=== PATIENT | female | born 1965 | race Caucasian/White ===

== ENCOUNTER 2016-12-18 16:56 | Emergency (ER) | payer MEDICARE, MEDICAID ==
[~2016-12-18] VITALS: Ht 154.9 cm; Wt 77.1 kg
[~2016-12-18 16:56] MED LIST: AGM875T PO; ALBU17AE3 IH; ALPR1T GT; ALPR1TAB2 PO; AMOX500C2 PO; ASEN10TA9 SL; ASP81TEC PO; ASPI325T32 PO; AZIT-21 PO; AZIT1PAC8 PO; AZIT250T5; AZTH250C PO; CEFU250T11 PO; CEPH-38 PO; CLON0.5T3 PO; CLON1TAB3 PO; CLON2TAB16; CODE120S3 PO; CYCL10TA9 PO; HYDR1TAB PO; LORA1TAB PO; METO-333 PO; NITR-65 PO; OMEP20CA12 PO; OXYC-188 PO; OXYC-465 PO; PANT40TA3; PRED5TAB; QTP25T PO; RAME8T PO; ZPR80C PO; [UNRECOGNIZED DRUG - CODE] PO; sleeping pill
--- NOTE | 2016-12-18 18:14 | ED Dyspnea ---
General Chief Complaint: Cough/Cold/Flu Symptoms Stated Complaint: RATTLING IN CHEST WHEN BREATHING/SOB Nursing Triage Note: PT C/O COUGH, SOA STARTING LAST NIGHT. Source of Information: Patient, RN Notes Reviewed Exam Limitations: No Limitations History of Present Illness Time Seen by Provider: 18:14 Initial Comments As above. (+) smoker. Actually wanted to go outside and smoke while back in an exam room. No known fever. Cough non-productive. Timing/Duration: 24 Hours Severity: Moderate Activities at Onset: None Prior Episodes/Possible Cause: Other (smoker) Modifying Factors: Worse With Activity, Worse With Coughing Associated Symptoms: Cough, Fever, Wheezing ("rattle") Allergies and Home Medications Allergies Coded Allergies: Sulfa (Sulfonamide Antibiotics) (Verified Allergy, Unknown, 04/18/06) hydrocodone (Verified Adverse Reaction, Unknown, SICK TO STOMACH, 02/02/14) Home Medications Albuterol Sulfate 8.5 Gm Hfa.aer.ad #1 1-2 PUFF IH Q4H PRN PRN SOA/COUGH/ WHEEZING Prescribed by: GABRIELA PRYOR on 12/18/161951 Prednisone 20 Mg Tab 5Days 30 MG PO BID Prescribed by: GABRIELA PRYOR on 12/18/161951 Constitutional: see HPINo fever Respiratory: see HPI cough dyspnea on exertion short of breath wheezing : No All Other Systems Reviewed Negative Unless Noted: Yes (Negative excepted noted.) Past Wezyqcv-Upseiy-Gdcqnx Hx Patient Social History Alcohol Use: Denies Use Recreational Drug Use: No Smoking Status: Current Everyday Smoker Type Used: Cigarettes Recent Foreign Travel: No Contact w/Someone Who Travel: No Recent Infectious Disease Expo: No Recent Hopitalizations: No Seasonal Allergies Seasonal Allergies: No Surgeries HX Surgeries: Yes (R THR, x 4) Surgeries: Section, 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, Joint Replacement Respiratory Hx Respiratory Disorders: Yes Respiratory Disorders: COPD Cardiovascular Hx Cardiac Disorders: Yes Cardiac Disorders: High Cholesterol Neurological Hx Neurological Disorders: No 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 System Hx 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 Disorders: No Sexually Transmitted Disease: No 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 Hx 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 Disorders: No Gastrointestinal Hx Gastrointestinal Disorders: No Musculoskeletal Hx Musculoskeletal Disorders: No Musculoskeletal Disorders: Arthritis, Scoliosis, Chronic Back Pain, Fractures Endocrine Hx Endocrine Disorders: No (maybe borderline DM) HEENT HX ENT Disorders: No (DENTURES) Cancer Hx Cancer: No Psychosocial Hx Psychiatric Problems: Yes Behavioral Health Disorders: Anxiety Integumentary HX Skin/Integumentary Disorder: No Blood Transfusions Hx Blood Disorders: No Adverse Reaction to a Blood Tr: No Family Medical History Significant Family History: No Pertinent Family Hx, Psychiatric Problems Physical Exam Vital Signs Vital Sign - Last 12Hours 12/18/16 12/18/16 12/18/16 17:12 17:30 20:06 Temp 98.4 Pulse 88 Resp 16 B/P 134/83 Pulse Ox 98 O2 Delivery Room Air Capillary Refill : Less Than 3 Seconds General Appearance: No Apparent Distress WD/WN HEENT: Normal ENT Inspection Neck: Normal Inspection Respiratory: No Respiratory Distress Decreased Breath Sounds Cardiovascular: Regular Rate, Rhythm Rectal: Deferred Neurologic/Psychiatric: Alert Oriented x3 No Motor/Sensory Deficits Normal Mood/Affect Skin: Warm/Dry Progress/Results/Core Measures Results/Orders Lab Results Laboratory Tests Test 12/18/16 18:29 Range/Units Basophils # (Auto) 0.0 0.0-0.1 10^3/uL Basophils (%) (Auto) 0 0-10 % Eosinophils # (Auto) 0.4 H 0.0-0.3 10^3/uL Eosinophils (%) (Auto) 5 0-10 % Hematocrit 42 35-52 % Hemoglobin 14.7 11.5-16.0 G/DL Lymphocytes # (Auto) 1.1 1.0-4.0 X 10^3 Lymphocytes (%) (Auto) 15 12-44 % Mean Corpuscular Hemoglobin 32 25-34 PG Mean Corpuscular Hemoglobin Concent 35 32-36 G/DL Mean Corpuscular Volume 91 80-99 FL Mean Platelet Volume 9.3 7.4-10.4 FL Monocytes # (Auto) 0.8 0.0-1.0 X 10^3 Monocytes (%) (Auto) 11 0-12 % Neutrophils # (Auto) 4.9 1.8-7.8 X 10^3 Neutrophils (%) (Auto) 69 42-75 % Platelet Count 217 130-400 10^3/uL Red Blood Count 4.62 4.35-5.85 10^6/uL Red Cell Distribution Width 12.5 10.0-14.5 % White Blood Count 7.1 4.3-11.0 10^3/uL My Orders Orders-ROYA,GABRIELA D DO Chest Pa/Lat (2 View) (12/18/16 18:12) Cbc With Automated Diff (12/18/16 18:12) Albuterol/Ipra Inhalation Soln (Duoneb I (12/18/16 19:45) Svn Sm Volume Nebulizer Rt-Rfs (12/18/16 19:33) Dexamethasone Pf Injection (Decadron Pf (12/18/16 19:45) Vital Signs/I&O Vital Sign - Last 12Hours 12/18/16 12/18/16 12/18/16 12/18/16 17:12 17:30 20:06 20:16 Temp 98.4 98.4 Pulse 88 94 Resp 16 16 B/P 134/83 Pulse Ox 98 99 O2 Delivery Room Air Blood Pressure Mean: 100 Progress Note : Progress Note Better p/ neb treatment Diagnostic Imaging Diagonstic Imaging: Xray Plain Films/CT/US/NM/MRI: chest (nothing acute) Departure Impression Impression: Primary Impression: Acute asthmatic bronchitis Additional Impression: Tobacco abuse Disposition: 01 HOME, SELF-CARE Condition: Stable Departure-Patient Inst. Decision time for Depature: 19:50 Referrals: ROMY PULIDO MD (PCP/Family) Primary Care Physician Patient Instructions: Acute Bronchitis, Adult (DC) Add. Discharge Instructions: All discharge instructions reviewed with patient and/or family. Voiced understanding. NEED TO STOP SMOKING! Scripts Prednisone 20 Mg Tab30 Mg PO BID 5 Days Ref 0 Prov:GABRIELA PRYOR DO 12/18/16 Albuterol Sulfate (Ventolin Hfa Common Canister)8.5 Gm Hfa.aer.ad1-2 Puff IH Q4H PRN SOA/COUGH/WHEEZING #1 INH Ref 0 Prov:GABRIELA PRYOR DO 12/18/16 GABRIELA PRYOR DO Dec 18, 2016 18:14
[2016-12-18 18:36] LABS: BASOPHILS % (AUTO) 0 % (0-10); EOSINOPHILS # (AUTO) 0.4 10^3/uL (0.0-0.3); EOSINOPHILS % (AUTO) 5 % (0-10); LYMPHOCYTES # (AUTO) 1.1 X 10^3 (1.0-4.0); LYMPHOCYTES % (AUTO) 15 % (12-44); MEAN CORPUSCULAR HEMOGLOBIN 32 PG (25-34); MEAN CORPUSCULAR HGB CONC 35 G/DL (32-36); MEAN CORPUSCULAR VOLUME 91 FL (80-99); MEAN PLATELET VOLUME 9.3 FL (7.4-10.4); MONOCYTES # (AUTO) 0.8 X 10^3 (0.0-1.0); MONOCYTES % (AUTO) 11 % (0-12); NEUTROPHILS # (AUTO) 4.9 X 10^3 (1.8-7.8); NEUTROPHILS % (AUTO) 69 % (42-75); PLATELET COUNT 217 10^3/uL (130-400); RED BLOOD COUNT 4.62 10^6/uL (4.35-5.85); RED CELL DISTRIBUTION WIDTH 12.5 % (10.0-14.5); WHITE BLOOD COUNT 7.1 10^3/uL (4.3-11.0)
--- NOTE | 2016-12-18 19:34 | Diagnostic Imaging Report ---
INDICATION: Cough. COMPARISON: 10/29/16. FINDINGS: Frontal and lateral views of the chest demonstrate clear lungs bilaterally. The heart size is normal. There is no pneumothorax. Osseous structures are normal. IMPRESSION: Negative chest. Dictated by: Dictated on workstation # [id number]
[2016-12-18] MEDS ORDERED: DEXAMETHASONE PF 10 MG/ML (DECADRON) VIAL IM ONE (19:45)
[2016-12-18] MEDS ORDERED: RT-ALBUTEROL/IPRATROPIUM 3 ML (DUONEB) VIAL INH ONE (19:45)
[2016-12-18] MEDS ORDERED: PRD20T PO (19:52)
[2016-12-18] MEDS ORDERED: RT-ALBUINH IH (19:52)
[2016-12-18 20:16] VITALS: BP 128/75
== END 2016-12-18 20:15 | disposition home or self-care (01) ==
LOC: EDUNIT# 16:56 → ER 16:58
DX: J45.909 Unspecified asthma, uncomplicated (principal); F17.210 Nicotine dependence, cigarettes, uncomplicated; J44.9 Chronic obstructive pulmonary disease, unspecified
CPT/HCPCS: 36415; 71020; 85025; 94640; 99282

== ENCOUNTER 2016-12-22 03:25 | Emergency (ER) | payer MEDICARE, MEDICAID ==
[~2016-12-22] VITALS: Ht 157.5 cm; Wt 79.4 kg
[~2016-12-22 03:25] MED LIST changes: +PRD20T PO; +RT-ALBUINH IH
[2016-12-22 03:39] LABS: BASOPHILS % (AUTO) 1 % (0-10); EOSINOPHILS # (AUTO) 0.5 10^3/uL (0.0-0.3); EOSINOPHILS % (AUTO) 6 % (0-10); LYMPHOCYTES # (AUTO) 3.3 X 10^3 (1.0-4.0); LYMPHOCYTES % (AUTO) 42 % (12-44); MEAN CORPUSCULAR HEMOGLOBIN 32 PG (25-34); MEAN CORPUSCULAR HGB CONC 36 G/DL (32-36); MEAN CORPUSCULAR VOLUME 90 FL (80-99); MEAN PLATELET VOLUME 9.6 FL (7.4-10.4); MONOCYTES # (AUTO) 0.6 X 10^3 (0.0-1.0); MONOCYTES % (AUTO) 8 % (0-12); NEUTROPHILS # (AUTO) 3.3 X 10^3 (1.8-7.8); NEUTROPHILS % (AUTO) 43 % (42-75); PLATELET COUNT 236 10^3/uL (130-400); RED BLOOD COUNT 5.09 10^6/uL (4.35-5.85); RED CELL DISTRIBUTION WIDTH 12.6 % (10.0-14.5); WHITE BLOOD COUNT 7.7 10^3/uL (4.3-11.0)
[2016-12-22] MEDS ORDERED: RX-NITROGLYCERIN 0.4 MG TAB BTL 25'S SL PRN (03:45)
[2016-12-22] MEDS ORDERED: ASPIRIN 81 MG CHEW (CHILDREN'S ASA) PO ONE (03:45)
[2016-12-22 03:55] LABS: INR 0.9 (0.8-1.4); PROTHROMBIN TIME PATIENT 12.1 SEC (12.2-14.7)
[2016-12-22 04:12] LABS: ALANINE AMINOTRANSFERASE 79 U/L (0-55); ALBUMIN 4.5 G/DL (3.2-4.5); AMYLASE 43 U/L (25-125); ANION GAP 13 MMOL/L (5-14); ASPARTATE AMINO TRANSFERASE 31 U/L (5-34); BILIRUBIN,TOTAL 0.5 MG/DL (0.1-1.0); BLOOD UREA NITROGEN 12 MG/DL (7-18); BUN/CREATININE RATIO 14; CALCIUM 9.7 MG/DL (8.5-10.1); CARBON DIOXIDE 20 MMOL/L (21-32); CHLORIDE 104 MMOL/L (98-107); CREATINE KINASE 63 U/L (29-168); CREATININE SERUM 0.85 MG/DL (0.60-1.30); GFR ESTIMATED > 60; GLUCOSE 165 MG/DL (70-105); LIPASE 57 U/L (8-78); MAGNESIUM 2.4 MG/DL (1.8-2.4); POTASSIUM 3.6 MMOL/L (3.6-5.0); SODIUM 137 MMOL/L (135-145); TOTAL PROTEIN 7.7 G/DL (6.4-8.2)
[2016-12-22 04:16] LABS: ALCOHOL < 10 MG/DL (<10)
[2016-12-22 04:21] LABS: TROPONIN I < 0.30 NG/ML (<0.30)
[2016-12-22] MEDS ORDERED: NS 100 ML (IVPB) BAG IV ONE (05:15)
[2016-12-22] MEDS ORDERED: IOHEXOL 350 MG/ML 150 ML (OMNIPAQUE 350) VIAL IV ONE (05:15)
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
[2016-12-22 05:55] VITALS: BP 122/67
--- NOTE | 2016-12-22 06:27 | Diagnostic Imaging Report ---
PROCEDURE: CT angiography of the chest with contrast. TECHNIQUE: Multiple contiguous axial images were obtained through the chest after uneventful bolus administration of intravenous contrast. Reconstructed CTA MIP acquisitions were also performed. INDICATION: Chest pain The aorta appears normal. There are no pulmonary emboli. Lungs are clear. There are no effusions or pneumothoraces. There is no hilar or mediastinal lymphadenopathy. IMPRESSION: Negative CTA chest. I agree with preliminary interpretation. Dictated by: Dictated on workstation # [id number]
--- NOTE | 2016-12-22 06:33 | Diagnostic Imaging Report ---
INDICATION: Chest pain. Portable chest 3:45 AM FINDINGS: There is scoliosis of the thoracic spine convex to the right. Heart size and pulmonary vascularity are normal. Lungs are clear. There are no effusions or pneumothoraces. IMPRESSION: No acute abnormalities in the chest. Dictated by: Dictated on workstation # [id number]
== END 2016-12-22 05:55 | disposition home or self-care (01) ==
LOC: EDUNIT# 03:25 → ER 03:27
DX: R07.89 Other chest pain (principal); F41.9 Anxiety disorder, unspecified; I10 Essential (primary) hypertension; J44.9 Chronic obstructive pulmonary disease, unspecified; F17.210 Nicotine dependence, cigarettes, uncomplicated
CPT/HCPCS: 36415; 71010; 71275; 80053; 80306; 80320; 82150; 82550; 82553; 83690; 83735; 83880; 84484; 85025; 85610; 85730; 93005

== ENCOUNTER 2017-01-15 00:10 | Emergency (ER) | payer MEDICARE, MEDICAID ==
[~2017-01-15] VITALS: Ht 154.9 cm; Wt 72.6 kg
--- NOTE | 2017-01-15 00:39 | ED General ---
General Chief Complaint: General Problems/Pain Stated Complaint: DIZZY BS HEART RATE Nursing Triage Note: c/o dry mouth. stopped taking metformin 2 days ago Nursing Sepsis Screen: No Definite Risk Source of Information: Patient Exam Limitations: No Limitations History of Present Illness Time Seen by Provider: 00:37 Initial Comments Patient complains of dizziness lightheadedness for "a while". Her doctor recently started her on metformin for diabetes. She took it for 2 days and stopped it because she thought that may be adding to her dizziness. She also complains of a dry mouth. She has intermittent palpitations. Allergies and Home Medications Allergies Coded Allergies: Sulfa (Sulfonamide Antibiotics) (Verified Allergy, Unknown, 04/18/06) hydrocodone (Verified Adverse Reaction, Unknown, SICK TO STOMACH, 02/02/14) Home Medications No Active Prescriptions or Reported Meds Constitutional: dizzinessNo fever, malaise weakness EENTM: see HPI Respiratory: no symptoms reported Cardiovascular: palpitations Gastrointestinal: no symptoms reported 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: no symptoms reported Skin: no symptoms reported All Other Systems Reviewed Negative Unless Noted: Yes Past Hcejonj-Jcdpxc-Qhxjgi Hx Patient Social History Alcohol Use: Denies Use Recreational Drug Use: No Smoking Status: Current Everyday Smoker Type Used: Cigarettes 2nd Hand Smoke Exposure: Yes Recent Foreign Travel: No Contact w/Someone Who Travel: No Recent Infectious Disease Expo: No Recent Hopitalizations: No Seasonal Allergies Seasonal Allergies: No Surgeries HX Surgeries: Yes Surgeries: Section, 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, Joint Replacement, Orthopedic Respiratory Hx Respiratory Disorders: Yes Respiratory Disorders: COPD, Emphysema Cardiovascular Hx Cardiac Disorders: Yes Cardiac Disorders: Hypertension, Palpitations Neurological Hx Neurological Disorders: Yes (RESTLESS LEG SYNDROME) 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 System Hx 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 Disorders: No Sexually Transmitted Disease: 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 Hx 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 Disorders: No Gastrointestinal Hx Gastrointestinal Disorders: No Musculoskeletal Hx Musculoskeletal Disorders: Yes (RESTLESS LEG SYNDROME; RIGHT HIP FX/ REPLACEMENT) Musculoskeletal Disorders: Arthritis, Scoliosis, Chronic Back Pain, Fractures Endocrine Hx Endocrine Disorders: Yes Endocrine Disorders: Diabetes, Non-Insulin dep HEENT HX ENT Disorders: No (DENTURES) Cancer Hx Cancer: No Psychosocial Hx Psychiatric Problems: Yes Behavioral Health Disorders: Sleep Difficulties, Anxiety, Bipolar, Depression Integumentary HX Skin/Integumentary Disorder: No Blood Transfusions Hx Blood Disorders: No Adverse Reaction to a Blood Tr: No Reviewed Nursing Assessment Reviewed/Agree w Nursing PMH: Yes Family Medical History Significant Family History: No Pertinent Family Hx, Psychiatric Problems Physical Exam Vital Signs Vital Sign - Last 12Hours 01/15/17 00:22 Temp 98.1 Pulse 99 Resp 18 B/P 130/78 Pulse Ox 96 O2 Delivery Room Air Capillary Refill : Less Than 3 Seconds General Appearance: No Apparent Distress WD/WN Eyes: Bilateral Eye EOMI, Bilateral Eye PERRL HEENT: Pharynx Normal Neck: Supple Respiratory: Lungs Clear Normal Breath Sounds Cardiovascular: Regular Rate, Rhythm Gastrointestinal: Non Tender Soft Extremity: Normal Inspection Neurologic/Psychiatric: Alert No Motor/Sensory Deficits Skin: Normal Color Warm/Dry Progress/Results/Core Measures Results/Orders Lab Results Laboratory Tests Test 01/15/17 00:30 01/15/17 00:55 Range/Units Glucometer 196 H 70-110 MG/DL Anion Gap 12 5-14 MMOL/L BUN/Creatinine Ratio 21 Basophils # (Auto) 0.0 0.0-0.1 10^3/uL Basophils (%) (Auto) 0 0-10 % Blood Urea Nitrogen 15 7-18 MG/DL Calcium Level 9.4 8.5-10.1 MG/DL Carbon Dioxide Level 21 21-32 MMOL/L Chloride Level 105 98-107 MMOL/L Creatinine 0.70 0.60-1.30 MG/DL Eosinophils # (Auto) 0.3 0.0-0.3 10^3/uL Eosinophils (%) (Auto) 3 0-10 % Estimat Glomerular Filtration Rate > 60 Glucose Level 179 H 70-105 MG/DL Hematocrit 42 35-52 % Hemoglobin 14.9 11.5-16.0 G/DL Lymphocytes # (Auto) 1.6 1.0-4.0 X 10^3 Lymphocytes (%) (Auto) 16 12-44 % Mean Corpuscular Hemoglobin 32 25-34 PG Mean Corpuscular Hemoglobin Concent 35 32-36 G/DL Mean Corpuscular Volume 90 80-99 FL Mean Platelet Volume 9.3 7.4-10.4 FL Monocytes # (Auto) 0.7 0.0-1.0 X 10^3 Monocytes (%) (Auto) 8 0-12 % Neutrophils # (Auto) 7.0 1.8-7.8 X 10^3 Neutrophils (%) (Auto) 73 42-75 % Platelet Count 243 130-400 10^3/uL Potassium Level 4.0 3.6-5.0 MMOL/L Red Blood Count 4.72 4.35-5.85 10^6/uL Red Cell Distribution Width 12.6 10.0-14.5 % Sodium Level 138 135-145 MMOL/L White Blood Count 9.5 4.3-11.0 10^3/uL My Orders Orders-MERON WEATHERS MD Basic Metabolic Panel (01/15/17 00:37) Cbc With Automated Diff (01/15/17 00:37) Vital Signs/I&O Vital Sign - Last 12Hours 01/15/17 00:22 Temp 98.1 Pulse 99 Resp 18 B/P 130/78 Pulse Ox 96 O2 Delivery Room Air Blood Pressure Mean: 95 Progress Note : Time: 01:33 Progress Note Lab findings discussed with patient. I recommended that she restart her metformin. She she should follow-up with her primary care physician later this week. Departure Impression Impression: Primary Impression: Diabetes mellitus with hyperglycemia Additional Impression: Dizziness Disposition: 01 HOME, SELF-CARE Condition: Stable Departure-Patient Inst. Decision time for Depature: 01:33 Referrals: ROMY PULIDO MD (PCP/Family) Primary Care Physician Patient Instructions: Type 2 Diabetes Scripts No Active Prescriptions or Reported Meds MERON WEATHERS MD Jan 15, 2017 00:39
[2017-01-15 01:03] LABS: BASOPHILS % (AUTO) 0 % (0-10); EOSINOPHILS # (AUTO) 0.3 10^3/uL (0.0-0.3); EOSINOPHILS % (AUTO) 3 % (0-10); LYMPHOCYTES # (AUTO) 1.6 X 10^3 (1.0-4.0); LYMPHOCYTES % (AUTO) 16 % (12-44); MEAN CORPUSCULAR HEMOGLOBIN 32 PG (25-34); MEAN CORPUSCULAR HGB CONC 35 G/DL (32-36); MEAN CORPUSCULAR VOLUME 90 FL (80-99); MEAN PLATELET VOLUME 9.3 FL (7.4-10.4); MONOCYTES # (AUTO) 0.7 X 10^3 (0.0-1.0); MONOCYTES % (AUTO) 8 % (0-12); NEUTROPHILS % (AUTO) 73 % (42-75); PLATELET COUNT 243 10^3/uL (130-400); RED BLOOD COUNT 4.72 10^6/uL (4.35-5.85); RED CELL DISTRIBUTION WIDTH 12.6 % (10.0-14.5); WHITE BLOOD COUNT 9.5 10^3/uL (4.3-11.0)
[2017-01-15 01:24] LABS: ANION GAP 12 MMOL/L (5-14); BLOOD UREA NITROGEN 15 MG/DL (7-18); BUN/CREATININE RATIO 21; CALCIUM 9.4 MG/DL (8.5-10.1); CARBON DIOXIDE 21 MMOL/L (21-32); CHLORIDE 105 MMOL/L (98-107); GFR ESTIMATED > 60; GLUCOSE 179 MG/DL (70-105); SODIUM 138 MMOL/L (135-145)
[2017-01-15 01:37] VITALS: BP 130/78
== END 2017-01-15 01:37 | disposition home or self-care (01) ==
LOC: EDUNIT# 00:10 → ER 00:15
DX: R42 Dizziness and giddiness (principal); E11.65 Type 2 diabetes mellitus with hyperglycemia; I10 Essential (primary) hypertension; J44.9 Chronic obstructive pulmonary disease, unspecified; Z79.84 Long term (current) use of oral hypoglycemic drugs; Z79.899 Other long term (current) drug therapy
CPT/HCPCS: 36415; 80048; 82962; 85025; 99282

== ENCOUNTER 2017-01-25 02:02 | Emergency (ER) | payer MEDICARE, MEDICAID ==
[~2017-01-25] VITALS: Ht 154.9 cm; Wt 72.6 kg
[2017-01-25] MEDS ORDERED: HYDR-700 PO (02:18)
[2017-01-25] MEDS ORDERED: METF500T8 PO (02:18)
[2017-01-25 02:23] LABS: BASOPHILS % (AUTO) 0 % (0-10); EOSINOPHILS # (AUTO) 0.4 10^3/uL (0.0-0.3); EOSINOPHILS % (AUTO) 4 % (0-10); LYMPHOCYTES # (AUTO) 2.5 X 10^3 (1.0-4.0); LYMPHOCYTES % (AUTO) 23 % (12-44); MEAN CORPUSCULAR HEMOGLOBIN 32 PG (25-34); MEAN CORPUSCULAR HGB CONC 36 G/DL (32-36); MEAN CORPUSCULAR VOLUME 89 FL (80-99); MEAN PLATELET VOLUME 9.1 FL (7.4-10.4); MONOCYTES # (AUTO) 0.8 X 10^3 (0.0-1.0); MONOCYTES % (AUTO) 7 % (0-12); NEUTROPHILS % (AUTO) 65 % (42-75); PLATELET COUNT 255 10^3/uL (130-400); RED BLOOD COUNT 4.87 10^6/uL (4.35-5.85); RED CELL DISTRIBUTION WIDTH 12.5 % (10.0-14.5); WHITE BLOOD COUNT 10.8 10^3/uL (4.3-11.0)
[2017-01-25 02:40] LABS: ALANINE AMINOTRANSFERASE 49 U/L (0-55); ALBUMIN 4.1 G/DL (3.2-4.5); AMYLASE 35 U/L (25-125); ANION GAP 13 MMOL/L (5-14); ASPARTATE AMINO TRANSFERASE 27 U/L (5-34); BILIRUBIN,TOTAL 0.4 MG/DL (0.1-1.0); BLOOD UREA NITROGEN 10 MG/DL (7-18); BUN/CREATININE RATIO 13; CALCIUM 9.5 MG/DL (8.5-10.1); CARBON DIOXIDE 21 MMOL/L (21-32); CHLORIDE 105 MMOL/L (98-107); CREATINE KINASE 63 U/L (29-168); CREATININE SERUM 0.79 MG/DL (0.60-1.30); GFR ESTIMATED > 60; GLUCOSE 149 MG/DL (70-105); LIPASE 26 U/L (8-78); MAGNESIUM 2.1 MG/DL (1.8-2.4); POTASSIUM 3.8 MMOL/L (3.6-5.0); SODIUM 139 MMOL/L (135-145); TOTAL PROTEIN 6.9 G/DL (6.4-8.2)
[2017-01-25 02:45] LABS: ALCOHOL < 10 MG/DL (<10)
[2017-01-25 02:47] LABS: TROPONIN I < 0.30 NG/ML (<0.30)
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
[2017-01-25 03:27] VITALS: BP 100/67
--- NOTE | 2017-01-25 08:20 | Diagnostic Imaging Report ---
INDICATION: Chest pain, feels anxious. Comparison study: Chest 12/22/2016. FINDINGS: Frontal view of the chest demonstrates the lungs to be clear. The heart, mediastinum, pulmonary vascularity are normal. Scoliosis is stable. IMPRESSION: There are no acute findings. Dictated by: Dictated on workstation # [id number]
--- OUTSIDE RECORDS SUMMARY | 2017-01-28 06:09 | XMS REPORT ---
Author ROMY Montalvo [facility] e[employer] Address Unknown Phone Unavailable Care Team Providers Care Investigative Shopper Name Role Phone ROMY PULIDO CP Unavailable Allergies No Known Allergies Problems Problem Type Condition Code Onset Dates Condition Status Problem Insomnia G47.00 Active Problem Major depressive disorder, recurrent episode, moderate F33.1 Active Problem Prediabetes R73.09 Active Problem Generalized anxiety disorder F41.1 Active Problem Low back pain M54.5 Active Medications No Known Medications Results No Known Results Summary Purpose eClinicalWorks Submission
--- OUTSIDE RECORDS SUMMARY | 2017-01-28 06:09 | XMS REPORT ---
Author ROMY Montalvo [facility] e[employer] Address Unknown Phone Unavailable Care Team Providers Care Fraud Manager Name Role Phone ROMY PULIDO CP Unavailable Allergies No Known Allergies Problems Problem Type Condition Code Onset Dates Condition Status Problem Major depressive disorder, recurrent episode, moderate F33.1 Active Problem Generalized anxiety disorder F41.1 Active Problem Insomnia G47.00 Active Problem Low back pain M54.5 Active Medications No Known Medications Results No Known Results Summary Purpose eClinicalWorks Submission
--- OUTSIDE RECORDS SUMMARY | 2017-01-28 06:11 | XMS REPORT | Continuity of Care Document ---
Author Author [facility] Address Unknown Phone Unavailable Allergies Active Description Code Type Severity Reaction Onset Reported/Identified Relationship to Patient Clinical Status Yes Sulfa (Sulfonamide Antibiotics) [id number] Drug Allergy Unknown N/A 04/18/2006 Yes sulfa drug Drug Allergy 03/18/2009 Yes codeine Drug Allergy N/A N/A 06/21/2010 Yes codeine Drug Allergy 06/21/2010 Yes naproxen Drug Allergy N/A N/A 07/28/2010 Yes naproxen Drug Allergy 07/28/2010 Yes Darvocet-N 100 Drug Allergy N/A N/A 08/23/2010 Yes Darvocet-N 100 Drug Allergy 08/23/2010 Yes Percocet 5/325 Drug Allergy 08/23/2010 Yes tramadol Drug Allergy N/A N/A 12/20/2010 Yes tramadol Drug Allergy 12/20/2010 Yes hydrocodone [id number] Drug Allergy Unknown SICK TO STOMACH 02/02/2014 Medications Problems Date Dx Coded Attending Type Code Diagnosis Diagnosed By 10/04/1140 ROMY PULIDO MD, Ot M54.5 LOW BACK PAIN 01/07/2009 YOEL GREEN DO 296.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 EPISODIC MOOD DISORDER 01/07/2009 YOEL GREEN DO 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 01/07/2009 YOEL GREEN DO 296.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 EPISODIC MOOD DISORDER 01/07/2009 YOEL GREEN DO 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 01/07/2009 DENZEL CHILEL MD 296.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 EPISODIC MOOD DISORDER 01/07/2009 DENZEL CHILEL MD 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 01/07/2009 YOEL GREEN DO 296.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 EPISODIC MOOD DISORDER 01/07/2009 YOEL GREEN DO 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 01/07/2009 DENZEL CHILEL MD 296.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 EPISODIC MOOD DISORDER 01/07/2009 GETACHEW ADAMS, DENZEL 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 01/07/2009 YOEL GREEN DO F 296.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 EPISODIC MOOD DISORDER 01/07/2009 YOEL GREEN DO F 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 01/07/2009 296.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 EPISODIC MOOD DISORDER 01/07/2009 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 01/07/2009 296.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 EPISODIC MOOD DISORDER 01/07/2009 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 01/07/2009 296.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 EPISODIC MOOD DISORDER 01/07/2009 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 01/07/2009 296.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 EPISODIC MOOD DISORDER 01/07/2009 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 01/07/2009 YOEL GREEN DO F 296.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 EPISODIC MOOD DISORDER 01/07/2009 YOEL GREEN DO 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 01/07/2009 DENZEL CHILEL MD 296.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 EPISODIC MOOD DISORDER 01/07/2009 DENZEL CHILEL MD 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 01/07/2009 GETACHEW ADAMS, DENZEL 296.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 EPISODIC MOOD DISORDER 01/07/2009 GETACHEW ADAMS, DENZEL 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 01/07/2009 GETACHEW ADAMS, DENZEL 296.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 EPISODIC MOOD DISORDER 01/07/2009 DENZEL CHILEL MD 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 01/07/2009 DENZEL CHILEL MD 296.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 EPISODIC MOOD DISORDER 01/07/2009 DENZEL CHILEL MD 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 01/07/2009 DENZEL CHILEL MD 296.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 EPISODIC MOOD DISORDER 01/07/2009 DENZEL CHILEL MD 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 01/07/2009 GETACHEW ADAMS, DENZEL 296.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 EPISODIC MOOD DISORDER 01/07/2009 GETACHEW ADAMS, DENZEL 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 01/07/2009 DENZEL CHILEL MD 296.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 EPISODIC MOOD DISORDER 01/07/2009 DENZEL CHILEL MD 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 02/08/2009 WERDER DO, YOEL F 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 02/08/2009 WERDER DO, YOEL F 300.00 An Anxiety Unspec 02/08/2009 WERDER DO, YOEL F 301.83 Pd Borderline 02/08/2009 WERDER DO, YOEL F 304.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 02/08/2009 WERDER DO, YOEL F 311 Mo Depress Nos 02/08/2009 WERDER DO, YOEL F 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 02/08/2009 WERDER DO, YOEL F 300.00 An Anxiety Unspec 02/08/2009 WERDER DO, YOEL F 301.83 Pd Borderline 02/08/2009 WERDER DO, YOEL F 304.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 02/08/2009 WERDER DO, YOEL F 311 Mo Depress Nos 02/08/2009 DENZEL CHILEL MD 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 02/08/2009 DENZEL CHILEL MD 300.00 An Anxiety Unspec 02/08/2009 DENZEL CHILEL MD 301.83 Pd Borderline 02/08/2009 DENZEL CHILEL MD 304.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 02/08/2009 DENZEL CHILEL MD 311 Mo Depress Nos 02/08/2009 DANDYDER DO YOEL F 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 02/08/2009 DANDYDER DO, YOEL F 300.00 An Anxiety Unspec 02/08/2009 DANDYDER DO YOEL F 301.83 Pd Borderline 02/08/2009 DANDYDER DO, YOEL F 304.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 02/08/2009 YOEL GREEN DO F 311 Mo Depress Nos 02/08/2009 DENZEL CHILEL MD 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 02/08/2009 DENZEL CHILEL MD 300.00 An Anxiety Unspec 02/08/2009 DENZEL CHILEL MD 301.83 Pd Borderline 02/08/2009 DENZEL CHILEL MD 304.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 02/08/2009 DENZEL CHILEL MD 311 Mo Depress Nos 02/08/2009 WERDER DO YOEL F 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 02/08/2009 WERDER DO, YOEL F 300.00 An Anxiety Unspec 02/08/2009 WERDER DO, YOEL F 301.83 Pd Borderline 02/08/2009 WERDER DO, YOEL F 304.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 02/08/2009 WERDER DO, YOEL F 311 Mo Depress Nos 02/08/2009 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 02/08/2009 300.00 An Anxiety Unspec 02/08/2009 301.83 Pd Borderline 02/08/2009 304.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 02/08/2009 311 Mo Depress Nos 02/08/2009 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 02/08/2009 300.00 An Anxiety Unspec 02/08/2009 301.83 Pd Borderline 02/08/2009 304.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 02/08/2009 311 Mo Depress Nos 02/08/2009 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 02/08/2009 300.00 An Anxiety Unspec 02/08/2009 301.83 Pd Borderline 02/08/2009 304.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 02/08/2009 311 Mo Depress Nos 02/08/2009 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 02/08/2009 300.00 An Anxiety Unspec 02/08/2009 301.83 Pd Borderline 02/08/2009 304.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 02/08/2009 311 Mo Depress Nos 02/08/2009 YOEL GREEN DO 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 02/08/2009 NORMA YOEL F 300.00 An Anxiety Unspec 02/08/2009 YOEL GREEN DO F 301.83 Pd Borderline 02/08/2009 YOEL GREEN DO F 304.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 02/08/2009 YOEL GREEN DO F 311 Mo Depress Nos 02/08/2009 DENZEL CHILEL MD 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 02/08/2009 DENZEL CHILEL MD 300.00 An Anxiety Unspec 02/08/2009 DENZEL CHILEL MD 301.83 Pd Borderline 02/08/2009 DENZEL CHILEL MD 304.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 02/08/2009 DENZEL CHILEL MD 311 Mo Depress Nos 02/08/2009 DENZEL CHILEL MD 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 02/08/2009 DENZEL CHILEL MD 300.00 An Anxiety Unspec 02/08/2009 DENZEL CHILEL MD 301.83 Pd Borderline 02/08/2009 DENZEL CHILEL MD 304.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 02/08/2009 DENZEL CHILEL MD 311 Mo Depress Nos 02/08/2009 DENZEL CHILEL MD 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 02/08/2009 DENZEL CHILEL MD 300.00 An Anxiety Unspec 02/08/2009 GETACHEW ADAMS, DENZEL 301.83 Pd Borderline 02/08/2009 GETACHEW ADAMS, DENZEL 304.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 02/08/2009 GETACHEW ADAMS, DENZEL 311 Mo Depress Nos 02/08/2009 GETACHEW ADAMS, DENZEL 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 02/08/2009 GETACHEW ADAMS, DENZEL 300.00 An Anxiety Unspec 02/08/2009 GETACHEW ADAMS, DENZEL 301.83 Pd Borderline 02/08/2009 DENZEL CHILEL MD 304.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 02/08/2009 DENZEL CHILEL MD 311 Mo Depress Nos 02/08/2009 GETACHEW ADAMS, DENZEL 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 02/08/2009 GETACHEW ADAMS, DENZEL 300.00 An Anxiety Unspec 02/08/2009 GETACHEW ADAMS, DENZEL 301.83 Pd Borderline 02/08/2009 DENZEL CHILEL MD 304.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 02/08/2009 DENZEL CHILEL MD 311 Mo Depress Nos 02/08/2009 DENZEL CHILEL MD 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 02/08/2009 DENZEL CHILEL MD 300.00 An Anxiety Unspec 02/08/2009 GETACHEW ADAMS, DENZEL 301.83 Pd Borderline 02/08/2009 DENZEL CHILEL MD 304.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 02/08/2009 DENZEL CHILEL MD 311 Mo Depress Nos 02/08/2009 DENZEL CHILEL MD 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 02/08/2009 DENZEL CHILEL MD 300.00 An Anxiety Unspec 02/08/2009 DENZEL CHILEL MD 301.83 Pd Borderline 02/08/2009 DENZEL CHILEL MD 304.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 02/08/2009 DENZEL CHILEL MD 311 Mo Depress Nos 03/18/2009 YOEL GREEN DO F 466.0 ACUTE BRONCHITIS 03/18/2009 YOEL GREEN DO F 466.0 ACUTE BRONCHITIS 03/18/2009 DENZEL CHILEL MD 466.0 ACUTE BRONCHITIS 03/18/2009 YOEL GREEN DO F 466.0 ACUTE BRONCHITIS 03/18/2009 DENZEL CHILEL MD 466.0 ACUTE BRONCHITIS 03/18/2009 YOEL GREEN DO F 466.0 ACUTE BRONCHITIS 03/18/2009 466.0 ACUTE BRONCHITIS 03/18/2009 466.0 ACUTE BRONCHITIS 03/18/2009 466.0 ACUTE BRONCHITIS 03/18/2009 466.0 ACUTE BRONCHITIS 03/18/2009 YOEL GREEN DO 466.0 ACUTE BRONCHITIS 03/18/2009 GETACHEW ADAMS, DENZEL 466.0 ACUTE BRONCHITIS 03/18/2009 GETACHEW ADAMS, DENZEL 466.0 ACUTE BRONCHITIS 03/18/2009 GETACHEW ADAMS, DENZEL 466.0 ACUTE BRONCHITIS 03/18/2009 GETACHEW ADAMS, DENZEL 466.0 ACUTE BRONCHITIS 03/18/2009 GETACHEW ADAMS, DENZEL 466.0 ACUTE BRONCHITIS 03/18/2009 GETACHEW ADAMS, DENZEL 466.0 ACUTE BRONCHITIS 03/18/2009 GETACHEW ADAMS, DENZEL 466.0 ACUTE BRONCHITIS 04/22/2009 YOEL GREEN DO V15.82 Personal History Of Tobacco Use 04/22/2009 YOEL GREEN DO V17.3 Family History Of Ischemic Heart Disease 04/22/2009 YOEL GREEN DO V15.82 Personal History Of Tobacco Use 04/22/2009 YOEL GREEN DO V17.3 Family History Of Ischemic Heart Disease 04/22/2009 DENZEL CHILEL MD V15.82 Personal History Of Tobacco Use 04/22/2009 DENZEL CHILEL MD V17.3 Family History Of Ischemic Heart Disease 04/22/2009 YOEL GREEN DO V15.82 Personal History Of Tobacco Use 04/22/2009 YOEL GREEN DO V17.3 Family History Of Ischemic Heart Disease 04/22/2009 DENZEL CHILEL MD V15.82 Personal History Of Tobacco Use 04/22/2009 DENZEL CHILEL MD V17.3 Family History Of Ischemic Heart Disease 04/22/2009 YOEL GREEN DO V15.82 Personal History Of Tobacco Use 04/22/2009 YOEL GREEN DO V17.3 Family History Of Ischemic Heart Disease 04/22/2009 V15.82 Personal History Of Tobacco Use 04/22/2009 V17.3 Family History Of Ischemic Heart Disease 04/22/2009 V15.82 Personal History Of Tobacco Use 04/22/2009 V17.3 Family History Of Ischemic Heart Disease 04/22/2009 V15.82 Personal History Of Tobacco Use 04/22/2009 V17.3 Family History Of Ischemic Heart Disease 04/22/2009 V15.82 Personal History Of Tobacco Use 04/22/2009 V17.3 Family History Of Ischemic Heart Disease 04/22/2009 YOEL GREEN DO V15.82 Personal History Of Tobacco Use 04/22/2009 YOEL GREEN DO V17.3 Family History Of Ischemic Heart Disease 04/22/2009 GETACHEW ADAMS, DENZEL V15.82 Personal History Of Tobacco Use 04/22/2009 GETACHEW ADAMS, DENZEL V17.3 Family History Of Ischemic Heart Disease 04/22/2009 GETACHEW ADAMS, DENZEL V15.82 Personal History Of Tobacco Use 04/22/2009 GETACHEW ADAMS, DENZEL V17.3 Family History Of Ischemic Heart Disease 04/22/2009 GETACHEW ADAMS, DENZEL V15.82 Personal History Of Tobacco Use 04/22/2009 GETACHEW ADAMS, DENZEL V17.3 Family History Of Ischemic Heart Disease 04/22/2009 GETACHEW ADAMS, DENZEL V15.82 Personal History Of Tobacco Use 04/22/2009 GETACHEW ADAMS, DENZEL V17.3 Family History Of Ischemic Heart Disease 04/22/2009 GETACHEW ADAMS, DENZEL V15.82 Personal History Of Tobacco Use 04/22/2009 GETACHEW ADAMS, DEZNEL V17.3 Family History Of Ischemic Heart Disease 04/22/2009 GETACHEW ADAMS, DENZEL V15.82 Personal History Of Tobacco Use 04/22/2009 GETACHEW ADAMS, DENZEL V17.3 Family History Of Ischemic Heart Disease 04/22/2009 GETACHEW ADAMS, DENZEL V15.82 Personal History Of Tobacco Use 04/22/2009 GETACHEW ADAMS, DENZEL V17.3 Family History Of Ischemic Heart Disease 08/05/2009 YOEL GREEN DO V72.31 [employer] Exam, Routine 08/05/2009 YOEL GREEN DO V72.31 [employer] Exam, Routine 08/05/2009 DENZEL CHILEL MD V72.31 [employer] Exam, Routine 08/05/2009 YOEL GREEN DO V72.31 [employer] Exam, Routine 08/05/2009 DENZEL CHILEL MD V72.31 [employer] Exam, Routine 08/05/2009 YOEL GREEN DO V72.31 [employer] Exam, Routine 08/05/2009 V72.31 [employer] Exam, Routine 08/05/2009 V72.31 [employer] Exam, Routine 08/05/2009 V72.31 [employer] Exam, Routine 08/05/2009 V72.31 [employer] Exam, Routine 08/05/2009 YOEL GREEN DO V72.31 [employer] Exam, Routine 08/05/2009 GETACHEW ADAMS, DENZEL V72.31 [employer] Exam, Routine 08/05/2009 GETACHEW ADAMS, DENZEL V72.31 [employer] Exam, Routine 08/05/2009 GETACHEW ADAMS, DENZEL V72.31 [employer] Exam, Routine 08/05/2009 GETACHEW ADAMS, DENZEL V72.31 [employer] Exam, Routine 08/05/2009 GETACHEW ADAMS, DENZEL V72.31 [employer] Exam, Routine 08/05/2009 GETACHEW ADAMS, DENZEL V72.31 [employer] Exam, Routine 08/05/2009 GETACHEW ADAMS, DENZEL V72.31 [employer] Exam, Routine 12/02/2009 YOEL GREEN DO 305.1 Nicotine Dependence 12/02/2009 YOEL GREEN DO 780.4 Dizziness And Giddiness 12/02/2009 YOEL GREEN DO 305.1 Nicotine Dependence 12/02/2009 YOEL GREEN DO 780.4 Dizziness And Giddiness 12/02/2009 DENZEL CHILEL MD 305.1 Nicotine Dependence 12/02/2009 DENZEL CHILEL MD 780.4 Dizziness And Giddiness 12/02/2009 YOEL GREEN DO 305.1 Nicotine Dependence 12/02/2009 YOEL GREEN DO 780.4 Dizziness And Giddiness 12/02/2009 DENZEL CHILEL MD 305.1 Nicotine Dependence 12/02/2009 DENZEL CHILEL MD 780.4 Dizziness And Giddiness 12/02/2009 YOEL GREEN DO 305.1 Nicotine Dependence 12/02/2009 YOEL GREEN DO 780.4 Dizziness And Giddiness 12/02/2009 305.1 Nicotine Dependence 12/02/2009 780.4 Dizziness And Giddiness 12/02/2009 305.1 Nicotine Dependence 12/02/2009 780.4 Dizziness And Giddiness 12/02/2009 305.1 Nicotine Dependence 12/02/2009 780.4 Dizziness And Giddiness 12/02/2009 305.1 Nicotine Dependence 12/02/2009 780.4 Dizziness And Giddiness 12/02/2009 YOEL GEREN DO 305.1 Nicotine Dependence 12/02/2009 YOEL GREEN DO 780.4 Dizziness And Giddiness 12/02/2009 DENZEL CHILEL MD 305.1 Nicotine Dependence 12/02/2009 DENZEL CHILEL MD 780.4 Dizziness And Giddiness 12/02/2009 DENZEL CHILEL MD 305.1 Nicotine Dependence 12/02/2009 DENZEL CHILEL MD 780.4 Dizziness And Giddiness 12/02/2009 DENZEL CHILEL MD 305.1 Nicotine Dependence 12/02/2009 DENZEL CHILEL MD 780.4 Dizziness And Giddiness 12/02/2009 GETACHEW ADAMS, DENZEL 305.1 Nicotine Dependence 12/02/2009 DENZEL CHILEL MD 780.4 Dizziness And Giddiness 12/02/2009 DENZEL CHILEL MD 305.1 Nicotine Dependence 12/02/2009 DENZEL CHILEL MD 780.4 Dizziness And Giddiness 12/02/2009 DENZEL CHILEL MD 305.1 Nicotine Dependence 12/02/2009 DENZEL CHILEL MD 780.4 Dizziness And Giddiness 12/02/2009 DENZEL CHILEL MD 305.1 Nicotine Dependence 12/02/2009 DENZEL CHILEL MD 780.4 Dizziness And Giddiness 12/30/2009 YOEL GREEN DO 719.45 Pain In Joint, Pelvic Region And Thigh 12/30/2009 YOEL GREEN DO 719.45 Pain In Joint, Pelvic Region And Thigh 12/30/2009 DENZEL CHILEL MD 719.45 Pain In Joint, Pelvic Region And Thigh 12/30/2009 YOEL GREEN DO 719.45 Pain In Joint, Pelvic Region And Thigh 12/30/2009 DENZEL CHILEL MD 719.45 Pain In Joint, Pelvic Region And Thigh 12/30/2009 YOEL GREEN DO 719.45 Pain In Joint, Pelvic Region And Thigh 12/30/2009 719.45 Pain In Joint, Pelvic Region And Thigh 12/30/2009 719.45 Pain In Joint, Pelvic Region And Thigh 12/30/2009 719.45 Pain In Joint, Pelvic Region And Thigh 12/30/2009 719.45 Pain In Joint, Pelvic Region And Thigh 12/30/2009 YOEL GREEN DO 719.45 Pain In Joint, Pelvic Region And Thigh 12/30/2009 GETACHEW ADAMS, DENZEL 719.45 Pain In Joint, Pelvic Region And Thigh 12/30/2009 GETACHEW ADAMS, DENZEL 719.45 Pain In Joint, Pelvic Region And Thigh 12/30/2009 GETACHEW ADAMS, DENZEL 719.45 Pain In Joint, Pelvic Region And Thigh 12/30/2009 GETACHEW ADAMS, DENZEL 719.45 Pain In Joint, Pelvic Region And Thigh 12/30/2009 GETACHEW ADAMS, DENZEL 719.45 Pain In Joint, Pelvic Region And Thigh 12/30/2009 GETACHEW ADAMS, DENZEL Thomas9.45 Pain In Joint, Pelvic Region And Thigh 12/30/2009 GETACHEW ADAMS, DENZEL Thomas9.45 Pain In Joint, Pelvic Region And Thigh 02/15/2010 YOEL GREEN DO 724.5 Backache, Unspecified 02/15/2010 YOEL GREEN DO 724.5 Backache, Unspecified 02/15/2010 DENZEL CHILEL MD 724.5 Backache, Unspecified 02/15/2010 YOEL GREEN DO 724.5 Backache, Unspecified 02/15/2010 DENZEL CHILEL MD 724.5 Backache, Unspecified 02/15/2010 YOEL GREEN DO 724.5 Backache, Unspecified 02/15/2010 724.5 Backache, Unspecified 02/15/2010 724.5 Backache, Unspecified 02/15/2010 724.5 Backache, Unspecified 02/15/2010 724.5 Backache, Unspecified 02/15/2010 YOEL GREEN DO 724.5 Backache, Unspecified 02/15/2010 DENZEL CHILEL MD 724.5 Backache, Unspecified 02/15/2010 DENZEL CHILEL MD 724.5 Backache, Unspecified 02/15/2010 DENZEL CHILEL MD 724.5 Backache, Unspecified 02/15/2010 GETACHEW ADAMS, DENZEL 724.5 Backache, Unspecified 02/15/2010 DENZEL CHILEL MD 724.5 Backache, Unspecified 02/15/2010 DENZEL CHILEL MD 724.5 Backache, Unspecified 02/15/2010 DENZEL CHILEL MD 724.5 Backache, Unspecified 06/21/2010 YOEL GREEN DO F 724.2 Lumbago/ Low Back Pain 06/21/2010 YOEL GREEN DO F 724.2 Lumbago/ Low Back Pain 06/21/2010 GETACHEW ADAMS, DENZEL 724.2 Lumbago/ Low Back Pain 06/21/2010 YOEL GREEN DO F 724.2 Lumbago/ Low Back Pain 06/21/2010 GETACHEW ADAMS, DENZEL 724.2 Lumbago/ Low Back Pain 06/21/2010 YOEL GREEN DO F 724.2 Lumbago/ Low Back Pain 06/21/2010 724.2 Lumbago/ Low Back Pain 06/21/2010 724.2 Lumbago/ Low Back Pain 06/21/2010 724.2 Lumbago/ Low Back Pain 06/21/2010 724.2 Lumbago/ Low Back Pain 06/21/2010 YOEL GREEN DO 724.2 Lumbago/ Low Back Pain 06/21/2010 GETACHEW ADAMS, DENZEL 724.2 Lumbago/ Low Back Pain 06/21/2010 GETACHEW ADAMS, DENZEL 724.2 Lumbago/ Low Back Pain 06/21/2010 GETACHEW ADAMS, DENZEL 724.2 Lumbago/ Low Back Pain 06/21/2010 GETACHEW ADAMS, DENZEL 724.2 Lumbago/ Low Back Pain 06/21/2010 GETACHEW ADAMS, DENZEL 724.2 Lumbago/ Low Back Pain 06/21/2010 EGTACHEW ADAMS, DENZEL 724.2 Lumbago/ Low Back Pain 06/21/2010 GETACHEW ADAMS, DENZEL 724.2 Lumbago/ Low Back Pain 08/23/2010 YOEL GREEN DO F 737.30 SCOLIOSIS (AND KYPHOSCOLIOSIS) IDIOPATHIC 08/23/2010 YOEL GREEN DO F 737.30 SCOLIOSIS (AND KYPHOSCOLIOSIS) IDIOPATHIC 08/23/2010 DENZEL CHILEL MD 737.30 SCOLIOSIS (AND KYPHOSCOLIOSIS) IDIOPATHIC 08/23/2010 YOEL GREEN DO 737.30 SCOLIOSIS (AND KYPHOSCOLIOSIS) IDIOPATHIC 08/23/2010 DENZEL CHILEL MD 737.30 SCOLIOSIS (AND KYPHOSCOLIOSIS) IDIOPATHIC 08/23/2010 YOEL GREEN DO 737.30 SCOLIOSIS (AND KYPHOSCOLIOSIS) IDIOPATHIC 08/23/2010 737.30 SCOLIOSIS (AND KYPHOSCOLIOSIS) IDIOPATHIC 08/23/2010 737.30 SCOLIOSIS (AND KYPHOSCOLIOSIS) IDIOPATHIC 08/23/2010 737.30 SCOLIOSIS (AND KYPHOSCOLIOSIS) IDIOPATHIC 08/23/2010 737.30 SCOLIOSIS (AND KYPHOSCOLIOSIS) IDIOPATHIC 08/23/2010 YOEL GREEN DO 737.30 SCOLIOSIS (AND KYPHOSCOLIOSIS) IDIOPATHIC 08/23/2010 DENZEL CHILEL MD 737.30 SCOLIOSIS (AND KYPHOSCOLIOSIS) IDIOPATHIC 08/23/2010 GETACHEW ADAMS, DENZEL 737.30 SCOLIOSIS (AND KYPHOSCOLIOSIS) IDIOPATHIC 08/23/2010 GETACHEW ADAMS, DENZEL 737.30 SCOLIOSIS (AND KYPHOSCOLIOSIS) IDIOPATHIC 08/23/2010 GETACHEW ADAMS, DENZEL 737.30 SCOLIOSIS (AND KYPHOSCOLIOSIS) IDIOPATHIC 08/23/2010 DENZEL CHILEL MD 737.30 SCOLIOSIS (AND KYPHOSCOLIOSIS) IDIOPATHIC 08/23/2010 GETACHEW ADAMS, DENZEL 737.30 SCOLIOSIS (AND KYPHOSCOLIOSIS) IDIOPATHIC 08/23/2010 DENZEL CHILEL MD 737.30 SCOLIOSIS (AND KYPHOSCOLIOSIS) IDIOPATHIC 09/02/2010 YOEL GREEN DO 536.8 DYSPEPSIA AND OTHER SPECIFIED DISORDERS OF FUNCTION OF STOMACH 09/02/2010 YOEL GREEN DO 536.8 DYSPEPSIA AND OTHER SPECIFIED DISORDERS OF FUNCTION OF STOMACH 09/02/2010 DENZEL CHILEL MD 536.8 DYSPEPSIA AND OTHER SPECIFIED DISORDERS OF FUNCTION OF STOMACH 09/02/2010 YOEL GREEN DO 536.8 DYSPEPSIA AND OTHER SPECIFIED DISORDERS OF FUNCTION OF STOMACH 09/02/2010 DENZEL CHILEL MD 536.8 DYSPEPSIA AND OTHER SPECIFIED DISORDERS OF FUNCTION OF STOMACH 09/02/2010 YOEL GREEN DO 536.8 DYSPEPSIA AND OTHER SPECIFIED DISORDERS OF FUNCTION OF STOMACH 09/02/2010 536.8 DYSPEPSIA AND OTHER SPECIFIED DISORDERS OF FUNCTION OF STOMACH 09/02/2010 536.8 DYSPEPSIA AND OTHER SPECIFIED DISORDERS OF FUNCTION OF STOMACH 09/02/2010 536.8 DYSPEPSIA AND OTHER SPECIFIED DISORDERS OF FUNCTION OF STOMACH 09/02/2010 536.8 DYSPEPSIA AND OTHER SPECIFIED DISORDERS OF FUNCTION OF STOMACH 09/02/2010 YOEL GREEN DO 536.8 DYSPEPSIA AND OTHER SPECIFIED DISORDERS OF FUNCTION OF STOMACH 09/02/2010 DENZEL CHILEL MD 536.8 DYSPEPSIA AND OTHER SPECIFIED DISORDERS OF FUNCTION OF STOMACH 09/02/2010 DENZEL CHILEL MD6.8 DYSPEPSIA AND OTHER SPECIFIED DISORDERS OF FUNCTION OF STOMACH 09/02/2010 DENZEL CHILEL MD 536.8 DYSPEPSIA AND OTHER SPECIFIED DISORDERS OF FUNCTION OF STOMACH 09/02/2010 DENZEL CHILEL MD.8 DYSPEPSIA AND OTHER SPECIFIED DISORDERS OF FUNCTION OF STOMACH 09/02/2010 DENZEL CHILEL MD.8 DYSPEPSIA AND OTHER SPECIFIED DISORDERS OF FUNCTION OF STOMACH 09/02/2010 DENZEL CHILEL MD6.8 DYSPEPSIA AND OTHER SPECIFIED DISORDERS OF FUNCTION OF STOMACH 09/02/2010 DENZEL CHILEL MD 536.8 DYSPEPSIA AND OTHER SPECIFIED DISORDERS OF FUNCTION OF STOMACH 12/20/2010 YOEL GREEN DO 719.40 Arthraigia Unspec 12/20/2010 YOEL GREEN DO 719.40 Arthraigia Unspec 12/20/2010 DENZEL CHILEL MD 719.40 Arthraigia Unspec 12/20/2010 YOEL GREEN DO 719.40 Arthraigia Unspec 12/20/2010 DENZEL CHILEL MD 719.40 Arthraigia Unspec 12/20/2010 YOEL GREEN DO 719.40 Arthraigia Unspec 12/20/2010 719.40 Arthraigia Unspec 12/20/2010 719.40 Arthraigia Unspec 12/20/2010 719.40 Arthraigia Unspec 12/20/2010 719.40 Arthraigia Unspec 12/20/2010 YOEL GREEN DO 719.40 Arthraigia Unspec 12/20/2010 DENZEL CHILEL MD9.40 Arthraigia Unspec 12/20/2010 DENZEL CHILEL MD 719.40 Arthraigia Unspec 12/20/2010 DENZEL CHILEL MD 719.40 Arthraigia Unspec 12/20/2010 DENZEL CHILEL MD9.40 Arthraigia Unspec 12/20/2010 DENZEL CHILEL MD.40 Arthraigia Unspec 12/20/2010 GETACHEW ADAMS, DENZEL 719.40 Arthraigia Unspec 12/20/2010 DENZEL CHILEL MD 719.40 Arthraigia Unspec 03/13/2011 YOEL GREEN DO 599.0 URINARY TRACT INFECTION SITE NOT SPECIFIED 03/13/2011 YOEL GREEN DO F 616.10 VAGINITIS AND VULVOVAGINITIS UNSPECIFIED 03/13/2011 YOEL GREEN DO F 599.0 URINARY TRACT INFECTION SITE NOT SPECIFIED 03/13/2011 YOEL GREEN DO F 616.10 VAGINITIS AND VULVOVAGINITIS UNSPECIFIED 03/13/2011 DENZEL CHILEL MD 599.0 URINARY TRACT INFECTION SITE NOT SPECIFIED 03/13/2011 DENZEL CHILEL MD 616.10 VAGINITIS AND VULVOVAGINITIS UNSPECIFIED 03/13/2011 YOEL GREEN DO F 599.0 URINARY TRACT INFECTION SITE NOT SPECIFIED 03/13/2011 YOEL GREEN DO F 616.10 VAGINITIS AND VULVOVAGINITIS UNSPECIFIED 03/13/2011 DENZEL CHILEL MD 599.0 URINARY TRACT INFECTION SITE NOT SPECIFIED 03/13/2011 DENZEL CHILEL MD 616.10 VAGINITIS AND VULVOVAGINITIS UNSPECIFIED 03/13/2011 YOEL GREEN DO F 599.0 URINARY TRACT INFECTION SITE NOT SPECIFIED 03/13/2011 YOEL GREEN DO F 616.10 VAGINITIS AND VULVOVAGINITIS UNSPECIFIED 03/13/2011 599.0 URINARY TRACT INFECTION SITE NOT SPECIFIED 03/13/2011 616.10 VAGINITIS AND VULVOVAGINITIS UNSPECIFIED 03/13/2011 599.0 URINARY TRACT INFECTION SITE NOT SPECIFIED 03/13/2011 616.10 VAGINITIS AND VULVOVAGINITIS UNSPECIFIED 03/13/2011 599.0 URINARY TRACT INFECTION SITE NOT SPECIFIED 03/13/2011 616.10 VAGINITIS AND VULVOVAGINITIS UNSPECIFIED 03/13/2011 599.0 URINARY TRACT INFECTION SITE NOT SPECIFIED 03/13/2011 616.10 VAGINITIS AND VULVOVAGINITIS UNSPECIFIED 03/13/2011 YOEL GREEN DO F 599.0 URINARY TRACT INFECTION SITE NOT SPECIFIED 03/13/2011 YOEL GRENE DO 616.10 VAGINITIS AND VULVOVAGINITIS UNSPECIFIED 03/13/2011 DENZEL CHILEL MD 599.0 URINARY TRACT INFECTION SITE NOT SPECIFIED 03/13/2011 DENZEL CHILEL MD 616.10 VAGINITIS AND VULVOVAGINITIS UNSPECIFIED 03/13/2011 DENZEL CHILEL MD 599.0 URINARY TRACT INFECTION SITE NOT SPECIFIED 03/13/2011 DENZEL CHILEL MD 616.10 VAGINITIS AND VULVOVAGINITIS UNSPECIFIED 03/13/2011 DENZEL CHILEL MD 599.0 URINARY TRACT INFECTION SITE NOT SPECIFIED 03/13/2011 DENZEL CHILEL MD 616.10 VAGINITIS AND VULVOVAGINITIS UNSPECIFIED 03/13/2011 GETACHEW ADAMS, DENZEL 599.0 URINARY TRACT INFECTION SITE NOT SPECIFIED 03/13/2011 DENZEL CHILEL MD 616.10 VAGINITIS AND VULVOVAGINITIS UNSPECIFIED 03/13/2011 DENZEL CHILEL MD 599.0 URINARY TRACT INFECTION SITE NOT SPECIFIED 03/13/2011 DENZEL CHILEL MD 616.10 VAGINITIS AND VULVOVAGINITIS UNSPECIFIED 03/13/2011 DENZEL CHILEL MD 599.0 URINARY TRACT INFECTION SITE NOT SPECIFIED 03/13/2011 DENZEL CHILEL MD 616.10 VAGINITIS AND VULVOVAGINITIS UNSPECIFIED 03/13/2011 DENZEL CHILEL MD 599.0 URINARY TRACT INFECTION SITE NOT SPECIFIED 03/13/2011 DENZEL CHILEL MD 616.10 VAGINITIS AND VULVOVAGINITIS UNSPECIFIED 01/12/2012 YOEL GREEN DO 300.00 ANXIETY UNSPEC 01/12/2012 YOEL GREEN DO 300.00 ANXIETY UNSPEC 01/12/2012 DENZEL CHILEL MD 300.00 ANXIETY UNSPEC 01/12/2012 YOEL GEREN DO 300.00 ANXIETY UNSPEC 01/12/2012 DENZEL CHILEL MD 300.00 ANXIETY UNSPEC 01/12/2012 YOEL GREEN DO 300.00 ANXIETY UNSPEC 01/12/2012 300.00 ANXIETY UNSPEC 01/12/2012 300.00 ANXIETY UNSPEC 01/12/2012 300.00 ANXIETY UNSPEC 01/12/2012 300.00 ANXIETY UNSPEC 01/12/2012 YOEL GREEN DO 300.00 ANXIETY UNSPEC 01/12/2012 GETACHEW ADAMS, DENZEL 300.00 ANXIETY UNSPEC 01/12/2012 GETACHEW ADAMS, DENZEL 300.00 ANXIETY UNSPEC 01/12/2012 GETACHEW ADAMS, DENZEL 300.00 ANXIETY UNSPEC 01/12/2012 GETACHEW ADAMS, DENZEL 300.00 ANXIETY UNSPEC 01/12/2012 GETACHEW ADAMS, DENZEL 300.00 ANXIETY UNSPEC 01/12/2012 GETACHEW ADAMS, DENZEL 300.00 ANXIETY UNSPEC 01/12/2012 GETACHEW ADAMS, DENZEL 300.00 ANXIETY UNSPEC 03/20/2012 YOEL GREEN DO 599.0 Urinary Tract Infection 03/20/2012 YOEL GREEN DO 599.0 Urinary Tract Infection 03/20/2012 GETACHEW ADAMS, DENZEL 599.0 Urinary Tract Infection 03/20/2012 YOEL GREEN DO 599.0 Urinary Tract Infection 03/20/2012 GETACHEW ADAMS, DENZEL 599.0 Urinary Tract Infection 03/20/2012 YOEL GREEN DO 599.0 Urinary Tract Infection 03/20/2012 599.0 Urinary Tract Infection 03/20/2012 599.0 Urinary Tract Infection 03/20/2012 599.0 Urinary Tract Infection 03/20/2012 599.0 Urinary Tract Infection 03/20/2012 YOEL GREEN DO 599.0 Urinary Tract Infection 03/20/2012 GETACHEW ADAMS, DENZEL 599.0 Urinary Tract Infection 03/20/2012 GETACHEW ADAMS, DENZEL 599.0 Urinary Tract Infection 03/20/2012 GETACHEW ADAMS, DENZEL 599.0 Urinary Tract Infection 03/20/2012 GETACHEW ADAMS, DENZEL 599.0 Urinary Tract Infection 03/20/2012 GETACHEW ADAMS, DENZEL 599.0 Urinary Tract Infection 03/20/2012 GETACHEW ADAMS, DENZEL 599.0 Urinary Tract Infection 03/20/2012 GETACHEW ADAMS, DENZEL 599.0 Urinary Tract Infection 05/21/2012 YOEL GREEN DO 307.47 SI DYSSOMNIA NOS 05/21/2012 YOEL GREEN DO 307.47 SI DYSSOMNIA NOS 05/21/2012 GETACHEW ADAMS, DENZEL 307.47 SI DYSSOMNIA NOS 05/21/2012 YOEL GREEN DO 307.47 SI DYSSOMNIA NOS 05/21/2012 GETACHEW ADAMS, DENZEL 307.47 SI DYSSOMNIA NOS 05/21/2012 YOEL GREEN DO 307.47 SI DYSSOMNIA NOS 05/21/2012 307.47 SI DYSSOMNIA NOS 05/21/2012 307.47 SI DYSSOMNIA NOS 05/21/2012 307.47 SI DYSSOMNIA NOS 05/21/2012 307.47 SI DYSSOMNIA NOS 05/21/2012 YOEL GREEN DO 307.47 SI DYSSOMNIA NOS 05/21/2012 GETACHEW ADAMS, DENZEL 307.47 SI DYSSOMNIA NOS 05/21/2012 GETACHEW ADAMS, DENZEL 307.47 SI DYSSOMNIA NOS 05/21/2012 GETACHEW ADAMS, DENZEL 307.47 SI DYSSOMNIA NOS 05/21/2012 GETACHEW ADAMS, DENZEL 307.47 SI DYSSOMNIA NOS 05/21/2012 GETACHEW ADAMS, DENZEL 307.47 SI DYSSOMNIA NOS 05/21/2012 GETACHEW ADAMS, DENZEL 307.47 SI DYSSOMNIA NOS 05/21/2012 GETACHEW ADAMS, DENZEL 307.47 SI DYSSOMNIA NOS 07/18/2012 YOEL GREEN DO 486 PNEUMONIA ORGANISM UNSPECIFIED 07/18/2012 YOEL GREEN DO 486 PNEUMONIA ORGANISM UNSPECIFIED 07/18/2012 GETACHEW ADAMS, DENZEL 486 PNEUMONIA ORGANISM UNSPECIFIED 07/18/2012 YOEL GREEN DO 486 PNEUMONIA ORGANISM UNSPECIFIED 07/18/2012 GETACHEW ADAMS, DENZEL 486 PNEUMONIA ORGANISM UNSPECIFIED 07/18/2012 YOEL GREEN DO 486 PNEUMONIA ORGANISM UNSPECIFIED 07/18/2012 486 PNEUMONIA ORGANISM UNSPECIFIED 07/18/2012 486 PNEUMONIA ORGANISM UNSPECIFIED 07/18/2012 486 PNEUMONIA ORGANISM UNSPECIFIED 07/18/2012 486 PNEUMONIA ORGANISM UNSPECIFIED 07/18/2012 YOEL GREEN DO 486 PNEUMONIA ORGANISM UNSPECIFIED 07/18/2012 GETACHEW ADAMS, DENZEL 486 PNEUMONIA ORGANISM UNSPECIFIED 07/18/2012 GETACHEW ADAMS, DENZEL 486 PNEUMONIA ORGANISM UNSPECIFIED 07/18/2012 GETACHEW ADAMS, DENZEL 486 PNEUMONIA ORGANISM UNSPECIFIED 07/18/2012 GETACHEW ADAMS, DENZEL 486 PNEUMONIA ORGANISM UNSPECIFIED 07/18/2012 DENZEL CHILEL MD 486 PNEUMONIA ORGANISM UNSPECIFIED 07/18/2012 GETACHEW ADAMS, DENZEL 486 PNEUMONIA ORGANISM UNSPECIFIED 07/18/2012 DENZEL CHILEL MD 486 PNEUMONIA ORGANISM UNSPECIFIED 08/21/2012 DANDYDER DO YOEL F 298.9 P PSYCHOSIS NOS 08/21/2012 DANDYDER DO YOEL F 298.9 P PSYCHOSIS NOS 08/21/2012 DENZEL CHILEL MD 298.9 P PSYCHOSIS NOS 08/21/2012 NORMA GARCIA YOEL F 298.9 P PSYCHOSIS NOS 08/21/2012 DENZEL CHILEL MD 298.9 P PSYCHOSIS NOS 08/21/2012 DANDYDER LEIGH ANN GARCIAEN F 298.9 P PSYCHOSIS NOS 08/21/2012 298.9 P PSYCHOSIS NOS 08/21/2012 298.9 P PSYCHOSIS NOS 08/21/2012 298.9 P PSYCHOSIS NOS 08/21/2012 298.9 P PSYCHOSIS NOS 08/21/2012 YOEL GREEN DO F 298.9 P PSYCHOSIS NOS 08/21/2012 DENZEL CHILEL MD 298.9 P PSYCHOSIS NOS 08/21/2012 DENZEL CHILEL MD 298.9 P PSYCHOSIS NOS 08/21/2012 DENZEL CHILEL MD 298.9 P PSYCHOSIS NOS 08/21/2012 DENZEL CHILEL MD 298.9 P PSYCHOSIS NOS 08/21/2012 DENZEL CHILEL MD 298.9 P PSYCHOSIS NOS 08/21/2012 DENZEL CHILEL MD 298.9 P PSYCHOSIS NOS 08/21/2012 DENZEL CHILEL MD 298.9 P PSYCHOSIS NOS 10/22/2012 DENZEL CHILEL MD 786.2 COUGH 10/22/2012 LEIGH ANN GREEN DOEN F 786.2 COUGH 10/22/2012 DENZEL CHILEL MD 786.2 COUGH 10/22/2012 YOEL GREEN DO F 786.2 COUGH 10/22/2012 786.2 COUGH 10/22/2012 786.2 COUGH 10/22/2012 786.2 COUGH 10/22/2012 786.2 COUGH 10/22/2012 LEIGH ANN GREEN DOEN F 786.2 COUGH 10/22/2012 DENZEL CHILEL MD 786.2 COUGH 10/22/2012 DENZEL CHILEL MD 786.2 COUGH 10/22/2012 DENZEL CHILEL MD 786.2 COUGH 10/22/2012 DENZEL CHILEL MD 786.2 COUGH 10/22/2012 GETACHEW DAAMS, DENZEL 786.2 COUGH 10/22/2012 GETACHEW ADAMS, DENZEL 786.2 COUGH 10/22/2012 GETACHEW ADAMS, DENZEL 786.2 COUGH 02/17/2013 716.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 ARTHROPATHY SITE UNSPECIFIED 02/17/2013 716.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 ARTHROPATHY SITE UNSPECIFIED 02/17/2013 716.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 ARTHROPATHY SITE UNSPECIFIED 02/17/2013 716.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 ARTHROPATHY SITE UNSPECIFIED 02/17/2013 YOEL GREEN DO 716.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 ARTHROPATHY SITE UNSPECIFIED 02/17/2013 GETACHEW ADAMS, DENZEL 716.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 ARTHROPATHY SITE UNSPECIFIED 02/17/2013 GETACHEW ADAMS, DENZEL 716.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 ARTHROPATHY SITE UNSPECIFIED 02/17/2013 GETACHEW ADAMS, DENZEL 716.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 ARTHROPATHY SITE UNSPECIFIED 02/17/2013 GETACHEW ADAMS, DENZEL 716.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 ARTHROPATHY SITE UNSPECIFIED 02/17/2013 GETACHEW ADAMS, DENZEL 716.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 ARTHROPATHY SITE UNSPECIFIED 02/17/2013 GETACHEW ADAMS, DENZEL 716.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 ARTHROPATHY SITE UNSPECIFIED 02/17/2013 GETACHEW ADAMS, DENZEL 716.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 ARTHROPATHY SITE UNSPECIFIED 02/24/2013 V58.69 MEDICATION HIGH RISK 02/24/2013 V58.69 MEDICATION HIGH RISK 02/24/2013 V58.69 MEDICATION HIGH RISK 02/24/2013 V58.69 MEDICATION HIGH RISK 02/24/2013 YOEL GREEN DO V58.69 MEDICATION HIGH RISK 02/24/2013 GETACHEW ADAMS, DENZEL V58.69 MEDICATION HIGH RISK 02/24/2013 GETACHEW ADAMS, DENZEL V58.69 MEDICATION HIGH RISK 02/24/2013 GETACHEW ADAMS, DENZEL V58.69 MEDICATION HIGH RISK 02/24/2013 GETACHEW ADAMS, DENZEL V58.69 MEDICATION HIGH RISK 02/24/2013 GETACHEW ADAMS, DENZEL V58.69 MEDICATION HIGH RISK 02/24/2013 GETACHEW ADAMS, DENZEL V58.69 MEDICATION HIGH RISK 02/24/2013 GETACHEW ADAMS, DENZEL V58.69 MEDICATION HIGH RISK 03/21/2013 627.2 SYMPTOMATIC MENOPAUSAL OR FEMALE CLIMACTERIC STATES 03/21/2013 790.29 OTHER ABNORMAL GLUCOSE 03/21/2013 627.2 SYMPTOMATIC MENOPAUSAL OR FEMALE CLIMACTERIC STATES 03/21/2013 790.29 OTHER ABNORMAL GLUCOSE 03/21/2013 DANDYMONDRAGON YOEL F 627.2 SYMPTOMATIC MENOPAUSAL OR FEMALE CLIMACTERIC STATES 03/21/2013 NORMA GARCIA YOEL Caesar 790.29 OTHER ABNORMAL GLUCOSE 03/21/2013 DENZEL CHILEL MD 627.2 SYMPTOMATIC MENOPAUSAL OR FEMALE CLIMACTERIC STATES 03/21/2013 DENZEL CHILEL MD 790.29 OTHER ABNORMAL GLUCOSE 03/21/2013 DENZEL CHILEL MD.2 SYMPTOMATIC MENOPAUSAL OR FEMALE CLIMACTERIC STATES 03/21/2013 DENZEL CHILEL MD 790.29 OTHER ABNORMAL GLUCOSE 03/21/2013 DENZEL CHILEL MD.2 SYMPTOMATIC MENOPAUSAL OR FEMALE CLIMACTERIC STATES 03/21/2013 DENZEL CHILEL MD 790.29 OTHER ABNORMAL GLUCOSE 03/21/2013 DENZEL CHILEL MD.2 SYMPTOMATIC MENOPAUSAL OR FEMALE CLIMACTERIC STATES 03/21/2013 DENZEL CHILEL MD 790.29 OTHER ABNORMAL GLUCOSE 03/21/2013 DENZEL CHILEL MD.2 SYMPTOMATIC MENOPAUSAL OR FEMALE CLIMACTERIC STATES 03/21/2013 DENZEL CHILEL MD 790.29 OTHER ABNORMAL GLUCOSE 03/21/2013 DENZEL CHILEL MD.2 SYMPTOMATIC MENOPAUSAL OR FEMALE CLIMACTERIC STATES 03/21/2013 DENZEL CHILEL MD 790.29 OTHER ABNORMAL GLUCOSE 03/21/2013 DENZEL CHILEL MD.2 SYMPTOMATIC MENOPAUSAL OR FEMALE CLIMACTERIC STATES 03/21/2013 DENZEL CHILEL MD 790.29 OTHER ABNORMAL GLUCOSE 08/02/2013 SHAILESH ORTIZ MD Ot 276.8 HYPOPOTASSEMIA 08/02/2013 SHAILESH ORTIZ MD Ot 300.00 ANXIETY STATE NOS 08/02/2013 SHAILESH ORTIZ MD Ot 427.89 CARDIAC DYSRHYTHMIAS NEC 08/02/2013 SHAILESH ORTIZ MD Ot 785.1 PALPITATIONS 09/01/2013 DENZEL CHILEL MD 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 09/01/2013 DENZEL CHILEL MD 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 09/01/2013 GETACHEW ADAMS, DENZEL 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 09/01/2013 GETACHEW ADAMS, DENZEL 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 09/01/2013 GETACHEW ADAMS, DENZEL 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 09/01/2013 GETACHEW ADAMS, DENZEL 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 09/01/2013 GETACHEW ADAMS, DENZEL 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 12/24/2013 GETACHEW ADAMS, DENZEL 305.1 TOBACCO ABUSE 12/24/2013 GETACHEW ADAMS, DENZEL 496 COPD 12/24/2013 GETACHEW ADAMS, DENZEL 785.1 PALPITATIONS 12/24/2013 GETACHEW ADAMS, DENZEL 786.09 DYSPNEA 12/24/2013 GETACHEW ADAMS, DENZEL 305.1 TOBACCO ABUSE 12/24/2013 GETACHEW ADAMS, DENZEL 496 COPD 12/24/2013 GETACHEW ADAMS, DENZEL 785.1 PALPITATIONS 12/24/2013 GETACHEW ADAMS, DENZEL 786.09 DYSPNEA 12/24/2013 GETACHEW ADAMS, DENZEL 305.1 TOBACCO ABUSE 12/24/2013 GETACHEW ADAMS, DENZEL 496 COPD 12/24/2013 GETACHEW ADAMS, DENZEL 785.1 PALPITATIONS 12/24/2013 GETACHEW ADAMS, DENZEL 786.09 DYSPNEA 01/22/2014 JESUS ADAMS, AN Albarado Ot 466.0 ACUTE BRONCHITIS 01/22/2014 JESUS ADAMS, AN Albarado Ot 786.2 COUGH 01/28/2014 JULI LAUGHLIN DOA K Ot 300.00 ANXIETY STATE NOS 01/28/2014 JULI LAUGHLIN DOA K Ot 780.52 INSOMNIA, UNSPECIFIED 02/01/2014 JULI LAUGHLIN DOA K Ot 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 02/01/2014 JULI LAUGHLIN DOA K Ot 599.0 URIN TRACT INFECTION NOS 02/01/2014 JULI LAUGHLIN DOA K Ot 780.52 INSOMNIA, UNSPECIFIED 02/01/2014 KADIE LAUGHLIN DO K Ot 785.1 PALPITATIONS 04/17/2014 DIANA ADAMS, SHAILESH Lyn Ot 276.8 HYPOPOTASSEMIA 04/17/2014 DIANA ADAMS, SHAILESH Lyn Ot 296.50 BIPOL I, REC EPIS (OR CURRENT) DEPRESSED 04/17/2014 SHAILESH ORTIZ MD Ot 300.00 ANXIETY STATE NOS 04/17/2014 SHAILESH ORTIZ MD Ot 305.1 TOBACCO USE DISORDER 04/17/2014 SHAILESH ORTIZ MD Ot 333.94 RESTLESS LEGS SYNDROME 04/17/2014 SHAILESH ORTIZ MD Ot 716.90 ARTHROPATHY NOS-UNSPEC 04/17/2014 SHAILESH ORTIZ MD Ot 724.5 BACKACHE NOS 04/17/2014 SHAILESH ORTIZ MD Ot 737.30 IDIOPATHIC SCOLIOSIS 04/17/2014 SHAILESH ORTZI MD Ot 785.1 PALPITATIONS 04/17/2014 SHAILESH ORTIZ MD Ot 785.2 CARDIAC MURMURS NEC 04/17/2014 SHAILESH ORTIZ MD Ot 786.59 CHEST PAIN NEC 04/17/2014 SHAILESH ORTIZ MD Ot 789.06 ABDOMINAL PAIN, EPIGASTRIC 04/17/2014 SHAILESH ORTIZ MD Ot V58.66 LONG-TERM (CURRENT) USE OF ASPIRIN 05/02/2014 MARIALUISA PATEL MD Ot 296.50 BIPOL I, REC EPIS (OR CURRENT) DEPRESSED 05/02/2014 MARIALUISA PATEL MD Ot 300.02 GENERALIZED ANXIETY DIS 05/02/2014 MARIALUISA PATEL MD Ot 305.1 TOBACCO USE DISORDER 05/02/2014 MARIALUISA PATEL MD Ot 338.29 OTHER CHRONIC PAIN 05/02/2014 MARIALUISA PATEL MD Ot 716.90 ARTHROPATHY NOS-UNSPEC 05/02/2014 MARIALUISA PATEL MD Ot 737.30 IDIOPATHIC SCOLIOSIS 05/02/2014 MARIALUISA PATEL MD Ot 785.0 TACHYCARDIA NOS 05/02/2014 MARIALUISA PATEL MD Ot 786.50 CHEST PAIN NOS 05/02/2014 MARIALUISA PATEL MD Ot V58.66 LONG-TERM (CURRENT) USE OF ASPIRIN 05/02/2014 MARIALUISA PATEL MD Ot V58.69 OTH MED,LT,CURRENT USE 03/03/2015 GABRIELA PRYOR DO Ot 785.1 PALPITATIONS 03/26/2015 MUNIRA ADAMS FACC, ALI FACP CCDS Ot 305.1 03/26/2015 MUNIRA ADAMS FACC, ALI FACP CCDS Ot 496 03/26/2015 MUNIRA ADAMS FACC, ALI FACP CCDS Ot 785.1 03/26/2015 MUNIRA ADAMS FACC, ALI FACP CCDS Ot 786.09 03/26/2015 MUNIRA ADAMS FACC, ALI FACP CCDS Ot 305.1 03/26/2015 MUNIRA ADAMS FACC, ALI FACP CCDS Ot 496 03/26/2015 MUNIRA ADAMS FACC, ALI FACP CCDS Ot 785.1 03/26/2015 MUNIRA ADAMS FACC, ALI FACP CCDS Ot 786.09 05/08/2015 MUNIRA ADAMS FACC, ALI FACP CCDS Ot 305.1 05/08/2015 MUNIRA ADAMS FACC, ALI FACP CCDS Ot 496 05/08/2015 MUNIRA ADAMS FACC, ALI FACP CCDS Ot 785.1 05/08/2015 MUNIRA ADAMS FACC, ALI FACP CCDS Ot 786.09 05/08/2015 MUNIRA ADAMS FACC, ALI FACP CCDS Ot 305.1 05/08/2015 MUNIRA ADAMS FAC, ALI FACP CCDS Ot 496 05/08/2015 MUNIRA ADAMS [facility], ALI FACP CCDS Ot 785.1 05/08/2015 MUNIRA ADAMS [facility], ALI FACP CCDS Ot 786.09 05/08/2015 KRISTOPHER MILLER [employer] SUPERVISOR Ot 780.52 INSOMNIA, UNSPECIFIED 05/08/2015 KRISTOPHER MILLER [employer] SUPERVISOR Ot V68.1 ISSUE REPEAT PRESCRIPT 02/25/2016 ROMY PULIDO MD Ot M54.5 LOW BACK PAIN 02/29/2016 ROMY PULIDO MD Ot M54.5 LOW BACK PAIN 03/30/2016 ROMY PULIDO MD Ot M54.5 LOW BACK PAIN 03/30/2016 ROMY PULIDO MD Ot M54.5 LOW BACK PAIN 04/06/2016 ROMY PULIDO MD Ot M54.5 LOW BACK PAIN 04/13/2016 ROMY PULIDO MD Ot M54.5 LOW BACK PAIN 05/24/2016 MUNIRA ADAMS FACC, ALI FACP CCDS Ot 305.1 TOBACCO USE DISORDER 05/24/2016 MUNIRA ADAMS FACC, ALI FACP CCDS Ot 496 CHR AIRWAY OBSTRUCT NEC 05/24/2016 MUNIRA ADAMS FACC, ALI FACP CCDS Ot 785.1 PALPITATIONS 05/24/2016 MUNIRA ADAMS FACC, ALI FACP CCDS Ot 786.09 RESPIRATORY ABNORM NEC 05/24/2016 MUNIRA ADAMS FACC, ALI FACP CCDS Ot 305.1 TOBACCO USE DISORDER 05/24/2016 MUNIRA ADAMS FACC, ALI FACP CCDS Ot 496 CHR AIRWAY OBSTRUCT NEC 05/24/2016 MUNIRA ADAMS FACRenny, ALI FACP CCDS Ot 785.1 PALPITATIONS 05/24/2016 MUNIRA ADAMS FACRenny, ALI FACP CCDS Ot 786.09 RESPIRATORY ABNORM NEC 06/07/2016 DAMI VILLARREAL R PLAY WRITER Ot Z12.31 ENCNTR SCREEN MAMMOGRAM FOR MALIGNANT NE 06/08/2016 DAMI VILLARREAL R PLAY WRITER Ot Z12.31 ENCNTR SCREEN MAMMOGRAM FOR MALIGNANT NE 06/15/2016 DAMI VILLARREAL R PLAY WRITER Ot Z12.31 ENCNTR SCREEN MAMMOGRAM FOR MALIGNANT NE 06/16/2016 DAMI VILLARREAL R PLAY WRITER Ot Z12.31 ENCNTR SCREEN MAMMOGRAM FOR MALIGNANT NE 06/16/2016 DAMI VILLARREAL R PLAY WRITER Ot Z12.31 ENCNTR SCREEN MAMMOGRAM FOR MALIGNANT NE 06/16/2016 ROMY PULIDO MD N Ot R00.2 PALPITATIONS 06/30/2016 DAMI VILLARREAL PLAY WRITER Ot Z12.31 ENCNTR SCREEN MAMMOGRAM FOR MALIGNANT NE 07/04/2016 DAMI VILLARREAL R PLAY WRITER Ot Z12.31 ENCNTR SCREEN MAMMOGRAM FOR MALIGNANT NE 07/04/2016 ROMY PULIDO MD N Ot R00.2 PALPITATIONS 07/07/2016 ROMY PULIDO MD Ot R00.2 PALPITATIONS 08/12/2016 MUNIRA ADAMS FACC, ALI FACP CCDS Ot 305.1 TOBACCO USE DISORDER 08/12/2016 MUNIRA ADAMS FACC, ALI FACP CCDS Ot 496 CHR AIRWAY OBSTRUCT NEC 08/12/2016 MUNIRA ADAMS FACC, ALI FACP CCDS Ot 785.1 PALPITATIONS 08/12/2016 MUNIRA ADAMS FACC, ALI FACP CCDS Ot 786.09 RESPIRATORY ABNORM NEC 08/12/2016 MUNIRA ADAMS FACC, ALI FACP CCDS Ot 305.1 TOBACCO USE DISORDER 08/12/2016 MUNIRA ADAMS FAC, ALI FACP CCDS Ot 496 CHR AIRWAY OBSTRUCT NEC 08/12/2016 MUNIRA ADAMS [facility], ALI FACP CCDS Ot 785.1 PALPITATIONS 08/12/2016 MUNIRA ADAMS [facility], ALI FACP CCDS Ot 786.09 RESPIRATORY ABNORM NEC 08/12/2016 ROMY PULIDO MD Ot R00.2 PALPITATIONS 08/12/2016 DAMI VILLARREAL PLAY WRITER Ot Z12.31 ENCNTR SCREEN MAMMOGRAM FOR MALIGNANT NE 08/12/2016 MARIALUISA PATEL MD Ot F17.210 NICOTINE DEPENDENCE, CIGARETTES, UNCOMPL 08/12/2016 MARIALUISA PATEL MD Ot I47.9 PAROXYSMAL TACHYCARDIA, UNSPECIFIED 08/12/2016 MARIALUISA PATEL MD Ot R00.0 TACHYCARDIA, UNSPECIFIED 08/12/2016 MUNIRA ADAMS [facility], ALI FACP CCDS Ot 305.1 TOBACCO USE DISORDER 08/12/2016 MUNIRA ADAMS [facility], ALI FACP CCDS Ot 496 CHR AIRWAY OBSTRUCT NEC 08/12/2016 MUNIRA ADAMS [facility], ALI FACP CCDS Ot 785.1 PALPITATIONS 08/12/2016 MUNIRA ADAMS [facility], ALI FACP CCDS Ot 786.09 RESPIRATORY ABNORM NEC 08/12/2016 MUNIRA ADAMS [facility], ALI FACP CCDS Ot 305.1 TOBACCO USE DISORDER 08/12/2016 MUNIRA ADAMS [facility], ALI FACP CCDS Ot 496 CHR AIRWAY OBSTRUCT NEC 08/12/2016 MUNIRA ADAMS [facility], ALI FACP CCDS Ot 785.1 PALPITATIONS 08/12/2016 MUNIRA ADAMS [facility], ALI FACP CCDS Ot 786.09 RESPIRATORY ABNORM NEC 08/12/2016 ROMY PULIDO MD N Ot R00.2 PALPITATIONS 08/12/2016 DAMI VILLARREAL PLAY WRITER Ot Z12.31 ENCNTR SCREEN MAMMOGRAM FOR MALIGNANT NE 08/15/2016 MARIALUISA PATEL MD Ot F17.210 NICOTINE DEPENDENCE, CIGARETTES, UNCOMPL 08/15/2016 MARIALUISA PATEL MD Ot I47.9 PAROXYSMAL TACHYCARDIA, UNSPECIFIED 08/15/2016 MARIALUISA PATEL MD Ot R00.0 TACHYCARDIA, UNSPECIFIED 08/16/2016 MUNIRA ADAMS FACC, ALI FACP CCDS Ot 305.1 TOBACCO USE DISORDER 08/16/2016 MUNIRA ADAMS FACC, ALI FACP CCDS Ot 496 CHR AIRWAY OBSTRUCT NEC 08/16/2016 MUNIRA ADAMS FACC, ALI FACP CCDS Ot 785.1 PALPITATIONS 08/16/2016 MUNIRA ADAMS FACC, ALI FACP CCDS Ot 786.09 RESPIRATORY ABNORM NEC 08/16/2016 MUNIRA ADAMS FACC, ALI FACP CCDS Ot 305.1 TOBACCO USE DISORDER 08/16/2016 MUNIRA ADAMS FACC, ALI FACP CCDS Ot 496 CHR AIRWAY OBSTRUCT NEC 08/16/2016 MUNIRA ADAMS FACC, ALI FACP CCDS Ot 785.1 PALPITATIONS 08/16/2016 MUNIRA ADAMS FACRenny, ALI FACP CCDS Ot 786.09 RESPIRATORY ABNORM NEC 08/16/2016 ROMY PULIDO MD Ot R00.2 PALPITATIONS 08/16/2016 DAMI VILLARREALP Ot Z12.31 ENCNTR SCREEN MAMMOGRAM FOR MALIGNANT NE 08/22/2016 ROMY PULIDO MD N Ot R00.2 PALPITATIONS 08/23/2016 ROMY PULIDO MD Ot R00.2 PALPITATIONS 10/11/2016 MUNIRA ADAMS FACC, ALI FACP CCDS Ot 305.1 TOBACCO USE DISORDER 10/11/2016 MUNIRA ADAMS FACC, ALI FACP CCDS Ot 496 CHR AIRWAY OBSTRUCT NEC 10/11/2016 MUNIRA ADAMS FACC, ALI FACP CCDS Ot 785.1 PALPITATIONS 10/11/2016 MUNIRA ADAMS FACC, ALI FACP CCDS Ot 786.09 RESPIRATORY ABNORM NEC 10/11/2016 MUNIRA ADAMS FACC, ALI FACP CCDS Ot 305.1 TOBACCO USE DISORDER 10/11/2016 MUNIRA PULIDOC, ALI FACP CCDS Ot 496 CHR AIRWAY OBSTRUCT NEC 10/11/2016 MUNIRA ADAMS FACC, ALI FACP CCDS Ot 785.1 PALPITATIONS 10/11/2016 MUNIRA ADAMS FACC, ALI FACP CCDS Ot 786.09 RESPIRATORY ABNORM NEC 10/11/2016 DAMI VILLARREAL PLAY WRITER Ot Z12.31 ENCNTR SCREEN MAMMOGRAM FOR MALIGNANT NE 10/11/2016 ROMY PULIDO MD Ot R00.2 PALPITATIONS 10/11/2016 KADIE LAUGHLIN DO Ot F17.210 NICOTINE DEPENDENCE, CIGARETTES, UNCOMPL 10/11/2016 KADIE LAUGHLIN DO Ot F41.9 ANXIETY DISORDER, UNSPECIFIED 10/11/2016 KADIE LAUGHLIN DO Ot J44.9 CHRONIC OBSTRUCTIVE PULMONARY DISEASE, U 10/11/2016 KADIE LAUGHLIN DO Ot R00.2 PALPITATIONS 10/11/2016 KADIE LAUGHLIN DO Ot Z79.899 OTHER SNF (CURRENT) DRUG THERAPY 10/29/2016 KRISTOPHER MILLER [employer] SUPERVISOR Ot F17.210 NICOTINE DEPENDENCE, CIGARETTES, UNCOMPL 10/29/2016 KRISTOPHER MILLER [employer] SUPERVISOR Ot F41.9 ANXIETY DISORDER, UNSPECIFIED 10/29/2016 KRISTOPHER MILLER APRN Ot R00.2 PALPITATIONS 10/29/2016 KRISTOPHER MILLER APRN Ot R06.02 SHORTNESS OF BREATH 10/29/2016 KRISTOPHER MILLER [employer] SUPERVISOR Ot Z79.899 OTHER CLINICAL CASE MANAGER (CURRENT) DRUG THERAPY 10/29/2016 MUNIRA ADAMS FACC, ALI FACP CCDS Ot 305.1 TOBACCO USE DISORDER 10/29/2016 MUNIRA ADAMS FACC, ALI FACP CCDS Ot 496 CHR AIRWAY OBSTRUCT NEC 10/29/2016 MUNIRA ADAMS FACC, ALI FACP CCDS Ot 785.1 PALPITATIONS 10/29/2016 MUNIRA ADAMS FACC, ALI FACP CCDS Ot 786.09 RESPIRATORY ABNORM NEC 10/29/2016 MUNIRA ADAMS FACC, ALI FACP CCDS Ot 305.1 TOBACCO USE DISORDER 10/29/2016 MUNIRA ADAMS FACC, ALI FACP CCDS Ot 496 CHR AIRWAY OBSTRUCT NEC 10/29/2016 MUNIRA ADAMS FACC, ALI FACP CCDS Ot 785.1 PALPITATIONS 10/29/2016 MUNIRA ADAMS FACC, ALI FACP CCDS Ot 786.09 RESPIRATORY ABNORM NEC 10/29/2016 DAMI VILLARREAL PLAY WRITER Ot Z12.31 ENCNTR SCREEN MAMMOGRAM FOR MALIGNANT NE 10/29/2016 ROMY PULIDO MD Ot R00.2 PALPITATIONS 10/31/2016 KRISTOPHER MILLER WOOD CREW SUPERVISOR Ot F17.210 NICOTINE DEPENDENCE, CIGARETTES, UNCOMPL 10/31/2016 KRISTOPHER MILLER WOOD CREW SUPERVISOR Ot F41.9 ANXIETY DISORDER, UNSPECIFIED 10/31/2016 MILLERKRISTOPHER BAILON Enrico WOOD CREW SUPERVISOR Ot R00.2 PALPITATIONS 10/31/2016 MILLERKRISTOPHER BAILON Enrico WOOD CREW SUPERVISOR Ot R06.02 SHORTNESS OF BREATH 10/31/2016 KRISTOPHER MILLER WOOD CREW SUPERVISOR Ot Z79.899 OTHER SNF (CURRENT) DRUG THERAPY 11/01/2016 MILLERKRISTOPHER BAILON Enrico WOOD CREW SUPERVISOR Ot F17.210 NICOTINE DEPENDENCE, CIGARETTES, UNCOMPL 11/01/2016 MILLERKRISTOPHER BAILON Enrico WOOD CREW SUPERVISOR Ot F41.9 ANXIETY DISORDER, UNSPECIFIED 11/01/2016 KRISTOPHER MILLER WOOD CREW SUPERVISOR Ot R00.2 PALPITATIONS 11/01/2016 KRISTOPHER MILLER WOOD CREW SUPERVISOR Ot R06.02 SHORTNESS OF BREATH 11/01/2016 MILLERKRISTOPHER BAILON Enrico WOOD CREW SUPERVISOR Ot Z79.899 OTHER CLINICAL CASE MANAGER (CURRENT) DRUG THERAPY 12/18/2016 MUNIRA ADAMS FACC, ALI FACP CCDS Ot 305.1 TOBACCO USE DISORDER 12/18/2016 MUNIRA ADAMS FACC, ALI FACP CCDS Ot 496 CHR AIRWAY OBSTRUCT NEC 12/18/2016 MUNIRA ADAMS FACC, ALI FACP CCDS Ot 785.1 PALPITATIONS 12/18/2016 MUNIRA ADAMS FACC, ALI FACP CCDS Ot 786.09 RESPIRATORY ABNORM NEC 12/18/2016 MUNIRA ADAMS FACC, ALI FACP CCDS Ot 305.1 TOBACCO USE DISORDER 12/18/2016 MUNIRA ADAMS FACC, ALI FACP CCDS Ot 496 CHR AIRWAY OBSTRUCT NEC 12/18/2016 MUNIRA ADAMS FACC, ALI FACP CCDS Ot 785.1 PALPITATIONS 12/18/2016 MUNIRA ADAMS FACC, ALI FACP CCDS Ot 786.09 RESPIRATORY ABNORM NEC 12/18/2016 DAMI VILLARREAL PLAY WRITER Ot Z12.31 ENCNTR SCREEN MAMMOGRAM FOR MALIGNANT NE 12/18/2016 ASHOK ADAMS, ROMY Huitron Ot R00.2 PALPITATIONS 12/18/2016 GABRIELA PRYOR DO Ot F17.210 NICOTINE DEPENDENCE, CIGARETTES, UNCOMPL 12/18/2016 GABRIELA PRYOR DO Ot J45.909 UNSPECIFIED ASTHMA, UNCOMPLICATED 12/18/2016 GABRIELA PRYOR DO Ot R05 COUGH 12/19/2016 GABRIELA PRYOR DO Ot F17.210 NICOTINE DEPENDENCE, CIGARETTES, UNCOMPL 12/19/2016 GABRIELA PRYOR DO Ot J45.909 UNSPECIFIED ASTHMA, UNCOMPLICATED 12/19/2016 GABRIELA PRYOR DO Ot R05 COUGH 12/20/2016 GABRIELA PRYOR DO Ot F17.210 NICOTINE DEPENDENCE, CIGARETTES, UNCOMPL 12/20/2016 GABRIELA PRYOR DO Ot J45.909 UNSPECIFIED ASTHMA, UNCOMPLICATED 12/20/2016 GABRIELA PRYOR DO Ot R05 COUGH 12/22/2016 TRUMAN DO, KADIE K Ot F17.210 NICOTINE DEPENDENCE, CIGARETTES, UNCOMPL 12/22/2016 TRUMAN DO, KADIE K Ot F41.9 ANXIETY DISORDER, UNSPECIFIED 12/22/2016 TRUMAN DO, KADIE K Ot I10 ESSENTIAL (PRIMARY) HYPERTENSION 12/22/2016 TRUMAN DO, KADIE K Ot J44.9 CHRONIC OBSTRUCTIVE PULMONARY DISEASE, U 12/22/2016 TRUMAN DO, KADIE K Ot R07.89 OTHER CHEST PAIN 12/22/2016 TRUMAN DO, KADIE K Ot R07.9 CHEST PAIN, UNSPECIFIED 12/24/2016 GABRIELA PRYOR DO Ot F17.210 NICOTINE DEPENDENCE, CIGARETTES, UNCOMPL 12/24/2016 GABRIELA PRYOR DO Ot J45.909 UNSPECIFIED ASTHMA, UNCOMPLICATED 12/24/2016 GABRIELA PRYOR DO Ot R05 COUGH 12/25/2016 TRUMAN DO, KADIE K Ot F17.210 NICOTINE DEPENDENCE, CIGARETTES, UNCOMPL 12/25/2016 TRUMAN DO, KADIE K Ot F41.9 ANXIETY DISORDER, UNSPECIFIED 12/25/2016 TRUMAN DO, KADIE K Ot I10 ESSENTIAL (PRIMARY) HYPERTENSION 12/25/2016 TRUMAN DO, KADIE K Ot J44.9 CHRONIC OBSTRUCTIVE PULMONARY DISEASE, U 12/25/2016 TRUMAN DO, KADIE K Ot R07.89 OTHER CHEST PAIN 12/25/2016 TRUMAN DO, KADIE K Ot R07.9 CHEST PAIN, UNSPECIFIED 01/15/2017 MUNIRA ADAMS FACC, ALI FACP CCDS Ot 305.1 TOBACCO USE DISORDER 01/15/2017 MUNIRA ADAMS FACC, ALI FACP CCDS Ot 496 CHR AIRWAY OBSTRUCT NEC 01/15/2017 MUNIRA ADAMS FACC, ALI FACP CCDS Ot 785.1 PALPITATIONS 01/15/2017 RONI ANTHONY MD, FACCP CCDS Ot 786.09 RESPIRATORY ABNORM NEC 01/15/2017 MUNIRA ADAMS FACC, RONI FACP CCDS Ot 305.1 TOBACCO USE DISORDER 01/15/2017 RONI ANTHONY MD, FACC FACP CCDS Ot 496 CHR AIRWAY OBSTRUCT NEC 01/15/2017 RONI ANTHONY MD, FACC FACP CCDS Ot 785.1 PALPITATIONS 01/15/2017 RONI ANTHONY MD, FACC FACP CCDS Ot 786.09 RESPIRATORY ABNORM NEC 01/15/2017 DAMI VILLARREAL PLAY WRITER Ot Z12.31 ENCNTR SCREEN MAMMOGRAM FOR MALIGNANT NE 01/15/2017 ASHOK ADAMS, ROMY Huitron Ot R00.2 PALPITATIONS 01/16/2017 MERON WEATHERS MD Ot E11.65 TYPE 2 DIABETES MELLITUS WITH HYPERGLYCE 01/16/2017 MERON WEATHERS MD Ot I10 ESSENTIAL (PRIMARY) HYPERTENSION 01/16/2017 MERON WEATHERS MD Ot J44.9 CHRONIC OBSTRUCTIVE PULMONARY DISEASE, U 01/16/2017 MERON WEATHERS MD Ot R42 DIZZINESS AND GIDDINESS 01/16/2017 MERON WEATHERS MD A Ot Z79.84 CLINICAL CASE MANAGER (CURRENT) USE OF ORAL HYPOGLYC 01/16/2017 MERON WEATHERS MD Ot Z79.899 OTHER CLINICAL CASE MANAGER (CURRENT) DRUG THERAPY Procedures Code Description [place] [address] URINE DRUG SCREEN (IN-HOUSE) 10/22/2012 47740 ROUTINE VENIPUNCTURE 02/24/2013 33772 GLUCOSE 2012 70602 LIPID PANEL 02/24 [id number] ROUTINE VENIPUNCTURE 03/21/2013 29915 A1C (IN-HOUSE) [id number] URINE DRUG SCREEN (IN-HOUSE) 03/21/2013 52128 FSH 03/21/2013 34404 LH 03/21/2013 [id number] URINE DRUG SCREEN (IN-HOUSE) 09/01/2013 Cardiolog Roni Anthony 11/07/2013 [id number] ROUTINE VENIPUNCTURE 11/13/2013 29293 EKG, TRACING (IN-HOUSE) 11/13/2013 06156 URINE DRUG SCREEN (IN-HOUSE) 11/13/2013 10899 CBC 11/13/2013 52507 CMP 11/13/2013 61069 LIPID PANEL 11/13 62355 MAGNESIUM 2013 [id number] GFR CALC (RESULT ONLY) 11/13/2013 80083 TSH 11/13/2013 36418 URINE DRUG SCREEN (IN-HOUSE) 12/25/2013 [id number] [employer] DRUG SCREEN 03/09/2014 Results Test Result Range Complete blood count (CBC) with automated white blood cell (WBC) differential - 08/12/16 04:15 Blood leukocytes automated count (number/volume) 10.5 10*3/ uL 4.3-11.0 Blood erythrocytes automated count (number/volume) 4.91 10*6 /uL 4.35-5.85 Venous blood hemoglobin measurement (mass/volume) 15.7 g/dL 11.5-16.0 Blood hematocrit (volume fraction) 44 % 35-52 Automated erythrocyte mean corpuscular volume 90 [foz_us] 80-99 Automated erythrocyte mean corpuscular hemoglobin (mass per erythrocyte) 32 pg 25-34 Automated erythrocyte mean corpuscular hemoglobin concentration measurement ( mass/volume) 36 g/dL 32-36 Automated erythrocyte distribution width ratio 13.0 % 10.0-14.5 Automated blood platelet count (count/volume) 250 10*3/uL 130-400 Automated blood platelet mean volume measurement 9.3 [foz_us ] 7.4-10.4 Automated blood neutrophils/100 leukocytes 65 % 42-75 Automated blood lymphocytes/100 leukocytes 24 % 12-44 Blood monocytes/100 leukocytes 7 % 0-12 Automated blood eosinophils/100 leukocytes 3 % 0-10 Automated blood basophils/100 leukocytes 0 % 0-10 Blood neutrophils automated count (number/volume) 6.8 10*3 1.8-7.8 Blood lymphocytes automated count (number/volume) 2.5 10*3 1.0-4.0 Blood monocytes automated count (number/volume) 0.8 10*3 0.0-1.0 Automated eosinophil count 0.3 10*3/uL 0.0-0.3 Automated blood basophil count (count/volume) 0.0 10*3/uL 0.0-0.1 PT panel in platelet poor plasma by coagulation assay - 08/12/16 04:15 Prothrombin time (PT) in platelet poor plasma by coagulation assay 12.7 s 12.2-14.7 INR in platelet poor plasma or blood by coagulation assay 1.0 0.8-1.4 Activated partial thromboplastin time (aPTT) in platelet poor plasma bycoagulation assay - 08/12/16 04:15 Activated partial thromboplastin time (aPTT) in platelet poor plasma bycoagulation assay 26 s 24-35 Fibrin D-dimer FEU measurement in platelet poor plasma (mass/volume) - 04:15 Fibrin D-dimer FEU measurement in platelet poor plasma (mass/volume) 0.36 ug/mL 0.00-0.49 Comprehensive metabolic panel - 08/12/16 04:15 Serum or plasma sodium measurement (moles/volume) 137 mmol/ L 135-145 Serum or plasma potassium measurement (moles/volume) 3.5 mmol/L 3.6-5.0 Serum or plasma chloride measurement (moles/volume) 106 mmol /L 98-107 Carbon dioxide 18 mmol/L 21-32 Serum or plasma anion gap determination (moles/volume) 13 mmol/L 5-14 Serum or plasma urea nitrogen measurement (mass/volume) 10 mg/dL 7-18 Serum or plasma creatinine measurement (mass/volume) 0.75 mg /dL 0.60-1.30 Serum or plasma urea nitrogen/creatinine mass ratio 13 NRG Serum or plasma creatinine measurement with calculation of estimated glomerular filtration rate > NRG Serum or plasma glucose measurement (mass/volume) 139 mg/dL 70-105 Serum or plasma calcium measurement (mass/volume) 9.5 mg/dL 8.5-10.1 Serum or plasma total bilirubin measurement (mass/volume) 0.7 mg/dL 0.1-1.0 Serum or plasma alkaline phosphatase measurement (enzymatic activity/volume) 117 U/L 40-136 Serum or plasma aspartate aminotransferase measurement (enzymatic activity/ volume) 21 U/L 5-34 Serum or plasma alanine aminotransferase measurement (enzymatic activity/volume ) 54 U/L 0-55 Serum or plasma protein measurement (mass/volume) 6.8 g/dL 6.4-8.2 Serum or plasma albumin measurement (mass/volume) 4.2 g/dL 3.2-4.5 Magnesium - 08/12/16 04:15 Magnesium 2.2 mg/dL 1.8-2.4 Serum or plasma troponin i.cardiac measurement (mass/volume) - 08/12/16 04:15 Serum or plasma troponin i.cardiac measurement (mass/volume) < ng/mL <0.30 Myoglobin, serum - 08/12/16 04:15 Myoglobin, serum 22.6 ng/mL 10.0-92.0 Complete urinalysis with reflex to culture - 08/12/16 04:23 Urine color determination YELLOW NRG Urine clarity determination CLEAR NRG Urine pH measurement by test strip 6 5- 9 Specific gravity of urine by test strip 1.015 1.016-1.022 Urine protein assay by test strip, semi-quantitative NEGATIVE NEGATIVE Urine glucose detection by automated test strip NEGATIVE NEGATIVE Erythrocytes detection in urine sediment by light microscopy 2+ NEGATIVE Urine ketones detection by automated test strip NEGATIVE NEGATIVE Urine nitrite detection by test strip NEGATIVE NEGATIVE Urine total bilirubin detection by test strip NEGATIVE NEGATIVE Urine urobilinogen measurement by automated test strip (mass/volume) NORMAL NORMAL Urine leukocyte esterase detection by dipstick NEGATIVE NEGATIVE Automated urine sediment erythrocyte count by microscopy (number/high power field) [HPF] NRG Automated urine sediment leukocyte count by microscopy (number/high power field ) RARE NRG Bacteria detection in urine sediment by light microscopy LARGE NRG Squamous epithelial cells detection in urine sediment by light microscopy 5-10 NRG Crystals detection in urine sediment by light microscopy NONE NRG Casts detection in urine sediment by light microscopy NONE NRG Mucus detection in urine sediment by light microscopy NEGATIVE NRG Complete urinalysis with reflex to culture YES NRG Bacterial urine culture - 08/12/16 04:23 URINE CULTURE RESULTS MORE THAN 3 ISOLATES NRG Complete urinalysis with reflex to culture - 10/11/16 19:46 Urine color determination YELLOW NRG Urine clarity determination CLEAR NRG Urine pH measurement by test strip 7 5- 9 Specific gravity of urine by test strip 1.010 1.016-1.022 Urine protein assay by test strip, semi-quantitative NEGATIVE NEGATIVE Urine glucose detection by automated test strip 4+ NEGATIVE Erythrocytes detection in urine sediment by light microscopy 1+ NEGATIVE Urine ketones detection by automated test strip NEGATIVE NEGATIVE Urine nitrite detection by test strip NEGATIVE NEGATIVE Urine total bilirubin detection by test strip NEGATIVE NEGATIVE Urine urobilinogen measurement by automated test strip (mass/volume) NORMAL NORMAL Urine leukocyte esterase detection by dipstick NEGATIVE NEGATIVE Automated urine sediment erythrocyte count by microscopy (number/high power field) [HPF] NRG Automated urine sediment leukocyte count by microscopy (number/high power field ) NONE NRG Bacteria detection in urine sediment by light microscopy FEW NRG Squamous epithelial cells detection in urine sediment by light microscopy 0-2 NRG Crystals detection in urine sediment by light microscopy NONE NRG Casts detection in urine sediment by light microscopy NONE NRG Mucus detection in urine sediment by light microscopy NEGATIVE NRG Complete urinalysis with reflex to culture NO NRG Urine drug screening test - 10/11/16 19:46 Urine phencyclidine detection by screening method NEGATIVE NEGATIVE Urine benzodiazepines detection by screening method NEGATIVE NEGATIVE Urine cocaine detection NEGATIVE NEGATIVE Urine amphetamines detection by screening method NEGATIVE NEGATIVE Urine methamphetamine detection by screening method NEGATIVE NEGATIVE Urine cannabinoids detection by screening method NEGATIVE NEGATIVE Urine opiates detection by screening method NEGATIVE NEGATIVE Urine barbiturates detection NEGATIVE NEGATIVE Screening urine tricyclic antidepressants detection NEGATIVE NEGATIVE Urine methadone detection by screening method NEGATIVE NEGATIVE Urine oxycodone detection NEGATIVE NEGATIVE Urine propoxyphene detection NEGATIVE NEGATIVE Complete blood count (CBC) with automated white blood cell (WBC) differential - 10/11/16 19:55 Blood leukocytes automated count (number/volume) 6.9 10*3/ uL 4.3-11.0 Blood erythrocytes automated count (number/volume) 4.88 10*6 /uL 4.35-5.85 Venous blood hemoglobin measurement (mass/volume) 15.6 g/dL 11.5-16.0 Blood hematocrit (volume fraction) 45 % 35-52 Automated erythrocyte mean corpuscular volume 93 [foz_us] 80-99 Automated erythrocyte mean corpuscular hemoglobin (mass per erythrocyte) 32 pg 25-34 Automated erythrocyte mean corpuscular hemoglobin concentration measurement ( mass/volume) 34 g/dL 32-36 Automated erythrocyte distribution width ratio 13.5 % 10.0-14.5 Automated blood platelet count (count/volume) 228 10*3/uL 130-400 Automated blood platelet mean volume measurement 9.5 [foz_us ] 7.4-10.4 Automated blood neutrophils/100 leukocytes 77 % 42-75 Automated blood lymphocytes/100 leukocytes 14 % 12-44 Blood monocytes/100 leukocytes 8 % 0-12 Automated blood eosinophils/100 leukocytes 0 % 0-10 Automated blood basophils/100 leukocytes 0 % 0-10 Blood neutrophils automated count (number/volume) 5.3 10*3 1.8-7.8 Blood lymphocytes automated count (number/volume) 0.9 10*3 1.0-4.0 Blood monocytes automated count (number/volume) 0.6 10*3 0.0-1.0 Automated eosinophil count 0.0 10*3/uL 0.0-0.3 Automated blood basophil count (count/volume) 0.0 10*3/uL 0.0-0.1 PT panel in platelet poor plasma by coagulation assay - 10/11/16 19:55 Prothrombin time (PT) in platelet poor plasma by coagulation assay 12.6 s 12.2-14.7 INR in platelet poor plasma or blood by coagulation assay 1.0 0.8-1.4 Activated partial thromboplastin time (aPTT) in platelet poor plasma bycoagulation assay - 10/11/16 19:55 Activated partial thromboplastin time (aPTT) in platelet poor plasma bycoagulation assay 25 s 24-35 Comprehensive metabolic panel - 10/11/16 19:55 Serum or plasma sodium measurement (moles/volume) 138 mmol/ L 135-145 Serum or plasma potassium measurement (moles/volume) 4.0 mmol/L 3.6-5.0 Serum or plasma chloride measurement (moles/volume) 104 mmol /L 98-107 Carbon dioxide 24 mmol/L 21-32 Serum or plasma anion gap determination (moles/volume) 10 mmol/L 5-14 Serum or plasma urea nitrogen measurement (mass/volume) 9 mg /dL 7-18 Serum or plasma creatinine measurement (mass/volume) 0.96 mg /dL 0.60-1.30 Serum or plasma urea nitrogen/creatinine mass ratio 9 NRG Serum or plasma creatinine measurement with calculation of estimated glomerular filtration rate > NRG Serum or plasma glucose measurement (mass/volume) 271 mg/dL 70-105 Serum or plasma calcium measurement (mass/volume) 9.4 mg/dL 8.5-10.1 Serum or plasma total bilirubin measurement (mass/volume) 0.3 mg/dL 0.1-1.0 Serum or plasma alkaline phosphatase measurement (enzymatic activity/volume) 128 U/L 40-136 Serum or plasma aspartate aminotransferase measurement (enzymatic activity/ volume) 46 U/L 5-34 Serum or plasma alanine aminotransferase measurement (enzymatic activity/volume ) 107 U/L 0-55 Serum or plasma protein measurement (mass/volume) 7.2 g/dL 6.4-8.2 Serum or plasma albumin measurement (mass/volume) 4.2 g/dL 3.2-4.5 Magnesium - 10/11/16 19:55 Magnesium 2.1 mg/dL 1.8-2.4 Serum or plasma creatine kinase measurement (enzymatic activity/volume) - 10/11 19:55 Serum or plasma creatine kinase measurement (enzymatic activity/volume) 38 U/L 29-168 Serum or plasma troponin i.cardiac measurement (mass/volume) - 10/11/16 19:55 Serum or plasma troponin i.cardiac measurement (mass/volume) < ng/mL <0.30 Serum or plasma lithium measurement (moles/volume) - 10/11/16 19:55 BNP level < pg/mL <100.0 Serum or plasma thyrotropin measurement by detection limit <=0.05 miu/l (units/ volume) - 10/11/16 19:55 Serum or plasma thyrotropin measurement by detection limit <=0.05 miu/l (units/ volume) 0.70 u[iU]/mL 0.35-4.94 Serum or plasma ethanol measurement (mass/volume) - 10/11/16 19:55 Serum or plasma ethanol measurement (mass/volume) < mg/dL <10 Acute hepatitis panel - 10/11/16 19:55 Confirmatory quantitative serum or plasma hepatitis B virus surface antigen measurement Non-Reactive Non-Reactive Hepatitis A virus IgM antibody assay Non-Reactive Non-Reactive Hepatitis B virus core IgM antibody assay Non-Reactive Non-Reactive Serum hepatitis C virus antibody detection Non-Reactive Non-Reactive Complete blood count (CBC) with automated white blood cell (WBC) differential - 10/29/16 21:10 Blood leukocytes automated count (number/volume) 12.1 10*3/ uL 4.3-11.0 Blood erythrocytes automated count (number/volume) 4.57 10*6 /uL 4.35-5.85 Venous blood hemoglobin measurement (mass/volume) 14.7 g/dL 11.5-16.0 Blood hematocrit (volume fraction) 42 % 35-52 Automated erythrocyte mean corpuscular volume 91 [foz_us] 80-99 Automated erythrocyte mean corpuscular hemoglobin (mass per erythrocyte) 32 pg 25-34 Automated erythrocyte mean corpuscular hemoglobin concentration measurement ( mass/volume) 35 g/dL 32-36 Automated erythrocyte distribution width ratio 12.9 % 10.0-14.5 Automated blood platelet count (count/volume) 285 10*3/uL 130-400 Automated blood platelet mean volume measurement 8.9 [foz_us ] 7.4-10.4 Automated blood neutrophils/100 leukocytes 77 % 42-75 Automated blood lymphocytes/100 leukocytes 15 % 12-44 Blood monocytes/100 leukocytes 6 % 0-12 Automated blood eosinophils/100 leukocytes 1 % 0-10 Automated blood basophils/100 leukocytes 0 % 0-10 Blood neutrophils automated count (number/volume) 9.4 10*3 1.8-7.8 Blood lymphocytes automated count (number/volume) 1.9 10*3 1.0-4.0 Blood monocytes automated count (number/volume) 0.8 10*3 0.0-1.0 Automated eosinophil count 0.1 10*3/uL 0.0-0.3 Automated blood basophil count (count/volume) 0.0 10*3/uL 0.0-0.1 PT panel in platelet poor plasma by coagulation assay - 10/29/16 21:10 Prothrombin time (PT) in platelet poor plasma by coagulation assay 13.0 s 12.2-14.7 INR in platelet poor plasma or blood by coagulation assay 1.0 0.8-1.4 Activated partial thromboplastin time (aPTT) in platelet poor plasma bycoagulation assay - 10/29/16 21:10 Activated partial thromboplastin time (aPTT) in platelet poor plasma bycoagulation assay 26 s 24-35 Fibrin D-dimer FEU measurement in platelet poor plasma (mass/volume) - 21:10 Fibrin D-dimer FEU measurement in platelet poor plasma (mass/volume) 0.42 ug/mL 0.00-0.49 Comprehensive metabolic panel - 10/29/16 21:10 Serum or plasma sodium measurement (moles/volume) 138 mmol/ L 135-145 Serum or plasma potassium measurement (moles/volume) 3.7 mmol/L 3.6-5.0 Serum or plasma chloride measurement (moles/volume) 105 mmol /L 98-107 Carbon dioxide 19 mmol/L 21-32 Serum or plasma anion gap determination (moles/volume) 14 mmol/L 5-14 Serum or plasma urea nitrogen measurement (mass/volume) 11 mg/dL 7-18 Serum or plasma creatinine measurement (mass/volume) 0.78 mg /dL 0.60-1.30 Serum or plasma urea nitrogen/creatinine mass ratio 14 NRG Serum or plasma creatinine measurement with calculation of estimated glomerular filtration rate > NRG Serum or plasma glucose measurement (mass/volume) 147 mg/dL 70-105 Serum or plasma calcium measurement (mass/volume) 9.3 mg/dL 8.5-10.1 Serum or plasma total bilirubin measurement (mass/volume) 0.4 mg/dL 0.1-1.0 Serum or plasma alkaline phosphatase measurement (enzymatic activity/volume) 115 U/L 40-136 Serum or plasma aspartate aminotransferase measurement (enzymatic activity/ volume) 36 U/L 5-34 Serum or plasma alanine aminotransferase measurement (enzymatic activity/volume ) 63 U/L 0-55 Serum or plasma protein measurement (mass/volume) 7.2 g/dL 6.4-8.2 Serum or plasma albumin measurement (mass/volume) 4.4 g/dL 3.2-4.5 Magnesium - 10/29/16 21:10 Magnesium 2.0 mg/dL 1.8-2.4 Serum or plasma troponin i.cardiac measurement (mass/volume) - 10/29/16 21:10 Serum or plasma troponin i.cardiac measurement (mass/volume) < ng/mL <0.30 Myoglobin, serum - 10/29/16 21:10 Myoglobin, serum 78.0 ng/mL 10.0-92.0 Complete blood count (CBC) with automated white blood cell (WBC) differential - 12/18/16 18:29 Blood leukocytes automated count (number/volume) 7.1 10*3/ uL 4.3-11.0 Blood erythrocytes automated count (number/volume) 4.62 10*6 /uL 4.35-5.85 Venous blood hemoglobin measurement (mass/volume) 14.7 g/dL 11.5-16.0 Blood hematocrit (volume fraction) 42 % 35-52 Automated erythrocyte mean corpuscular volume 91 [foz_us] 80-99 Automated erythrocyte mean corpuscular hemoglobin (mass per erythrocyte) 32 pg 25-34 Automated erythrocyte mean corpuscular hemoglobin concentration measurement ( mass/volume) 35 g/dL 32-36 Automated erythrocyte distribution width ratio 12.5 % 10.0-14.5 Automated blood platelet count (count/volume) 217 10*3/uL 130-400 Automated blood platelet mean volume measurement 9.3 [foz_us ] 7.4-10.4 Automated blood neutrophils/100 leukocytes 69 % 42-75 Automated blood lymphocytes/100 leukocytes 15 % 12-44 Blood monocytes/100 leukocytes 11 % 0-12 Automated blood eosinophils/100 leukocytes 5 % 0-10 Automated blood basophils/100 leukocytes 0 % 0-10 Blood neutrophils automated count (number/volume) 4.9 10*3 1.8-7.8 Blood lymphocytes automated count (number/volume) 1.1 10*3 1.0-4.0 Blood monocytes automated count (number/volume) 0.8 10*3 0.0-1.0 Automated eosinophil count 0.4 10*3/uL 0.0-0.3 Automated blood basophil count (count/volume) 0.0 10*3/uL 0.0-0.1 Complete blood count (CBC) with automated white blood cell (WBC) differential - 12/22/16 03:27 Blood leukocytes automated count (number/volume) 7.7 10*3/ uL 4.3-11.0 Blood erythrocytes automated count (number/volume) 5.09 10*6 /uL 4.35-5.85 Venous blood hemoglobin measurement (mass/volume) 16.3 g/dL 11.5-16.0 Blood hematocrit (volume fraction) 46 % 35-52 Automated erythrocyte mean corpuscular volume 90 [foz_us] 80-99 Automated erythrocyte mean corpuscular hemoglobin (mass per erythrocyte) 32 pg 25-34 Automated erythrocyte mean corpuscular hemoglobin concentration measurement ( mass/volume) 36 g/dL 32-36 Automated erythrocyte distribution width ratio 12.6 % 10.0-14.5 Automated blood platelet count (count/volume) 236 10*3/uL 130-400 Automated blood platelet mean volume measurement 9.6 [foz_us ] 7.4-10.4 Automated blood neutrophils/100 leukocytes 43 % 42-75 Automated blood lymphocytes/100 leukocytes 42 % 12-44 Blood monocytes/100 leukocytes 8 % 0-12 Automated blood eosinophils/100 leukocytes 6 % 0-10 Automated blood basophils/100 leukocytes 1 % 0-10 Blood neutrophils automated count (number/volume) 3.3 10*3 1.8-7.8 Blood lymphocytes automated count (number/volume) 3.3 10*3 1.0-4.0 Blood monocytes automated count (number/volume) 0.6 10*3 0.0-1.0 Automated eosinophil count 0.5 10*3/uL 0.0-0.3 Automated blood basophil count (count/volume) 0.0 10*3/uL 0.0-0.1 PT panel in platelet poor plasma by coagulation assay - 12/22/16 03:27 Prothrombin time (PT) in platelet poor plasma by coagulation assay 12.1 s 12.2-14.7 INR in platelet poor plasma or blood by coagulation assay 0.9 0.8-1.4 Activated partial thromboplastin time (aPTT) in platelet poor plasma bycoagulation assay - 12/22/16 03:27 Activated partial thromboplastin time (aPTT) in platelet poor plasma bycoagulation assay 27 s 24-35 Serum or plasma lithium measurement (moles/volume) - 12/22/16 03:27 BNP level < pg/mL <100.0 Comprehensive metabolic panel - 12/22/16 03:27 Serum or plasma sodium measurement (moles/volume) 137 mmol/ L 135-145 Serum or plasma potassium measurement (moles/volume) 3.6 mmol/L 3.6-5.0 Serum or plasma chloride measurement (moles/volume) 104 mmol /L 98-107 Carbon dioxide 20 mmol/L 21-32 Serum or plasma anion gap determination (moles/volume) 13 mmol/L 5-14 Serum or plasma urea nitrogen measurement (mass/volume) 12 mg/dL 7-18 Serum or plasma creatinine measurement (mass/volume) 0.85 mg /dL 0.60-1.30 Serum or plasma urea nitrogen/creatinine mass ratio 14 NRG Serum or plasma creatinine measurement with calculation of estimated glomerular filtration rate > NRG Serum or plasma glucose measurement (mass/volume) 165 mg/dL 70-105 Serum or plasma calcium measurement (mass/volume) 9.7 mg/dL 8.5-10.1 Serum or plasma total bilirubin measurement (mass/volume) 0.5 mg/dL 0.1-1.0 Serum or plasma alkaline phosphatase measurement (enzymatic activity/volume) 160 U/L 40-136 Serum or plasma aspartate aminotransferase measurement (enzymatic activity/ volume) 31 U/L 5-34 Serum or plasma alanine aminotransferase measurement (enzymatic activity/volume ) 79 U/L 0-55 Serum or plasma protein measurement (mass/volume) 7.7 g/dL 6.4-8.2 Serum or plasma albumin measurement (mass/volume) 4.5 g/dL 3.2-4.5 Magnesium - 12/22/16 03:27 Magnesium 2.4 mg/dL 1.8-2.4 Serum or plasma creatine kinase measurement (enzymatic activity/volume) - 12/22 03:27 Serum or plasma creatine kinase measurement (enzymatic activity/volume) 63 U/L 29-168 Serum or plasma creatine kinase MB measurement (enzymatic activity/volume) - 03:27 Serum or plasma creatine kinase MB measurement (enzymatic activity/volume) 1.0 ng/mL <6.6 Serum or plasma troponin i.cardiac measurement (mass/volume) - 12/22/16 03:27 Serum or plasma troponin i.cardiac measurement (mass/volume) < ng/mL <0.30 Serum or plasma amylase measurement (enzymatic activity/volume) - 12/22/16 03: 27 Serum or plasma amylase measurement (enzymatic activity/volume) 43 U/L 25-125 Lipase - 12/22/16 03:27 Lipase 57 U/L 8-78 Serum or plasma ethanol measurement (mass/volume) - 12/22/16 03:27 Serum or plasma ethanol measurement (mass/volume) < mg/dL <10 Urine drug screening test - 12/22/16 03:35 Urine phencyclidine detection by screening method NEGATIVE NEGATIVE Urine benzodiazepines detection by screening method NEGATIVE NEGATIVE Urine cocaine detection NEGATIVE NEGATIVE Urine amphetamines detection by screening method NEGATIVE NEGATIVE Urine methamphetamine detection by screening method NEGATIVE NEGATIVE Urine cannabinoids detection by screening method NEGATIVE NEGATIVE Urine opiates detection by screening method NEGATIVE NEGATIVE Urine barbiturates detection NEGATIVE NEGATIVE Screening urine tricyclic antidepressants detection NEGATIVE NEGATIVE Urine methadone detection by screening method NEGATIVE NEGATIVE Urine oxycodone detection NEGATIVE NEGATIVE Urine propoxyphene detection NEGATIVE NEGATIVE Capillary blood glucose measurement by glucometer (mass/volume) - 01/15/17 00: 30 Capillary blood glucose measurement by glucometer (mass/volume) 196 mg/dL 70-110 Complete blood count (CBC) with automated white blood cell (WBC) differential - 01/15/17 00:55 Blood leukocytes automated count (number/volume) 9.5 10*3/ uL 4.3-11.0 Blood erythrocytes automated count (number/volume) 4.72 10*6 /uL 4.35-5.85 Venous blood hemoglobin measurement (mass/volume) 14.9 g/dL 11.5-16.0 Blood hematocrit (volume fraction) 42 % 35-52 Automated erythrocyte mean corpuscular volume 90 [foz_us] 80-99 Automated erythrocyte mean corpuscular hemoglobin (mass per erythrocyte) 32 pg 25-34 Automated erythrocyte mean corpuscular hemoglobin concentration measurement ( mass/volume) 35 g/dL 32-36 Automated erythrocyte distribution width ratio 12.6 % 10.0-14.5 Automated blood platelet count (count/volume) 243 10*3/uL 130-400 Automated blood platelet mean volume measurement 9.3 [foz_us ] 7.4-10.4 Automated blood neutrophils/100 leukocytes 73 % 42-75 Automated blood lymphocytes/100 leukocytes 16 % 12-44 Blood monocytes/100 leukocytes 8 % 0-12 Automated blood eosinophils/100 leukocytes 3 % 0-10 Automated blood basophils/100 leukocytes 0 % 0-10 Blood neutrophils automated count (number/volume) 7.0 10*3 1.8-7.8 Blood lymphocytes automated count (number/volume) 1.6 10*3 1.0-4.0 Blood monocytes automated count (number/volume) 0.7 10*3 0.0-1.0 Automated eosinophil count 0.3 10*3/uL 0.0-0.3 Automated blood basophil count (count/volume) 0.0 10*3/uL 0.0-0.1 Whole blood basic metabolic panel - 01/15/17 00:55 Serum or plasma sodium measurement (moles/volume) 138 mmol/ L 135-145 Serum or plasma potassium measurement (moles/volume) 4.0 mmol/L 3.6-5.0 Serum or plasma chloride measurement (moles/volume) 105 mmol /L 98-107 Carbon dioxide 21 mmol/L 21-32 Serum or plasma anion gap determination (moles/volume) 12 mmol/L 5-14 Serum or plasma urea nitrogen measurement (mass/volume) 15 mg/dL 7-18 Serum or plasma creatinine measurement (mass/volume) 0.70 mg /dL 0.60-1.30 Serum or plasma urea nitrogen/creatinine mass ratio 21 NRG Serum or plasma creatinine measurement with calculation of estimated glomerular filtration rate > NRG Serum or plasma glucose measurement (mass/volume) 179 mg/dL 70-105 Serum or plasma calcium measurement (mass/volume) 9.4 mg/dL 8.5-10.1 PT panel in platelet poor plasma by coagulation assay - 01/25/17 02:13 Prothrombin time (PT) in platelet poor plasma by coagulation assay 13.0 s 12.2-14.7 INR in platelet poor plasma or blood by coagulation assay 1.0 0.8-1.4 Activated partial thromboplastin time (aPTT) in platelet poor plasma bycoagulation assay - 01/25/17 02:13 Activated partial thromboplastin time (aPTT) in platelet poor plasma bycoagulation assay 23 s 24-35 Comprehensive metabolic panel - 01/25/17 02:13 Serum or plasma sodium measurement (moles/volume) 139 mmol/ L 135-145 Serum or plasma potassium measurement (moles/volume) 3.8 mmol/L 3.6-5.0 Serum or plasma chloride measurement (moles/volume) 105 mmol /L 98-107 Carbon dioxide 21 mmol/L 21-32 Serum or plasma anion gap determination (moles/volume) 13 mmol/L 5-14 Serum or plasma urea nitrogen measurement (mass/volume) 10 mg/dL 7-18 Serum or plasma creatinine measurement (mass/volume) 0.79 mg /dL 0.60-1.30 Serum or plasma urea nitrogen/creatinine mass ratio 13 NRG Serum or plasma creatinine measurement with calculation of estimated glomerular filtration rate > NRG Serum or plasma glucose measurement (mass/volume) 149 mg/dL 70-105 Serum or plasma calcium measurement (mass/volume) 9.5 mg/dL 8.5-10.1 Serum or plasma total bilirubin measurement (mass/volume) 0.4 mg/dL 0.1-1.0 Serum or plasma alkaline phosphatase measurement (enzymatic activity/volume) 124 U/L 40-136 Serum or plasma aspartate aminotransferase measurement (enzymatic activity/ volume) 27 U/L 5-34 Serum or plasma alanine aminotransferase measurement (enzymatic activity/volume ) 49 U/L 0-55 Serum or plasma protein measurement (mass/volume) 6.9 g/dL 6.4-8.2 Serum or plasma albumin measurement (mass/volume) 4.1 g/dL 3.2-4.5 Magnesium - 01/25/17 02:13 Magnesium 2.1 mg/dL 1.8-2.4 Serum or plasma creatine kinase measurement (enzymatic activity/volume) - 01/25 02:13 Serum or plasma creatine kinase measurement (enzymatic activity/volume) 63 U/L 29-168 Serum or plasma creatine kinase MB measurement (enzymatic activity/volume) - 02:13 Serum or plasma creatine kinase MB measurement (enzymatic activity/volume) 1.1 ng/mL <6.6 Serum or plasma troponin i.cardiac measurement (mass/volume) - 01/25/17 02:13 Serum or plasma troponin i.cardiac measurement (mass/volume) < ng/mL <0.30 Serum or plasma amylase measurement (enzymatic activity/volume) - 01/25/17 02: 13 Serum or plasma amylase measurement (enzymatic activity/volume) 35 U/L 25-125 Complete blood count (CBC) with automated white blood cell (WBC) differential - 01/25/17 02:13 Blood leukocytes automated count (number/volume) 10.8 10*3/ uL 4.3-11.0 Blood erythrocytes automated count (number/volume) 4.87 10*6 /uL 4.35-5.85 Venous blood hemoglobin measurement (mass/volume) 15.5 g/dL 11.5-16.0 Blood hematocrit (volume fraction) 43 % 35-52 Automated erythrocyte mean corpuscular volume 89 [foz_us] 80-99 Automated erythrocyte mean corpuscular hemoglobin (mass per erythrocyte) 32 pg 25-34 Automated erythrocyte mean corpuscular hemoglobin concentration measurement ( mass/volume) 36 g/dL 32-36 Automated erythrocyte distribution width ratio 12.5 % 10.0-14.5 Automated blood platelet count (count/volume) 255 10*3/uL 130-400 Automated blood platelet mean volume measurement 9.1 [foz_us ] 7.4-10.4 Automated blood neutrophils/100 leukocytes 65 % 42-75 Automated blood lymphocytes/100 leukocytes 23 % 12-44 Blood monocytes/100 leukocytes 7 % 0-12 Automated blood eosinophils/100 leukocytes 4 % 0-10 Automated blood basophils/100 leukocytes 0 % 0-10 Blood neutrophils automated count (number/volume) 7.0 10*3 1.8-7.8 Blood lymphocytes automated count (number/volume) 2.5 10*3 1.0-4.0 Blood monocytes automated count (number/volume) 0.8 10*3 0.0-1.0 Automated eosinophil count 0.4 10*3/uL 0.0-0.3 Automated blood basophil count (count/volume) 0.0 10*3/uL 0.0-0.1 Lipase - 01/25/17 02:13 Lipase 26 U/L 8-78 Serum or plasma ethanol measurement (mass/volume) - 01/25/17 02:13 Serum or plasma ethanol measurement (mass/volume) < mg/dL <10 Serum or plasma lithium measurement (moles/volume) - 01/25/17 02:13 BNP level < pg/mL <100.0 Encounters ACCT No. Visit Date/Time Discharge Status Pt. Type Provider Facility Loc./Unit Complaint [id number] 03/09/2014 15:25:00 03/09/2014 23: 59:59 CLS Outpatient DENZEL CHILEL MD [id number] 12/25/2013 15:27:00 12/25/2013 23: 59:59 CLS Outpatient DENZEL CHILEL MD [id number] 12/25/2013 15:27:00 12/25/2013 23: 59:59 CLS Outpatient DENZEL CHILEL MD [id number] 11/13/2013 07:59:00 11/13/2013 23: 59:59 CLS Outpatient DENZEL CHILEL MD [id number] 11/04/2013 16:08:00 11/04/2013 23: 59:59 CLS Outpatient DENZEL CHILEL MD [id number] 09/01/2013 14:25:00 09/01/2013 23: 59:59 CLS Outpatient DENZEL CHILEL MD [id number] 09/01/2013 14:25:00 09/01/2013 23: 59:59 CLS Outpatient DENZEL CHILEL MD [id number] 05/15/2013 11:35:00 05/15/2013 23: 59:59 CLS Outpatient YOEL GREEN DO [id number] 01/21/2013 10:26:00 01/21/2013 23: 59:59 CLS Outpatient YOEL GREEN DO [id number] 01/02/2013 16:04:00 01/02/2013 23: 59:59 CLS Outpatient DENZEL CHILEL MD [id number] 11/21/2012 10:28:00 11/21/2012 23: 59:59 CLS Outpatient YOEL GREEN DO [id number] 10/22/2012 14:03:00 10/22/2012 23: 59:59 CLS Outpatient DENZEL CHILEL MD [id number] 08/21/2012 11:41:00 08/21/2012 23: 59:59 [place] [id number] 08/21/2012 11:41:00 08/21/2012 23: 59:59 CLS Outpatient YOEL GREEN DO [id number] 04/23/2013 13:58:00 Document Registration [id number] 03/21/2013 15:05:00 Document Registration [id number] 02/24/2013 12:29:00 Document Registration [id number] 02/24/2013 12:29:00 Document Registration
--- OUTSIDE RECORDS SUMMARY | 2017-01-28 06:12 | XMS REPORT ---
Author ROMY Montalvo [facility] eClinicalWorks Address Unknown Phone Unavailable Care Team Providers Care Iv Technician Name Role Phone ROMY PULIDO CP Unavailable [...]
--- OUTSIDE RECORDS SUMMARY | 2017-01-28 06:12 | XMS REPORT ---
Author ROMY Montalvo [facility] eClinicalWorks Address Unknown Phone Unavailable Care Team Providers Care Ladle Pourer Name Role Phone ROMY PULIDO CP Unavailable [...]
--- OUTSIDE RECORDS SUMMARY | 2017-01-28 06:12 | XMS REPORT ---
Author ROMY Montalvo [facility] eClinicalWorks Address Unknown Phone Unavailable Care Team Providers Care Online Advertising Director Name Role Phone ROMY PUILDO CP Unavailable Allergies No Known Allergies Problems Problem Type Condition Code Onset Dates Condition Status Problem Insomnia G47.00 Active Problem Major depressive disorder, recurrent episode, moderate F33.1 Active Problem Prediabetes R73.09 Active Problem Generalized anxiety disorder F41.1 Active Problem Low back pain M54.5 Active Medications No Known Medications Results No Known Results Summary Purpose eClinicalWorks Submission
--- OUTSIDE RECORDS SUMMARY | 2017-01-28 06:12 | XMS REPORT ---
Author ROMY Monatlvo [facility] eClinicalWorks Address Unknown Phone Unavailable Care Team Providers Care Mail Handler Equipment Operator Name Role Phone ROMY PULIDO CP Unavailable [...]
--- OUTSIDE RECORDS SUMMARY | 2017-01-28 06:14 | XMS REPORT | Continuity of Care Document ---
Author Author [facility] Address Unknown Phone Unavailable Allergies Active Description Code Type Severity Reaction Onset Reported/Identified Relationship to Patient Clinical Status Yes Sulfa (Sulfonamide Antibiotics) [id number] Drug Allergy Unknown N/A 04/18/2006 Yes sulfa [...] Yes tramadol Drug Allergy 12/20/2010 Yes hydrocodone [id number] Drug Allergy Unknown SICK TO STOMACH 02/02/2014 [...] CHILEL MD 304.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 02/08/2009 DENEZL CHILEL MD 311 Mo Depress Nos 02/08/2009 [...] ADAMS, DENZEL 466.0 ACUTE BRONCHITIS 03/18/2009 GETACHEW DAAMS, DENZEL 466.0 ACUTE BRONCHITIS 03/18/2009 GETACHEW ADAMS, [...] Heart Disease 08/05/2009 YOEL GREEN DO V72.31 Infant Toddler Lead Teacher Exam, Routine 08/05/2009 YOEL GREEN DO V72.31 Infant Toddler Lead Teacher Exam, Routine 08/05/2009 DENZEL CHILEL MD V72.31 Infant Toddler Lead Teacher Exam, Routine 08/05/2009 YOEL GREEN DO V72.31 Infant Toddler Lead Teacher Exam, Routine 08/05/2009 DENZEL CHILEL MD V72.31 Infant Toddler Lead Teacher Exam, Routine 08/05/2009 YOEL GREEN DO V72.31 Infant Toddler Lead Teacher Exam, Routine 08/05/2009 V72.31 Infant Toddler Lead Teacher Exam, Routine 08/05/2009 V72.31 Infant Toddler Lead Teacher Exam, Routine 08/05/2009 V72.31 Infant Toddler Lead Teacher Exam, Routine 08/05/2009 V72.31 Infant Toddler Lead Teacher Exam, Routine 08/05/2009 YOEL GREEN DO V72.31 Infant Toddler Lead Teacher Exam, Routine 08/05/2009 GETACHEW ADAMS, DENZEL V72.31 Infant Toddler Lead Teacher Exam, Routine 08/05/2009 GETACHEW ADAMS, DENZEL V72.31 Infant Toddler Lead Teacher Exam, Routine 08/05/2009 GETACHEW ADAMS, DENZEL V72.31 Infant Toddler Lead Teacher Exam, Routine 08/05/2009 GETACHEW ADAMS, DENZEL V72.31 Infant Toddler Lead Teacher Exam, Routine 08/05/2009 GETACHEW ADAMS, DENZEL V72.31 Infant Toddler Lead Teacher Exam, Routine 08/05/2009 GETACHEW ADAMS, DENZEL V72.31 Infant Toddler Lead Teacher Exam, Routine 08/05/2009 GETACHEW ADAMS, DENZEL V72.31 Infant Toddler Lead Teacher Exam, Routine 12/02/2009 YOEL GREEN DO 305.1 [...] 12/02/2009 780.4 Dizziness And Giddiness 12/02/2009 YOEL GREEN [...] 06/21/2010 724.2 Lumbago/ Low Back Pain 06/21/2010 YOLE GREEN DO 724.2 Lumbago/ Low Back Pain [...] SITE NOT SPECIFIED 03/13/2011 YOEL GREEN DO 616.10 VAGINITIS AND VULVOVAGINITIS UNSPECIFIED 03/13/2011 DENZEL CHILEL MD 599.0 URINARY TRACT INFECTION SITE NOT SPECIFIED 03/13/2011 DENZEL CHILEL MD 616.10 VAGINITIS AND VULVOVAGINITIS UNSPECIFIED 03/13/2011 DENZEL CHILEL MD 599.0 URINARY TRACT INFECTION SITE NOT SPECIFIED 03/13/2011 DENZEL CHILEL MD 616.10 VAGINITIS AND VULVOVAGINITIS UNSPECIFIED 03/13/2011 DENZEL CIHLEL MD 599.0 URINARY TRACT INFECTION SITE NOT [...] GETACHEW ADAMS, DENZEL 300.00 ANXIETY UNSPEC 01/12/2012 EGTACHEW ADAMS, DENZEL 300.00 ANXIETY UNSPEC 01/12/2012 GETACHEW [...] DENZEL CHILEL MD 786.2 COUGH 10/22/2012 GETACHEW ADAMS, DENZEL 786.2 [...] MD Ot 737.30 IDIOPATHIC SCOLIOSIS 04/17/2014 SHAILESH ORTIZ MD Ot 785.1 PALPITATIONS 04/17/2014 SHAILESH ORTIZ [...] PATEL MD Ot 737.30 IDIOPATHIC SCOLIOSIS 05/02/2014 MAIRALUISA PATEL MD Ot 785.0 TACHYCARDIA NOS 05/02/2014 [...] FACP CCDS Ot 496 05/08/2015 MUNIRA ADAMS [facility], ALI FACP CCDS Ot 785.1 05/08/2015 MUNIRA ADAMS [facility], ALI FACP CCDS Ot 786.09 05/08/2015 [facility]HER [facility] TE[facility]ER Ot 780.52 INSOMNIA, UNSPECIFIED 05/08/2015 [facility] TE[facility] Ot V68.1 ISSUE REPEAT PRESCRIPT 02/25/2016 ROMY [...] RESPIRATORY ABNORM NEC 06/07/2016 DAMI VILLARREAL R EXPERIMENTAL PHYSICIST Ot Z12.31 ENCNTR SCREEN MAMMOGRAM FOR MALIGNANT NE 06/08/2016 DAMI VILLARREAL R EXPERIMENTAL PHYSICIST Ot Z12.31 ENCNTR SCREEN MAMMOGRAM FOR MALIGNANT NE 06/15/2016 DAMI VILLARREAL R EXPERIMENTAL PHYSICIST Ot Z12.31 ENCNTR SCREEN MAMMOGRAM FOR MALIGNANT NE 06/16/2016 DAMI VILLARREAL R EXPERIMENTAL PHYSICIST Ot Z12.31 ENCNTR SCREEN MAMMOGRAM FOR MALIGNANT NE 06/16/2016 DAMI VILLARREAL R EXPERIMENTAL PHYSICIST Ot Z12.31 ENCNTR SCREEN MAMMOGRAM FOR MALIGNANT NE 06/16/2016 ROMY PULIDO MD N Ot R00.2 PALPITATIONS 06/30/2016 DAMI VILLARREAL EXPERIMENTAL PHYSICIST Ot Z12.31 ENCNTR SCREEN MAMMOGRAM FOR MALIGNANT NE 07/04/2016 DAMI VILLARREAL R EXPERIMENTAL PHYSICIST Ot Z12.31 ENCNTR SCREEN MAMMOGRAM FOR MALIGNANT [...] CHR AIRWAY OBSTRUCT NEC 08/12/2016 MUNIRA ADAMS [facility], ALI FACP CCDS Ot 785.1 PALPITATIONS 08/12/2016 MUNIRA ADAMS [facility], ALI FACP CCDS Ot 786.09 RESPIRATORY ABNORM NEC 08/12/2016 ROMY PULIDO MD Ot R00.2 PALPITATIONS 08/12/2016 DAMI VILLARREAL EXPERIMENTAL PHYSICIST Ot Z12.31 ENCNTR SCREEN MAMMOGRAM FOR MALIGNANT NE 08/12/2016 MARIALUISA PATEL MD Ot F17.210 NICOTINE DEPENDENCE, CIGARETTES, UNCOMPL 08/12/2016 MARIALUISA PATEL MD Ot I47.9 PAROXYSMAL TACHYCARDIA, UNSPECIFIED 08/12/2016 MARIALUISA PATEL MD Ot R00.0 TACHYCARDIA, UNSPECIFIED 08/12/2016 MUNIRA ADAMS [facility], ALI FACP CCDS Ot 305.1 TOBACCO USE DISORDER 08/12/2016 MUNIRA ADAMS [facility], ALI FACP CCDS Ot 496 CHR AIRWAY OBSTRUCT NEC 08/12/2016 MUNIRA ADAMS [facility], ALI FACP CCDS Ot 785.1 PALPITATIONS 08/12/2016 MUNIRA ADAMS [facility], ALI FACP CCDS Ot 786.09 RESPIRATORY ABNORM NEC 08/12/2016 MUNIRA ADAMS [facility], ALI FACP CCDS Ot 305.1 TOBACCO USE DISORDER 08/12/2016 MUNIRA ADAMS [facility], ALI FACP CCDS Ot 496 CHR AIRWAY OBSTRUCT NEC 08/12/2016 MUNIRA ADAMS [facility], ALI FACP CCDS Ot 785.1 PALPITATIONS 08/12/2016 MUNIRA ADAMS [facility], ALI FACP CCDS Ot 786.09 RESPIRATORY ABNORM NEC 08/12/2016 ROMY PULIDO MD N Ot R00.2 PALPITATIONS 08/12/2016 DAMI VILLARREAL EXPERIMENTAL PHYSICIST Ot Z12.31 ENCNTR SCREEN MAMMOGRAM FOR MALIGNANT [...] 786.09 RESPIRATORY ABNORM NEC 10/11/2016 DAMI VILLARREAL EXPERIMENTAL PHYSICIST Ot Z12.31 ENCNTR SCREEN MAMMOGRAM FOR MALIGNANT NE 10/11/2016 ROMY PULIDO MD Ot R00.2 PALPITATIONS 10/11/2016 KADIE LAUGHLIN DO Ot F17.210 NICOTINE DEPENDENCE, CIGARETTES, UNCOMPL 10/11/2016 KADIE LAUGHLIN DO Ot F41.9 ANXIETY DISORDER, UNSPECIFIED 10/11/2016 KADIE LAUGHLIN DO Ot J44.9 CHRONIC OBSTRUCTIVE PULMONARY DISEASE, U 10/11/2016 KDAIE LAUGHLIN DO Ot R00.2 PALPITATIONS 10/11/2016 KADIE LAUGHLIN DO Ot Z79.899 OTHER LONG-TERM (CURRENT) DRUG THERAPY 10/29/2016 [facility] TE[facility]ER Ot F17.210 NICOTINE DEPENDENCE, CIGARETTES, UNCOMPL 10/29/2016 [facility] TE[facility] Ot F41.9 ANXIETY DISORDER, UNSPECIFIED 10/29/2016 KRISTOPHER MILLER APRN Ot R00.2 PALPITATIONS 10/29/2016 KRISTOPHER MILLER APRN Ot R06.02 SHORTNESS OF BREATH 10/29/2016 [facility] TEACHER Ot Z79.899 OTHER SHIP JOINER (CURRENT) DRUG THERAPY 10/29/2016 MUNIRA ADAMS FACC, [...] Ot 786.09 RESPIRATORY ABNORM NEC 10/29/2016 DAMI VLILARREAL EXPERIMENTAL PHYSICIST Ot Z12.31 ENCNTR SCREEN MAMMOGRAM FOR MALIGNANT NE 10/29/2016 ROMY PULIDO MD Ot R00.2 PALPITATIONS 10/31/2016 [facility] TE[facility]ER Ot F17.210 NICOTINE DEPENDENCE, CIGARETTES, UNCOMPL 10/31/2016 [facility] TEACHER Ot F41.9 ANXIETY DISORDER, UNSPECIFIED 10/31/2016 MILLERKRISTOPHER BAILON [facility] TEACHER Ot R00.2 PALPITATIONS 10/31/2016 MILLERKRISTOPHER BAILON [facility] TEACHER Ot R06.02 SHORTNESS OF BREATH 10/31/2016 K[facility] TEACHER Ot Z79.899 OTHER LONG-TERM (CURRENT) DRUG THERAPY 11/01/2016 MILLERKRISTOPHER BAILON [facility] TEACHER Ot F17.210 NICOTINE DEPENDENCE, CIGARETTES, UNCOMPL 11/01/2016 MILLERKRISTOPHER BAILON [facility] TE[facility]ER Ot F41.9 ANXIETY DISORDER, UNSPECIFIED 11/01/2016 [facility] TEACHER Ot R00.2 PALPITATIONS 11/01/2016 [facility] TEACHER Ot R06.02 SHORTNESS OF BREATH 11/01/2016 MILLERKRISTOPHER BAILON [facility] TEACHER Ot Z79.899 OTHER SHIP JOINER (CURRENT) DRUG THERAPY 12/18/2016 MUNIRA ADAMS FACC, [...] 786.09 RESPIRATORY ABNORM NEC 12/18/2016 DAMI VILLARREAL EXPERIMENTAL PHYSICIST Ot Z12.31 ENCNTR SCREEN MAMMOGRAM FOR MALIGNANT [...] 786.09 RESPIRATORY ABNORM NEC 01/15/2017 DAMI VILLARREAL EXPERIMENTAL PHYSICIST Ot Z12.31 ENCNTR SCREEN MAMMOGRAM FOR MALIGNANT [...] 01/16/2017 MERON WEATHERS MD A Ot Z79.84 SHIP JOINER (CURRENT) USE OF ORAL HYPOGLYC 01/16/2017 MERON WEATHERS MD Ot Z79.899 OTHER SHIP JOINER (CURRENT) DRUG THERAPY Procedures Code [place] [address] URINE DRUG SCREEN (IN-HOUSE) 10/22/2012 23107 ROUTINE VENIPUNCTURE 02/24/2013 59363 GLUCOSE 2012 32866 LIPID PANEL 02/24 44021 ROUTINE VENIPUNCTURE 03/21/2013 65011 A1C (IN-HOUSE) 90724 URINE DRUG SCREEN (IN-HOUSE) 03/21/2013 89703 FSH 03/21/2013 70829 LH 03/21/2013 55732 URINE DRUG SCREEN (IN-HOUSE) 09/01/2013 Cardiolog Roni Anthony 11/07/2013 85388 ROUTINE VENIPUNCTURE 11/13/2013 44095 EKG, TRACING (IN-HOUSE) 11/13/2013 53235 URINE DRUG SCREEN (IN-HOUSE) 11/13/2013 48640 CBC 11/13/2013 70801 CMP 11/13/2013 40785 LIPID PANEL 11/13 88237 MAGNESIUM 2013 [id number] GFR CALC (RESULT ONLY) 11/13/2013 48816 TSH 11/13/2013 93100 URINE DRUG SCREEN (IN-HOUSE) 12/25/2013 643739 [employer] DRUG SCREEN 03/09/2014 Results Test Result [...] Status Pt. Type Provider Facility Loc./Unit Complaint [id number] 03/09/2014 15:25:00 03/09/2014 23: 59:59 CLS Outpatient DENZEL CHILEL MD [id number] 12/25/2013 15:27:00 12/25/2013 23: 59:59 CLS Outpatient DENZEL CHILEL MD [id number] 12/25/2013 15:27:00 12/25/2013 23: 59:59 CLS Outpatient DENZEL CHILEL MD [id number] 11/13/2013 07:59:00 11/13/2013 23: 59:59 CLS Outpatient DENZEL CHILEL MD [id number] 11/04/2013 16:08:00 11/04/2013 23: 59:59 CLS Outpatient DENZEL CHILEL MD [id number] 09/01/2013 14:25:00 09/01/2013 23: 59:59 CLS Outpatient DENZEL CHILEL MD [id number] 09/01/2013 14:25:00 09/01/2013 23: 59:59 CLS Outpatient DENZEL CHILEL MD [id number] 05/15/2013 11:35:00 05/15/2013 23: 59:59 CLS Outpatient YOEL GREEN DO [id number] 01/21/2013 10:26:00 01/21/2013 23: 59:59 CLS Outpatient YOEL GREEN DO [id number] 01/02/2013 16:04:00 01/02/2013 23: 59:59 CLS Outpatient DENZEL CHILEL MD [id number] 11/21/2012 10:28:00 11/21/2012 23: 59:59 CLS Outpatient YOEL GREEN DO [id number] 10/22/2012 14:03:00 10/22/2012 23: 59:59 CLS Outpatient DENZEL CHILEL MD [id number] 08/21/2012 11:41:00 08/21/2012 23: 59:59 [place] [id number] 08/21/2012 11:41:00 08/21/2012 23: 59:59 CLS Outpatient YOEL GREEN DO [id number] 04/23/2013 13:58:00 Document Registration [id number] 03/21/2013 15:05:00 Document Registration [id number] 02/24/2013 12:29:00 Document Registration [id number] 02/24/2013 12:29:00 Document Registration
--- OUTSIDE RECORDS SUMMARY | 2017-01-28 06:14 | XMS REPORT ---
Author GABRIELA Reynolds Organization eClinicalWorks Address Unknown Phone Unavailable Care Team Providers Care Chef'S Assistant Name Role Phone GABRIELA DOBSON CP Unavailable Allergies, Adverse Reactions, Alerts Substance Reaction Event Type Sulfamethoxazole-Trimethoprim Info Not Available Drug Allergy Codeine Sulfate Info Not Available Drug Allergy Problems Problem Type Condition Code Onset Dates Condition Status Problem Insomnia G47.00 Active Problem Major depressive disorder, recurrent episode, moderate F33.1 Active Problem Prediabetes R73.09 Active Assessment Abdominal pain, right upper quadrant R10.11 Active Problem Generalized anxiety disorder F41.1 Active Problem Low back pain M54.5 Active Medications Medication Code System Code Instructions Start Date End Date Status Dosage Pantoprazole Sodium [facility] [address]-72 40 mg Orally Once a day Jul 05, 2016 1 tablet Procedures Procedure Coding System Code Date Office Visit, Est Pt., Level 3 CPT-4 12507 Jul 05, 2016 [facility] VISIT ESTABLISHED PATIENT CPT-4 G0467 Jul 05, 2016 Vital Signs Date/Time: Jul 05, 2016 Cardiac Monitoring Heart Rate 86 bpm Weight 172.0 lbs Height 61 in BMI 32.50 Index Blood Pressure Diastolic 78 mmHg Blood Pressure Systolic 106 mmHg Results No Known Results Summary Purpose eClinicalWorks Submission
--- OUTSIDE RECORDS SUMMARY | 2017-01-28 06:14 | XMS REPORT ---
Author ROMY Montalvo [facility] eClinicalWorks Address Unknown Phone Unavailable Care Team Providers Care Ring Striker Name Role Phone ROMY PULIDO CP Unavailable Allergies, Adverse Reactions, Alerts Substance Reaction Event Type Sulfamethoxazole-Trimethoprim Info Not Available Drug Allergy Codeine Sulfate Info Not Available Drug Allergy Problems Problem Type Condition Code Onset Dates Condition Status Assessment Elevated fasting glucose R73.01 Active Assessment Palpitations R00.2 Active Problem Insomnia G47.00 Active Problem Major depressive disorder, recurrent episode, moderate F33.1 Active Problem Prediabetes R73.09 Active Assessment Prediabetes R73.09 Active Assessment Elevated ALT measurement R74.0 Active Problem Generalized anxiety disorder F41.1 Active Problem Low back pain M54.5 Active Medications Medication Code System Code Instructions Start Date End Date Status Dosage Sertraline HCl [facility] [address]-49 50 MG Orally Once a day January 06, 2016 1 tablet Naprosyn [facility] [address]-47 500 MG Orally 2 times a day, pc Dec 09, 2015 1 tablet as needed Procedures Procedure Coding System Code Date Office Visit, Est Pt., Level 3 CPT-4 90241 May 18, 2016 [facility] VISIT ESTABLISHED PATIENT CPT-4 G0467 May 18, 2016 Vital Signs Date/Time: May 18, 2016 Cardiac Monitoring Heart Rate 88 bpm Weight 175.6 lbs Height 61 in Blood Pressure Diastolic 84 mmHg Blood Pressure Systolic 122 mmHg Results No Known Results Summary Purpose eClinicalWorks Submission
--- OUTSIDE RECORDS SUMMARY | 2017-01-28 06:15 | XMS REPORT ---
Author DENZEL Clifford [facility] eClinicalWorks Address Unknown Phone Unavailable Care Team Providers Care Dental Laboratory Manager Name Role Phone DENZEL CHILEL CP Unavailable Allergies, Adverse Reactions, Alerts Substance Reaction Event Type Sulfamethoxazole-Trimethoprim Info Not Available Drug Allergy Codeine Sulfate Info Not Available Drug Allergy Problems Problem Type Condition Code Onset Dates Condition Status Problem Palpitations 785.1 Active Problem Unspecified psychosis 298.9 Active Problem Cough 786.2 Active Problem Pneumonia, organism unspecified 486 Active Problem Unspecified arthropathy, site unspecified 716.90 Active Problem Anxiety state, unspecified 300.00 Active Problem Other abnormal glucose 790.29 Active Problem Symptomatic menopausal or female climacteric states 627.2 Active Problem Urinary tract infection, site not specified 599.0 Active Problem Other dysfunctions of sleep stages or arousal from sleep 307.47 Active Assessment Anxiety F41.9 Active Problem Encounter for long-term (current) use of other medications V58.69 Active Problem Other dyspnea and respiratory abnormalities 786.09 Active Assessment Scoliosis M41.9 Active Problem Nondependent tobacco use disorder 305.1 Active Problem Paroxysmal supraventricular tachycardia 427.0 Active Problem Chronic airway obstruction, not elsewhere classified 496 Active Medications Medication Code System Code Instructions Start Date End Date Status Dosage Temazepam [facility] [address]-21 15 MG Orally Once a day Dec 09, 2015 1 capsule at bedtime as needed Naprosyn [facility] [address]-04 500 MG Orally 2 times a day, pc Dec 09, 2015 1 tablet as needed Procedures Procedure Coding System Code Date Office Visit, Est Pt., Level 3 CPT-4 60910 Dec 09, 2015 [facility] VISIT ESTABLISHED PATIENT CPT-4 G0467 Dec 09, 2015 Vital Signs Date/Time: Dec 09, 2015 Temperature 98.1 F Weight 160 lbs Height 61 in BMI 30.23 Index Blood Pressure Diastolic 68 mmHg Blood Pressure Systolic 110 mmHg Cardiac Monitoring Heart Rate 70 bpm Results No Known Results Summary Purpose eClinicalWorks Submission
--- OUTSIDE RECORDS SUMMARY | 2017-01-28 06:15 | XMS REPORT ---
Author Author DAMI VILLARREAL Organization [facility] Address [address] [place] [address] Care Team Providers Care Note Taker Name Role Phone DAMI VILLARREAL Unavailable PROBLEMS Type Condition ICD9-CM Code QZJ85-GY Code Onset Dates Condition Status SNOMED Code Assessment Vaginal discharge N89.8 May, Active 162989062 Assessment Encounter for Papanicolaou smear for cervical cancer screening Z12.4 May, Active 117373421 Assessment Screening breast examination Z12.39 May, Active 268001703 Assessment Candidal vaginitis B37.3 May, Active 44665765 Problem Prediabetes R73.09 Active 808190746 Problem Insomnia G47.00 Active 522492587 Problem Low back pain M54.5 Active 242392334 Assessment Routine gynecological examination Z01.419 May, Active 127513395900801 Problem Major depressive disorder, recurrent episode, moderate F33.1 Active 812309470 Problem Generalized anxiety disorder F41.1 Active 48483106 ALLERGIES Substance Reaction Event Type Date Status Sulfamethoxazole-Trimethoprim Unknown Drug Allergy May, Active Codeine Sulfate Unknown Drug Allergy May, Active SOCIAL HISTORY No smoking Hx information available PLAN OF CARE VITAL SIGNS Height 61 in 2016-05-31 Weight 174.0 lbs 2016-05-31 Heart Rate 78 bpm 2016-05-31 Respiratory Rate 20 2016-05-31 BMI 32.87 kg/m2 2016-05-31 Blood pressure systolic 130 mmHg 2016-05-31 Blood pressure diastolic 76 mmHg 2016-05-31 MEDICATIONS Medication Instructions Dosage Frequency Start Date End Date Duration Status Diflucan 150 MG Orally once 1 tablet May, Jun, 10 day(s ) Active Sertraline HCl 50 MG Orally Once a day 1 tablet 24h Jan, 30 day (s) Active Naprosyn 500 MG Orally 2 times a day, pc 1 tablet as needed Dec, Active RESULTS Name Result Date Reference Range BACTERIAL VAGINOSIS (IN HOUSE) 2016-05-31 RESULTS Control + Lot # [id number] Exp date 11/2016 PAP TEST, HPV IF ASCUS 2016-05-31 DIAGNOSIS: Specimen adequacy: Clinician provided ICD10: Performed by: . . Note: . CULTURE, GENITAL 2016-05-31 Genital Culture, Routine Final report Result 1 PDF Report 2016-05-31 PDF Report1 LCLS Mammogram, Bilateral Screening 2016-06-07 PROCEDURES Procedure Date Ordered Related Diagnosis Body Site LAB NOT BILLED BY [facility] May 31, 2016 FQ VISIT NEW PATIENT May 31, 2016 PEREZ VAG, DNA, DIR PROBE May 31, 2016 SCR PAP SMER;NEW PT OBTAIN PREP&CONVY-LAB May 31, 2016 Preventive Care Est Pt. Age 40-64 May 31, 2016 IMMUNIZATIONS No Known Immunizations
== END 2017-01-25 03:27 | disposition home or self-care (01) ==
LOC: EDUNIT# 02:02 → ER 02:04
DX: F41.9 Anxiety disorder, unspecified (principal); R07.89 Other chest pain; J44.9 Chronic obstructive pulmonary disease, unspecified; I10 Essential (primary) hypertension; F17.210 Nicotine dependence, cigarettes, uncomplicated
CPT/HCPCS: 36415; 71010; 80053; 80320; 82150; 82550; 82553; 83690; 83735; 83880; 84484; 85025; 85610; 85730; 93005; 93041

== ENCOUNTER 2017-01-28 01:20 | Emergency (ER) | payer MEDICARE, MEDICAID ==
[~2017-01-28] VITALS: Ht 154.9 cm; Wt 72.6 kg
[~2017-01-28 01:20] MED LIST changes: +HYDR-700 PO; +METF500T8 PO
[2017-01-28] MEDS ORDERED: ASPIRIN 81 MG CHEW (CHILDREN'S ASA) PO ONE (01:45)
[2017-01-28 01:53] LABS: BASOPHILS % (AUTO) 0 % (0-10); EOSINOPHILS # (AUTO) 0.4 10^3/uL (0.0-0.3); EOSINOPHILS % (AUTO) 5 % (0-10); LYMPHOCYTES # (AUTO) 2.5 X 10^3 (1.0-4.0); LYMPHOCYTES % (AUTO) 30 % (12-44); MEAN CORPUSCULAR HEMOGLOBIN 32 PG (25-34); MEAN CORPUSCULAR HGB CONC 35 G/DL (32-36); MEAN CORPUSCULAR VOLUME 90 FL (80-99); MEAN PLATELET VOLUME 9.2 FL (7.4-10.4); MONOCYTES # (AUTO) 0.5 X 10^3 (0.0-1.0); MONOCYTES % (AUTO) 6 % (0-12); NEUTROPHILS # (AUTO) 4.7 X 10^3 (1.8-7.8); NEUTROPHILS % (AUTO) 58 % (42-75); PLATELET COUNT 229 10^3/uL (130-400); RED BLOOD COUNT 4.73 10^6/uL (4.35-5.85); RED CELL DISTRIBUTION WIDTH 12.5 % (10.0-14.5); WHITE BLOOD COUNT 8.2 10^3/uL (4.3-11.0)
[2017-01-28 02:05] LABS: PROTHROMBIN TIME PATIENT 12.4 SEC (12.2-14.7)
--- NOTE | 2017-01-28 02:14 | ED Chest Pain ---
General Stated Complaint: CHEST PAIN Source: patient, EMS, old records Exam Limitations: no limitations History of Present Illness Time seen by provider: 01:23 Initial Comments This 51-year-old woman presents to the emergency room via EMS with complaints of chest pain in the left lateral chest wall and central sternal area. The pain is stabbing and intermittent. She reports left arm has felt numb and painful. She has a sensation of rapid irregular heart rate but monitor shows normal sinus rhythm. Review of patient's chart notes that she has been seen numerous times recently including a visit on January 25 for anxiety, January 15 for hyperglycemia and dizziness, December 22 for chest pain, and December 18 for bronchitis. She has also been seen by her PCP in that amount of time. She has had 6 total visits since December 18. Review of her chart notes a negative stress test in 2013. Symptoms reportedly started around 20:00. Pain has since resolved. She is tender in the epigastrium. Her bicycle mechanic is Dr. Anthony and her primary care providers Dr. Pulido. She is rather anxious and tearful. She has a history of anxiety. Allergies and Home Medications Allergies Coded Allergies: Sulfa (Sulfonamide Antibiotics) (Verified Allergy, Unknown, 04/18/06) hydrocodone (Verified Adverse Reaction, Unknown, SICK TO STOMACH, 02/02/14) Home Medications Hydroxyzine HCl 25 Mg Tablet, 25 MG PO UD, #90 (Reported) Metformin HCl 500 Mg Tab.er.24h, 500 MG PO DAILY, #30 (Reported) Omeprazole 20 Mg Tablet.dr, 20 MG PO DAILY, #30 Prescribed by: SHAILESH SINHA on 01/28/17 0408 Review of Systems Constitutional: no symptoms reported EENTM: No Symptoms Reported Respiratory: No Symptoms Reported Cardiovascular: See HPI Gastrointestinal: See HPI 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: No Symptoms Reported Musculoskeletal: no symptoms reported Skin: no symptoms reported Psychiatric/Neurological: See HPI, Anxiety Endocrine: No Symptoms Reported Past Pqwyleq-Muzngc-Vdjcvb Hx Patient Social History Type Used: Cigarettes 2nd Hand Smoke Exposure: Yes Recent Hopitalizations: No Seasonal Allergies Seasonal Allergies: No Surgeries HX Surgeries: Yes Surgeries: Section, 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, Joint Replacement, Orthopedic Respiratory Hx Respiratory Disorders: Yes Respiratory Disorders: COPD, Emphysema Cardiovascular Hx Cardiac Disorders: Yes Cardiac Disorders: Hypertension, Palpitations Neurological Hx Neurological Disorders: Yes (RESTLESS LEG SYNDROME) 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 System 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 Hx 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 Disorders: No Gastrointestinal Hx Gastrointestinal Disorders: No Musculoskeletal Hx Musculoskeletal Disorders: Yes (RESTLESS LEG SYNDROME; RIGHT HIP FX/ REPLACEMENT) Musculoskeletal Disorders: Arthritis, Scoliosis, Chronic Back Pain, Fractures Endocrine Hx Endocrine Disorders: Yes Endocrine Disorders: Diabetes, Non-Insulin dep HEENT HX ENT Disorders: No (DENTURES) Cancer Hx Cancer: No Psychosocial Hx Psychiatric Problems: Yes Behavioral Health Disorders: Sleep Difficulties, Anxiety, Bipolar, Depression Integumentary HX Skin/Integumentary Disorder: No Blood Transfusions Hx Blood Disorders: No Adverse Reaction to a Blood Tr: No Family Medical History Significant Family History: Psychiatric Problems Physical Exam Vital Signs Vital Sign - Last 12Hours Capillary Refill : General Appearance: WD/WN, Anxious HEENT: PERRL/EOMI, Normal ENT Inspection Neck: Normal Inspection Respiratory: Chest Non Tender, Lungs Clear, Normal Breath Sounds, No Accessory Muscle Use, No Respiratory Distress Cardiovascular: Regular Rate, Rhythm, No Edema, No Murmur Gastrointestinal: Normal Bowel Sounds, Soft, Tenderness (epigastrium) Extremity: Normal Inspection, Non Tender, No Calf Tenderness, No Pedal Edema Neurologic/Psychiatric: Alert, Oriented x3, No Motor/Sensory Deficits, nursing executive II- XII Norm as Tested, Other (anxious) Skin: Normal Color, Warm/Dry Progress/Results/Core Measures Results/Orders Lab Results Laboratory Tests Test 01/28/17 01:45 Range/Units White Blood Count 8.2 4.3-11.0 10^3/uL Red Blood Count 4.73 4.35-5.85 10^6/uL Hemoglobin 14.9 11.5-16.0 G/DL Hematocrit 42 35-52 % Mean Corpuscular Volume 90 80-99 FL Mean Corpuscular Hemoglobin 32 25-34 PG Mean Corpuscular Hemoglobin Concent 35 32-36 G/DL Red Cell Distribution Width 12.5 10.0-14.5 % Platelet Count 229 130-400 10^3/uL Mean Platelet Volume 9.2 7.4-10.4 FL Neutrophils (%) (Auto) 58 42-75 % Lymphocytes (%) (Auto) 30 12-44 % Monocytes (%) (Auto) 6 0-12 % Eosinophils (%) (Auto) 5 0-10 % Basophils (%) (Auto) 0 0-10 % Neutrophils # (Auto) 4.7 1.8-7.8 X 10^3 Lymphocytes # (Auto) 2.5 1.0-4.0 X 10^3 Monocytes # (Auto) 0.5 0.0-1.0 X 10^3 Eosinophils # (Auto) 0.4 H 0.0-0.3 10^3/uL Basophils # (Auto) 0.0 0.0-0.1 10^3/uL Prothrombin Time 12.4 12.2-14.7 SEC INR Comment 1.0 0.8-1.4 Activated Partial Thromboplast Time 28 24-35 SEC Sodium Level 139 135-145 MMOL/L Potassium Level 3.8 3.6-5.0 MMOL/L Chloride Level 104 98-107 MMOL/L Carbon Dioxide Level 25 21-32 MMOL/L Anion Gap 10 5-14 MMOL/L Blood Urea Nitrogen 13 7-18 MG/DL Creatinine 0.74 0.60-1.30 MG/DL Estimat Glomerular Filtration Rate > 60 BUN/Creatinine Ratio 18 Glucose Level 140 H 70-105 MG/DL Calcium Level 9.5 8.5-10.1 MG/DL Magnesium Level 2.0 1.8-2.4 MG/DL Total Bilirubin 0.3 0.1-1.0 MG/DL Aspartate Amino Transf (AST/SGOT) 22 5-34 U/L Alanine Aminotransferase (ALT/SGPT) 42 0-55 U/L Alkaline Phosphatase 114 40-136 U/L Myoglobin 23.7 10.0-92.0 NG/ML Troponin I < 0.30 <0.30 NG/ML Total Protein 6.6 6.4-8.2 G/DL Albumin 3.9 3.2-4.5 G/DL Lipase 38 8-78 U/L My Orders Orders - SHAILESH ORTIZ MD Cbc With Automated Diff (01/28/17 01:35) Magnesium (01/28/17 01:35) Chest 1 View, Ap/Pa Only (01/28/17:35) Ekg Tracing (01/28/17:35) Cardiac Profile 1 (01/28/17 01:35) Comprehensive Metabolic Panel (01/28/17 01:35) Myoglobin Serum (01/28/17 01:35) Protime With Inr (01/28/17 01:35) Partial Thromboplastin Time (01/28/17 01:35) O2 (01/28/17 01:35) Monitor-Rhythm Ecg Trace Only (01/28/17 01:35) Aspirin Chewable Tablet (Baby Aspirin Ch (01/28/17 01:45) Saline Lock/Iv-Start (01/28/17 01:35) Lidocaine 2% Viscous 15 Ml (Xylocaine Vi (01/28/17 03:30) Antacid Suspension (Mylanta Suspension (01/28/17 03:30) Lipase (01/28/17 03:22) Alprazolam Tablet (Xanax Tablet) (01/28/17 03:45) Medications Given in ED Vital Signs/I&O Vital Sign - Last 12Hours 01/28/17 01/28/17 01/28/17 01:20 01:20 04:14 Temp 96.3 96.3 Pulse 80 71 Resp 20 20 B/P (MAP) 135/74 Pulse Ox 98 97 O2 Delivery Room Air Room Air Progress Note : Time: 03:56 Progress Note Patient remains free of chest pain. GI cocktail improve the epigastric tenderness. ECG Initial ECG Impression Date: Jan 28, 2017 Initial ECG Impression Time: 01:29 Initial ECG Rate: 79 Initial ECG Rhythm: Normal Sinus Initial ECG Intervals: Normal Initial ECG Impression: Normal Comment Normal sinus rhythm with no ST elevation or depression. No abnormal intervals or axis deviation. Diagnostic Imaging Diagonstic Imaging: Xray Plain Films/CT/US/NM/MRI: chest Comments Chest x-ray viewed by me. Report pending. No acute abnormalities appreciated. Departure Impression Impression: Primary Impression: Atypical chest pain Additional Impressions: Epigastric abdominal tenderness Qualified Codes: R10.816 - Epigastric abdominal tenderness Anxiety Disposition: 01 HOME, SELF-CARE Condition: Improved Departure-Patient Inst. Decision time for Depature: 03:50 Referrals: ROMY PULIDO MD (PCP/Family) Primary Care Physician Patient Instructions: Acid Reflux (Gastroesophageal Reflux Disease), Adult (DC) , Chest Pain That Is Not Caused by the Heart (DC) Add. Discharge Instructions: Follow-up with Dr. Anthony and your primary care provider as soon as possible. In the meantime, start omeprazole. Avoid the following that may be irritating to your stomach and esophagus: Large meals, eating close to bedtime, caffeine, carbonation, chocolate, citrus fruits and juices, tomato products, tobacco, alcohol, mint, NSAID medications such as ibuprofen or naproxen, spicy foods, or anything else you know irritates your stomach. Return to the emergency room if symptoms worsen. Scripts Omeprazole (Omeprazole) 20 Mg Tablet. 20 MG PO DAILY, #30 TAB Prov: SHAILESH ORTIZ MD 01/28/17 SHAILESH ORTIZ MD Jan 28, 2017 02:14
[2017-01-28 02:15] LABS: ALANINE AMINOTRANSFERASE 42 U/L (0-55); ALBUMIN 3.9 G/DL (3.2-4.5); ANION GAP 10 MMOL/L (5-14); ASPARTATE AMINO TRANSFERASE 22 U/L (5-34); BILIRUBIN,TOTAL 0.3 MG/DL (0.1-1.0); BLOOD UREA NITROGEN 13 MG/DL (7-18); BUN/CREATININE RATIO 18; CALCIUM 9.5 MG/DL (8.5-10.1); CARBON DIOXIDE 25 MMOL/L (21-32); CHLORIDE 104 MMOL/L (98-107); CREATININE SERUM 0.74 MG/DL (0.60-1.30); GFR ESTIMATED > 60; GLUCOSE 140 MG/DL (70-105); POTASSIUM 3.8 MMOL/L (3.6-5.0); SODIUM 139 MMOL/L (135-145); TOTAL PROTEIN 6.6 G/DL (6.4-8.2)
[2017-01-28 02:22] LABS: MYOGLOBIN SERUM 23.7 NG/ML (10.0-92.0)
[2017-01-28] MEDS ORDERED: ANTACID SUSP 30 ML UDC (MYLANTA) PO ONE (03:30)
[2017-01-28] MEDS ORDERED: LIDOCAINE 2% VISCOUS 15 ML UDC PO ONE (03:30)
[2017-01-28] MEDS ORDERED: ALPRAZolam 0.5 MG (XANAX) TAB PO ONE (03:45)
[2017-01-28] MEDS ORDERED: OMEP20TA7 PO (04:08)
[2017-01-28 04:14] VITALS: BP 132/70
--- NOTE | 2017-01-28 07:39 | Diagnostic Imaging Report ---
INDICATION: Chest pain. FINDINGS: Upright portable chest shows normal heart size and vascularity. The lungs are clear. There is no effusion or pneumothorax. There is scoliosis. There is no change from 01/25/2017. IMPRESSION: Stable chest. Dictated by: Dictated on workstation # [id number]
--- OUTSIDE RECORDS SUMMARY | 2017-02-13 12:21 | XMS REPORT | Continuity of Care Document ---
Author Author [facility] Address Unknown Phone Unavailable Allergies Active Description Code Type Severity Reaction Onset Reported/Identified Relationship to Patient Clinical Status Yes Sulfa (Sulfonamide Antibiotics) [id number] Drug Allergy Unknown N/A 04/18/2006 Yes sulfa [...] Yes tramadol Drug Allergy 12/20/2010 Yes hydrocodone [id number] Drug Allergy Unknown SICK TO STOMACH 02/02/2014 [...] 296.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 EPISODIC MOOD DISORDER 01/07/2009 YOEL RGEEN DO F 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 01/07/2009 [...] CHILEL MD 466.0 ACUTE BRONCHITIS 03/18/2009 YOEL GRENE DO F 466.0 ACUTE BRONCHITIS 03/18/2009 466.0 [...] Heart Disease 08/05/2009 YOEL GREEN DO V72.31 Ruby Software Developer Exam, Routine 08/05/2009 YOEL GREEN DO V72.31 Ruby Software Developer Exam, Routine 08/05/2009 DENZEL CHILEL MD V72.31 Ruby Software Developer Exam, Routine 08/05/2009 YOEL GREEN DO V72.31 Ruby Software Developer Exam, Routine 08/05/2009 DENZEL CHILEL MD V72.31 Ruby Software Developer Exam, Routine 08/05/2009 YOEL GREEN DO V72.31 Ruby Software Developer Exam, Routine 08/05/2009 V72.31 Ruby Software Developer Exam, Routine 08/05/2009 V72.31 Ruby Software Developer Exam, Routine 08/05/2009 V72.31 Ruby Software Developer Exam, Routine 08/05/2009 V72.31 Ruby Software Developer Exam, Routine 08/05/2009 YOEL GREEN DO V72.31 Ruby Software Developer Exam, Routine 08/05/2009 GETACHEW ADAMS, DENZEL V72.31 Ruby Software Developer Exam, Routine 08/05/2009 GETACHEW ADAMS, DENZEL V72.31 Ruby Software Developer Exam, Routine 08/05/2009 GETACHEW ADAMS, DENZEL V72.31 Ruby Software Developer Exam, Routine 08/05/2009 GETACHEW ADAMS, DENZEL V72.31 Ruby Software Developer Exam, Routine 08/05/2009 GETACHEW ADAMS, DENZEL V72.31 Ruby Software Developer Exam, Routine 08/05/2009 GETACHEW ADAMS, DENZEL V72.31 Ruby Software Developer Exam, Routine 08/05/2009 GETACHEW ADAMS, DENZEL V72.31 Ruby Software Developer Exam, Routine 12/02/2009 YOEL GREEN DO 305.1 [...] SYMPTOMATIC MENOPAUSAL OR FEMALE CLIMACTERIC STATES 03/21/2013 NOMRA GARCIA YOEL Caesar 790.29 OTHER ABNORMAL GLUCOSE [...] MD 790.29 OTHER ABNORMAL GLUCOSE 03/21/2013 DENZEL CHILLE MD.2 SYMPTOMATIC MENOPAUSAL OR FEMALE CLIMACTERIC STATES [...] FACP CCDS Ot 496 05/08/2015 MUNIRA ADAMS [facility], ALI FACP CCDS Ot 785.1 05/08/2015 MUNIRA ADAMS [facility], ALI FACP CCDS Ot 786.09 05/08/2015 KRISTOPHER MILLER TURN OPERATOR Ot 780.52 INSOMNIA, UNSPECIFIED 05/08/2015 KRISTOPHER MILLER TURN OPERATOR Ot V68.1 ISSUE REPEAT PRESCRIPT 02/25/2016 ROMY [...] RESPIRATORY ABNORM NEC 06/07/2016 DAMI VILLARREAL R SUPERVISOR ELECTRIC MOTOR TESTING Ot Z12.31 ENCNTR SCREEN MAMMOGRAM FOR MALIGNANT NE 06/08/2016 DAMI VILLARREAL R SUPERVISOR ELECTRIC MOTOR TESTING Ot Z12.31 ENCNTR SCREEN MAMMOGRAM FOR MALIGNANT NE 06/15/2016 DAMI VILLARREAL R SUPERVISOR ELECTRIC MOTOR TESTING Ot Z12.31 ENCNTR SCREEN MAMMOGRAM FOR MALIGNANT NE 06/16/2016 DAMI VILLARREAL R SUPERVISOR ELECTRIC MOTOR TESTING Ot Z12.31 ENCNTR SCREEN MAMMOGRAM FOR MALIGNANT NE 06/16/2016 DAMI VILLARREAL R SUPERVISOR ELECTRIC MOTOR TESTING Ot Z12.31 ENCNTR SCREEN MAMMOGRAM FOR MALIGNANT NE 06/16/2016 ROMY PULIDO MD N Ot R00.2 PALPITATIONS 06/30/2016 DAMI VILLARREAL SUPERVISOR ELECTRIC MOTOR TESTING Ot Z12.31 ENCNTR SCREEN MAMMOGRAM FOR MALIGNANT NE 07/04/2016 DAMI VILLARREAL R SUPERVISOR ELECTRIC MOTOR TESTING Ot Z12.31 ENCNTR SCREEN MAMMOGRAM FOR MALIGNANT [...] CHR AIRWAY OBSTRUCT NEC 08/12/2016 MUNIRA ADAMS [facility], ALI FACP CCDS Ot 785.1 PALPITATIONS 08/12/2016 MUNIRA ADAMS [facility], ALI FACP CCDS Ot 786.09 RESPIRATORY ABNORM NEC 08/12/2016 ROMY PULIDO MD Ot R00.2 PALPITATIONS 08/12/2016 DAMI VILLARREAL SUPERVISOR ELECTRIC MOTOR TESTING Ot Z12.31 ENCNTR SCREEN MAMMOGRAM FOR MALIGNANT NE 08/12/2016 MARIAULISA PATEL MD Ot F17.210 NICOTINE DEPENDENCE, CIGARETTES, UNCOMPL 08/12/2016 MARIALUISA PATEL MD Ot I47.9 PAROXYSMAL TACHYCARDIA, UNSPECIFIED 08/12/2016 MARIALUISA PATEL MD Ot R00.0 TACHYCARDIA, UNSPECIFIED 08/12/2016 MUNIRA ADAMS [facility], ALI FACP CCDS Ot 305.1 TOBACCO USE DISORDER 08/12/2016 MUNIRA ADAMS [facility], ALI FACP CCDS Ot 496 CHR AIRWAY OBSTRUCT NEC 08/12/2016 MUNIRA ADAMS [facility], ALI FACP CCDS Ot 785.1 PALPITATIONS 08/12/2016 MUNIRA ADAMS [facility], ALI FACP CCDS Ot 786.09 RESPIRATORY ABNORM NEC 08/12/2016 MUNIRA ADAMS [facility], ALI FACP CCDS Ot 305.1 TOBACCO USE DISORDER 08/12/2016 MUNIRA ADAMS [facility], ALI FACP CCDS Ot 496 CHR AIRWAY OBSTRUCT NEC 08/12/2016 MUNIRA ADAMS [facility], ALI FACP CCDS Ot 785.1 PALPITATIONS 08/12/2016 MUNIRA ADAMS [facility], ALI FACP CCDS Ot 786.09 RESPIRATORY ABNORM NEC 08/12/2016 ROMY PULIDO MD N Ot R00.2 PALPITATIONS 08/12/2016 DAMI VILLARREAL SUPERVISOR ELECTRIC MOTOR TESTING Ot Z12.31 ENCNTR SCREEN MAMMOGRAM FOR MALIGNANT [...] PULIDO MD Ot R00.2 PALPITATIONS 10/11/2016 MUNIRA ADMAS [facility], ALI FACP CCDS Ot 305.1 TOBACCO [...] 786.09 RESPIRATORY ABNORM NEC 10/11/2016 DAMI VILLARREAL SUPERVISOR ELECTRIC MOTOR TESTING Ot Z12.31 ENCNTR SCREEN MAMMOGRAM FOR MALIGNANT NE 10/11/2016 ROMY PULIDO MD Ot R00.2 PALPITATIONS 10/11/2016 KADIE LAUGHLIN DO Ot F17.210 NICOTINE DEPENDENCE, CIGARETTES, UNCOMPL 10/11/2016 KADIE LAUGHLIN DO Ot F41.9 ANXIETY DISORDER, UNSPECIFIED 10/11/2016 KADIE LAUGHLIN DO Ot J44.9 CHRONIC OBSTRUCTIVE PULMONARY DISEASE, U 10/11/2016 KADIE LAUGHLIN DO Ot R00.2 PALPITATIONS 10/11/2016 KADIE LAUGHLIN DO Ot Z79.899 OTHER LONGTERM (CURRENT) DRUG THERAPY 10/29/2016 KRISTOPHER MILLER TURN OPERATOR Ot F17.210 NICOTINE DEPENDENCE, CIGARETTES, UNCOMPL 10/29/2016 KRISTOPHER MILLER TURN OPERATOR Ot F41.9 ANXIETY DISORDER, UNSPECIFIED 10/29/2016 KRISTOPHER MILLER APRN Ot R00.2 PALPITATIONS 10/29/2016 KRISTOPHER MILLER APRN Ot R06.02 SHORTNESS OF BREATH 10/29/2016 KRISTOPHER MILLER TURN OPERATOR Ot Z79.899 OTHER FINISHING ROOM OPERATOR (CURRENT) DRUG THERAPY 10/29/2016 MUNIRA ADAMS [facility], [...] 786.09 RESPIRATORY ABNORM NEC 10/29/2016 DAMI VILLARREAL SUPERVISOR ELECTRIC MOTOR TESTING Ot Z12.31 ENCNTR SCREEN MAMMOGRAM FOR MALIGNANT NE 10/29/2016 ROMY PULIDO MD Ot R00.2 PALPITATIONS 10/31/2016 KRISTOPHER MILLER TURN OPERATOR Ot F17.210 NICOTINE DEPENDENCE, CIGARETTES, UNCOMPL 10/31/2016 KRISTOPHER MILLER TURN OPERATOR Ot F41.9 ANXIETY DISORDER, UNSPECIFIED 10/31/2016 MILLERKRISTOPHER BAILON Enrico TURN OPERATOR Ot R00.2 PALPITATIONS 10/31/2016 MILLER, KRISTOPHER Weston TURN OPERATOR Ot R06.02 SHORTNESS OF BREATH 10/31/2016 KRISTOPHER MILLER Enrico TURN OPERATOR Ot Z79.899 OTHER LONGTERM (CURRENT) DRUG THERAPY 11/01/2016 MILLER, KRISTOPHER Weston TURN OPERATOR Ot F17.210 NICOTINE DEPENDENCE, CIGARETTES, UNCOMPL 11/01/2016 MILLER, KRISTOPHER Weston TURN OPERATOR Ot F41.9 ANXIETY DISORDER, UNSPECIFIED 11/01/2016 KRISTOPHER MILLER Enrico TURN OPERATOR Ot R00.2 PALPITATIONS 11/01/2016 MILLERKRISTOPHER BAILON Enrico TURN OPERATOR Ot R06.02 SHORTNESS OF BREATH 11/01/2016 MILLERKRISTOPHER BAILON Enrico TURN OPERATOR Ot Z79.899 OTHER FINISHING ROOM OPERATOR (CURRENT) DRUG THERAPY 12/18/2016 MUNIRA ADAMS FACC, [...] 786.09 RESPIRATORY ABNORM NEC 12/18/2016 DAMI VILLARREAL SUPERVISOR ELECTRIC MOTOR TESTING Ot Z12.31 ENCNTR SCREEN MAMMOGRAM FOR MALIGNANT NE 12/18/2016 ASHOK ADAMS, ROMY Huitron Ot R00.2 PALPITATIONS 12/18/2016 GABRIELA PRYOR DO Ot F17.210 NICOTINE DEPENDENCE, CIGARETTES, UNCOMPL 12/18/2016 GABRIELA PRYOR DO Ot J44.9 CHRONIC OBSTRUCTIVE PULMONARY DISEASE, U 12/18/2016 GABRIELA PRYOR DO Ot J45.909 UNSPECIFIED ASTHMA, UNCOMPLICATED 12/18/2016 GABRIELA PRYOR DO Ot R05 COUGH 12/19/2016 ROYA GABRIELA GARCIA Ot F17.210 NICOTINE DEPENDENCE, CIGARETTES, UNCOMPL 12/19/2016 ROYAGABRIELA CROCKETT DO Ot J45.909 UNSPECIFIED ASTHMA, UNCOMPLICATED 12/19/2016 ROYA GABRIELA GARCIA Ot R05 COUGH 12/20/2016 ROYA GABRIELA GARCIA Ot F17.210 NICOTINE DEPENDENCE, CIGARETTES, UNCOMPL 12/20/2016 ROYA GABRIELA GARCIA Ot J45.909 UNSPECIFIED ASTHMA, UNCOMPLICATED 12/20/2016 ROYA GABRIELA GARCIA Ot R05 COUGH 12/22/2016 TRUMAN DO, KADIE [...] K Ot R07.9 CHEST PAIN, UNSPECIFIED 12/24/2016 ROYA GARCIA GABRIELA Brenda Ot F17.210 NICOTINE DEPENDENCE, CIGARETTES, UNCOMPL 12/24/2016 ROYA GABRIELA GARCIA Ot J45.909 UNSPECIFIED ASTHMA, UNCOMPLICATED 12/24/2016 ROYA GABRIELA GARCIA Ot R05 COUGH 12/25/2016 TRUMAN DO, KADIE [...] ALI FACP CCDS Ot 785.1 PALPITATIONS 01/15/2017 MUNIRA ADAMS [facility], ALI FACP CCDS Ot 786.09 RESPIRATORY ABNORM NEC 01/15/2017 MUNIRA ADAMS [facility], ALI FACP CCDS Ot 305.1 TOBACCO USE DISORDER 01/15/2017 MUNIRA ADAMS [facility], ALI FACP CCDS Ot 496 CHR AIRWAY OBSTRUCT NEC 01/15/2017 MUNIRA ADAMS FAC, ALI FACP CCDS Ot 785.1 PALPITATIONS 01/15/2017 MUNIRA ADAMS FAC, ALI FACP CCDS Ot 786.09 RESPIRATORY ABNORM NEC 01/15/2017 DAMI VILLARREAL SUPERVISOR ELECTRIC MOTOR TESTING Ot Z12.31 ENCNTR SCREEN MAMMOGRAM FOR MALIGNANT NE 01/15/2017 ASHOK ADAMS, ROMY Huitron Ot R00.2 PALPITATIONS 01/15/2017 MERON WEATHERS MD Ot E11.65 TYPE 2 DIABETES MELLITUS WITH HYPERGLYCE 01/15/2017 MERON WEATHERS MD A Ot I10 ESSENTIAL (PRIMARY) HYPERTENSION 01/15/2017 MARYCHUY WEATHERS MDNT A Ot J44.9 CHRONIC OBSTRUCTIVE PULMONARY DISEASE, U 01/15/2017 MERON WEATHERS MD A Ot R42 DIZZINESS AND GIDDINESS 01/15/2017 MARYCHUY WEATHERS MDNT A Ot Z79.84 FINISHING ROOM OPERATOR (CURRENT) USE OF ORAL HYPOGLYC 01/15/2017 MARYCHUY WEATHERS MDNT A Ot Z79.899 OTHER LONGTERM (CURRENT) DRUG THERAPY 01/16/2017 MERON WEATHERS MD A Ot E11.65 TYPE 2 DIABETES MELLITUS WITH HYPERGLYCE 01/16/2017 MERON WEATHERS MD A Ot I10 ESSENTIAL (PRIMARY) HYPERTENSION 01/16/2017 MERON WEATHERS MD A Ot J44.9 CHRONIC OBSTRUCTIVE PULMONARY DISEASE, U 01/16/2017 MERON WEATHERS MD A Ot R42 DIZZINESS AND GIDDINESS 01/16/2017 MERON WEATHERS MD A Ot Z79.84 LONGTERM (CURRENT) USE OF ORAL HYPOGLYC 01/16/2017 MERON WEATHERS MD A Ot Z79.899 OTHER FINISHING ROOM OPERATOR (CURRENT) DRUG THERAPY 01/25/2017 KADIE LAUGHLIN DO Ot F17.210 NICOTINE DEPENDENCE, CIGARETTES, UNCOMPL 01/25/2017 KADIE LAUGHLIN DO Ot F41.9 ANXIETY DISORDER, UNSPECIFIED 01/25/2017 TRUMAN DO, KADIE K Ot I10 ESSENTIAL (PRIMARY) HYPERTENSION 01/25/2017 TRUMAN DO KADIE K Ot J44.9 CHRONIC OBSTRUCTIVE PULMONARY DISEASE, U 01/25/2017 TRUMAN DO KADIE K Ot R07.89 OTHER CHEST PAIN 01/29/2017 SHAILESH ORTIZ MD Ot F17.210 NICOTINE DEPENDENCE, CIGARETTES, UNCOMPL 01/29/2017 SHAILESH ORTIZ MD Ot F41.9 ANXIETY DISORDER, UNSPECIFIED 01/29/2017 SHAILESH ORTIZ MD Ot I10 ESSENTIAL (PRIMARY) HYPERTENSION 01/29/2017 SHAILESH ORTIZ MD Ot J44.9 CHRONIC OBSTRUCTIVE PULMONARY DISEASE , U 01/29/2017 SHAILESH ORTIZ MD Ot R07.89 OTHER CHEST PAIN 01/29/2017 SHAILESH ORTIZ MD Ot R07.9 CHEST PAIN, UNSPECIFIED 01/29/2017 SHAILESH ORTIZ MD Ot R10.816 EPIGASTRIC ABDOMINAL TENDERNESS 01/30/2017 GABRIELA PRYOR DO Ot F17.210 NICOTINE DEPENDENCE, CIGARETTES, UNCOMPL 01/30/2017 GABRIELA PRYOR DO Ot J44.9 CHRONIC OBSTRUCTIVE PULMONARY DISEASE, U 01/30/2017 GABRIELA PRYOR DO Ot J45.909 UNSPECIFIED ASTHMA, UNCOMPLICATED 01/30/2017 GABRIELA PRYOR DO Ot R05 COUGH 02/03/2017 SHAILESH ORTIZ MD Ot F17.210 NICOTINE DEPENDENCE, CIGARETTES, UNCOMPL 02/03/2017 SHAILESH ORTIZ MD Ot F41.9 ANXIETY DISORDER, UNSPECIFIED 02/03/2017 SHAILESH ORTIZ MD Ot I10 ESSENTIAL (PRIMARY) HYPERTENSION 02/03/2017 SHAILESH ORTIZ MD Ot J44.9 CHRONIC OBSTRUCTIVE PULMONARY DISEASE , U 02/03/2017 SHAILESH ORTIZ MD Ot R07.89 OTHER CHEST PAIN 02/03/2017 SHAILESH ORTIZ MD Ot R07.9 CHEST PAIN, UNSPECIFIED 02/03/2017 SHAILESH ORTIZ MD Ot R10.816 EPIGASTRIC ABDOMINAL TENDERNESS 02/05/2017 SHAILESH ORTIZ MD T Ot E11.9 TYPE 2 DIABETES MELLITUS WITHOUT COMPLIC 02/05/2017 SHAILESH ORTIZ MD, Ot F17.210 NICOTINE DEPENDENCE, CIGARETTES, UNCOMPL 02/05/2017 SHAILESH ORTIZ MD, Ot F41.9 ANXIETY DISORDER, UNSPECIFIED 02/05/2017 SHAILESH ORTIZ MD, Ot I10 ESSENTIAL (PRIMARY) HYPERTENSION 02/05/2017 SHAILESH ORTIZ MD, Ot J44.9 CHRONIC OBSTRUCTIVE PULMONARY DISEASE , U 02/05/2017 SHAILESH ORTIZ MD, Ot R51 HEADACHE 02/05/2017 SHAILESH ORTIZ MD, Ot Z79.84 FINISHING ROOM OPERATOR (CURRENT) USE OF ORAL HYPOGLYC 02/05/2017 SHAILESH ORTIZ MD, Ot Z79.899 OTHER LONGTERM (CURRENT) DRUG THERAPY Procedures Code Description [place] [address] URINE DRUG SCREEN (IN-HOUSE) 10/22/2012 50731 ROUTINE VENIPUNCTURE 02/24/2013 85736 GLUCOSE 2012 15450 LIPID PANEL 02/24 65628 ROUTINE VENIPUNCTURE 03/21/2013 26237 A1C (IN-HOUSE) 17271 URINE DRUG SCREEN (IN-HOUSE) 03/21/2013 05113 FSH 03/21/2013 77543 LH 03/21/2013 74564 URINE DRUG SCREEN (IN-HOUSE) 09/01/2013 Cardiolog Roni Anthony 11/07/2013 68837 ROUTINE VENIPUNCTURE 11/13/2013 92446 EKG, TRACING (IN-HOUSE) 11/13/2013 91027 URINE DRUG SCREEN (IN-HOUSE) 11/13/2013 92131 CBC 11/13/2013 50098 CMP 11/13/2013 26754 LIPID PANEL 11/13 07882 MAGNESIUM 2013 [id number] GFR CALC (RESULT ONLY) 11/13/2013 96673 TSH 11/13/2013 15074 URINE DRUG SCREEN (IN-HOUSE) 12/25/2013 668831 [employer] DRUG SCREEN 03/09/2014 Results Test Result [...] 01/25/17 02:13 BNP level < pg/mL <100.0 Complete blood count (CBC) with automated white blood cell (WBC) differential - 01/28/17 01:45 Blood leukocytes automated count (number/volume) 8.2 10*3/ uL 4.3-11.0 Blood erythrocytes automated count (number/volume) 4.73 10*6 /uL 4.35-5.85 Venous blood hemoglobin measurement (mass/volume) 14.9 g/dL 11.5-16.0 Blood hematocrit (volume fraction) 42 % 35-52 Automated erythrocyte mean corpuscular volume 90 [foz_us] 80-99 Automated erythrocyte mean corpuscular hemoglobin (mass per erythrocyte) 32 pg 25-34 Automated erythrocyte mean corpuscular hemoglobin concentration measurement ( mass/volume) 35 g/dL 32-36 Automated erythrocyte distribution width ratio 12.5 % 10.0-14.5 Automated blood platelet count (count/volume) 229 10*3/uL 130-400 Automated blood platelet mean volume measurement 9.2 [foz_us ] 7.4-10.4 Automated blood neutrophils/100 leukocytes 58 % 42-75 Automated blood lymphocytes/100 leukocytes 30 % 12-44 Blood monocytes/100 leukocytes 6 % 0-12 Automated blood eosinophils/100 leukocytes 5 % 0-10 Automated blood basophils/100 leukocytes 0 % 0-10 Blood neutrophils automated count (number/volume) 4.7 10*3 1.8-7.8 Blood lymphocytes automated count (number/volume) 2.5 10*3 1.0-4.0 Blood monocytes automated count (number/volume) 0.5 10*3 0.0-1.0 Automated eosinophil count 0.4 10*3/uL 0.0-0.3 Automated blood basophil count (count/volume) 0.0 10*3/uL 0.0-0.1 PT panel in platelet poor plasma by coagulation assay - 01/28/17 01:45 Prothrombin time (PT) in platelet poor plasma by coagulation assay 12.4 s 12.2-14.7 INR in platelet poor plasma or blood by coagulation assay 1.0 0.8-1.4 Activated partial thromboplastin time (aPTT) in platelet poor plasma bycoagulation assay - 01/28/17 01:45 Activated partial thromboplastin time (aPTT) in platelet poor plasma bycoagulation assay 28 s 24-35 Comprehensive metabolic panel - 01/28/17 01:45 Serum or plasma sodium measurement (moles/volume) 139 mmol/ L 135-145 Serum or plasma potassium measurement (moles/volume) 3.8 mmol/L 3.6-5.0 Serum or plasma chloride measurement (moles/volume) 104 mmol /L 98-107 Carbon dioxide 25 mmol/L 21-32 Serum or plasma anion gap determination (moles/volume) 10 mmol/L 5-14 Serum or plasma urea nitrogen measurement (mass/volume) 13 mg/dL 7-18 Serum or plasma creatinine measurement (mass/volume) 0.74 mg /dL 0.60-1.30 Serum or plasma urea nitrogen/creatinine mass ratio 18 NRG Serum or plasma creatinine measurement with calculation of estimated glomerular filtration rate > NRG Serum or plasma glucose measurement (mass/volume) 140 mg/dL 70-105 Serum or plasma calcium measurement (mass/volume) 9.5 mg/dL 8.5-10.1 Serum or plasma total bilirubin measurement (mass/volume) 0.3 mg/dL 0.1-1.0 Serum or plasma alkaline phosphatase measurement (enzymatic activity/volume) 114 U/L 40-136 Serum or plasma aspartate aminotransferase measurement (enzymatic activity/ volume) 22 U/L 5-34 Serum or plasma alanine aminotransferase measurement (enzymatic activity/volume ) 42 U/L 0-55 Serum or plasma protein measurement (mass/volume) 6.6 g/dL 6.4-8.2 Serum or plasma albumin measurement (mass/volume) 3.9 g/dL 3.2-4.5 Magnesium - 01/28/17 01:45 Magnesium 2.0 mg/dL 1.8-2.4 Serum or plasma troponin i.cardiac measurement (mass/volume) - 01/28/17 01:45 Serum or plasma troponin i.cardiac measurement (mass/volume) < ng/mL <0.30 Myoglobin, serum - 01/28/17 01:45 Myoglobin, serum 23.7 ng/mL 10.0-92.0 Lipase - 01/28/17 01:45 Lipase 38 U/L 8-78 Encounters ACCT No. Visit Date/Time Discharge Status Pt. Type Provider Facility Loc./Unit Complaint [id number] 03/09/2014 15:25:00 03/09/2014 23: 59:59 CLS Outpatient DENZEL CHILEL MD [id number] 12/25/2013 15:27:00 12/25/2013 23: 59:59 CLS Outpatient DENZEL CHILEL MD [id number] 12/25/2013 15:27:00 12/25/2013 23: 59:59 CLS Outpatient DENZEL CHILEL MD [id number] 11/13/2013 07:59:00 11/13/2013 23: 59:59 CLS Outpatient DENZEL CHILEL MD [id number] 11/04/2013 16:08:00 11/04/2013 23: 59:59 CLS Outpatient DENZEL CHILEL MD [id number] 09/01/2013 14:25:00 09/01/2013 23: 59:59 CLS Outpatient DENZEL CHILEL MD [id number] 09/01/2013 14:25:00 09/01/2013 23: 59:59 CLS Outpatient DENZEL CHILEL MD [id number] 05/15/2013 11:35:00 05/15/2013 23: 59:59 CLS Outpatient YOEL GREEN DO [id number] 01/21/2013 10:26:00 01/21/2013 23: 59:59 CLS Outpatient YOEL GREEN DO [id number] 01/02/2013 16:04:00 01/02/2013 23: 59:59 CLS Outpatient DENZEL CHILEL MD [id number] 11/21/2012 10:28:00 11/21/2012 23: 59:59 CLS Outpatient YOEL GREEN DO [id number] 10/22/2012 14:03:00 10/22/2012 23: 59:59 CLS Outpatient DENZEL CHILEL MD [id number] 08/21/2012 11:41:00 08/21/2012 23: 59:59 [place] [id number] 08/21/2012 11:41:00 08/21/2012 23: 59:59 CLS Outpatient YOEL GREEN DO [id number] 04/23/2013 13:58:00 Document Registration [id number] 03/21/2013 15:05:00 Document Registration [id number] 02/24/2013 12:29:00 Document Registration [id number] 02/24/2013 12:29:00 Document Registration
--- OUTSIDE RECORDS SUMMARY | 2017-02-13 12:25 | XMS REPORT | Continuity of Care Document ---
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 02/08/2009 [...] Of Ischemic Heart Disease 04/22/2009 GETACHEW ADAMS, DEZNEL V15.82 Personal History Of Tobacco Use 04/22/2009 GETACHEW ADAMS, DENZEL V17.3 Family History Of Ischemic Heart Disease 08/05/2009 YOEL GREEN DO V72.31 Shelter Monitor Exam, Routine 08/05/2009 YOEL GREEN DO V72.31 Shelter Monitor Exam, Routine 08/05/2009 DENZEL CHILEL MD V72.31 Shelter Monitor Exam, Routine 08/05/2009 YOEL GREEN DO V72.31 Shelter Monitor Exam, Routine 08/05/2009 DENZEL CHILEL MD V72.31 Shelter Monitor Exam, Routine 08/05/2009 YOEL GREEN DO V72.31 Shelter Monitor Exam, Routine 08/05/2009 V72.31 Shelter Monitor Exam, Routine 08/05/2009 V72.31 Shelter Monitor Exam, Routine 08/05/2009 V72.31 Shelter Monitor Exam, Routine 08/05/2009 V72.31 Shelter Monitor Exam, Routine 08/05/2009 YOEL GREEN DO V72.31 Shelter Monitor Exam, Routine 08/05/2009 GETACHEW ADAMS, DENZEL V72.31 Shelter Monitor Exam, Routine 08/05/2009 GETACHEW ADAMS, DENZEL V72.31 Shelter Monitor Exam, Routine 08/05/2009 GETACHEW ADAMS, DENZEL V72.31 Shelter Monitor Exam, Routine 08/05/2009 GETACHEW ADAMS, DENZEL V72.31 Shelter Monitor Exam, Routine 08/05/2009 GETACHEW ADAMS, DENZEL V72.31 Shelter Monitor Exam, Routine 08/05/2009 GETACHEW ADAMS, DENZEL V72.31 Shelter Monitor Exam, Routine 08/05/2009 GETACHEW ADAMS, DENZEL V72.31 Shelter Monitor Exam, Routine 12/02/2009 YOEL GREEN DO 305.1 Nicotine Dependence 12/02/2009 YOEL GREEN DO 780.4 Dizziness And Giddiness 12/02/2009 YOEL GREEN DO 305.1 Nicotine Dependence 12/02/2009 YOEL GREEN DO 780.4 Dizziness And Giddiness 12/02/2009 DENZEL CHILEL MD 305.1 Nicotine Dependence 12/02/2009 DENZEL CHILEL MD 780.4 Dizziness And Giddiness 12/02/2009 OYEL GREEN DO 305.1 Nicotine Dependence 12/02/2009 YOEL [...] Joint, Pelvic Region And Thigh 12/30/2009 GETACHEW ADASM, DENZEL 719.45 Pain In Joint, Pelvic Region And Thigh 12/30/2009 GETACHEW ADAMS, DENZEL 719.45 Pain In Joint, Pelvic Region And Thigh 12/30/2009 GETACHEW ADAMS, DENZEL 719.45 Pain In Joint, Pelvic Region And Thigh 12/30/2009 GETACHEW ADAMS, DENZEL Thmoas9.45 Pain In Joint, Pelvic Region And Thigh [...] 616.10 VAGINITIS AND VULVOVAGINITIS UNSPECIFIED 03/13/2011 DENZEL CHIELL MD 599.0 URINARY TRACT INFECTION SITE NOT [...] ALI FACP CCDS Ot 785.1 03/26/2015 MUNIRA ADMAS FACC, ALI FACP CCDS Ot 786.09 05/08/2015 MUNIRA ADAMS FACC, ALI FACP CCDS Ot 305.1 05/08/2015 MUNIRA ADAMS FACC, ALI FACP CCDS Ot 496 05/08/2015 MUNIRA ADAMS FACC, ALI FACP CCDS Ot 785.1 05/08/2015 MUNIRA ADAMS FACC, ALI FACP CCDS Ot 786.09 05/08/2015 MUNIRA ADAMS FACC, ALI FACP CCDS Ot 305.1 05/08/2015 MUNIRA ADAMS FAC, ALI FACP CCDS Ot 496 05/08/2015 MUNIRA ADAMS [facility], ALI FACP CCDS Ot 785.1 05/08/2015 MUNIRA ADAMS [facility], ALI FACP CCDS Ot 786.09 05/08/2015 KRISTOPHER MILLER ASBESTOS BRAKE LINING FINISHER HELPER Ot 780.52 INSOMNIA, UNSPECIFIED 05/08/2015 KRISTOPHER MILLER ASBESTOS BRAKE LINING FINISHER HELPER Ot V68.1 ISSUE REPEAT PRESCRIPT 02/25/2016 ROMY [...] RESPIRATORY ABNORM NEC 06/07/2016 DAMI VILLARREAL R TRUCK LEASING MANAGER Ot Z12.31 ENCNTR SCREEN MAMMOGRAM FOR MALIGNANT NE 06/08/2016 DAMI VILLARREAL R TRUCK LEASING MANAGER Ot Z12.31 ENCNTR SCREEN MAMMOGRAM FOR MALIGNANT NE 06/15/2016 DAMI VILLARREAL R TRUCK LEASING MANAGER Ot Z12.31 ENCNTR SCREEN MAMMOGRAM FOR MALIGNANT NE 06/16/2016 DAMI VILLARREAL R TRUCK LEASING MANAGER Ot Z12.31 ENCNTR SCREEN MAMMOGRAM FOR MALIGNANT NE 06/16/2016 DAMI VILLARREAL R TRUCK LEASING MANAGER Ot Z12.31 ENCNTR SCREEN MAMMOGRAM FOR MALIGNANT NE 06/16/2016 ROMY PULIDO MD N Ot R00.2 PALPITATIONS 06/30/2016 DAMI VILLARREAL TRUCK LEASING MANAGER Ot Z12.31 ENCNTR SCREEN MAMMOGRAM FOR MALIGNANT NE 07/04/2016 DAMI VILLARREAL R TRUCK LEASING MANAGER Ot Z12.31 ENCNTR SCREEN MAMMOGRAM FOR MALIGNANT [...] CHR AIRWAY OBSTRUCT NEC 08/12/2016 MUNIRA ADAMS [facility], ALI FACP CCDS Ot 785.1 PALPITATIONS 08/12/2016 MUNIRA ADAMS [facility], ALI FACP CCDS Ot 786.09 RESPIRATORY ABNORM NEC 08/12/2016 ROMY PULIDO MD Ot R00.2 PALPITATIONS 08/12/2016 DAMI VILLARREAL TRUCK LEASING MANAGER Ot Z12.31 ENCNTR SCREEN MAMMOGRAM FOR MALIGNANT NE 08/12/2016 MARIALUISA PATEL MD Ot F17.210 NICOTINE DEPENDENCE, CIGARETTES, UNCOMPL 08/12/2016 MARIALUISA PATEL MD Ot I47.9 PAROXYSMAL TACHYCARDIA, UNSPECIFIED 08/12/2016 MARIALUISA PATEL MD Ot R00.0 TACHYCARDIA, UNSPECIFIED 08/12/2016 MUNIRA ADAMS [facility], ALI FACP CCDS Ot 305.1 TOBACCO USE DISORDER 08/12/2016 MUNIRA ADAMS [facility], ALI FACP CCDS Ot 496 CHR AIRWAY OBSTRUCT NEC 08/12/2016 MUNIRA ADAMS [facility], ALI FACP CCDS Ot 785.1 PALPITATIONS 08/12/2016 MUNIRA ADAMS [facility], ALI FACP CCDS Ot 786.09 RESPIRATORY ABNORM NEC 08/12/2016 MUNIRA ADAMS [facility], ALI FACP CCDS Ot 305.1 TOBACCO USE DISORDER 08/12/2016 MUNIRA ADAMS [facility], ALI FACP CCDS Ot 496 CHR AIRWAY OBSTRUCT NEC 08/12/2016 MUNIRA ADAMS [facility], ALI FACP CCDS Ot 785.1 PALPITATIONS 08/12/2016 MUNIRA ADAMS [facility], ALI FACP CCDS Ot 786.09 RESPIRATORY ABNORM NEC 08/12/2016 ROMY PULIDO MD N Ot R00.2 PALPITATIONS 08/12/2016 DAMI VILLARREAL TRUCK LEASING MANAGER Ot Z12.31 ENCNTR SCREEN MAMMOGRAM FOR MALIGNANT [...] 786.09 RESPIRATORY ABNORM NEC 10/11/2016 DAMI VILLARREAL TRUCK LEASING MANAGER Ot Z12.31 ENCNTR SCREEN MAMMOGRAM FOR MALIGNANT NE 10/11/2016 ROMY PULIDO MD Ot R00.2 PALPITATIONS 10/11/2016 KADIE LAUGHLIN DO Ot F17.210 NICOTINE DEPENDENCE, CIGARETTES, UNCOMPL 10/11/2016 KADIE LAUGHLIN DO Ot F41.9 ANXIETY DISORDER, UNSPECIFIED 10/11/2016 KADIE LAUGHLIN DO Ot J44.9 CHRONIC OBSTRUCTIVE PULMONARY DISEASE, U 10/11/2016 KADIE LAUGHLIN DO Ot R00.2 PALPITATIONS 10/11/2016 KADIE LAUGHLIN DO Ot Z79.899 OTHER [facility] (CURRENT) DRUG THERAPY 10/29/2016 KRISTOPHER MILLER ASBESTOS BRAKE LINING FINISHER HELPER Ot F17.210 NICOTINE DEPENDENCE, CIGARETTES, UNCOMPL 10/29/2016 KRISTOPHER MILLER ASBESTOS BRAKE LINING FINISHER HELPER Ot F41.9 ANXIETY DISORDER, UNSPECIFIED 10/29/2016 KRISTOPHER MILLER APRN Ot R00.2 PALPITATIONS 10/29/2016 KRISTOPHER MILLER APRN Ot R06.02 SHORTNESS OF BREATH 10/29/2016 KRISTOPHER MILLER ASBESTOS BRAKE LINING FINISHER HELPER Ot Z79.899 OTHER MULTIPLE SPINDLE SCREW MACHINE OPERATOR (CURRENT) DRUG THERAPY 10/29/2016 MUNIRA ADAMS [...] 786.09 RESPIRATORY ABNORM NEC 10/29/2016 DAMI VILLARREAL TRUCK LEASING MANAGER Ot Z12.31 ENCNTR SCREEN MAMMOGRAM FOR MALIGNANT NE 10/29/2016 ROMY PULIDO MD Ot R00.2 PALPITATIONS 10/31/2016 KRISTOPHER MILLER ASBESTOS BRAKE LINING FINISHER HELPER Ot F17.210 NICOTINE DEPENDENCE, CIGARETTES, UNCOMPL 10/31/2016 KRISTOPHER MILLER ASBESTOS BRAKE LINING FINISHER HELPER Ot F41.9 ANXIETY DISORDER, UNSPECIFIED 10/31/2016 MILLERKRISTOPHER BAILON Enrico ASBESTOS BRAKE LINING FINISHER HELPER Ot R00.2 PALPITATIONS 10/31/2016 MILLER, KRISTOPHER Weston ASBESTOS BRAKE LINING FINISHER HELPER Ot R06.02 SHORTNESS OF BREATH 10/31/2016 KRISTOPHER MILLER Enrico ASBESTOS BRAKE LINING FINISHER HELPER Ot Z79.899 OTHER [facility] (CURRENT) DRUG THERAPY 11/01/2016 MILLER, KRISTOPHER Weston ASBESTOS BRAKE LINING FINISHER HELPER Ot F17.210 NICOTINE DEPENDENCE, CIGARETTES, UNCOMPL 11/01/2016 MILLER, KRISTOPHER Weston ASBESTOS BRAKE LINING FINISHER HELPER Ot F41.9 ANXIETY DISORDER, UNSPECIFIED 11/01/2016 KRISTOPHER MILLER Enrico ASBESTOS BRAKE LINING FINISHER HELPER Ot R00.2 PALPITATIONS 11/01/2016 MILLERKRISTOPHER BAILON Enrico ASBESTOS BRAKE LINING FINISHER HELPER Ot R06.02 SHORTNESS OF BREATH 11/01/2016 MILLERKRISTOPHER BAILON Enrico ASBESTOS BRAKE LINING FINISHER HELPER Ot Z79.899 OTHER MULTIPLE SPINDLE SCREW MACHINE OPERATOR (CURRENT) DRUG THERAPY 12/18/2016 MUNIRA ADAMS [...] 786.09 RESPIRATORY ABNORM NEC 12/18/2016 DAMI VILLARREAL TRUCK LEASING MANAGER Ot Z12.31 ENCNTR SCREEN MAMMOGRAM FOR MALIGNANT NE 12/18/2016 ASHOK ADAMS, ROMY Huitron Ot R00.2 PALPITATIONS 12/18/2016 GABRIELA PRYOR DO Ot F17.210 NICOTINE DEPENDENCE, CIGARETTES, UNCOMPL 12/18/2016 GABRIELA PRYOR DO Ot J44.9 CHRONIC OBSTRUCTIVE PULMONARY DISEASE, U 12/18/2016 GABRIELA PRYOR DO Ot J45.909 UNSPECIFIED ASTHMA, UNCOMPLICATED 12/18/2016 GABRIELA PRYOR DO Ot R05 COUGH 12/19/2016 ROYA GABRIELA GRACIA Ot F17.210 NICOTINE DEPENDENCE, CIGARETTES, UNCOMPL 12/19/2016 [...] 786.09 RESPIRATORY ABNORM NEC 01/15/2017 DAMI VILLARREAL TRUCK LEASING MANAGER Ot Z12.31 ENCNTR SCREEN MAMMOGRAM FOR MALIGNANT [...] 01/15/2017 MARYCHUY WEATHERS MDNT A Ot Z79.84 MULTIPLE SPINDLE SCREW MACHINE OPERATOR (CURRENT) USE OF ORAL HYPOGLYC 01/15/2017 MARYCHUY WEATHERS MDNT A Ot Z79.899 OTHER [facility] (CURRENT) DRUG THERAPY 01/16/2017 MERON WEATHERS MD A Ot E11.65 TYPE 2 DIABETES MELLITUS WITH HYPERGLYCE 01/16/2017 MERON WEATHERS MD A Ot I10 ESSENTIAL (PRIMARY) HYPERTENSION 01/16/2017 MERON WEATHERS MD A Ot J44.9 CHRONIC OBSTRUCTIVE PULMONARY DISEASE, U 01/16/2017 MERON WEATHERS MD A Ot R42 DIZZINESS AND GIDDINESS 01/16/2017 MERON WEATHERS MD A Ot Z79.84 [facility] (CURRENT) USE OF ORAL HYPOGLYC 01/16/2017 MERON WEATHERS MD A Ot Z79.899 OTHER MULTIPLE SPINDLE SCREW MACHINE OPERATOR (CURRENT) DRUG THERAPY 01/25/2017 KADIE LAUGHLIN [...] HEADACHE 02/05/2017 SHAILESH ORTIZ MD, Ot Z79.84 MULTIPLE SPINDLE SCREW MACHINE OPERATOR (CURRENT) USE OF ORAL HYPOGLYC 02/05/2017 SHAILESH ORTIZ MD, Ot Z79.899 OTHER [facility] (CURRENT) DRUG THERAPY Procedures Code Description [place] [address] URINE DRUG SCREEN (IN-HOUSE) 10/22/2012 50198 ROUTINE VENIPUNCTURE 02/24/2013 93136 GLUCOSE 2012 80741 LIPID PANEL 02/24 94216 ROUTINE VENIPUNCTURE 03/21/2013 29837 A1C (IN-HOUSE) 04135 URINE DRUG SCREEN (IN-HOUSE) 03/21/2013 20394 FSH 03/21/2013 93473 LH 03/21/2013 97105 URINE DRUG SCREEN (IN-HOUSE) 09/01/2013 Cardiolog Roni Anthony 11/07/2013 44331 ROUTINE VENIPUNCTURE 11/13/2013 15031 EKG, TRACING (IN-HOUSE) 11/13/2013 68329 URINE DRUG SCREEN (IN-HOUSE) 11/13/2013 12284 CBC 11/13/2013 64395 CMP 11/13/2013 21547 LIPID PANEL 11/13 02284 MAGNESIUM 2013 [id number] GFR CALC (RESULT ONLY) 11/13/2013 72302 TSH 11/13/2013 64242 URINE DRUG SCREEN (IN-HOUSE) 12/25/2013 711254 [employer] DRUG SCREEN 03/09/2014 Results Test Result [...] Status Pt. Type Provider Facility Loc./Unit Complaint [id number] 03/09/2014 15:25:00 03/09/2014 23: 59:59 CLS Outpatient DENZEL CHILEL MD [id number] 12/25/2013 15:27:00 12/25/2013 23: 59:59 CLS Outpatient DENZEL CHILEL MD [id number] 12/25/2013 15:27:00 12/25/2013 23: 59:59 CLS Outpatient DENZEL CHILEL MD [id number] 11/13/2013 07:59:00 11/13/2013 23: 59:59 CLS Outpatient DENZEL CHILEL MD [id number] 11/04/2013 16:08:00 11/04/2013 23: 59:59 CLS Outpatient DENZEL CHILEL MD [id number] 09/01/2013 14:25:00 09/01/2013 23: 59:59 CLS Outpatient DENZEL CHILEL MD [id number] 09/01/2013 14:25:00 09/01/2013 23: 59:59 CLS Outpatient DENZEL CHILEL MD [id number] 05/15/2013 11:35:00 05/15/2013 23: 59:59 CLS Outpatient YOEL GREEN DO [id number] 01/21/2013 10:26:00 01/21/2013 23: 59:59 CLS Outpatient YOEL GREEN DO [id number] 01/02/2013 16:04:00 01/02/2013 23: 59:59 CLS Outpatient DENZEL CHILEL MD [id number] 11/21/2012 10:28:00 11/21/2012 23: 59:59 CLS Outpatient YOEL GREEN DO [id number] 10/22/2012 14:03:00 10/22/2012 23: 59:59 CLS Outpatient DENZEL CHILEL MD [id number] 08/21/2012 11:41:00 08/21/2012 23: 59:59 [place] [id number] 08/21/2012 11:41:00 08/21/2012 23: 59:59 CLS Outpatient YOEL GREEN DO [id number] 04/23/2013 13:58:00 Document Registration [id number] 03/21/2013 15:05:00 Document Registration [id number] 02/24/2013 12:29:00 Document Registration [id number] 02/24/2013 12:29:00 Document Registration
== END 2017-01-28 04:14 | disposition home or self-care (01) ==
LOC: EDUNIT# 01:22 → ER 01:24
DX: R10.816 Epigastric abdominal tenderness (principal); R07.89 Other chest pain; J44.9 Chronic obstructive pulmonary disease, unspecified; I10 Essential (primary) hypertension; F41.9 Anxiety disorder, unspecified; F17.210 Nicotine dependence, cigarettes, uncomplicated
CPT/HCPCS: 36415; 71010; 80053; 83690; 83735; 83874; 84484; 85025; 85610; 85730; 93005; 93041

== ENCOUNTER 2017-02-02 23:52 | Emergency (ER) | payer MEDICARE, MEDICAID ==
[~2017-02-02] VITALS: Ht 154.9 cm; Wt 77.1 kg
[~2017-02-02 23:52] MED LIST changes: +OMEP20TA7 PO
[2017-02-02] MEDS ORDERED: ATOR40TA70 (23:59)
[2017-02-03] MEDS ORDERED: BUSP7.5T5 PO (00:11)
--- NOTE | 2017-02-03 00:11 | ED General ---
General Chief Complaint: General Problems/Pain Stated Complaint: SHAKEY,TIRED,FLUSHED FACE Nursing Triage Note: patient reports her BP being off and having a headache since waking this morning Nursing Sepsis Screen: No Definite Risk Source of Information: Patient, Old Records Exam Limitations: No Limitations History of Present Illness Time Seen by Provider: 23:54 Initial Comments This 51-year-old woman presents to the emergency room via EMS with multiple vague complaints including feeling shaky and tired all day, feeling facial flushing, and headache. She reports recently starting lisinopril. Patient is concerned about her blood pressure. Blood pressure for EMS was 163/88. Heart rate was initially 125 for EMS. Patient has been seen numerous times in the recent past including having an encounter with this provider. EMS reports she specifically asked for Xanax. I have had discussion with this patient on prior encounter regarding chronic anxiety management and the need to seek treatment from her primary providers rather than the ER. Blood pressure is 140/95 on arrival. Heart rate is trending down in the 100s. Allergies and Home Medications Allergies Coded Allergies: Sulfa (Sulfonamide Antibiotics) (Verified Allergy, Unknown, 04/18/06) hydrocodone (Verified Adverse Reaction, Unknown, SICK TO STOMACH, 02/02/14) Home Medications Atorvastatin Calcium 40 Mg Tablet, #30 (Reported) Buspirone HCl 7.5 Mg Tablet, 7.5 MG PO BID, #14 Prescribed by: SHAILESH SINHA on 02/03/17 0011 Hydroxyzine HCl 25 Mg Tablet, 25 MG PO UD, #90 (Reported) Metformin HCl 500 Mg Tab.er.24h, 500 MG PO DAILY, #30 (Reported) Omeprazole 20 Mg Tablet.dr, 20 MG PO DAILY, #30 Prescribed by: SHAILESH SINHA on 01/28/17 0408 Constitutional: see HPI EENTM: see HPI Respiratory: no symptoms reported Cardiovascular: see HPI Gastrointestinal: no symptoms reported 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: no symptoms reported : No Musculoskeletal: no symptoms reported Skin: see HPI Psychiatric/Neurological: See HPI Hematologic/Lymphatic: No Symptoms Reported Immunological/Allergic: no symptoms reported Past Rzmogzd-Imlwqt-Mftgjn Hx Patient Social History Alcohol Use: Denies Use Recreational Drug Use: No Smoking Status: Current Everyday Smoker Type Used: Cigarettes 2nd Hand Smoke Exposure: Yes Recent Foreign Travel: No Contact w/Someone Who Travel: No Recent Infectious Disease Expo: No Recent Hopitalizations: No Seasonal Allergies Seasonal Allergies: No Surgeries HX Surgeries: Yes Surgeries: Section, 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, Joint Replacement, Orthopedic Respiratory Hx Respiratory Disorders: Yes Respiratory Disorders: COPD, Emphysema Cardiovascular Hx Cardiac Disorders: Yes Cardiac Disorders: Hypertension, Palpitations Neurological Hx Neurological Disorders: Yes (RESTLESS LEG SYNDROME) 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 System Hx 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 Disorders: No Sexually Transmitted Disease: No MOLD SHIFTER History: 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 Hx 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 Disorders: No Gastrointestinal Hx Gastrointestinal Disorders: No Musculoskeletal Hx Musculoskeletal Disorders: Yes (RESTLESS LEG SYNDROME; RIGHT HIP FX/ REPLACEMENT) Musculoskeletal Disorders: Arthritis, Scoliosis, Chronic Back Pain, Fractures Endocrine Hx Endocrine Disorders: Yes Endocrine Disorders: Diabetes, Non-Insulin dep HEENT HX ENT Disorders: No (DENTURES) Cancer Hx Cancer: No Psychosocial Hx Psychiatric Problems: Yes Behavioral Health Disorders: Sleep Difficulties, Anxiety, Bipolar, Depression Integumentary HX Skin/Integumentary Disorder: No Blood Transfusions Hx Blood Disorders: No Adverse Reaction to a Blood Tr: No Family Medical History Significant Family History: Psychiatric Problems Physical Exam Vital Signs Vital Sign - Last 12Hours 02/02/17 23:56 Temp 99.0 Pulse 107 Resp 18 B/P (MAP) 140/95 Pulse Ox 97 Capillary Refill : Less Than 3 Seconds General Appearance: No Apparent Distress, WD/WN HEENT: PERRL/EOMI, Normal ENT Inspection, Pharynx Normal Neck: Normal Inspection Respiratory: Lungs Clear, Normal Breath Sounds, No Accessory Muscle Use, No Respiratory Distress Cardiovascular: Regular Rate, Rhythm, No Edema, No Murmur Extremity: Normal Inspection, No Pedal Edema Neurologic/Psychiatric: Alert, Oriented x3, No Motor/Sensory Deficits, friend of the court II- XII Norm as Tested, Other (minimally anxious) Skin: Normal Color, Warm/Dry Progress/Results/Core Measures Results/Orders My Orders Orders - SHAILESH ORTIZ MD Buspirone Tablet (Buspar Tablet) (02/03/17 00:15) Vital Signs/I&O Blood Pressure Mean: 110 Progress Note : Progress Note Exam was unremarkable. No significant abnormalities were observed in vital signs. Patient pressure this provider for anxiety medication. A dose of BuSpar was provided along with a trial prescription. I informed patient it is not appropriate for the emergency room to be used to provide maintenance anxiety medications. Patient was dismissed and threatened to "carlos you all if anything happens" on her way to check out. Departure Impression Impression: Primary Impression: Anxiety Additional Impressions: Headache Qualified Codes: R51 - Headache Hypertension Qualified Codes: I10 - Essential (primary) hypertension Disposition: HOME, SELF-CARE Condition: Improved Departure-Patient Inst. Decision time for Depature: 00:05 Referrals: ROMY PULIDO MD (PCP/Family) Primary Care Physician Patient Instructions: Anxiety, Adult (DC) Add. Discharge Instructions: Use your medications as prescribed. You may trial of BuSpar prescribed in the emergency room and follow-up with your primary care provider and/or behavioral health provider soon as possible. You may take Tylenol and/or ibuprofen for headache. All discharge instructions reviewed with patient and/or family. Voiced understanding. Scripts Buspirone HCl (Buspirone HCl) 7.5 Mg Tablet 7.5 MG PO BID, #14 TAB Prov: SHAILESH ORTIZ MD 02/03/17 Copy Copies To 1: ROMY PULIDO MD, JOSHUA T MD Feb 03, 2017 00:11
[2017-02-03] MEDS ORDERED: busPIRone 5 MG (BUSPAR) TAB PO ONE (00:15)
[2017-02-03 00:16] VITALS: BP 140/95
--- OUTSIDE RECORDS SUMMARY | 2017-02-27 09:03 | XMS REPORT | Continuity of Care Document ---
Author Author [facility] Address Unknown Phone Unavailable Allergies Active Description Code Type Severity Reaction Onset Reported/Identified Relationship to Patient Clinical Status Yes Sulfa (Sulfonamide Antibiotics) [id number] Drug Allergy Unknown N/A 04/18/2006 Yes sulfa [...] Yes tramadol Drug Allergy 12/20/2010 Yes hydrocodone [id number] Drug Allergy Unknown SICK TO STOMACH 02/02/2014 [...] UNSPECIFIED EPISODIC MOOD DISORDER 01/07/2009 GETACHEW ADAMS, DEZNEL 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 01/07/2009 GETACHEW ADAMS, [...] Family History Of Ischemic Heart Disease 04/22/2009 OYEL GREEN DO V15.82 Personal History Of Tobacco [...] Heart Disease 08/05/2009 YOEL GREEN DO V72.31 Mobile Engineer Exam, Routine 08/05/2009 YOEL GREEN DO V72.31 Mobile Engineer Exam, Routine 08/05/2009 DENZEL CHILEL MD V72.31 Mobile Engineer Exam, Routine 08/05/2009 YOEL GREEN DO V72.31 Mobile Engineer Exam, Routine 08/05/2009 DENZEL CHILEL MD V72.31 Mobile Engineer Exam, Routine 08/05/2009 YOEL GREEN DO V72.31 Mobile Engineer Exam, Routine 08/05/2009 V72.31 Mobile Engineer Exam, Routine 08/05/2009 V72.31 Mobile Engineer Exam, Routine 08/05/2009 V72.31 Mobile Engineer Exam, Routine 08/05/2009 V72.31 Mobile Engineer Exam, Routine 08/05/2009 YOEL GREEN DO V72.31 Mobile Engineer Exam, Routine 08/05/2009 GETACHEW ADAMS, DENZEL V72.31 Mobile Engineer Exam, Routine 08/05/2009 GETACHEW ADAMS, DENZEL V72.31 Mobile Engineer Exam, Routine 08/05/2009 GETACHEW ADAMS, DENZEL V72.31 Mobile Engineer Exam, Routine 08/05/2009 GETACHEW ADAMS, DENZEL V72.31 Mobile Engineer Exam, Routine 08/05/2009 GETACHEW ADAMS, DENZEL V72.31 Mobile Engineer Exam, Routine 08/05/2009 GETACHEW ADAMS, DENZEL V72.31 Mobile Engineer Exam, Routine 08/05/2009 GETACHEW ADAMS, DENZEL V72.31 Mobile Engineer Exam, Routine 12/02/2009 YOEL GREEN DO 305.1 [...] DISORDERS OF FUNCTION OF STOMACH 09/02/2010 DENZEL CHILLE MD.8 DYSPEPSIA AND OTHER SPECIFIED DISORDERS OF FUNCTION OF STOMACH 09/02/2010 DEZNEL CHILEL MD.8 DYSPEPSIA AND OTHER SPECIFIED DISORDERS [...] K Ot 300.00 ANXIETY STATE NOS 01/28/2014 JLUI LAUGHLIN DOA K Ot 780.52 INSOMNIA, UNSPECIFIED [...] FACP CCDS Ot 496 05/08/2015 [facility], ALI FACP CCDS Ot 785.1 05/08/2015 [facility], ALI FACP CCDS Ot 786.09 05/08/2015 KRISTOPHER MILLER DIGITAL SALES REPRESENTATIVE Ot 780.52 INSOMNIA, UNSPECIFIED 05/08/2015 KRISTOPHER MILLER DIGITAL SALES REPRESENTATIVE Ot V68.1 ISSUE REPEAT PRESCRIPT 02/25/2016 ROMY [...] RESPIRATORY ABNORM NEC 06/07/2016 DAMI VILLARREAL R FOOD SAFETY FIELD SPECIALIST Ot Z12.31 ENCNTR SCREEN MAMMOGRAM FOR MALIGNANT NE 06/08/2016 DAMI VILLARREAL R FOOD SAFETY FIELD SPECIALIST Ot Z12.31 ENCNTR SCREEN MAMMOGRAM FOR MALIGNANT NE 06/15/2016 DAMI VILLARREAL R FOOD SAFETY FIELD SPECIALIST Ot Z12.31 ENCNTR SCREEN MAMMOGRAM FOR MALIGNANT NE 06/16/2016 DAMI VILLARREAL R FOOD SAFETY FIELD SPECIALIST Ot Z12.31 ENCNTR SCREEN MAMMOGRAM FOR MALIGNANT NE 06/16/2016 DAMI VILLARREAL R FOOD SAFETY FIELD SPECIALIST Ot Z12.31 ENCNTR SCREEN MAMMOGRAM FOR MALIGNANT NE 06/16/2016 ROMY PULIDO MD N Ot R00.2 PALPITATIONS 06/30/2016 DAMI VILLARREAL FOOD SAFETY FIELD SPECIALIST Ot Z12.31 ENCNTR SCREEN MAMMOGRAM FOR MALIGNANT NE 07/04/2016 DAMI VILLARREAL R FOOD SAFETY FIELD SPECIALIST Ot Z12.31 ENCNTR SCREEN MAMMOGRAM FOR MALIGNANT [...] CHR AIRWAY OBSTRUCT NEC 08/12/2016 [facility], ALI FACP CCDS Ot 785.1 PALPITATIONS 08/12/2016 [facility], ALI FACP CCDS Ot 786.09 RESPIRATORY ABNORM NEC 08/12/2016 ROMY PULIDO MD Ot R00.2 PALPITATIONS 08/12/2016 DAMI VILLARREAL FOOD SAFETY FIELD SPECIALIST Ot Z12.31 ENCNTR SCREEN MAMMOGRAM FOR MALIGNANT NE 08/12/2016 MARIALUISA PATEL MD Ot F17.210 NICOTINE DEPENDENCE, CIGARETTES, UNCOMPL 08/12/2016 MARIALUISA PATEL MD Ot I47.9 PAROXYSMAL TACHYCARDIA, UNSPECIFIED 08/12/2016 MARIALUISA PATEL MD Ot R00.0 TACHYCARDIA, UNSPECIFIED 08/12/2016 [facility], ALI FACP CCDS Ot 305.1 TOBACCO USE DISORDER 08/12/2016 [facility], ALI FACP CCDS Ot 496 CHR AIRWAY OBSTRUCT NEC 08/12/2016 [facility], ALI FACP CCDS Ot 785.1 PALPITATIONS 08/12/2016 [facility], ALI FACP CCDS Ot 786.09 RESPIRATORY ABNORM NEC 08/12/2016 [facility], ALI FACP CCDS Ot 305.1 TOBACCO USE DISORDER 08/12/2016 [facility], ALI FACP CCDS Ot 496 CHR AIRWAY OBSTRUCT NEC 08/12/2016 [facility], ALI FACP CCDS Ot 785.1 PALPITATIONS 08/12/2016 [facility], ALI FACP CCDS Ot 786.09 RESPIRATORY ABNORM NEC 08/12/2016 ROMY PULIDO MD N Ot R00.2 PALPITATIONS 08/12/2016 DAMI VILLARREAL FOOD SAFETY FIELD SPECIALIST Ot Z12.31 ENCNTR SCREEN MAMMOGRAM FOR MALIGNANT [...] 786.09 RESPIRATORY ABNORM NEC 10/11/2016 DAMI VILLARREAL FOOD SAFETY FIELD SPECIALIST Ot Z12.31 ENCNTR SCREEN MAMMOGRAM FOR MALIGNANT NE 10/11/2016 ROMY PULIDO MD Ot R00.2 PALPITATIONS 10/11/2016 KADIE LAUGHLIN DO Ot F17.210 NICOTINE DEPENDENCE, CIGARETTES, UNCOMPL 10/11/2016 KADIE LAUGHLIN DO Ot F41.9 ANXIETY DISORDER, UNSPECIFIED 10/11/2016 KADIE LAUGHLIN DO Ot J44.9 CHRONIC OBSTRUCTIVE PULMONARY DISEASE, U 10/11/2016 KADIE LAUGHLIN DO Ot R00.2 PALPITATIONS 10/11/2016 KADIE LAUGHLIN DO Ot Z79.899 OTHER [facility] (CURRENT) DRUG THERAPY 10/29/2016 KRISTOPHER MILLER DIGITAL SALES REPRESENTATIVE Ot F17.210 NICOTINE DEPENDENCE, CIGARETTES, UNCOMPL 10/29/2016 KRISTOPHER MILLER DIGITAL SALES REPRESENTATIVE Ot F41.9 ANXIETY DISORDER, UNSPECIFIED 10/29/2016 KRISTOPHER MILLER APRN Ot R00.2 PALPITATIONS 10/29/2016 KRISTOPHER MILLER APRN Ot R06.02 SHORTNESS OF BREATH 10/29/2016 KRISTOPHER MILLER DIGITAL SALES REPRESENTATIVE Ot Z79.899 OTHER BEAMING INSPECTOR (CURRENT) DRUG THERAPY 10/29/2016 MUNIRA ADAMS FACC, [...] 496 CHR AIRWAY OBSTRUCT NEC 10/29/2016 MUNIRA DAAMS FACC, ALI FACP CCDS Ot 785.1 PALPITATIONS 10/29/2016 MUNIRA ADAMS FACC, ALI FACP CCDS Ot 786.09 RESPIRATORY ABNORM NEC 10/29/2016 DAMI VILLARREAL FOOD SAFETY FIELD SPECIALIST Ot Z12.31 ENCNTR SCREEN MAMMOGRAM FOR MALIGNANT NE 10/29/2016 ROMY PULIDO MD Ot R00.2 PALPITATIONS 10/31/2016 KRISTOPHER MILLER DIGITAL SALES REPRESENTATIVE Ot F17.210 NICOTINE DEPENDENCE, CIGARETTES, UNCOMPL 10/31/2016 KRISTOPHER MILLER DIGITAL SALES REPRESENTATIVE Ot F41.9 ANXIETY DISORDER, UNSPECIFIED 10/31/2016 MILLERKRISTOPHER BAILON Enrico DIGITAL SALES REPRESENTATIVE Ot R00.2 PALPITATIONS 10/31/2016 MILLER, KRISTOPHER Weston DIGITAL SALES REPRESENTATIVE Ot R06.02 SHORTNESS OF BREATH 10/31/2016 KRISTOPHER MILLER Enrico DIGITAL SALES REPRESENTATIVE Ot Z79.899 OTHER [facility] (CURRENT) DRUG THERAPY 11/01/2016 MILLER, KRISTOPHER Weston DIGITAL SALES REPRESENTATIVE Ot F17.210 NICOTINE DEPENDENCE, CIGARETTES, UNCOMPL 11/01/2016 MILLER, KRISTOPHER Weston DIGITAL SALES REPRESENTATIVE Ot F41.9 ANXIETY DISORDER, UNSPECIFIED 11/01/2016 KRISTOPHER MILLER Enrico DIGITAL SALES REPRESENTATIVE Ot R00.2 PALPITATIONS 11/01/2016 MILLERKRISTOPHER BAILON Enrico DIGITAL SALES REPRESENTATIVE Ot R06.02 SHORTNESS OF BREATH 11/01/2016 MILLERKRISTOPHER BAILON Enrico DIGITAL SALES REPRESENTATIVE Ot Z79.899 OTHER BEAMING INSPECTOR (CURRENT) DRUG THERAPY 12/18/2016 [facility] AD[facility], [...] 786.09 RESPIRATORY ABNORM NEC 12/18/2016 DAMI VILLARREAL FOOD SAFETY FIELD SPECIALIST Ot Z12.31 ENCNTR SCREEN MAMMOGRAM FOR MALIGNANT [...] Ot R07.9 CHEST PAIN, UNSPECIFIED 01/15/2017 MUNIRA AADMS FACC, ALI FACP CCDS Ot 305.1 TOBACCO [...] 786.09 RESPIRATORY ABNORM NEC 01/15/2017 DAMI VILLARREAL FOOD SAFETY FIELD SPECIALIST Ot Z12.31 ENCNTR SCREEN MAMMOGRAM FOR MALIGNANT [...] 01/15/2017 MARYCHUY WEATHERS MDNT A Ot Z79.84 BEAMING INSPECTOR (CURRENT) USE OF ORAL HYPOGLYC 01/15/2017 MARYCHUY WEATHERS MDNT A Ot Z79.899 OTHER [facility] (CURRENT) DRUG THERAPY 01/16/2017 MERON WEATHERS MD A Ot E11.65 TYPE 2 DIABETES MELLITUS WITH HYPERGLYCE 01/16/2017 MERON WEATHERS MD A Ot I10 ESSENTIAL (PRIMARY) HYPERTENSION 01/16/2017 MERON WEATHERS MD A Ot J44.9 CHRONIC OBSTRUCTIVE PULMONARY DISEASE, U 01/16/2017 MERON WEATHERS MD A Ot R42 DIZZINESS AND GIDDINESS 01/16/2017 MERON WEATHERS MD A Ot Z79.84 [facility] (CURRENT) USE OF ORAL HYPOGLYC 01/16/2017 MERON WEATHERS MD A Ot Z79.899 OTHER BEAMING INSPECTOR (CURRENT) DRUG THERAPY 01/25/2017 KADIE LAUGHLIN DO [...] HEADACHE 02/05/2017 SHAILESH ORTIZ MD, Ot Z79.84 BEAMING INSPECTOR (CURRENT) USE OF ORAL HYPOGLYC 02/05/2017 SHAILESH ORTIZ MD, Ot Z79.899 OTHER [facility] (CURRENT) DRUG THERAPY Procedures Code [place] [address] URINE DRUG SCREEN (IN-HOUSE) 10/22/2012 38162 ROUTINE VENIPUNCTURE 02/24/2013 52133 GLUCOSE 2012 30065 LIPID PANEL 02/24 14418 ROUTINE VENIPUNCTURE 03/21/2013 68562 A1C (IN-HOUSE) 04171 URINE DRUG SCREEN (IN-HOUSE) 03/21/2013 77983 FSH 03/21/2013 59374 LH 03/21/2013 78265 URINE DRUG SCREEN (IN-HOUSE) 09/01/2013 Cardiolog Roni Anthony 11/07/2013 01900 ROUTINE VENIPUNCTURE 11/13/2013 55150 EKG, TRACING (IN-HOUSE) 11/13/2013 11378 URINE DRUG SCREEN (IN-HOUSE) 11/13/2013 47376 CBC 11/13/2013 28075 CMP 11/13/2013 98956 LIPID PANEL 11/13 79586 MAGNESIUM 2013 [id number] GFR CALC (RESULT ONLY) 11/13/2013 19940 TSH 11/13/2013 69195 URINE DRUG SCREEN (IN-HOUSE) 12/25/2013 485941 [employer] DRUG SCREEN 03/09/2014 Results Test Result [...] Status Pt. Type Provider Facility Loc./Unit Complaint [id number] 03/09/2014 15:25:00 03/09/2014 23: 59:59 CLS Outpatient DENZEL CHILEL MD [id number] 12/25/2013 15:27:00 12/25/2013 23: 59:59 CLS Outpatient DENZEL CHILEL MD [id number] 12/25/2013 15:27:00 12/25/2013 23: 59:59 CLS Outpatient DENZEL CHILEL MD [id number] 11/13/2013 07:59:00 11/13/2013 23: 59:59 CLS Outpatient DENZEL CHILEL MD [id number] 11/04/2013 16:08:00 11/04/2013 23: 59:59 CLS Outpatient DENZEL CHILEL MD [id number] 09/01/2013 14:25:00 09/01/2013 23: 59:59 CLS Outpatient DENZEL CHILEL MD [id number] 09/01/2013 14:25:00 09/01/2013 23: 59:59 CLS Outpatient DENZEL CHILEL MD [id number] 05/15/2013 11:35:00 05/15/2013 23: 59:59 CLS Outpatient YOEL GREEN DO [id number] 01/21/2013 10:26:00 01/21/2013 23: 59:59 CLS Outpatient YOEL GREEN DO [id number] 01/02/2013 16:04:00 01/02/2013 23: 59:59 CLS Outpatient DENZEL CHILEL MD [id number] 11/21/2012 10:28:00 11/21/2012 23: 59:59 CLS Outpatient YOEL GREEN DO [id number] 10/22/2012 14:03:00 10/22/2012 23: 59:59 CLS Outpatient DENZEL CHILEL MD [id number] 08/21/2012 11:41:00 08/21/2012 23: 59:59 [place] [id number] 08/21/2012 11:41:00 08/21/2012 23: 59:59 CLS Outpatient YOEL GREEN DO [id number] 04/23/2013 13:58:00 Document Registration [id number] 03/21/2013 15:05:00 Document Registration [id number] 02/24/2013 12:29:00 Document Registration [id number] 02/24/2013 12:29:00 Document Registration
--- OUTSIDE RECORDS SUMMARY | 2017-02-27 09:06 | XMS REPORT | Continuity of Care Document ---
Author Author [facility] Address Unknown Phone Unavailable Allergies Active Description Code Type Severity Reaction Onset Reported/Identified Relationship to Patient Clinical Status Yes Sulfa (Sulfonamide Antibiotics) [id number] Drug Allergy Unknown N/A 04/18/2006 Yes sulfa [...] Yes tramadol Drug Allergy 12/20/2010 Yes hydrocodone [id number] Drug Allergy Unknown SICK TO STOMACH 02/02/2014 [...] Heart Disease 08/05/2009 YOEL GREEN DO V72.31 Optical Instruments Supervisor Exam, Routine 08/05/2009 YOEL GREEN DO V72.31 Optical Instruments Supervisor Exam, Routine 08/05/2009 DENZEL CHILEL MD V72.31 Optical Instruments Supervisor Exam, Routine 08/05/2009 YOEL GREEN DO V72.31 Optical Instruments Supervisor Exam, Routine 08/05/2009 DENZEL CHILEL MD V72.31 Optical Instruments Supervisor Exam, Routine 08/05/2009 YOEL GREEN DO V72.31 Optical Instruments Supervisor Exam, Routine 08/05/2009 V72.31 Optical Instruments Supervisor Exam, Routine 08/05/2009 V72.31 Optical Instruments Supervisor Exam, Routine 08/05/2009 V72.31 Optical Instruments Supervisor Exam, Routine 08/05/2009 V72.31 Optical Instruments Supervisor Exam, Routine 08/05/2009 YOEL GREEN DO V72.31 Optical Instruments Supervisor Exam, Routine 08/05/2009 GETACHEW ADAMS, DENZEL V72.31 Optical Instruments Supervisor Exam, Routine 08/05/2009 GETACHEW ADAMS, DENZEL V72.31 Optical Instruments Supervisor Exam, Routine 08/05/2009 GETACHEW ADAMS, DENZEL V72.31 Optical Instruments Supervisor Exam, Routine 08/05/2009 GETACHEW ADAMS, DENZEL V72.31 Optical Instruments Supervisor Exam, Routine 08/05/2009 GETACHEW ADAMS, DENZEL V72.31 Optical Instruments Supervisor Exam, Routine 08/05/2009 GETACHEW ADAMS, DENZEL V72.31 Optical Instruments Supervisor Exam, Routine 08/05/2009 GETACHEW ADAMS, DENZEL V72.31 Optical Instruments Supervisor Exam, Routine 12/02/2009 YOEL GREEN DO 305.1 [...] TRACT INFECTION SITE NOT SPECIFIED 03/13/2011 DENZEL HCILEL MD 616.10 VAGINITIS AND VULVOVAGINITIS UNSPECIFIED 03/13/2011 [...] DO F 298.9 P PSYCHOSIS NOS 08/21/2012 DEZNEL CHILEL MD 298.9 P PSYCHOSIS NOS 08/21/2012 [...] UNSPECIFIED ARTHROPATHY SITE UNSPECIFIED 02/17/2013 GETACHEW ADAMS, DENZLE 716.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 ARTHROPATHY SITE UNSPECIFIED 02/17/2013 GETACHEW [...] MD Ot 737.30 IDIOPATHIC SCOLIOSIS 04/17/2014 SHAILESH ORITZ MD Ot 785.1 PALPITATIONS 04/17/2014 SHAILESH ORTIZ [...] FACP CCDS Ot 496 05/08/2015 MUNIRA ADAMS [facility], ALI FACP CCDS Ot 785.1 05/08/2015 MUNIRA ADAMS [facility], ALI FACP CCDS Ot 786.09 05/08/2015 KRISTOPHER MILLER WICK TENDER Ot 780.52 INSOMNIA, UNSPECIFIED 05/08/2015 KRISTOPHER MILLER WICK TENDER Ot V68.1 ISSUE REPEAT PRESCRIPT 02/25/2016 ROMY [...] RESPIRATORY ABNORM NEC 06/07/2016 DAMI VILLARREAL R RADIO COMMUNICATIONS MECHANICIAN Ot Z12.31 ENCNTR SCREEN MAMMOGRAM FOR MALIGNANT NE 06/08/2016 DAMI VILLARREAL R RADIO COMMUNICATIONS MECHANICIAN Ot Z12.31 ENCNTR SCREEN MAMMOGRAM FOR MALIGNANT NE 06/15/2016 DAMI VILLARREAL R RADIO COMMUNICATIONS MECHANICIAN Ot Z12.31 ENCNTR SCREEN MAMMOGRAM FOR MALIGNANT NE 06/16/2016 DAMI VILLARREAL R RADIO COMMUNICATIONS MECHANICIAN Ot Z12.31 ENCNTR SCREEN MAMMOGRAM FOR MALIGNANT NE 06/16/2016 DAMI VILLARREAL R RADIO COMMUNICATIONS MECHANICIAN Ot Z12.31 ENCNTR SCREEN MAMMOGRAM FOR MALIGNANT NE 06/16/2016 ROMY PULIDO MD N Ot R00.2 PALPITATIONS 06/30/2016 DAMI VILLARREAL RADIO COMMUNICATIONS MECHANICIAN Ot Z12.31 ENCNTR SCREEN MAMMOGRAM FOR MALIGNANT NE 07/04/2016 DAMI VILLARREAL R RADIO COMMUNICATIONS MECHANICIAN Ot Z12.31 ENCNTR SCREEN MAMMOGRAM FOR MALIGNANT [...] CHR AIRWAY OBSTRUCT NEC 08/12/2016 MUNIRA ADAMS [facility], ALI FACP CCDS Ot 785.1 PALPITATIONS 08/12/2016 MUNIRA ADAMS [facility], ALI FACP CCDS Ot 786.09 RESPIRATORY ABNORM NEC 08/12/2016 ROMY PULIDO MD Ot R00.2 PALPITATIONS 08/12/2016 DAMI VILLARREAL RADIO COMMUNICATIONS MECHANICIAN Ot Z12.31 ENCNTR SCREEN MAMMOGRAM FOR MALIGNANT NE 08/12/2016 MARIALUISA PATEL MD Ot F17.210 NICOTINE DEPENDENCE, CIGARETTES, UNCOMPL 08/12/2016 MARIALUISA PATEL MD Ot I47.9 PAROXYSMAL TACHYCARDIA, UNSPECIFIED 08/12/2016 MARIALUISA PATEL MD Ot R00.0 TACHYCARDIA, UNSPECIFIED 08/12/2016 MUNIRA ADAMS [facility], ALI FACP CCDS Ot 305.1 TOBACCO USE DISORDER 08/12/2016 MUNIRA ADAMS [facility], ALI FACP CCDS Ot 496 CHR AIRWAY OBSTRUCT NEC 08/12/2016 MUNIRA ADAMS [facility], ALI FACP CCDS Ot 785.1 PALPITATIONS 08/12/2016 MUNIRA ADAMS [facility], ALI FACP CCDS Ot 786.09 RESPIRATORY ABNORM NEC 08/12/2016 MUNIRA ADAMS [facility], ALI FACP CCDS Ot 305.1 TOBACCO USE DISORDER 08/12/2016 MUNIRA ADAMS [facility], ALI FACP CCDS Ot 496 CHR AIRWAY OBSTRUCT NEC 08/12/2016 MUNIRA ADAMS [facility], ALI FACP CCDS Ot 785.1 PALPITATIONS 08/12/2016 MUNIRA ADAMS [facility], ALI FACP CCDS Ot 786.09 RESPIRATORY ABNORM NEC 08/12/2016 ROMY PULIDO MD N Ot R00.2 PALPITATIONS 08/12/2016 DAMI VILLARREAL RADIO COMMUNICATIONS MECHANICIAN Ot Z12.31 ENCNTR SCREEN MAMMOGRAM FOR MALIGNANT [...] 786.09 RESPIRATORY ABNORM NEC 10/11/2016 DAMI VILLARREAL RADIO COMMUNICATIONS MECHANICIAN Ot Z12.31 ENCNTR SCREEN MAMMOGRAM FOR MALIGNANT NE 10/11/2016 ROMY PULIDO MD Ot R00.2 PALPITATIONS 10/11/2016 KADIE LAUGHLIN DO Ot F17.210 NICOTINE DEPENDENCE, CIGARETTES, UNCOMPL 10/11/2016 KADIE LAUGHLIN DO Ot F41.9 ANXIETY DISORDER, UNSPECIFIED 10/11/2016 KADIE LAUGHLIN DO Ot J44.9 CHRONIC OBSTRUCTIVE PULMONARY DISEASE, U 10/11/2016 KADIE LAUGHLIN DO Ot R00.2 PALPITATIONS 10/11/2016 KADIE LAUGHLIN DO Ot Z79.899 OTHER ALF (CURRENT) DRUG THERAPY 10/29/2016 KRISTOPHER MILLER WICK TENDER Ot F17.210 NICOTINE DEPENDENCE, CIGARETTES, UNCOMPL 10/29/2016 KRISTOPHER MILLER WICK TENDER Ot F41.9 ANXIETY DISORDER, UNSPECIFIED 10/29/2016 KRISTOPHER MILLER APRN Ot R00.2 PALPITATIONS 10/29/2016 KRISTOPHER MILLER APRN Ot R06.02 SHORTNESS OF BREATH 10/29/2016 KRISTOPHER MILLER WICK TENDER Ot Z79.899 OTHER JUKE BOX MECHANIC (CURRENT) DRUG THERAPY 10/29/2016 MUNIRA ADAMS FACC, [...] 786.09 RESPIRATORY ABNORM NEC 10/29/2016 DAMI VILLARREAL RADIO COMMUNICATIONS MECHANICIAN Ot Z12.31 ENCNTR SCREEN MAMMOGRAM FOR MALIGNANT NE 10/29/2016 ROMY PULIDO MD Ot R00.2 PALPITATIONS 10/31/2016 KRISTOPHER MILLER WICK TENDER Ot F17.210 NICOTINE DEPENDENCE, CIGARETTES, UNCOMPL 10/31/2016 KRISTOPHER MILLER WICK TENDER Ot F41.9 ANXIETY DISORDER, UNSPECIFIED 10/31/2016 MILLERKRISTOPHER BAILON Enrico WICK TENDER Ot R00.2 PALPITATIONS 10/31/2016 MILLER, KRISTOPHER Weston WICK TENDER Ot R06.02 SHORTNESS OF BREATH 10/31/2016 KRISTOPHER MILLER Enrico WICK TENDER Ot Z79.899 OTHER ALF (CURRENT) DRUG THERAPY 11/01/2016 MILLER, KRISTOPHER Weston WICK TENDER Ot F17.210 NICOTINE DEPENDENCE, CIGARETTES, UNCOMPL 11/01/2016 MILLER, KRISTOPHER Weston WICK TENDER Ot F41.9 ANXIETY DISORDER, UNSPECIFIED 11/01/2016 KRISTOPHER MILLER Enrico WICK TENDER Ot R00.2 PALPITATIONS 11/01/2016 MILLERKRISTOPHER BAILON Enrico WICK TENDER Ot R06.02 SHORTNESS OF BREATH 11/01/2016 MILLERKRISTOPHER BAILON Enrico WICK TENDER Ot Z79.899 OTHER JUKE BOX MECHANIC (CURRENT) DRUG THERAPY 12/18/2016 MUNIRA ADAMS FACC, [...] 786.09 RESPIRATORY ABNORM NEC 12/18/2016 DAMI VILLARREAL RADIO COMMUNICATIONS MECHANICIAN Ot Z12.31 ENCNTR SCREEN MAMMOGRAM FOR MALIGNANT NE 12/18/2016 ASHOK ADAMS, ROMY Huitron Ot R00.2 PALPITATIONS 12/18/2016 GABRIELA PRYOR DO Ot F17.210 NICOTINE DEPENDENCE, CIGARETTES, UNCOMPL 12/18/2016 GABRIELA PRYOR DO Ot J44.9 CHRONIC OBSTRUCTIVE PULMONARY DISEASE, U 12/18/2016 GABRIELA PRYOR DO Ot J45.909 UNSPECIFIED ASTHMA, UNCOMPLICATED 12/18/2016 GABRIELA PRYRO DO Ot R05 COUGH 12/19/2016 ROYA GABRIELA [...] 786.09 RESPIRATORY ABNORM NEC 01/15/2017 DAMI VILLARREAL RADIO COMMUNICATIONS MECHANICIAN Ot Z12.31 ENCNTR SCREEN MAMMOGRAM FOR MALIGNANT [...] 01/15/2017 MARYCHUY WEATHERS MDNT A Ot Z79.84 JUKE BOX MECHANIC (CURRENT) USE OF ORAL HYPOGLYC 01/15/2017 MARYCHUY WEATHERS MDNT A Ot Z79.899 OTHER ALF (CURRENT) DRUG THERAPY 01/16/2017 MERON WEATHERS MD A Ot E11.65 TYPE 2 DIABETES MELLITUS WITH HYPERGLYCE 01/16/2017 MERON WEATHERS MD A Ot I10 ESSENTIAL (PRIMARY) HYPERTENSION 01/16/2017 MERON WEATHERS MD A Ot J44.9 CHRONIC OBSTRUCTIVE PULMONARY DISEASE, U 01/16/2017 MERON WEATHERS MD A Ot R42 DIZZINESS AND GIDDINESS 01/16/2017 MERON WEATHERS MD A Ot Z79.84 ALF (CURRENT) USE OF ORAL HYPOGLYC 01/16/2017 MERON WEATHERS MD A Ot Z79.899 OTHER JUKE BOX MECHANIC (CURRENT) DRUG THERAPY 01/25/2017 KADIE LAUGHLIN DO [...] HEADACHE 02/05/2017 SHAILESH ORTIZ MD, Ot Z79.84 JUKE BOX MECHANIC (CURRENT) USE OF ORAL HYPOGLYC 02/05/2017 SHAILESH ORTIZ MD, Ot Z79.899 OTHER ALF (CURRENT) DRUG THERAPY Procedures Code Description [place] [address] URINE DRUG SCREEN (IN-HOUSE) 10/22/2012 33780 ROUTINE VENIPUNCTURE 02/24/2013 55195 GLUCOSE 2012 37084 LIPID PANEL 02/24 52185 ROUTINE VENIPUNCTURE 03/21/2013 17069 A1C (IN-HOUSE) 56494 URINE DRUG SCREEN (IN-HOUSE) 03/21/2013 31945 FSH 03/21/2013 17285 LH 03/21/2013 08062 URINE DRUG SCREEN (IN-HOUSE) 09/01/2013 Cardiolog Roni Anthony 11/07/2013 09194 ROUTINE VENIPUNCTURE 11/13/2013 54772 EKG, TRACING (IN-HOUSE) 11/13/2013 28682 URINE DRUG SCREEN (IN-HOUSE) 11/13/2013 46561 CBC 11/13/2013 26502 CMP 11/13/2013 37264 LIPID PANEL 11/13 25101 MAGNESIUM 2013 [id number] GFR CALC (RESULT ONLY) 11/13/2013 37943 TSH 11/13/2013 71676 URINE DRUG SCREEN (IN-HOUSE) 12/25/2013 401961 [employer] DRUG SCREEN 03/09/2014 Results Test Result [...] Status Pt. Type Provider Facility Loc./Unit Complaint [id number] 03/09/2014 15:25:00 03/09/2014 23: 59:59 CLS Outpatient DENZEL CHILEL MD [id number] 12/25/2013 15:27:00 12/25/2013 23: 59:59 CLS Outpatient DENZEL CHILEL MD [id number] 12/25/2013 15:27:00 12/25/2013 23: 59:59 CLS Outpatient DENZEL CHILEL MD [id number] 11/13/2013 07:59:00 11/13/2013 23: 59:59 CLS Outpatient DENZEL CHILEL MD [id number] 11/04/2013 16:08:00 11/04/2013 23: 59:59 CLS Outpatient DENZEL CHILEL MD [id number] 09/01/2013 14:25:00 09/01/2013 23: 59:59 CLS Outpatient DENZEL CHILEL MD [id number] 09/01/2013 14:25:00 09/01/2013 23: 59:59 CLS Outpatient DENZEL CHILEL MD [id number] 05/15/2013 11:35:00 05/15/2013 23: 59:59 CLS Outpatient YOEL GREEN DO [id number] 01/21/2013 10:26:00 01/21/2013 23: 59:59 CLS Outpatient YOEL GREEN DO [id number] 01/02/2013 16:04:00 01/02/2013 23: 59:59 CLS Outpatient DENZEL CHILEL MD [id number] 11/21/2012 10:28:00 11/21/2012 23: 59:59 CLS Outpatient YOEL GREEN DO [id number] 10/22/2012 14:03:00 10/22/2012 23: 59:59 CLS Outpatient DENZEL CHILEL MD [id number] 08/21/2012 11:41:00 08/21/2012 23: 59:59 [place] [id number] 08/21/2012 11:41:00 08/21/2012 23: 59:59 CLS Outpatient YOEL GREEN DO [id number] 04/23/2013 13:58:00 Document Registration [id number] 03/21/2013 15:05:00 Document Registration [id number] 02/24/2013 12:29:00 Document Registration [id number] 02/24/2013 12:29:00 Document Registration
== END 2017-02-03 00:16 | disposition home or self-care (01) ==
LOC: EDUNIT# 23:52 → ER 23:54
DX: F41.9 Anxiety disorder, unspecified (principal); R51 Headache; I10 Essential (primary) hypertension; E11.9 Type 2 diabetes mellitus without complications; J44.9 Chronic obstructive pulmonary disease, unspecified; F17.210 Nicotine dependence, cigarettes, uncomplicated; Z79.84 Long term (current) use of oral hypoglycemic drugs; Z79.899 Other long term (current) drug therapy
CPT/HCPCS: 99281

== ENCOUNTER 2017-03-04 22:00 | Emergency (ER) | payer MEDICARE, MEDICAID ==
[~2017-03-04] VITALS: Ht 154.9 cm; Wt 77.1 kg
[~2017-03-04 22:00] MED LIST changes: +ATOR40TA70; +BUSP7.5T5 PO
[2017-03-04] MEDS ORDERED: NAPR500T3 PO (23:42)
[2017-03-04] MEDS ORDERED: CYCL10TA9 PO (23:42)
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
[2017-03-04 23:45] VITALS: BP 132/73
--- NOTE | 2017-03-05 07:56 | Diagnostic Imaging Report ---
PROCEDURE: CT head and CT cervical spine without contrast. TECHNIQUE: Multiple contiguous axial images were obtained through the brain and cervical spine without the use of intravenous contrast. Sagittal and coronal reformations through the cervical spine were then performed. INDICATION: Left arm feels numb. Comparison studies: None. FINDINGS: CT head: Noncontrast CT scan of the head demonstrates no mass effect, midline shift, hemorrhage, or extra-axial fluid collections. Mark-white matter differentiation is normal. The ventricles, cortical sulci, and basilar cisterns appear normal. Bone windows demonstrate large mucous retention cysts in the right maxillary sinus. Mild opacification of the mastoid air cells is present. There is some sclerosis left greater than right. CT cervical spine: Noncontrast CT scanning of the cervical spine demonstrates no fracture or subluxation. There is no prevertebral soft tissue swelling. A right paracentral disc bulge or protrusion is present at C5-C6. MRI could helpful for further evaluation. The paraspinal soft tissues appear unremarkable. There is some calcification of the carotid bifurcations. Lung apices are clear. IMPRESSION: 1. No acute intracranial findings are present. 2. There is some fluid in the paranasal sinuses and mastoid air cells. 3. Degenerative changes are seen in the cervical spine. Dictated by: Dictated on workstation # [id number]
--- NOTE | 2017-03-05 08:10 | Diagnostic Imaging Report ---
SHOULDER, LEFT, 3 VIEWS COMPARISON: None available. INDICATION: Left shoulder pain. TECHNIQUE: 3 views of left shoulder FINDINGS: No fracture or traumatic malalignment. Subacromial space is maintained. Normal orientation of the acromion. No left-sided pneumothorax. IMPRESSION: Negative left shoulder radiographs. Dictated by: Dictated on workstation # [id number]
== END 2017-03-04 23:45 | disposition home or self-care (01) ==
LOC: EDUNIT# 22:00 → ER 22:03
DX: M79.602 Pain in left arm (principal); M54.6 Pain in thoracic spine; M50.20 Other cervical disc displacement, unspecified cervical region; M47.812 Spondylosis without myelopathy or radiculopathy, cervical region; E11.9 Type 2 diabetes mellitus without complications; J44.9 Chronic obstructive pulmonary disease, unspecified; F17.210 Nicotine dependence, cigarettes, uncomplicated; Z96.641 Presence of right artificial hip joint
CPT/HCPCS: 70450; 72125; 73030; 99283

== ENCOUNTER 2017-09-28 09:46 | Emergency (ER) | payer MEDICARE, MEDICAID ==
[~2017-09-28] VITALS: Ht 154.9 cm; Wt 71.2 kg
[~2017-09-28 09:46] MED LIST changes: +AZIT250T12; -AZIT250T5; +NAPR500T4 PO
--- OUTSIDE RECORDS SUMMARY | 2017-09-28 09:53 | XMS REPORT ---
Author Author ROMY PULIDO Organization [facility] Address [address] [place] [address] Care Team Providers Care Diver Tender Name Role Phone ROMY PULIDO Unavailable PROBLEMS Type Condition ICD9-CM Code OSX23-NR Code Onset Dates Condition Status SNOMED Code Problem Major depressive disorder, recurrent episode, moderate F33.1 Active 817082978 Problem Tobacco use Z72.0 Active 712894446 Problem Insomnia G47.00 Active 244018757 Problem Fibromyalgia M79.7 Active 011948699 Problem Low back pain M54.5 Active 301651767 Problem Generalized anxiety disorder F41.1 Active 38688983 Problem Other chronic pain G89.29 Active 95762060 Problem Lumbago with sciatica, right side M54.41 Active 431259488 Problem Type 2 diabetes mellitus with hyperglycemia, without long-term current use of insulin E11.65 Active 73938104 Problem Panic attacks F41.0 Active 225153121 Problem Mixed hyperlipidemia E78.2 Active 448562569 Problem 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 Active 10752189 ALLERGIES No Information SOCIAL HISTORY Never Assessed PLAN OF CARE VITAL SIGNS MEDICATIONS Unknown Medications RESULTS No Results PROCEDURES No Known procedures IMMUNIZATIONS No Known Immunizations MEDICAL (GENERAL) HISTORY Type Description Date Medical History Scoliosis Medical History Bipolar Surgical History right hip replacement Surgical History c-sections x4 Hospitalization History Pneumonia 2011
--- OUTSIDE RECORDS SUMMARY | 2017-09-28 09:53 | XMS REPORT ---
Author Author GABRIELA DOBSON [facility] Address [address] [place] [address] Care Team Providers Care Construction Services Technician Name Role Phone GABRIELA DOBSON Unavailable PROBLEMS Type Condition ICD9-CM Code [id number] Code Onset Dates Condition Status SNOMED Code Problem Major depressive disorder, recurrent episode, moderate F33.1 Active 454123019 Problem Tobacco use Z72.0 Active 931013663 Problem Insomnia G47.00 Active 469523003 Problem Fibromyalgia M79.7 Active 519522852 Problem Low back pain M54.5 Active 139777978 Problem Generalized anxiety disorder F41.1 Active 59914410 Problem Other chronic pain G89.29 Active 16182604 Problem Lumbago with sciatica, right side M54.41 Active 714022935 Problem Type 2 diabetes mellitus with hyperglycemia, without long-term current use of insulin E11.65 Active 23400045 Problem Panic attacks F41.0 Active 673658738 Problem Mixed hyperlipidemia E78.2 Active 693498901 Problem 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 Active 91347727 ALLERGIES Substance Reaction Event Type Date Status Sulfamethoxazole-Trimethoprim Unknown Drug Allergy March, Active Codeine Sulfate Unknown Drug Allergy March, Active SOCIAL HISTORY Never Assessed PLAN OF CARE VITAL SIGNS Height 61 in 2017-04-04 Weight 166 lbs 2017-04-04 Temperature 97.8 degrees Fahrenheit 2017-04-04 Heart Rate 96 bpm 2017-04-04 Respiratory Rate 20 2017-04-04 BMI 31.36 kg/m2 2017-04-04 Blood pressure systolic 142 mmHg 2017-04-04 Blood pressure diastolic 90 mmHg 2017-04-04 MEDICATIONS Medication Instructions Dosage Frequency Start Date End Date Duration Status Metformin HCl 500 mg Orally twice a day with breakfast and supper 1 tablet Active Rosuvastatin Calcium 20 mg Orally Once a day 1 tablet 24h March, 30 day(s) Active Blood Glucose Monitor System w/Device ICD10- E11.65 2 times a day -3 times weekly. as directed Jan, Active Blood Glucose Test - and Lancets ICD10- E11.65 2 times a day- 3 times weekly as directed Jan, Active Neurontin 300 MG Orally Three times a day 1 capsule 8h March, 30 day(s) Active Cyclobenzaprine HCl 10 mg Orally Three times a day 1 tablet as needed 8h March, May, 30 days Active RESULTS Name Result Date Reference Range UA LONG DIP (IN HOUSE) 2017-04-04 Lot # [id number] Exp date 2018-03-04 Clarity clear Color yellow Odor none GLU negative JERSON negative KET negative SG >=1.030 BLO trace-intact pH 6.0 Protein negative URO 0.2 NIT negative KAI negative Lot # [id number] Exp date 2017-12 PROCEDURES Procedure Date Ordered Result Body Site [facility] VISIT ESTABLISHED PATIENT April 04, 2017 URINALYSIS, AUTO, W/O SCOPE April 04, 2017 IMMUNIZATIONS No Known Immunizations MEDICAL (GENERAL) HISTORY Type Description Date Medical History Scoliosis Medical History Bipolar Surgical History right hip replacement Surgical History c-sections x4 Hospitalization History Pneumonia 2011
--- OUTSIDE RECORDS SUMMARY | 2017-09-28 09:53 | XMS REPORT ---
Author Author FAWAD BERNABE [facility] Address [address] [place] [address] Care Team Providers Care Acoustical Logging Engineer Name Role Phone FAWAD BERNABE Unavailable PROBLEMS Type Condition ICD9-CM Code [id number] Code Onset Dates Condition Status SNOMED Code Problem Major depressive disorder, recurrent episode, moderate F33.1 Active 882225572 Problem Tobacco use Z72.0 Active 584688639 Problem Insomnia G47.00 Active 514532818 Problem Fibromyalgia M79.7 Active 947724275 Problem Low back pain M54.5 Active 067504318 Problem Generalized anxiety disorder F41.1 Active 43045628 Problem Other chronic pain G89.29 Active 92240549 Problem Lumbago with sciatica, right side M54.41 Active 960660855 Problem Type 2 diabetes mellitus with hyperglycemia, without long-term current use of insulin E11.65 Active 97870033 Problem Panic attacks F41.0 Active 041586751 Problem Mixed hyperlipidemia E78.2 Active 438190702 Problem 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 Active 37297115 ALLERGIES No Information SOCIAL HISTORY Never Assessed PLAN OF CARE Activity Details Follow Up 3 Weeks Reason:F/U PT VITAL SIGNS MEDICATIONS Unknown Medications RESULTS No Results PROCEDURES Procedure Date Ordered Result Body Site THERAPEUTIC EXERCISES March 19, 2017 IMMUNIZATIONS No Known Immunizations MEDICAL (GENERAL) HISTORY Type Description Date Medical History Scoliosis Medical History Bipolar Surgical History right hip replacement Surgical History c-sections x4 Hospitalization History Pneumonia 2011
--- OUTSIDE RECORDS SUMMARY | 2017-09-28 09:53 | XMS REPORT ---
Author Author GABRIELA DOBSON [facility] Address [address] [place] [address] Care Team Providers Care Driver Engineer Name Role Phone GABRIELA DOBSON Unavailable PROBLEMS Type Condition ICD9-CM Code [id number] Code Onset Dates Condition Status SNOMED Code Problem Major depressive disorder, recurrent episode, moderate F33.1 Active 464842304 Problem Tobacco use Z72.0 Active 759868600 Problem Insomnia G47.00 Active 915255426 Problem Fibromyalgia M79.7 Active 161698395 Problem Low back pain M54.5 Active 946751232 Problem Generalized anxiety disorder F41.1 Active 37725928 Problem Other chronic pain G89.29 Active 35223203 Problem Lumbago with sciatica, right side M54.41 Active 423647459 Problem Type 2 diabetes mellitus with hyperglycemia, without long-term current use of insulin E11.65 Active 85333463 Problem Panic attacks F41.0 Active 787833077 Problem Mixed hyperlipidemia E78.2 Active 447942399 Problem 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 Active 83470143 ALLERGIES Substance Reaction Event Type Date Status Sulfamethoxazole-Trimethoprim Unknown Drug Allergy Apr, Active Codeine Sulfate Unknown Drug Allergy Apr, Active SOCIAL HISTORY Never Assessed PLAN OF CARE VITAL SIGNS MEDICATIONS Unknown Medications RESULTS No Results PROCEDURES Procedure Date Ordered Result Body Site TORADOL (IM) 60 MG/2ML (UP TO 15 MG) April 05, 2017 THER/PROPH/DIAG INJ, SC/IM April 05, 2017 IMMUNIZATIONS Vaccine Route Administration Date Status TORADOL (IM) 60 MG/2ML (UP TO 15 MG) IM Intramuscular April 05, 2017 Administered MEDICAL (GENERAL) HISTORY Type Description Date Medical History Scoliosis Medical History Bipolar Surgical History right hip replacement Surgical History c-sections x4 Hospitalization History Pneumonia 2011
--- OUTSIDE RECORDS SUMMARY | 2017-09-28 09:53 | XMS REPORT ---
Author Author ROMY PULIDO Organization [facility] Address [address] [place] [address] Care Team Providers Care Sales And Service Consultant Name Role Phone ROMY PULIDO Unavailable PROBLEMS Type Condition ICD9-CM Code [id number] Code Onset Dates Condition Status SNOMED Code Problem Major depressive disorder, recurrent episode, moderate F33.1 Active 761871690 Problem Tobacco use Z72.0 Active 148065309 Problem Insomnia G47.00 Active 107652505 Problem Fibromyalgia M79.7 Active 410517505 Problem Low back pain M54.5 Active 494049459 Problem Generalized anxiety disorder F41.1 Active 13419143 Problem Other chronic pain G89.29 Active 14620262 Problem Lumbago with sciatica, right side M54.41 Active 196870577 Problem Type 2 diabetes mellitus with hyperglycemia, without long-term current use of insulin E11.65 Active 12273003 Problem Panic attacks F41.0 Active 414234744 Problem Mixed hyperlipidemia E78.2 Active 692395520 Problem 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 Active 27106687 ALLERGIES No Information SOCIAL HISTORY Never Assessed PLAN OF CARE VITAL SIGNS MEDICATIONS Unknown Medications RESULTS Name Result Date Reference Range LIPID PANEL 2017-01-26 Cholesterol, Total 233 100-199 Triglycerides 183 0-149 HDL Cholesterol 39 >39 VLDL Cholesterol Prashanth 37 5-40 LDL Cholesterol Calc 157 0-99 HEPATITIS PROFILE 2017-01-26 Hep A Ab, IgM Negative Negative HBsAg Screen Negative Negative Hep B Core Ab, IgM Negative Negative Hep C Virus Ab 0.2 0.0-0.9 MICROALBUMIN, URINE (IN HOUSE) 2017-01-26 MICROALBUMIN Normal Lot # [id number] Exp date 01/2018 Clarity Slightly Cloudy Color Dark Yellow ALB 30 CRE 300 A:C (IN HOUSE) <30 Control Normal Control Abnormal Lot # [id number] Exp date 06/2017 PROCEDURES Procedure Date Ordered Result Body Site LAB NOT BILLED BY [facility] January 26, 2017 MICROALBUMIN, SEMIQUANT January 26, 2017 VENIPUNCT, ROUTINE* January 26, 2017 IMMUNIZATIONS No Known Immunizations MEDICAL (GENERAL) HISTORY Type Description Date Medical History Scoliosis Medical History Bipolar Surgical History right hip replacement Surgical History c-sections x4 Hospitalization History Pneumonia 2012
--- OUTSIDE RECORDS SUMMARY | 2017-09-28 09:53 | XMS REPORT ---
Author Author ROMY PULIDO [facility] Address [address] [place] [address] Care Team Providers Care Cyber Defense Analyst Name Role Phone ROMY PULIDO Unavailable PROBLEMS Type Condition ICD9-CM Code [id number] Code Onset Dates Condition Status SNOMED Code Problem Major depressive disorder, recurrent episode, moderate F33.1 Active 416795158 Problem Tobacco use Z72.0 Active 163039731 Problem Insomnia G47.00 Active 475680595 Problem Fibromyalgia M79.7 Active 455056240 Problem Low back pain M54.5 Active 120005516 Problem Generalized anxiety disorder F41.1 Active 70180675 Problem Other chronic pain G89.29 Active 87369291 Problem Lumbago with sciatica, right side M54.41 Active 088517644 Problem Type 2 diabetes mellitus with hyperglycemia, without long-term current use of insulin E11.65 Active 60004307 Problem Panic attacks F41.0 Active 100923028 Problem Mixed hyperlipidemia E78.2 Active 042684585 Problem 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 Active 43145804 ALLERGIES Substance Reaction Event Type Date Status Sulfamethoxazole-Trimethoprim Unknown Drug Allergy Dec, Active Codeine Sulfate Unknown Drug Allergy Dec, Active SOCIAL HISTORY Never Assessed PLAN OF CARE Activity Details Follow Up 4W Reason:DMII VITAL SIGNS Height 61 in 2016-12-27 Weight 167.9 lbs 2016-12-27 Temperature 98.1 degrees Fahrenheit 2016-12-27 Heart Rate 84 bpm 2016-12-27 Respiratory Rate 18 2016-12-27 BMI 31.72 kg/m2 2016-12-27 Blood pressure systolic 120 mmHg 2016-12-27 Blood pressure diastolic 84 mmHg 2016-12-27 MEDICATIONS Medication Instructions Dosage Frequency Start Date End Date Duration Status Metformin HCl 500 MG Orally Once a day 1 tablet with evening meal 24h Dec, 30 day(s) Active Chantix 1 MG Orally as directed 1/2 tablet orally x 3 days then 1/2 tablet BID x3 days then 1mg BID thereafter Dec, Active Chantix Starting Month Miguelangel 0.5 MG X 11 & 1 MG X 42 as directed Dec, Active HydrOXYzine HCl 25 MG Orally every 8 hrs for anxiety 1 tablet as needed Dec, 30 day(s) Active RESULTS Name Result Date Reference Range A1C (IN HOUSE) 2016-12-27 A1C IN HOUSE 7.0 4.3 - 5.6 % Previous A1c N/A Lot [id number] Exp date 09/2018 PROCEDURES Procedure Date Ordered Result Body Site GLYCATED HEMOGLOBIN TEST Dec 27, 2016 [facility] VISIT ESTABLISHED PATIENT Dec 27, 2016 IMMUNIZATIONS No Known Immunizations MEDICAL (GENERAL) HISTORY Type Description Date Medical History Scoliosis Medical History Bipolar Surgical History right hip replacement Surgical History c-sections x4 Hospitalization History Pneumonia 2012
[2017-09-28] MEDS ORDERED: ROSU10TA PO (10:09)
--- NOTE | 2017-09-28 10:13 | ED General ---
General Chief Complaint: Chest Wall/Rib Pain Stated Complaint: CHEST WALL PAIN Nursing Triage Note: ARRIVED VIA AMB TO ROOM 03 WITH COMPLAINTS OF LEFT SIDED BREAST PAIN AND SWELLING IN HER LEFT BREAST X 1-2 WEEKS. STATES FRIEND HAD SAME SX AND WAS DX WITH BREAST CA. Nursing Sepsis Screen: No Definite Risk Allergies and Home Medications Allergies Coded Allergies: Sulfa (Sulfonamide Antibiotics) (Verified Allergy, Unknown, 04/18/06) hydrocodone (Verified Adverse Reaction, Unknown, SICK TO STOMACH, 02/02/14) Home Medications Metformin HCl 500 Mg Tab.er.24h, 500 MG PO DAILY, #30 (Reported) Rosuvastatin Calcium 10 Mg Tablet, 10 MG PO, (Reported) Past Exgqvrh-Sphsar-Qzlvap Hx Patient Social History Alcohol Use: Denies Use Recreational Drug Use: No Smoking Status: Current Everyday Smoker Type Used: Cigarettes 2nd Hand Smoke Exposure: Yes Recent Foreign Travel: No Contact w/Someone Who Travel: No Recent Infectious Disease Expo: No Recent Hopitalizations: No Immunizations Up To Date Tetanus Booster (TDap): Unknown Seasonal Allergies Seasonal Allergies: No Surgeries History of Surgeries: Yes (hysterectomy (partial) joint replacement on her right hip) Surgeries: Section, 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, Joint Replacement, Orthopedic Respiratory History of Respiratory Disorde: Yes Respiratory Disorders: COPD, Emphysema Cardiovascular History of Cardiac Disorders: Yes Cardiac Disorders: Hypertension, Palpitations Neurological History of Neurological Disord: Yes (RESTLESS LEG SYNDROME) 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 System Hx 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 Disorders: No Sexually Transmitted Disease: No 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 GLOVE 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 History: 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 Gastrointestinal History of Gastrointestinal Di: No Musculoskeletal History of Musculoskeletal Dis: Yes (RESTLESS LEG SYNDROME; RIGHT HIP FX/ REPLACEMENT) Musculoskeletal Disorders: Arthritis, Scoliosis, Chronic Back Pain, Fractures Endocrine History of Endocrine Disorders: Yes Endocrine Disorders: Diabetes, Non-Insulin dep Cancer History of Cancer: No Psychosocial History of Psychiatric Problem: Yes Behavioral Health Disorders: Sleep Difficulties, Anxiety, Bipolar, Depression Integumentary History of Skin or Integumenta: No Blood Transfusions History of Blood Disorders: No Adverse Reaction to a Blood Tr: No Family Medical History Significant Family History: Psychiatric Problems Physical Exam Vital Signs Vital Sign - Last 12Hours 09/28/17 09:50 Temp 98.0 Pulse 70 Resp 18 B/P (MAP) 128/83 Pulse Ox 98 Capillary Refill : Less Than 3 Seconds Progress/Results/Core Measures Suspected Sepsis Recent Fever Within 48 Hours: No Infection Criteria Present: None New/Unexplained Altered Menta: No Sepsis Screen: No Definite Risk Sepsis Diagnosis: SIRS Temperature:98.0 Pulse: 70 Respiratory Rate: 18 Blood Pressure 128 /83 Mean: 98 Results/Orders Vital Signs/I&O Vital Sign - Last 12Hours 09/28/17 09:50 Temp 98.0 Pulse 70 Resp 18 B/P (MAP) 128/83 Pulse Ox 98 Capillary Refill : Less Than 3 Seconds Blood Pressure Mean: 98 Departure Impression Impression: Primary Impression: Breast pain, left Disposition: 01 HOME, SELF-CARE Condition: Stable Departure-Patient Inst. Referrals: ROMY PULIDO MD (PCP/Family) Primary Care Physician Patient Instructions: Common Breast Problems Add. Discharge Instructions: TYLENOL AND MOTRIN NEEDED FOR PAIN FOLLOW UP WITH YOUR DR NEXT WEEK FOR FURTHER CARE AND TO ARRANGE FOR ROUTINE MAMMOGRAM All discharge instructions reviewed with patient and/or family. Voiced understanding. KADIE LAUGHLIN DO Sep 28, 2017 10:13
[2017-09-28 10:30] VITALS: BP 128/83
== END 2017-09-28 10:30 | disposition home or self-care (01) ==
LOC: EDUNIT# 09:46 → ER 09:48
DX: N64.4 Mastodynia (principal); J43.9 Emphysema, unspecified; I10 Essential (primary) hypertension; M41.9 Scoliosis, unspecified; E11.9 Type 2 diabetes mellitus without complications; F41.9 Anxiety disorder, unspecified; F31.9 Bipolar disorder, unspecified; F17.210 Nicotine dependence, cigarettes, uncomplicated; Z79.84 Long term (current) use of oral hypoglycemic drugs; Z87.59 Personal history of other complications of pregnancy, childbirth and the puerperium; Z90.711 Acquired absence of uterus with remaining cervical stump; Z96.641 Presence of right artificial hip joint
CPT/HCPCS: 99283

== ENCOUNTER → 2017-10-03 | Outpatient (CLI) | payer MEDICARE, MEDICAID ==
[~2017-10-03] MED LIST changes: +ROSU10TA PO
== END ==
LOC: RAD 10:39
PROVIDERS: ATTEND Family Medicine
DX: Z12.31 Encounter for screening mammogram for malignant neoplasm of breast (principal)

== ENCOUNTER → 2017-10-12 | Outpatient (CLI) | payer MEDICARE, MEDICAID ==
--- NOTE | 2017-10-12 11:29 | Diagnostic Imaging Report ---
PROCEDURE: MR imaging cervical spine without contrast. TECHNIQUE: Multiplanar, multisequence MR imaging of the cervical spine was performed without contrast. INDICATION: Neck and left arm pain. FINDINGS: The alignment of the posterior spinal line is satisfactory. The vertebral body heights are preserved. There is disc desiccation at multiple levels. No significant disc height loss seen at any level. The spinal cord has normal caliber, contour and signal. The marrow signal is generally homogeneous with suggestion of a small hemangioma in the C6 vertebral body, about 7 mm in size. The foramen magnum and upper cervical canal are widely patent. C2/C3: No disc herniation. No spinal canal or foraminal stenosis. C3/4: There is a disc spur complex associated with mild spinal canal stenosis reducing the central canal AP measurement to 8.8 mm with no cord compression. The foramina are patent. C4/5: There is a spur disc complex associated with mild canal stenosis reducing the AP dimension of the canal to 9.6 mm. No cord compression. No foraminal stenosis. C5/6: There is a disc spur complex asymmetric to the right side and associated with mild to moderate spinal canal stenosis more prominent in the right side of the spinal canal and reducing the AP dimension of the canal to 8 mm. No cord compression. The foramina demonstrate moderate stenosis on the right and no stenosis on the left. C6/7: There is a mild spur disc complex with no spinal canal or foraminal stenosis. C7/T1: There is no disc herniation, spinal canal or foraminal stenosis. IMPRESSION: There is multilevel disc herniations most prominent at C5/6 level, asymmetric to the right and resulting in mild to moderate canal stenosis. No cord compression. Dictated by: Dictated on workstation # [id number]
--- NOTE | 2017-10-12 18:25 | Diagnostic Imaging Report ---
EXAMINATION: Left breast ultrasound. INDICATION: Left breast pain. FINDINGS: The area of pain around the periareolar region is scanned with no underlying significant abnormality seen. Minimal duct ectasia is seen in the retroareolar region. No solid mass. IMPRESSION: No significant abnormality or suspicious mass is seen. Clinical followup for patient's complaints is recommended. ACR BI-RADS Category 2: Benign findings. Dictated by: Dictated on workstation # [id number]
--- NOTE | 2017-10-16 14:38 | RADIOLOGY REPORT ---
NAME: LYNETTE MARIE [facility] REC#: [id number] PT STATUS: REGISTERED : 1965 PHYSICIAN: ROMY PULIDO MD ADMIT DATE: 10/12/17/RAD CORRECTED Signed Date of Exam:10/12/17 MAMMO BILAT DIAGNOSTIC Bilateral screening mammogram 2D views with tomosynthesis The current study was also evaluated with a Computer Aided Detection (CAD) system. INDICATION: Screening. No current complaints stated on the questionnaire. COMPARISON: 06/07/2016. FINDINGS: The breasts are composed of heterogeneously dense parenchyma which may decrease mammographic sensitivity. There is no mass, architectural distortion, or suspicious cluster of calcifications seen. IMPRESSION: No mammographic evidence of malignancy. Ultrasound evaluation of the area of pain is pending. ACR BI-RADS Category 0: Incomplete. (Needs additional imaging evaluation). Result letter will be mailed to the patient. Note: At least 10% of breast cancer is not imaged by mammography. Dictated by: Dictated on workstation # [id number] Dict: 10/12/17 1044 Trans: 10/15/17818 [id number] Interpreted by: ZAID ZAIDI MD Electronically signed by: ZAID ZAIDI MD 10/15/17818 [facility]
== END ==
LOC: RAD 09:38
PROVIDERS: ATTEND Family Medicine
DX: M48.02 Spinal stenosis, cervical region (principal); M50.122 Cervical disc disorder at C5-C6 level with radiculopathy; N64.4 Mastodynia
CPT/HCPCS: 72141; 76642

== ENCOUNTER 2017-10-19 16:31 | Emergency (ER) | payer MEDICARE, MEDICAID ==
[~2017-10-19] VITALS: Ht 152.4 cm; Wt 77.6 kg
--- NOTE | 2017-10-19 16:38 | ED Chest Pain ---
General Chief Complaint: Chest Pain Stated Complaint: CHEST PAIN Source: patient Exam Limitations: no limitations History of Present Illness Time seen by provider: 16:37 Initial Comments To ER with tight left-sided chest pain intermittently for a month. Believes this is related to panic attacks and anxiety. Arrives by EMS Timing/Duration: intermittent Severity/Quality: moderate Radiation: no radiation Activities at Onset: none Allergies and Home Medications Allergies Coded Allergies: Sulfa (Sulfonamide Antibiotics) (Verified Allergy, Unknown, 04/18/06) hydrocodone (Verified Adverse Reaction, Unknown, SICK TO STOMACH, 02/02/14) Home Medications Metformin HCl 500 Mg Tab.er.24h, 500 MG PO DAILY, #30 (Reported) Rosuvastatin Calcium 10 Mg Tablet, 10 MG PO, (Reported) Review of Systems Constitutional: see HPI EENTM: No Symptoms Reported Respiratory: No Symptoms Reported Cardiovascular: See HPI, Chest Pain Gastrointestinal: See HPI 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: No Symptoms Reported Musculoskeletal: no symptoms reported Skin: no symptoms reported Psychiatric/Neurological: No Symptoms Reported Endocrine: No Symptoms Reported Past Yjrfhgm-Ekxptf-Nudzes Hx Patient Social History Type Used: Cigarettes 2nd Hand Smoke Exposure: Yes Recent Hopitalizations: No Immunizations Up To Date Tetanus Booster (TDap): Unknown Seasonal Allergies Seasonal Allergies: No Surgeries History of Surgeries: Yes (hysterectomy (partial) joint replacement on her right hip) Surgeries: Section, 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, Joint Replacement, Orthopedic Respiratory History of Respiratory Disorde: Yes Respiratory Disorders: COPD, Emphysema Cardiovascular History of Cardiac Disorders: Yes Cardiac Disorders: Hypertension, Palpitations Neurological History of Neurological Disord: Yes (RESTLESS LEG SYNDROME) 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 System Hx 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 Disorders: No Sexually Transmitted Disease: No 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 History: 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 Gastrointestinal History of Gastrointestinal Di: No Musculoskeletal History of Musculoskeletal Dis: Yes (RESTLESS LEG SYNDROME; RIGHT HIP FX/ REPLACEMENT) Musculoskeletal Disorders: Arthritis, Scoliosis, Chronic Back Pain, Fractures Endocrine History of Endocrine Disorders: Yes Endocrine Disorders: Diabetes, Non-Insulin dep Cancer History of Cancer: No Psychosocial History of Psychiatric Problem: Yes Behavioral Health Disorders: Sleep Difficulties, Anxiety, Bipolar, Depression Integumentary History of Skin or Integumenta: No Blood Transfusions History of Blood Disorders: No Adverse Reaction to a Blood Tr: No Family Medical History Significant Family History: Psychiatric Problems Physical Exam Vital Signs Vital Sign - Last 12Hours 10/19/17 16:31 Temp 98.0 Pulse 78 Resp 18 B/P (MAP) 153/63 (93) Pulse Ox 98 Capillary Refill : General Appearance: No Apparent Distress, WD/WN, Anxious HEENT: PERRL/EOMI, TMs Normal Neck: Full Range of Motion, Normal Inspection Respiratory: Normal Breath Sounds, No Accessory Muscle Use, No Respiratory Distress Cardiovascular: Regular Rate, Rhythm, Normal Peripheral Pulses Extremity: Normal Capillary Refill, Normal Inspection Neurologic/Psychiatric: Alert, Oriented x3, No Motor/Sensory Deficits Skin: Normal Color, Warm/Dry Progress/Results/Core Measures Results/Orders Lab Results Laboratory Tests Test 10/19/17 16:45 Range/Units White Blood Count 9.3 4.3-11.0 10^3/uL Red Blood Count 4.60 4.35-5.85 10^6/uL Hemoglobin 14.3 11.5-16.0 G/DL Hematocrit 41 35-52 % Mean Corpuscular Volume 90 80-99 FL Mean Corpuscular Hemoglobin 31 25-34 PG Mean Corpuscular Hemoglobin Concent 35 32-36 G/DL Red Cell Distribution Width 12.5 10.0-14.5 % Platelet Count 259 130-400 10^3/uL Mean Platelet Volume 9.2 7.4-10.4 FL Neutrophils (%) (Auto) 69 42-75 % Lymphocytes (%) (Auto) 22 12-44 % Monocytes (%) (Auto) 6 0-12 % Eosinophils (%) (Auto) 3 0-10 % Basophils (%) (Auto) 0 0-10 % Neutrophils # (Auto) 6.4 1.8-7.8 X 10^3 Lymphocytes # (Auto) 2.1 1.0-4.0 X 10^3 Monocytes # (Auto) 0.5 0.0-1.0 X 10^3 Eosinophils # (Auto) 0.3 0.0-0.3 10^3/uL Basophils # (Auto) 0.0 0.0-0.1 10^3/uL Sodium Level 138 135-145 MMOL/L Potassium Level 3.7 3.6-5.0 MMOL/L Chloride Level 105 98-107 MMOL/L Carbon Dioxide Level 23 21-32 MMOL/L Anion Gap 10 5-14 MMOL/L Blood Urea Nitrogen 14 7-18 MG/DL Creatinine 0.71 0.60-1.30 MG/DL Estimat Glomerular Filtration Rate > 60 BUN/Creatinine Ratio 20 Glucose Level 167 H 70-105 MG/DL Calcium Level 9.5 8.5-10.1 MG/DL Total Bilirubin 0.4 0.1-1.0 MG/DL Aspartate Amino Transf (AST/SGOT) 27 5-34 U/L Alanine Aminotransferase (ALT/SGPT) 58 H 0-55 U/L Alkaline Phosphatase 115 40-136 U/L Troponin I < 0.30 <0.30 NG/ML Total Protein 6.8 6.4-8.2 GM/DL Albumin 3.9 3.2-4.5 GM/DL My Orders Orders - KRISTOPHER MILLER APRN Cbc With Automated Diff (10/19/17 16:33) Troponin I (10/19/17 16:33) Chest Pa/Lat (2 View) (10/19/17 16:33) Ekg Tracing (10/19/17 16:33) Continuous Ekg Monitoring (10/19/17 16:33) Ua Culture If Indicated (10/19/17 16:33) Drug Screen Stat (Urine) (10/19/17 16:33) Comprehensive Metabolic Panel (10/19/17 16:33) Vital Signs/I&O Vital Sign - Last 12Hours 10/19/17 16:31 Temp 98.0 Pulse 78 Resp 18 B/P (MAP) 153/63 (93) Pulse Ox 98 Departure Impression Impression: Primary Impression: Chest pain Disposition: HOME, SELF-CARE Condition: Stable Departure-Patient Inst. Decision time for Depature: 17:39 Referrals: ROMY PULIDO MD (PCP/Family) Primary Care Physician Patient Instructions: Chest Pain That Is Not Caused by the Heart (DC) Add. Discharge Instructions: 1. Return to ER for any concerns 2. Follow up with her doctor next week All discharge instructions reviewed with patient and/or family. Voiced understanding. KRISTOPHER MILLER APRN Oct 19, 2017 16:38
[2017-10-19 16:55] LABS: BASOPHILS % (AUTO) 0 % (0-10); EOSINOPHILS # (AUTO) 0.3 10^3/uL (0.0-0.3); EOSINOPHILS % (AUTO) 3 % (0-10); LYMPHOCYTES # (AUTO) 2.1 X 10^3 (1.0-4.0); LYMPHOCYTES % (AUTO) 22 % (12-44); MEAN CORPUSCULAR HEMOGLOBIN 31 PG (25-34); MEAN CORPUSCULAR HGB CONC 35 G/DL (32-36); MEAN CORPUSCULAR VOLUME 90 FL (80-99); MEAN PLATELET VOLUME 9.2 FL (7.4-10.4); MONOCYTES # (AUTO) 0.5 X 10^3 (0.0-1.0); MONOCYTES % (AUTO) 6 % (0-12); NEUTROPHILS # (AUTO) 6.4 X 10^3 (1.8-7.8); NEUTROPHILS % (AUTO) 69 % (42-75); PLATELET COUNT 259 10^3/uL (130-400); RED CELL DISTRIBUTION WIDTH 12.5 % (10.0-14.5); WHITE BLOOD COUNT 9.3 10^3/uL (4.3-11.0)
[2017-10-19 17:19] LABS: ALANINE AMINOTRANSFERASE 58 U/L (0-55); ALBUMIN 3.9 GM/DL (3.2-4.5); ANION GAP 10 MMOL/L (5-14); ASPARTATE AMINO TRANSFERASE 27 U/L (5-34); BILIRUBIN,TOTAL 0.4 MG/DL (0.1-1.0); BLOOD UREA NITROGEN 14 MG/DL (7-18); BUN/CREATININE RATIO 20; CALCIUM 9.5 MG/DL (8.5-10.1); CARBON DIOXIDE 23 MMOL/L (21-32); CHLORIDE 105 MMOL/L (98-107); CREATININE SERUM 0.71 MG/DL (0.60-1.30); GFR ESTIMATED > 60; GLUCOSE 167 MG/DL (70-105); POTASSIUM 3.7 MMOL/L (3.6-5.0); SODIUM 138 MMOL/L (135-145); TOTAL PROTEIN 6.8 GM/DL (6.4-8.2)
--- NOTE | 2017-10-19 17:19 | Diagnostic Imaging Report ---
INDICATION: Chest pain. COMPARISON: 01/28/2017. FINDINGS: The lungs are clear. The heart size and vascularity are within normal limits. Rightward convexity scoliotic curvature chronic. No effusion or pneumothorax. IMPRESSION: No acute-appearing abnormality. Dictated by: Dictated on workstation # [id number]
[2017-10-19 17:25] LABS: TROPONIN I < 0.30 NG/ML (<0.30)
[2017-10-19 17:54] VITALS: BP 136/92
== END 2017-10-19 17:54 | disposition home or self-care (01) ==
LOC: EDUNIT# 16:31 → ER 16:32
DX: R07.89 Other chest pain (principal); J43.9 Emphysema, unspecified; I10 Essential (primary) hypertension; M41.9 Scoliosis, unspecified; E11.9 Type 2 diabetes mellitus without complications; F41.9 Anxiety disorder, unspecified; F31.9 Bipolar disorder, unspecified; Z79.84 Long term (current) use of oral hypoglycemic drugs; Z77.22 Contact with and (suspected) exposure to environmental tobacco smoke (acute) (chronic); Z90.711 Acquired absence of uterus with remaining cervical stump; Z96.641 Presence of right artificial hip joint; Z87.59 Personal history of other complications of pregnancy, childbirth and the puerperium
CPT/HCPCS: 36415; 71020; 80053; 84484; 85025

== ENCOUNTER → 2017-11-27 | Emergency (ER) | payer MEDICARE, MEDICAID ==
[~2017-11-27] VITALS: Ht 156.2 cm; Wt 72.6 kg
[~2017-11-27] MED LIST changes: +ANTACID SUSP 30 ML UDC (MYLANTA) PO ONE; +LIDOCAINE 2% VISCOUS 15 ML UDC PO ONE
--- NOTE | 2017-11-27 20:51 | ED Chest Pain ---
General Stated Complaint: HEARTBURN Source: patient Exam Limitations: no limitations History of Present Illness Date Seen by Provider: Nov 27, 2017 Time Seen by Provider: 20:49 Initial Comments To ER with reports to ER with reports of central chest burning sensation. She eats or drinks she feels this go all the way down her chest. However she is concerned this might be cardiac. She does have some pain associated with this. Timing/Duration: changing over time Severity/Quality: moderate Radiation: no radiation Activities at Onset: none Allergies and Home Medications Allergies Coded Allergies: Sulfa (Sulfonamide Antibiotics) (Verified Allergy, Unknown, 04/18/06) hydrocodone (Verified Adverse Reaction, Unknown, SICK TO STOMACH, 02/02/14) Home Medications Metformin HCl 500 Mg Tab.er.24h, 500 MG PO DAILY, #30 (Reported) Rosuvastatin Calcium 10 Mg Tablet, 10 MG PO, (Reported) Review of Systems Constitutional: see HPI EENTM: No Symptoms Reported Respiratory: No Symptoms Reported Cardiovascular: See HPI, Chest Pain Gastrointestinal: See HPI 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: No Symptoms Reported Musculoskeletal: no symptoms reported Skin: no symptoms reported Psychiatric/Neurological: No Symptoms Reported Endocrine: No Symptoms Reported Hematologic/Lymphatic: No Symptoms Reported Past Fibmayx-Dzwaul-Iyuzmw Hx Patient Social History Drug of Choice: BENZODIAZEPINE ABUSE Type Used: Cigarettes 2nd Hand Smoke Exposure: Yes Recent Foreign Travel: No Contact w/Someone Who Travel: No Recent Hopitalizations: No Immunizations Up To Date Tetanus Booster (TDap): Unknown Seasonal Allergies Seasonal Allergies: No Surgeries History of Surgeries: Yes Surgeries: Section, 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, Joint Replacement, Orthopedic Respiratory History of Respiratory Disorde: Yes Respiratory Disorders: COPD, Emphysema Cardiovascular History of Cardiac Disorders: Yes Cardiac Disorders: Hypertension, Palpitations Neurological History of Neurological Disord: Yes 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 System Hx 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 Disorders: No Sexually Transmitted Disease: No [employer]ATOR History: 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 History of 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 Disor: No Gastrointestinal History of Gastrointestinal Di: No Musculoskeletal History of Musculoskeletal Dis: Yes Musculoskeletal Disorders: Arthritis, Scoliosis, Chronic Back Pain, Fractures Endocrine History of Endocrine Disorders: Yes Endocrine Disorders: Diabetes, Non-Insulin dep HEENT History of HEENT Disorders: Yes (DENTURES) Cancer History of Cancer: No Psychosocial History of Psychiatric Problem: Yes Behavioral Health Disorders: Sleep Difficulties, Anxiety, Bipolar, Depression Integumentary History of Skin or Integumenta: No Blood Transfusions History of Blood Disorders: No Adverse Reaction to a Blood Tr: No Family Medical History Significant Family History: Psychiatric Problems Physical Exam Vital Signs Vital Sign - Last 12Hours 11/27/17 20:44 Temp 98.0 Pulse 88 Resp 18 B/P (MAP) 121/93 (102) Pulse Ox 96 O2 Delivery Room Air Capillary Refill : General Appearance: No Apparent Distress, WD/WN HEENT: PERRL/EOMI, TMs Normal Neck: Full Range of Motion, Normal Inspection Respiratory: No Accessory Muscle Use, No Respiratory Distress Gastrointestinal: Normal Bowel Sounds, Non Tender, Soft Extremity: Normal Capillary Refill, Normal Inspection Neurologic/Psychiatric: Alert, Oriented x3 Skin: Normal Color, Warm/Dry Progress/Results/Core Measures Results/Orders Lab Results Laboratory Tests Test 11/27/17 20:45 Range/Units White Blood Count 8.0 4.3-11.0 10^3/uL Red Blood Count 4.93 4.35-5.85 10^6/uL Hemoglobin 15.5 11.5-16.0 G/DL Hematocrit 44 35-52 % Mean Corpuscular Volume 88 80-99 FL Mean Corpuscular Hemoglobin 31 25-34 PG Mean Corpuscular Hemoglobin Concent 36 32-36 G/DL Red Cell Distribution Width 12.3 10.0-14.5 % Platelet Count 262 130-400 10^3/uL Mean Platelet Volume 9.4 7.4-10.4 FL Neutrophils (%) (Auto) 59 42-75 % Lymphocytes (%) (Auto) 28 12-44 % Monocytes (%) (Auto) 8 0-12 % Eosinophils (%) (Auto) 5 0-10 % Basophils (%) (Auto) 1 0-10 % Neutrophils # (Auto) 4.7 1.8-7.8 X 10^3 Lymphocytes # (Auto) 2.2 1.0-4.0 X 10^3 Monocytes # (Auto) 0.7 0.0-1.0 X 10^3 Eosinophils # (Auto) 0.4 H 0.0-0.3 10^3/uL Basophils # (Auto) 0.0 0.0-0.1 10^3/uL Sodium Level 142 135-145 MMOL/L Potassium Level 4.1 3.6-5.0 MMOL/L Chloride Level 105 98-107 MMOL/L Carbon Dioxide Level 24 21-32 MMOL/L Anion Gap 13 5-14 MMOL/L Blood Urea Nitrogen 16 7-18 MG/DL Creatinine 0.77 0.60-1.30 MG/DL Estimat Glomerular Filtration Rate > 60 BUN/Creatinine Ratio 21 Glucose Level 108 H 70-105 MG/DL Calcium Level 9.7 8.5-10.1 MG/DL Total Bilirubin 0.6 0.1-1.0 MG/DL Aspartate Amino Transf (AST/SGOT) 38 H 5-34 U/L Alanine Aminotransferase (ALT/SGPT) 82 H 0-55 U/L Alkaline Phosphatase 128 40-136 U/L Troponin I < 0.30 <0.30 NG/ML Total Protein 7.6 6.4-8.2 GM/DL Albumin 4.5 3.2-4.5 GM/DL My Orders Orders - KRISTOPHER MILLER APRN Cbc With Automated Diff (11/27/17 20:39) Troponin I (11/27/17 20:39) Comprehensive Metabolic Panel (11/27/17 20:39) Ekg Tracing (11/27/17 20:39) Chest Pa/Lat (2 View) (11/27/17 20:39) Antacid Suspension (Mylanta Suspension (11/27/17 20:45) Lidocaine 2% Viscous 15 Ml (Xylocaine Vi (11/27/17 20:45) Medications Given in ED Current Medications Medications Dose Ordered Sig/George Route Start Time Stop Time Status Last Admin Dose Admin Al Hydrox/Mg Hydrox/Simethicone 30 ml ONCE ONCE PO 11/27/17 20:45 11/27/17 20:46 DC 11/27/17 20:55 30 ML Lidocaine HCl 15 ml ONCE ONCE PO 11/27/17 20:45 11/27/17 20:46 DC 11/27/17 20:54 15 ML Vital Signs/I&O Vital Sign - Last 12Hours 11/27/17 20:44 Temp 98.0 Pulse 88 Resp 18 B/P (MAP) 121/93 (102) Pulse Ox 96 O2 Delivery Room Air Departure Impression Impression: Primary Impression: Chest pain Additional Impression: GERD (gastroesophageal reflux disease) Disposition: 01 HOME, SELF-CARE Condition: Stable Departure-Patient Inst. Decision time for Depature: 20:51 Referrals: ROMY PULIDO MD (PCP/Family) Primary Care Physician Patient Instructions: Chest Pain (DC) Add. Discharge Instructions: 1. Make an appointment with your family physician tomorrow to be further evaluated KRISTOPHER MILLER APRN Nov 27, 2017 20:51
[2017-11-27 21:06] LABS: BASOPHILS % (AUTO) 1 % (0-10); EOSINOPHILS # (AUTO) 0.4 10^3/uL (0.0-0.3); EOSINOPHILS % (AUTO) 5 % (0-10); HEMATOCRIT 44 % (35-52); HEMOGLOBIN 15.5 G/DL (11.5-16.0); LYMPHOCYTES # (AUTO) 2.2 X 10^3 (1.0-4.0); LYMPHOCYTES % (AUTO) 28 % (12-44); MEAN CORPUSCULAR HEMOGLOBIN 31 PG (25-34); MEAN CORPUSCULAR HGB CONC 36 G/DL (32-36); MEAN CORPUSCULAR VOLUME 88 FL (80-99); MEAN PLATELET VOLUME 9.4 FL (7.4-10.4); MONOCYTES # (AUTO) 0.7 X 10^3 (0.0-1.0); MONOCYTES % (AUTO) 8 % (0-12); NEUTROPHILS # (AUTO) 4.7 X 10^3 (1.8-7.8); NEUTROPHILS % (AUTO) 59 % (42-75); PLATELET COUNT 262 10^3/uL (130-400); RED BLOOD COUNT 4.93 10^6/uL (4.35-5.85); RED CELL DISTRIBUTION WIDTH 12.3 % (10.0-14.5)
[2017-11-27 21:17] LABS: ALANINE AMINOTRANSFERASE 82 U/L (0-55); ALBUMIN 4.5 GM/DL (3.2-4.5); ALKALINE PHOSPHATASE 128 U/L (40-136); BILIRUBIN,TOTAL 0.6 MG/DL (0.1-1.0); BUN/CREATININE RATIO 21; CALCIUM 9.7 MG/DL (8.5-10.1); CARBON DIOXIDE 24 MMOL/L (21-32); CHLORIDE 105 MMOL/L (98-107); CREATININE SERUM 0.77 MG/DL (0.60-1.30); GFR ESTIMATED > 60; GLUCOSE 108 MG/DL (70-105); POTASSIUM 4.1 MMOL/L (3.6-5.0); SODIUM 142 MMOL/L (135-145); TOTAL PROTEIN 7.6 GM/DL (6.4-8.2)
--- NOTE | 2017-11-27 21:23 | Diagnostic Imaging Report ---
CHEST PA/LAT (2 VIEW) Indication: Chest pain Comparison: 10/19/2017 Findings: No focal pneumonic consolidation, pleural effusion or pneumothorax. Normal heart size and pulmonary vasculature. Impression: No acute cardiopulmonary process. Dictated by: Dictated on workstation # [id number]
[2017-11-27 21:35] VITALS: BP 121/93
== END ==
LOC: EDUNIT# 20:32 → ER 20:33
DX: K21.9 Gastro-esophageal reflux disease without esophagitis (principal); F41.9 Anxiety disorder, unspecified; F31.9 Bipolar disorder, unspecified; I10 Essential (primary) hypertension; E11.9 Type 2 diabetes mellitus without complications; J43.9 Emphysema, unspecified; F13.10 Sedative, hypnotic or anxiolytic abuse, uncomplicated; Z77.22 Contact with and (suspected) exposure to environmental tobacco smoke (acute) (chronic); Z87.59 Personal history of other complications of pregnancy, childbirth and the puerperium; Z87.81 Personal history of (healed) traumatic fracture; Z90.710 Acquired absence of both cervix and uterus; Z79.84 Long term (current) use of oral hypoglycemic drugs
CPT/HCPCS: 36415; 71046; 80053; 84484; 85025; 93005

== ENCOUNTER 2017-12-09 22:20 | Emergency (ER) | payer MEDICARE, MEDICAID ==
[~2017-12-09] VITALS: Ht 157.5 cm; Wt 77.1 kg
[~2017-12-09 22:20] MED LIST changes: -ANTACID SUSP 30 ML UDC (MYLANTA) PO ONE; -LIDOCAINE 2% VISCOUS 15 ML UDC PO ONE
--- OUTSIDE RECORDS SUMMARY | 2017-12-09 22:40 | XMS REPORT | Continuity of Care Document ---
Author Author [facility] Address Unknown Phone Unavailable Allergies Active Description Code Type Severity Reaction Onset Reported/Identified Relationship to Patient Clinical Status Yes Sulfa (Sulfonamide Antibiotics) [id number] Drug Allergy Unknown N/A 2005 Yes sulfa drug Drug Allergy 03/18/2009 Yes codeine Drug Allergy N/A N/A 06/21/2010 Yes codeine Drug Allergy 06/21/2010 Yes naproxen Drug Allergy N/A N/A 07/28/2010 Yes naproxen Drug Allergy 07/28/2010 Yes Darvocet-N 100 Drug Allergy N /A N/A 08/23/2010 Yes Darvocet-N 100 Drug Allergy 08/23/2010 Yes Percocet 5/325 Drug Allergy 08/23/2010 Yes tramadol Drug Allergy N/A N/A 12/20/2010 Yes tramadol Drug Allergy 12/20/2010 Yes hydrocodone [id number] Drug Allergy Unknown SICK TO STOMACH 02/02/2014 Medications There is no data. 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 02/08/2009 NORMA DOYOEL F 311 Mo Depress Nos 02/08/2009 DENZEL CHILEL MD 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 02/08/2009 DENZEL CHILEL MD 300.00 An Anxiety Unspec 02/08/2009 DENZEL CHILEL MD 301.83 Pd Borderline 02/08/2009 DENZEL CHILEL MD 304.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 02/08/2009 DENZEL CHILEL MD 311 Mo Depress Nos 02/08/2009 WERDER DO, YOEL F 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 02/08/2009 WERDER DO, YOEL F 300.00 An Anxiety Unspec 02/08/2009 DANDYDER DO, YOEL F 301.83 Pd Borderline 02/08/2009 WERDER DO, YOEL F 304.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 02/08/2009 YOEL GREEN DO F 311 Mo Depress Nos 02/08/2009 298.9 [...] Mo Depress Nos 02/08/2009 YOEL GREEN DO F 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 02/08/2009 NORMA YOEL [...] MD 304.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 02/08/2009 DENZEL CHIELL MD 311 Mo Depress Nos 02/08/2009 DENZEL [...] ADAMS, DENZEL 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 02/08/2009 DENZEL CHILEL MD 300.00 An Anxiety Unspec 02/08/2009 GETACHEW ADAMS, DENZEL 301.83 Pd Borderline 02/08/2009 GETACHEW ADAMS, DENZEL 304.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 02/08/2009 GETACHEW ADAMS, DENZEL 311 Mo Depress Nos 02/08/2009 DENZEL CHILEL MD 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 02/08/2009 DENZEL CHILEL MD 300.00 An Anxiety Unspec 02/08/2009 GETACHEW ADAMS, DENZEL 301.83 Pd Borderline 02/08/2009 GETACHEW ADAMS, DENZEL 304.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 02/08/2009 GETACHEW ADAMS, DENZEL 311 Mo Depress Nos 02/08/2009 DENZEL CHILEL [...] Heart Disease 08/05/2009 YOEL GREEN DO V72.31 Hog Cutter Exam, Routine 08/05/2009 YOEL GREEN DO V72.31 Hog Cutter Exam, Routine 08/05/2009 DENZEL CHILEL MD V72.31 Hog Cutter Exam, Routine 08/05/2009 YOEL GREEN DO V72.31 Hog Cutter Exam, Routine 08/05/2009 DENZEL CHILEL MD V72.31 Hog Cutter Exam, Routine 08/05/2009 YOEL GREEN DO V72.31 Hog Cutter Exam, Routine 08/05/2009 V72.31 Hog Cutter Exam, Routine 08/05/2009 V72.31 Hog Cutter Exam, Routine 08/05/2009 V72.31 Hog Cutter Exam, Routine 08/05/2009 V72.31 Hog Cutter Exam, Routine 08/05/2009 YOEL GREEN DO V72.31 Hog Cutter Exam, Routine 08/05/2009 GETACHEW ADAMS, DENZEL V72.31 Hog Cutter Exam, Routine 08/05/2009 GETACHEW ADAMS, DENZEL V72.31 Hog Cutter Exam, Routine 08/05/2009 GETACHEW ADAMS, DENZEL V72.31 Hog Cutter Exam, Routine 08/05/2009 GETACHEW ADAMS, DENZEL V72.31 Hog Cutter Exam, Routine 08/05/2009 GETACHEW ADAMS, DENZEL V72.31 Hog Cutter Exam, Routine 08/05/2009 GETACHEW ADAMS, DENZEL V72.31 Hog Cutter Exam, Routine 08/05/2009 GETACHEW ADAMS, DENZEL V72.31 Hog Cutter Exam, Routine 12/02/2009 YOEL GREEN DO 305.1 [...] Dizziness And Giddiness 12/02/2009 YOEL GREEN DO F 305.1 Nicotine Dependence 12/02/2009 YOEL GREEN DO [...] DENZEL CHILEL MD 305.1 Nicotine Dependence 12/02/2009 GETACHEW ADAMS, DENZEL 780.4 Dizziness And Giddiness 12/02/2009 GETACHEW ADAMS, DENZEL 305.1 Nicotine Dependence 12/02/2009 DENZEL CHILEL MD 780.4 Dizziness And Giddiness 12/02/2009 DENZEL CHILEL MD 305.1 Nicotine Dependence 12/02/2009 DENZEL CHILEL MD 780.4 Dizziness And Giddiness 12/02/2009 GETACHEW ADAMS, DENZEL 305.1 Nicotine Dependence 12/02/2009 GETACHEW ADAMS, DENZEL 780.4 Dizziness And Giddiness 12/02/2009 GETACHEW ADAMS, DENZEL 305.1 Nicotine Dependence 12/02/2009 DENZEL CHILEL MD 780.4 Dizziness And Giddiness 12/02/2009 DENZEL CHILEL MD 305.1 Nicotine Dependence 12/02/2009 DENZEL CHILEL MD 780.4 Dizziness And Giddiness 12/02/2009 DENZEL CHILEL MD 305.1 Nicotine Dependence 12/02/2009 GETACHEW ADAMS, DENZEL 780.4 Dizziness And Giddiness 12/30/2009 YOEL GREEN [...] Region And Thigh 12/30/2009 719.45 Pain In Joint , Pelvic Region And Thigh 12/30/2009 719.45 Pain In Joint , Pelvic Region And Thigh 12/30/2009 719.45 Pain In Joint , Pelvic Region And Thigh 12/30/2009 719.45 Pain In Joint , Pelvic Region And Thigh 12/30/2009 YOEL GREEN [...] CHILEL MD 724.5 Backache, Unspecified 02/15/2010 GETACHEW DAAMS, DENZEL 724.5 Backache, Unspecified 02/15/2010 GETACHEW ADAMS, DENZEL Martinez.5 Backache, Unspecified 06/21/2010 YOEL GREEN DO 724.2 Lumbago/ Low Back Pain 06/21/2010 YOEL GREEN DO 724.2 Lumbago/ Low Back Pain 06/21/2010 GETACHEW ADAMS, DENZEL 724.2 Lumbago/ Low Back Pain 06/21/2010 YOEL GREEN DO 724.2 Lumbago/ Low Back Pain 06/21/2010 GETACHEW ADAMS, DENZEL 724.2 Lumbago/ Low Back Pain 06/21/2010 YOEL GREEN DO 724.2 Lumbago/ Low Back Pain 06/21/2010 724.2 [...] Low Back Pain 08/23/2010 YOEL GREEN DO 737.30 SCOLIOSIS (AND KYPHOSCOLIOSIS) IDIOPATHIC 08/23/2010 YOEL GREEN DO 737.30 SCOLIOSIS (AND KYPHOSCOLIOSIS) IDIOPATHIC 08/23/2010 DENZEL CHILEL MD 737.30 SCOLIOSIS (AND KYPHOSCOLIOSIS) IDIOPATHIC 08/23/2010 YOEL GREEN DO 737.30 SCOLIOSIS (AND KYPHOSCOLIOSIS) IDIOPATHIC 08/23/2010 DENZEL CHILEL MD 737.30 SCOLIOSIS (AND KYPHOSCOLIOSIS) IDIOPATHIC 08/23/2010 YOEL GREEN DO 737.30 SCOLIOSIS (AND KYPHOSCOLIOSIS) IDIOPATHIC 08/23/2010 737.30 SCOLIOSIS ( AND KYPHOSCOLIOSIS) IDIOPATHIC 08/23/2010 737.30 SCOLIOSIS ( AND KYPHOSCOLIOSIS) IDIOPATHIC 08/23/2010 737.30 SCOLIOSIS ( AND KYPHOSCOLIOSIS) IDIOPATHIC 08/23/2010 737.30 SCOLIOSIS ( AND KYPHOSCOLIOSIS) IDIOPATHIC 08/23/2010 YEOL GREEN DO 737.30 SCOLIOSIS (AND KYPHOSCOLIOSIS) IDIOPATHIC 08/23/2010 DENZEL CHILEL MD 737.30 SCOLIOSIS (AND KYPHOSCOLIOSIS) IDIOPATHIC 08/23/2010 GETACHEW ADAMS, DENZEL 737.30 SCOLIOSIS (AND KYPHOSCOLIOSIS) IDIOPATHIC 08/23/2010 DENZEL CHILEL MD 737.30 SCOLIOSIS (AND KYPHOSCOLIOSIS) IDIOPATHIC 08/23/2010 GETACHEW ADAMS, DENZEL 737.30 SCOLIOSIS (AND KYPHOSCOLIOSIS) IDIOPATHIC 08/23/2010 DENZEL CHILEL MD 737.30 SCOLIOSIS (AND KYPHOSCOLIOSIS) IDIOPATHIC 08/23/2010 DENZEL CHILEL MD 737.30 SCOLIOSIS (AND KYPHOSCOLIOSIS) IDIOPATHIC 08/23/2010 DENZEL [...] ADAMS, DENZEL 599.0 Urinary Tract Infection 03/20/2012 DENZEL CHILEL MD 599.0 Urinary Tract Infection 03/20/2012 DENZEL CHILEL MD 599.0 Urinary Tract Infection 05/21/2012 YOEL GREEN DO 307.47 SI DYSSOMNIA NOS 05/21/2012 YOEL GREEN DO 307.47 SI DYSSOMNIA NOS 05/21/2012 DENZEL CHILEL MD 307.47 SI DYSSOMNIA NOS 05/21/2012 YOEL GREEN [...] GREEN DO 486 PNEUMONIA ORGANISM UNSPECIFIED 07/18/2012 DENZEL CHILEL MD 486 PNEUMONIA ORGANISM UNSPECIFIED 07/18/2012 YOEL GREEN [...] GETACHEW ADAMS, DENZEL 486 PNEUMONIA ORGANISM UNSPECIFIED 08/21/2012 NORMA GARCIA YOEL F 298.9 P PSYCHOSIS NOS 08/21/2012 NORMA GARCIA YOEL F 298.9 P PSYCHOSIS NOS 08/21/2012 DENZEL CHILEL MD 298.9 P PSYCHOSIS NOS 08/21/2012 LEIGH ANN GREEN DOEN F 298.9 P PSYCHOSIS NOS 08/21/2012 DENZEL CHILEL MD 298.9 P PSYCHOSIS NOS 08/21/2012 LEIGH ANN GREEN DOEN F 298.9 P PSYCHOSIS NOS 08/21/2012 298.9 [...] YOEL GREEN DO F 786.2 COUGH 10/22/2012 DENZEL CHILEL MD 786.2 COUGH 10/22/2012 YOEL GREEN DO F 786.2 COUGH 10/22/2012 786.2 COUGH 10/22/2012 786.2 COUGH 10/22/2012 786.2 COUGH 10/22/2012 786.2 COUGH 10/22/2012 LEIGH ANN GREEN DOEN F 786.2 COUGH 10/22/2012 GETACHEW ADAMS, DENZEL 786.2 COUGH 10/22/2012 DENZEL CHILEL MD 786.2 [...] STATES 03/21/2013 790.29 OTHER ABNORMAL GLUCOSE 03/21/2013 NORMA YOEL 627.2 SYMPTOMATIC MENOPAUSAL OR FEMALE CLIMACTERIC STATES 03/21/2013 NORMA YOEL 790.29 OTHER ABNORMAL GLUCOSE 03/21/2013 DENZEL CHILEL MD 62Bishop.2 SYMPTOMATIC MENOPAUSAL OR FEMALE CLIMACTERIC STATES 03/21/2013 [...] MENOPAUSAL OR FEMALE CLIMACTERIC STATES 03/21/2013 DENZEL HCILEL MD 790.29 OTHER ABNORMAL GLUCOSE 03/21/2013 DENZEL [...] ADAMS, DENZEL 785.1 PALPITATIONS 12/24/2013 GETACHEW ADAMS, EDNZEL 786.09 DYSPNEA 12/24/2013 GETACHEW ADAMS, DENZEL 305.1 [...] ADAMS, AN Albarado Ot 786.2 COUGH 01/28/2014 TRUMAN GARCIA KADIE K Ot 300.00 ANXIETY STATE NOS 01/28/2014 TRUMAN GARCIA KADIE K Ot 780.52 INSOMNIA, UNSPECIFIED 02/01/2014 TRUMAN GARCIA KADIE K Ot 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 02/01/2014 TRUMAN GARCIA KADIE K Ot 599.0 URIN TRACT INFECTION NOS 02/01/2014 TRUMAN GARCIA KADIE K Ot 780.52 INSOMNIA, UNSPECIFIED 02/01/2014 JULI LAUGHLIN DOA K Ot 785.1 PALPITATIONS 04/17/2014 DIANA ADAMS, [...] ASPIRIN 05/02/2014 MARIALUISA PATEL MD Ot V58.69 OT MED,LT,CURRENT USE 03/03/2015 GABRIELA PRYOR DO Ot [...] FACP CCDS Ot 496 05/08/2015 MUNIRA ADAMS FAC, ALI FACP CCDS Ot 785.1 05/08/2015 MUNIRA ADAMS FAC, ALI FACP CCDS Ot 786.09 05/08/2015 KRISTOPHER MILLER FLATBED TRUCK DRIVER Ot 780.52 INSOMNIA, UNSPECIFIED 05/08/2015 KRISTOPHER MILLER FLATBED TRUCK DRIVER Ot V68.1 ISSUE REPEAT PRESCRIPT 02/25/2016 ROMY [...] RESPIRATORY ABNORM NEC 06/07/2016 DAMI VILLARREAL R 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 Ot Z12.31 ENCNTR SCREEN MAMMOGRAM FOR MALIGNANT NE 06/08/2016 DAMI VILLARREAL 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 Ot Z12.31 ENCNTR SCREEN MAMMOGRAM FOR MALIGNANT NE 06/15/2016 DAMI VILLARREAL R 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 Ot Z12.31 ENCNTR SCREEN MAMMOGRAM FOR MALIGNANT NE 06/16/2016 DAMI VILLARREAL R 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 Ot Z12.31 ENCNTR SCREEN MAMMOGRAM FOR MALIGNANT NE 06/16/2016 DAMI VILLARREAL R 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 Ot Z12.31 ENCNTR SCREEN MAMMOGRAM FOR MALIGNANT NE 06/16/2016 ROMY PULIDO MD N Ot R00.2 PALPITATIONS 06/30/2016 DAMI VILLARREAL 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 Ot Z12.31 ENCNTR SCREEN MAMMOGRAM FOR MALIGNANT NE 07/04/2016 DAMI VILLARREAL R 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 Ot Z12.31 ENCNTR SCREEN MAMMOGRAM FOR MALIGNANT NE 07/04/2016 ROMY PULIDO MD N Ot R00.2 PALPITATIONS 07/07/2016 ROMY PULIDO MD N Ot R00.2 PALPITATIONS 08/12/2016 MUNIRA ADAMS FACC, ALI FACP CCDS Ot 305.1 TOBACCO USE DISORDER 08/12/2016 MUNIRA ADAMS FACC, ALI FACP CCDS Ot 496 CHR AIRWAY OBSTRUCT NEC 08/12/2016 MUNIRA DAAMS FACC, ALI FACP CCDS Ot 785.1 PALPITATIONS 08/12/2016 MUNIRA ADAMS FACC, ALI FACP CCDS Ot 786.09 RESPIRATORY ABNORM NEC 08/12/2016 MUNIRA ADAMS FAC, ALI FACP CCDS Ot 305.1 TOBACCO USE DISORDER 08/12/2016 MUNIRA ADAMS FAC, ALI FACP CCDS Ot 496 CHR AIRWAY OBSTRUCT NEC 08/12/2016 MUNIRA ADAMS FACC, ALI FACP CCDS Ot 785.1 PALPITATIONS 08/12/2016 MUNIRA ADAMS FACC, ALI FACP CCDS Ot 786.09 RESPIRATORY ABNORM NEC 08/12/2016 ROMY PULIDO MD Ot R00.2 PALPITATIONS 08/12/2016 DAMI VILLARREAL 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 Ot Z12.31 ENCNTR SCREEN MAMMOGRAM FOR MALIGNANT NE 08/12/2016 MARIALUISA PATEL MD Ot F17.210 NICOTINE DEPENDENCE, CIGARETTES, UNCOMPL 08/12/2016 MARIALUISA PATEL MD Ot I47.9 PAROXYSMAL TACHYCARDIA, UNSPECIFIED 08/12/2016 MARIALUISA PATEL MD Ot R00.0 TACHYCARDIA, UNSPECIFIED 08/12/2016 MUNIRA ADAMS FAC, ALI FACP CCDS Ot 305.1 TOBACCO USE DISORDER 08/12/2016 MUNIRA ADAMS [facility], ALI FACP CCDS Ot 496 CHR AIRWAY OBSTRUCT NEC 08/12/2016 MUNIRA ADAMS FAC, ALI FACP CCDS Ot 785.1 PALPITATIONS 08/12/2016 MUNIRA ADAMS FAC, ALI FACP CCDS Ot 786.09 RESPIRATORY ABNORM NEC 08/12/2016 MUNIRA ADAMS FAC, ALI FACP CCDS Ot 305.1 TOBACCO USE DISORDER 08/12/2016 MUNIRA ADAMS FAC, ALI FACP CCDS Ot 496 CHR AIRWAY OBSTRUCT NEC 08/12/2016 MUNIRA ADAMS [facility], ALI FACP CCDS Ot 785.1 PALPITATIONS 08/12/2016 MUNIRA ADAMS [facility], ALI FACP CCDS Ot 786.09 RESPIRATORY ABNORM NEC 08/12/2016 ROMY PULIDO MD Ot R00.2 PALPITATIONS 08/12/2016 DAMI VILLARREAL 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 Ot Z12.31 ENCNTR SCREEN MAMMOGRAM FOR MALIGNANT NE 08/15/2016 MARIALUISA PATEL MD Ot F17.210 NICOTINE DEPENDENCE, CIGARETTES, UNCOMPL 08/15/2016 MARIALUISA PATLE MD Ot I47.9 PAROXYSMAL TACHYCARDIA, UNSPECIFIED 08/15/2016 [...] CHR AIRWAY OBSTRUCT NEC 08/16/2016 MUNIRA ADAMS FACRenny, ALI FACP CCDS Ot 785.1 PALPITATIONS 08/16/2016 MUNIRA ADAMS FACRenny, ALI FACP CCDS Ot 786.09 RESPIRATORY ABNORM NEC 08/16/2016 ROMY PULIDO MD Ot R00.2 PALPITATIONS 08/16/2016 DAMI VILLARREAL 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 Ot Z12.31 ENCNTR SCREEN MAMMOGRAM FOR MALIGNANT NE 08/22/2016 ROMY PULIDO MD Ot R00.2 PALPITATIONS 08/23/2016 ROMY PULIDO MD [...] 786.09 RESPIRATORY ABNORM NEC 10/11/2016 DAMI VILLARREAL 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 Ot Z12.31 ENCNTR SCREEN MAMMOGRAM FOR MALIGNANT NE 10/11/2016 ROMY PULIDO MD Ot R00.2 PALPITATIONS 10/11/2016 KAIDE LAUGHLIN DO Ot F17.210 NICOTINE DEPENDENCE, CIGARETTES, UNCOMPL 10/11/2016 KADIE LAUGHLIN DO Ot F41.9 ANXIETY DISORDER, UNSPECIFIED 10/11/2016 KADIE LAUGHLIN DO Ot J44.9 CHRONIC OBSTRUCTIVE PULMONARY DISEASE, U 10/11/2016 KADIE LAUGHLIN DO Ot R00.2 PALPITATIONS 10/11/2016 KADIE LAUGHLIN DO Ot Z79.899 OTHER [employer] (CURRENT) DRUG THERAPY 10/29/2016 KRISTOPHER MILLER FLATBED TRUCK DRIVER Ot F17.210 NICOTINE DEPENDENCE, CIGARETTES, UNCOMPL 10/29/2016 KRISTOPHER MILLER APRN Ot F41.9 ANXIETY DISORDER, UNSPECIFIED 10/29/2016 KRISTOPHER MILLER FLATBED TRUCK DRIVER Ot R00.2 PALPITATIONS 10/29/2016 KRISTOPHER MILLER FLATBED TRUCK DRIVER Ot R06.02 SHORTNESS OF BREATH 10/29/2016 KRISTOPHER MILLER FLATBED TRUCK DRIVER Ot Z79.899 OTHER [facility] (CURRENT) DRUG THERAPY 10/29/2016 MUNIRA ADAMS FACC, [...] 786.09 RESPIRATORY ABNORM NEC 10/29/2016 DAMI VILLARREAL 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 Ot Z12.31 ENCNTR SCREEN MAMMOGRAM FOR MALIGNANT NE 10/29/2016 ROMY PULIDO MD Ot R00.2 PALPITATIONS 10/31/2016 KRISTOPHER MILLER FLATBED TRUCK DRIVER Ot F17.210 NICOTINE DEPENDENCE, CIGARETTES, UNCOMPL 10/31/2016 KRISTOPHER MILLER J FLATBED TRUCK DRIVER Ot F41.9 ANXIETY DISORDER, UNSPECIFIED 10/31/2016 MILLER, KRISTOPHER Weston FLATBED TRUCK DRIVER Ot R00.2 PALPITATIONS 10/31/2016 MILLERKRISTOPHER FLATBED TRUCK DRIVER Ot R06.02 SHORTNESS OF BREATH 10/31/2016 MILLER, KRISTOPHER Weston FLATBED TRUCK DRIVER Ot Z79.899 OTHER [employer] (CURRENT) DRUG THERAPY 11/01/2016 KRISTOPHER MILLER FLATBED TRUCK DRIVER Ot F17.210 NICOTINE DEPENDENCE, CIGARETTES, UNCOMPL 11/01/2016 MILLERKRISTOPHER FLATBED TRUCK DRIVER Ot F41.9 ANXIETY DISORDER, UNSPECIFIED 11/01/2016 MILLERKRISTOPHER BAILON Enrico FLATBED TRUCK DRIVER Ot R00.2 PALPITATIONS 11/01/2016 MILLER, KRISTOPHER Weston FLATBED TRUCK DRIVER Ot R06.02 SHORTNESS OF BREATH 11/01/2016 MILLER, KRISTOPHER Weston FLATBED TRUCK DRIVER Ot Z79.899 OTHER [employer] (CURRENT) DRUG THERAPY 12/18/2016 MUNIRA ADAMS FACC, [...] CCDS Ot 785.1 PALPITATIONS 12/18/2016 MUNIRA ADAMS FAC, ALI FACP CCDS Ot 786.09 RESPIRATORY ABNORM NEC 12/18/2016 DAMI VILLARREAL 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 Ot Z12.31 ENCNTR SCREEN MAMMOGRAM FOR MALIGNANT NE 12/18/2016 ASHOK ADAMS, ROMY Huitron Ot R00.2 PALPITATIONS 12/18/2016 GABRIELA PRYOR DO Ot F17.210 NICOTINE DEPENDENCE, CIGARETTES, UNCOMPL 12/18/2016 GABRIELA PRYOR DO Ot J44.9 CHRONIC OBSTRUCTIVE PULMONARY DISEASE, U 12/18/2016 GABRIELA PRYOR DO Ot J45.909 UNSPECIFIED ASTHMA, UNCOMPLICATED 12/18/2016 GABRIELA PRYOR DO D Ot R05 COUGH 12/19/2016 ROYA GARCIAGABRIELA Ot F17.210 NICOTINE DEPENDENCE, CIGARETTES, UNCOMPL 12/19/2016 ROYAGABRIELA CROCKETT DO Ot J45.909 UNSPECIFIED ASTHMA, UNCOMPLICATED 12/19/2016 ROYA GABRIELA AGRCIA Ot R05 COUGH 12/20/2016 GABRIELA PRYOR DO Brenda Ot F17.210 NICOTINE DEPENDENCE, CIGARETTES, UNCOMPL 12/20/2016 [...] CHR AIRWAY OBSTRUCT NEC 01/15/2017 MUNIRA ADAMS [facility], ALI FACP CCDS Ot 785.1 PALPITATIONS 01/15/2017 MUNIRA ADAMS FAC, ALI FACP CCDS Ot 786.09 RESPIRATORY ABNORM NEC 01/15/2017 MUNIRA ADAMS FAC, ALI FACP CCDS Ot 305.1 TOBACCO USE DISORDER 01/15/2017 MUNIRA ADAMS FAC, ALI FACP CCDS Ot 496 CHR AIRWAY OBSTRUCT NEC 01/15/2017 MUNIRA ADAMS FAC, ALI FACP CCDS Ot 785.1 PALPITATIONS 01/15/2017 MUNIRA ADAMS [facility], ALI FACP CCDS Ot 786.09 RESPIRATORY ABNORM NEC 01/15/2017 DAMI VILLARREAL 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 Ot Z12.31 ENCNTR SCREEN MAMMOGRAM FOR MALIGNANT NE 01/15/2017 ASHOK ADAMS, ROMY Huitron Ot R00.2 PALPITATIONS 01/15/2017 MERON WEATHERS MD Ot E11.65 TYPE 2 DIABETES MELLITUS WITH HYPERGLYCE 01/15/2017 MERON WEATHERS MD A Ot I10 ESSENTIAL (PRIMARY) HYPERTENSION 01/15/2017 MERON WEATHERS MD A Ot J44.9 CHRONIC OBSTRUCTIVE PULMONARY DISEASE, U 01/15/2017 MERON WEATHERS MD A Ot R42 DIZZINESS AND GIDDINESS 01/15/2017 MERON WEATHERS MD A Ot Z79.84 [facility] (CURRENT) USE OF ORAL HYPOGLYC 01/15/2017 MARYCHUY WEATHERS MDNT A Ot Z79.899 OTHER [employer] (CURRENT) DRUG THERAPY 01/16/2017 MERON WEATHERS MD A Ot E11.65 TYPE 2 DIABETES MELLITUS WITH HYPERGLYCE 01/16/2017 MERON WEATHERS MD A Ot I10 ESSENTIAL (PRIMARY) HYPERTENSION 01/16/2017 MERON WEATHERS MD A Ot J44.9 CHRONIC OBSTRUCTIVE PULMONARY DISEASE, U 01/16/2017 MERON WEATHERS MD A Ot R42 DIZZINESS AND GIDDINESS 01/16/2017 MERON WEATHERS MD A Ot Z79.84 [facility] (CURRENT) USE OF ORAL HYPOGLYC 01/16/2017 MERON WEATHERS MD A Ot Z79.899 OTHER [employer] (CURRENT) DRUG THERAPY 01/25/2017 KADIE LAUGHLIN DO Ot F17.210 NICOTINE DEPENDENCE, CIGARETTES, UNCOMPL 01/25/2017 KADIE LAUGHLIN DO Ot F41.9 ANXIETY DISORDER, UNSPECIFIED 01/25/2017 TRUMAN DO, KADIE K Ot I10 ESSENTIAL (PRIMARY) HYPERTENSION 01/25/2017 TRUMAN DO, KADIE K Ot J44.9 CHRONIC OBSTRUCTIVE PULMONARY DISEASE, U 01/25/2017 TRUMAN DO, KADIE K Ot R07.89 OTHER CHEST PAIN 01/25/2017 TRUMAN DO, KADIE K Ot F17.210 NICOTINE DEPENDENCE, CIGARETTES, UNCOMPL 01/25/2017 TRUMAN DO, KADIE K Ot F41.9 ANXIETY DISORDER, UNSPECIFIED 01/25/2017 TRUMAN DO, KADIE K Ot I10 ESSENTIAL (PRIMARY) HYPERTENSION 01/25/2017 TRUMAN DO, KADIE K Ot J44.9 CHRONIC OBSTRUCTIVE PULMONARY DISEASE, U 01/25/2017 TRUMAN DO, KADIE K Ot R07.89 OTHER CHEST PAIN 01/28/2017 DIANA ADAMS, SHAILESH T Ot F17.210 NICOTINE DEPENDENCE, CIGARETTES, UNCOMPL 01/28/2017 DIANA ADAMS, SHAILESH Lyn Ot F41.9 ANXIETY DISORDER, UNSPECIFIED 01/28/2017 DIANA ADAMS, SHAILESH T Ot I10 ESSENTIAL (PRIMARY) HYPERTENSION 01/28/2017 SHAILESH ORTIZ MD Ot J44.9 CHRONIC OBSTRUCTIVE PULMONARY DISEASE, U 01/28/2017 DIANA ADAMS, SHAILESH T Ot R07.89 OTHER CHEST PAIN 01/28/2017 DIANA ADAMS, SHAILESH T Ot R07.9 CHEST PAIN, UNSPECIFIED 01/28/2017 SHAILESH ORTIZ MD T Ot R10.816 EPIGASTRIC ABDOMINAL TENDERNESS 01/29/2017 DIANA ADAMS, SHAILESH T Ot F17.210 NICOTINE DEPENDENCE, CIGARETTES, UNCOMPL 01/29/2017 SHAILESH ORTIZ MD T Ot F41.9 ANXIETY DISORDER, UNSPECIFIED 01/29/2017 SHAILESH ORTIZ MD T Ot I10 ESSENTIAL (PRIMARY) HYPERTENSION 01/29/2017 SHAILESH ORTIZ MD T Ot J44.9 CHRONIC OBSTRUCTIVE PULMONARY DISEASE, U 01/29/2017 SHAILESH ORTIZ MD T Ot R07.89 OTHER CHEST PAIN 01/29/2017 SHAILESH ORTIZ MD T Ot R07.9 CHEST PAIN, UNSPECIFIED 01/29/2017 SHAILESH ORTIZ MD Ot R10.816 EPIGASTRIC ABDOMINAL TENDERNESS 01/30/2017 GABRIELA PRYOR DO Ot F17.210 NICOTINE DEPENDENCE, CIGARETTES, UNCOMPL 01/30/2017 GABRIELA PRYOR DO Ot J44.9 CHRONIC OBSTRUCTIVE PULMONARY DISEASE, U 01/30/2017 GABRIELA PRYOR DO Ot J45.909 UNSPECIFIED ASTHMA, UNCOMPLICATED 01/30/2017 GABRIELA PRYOR DO Ot R05 COUGH 02/03/2017 SHAILESH ORTIZ MD Ot E11.9 TYPE 2 DIABETES MELLITUS WITHOUT COMPLIC 02/03/2017 SHAILESH ORTIZ MD Ot F17.210 NICOTINE DEPENDENCE, CIGARETTES, UNCOMPL 02/03/2017 SHAILESH ORTIZ MD Ot F41.9 ANXIETY DISORDER, UNSPECIFIED 02/03/2017 SHAILESH ORTIZ MD Ot I10 ESSENTIAL (PRIMARY) HYPERTENSION 02/03/2017 SHAILESH ORTIZ MD Ot J44.9 CHRONIC OBSTRUCTIVE PULMONARY DISEASE, U 02/03/2017 SHAILESH ORTIZ MD Ot R51 HEADACHE 02/03/2017 SHAILESH ORTIZ MD Ot Z79.84 [facility] (CURRENT) USE OF ORAL HYPOGLYC 02/03/2017 SHAILESH ORTIZ MD Ot Z79.899 OTHER [facility] (CURRENT) DRUG THERAPY 02/03/2017 SHAILESH ORTIZ MD Ot F17.210 NICOTINE DEPENDENCE, CIGARETTES, UNCOMPL 02/03/2017 SHAILESH ORTIZ MD Ot F41.9 ANXIETY DISORDER, UNSPECIFIED 02/03/2017 SHAILESH ORTIZ MD Ot I10 ESSENTIAL (PRIMARY) HYPERTENSION 02/03/2017 SHAILESH ORTIZ MD Ot J44.9 CHRONIC OBSTRUCTIVE PULMONARY DISEASE, U 02/03/2017 SHAILESH ORTIZ MD Ot R07.89 OTHER CHEST PAIN 02/03/2017 SHAILESH ORTIZ MD Ot R07.9 CHEST PAIN, UNSPECIFIED 02/03/2017 SHAILESH ORTIZ MD Ot R10.816 EPIGASTRIC ABDOMINAL TENDERNESS 02/05/2017 SHAILESH ORTIZ MD Ot E11.9 TYPE 2 DIABETES MELLITUS WITHOUT COMPLIC 02/05/2017 SHAILESH ORTIZ MD Ot F17.210 NICOTINE DEPENDENCE, CIGARETTES, UNCOMPL 02/05/2017 SHAILESH ORTIZ MD Ot F41.9 ANXIETY DISORDER, UNSPECIFIED 02/05/2017 SHAILESH ORTIZ MD Ot I10 ESSENTIAL (PRIMARY) HYPERTENSION 02/05/2017 SHAILESH ORTIZ MD Ot J44.9 CHRONIC OBSTRUCTIVE PULMONARY DISEASE, U 02/05/2017 SHAILESH ORTIZ MD Ot R51 HEADACHE 02/05/2017 SHAILESH ORTIZ MD Ot Z79.84 [facility] (CURRENT) USE OF ORAL HYPOGLYC 02/05/2017 SHAILESH ORTIZ MD Ot Z79.899 OTHER [employer] (CURRENT) DRUG THERAPY 03/04/2017 KADIE LAUGHLIN DO Ot E11.9 TYPE 2 DIABETES MELLITUS WITHOUT COMPLIC 03/04/2017 KADIE LAUGHLIN DO Ot F17.210 NICOTINE DEPENDENCE, CIGARETTES, UNCOMPL 03/04/2017 KADIE LAUGHLIN DO Ot J44.9 CHRONIC OBSTRUCTIVE PULMONARY DISEASE, U 03/04/2017 KADIE LAUGHLIN DO Ot M47.812 SPONDYLOSIS W/O MYELOPATHY OR RADICULOPA 03/04/2017 KADIE LAUGHLIN DO Ot M50.20 OTHER CERVICAL DISC DISPLACEMENT, UNSP C 03/04/2017 KADIE LAUGHLIN DO Ot M54.6 PAIN IN THORACIC SPINE 03/04/2017 KADIE LAUGHLIN DO Ot M79.602 PAIN IN LEFT ARM 03/04/2017 KADIE LAUGHLIN DO Ot Z96.641 PRESENCE OF RIGHT ARTIFICIAL HIP JOINT 04/27/2017 SHAILESH ORTIZ MD Ot E11.9 TYPE 2 DIABETES MELLITUS WITHOUT COMPLIC 04/27/2017 SHAILESH ORTIZ MD Ot F17.210 NICOTINE DEPENDENCE, CIGARETTES, UNCOMPL 04/27/2017 SHAILESH ORTIZ MD Ot F41.9 ANXIETY DISORDER, UNSPECIFIED 04/27/2017 SHAILESH ORTIZ MD Ot I10 ESSENTIAL (PRIMARY) HYPERTENSION 04/27/2017 SHAILESH ORTIZ MD Ot J44.9 CHRONIC OBSTRUCTIVE PULMONARY DISEASE, U 04/27/2017 DIANA ADAMS, SHAILESH Lyn Ot R51 HEADACHE 04/27/2017 DIANA ADAMS, SHAILESH Lyn Ot Z79.84 [facility] (CURRENT) USE OF ORAL HYPOGLYC 04/27/2017 DIANA ADAMS, SHAILESH Lyn Ot Z79.899 OTHER [facility] (CURRENT) DRUG THERAPY 09/28/2017 TRUMAN KADIE K Ot E11.9 TYPE 2 DIABETES MELLITUS WITHOUT COMPLIC 09/28/2017 TRUMAN KADIE K Ot F17.210 NICOTINE DEPENDENCE, CIGARETTES, UNCOMPL 09/28/2017 TRUMAN KADIE K Ot F31.9 BIPOLAR DISORDER, UNSPECIFIED 09/28/2017 TRUMAN KADIE K Ot F41.9 ANXIETY DISORDER, UNSPECIFIED 09/28/2017 TRUMAN KADIE K Ot I10 ESSENTIAL (PRIMARY) HYPERTENSION 09/28/2017 TRUMAN DO KADIE K Ot J43.9 EMPHYSEMA, UNSPECIFIED 09/28/2017 TRUMAN DO KADIE K Ot M41.9 SCOLIOSIS, UNSPECIFIED 09/28/2017 TRUMAN KADIE K Ot N64.4 MASTODYNIA 09/28/2017 TRUMAN KADIE K Ot Z79.84 [facility] (CURRENT) USE OF ORAL HYPOGLYC 09/28/2017 TRUMAN KADIE K Ot Z87.59 PERSONAL HISTORY OF COMP OF PREG, CHLDBR 09/28/2017 TRUMAN KADIE K Ot Z90.711 ACQUIRED ABSENCE OF UTERUS WITH REMAININ 09/28/2017 TRUMAN KADIE K Ot Z96.641 PRESENCE OF RIGHT ARTIFICIAL HIP JOINT 10/09/2017 ROMY PULIDO MD Ot Z12.31 ENCNTR SCREEN MAMMOGRAM FOR MALIGNANT NE 10/15/2017 ROMY PULIDO MD Ot M48.02 SPINAL STENOSIS, CERVICAL REGION 10/15/2017 ROMY PULIDO MD Ot M50.122 CERVICAL DISC DISORDER AT C5-C6 LEVEL [place] 10/15/2017 ROMY PULIDO MD Ot N64.4 MASTODYNIA 10/19/2017 KRISTOPHER MILLER APRN Ot E11.9 TYPE 2 DIABETES MELLITUS WITHOUT COMPLIC 10/19/2017 KRISTOPHER MILLER APRN Ot F31.9 BIPOLAR DISORDER, UNSPECIFIED 10/19/2017 KRISTOPHER MILLER APRN Ot F41.9 ANXIETY DISORDER, UNSPECIFIED 10/19/2017 KRISTOPHER MILLER APRN Ot I10 ESSENTIAL (PRIMARY) HYPERTENSION 10/19/2017 KRISTOPHER MILLER APRN Ot J43.9 EMPHYSEMA, UNSPECIFIED 10/19/2017 KRISTOPHER MILLER APRN Ot M41.9 SCOLIOSIS, UNSPECIFIED 10/19/2017 KRISTOPHER MILLER APRN Ot R07.89 OTHER CHEST PAIN 10/19/2017 KRISTOPHER MILLER APRN Ot Z77.22 CNTCT W AND EXPSR TO ENVIRON TOBACCO SMO 10/19/2017 KRISTOPHER MILLER APRN Ot Z79.84 [facility] (CURRENT) USE OF ORAL HYPOGLYC 10/19/2017 KRISTOPHER MILLER APRN Ot Z87.59 PERSONAL HISTORY OF COMP OF PREG, CHLDBR 10/19/2017 KRISTOPHER MILLER APRN Ot Z90.711 ACQUIRED ABSENCE OF UTERUS WITH REMAININ 10/19/2017 KRISTOPHER MILLER APRN Ot Z96.641 PRESENCE OF RIGHT ARTIFICIAL HIP JOINT 11/02/2017 ROMY PULIDO MD Ot M48.02 SPINAL STENOSIS, CERVICAL REGION 11/02/2017 ROMY PULIDO MD Ot M50.122 CERVICAL DISC DISORDER AT C5-C6 LEVEL [place] 11/02/2017 ROMY PULIDO MD Ot N64.4 MASTODYNIA 11/27/2017 ROMY PULIDO MD Ot M48.02 SPINAL STENOSIS, CERVICAL REGION 11/27/2017 ROMY PULIDO MD Ot M50.122 CERVICAL DISC DISORDER AT C5-C6 LEVEL [place] 11/27/2017 ROMY PULIDO MD Ot N64.4 MASTODYNIA 11/27/2017 KRISTOPHER MILLER APRN Ot E11.9 TYPE 2 DIABETES MELLITUS WITHOUT COMPLIC 11/27/2017 KRISTOPHER MILLER APRN Ot F13.10 SEDATIVE, HYPNOTIC OR ANXIOLYTIC ABUSE, 11/27/2017 KRISTOPHER MILLER APRN Ot F31.9 BIPOLAR DISORDER, UNSPECIFIED 11/27/2017 KRISTOPHER MILLER APRN Ot F41.9 ANXIETY DISORDER, UNSPECIFIED 11/27/2017 KRISTOPHER MILLER APRN Ot I10 ESSENTIAL (PRIMARY) HYPERTENSION 11/27/2017 KRISTOPHER MILLER APRN Ot J43.9 EMPHYSEMA, UNSPECIFIED 11/27/2017 KRISTOPHER MILLER APRN Ot K21.9 GASTRO-ESOPHAGEAL REFLUX DISEASE WITHOUT 11/27/2017 KRISTOPHER MILLER APRN Ot R12 HEARTBURN 11/27/2017 KRISTOPHER MILLER APRN Ot Z77.22 CNTCT W AND EXPSR TO ENVIRON TOBACCO SMO 11/27/2017 KRISTOPHER MILLER APRN Ot Z79.84 [facility] (CURRENT) USE OF ORAL HYPOGLYC 11/27/2017 KRISTOPHER MILLER APRN Ot Z87.59 PERSONAL HISTORY OF COMP OF PREG, CHLDBR 11/27/2017 KRISTOPHER MILLER APRN Ot Z87.81 PERSONAL HISTORY OF (HEALED) TRAUMATIC F 11/27/2017 KRISTOPHER MILLER APRN Ot Z90.710 ACQUIRED ABSENCE OF BOTH CERVIX AND UTER 11/28/2017 DAMI VILLARREAL Ot Z12.31 ENCNTR SCREEN MAMMOGRAM FOR MALIGNANT NE 11/28/2017 ROMY PULIDO MD Ot R00.2 PALPITATIONS 11/28/2017 ROMY PULIDO MD Ot M48.02 SPINAL STENOSIS, CERVICAL REGION 11/28/2017 ROMY PULIDO MD Ot M50.122 CERVICAL DISC DISORDER AT C5-C6 LEVEL WI 11/28/2017 ROMY PULIDO MD Ot N64.4 MASTODYNIA 11/29/2017 DAMI VILLARREAL Ot Z12.31 ENCNTR SCREEN MAMMOGRAM FOR MALIGNANT NE 11/29/2017 ROMY PULIDO MD Ot R00.2 PALPITATIONS 11/29/2017 ROMY PULIDO MD Ot M48.02 SPINAL STENOSIS, CERVICAL REGION 11/29/2017 ROMY PULIDO MD Ot M50.122 CERVICAL DISC DISORDER AT C5-C6 LEVEL WI 11/29/2017 ROMY PULIDO MD Ot N64.4 MASTODYNIA 11/29/2017 KRISTOPHER MILLER APRN Ot E11.9 TYPE 2 DIABETES MELLITUS WITHOUT COMPLIC 11/29/2017 KRISTOPHER MILLER APRN Ot F13.10 SEDATIVE, HYPNOTIC OR ANXIOLYTIC ABUSE, 11/29/2017 KRISTOPHER MILLER APRN Ot F31.9 BIPOLAR DISORDER, UNSPECIFIED 11/29/2017 KRISTOPHER MILLER APRN Ot F41.9 ANXIETY DISORDER, UNSPECIFIED 11/29/2017 KRISTOPHER MILLER APRN Ot I10 ESSENTIAL (PRIMARY) HYPERTENSION 11/29/2017 KRISTOPHER MILLER APRN Ot J43.9 EMPHYSEMA, UNSPECIFIED 11/29/2017 KRISTOPHER MILLER APRN Ot K21.9 GASTRO-ESOPHAGEAL REFLUX DISEASE WITHOUT 11/29/2017 KRISTOPHER MILLER APRN Ot R12 HEARTBURN 11/29/2017 KRISTOPHER MILLER APRN Ot Z77.22 CNTCT W AND EXPSR TO ENVIRON TOBACCO SMO 11/29/2017 KRISTOPHER MILLER APRN Ot Z79.84 [facility] (CURRENT) USE OF ORAL HYPOGLYC 11/29/2017 KRISTOPHER MILLER APRN Ot Z87.59 PERSONAL HISTORY OF COMP OF PREG, CHLDBR 11/29/2017 KRISTOPHER MILLER APRN Ot Z87.81 PERSONAL HISTORY OF (HEALED) TRAUMATIC F 11/29/2017 KRISTOPHER MILLER APRN Ot Z90.710 ACQUIRED ABSENCE OF BOTH CERVIX AND UTER 12/09/2017 DAMI VILLARREAL Ot Z12.31 ENCNTR SCREEN MAMMOGRAM FOR MALIGNANT NE 12/09/2017 ASHOK ADAMS, ROMY Huitron Ot R00.2 PALPITATIONS 12/09/2017 ROMY PULIDO MD Ot M48.02 SPINAL STENOSIS, CERVICAL REGION 12/09/2017 ROMY PULIDO MD Ot M50.122 CERVICAL DISC DISORDER AT C5-C6 LEVEL [place] 12/09/2017 ROMY PULIDO MD Ot N64.4 MASTODYNIA Procedures Code [place] [address] URINE DRUG SCREEN (IN-HOUSE ) 10/22/2012 21814 ROUTINE VENIPUNCTURE 02/24/2013 37987 GLUCOSE 02/24/2013 74629 LIPID PANEL 02/24/2013 04781 ROUTINE VENIPUNCTURE 03/21/2013 26875 A1C (IN-HOUSE) 03/21/2013 85188 URINE DRUG SCREEN (IN-HOUSE ) 03/21/2013 67777 FSH 03/21/2013 62729 LH 03/21/2013 45344 URINE DRUG SCREEN (IN-HOUSE ) 09/01/2013 Cardiolog Roni Anthony 11/07/2013 14821 ROUTINE VENIPUNCTURE 11/13/2013 62984 EKG, TRACING (IN-HOUSE) 11/13/2013 15574 URINE DRUG SCREEN (IN-HOUSE ) 11/13/2013 66011 CBC 11/13/2013 90672 CMP 11/13/2013 23558 LIPID PANEL 11/13/2013 43465 MAGNESIUM 11/13/2013 4034624 GFR CALC (RESULT ONLY) 11/13/2013 93692 TSH 11/13/2013 61714 URINE DRUG SCREEN (IN-HOUSE ) 12/25/2013 784214 [employer] DRUG SCREEN 03/09/2014 Results Test Result Range Complete blood count (CBC) with automated white blood cell (WBC) differential - 08/12/16 04:15 Blood leukocytes automated count (number/volume) 10.5 10*3/uL 4.3-11.0 Blood erythrocytes automated count (number/volume) 4.91 10*6/uL 4.35-5.85 Venous blood hemoglobin measurement (mass/volume) 15.7 [...] Automated blood platelet mean volume measurement 9.3 [foz_us] 7.4-10.4 Automated blood neutrophils/100 leukocytes 65 % [...] Serum or plasma sodium measurement (moles/volume) 137 mmol/L 135-145 Serum or plasma potassium measurement (moles/volume) 3.5 mmol/L 3.6-5.0 Serum or plasma chloride measurement (moles/volume) 106 mmol/L 98-107 Carbon dioxide 18 mmol/L 21-32 Serum or plasma anion gap determination (moles/volume) 13 mmol/L 5-14 Serum or plasma urea nitrogen measurement (mass/volume) 10 mg/dL 7-18 Serum or plasma creatinine measurement (mass/volume) 0.75 mg/dL 0.60-1.30 Serum or plasma urea nitrogen/creatinine mass [...] or plasma troponin i.cardiac measurement (mass/volume) < ng/ mL <0.30 Myoglobin, serum - 08/12/16 04:15 Myoglobin, serum 22.6 ng/mL 10.0-92.0 Complete urinalysis with reflex to culture - 08/12/16 04:23 Urine color determination YELLOW NRG Urine clarity determination CLEAR NRG Urine pH measurement by test strip 6 5-9 Specific gravity of urine by test strip 1.015 1.016- 1.022 Urine protein assay by test strip, semi-quantitative [...] Urine pH measurement by test strip 7 5-9 Specific gravity of urine by test strip 1.010 1.016- 1.022 Urine protein assay by test strip, semi-quantitative [...] 19:55 Blood leukocytes automated count (number/volume) 6.9 10*3/uL 4.3-11.0 Blood erythrocytes automated count (number/volume) 4.88 10*6/uL 4.35-5.85 Venous blood hemoglobin measurement (mass/volume) 15.6 [...] Automated blood platelet mean volume measurement 9.5 [foz_us] 7.4-10.4 Automated blood neutrophils/100 leukocytes 77 % [...] Serum or plasma sodium measurement (moles/volume) 138 mmol/L 135-145 Serum or plasma potassium measurement (moles/volume) 4.0 mmol/L 3.6-5.0 Serum or plasma chloride measurement (moles/volume) 104 mmol/L 98-107 Carbon dioxide 24 mmol/L 21-32 Serum or plasma anion gap determination (moles/volume) 10 mmol/L 5-14 Serum or plasma urea nitrogen measurement (mass/volume) 9 mg/dL 7-18 Serum or plasma creatinine measurement (mass/volume) 0.96 mg/dL 0.60-1.30 Serum or plasma urea nitrogen/creatinine mass [...] or plasma troponin i.cardiac measurement (mass/volume) < ng/ mL <0.30 Serum or plasma lithium measurement (moles/volume) [...] Hepatitis A virus IgM antibody assay Non-Reactive Non- Reactive Hepatitis B virus core IgM antibody assay Non-Reactive Non-Reactive Serum hepatitis C virus antibody detection Non-Reactive Non-Reactive Complete blood count (CBC) with automated white blood cell (WBC) differential - 10/29/16 21:10 Blood leukocytes automated count (number/volume) 12.1 10*3/uL 4.3-11.0 Blood erythrocytes automated count (number/volume) 4.57 10*6/uL 4.35-5.85 Venous blood hemoglobin measurement (mass/volume) 14.7 [...] Automated blood platelet mean volume measurement 8.9 [foz_us] 7.4-10.4 Automated blood neutrophils/100 leukocytes 77 % [...] Serum or plasma sodium measurement (moles/volume) 138 mmol/L 135-145 Serum or plasma potassium measurement (moles/volume) 3.7 mmol/L 3.6-5.0 Serum or plasma chloride measurement (moles/volume) 105 mmol/L 98-107 Carbon dioxide 19 mmol/L 21-32 Serum or plasma anion gap determination (moles/volume) 14 mmol/L 5-14 Serum or plasma urea nitrogen measurement (mass/volume) 11 mg/dL 7-18 Serum or plasma creatinine measurement (mass/volume) 0.78 mg/dL 0.60-1.30 Serum or plasma urea nitrogen/creatinine mass [...] or plasma troponin i.cardiac measurement (mass/volume) < ng/ mL <0.30 Myoglobin, serum - 10/29/16 21:10 Myoglobin, serum 78.0 ng/mL 10.0-92.0 Complete blood count (CBC) with automated white blood cell (WBC) differential - 12/18/16 18:29 Blood leukocytes automated count (number/volume) 7.1 10*3/uL 4.3-11.0 Blood erythrocytes automated count (number/volume) 4.62 10*6/uL 4.35-5.85 Venous blood hemoglobin measurement (mass/volume) 14.7 [...] Automated blood platelet mean volume measurement 9.3 [foz_us] 7.4-10.4 Automated blood neutrophils/100 leukocytes 69 % [...] 03:27 Blood leukocytes automated count (number/volume) 7.7 10*3/uL 4.3-11.0 Blood erythrocytes automated count (number/volume) 5.09 10*6/uL 4.35-5.85 Venous blood hemoglobin measurement (mass/volume) 16.3 [...] Automated blood platelet mean volume measurement 9.6 [foz_us] 7.4-10.4 Automated blood neutrophils/100 leukocytes 43 % [...] Serum or plasma sodium measurement (moles/volume) 137 mmol/L 135-145 Serum or plasma potassium measurement (moles/volume) 3.6 mmol/L 3.6-5.0 Serum or plasma chloride measurement (moles/volume) 104 mmol/L 98-107 Carbon dioxide 20 mmol/L 21-32 Serum or plasma anion gap determination (moles/volume) 13 mmol/L 5-14 Serum or plasma urea nitrogen measurement (mass/volume) 12 mg/dL 7-18 Serum or plasma creatinine measurement (mass/volume) 0.85 mg/dL 0.60-1.30 Serum or plasma urea nitrogen/creatinine mass [...] or plasma troponin i.cardiac measurement (mass/volume) < ng/ mL <0.30 Serum or plasma amylase measurement (enzymatic activity/volume) - 12/22/16 03: 27 Serum or plasma amylase measurement (enzymatic activity/volume) 43 U /L 25-125 Lipase - 12/22/16 03:27 Lipase 57 [...] 00:55 Blood leukocytes automated count (number/volume) 9.5 10*3/uL 4.3-11.0 Blood erythrocytes automated count (number/volume) 4.72 10*6/uL 4.35-5.85 Venous blood hemoglobin measurement (mass/volume) 14.9 [...] Automated blood platelet mean volume measurement 9.3 [foz_us] 7.4-10.4 Automated blood neutrophils/100 leukocytes 73 % [...] Serum or plasma sodium measurement (moles/volume) 138 mmol/L 135-145 Serum or plasma potassium measurement (moles/volume) 4.0 mmol/L 3.6-5.0 Serum or plasma chloride measurement (moles/volume) 105 mmol/L 98-107 Carbon dioxide 21 mmol/L 21-32 Serum or plasma anion gap determination (moles/volume) 12 mmol/L 5-14 Serum or plasma urea nitrogen measurement (mass/volume) 15 mg/dL 7-18 Serum or plasma creatinine measurement (mass/volume) 0.70 mg/dL 0.60-1.30 Serum or plasma urea nitrogen/creatinine mass [...] Serum or plasma sodium measurement (moles/volume) 139 mmol/L 135-145 Serum or plasma potassium measurement (moles/volume) 3.8 mmol/L 3.6-5.0 Serum or plasma chloride measurement (moles/volume) 105 mmol/L 98-107 Carbon dioxide 21 mmol/L 21-32 Serum or plasma anion gap determination (moles/volume) 13 mmol/L 5-14 Serum or plasma urea nitrogen measurement (mass/volume) 10 mg/dL 7-18 Serum or plasma creatinine measurement (mass/volume) 0.79 mg/dL 0.60-1.30 Serum or plasma urea nitrogen/creatinine mass [...] or plasma troponin i.cardiac measurement (mass/volume) < ng/ mL <0.30 Serum or plasma amylase measurement (enzymatic activity/volume) - 01/25/17 02: 13 Serum or plasma amylase measurement (enzymatic activity/volume) 35 U /L 25-125 Complete blood count (CBC) with automated white blood cell (WBC) differential - 01/25/17 02:13 Blood leukocytes automated count (number/volume) 10.8 10*3/uL 4.3-11.0 Blood erythrocytes automated count (number/volume) 4.87 10*6/uL 4.35-5.85 Venous blood hemoglobin measurement (mass/volume) 15.5 [...] Automated blood platelet mean volume measurement 9.1 [foz_us] 7.4-10.4 Automated blood neutrophils/100 leukocytes 65 % [...] 01:45 Blood leukocytes automated count (number/volume) 8.2 10*3/uL 4.3-11.0 Blood erythrocytes automated count (number/volume) 4.73 10*6/uL 4.35-5.85 Venous blood hemoglobin measurement (mass/volume) 14.9 [...] Automated blood platelet mean volume measurement 9.2 [foz_us] 7.4-10.4 Automated blood neutrophils/100 leukocytes 58 % [...] Serum or plasma sodium measurement (moles/volume) 139 mmol/L 135-145 Serum or plasma potassium measurement (moles/volume) 3.8 mmol/L 3.6-5.0 Serum or plasma chloride measurement (moles/volume) 104 mmol/L 98-107 Carbon dioxide 25 mmol/L 21-32 Serum or plasma anion gap determination (moles/volume) 10 mmol/L 5-14 Serum or plasma urea nitrogen measurement (mass/volume) 13 mg/dL 7-18 Serum or plasma creatinine measurement (mass/volume) 0.74 mg/dL 0.60-1.30 Serum or plasma urea nitrogen/creatinine mass [...] or plasma troponin i.cardiac measurement (mass/volume) < ng/ mL <0.30 Myoglobin, serum - 01/28/17 01:45 Myoglobin, serum 23.7 ng/mL 10.0-92.0 Lipase - 01/28/17 01:45 Lipase 38 U/L 8-78 Complete blood count (CBC) with automated white blood cell (WBC) differential - 10/19/17 16:45 Blood leukocytes automated count (number/volume) 9.3 10*3/uL 4.3-11.0 Blood erythrocytes automated count (number/volume) 4.60 10*6/uL 4.35-5.85 Venous blood hemoglobin measurement (mass/volume) 14.3 g/dL 11.5-16.0 Blood hematocrit (volume fraction) 41 % 35-52 Automated erythrocyte mean corpuscular volume 90 [foz_us] 80-99 Automated erythrocyte mean corpuscular hemoglobin (mass per erythrocyte) 31 pg 25-34 Automated erythrocyte mean corpuscular hemoglobin concentration measurement ( mass/volume) 35 g/dL 32-36 Automated erythrocyte distribution width ratio 12.5 % 10.0-14.5 Automated blood platelet count (count/volume) 259 10*3/uL 130-400 Automated blood platelet mean volume measurement 9.2 [foz_us] 7.4-10.4 Automated blood neutrophils/100 leukocytes 69 % 42-75 Automated blood lymphocytes/100 leukocytes 22 % 12-44 Blood monocytes/100 leukocytes 6 % 0-12 Automated blood eosinophils/100 leukocytes 3 % 0-10 Automated blood basophils/100 leukocytes 0 % 0-10 Blood neutrophils automated count (number/volume) 6.4 10*3 1.8-7.8 Blood lymphocytes automated count (number/volume) 2.1 10*3 1.0-4.0 Blood monocytes automated count (number/volume) 0.5 10*3 0.0-1.0 Automated eosinophil count 0.3 10*3/uL 0.0-0.3 Automated blood basophil count (count/volume) 0.0 10*3/uL 0.0-0.1 Comprehensive metabolic panel - 10/19/17 16:45 Serum or plasma sodium measurement (moles/volume) 138 mmol/L 135-145 Serum or plasma potassium measurement (moles/volume) 3.7 mmol/L 3.6-5.0 Serum or plasma chloride measurement (moles/volume) 105 mmol/L 98-107 Carbon dioxide 23 mmol/L 21-32 Serum or plasma anion gap determination (moles/volume) 10 mmol/L 5-14 Serum or plasma urea nitrogen measurement (mass/volume) 14 mg/dL 7-18 Serum or plasma creatinine measurement (mass/volume) 0.71 mg/dL 0.60-1.30 Serum or plasma urea nitrogen/creatinine mass ratio 20 NRG Serum or plasma creatinine measurement with calculation of estimated glomerular filtration rate > NRG Serum or plasma glucose measurement (mass/volume) 167 mg/dL 70-105 Serum or plasma calcium measurement (mass/volume) 9.5 mg/dL 8.5-10.1 Serum or plasma total bilirubin measurement (mass/volume) 0.4 mg/dL 0.1-1.0 Serum or plasma alkaline phosphatase measurement (enzymatic activity/volume) 115 U/L 40-136 Serum or plasma aspartate aminotransferase measurement (enzymatic activity/ volume) 27 U/L 5-34 Serum or plasma alanine aminotransferase measurement (enzymatic activity/volume ) 58 U/L 0-55 Serum or plasma protein measurement (mass/volume) 6.8 g/dL 6.4-8.2 Serum or plasma albumin measurement (mass/volume) 3.9 g/dL 3.2-4.5 Serum or plasma troponin i.cardiac measurement (mass/volume) - 10/19/17 16:45 Serum or plasma troponin i.cardiac measurement (mass/volume) < ng/ mL <0.30 Complete blood count (CBC) with automated white blood cell (WBC) differential - 11/27/17 20:45 Blood leukocytes automated count (number/volume) 8.0 10*3/uL 4.3-11.0 Blood erythrocytes automated count (number/volume) 4.93 10*6/uL 4.35-5.85 Venous blood hemoglobin measurement (mass/volume) 15.5 g/dL 11.5-16.0 Blood hematocrit (volume fraction) 44 % 35-52 Automated erythrocyte mean corpuscular volume 88 [foz_us] 80-99 Automated erythrocyte mean corpuscular hemoglobin (mass per erythrocyte) 31 pg 25-34 Automated erythrocyte mean corpuscular hemoglobin concentration measurement ( mass/volume) 36 g/dL 32-36 Automated erythrocyte distribution width ratio 12.3 % 10.0-14.5 Automated blood platelet count (count/volume) 262 10*3/uL 130-400 Automated blood platelet mean volume measurement 9.4 [foz_us] 7.4-10.4 Automated blood neutrophils/100 leukocytes 59 % 42-75 Automated blood lymphocytes/100 leukocytes 28 % 12-44 Blood monocytes/100 leukocytes 8 % 0-12 Automated blood eosinophils/100 leukocytes 5 % 0-10 Automated blood basophils/100 leukocytes 1 % 0-10 Blood neutrophils automated count (number/volume) 4.7 10*3 1.8-7.8 Blood lymphocytes automated count (number/volume) 2.2 10*3 1.0-4.0 Blood monocytes automated count (number/volume) 0.7 10*3 0.0-1.0 Automated eosinophil count 0.4 10*3/uL 0.0-0.3 Automated blood basophil count (count/volume) 0.0 10*3/uL 0.0-0.1 Comprehensive metabolic panel - 11/27/17 20:45 Serum or plasma sodium measurement (moles/volume) 142 mmol/L 135-145 Serum or plasma potassium measurement (moles/volume) 4.1 mmol/L 3.6-5.0 Serum or plasma chloride measurement (moles/volume) 105 mmol/L 98-107 Carbon dioxide 24 mmol/L 21-32 Serum or plasma anion gap determination (moles/volume) 13 mmol/L 5-14 Serum or plasma urea nitrogen measurement (mass/volume) 16 mg/dL 7-18 Serum or plasma creatinine measurement (mass/volume) 0.77 mg/dL 0.60-1.30 Serum or plasma urea nitrogen/creatinine mass ratio 21 NRG Serum or plasma creatinine measurement with calculation of estimated glomerular filtration rate > NRG Serum or plasma glucose measurement (mass/volume) 108 mg/dL 70-105 Serum or plasma calcium measurement (mass/volume) 9.7 mg/dL 8.5-10.1 Serum or plasma total bilirubin measurement (mass/volume) 0.6 mg/dL 0.1-1.0 Serum or plasma alkaline phosphatase measurement (enzymatic activity/volume) 128 U/L 40-136 Serum or plasma aspartate aminotransferase measurement (enzymatic activity/ volume) 38 U/L 5-34 Serum or plasma alanine aminotransferase measurement (enzymatic activity/volume ) 82 U/L 0-55 Serum or plasma protein measurement (mass/volume) 7.6 g/dL 6.4-8.2 Serum or plasma albumin measurement (mass/volume) 4.5 g/dL 3.2-4.5 Serum or plasma troponin i.cardiac measurement (mass/volume) - 11/27/17 20:45 Serum or plasma troponin i.cardiac measurement (mass/volume) < ng/ mL <0.30 Encounters ACCT No. Visit Date/Time Discharge Status Pt. Type Provider Facility Loc./Unit Complaint [id number] 03/09/2014 15:25:00 03/09/2014 23:59:59 [facility] Outpatient DENZEL CHILEL MD [id number] 12/25/2013 15:27:00 12/25/2013 23:59:59 [facility] Outpatient DENZEL CHILEL MD [id number] 12/25/2013 15:27:00 12/25/2013 23:59:59 MAKENNA Outpatient DENZEL CHILEL MD [id number] 11/13/2013 07:59:00 11/13/2013 23:59:59 CLS Outpatient DENZEL CHILEL MD [id number] 11/04/2013 16:08:00 11/04/2013 23:59:59 MAKENNA Outpatient DENZEL CHILEL MD [id number] 09/01/2013 14:25:00 09/01/2013 23:59:59 [facility] Outpatient DENZEL CHILEL MD [id number] 09/01/2013 14:25:00 09/01/2013 23:59:59 [facility] Outpatient DENZEL CHILEL MD [id number] 05/15/2013 11:35:00 05/15/2013 23:59:59 CLS Outpatient YOEL GREEN DO [id number] 01/21/2013 10:26:00 01/21/2013 23:59:59 MAKENNA Outpatient YOEL GREEN DO [id number] 01/02/2013 16:04:00 01/02/2013 23:59:59 MAKEN[facility] Outpatient DENZEL CHILEL MD [id number] 11/21/2012 10:28:00 11/21/2012 23:59:59 CLS Outpatient YOEL GREEN DO [id number] 10/22/2012 14:03:00 10/22/2012 23:59:59 CLS Outpatient DENZEL CHILEL MD [id number] 08/21/2012 11:41:00 08/21/2012 23:59:59 [place] [id number] 08/21/2012 11:41:00 08/21/2012 23:59:59 CLS Outpatient YOEL GREEN DO [id number] 04/23/2013 13:58:00 Document Registration [id number] 03/21/2013 15:05:00 Document Registration [id number] 02/24/2013 12:29:00 Document Registration [id number] 02/24/2013 12:29:00 Document Registration [id number] 11/27/2017 20:33:00 11/27/2017 21:35:00 DIS Emergency KRISTOPHER MILLER APRN [facility] ER HEARTBURN [id number] 11/06/2017 09:45:00 11/06/2017 23:59:59 CLS Preadmit ROMY PULIDO MD [facility] RAD R74.0 ELEVATED ALT MEASUREMENT [id number] 10/19/2017 16:32:00 10/19/2017 17:54:00 DIS Emergency KRISTOPHER MILLER APRN [facility] ER CHEST PAIN [id number] 10/12/2017 09:38:00 10/12/2017 23:59:59 CLS Outpatient ROMY PULIDO MD [facility] RAD CERVICAL DISC [id number] 10/03/2017 10:39:00 10/03/2017 10:39:00 CAN Preadmit ROMY PULIDO MD [facility] RAD Z12.39 SCREENING BREAST EXAMINATION [id number] 09/28/2017 09:48:00 09/28/2017 10:30:00 DIS Emergency KADIE LAUGHLIN DO [facility] ER CHEST WALL PAIN [id number] 03/04/2017 22:03:00 03/04/2017 23:45:00 DIS Emergency KADIE LAUGHLIN DO [facility] ER L ARM PAIN [id number] 02/06/2017 01:40:00 02/06/2017 01:40:00 CAN Preadmit GABRIELA PRYOR DO [facility] ER SALCIDO [id number] 02/02/2017 23:54:00 02/03/2017 00:16:00 DIS Emergency SHAILESH ORTIZ MD [facility] ER SHAKEY,TIRED,FLUSHED FACE [id number] 01/28/2017 01:24:00 01/28/2017 04:14:00 DIS Emergency SHAILESH ORTIZ MD [facility] ER CHEST PAIN [id number] 01/25/2017 02:04:00 01/25/2017 03:27:00 DIS Emergency TRUMAN DOKADIE [facility] ER ANXIETY [id number] 01/15/2017 00:15:00 01/15/2017 01:37:00 DIS Emergency MERON WEATHERS MD [facility] ER DIZZY BS HEART RATE [id number] 12/22/2016 03:27:00 12/22/2016 05:55:00 DIS Emergency TRUMANKADIE Rose DO [facility] ER CP/SOA [id number] 12/18/2016 16:58:00 12/18/2016 20:15:00 DIS Emergency ROYA GABRIELA GARCIA [facility] ER RATTLING IN CHEST WHEN BREATHING/SOB [id number] 10/29/2016 20:52:00 10/29/2016 22:41:00 DIS Emergency KRISTOPHER MILLER APRN [facility] ER SOA [id number] 10/11/2016 19:05:00 10/11/2016 21:17:00 DIS Emergency KADIE LAUGHLIN DO [facility] ER HEART PALPATATIONS [id number] 08/23/2016 10:30:00 08/23/2016 23:59:59 CLS Preadmit ROMY PULIDO MD [facility] CARD R00.2 PALPITATIONS [id number] 05/24/2016 09:14:00 08/22/2016 00:01:00 DIS Outpatient ROMY PULIDO MD [facility] CARD R00.2 PALPITATIONS [id number] 08/12/2016 03:58:00 08/12/2016 05:44:00 DIS Emergency BIG SANDY MD, MARIALUISA D [facility] ER TACHYCARDIA [id number] 06/07/2016 09:34:00 06/07/2016 23:59:59 CLS Outpatient DAMI VILLARREAL 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 [facility] RAD SCREENING [id number] 04/04/2016 10:45:00 04/13/2016 11:41:00 DIS Outpatient ROMY PULIDO MD [facility] REHAB CHRONIC LOW BACK PAIN [id number] 05/08/2015 14:42:00 05/08/2015 15:00:00 DIS Emergency 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 NOT SLEEPING [id number] 03/30/2015 09:00:00 03/30/2015 23:59:59 CLS Preadmit MUNIRA ADAMS FACCRONI FACP CCDS [facility] CATH PALPITATIONS FATIGUE [id number] 03/03/2015 21:04:00 03/03/2015 23:34:00 DIS Emergency GABRIELA PRYOR DO [facility] ER PALPITATIONS [id number] 05/02/2014 17:04:00 05/02/2014 20:31:00 DIS Emergency AMANDA ADAMS, MARIALUISA Gutierrez [facility] ER CHEST PAIN [id number] 04/17/2014 11:10:00 04/17/2014 14:10:00 DIS Emergency SHAILESH ORTIZ MD [facility] ER CHEST TIGHTNESS/IRR HEART RATE [id number] 02/01/2014 17:45:00 02/01/2014 19:57:00 DIS Emergency KADIE LAUGHLIN DO [facility] ER RAPID HEART BEAT [id number] 01/28/2014 13:43:00 01/28/2014 16:15:00 DIS Emergency KADIE LAUGHLIN DO [facility] ER HEART FLUTTERING/NOT SLEEPING [id number] 01/22/2014 15:07:00 01/22/2014 18:45:00 DIS Emergency AN LEE MD [facility] ER COUGH;CP [id number] 12/26/2013 08:13:00 12/26/2013 23:59:59 CLS Outpatient MUNIRA ADAMS FACC, RONI LAWLER CCDS [facility] CARD DYSPNEA,PALP, COPD,TOBACCO ABUSE [id number] 12/25/2013 07:01:00 12/25/2013 23:59:59 CLS Outpatient MUNIRA ADAMS FACC, RONI LAWLER CCDS [facility] RAD DYSPNEA,PALP, COPD,TOBACCO ABUSE [id number] 10/31/2013 01:42:00 10/31/2013 04:31:00 DIS Emergency [id number] 10/30/2013 04:29:00 10/30/2013 06:10:00 DIS Emergency [id number] 08/02/2013 20:20:00 08/02/2013 22:04:00 DIS Emergency SHAILESH ORTIZ MD [facility] ER PALPITATIONS [id number] 05/28/2013 04:10:00 05/28/2013 23:59:59 CLS Emergency [id number] 05/19/2013 20:49:00 05/19/2013 22:37:00 DIS Emergency [id number] 04/15/2013 08:15:00 04/15/2013 10:33:00 DIS Emergency [id number] 12/09/2017 22:21:00 ACT Emergency AMANDA ADAMS, MARIALUISA Gutierrez [facility] ER AB ISSUES
[2017-12-09 23:12] LABS: BASOPHILS % (AUTO) 0 % (0-10); EOSINOPHILS # (AUTO) 0.4 10^3/uL (0.0-0.3); EOSINOPHILS % (AUTO) 4 % (0-10); HEMATOCRIT 42 % (35-52); HEMOGLOBIN 14.8 G/DL (11.5-16.0); LYMPHOCYTES # (AUTO) 2.8 X 10^3 (1.0-4.0); LYMPHOCYTES % (AUTO) 28 % (12-44); MEAN CORPUSCULAR HEMOGLOBIN 32 PG (25-34); MEAN CORPUSCULAR HGB CONC 36 G/DL (32-36); MEAN CORPUSCULAR VOLUME 90 FL (80-99); MEAN PLATELET VOLUME 9.6 FL (7.4-10.4); MONOCYTES # (AUTO) 0.6 X 10^3 (0.0-1.0); MONOCYTES % (AUTO) 6 % (0-12); NEUTROPHILS # (AUTO) 6.1 X 10^3 (1.8-7.8); NEUTROPHILS % (AUTO) 61 % (42-75); PLATELET COUNT 249 10^3/uL (130-400); RED BLOOD COUNT 4.65 10^6/uL (4.35-5.85); RED CELL DISTRIBUTION WIDTH 12.5 % (10.0-14.5)
[2017-12-09 23:43] LABS: ALANINE AMINOTRANSFERASE 75 U/L (0-55); ALBUMIN 4.2 GM/DL (3.2-4.5); ALKALINE PHOSPHATASE 145 U/L (40-136); BILIRUBIN,TOTAL 0.5 MG/DL (0.1-1.0); BUN/CREATININE RATIO 18; CALCIUM 10.1 MG/DL (8.5-10.1); CARBON DIOXIDE 22 MMOL/L (21-32); CHLORIDE 103 MMOL/L (98-107); CREATININE SERUM 0.76 MG/DL (0.60-1.30); GFR ESTIMATED > 60; GLUCOSE 171 MG/DL (70-105); POTASSIUM 3.8 MMOL/L (3.6-5.0); SODIUM 139 MMOL/L (135-145); TOTAL PROTEIN 7.3 GM/DL (6.4-8.2)
[2017-12-10] MEDS ORDERED: NS IV 1000 ML 1,000 ML IV ONE (00:42)
--- NOTE | 2017-12-10 00:45 | ED GI ---
General Chief Complaint: Abdominal/GI Problems Stated Complaint: AB ISSUES Nursing Triage Note: Pt c/o swelling in abdomen over the last several days. Last BM today. Denies N/V. Sepsis Screen: No Definite Risk Source of Information: Patient Exam Limitations: No Limitations History of Present Illness Date Seen by Provider: Dec 10, 2017 Time Seen by Provider: 00:38 Initial Comments Here with report of swelling in her abdomen over the last several days. She was worried about constipation so she tried some laxatives and did have a bowel movement. States her belly seems to be increasing in size and that worried her so she came in by ambulance for evaluation. Denies any significant pain. Denies nausea or vomiting. Denies dysuria. Has history of elevated liver enzymes. Timing/Duration: 3-4 Days Severity/Quality: Moderate, Other (swelling) Location: Generalized Abdomen Radiation: No Radiation Activities at Onset: None Modifying Factors: Improves With Defecating Associated Symptoms: Denies Symptoms Allergies and Home Medications Allergies Coded Allergies: Sulfa (Sulfonamide Antibiotics) (Verified Allergy, Unknown, 04/18/06) hydrocodone (Verified Adverse Reaction, Unknown, SICK TO STOMACH, 02/02/14) Home Medications Metformin HCl 500 Mg Tab.er.24h, 500 MG PO DAILY, #30 (Reported) Rosuvastatin Calcium 10 Mg Tablet, 10 MG PO, (Reported) Review of Systems Constitutional: see HPI, No chills, No fever EENTM: No Symptoms Reported Respiratory: No Symptoms Reported Cardiovascular: No Symptoms Reported Gastrointestinal: See HPI, Abdomen Distended, Constipated, Denies Diarrhea, Denies Nausea, Denies Vomiting 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: No Symptoms Reported Musculoskeletal: no symptoms reported All Other Systems Reviewed Negative Unless Noted: Yes Past Adjrufd-Lpvdlj-Krlmdo Hx Patient Social History Alcohol Use: Denies Use Recreational Drug Use: No Drug of Choice: BENZODIAZEPINE ABUSE Smoking Status: Current Everyday Smoker Type Used: Cigarettes 2nd Hand Smoke Exposure: Yes Recent Foreign Travel: No Contact w/Someone Who Travel: No Recent Infectious Disease Expo: No Recent Hopitalizations: No Physical Abuse: No Sexual Abuse: No Mistreated: No Fear: No Immunizations Up To Date Tetanus Booster (TDap): Unknown Seasonal Allergies Seasonal Allergies: No Surgeries History of Surgeries: Yes Surgeries: Section, 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, Joint Replacement, Orthopedic Respiratory History of Respiratory Disorde: Yes Respiratory Disorders: COPD, Emphysema Cardiovascular History of Cardiac Disorders: Yes Cardiac Disorders: Hypertension, Palpitations Neurological History of Neurological Disord: Yes 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 System Hx 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 Disorders: No Sexually Transmitted Disease: No 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 History of 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 Disor: No Gastrointestinal History of Gastrointestinal Di: No Musculoskeletal History of Musculoskeletal Dis: Yes Musculoskeletal Disorders: Arthritis, Scoliosis, Chronic Back Pain, Fractures Endocrine History of Endocrine Disorders: Yes Endocrine Disorders: Diabetes, Non-Insulin dep HEENT History of HEENT Disorders: Yes (DENTURES) Cancer History of Cancer: No Psychosocial History of Psychiatric Problem: Yes Behavioral Health Disorders: Sleep Difficulties, Anxiety, Bipolar, Depression Suicide Risk Score: 1 Integumentary History of Skin or Integumenta: No Blood Transfusions History of Blood Disorders: No Adverse Reaction to a Blood Tr: No Reviewed Nursing Assessment Reviewed/Agree w Nursing PMH: Yes Family Medical History Significant Family History: No Pertinent Family Hx, Psychiatric Problems Physical Exam Vital Signs VS - Last 72 Hours, by Label 12/09/17 22:58 Temp 98.4 Pulse 96 Resp 18 B/P (MAP) 151/97 (115) Pulse Ox 98 O2 Delivery Room Air Capillary Refill : Less Than 3 Seconds General Appearance: WD/WN, no apparent distress HEENT: PERRL/EOMI, pharynx normal Neck: full range of motion, supple Respiratory: lungs clear, normal breath sounds Cardiovascular: regular rate, rhythm, no murmur Gastrointestinal: normal bowel sounds, non tender, soft, distended, No rebound Extremities: non-tender, normal inspection Back: normal inspection, no CVA tenderness, no vertebral tenderness Neurologic/Psychiatric: alert, oriented x 3 Skin: normal color, warm/dry Progress/Results/Core Measures Results/Orders Lab Results Laboratory Tests Test 12/09/17 22:25 12/10/17 01:30 Range/Units White Blood Count 10.0 4.3-11.0 10^3/uL Red Blood Count 4.65 4.35-5.85 10^6/uL Hemoglobin 14.8 11.5-16.0 G/DL Hematocrit 42 35-52 % Mean Corpuscular Volume 90 80-99 FL Mean Corpuscular Hemoglobin 32 25-34 PG Mean Corpuscular Hemoglobin Concent 36 32-36 G/DL Red Cell Distribution Width 12.5 10.0-14.5 % Platelet Count 249 130-400 10^3/uL Mean Platelet Volume 9.6 7.4-10.4 FL Neutrophils (%) (Auto) 61 42-75 % Lymphocytes (%) (Auto) 28 12-44 % Monocytes (%) (Auto) 6 0-12 % Eosinophils (%) (Auto) 4 0-10 % Basophils (%) (Auto) 0 0-10 % Neutrophils # (Auto) 6.1 1.8-7.8 X 10^3 Lymphocytes # (Auto) 2.8 1.0-4.0 X 10^3 Monocytes # (Auto) 0.6 0.0-1.0 X 10^3 Eosinophils # (Auto) 0.4 H 0.0-0.3 10^3/uL Basophils # (Auto) 0.0 0.0-0.1 10^3/uL Sodium Level 139 135-145 MMOL/L Potassium Level 3.8 3.6-5.0 MMOL/L Chloride Level 103 98-107 MMOL/L Carbon Dioxide Level 22 21-32 MMOL/L Anion Gap 14 5-14 MMOL/L Blood Urea Nitrogen 14 7-18 MG/DL Creatinine 0.76 0.60-1.30 MG/DL Estimat Glomerular Filtration Rate > 60 BUN/Creatinine Ratio 18 Glucose Level 171 H 70-105 MG/DL Calcium Level 10.1 8.5-10.1 MG/DL Total Bilirubin 0.5 0.1-1.0 MG/DL Aspartate Amino Transf (AST/SGOT) 37 H 5-34 U/L Alanine Aminotransferase (ALT/SGPT) 75 H 0-55 U/L Alkaline Phosphatase 145 H 40-136 U/L Total Protein 7.3 6.4-8.2 GM/DL Albumin 4.2 3.2-4.5 GM/DL Urine Color YELLOW Urine Clarity CLEAR Urine pH 6.5 5-9 Urine Specific Colbert 1.010 L 1.016-1.022 Urine Protein 1+ H NEGATIVE Urine Glucose (UA) NEGATIVE NEGATIVE Urine Ketones NEGATIVE NEGATIVE Urine Nitrite NEGATIVE NEGATIVE Urine Bilirubin NEGATIVE NEGATIVE Urine Urobilinogen NORMAL NORMAL MG/DL Urine Leukocyte Esterase NEGATIVE NEGATIVE Urine RBC (Auto) 1+ H NEGATIVE Urine RBC RARE /HPF Urine WBC NONE /HPF Urine Squamous Epithelial Cells 2-5 /HPF Urine Crystals NONE /LPF Urine Bacteria TRACE /HPF Urine Casts NONE /LPF Urine Mucus NEGATIVE /LPF Urine Culture Indicated NO My Orders Orders - MARIALUISA PATEL MD Cbc With Automated Diff (12/09/17 22:58) Comprehensive Metabolic Panel (12/09/17 22:58) Ua Culture If Indicated (12/09/17 22:58) Ct Abdomen/Pelvis W (12/10/17 00:42) Ns Iv 1000 Ml (Sodium Chloride 0.9%) (12/10/17 00:42) Iohexol Injection (Omnipaque 350 Mg/Ml 1 (12/10/17 01:00) Ns (Ivpb) (Sodium Chloride 0.9% Ivpb Bag (12/10/17 01:00) Ns (Ivpb) (Sodium Chloride 0.9%) (12/10/17 01:00) Pharmacy Communication (Pharmacy Communi (12/10/17 00:46) Medications Given in ED Current Medications Medications Dose Ordered Sig/George Route Start Time Stop Time Status Last Admin Dose Admin Iohexol 100 ml ONCE ONCE IV 12/10/17 01:00 12/10/17 01:01 DC 12/10/17 01:01 100 ML Sodium Chloride 250 ml ONCE ONCE IV 12/10/17 01:00 12/10/17 01:01 DC 12/10/17 01:01 80 ML Vital Signs/I&O Vital Sign - Last 12Hours 12/09/17 22:58 Temp 98.4 Pulse 96 Resp 18 B/P (MAP) 151/97 (115) Pulse Ox 98 O2 Delivery Room Air Blood Pressure Mean: 115 Progress Note : Progress Note Seen and evaluated. IV, labs, UA, normal saline 1 L bolus, CT and pelvis ordered. Monitor patient. Patient forgot to collect urine sample so UA delayed. Monitor patient. 0205: Tolerating by mouth fluids without difficulty. No acute findings on labs or CT scan of significance at this point. Patient to follow up with her doctor this week. Discharged home with return precautions. Patient verbalize understanding instructions and agreement with plan. Copy of chart to Dr. Cook. Diagnostic Imaging Diagonstic Imaging: CT Plain Films/CT/US/NM/MRI: abdomen, pelvis Comments No acute findings noted. Reviewed: Reviewed Night Hawk Study, Reviewed by Me Departure Impression Impression: Primary Impression: Abdominal distention Disposition: HOME, SELF-CARE Condition: Improved Departure-Patient Inst. Decision time for Depature: 02:10 Referrals: ROMY COOK MD (PCP/Family) Primary Care Physician Patient Instructions: Acute Abdomen (Belly Pain), Adult (DC) Add. Discharge Instructions: All discharge instructions reviewed with patient and/or family. Voiced understanding. Your distention may be bloating. No acute findings were noted on CT scan. Eat a light diet and drink plenty of fluids over the next few days. Do not use your metformin for 2 days [address] to the CT scan. You should reduce sugar carbohydrates to very minimum to help keep her blood sugar down. Follow-up with your doctor this week for recheck and further evaluation. Return for worse pain, fever, vomiting, weakness, breathing problems or other concerns as needed. Copy Copies To 1: ROMY COOK MD, TIMOTHY D MD Dec 10, 2017 00:45
[2017-12-10] MEDS ORDERED: IOHEXOL 350 MG/ML 100 ML (OMNIPAQUE 350) VIAL IV ONE (01:00)
[2017-12-10] MEDS ORDERED: NS 250 ML (IVPB) BAG IV ONE (01:00)
[2017-12-10] MEDS ORDERED: NS 100 ML (IVPB) BAG IV ONE (01:00)
[2017-12-10 01:44] LABS: BILIRUBIN,URINE NEGATIVE (NEGATIVE); CLARITY,URINE CLEAR; COLOR,URINE YELLOW; GLUCOSE, URINE (UA) NEGATIVE (NEGATIVE); KETONES,URINE NEGATIVE (NEGATIVE); LEUKOCYTE ESTERASE ,URINE NEGATIVE (NEGATIVE); NITRITE,URINE NEGATIVE (NEGATIVE); PH,URINE 6.5 (5-9); PROTEIN,URINE 1+ (NEGATIVE); UROBILINOGEN,URINE NORMAL (NORMAL)
[2017-12-10 01:45] LABS: BACTERIA,URINE TRACE /HPF; RBC,URINE RARE /HPF
[2017-12-10 02:15] VITALS: BP 151/97
--- NOTE | 2017-12-10 06:08 | Diagnostic Imaging Report ---
PROCEDURE: CT abdomen and pelvis with contrast. TECHNIQUE: Multiple contiguous axial images were obtained through the abdomen and pelvis after administration of intravenous contrast. INDICATION: Bloating and abdominal pain for 5 days. COMPARISON: None FINDINGS: The lung bases are clear. The heart is normal in size. There is no pericardial effusion. No focal hepatic lesion is seen. The spleen appears normal. The pancreas is normal. The adrenal glands and kidneys are unremarkable. There is no hydronephrosis. The bowel loops are nondistended, there is no evidence of obstruction. The appendix is normal. No free fluid or free air is seen. The bladder is decompressed. There is a right total hip arthroplasty. No acute osseous abnormality seen. IMPRESSION: 1. No acute abdominopelvic abnormality is seen. Dictated by: Dictated on workstation # [id number]
== END 2017-12-10 02:15 | disposition home or self-care (01) ==
LOC: EDUNIT# 22:20 → ER 22:21
DX: R14.0 Abdominal distension (gaseous) (principal); E11.9 Type 2 diabetes mellitus without complications; J43.9 Emphysema, unspecified; F41.9 Anxiety disorder, unspecified; F31.9 Bipolar disorder, unspecified; I10 Essential (primary) hypertension; F12.10 Cannabis abuse, uncomplicated; F17.210 Nicotine dependence, cigarettes, uncomplicated; Z88.2 Allergy status to sulfonamides; Z98.51 Tubal ligation status; Z87.59 Personal history of other complications of pregnancy, childbirth and the puerperium; Z90.710 Acquired absence of both cervix and uterus; Z88.5 Allergy status to narcotic agent; Z79.84 Long term (current) use of oral hypoglycemic drugs
CPT/HCPCS: 36415; 74177; 80053; 81000; 85025

== ENCOUNTER → 2017-12-20 | Outpatient (CLI) | payer MEDICARE, MEDICAID ==
--- NOTE | 2017-12-20 10:59 | Diagnostic Imaging Report ---
INDICATION: Elevated liver function tests and bloating. The pancreatic head and proximal body are unremarkable. The tail was not well visualized due to bowel gas. The liver is normal in size at 17.3 cm. There is some questionable increased echogenicity suggestive of hepatic steatosis. No discrete liver mass is identified. The gallbladder does contain a 2 cm stone. No wall thickening or pericholecystic fluid is identified. No definite biliary ductal dilatation is seen. The right kidney is unremarkable. There is no ascites. IMPRESSION: 1. Questionable hepatic steatosis. 2. Cholelithiasis without evidence of acute cholecystitis. Dictated by: Dictated on workstation # [id number]
== END ==
LOC: RAD 09:10
PROVIDERS: ATTEND Family Medicine
DX: K80.20 Calculus of gallbladder without cholecystitis without obstruction (principal)
CPT/HCPCS: 76705

== ENCOUNTER → 2017-12-26 | Outpatient (CLI) | payer MEDICARE, MEDICAID ==
[~2017-12-26] MED LIST changes: +NAPR-915 PO; -NAPR500T4 PO; +OXYC-197 PO
== END ==
LOC: PREOP 11:13
PROVIDERS: ATTEND Surgery
DX: Z01.818 Encounter for other preprocedural examination (principal); K80.20 Calculus of gallbladder without cholecystitis without obstruction

== ENCOUNTER 2017-12-27 09:44 | Day surgery (SDC) | payer MEDICARE, MEDICAID ==
[~2017-12-27] VITALS: Ht 157.5 cm; Wt 77.1 kg
[~2017-12-27 09:44] MED LIST changes: -OXYC-197 PO
--- OUTSIDE RECORDS SUMMARY | 2017-12-27 09:52 | XMS REPORT | Continuity of Care Document ---
Author Author [facility] Address Unknown Phone Unavailable Allergies Active Description Code Type Severity Reaction Onset Reported/Identified Relationship to Patient Clinical Status Yes Sulfa (Sulfonamide Antibiotics) [id number] Drug Allergy Unknown N/A 2005 Yes sulfa [...] Yes tramadol Drug Allergy 12/20/2010 Yes hydrocodone [id number] Drug Allergy Unknown SICK TO STOMACH 02/02/2014 [...] GETACHEW ADAMS, DENZEL 301.83 Pd Borderline 02/08/2009 GETAHCEW ADAMS, DENZEL 304.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 02/08/2009 [...] Heart Disease 08/05/2009 YOEL GREEN DO V72.31 Golf Sales Associate Exam, Routine 08/05/2009 YOEL GREEN DO V72.31 Golf Sales Associate Exam, Routine 08/05/2009 DENZEL CHILEL MD V72.31 Golf Sales Associate Exam, Routine 08/05/2009 YOEL GREEN DO V72.31 Golf Sales Associate Exam, Routine 08/05/2009 DENZEL CHILEL MD V72.31 Golf Sales Associate Exam, Routine 08/05/2009 YOEL GREEN DO V72.31 Golf Sales Associate Exam, Routine 08/05/2009 V72.31 Golf Sales Associate Exam, Routine 08/05/2009 V72.31 Golf Sales Associate Exam, Routine 08/05/2009 V72.31 Golf Sales Associate Exam, Routine 08/05/2009 V72.31 Golf Sales Associate Exam, Routine 08/05/2009 YOEL GREEN DO V72.31 Golf Sales Associate Exam, Routine 08/05/2009 GETACHEW ADAMS, DENZEL V72.31 Golf Sales Associate Exam, Routine 08/05/2009 GETACHEW ADAMS, DENZEL V72.31 Golf Sales Associate Exam, Routine 08/05/2009 GETACHEW ADAMS, DENZEL V72.31 Golf Sales Associate Exam, Routine 08/05/2009 GETACHEW ADAMS, DENZEL V72.31 Golf Sales Associate Exam, Routine 08/05/2009 GETACHEW ADAMS, DENZEL V72.31 Golf Sales Associate Exam, Routine 08/05/2009 GETACHEW ADAMS, DENZEL V72.31 Golf Sales Associate Exam, Routine 08/05/2009 GETACHEW ADAMS, DENZEL V72.31 Golf Sales Associate Exam, Routine 12/02/2009 YOEL GREEN DO 305.1 [...] GETACHEW ADAMS, DENZEL 724.5 Backache, Unspecified 02/15/2010 GETACHEW ADAMS, DENZEL Martinez.5 Backache, Unspecified 06/21/2010 YOEL GREEN DO 724.2 Lumbago/ Low Back Pain 06/21/2010 YOLE [...] 737.30 SCOLIOSIS ( AND KYPHOSCOLIOSIS) IDIOPATHIC 08/23/2010 YOEL GREEN DO 737.30 [...] 616.10 VAGINITIS AND VULVOVAGINITIS UNSPECIFIED 03/13/2011 GETACHEW ADASM, DENZEL 599.0 URINARY TRACT INFECTION SITE NOT [...] DO 599.0 Urinary Tract Infection 03/20/2012 GETACHEW DAAMS, DENZEL 599.0 Urinary Tract Infection 03/20/2012 YOEL [...] GETACHEW ADAMS, DENZEL 307.47 SI DYSSOMNIA NOS 07/05/2012 Ot 300.00 ANXIETY STATE NOS 07/05/2012 Ot 305.1 TOBACCO USE DISORDER 07/05/2012 Ot 311 DEPRESSIVE DISORDER NEC 07/05/2012 Ot 486 PNEUMONIA, ORGANISM NOS 07/05/2012 Ot 724.5 BACKACHE NOS 07/18/2012 YOEL GREEN DO 486 PNEUMONIA ORGANISM UNSPECIFIED 07/18/2012 OYEL GREEN DO 486 PNEUMONIA ORGANISM UNSPECIFIED 07/18/2012 [...] ADAMS, DENZEL 486 PNEUMONIA ORGANISM UNSPECIFIED 08/21/2012 YOEL GREEN DO F 298.9 P PSYCHOSIS NOS 08/21/2012 YOEL GREEN DO F 298.9 P PSYCHOSIS NOS 08/21/2012 DENZEL CHILEL MD 298.9 P PSYCHOSIS NOS 08/21/2012 YOEL GREEN DO F 298.9 P PSYCHOSIS NOS 08/21/2012 DENZEL CHILEL MD 298.9 P PSYCHOSIS NOS 08/21/2012 YOEL GREEN DO F 298.9 P PSYCHOSIS NOS 08/21/2012 298.9 [...] 10/22/2012 786.2 COUGH 10/22/2012 786.2 COUGH 10/22/2012 YOEL GREEN DO 786.2 COUGH 10/22/2012 GETACHEW ADAMS, DENZEL 786.2 [...] ADAMS, DENZEL 716.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 ARTHROPATHY SITE UNSPECIFIED 02/23/2013 Ot 300.00 ANXIETY STATE NOS 02/23/2013 Ot 465.9 ACUTE URI NOS 02/23/2013 Ot 786.05 SHORTNESS OF BREATH 02/24/2013 V58.69 MEDICATION HIGH RISK 02/24/2013 V58.69 MEDICATION HIGH RISK 02/24/2013 V58.69 MEDICATION HIGH RISK 02/24/2013 V58.69 MEDICATION HIGH RISK 02/24/2013 YOEL GREEN DO V58.69 MEDICATION HIGH RISK 02/24/2013 GETACHEW ADAMS, DENZEL V58.69 MEDICATION HIGH RISK 02/24/2013 GETACHEW ADAMS, DENZEL V58.69 MEDICATION HIGH RISK 02/24/2013 DENZEL CHILEL MD V58.69 MEDICATION HIGH RISK 02/24/2013 DENZEL CHILEL MD V58.69 MEDICATION HIGH RISK 02/24/2013 DENZEL CHILEL MD V58.69 MEDICATION HIGH RISK 02/24/2013 DENZEL CHILEL MD V58.69 MEDICATION HIGH RISK 02/24/2013 DENZEL CHILEL MD V58.69 MEDICATION HIGH RISK 03/21/2013 627.2 SYMPTOMATIC MENOPAUSAL OR FEMALE CLIMACTERIC STATES 03/21/2013 790.29 OTHER ABNORMAL GLUCOSE 03/21/2013 627.2 SYMPTOMATIC MENOPAUSAL OR FEMALE CLIMACTERIC STATES 03/21/2013 790.29 OTHER ABNORMAL GLUCOSE 03/21/2013 YOEL GREEN DO 627.2 SYMPTOMATIC MENOPAUSAL OR FEMALE CLIMACTERIC STATES 03/21/2013 YOEL GREEN DO 790.29 OTHER ABNORMAL GLUCOSE 03/21/2013 DENZEL CHILEL MD7.2 SYMPTOMATIC MENOPAUSAL OR FEMALE CLIMACTERIC STATES 03/21/2013 DENZEL CHILEL MD 790.29 OTHER ABNORMAL GLUCOSE 03/21/2013 DENZEL CHILEL MD.2 SYMPTOMATIC MENOPAUSAL OR FEMALE CLIMACTERIC STATES 03/21/2013 DENZEL CHILEL MD 790.29 OTHER ABNORMAL GLUCOSE 03/21/2013 DENZEL CHILEL MD.2 SYMPTOMATIC MENOPAUSAL OR FEMALE CLIMACTERIC STATES 03/21/2013 DENZEL CHILEL MD 790.29 OTHER ABNORMAL GLUCOSE 03/21/2013 DENZEL CHILEL MD7.2 SYMPTOMATIC MENOPAUSAL OR FEMALE CLIMACTERIC STATES 03/21/2013 [...] DENZEL CHILEL MD 790.29 OTHER ABNORMAL GLUCOSE 04/15/2013 DIANA ADAMS, SHAILESH Lyn Ot 311 DEPRESSIVE DISORDER NEC 04/15/2013 SHAILESH ORTIZ MD Ot 780.52 INSOMNIA, UNSPECIFIED 04/15/2013 HSAILESH ORTIZ MD Ot 791.9 ABN URINE FINDINGS NEC 04/15/2013 SHAILESH ORTIZ MD Ot V58.69 OTH MED,LT,CURRENT USE 04/15/2013 SHAILESH ORTIZ MD Ot V62.84 SUICIDAL IDEATION 05/19/2013 AMANDA ADAMS, MARIALUISA Gutierrez Ot 789.00 ABDOMINAL PAIN, UNSPECIFIED SITE 08/02/2013 SHAILESH ORTIZ MD Ot 276.8 HYPOPOTASSEMIA 08/02/2013 SHAILESH ORTIZ MD Ot 300.00 ANXIETY STATE NOS 08/02/2013 SHAILESH ORTIZ MD Ot 427.89 CARDIAC DYSRHYTHMIAS NEC 08/02/2013 SHAILESH ORTIZ MD Ot 785.1 PALPITATIONS 09/01/2013 DENZEL CHILEL MD 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 09/01/2013 GETACHEW ADAMS, DENZEL 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 09/01/2013 DENZEL CHILEL MD 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 09/01/2013 GETACHEW ADAMS, DENZEL 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 09/01/2013 GETACHEW ADAMS, DENZEL 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 09/01/2013 GETACHEW ADAMS, DENZEL 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 09/01/2013 GETACHEW ADAMS, DENZEL 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 10/30/2013 SHAILESH ORTIZ MD Ot 519.11 ACUTE BRONCHOSPASM 10/30/2013 SHAILESH ORTIZ MD Ot 786.50 CHEST PAIN NOS 10/30/2013 SHAILESH ORTIZ MD Ot 786.59 CHEST PAIN NEC 10/31/2013 SHAILESH ORTIZ MD Ot 305.1 TOBACCO USE DISORDER 10/31/2013 SHAILESH ORTIZ MD Ot 519.11 ACUTE BRONCHOSPASM 10/31/2013 SHAILESH ORTIZ MD Ot 786.59 CHEST PAIN NEC 12/24/2013 DENZEL CHILEL MD 305.1 TOBACCO ABUSE 12/24/2013 DENZEL CHILEL MD 496 COPD 12/24/2013 DENZEL CHILEL MD 785.1 PALPITATIONS 12/24/2013 GETACHEW ADAMS, DENZEL 786.09 DYSPNEA 12/24/2013 GETACHEW ADAMS, DENZEL 305.1 TOBACCO ABUSE 12/24/2013 DENZEL CHILEL MD 496 COPD 12/24/2013 GETACHEW ADAMS, DENZEL 785.1 PALPITATIONS 12/24/2013 GETACHEW ADAMS, DENZEL 786.09 DYSPNEA 12/24/2013 DENZEL CHILEL MD 305.1 TOBACCO ABUSE 12/24/2013 DENZEL CHILEL MD 496 COPD 12/24/2013 GETACHEW ADAMS, DENZEL 785.1 [...] I, REC EPIS (OR CURRENT) DEPRESSED 04/17/2014 DIANA AADMS, SHAILESH Lyn Ot 300.00 ANXIETY STATE NOS 04/17/2014 DIANA ADAMS, SHAILESH Lyn Ot 305.1 TOBACCO USE DISORDER 04/17/2014 SHAILESH ORTIZ MD Ot 333.94 RESTLESS LEGS SYNDROME 04/17/2014 DIANA ADAMS, SHAILESH Lyn Ot 716.90 ARTHROPATHY NOS-UNSPEC 04/17/2014 SHAILESH ORTIZ [...] FACP CCDS Ot 786.09 05/08/2015 MUNIRA ADAMS FAC, ALI FACP CCDS Ot 305.1 05/08/2015 MUNIRA ADAMS FAC, ALI FACP CCDS Ot 496 05/08/2015 MUNIRA ADAMS FAC, ALI FACP CCDS Ot 785.1 05/08/2015 MUNIRA ADAMS [facility], RONI FACP CCDS Ot 786.09 05/08/2015 KRISTOPHER MILLER TUMBLER PLATER Ot 780.52 INSOMNIA, UNSPECIFIED 05/08/2015 KRISTOPHER MILLER TUMBLER PLATER Ot V68.1 ISSUE REPEAT PRESCRIPT 02/25/2016 ROMY PULIDO MD Ot M54.5 LOW BACK PAIN 02/29/2016 ROMY PULIDO MD Ot M54.5 LOW BACK PAIN 03/30/2016 ROMY PULIDO MD Ot M54.5 LOW BACK PAIN 03/30/2016 ROMY PULIDO MD Ot M54.5 LOW BACK PAIN 04/06/2016 ROMY PULIDO MD Ot M54.5 LOW BACK PAIN 04/13/2016 ROMY PULIDO MD Ot M54.5 LOW BACK PAIN 05/24/2016 MUNIRA PULIDOC, RONI FACP CCDS Ot 305.1 TOBACCO USE DISORDER 05/24/2016 MUNIRA ADAMS FACC, RONI FACP CCDS Ot 496 CHR AIRWAY OBSTRUCT NEC 05/24/2016 MUNIRA PULIDOC, ALI FACP CCDS Ot 785.1 PALPITATIONS 05/24/2016 MUNIRA ADAMS FACC, ALI FACP CCDS Ot 786.09 RESPIRATORY ABNORM NEC 05/24/2016 MUNIRA PULIDOC, ALI FACP CCDS Ot 305.1 TOBACCO USE DISORDER 05/24/2016 MUNIRA PULIDOC, RONI FACP CCDS Ot 496 CHR AIRWAY OBSTRUCT NEC 05/24/2016 MUNIRA MD FACC, ALI FACP CCDS Ot 785.1 PALPITATIONS 05/24/2016 MUNIRA ADAMS FAC, ALI FACP CCDS Ot 786.09 RESPIRATORY ABNORM NEC 06/07/2016 DAMI VILLARREAL R CARD PLAYER Ot Z12.31 ENCNTR SCREEN MAMMOGRAM FOR MALIGNANT NE 06/08/2016 CHERELLE DAMI R CARD PLAYER Ot Z12.31 ENCNTR SCREEN MAMMOGRAM FOR MALIGNANT NE 06/15/2016 CHERELLE DAMI R CARD PLAYER Ot Z12.31 ENCNTR SCREEN MAMMOGRAM FOR MALIGNANT NE 06/16/2016 CHERELLE DAMI R CARD PLAYER Ot Z12.31 ENCNTR SCREEN MAMMOGRAM FOR MALIGNANT NE 06/16/2016 CHERELLE DAMI R CARD PLAYER Ot Z12.31 ENCNTR SCREEN MAMMOGRAM FOR MALIGNANT NE 06/16/2016 ROMY PULIDO MD Ot R00.2 PALPITATIONS 06/30/2016 DAMI VILLARREAL R CARD PLAYER Ot Z12.31 ENCNTR SCREEN MAMMOGRAM FOR MALIGNANT NE 07/04/2016 DAMI VILLARREAL R CARD PLAYER Ot Z12.31 ENCNTR SCREEN MAMMOGRAM FOR MALIGNANT NE 07/04/2016 ROMY PULIDO MD Ot R00.2 PALPITATIONS 07/07/2016 ROMY PULIDO MD Ot R00.2 PALPITATIONS 08/12/2016 MUNIRA ADAMS FAC, ALI FACP [...] Ot 785.1 PALPITATIONS 08/12/2016 MUNIRA ADAMS [facility], ALI FACP CCDS Ot 786.09 RESPIRATORY ABNORM NEC 08/12/2016 ROMY PULIDO MD N Ot R00.2 PALPITATIONS 08/12/2016 DAMI VILLARREAL R CARD PLAYER Ot Z12.31 ENCNTR SCREEN MAMMOGRAM FOR MALIGNANT NE 08/12/2016 MARIALUISA PATEL MD Ot F17.210 NICOTINE DEPENDENCE, CIGARETTES, UNCOMPL 08/12/2016 MARIALUISA PATEL MD Ot I47.9 PAROXYSMAL TACHYCARDIA, UNSPECIFIED 08/12/2016 MARIALUISA PATEL MD Ot R00.0 TACHYCARDIA, UNSPECIFIED 08/12/2016 MUNIRA ADAMS FACC, ALI FACP CCDS [...] CCDS Ot 786.09 RESPIRATORY ABNORM NEC 08/12/2016 ASHOK ADAMS, ROMY Huitron Ot R00.2 PALPITATIONS 08/12/2016 DAMI VILLARREAL CARD PLAYER Ot Z12.31 ENCNTR SCREEN MAMMOGRAM FOR MALIGNANT NE 08/15/2016 MARIALUISA PATEL MD Ot F17.210 NICOTINE DEPENDENCE, CIGARETTES, UNCOMPL 08/15/2016 MARIALUISA PATEL MD Ot I47.9 PAROXYSMAL TACHYCARDIA, UNSPECIFIED 08/15/2016 MARIALUISA PATEL MD Ot R00.0 TACHYCARDIA, UNSPECIFIED 08/16/2016 MUNIRA ADAMS FACC, ALI FACP CCDS Ot 305.1 TOBACCO USE DISORDER 08/16/2016 MUNIRA PULIDOC, ALI FACP CCDS Ot 496 [...] MD Ot R00.2 PALPITATIONS 10/11/2016 MUNIRA ADAMS FACRenny, ALI FACP CCDS Ot 305.1 TOBACCO USE DISORDER 10/11/2016 MUNIRA ADAMS FACC, ALI FACP CCDS Ot 496 CHR AIRWAY OBSTRUCT NEC 10/11/2016 MUNIRA ADAMS FACRenny, ALI FACP CCDS Ot 785.1 PALPITATIONS 10/11/2016 MUNIRA ADAMS FACC, ALI FACP CCDS Ot 786.09 RESPIRATORY ABNORM NEC 10/11/2016 MUNIRA ADAMS FACRenny, ALI FACP CCDS Ot 305.1 TOBACCO USE DISORDER 10/11/2016 MUNIRA ADAMS FACC, ALI FACP CCDS Ot 496 CHR AIRWAY OBSTRUCT NEC 10/11/2016 MUNIRA ADAMS FACC, ALI FACP CCDS Ot 785.1 PALPITATIONS 10/11/2016 MUNIRA ADAMS FACC, ALI FACP CCDS Ot 786.09 RESPIRATORY ABNORM NEC 10/11/2016 DAMI VILLARREAL CARD PLAYER Ot Z12.31 ENCNTR SCREEN MAMMOGRAM FOR MALIGNANT NE 10/11/2016 ROMY PULIDO MD Ot R00.2 PALPITATIONS 10/11/2016 KADIE LAUGHLNI DO Ot F17.210 NICOTINE DEPENDENCE, CIGARETTES, UNCOMPL 10/11/2016 KADIE LAUGHLIN DO Ot F41.9 ANXIETY DISORDER, UNSPECIFIED 10/11/2016 KADIE LAUGHLIN DO Ot J44.9 CHRONIC OBSTRUCTIVE PULMONARY DISEASE, U 10/11/2016 KADIE LAUGHLIN DO Ot R00.2 PALPITATIONS 10/11/2016 KADIE LAUGHLIN DO Ot Z79.899 OTHER [facility] (CURRENT) DRUG THERAPY 10/29/2016 KRISTOPHER MILLER TUMBLER PLATER Ot F17.210 NICOTINE DEPENDENCE, CIGARETTES, UNCOMPL 10/29/2016 KRISTOPHER MILLER TUMBLER PLATER Ot F41.9 ANXIETY DISORDER, UNSPECIFIED 10/29/2016 KRISTOPHER MILLER TUMBLER PLATER Ot R00.2 PALPITATIONS 10/29/2016 KRISTOPHER MILLER TUMBLER PLATER Ot R06.02 SHORTNESS OF BREATH 10/29/2016 KRISTOPHER MILLER TUMBLER PLATER Ot Z79.899 OTHER GRADES 1 THRU 6 HOME TEACHER (CURRENT) DRUG THERAPY 10/29/2016 MUNIRA ADAMS FACC, [...] 496 CHR AIRWAY OBSTRUCT NEC 10/29/2016 MUNIRA MD FACC, ALI FACP CCDS Ot 785.1 PALPITATIONS 10/29/2016 MUNIRA MD FACC, ALI FACP CCDS Ot 786.09 RESPIRATORY ABNORM NEC 10/29/2016 DAMI VILLARREAL CARD PLAYER Ot Z12.31 ENCNTR SCREEN MAMMOGRAM FOR MALIGNANT NE 10/29/2016 ASHOK ADAMS, ROMY Huitron Ot R00.2 PALPITATIONS 10/31/2016 KRISTOPHER MILLER TUMBLER PLATER Ot F17.210 NICOTINE DEPENDENCE, CIGARETTES, UNCOMPL 10/31/2016 KRISTOPHER MILLER TUMBLER PLATER Ot F41.9 ANXIETY DISORDER, UNSPECIFIED 10/31/2016 KRISTOPHER MILLER TUMBLER PLATER Ot R00.2 PALPITATIONS 10/31/2016 KIRSTOPHER MILLER TUMBLER PLATER Ot R06.02 SHORTNESS OF BREATH 10/31/2016 KRISTOPHER MILLER TUMBLER PLATER Ot Z79.899 OTHER [facility] (CURRENT) DRUG THERAPY 11/01/2016 KRISTOPHER MILLER TUMBLER PLATER Ot F17.210 NICOTINE DEPENDENCE, CIGARETTES, UNCOMPL 11/01/2016 KRISTOPHER MILLER TUMBLER PLATER Ot F41.9 ANXIETY DISORDER, UNSPECIFIED 11/01/2016 KRISTOPHER MILLER TUMBLER PLATER Ot R00.2 PALPITATIONS 11/01/2016 KRISTOPHER MILLER TUMBLER PLATER Ot R06.02 SHORTNESS OF BREATH 11/01/2016 KRISTOPHER MILLER TUMBLER PLATER Ot Z79.899 OTHER [facility] (CURRENT) DRUG THERAPY 12/18/2016 MUNIRA ADAMS FACC, [...] 786.09 RESPIRATORY ABNORM NEC 12/18/2016 DAMI VILLARREAL CARD PLAYER Ot Z12.31 ENCNTR SCREEN MAMMOGRAM FOR MALIGNANT [...] GABRIELA PRYOR DO Ot R05 COUGH 12/22/2016 JULI LAUGHLIN DOA Per Ot F17.210 NICOTINE DEPENDENCE, CIGARETTES, UNCOMPL 12/22/2016 KADEI LAUGHLIN DO Ot F41.9 ANXIETY DISORDER, UNSPECIFIED 12/22/2016 TRUMAN JULI GARCIAA K Ot I10 ESSENTIAL (PRIMARY) HYPERTENSION 12/22/2016 KADIE LAUGHLIN DO Ot J44.9 CHRONIC OBSTRUCTIVE PULMONARY DISEASE, U 12/22/2016 TRUMAN KADIE GARCIA K Ot R07.89 OTHER CHEST PAIN 12/22/2016 TRUMAN , KADIE K Ot R07.9 CHEST PAIN, UNSPECIFIED 12/24/2016 GABRIELA PRYOR DO Ot F17.210 NICOTINE DEPENDENCE, CIGARETTES, UNCOMPL 12/24/2016 GABRIELA PRYOR DO Ot J45.909 UNSPECIFIED ASTHMA, UNCOMPLICATED 12/24/2016 GABRIELA PRYOR DO Ot R05 COUGH 12/25/2016 JULI LAUGHLIN DOA Per Ot F17.210 NICOTINE DEPENDENCE, CIGARETTES, UNCOMPL 12/25/2016 KADIE LAUGHLIN DO Ot F41.9 ANXIETY DISORDER, UNSPECIFIED 12/25/2016 TRUMAN , KADIE K Ot I10 ESSENTIAL (PRIMARY) HYPERTENSION 12/25/2016 JULI LAUGHLIN DOA Per Ot J44.9 CHRONIC OBSTRUCTIVE PULMONARY DISEASE, U 12/25/2016 JULI LAUGHLIN DOA K Ot R07.89 OTHER CHEST PAIN 12/25/2016 TRUMAN GARCIA, KADIE K Ot R07.9 CHEST PAIN, UNSPECIFIED 01/15/2017 MUNIRA ADAMS FACC, ALI FACP CCDS Ot 305.1 TOBACCO USE DISORDER 01/15/2017 MUNIRA PULIDO, ALI FACP CCDS Ot 496 CHR AIRWAY OBSTRUCT NEC 01/15/2017 MUNIRA ADAMS FACC, ALI FACP CCDS Ot 785.1 PALPITATIONS 01/15/2017 MUNIRA ADAMS FACC, ALI FACP CCDS Ot 786.09 RESPIRATORY ABNORM NEC 01/15/2017 MUNIRA ADAMS FACC, ALI FACP CCDS Ot 305.1 TOBACCO USE DISORDER 01/15/2017 MUNIRA ADAMS FACC, ALI FACP CCDS Ot 496 CHR AIRWAY OBSTRUCT NEC 01/15/2017 MUNIRA ADAMS FACC, ALI FACP CCDS Ot 785.1 PALPITATIONS 01/15/2017 MUNIRA ADAMS FACC, ALI FACP CCDS Ot 786.09 RESPIRATORY ABNORM NEC 01/15/2017 CHERELLEDAMI CARD PLAYER Ot Z12.31 ENCNTR SCREEN MAMMOGRAM FOR MALIGNANT NE 01/15/2017 ASHOK ADAMS, ROMY Huitron Ot R00.2 PALPITATIONS 01/15/2017 JASIEL ADAMS, MERON A Ot E11.65 TYPE 2 DIABETES MELLITUS WITH HYPERGLYCE 01/15/2017 JASIEL ADAMS, MERON A Ot I10 ESSENTIAL (PRIMARY) HYPERTENSION 01/15/2017 MARYCHUY WEATHERS MDNT A Ot J44.9 CHRONIC OBSTRUCTIVE PULMONARY DISEASE, U 01/15/2017 JASIEL ADAMS MERON A Ot R42 DIZZINESS AND GIDDINESS 01/15/2017 JASIEL ADAMS MERON A Ot Z79.84 [facility] (CURRENT) USE OF ORAL HYPOGLYC 01/15/2017 JASIEL ADAMS MERON A Ot Z79.899 OTHER [facility] (CURRENT) DRUG THERAPY 01/16/2017 MARYCHUY WEATHERS MDNT A Ot E11.65 TYPE 2 DIABETES MELLITUS WITH HYPERGLYCE 01/16/2017 MERON WEATHERS MD A Ot I10 ESSENTIAL (PRIMARY) HYPERTENSION 01/16/2017 MARYCHUY WEATHERS MDNT A Ot J44.9 CHRONIC OBSTRUCTIVE PULMONARY DISEASE, U 01/16/2017 MERON WEATHERS MD A Ot R42 DIZZINESS AND GIDDINESS 01/16/2017 JASIEL ADAMS MERON A Ot Z79.84 GRADES 1 THRU 6 HOME TEACHER (CURRENT) USE OF ORAL HYPOGLYC 01/16/2017 JASIEL ADAMS MERON A Ot Z79.899 OTHER GRADES 1 THRU 6 HOME TEACHER (CURRENT) DRUG THERAPY 01/25/2017 TRUMAN DO, KADIE K Ot F17.210 [...] K Ot I10 ESSENTIAL (PRIMARY) HYPERTENSION 01/25/2017 KADIE LAUGHLIN DO Ot J44.9 CHRONIC OBSTRUCTIVE PULMONARY DISEASE, U 01/25/2017 KADIE LAUGHLIN DO Ot R07.89 OTHER CHEST PAIN 01/28/2017 SHAILESH ORTIZ MD Ot F17.210 NICOTINE DEPENDENCE, CIGARETTES, UNCOMPL 01/28/2017 SHAILESH ORTIZ MD Ot F41.9 ANXIETY DISORDER, UNSPECIFIED 01/28/2017 SHAILESH ORTIZ MD Ot I10 ESSENTIAL (PRIMARY) HYPERTENSION 01/28/2017 SHAILESH ORTIZ MD Ot J44.9 CHRONIC OBSTRUCTIVE PULMONARY DISEASE, U 01/28/2017 SHAILESH ORTIZ MD Ot R07.89 OTHER CHEST PAIN 01/28/2017 SHAILESH ORTIZ MD Ot R07.9 CHEST PAIN, UNSPECIFIED 01/28/2017 SHAILESH ORTIZ MD Ot R10.816 EPIGASTRIC ABDOMINAL TENDERNESS 01/29/2017 SHAILESH ORTIZ MD Ot F17.210 NICOTINE DEPENDENCE, CIGARETTES, UNCOMPL 01/29/2017 SHAILESH ORTIZ MD Ot F41.9 ANXIETY DISORDER, UNSPECIFIED 01/29/2017 SHAILESH ORTIZ MD Ot I10 ESSENTIAL (PRIMARY) HYPERTENSION 01/29/2017 SHAILESH ORTIZ MD Ot J44.9 CHRONIC OBSTRUCTIVE PULMONARY DISEASE, U 01/29/2017 SHAILESH ORTIZ MD Ot R07.89 [...] HEADACHE 02/03/2017 SHAILESH ORTIZ MD Ot Z79.84 [facility] (CURRENT) USE OF ORAL HYPOGLYC 02/03/2017 SHAILESH ORTIZ MD Ot Z79.899 OTHER [facility] (CURRENT) DRUG THERAPY 02/03/2017 SHAILESH ORTIZ MD [...] HEADACHE 02/05/2017 SHAILESH ORTIZ MD Ot Z79.84 GRADES 1 THRU 6 HOME TEACHER (CURRENT) USE OF ORAL HYPOGLYC 02/05/2017 SHAILESH ORTIZ MD Ot Z79.899 OTHER GRADES 1 THRU 6 HOME TEACHER (CURRENT) DRUG THERAPY 03/04/2017 KADIE LAUGHLIN DO Ot E11.9 TYPE 2 DIABETES MELLITUS WITHOUT COMPLIC 03/04/2017 JULI LAUGHLIN DOA K Ot F17.210 NICOTINE DEPENDENCE, CIGARETTES, UNCOMPL 03/04/2017 [...] J44.9 CHRONIC OBSTRUCTIVE PULMONARY DISEASE, U 04/27/2017 SHAILESH ORTIZ MD Ot R51 HEADACHE 04/27/2017 SHAILESH ORTIZ MD Ot Z79.84 GRADES 1 THRU 6 HOME TEACHER (CURRENT) USE OF ORAL HYPOGLYC 04/27/2017 SHAILESH ORTIZ MD Ot Z79.899 OTHER [facility] (CURRENT) DRUG THERAPY 09/28/2017 KADIE LAUGHLIN DO Ot E11.9 TYPE 2 DIABETES MELLITUS WITHOUT COMPLIC 09/28/2017 KADIE LAUGHLIN DO K Ot F17.210 NICOTINE DEPENDENCE, CIGARETTES, UNCOMPL 09/28/2017 KADIE LAUGHLIN DO Ot F31.9 BIPOLAR DISORDER, UNSPECIFIED 09/28/2017 KADIE LAUGHLIN DO Ot F41.9 ANXIETY DISORDER, UNSPECIFIED 09/28/2017 KADIE LAUGHLIN DO Ot I10 ESSENTIAL (PRIMARY) HYPERTENSION 09/28/2017 KADIE LAUGHLIN DO Ot J43.9 EMPHYSEMA, UNSPECIFIED 09/28/2017 KADIE LAUGHLIN DO Ot M41.9 SCOLIOSIS, UNSPECIFIED 09/28/2017 KADIE LAUGHLIN DO Ot N64.4 MASTODYNIA 09/28/2017 KADIE LAUGHLIN DO Ot Z79.84 [facility] (CURRENT) USE OF ORAL HYPOGLYC 09/28/2017 KADIE LAUGHLIN DO Ot Z87.59 PERSONAL HISTORY OF COMP OF PREG, CHLDBR 09/28/2017 TRUMAN GARCIA KADIE Albarado Ot Z90.711 ACQUIRED ABSENCE OF UTERUS WITH REMAININ 09/28/2017 TRUMAN GARCIA KADIE Albarado Ot Z96.641 PRESENCE OF RIGHT ARTIFICIAL HIP JOINT 10/09/2017 ASHOK ADAMS, ROMY Huitron Ot Z12.31 ENCNTR SCREEN MAMMOGRAM FOR MALIGNANT [...] SMO 10/19/2017 KRISTOPHER MILLER APRN Ot Z79.84 GRADES 1 THRU 6 HOME TEACHER (CURRENT) USE OF ORAL HYPOGLYC 10/19/2017 KRISTOPHER [...] SMO 11/27/2017 KRISTOPHER MILLER APRN Ot Z79.84 GRADES 1 THRU 6 HOME TEACHER (CURRENT) USE OF ORAL HYPOGLYC 11/27/2017 KRISTOPHER MILLER APRN Ot Z87.59 PERSONAL HISTORY OF COMP OF PREG, CHLDBR 11/27/2017 KRISTOPHER MILLER APRN Ot Z87.81 PERSONAL HISTORY OF (HEALED) TRAUMATIC F 11/27/2017 KRISTOPHER MILLER APRN Ot Z90.710 ACQUIRED ABSENCE OF BOTH CERVIX AND UTER 11/28/2017 DAMI VILLARREALP Ot Z12.31 ENCNTR SCREEN MAMMOGRAM FOR MALIGNANT NE 11/28/2017 ROMY PULIDO MD Ot R00.2 PALPITATIONS 11/28/2017 ROMY PULIDO MD Ot M48.02 SPINAL STENOSIS, CERVICAL REGION 11/28/2017 ROMY PULIDO MD N Ot M50.122 CERVICAL DISC DISORDER AT C5-C6 LEVEL [place] 11/28/2017 ROMY PULIDO MD N Ot N64.4 MASTODYNIA 11/29/2017 DAMI VILLARREAL CARD PLAYER Ot Z12.31 ENCNTR SCREEN MAMMOGRAM FOR MALIGNANT NE 11/29/2017 ROMY PULIDO MD Ot R00.2 PALPITATIONS 11/29/2017 ROMY PULIDO MD Ot M48.02 SPINAL STENOSIS, CERVICAL REGION 11/29/2017 ROMY PULIDO MD Ot M50.122 CERVICAL DISC DISORDER AT C5-C6 LEVEL [place] 11/29/2017 ROMY PULIDO MD N Ot N64.4 MASTODYNIA 11/29/2017 KRISTOPHER MILLER APRN [...] SMO 11/29/2017 KRISTOPHER MILLER APRN Ot Z79.84 GRADES 1 THRU 6 HOME TEACHER (CURRENT) USE OF ORAL HYPOGLYC 11/29/2017 KRISTOPHER MILLER APRN Ot Z87.59 PERSONAL HISTORY OF COMP OF PREG, CHLDBR 11/29/2017 KRISTOPHER MILLER APRN Ot Z87.81 PERSONAL HISTORY OF (HEALED) TRAUMATIC F 11/29/2017 KRISTOPHER MILLER APRN Ot Z90.710 ACQUIRED ABSENCE OF BOTH CERVIX AND UTER 12/09/2017 DAMI VILLARREAL CARD PLAYER Ot Z12.31 ENCNTR SCREEN MAMMOGRAM FOR MALIGNANT NE 12/09/2017 ROMY PULIDO MD Ot R00.2 PALPITATIONS 12/09/2017 ROMY PULIDO MD Ot M48.02 SPINAL STENOSIS, CERVICAL REGION 12/09/2017 ROMY PULIDO MD Ot M50.122 CERVICAL DISC DISORDER AT C5-C6 LEVEL [place] 12/09/2017 ROMY PULIDO MD Ot N64.4 MASTODYNIA 12/11/2017 MARIALUISA PATEL MD Ot E11.9 TYPE 2 DIABETES MELLITUS WITHOUT COMPLIC 12/11/2017 MARIALUISA PATEL MD Ot F12.10 CANNABIS ABUSE, UNCOMPLICATED 12/11/2017 MARIALUISA PATEL MD Ot F17.210 NICOTINE DEPENDENCE, CIGARETTES, UNCOMPL 12/11/2017 MARIALUISA PATEL MD Ot F31.9 BIPOLAR DISORDER, UNSPECIFIED 12/11/2017 MARIALUISA PATEL MD Ot F41.9 ANXIETY DISORDER, UNSPECIFIED 12/11/2017 MARIALUISA PATEL MD Ot I10 ESSENTIAL (PRIMARY) HYPERTENSION 12/11/2017 MARIALUISA PATEL MD Ot J43.9 EMPHYSEMA, UNSPECIFIED 12/11/2017 MARIALUISA PATEL MD Ot R14.0 ABDOMINAL DISTENSION (GASEOUS) 12/11/2017 MARIALUISA PATEL MD Ot R19.00 INTRA-ABD AND PELVIC SWELLING, MASS AND 12/11/2017 MARIALUISA PATEL MD Ot Z79.84 GRADES 1 THRU 6 HOME TEACHER (CURRENT) USE OF ORAL HYPOGLYC 12/11/2017 MARIALUISA PATEL MD Ot Z87.59 PERSONAL HISTORY OF COMP OF PREG, CHLDBR 12/11/2017 MARIALUISA PATEL MD Ot Z88.2 ALLERGY STATUS TO SULFONAMIDES STATUS 12/11/2017 MARIALUISA PATEL MD Ot Z88.5 ALLERGY STATUS TO NARCOTIC AGENT STATUS 12/11/2017 MARIALUISA PATEL MD Ot Z90.710 ACQUIRED ABSENCE OF BOTH CERVIX AND UTER 12/11/2017 MARIALUISA PATEL MD Ot Z98.51 TUBAL LIGATION STATUS Procedures Code [place] [address] URINE DRUG SCREEN (IN-HOUSE ) 10/22/2012 11905 ROUTINE VENIPUNCTURE 02/24/2013 12921 GLUCOSE 02/24/2013 02468 LIPID PANEL 02/24/2013 11188 ROUTINE VENIPUNCTURE 03/21/2013 16267 A1C (IN-HOUSE) 03/21/2013 44289 URINE DRUG SCREEN (IN-HOUSE ) 03/21/2013 25733 FSH 03/21/2013 21328 LH 03/21/2013 28363 URINE DRUG SCREEN (IN-HOUSE ) 09/01/2013 Cardiolog Roni Atnhony 11/07/2013 39919 ROUTINE VENIPUNCTURE 11/13/2013 32631 EKG, TRACING (IN-HOUSE) 11/13/2013 62181 URINE DRUG SCREEN (IN-HOUSE ) 11/13/2013 72179 CBC 11/13/2013 00993 CMP 11/13/2013 54917 LIPID PANEL 11/13/2013 58547 MAGNESIUM 11/13/2013 8816183 GFR CALC (RESULT ONLY) 11/13/2013 49083 TSH 11/13/2013 61388 URINE DRUG SCREEN (IN-HOUSE ) 12/25/2013 175593 [employer] DRUG SCREEN 03/09/2014 Results Test Result [...] automated white blood cell (WBC) differential - 12/09/17 22:25 Blood leukocytes automated count (number/volume) 10.0 10*3/uL 4.3-11.0 Blood erythrocytes automated count (number/volume) 4.65 10*6/uL 4.35-5.85 Venous blood hemoglobin measurement (mass/volume) 14.8 g/dL 11.5-16.0 Blood hematocrit (volume fraction) 42 % 35-52 Automated erythrocyte mean corpuscular volume 90 [foz_us] 80-99 Automated erythrocyte mean corpuscular hemoglobin (mass per erythrocyte) 32 pg 25-34 Automated erythrocyte mean corpuscular hemoglobin concentration measurement ( mass/volume) 36 g/dL 32-36 Automated erythrocyte distribution width ratio 12.5 % 10.0-14.5 Automated blood platelet count (count/volume) 249 10*3/uL 130-400 Automated blood platelet mean volume measurement 9.6 [foz_us] 7.4-10.4 Automated blood neutrophils/100 leukocytes 61 % 42-75 Automated blood lymphocytes/100 leukocytes 28 % 12-44 Blood monocytes/100 leukocytes 6 % 0-12 Automated blood eosinophils/100 leukocytes 4 % 0-10 Automated blood basophils/100 leukocytes 0 % 0-10 Blood neutrophils automated count (number/volume) 6.1 10*3 1.8-7.8 Blood lymphocytes automated count (number/volume) 2.8 10*3 1.0-4.0 Blood monocytes automated count (number/volume) 0.6 10*3 0.0-1.0 Automated eosinophil count 0.4 10*3/uL 0.0-0.3 Automated blood basophil count (count/volume) 0.0 10*3/uL 0.0-0.1 Comprehensive metabolic panel - 12/09/17 22:25 Serum or plasma sodium measurement (moles/volume) 139 mmol/L 135-145 Serum or plasma potassium measurement (moles/volume) 3.8 mmol/L 3.6-5.0 Serum or plasma chloride measurement (moles/volume) 103 mmol/L 98-107 Carbon dioxide 22 mmol/L 21-32 Serum or plasma anion gap determination (moles/volume) 14 mmol/L 5-14 Serum or plasma urea nitrogen measurement (mass/volume) 14 mg/dL 7-18 Serum or plasma creatinine measurement (mass/volume) 0.76 mg/dL 0.60-1.30 Serum or plasma urea nitrogen/creatinine mass ratio 18 NRG Serum or plasma creatinine measurement with calculation of estimated glomerular filtration rate > NRG Serum or plasma glucose measurement (mass/volume) 171 mg/dL 70-105 Serum or plasma calcium measurement (mass/volume) 10.1 mg/dL 8.5-10.1 Serum or plasma total bilirubin measurement (mass/volume) 0.5 mg/dL 0.1-1.0 Serum or plasma alkaline phosphatase measurement (enzymatic activity/volume) 145 U/L 40-136 Serum or plasma aspartate aminotransferase measurement (enzymatic activity/ volume) 37 U/L 5-34 Serum or plasma alanine aminotransferase measurement (enzymatic activity/volume ) 75 U/L 0-55 Serum or plasma protein measurement (mass/volume) 7.3 g/dL 6.4-8.2 Serum or plasma albumin measurement (mass/volume) 4.2 g/dL 3.2-4.5 Complete urinalysis with reflex to culture - 12/10/17 01:30 Urine color determination YELLOW NRG Urine clarity determination CLEAR NRG Urine pH measurement by test strip 6.5 5-9 Specific gravity of urine by test strip 1.010 1.016- 1.022 Urine protein assay by test strip, semi-quantitative 1+ NEGATIVE Urine glucose detection by automated test [...] erythrocyte count by microscopy (number/high power field) RARE NRG Automated urine sediment leukocyte count by microscopy (number/high power field ) NONE NRG Bacteria detection in urine sediment by light microscopy TRACE NRG Squamous epithelial cells detection in urine sediment by light microscopy 2-5 NRG Crystals detection in urine sediment by light microscopy NONE NRG Casts detection in urine sediment by light microscopy NONE NRG Mucus detection in urine sediment by light microscopy NEGATIVE NRG Complete urinalysis with reflex to culture NO NRG Encounters ACCT No. Visit Date/Time Discharge Status Pt. Type Provider Facility Loc./Unit Complaint [id number] 03/09/2014 15:25:00 03/09/2014 23:59:59 CLS Outpatient DENZEL CHILEL MD [id number] 12/25/2013 15:27:00 12/25/2013 23:59:59 MAKENNA Outpatient DENZEL CHILEL MD [id number] 12/25/2013 15:27:00 12/25/2013 23:59:59 MAKENNA Outpatient DENZEL CHILEL MD [id number] 11/13/2013 07:59:00 11/13/2013 23:59:59 CLS Outpatient DENZEL CHILEL MD [id number] 11/04/2013 16:08:00 11/04/2013 23:59:59 CLS Outpatient DENZEL CHILEL MD [id number] 09/01/2013 14:25:00 09/01/2013 23:59:59 CLS Outpatient DENZEL CHILEL MD [id number] 09/01/2013 14:25:00 09/01/2013 23:59:59 CLS Outpatient DENZEL CHILEL MD [id number] 05/15/2013 11:35:00 05/15/2013 23:59:59 CLS Outpatient NORMA GARCIA YOEL Caesar [id number] 01/21/2013 10:26:00 01/21/2013 23:59:59 CLS Outpatient NORMA GARCIA YOEL F [id number] 01/02/2013 16:04:00 01/02/2013 23:59:59 CLS Outpatient DENZEL CHILEL MD [id number] 11/21/2012 10:28:00 11/21/2012 23:59:59 CLS Outpatient NORMA GARCIA YOEL F [id number] 10/22/2012 14:03:00 10/22/2012 23:59:59 CLS Outpatient DENZEL CHILEL MD [id number] 08/21/2012 11:41:00 08/21/2012 23:59:59 CLS Outpatient NORMA GARCIA YOEL F [id number] 08/21/2012 11:41:00 08/21/2012 23:59:59 CLS Outpatient NORMA GARCIA YOEL Caesar [id number] 04/23/2013 13:58:00 Document Registration [id number] 03/21/2013 15:05:00 Document Registration [id number] 02/24/2013 12:29:00 Document Registration [id number] 02/24/2013 12:29:00 Document Registration [id number] 12/09/2017 22:21:00 12/10/2017 02:15:00 DIS Outpatient MARIALUISA PATEL MD [facility] ER AB ISSUES [id number] 11/27/2017 20:33:00 11/27/2017 21:35:00 DIS Emergency KRITSOPHER MILLER APRN [facility] ER HEARTBURN [id number] 11/06/2017 09:45:00 11/06/2017 23:59:59 CLS Preadmit ASHOK ADAMS, ROMY Huitron [facility] RAD R74.0 ELEVATED ALT MEASUREMENT [id number] 10/19/2017 16:32:00 10/19/2017 17:54:00 DIS Emergency KRISTOPHER MILLER APRN [facility] ER CHEST PAIN [id number] 10/12/2017 09:38:00 10/12/2017 23:59:59 CLS Outpatient ROMY PULIDO MD [facility] RAD CERVICAL DISC [id number] 10/03/2017 10:39:00 10/03/2017 10:39:00 CAN Preadmit ROMY PULIDO MD [facility] RAD Z12.39 SCREENING BREAST EXAMINATION [id number] 09/28/2017 09:48:00 09/28/2017 10:30:00 DIS Emergency KADIE LAUGHLIN DO [facility] ER CHEST WALL PAIN [id number] 03/04/2017 22:03:00 03/04/2017 23:45:00 DIS Emergency KADIE LAUGHLIN DO [facility] ER L ARM PAIN [id number] 02/06/2017 01:40:00 02/06/2017 01:40:00 CAN Preadmit GABRIELA PRYOR DO [facility] ER SALCIDO [id number] 02/02/2017 23:54:00 02/03/2017 00:16:00 DIS Emergency SHAILESH ORTIZ MD [facility] ER SHAKEY,TIRED,FLUSHED FACE [id number] 01/28/2017 01:24:00 01/28/2017 04:14:00 DIS Emergency SHAILESH ORTIZ MD [facility] ER CHEST PAIN [id number] 01/25/2017 02:04:00 01/25/2017 03:27:00 DIS Emergency KADIE LAUGHLIN DO [facility] ER ANXIETY [id number] 01/15/2017 00:15:00 01/15/2017 01:37:00 DIS Emergency MERON WEATHERS MD [facility] ER DIZZY BS HEART RATE [id number] 12/22/2016 03:27:00 12/22/2016 05:55:00 DIS Emergency KADIE LAUGHLIN DO [facility] ER CP/SOA [id number] 12/18/2016 16:58:00 12/18/2016 20:15:00 DIS Emergency ROYA DO, GABRIELA D [facility] ER RATTLING IN CHEST WHEN BREATHING/SOB [id number] 10/29/2016 20:52:00 10/29/2016 22:41:00 DIS Emergency KRISTOPHER MILLER APRN [facility] ER SOA [id number] 10/11/2016 19:05:00 10/11/2016 21:17:00 DIS Emergency TRUMAN DO KADIE Albarado [facility] ER HEART PALPATATIONS [id number] 08/23/2016 10:30:00 08/23/2016 23:59:59 CLS Preadmit ROMY PULIDO MD [facility] CARD R00.2 PALPITATIONS [id number] 05/24/2016 09:14:00 08/22/2016 00:01:00 DIS Outpatient ROMY PULIDO MD [facility] CARD R00.2 PALPITATIONS [id number] 08/12/2016 03:58:00 08/12/2016 05:44:00 DIS Emergency MARIALUISA PATEL MD [facility] ER TACHYCARDIA [id number] 06/07/2016 09:34:00 06/07/2016 23:59:59 CLS Outpatient DAMI VILLARREAL CARD PLAYER [facility] RAD SCREENING [id number] 04/04/2016 10:45:00 04/13/2016 11:41:00 DIS Outpatient ROMY PULIDO MD [facility] REHAB CHRONIC LOW BACK PAIN [id number] 05/08/2015 14:42:00 05/08/2015 15:00:00 DIS Emergency KRISTOPHER MILLER APRN [facility] ER NOT SLEEPING [id number] 03/30/2015 09:00:00 03/30/2015 23:59:59 CLS Preadmit MUNIRA ADAMS FACCRONI FACP CCDS [facility] CATH PALPITATIONS FATIGUE [id number] 03/03/2015 21:04:00 03/03/2015 23:34:00 DIS Emergency GABRIELA PRYOR DO [facility] ER PALPITATIONS [id number] 05/02/2014 17:04:00 05/02/2014 20:31:00 DIS Emergency MARIALUISA PATEL MD [facility] ER CHEST PAIN [id number] 04/17/2014 11:10:00 04/17/2014 14:10:00 DIS Emergency SHAILESH ORTIZ MD [facility] ER CHEST TIGHTNESS/IRR HEART RATE [id number] 02/01/2014 17:45:00 02/01/2014 19:57:00 DIS Emergency KADIE LAUGHLIN DO [facility] ER RAPID HEART BEAT [id number] 01/28/2014 13:43:00 01/28/2014 16:15:00 DIS Emergency KADIE LAUGHLIN DO K [facility] ER HEART FLUTTERING/NOT SLEEPING [id number] 01/22/2014 15:07:00 01/22/2014 18:45:00 DIS Emergency AN LEE MD [facility] ER COUGH;CP [id number] 12/26/2013 08:13:00 12/26/2013 23:59:59 CLS Outpatient MUNIRA ADAMS FACC, ALI FACP CCDS [facility] CARD DYSPNEA,PALP, COPD,TOBACCO ABUSE [id number] 12/25/2013 07:01:00 12/25/2013 23:59:59 CLS Outpatient MUNIRA ADAMS FACC, ALI FACP CCDS [facility] RAD DYSPNEA,PALP, COPD,TOBACCO ABUSE [id number] 10/31/2013 01:42:00 10/31/2013 04:31:00 DIS Emergency SHAILESH ORTIZ MD [facility] ER CHEST PAIN,SOB, DIARRHEA [id number] 10/30/2013 04:29:00 10/30/2013 06:10:00 DIS Emergency SHAILESH ORTIZ MD [facility] ER CHEST PAIN [id number] 08/02/2013 20:20:00 08/02/2013 22:04:00 DIS Emergency SHAILESH ORTIZ MD [facility] ER PALPITATIONS [id number] 05/28/2013 04:10:00 05/28/2013 23:59:59 CLS Emergency [id number] 05/19/2013 20:49:00 05/19/2013 22:37:00 DIS Emergency AMANDA ADAMS, MARIALUISA Gutierrez [facility] ER ABD PAIN [id number] 04/15/2013 08:15:00 04/15/2013 10:33:00 DIS Emergency DIANA ADAMS, SHAILESH Lyn [facility] ER HEART PALPATATIONS AND DIARRHEA [id number] 02/23/2013 18:29:00 Document Registration [id number] 07/02/2012 15:52:00 Document Registration
--- NOTE | 2017-12-27 10:07 | Progress Note-Pre Operative ---
Pre-Operative Progress Note H&P Reviewed The H&P was reviewed, patient examined and no changes noted. Date Seen by Provider: Dec 27, 2017 Time Seen by Provider: 10:00 Date H&P Reviewed: Dec 27, 2017 Time H&P Reviewed: 10:00 Pre-Operative Diagnosis: chronic symptomatic cholelithiasis. JENNIFER GARCIA MD Dec 27, 2017 10:07 am
[2017-12-27] MEDS ORDERED: ACETAMINOPHEN 325 MG TABLET/CAPLET (TYLENOL) PO PRN (10:15)
[2017-12-27] MEDS ORDERED: oxyCODONE/APAP 5/325MG (PERCOCET 5) TABLET PO PRN (10:15)
[2017-12-27] MEDS ORDERED: ONDANSETRON 4 MG/2 ML (SDV) Z0FRAN IVP PRN ×2 (10:15→14:45)
[2017-12-27] MEDS ORDERED: morphine INJ 10 MG/ML 1ML (SYR OR VIAL) IVP PRN (10:15)
[2017-12-27 10:20] VITALS: BP 120/73
[2017-12-27] MEDS ORDERED: ceFAZolin 1 GM/NS 50 ML IVPB IV ONE ×2 (10:45)
[2017-12-27] MEDS ORDERED: CATHETER FLUSH 10 ML SYR IV PRN (10:45)
[2017-12-27] MEDS ORDERED: NS (IVPB) 50 ML ONE (10:55)
[2017-12-27] MEDS ORDERED: ceFAZolin 1,000 MG (ANCEF) VIAL ONE (10:55)
[2017-12-27] MEDS ORDERED: LACTATED RINGERS 1,000 ML IV PRN (11:52)
[2017-12-27] MEDS ORDERED: proPOfol 200 MG/20 ML (DIPRIVAN) VIAL IV ONE (11:58)
[2017-12-27] MEDS ORDERED: LIDOCAINE PF 2% 5 ML (XYLOCAINE) VIAL ONE (11:58)
[2017-12-27] MEDS ORDERED: ONDANSETRON 4 MG/2 ML (SDV) Z0FRAN ONE (11:58)
[2017-12-27] MEDS ORDERED: SEVOFLURANE (ULTANE) 15 ML INHAL SOLN ONE ×3 (11:58→14:23)
[2017-12-27] MEDS ORDERED: ROCURONIUM 50 MG/5 ML (ZEMURON) VIAL IV ONE (11:58)
[2017-12-27] MEDS ORDERED: MIDAZOLAM 2 MG/2 ML (VERSED) VIAL ONE (11:59)
[2017-12-27] MEDS ORDERED: fentaNYL INJECTION 100 MCG/2 ML AMP ONE ×2 (11:59→14:17)
[2017-12-27] MEDS ORDERED: BUP/EPI 0.5% 1:200,000 (SENSORCAINE) 30 ML VIAL ONE (12:07)
[2017-12-27] MEDS ORDERED: GLYCOPYRROLATE 0.2 MG/ML (ROBINUL) 2 ML VIAL ONE (14:12)
[2017-12-27] MEDS ORDERED: NEOSTIGMINE (BLOXIVERZ ) 1 MG/1ML 10 ML VIAL ONE (14:12)
--- NOTE | 2017-12-27 14:25 | Progress Note-Post Operative ---
Post-Operative Progess Note Surgeon (s)/Tax Form Preparer (s) Surgeon JENNIFER GARCIA MD Tax Form Preparer: gisela santiago APRN Pre-Operative Diagnosis chronic symptomatic cholelithiasis. Post-Operative Diagnosis same Procedure & Operative Findings Date of Procedure 12/27/17 Procedure Performed/Findings laparoscopic cholecystectomy Anesthesia Type GET Estimated Blood Loss Estimated blood loss (mL): minimal Specimens/Packing Specimens Removed gallbladder JENNIFER GARCIA MD Dec 27, 2017 2:25 pm
[2017-12-27] MEDS ORDERED: OXYC-197 PO ×2 (14:27)
--- NOTE | 2017-12-27 14:28 | Discharge Inst-Surgical ---
D/C Lap Instructions-RADHA New, Converted, or Re-Newed RX: RX on Chart Follow Up Appt in 2 weeks Activity as tolerated No driving for 24 hours No driving while on pain medications Incentive Spirometry use every 2 hours while awake Regular Diet Symptoms to Report: Fever over 101 degree F, Nausea/Vomiting Infection Signs and Symptoms to report: Increased redness, Foul odor of wound, Increased drainage Bathing instructions: May shower Operative Area Clean/Dry; Keep incision clean/dry If any problems/questions: Contact your physician or go to Emergency Room JENNIFER GARCIA MD Dec 27, 2017 2:28 pm
[2017-12-27] MEDS ORDERED: HYDROmorphone (DILAUDID) 2 MG/ML VIAL IVP PRN (14:45)
[2017-12-27] MEDS: morphine INJ 10 MG/ML 1ML (SYR OR VIAL) IVP PRN ×2 (14:52→14:57)
[2017-12-27 15:35] VITALS: BP 118/78
[2017-12-27 15:36] VITALS: BP 118/78
[2017-12-27 16:05] VITALS: BP 122/80
[2017-12-27 16:35] VITALS: BP 129/83
--- NOTE | 2017-12-27 16:50 | Anesthesia-General Post-Op ---
General Patient Condition Mental Status/LOC: Same as Preop Cardiovascular: Satisfactory Nausea/Vomiting: Present Respiratory: Satisfactory Pain: Controlled Complications: Absent Post Op Complications Complications None Follow Up Care/Instructions Patient Instructions None needed. Anesthesia/Patient Condition Patient Condition Initial followup with patient in day surgery @ 1600. Pt reports still having excessive abdominal pain, and nauseated. Currently, eating a saltine cracker and drinking a Sprite. Spoke to nursing staff, who is going to administer PO pain medication in a few minutes if patient tolerates food/drink. @1635 : Pt dressed and getting in wheelchair for discharge. Able to take PO medication, and nausea has improved "some" since oral intake. D/C home per [facility] [place] Criteria: Yes GLORIA WOODRUFF CRNA Dec 27, 2017 16:50
--- NOTE | 2017-12-27 20:24 | OPERATIVE REPORT ---
DATE OF SERVICE: 12/27/2017 ATTENDING AND PRIMARY CARE PHYSICIAN: Mita Cook MD. PREOPERATIVE DIAGNOSIS: Chronic calculous cholecystitis. POSTOPERATIVE DIAGNOSIS: Chronic calculous cholecystitis. PROCEDURE PERFORMED: Laparoscopic cholecystectomy. SURGEON: Jennifer Garcia MD. MOOSE HUNTER: Aristides Pandya APRN. ANESTHESIA: General endotracheal. ESTIMATED BLOOD LOSS: 100 mL. FINDINGS: Mild to moderate liver steatosis and hepatomegaly, solitary large gallstone. DISPOSITION: The patient tolerated the procedure well. INDICATIONS: The patient is a 52-year-old female with right upper abdominal quadrant pain for the past 2 months. She states the pain is sharp in nature and will be crampy as well as sharp and then she will also notice some radiation towards the back. She does report associated nausea; however, no vomiting. She underwent an ultrasound which did show liver steatosis as well as cholelithiasis. DESCRIPTION OF PROCEDURE: The patient was brought to the operating room, laid supine on the table. After adequate IV pain and sedative medications and general endotracheal intubation, the abdomen was prepped and draped in standard surgical fashion. Marcaine 0.5% with epinephrine was used to anesthetize the overlying skin in the left upper abdominal quadrant. A small transverse skin incision made using a 15 blade. An 0 silk suture was applied to the medial aspect of the incision for retraction and a Veress needle inserted with a low opening pressure of 0 mmHg and the abdomen was then insufflated to 15 mmHg pressure. The Veress needle removed and a 5 mm Xcel trocar placed followed by a 5 mm 45-degree angle laparoscope visualizing the peritoneal cavity. A four-quadrant abdominal exploration was performed. There was mild to moderate liver steatosis as hepatomegaly. There was a distended gallbladder. Under direct visualization, we then proceeded to place a supraumbilical 10 mm port after the skin and peritoneal lining were anesthetized using 0.5% Marcaine with epinephrine and a transverse skin incision made using a 15 blade. In a similar manner, a right upper abdominal quadrant 5 mm port was placed. The patient was then placed in a reverse Trendelenburg position as well as placed right side up, left side down. The fundus of the gallbladder was then retracted anteriorly and superiorly. The hepatoduodenal ligament was then opened using electrocautery and hook instrument as well as blunt dissection. The entire critical view of safety was identified including the cystic duct and artery as the only two structures going into the gallbladder as well as the cystic plate behind the proximal gallbladder. A timeout was then taken and the cystic duct and artery were then clipped proximally, distally and cut with EndoShears. The gallbladder was then dissected off the liver bed using electrocautery on the hook instrument with visualization good hemostasis as well as no leaking ducts elicited. There was some venous oozing most likely from her liver steatosis, which was controlled with electrocautery; however, we decided to place a oxidized cellulose as well as FloSeal fibrin glue. Good hemostasis was observed. The gallbladder was removed through the 10 mm port site and examined on the back table with visualization of a large solitary gallstone. The 10 mm port site fascia and peritoneum were then closed under direct visualization using Brandon-Georgette device and 0 Vicryl suture. The abdomen was desufflated and remaining ports removed. All skin incisions were closed using 4-0 Monocryl running subcuticular sutures. Wounds were then cleaned and covered with Dermabond. The patient tolerated the procedure well. We will start IV and oral pain medication as well as a clear liquid diet. Once she is tolerating clears and has good pain control with oral pain medications and ambulating well, we will discharge her home. She will be instructed on no heavy lifting or exertion for the next 2 weeks. Job ID: [id number] DocumentID: [id number] Dictated Date: 12/27/2017 14:35:18 Processing Rep Date: 12/27/2017 20:23:51 Dictated By: JENNIFER GARCIA MD
== END 2017-12-27 16:50 | disposition home or self-care (01) ==
LOC: SDC 09:44
PROVIDERS: ATTEND Surgery
DX: K80.10 Calculus of gallbladder with chronic cholecystitis without obstruction (principal); K76.0 Fatty (change of) liver, not elsewhere classified; E11.9 Type 2 diabetes mellitus without complications; E78.00 Pure hypercholesterolemia, unspecified; F31.9 Bipolar disorder, unspecified; F17.210 Nicotine dependence, cigarettes, uncomplicated; Z79.84 Long term (current) use of oral hypoglycemic drugs; Z79.899 Other long term (current) drug therapy
CPT/HCPCS: 82962; 87081; 94664

== ENCOUNTER 2017-12-29 02:03 | Emergency (ER) | payer MEDICARE, MEDICAID ==
[~2017-12-29] VITALS: Ht 157.5 cm; Wt 77.1 kg
[~2017-12-29 02:03] MED LIST changes: +OXYC-197 PO
--- OUTSIDE RECORDS SUMMARY | 2017-12-29 02:14 | XMS REPORT | Continuity of Care Document ---
Author Author [facility] Address Unknown Phone Unavailable Allergies Active Description Code Type Severity Reaction Onset Reported/Identified Relationship to Patient Clinical Status Yes Sulfa (Sulfonamide Antibiotics) [id number] Drug Allergy Unknown N/A 2005 Yes sulfa [...] Yes tramadol Drug Allergy 12/20/2010 Yes hydrocodone [id number] Drug Allergy Unknown SICK TO STOMACH 02/02/2014 [...] YOEL F 304.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 02/08/2009 ONRMA DOYOEL F 311 Mo Depress Nos 02/08/2009 [...] F 311 Mo Depress Nos 02/08/2009 DENZEL HCILEL MD 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 02/08/2009 DENZEL [...] Family History Of Ischemic Heart Disease 04/22/2009 DENZLE CHILEL MD V15.82 Personal History Of Tobacco Use 04/22/2009 DENZEL CHILEL MD V17.3 Family History Of Ischemic Heart Disease 08/05/2009 YOEL GREEN DO V72.31 Psychological Operations Officer Exam, Routine 08/05/2009 YOEL GREEN DO V72.31 Psychological Operations Officer Exam, Routine 08/05/2009 DENZEL CHILEL MD V72.31 Psychological Operations Officer Exam, Routine 08/05/2009 YOEL GREEN DO V72.31 Psychological Operations Officer Exam, Routine 08/05/2009 DENZEL CHILEL MD V72.31 Psychological Operations Officer Exam, Routine 08/05/2009 YOEL GREEN DO V72.31 Psychological Operations Officer Exam, Routine 08/05/2009 V72.31 Psychological Operations Officer Exam, Routine 08/05/2009 V72.31 Psychological Operations Officer Exam, Routine 08/05/2009 V72.31 Psychological Operations Officer Exam, Routine 08/05/2009 V72.31 Psychological Operations Officer Exam, Routine 08/05/2009 YOEL GREEN DO V72.31 Psychological Operations Officer Exam, Routine 08/05/2009 GETACHEW ADAMS, DENZEL V72.31 Psychological Operations Officer Exam, Routine 08/05/2009 GETACHEW ADAMS, DENZEL V72.31 Psychological Operations Officer Exam, Routine 08/05/2009 GETACHEW ADAMS, DENZEL V72.31 Psychological Operations Officer Exam, Routine 08/05/2009 GETACHEW ADAMS, DENZEL V72.31 Psychological Operations Officer Exam, Routine 08/05/2009 GETACHEW ADAMS, DENZEL V72.31 Psychological Operations Officer Exam, Routine 08/05/2009 GETACHEW ADAMS, DENZEL V72.31 Psychological Operations Officer Exam, Routine 08/05/2009 GETACHEW ADAMS, DENZEL V72.31 Psychological Operations Officer Exam, Routine 12/02/2009 YOEL GREEN DO 305.1 [...] 307.47 SI DYSSOMNIA NOS 05/21/2012 GETACHEW ADAMS, DENEZL 307.47 SI DYSSOMNIA NOS 05/21/2012 GETACHEW ADAMS, [...] MD 298.9 P PSYCHOSIS NOS 10/22/2012 DENZEL CHILLE MD 786.2 COUGH 10/22/2012 YOEL GREEN DO [...] ORTIZ MD Ot 780.52 INSOMNIA, UNSPECIFIED 04/15/2013 SHAILESH ORTIZ MD Ot 791.9 ABN URINE FINDINGS [...] ORTIZ MD Ot 519.11 ACUTE BRONCHOSPASM 10/31/2013 SHIALESH ORTIZ MD Ot 786.59 CHEST PAIN NEC [...] REC EPIS (OR CURRENT) DEPRESSED 04/17/2014 DIANA ADAMS, SHAILESH Lyn Ot 300.00 ANXIETY STATE NOS [...] FACP CCDS Ot 785.1 05/08/2015 MUNIRA ADAMS [facility], RONI FACP CCDS Ot 786.09 05/08/2015 KRISTOPHER MILLER SILK CONDITIONER Ot 780.52 INSOMNIA, UNSPECIFIED 05/08/2015 KRISTOPHER MILLER SILK CONDITIONER Ot V68.1 ISSUE REPEAT PRESCRIPT 02/25/2016 ROMY PULIDO MD Ot M54.5 LOW BACK PAIN 02/29/2016 ROMY PULIOD MD Ot M54.5 LOW BACK PAIN 03/30/2016 [...] RESPIRATORY ABNORM NEC 06/07/2016 DAMI VILLARREAL R COUNTY DIRECTOR WELFARE Ot Z12.31 ENCNTR SCREEN MAMMOGRAM FOR MALIGNANT NE 06/08/2016 CHERELLE DAMI R [employer] Ot Z12.31 ENCNTR SCREEN MAMMOGRAM FOR MALIGNANT NE 06/15/2016 CHERELLE DAMI R [employer]ELF[employer] Ot Z12.31 ENCNTR SCREEN MAMMOGRAM FOR MALIGNANT NE 06/16/2016 CHERELLE DAMI R [employer] DIRECT[employer] WELFARE Ot Z12.31 ENCNTR SCREEN MAMMOGRAM FOR MALIGNANT NE 06/16/2016 CHERELLE DAMI R [employer] Ot Z12.31 ENCNTR SCREEN MAMMOGRAM FOR MALIGNANT NE 06/16/2016 ROMY PULIDO MD Ot R00.2 PALPITATIONS 06/30/2016 DAMI VILLARREAL R [employer] Ot Z12.31 ENCNTR SCREEN MAMMOGRAM FOR MALIGNANT NE 07/04/2016 DAMI VILLARREAL R [employer] DIRECT[employer] Ot Z12.31 ENCNTR SCREEN MAMMOGRAM FOR MALIGNANT [...] CCDS Ot 785.1 PALPITATIONS 08/12/2016 MUNIRA ADAMS [facility], ALI FACP CCDS Ot 786.09 RESPIRATORY ABNORM NEC 08/12/2016 ROMY PULIDO MD N Ot R00.2 PALPITATIONS 08/12/2016 DAMI VILLARREAL R [employer] Ot Z12.31 ENCNTR SCREEN MAMMOGRAM FOR MALIGNANT NE 08/12/2016 MARIALUISA PAETL MD Ot F17.210 NICOTINE DEPENDENCE, CIGARETTES, UNCOMPL [...] Huitron Ot R00.2 PALPITATIONS 08/12/2016 DAMI [employer] Ot Z12.31 ENCNTR SCREEN MAMMOGRAM FOR MALIGNANT [...] 786.09 RESPIRATORY ABNORM NEC 10/11/2016 DAMI [employer]AL [employer] Ot Z12.31 ENCNTR SCREEN MAMMOGRAM FOR MALIGNANT NE 10/11/2016 ROMY PULIDO MD Ot R00.2 PALPITATIONS 10/11/2016 KADIE LAUGHLIN DO Ot F17.210 NICOTINE DEPENDENCE, CIGARETTES, UNCOMPL 10/11/2016 KADIE LAUGHLIN DO Ot F41.9 ANXIETY DISORDER, UNSPECIFIED 10/11/2016 KADIE LAUGHLIN DO Ot J44.9 CHRONIC OBSTRUCTIVE PULMONARY DISEASE, U 10/11/2016 KADIE LAUGHLIN DO Ot R00.2 PALPITATIONS 10/11/2016 KADIE LAUGHLIN DO Ot Z79.899 OTHER USP (CURRENT) DRUG THERAPY 10/29/2016 KRISTOPHER MILLER SILK CONDITIONER Ot F17.210 NICOTINE DEPENDENCE, CIGARETTES, UNCOMPL 10/29/2016 KRISTOPHER MILLER SILK CONDITIONER Ot F41.9 ANXIETY DISORDER, UNSPECIFIED 10/29/2016 KRISTOPHER MILLER SILK CONDITIONER Ot R00.2 PALPITATIONS 10/29/2016 KRISTOPHER MILLER SILK CONDITIONER Ot R06.02 SHORTNESS OF BREATH 10/29/2016 KRISTOPHER MILLER SILK CONDITIONER Ot Z79.899 OTHER GROUP CIO (CURRENT) DRUG THERAPY 10/29/2016 MUNIRA ADAMS FACC, [...] 786.09 RESPIRATORY ABNORM NEC 10/29/2016 DAMI VILL[employer]REAL [employer]FARE Ot Z12.31 ENCNTR SCREEN MAMMOGRAM FOR MALIGNANT NE 10/29/2016 ASHOK ADAMS, ROMY Huitron Ot R00.2 PALPITATIONS 10/31/2016 KRISTOPHER MILLER SILK CONDITIONER Ot F17.210 NICOTINE DEPENDENCE, CIGARETTES, UNCOMPL 10/31/2016 KRISTOPHER MILLER SILK CONDITIONER Ot F41.9 ANXIETY DISORDER, UNSPECIFIED 10/31/2016 KRISTOPHER MILLER SILK CONDITIONER Ot R00.2 PALPITATIONS 10/31/2016 KRISTOPHER MILLER SILK CONDITIONER Ot R06.02 SHORTNESS OF BREATH 10/31/2016 KRISTOPHER MILLER SILK CONDITIONER Ot Z79.899 OTHER USP (CURRENT) DRUG THERAPY 11/01/2016 KRISTOPHER MILLER SILK CONDITIONER Ot F17.210 NICOTINE DEPENDENCE, CIGARETTES, UNCOMPL 11/01/2016 KRISTOPHER MILLER SILK CONDITIONER Ot F41.9 ANXIETY DISORDER, UNSPECIFIED 11/01/2016 KRISTOPHER MILLER SILK CONDITIONER Ot R00.2 PALPITATIONS 11/01/2016 KRISTOPHER MILLER SILK CONDITIONER Ot R06.02 SHORTNESS OF BREATH 11/01/2016 KRISTOPHER MILLER SILK CONDITIONER Ot Z79.899 OTHER USP (CURRENT) DRUG THERAPY 12/18/2016 MUNIRA ADAMS FACC, [...] 786.09 RESPIRATORY ABNORM NEC 12/18/2016 DAMI VILLARREAL [employer] DIRECTOR W[employer]FARE Ot Z12.31 ENCNTR SCREEN MAMMOGRAM FOR MALIGNANT [...] Ot F17.210 NICOTINE DEPENDENCE, CIGARETTES, UNCOMPL 12/22/2016 KADIE LAUGHLIN DO Ot F41.9 ANXIETY DISORDER, [...] Ot 786.09 RESPIRATORY ABNORM NEC 01/15/2017 CHERE[place]I [employer] DIRECTOR WELFARE Ot Z12.31 ENCNTR SCREEN MAMMOGRAM FOR MALIGNANT [...] 01/15/2017 JASIEL ADAMS MERON A Ot Z79.84 USP (CURRENT) USE OF ORAL HYPOGLYC 01/15/2017 JASIEL ADAMS MERON A Ot Z79.899 OTHER USP (CURRENT) DRUG THERAPY 01/16/2017 MARYCHUY WEATHERS MDNT A Ot E11.65 TYPE 2 DIABETES MELLITUS WITH HYPERGLYCE 01/16/2017 MERON WEATHERS MD A Ot I10 ESSENTIAL (PRIMARY) HYPERTENSION 01/16/2017 MARYCHUY WEATHERS MDNT A Ot J44.9 CHRONIC OBSTRUCTIVE PULMONARY DISEASE, U 01/16/2017 MERON WEATHERS MD A Ot R42 DIZZINESS AND GIDDINESS 01/16/2017 JASIEL ADAMS MERON A Ot Z79.84 GROUP CIO (CURRENT) USE OF ORAL HYPOGLYC 01/16/2017 JASIEL ADAMS MERON A Ot Z79.899 OTHER GROUP CIO (CURRENT) DRUG THERAPY 01/25/2017 TRUMAN DO, KADIE [...] HEADACHE 02/03/2017 SHAILESH ORTIZ MD Ot Z79.84 USP (CURRENT) USE OF ORAL HYPOGLYC 02/03/2017 SHAILESH ORTIZ MD Ot Z79.899 OTHER USP (CURRENT) DRUG THERAPY 02/03/2017 SHAILESH ORTIZ MD [...] HEADACHE 02/05/2017 SHAILESH ORTIZ MD Ot Z79.84 GROUP CIO (CURRENT) USE OF ORAL HYPOGLYC 02/05/2017 SHAILESH ORTIZ MD Ot Z79.899 OTHER GROUP CIO (CURRENT) DRUG THERAPY 03/04/2017 KADIE LAUGHLIN DO [...] HEADACHE 04/27/2017 SHAILESH ORTIZ MD Ot Z79.84 GROUP CIO (CURRENT) USE OF ORAL HYPOGLYC 04/27/2017 SHAILESH ORTIZ MD Ot Z79.899 OTHER USP (CURRENT) DRUG THERAPY 09/28/2017 KADIE LAUGHLIN DO [...] MASTODYNIA 09/28/2017 KADIE LAUGHLIN DO Ot Z79.84 USP (CURRENT) USE OF ORAL HYPOGLYC 09/28/2017 KADIE [...] SMO 10/19/2017 KRISTOPHER MILLER APRN Ot Z79.84 GROUP CIO (CURRENT) USE OF ORAL HYPOGLYC 10/19/2017 KRISTOPHER [...] SMO 11/27/2017 KRISTOPHER MILLER APRN Ot Z79.84 GROUP CIO (CURRENT) USE OF ORAL HYPOGLYC 11/27/2017 KRISTOPHER [...] N Ot N64.4 MASTODYNIA 11/29/2017 DAMI VILLARREAL [employer] DIRECT[employer] Ot Z12.31 ENCNTR SCREEN MAMMOGRAM FOR MALIGNANT [...] SMO 11/29/2017 KRISTOPHER MILLER APRN Ot Z79.84 GROUP CIO (CURRENT) USE OF ORAL HYPOGLYC 11/29/2017 KRISTOPHER MILLER APRN Ot Z87.59 PERSONAL HISTORY OF COMP OF PREG, CHLDBR 11/29/2017 KRISTOPHER MILLER APRN Ot Z87.81 PERSONAL HISTORY OF (HEALED) TRAUMATIC F 11/29/2017 KRISTOPHER MILLER APRN Ot Z90.710 ACQUIRED ABSENCE OF BOTH CERVIX AND UTER 12/09/2017 DAMI VILLARREAL [employer] DIRECT[employer]FARE Ot Z12.31 ENCNTR SCREEN MAMMOGRAM FOR MALIGNANT [...] AND 12/11/2017 MARIALUISA PATEL MD Ot Z79.84 GROUP CIO (CURRENT) USE OF ORAL HYPOGLYC 12/11/2017 MARIALUISA [...] Procedures Code [place] [address] URINE DRUG SCREEN (IN-HOUSE ) 10/22/2012 37462 ROUTINE VENIPUNCTURE 02/24/2013 03149 GLUCOSE 02/24/2013 22990 LIPID PANEL 02/24/2013 26933 ROUTINE VENIPUNCTURE 03/21/2013 60724 A1C (IN-HOUSE) 03/21/2013 09418 URINE DRUG SCREEN (IN-HOUSE ) 03/21/2013 27934 FSH 03/21/2013 00212 LH 03/21/2013 30819 URINE DRUG SCREEN (IN-HOUSE ) 09/01/2013 Cardiolog Roni Anthony 11/07/2013 12418 ROUTINE VENIPUNCTURE 11/13/2013 97570 EKG, TRACING (IN-HOUSE) 11/13/2013 38397 URINE DRUG SCREEN (IN-HOUSE ) 11/13/2013 33898 CBC 11/13/2013 18838 CMP 11/13/2013 41653 LIPID PANEL 11/13/2013 60343 MAGNESIUM 11/13/2013 4997927 GFR CALC (RESULT ONLY) 11/13/2013 53154 TSH 11/13/2013 23962 URINE DRUG SCREEN (IN-HOUSE ) 12/25/2013 952154 [employer] DRUG SCREEN 03/09/2014 Results Test Result [...] urinalysis with reflex to culture NO NRG Methicillin resistant Staphylococcus aureus (MRSA) screening culture - 09:55 Methicillin resistant Staphylococcus aureus (MRSA) screening culture NEG NRG Capillary blood glucose measurement by glucometer (mass/volume) - 12/27/17 10: 32 Capillary blood glucose measurement by glucometer (mass/volume) 136 mg/dL 70-110 Encounters ACCT No. Visit Date/Time Discharge Status Pt. Type Provider Facility Loc./Unit Complaint [id number] 03/09/2014 15:25:00 03/09/2014 23:59:59 MAKENNA Outpatient DENZEL CHILEL MD [id number] 12/25/2013 15:27:00 12/25/2013 23:59:59 MAKENNA Outpatient DENZEL CHILEL MD [id number] 12/25/2013 15:27:00 12/25/2013 23:59:59 CLS Outpatient DENZEL CHILEL MD [id number] 11/13/2013 07:59:00 11/13/2013 23:59:59 CLS Outpatient DENZEL CHILEL MD [id number] 11/04/2013 16:08:00 11/04/2013 23:59:59 CLS Outpatient DENZEL CHILEL MD [id number] 09/01/2013 14:25:00 09/01/2013 23:59:59 CLS Outpatient DENZEL CHILEL MD [id number] 09/01/2013 14:25:00 09/01/2013 23:59:59 CLS Outpatient DENZEL CHILEL MD [id number] 05/15/2013 11:35:00 05/15/2013 23:59:59 CLS Outpatient NORMA GARCIA YOEL F [id number] 01/21/2013 10:26:00 01/21/2013 23:59:59 CLS Outpatient NORMA GARCIA YOEL Caesar [id number] 01/02/2013 16:04:00 01/02/2013 23:59:59 CLS Outpatient DENZEL CHILEL MD [id number] 11/21/2012 10:28:00 11/21/2012 23:59:59 CLS Outpatient NORMA GARCIA YOEL F [id number] 10/22/2012 14:03:00 10/22/2012 23:59:59 CLS Outpatient DENZEL CHILEL MD [id number] 08/21/2012 11:41:00 08/21/2012 23:59:59 CLS Outpatient NORMA GARCIA YOEL Caesar [id number] 08/21/2012 11:41:00 08/21/2012 23:59:59 CLS Outpatient NORMA GARCIA YOEL Caesar [id number] 04/23/2013 13:58:00 Document Registration [id number] 03/21/2013 15:05:00 Document Registration [id number] 02/24/2013 12:29:00 Document Registration [id number] 02/24/2013 12:29:00 Document Registration [id number] 12/14/2017 15:36:00 12/14/2017 23:59:59 CLS Preadmit ROMY PULIDO MD [facility] RAD R74.0 [id number] 12/09/2017 22:21:00 12/10/2017 02:15:00 DIS Outpatient MARIALUISA PATEL MD [facility] ER AB ISSUES [id number] 11/27/2017 20:33:00 11/27/2017 21:35:00 DIS Emergency KRISTOPHER MILLER APRN [facility] ER HEARTBURN [id number] 11/06/2017 09:45:00 11/06/2017 23:59:59 CLS Preadmit ROMY PULIDO MD [facility] RAD R74.0 ELEVATED ALT MEASUREMENT [id number] 10/19/2017 16:32:00 10/19/2017 17:54:00 DIS Emergency KRISTOPHER MILLER SILK CONDITIONER [facility] ER CHEST PAIN [id number] 10/12/2017 09:38:00 10/12/2017 23:59:59 CLS Outpatient ROMY PULIDO MD [facility] RAD CERVICAL DISC [id number] 10/03/2017 10:39:00 10/03/2017 10:39:00 CAN Preadmit ROMY PULIDO MD [facility] RAD Z12.39 SCREENING BREAST EXAMINATION [id number] 09/28/2017 09:48:00 09/28/2017 10:30:00 DIS Emergency KADIE LAUGHLIN DO [facility] ER CHEST WALL PAIN [id number] 03/04/2017 22:03:00 03/04/2017 23:45:00 DIS Emergency KADIE LAUGHLIN DO [facility] ER L ARM PAIN [id number] 02/06/2017 01:40:00 02/06/2017 01:40:00 CAN Preadmit GABRIELA PRYOR DO [facility] ER SALCIDO [id number] 02/02/2017 23:54:00 02/03/2017 00:16:00 DIS Emergency SHAILESH ORTIZ MD [facility] ER SHAKEY,TIRED,FLUSHED FACE [id number] 01/28/2017 01:24:00 01/28/2017 04:14:00 DIS Emergency SHAILESH ORTIZ MD [facility] ER CHEST PAIN [id number] 01/25/2017 02:04:00 01/25/2017 03:27:00 DIS Emergency TRUMANKADIE Rose DO [facility] ER ANXIETY [id number] 01/15/2017 00:15:00 01/15/2017 01:37:00 DIS Emergency MERON WEATHERS MD [facility] ER DIZZY BS HEART RATE [id number] 12/22/2016 03:27:00 12/22/2016 05:55:00 DIS Emergency KDAIE LAUGHLIN DO [facility] ER CP/SOA [id number] 12/18/2016 16:58:00 12/18/2016 20:15:00 DIS Emergency GABRIELA PRYOR DO [facility] ER RATTLING IN CHEST WHEN BREATHING/SOB [id number] 10/29/2016 20:52:00 10/29/2016 22:41:00 DIS Emergency KRISTOPHER MILLER APRN [facility] ER SOA [id number] 10/11/2016 19:05:00 10/11/2016 21:17:00 DIS Emergency KADIE LAUGHLIN DO [facility] ER HEART PALPATATIONS [id number] 08/23/2016 10:30:00 08/23/2016 23:59:59 CLS Preadmit ROMY PULIDO MD [facility] CARD R00.2 PALPITATIONS [id number] 05/24/2016 09:14:00 08/22/2016 00:01:00 DIS Outpatient ROMY PULIDO MD [facility] CARD R00.2 PALPITATIONS [id number] 08/12/2016 03:58:00 08/12/2016 05:44:00 DIS Emergency MARIALUISA PATEL MD [facility] ER TACHYCARDIA [id number] 06/07/2016 09:34:00 06/07/2016 23:59:59 CLS Outpatient DAMI VILLARREAL [facility] RAD SCREENING [id number] 04/04/2016 10:45:00 04/13/2016 11:41:00 DIS Outpatient ROMY PULIDO MD [facility] REHAB CHRONIC LOW BACK PAIN [id number] 05/08/2015 14:42:00 05/08/2015 15:00:00 DIS Emergency KRISTOPHER MILLER SILK CONDITIONER [facility] ER NOT SLEEPING [id number] 03/30/2015 09:00:00 03/30/2015 23:59:59 CLS Preadmit MUNIRA ADAMS FACC, RONI LAWLER CCDS [facility] CATH PALPITATIONS FATIGUE [id number] 03/03/2015 21:04:00 03/03/2015 23:34:00 DIS Emergency ROYA DOGABRIELA [facility] ER PALPITATIONS [id number] 05/02/2014 17:04:00 05/02/2014 20:31:00 DIS Emergency MARIALUISA PATEL MD [facility] ER CHEST PAIN [id number] 04/17/2014 11:10:00 04/17/2014 14:10:00 DIS Emergency SHAILESH ORTIZ MD [facility] ER CHEST TIGHTNESS/IRR HEART RATE [id number] 02/01/2014 17:45:00 02/01/2014 19:57:00 DIS Emergency KADIE LAUGHLIN DO [facility] ER RAPID HEART BEAT [id number] 01/28/2014 13:43:00 01/28/2014 16:15:00 DIS Emergency TRUMAN KADIE GARCIA K [facility] ER HEART FLUTTERING/NOT SLEEPING [id number] 01/22/2014 15:07:00 01/22/2014 18:45:00 DIS Emergency AN LEE MD [facility] ER COUGH;CP [id number] 12/26/2013 08:13:00 12/26/2013 23:59:59 CLS Outpatient MUNIRA ADAMS FACC, RONI LAWLER CCDS [facility] CARD DYSPNEA,PALP, COPD,TOBACCO ABUSE [id number] 12/25/2013 07:01:00 12/25/2013 23:59:59 CLS Outpatient RONI ANTHONY MD, FACC, FACP CCDS [facility] RAD DYSPNEA,PALP, COPD,TOBACCO ABUSE [id number] 10/31/2013 01:42:00 10/31/2013 04:31:00 DIS Emergency SHAILESH ORTIZ MD [facility] ER CHEST PAIN,SOB, DIARRHEA [id number] 10/30/2013 04:29:00 10/30/2013 06:10:00 DIS Emergency SHAILESH ORTIZ MD [facility] ER CHEST PAIN [id number] 08/02/2013 20:20:00 08/02/2013 22:04:00 DIS Emergency SHAILESH ORTIZ MD [facility] ER PALPITATIONS [id number] 05/28/2013 04:10:00 05/28/2013 23:59:59 CLS Emergency [id number] 05/19/2013 20:49:00 05/19/2013 22:37:00 DIS Emergency MARIALUISA PATEL MD [facility] ER ABD PAIN [id number] 04/15/2013 08:15:00 04/15/2013 10:33:00 DIS Emergency SHAILESH ORTIZ MD [facility] ER HEART PALPATATIONS AND DIARRHEA [id number] 12/27/2017 10:08:00 Document Registration [id number] 02/23/2013 18:29:00 Document Registration [id number] 07/02/2012 15:52:00 Document Registration
[2017-12-29] MEDS ORDERED: ONDANSETRON 4 MG/2 ML (SDV) Z0FRAN IVP ONE (02:15)
[2017-12-29] MEDS ORDERED: KETOROLAC 30 MG/ML VIAL IVP ONE (02:15)
[2017-12-29 02:22] LABS: BASOPHILS % (AUTO) 0 % (0-10); EOSINOPHILS # (AUTO) 0.3 10^3/uL (0.0-0.3); EOSINOPHILS % (AUTO) 2 % (0-10); HEMATOCRIT 34 % (35-52); HEMOGLOBIN 11.9 G/DL (11.5-16.0); LYMPHOCYTES # (AUTO) 1.3 X 10^3 (1.0-4.0); LYMPHOCYTES % (AUTO) 11 % (12-44); MEAN CORPUSCULAR HEMOGLOBIN 32 PG (25-34); MEAN CORPUSCULAR HGB CONC 35 G/DL (32-36); MEAN CORPUSCULAR VOLUME 91 FL (80-99); MEAN PLATELET VOLUME 9.1 FL (7.4-10.4); MONOCYTES # (AUTO) 1.3 X 10^3 (0.0-1.0); MONOCYTES % (AUTO) 10 % (0-12); NEUTROPHILS # (AUTO) 9.4 X 10^3 (1.8-7.8); NEUTROPHILS % (AUTO) 77 % (42-75); PLATELET COUNT 217 10^3/uL (130-400); RED BLOOD COUNT 3.71 10^6/uL (4.35-5.85); RED CELL DISTRIBUTION WIDTH 13.2 % (10.0-14.5); WHITE BLOOD COUNT 12.2 10^3/uL (4.3-11.0)
[2017-12-29 02:39] LABS: ALANINE AMINOTRANSFERASE 91 U/L (0-55); ALBUMIN 3.5 GM/DL (3.2-4.5); ALKALINE PHOSPHATASE 110 U/L (40-136); BUN/CREATININE RATIO 7; CALCIUM 8.7 MG/DL (8.5-10.1); CARBON DIOXIDE 20 MMOL/L (21-32); CHLORIDE 102 MMOL/L (98-107); GFR ESTIMATED > 60; GLUCOSE 239 MG/DL (70-105); LIPASE 12 U/L (8-78); POTASSIUM 3.8 MMOL/L (3.6-5.0); SODIUM 134 MMOL/L (135-145); TOTAL PROTEIN 6.1 GM/DL (6.4-8.2)
[2017-12-29] MEDS ORDERED: ONDA4TAB8 PO (05:10)
--- NOTE | 2017-12-29 05:10 | ED Abdominal Pain ---
General Chief Complaint: Abdominal/GI Problems Stated Complaint: ABD PAIN Nursing Triage Note: PT BROUGHT IN BY [facility] WITH C/O ABD PAIN S/P LAP TIEY YESTERDAY. Sepsis Screen: No Definite Risk Source of Information: Patient Exam Limitations: No Limitations Allergies and Home Medications Allergies Coded Allergies: Sulfa (Sulfonamide Antibiotics) (Verified Allergy, Unknown, 04/18/06) hydrocodone (Verified Adverse Reaction, Unknown, SICK TO STOMACH, 02/02/14) Home Medications Metformin HCl 500 Mg Tab.er.24h, 500 MG PO DAILY, (Reported) Ondansetron 4 Mg Tab.rapdis, 4 MG PO Q4H PRN for NAUSEA/VOMITING-1ST LINE Prescribed by: SHAILESH SINHA on 12/29/17 0510 Oxycodone HCl/Acetaminophen 1 Each Tablet, 1-2 EACH PO Q4H Prescribed by: JENNIFER GARCIA on 12/27/17 1427 Past Iohbzvs-Eynypp-Ekxaox Hx Patient Social History Alcohol Use: Denies Use Recreational Drug Use: No Drug of Choice: BENZODIAZEPINE ABUSE Smoking Status: Never a Smoker Type Used: Cigarettes 2nd Hand Smoke Exposure: Yes Recent Foreign Travel: No Contact w/Someone Who Travel: No Recent Infectious Disease Expo: No Recent Hopitalizations: No Immunizations Up To Date Tetanus Booster (TDap): Unknown PED Vaccines UTD: No Seasonal Allergies Seasonal Allergies: No Surgeries History of Surgeries: Yes Surgeries: Section, Gallbladder, 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, Joint Replacement, Orthopedic Respiratory History of Respiratory Disorde: Yes Respiratory Disorders: COPD, Emphysema Cardiovascular History of Cardiac Disorders: Yes Cardiac Disorders: Hypertension, Palpitations Neurological History of Neurological Disord: Yes 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 System Hx 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 Disorders: No Sexually Transmitted Disease: No LIFE SCIENCES DIRECTOR History: Tubal Ligation 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 History of 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 Disor: No Gastrointestinal History of Gastrointestinal Di: No Musculoskeletal History of Musculoskeletal Dis: Yes Musculoskeletal Disorders: Arthritis, Scoliosis, Chronic Back Pain, Fractures Endocrine History of Endocrine Disorders: Yes Endocrine Disorders: Diabetes, Non-Insulin dep HEENT History of HEENT Disorders: Yes (DENTURES) Cancer History of Cancer: No Psychosocial History of Psychiatric Problem: Yes Behavioral Health Disorders: Sleep Difficulties, Anxiety, Bipolar, Depression Integumentary History of Skin or Integumenta: No Blood Transfusions History of Blood Disorders: No Adverse Reaction to a Blood Tr: No Family Medical History Significant Family History: No Pertinent Family Hx, Psychiatric Problems Physical Exam Vital Signs VS - Last 72 Hours, by Label 12/29/17 02:18 Temp 99.1 Pulse 109 Resp 16 B/P (MAP) 112/62 (79) Pulse Ox 96 O2 Delivery Room Air Capillary Refill : Less Than 3 Seconds Progress/Results/Core Measures Results/Orders Lab Results Laboratory Tests Test 12/29/17 02:10 Range/Units White Blood Count 12.2 H 4.3-11.0 10^3/uL Red Blood Count 3.71 L 4.35-5.85 10^6/uL Hemoglobin 11.9 11.5-16.0 G/DL Hematocrit 34 L 35-52 % Mean Corpuscular Volume 91 80-99 FL Mean Corpuscular Hemoglobin 32 25-34 PG Mean Corpuscular Hemoglobin Concent 35 32-36 G/DL Red Cell Distribution Width 13.2 10.0-14.5 % Platelet Count 217 130-400 10^3/uL Mean Platelet Volume 9.1 7.4-10.4 FL Neutrophils (%) (Auto) 77 H 42-75 % Lymphocytes (%) (Auto) 11 L 12-44 % Monocytes (%) (Auto) 10 0-12 % Eosinophils (%) (Auto) 2 0-10 % Basophils (%) (Auto) 0 0-10 % Neutrophils # (Auto) 9.4 H 1.8-7.8 X 10^3 Lymphocytes # (Auto) 1.3 1.0-4.0 X 10^3 Monocytes # (Auto) 1.3 H 0.0-1.0 X 10^3 Eosinophils # (Auto) 0.3 0.0-0.3 10^3/uL Basophils # (Auto) 0.0 0.0-0.1 10^3/uL Sodium Level 134 L 135-145 MMOL/L Potassium Level 3.8 3.6-5.0 MMOL/L Chloride Level 102 98-107 MMOL/L Carbon Dioxide Level 20 L 21-32 MMOL/L Anion Gap 12 5-14 MMOL/L Blood Urea Nitrogen 5 L 7-18 MG/DL Creatinine 0.70 0.60-1.30 MG/DL Estimat Glomerular Filtration Rate > 60 BUN/Creatinine Ratio 7 Glucose Level 239 H 70-105 MG/DL Calcium Level 8.7 8.5-10.1 MG/DL Total Bilirubin 1.0 0.1-1.0 MG/DL Aspartate Amino Transf (AST/SGOT) 36 H 5-34 U/L Alanine Aminotransferase (ALT/SGPT) 91 H 0-55 U/L Alkaline Phosphatase 110 40-136 U/L Total Protein 6.1 L 6.4-8.2 GM/DL Albumin 3.5 3.2-4.5 GM/DL Lipase 12 8-78 U/L My Orders Orders - SHAILESH ORTIZ MD Cbc With Automated Diff (12/29/17 02:12) Comprehensive Metabolic Panel (12/29/17 02:12) Lipase (12/29/17 02:12) Ketorolac Injection (Toradol Injection) (12/29/17 02:15) Ondansetron Injection (Zofran Injectio (12/29/17 02:15) Abdomen, Flat & Upright/Decub (12/29/17 03:27) Medications Given in ED Current Medications Medications Dose Ordered Sig/George Route Start Time Stop Time Status Last Admin Dose Admin Ketorolac Tromethamine 30 mg ONCE ONCE IVP 12/29/17 02:15 12/29/17 02:16 DC 12/29/17 02:45 30 MG Ondansetron HCl 4 mg ONCE ONCE IVP 12/29/17 02:15 12/29/17 02:16 DC 12/29/17 02:45 4 MG Vital Signs/I&O Vital Sign - Last 12Hours 12/29/17 02:18 Temp 99.1 Pulse 109 Resp 16 B/P (MAP) 112/62 (79) Pulse Ox 96 O2 Delivery Room Air Blood Pressure Mean: 79 Departure Impression Impression: Primary Impression: Postoperative pain Additional Impression: Constipation Qualified Codes: K59.00 - Constipation, unspecified Disposition: 01 HOME, SELF-CARE Condition: Improved Departure-Patient Inst. Decision time for Depature: 05:07 Referrals: ROMY PULIDO MD (PCP/Family) Primary Care Physician Patient Instructions: Constipation in Adults, Postoperative Pain (DC) Add. Discharge Instructions: Adhered to a strict clear liquid diet until you pass a good bowel movement. Take MiraLAX 2 or 3 times a day until a good bowel movement is past. Use ibuprofen for your primary pain control. May take up to 600 mg every 6 hours as needed. Add your Percocet (oxycodone) for pain not controlled by ibuprofen. Contact Dr. GARCIA on Sunday if you're still having problems. Return to the ER if symptoms worsen. All discharge instructions reviewed with patient and/or family. Voiced understanding. Scripts Polyethylene Glycol 3350 (Miralax) 17 Gm Powd.pack 17 GM PO TID for Constipation, #1 EACH Prov: SHAILESH ORTIZ MD 12/29/17 Ondansetron (Zofran Odt) 4 Mg Tab.rapdis 4 MG PO Q4H Y for NAUSEA/VOMITING-1ST LINE, #10 TAB Prov: SHAILESH ORTIZ MD 12/29/17 SHAILESH ORTIZ MD Dec 29, 2017 05:10
[2017-12-29] MEDS ORDERED: POLY17PO6 PO (05:12)
[2017-12-29 05:19] VITALS: BP 114/70
--- NOTE | 2017-12-29 07:55 | Diagnostic Imaging Report ---
INDICATION: Abdominal pain. Comparison is made with the CT of the abdomen and pelvis from 12/10/2017. FINDINGS: There is moderate stool demonstrated within the colon. There is no evidence of bowel dilation to suggest obstruction. There are surgical clips in the right upper quadrant. There has been a right hip arthroplasty. There is no unexpected abdominal calcification. The lung bases appear clear. S-shaped scoliotic curvature of the spine is noted. IMPRESSION: 1. Nonobstructive bowel gas pattern without evidence to suggest free air. There is a moderate degree of stool within the colon. Dictated by: Dictated on workstation # [id number]
== END 2017-12-29 05:19 | disposition home or self-care (01) ==
LOC: EDUNIT# 02:03 → ER 02:04
DX: G89.18 Other acute postprocedural pain (principal); K59.00 Constipation, unspecified; F41.9 Anxiety disorder, unspecified; F31.9 Bipolar disorder, unspecified; F32.9 Major depressive disorder, single episode, unspecified; E11.9 Type 2 diabetes mellitus without complications; I10 Essential (primary) hypertension; J43.9 Emphysema, unspecified; Z90.49 Acquired absence of other specified parts of digestive tract; Z87.81 Personal history of (healed) traumatic fracture; Z87.59 Personal history of other complications of pregnancy, childbirth and the puerperium; Z77.22 Contact with and (suspected) exposure to environmental tobacco smoke (acute) (chronic); Z90.710 Acquired absence of both cervix and uterus; Z98.51 Tubal ligation status; Z88.5 Allergy status to narcotic agent; Z88.2 Allergy status to sulfonamides
CPT/HCPCS: 36415; 74019; 80053; 83690; 85025; 96374; 96375

== ENCOUNTER 2018-01-28 10:39 | Emergency (ER) | payer MEDICARE, MEDICAID ==
[~2018-01-28] VITALS: Ht 157.5 cm; Wt 77.1 kg
[~2018-01-28 10:39] MED LIST changes: +ONDA4TAB8 PO; +POLY17PO6 PO
--- NOTE | 2018-01-28 10:47 | ED Chest Pain ---
General Stated Complaint: CHEST WALL PAIN Source: patient Exam Limitations: no limitations History of Present Illness Date Seen by Provider: Jan 28, 2018 Time Seen by Provider: 10:46 Initial Comments To ER per EMS from home with reports of left upper chest pain and central chest pain this been going on for several days. She has attributed this to her cholecystectomy that she had 3 weeks ago. Timing/Duration: intermittent, 4-5 days Severity/Quality: moderate Location: central Radiation: no radiation Activities at Onset: none Allergies and Home Medications Allergies Coded Allergies: Sulfa (Sulfonamide Antibiotics) (Verified Allergy, Unknown, 04/18/06) hydrocodone (Verified Adverse Reaction, Unknown, SICK TO STOMACH, 02/02/14) Home Medications Hydroxyzine HCl 25 Mg Tablet, 25 MG PO Q8H PRN for ANXIETY Prescribed by: KRISTOPHER MILLER on 01/28/18 1221 Metformin HCl 500 Mg Tab.er.24h, 500 MG PO DAILY, (Reported) Ondansetron 4 Mg Tab.rapdis, 4 MG PO Q4H PRN for NAUSEA/VOMITING-1ST LINE Prescribed by: SHAILESH SINHA on 12/29/17 0510 Oxycodone HCl/Acetaminophen 1 Each Tablet, 1-2 EACH PO Q4H Prescribed by: JENNIFER GARCIA on 12/27/17 1427 Polyethylene Glycol 3350 17 Gm Powd.pack, 17 GM PO TID Prescribed by: SHAILESH SINHA on 12/29/17 0512 Patient Home Medication List Home Medication List Reviewed: Yes Review of Systems Constitutional: see HPI EENTM: No Symptoms Reported Respiratory: No Symptoms Reported Cardiovascular: See HPI, Chest Pain Gastrointestinal: No Symptoms Reported 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: No Symptoms Reported Musculoskeletal: no symptoms reported Skin: no symptoms reported Psychiatric/Neurological: No Symptoms Reported Endocrine: No Symptoms Reported Past Zodqbgw-Blkpwm-Gcolgb Hx Patient Social History Drug of Choice: BENZODIAZEPINE ABUSE Type Used: Cigarettes 2nd Hand Smoke Exposure: Yes Recent Hopitalizations: No Immunizations Up To Date Tetanus Booster (TDap): Unknown PED Vaccines UTD: No Seasonal Allergies Seasonal Allergies: No Surgeries History of Surgeries: Yes Surgeries: Section, Gallbladder, 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, Joint Replacement, Orthopedic Respiratory History of Respiratory Disorde: Yes Respiratory Disorders: COPD, Emphysema Cardiovascular History of Cardiac Disorders: Yes Cardiac Disorders: Hypertension, Palpitations Neurological History of Neurological Disord: Yes 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 System Hx 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 Disorders: No Sexually Transmitted Disease: 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 History of 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 Disor: No Gastrointestinal History of Gastrointestinal Di: No Musculoskeletal History of Musculoskeletal Dis: Yes Musculoskeletal Disorders: Arthritis, Scoliosis, Chronic Back Pain, Fractures Endocrine History of Endocrine Disorders: Yes Endocrine Disorders: Diabetes, Non-Insulin dep HEENT History of HEENT Disorders: Yes (DENTURES) Cancer History of Cancer: No Psychosocial History of Psychiatric Problem: Yes Behavioral Health Disorders: Sleep Difficulties, Anxiety, Bipolar, Depression Integumentary History of Skin or Integumenta: No Blood Transfusions History of Blood Disorders: No Adverse Reaction to a Blood Tr: No Family Medical History Significant Family History: No Pertinent Family Hx, Psychiatric Problems Physical Exam Vital Signs Vital Signs - First Documented 01/28/18 10:47 Temp 98.1 Pulse 117 Resp 20 B/P (MAP) 159/79 (105) Pulse Ox 99 O2 Delivery Room Air Capillary Refill : General Appearance: No Apparent Distress, WD/WN HEENT: PERRL/EOMI, TMs Normal Neck: Full Range of Motion, Normal Inspection Respiratory: Normal Breath Sounds, No Accessory Muscle Use, No Respiratory Distress Cardiovascular: Regular Rate, Rhythm, Normal Peripheral Pulses Gastrointestinal: Normal Bowel Sounds, Non Tender, Soft Extremity: Normal Capillary Refill, Normal Inspection Neurologic/Psychiatric: Alert, Oriented x3 Skin: Normal Color, Warm/Dry Progress/Results/Core Measures Results/Orders Lab Results Laboratory Tests Test 01/28/18 10:50 01/28/18 11:10 Range/Units White Blood Count 9.0 4.3-11.0 10^3/uL Red Blood Count 4.43 4.35-5.85 10^6/uL Hemoglobin 14.0 11.5-16.0 G/DL Hematocrit 39 35-52 % Mean Corpuscular Volume 88 80-99 FL Mean Corpuscular Hemoglobin 32 25-34 PG Mean Corpuscular Hemoglobin Concent 36 32-36 G/DL Red Cell Distribution Width 12.8 10.0-14.5 % Platelet Count 220 130-400 10^3/uL Mean Platelet Volume 9.9 7.4-10.4 FL Neutrophils (%) (Auto) 61 42-75 % Lymphocytes (%) (Auto) 25 12-44 % Monocytes (%) (Auto) 8 0-12 % Eosinophils (%) (Auto) 5 0-10 % Basophils (%) (Auto) 0 0-10 % Neutrophils # (Auto) 5.5 1.8-7.8 X 10^3 Lymphocytes # (Auto) 2.3 1.0-4.0 X 10^3 Monocytes # (Auto) 0.8 0.0-1.0 X 10^3 Eosinophils # (Auto) 0.5 H 0.0-0.3 10^3/uL Basophils # (Auto) 0.0 0.0-0.1 10^3/uL Sodium Level 139 135-145 MMOL/L Potassium Level 3.2 L 3.6-5.0 MMOL/L Chloride Level 103 98-107 MMOL/L Carbon Dioxide Level 27 21-32 MMOL/L Anion Gap 9 5-14 MMOL/L Blood Urea Nitrogen 14 7-18 MG/DL Creatinine 0.74 0.60-1.30 MG/DL Estimat Glomerular Filtration Rate > 60 BUN/Creatinine Ratio 19 Glucose Level 130 H 70-105 MG/DL Calcium Level 9.5 8.5-10.1 MG/DL Total Bilirubin 0.6 0.1-1.0 MG/DL Aspartate Amino Transf (AST/SGOT) 31 5-34 U/L Alanine Aminotransferase (ALT/SGPT) 51 0-55 U/L Alkaline Phosphatase 132 40-136 U/L Troponin I < 0.30 <0.30 NG/ML Total Protein 7.0 6.4-8.2 GM/DL Albumin 4.2 3.2-4.5 GM/DL Urine Color YELLOW Urine Clarity CLEAR Urine pH 5 5-9 Urine Specific Yoder 1.020 1.016-1.022 Urine Protein NEGATIVE NEGATIVE Urine Glucose (UA) NEGATIVE NEGATIVE Urine Ketones NEGATIVE NEGATIVE Urine Nitrite NEGATIVE NEGATIVE Urine Bilirubin NEGATIVE NEGATIVE Urine Urobilinogen NORMAL NORMAL MG/DL Urine Leukocyte Esterase NEGATIVE NEGATIVE Urine RBC (Auto) 1+ H NEGATIVE Urine RBC 2-5 H /HPF Urine WBC NONE /HPF Urine Squamous Epithelial Cells 5-10 /HPF Urine Crystals NONE /LPF Urine Bacteria FEW H /HPF Urine Casts NONE /LPF Urine Mucus NEGATIVE /LPF Urine Culture Indicated NO Urine Opiates Screen NEGATIVE NEGATIVE Urine Oxycodone Screen NEGATIVE NEGATIVE Urine Methadone Screen NEGATIVE NEGATIVE Urine Propoxyphene Screen NEGATIVE NEGATIVE Urine Barbiturates Screen NEGATIVE NEGATIVE Ur Tricyclic Antidepressants Screen NEGATIVE NEGATIVE Urine Phencyclidine Screen NEGATIVE NEGATIVE Urine Amphetamines Screen NEGATIVE NEGATIVE Urine Methamphetamines Screen NEGATIVE NEGATIVE Urine Benzodiazepines Screen NEGATIVE NEGATIVE Urine Cocaine Screen NEGATIVE NEGATIVE Urine Cannabinoids Screen NEGATIVE NEGATIVE My Orders Orders - KRISTOPHER MILLER APRN Cbc With Automated Diff (01/28/18 10:45) Comprehensive Metabolic Panel (01/28/18 10:45) Ua Culture If Indicated (01/28/18 10:45) Drug Screen Stat (Urine) (01/28/18 10:45) Ekg Tracing (01/28/18 10:45) Troponin I (01/28/18 10:45) Ct Angio Chest W (01/28/18 10:45) Potassium Chloride (Tablet) (Klor Con Ta (01/28/18 11:45) Medications Given in ED Current Medications Medications Dose Ordered Sig/George Route Start Time Stop Time Status Last Admin Dose Admin Iohexol 125 ml ONCE ONCE IV 01/28/18 11:00 01/28/18 11:06 DC 01/28/18 11:36 125 ML Potassium Chloride 40 meq ONCE ONCE PO 01/28/18 11:45 01/28/18 11:46 DC 01/28/18 12:26 40 MEQ Sodium Chloride 250 ml ONCE ONCE IV 01/28/18 11:00 01/28/18 11:06 DC 01/28/18 11:36 80 ML Vital Signs/I&O Vital Sign - Last 12Hours 01/28/18 01/28/18 10:47 12:33 Temp 98.1 98.1 Pulse 117 96 Resp 20 20 B/P (MAP) 159/79 (105) 137/100 (105) Pulse Ox 99 99 O2 Delivery Room Air Room Air Departure Impression Impression: Primary Impression: Chest pain Additional Impression: Anxiety Disposition: 01 HOME, SELF-CARE Condition: Stable Departure-Patient Inst. Decision time for Depature: 11:52 Referrals: ROMY PULIDO MD (PCP/Family) Primary Care Physician Patient Instructions: Chest Pain Add. Discharge Instructions: 1. Return to ER for any concerns 2. Follow-up with your doctor next week 3. Scripts Hydroxyzine HCl (Hydroxyzine HCl) 25 Mg Tablet 25 MG PO Q8H Y for ANXIETY, #10 TAB Prov: KRISTOPHER MILLER APRN 01/28/18 KRISTOPHER MILLER APRN Jan 28, 2018 10:47
[2018-01-28] MEDS ORDERED: NS 250 ML (IVPB) BAG IV ONE (11:00)
[2018-01-28] MEDS ORDERED: IOHEXOL 350 MG/ML 150 ML (OMNIPAQUE 350) VIAL IV ONE (11:00)
[2018-01-28 11:12] LABS: BASOPHILS % (AUTO) 0 % (0-10); EOSINOPHILS # (AUTO) 0.5 10^3/uL (0.0-0.3); EOSINOPHILS % (AUTO) 5 % (0-10); HEMATOCRIT 39 % (35-52); LYMPHOCYTES # (AUTO) 2.3 X 10^3 (1.0-4.0); LYMPHOCYTES % (AUTO) 25 % (12-44); MEAN CORPUSCULAR HEMOGLOBIN 32 PG (25-34); MEAN CORPUSCULAR HGB CONC 36 G/DL (32-36); MEAN CORPUSCULAR VOLUME 88 FL (80-99); MEAN PLATELET VOLUME 9.9 FL (7.4-10.4); MONOCYTES # (AUTO) 0.8 X 10^3 (0.0-1.0); MONOCYTES % (AUTO) 8 % (0-12); NEUTROPHILS # (AUTO) 5.5 X 10^3 (1.8-7.8); NEUTROPHILS % (AUTO) 61 % (42-75); PLATELET COUNT 220 10^3/uL (130-400); RED BLOOD COUNT 4.43 10^6/uL (4.35-5.85); RED CELL DISTRIBUTION WIDTH 12.8 % (10.0-14.5)
[2018-01-28 11:14] LABS: BILIRUBIN,URINE NEGATIVE (NEGATIVE); CLARITY,URINE CLEAR; COLOR,URINE YELLOW; GLUCOSE, URINE (UA) NEGATIVE (NEGATIVE); KETONES,URINE NEGATIVE (NEGATIVE); LEUKOCYTE ESTERASE ,URINE NEGATIVE (NEGATIVE); NITRITE,URINE NEGATIVE (NEGATIVE); PH,URINE 5 (5-9); PROTEIN,URINE NEGATIVE (NEGATIVE); UROBILINOGEN,URINE NORMAL (NORMAL)
[2018-01-28 11:22] LABS: BACTERIA,URINE FEW /HPF
[2018-01-28 11:37] LABS: ALANINE AMINOTRANSFERASE 51 U/L (0-55); ALBUMIN 4.2 GM/DL (3.2-4.5); ALKALINE PHOSPHATASE 132 U/L (40-136); BILIRUBIN,TOTAL 0.6 MG/DL (0.1-1.0); BUN/CREATININE RATIO 19; CALCIUM 9.5 MG/DL (8.5-10.1); CARBON DIOXIDE 27 MMOL/L (21-32); CHLORIDE 103 MMOL/L (98-107); CREATININE SERUM 0.74 MG/DL (0.60-1.30); GFR ESTIMATED > 60; GLUCOSE 130 MG/DL (70-105); POTASSIUM 3.2 MMOL/L (3.6-5.0); SODIUM 139 MMOL/L (135-145)
[2018-01-28 11:42] LABS: AMPHETAMINE SCREEN, URINE NEGATIVE (NEGATIVE); BARBITURATE SCREEN URINE NEGATIVE (NEGATIVE); BENZODIAZEPINES SCREEN URINE NEGATIVE (NEGATIVE); CANNABINOID SCREEN, URINE NEGATIVE (NEGATIVE); COCAINE SCREEN URINE NEGATIVE (NEGATIVE); METHADONE STAT NEGATIVE (NEGATIVE); METHAMPHETAMINE SCREEN URINE S NEGATIVE (NEGATIVE); OPIATE SCREEN URINE NEGATIVE (NEGATIVE); OXYCODONE STAT NEGATIVE (NEGATIVE); PROPOXYPHENE STAT NEGATIVE (NEGATIVE); TRICYCLIC ANTIDEPRESSANTS SCRE NEGATIVE (NEGATIVE)
[2018-01-28] MEDS ORDERED: KCL 10 MEQ TAB (MICRO K) PO ONE (11:45)
--- NOTE | 2018-01-28 12:08 | Diagnostic Imaging Report ---
PROCEDURE: CT angiography of the chest with contrast. TECHNIQUE: Multiple contiguous axial images were obtained through the chest after uneventful bolus administration of intravenous contrast. Reconstructed CTA MIP acquisitions were also performed. INDICATION: Left-sided chest wall pain. COMPARISON: 12/22/2016 FINDINGS: There is no evidence of acute pulmonary embolus to the segmental division of the pulmonary arteries. Evaluation of subsegmental branches is suboptimal given mild motion artifact. Heart size is within normal limits. There is no large pericardial effusion. Thoracic aorta is normal in course and caliber. No pathologically enlarged or morphologically abnormal adenopathy is seen within the mediastinum, dimitrios, nor axilla. Note is made of mild calcified coronary atherosclerosis. Lung windows show no focal consolidation, pleural effusion, nor pneumothorax. No pulmonary nodules or masses are identified. Bony structures show no acute abnormalities. No lytic or blastic bony lesions are seen. Included portions of the upper abdomen show surgical clips in the region of the gallbladder. Patient is status post recent previous cholecystectomy. There is small amount of fluid and gas within the gallbladder fossa, which does conform to the expected shape of the gallbladder. Area in question measures approximately 4.3 x 2.4 cm. IMPRESSION: 1. No evidence of acute pulmonary embolus to the first subsegmental division of the pulmonary arteries. 2. No other acute cardiopulmonary process is identified. 3. Patient is status post recent cholecystectomy. There is collection of air and gas in the gallbladder fossa conforming to the expected shape of the gallbladder. Postsurgical fluid collection such as hematoma, seroma, or abscess should be considered. Results were discussed with the patient's ER physician by Dr. Calderon at approximately 1200 hrs on 01/28/2018. Dictated by: Dictated on workstation # [id number]
[2018-01-28] MEDS ORDERED: HYDR-700 PO (12:21)
[2018-01-28 12:33] VITALS: BP 137/100
== END 2018-01-28 12:33 | disposition home or self-care (01) ==
LOC: EDUNIT# 10:39 → ER 10:40
DX: R07.89 Other chest pain (principal); F41.9 Anxiety disorder, unspecified; J43.9 Emphysema, unspecified; I10 Essential (primary) hypertension; E11.9 Type 2 diabetes mellitus without complications; F31.9 Bipolar disorder, unspecified; Z98.51 Tubal ligation status; Z88.2 Allergy status to sulfonamides; Z88.5 Allergy status to narcotic agent; Z79.84 Long term (current) use of oral hypoglycemic drugs; Z77.22 Contact with and (suspected) exposure to environmental tobacco smoke (acute) (chronic); Z90.710 Acquired absence of both cervix and uterus; Z87.59 Personal history of other complications of pregnancy, childbirth and the puerperium
CPT/HCPCS: 36415; 71275; 80053; 80306; 81000; 84484; 85025; 93005

== ENCOUNTER 2018-01-29 04:38 | Emergency (ER) | payer MEDICARE, MEDICAID ==
[~2018-01-29] VITALS: Ht 157.5 cm; Wt 77.1 kg
--- NOTE | 2018-01-29 05:04 | ED Chest Pain ---
General Chief Complaint: General Problems/Pain Stated Complaint: L SHOULDER PAIN Source: patient, EMS, old records Exam Limitations: no limitations History of Present Illness Date Seen by Provider: Jan 29, 2018 Time Seen by Provider: 04:53 Initial Comments Patient presents to the ER by EMS with a chief complaint this morning she's been experiencing a reproducible chest and left shoulder pain when she pushes on it now for about the last month. Off-and-on she's experienced this pain since about 2011 and has been diagnosed with anxiety and panic disorder and given Xanax in the past. She was told recently that she would not be given any more Xanax for this and instead has been given a prescription for hydroxyzine. She was seen less than 24 hours ago in this ER for this same complaint. The negative troponin was obtained. She has not yet filled the hydroxyzine and although none of her symptoms have changed she is convinced that there is something wrong with her heart because she has palpitations in her neck the same time she's having the reproducible chest pain. She has no primary history of coronary artery disease. She does not remember having a stress test or any workup for this specifically. She's had a hysterectomy but still has her ovaries. She still having periods sometimes has some sweats and they are becoming more irregular. She has no shortness of breath, cough, nausea, weakness. She has pretty significant primary family history of coronary artery disease in her father and brother. She quit smoking yesterday and was down to about half a pack per day. The pain in her chest does not come on spontaneously only when she pushes on it. She says she gets palpitations in her chest and that resulted palpitations in her neck mostly on the left side and she is convinced that this is something to do with her heart. She does not have a history of hypothyroidism or cholesterolemia. Patient feels that her anxiety is no longer causing her chest pains because she was discovered to be diabetic and when they got her blood sugars under control with oral anti-hyperglycemics she no longer had an anxiety. Her symptoms have not changed since 2011 however. Patient is also concerned because her blood pressure is 160/100 tonight when she states she was panicking about her symptoms. Allergies and Home Medications Allergies Coded Allergies: Sulfa (Sulfonamide Antibiotics) (Verified Allergy, Unknown, 04/18/06) hydrocodone (Verified Adverse Reaction, Unknown, SICK TO STOMACH, 02/02/14) Home Medications Hydroxyzine HCl 25 Mg Tablet, 25 MG PO Q8H PRN for ANXIETY Prescribed by: KRISTOPHER MILLER on 01/28/18 1221 Metformin HCl 500 Mg Tab.er.24h, 500 MG PO DAILY, (Reported) Ondansetron 4 Mg Tab.rapdis, 4 MG PO Q4H PRN for NAUSEA/VOMITING-1ST LINE Prescribed by: SHAILESH SINHA on 12/29/17 0510 Oxycodone HCl/Acetaminophen 1 Each Tablet, 1-2 EACH PO Q4H Prescribed by: JENNIFER GARCIA on 12/27/17 1427 Polyethylene Glycol 3350 17 Gm Powd.pack, 17 GM PO TID Prescribed by: SHAILESH SINHA on 12/29/17 0512 Patient Home Medication List Home Medication List Reviewed: Yes Review of Systems Constitutional: No chills, No diaphoresis, No dizziness EENTM: No Blurred Vision, No Double Vision Respiratory: Denies Cough, Denies Shortness of Air, Denies Wheezing Cardiovascular: Chest Pain, Denies Edema, Denies Irregular Heart Rate, Palpitations, Denies Syncope Gastrointestinal: Denies Abdomen Distended, Denies Abdominal Pain, Denies Constipated, Denies Diarrhea, Denies Nausea 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: Denies Burning, Denies Drainage Musculoskeletal: back pain, neck pain (chronic) Past Migojfv-Gvnrbn-Fslfyv Hx Patient Social History Alcohol Use: Denies Use Recreational Drug Use: No Drug of Choice: BENZODIAZEPINE ABUSE Smoking Status: Former Smoker Type Used: Cigarettes Former Smoker, Quit: Jan 28, 2018 2nd Hand Smoke Exposure: Yes Recent Foreign Travel: No Contact w/Someone Who Travel: No Recent Hopitalizations: Yes (multiple e.d. 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 History of 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 Disor: No Gastrointestinal History of Gastrointestinal Di: No Musculoskeletal History of Musculoskeletal Dis: Yes Musculoskeletal Disorders: Arthritis, Scoliosis, Chronic Back Pain, Fractures Endocrine History of Endocrine Disorders: Yes Endocrine Disorders: Diabetes, Non-Insulin dep HEENT History of HEENT Disorders: Yes (DENTURES) Cancer History of Cancer: No Psychosocial History of Psychiatric Problem: Yes Behavioral Health Disorders: Sleep Difficulties, Anxiety, Bipolar, Depression Integumentary History of Skin or Integumenta: No Blood Transfusions History of Blood Disorders: No Adverse Reaction to a Blood Tr: No Family Medical History Significant Family History: No Pertinent Family Hx, Psychiatric Problems Physical Exam Vital Signs Vital Signs - First Documented 01/29/18 04:54 Temp 98.6 Pulse 75 Resp 16 B/P (MAP) 108/75 (86) Pulse Ox 96 O2 Delivery Room Air Capillary Refill : General Appearance: No Apparent Distress, WD/WN HEENT: PERRL/EOMI, TMs Normal, Normal ENT Inspection, Pharynx Normal, Moist Mucous Membranes Neck: Full Range of Motion, Normal Inspection, Supple, No JVD, Tender Midline Respiratory: Chest Non Tender, Lungs Clear, Normal Breath Sounds, No Accessory Muscle Use, No Respiratory Distress Cardiovascular: Regular Rate, Rhythm, No Edema, Normal Peripheral Pulses Gastrointestinal: Normal Bowel Sounds, Non Tender, Soft Extremity: Normal Capillary Refill, Non Tender, No Calf Tenderness, No Pedal Edema Neurologic/Psychiatric: Alert, Oriented x3, No Motor/Sensory Deficits Skin: Normal Color, Warm/Dry Progress/Results/Core Measures Results/Orders Lab Results Laboratory Tests Test 01/29/18 05:00 Range/Units White Blood Count 6.8 4.3-11.0 10^3/uL Red Blood Count 4.32 L 4.35-5.85 10^6/uL Hemoglobin 13.5 11.5-16.0 G/DL Hematocrit 38 35-52 % Mean Corpuscular Volume 88 80-99 FL Mean Corpuscular Hemoglobin 31 25-34 PG Mean Corpuscular Hemoglobin Concent 36 32-36 G/DL Red Cell Distribution Width 12.9 10.0-14.5 % Platelet Count 210 130-400 10^3/uL Mean Platelet Volume 9.3 7.4-10.4 FL Sodium Level 137 135-145 MMOL/L Potassium Level 4.1 3.6-5.0 MMOL/L Chloride Level 105 98-107 MMOL/L Carbon Dioxide Level 25 21-32 MMOL/L Anion Gap 7 5-14 MMOL/L Blood Urea Nitrogen 12 7-18 MG/DL Creatinine 0.67 0.60-1.30 MG/DL Estimat Glomerular Filtration Rate > 60 BUN/Creatinine Ratio 18 Glucose Level 136 H 70-105 MG/DL Calcium Level 9.3 8.5-10.1 MG/DL Total Bilirubin 0.5 0.1-1.0 MG/DL Aspartate Amino Transf (AST/SGOT) 31 5-34 U/L Alanine Aminotransferase (ALT/SGPT) 50 0-55 U/L Alkaline Phosphatase 110 40-136 U/L Troponin I < 0.30 <0.30 NG/ML Total Protein 6.5 6.4-8.2 GM/DL Albumin 4.0 3.2-4.5 GM/DL Thyroid Stimulating Hormone (TSH) 1.53 0.35-4.94 UIU/ML My Orders Orders - ROE CULP Cbc No Diff (01/29/18 04:55) Comprehensive Metabolic Panel (01/29/18 04:55) Thyroid Stimulating Hormone (01/29/18 04:55) Troponin I (01/29/18 04:55) Ekg Tracing (01/29/18 04:55) Monitor-Rhythm Ecg Trace Only (01/29/18 04:55) Chest Pa/Lat (2 View) (01/29/18 04:55) Aspirin Tablet (Aspirin Tablet) (01/29/18 05:15) Medications Given in ED Current Medications Medications Dose Ordered Sig/George Route Start Time Stop Time Status Last Admin Dose Admin Aspirin 325 mg ONCE ONCE PO 01/29/18 05:15 01/29/18 05:16 DC 01/29/18 05:10 325 MG Vital Signs/I&O Vital Sign - Last 12Hours 01/29/18 04:54 Temp 98.6 Pulse 75 Resp 16 B/P (MAP) 108/75 (86) Pulse Ox 96 O2 Delivery Room Air Progress Note : Time: 05:03 Progress Note Her pain is easily reproduced chest left chest wall probably treasury representative of chest wall pain or costochondritis or some similar diagnosis. She may respond well to NSAIDs and maybe even steroids however I would avoid steroids as she does seem to have quite a bit of anxiety with some recent panic disorder. We have negotiated to give consideration to her risk factors and do a workup for her month-long chest pain and palpitations and if nothing was found on EKG or troponin again today then we would let her follow-up with her primary care physician to consider stress test or other similar workup for risk stratification. ECG Initial ECG Impression Date: Jan 29, 2018 Initial ECG Impression Time: 04:59 Initial ECG Rate: 73 Initial ECG Rhythm: Normal Sinus Initial ECG Intervals: Normal Initial ECG Impression: Normal Initial ECG Comparisson: Unchanged Comment No ST segment elevation or depression. Diagnostic Imaging Diagonstic Imaging: Xray (2v) Plain Films/CT/US/NM/MRI: chest Comments No acute cardiopulmonary processes noted. NAME: [facility] REC#: [id number] PT STATUS: REG ER : 1965 PHYSICIAN: ROE CULP MD ADMIT DATE: 01/29/18/ER Draft Date of Exam:01/29/18 CHEST PA/LAT (2 VIEW) INDICATION: Shoulder and flank pain. PA and lateral views of the chest are obtained with comparison made to study of 11/27/2017. FINDINGS: There is continued right convexity curvature of the thoracic spine. Heart size and pulmonary vascularity are within normal limits. No pneumothorax or consolidation is identified. There is no evidence of pleural fluid. IMPRESSION: No acute abnormality or significant change is identified. Dictated on workstation # [id number] Dict: 01/29/18 0635 Trans: 01/29/18 0638 [id number] Interpreted by: MICHAEL GROSS MD Electronically signed by: Reviewed: Reviewed by Me Departure Impression Impression: Primary Impression: Shoulder pain Qualified Codes: M25.512 - Pain in left shoulder Additional Impressions: Chest wall tenderness Generalized anxiety disorder with panic attacks Disposition: HOME, SELF-CARE Condition: Stable Departure-Patient Inst. Decision time for Depature: 06:42 Referrals: ROMY PULIDO MD (PCP/Family) Primary Care Physician Patient Instructions: Panic Disorder (DC) Add. Discharge Instructions: Please make an appointment to follow up with your primary care physician in the next couple weeks. 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 All discharge instructions reviewed with patient and/or family. Voiced understanding. Copy Copies To 1: SHELBY PLATA TITUS J Jan 29, 2018 05:04
[2018-01-29 05:12] LABS: HEMOGLOBIN 13.5 G/DL (11.5-16.0); MEAN PLATELET VOLUME 9.3 FL (7.4-10.4); RED BLOOD COUNT 4.32 10^6/uL (4.35-5.85); RED CELL DISTRIBUTION WIDTH 12.9 % (10.0-14.5); WHITE BLOOD COUNT 6.8 10^3/uL (4.3-11.0)
[2018-01-29] MEDS ORDERED: ASPIRIN 325 MG (5 GR) TABLET PO ONE (05:15)
[2018-01-29 05:29] LABS: ALANINE AMINOTRANSFERASE 50 U/L (0-55); ALKALINE PHOSPHATASE 110 U/L (40-136); BILIRUBIN,TOTAL 0.5 MG/DL (0.1-1.0); BUN/CREATININE RATIO 18; CALCIUM 9.3 MG/DL (8.5-10.1); CARBON DIOXIDE 25 MMOL/L (21-32); CHLORIDE 105 MMOL/L (98-107); CREATININE SERUM 0.67 MG/DL (0.60-1.30); GFR ESTIMATED > 60; GLUCOSE 136 MG/DL (70-105); POTASSIUM 4.1 MMOL/L (3.6-5.0); SODIUM 137 MMOL/L (135-145); TOTAL PROTEIN 6.5 GM/DL (6.4-8.2)
--- NOTE | 2018-01-29 06:39 | Diagnostic Imaging Report ---
INDICATION: Shoulder and flank pain. PA and lateral views of the chest are obtained with comparison made to study of 11/27/2017. FINDINGS: There is continued right convexity curvature of the thoracic spine. Heart size and pulmonary vascularity are within normal limits. No pneumothorax or consolidation is identified. There is no evidence of pleural fluid. IMPRESSION: No acute abnormality or significant change is identified. Dictated by: Dictated on workstation # [id number]
[2018-01-29 06:58] VITALS: BP 112/74
== END 2018-01-29 06:53 | disposition home or self-care (01) ==
LOC: EDUNIT# 04:38 → ER 04:40
DX: M25.512 Pain in left shoulder (principal); R07.89 Other chest pain; F41.0 Panic disorder [episodic paroxysmal anxiety]; J43.9 Emphysema, unspecified; I10 Essential (primary) hypertension; E11.9 Type 2 diabetes mellitus without complications; F41.9 Anxiety disorder, unspecified; F31.9 Bipolar disorder, unspecified; Z98.51 Tubal ligation status; Z90.710 Acquired absence of both cervix and uterus; Z82.49 Family history of ischemic heart disease and other diseases of the circulatory system; Z88.2 Allergy status to sulfonamides; Z88.5 Allergy status to narcotic agent; Z79.84 Long term (current) use of oral hypoglycemic drugs; Z87.891 Personal history of nicotine dependence; Z87.59 Personal history of other complications of pregnancy, childbirth and the puerperium
CPT/HCPCS: 36415; 71046; 80053; 84443; 84484; 85027; 93005

== ENCOUNTER 2018-02-13 23:10 | Emergency (ER) | payer MEDICARE, MEDICAID ==
[~2018-02-13] VITALS: Ht 154.9 cm; Wt 75.3 kg
--- NOTE | 2018-02-13 23:27 | ED Back Pain ---
General Stated Complaint: BACK PAIN Source of Information: Patient, EMS Exam Limitations: No Limitations History of Present Illness Date Seen by Provider: Feb 13, 2018 Time Seen by Provider: 23:40 Initial Comments The patient presents to the ER by EMS with a chief complaint per EMS that she says she worked out today for the first time ever and started having achiness in her back and the left side of her neck. She is not having any fevers chills cough, cold, nausea. She did not have a fall, syncope, or strike her head. The patient states that she was doing a workout today on her back using lat pole and a back exercise machine and that's when her pain started up in her neck and back. She is having a little tingling in her left arm down about group home to her elbow. She's not having any chest pain, cough, shortness of breath, chills, fever, nausea, abdominal pain. She has not taken any Tylenol or ibuprofen. She said she felt a little panicky about her back pain so she took one of her Vistaril and that helped. She has some Flexeril left over from previous visit but she doesn't feel that that is ever helped so she didn't try it. She saw her doctor today about setting up a colonoscopy but did not mention her back or neck pain. Allergies and Home Medications Allergies Coded Allergies: Sulfa (Sulfonamide Antibiotics) (Verified Allergy, Unknown, 04/18/06) hydrocodone (Verified Adverse Reaction, Unknown, SICK TO STOMACH, 02/02/14) Home Medications Hydroxyzine HCl 25 Mg Tablet, 25 MG PO Q8H PRN for ANXIETY Prescribed by: KRISTOPHER MILLER on 01/28/18 1221 Metformin HCl 500 Mg Tab.er.24h, 500 MG PO DAILY, (Reported) Ondansetron 4 Mg Tab.rapdis, 4 MG PO Q4H PRN for NAUSEA/VOMITING-1ST LINE Prescribed by: SHAILESH SINHA on 12/29/17 0510 Oxycodone HCl/Acetaminophen 1 Each Tablet, 1-2 EACH PO Q4H Prescribed by: JENNIFER GARCIA on 12/27/17 1427 Polyethylene Glycol 3350 17 Gm Powd.pack, 17 GM PO TID Prescribed by: SHAILESH SINHA on 12/29/17 0512 Patient Home Medication List Home Medication List Reviewed: Yes Constitutional: No chills, No fever EENTM: No ear pain, No eye pain Respiratory: No cough, No short of breath Cardiovascular: No chest pain, No edema Gastrointestinal: No abdominal pain, No constipation, No nausea 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: No discharge, No dysuria : No Musculoskeletal: see HPI, back pain Past Vcisexs-Trmwzx-Jhzdlz Hx Patient Social History Recreational Drug Use: Yes Drug of Choice: BENZODIAZEPINE ABUSE Smoking Status: Former Smoker Type Used: Cigarettes Former Smoker, Quit: Jan 28, 2018 2nd Hand Smoke Exposure: Yes Recent Foreign Travel: No Contact w/Someone Who Travel: No Recent Hopitalizations: Yes (multiple e.d. 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 Sexually Transmitted Disease: No 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: No Gastrointestinal: No Musculoskeletal: Yes Arthritis, Scoliosis, Chronic Back Pain, Fractures Endocrine: Yes Diabetes, Non-Insulin dep HEENT: Yes (DENTURES) Cancer: No Psychosocial: Yes Sleep Difficulties, Anxiety, Bipolar, Depression Integumentary: No Blood Disorders: No Adverse Reaction/Blood Tranf: No Family Medical History No Pertinent Family Hx, Psychiatric Problems Physical Exam Vital Signs Vital Signs - First Documented 02/13/18 23:35 Temp 98.0 Pulse 88 Resp 20 B/P (MAP) 139/74 (95) O2 Delivery Room Air Capillary Refill : General Appearance: No Apparent Distress, WD/WN HEENT: PERRL/EOMI, Pharynx Normal Neck: Full Range of Motion, Normal Inspection, Non Tender, Supple, Other (left superior trapezius is tender to palpation and re-creates her paresthesias) Cardiovascular: Regular Rate, Rhythm, No Edema, Normal Peripheral Pulses Respiratory: Chest Non Tender, Lungs Clear, Normal Breath Sounds, No Accessory Muscle Use, No Respiratory Distress Peripheral Pulses: 2+ Radial Pulses (R), 2+ Radial Pulses (L) Back: Normal Inspection, No Vertebral Tenderness, Other (left parathoracic vertebral muscles are tender to palpation without radiation.) Extremity: Normal Capillary Refill, No Pedal Edema Neurologic/Psychiatric: Alert, Oriented x3, No Motor/Sensory Deficits, Normal Mood/Affect Skin: Normal Color, Warm/Dry Progress/Results/Core Measures Vital Signs/I&O 02/13/18 23:35 Temp 98.0 Pulse 88 Resp 20 B/P (MAP) 139/74 (95) O2 Delivery Room Air Progress Note : Time: 23:48 Progress Note Musculoskeletal complaints that per history seem to correlate with her recent workout. She has Motrin in her purse which she is going to take 800 mg of and were going to allow her to go home you some topicals, heating pad, Tylenol and follow-up with her primary care physician if it's not improving in a few weeks. We have encouraged her to continue to work out and given some counseling regarding this. Departure Impression Primary Impression: Back strain Qualified Codes: S39.012A - Strain of muscle, fascia and tendon of lower back , initial encounter Additional Impression: Cervical radiculopathy at C7 Disposition: 01 HOME, SELF-CARE Condition: Stable Departure-Patient Inst. Decision time for Depature: 23:49 Referrals: ROMY PULIDO MD (PCP/Family) Primary Care Physician Patient Instructions: Muscle Strain (DC) Add. Discharge Instructions: Use ibuprofen 800 mg 3 times a day on a schedule for the first 3 or 4 days and then as needed 3 times a day. You can also use Tylenol 1000 mg every 8 hours as needed. You can apply a heating pad to your back. You can ice your back for 20 minutes every 4 hours for the first 3 days. Use topical creams such as icy hot, Biofreeze or blue emu as needed. Continue to work out and stretch your back and limbs liberally before and after exercising. Follow-up with your primary care provider in 2-4 weeks if your pain has not improved at all. If you lose control of your bowels or bladder or your legs or arms become numb or weak then you should follow-up sooner. Copy Copies To 1: SHELBY PLATA TITUS J Feb 13, 2018 23:27
[2018-02-14 00:01] VITALS: BP 139/74
== END 2018-02-14 00:02 | disposition home or self-care (01) ==
LOC: EDUNIT# 23:10 → ER 23:13
DX: S39.012A Strain of muscle, fascia and tendon of lower back, initial encounter (principal); M54.12 Radiculopathy, cervical region; J43.9 Emphysema, unspecified; I10 Essential (primary) hypertension; E11.9 Type 2 diabetes mellitus without complications; F31.9 Bipolar disorder, unspecified; F41.9 Anxiety disorder, unspecified; F13.10 Sedative, hypnotic or anxiolytic abuse, uncomplicated; Z90.710 Acquired absence of both cervix and uterus; Z87.59 Personal history of other complications of pregnancy, childbirth and the puerperium; Z88.2 Allergy status to sulfonamides; Z88.5 Allergy status to narcotic agent; Z79.84 Long term (current) use of oral hypoglycemic drugs; Z87.891 Personal history of nicotine dependence; X50.0XXA Overexertion from strenuous movement or load, initial encounter; Y93.B9 Activity, other involving muscle strengthening exercises
CPT/HCPCS: 99283

== ENCOUNTER → 2018-03-12 | Outpatient (CLI) | payer MEDICARE, MEDICAID ==
[~2018-03-12] MED LIST changes: +CATHETER FLUSH 10 ML SYR IV PRN
[2018-03-12 13:10] VITALS: BP 125/69
[2018-03-12 13:22] VITALS: BP 151/77
--- NOTE | 2018-03-13 14:30 | STRESS TEST ---
DATE OF SERVICE: 03/12/2018 RESTING AND POST EXERCISE TECHNETIUM-99M TETROFOSMIN SPECT CT IMAGING ORDERING PHYSICIAN: Roni Anthony MD, MA, FACP, FACC. PRIMARY PHYSICIAN: Mita Cook MD. CLINICAL DIAGNOSIS: Shortness of breath, palpitations, and chest discomfort. Baseline images were carried out after injection of 10.86 mCi technetium-99m Tetrofosmin. This was followed by exercise on a treadmill. Dashawn protocol was employed. Heart rate response to exercise was normal. Blood pressure response to exercise was hypertensive. There was nonspecific ST segment abnormality at peak exercise and in the immediate post-exercise phase. This was approximately [address] segment depression. The patient received 30.6 mCi technetium-99m Tetrofosmin after she had attained more than 85% of maximum predicted heart rate and the exercise was continued for another minute after that. The exercise was stopped on account of fatigue. She did not report chest pain. She attained 90% of maximum predicted heart rate and 8.9 METS of workload. She exercised for a total of 7 minutes and 25 seconds. Review of images at rest and following stress does not indicate any significant perfusion defects consistent with significant myocardial ischemia or infarction. Gated images show normal global left ventricular systolic function and normal regional wall motion. Left ventricular ejection fraction is calculated to be 68%. Left ventricular end diastolic volume is 33 mL. TID is absent (1.06). CONCLUSIONS: 1. No evidence of significant myocardial ischemia or infarction. 2. Somewhat low exercise capacity. 3. Normal regional wall motion. 4. Normal global systolic function with a calculated ejection fraction of 68%. 5. Hypertensive response to exercise. Job ID: [id number] DocumentID: [id number] Dictated Date: 03/13/2018 08:47:25 Electrical Engineering Draftsperson Date: 03/13/2018 14:29:53 Dictated By: RONI ANTHONY MD, STEVE, FACP, FACC,
== END ==
LOC: RAD 11:59
PROVIDERS: ATTEND Family Medicine
DX: R06.02 Shortness of breath (principal); R22.1 Localized swelling, mass and lump, neck; R00.2 Palpitations; E66.09 Other obesity due to excess calories; R07.89 Other chest pain; Z72.0 Tobacco use
CPT/HCPCS: 78452; 93017

== ENCOUNTER 2018-06-09 23:22 | Emergency (ER) | payer MEDICARE, MEDICAID ==
[~2018-06-09] VITALS: Ht 154.9 cm; Wt 77.1 kg
[~2018-06-09 23:22] MED LIST changes: -CATHETER FLUSH 10 ML SYR IV PRN
[2018-06-09] MEDS ORDERED: CYCL10TA9 PO (23:54)
[2018-06-09] MEDS ORDERED: MELO15TA14 PO (23:54)
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
[2018-06-10] MEDS ORDERED: KETOROLAC 60 MG/2 ML VIAL IM ONE
[2018-06-10] MEDS ORDERED: ORPHENADRINE 60 MG/2 ML (NORFLEX) AMP IM ONE
[2018-06-10] MEDS ORDERED: diphenhydrAMINE 50 MG/ML INJ (BENADRYL) IM ONE
[2018-06-10 00:16] VITALS: BP 128/92
--- OUTSIDE RECORDS SUMMARY | 2018-06-10 19:48 | XMS REPORT ---
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 Leader Case Trim Name Role Phone PHILLIP PULIDOHANY Unavailable PROBLEMS Type Condition ICD9-CM Code [id number] Code Onset Dates Condition Status SNOMED Code Problem Lumbago with sciatica, right side M54.41 Active 322435924 Problem Tension headache G44.209 Active 624166080 Problem Other chronic pain G89.29 Active 58131026 Problem COPD with exacerbation J44.1 Active 401971525 Problem Fibromyalgia M79.7 Active 479071075 Problem Peripheral polyneuropathy G62.9 Active 04769624 Problem Chest pain, unspecified type R07.9 Active 63342383 Problem Retinitis pigmentosa H35.52 Active 24661239 Problem Cervical disc disorder at C5-C6 level with radiculopathy M50.122 Active 252060269 Problem Carpal tunnel syndrome of left wrist G56.02 Active [id number] Problem Anxiety state, unspecified F41.1 Active 965937421 Problem Low back pain M54.5 Active 982701856 Problem Major depressive disorder, recurrent episode, moderate F33.1 Active 753911315 Problem Calculus of gallbladder without cholecystitis without obstruction K80.20 Active 482720547 Problem Generalized anxiety disorder F41.1 Active 80967870 Problem Panic attacks F41.0 Active 085714024 Problem Type 2 diabetes mellitus with hyperglycemia, without long-term current use of insulin E11.65 Active 30144765 Problem Insomnia G47.00 Active 925027068 Problem 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 Active 43505572 Problem Tobacco use Z72.0 Active 838555771 Problem Mixed hyperlipidemia E78.2 Active 406710936 ALLERGIES Substance Reaction Event Type Date Status Sulfamethoxazole-Trimethoprim Unknown Drug Allergy Feb, Active Codeine Sulfate Unknown Drug Allergy Feb, Active ENCOUNTERS Encounter Location Date Diagnosis [facility] [address], [place] [address] Jun, [facility] [id number] [place] [address] 06524- 6770 Jun, [facility] [id number] [place] [address] 61298- 2941 May, [facility] [id number] [place] [address] 60434- 0536 May, Cough R05 [facility] [id number] [place] [address] 12163- 3297 May, [facility] [id number] [place] [address] 06138- 2028 May, COPD with exacerbation J44.1 [facility] [id number] [place] [address] 56993- 6913 May, Type 2 diabetes mellitus with hyperglycemia, without long- term current use of insulin E11.65 ; Peripheral polyneuropathy G62.9 ; Cough R05 and COPD with exacerbation J44.1 [facility] [id number] [place] [address] 41493- 1969 May, [facility] [id number] [place] [address] 94764- 2521 May, COPD with exacerbation J44.1 and Tobacco abuse counseling Z71.6 [facility] [id number] [place] [address] 82238- 6037 May, [facility] [id number] [place] [address] 40407- 3814 May, [facility] [id number] [place] [address] 60410 -6198 May, Numbness of left hand R20.0 and Carpal tunnel syndrome of left wrist G56.02 [facility] [address], [place] [address] 7315 May, [facility] [id number] [place] [address] 10500- 9185 Apr, Type 2 diabetes mellitus with hyperglycemia, without long- term current use of insulin E11.65 [place] [address] 16682- 7301 March, Anxiety state, unspecified F41.1 [place] [address] 51849- 4338 Feb, [place] [address] 58093- 3010 Feb, Medicare annual wellness visit, initial Z00.00 ; Type 2 diabetes mellitus with hyperglycemia, without long-term current use of insulin E11.65 ; Major depressive disorder, recurrent episode, moderate F33.1 ; Mixed hyperlipidemia E78.2 ; Fibromyalgia M79.7 ; Retinitis pigmentosa H35.52 ; Panic attacks F41.0 ; Facial skin lesion L98.9 ; Fullness of neck R22.1 and Screening for colon cancer Z12.11 [place] [address] 72307- 5063 Feb, Type 2 diabetes mellitus with hyperglycemia, without long- term current use of insulin E11.65 [place] [id number] [place] [address] 79976- 5846 Jan, [place] [id number] [place] [address] 91589- 0308 Jan, Asymptomatic microscopic hematuria R31.21 ; Chest pain, unspecified type R07.9 and Generalized anxiety disorder F41.1 [place] [id number] [place] [address] 68221- 4745 Jan, [place] [address] 94266- 6411 Jan, [facility] [id number] [place] [address] 56155 -6465 Dec, [place] [address] 45351- 6435 Dec, [place] [id number] [place] [address] 35028- 3270 Dec, [place] [id number] [place] [address] 852380- 2658 Dec, [place] [id number] [place] [address] 17651- 5241 Dec, [place] [id number] [place] [address] 66189- 1323 Dec, Tension headache G44.209 [place] [id number] [place] [address] 78424- 1600 Dec, Elevated LFTs R79.89 ; Type 2 diabetes mellitus with hyperglycemia, without long-term current use of insulin E11.65 ; Abdominal bloating R14.0 and Other fatigue R53.83 [place] [id number] [place] [address] 28406- 4287 Dec, Elevated ALT measurement R74.0 [place] [id number] [place] [address] 95261- 7210 Nov, Type 2 diabetes mellitus with hyperglycemia, without long- term current use of insulin E11.65 and Mixed hyperlipidemia E78.2 [place] [id number] [place] [address] 57223- 9327 Oct, [place] [id number] [place] [address] 73506- 4361 Oct, Elevated ALT measurement R74.0 [place] [id number] [place] [address] 26685- 5342 Oct, [place] [id number] [place] [address] 38258- 8195 Oct, [place] [id number] [place] [address] 84130- 3763 Oct, Breast cancer screening Z12.31 [place] [id number] [place] [address] 14498- 3869 Sep, Tension headache G44.209 ; Cervical disc disorder at C5-C6 level with radiculopathy M50.122 ; Other fatigue R53.83 ; Breast pain, left N64.4 ; Vertigo R42 and Abnormal tympanic membrane of left ear H73.92 [facility] [address] 07877 -9074 Sep, Screening breast examination Z12.[address] 87659- 9441 Sep, [address] 60566- 8971 Sep, Mixed hyperlipidemia E78.2 and Type 2 diabetes mellitus with hyperglycemia, without long-term current use of insulin E11.[address] 58558- 7962 Jul, [place] [address] 22125- 2142 Jul, Lumbago with sciatica, right side M54.41 and Other chronic pain G89.[address] 57152- 4441 May, Type 2 diabetes mellitus with hyperglycemia, without long- term current use of insulin E11.65 ; Low back pain M54.5 ; Tobacco use Z72.0 ; Mixed hyperlipidemia E78.2 ; Lateral epicondylitis of right elbow M77.11 and 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 82758- 3639 Apr, [address] 72499- 6870 Apr, Low back pain M54.[address] 76409- 3390 Apr, Pain in thoracic spine M54.6 [facility] [address], [place] [address] March, Lumbosacral neuritis M54.17 [facility] [id number] [place] [address] 84987- 7085 March, Low back pain M54.5 [facility] [id number] [place] [address] 13230- 8218 March, [facility] [id number] [place] [address] 62854- 2010 March, [facility] [id number] [place] [address] 65291- 0545 March, [facility] [id number] [place] [address] 17380- 3828 Feb, [facility] [id number] [place] [address] 27167- 9892 Feb, [facility] [id number] [place] [address] 90133- 3769 Feb, [facility] [id number] [place] [address] 09668- 7209 Feb, Low back pain M54.5 and Pain in thoracic spine M54.6 [facility] [id number] [place] [address] 96610- 5365 Jan, Panic attacks F41.0 ; Type 2 diabetes mellitus with hyperglycemia, without long-term current use of insulin E11.65 and Other chest pain R07.89 [facility] [address], [place] [address]- 6168 Jan, [facility] [id number] [place] [address] 22131- 6932 Jan, Type 2 diabetes mellitus with hyperglycemia, without long- term current use of insulin E11.65 [facility] [id number] [place] [address] 95470- 7269 Jan, Pain in thoracic spine M54.6 [facility] [id number] [place] [address] 33093- 8879 Jan, Type 2 diabetes mellitus with hyperglycemia, without long- term current use of insulin E11.65 and Elevated liver enzymes R74.8 [place] [id number] [place] [address] 55815- 6696 Jan, [place] [id number] [place] [address] 97129- 7443 Dec, Tobacco use Z72.0 ; Prediabetes R73.09 ; Elevated liver enzymes R74.8 ; Elevated fasting glucose R73.01 ; Elevated ALT measurement R74.0 ; Pain in thoracic spine M54.6 ; Panic attacks F41.0 and Type 2 diabetes mellitus with hyperglycemia, without long-term current use of insulin E11.65 [facility] [id number] [place] [address] 67922 -0984 Jun, Abdominal pain, right upper quadrant R10.11 [place] [id number] [place] [address] 82138- 0029 Jun, [place] [id number] [place] [address] 57725- 7797 Jun, [place] [id number] [place] [address] 87370- 5051 Jun, [place] [id number] [place] [address] 96244- 1467 May, Routine gynecological examination Z01.419 ; Encounter for Papanicolaou smear for cervical cancer screening Z12.4 ; Screening breast examination Z12.39 ; Vaginal discharge N89.8 and Candidal vaginitis B37.3 [facility] [id number] [place] [address] 31813- 5557 May, [place] [id number] [place] [address] 63482- 1150 May, Prediabetes R73.09 ; Elevated ALT measurement R74.0 ; Elevated fasting glucose R73.01 and Palpitations R00.2 [place] [id number] [place] [address] 24412- 7237 Feb, [facility] [id number] [place] [address] 43825- 8067 Feb, [place] [address] 01455- 9204 Feb, Generalized anxiety disorder F41.1 and Major depressive disorder, recurrent episode, moderate F33.1 [place] [address] 30536- 3874 Feb, Generalized anxiety disorder F41.1 ; Low back pain M54.5 and Insomnia G47.00 [place] [address] 24327- 6710 Jan, Elevated fasting glucose R73.01 and Elevated ALT measurement R74.0 [place] [id number] [place] [address] 99407- 3202 Jan, Generalized anxiety disorder F41.1 ; Low back pain M54.5 and Screening cholesterol level Z13.220 [place] [id number] [place] [address] 72614- 4339 Dec, Scoliosis M41.9 and Anxiety F41.9 [place] [id number] [place] [address] 14186- 2367 Feb, [place] [id number] [place] [address] 31339- 8113 Feb, [place] [id number] [place] [address] 58104- 5096 Apr, [place] [id number] [place] [address] 56791- 5020 March, [place] [id number] [place] [address] 38265- 0388 March, [facility] [place] [facility] [address] [id number] [place] [address]- 5792 March, [facility] [place] [facility] [address] [id number] [place] [address]- 0485 March, [facility] [place] [facility] [address] [id number] [place] [address]- 0015 March, [facility] [place] [facility] [address] [id number] [place] [address]- 2354 March, [facility] [place] [facility] [address] [id number] [place] [address]- 2831 March, [facility] [place] [facility] [address] [id number] [place] [address]- 1827 March, [facility] [place] [facility] [address] [id number] [place] [address]- 2368 Feb, [facility] [place] [facility] [address] [id number] [place] [address]- 2123 Feb, [facility] [place] [facility] [address] [id number] [place] [address]- 9031 Feb, [facility] [place] [facility] [address] [id number] [place] [address]- 8104 Feb, [facility] [place] [facility] [address] [id number] [place] [address]- 1482 Jan, [facility] [place] [facility] [address] [id number] [place] [address]- 8072 Jan, [facility] [place] [facility] [address] [id number] [place] [address]- 8257 Jan, [facility] [place] [facility] [address] [id number] [place] [address]- 1934 Jan, [facility] [place] [facility] [address] [id number] [place] [address]- 1825 Jan, [facility] [place] [facility] [address] [id number] [place] [address]- 9843 Jan, [facility] [place] [facility] [address] [id number] [place] [address]- 6821 Jan, [facility] [place] [facility] [address] [id number] [place] [address]- 2969 Dec, [facility] [place] [facility] [address] [id number] [place] [address]- 0583 Dec, [facility] [place] [facility] [address] [id number] [place] [address]- 9576 Dec, [facility] [place] [facility] [address] [id number] [place] [address]- 8178 Dec, [facility] [place] [facility] [address] [id number] [place] [address]- 6131 Dec, [facility] [place] [facility] [address] [facility] [id number] [place] [address]- 0185 Dec, [facility] [place] [facility] [address] [id number] [place] [address]- 7128 Nov, [facility] [place] [facility] [address] [id number] [place] [address]- 6326 Nov, [facility] [place] [facility] [address] [facility] [id number] [place] [address]- 6584 Nov, [facility] [place] [facility] [address] [id number] [place] [address]- 1370 Nov, [facility] [place] [facility] [address] [id number] [place] [address]- 4851 Nov, [facility] [place] [facility] [address] [id number] [place] [address]- 4655 Nov, [facility] [place] [facility] [address] [facility] [id number] [place] [address]- 4258 Nov, [facility] [place] [facility] [address] [facility] [id number] [place] 5878 Oct, [facility] [place] [facility] [address] [id number] [place] [address]- 6137 Oct, [facility] [place] [facility] [address] [id number] [place] [address]- 8278 Oct, [facility] [place] [facility] [address] [id number] [place]- 7291 Oct, [facility] [place] [facility] [address] [id number] [place] [address]- 2677 Sep, [facility] [place] [facility] [address] [id number] [place] [address]- 3666 Sep, [facility] [place] [facility] [address] [id number] [place] [address]- 3210 Sep, [facility] [place] [facility] [address] [id number] [place] [address]- 5547 Sep, [facility] [place] [facility] [address] [id number] [place] [address]- 0797 Sep, [facility] [place] [facility] [address] [id number] [place] [address]- 0134 Sep, [facility] [place] [facility] [address] [id number] [place] [address]- 1512 Aug, [facility] [place] [facility] [address] [id number] [place] [address]- 6876 Aug, [facility] [place] [facility] [address] [id number] [place] [address]- 0132 Aug, [facility] [place] [facility] [address] [id number] [place] [address]- 9410 Aug, [facility] [place] [facility] [address] [id number] [place] [address]- 3052 Aug, [facility] [place] [facility] [address] [id number] [place] [address]- 7888 Aug, [facility] [place] [facility] [address] [id number] [place] [address]- 9062 Aug, [facility] [address] [id number] [place] [address]- 7636 Jul, [facility] [place] [facility] [address] [id number] [place] [address]- 9682 Jul, [facility] [place] [facility] [address] [id number] [place] [address]- 9796 Jun, [facility] [place] [facility] [address] [id number] [place] [address]- 6667 May, [facility] [address] [id number] [place] [address]- 5879 May, [facility] [place] [facility] [address] [id number] [place] [address]- 8663 May, [facility] [place] [facility] [address] [id number] [place] [address]- 7156 Apr, [facility] [place] [facility] [address] [id number] [place] [address]- 6149 Apr, [facility] [place] [facility] [address] [id number] [place] [address]- 3145 Apr, [facility] [place] [facility] [address] [id number] [place] [address]- 1192 March, [facility] [place] [facility] [address] [id number], [place] [address]- 9977 March, [facility] [place] [facility] [address] [id number], [place] [address]- 5379 March, [facility] [place] [facility] [address] [id number] [place] [address]- 7447 Feb, [facility] [place] [facility] [address] [id number] [place] [address]- 7327 Feb, [facility] [place] [facility] [address] [id number] [place] [address]- 0263 15 Feb, 2013 [facility] [place] [facility] [address] [id number] [place] [address]- 9897 28 Jan, 2013 [facility] [address] [id number] [place] [address]- 1586 19 Jan, 2013 [facility] [place] [facility] [address] [id number] [place] [address] 2546 18 Jan, 2013 [facility] [address] [id number] [place] [address]- 7216 15 Jan, 2013 [facility] [address] [id number] [place] [address] 2541 14 Jan, 2013 [facility] [address] [id number] [place] [address]- 3146 12 Jan, 2013 [facility] [address] [id number] [place] [address] 2546 05 Jan, 2013 [facility] [address] [id number] [place] [address]- 1909 28 Dec, 2012 [facility] [address] [id number] [place] [address]- 0283 18 Dec, 2012 [facility] [id number] [place] [address]- 1713 15 Dec, 2012 [facility] [address] [facility] [id number] [place] [address]- 1388 14 Dec, 2012 [facility] [address] [facility] [id number] [place] [address]- 2546 05 Dec, 2012 [facility] [address] [id number] [place] [address] 29 Nov, 2012 [facility] [place] [facility] [address] [id number] [place] [address] Nov, [facility] [place] [facility] [address] [facility] [id number] [place] [address] Nov, [facility] [place] [facility] [address] [facility] [id number] [place] [address] Nov, [facility] [place] [facility] [address] [id number] [place] [address] Oct, [facility] [place] [facility] [address] [id number] [place] [address] Oct, [facility] [place] [facility] [address] [id number] [place] [address] Oct, [facility] [place] [facility] [address] [id number] [place] [address] Oct, [facility] [place] [facility] [address] [id number] [place] [address] Oct, [facility] [place] [facility] [address] [id number] [place] [address] Oct, [facility] [place] [facility] [address] [id number] [place] [address] Oct, [facility] [place] [facility] [address] [id number] [place] [address] Oct, [facility] [place] [facility] [address] [id number] [place] [address] Oct, [facility] [place] [facility] [address] [id number] [place] [address] Sep, [facility] [place] [facility] [address] [id number], [place] [address] Sep, [facility] [place] [facility] [address] [id number], [place] [address] Sep, [facility] [place] [facility] [address] [id number] [place] [address] Sep, [facility] [place] [facility] [address] [id number] [place] [address] Sep, [facility] [place] [facility] [address] [id number] [place] [address] Aug, [facility] [place] [facility] [address] [id number] [place] [address] 25 Aug, 2011 [facility] [place] [facility] [address] [id number] [place] [address] 17 Aug, 2011 [facility] [place] [facility] [address] [id number] [place] [address] 17 Aug, 2011 [facility] [place] [facility] [address] [id number] [place] [address] 16 Aug, 2011 [facility] [place] [facility] [address] [id number] [place] [address] 11 Aug, 2012 [facility] [place] [facility] [address] [id number] [place] [address] 11 Aug, 2012 [facility] [place] [facility] [address] [id number] [place] [address] 10 Aug, 2012 [facility] [place] [facility] [address] [id number] [place] [address] 10 Aug, 2012 [facility] [place] [facility] [address] [id number] [place] [address] 09 Aug, 2012 [facility] [place] [facility] [address] [id number] [place] [address] 05 Aug, 2012 [facility] [place] [facility] [address] [id number] [place] [address] 04 Aug, 2012 [facility] [place] [facility] [address] [id number] [place] [address] 17 Sep, 2011 [facility] [place] [facility] [address] [id number], [place] [address] 13 Sep, 2011 [facility] [place] [facility] [address] [id number] [place] [address] 13 Sep, 2011 [facility] [place] [facility] [address] [id number] [place] [address] 11 Sep, 2011 [facility] [place] [facility] [address] [id number] [place] [address] 10 Jul, 2012 [facility] [place] [facility] [address] [id number] [place] [address] 08 Jul, 2012 [facility] [place] [facility] [address] [id number] [place] [address] 16 Jun, 2012 [facility] [place] [facility] [address] [id number] [place] [address] 14 Jun, 2012 [facility] [place] [facility] [address] [id number] [place] [address] 17 May, 2012 [facility] [place] [facility] [address] [id number] [place] [address] 17 May, 2012 [facility] [place] [facility] [address] [id number] [place] [address] 13 May, 2012 [facility] [place] [facility] [address] [id number] [place] [address] May, [facility] [place] [facility] [address] [id number] [place] [address] Apr, [facility] [place] [facility] [address] [id number] [place] [address] Apr, [facility] [place] [facility] [address] [id number] [place] [address] Apr, [facility] [place] [facility] [address] [id number] [place] [address] Apr, [facility] [place] [facility] [address] [id number] [place] [address] Apr, [facility] [place] [facility] [address] [id number] [place] [address] March, [facility] [place] [facility] [address] [id number] [place] [address] March, [facility] [place] [facility] [address] [id number] [place] [address] March, [facility] [place] [facility] [address] [id number] [place] [address] March, [facility] [address] [id number] [place] [address] March, [facility] [place] [facility] [address] [id number] [place] [address] Feb, [facility] [place] [facility] [address] [id number] [place] [address] Feb, [facility] [place] [facility] [address] [id number] [place] [address] Jan, [facility] [place] [facility] [address] [id number] [place] [address] Jan, [facility] [place] [facility] [address] [id number] [place] [address] Jan, [facility] [place] [facility] [address] [id number] [place] [address] 79[address] Dec, [facility] [place] [facility] [address] [id number] [place] [address] 1990 Nov, [facility] [place] [facility] [address] [id number] [place] [address] Nov, [facility] [place] [facility] [address] [id number] [place] [address] Nov, [facility] [place] [facility] [address] [id number] [place] [address] Nov, [facility] [place] [facility] [address] [id number] [place] [address] Oct, [facility] [place] [facility] [address] [id number] [place] [address] Oct, [facility] [place] [facility] [address] [id number] [place] [address] Sep, [facility] [place] [facility] [address] [id number] [place] [address] Sep, [facility] [place] [facility] [address] [id number] [place] [address] 10 Sep, 2011 [facility] [place] [facility] [address] [id number] [place] [address] 10 Sep, 2011 [facility] [place] [facility] [address] [id number] [place] [address] 08 Sep, 2011 [facility] [place] [facility] [address] [id number] [place] [address] 16 Jun, 2011 [facility] [place] [facility] [address] [id number] [place] [address] 15 Dec, 2010 [facility] [place] [facility] [address] [id number] [place] [address] Sep, [facility] [place] [facility] [address] [id number] [place] [address] 29 Aug, 2010 [facility] [place] [facility] [address] [id number] [place] [address] Aug, [facility] [place] [facility] [address] [id number] [place] [address] Aug, [facility] [place] [facility] [address] [id number] [place] [address] Aug, [facility] [place] [facility] [address] [id number] [place] [address] Aug, [facility] [place] [facility] [address] [id number] [place] [address] 17 Jun, 2010 [facility] [place] [facility] [address] [id number] [place] [address] 13 Feb, 2010 [facility] [place] [facility] [address] [id number] [place] [address] 06 Sep, 2009 [facility] [place] [facility] [address] [id number] [place] [address] 89[address] 11 Aug, 2009 [facility] [place] [facility] [address] [id number] [place] [address] Apr, [facility] [address] [facility] [id number] [place] [address] March, IMMUNIZATIONS No Known Immunizations SOCIAL HISTORY Never Assessed REASON FOR VISIT Medicare AWV - Initial Visit -- osvaldo lieberman PLAN OF CARE Activity Details Follow Up 1 Year Reason: VITAL SIGNS Height 61 in 2018-02-13 Weight 166.0 lbs 2018-02-13 Temperature 98.0 degrees Fahrenheit 2018-02-13 Heart Rate 78 bpm 2018-02-13 Respiratory Rate 20 2018-02-13 BMI 31.36 kg/m2 2018-02-13 Blood pressure systolic 118 mmHg 2018-02-13 Blood pressure diastolic 70 mmHg 2018-02-13 MEDICATIONS Medication Instructions Dosage Frequency Start Date End Date Duration Status Blood Glucose Test - and Lancets ICD10- E11.65 2 times a day- 3 times weekly as directed Jan, Active Metformin HCl 500 mg Orally Twice a day 1 tablet with meals 12h 30 days Active Blood Glucose Monitor System w/Device ICD10- E11.65 2 times a day -3 times weekly. as directed Jan, Active Rosuvastatin Calcium 20 MG TAKE ONE TABLET BY MOUTH ONCE DAILY 30 Active RESULTS No Results PROCEDURES Procedure Date Ordered Result Body Site ANNUAL ANSLEY VST; PERSNL PPS INIT February 13, 2018 FALL RISK ASSESSMENT DOCD February 13, 2018 NEG SCR D PT NOT ELIG F/U/PLN DOC February 13, 2018 PT TOBACCO SCREEN RCVD TLK February 13, 2018 INSTRUCTIONS MEDICATIONS ADMINISTERED No Known Medications MEDICAL (GENERAL) HISTORY Type Description Date Medical History Scoliosis Medical History Bipolar Surgical History right hip replacement Surgical History c-sections x4 Hospitalization History Pneumonia 2011
--- OUTSIDE RECORDS SUMMARY | 2018-06-10 19:49 | XMS REPORT ---
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 Attendant Name Role Phone ASHOKPHILLIP PRIDEHANY Unavailable PROBLEMS Type Condition ICD9-CM Code TPL63-FT Code Onset Dates Condition Status SNOMED Code Problem Lumbago with sciatica, right side M54.41 Active 901627014 Problem Tension headache G44.209 Active 849350411 Problem Other chronic pain G89.29 Active 81245135 Problem COPD with exacerbation J44.1 Active 691317629 Problem Fibromyalgia M79.7 Active 520143703 Problem Peripheral polyneuropathy G62.9 Active 59976836 Problem Chest pain, unspecified type R07.9 Active 10071591 Problem Retinitis pigmentosa H35.52 Active 58983085 Problem Cervical disc disorder at C5-C6 level with radiculopathy M50.122 Active 640526139 Problem Carpal tunnel syndrome of left wrist G56.02 Active [id number] Problem Anxiety state, unspecified F41.1 Active 690503883 Problem Low back pain M54.5 Active 221314690 Problem Major depressive disorder, recurrent episode, moderate F33.1 Active 966559301 Problem Calculus of gallbladder without cholecystitis without obstruction K80.20 Active 275637744 Problem Generalized anxiety disorder F41.1 Active 45261062 Problem Panic attacks F41.0 Active 935299875 Problem Type 2 diabetes mellitus with hyperglycemia, without long-term current use of insulin E11.65 Active 50687503 Problem Insomnia G47.00 Active 737824339 Problem 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 Active 28068063 Problem Tobacco use Z72.0 Active 725911099 Problem Mixed hyperlipidemia E78.2 Active 554940306 ALLERGIES No Information ENCOUNTERS Encounter Location Date Diagnosis [facility] [address] [facility] [id number] [address] Jun, [facility] [address] [address] Jun, [facility] [id number] [place] [address] 07276- 7900 May, [facility] [id number] [place] [address] 27722- 3930 May, Cough R05 [facility] [id number] [place] [address] 84517- 9852 May, [facility] [id number] [place] [address] 76782- 5801 May, COPD with exacerbation J44.1 [facility] [id number] [place] [address] 53134- 3467 May, Type 2 diabetes mellitus with hyperglycemia, without long- term current use of insulin E11.65 ; Peripheral polyneuropathy G62.9 ; Cough R05 and COPD with exacerbation J44.1 [facility] [id number] [place] [address] 68385- 4379 May, [facility] [id number] [place] [address] 63007- 5080 May, COPD with exacerbation J44.1 and Tobacco abuse counseling Z71.6 [facility] [id number] [place] [address] 18930- 4770 May, [facility] [id number] [place] [address] 52333- 3659 May, [facility] [id number] [place] [address] 59588 -9105 May, Numbness of left hand R20.0 and Carpal tunnel syndrome of left wrist G56.02 [facility] [id number] [place] [address] 88954- 7240 May, [facility] [id number] [place] [address] 54907- 8741 Apr, Type 2 diabetes mellitus with hyperglycemia, without long- term current use of insulin E11.65 [facility] [id number] [place] [address] 01983- 6008 March, Anxiety state, unspecified F41.1 [place] [id number] [place] [address] 60378- 9195 Feb, [place] [address] 93305- 6690 Feb, Medicare annual wellness visit, initial Z00.00 ; Type 2 diabetes mellitus with hyperglycemia, without long-term current use of insulin E11.65 ; Major depressive disorder, recurrent episode, moderate F33.1 ; Mixed hyperlipidemia E78.2 ; Fibromyalgia M79.7 ; Retinitis pigmentosa H35.52 ; Panic attacks F41.0 ; Facial skin lesion L98.9 ; Fullness of neck R22.1 and Screening for colon cancer Z12.11 [place] [address] 96547- 7146 Feb, Type 2 diabetes mellitus with hyperglycemia, without long- term current use of insulin E11.65 [facility] [id number] [place] [address] 49881- 4261 Jan, [place] [address] 66197- 1335 Jan, Asymptomatic microscopic hematuria R31.21 ; Chest pain, unspecified type R07.9 and Generalized anxiety disorder F41.1 [facility] [id number] [place] [address] 81896- 8137 Jan, [place] [id number] [place] [address] 47843- 9602 Jan, [facility] [id number] [place] [address] 72960 -4981 Dec, [place] [address] 80891- 4042 Dec, [place] [address] [place] [address]- 6107 Dec, [facility] [id number] [place] [address] 91570- 9320 Dec, [facility] [address] 52178- 8514 14 Dec, 2017 [place] [address] 72396- 9591 Dec, Tension headache G44.209 [place] [address] 88088- 9854 09 Dec, 2017 Elevated LFTs R79.89 ; Type 2 diabetes mellitus with hyperglycemia, without long-term current use of insulin E11.65 ; Abdominal bloating R14.0 and Other fatigue R53.83 [facility] [id number] [place] [address] 91768- 9358 08 Dec, 2017 Elevated ALT measurement R74.0 [place] [id number] [place] [address] 06686- 6601 Nov, Type 2 diabetes mellitus with hyperglycemia, without long- term current use of insulin E11.65 and Mixed hyperlipidemia E78.2 [facility] [place] [id number] [place] [address] 96518- 2923 Oct, [facility] [id number] [place] [address] 62631- 4592 Oct, Elevated ALT measurement R74.0 [facility] [place] [id number] [place] [address] 14203- 6591 Oct, [place] [address] 36722- 4738 Oct, [place] [address] 03964- 7272 Oct, Breast cancer screening Z12.31 [place] [address] 92249- 0195 Sep, Tension headache G44.209 ; Cervical disc disorder at C5-C6 level with radiculopathy M50.122 ; Other fatigue R53.83 ; Breast pain, left N64.4 ; Vertigo R42 and Abnormal tympanic membrane of left ear H73.92 [facility] [id number] [place] [address] 71178 -9028 Sep, Screening breast examination Z12.[address] 24997- 6862 Sep, [address] 95850- 1253 Sep, Mixed hyperlipidemia E78.2 and Type 2 diabetes mellitus with hyperglycemia, without long-term current use of insulin E11.[address] 08715- 9707 Jul, [address] 75569- 8503 Jul, Lumbago with sciatica, right side M54.41 and Other chronic pain G89.[address] 43481- 1228 May, Type 2 diabetes mellitus with hyperglycemia, without long- term current use of insulin E11.65 ; Low back pain M54.5 ; Tobacco use Z72.0 ; Mixed hyperlipidemia E78.2 ; Lateral epicondylitis of right elbow M77.11 and 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 [place] [id number] [place] [address] 76198- 0167 Apr, [address] 99479- 6329 Apr, Low back pain M54.5 [place] [id number] [place] [address] 10561- 5061 Apr, Pain in thoracic spine M54.6 [facility] [address] 79525 -6663 March, Lumbosacral neuritis M54.17 [facility] [address] [place] [address] 95516- 8500 March, Low back pain M54.5 [facility] [id number] [address]- 1806 March, [facility] [id number] [place] [address] 29811- 2955 March, [facility] [id number] [place] [address] 24987- 9305 March, [facility] [id number] [place] [address] 86541- 7326 Feb, [facility] [id number] [place] [address] 70092- 8669 Feb, [facility] [id number] [place] [address] 43595- 8532 Feb, [facility] [id number] [place] [address] 92887- 5126 Feb, Low back pain M54.5 and Pain in thoracic spine M54.6 [facility] [address] [place] [address] 15781- 7971 Jan, Panic attacks F41.0 ; Type 2 diabetes mellitus with hyperglycemia, without long-term current use of insulin E11.65 and Other chest pain R07.89 [facility] [address] [address]- 6446 Jan, [facility] [id number] [place] [address] 32606- 0036 Jan, Type 2 diabetes mellitus with hyperglycemia, without long- term current use of insulin E11.65 [facility] [address] [address]- 0111 Jan, Pain in thoracic spine M54.6 [facility] [id number] [address]- 5651 Jan, Type 2 diabetes mellitus with hyperglycemia, without long- term current use of insulin E11.65 and Elevated liver enzymes R74.8 [facility] [address] [place] [address] 02825- 4852 Jan, [facility] [id number] [place] [address] 53035- 0969 Dec, Tobacco use Z72.0 ; Prediabetes R73.09 ; Elevated liver enzymes R74.8 ; Elevated fasting glucose R73.01 ; Elevated ALT measurement R74.0 ; Pain in thoracic spine M54.6 ; Panic attacks F41.0 and Type 2 diabetes mellitus with hyperglycemia, without long-term current use of insulin E11.65 [facility] [address] [place] [address] 84056 -9179 Jun, Abdominal pain, right upper quadrant R10.11 [place] [id number] [place] [address] 83414- 1475 Jun, [place] [id number] [place] [address] 39511- 6368 Jun, [place] [id number] [place] [address] 22034- 5396 Jun, [place] [address] [place] [address] 03906- 9000 May, Routine gynecological examination Z01.419 ; Encounter for Papanicolaou smear for cervical cancer screening Z12.4 ; Screening breast examination Z12.39 ; Vaginal discharge N89.8 and Candidal vaginitis B37.3 [place] [id number] [place] [address] 69763- 5014 May, [place] [id number] [place] [address] 35700- 9596 May, Prediabetes R73.09 ; Elevated ALT measurement R74.0 ; Elevated fasting glucose R73.01 and Palpitations R00.2 [place] [id number] [place] [address] 70014- 8771 Feb, [facility] [id number] [place] [address] 65866- 4647 Feb, [facility] [id number] [place] [address] 62381- 5085 Feb, Generalized anxiety disorder F41.1 and Major depressive disorder, recurrent episode, moderate F33.1 [facility] [address] 68256- 5112 Feb, Generalized anxiety disorder F41.1 ; Low back pain M54.5 and Insomnia G47.00 [place] [address] 09780- 5119 Jan, Elevated fasting glucose R73.01 and Elevated ALT measurement R74.0 [place] [address] 55562- 7643 Jan, Generalized anxiety disorder F41.1 ; Low back pain M54.5 and Screening cholesterol level Z13.220 [place] [id number] [place] [address] 40374- 6638 Dec, Scoliosis M41.9 and Anxiety F41.9 [place] [id number] [place] [address] 60543- 7407 Feb, [facility] [id number] [place] [address] 61828- 6638 Feb, [facility] [id number] [place] [address] 75728- 6336 Apr, [facility] [address] 93520- 3340 March, [facility] [id number] [place] [address] 38763- 7111 March, [facility] [id number] [place] [address] 18450- 9447 March, [facility] [place] [facility] [address] [id number] [place] [address]- 6848 March, [facility] [place] [facility] [address] [id number] [place] [address]- 5852 March, [facility] [place] [facility] [address] [id number] [place] [address]- 4346 March, [facility] [place] [facility] [address] [id number] [place] [address]- 1511 March, [facility] [place] [facility] [address] [id number] [place] [address]- 5109 March, [facility] [place] [facility] [address] [id number] [place] [address]- 1106 Feb, [facility] [place] [facility] [address] [id number] [place] [address]- 0510 Feb, [facility] [place] [facility] [address] [id number] [place] [address]- 4554 Feb, [facility] [place] [facility] [address] [id number] [place] [address]- 5323 Feb, [facility] [place] [facility] [address] [id number] [place] [address]- 4909 Jan, [facility] [place] [facility] [address] [id number] [place] [address]- 1650 Jan, [facility] [place] [facility] [address] [id number] [place] [address]- 2945 Jan, [facility] [place] [facility] [address] [id number] [place] [address]- 9242 Jan, [facility] [place] [facility] [address] [id number] [place] [address]- 6822 Jan, [facility] [place] [facility] [address] [id number] [place] [address]- 5349 Jan, [facility] [place] [facility] [address] [id number] [place] [address]- 1396 Jan, [facility] [address] [id number] [place] [address]- 9616 Dec, [facility] [place] [facility] [address] [id number] [place] 8776 Dec, [facility] [place] [facility] [address] [id number] [place] [address]- 6296 Dec, [facility] [place] [facility] [address] [id number] [place] [address]- 2690 Dec, [facility] [place] [facility] [address] [id number] [place] [address]- 2967 Dec, [facility] [place] [facility] [address] [id number] [place] [address]- 8644 Dec, [facility] [place] [facility] [address] [facility] [id number] [place] [address]- 3729 Nov, [facility] [place] [facility] [address] [id number] [place] [address]- 9697 Nov, [facility] [place] [facility] [address] [id number] [place] [address]- 1589 Nov, [facility] [place] [facility] [address] [facility] [id number] [place] [address]- 6681 Nov, [facility] [place] [facility] [address] [id number] [place] [address]- 9235 Nov, [facility] [place] [facility] [address] [id number] [place] [address]- 6242 Nov, [facility] [place] [facility] [address] [id number] [place] [address]- 0337 Nov, [facility] [place] [facility] [address] [id number] [place] [address]- 9161 Oct, [facility] [place] [facility] [address] [id number] [place] [address]- 1197 Oct, [facility] [place] [facility] [address] [id number] [place] [address]- 5404 Oct, [facility] [place] [facility] [address] [id number] [place] 1587 Oct, [facility] [place] [facility] [address] [id number] [place] [address]- 7000 Sep, [facility] [place] [facility] [address] [id number] [place] [address]- 9484 Sep, [facility] [place] [facility] [address] [id number] [place] [address]- 9252 Sep, [facility] [place] [facility] [address] [id number] [place] [address]- 4558 Sep, [facility] [place] [facility] [address] [id number] [place] [address]- 1564 Sep, [facility] [place] [facility] [address] [id number] [place] [address]- 4210 Sep, [facility] [place] [facility] [address] [id number] [place] [address]- 8748 Aug, [facility] [place] [facility] [address] [id number] [address]- 6465 Aug, [facility] [place] [facility] [address] [id number], [place] [address]- 6290 Aug, [facility] [place] [facility] [address] [id number], [place] [address]- 4399 Aug, [facility] [place] [facility] [address] [id number], [place] [address]- 7311 Aug, [facility] [place] [facility] [address] [id number], [place] [address]- 3186 Aug, [facility] [place] [facility] [address] [id number], [place] [address]- 3109 Aug, [facility] [place] [facility] [address] [id number], [place] [address]- 7944 Jul, [facility] [address] [id number] [place] [address]- 8334 Jul, [facility] [place] [facility] [address] [id number] [place] [address]- 3894 Jun, [facility] [address] [id number] [place] [address]- 9344 May, [facility] [place] [facility] [address] [id number] [place] [address]- 0748 May, [facility] [address] [id number] [place] [address]- 6088 May, [facility] [address] [id number] [place] [address]- 5045 Apr, [facility] [address] [id number] [place] [address]- 3802 Apr, [facility] [address] [id number] [place] [address]- 1960 Apr, [facility] [address] [id number] [place] [address]- 6251 March, [facility] [address] [id number] [place] [address]- 5071 March, [facility] [address] [id number] [place] [address]- 9030 March, [facility] [place] [facility] [address] [id number] [place] [address]- 8291 Feb, [facility] [place] [facility] [address] [id number] [place] [address]- 2883 22 Feb, 2013 [facility] [place] [facility] [address] [id number] [place] [address]- 2626 15 Feb, 2013 [facility] [place] [facility] [address] [id number] [place] [address]- 6017 Jan, [facility] [place] [facility] [address] [id number] [place] [address]- 1649 19 Jan, 2013 [facility] [address] [id number] [place] [address]- 3250 18 Jan, 2013 [facility] [place] [facility] [address] [id number] [place] [address]- 4746 15 Jan, 2013 [facility] [address] [id number] [place] [address]- 2193 14 Jan, 2013 [facility] [place] [facility] [address] [id number] [place] [address]- 0831 12 Jan, 2013 [facility] [address] [id number] [place] [address]- 1392 05 Jan, 2013 [facility] [place] [facility] [address] [id number] [place] [address]- 0583 28 Dec, 2012 [facility] [place] [facility] [address] [id number] [place] [address]- 4814 18 Dec, 2012 [facility] [address] [id number] [place] [address]- 5723 15 Dec, 2012 [facility] [address] [id number] [place] [address]- 4204 14 Dec, 2012 [facility] [place] [facility] [address] [id number] [place] [address]- 4623 05 Dec, 2012 [facility] [place] [facility] [address] [id number] [place] [address]- 3150 Nov, [facility] [place] [facility] [address] [id number] [place] [address]- 7456 Nov, [facility] [place] [facility] [address] [id number] [place] [address]- 7889 Nov, [facility] [place] [facility] [address] [id number] [place] [address]- 2568 02 Nov, 2012 [facility] [place] [facility] [address] [id number] [address]- 5276 Oct, [facility] [place] [facility] [address] [id number] [place] [address]- 1126 31 Oct, 2012 [facility] [place] [facility] [address] [id number] [place] [address]- 5964 Oct, [facility] [place] [facility] [address] [facility] [id number] [place] [address]- 1526 Oct, [facility] [place] [facility] [address] [id number] [place] [address]- 6543 Oct, [facility] [place] [facility] [address] [id number] [place] [address]- 7345 Oct, [facility] [place] [facility] [address] [id number] [place] [address]- 3106 Oct, [facility] [place] [facility] [address] [id number] [place] [address]- 6286 Oct, [facility] [place] [facility] [address] [id number] [place] [address]- 2365 Oct, [facility] [place] [facility] [address] [id number] [place] [address]- 9621 Sep, [facility] [place] [facility] [address] [id number] [place] [address] 16 Sep, 2012 [facility] [place] [facility] [address] [id number] [address] Sep, [facility] [place] [facility] [address] [id number], [place] [address] Sep, [facility] [place] [facility] [address] [id number] [place] [address] Sep, [facility] [place] [facility] [address] [facility] [id number] [place] [address] Aug, [facility] [place] [facility] [address] [id number] [place] [address] Aug, [facility] [place] [facility] [address] [id number] [place] [address] 17 Aug, 2011 [facility] [address] [id number] [place] [address] 17 Aug, 2011 [facility] [place] [facility] [address] [id number] [place] [address] 16 Aug, 2011 [facility] [address] [id number] [place] [address] 11 Aug, 2012 [facility] [place] [facility] [address] [id number] [place] [address] 11 Aug, 2012 [facility] [address] [id number] [place] [address] 10 Aug, 2012 [facility] [place] [facility] [address] [id number] [place] [address] 10 Aug, 2012 [facility] [place] [facility] [address] [id number] [place] [address] 09 Aug, 2012 [facility] [place] [facility] [address] [id number] [place] [address] 05 Aug, 2012 [facility] [place] [facility] [address] [id number] [place] [address] 04 Aug, 2012 [facility] [place] [facility] [address] [id number] [place] [address] 17 Sep, 2011 [facility] [place] [facility] [address] [id number] [place] [address] 13 Sep, 2011 [facility] [place] [facility] [address] [id number] [place] [address] 13 Sep, 2011 [facility] [place] [facility] [address] [id number] [place] [address] 11 Sep, 2011 [facility] [place] [facility] [address] [id number] [place] [address] 10 Sep, 2011 [facility] [place] [facility] [address] [id number] [place] [address] 08 Jul, 2012 [facility] [place] [facility] [address] [id number] [place] [address] 16 Jun, 2012 [facility] [place] [facility] [address] [id number] [place] [address] Jun, [facility] [place] [facility] [address] [id number] [place] [address] 17 May, 2012 [facility] [place] [facility] [address] [id number] [place] [address] May, [facility] [place] [facility] [address] [id number] [place] [address] May, [facility] [place] [facility] [address] [id number] [place] [address] May, [facility] [place] [facility] [address] [id number] [place] [address] Apr, [facility] [place] [facility] [address] [id number] [place] [address] Apr, [facility] [place] [facility] [address] [id number] [place] [address] Apr, [facility] [place] [facility] [address] [id number] [place] [address] Apr, [facility] [place] [facility] [address] [id number] [place] [address] Apr, [facility] [place] [facility] [address] [id number] [place] [address] March, [facility] [place] [facility] [address] [id number] [place] [address] March, [facility] [place] [facility] [address] [id number] [place] [address] March, [facility] [place] [facility] [address] [id number] [place] [address] March, [facility] [place] [facility] [address] [id number] [place] [address] March, [facility] [address] [id number] [place] [address] Feb, [facility] [place] [facility] [address] [id number] [place] [address] Feb, [facility] [address] [id number] [place] [address] Jan, [facility] [place] [facility] [address] [id number] [place] [address] Jan, [facility] [address] [id number] [place] [address] Jan, [facility] [place] [facility] [address] [id number] [place] [address] Dec, [facility] [address] [facility] [id number] [place] [address] Nov, [facility] [place] [facility] [address] [id number] [place] [address] Nov, [facility] [address] [facility] [id number] [place] [address] Nov, [facility] [place] [facility] [address] [facility] [id number] [place] [address] Nov, [facility] [address] [id number] [place] [address] Oct, [facility] [place] [facility] [address] [id number] [place] [address] Oct, [facility] [place] [facility] [address] [id number] [place] [address] Sep, [facility] [place] [facility] [address] [id number] [place] [address] Sep, [facility] [place] [facility] [address] [facility] [id number] [place] [address] Sep, [facility] [place] [facility] [address] [id number] [place] [address] 10 Sep, 2011 [facility] [place] [facility] [address] [id number] [place] [address] 08 Sep, 2011 [facility] [place] [facility] [address] [id number] [place] [address] 16 Jun, 2011 [facility] [place] [facility] [address] [id number] [place] [address] 15 Dec, 2010 [facility] [place] [facility] [address] [id number] [place] [address] Sep, [facility] [place] [facility] [address] [id number] [place] [address] 29 Aug, 2010 [facility] [place] [facility] [address] [id number] [place] [address] Aug, [facility] [place] [facility] [address] [id number] [place] [address] Aug, [facility] [place] [facility] [address] [id number] [place] [address] Aug, [facility] [place] [facility] [address] [id number] [place] [address] Aug, [facility] [place] [facility] [address] [id number] [place] [address] 17 Jun, 2010 [facility] [place] [facility] [address] [id number] [place] [address] 13 Feb, 2010 [facility] [place] [facility] [address] [id number] [place] [address] 06 Sep, 2009 [facility] [place] [facility] [address] [id number] [place] [address] 254 11 Aug, 2009 [facility] [place] [facility] [address] [id number] [place] [address] 18 Apr, 2009 [facility] [place] [facility] [address] [id number] [place] [address] March, IMMUNIZATIONS No Known Immunizations SOCIAL HISTORY Never Assessed REASON FOR VISIT Requests return call PLAN OF CARE VITAL SIGNS MEDICATIONS Unknown Medications RESULTS No Results PROCEDURES No Known procedures INSTRUCTIONS MEDICATIONS ADMINISTERED No Known Medications MEDICAL (GENERAL) HISTORY Type Description Date Medical History Scoliosis Medical History Bipolar Surgical History right hip replacement Surgical History c-sections x4 Hospitalization History Pneumonia 2012
--- OUTSIDE RECORDS SUMMARY | 2018-06-10 19:50 | XMS REPORT ---
Author Author ASHOK ROMY [facility] Address [address] [place] [address] Care Team Providers Care Assistant Hairstylist Name Role Phone PHILLIP PULIDOHANY Unavailable PROBLEMS Type Condition ICD9-CM Code ICJ49-IO Code Onset Dates Condition Status SNOMED Code Problem Lumbago with sciatica, right side M54.41 Active 731810818 Problem Tension headache G44.209 Active 349651623 Problem Other chronic pain G89.29 Active 13190116 Problem COPD with exacerbation J44.1 Active 327288017 Problem Fibromyalgia M79.7 Active 529882646 Problem Peripheral polyneuropathy G62.9 Active 65957171 Problem Chest pain, unspecified type R07.9 Active 93662947 Problem Retinitis pigmentosa H35.52 Active 23689488 Problem Cervical disc disorder at C5-C6 level with radiculopathy M50.122 Active 546650150 Problem Carpal tunnel syndrome of left wrist G56.02 Active 891783864865019 Problem Anxiety state, unspecified F41.1 Active 657141804 Problem Low back pain M54.5 Active 333868880 Problem Major depressive disorder, recurrent episode, moderate F33.1 Active 795588941 Problem Calculus of gallbladder without cholecystitis without obstruction K80.20 Active 418329008 Problem Generalized anxiety disorder F41.1 Active 31627534 Problem Panic attacks F41.0 Active 557492584 Problem Type 2 diabetes mellitus with hyperglycemia, without long-term current use of insulin E11.65 Active 97095283 Problem Insomnia G47.00 Active 819895654 Problem 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 Active 55750184 Problem Tobacco use Z72.0 Active 138621762 Problem Mixed hyperlipidemia E78.2 Active 502398040 ALLERGIES Substance Reaction Event Type Date Status Sulfamethoxazole-Trimethoprim Unknown Drug Allergy Jan, Active Codeine Sulfate Unknown Drug Allergy Jan, Active ENCOUNTERS Encounter Location Date Diagnosis [facility] [id number] [place] [address] 69083- 2966 Jun, [facility] [id number] [place] [address] 45630- 5117 May, [facility] [id number] [place] [address] 26268- 9317 May, Type 2 diabetes mellitus with hyperglycemia, without long- term current use of insulin E11.65 ; Peripheral polyneuropathy G62.9 ; Cough R05 and COPD with exacerbation J44.1 [facility] [id number] [place] [address] 93210- 5913 May, [facility] [address] 21763- 8933 May, COPD with exacerbation J44.1 and Tobacco abuse counseling Z71.6 [facility] [id number] [place] [address] 09658- 0837 May, [facility] [id number] [place] [address] 44372- 0617 May, [facility] [id number] [place] [address] 21896 -0994 May, Numbness of left hand R20.0 and Carpal tunnel syndrome of left wrist G56.02 [facility] [id number] [place] [address] 55340- 5903 May, [facility] [id number] [place] [address] 90173- 8657 Apr, Type 2 diabetes mellitus with hyperglycemia, without long- term current use of insulin E11.65 [facility] [id number] [place] [address] 75096- 2029 March, Anxiety state, unspecified F41.1 [facility] [id number] [place] [address] 47215- 0555 Feb, [facility] [id number] [place] [address] 25041- 0154 Feb, Medicare annual wellness visit, initial Z00.00 ; Type 2 diabetes mellitus with hyperglycemia, without long-term current use of insulin E11.65 ; Major depressive disorder, recurrent episode, moderate F33.1 ; Mixed hyperlipidemia E78.2 ; Fibromyalgia M79.7 ; Retinitis pigmentosa H35.52 ; Panic attacks F41.0 ; Facial skin lesion L98.9 ; Fullness of neck R22.1 and Screening for colon cancer Z12.11 [facility] [id number] [place] [address] 004256- 7552 Feb, Type 2 diabetes mellitus with hyperglycemia, without long- term current use of insulin E11.65 [facility] [address] 797526- 9852 Jan, [facility] [address] 51703- 4178 Jan, Asymptomatic microscopic hematuria R31.21 ; Chest pain, unspecified type R07.9 and Generalized anxiety disorder F41.1 [facility] [id number] [place] [address] 78996- 7853 Jan, [facility] [address] 87204- 8151 Jan, [facility] [id number] [place] [address] 71738 -0052 Dec, [facility] [id number] [place] [address] 27305- 2068 Dec, [facility] [id number] [place] [address] 55126- 3666 Dec, [facility] [id number] [place] [address] 360440- 9333 Dec, [facility] [id number] [place] [address] 15455230- 9746 Dec, [facility] [address] 70075- 8948 Dec, Tension headache G44.209 [facility] [id number] [place] [address] 61833- 3165 Dec, Elevated LFTs R79.89 ; Type 2 diabetes mellitus with hyperglycemia, without long-term current use of insulin E11.65 ; Abdominal bloating R14.0 and Other fatigue R53.83 [facility] [facility] [address] 33815- 0525 08 Dec, 2017 Elevated ALT measurement R74.0 [facility] [id number] [place] [address] 01923- 1441 Nov, Type 2 diabetes mellitus with hyperglycemia, without long- term current use of insulin E11.65 and Mixed hyperlipidemia E78.2 [facility] [id number] [place] [address] 54914- 8871 Oct, [facility] [address] 10030- 7257 Oct, Elevated ALT measurement R74.0 [facility] [id number] [place] [address] 34213- 3338 Oct, [facility] [id number] [place] [address] 47085- 8184 Oct, [facility] [id number] [place] [address] 53809- 3714 Oct, Breast cancer screening Z12.31 [facility] [id number] [place] [address] 88052- 0872 Sep, Tension headache G44.209 ; Cervical disc disorder at C5-C6 level with radiculopathy M50.122 ; Other fatigue R53.83 ; Breast pain, left N64.4 ; Vertigo R42 and Abnormal tympanic membrane of left ear H73.92 [facility] [id number] [place] [address] 80321 -2435 Sep, Screening breast examination Z12.39 [facility] [id number] [address]- 3369 Sep, [facility] [id number] [place] [address] 65349- 6767 Sep, Mixed hyperlipidemia E78.2 and Type 2 diabetes mellitus with hyperglycemia, without long-term current use of insulin E11.65 [facility] [id number] [place] [address] 57717- 7563 Jul, [facility] [id number] [place] [address] 72660- 4248 Jul, Lumbago with sciatica, right side M54.41 and Other chronic pain G89.29 [facility] [id number] [place] [address] 09249- 6461 May, Type 2 diabetes mellitus with hyperglycemia, without long- term current use of insulin E11.65 ; Low back pain M54.5 ; Tobacco use Z72.0 ; Mixed hyperlipidemia E78.2 ; Lateral epicondylitis of right elbow M77.11 and 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 [facility] [id number] [place] [address] 28790- 9331 Apr, [facility] [facility] [id number] [place] [address] 58463- 3487 Apr, Low back pain M54.5 [facility] [id number] [place] [address] 11124- 4746 Apr, Pain in thoracic spine M54.6 [facility] [id number] [place] [address] 89561 -8680 March, Lumbosacral neuritis M54.17 [facility] [id number] [place] [address] 12814- 4109 March, Low back pain M54.5 [facility] [id number] [place] [address] 93111- 7853 March, [facility] [id number] [place] [address] 24186- 2251 March, [facility] [id number] [place] [address] 89567- 7639 March, [facility] [id number] [place] [address] 19553- 4160 Feb, [facility] [id number] [place] [address] 19699- 0149 Feb, [facility] [id number] [place] [address] 35927- 2564 Feb, [facility] [facility] [id number] [place] [address] 10994- 4861 Feb, Low back pain M54.5 and Pain in thoracic spine M54.6 [facility] [id number] [place] [address] 46720- 2231 Jan, Panic attacks F41.0 ; Type 2 diabetes mellitus with hyperglycemia, without long-term current use of insulin E11.65 and Other chest pain R07.89 [facility] [id number] [place] [address] 51990- 3003 Jan, [facility] [facility] [id number] [place] [address] 56267- 0648 Jan, Type 2 diabetes mellitus with hyperglycemia, without long- term current use of insulin E11.65 [facility] [facility] [id number] [place] [address] 35030- 4516 Jan, Pain in thoracic spine M54.6 [facility] [id number] [place] [address] 45385- 1925 Jan, Type 2 diabetes mellitus with hyperglycemia, without long- term current use of insulin E11.65 and Elevated liver enzymes R74.8 [facility] [facility] [id number] [place] [address] 65690- 5183 Jan, [facility] [facility] [id number] [place] [address] 75112- 0686 Dec, Tobacco use Z72.0 ; Prediabetes R73.09 ; Elevated liver enzymes R74.8 ; Elevated fasting glucose R73.01 ; Elevated ALT measurement R74.0 ; Pain in thoracic spine M54.6 ; Panic attacks F41.0 and Type 2 diabetes mellitus with hyperglycemia, without long-term current use of insulin E11.65 [facility] [id number] [place] [address] 96731 -3372 Jun, Abdominal pain, right upper quadrant R10.11 [facility] [id number] [place] [address] 16663- 5865 Jun, [facility] [facility] [address] 35683- 1867 Jun, [facility] [facility] [id number] [place] [address] 74821- 1829 Jun, [place] [address] 95711- 6297 May, Routine gynecological examination Z01.419 ; Encounter for Papanicolaou smear for cervical cancer screening Z12.4 ; Screening breast examination Z12.39 ; Vaginal discharge N89.8 and Candidal vaginitis B37.3 [facility] [facility] [id number] [place] [address] 67483- 4105 May, [facility] [id number] [place] [address] 55376- 5996 May, Prediabetes R73.09 ; Elevated ALT measurement R74.0 ; Elevated fasting glucose R73.01 and Palpitations R00.2 [facility] [id number] [place] [address] 13783- 9340 Feb, [facility] [facility] [id number] [place] [address] 42240- 8539 Feb, [facility] [facility] [id number] [place] [address] 29504- 2406 Feb, Generalized anxiety disorder F41.1 and Major depressive disorder, recurrent episode, moderate F33.1 [facility] [id number] [place] [address] 12748- 9853 Feb, Generalized anxiety disorder F41.1 ; Low back pain M54.5 and Insomnia G47.00 [facility] [id number] [place] [address] 56405- 7769 Jan, Elevated fasting glucose R73.01 and Elevated ALT measurement R74.0 [facility] [id number] [place] [address] 46028- 9603 Jan, Generalized anxiety disorder F41.1 ; Low back pain M54.5 and Screening cholesterol level Z13.220 [facility] [address] 12549- 2300 04 Dec, 2015 Scoliosis M41.9 and Anxiety F41.9 [facility] [id number] [place] [address] 52999- 3307 Feb, [facility] [id number] [place] [address] 28015- 5386 Feb, [facility] [id number] [place] [address] 72472- 2866 Apr, [facility] [id number] [place] [address] 72748- 7411 March, [facility] [id number] [place] [address] 52750- 3451 March, [facility] [id number] [place] [address] 29531- 5827 March, [facility] [id number] [place] [address] 51617- 5920 March, [facility] [id number] [place] [address] 21209- 0018 March, [facility] [id number] [place] [address] 73799- 3741 March, [facility] [id number] [place] [address]- 5555 March, [facility] [address] [id number] [place] [address]- 5148 March, [facility] [place] [facility] [address] [id number] [place] [address]- 3306 Feb, [facility] [place] [facility] [address] [id number] [place] [address]- 7740 Feb, [facility] [place] [facility] [address] [id number] [place] [address]- 7794 Feb, [facility] [place] [facility] [address] [id number] [place] [address]- 7677 Feb, [facility] [place] [facility] [address] [id number] [place] [address]- 7119 Jan, [facility] [place] [facility] [address] [id number] [place] [address]- 5816 Jan, [facility] [place] [facility] [address] [id number] [place] [address]- 6288 Jan, [facility] [place] [facility] [address] [id number] [place] [address]- 7529 Jan, [facility] [place] [facility] [address] [id number] [place] [address]- 1184 Jan, [facility] [place] [facility] [address] [id number] [place] [address]- 4077 Jan, [facility] [place] [facility] [address] [id number] [place] [address]- 3431 Jan, [facility] [place] [facility] [address] [id number] [place] [address]- 1964 Dec, [facility] [place] [facility] [address] [id number] [place] [address]- 1091 Dec, [facility] [place] [facility] [address] [id number] [place] 9634 Dec, [facility] [place] [facility] [address] [id number] [place] [address]- 3927 Dec, [facility] [place] [facility] [address] [id number] [place] [address]- 9446 Dec, [facility] [place] [facility] [address] [id number] [place] [address]- 9431 Dec, [facility] [place] [facility] [address] [id number] [place] [address]- 4150 Nov, [facility] [place] [facility] [address] [id number] [place] [address]- 0692 Nov, [facility] [place] [facility] [address] [id number] [place] [address]- 4783 Nov, [facility] [place] [facility] [address] [id number] [place] [address]- 7389 Nov, [facility] [place] [facility] [address] [id number] [place] [address]- 2561 Nov, [facility] [place] [facility] [address] [id number] [place] [address]- 6980 Nov, [facility] [place] [facility] [address] [id number] [place] [address]- 3361 Nov, [facility] [place] [facility] [address] [id number] [place] [address]- 6404 Oct, [facility] [place] [facility] [address] [id number] [place] [address]- 1549 Oct, [facility] [place] [facility] [address] [id number] [place] [address]- 1568 Oct, [facility] [place] [facility] [address] [id number] [place] [address]- 9233 Oct, [facility] [place] [facility] [address] [id number] [place] [address]- 8390 Sep, [facility] [place] [facility] [address] [id number] [place] [address]- 4627 Sep, [facility] [place] [facility] [address] [id number] [place] [address]- 9742 Sep, [facility] [place] [facility] [address] [id number] [place] [address]- 7249 Sep, [facility] [place] [facility] [address] [id number] [place] [address]- 5874 Sep, [facility] [place] [facility] [address] [id number] [place] [address]- 3781 Sep, [facility] [place] [facility] [address] [id number] [place] 3523 Aug, [facility] [place] [facility] [address] [id number] [place] [address]- 1538 Aug, [facility] [place] [facility] [address] [id number] [place] [address]- 7512 Aug, [facility] [place] [facility] [address] [id number] [place] [address]- 7203 Aug, [facility] [place] [facility] [address] [id number] [place] 9463 Aug, [facility] [place] [facility] [address] [facility] [id number] [place] [address]- 4949 Aug, [facility] [place] [facility] [address] [id number] [place] [address]- 0277 Aug, [facility] [place] [facility] [address] [id number] [place] [address]- 9856 Jul, [facility] [place] [facility] [address] [id number] [place] [address]- 7150 Jul, [facility] [place] [facility] [address] [id number] [place] [address]- 1400 Jun, [facility] [place] [facility] [address] [id number] [place] [address]- 8491 May, [facility] [place] [facility] [address] [id number] [place] [address]- 3748 May, [facility] [address] [id number] [place] [address]- 6044 May, [facility] [address] [id number] [place] [address]- 4996 Apr, [facility] [address] [id number] [place] [address]- 9362 Apr, [facility] [address] [id number] [place] [address]- 9677 Apr, [facility] [address] [id number] [place] [address]- 0111 March, [facility] [address] [id number] [place] [address]- 8186 March, [facility] [address] [id number] [place] [address]- 7053 March, [facility] [address] [id number] [place] [address]- 9871 Feb, [facility] [address] [id number] [place] [address]- 0599 Feb, [facility] [address] [id number] [place] [address]- 8053 Feb, [facility] [address] [id number] [place] [address]- 0540 28 Jan, 2013 [facility] [address] [id number] [place] [address]- 8329 Jan, [facility] [place] [facility] [address] [id number] [place] [address]- 1754 18 Jan, 2013 [facility] [address] [id number] [place] [address]- 8165 15 Jan, 2013 [facility] [address] [id number] [place] [address]- 9443 14 Jan, 2013 [facility] [address] [id number] [place] [address]- 5572 12 Jan, 2013 [facility] [address] [id number] [place] [address]- 4776 05 Jan, 2013 [facility] [address] [facility] [id number] [place] [address]- 5891 28 Dec, 2012 [facility] [address] [id number] [place] [address]- 2531 18 Dec, 2012 [facility] [address] [id number] [place] [address]- 5389 15 Dec, 2012 [facility] [address] [facility] [id number] [place] [address]- 6767 14 Dec, 2012 [facility] [address] [facility] [id number] [place] [address]- 5324 05 Dec, 2012 [facility] [address] [facility] [id number] [place] [address]- 2905 Nov, [facility] [address] [facility] [id number] [place] [address]- 5050 Nov, [facility] [address] [facility] [id number] [place] [address]- 8617 Nov, [facility] [address] [facility] [id number] [place] [address] Nov, [facility] [address] [id number] [place] [address] Oct, [facility] [address] [id number] [place] [address] Oct, [facility] [place] [facility] [address] [facility] [id number] [place] [address] Oct, [facility] [address] [facility] [id number] [place] [address] Oct, [facility] [place] [facility] [address] [id number] [id number] [address] Oct, [facility] [place] [facility] [address] [id number] [id number] [address] Oct, [facility] [place] [facility] [address] [id number] [place] [address] Oct, [facility] [place] [facility] [address] [id number] [place] [address] Oct, [facility] [place] [facility] [address] [id number] [place] [address] Oct, [facility] [place] [facility] [address] [id number] [place] [address] Sep, [facility] [place] [facility] [address] [id number] [place] [address] Sep, [facility] [place] [facility] [address] [id number] [place] [address] Sep, [facility] [place] [facility] [address] [id number] [place] [address] Sep, [facility] [place] [facility] [address] [id number] [place] [address] Sep, [facility] [place] [facility] [address] [id number] [place] [address] Aug, [facility] [place] [facility] [address] [id number] [place] [address] Aug, [facility] [place] [facility] [address] [id number] [place] [address] Aug, [facility] [place] [facility] [address] [id number] [place] [address] Aug, [facility] [place] [facility] [address] [id number] [place] [address] Aug, [facility] [place] [facility] [address] [id number] [place] [address] Aug, [facility] [place] [facility] [address] [id number] [place] [address] 11 Aug, 2012 [facility] [place] [facility] [address] [id number] [place] [address] 10 Aug, 2012 [facility] [place] [facility] [address] [id number] [place] [address] 10 Aug, 2012 [facility] [place] [facility] [address] [id number] [place] [address] 09 Aug, 2012 [facility] [place] [facility] [address] [id number] [place] [address] 05 Aug, 2012 [facility] [place] [facility] [address] [id number] [place] [address] 04 Aug, 2012 [facility] [place] [facility] [address] [id number] [place] [address]- [address] 17 Jul, 2012 [facility] [place] [facility] [address] [id number] [place] [address] 13 Jul, 2012 [facility] [place] [facility] [address] [id number] [place] [address] 13 Jul, 2012 [facility] [place] [facility] [address] [id number] [place] [place] [address] 11 Jul, 2012 [facility] [place] [facility] [address] [id number] [place] [address] 10 Jul, 2012 [facility] [place] [facility] [address] [id number] [place] [address] 08 Jul, 2012 [facility] [place] [facility] [address] [id number] [place] [address] 16 Jun, 2012 [facility] [place] [facility] [address] [id number] [place] [address] 14 Jun, 2012 [facility] [place] [facility] [address] [id number] [place] [address] 17 May, 2012 [facility] [place] [facility] [address] [id number] [place] [address] 17 May, 2012 [facility] [place] [facility] [address] [id number] [place] [address] 13 May, 2012 [facility] [place] [facility] [address] [id number] [place] [address] May, [facility] [address] [id number] [place] [address] Apr, [facility] [place] [facility] [address] [id number] [place] [address] Apr, [facility] [place] [facility] [address] [id number] [place] [address] Apr, [facility] [place] [facility] [address] [id number] [place] [address] Apr, [facility] [address] [id number] [place] [address] Apr, [facility] [address] [id number] [place] [address] March, [facility] [place] [facility] [address] [id number] [place] [address] March, [facility] [address] [id number] [place] [address] March, [facility] [place] [facility] [address] [id number] [place] [address] March, [facility] [place] [facility] [address] [id number] [place] [address] March, [facility] [place] [facility] [address] [id number] [place] [address] 24 Feb, 2012 [facility] [place] [facility] [address] [id number] [place] [address] Feb, [facility] [place] [facility] [address] [id number] [place] [address] Jan, [facility] [place] [facility] [address] [id number] [place] [address] Jan, [facility] [place] [facility] [address] [id number] [place] [address] Jan, [facility] [place] [facility] [address] [id number] [place] [address] Dec, [facility] [place] [facility] [address] [id number] [place] [address] Nov, [facility] [address] [id number] [place] [address] Nov, [facility] [place] [facility] [address] [id number] [place] [address] Nov, [facility] [address] [id number] [place] [address] Nov, [facility] [address] [id number] [place] [address] Oct, [facility] [place] [facility] [address] [id number] [place] [address] Oct, [facility] [place] [facility] [address] [id number] [place] [address] Sep, [facility] [place] [facility] [address] [id number] [place] [address] 18 Sep, 2011 [facility] [place] [facility] [address] [id number] [place] [address] Sep, [facility] [place] [facility] [address] [id number] [place] [address] Sep, [facility] [place] [facility] [address] [id number] [place] [address] 08 Sep, 2011 [facility] [place] [facility] [address] [id number] [place] [address] 16 Jun, 2011 [facility] [place] [facility] [address] [id number] [place] [address] Dec, [facility] [address] [place] [address] Sep, [facility] [address] [place] [address] Aug, [facility] [address] [place] [address] Aug, [facility] [id number] [place] [address] Aug, [facility] [id number] [place] [address] Aug, [facility] [address] [place] [address] Aug, [facility] [address] [place] [address] Jun, [facility] [address] [place] [address] Feb, [facility] [address] [place] [address] Sep, [facility] [address] [place] [address] Aug, [facility] [address] [place] [address] Apr, [facility] [id number] [place] [address] March, IMMUNIZATIONS No Known Immunizations SOCIAL HISTORY Never Assessed REASON FOR VISIT Hospital f/u after cholecystectomy [address] Meg lieberman ma PLAN OF CARE Activity Details Follow Up as scheduled Reason: VITAL SIGNS Height 61 in 2018-01-29 Weight 171.0 lbs 2018-01-29 Temperature 98.0 degrees Fahrenheit 2018-01-29 Heart Rate 72 bpm 2018-01-29 Respiratory Rate 18 2018-01-29 BMI 32.31 kg/m2 2018-01-29 Blood pressure systolic 128 mmHg 2018-01-29 Blood pressure diastolic 70 mmHg 2018-01-29 MEDICATIONS Medication Instructions Dosage Frequency Start Date End Date Duration Status Rosuvastatin Calcium 20 MG TAKE ONE TABLET BY MOUTH ONCE DAILY 30 Active Blood Glucose Test - and Lancets ICD10- E11.65 2 times a day- 3 times weekly as directed Jan, Active Metformin HCl 500 mg Orally Twice a day 1 tablet with meals 12h Active Blood Glucose Monitor System w/Device ICD10- E11.65 2 times a day -3 times weekly. as directed Jan, Active RESULTS Name Result Date Reference Range UA W/ MICROSCOPY 2018-01-29 COLOR YELLOW YELLOW APPEARANCE CLOUDY CLEAR SPECIFIC GRAVITY 1.015 1.001-1.035 PH 7.0 5.0-8.0 GLUCOSE NEGATIVE NEGATIVE BILIRUBIN NEGATIVE NEGATIVE KETONES NEGATIVE NEGATIVE OCCULT BLOOD NEGATIVE NEGATIVE PROTEIN NEGATIVE NEGATIVE NITRITE NEGATIVE NEGATIVE LEUKOCYTE ESTERASE NEGATIVE NEGATIVE WBC NONE SEEN < OR=5 RBC 0-2 < OR=2 SQUAMOUS EPITHELIAL CELLS 0-5 < OR=5 BACTERIA NONE SEEN NONE SEEN CALCIUM OXALATE CRYSTALS MODERATE NONE OR FEW HYALINE CAST NONE SEEN NONE SEEN PROCEDURES Procedure Date Ordered Result Body Site LAB NOT BILLED BY [facility] January 29, 2018 [facility] VISIT ESTABLISHED PATIENT January 29, 2018 INSTRUCTIONS MEDICATIONS ADMINISTERED No Known Medications MEDICAL (GENERAL) HISTORY Type Description Date Medical History Scoliosis Medical History Bipolar Surgical History right hip replacement Surgical History c-sections x4 Hospitalization History Pneumonia 2011
--- OUTSIDE RECORDS SUMMARY | 2018-06-10 19:50 | XMS REPORT ---
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 Name Role Phone ASHOKPHILLIP PRIDEHANY Unavailable PROBLEMS Type Condition ICD9-CM Code UEC73-KK Code Onset Dates Condition Status SNOMED Code Problem Lumbago with sciatica, right side M54.41 Active 906366772 Problem Tension headache G44.209 Active 956214611 Problem Other chronic pain G89.29 Active 70564188 Problem COPD with exacerbation J44.1 Active 578166553 Problem Fibromyalgia M79.7 Active 745066849 Problem Peripheral polyneuropathy G62.9 Active 21070969 Problem Chest pain, unspecified type R07.9 Active 53186984 Problem Retinitis pigmentosa H35.52 Active 22043487 Problem Cervical disc disorder at C5-C6 level with radiculopathy M50.122 Active 807814751 Problem Carpal tunnel syndrome of left wrist G56.02 Active [id number] Problem Anxiety state, unspecified F41.1 Active 002115948 Problem Low back pain M54.5 Active 656730493 Problem Major depressive disorder, recurrent episode, moderate F33.1 Active 605431961 Problem Calculus of gallbladder without cholecystitis without obstruction K80.20 Active 239316967 Problem Generalized anxiety disorder F41.1 Active 24578235 Problem Panic attacks F41.0 Active 311443798 Problem Type 2 diabetes mellitus with hyperglycemia, without long-term current use of insulin E11.65 Active 71878749 Problem Insomnia G47.00 Active 176559298 Problem 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 [id number] [address] Jun, [facility] [id number] [place] [address] 82462- 8659 May, COPD with exacerbation J44.1 [facility] [id number] [place] [address] 37790- 0304 May, Type 2 diabetes mellitus with hyperglycemia, without long- term current use of insulin E11.65 ; Peripheral polyneuropathy G62.9 ; Cough R05 and COPD with exacerbation J44.1 [facility] [id number] [place] [address] 66846- 6438 May, [facility] [id number] [place] [address] 19079- 3479 May, COPD with exacerbation J44.1 and Tobacco abuse counseling Z71.6 [facility] [id number] [place] [address] 83879- 8478 May, [facility] [place] [id number] [place] [address] 19909- 9304 May, [facility] [id number] [place] [address] 35408 -2563 May, Numbness of left hand R20.0 and Carpal tunnel syndrome of left wrist G56.02 [place] [id number] [place] [address] 36830- 2675 May, [facility] [place] [id number] [place] [address] 18096- 2368 Apr, Type 2 diabetes mellitus with hyperglycemia, without long- term current use of insulin E11.65 [facility] [id number] [place] [address] 90256- 7132 March, Anxiety state, unspecified F41.1 [place] [id number] [place] [address] 82888- 0859 Feb, [facility] [id number] [place] [address] 06344- 1598 Feb, Medicare annual wellness visit, initial Z00.00 ; Type 2 diabetes mellitus with hyperglycemia, without long-term current use of insulin E11.65 ; Major depressive disorder, recurrent episode, moderate F33.1 ; Mixed hyperlipidemia E78.2 ; Fibromyalgia M79.7 ; Retinitis pigmentosa H35.52 ; Panic attacks F41.0 ; Facial skin lesion L98.9 ; Fullness of neck R22.1 and Screening for colon cancer Z12.11 [place] [address] 97870- 2156 Feb, Type 2 diabetes mellitus with hyperglycemia, without long- term current use of insulin E11.65 [place] [address] 52955- 5859 Jan, [facility] [address] 56085- 6385 Jan, Asymptomatic microscopic hematuria R31.21 ; Chest pain, unspecified type R07.9 and Generalized anxiety disorder F41.1 [place] [address] 80281- 5408 Jan, [place] [address] 68471- 6556 Jan, [facility] [address] 75436 -4786 Dec, [place] [address] 76786- 4458 Dec, [place] [address] 25749- 2768 Dec, [facility] [address] 34548- 1339 Dec, [place] [address] 80066- 7531 14 Dec, 2017 [facility] [address] 49861- 0824 13 Dec, 2017 Tension headache G44.209 [place] [id number] [place] [address] 15503- 2762 09 Dec, 2017 Elevated LFTs R79.89 ; Type 2 diabetes mellitus with hyperglycemia, without long-term current use of insulin E11.65 ; Abdominal bloating R14.0 and Other fatigue R53.83 [place] [id number] [place] [address] 49482- 8006 Dec, Elevated ALT measurement R74.0 [place] [address] 11204- 7802 Nov, Type 2 diabetes mellitus with hyperglycemia, without long- term current use of insulin E11.65 and Mixed hyperlipidemia E78.2 [place] [address] 70443- 3179 Oct, [place] [address] 55183- 4753 Oct, Elevated ALT measurement R74.0 [place] [address] 41642- 5536 Oct, [facility] [place] [address] 42606- 7582 Oct, [facility] [id number] [place] [address] 41261- 3959 Oct, Breast cancer screening Z12.31 [place] [address] 82035- 7781 Sep, Tension headache G44.209 ; Cervical disc disorder at C5-C6 level with radiculopathy M50.122 ; Other fatigue R53.83 ; Breast pain, left N64.4 ; Vertigo R42 and Abnormal tympanic membrane of left ear H73.92 [facility] [id number] [place] [address] 23665 -0868 24 Sep, 2017 Screening breast examination Z12.39 [place] [address] 80521- 1746 Sep, [place] [id number] [place] [address] 14341- 1013 Sep, Mixed hyperlipidemia E78.2 and Type 2 diabetes mellitus with hyperglycemia, without long-term current use of insulin E11.65 [facility] [id number] [place] [address] 94231- 4516 Jul, [facility] [place] [id number] [place] [address] 19776- 7158 Jul, Lumbago with sciatica, right side M54.41 and Other chronic pain G89.29 [place] [address] 92128- 4807 May, Type 2 diabetes mellitus with hyperglycemia, without long- term current use of insulin E11.65 ; Low back pain M54.5 ; Tobacco use Z72.0 ; Mixed hyperlipidemia E78.2 ; Lateral epicondylitis of right elbow M77.11 and 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 [place] [id number] [place] [address] 69339- 8929 Apr, [facility] [place] [id number] [place] [address] 16333- 3033 Apr, Low back pain M54.5 [place] [id number] [place] [address] 24603- 4892 Apr, Pain in thoracic spine M54.6 [facility] [id number] [place] [address] 35828 -1512 March, Lumbosacral neuritis M54.17 [facility] [id number] [place] [address] 25407- 8591 March, Low back pain M54.5 [facility] [id number] [place] [address] 89289- 7100 March, [facility] [id number] [place] [address] 01414- 5741 March, [facility] [address] [address]- 6704 March, [place] [id number] [place] [address] 42735- 6177 Feb, [facility] [id number] [place] [address] 03960- 8154 Feb, [place] [id number] [place] [address] 55354- 8379 Feb, [place] [id number] [place] [address] 72002- 7627 Feb, Low back pain M54.5 and Pain in thoracic spine M54.6 [place] [id number] [place] [address] 21099- 6436 Jan, Panic attacks F41.0 ; Type 2 diabetes mellitus with hyperglycemia, without long-term current use of insulin E11.65 and Other chest pain R07.89 [place] [id number] [place] [address] 16438- 5234 Jan, [place] [id number] [place] [address] 58899- 7021 Jan, Type 2 diabetes mellitus with hyperglycemia, without long- term current use of insulin E11.65 [place] [address] [place] [address] 13894- 2246 Jan, Pain in thoracic spine M54.6 [place] [address] [place] [address] 05667- 1277 Jan, Type 2 diabetes mellitus with hyperglycemia, without long- term current use of insulin E11.65 and Elevated liver enzymes R74.8 [place] [id number] [place] [address] 99316- 8384 Jan, [place] [id number] [place] [address] 82211- 9835 Dec, Tobacco use Z72.0 ; Prediabetes R73.09 ; Elevated liver enzymes R74.8 ; Elevated fasting glucose R73.01 ; Elevated ALT measurement R74.0 ; Pain in thoracic spine M54.6 ; Panic attacks F41.0 and Type 2 diabetes mellitus with hyperglycemia, without long-term current use of insulin E11.65 [facility] [address] [place] [address] 34721 -2406 Jun, Abdominal pain, right upper quadrant R10.11 [facility] [id number] [place] [address] 46348- 1488 Jun, [facility] [id number] [place] [address] 63932- 0001 Jun, [place] [id number] [place] [address] 51271- 2515 Jun, [facility] [id number] [place] [address] 72347- 1600 May, Routine gynecological examination Z01.419 ; Encounter for Papanicolaou smear for cervical cancer screening Z12.4 ; Screening breast examination Z12.39 ; Vaginal discharge N89.8 and Candidal vaginitis B37.3 [place] [id number] [place] [address] 54111- 5561 May, [place] [id number] [place] [address] 37747- 9674 May, Prediabetes R73.09 ; Elevated ALT measurement R74.0 ; Elevated fasting glucose R73.01 and Palpitations R00.2 [facility] [id number] [place] [address] 66015- 3390 Feb, [place] [id number] [place] [address] 89858- 1405 Feb, [place] [id number] [place] [address] 97564- 7629 Feb, Generalized anxiety disorder F41.1 and Major depressive disorder, recurrent episode, moderate F33.1 [facility] [id number] [place] [address] 54893- 3848 Feb, Generalized anxiety disorder F41.1 ; Low back pain M54.5 and Insomnia G47.00 [facility] [id number] [place] [address] 20088- 2272 Jan, Elevated fasting glucose R73.01 and Elevated ALT measurement R74.0 [facility] [id number] [place] [address] 66363- 3040 Jan, Generalized anxiety disorder F41.1 ; Low back pain M54.5 and Screening cholesterol level Z13.220 [facility] [id number] [place] [address] 86563- 3191 Dec, Scoliosis M41.9 and Anxiety F41.9 [facility] [id number] [place] [address] 85699- 6484 Feb, [facility] [id number] [place] [address] 60536- 1746 Feb, [facility] [id number] [place] [address] 01004- 9764 Apr, [facility] [id number] [place] [address] 78399- 3754 March, [facility] [id number] [place] [address] 92938- 1707 March, [facility] [id number] [place] [address] 56925- 3521 March, [facility] [id number] [place] [address] 83522- 5876 March, [facility] [id number] [place] [address] 21228- 2881 March, [facility] [id number] [place] [address] 83023- 9429 March, [facility] [address] [place] [address] 97900- 9107 March, [facility] [address] [id number] [place] [address]- 8598 March, [facility] [place] [facility] [address] [id number] [place] [address]- 1793 Feb, [facility] [place] [facility] [address] [id number] [place] [address]- 5282 Feb, [facility] [place] [facility] [address] [id number] [place] [address]- 5780 Feb, [facility] [place] [facility] [address] [id number] [place] [address]- 4624 Feb, [facility] [place] [facility] [address] [id number] [place] [address]- 7169 Jan, [facility] [place] [facility] [address] [id number] [place] [address]- 4140 Jan, [facility] [place] [facility] [address] [id number] [place] [address]- 1028 Jan, [facility] [place] [facility] [address] [id number] [place] [address]- 1280 Jan, [facility] [place] [facility] [address] [id number] [place] [address]- 9769 Jan, [facility] [place] [facility] [address] [id number] [place] [address]- 0173 Jan, [facility] [place] [facility] [address] [id number] [place] [address]- 1442 Jan, [facility] [place] [facility] [address] [id number] [place] [address]- 0142 Dec, [facility] [place] [facility] [address] [id number] [place] [address]- 4829 Dec, [facility] [place] [facility] [address] [id number] [place] [address]- 7536 Dec, [facility] [place] [facility] [address] [id number], [place] [address]- 0941 Dec, [facility] [address] [id number] [place] [address]- 8360 Dec, [facility] [place] [facility] [address] [id number] [place] [address]- 7704 Dec, [facility] [place] [facility] [address] [id number] [place] [address]- 5363 Nov, [facility] [place] [facility] [address] [id number] [place] [address]- 2081 Nov, [facility] [place] [facility] [address] [id number] [place] [address]- 6281 Nov, [facility] [place] [facility] [address] [id number] [place] [address]- 7285 Nov, [facility] [address] [id number] [place] [address]- 3894 Nov, [facility] [place] [facility] [address] [id number] [place] [address]- 1865 Nov, [facility] [address] [id number] [place] [address]- 9292 Nov, [facility] [address] [facility] [id number] [place] [address]- 2425 Oct, [facility] [place] [facility] [address] [id number] [place] [address]- 2736 Oct, [facility] [place] [facility] [address] [id number] [place] [address]- 7919 Oct, [facility] [place] [facility] [address] [id number] [place] [address]- 9761 Oct, [facility] [place] [facility] [address] [id number] [place] [address]- 7915 Sep, [facility] [place] [facility] [address] [id number] [place] [address]- 6585 Sep, [facility] [place] [facility] [address] [id number] [place] [address]- 1049 Sep, [facility] [place] [facility] [address] [id number] [place] [address]- 9241 Sep, [facility] [place] [facility] [address] [id number] [place] [address]- 2546 Sep, [facility] [place] [facility] [address] [id number] [place] [address]- 5303 Sep, [facility] [place] [facility] [address] [id number] [place] [address]- 3503 Aug, [facility] [place] [facility] [address] [id number] [place] [address]- 3095 Aug, [facility] [place] [facility] [address] [id number] [place] [address]- 8374 Aug, [facility] [place] [facility] [address] [id number] [place] [address]- 6271 Aug, [facility] [place] [facility] [address] [id number] [place] [address]- 1462 Aug, [facility] [place] [facility] [address] [id number] [place] [address]- 8013 Aug, [facility] [place] [facility] [address] [id number] [place] [address]- 5172 Aug, [facility] [place] [facility] [address] [id number] [place] [address]- 3147 Jul, [facility] [place] [facility] [address] [id number] [place] [address]- 2960 Jul, [facility] [place] [facility] [address] [id number] [place] [address]- 2023 Jun, [facility] [place] [facility] [address] [id number] [place] [address]- 2541 May, [facility] [place] [facility] [address] [id number] [place] [address]- 2046 11 May, 2013 [facility] [address] [id number] [place] [address]- 4861 10 May, 2013 [facility] [address] [id number] [place] [address]- 8048 Apr, [facility] [address] [id number] [place] [address]- 9493 Apr, [facility] [place] [facility] [address] [id number] [place] [address]- 0447 Apr, [facility] [address] [id number] [place] [address]- 5362 March, [facility] [address] [id number] [place] [address]- 8161 March, [facility] [address] [id number] [place] [address]- 1335 March, [facility] [address] [id number] [place] [address]- 5003 Feb, [facility] [address] [id number] [place] [address]- 7407 Feb, [facility] [place] [facility] [address] [id number] [place] [address]- 1136 Feb, [facility] [address] [id number] [place] [address]- 4170 28 Jan, 2013 [facility] [place] [facility] [address] [id number] [place] [address]- 5669 19 Jan, 2013 [facility] [place] [facility] [address] [id number] [place] [address]- 2450 18 Jan, 2013 [facility] [place] [facility] [address] [id number] [place] [address]- 1930 15 Jan, 2013 [facility] [place] [facility] [address] [id number] [place] [address]- 8405 14 Jan, 2013 [facility] [place] [facility] [address] [id number] [place] [address] 2546 12 Jan, 2013 [facility] [address] [id number] [place] [address]- 5040 05 Jan, 2013 [facility] [place] [facility] [address] [id number] [place] [address] 2546 28 Dec, 2012 [facility] [address] [id number] [place] [address]- 5826 18 Dec, 2012 [facility] [place] [facility] [address] [id number] [place] [address]- 3296 15 Dec, 2012 [facility] [address] [id number] [place] [address]- 3006 14 Dec, 2012 [facility] [address] [id number] [place] [address] 2546 05 Dec, 2012 [facility] [address] [id number] [place] [address]- 7670 29 Nov, 2012 [facility] [address] [id number] [place] [address]- 6471 Nov, [facility] [address] [id number] [place] [address]- 1856 Nov, [facility] [address] [id number] [place] [address]- 7726 Nov, [facility] [address] [id number] [place] [address]- 6816 Oct, [facility] [address] [id number] [place] [address] 2545 31 Oct, 2012 [facility] [place] [facility] [address] [id number] [place] [address] 2546 Oct, [facility] [place] [facility] [address] [id number] [place] [address]- 2546 18 Oct, 2012 [facility] [place] [facility] [address] [id number] [place] [address]- 1085 Oct, [facility] [place] [facility] [address] [id number] [place] [address]- 2734 Oct, [facility] [place] [facility] [address] [id number] [place] [address]- 6682 Oct, [facility] [place] [facility] [address] [facility] [id number] [place] [address]- 3038 Oct, [facility] [place] [facility] [address] [id number] [place] [address]- 8279 Oct, [facility] [place] [facility] [address] [id number] [place] [address]- 2763 Sep, [facility] [place] [facility] [address] [id number] [place] 7171 Sep, [facility] [place] [facility] [address] [id number] [place] [address]- 4735 Sep, [facility] [place] [facility] [address] [id number], [place] [address] Sep, [facility] [place] [facility] [address] [id number] [place] [address] Sep, [facility] [place] [facility] [address] [facility] [id number], [place] [address] Aug, [facility] [place] [facility] [address] [id number], [place] [address] Aug, [facility] [place] [facility] [address] [id number], [place] [address] Aug, [facility] [place] [facility] [address] [id number], [place] [address] Aug, [facility] [place] [facility] [address] [facility] [id number], [place] [address] 16 Aug, 2012 [facility] [place] [facility] [address] [facility] [id number], [place] [address] Aug, [facility] [place] [facility] [address] [id number] [place] [address] 11 Aug, 2012 [facility] [place] [facility] [address] [id number] [place] [address] 10 Aug, 2012 [facility] [place] [facility] [address] [id number] [place] [address] 10 Aug, 2012 [facility] [place] [facility] [address] [id number] [place] [address] 09 Aug, 2012 [facility] [place] [facility] [address] [id number] [place] [address] 05 Aug, 2012 [facility] [place] [facility] [address] [id number] [place] [address] 04 Aug, 2012 [facility] [place] [facility] [address] [id number] [place] [address] 17 Jul, 2012 [facility] [place] [facility] [address] [id number] [place] [address] 13 Jul, 2012 [facility] [place] [facility] [address] [id number] [place] [address] 13 Jul, 2012 [facility] [place] [facility] [address] [id number] [place] [address] 11 Jul, 2012 [facility] [place] [facility] [address] [id number] [place] [address] 10 Jul, 2012 [facility] [place] [facility] [address] [id number] [place] [address]- [address] 08 Jul, 2012 [facility] [place] [facility] [address] [id number] [place] [address]- [address] 16 Jun, 2012 [facility] [place] [facility] [address] [id number] [place] [address] 14 Jun, 2012 [facility] [place] [facility] [address] [id number] [place] [address] 17 May, 2012 [facility] [place] [facility] [address] [id number] [place] [address] 17 May, 2012 [facility] [place] [facility] [address] [id number] [place] [address] May, [facility] [address] [id number] [place] [address] May, [facility] [place] [facility] [address] [id number] [place] [address] Apr, [facility] [place] [facility] [address] [id number] [place] [address] Apr, [facility] [address] [id number] [place] [address] Apr, [facility] [address] [id number] [place] [address] Apr, [facility] [address] [id number] [place] [address] Apr, [facility] [address] [id number] [place] [address] March, [facility] [address] [id number] [place] [address] March, [facility] [address] [id number] [place] [address] March, [facility] [place] [facility] [address] [id number] [place] [address] March, [facility] [place] [facility] [address] [id number] [place] [address] March, [facility] [place] [facility] [address] [id number] [place] [address] Feb, [facility] [place] [facility] [address] [id number] [place] [address] Feb, [facility] [place] [facility] [address] [id number] [place] [address] Jan, [facility] [place] [facility] [address] [id number] [place] [address] Jan, [facility] [place] [facility] [address] [id number] [place] [address] Jan, [facility] [place] [facility] [address] [id number] [place] [address] 28 Dec, 2011 [facility] [place] [facility] [address] [id number] [place] [address] Nov, [facility] [place] [facility] [address] [id number] [place] [address] Nov, [facility] [place] [facility] [address] [id number] [place] [address] Nov, [facility] [place] [facility] [address] [id number] [place] [address] Nov, [facility] [place] [facility] [address] [id number] [place] [address] Oct, [facility] [place] [facility] [address] [id number] [place] [address] Oct, [facility] [place] [facility] [address] [id number] [place] [address] Sep, [facility] [place] [facility] [address] [id number] [place] [address] Sep, [facility] [place] [facility] [address] [id number] [place] [address] Sep, [facility] [place] [facility] [address] [id number] [place] [address] 10 Sep, 2011 [facility] [place] [facility] [address] [id number] [place] [address] 08 Sep, 2011 [facility] [place] [facility] [address] [id number] [place] [address] 16 Jun, 2011 [facility] [place] [facility] [address] [id number] [place] [address] 15 Dec, 2010 [facility] [place] [facility] [id number] [place] [address] Sep, [facility] [address] [facility] [id number], [place] [address] Aug, [facility] [address] [facility] [id number], [place] [address] Aug, [facility] [address] [facility] [id number], [place] [address] Aug, [facility] [address] [facility] [id number], [place] [address] Aug, [facility] [id number], [place] [address] Aug, [facility] [id number], [place] [address] Jun, [facility] [id number] [place] [address] Feb, [facility] [id number], [place] [address] Sep, [facility] [id number], [place] [address] Aug, [facility] [id number] [place] [address] Apr, [facility] [id number], [place] [address] March, IMMUNIZATIONS No Known Immunizations SOCIAL HISTORY Never Assessed REASON FOR VISIT Refill Request PLAN OF CARE VITAL SIGNS MEDICATIONS Medication Instructions Dosage Frequency Start Date End Date Duration Status Metformin HCl 500 mg Orally Twice a day 1 tablet with meals 12h 30 days Active RESULTS No Results PROCEDURES No Known procedures INSTRUCTIONS MEDICATIONS ADMINISTERED No Known Medications MEDICAL (GENERAL) HISTORY Type Description Date Medical History Scoliosis Medical History Bipolar Surgical History right hip replacement Surgical History c-sections x4 Hospitalization History Pneumonia 2011
--- OUTSIDE RECORDS SUMMARY | 2018-06-10 19:51 | XMS REPORT ---
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 Name Role Phone ASHOKPHILLIP PRIDEHANY Unavailable PROBLEMS Type Condition ICD9-CM Code QNC63-GC Code Onset Dates Condition Status SNOMED Code Problem Lumbago with sciatica, right side M54.41 Active 049291586 Problem Tension headache G44.209 Active 322892093 Problem Other chronic pain G89.29 Active 22746132 Problem COPD with exacerbation J44.1 Active 494132062 Problem Fibromyalgia M79.7 Active 236814926 Problem Peripheral polyneuropathy G62.9 Active 98835233 Problem Chest pain, unspecified type R07.9 Active 24837146 Problem Retinitis pigmentosa H35.52 Active 45451479 Problem Cervical disc disorder at C5-C6 level with radiculopathy M50.122 Active 949108196 Problem Carpal tunnel syndrome of left wrist G56.02 Active 365291187218410 Problem Anxiety state, unspecified F41.1 Active 102567752 Problem Low back pain M54.5 Active 427758866 Problem Major depressive disorder, recurrent episode, moderate F33.1 Active 183035028 Problem Calculus of gallbladder without cholecystitis without obstruction K80.20 Active 788489349 Problem Generalized anxiety disorder F41.1 Active 28093397 Problem Panic attacks F41.0 Active 391496964 Problem Type 2 diabetes mellitus with hyperglycemia, without long-term current use of insulin E11.65 Active 56596946 Problem Insomnia G47.00 Active 105614543 Problem 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 Active 19224211 Problem Tobacco use Z72.0 Active 492562673 Problem Mixed hyperlipidemia E78.2 Active [id number] ALLERGIES No Information ENCOUNTERS Encounter Location Date Diagnosis [facility] [address] [facility] [id number] [address] Jun, [facility] [id number] [address] May, [facility] [id number] [place] [address] 27119- 4373 May, Type 2 diabetes mellitus with hyperglycemia, without long- term current use of insulin E11.65 ; Peripheral polyneuropathy G62.9 ; Cough R05 and COPD with exacerbation J44.1 [facility] [place] [id number] [place] [address] 62061- 0611 May, [facility] [place] [id number] [place] [address] 89831- 4004 May, COPD with exacerbation J44.1 and Tobacco abuse counseling Z71.6 [facility] [id number] [place] [address] 27520- 4890 May, [place] [id number] [place] [address] 21195- 2944 May, [facility] [id number] [place] [address] 34514 -0753 May, Numbness of left hand R20.0 and Carpal tunnel syndrome of left wrist G56.02 [place] [id number] [place] [address] 36475- 0080 May, [place] [id number] [place] [address] 37427- 4848 Apr, Type 2 diabetes mellitus with hyperglycemia, without long- term current use of insulin E11.65 [place] [id number] [place] [address] 22577- 6153 March, Anxiety state, unspecified F41.1 [place] [id number] [place] [address] 36120- 3556 Feb, [facility] [place] [id number] [place] [address] 96768- 7938 Feb, Medicare annual wellness visit, initial Z00.00 ; Type 2 diabetes mellitus with hyperglycemia, without long-term current use of insulin E11.65 ; Major depressive disorder, recurrent episode, moderate F33.1 ; Mixed hyperlipidemia E78.2 ; Fibromyalgia M79.7 ; Retinitis pigmentosa H35.52 ; Panic attacks F41.0 ; Facial skin lesion L98.9 ; Fullness of neck R22.1 and Screening for colon cancer Z12.11 [place] [address] 26977- 8491 Feb, Type 2 diabetes mellitus with hyperglycemia, without long- term current use of insulin E11.65 [place] [address] 23034- 3314 Jan, [place] [address] 65749- 4057 Jan, Asymptomatic microscopic hematuria R31.21 ; Chest pain, unspecified type R07.9 and Generalized anxiety disorder F41.1 [place] [address] 69228- 7529 Jan, [place] [address] 82851- 5845 Jan, [facility] [address] 28902 -9089 Dec, [place] [address] 80754- 1472 Dec, [place] [address] 90568- 4497 Dec, [place] [address] 74794- 9948 Dec, [facility] [place] [address] 10461- 6577 14 Dec, 2017 [place] [address] 10875- 8359 13 Dec, 2017 Tension headache G44.209 [place] [address] 54581- 5863 09 Dec, 2017 Elevated LFTs R79.89 ; Type 2 diabetes mellitus with hyperglycemia, without long-term current use of insulin E11.65 ; Abdominal bloating R14.0 and Other fatigue R53.83 [place] [address] 73464- 7693 08 Dec, 2017 Elevated ALT measurement R74.0 [place] [address] 51873- 1923 Nov, Type 2 diabetes mellitus with hyperglycemia, without long- term current use of insulin E11.65 and Mixed hyperlipidemia E78.2 [place] [address] [place] 709066- 9374 Oct, [facility] [place] [address] 33193- 7558 Oct, Elevated ALT measurement R74.0 [place] [address] 03222- 1846 Oct, [place] [address] 10506- 2682 Oct, [place] [address] 19119- 6632 Oct, Breast cancer screening Z12.31 [place] [address] 38890- 8303 Sep, Tension headache G44.209 ; Cervical disc disorder at C5-C6 level with radiculopathy M50.122 ; Other fatigue R53.83 ; Breast pain, left N64.4 ; Vertigo R42 and Abnormal tympanic membrane of left ear H73.92 [facility] [address] 40280 -3467 Sep, Screening breast examination Z12.39 [place] [address] 81140- 8335 Sep, [place] [id number] [place] [address] 71887- 4694 Sep, Mixed hyperlipidemia E78.2 and Type 2 diabetes mellitus with hyperglycemia, without long-term current use of insulin E11.65 [facility] [id number] [place] [address] 13099- 0772 07 Jul, 2017 [facility] [id number] [place] [address] 29361- 2580 Jul, Lumbago with sciatica, right side M54.41 and Other chronic pain G89.29 [place] [id number] [place] [address] 58739- 2914 May, Type 2 diabetes mellitus with hyperglycemia, without long- term current use of insulin E11.65 ; Low back pain M54.5 ; Tobacco use Z72.0 ; Mixed hyperlipidemia E78.2 ; Lateral epicondylitis of right elbow M77.11 and 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 [place] [id number] [place] [address] 67642- 0756 Apr, [place] [id number] [place] [address] 05664- 1141 Apr, Low back pain M54.5 [facility] [place] [id number] [place] [address] 02405- 6388 Apr, Pain in thoracic spine M54.6 [facility] [id number] [place] [address] 27653 -5369 March, Lumbosacral neuritis M54.17 [facility] [id number] [place] [address] 63216- 7937 March, Low back pain M54.5 [facility] [id number] [place] [address] 14656- 4747 March, [facility] [id number] [place] [address] 93997- 0359 March, [facility] [address] [place] [address]- 8461 March, [place] [id number] [place] [address] 89165- 2646 Feb, [facility] [id number] [place] [address] 45459- 1683 Feb, [place] [id number] [place] [address] 70780- 3838 Feb, [place] [id number] [place] [address] 89345- 8441 Feb, Low back pain M54.5 and Pain in thoracic spine M54.6 [place] [id number] [place] [address] 41672- 7729 Jan, Panic attacks F41.0 ; Type 2 diabetes mellitus with hyperglycemia, without long-term current use of insulin E11.65 and Other chest pain R07.89 [place] [id number] [place] [address] 72455- 1339 Jan, [place] [id number] [place] [address] 94891- 9286 Jan, Type 2 diabetes mellitus with hyperglycemia, without long- term current use of insulin E11.65 [place] [address] [place] [address] 59307- 7405 Jan, Pain in thoracic spine M54.6 [place] [address] [place] [address] 42293- 8490 Jan, Type 2 diabetes mellitus with hyperglycemia, without long- term current use of insulin E11.65 and Elevated liver enzymes R74.8 [place] [id number] [place] [address] 92560- 9619 Jan, [place] [address] [place] [address] 34734- 8656 Dec, Tobacco use Z72.0 ; Prediabetes R73.09 ; Elevated liver enzymes R74.8 ; Elevated fasting glucose R73.01 ; Elevated ALT measurement R74.0 ; Pain in thoracic spine M54.6 ; Panic attacks F41.0 and Type 2 diabetes mellitus with hyperglycemia, without long-term current use of insulin E11.65 [facility] [address] [place] [address] 84067 -5248 Jun, Abdominal pain, right upper quadrant R10.11 [facility] [id number] [place] [address] 17339- 9036 Jun, [facility] [id number] [place] [address] 24820- 1281 Jun, [place] [id number] [place] [address] 46954- 8048 Jun, [facility] [id number] [place] [address] 44016- 6776 May, Routine gynecological examination Z01.419 ; Encounter for Papanicolaou smear for cervical cancer screening Z12.4 ; Screening breast examination Z12.39 ; Vaginal discharge N89.8 and Candidal vaginitis B37.3 [place] [id number] [place] [address] 68423- 5171 May, [place] [id number] [place] [address] 53375- 8671 May, Prediabetes R73.09 ; Elevated ALT measurement R74.0 ; Elevated fasting glucose R73.01 and Palpitations R00.2 [facility] [id number] [place] [address] 36627- 5049 Feb, [place] [id number] [place] [address] 41315- 2013 Feb, [place] [address] 38069- 7839 Feb, Generalized anxiety disorder F41.1 and Major depressive disorder, recurrent episode, moderate F33.1 [place] [id number] [place] [address] 05336- 0472 Feb, Generalized anxiety disorder F41.1 ; Low back pain M54.5 and Insomnia G47.00 [facility] [id number] [place] [address] 24306- 8383 Jan, Elevated fasting glucose R73.01 and Elevated ALT measurement R74.0 [facility] [id number] [place] [address] 59665- 7817 Jan, Generalized anxiety disorder F41.1 ; Low back pain M54.5 and Screening cholesterol level Z13.220 [facility] [id number] [place] [address] 97371- 8369 Dec, Scoliosis M41.9 and Anxiety F41.9 [facility] [id number] [place] [address] 00518- 4034 Feb, [facility] [id number] [place] [address] 80756- 0670 Feb, [facility] [id number] [place] [address] 65125- 4734 Apr, [facility] [id number] [place] [address] 56275- 4442 March, [facility] [id number] [place] [address] 23399- 9273 March, [facility] [id number] [place] [address] 50898- 2033 March, [facility] [id number] [place] [address] 29584- 7182 March, [facility] [id number] [place] [address] 19097- 6085 March, [facility] [id number] [place] [address] 03283- 5262 March, [facility] [id number] [place] [address] 12494- 9950 March, [facility] [address] [facility] [id number] [place] [address]- 5604 March, [facility] [place] [facility] [address] [id number] [place] [address]- 9933 Feb, [facility] [place] [facility] [address] [id number] [place] [address]- 0291 Feb, [facility] [place] [facility] [address] [id number] [place] [address]- 4527 Feb, [facility] [place] [facility] [address] [id number] [place] [address]- 9713 Feb, [facility] [place] [facility] [address] [id number] [place] [address]- 2642 Jan, [facility] [place] [facility] [address] [id number] [place] [address]- 0747 Jan, [facility] [place] [facility] [address] [id number] [place] [address]- 3932 Jan, [facility] [place] [facility] [address] [id number] [place] [address]- 3134 Jan, [facility] [place] [facility] [address] [id number] [place] [address]- 1980 Jan, [facility] [place] [facility] [address] [id number] [place] [address]- 6373 Jan, [facility] [place] [facility] [address] [id number] [place] [address]- 3925 Jan, [facility] [place] [facility] [address] [id number] [place] [address]- 8183 Dec, [facility] [place] [facility] [address] [id number] [place] [address]- 0052 Dec, [facility] [place] [facility] [address] [id number] [place] [address]- 4906 Dec, [facility] [place] [facility] [address] [id number] [place] [address]- 4075 Dec, [facility] [place] [facility] [address] [id number] [place] [address]- 1567 Dec, [facility] [place] [facility] [address] [id number] [place] [address]- 7430 Dec, [facility] [place] [facility] [address] [id number] [place] [address]- 4030 Nov, [facility] [place] [facility] [address] [id number] [place] [address]- 8139 Nov, [facility] [place] [facility] [address] [id number] [place] [address]- 9168 Nov, [facility] [place] [facility] [address] [id number] [place] [address]- 4324 Nov, [facility] [place] [facility] [address] [id number] [place] [address]- 3239 Nov, [facility] [place] [facility] [address] [id number] [place] [address]- 0355 Nov, [facility] [place] [facility] [address] [id number] [place] [address]- 4392 Nov, [facility] [place] [facility] [address] [id number] [place] [address]- 0145 Oct, [facility] [place] [facility] [address] [id number] [place] [address]- 5463 Oct, [facility] [place] [facility] [address] [id number] [place] [address]- 1739 Oct, [facility] [place] [facility] [address] [id number] [place] [address]- 8540 Oct, [facility] [place] [facility] [address] [id number] [place] [address]- 7261 Sep, [facility] [place] [facility] [address] [id number] [place] [address]- 9693 Sep, [facility] [place] [facility] [address] [id number] [place] [address]- 2546 Sep, [facility] [place] [facility] [address] [id number] [place] [address]- 1504 Sep, [facility] [place] [facility] [address] [id number] [place] [address]- 2546 Sep, [facility] [place] [facility] [address] [id number] [place] [address] 2546 Sep, [facility] [place] [facility] [address] [id number] [place] [address]- 1564 Aug, [facility] [place] [facility] [address] [id number] [place] [address]- 5652 Aug, [facility] [place] [facility] [address] [id number] [place] [address]- 6460 Aug, [facility] [place] [facility] [address] [id number] [place] [address]- 7843 Aug, [facility] [place] [facility] [address] [id number] [place] [address]- 3227 Aug, [facility] [place] [facility] [address] [id number] [place] [address]- 4051 Aug, [facility] [place] [facility] [address] [id number] [place] [address]- 5844 Aug, [facility] [place] [facility] [address] [id number] [place] [address]- 2542 Jul, [facility] [place] [facility] [address] [id number] [place] [address]- 2544 Jul, [facility] [place] [facility] [address] [id number] [place] [address]- 2546 Jun, [facility] [place] [facility] [address] [id number] [place] [address]- 2546 May, [facility] [place] [facility] [address] [id number] [place] [address]- 4694 May, [facility] [address] [id number] [place] [address]- 7181 10 May, 2013 [facility] [place] [facility] [address] [id number] [place] [address]- 9116 Apr, [facility] [address] [id number] [place] [address]- 5772 Apr, [facility] [place] [facility] [address] [id number] [place] [address]- 4826 Apr, [facility] [address] [id number] [place] [address]- 5296 March, [facility] [place] [facility] [address] [id number] [place] [address]- 6072 March, [facility] [address] [id number] [place] [address]- 9002 March, [facility] [address] [id number] [place] [address]- 0391 Feb, [facility] [place] [facility] [address] [id number] [place] [address]- 7497 Feb, [facility] [place] [facility] [address] [id number] [place] [address]- 2593 Feb, [facility] [place] [facility] [address] [id number] [place] [address]- 7101 28 Jan, 2013 [facility] [place] [facility] [address] [id number] [place] [address]- 5691 19 Jan, 2013 [facility] [place] [facility] [address] [id number] [place] [address]- 6429 18 Jan, 2013 [facility] [place] [facility] [address] [id number] [place] [address]- 8005 15 Jan, 2013 [facility] [place] [facility] [address] [id number] [place] 5500 14 Jan, 2013 [facility] [place] [facility] [address] [id number] [place] [address]- 2443 12 Jan, 2013 [facility] [address] [id number] [place] [address]- 4467 Jan, [facility] [place] [facility] [address] [id number] [place] [address]- 8966 28 Dec, 2012 [facility] [address] [id number] [place] [address]- 7266 18 Dec, 2012 [facility] [place] [facility] [address] [id number] [place] [address]- 2865 15 Dec, 2012 [facility] [address] [id number] [place] [address]- 9256 14 Dec, 2012 [facility] [address] [id number] [place] [address]- 1906 05 Dec, 2012 [facility] [address] [id number] [place] [address]- 7073 29 Nov, 2012 [facility] [address] [id number] [place] [address]- 4738 17 Nov, 2012 [facility] [address] [id number] [place] [address]- 6825 Nov, [facility] [address] [facility] [id number] [place] [address]- 9582 02 Nov, 2012 [facility] [address] [id number] [place] [address]- 6104 Oct, [facility] [address] [id number] [place] [address]- 3294 Oct, [facility] [place] [facility] [address] [id number] [place] [address]- 6632 Oct, [facility] [place] [facility] [address] [id number] [place] [address]- 0168 Oct, [facility] [address] [id number] [place] [address]- 4416 Oct, [facility] [place] [facility] [address] [id number] [place] [address]- 7816 Oct, [facility] [place] [facility] [address] [id number] [place] [address] Oct, [facility] [place] [facility] [address] [id number] [place] [address] Oct, [facility] [place] [facility] [address] [id number] [place] [address] Oct, [facility] [place] [facility] [address] [id number] [place] [address] Sep, [facility] [place] [facility] [address] [id number] [place] [address] Sep, [facility] [place] [facility] [address] [id number] [place] [address] Sep, [facility] [place] [facility] [address] [id number] [place] [address] Sep, [facility] [place] [facility] [address] [id number] [place] [address] Sep, [facility] [place] [facility] [address] [id number] [place] [address] Aug, [facility] [place] [facility] [address] [id number] [place] [address] Aug, [facility] [place] [facility] [address] [id number] [place] [address] Aug, [facility] [place] [facility] [address] [id number] [place] [address] Aug, [facility] [place] [facility] [address] [id number] [place] [address] Aug, [facility] [place] [facility] [address] [id number] [place] [address] Aug, [facility] [place] [facility] [address] [id number] [place] [address] 11 Aug, 2012 [facility] [place] [facility] [address] [id number] [place] [address] 10 Aug, 2012 [facility] [place] [facility] [address] [id number] [place] [address] 10 Aug, 2012 [facility] [place] [facility] [address] [id number] [place] [address] 09 Aug, 2012 [facility] [place] [facility] [address] [id number] [place] [address]- [address] 05 Aug, 2012 [facility] [place] [facility] [address] [id number] [place] [address]- [address] 04 Aug, 2012 [facility] [place] [facility] [address] [id number] [place] [address] 17 Jul, 2012 [facility] [place] [facility] [address] [id number] [place] [address]- [address] 13 Jul, 2012 [facility] [place] [facility] [address] [id number] [place] [address]- [address] 13 Jul, 2012 [facility] [place] [facility] [address] [id number] [place] [address]- [address] 11 Jul, 2012 [facility] [place] [facility] [address] [id number] [place] [address]- [address] 10 Jul, 2012 [facility] [place] [facility] [address] [id number] [place] [address]- [address] 08 Jul, 2012 [facility] [place] [facility] [address] [id number] [place] [address] 16 Jun, 2012 [facility] [place] [facility] [address] [id number] [place] [address] 14 Jun, 2012 [facility] [place] [facility] [address] [id number] [place] [address] 17 May, 2012 [facility] [place] [facility] [address] [id number] [place] 17 May, 2012 [facility] [place] [facility] [address] [id number] [place] [address] 13 May, 2012 [facility] [address] [id number] [place] [address] 12 May, 2012 [facility] [place] [facility] [address] [id number] [place] [address] 19 Apr, 2012 [facility] [address] [id number] [place] [address] Apr, [facility] [address] [id number] [place] [address] Apr, [facility] [address] [id number] [place] [address] Apr, [facility] [address] [id number] [place] [address] Apr, [facility] [address] [id number] [place] [address] March, [facility] [address] [id number] [place], [place] [address] March, [facility] [address] [id number] [place] [address] March, [facility] [address] [id number] [place] [address] March, [facility] [address] [id number] [place] [address] March, [facility] [address] [id number] [place] [address] 24 Feb, 2012 [facility] [place] [facility] [address] [id number] [place] [address] Feb, [facility] [address] [id number] [place] [address] Jan, [facility] [place] [facility] [address] [id number] [place] [address] Jan, [facility] [address] [id number] [place] [address] Jan, [facility] [place] [facility] [address] [id number] [place] [address] 28 Dec, 2011 [facility] [place] [facility] [address] [id number] [place] [address] Nov, [facility] [place] [facility] [address] [id number] [place] [address] Nov, [facility] [place] [facility] [address] [id number] [place] [address] Nov, [facility] [place] [facility] [address] [id number] [place] [address] Nov, [facility] [place] [facility] [address] [id number] [place] [address] Oct, [facility] [place] [facility] [address] [id number] [place] [address] Oct, [facility] [place] [facility] [address] [id number] [place] [address] Sep, [facility] [place] [facility] [address] [id number] [place] [address] Sep, [facility] [place] [facility] [address] [id number] [place] [address] Sep, [facility] [place] [facility] [address] [id number] [place] [address] 10 Sep, 2011 [facility] [place] [facility] [address] [id number] [place] [address] 08 Sep, 2011 [facility] [place] [facility] [address] [id number] [place] [address] 16 Jun, 2011 [facility] [place] [facility] [address] [id number] [place] [address] 15 Dec, 2010 [facility] [place] [facility] [id number] [address] Sep, [facility] [address] [facility] [id number] [place] [address] Aug, [facility] [address] [facility] [id number] [place] [address] Aug, [facility] [address] [facility] [id number] [place] [address] Aug, [facility] [address] [facility] [id number] [place] [address] Aug, [facility] [id number] [address] Aug, [facility] [id number] [address] Jun, [facility] [id number] [address] Feb, [facility] [id number] [address] Sep, [facility] [id number] [address] Aug, [facility] [address] [id number] [address] Apr, [facility] [address] [id number] [address] March, IMMUNIZATIONS No Known Immunizations SOCIAL HISTORY Never Assessed REASON FOR VISIT 1 yr f/u DM Ed PLAN OF CARE VITAL SIGNS MEDICATIONS Unknown Medications RESULTS No Results PROCEDURES No Known procedures INSTRUCTIONS MEDICATIONS ADMINISTERED No Known Medications MEDICAL (GENERAL) HISTORY Type Description Date Medical History Scoliosis Medical History Bipolar Surgical History right hip replacement Surgical History c-sections x4 Hospitalization History Pneumonia 2011
--- OUTSIDE RECORDS SUMMARY | 2018-06-10 19:52 | XMS REPORT ---
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 Active 18217862 Problem Lumbago with sciatica, right side M54.41 Active 291653552 Problem Mixed hyperlipidemia E78.2 Active 219812793 Problem Carpal tunnel syndrome of left wrist G56.02 Active [id number] Problem Anxiety state, unspecified F41.1 Active 369025212 Problem Tension headache G44.209 Active 840115457 Problem Other chronic pain G89.29 Active 47925671 Problem Retinitis pigmentosa H35.52 Active 23669906 Problem Cervical disc disorder at C5-C6 level with radiculopathy M50.122 Active 758744776 Problem Calculus of gallbladder without cholecystitis without obstruction K80.20 Active 203708483 Problem Generalized anxiety disorder F41.1 Active 95990052 Problem Chest pain, unspecified type R07.9 Active 66445034 Problem Fibromyalgia M79.7 Active 951192636 Problem Insomnia G47.00 Active 698704563 Problem Tobacco use Z72.0 Active 439338928 Problem Low back pain M54.5 Active 709917918 Problem Panic attacks F41.0 Active 217028798 Problem Major depressive disorder, recurrent episode, moderate F33.1 Active 994758753 Problem Type 2 diabetes mellitus with hyperglycemia, without long-term current use of insulin E11.65 Active 72242374 ALLERGIES No Information ENCOUNTERS Encounter Location Date Diagnosis [facility] [address] [facility] [id number] [address] Jun, [facility] [address] [facility] [id number] [place] [address] May, [facility] [id number] [place] [address] 92520 -2143 May, Numbness of left hand R20.0 and Carpal tunnel syndrome of left wrist G56.02 [facility] [id number] [place] [address] 58848- 2782 May, [facility] [id number] [place] [address] 36109- 5306 Apr, Type 2 diabetes mellitus with hyperglycemia, without long- term current use of insulin E11.65 [place] [id number] [place] [address] 62290- 0497 March, Anxiety state, unspecified F41.1 [place] [id number] [place] [address] 09647- 2687 Feb, [place] [id number] [place] [address] 62596- 0017 Feb, Medicare annual wellness visit, initial Z00.00 ; Type 2 diabetes mellitus with hyperglycemia, without long-term current use of insulin E11.65 ; Major depressive disorder, recurrent episode, moderate F33.1 ; Mixed hyperlipidemia E78.2 ; Fibromyalgia M79.7 ; Retinitis pigmentosa H35.52 ; Panic attacks F41.0 ; Facial skin lesion L98.9 ; Fullness of neck R22.1 and Screening for colon cancer Z12.11 [place] [id number] [place] [address] 73891- 7971 Feb, Type 2 diabetes mellitus with hyperglycemia, without long- term current use of insulin E11.65 [facility] [id number] [place] [address] 64549- 5675 Jan, [place] [id number] [place] [address] 22092- 8151 Jan, Asymptomatic microscopic hematuria R31.21 ; Chest pain, unspecified type R07.9 and Generalized anxiety disorder F41.[address] [address]60- 5717 Jan, [facility] [address] [address] 345[address] Jan, [facility] [id number] [place] [address] 25235 -5631 Dec, [facility] [id number] [place] [address] 15471- 1760 Dec, [facility] [id number] [place] [address] 55612- 4794 Dec, [facility] [id number] [place] [address] 16608- 9441 Dec, [facility] [id number] [place] [address] 54042- 6241 Dec, [facility] [id number] [place] [address] 48818- 4365 Dec, Tension headache G44.209 [facility] [id number] [place] [address] 64757- 9042 09 Dec, 2017 Elevated LFTs R79.89 ; Type 2 diabetes mellitus with hyperglycemia, without long-term current use of insulin E11.65 ; Abdominal bloating R14.0 and Other fatigue R53.83 [facility] [id number] [place] [address] 89928- 9126 Dec, Elevated ALT measurement R74.0 [facility] [id number] [place] [address] 26180- 6833 Nov, Type 2 diabetes mellitus with hyperglycemia, without long- term current use of insulin E11.65 and Mixed hyperlipidemia E78.2 [facility] [id number] [place] [address] 85143- 8615 Oct, [facility] [id number] [place] [address] 83343- 2713 Oct, Elevated ALT measurement R74.0 [facility] [id number] [place] [address]- 1112 Oct, [facility] [id number] [place] [address] 41269- 5256 Oct, [facility] [id number] [place] [address] 10377- 1195 Oct, Breast cancer screening Z12.[address] 56494- 2804 Sep, Tension headache G44.209 ; Cervical disc disorder at C5-C6 level with radiculopathy M50.122 ; Other fatigue R53.83 ; Breast pain, left N64.4 ; Vertigo R42 and Abnormal tympanic membrane of left ear H73.92 [facility] [id number] [place] [address] 60806 -2414 Sep, Screening breast examination Z12.[address] 51447- 8234 Sep, [facility] [id number] [place] [address] 72847- 7308 Sep, Mixed hyperlipidemia E78.2 and Type 2 diabetes mellitus with hyperglycemia, without long-term current use of insulin E11.65 [place] [id number] [place] [address] 99791- 4687 Jul, [place] [id number] [place] [address] 21631- 6969 Jul, Lumbago with sciatica, right side M54.41 and Other chronic pain G89.29 [place] [id number] [place] [address] 08051- 2577 May, Type 2 diabetes mellitus with hyperglycemia, without long- term current use of insulin E11.65 ; Low back pain M54.5 ; Tobacco use Z72.0 ; Mixed hyperlipidemia E78.2 ; Lateral epicondylitis of right elbow M77.11 and 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 [place] [id number] [address] 5965 Apr, [facility] [id number] [place] [address] 25669- 0937 Apr, Low back pain M54.5 [facility] [id number] [place] [address] 15727- 5087 Apr, Pain in thoracic spine M54.6 [facility] [id number] [place] [address] 72276 -8457 March, Lumbosacral neuritis M54.17 [facility] [id number] [place] [address] 07496- 0598 March, Low back pain M54.5 [facility] [id number] [place] [address] 83375- 6779 March, [facility] [id number] [place] [address] 39920- 7212 March, [facility] [id number] [place] [address] 08503- 6296 March, [facility] [id number] [place] [address] 56500- 6897 Feb, [facility] [id number] [place] [address] 63619- 5944 Feb, [facility] [id number] [place] [address] 89715- 9008 Feb, [facility] [id number] [place] [address] 73778- 8061 Feb, Low back pain M54.5 and Pain in thoracic spine M54.6 [facility] [id number] [place] [address] 99433- 4338 Jan, Panic attacks F41.0 ; Type 2 diabetes mellitus with hyperglycemia, without long-term current use of insulin E11.65 and Other chest pain R07.89 [facility] [id number] [address]- 6203 Jan, [facility] [address] [place] [address] 59626- 2764 Jan, Type 2 diabetes mellitus with hyperglycemia, without long- term current use of insulin E11.65 [facility] [id number] [place] [address] 83717- 6260 Jan, Pain in thoracic spine M54.6 [facility] [id number] [place] [address] 10802- 6463 Jan, Type 2 diabetes mellitus with hyperglycemia, without long- term current use of insulin E11.65 and Elevated liver enzymes R74.8 [facility] [id number] [place] [address] 51927- 7051 Jan, [facility] [id number] [place] [address] 43938- 8385 Dec, Tobacco use Z72.0 ; Prediabetes R73.09 ; Elevated liver enzymes R74.8 ; Elevated fasting glucose R73.01 ; Elevated ALT measurement R74.0 ; Pain in thoracic spine M54.6 ; Panic attacks F41.0 and Type 2 diabetes mellitus with hyperglycemia, without long-term current use of insulin E11.65 [facility] [address] [address] Jun, Abdominal pain, right upper quadrant R10.11 [facility] [address] [address]- 3050 Jun, [facility] [address] [place] [address] 90066- 2743 Jun, [facility] [id number] [place] [address] 10746- 0241 Jun, [facility] [id number] [place] [address] 20731- 1966 May, Routine gynecological examination Z01.419 ; Encounter for Papanicolaou smear for cervical cancer screening Z12.4 ; Screening breast examination Z12.39 ; Vaginal discharge N89.8 and Candidal vaginitis B37.3 [facility] [address] 69034- 4011 May, [facility] [address] 92801- 3328 May, Prediabetes R73.09 ; Elevated ALT measurement R74.0 ; Elevated fasting glucose R73.01 and Palpitations R00.2 [place] [address] 64926- 8188 Feb, [place] [address] 24694- 2590 Feb, [place] [address] 17221- 3414 Feb, Generalized anxiety disorder F41.1 and Major depressive disorder, recurrent episode, moderate F33.1 [facility] [address] 88106- 4232 Feb, Generalized anxiety disorder F41.1 ; Low back pain M54.5 and Insomnia G47.00 [place] [address] 96789- 1416 Jan, Elevated fasting glucose R73.01 and Elevated ALT measurement R74.0 [place] [address] 03534- 0088 Jan, Generalized anxiety disorder F41.1 ; Low back pain M54.5 and Screening cholesterol level Z13.220 [facility] [address] 48084- 3875 Dec, Scoliosis M41.9 and Anxiety F41.9 [facility] [address] 65610- 1414 Feb, [place] [address] 90322- 8738 Feb, [facility] [place] [facility] [address] [id number] [place] [address]- 5894 Apr, [facility] [place] [facility] [address] [id number] [place] [address]- 2946 March, [facility] [place] [facility] [address] [id number] [place] [address]- 0275 March, [facility] [place] [facility] [address] [id number] [place] [address]- 0048 March, [facility] [place] [facility] [address] [id number] [place] [address]- 6078 March, [facility] [place] [facility] [address] [id number] [place] [address]- 2500 March, [facility] [place] [facility] [address] [id number] [place] [address]- 6020 March, [facility] [place] [facility] [address] [id number] [place] [address]- 4976 March, [facility] [place] [facility] [address] [id number] [place] [address]- 2375 March, [facility] [place] [facility] [address] [id number] [place] [address]- 2230 Feb, [facility] [place] [facility] [address] [id number] [place] [address]- 6227 Feb, [facility] [place] [facility] [address] [id number] [place] [address]- 0792 Feb, [facility] [place] [facility] [address] [id number] [place] [address]- 3625 Feb, [facility] [place] [facility] [address] [id number] [place] [address]- 5759 Jan, [facility] [place] [facility] [address] [id number] [place] [address]- 5596 Jan, [facility] [place] [facility] [address] [id number] [place] [address]- 3182 Jan, [facility] [place] [facility] [address] [id number] [place] [address]- 0489 Jan, [facility] [place] [facility] [address] [id number] [place] [address]- 6098 Jan, [facility] [place] [facility] [address] [facility] [id number] [place] [address]- 0604 Jan, [facility] [place] [facility] [address] [id number] [place] [address]- 2128 Jan, [facility] [place] [facility] [address] [id number] [place] [address]- 4705 Dec, [facility] [place] [facility] [address] [facility] [id number] [place] [address]- 7925 Dec, [facility] [place] [facility] [address] [facility] [id number] [place] [address]- 1130 Dec, [facility] [place] [facility] [address] [id number] [place] [address]- 4637 Dec, [facility] [place] [facility] [address] [id number] [place] [address]- 8636 Dec, [facility] [place] [facility] [address] [facility] [id number] [place] [address]- 7243 Dec, [facility] [place] [facility] [address] [id number] [place] [address]- 9248 Nov, [facility] [place] [facility] [address] [id number] [place] [address]- 3759 Nov, [facility] [place] [facility] [address] [id number] [place] [address]- 4110 Nov, [facility] [place] [facility] [address] [id number] [place] [address]- 1513 Nov, [facility] [place] [facility] [address] [facility] [id number] [place] [address]- 6050 Nov, [facility] [place] [facility] [address] [id number] [place] [address]- 5364 Nov, [facility] [place] [facility] [address] [id number] [place] [address]- 3147 Nov, [facility] [place] [facility] [address] [id number] [place] [address]- 1616 Oct, [facility] [place] [facility] [address] [id number] [place] [address]- 1935 Oct, [facility] [place] [facility] [address] [id number] [place] [address]- 9309 Oct, [facility] [place] [facility] [address] [id number] [place] 0323 Oct, [facility] [place] [facility] [address] [id number] [place] [address]- 9907 Sep, [facility] [place] [facility] [address] [id number] [place] [address]- 5971 Sep, [facility] [place] [facility] [address] [id number] [place] [address]- 9281 Sep, [facility] [place] [facility] [address] [id number] [place] [address]- 1906 Sep, [facility] [place] [facility] [address] [id number] [place] [address]- 0926 Sep, [facility] [place] [facility] [address] [id number] [place] [address]- 1091 Sep, [facility] [place] [facility] [address] [id number] [place] [address]- 9355 Aug, [facility] [place] [facility] [address] [id number] [place] [address]- 1693 Aug, [facility] [place] [facility] [address] [id number] [place] [address]- 0549 Aug, [facility] [place] [facility] [address] [id number] [place] [address]- 4760 Aug, [facility] [place] [facility] [address] [id number] [place] [address]- 9300 Aug, [facility] [place] [facility] [address] [id number] [place] [address]- 6666 Aug, [facility] [place] [facility] [address] [id number] [place] [address]- 2546 Aug, [facility] [place] [facility] [address] [id number] [place] [address]- 6575 Jul, [facility] [place] [facility] [address] [id number] [place] [address]- 3353 Jul, [facility] [place] [facility] [address] [id number] [place] [address]- 4772 Jun, [facility] [place] [facility] [address] [id number] [place] [address]- 9305 May, [facility] [place] [facility] [address] [id number] [place] [address]- 5699 May, [facility] [place] [facility] [address] [id number] [place] [address]- 9589 May, [facility] [place] [facility] [address] [id number] [place] [address]- 4181 Apr, [facility] [place] [facility] [address] [id number] [place] [address]- 8611 Apr, [facility] [place] [facility] [address] [id number] [place] [address]- 5061 Apr, [facility] [place] [facility] [address] [id number] [place] [address]- 6229 March, [facility] [place] [facility] [address] [id number] [place] [address]- 7766 March, [facility] [place] [facility] [address] [id number] [place] [address]- 2546 March, [facility] [place] [facility] [address] [id number] [place] [address]- 4963 25 Feb, 2013 [facility] [address] [id number] [place] [address]- 5956 22 Feb, 2013 [facility] [place] [facility] [address] [id number] [place] 0826 15 Feb, 2013 [facility] [address] [id number] [place] [address]- 5872 28 Jan, 2013 [facility] [place] [facility] [address] [id number] [place] [address]- 4489 19 Jan, 2013 [facility] [address] [id number] [place] 9799 18 Jan, 2013 [facility] [address] [facility] [id number] [place] [address]- 1731 15 Jan, 2013 [facility] [address] [facility] [id number] [place] [address]- 7996 14 Jan, 2013 [facility] [address] [id number] [place] [address]- 8500 12 Jan, 2013 [facility] [address] [id number] [place] [address]- 3712 05 Jan, 2013 [facility] [address] [facility] [id number] [place] [address]- 2990 28 Dec, 2012 [facility] [place] [facility] [address] [id number] [place] [address]- 1602 18 Dec, 2012 [facility] [place] [facility] [address] [facility] [id number] [place] [address]- 8062 15 Dec, 2012 [facility] [place] [facility] [address] [id number] [place] [address]- 8002 14 Dec, 2012 [facility] [place] [facility] [address] [facility] [id number] [place] [address]- 5306 05 Dec, 2012 [facility] [place] [facility] [address] [facility] [id number] [place] [address]- 1307 29 Nov, 2012 [facility] [place] [facility] [address] [id number] [place] [address]- 2916 Nov, [facility] [place] [facility] [address] [id number] [place] [address]- 0024 Nov, [facility] [place] [facility] [address] [id number] [place] [address]- 0409 Nov, [facility] [place] [facility] [address] [id number] [place] [address]- 2153 Oct, [facility] [place] [facility] [address] [id number] [place] 2166 Oct, [facility] [place] [facility] [address] [id number] [place] [address]- 2564 Oct, [facility] [place] [facility] [address] [id number] [place] [address]- 5832 Oct, [facility] [place] [facility] [address] [id number] [place] [address]- 4850 Oct, [facility] [place] [facility] [address] [id number] [place] [address]- 7640 Oct, [facility] [place] [facility] [address] [id number] [place] [address]- 9584 Oct, [facility] [place] [facility] [address] [id number] [place] [address]- 5984 Oct, [facility] [place] [facility] [address] [id number] [place] [address]- 1031 06 Oct, 2012 [facility] [place] [facility] [address] [id number] [place] [address]- 6837 16 Sep, 2012 [facility] [place] [facility] [address] [id number] [place] [address]- 3336 16 Sep, 2012 [facility] [place] [facility] [address] [id number] [place] [address]- 8500 Sep, [facility] [place] [facility] [address] [id number] [place] [address]- 4296 08 Sep, 2012 [facility] [place] [facility] [address] [id number] [place] [address]- 2996 08 Sep, 2012 [facility] [place] [facility] [address] [id number] [place] [address] Aug, [facility] [place] [facility] [address] [id number] [place] [address] Aug, [facility] [place] [facility] [address] [id number] [place] [address] 17 Aug, 2012 [facility] [place] [facility] [address] [id number] [place] [address] 17 Aug, 2012 [facility] [place] [facility] [address] [id number] [place] [address] 16 Aug, 2012 [facility] [place] [facility] [address] [id number] [place] [address] Aug, [facility] [place] [facility] [address] [id number] [place] [address] 11 Aug, 2012 [facility] [place] [facility] [address] [id number] [place] [address] 10 Aug, 2012 [facility] [place] [facility] [address] [facility] [id number] [place] [address] 10 Aug, 2012 [facility] [place] [facility] [address] [id number] [place] [address] 09 Aug, 2012 [facility] [place] [facility] [address] [id number] [place] [address] 05 Aug, 2012 [facility] [place] [facility] [address] [id number] [place] [address] 04 Aug, 2012 [facility] [place] [facility] [address] [id number] [place] [address] 17 Sep, 2011 [facility] [place] [facility] [address] [id number] [place] [address] 13 Sep, 2011 [facility] [place] [facility] [address] [id number] [place] [address]- 74[address] 13 Jul, 2012 [facility] [place] [facility] [address] [id number] [place] [address]- [address] 11 Jul, 2012 [facility] [place] [facility] [address] [id number] [place] [address] 2546 10 Jul, 2012 [facility] [place] [facility] [address] [id number] [place] [address] 2546 08 Jul, 2012 [facility] [place] [facility] [address] [id number] [place] [address]- [address] 16 Jun, 2012 [facility] [place] [facility] [address] [id number] [place] [address]- [address]35 14 Jun, 2012 [facility] [place] [facility] [address] [id number] [place] [address] 7737 17 May, 2012 [facility] [place] [facility] [address] [id number] [place] [address] 98[address] 17 May, 2012 [facility] [place] [facility] [address] [id number] [place] [address]- 74[address] 13 May, 2012 [facility] [place] [facility] [address] [id number] [place] [address] 477[address] 12 May, 2012 [facility] [place] [facility] [address] [id number] [place] [address] 9[address] 19 Apr, 2012 [facility] [place] [facility] [address] [id number] [place] [address] 19 Apr, 2012 [facility] [place] [facility] [address] [id number] [place] [address]- [address] 18 Apr, 2012 [facility] [place] [facility] [address] [id number] [place] [address]- [address] 11 Apr, 2012 [facility] [place] [facility] [address] [id number] [place] [address] 254 08 Apr, 2012 [facility] [place] [facility] [address] [id number] [place] [address] March, [facility] [address] [id number] [place] [address] March, [facility] [place] [facility] [address] [id number] [place] [address] March, [facility] [place] [facility] [address] [id number] [place] [address] March, [facility] [place] [facility] [address] [id number] [place] [address] March, [facility] [address] [id number] [place] [address] Feb, [facility] [place] [facility] [address] [id number] [place] [address] Feb, [facility] [place] [facility] [address] [id number] [place] [address] Jan, [facility] [place] [facility] [address] [id number] [place] [address] Jan, [facility] [place] [facility] [address] [id number] [place] [address]- [address] Jan, [facility] [place] [facility] [address] [id number] [place] [address] Dec, [facility] [place] [facility] [address] [id number] [place] [address]- [address] Nov, [facility] [place] [facility] [address] [id number] [place] [address] Nov, [facility] [place] [facility] [address] [id number] [place] [address] Nov, [facility] [place] [facility] [address] [id number] [place] [address] Nov, [facility] [place] [facility] [address] [id number] [place] [address] Oct, [facility] [place] [facility] [address] [id number] [place] [address] 06 Oct, 2011 [facility] [address] [id number] [place] [address] Sep, [facility] [place] [facility] [address] [id number] [place] [address] 18 Sep, 2011 [facility] [place] [facility] [address] [id number] [place] [address] Sep, [facility] [place] [facility] [address] [id number] [place] [address] 10 Sep, 2011 [facility] [place] [facility] [address] [id number] [place] [address], [place] [address] 08 Sep, 2011 [facility] [place] [facility] [address] [id number] [place] [address] 16 Jun, 2011 [facility] [place] [facility] [address] [id number] [place] [address] 15 Dec, 2010 [facility] [place] [facility] [address] [id number] [place] [address] Sep, [facility] [place] [facility] [address] [id number] [place] [address] 29 Aug, 2010 [facility] [place] [facility] [address] [id number] [place] [address] Aug, [facility] [place] [facility] [address] [id number] [place] [address] Aug, [facility] [place] [facility] [address] [id number] [place] [address] Aug, [facility] [place] [facility] [address] [id number] [place] [address] Aug, [facility] [place] [facility] [address] [id number] [place] [address] 17 Jun, 2010 [facility] [place] [facility] [address] [id number] [place] [address] Feb, [facility] [address] [facility] [id number] [place] [address] Sep, [facility] [id number] [place] [address] Aug, [facility] [address] [id number] [place] [address] Apr, [facility] [id number] [place] [address] March, IMMUNIZATIONS No Known Immunizations SOCIAL HISTORY Never Assessed REASON FOR VISIT transportation PLAN OF CARE VITAL SIGNS MEDICATIONS Unknown Medications RESULTS No Results PROCEDURES No Known procedures INSTRUCTIONS MEDICATIONS ADMINISTERED No Known Medications MEDICAL (GENERAL) HISTORY Type Description Date Medical History Scoliosis Medical History Bipolar Surgical History right hip replacement Surgical History c-sections x4 Hospitalization History Pneumonia 2011
--- OUTSIDE RECORDS SUMMARY | 2018-06-10 19:52 | XMS REPORT ---
Author Author ASHOK ROMY [facility] Address [address] [place] [address] Care Team Providers Care Feather Baler Name Role Phone ASHOKPHILLIP PRIDEHANY Unavailable PROBLEMS Type Condition ICD9-CM Code [id number] Code Onset Dates Condition Status SNOMED Code Problem Lumbago with sciatica, right side M54.41 Active 893591658 Problem Tension headache G44.209 Active 882545436 Problem Other chronic pain G89.29 Active 76954119 Problem COPD with exacerbation J44.1 Active 265761980 Problem Fibromyalgia M79.7 Active 759767227 Problem Peripheral polyneuropathy G62.9 Active 81732265 Problem Chest pain, unspecified type R07.9 Active 99346794 Problem Retinitis pigmentosa H35.52 Active 45178913 Problem Cervical disc disorder at C5-C6 level with radiculopathy M50.122 Active 545270548 Problem Carpal tunnel syndrome of left wrist G56.02 Active [id number] Problem Anxiety state, unspecified F41.1 Active 684418289 Problem Low back pain M54.5 Active 317512332 Problem Major depressive disorder, recurrent episode, moderate F33.1 Active 997448191 Problem Calculus of gallbladder without cholecystitis without obstruction K80.20 Active 696683125 Problem Generalized anxiety disorder F41.1 Active 32714112 Problem Panic attacks F41.0 Active 957892793 Problem Type 2 diabetes mellitus with hyperglycemia, without long-term current use of insulin E11.65 Active 59821006 Problem Insomnia G47.00 Active 410495031 Problem 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 [id number] [address] Jun, [facility] [address] [address] May, [facility] [id number] [place] [address] 04507- 1518 May, Type 2 diabetes mellitus with hyperglycemia, without long- term current use of insulin E11.65 ; Peripheral polyneuropathy G62.9 ; Cough R05 and COPD with exacerbation J44.1 [place] [id number] [place] [address] 82707- 6117 May, [place] [id number] [place] [address] 35732- 6317 May, COPD with exacerbation J44.1 and Tobacco abuse counseling Z71.6 [place] [id number] [place] [address] 92145- 4737 May, [place] [id number] [place] [address] 07178- 2098 May, [facility] [id number] [place] [address] 84658 -9687 May, Numbness of left hand R20.0 and Carpal tunnel syndrome of left wrist G56.02 [place] [id number] [place] [address] 89920- 4883 May, [place] [id number] [place] [address] 62428- 9281 Apr, Type 2 diabetes mellitus with hyperglycemia, without long- term current use of insulin E11.65 [place] [id number] [place] [address] 86814- 8412 March, Anxiety state, unspecified F41.1 [place] [id number] [place] [address] 52237- 8400 Feb, [place] [id number] [place] [address] 75435- 9063 Feb, Medicare annual wellness visit, initial Z00.00 ; Type 2 diabetes mellitus with hyperglycemia, without long-term current use of insulin E11.65 ; Major depressive disorder, recurrent episode, moderate F33.1 ; Mixed hyperlipidemia E78.2 ; Fibromyalgia M79.7 ; Retinitis pigmentosa H35.52 ; Panic attacks F41.0 ; Facial skin lesion L98.9 ; Fullness of neck R22.1 and Screening for colon cancer Z12.11 [place] [address] 05164- 6887 Feb, Type 2 diabetes mellitus with hyperglycemia, without long- term current use of insulin E11.65 [place] [address] 18333- 3867 Jan, [place] [address] 35949- 5326 Jan, Asymptomatic microscopic hematuria R31.21 ; Chest pain, unspecified type R07.9 and Generalized anxiety disorder F41.1 [place] [address] 98823- 3679 Jan, [place] [address] 56834- 5523 Jan, [facility] [address] 05082 -0388 Dec, [place] [address] 59514- 8075 Dec, [place] [address] 55738- 8305 Dec, [place] [address] 42193- 0319 Dec, [place] [address] 30728- 5900 14 Dec, 2017 [place] [address] 26287- 3169 13 Dec, 2017 Tension headache G44.209 [place] [address] 23503- 1534 09 Dec, 2017 Elevated LFTs R79.89 ; Type 2 diabetes mellitus with hyperglycemia, without long-term current use of insulin E11.65 ; Abdominal bloating R14.0 and Other fatigue R53.83 [place] [address] 39153- 7995 08 Dec, 2017 Elevated ALT measurement R74.0 [place] [address] 39317- 6824 Nov, Type 2 diabetes mellitus with hyperglycemia, without long- term current use of insulin E11.65 and Mixed hyperlipidemia E78.2 [place] [address] [place] 096056- 2655 Oct, [place] [address] 56550- 3730 Oct, Elevated ALT measurement R74.0 [place] [address] 06733- 9414 Oct, [place] [address] 09350- 5523 Oct, [place] [address] 59419- 3113 Oct, Breast cancer screening Z12.31 [place] [address] 73605- 4961 Sep, Tension headache G44.209 ; Cervical disc disorder at C5-C6 level with radiculopathy M50.122 ; Other fatigue R53.83 ; Breast pain, left N64.4 ; Vertigo R42 and Abnormal tympanic membrane of left ear H73.92 [facility] [address] 36717 -9090 Sep, Screening breast examination Z12.39 [place] [address] 82640- 8181 Sep, [place] [id number] [place] [address] 35311- 6048 Sep, Mixed hyperlipidemia E78.2 and Type 2 diabetes mellitus with hyperglycemia, without long-term current use of insulin E11.65 [facility] [id number] [place] [address] 40189- 3764 07 Jul, 2017 [facility] [id number] [place] [address] 08221- 0888 Jul, Lumbago with sciatica, right side M54.41 and Other chronic pain G89.29 [place] [id number] [place] [address] 68287- 5847 May, Type 2 diabetes mellitus with hyperglycemia, without long- term current use of insulin E11.65 ; Low back pain M54.5 ; Tobacco use Z72.0 ; Mixed hyperlipidemia E78.2 ; Lateral epicondylitis of right elbow M77.11 and 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 [place] [id number] [place] [address] 82217- 7580 Apr, [place] [id number] [place] [address] 15106- 9655 Apr, Low back pain M54.5 [place] [id number] [place] [address] 70100- 2882 Apr, Pain in thoracic spine M54.6 [facility] [id number] [place] [address] 71067 -3557 March, Lumbosacral neuritis M54.17 [facility] [id number] [place] [address] 99586- 9905 March, Low back pain M54.5 [facility] [id number] [place] [address] 24310- 2866 March, [facility] [id number] [place] [address] 00250- 7020 March, [facility] [address] [place] [address]- 9634 March, [place] [id number] [place] [address] 75504- 1724 Feb, [facility] [id number] [place] [address] 11291- 7789 Feb, [place] [id number] [place] [address] 02284- 4528 Feb, [place] [id number] [place] [address] 04991- 9695 Feb, Low back pain M54.5 and Pain in thoracic spine M54.6 [place] [id number] [place] [address] 39826- 9680 Jan, Panic attacks F41.0 ; Type 2 diabetes mellitus with hyperglycemia, without long-term current use of insulin E11.65 and Other chest pain R07.89 [place] [id number] [place] [address] 77975- 5516 Jan, [place] [id number] [place] [address] 42170- 9427 Jan, Type 2 diabetes mellitus with hyperglycemia, without long- term current use of insulin E11.65 [place] [address] [place] [address] 91282- 1755 Jan, Pain in thoracic spine M54.6 [place] [address] [place] [address] 50309- 5625 Jan, Type 2 diabetes mellitus with hyperglycemia, without long- term current use of insulin E11.65 and Elevated liver enzymes R74.8 [place] [id number] [place] [address] 74140- 6014 Jan, [place] [address] [place] [address] 67211- 3234 Dec, Tobacco use Z72.0 ; Prediabetes R73.09 ; Elevated liver enzymes R74.8 ; Elevated fasting glucose R73.01 ; Elevated ALT measurement R74.0 ; Pain in thoracic spine M54.6 ; Panic attacks F41.0 and Type 2 diabetes mellitus with hyperglycemia, without long-term current use of insulin E11.65 [facility] [id number] [place] [address] 19924 -8037 Jun, Abdominal pain, right upper quadrant R10.11 [facility] [id number] [place] [address] 94925- 4688 Jun, [facility] [id number] [place] [address] 93606- 0443 Jun, [place] [id number] [place] [address] 49588- 6993 Jun, [facility] [id number] [place] [address] 16263- 7701 May, Routine gynecological examination Z01.419 ; Encounter for Papanicolaou smear for cervical cancer screening Z12.4 ; Screening breast examination Z12.39 ; Vaginal discharge N89.8 and Candidal vaginitis B37.3 [place] [id number] [place] [address] 89222- 3129 May, [place] [id number] [place] [address] 04943- 2601 May, Prediabetes R73.09 ; Elevated ALT measurement R74.0 ; Elevated fasting glucose R73.01 and Palpitations R00.2 [facility] [id number] [place] [address] 96149- 6483 Feb, [place] [id number] [place] [address] 57475- 3464 Feb, [place] [address] 89859- 0246 Feb, Generalized anxiety disorder F41.1 and Major depressive disorder, recurrent episode, moderate F33.1 [place] [id number] [place] [address] 98470- 5777 Feb, Generalized anxiety disorder F41.1 ; Low back pain M54.5 and Insomnia G47.00 [facility] [id number] [place] [address] 89618- 6439 Jan, Elevated fasting glucose R73.01 and Elevated ALT measurement R74.0 [facility] [id number] [place] [address] 46509- 0600 Jan, Generalized anxiety disorder F41.1 ; Low back pain M54.5 and Screening cholesterol level Z13.220 [facility] [id number] [place] [address] 20464- 0686 Dec, Scoliosis M41.9 and Anxiety F41.9 [facility] [id number] [place] [address] 91020- 9646 Feb, [facility] [id number] [place] [address] 57428- 2365 Feb, [facility] [id number] [place] [address] 62319- 0999 Apr, [facility] [id number] [place] [address] 51083- 3603 March, [facility] [id number] [place] [address] 92858- 7173 March, [facility] [id number] [place] [address] 55173- 5697 March, [facility] [id number] [place] [address] 15182- 9165 March, [facility] [id number] [place] [address] 44443- 4726 March, [facility] [id number] [place] [address] 30817- 7351 March, [facility] [id number] [place] [address] 37311- 2446 March, [facility] [address] [facility] [id number] [place] [address]- 1859 March, [facility] [place] [facility] [address] [id number] [place] [address]- 8110 Feb, [facility] [place] [facility] [address] [id number] [place] [address]- 5541 Feb, [facility] [place] [facility] [address] [id number] [place] [address]- 4338 Feb, [facility] [place] [facility] [address] [id number] [place] [address]- 4050 Feb, [facility] [place] [facility] [address] [id number] [place] [address]- 2752 Jan, [facility] [place] [facility] [address] [id number] [place] [address]- 7595 Jan, [facility] [place] [facility] [address] [id number] [place] [address]- 7794 Jan, [facility] [place] [facility] [address] [id number] [place] [address]- 8243 Jan, [facility] [place] [facility] [address] [id number] [place] [address]- 0218 Jan, [facility] [place] [facility] [address] [id number] [place] [address]- 1203 Jan, [facility] [place] [facility] [address] [id number] [place] [address]- 2046 Jan, [facility] [place] [facility] [address] [id number] [place] [address]- 1962 Dec, [facility] [place] [facility] [address] [id number] [place] [address]- 7257 Dec, [facility] [place] [facility] [address] [id number] [place] [address]- 1256 Dec, [facility] [place] [facility] [address] [id number] [place] [address]- 0744 Dec, [facility] [place] [facility] [address] [id number] [place] [address]- 0243 Dec, [facility] [place] [facility] [address] [id number] [place] [address]- 2723 Dec, [facility] [place] [facility] [address] [id number] [place] [address]- 8076 Nov, [facility] [place] [facility] [address] [id number] [place] [address]- 0614 Nov, [facility] [place] [facility] [address] [id number] [place] [address]- 7900 Nov, [facility] [place] [facility] [address] [id number] [place] [address]- 2271 Nov, [facility] [place] [facility] [address] [id number] [place] [address]- 3754 Nov, [facility] [place] [facility] [address] [id number] [place] [address]- 2067 Nov, [facility] [place] [facility] [address] [id number] [place] [address]- 8842 Nov, [facility] [place] [facility] [address] [id number] [place] [address]- 2141 Oct, [facility] [place] [facility] [address] [id number], [place] [address]- 8076 Oct, [facility] [place] [facility] [address] [id number], [place] [address]- 6600 Oct, [facility] [place] [facility] [address] [id number] [place] [address]- 0324 Oct, [facility] [place] [facility] [address] [id number] [place] [address]- 5515 Sep, [facility] [place] [facility] [address] [id number] [place] [address]- 6566 Sep, [facility] [place] [facility] [address] [id number] [place] [address]- 2546 Sep, [facility] [place] [facility] [address] [id number] [place] [address]- 3232 Sep, [facility] [place] [facility] [address] [id number] [place] [address]- 2546 Sep, [facility] [place] [facility] [address] [id number] [place] [address] 2546 Sep, [facility] [place] [facility] [address] [id number] [place] [address]- 8674 Aug, [facility] [place] [facility] [address] [id number] [place] [address]- 9983 Aug, [facility] [place] [facility] [address] [id number] [place] [address]- 4778 Aug, [facility] [place] [facility] [address] [id number] [place] [address]- 9588 Aug, [facility] [place] [facility] [address] [id number] [place] [address]- 8664 Aug, [facility] [place] [facility] [address] [id number] [place] [address]- 4367 Aug, [facility] [place] [facility] [address] [id number] [place] [address]- 5930 Aug, [facility] [place] [facility] [address] [id number] [place] [address]- 2543 Jul, [facility] [place] [facility] [address] [id number] [place] [address]- 2549 Jul, [facility] [place] [facility] [address] [id number] [place] [address]- 2546 Jun, [facility] [place] [facility] [address] [id number] [place] [address]- 2546 May, [facility] [place] [facility] [address] [id number] [place] [address]- 1366 May, [facility] [address] [id number] [place] [address]- 2480 10 May, 2013 [facility] [place] [facility] [address] [id number] [place] [address]- 8739 Apr, [facility] [address] [id number] [place] [address]- 2254 Apr, [facility] [place] [facility] [address] [id number] [place] [address]- 2494 Apr, [facility] [address] [id number] [place] [address]- 5394 March, [facility] [place] [facility] [address] [id number] [place] [address]- 0239 March, [facility] [address] [id number] [place] [address]- 7546 March, [facility] [address] [id number] [place] [address]- 5182 Feb, [facility] [place] [facility] [address] [id number] [place] [address]- 4358 Feb, [facility] [place] [facility] [address] [id number] [place] [address]- 8043 Feb, [facility] [place] [facility] [address] [id number] [place] [address]- 5417 28 Jan, 2013 [facility] [place] [facility] [address] [id number], [place] [address]- 2547 19 Jan, 2013 [facility] [place] [facility] [address] [id number] [place] [address]- 0653 18 Jan, 2013 [facility] [place] [facility] [address] [id number] [place] [address]- 3862 15 Jan, 2013 [facility] [place] [facility] [address] [id number] [place] 1481 14 Jan, 2013 [facility] [place] [facility] [address] [id number], [place] [address]- 1816 12 Jan, 2013 [facility] [address] [id number] [place] [address]- 2119 Jan, [facility] [place] [facility] [address] [id number] [place] [address]- 8456 28 Dec, 2012 [facility] [address] [id number] [place] [address]- 8096 18 Dec, 2012 [facility] [place] [facility] [address] [id number] [place] [address]- 9518 15 Dec, 2012 [facility] [address] [id number] [place] [address]- 4246 14 Dec, 2012 [facility] [address] [id number] [place] [address]- 3016 05 Dec, 2012 [facility] [address] [id number] [place] [address]- 8983 29 Nov, 2012 [facility] [address] [id number] [place] [address]- 8488 17 Nov, 2012 [facility] [address] [id number] [place] [address]- 5891 Nov, [facility] [address] [facility] [id number] [place] [address]- 5723 02 Nov, 2012 [facility] [address] [id number] [place] [address]- 1396 Oct, [facility] [address] [id number] [place] [address]- 0514 Oct, [facility] [place] [facility] [address] [id number] [place] [address]- 5933 Oct, [facility] [place] [facility] [address] [id number] [place] [address]- 3812 Oct, [facility] [address] [id number] [place] [address]- 7977 Oct, [facility] [place] [facility] [address] [id number] [place] [address]- 7907 Oct, [facility] [place] [facility] [address] [id number] [place] [address]- 4657 Oct, [facility] [place] [facility] [address] [id number] [place] [address]- 2757 Oct, [facility] [place] [facility] [address] [id number] [place] [address]- 6199 Oct, [facility] [place] [facility] [address] [id number] [place] [address]- 2848 Sep, [facility] [place] [facility] [address] [id number] [place] [address]- 6682 Sep, [facility] [place] [facility] [address] [id number] [place] [address]- 4305 Sep, [facility] [place] [facility] [address] [id number] [place] [address] Sep, [facility] [place] [facility] [address] [id number] [place] [address] Sep, [facility] [place] [facility] [address] [id number] [place] [address] Aug, [facility] [place] [facility] [address] [id number] [place] [address] Aug, [facility] [place] [facility] [address] [id number], [place] [address] Aug, [facility] [place] [facility] [address] [id number] [place] [address] Aug, [facility] [place] [facility] [address] [id number] [place] [address] Aug, [facility] [place] [facility] [address] [id number] [place] [address] Aug, [facility] [place] [facility] [address] [id number], [place] [address] 11 Aug, 2012 [facility] [place] [facility] [address] [id number] [place] [address] 10 Aug, 2012 [facility] [place] [facility] [address] [id number] [place] [address] 10 Aug, 2012 [facility] [place] [facility] [address] [id number] [place] [address] 09 Aug, 2012 [facility] [place] [facility] [address] [id number] [place] [address] 05 Aug, 2012 [facility] [place] [facility] [address] [id number] [place] [address] 04 Aug, 2012 [facility] [place] [facility] [address] [id number] [place] [address] 17 Jul, 2012 [facility] [place] [facility] [address] [id number] [place] [address] 13 Jul, 2012 [facility] [place] [facility] [address] [id number] [place] [address] 13 Jul, 2012 [facility] [place] [facility] [address] [id number] [place] [address] 11 Jul, 2012 [facility] [place] [facility] [address] [id number] [place] [address] 10 Jul, 2012 [facility] [place] [facility] [address] [id number] [place] [address]- [address] 08 Jul, 2012 [facility] [place] [facility] [address] [id number] [place] [address] 16 Jun, 2012 [facility] [place] [facility] [address] [id number] [place] [address] 14 Jun, 2012 [facility] [place] [facility] [address] [id number] [place] [address] 17 May, 2012 [facility] [place] [facility] [address] [id number] [place] [address] 17 May, 2012 [facility] [place] [facility] [address] [id number] [place] [address] 13 May, 2012 [facility] [address] [id number] [place] [address] 12 May, 2012 [facility] [place] [facility] [address] [id number] [place] [address] 19 Apr, 2012 [facility] [address] [id number] [place] [address] Apr, [facility] [address] [id number] [place] [address] Apr, [facility] [address] [id number] [place] [address] Apr, [facility] [address] [id number] [place] [address] Apr, [facility] [address] [id number] [place] [address] March, [facility] [address] [id number] [place] [address] March, [facility] [address] [id number] [place] [address] March, [facility] [address] [id number] [place] [address] March, [facility] [address] [id number] [place] [address]- [id number] March, [facility] [address] [id number] [place] [address] 24 Feb, 2012 [facility] [place] [facility] [address] [id number] [place] [address] Feb, [facility] [address] [id number] [place] [address] Jan, [facility] [place] [facility] [address] [id number] [place] [address] Jan, [facility] [address] [id number] [place] [address] Jan, [facility] [place] [facility] [address] [id number] [place] [address] 28 Dec, 2011 [facility] [place] [facility] [address] [id number] [place] [address] Nov, [facility] [place] [facility] [address] [id number] [place] [address] Nov, [facility] [place] [facility] [address] [id number] [place] [address] Nov, [facility] [place] [facility] [address] [id number] [place] [address] Nov, [facility] [place] [facility] [address] [id number] [place] [address] Oct, [facility] [place] [facility] [address] [id number] [place] [address] Oct, [facility] [place] [facility] [address] [id number] [place] [address] Sep, [facility] [place] [facility] [address] [id number] [place] [address] Sep, [facility] [place] [facility] [address] [id number] [place] [address] Sep, [facility] [place] [facility] [address] [id number], [place] [address] 10 Sep, 2011 [facility] [place] [facility] [address] [id number] [place] [address] 08 Sep, 2011 [facility] [place] [facility] [address] [id number] [place] [address] 16 Jun, 2011 [facility] [place] [facility] [address] [id number] [place] [address] 15 Dec, 2010 [facility] [place] [facility] [id number] [address] Sep, [facility] [id number] [address] Aug, [facility] [id number] [address] Aug, [facility] [id number] [address] Aug, [facility] [id number] [address] Aug, [facility] [id number], [place] [address] Aug, [facility] [id number] [address] Jun, [facility] [id number], [place] [address] Feb, [facility] [id number], [place] [address] Sep, [facility] [id number] [address] Aug, [facility] [id number], [place] [address] Apr, [facility] [id number] [address] March, IMMUNIZATIONS No Known Immunizations SOCIAL HISTORY Never Assessed REASON FOR VISIT Phone Call PLAN OF CARE VITAL SIGNS MEDICATIONS Unknown Medications RESULTS No Results PROCEDURES No Known procedures INSTRUCTIONS MEDICATIONS ADMINISTERED No Known Medications MEDICAL (GENERAL) HISTORY Type Description Date Medical History Scoliosis Medical History Bipolar Surgical History right hip replacement Surgical History c-sections x4 Hospitalization History Pneumonia 2011
--- OUTSIDE RECORDS SUMMARY | 2018-06-10 19:53 | XMS REPORT ---
Author Author ASHOK ROMY [facility] Address [address] [place] [address] Care Team Providers Care Clinical Operations Leader Name Role Phone ROMY PULIDO Unavailable PROBLEMS Type Condition ICD9-CM Code EKY47-DA Code Onset Dates Condition Status SNOMED Code Problem Panic attacks F41.0 Active 002821199 Problem Mixed hyperlipidemia E78.2 Active 432623637 Problem 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 Active 51096685 Problem Anxiety state, unspecified F41.1 Active 557791463 Problem Retinitis pigmentosa H35.52 Active 59694216 Problem Other chronic pain G89.29 Active 27276809 Problem Lumbago with sciatica, right side M54.41 Active 252156143 Problem Cervical disc disorder at C5-C6 level with radiculopathy M50.122 Active 264231032 Problem Tension headache G44.209 Active 457502495 Problem Fibromyalgia M79.7 Active 932720604 Problem Calculus of gallbladder without cholecystitis without obstruction K80.20 Active 173596724 Problem Chest pain, unspecified type R07.9 Active 81703751 Problem Major depressive disorder, recurrent episode, moderate F33.1 Active 892545053 Problem Insomnia G47.00 Active 296451910 Problem Generalized anxiety disorder F41.1 Active 64156596 Problem Tobacco use Z72.0 Active 966707754 Problem Low back pain M54.5 Active 927981343 Problem Type 2 diabetes mellitus with hyperglycemia, without long-term current use of insulin E11.65 Active 57490839 ALLERGIES No Information ENCOUNTERS Encounter Location Date Diagnosis [facility] [address], [place] [address] March, Anxiety state, unspecified F41.1 [facility] [id number], [place] [address] Feb, [facility] [address], [place] [address] Feb, Medicare annual wellness visit, initial Z00.00 ; Type 2 diabetes mellitus with hyperglycemia, without long-term current use of insulin E11.65 ; Major depressive disorder, recurrent episode, moderate F33.1 ; Mixed hyperlipidemia E78.2 ; Fibromyalgia M79.7 ; Retinitis pigmentosa H35.52 ; Panic attacks F41.0 ; Facial skin lesion L98.9 ; Fullness of neck R22.1 and Screening for colon cancer Z12.11 [facility] [id number] [place] [address] 68595- 9312 Feb, Type 2 diabetes mellitus with hyperglycemia, without long- term current use of insulin E11.65 [facility] [id number] [place] [address] 90289- 8057 Jan, [facility] [id number] [place] [address] 56974- 3306 Jan, Asymptomatic microscopic hematuria R31.21 ; Chest pain, unspecified type R07.9 and Generalized anxiety disorder F41.1 [facility] [id number] [place] [address] 22635- 5679 Jan, [facility] [id number] [place] [address] 48695- 2928 Jan, [facility] [address], [place] [address] Dec, [facility] [id number] [place] [address] 71632- 9028 Dec, [facility] [id number] [place] [address] 89003- 4349 Dec, [facility] [id number] [place] [address] 61201- 7956 Dec, [facility] [id number] [place] [address] 88980- 7268 Dec, [facility] [id number] [place] [address] 36600- 3823 13 Dec, 2017 Tension headache G44.209 [facility] [facility] [address] 01888- 0982 09 Dec, 2017 Elevated LFTs R79.89 ; Type 2 diabetes mellitus with hyperglycemia, without long-term current use of insulin E11.65 ; Abdominal bloating R14.0 and Other fatigue R53.83 [place] [address] 12853- 2095 08 Dec, 2017 Elevated ALT measurement R74.0 [facility] [address] 42834- 5061 Nov, Type 2 diabetes mellitus with hyperglycemia, without long- term current use of insulin E11.65 and Mixed hyperlipidemia E78.2 [place] [address] 24503- 9562 Oct, [facility] [address] 42820- 6854 Oct, Elevated ALT measurement R74.0 [facility] [address] 66556- 6301 Oct, [facility] [address] 16083- 5303 Oct, [facility] [address] 92916- 2615 Oct, Breast cancer screening Z12.31 [facility] [address] 87026- 7726 Sep, Tension headache G44.209 ; Cervical disc disorder at C5-C6 level with radiculopathy M50.122 ; Other fatigue R53.83 ; Breast pain, left N64.4 ; Vertigo R42 and Abnormal tympanic membrane of left ear H73.92 [facility] [id number] [place] [address] 94907 -2840 Sep, Screening breast examination Z12.39 [facility] [id number] [place] [address] 84344- 9387 Sep, [facility] [id number] [place] [address] 81795- 6422 Sep, Mixed hyperlipidemia E78.2 and Type 2 diabetes mellitus with hyperglycemia, without long-term current use of insulin E11.65 [place] [address] 74009- 1394 Jul, [facility] [address] 62519- 3201 Jul, Lumbago with sciatica, right side M54.41 and Other chronic pain G89.29 [facility] [id number] [place] [address] 68839- 3195 May, Type 2 diabetes mellitus with hyperglycemia, without long- term current use of insulin E11.65 ; Low back pain M54.5 ; Tobacco use Z72.0 ; Mixed hyperlipidemia E78.2 ; Lateral epicondylitis of right elbow M77.11 and 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 [facility] [id number] [place] [address] 43027- 9131 Apr, [facility] [id number] [place] [address] 78820- 6241 Apr, Low back pain M54.5 [facility] [id number] [place] [address] 43468- 2557 Apr, Pain in thoracic spine M54.6 [facility] [id number] [place] [address] 65303 -9359 March, Lumbosacral neuritis M54.17 [facility] [id number] [place] [address] 17333- 5476 March, Low back pain M54.5 [facility] [id number] [place] [address] 48843- 4032 March, [facility] [address], [place] [address] 4684 March, [facility] [id number] [place] [address] 71154- 2755 March, [facility] [id number] [place] [address] 80584- 3508 Feb, [facility] [id number] [place] [address] 08867- 6130 Feb, [facility] [id number] [place] [address] 67070- 5789 Feb, [facility] [id number] [place] [address] 04073- 0031 Feb, Low back pain M54.5 and Pain in thoracic spine M54.6 [facility] [facility] [id number] [place] [address] 44169- 4337 Jan, Panic attacks F41.0 ; Type 2 diabetes mellitus with hyperglycemia, without long-term current use of insulin E11.65 and Other chest pain R07.89 [facility] [id number] [place] [address] 31458- 8958 Jan, [facility] [id number] [place] [address] 97178- 2423 Jan, Type 2 diabetes mellitus with hyperglycemia, without long- term current use of insulin E11.65 [facility] [address] [place] [address] 32237- 3877 Jan, Pain in thoracic spine M54.6 [facility] [address] [place] [address] 48896- 7852 Jan, Type 2 diabetes mellitus with hyperglycemia, without long- term current use of insulin E11.65 and Elevated liver enzymes R74.8 [facility] [id number] [place] [address] 83562- 5947 Jan, [facility] [id number] [place] [address] 46066- 3742 Dec, Tobacco use Z72.0 ; Prediabetes R73.09 ; Elevated liver enzymes R74.8 ; Elevated fasting glucose R73.01 ; Elevated ALT measurement R74.0 ; Pain in thoracic spine M54.6 ; Panic attacks F41.0 and Type 2 diabetes mellitus with hyperglycemia, without long-term current use of insulin E11.65 [facility] [id number] [place] [address] 13360 -1604 Jun, Abdominal pain, right upper quadrant R10.11 [facility] [id number] [place] [address] 12937- 1471 Jun, [place] [id number] [place] [address] 00502- 6479 Jun, [place] [id number] [place] [address] 52904- 5413 Jun, [place] [address] 89347- 4713 May, Routine gynecological examination Z01.419 ; Encounter for Papanicolaou smear for cervical cancer screening Z12.4 ; Screening breast examination Z12.39 ; Vaginal discharge N89.8 and Candidal vaginitis B37.3 [facility] [id number] [place] [address] 26748- 3398 May, [place] [id number] [place] [address] 88081- 0914 May, Prediabetes R73.09 ; Elevated ALT measurement R74.0 ; Elevated fasting glucose R73.01 and Palpitations R00.2 [place] [id number] [place] [address] 43348- 1968 Feb, [place] [id number] [place] [address] 86634- 6390 Feb, [place] [id number] [place] [address] 10653- 4036 11 Apr, 2016 Generalized anxiety disorder F41.1 and Major depressive disorder, recurrent episode, moderate F33.1 [facility] [id number] [place] [address] 91893- 5711 Feb, Generalized anxiety disorder F41.1 ; Low back pain M54.5 and Insomnia G47.00 [facility] [id number] [place] [address] 42017- 4493 Jan, Elevated fasting glucose R73.01 and Elevated ALT measurement R74.0 [facility] [address] 91773- 0365 Jan, Generalized anxiety disorder F41.1 ; Low back pain M54.5 and Screening cholesterol level Z13.220 [facility] [address] 51039- 8463 04 Dec, 2015 Scoliosis M41.9 and Anxiety F41.9 [facility] [address] 99327- 3367 Feb, [facility] [id number] [place] [address] 23081- 7072 Feb, [facility] [address] 70066- 6148 Apr, [facility] [id number] [place] [address] 50778- 6093 March, [facility] [id number] [place] [address] 97001- 8264 March, [facility] [id number] [place] [address] 64538- 9284 March, [facility] [address] 68529- 0524 March, [facility] [id number] [place] [address] 13499- 8811 March, [facility] [id number] [place] [address] 07113- 3322 March, [facility] [place] [facility] [address] [id number] [place] [address]- 1983 March, [facility] [place] [facility] [address] [id number] [place] [address]- 3310 March, [facility] [place] [facility] [address] [id number] [place] [address]- 4424 Feb, [facility] [place] [facility] [address] [id number] [place] [address]- 1072 Feb, [facility] [place] [facility] [address] [id number] [place] [address]- 2131 Feb, [facility] [place] [facility] [address] [id number] [place] [address]- 3920 Feb, [facility] [place] [facility] [address] [id number] [place] [address]- 8028 Jan, [facility] [place] [facility] [address] [id number] [place] [address]- 5467 Jan, [facility] [place] [facility] [address] [id number] [place] [address]- 5611 Jan, [facility] [place] [facility] [address] [id number] [place] [address]- 0946 Jan, [facility] [place] [facility] [address] [id number] [place] [address]- 8330 Jan, [facility] [place] [facility] [address] [id number] [place] [address]- 6459 Jan, [facility] [place] [facility] [address] [id number] [place] [address]- 1909 Jan, [facility] [place] [facility] [address] [id number] [place] [address]- 6173 Dec, [facility] [place] [facility] [address] [id number] [place] 5368 Dec, [facility] [place] [facility] [address] [id number] [place] [address]- 5736 Dec, [facility] [address] [id number] [place] [address]- 2128 Dec, [facility] [place] [facility] [address] [id number] [place] [address]- 4105 Dec, [facility] [address] [id number] [place] [address]- 7677 Dec, [facility] [place] [facility] [address] [id number] [place] [address]- 8918 Nov, [facility] [address] [id number] [place] [address]- 7959 Nov, [facility] [place] [facility] [address] [id number] [place] [address]- 2133 Nov, [facility] [address] [id number] [place] [address]- 9630 Nov, [facility] [address] [id number] [place] [address]- 4129 Nov, [facility] [place] [facility] [address] [id number] [place] [address]- 2917 Nov, [facility] [address] [facility] [id number] [place] [address]- 5245 Nov, [facility] [address] [id number] [place] [address]- 5123 Oct, [facility] [place] [facility] [address] [id number] [place] [address]- 5178 Oct, [facility] [place] [facility] [address] [id number] [place] [address]- 7918 Oct, [facility] [place] [facility] [address] [id number] [place] [address]- 3229 Oct, [facility] [place] [facility] [address] [id number] [place] [address]- 7131 Sep, [facility] [place] [facility] [address] [id number] [place] [address]- 9671 Sep, [facility] [place] [facility] [address] [id number] [place] [address]- 3065 Sep, [facility] [place] [facility] [address] [id number] [place] [address]- 3155 Sep, [facility] [place] [facility] [address] [id number] [place] [address] 2548 Sep, [facility] [place] [facility] [address] [id number] [place] [address]- 9890 Sep, [facility] [place] [facility] [address] [id number] [place] [address]- 0349 Aug, [facility] [place] [facility] [address] [id number] [place] [address]- 8634 Aug, [facility] [place] [facility] [address] [id number] [place] [address]- 9660 Aug, [facility] [place] [facility] [address] [id number] [place] [address]- 0953 Aug, [facility] [place] [facility] [address] [id number], [place] [address]- 6432 Aug, [facility] [place] [facility] [address] [id number], [place] [address]- 5888 Aug, [facility] [place] [facility] [address] [id number], [place] [address]- 0386 Aug, [facility] [place] [facility] [address] [id number], [place] [address]- 5217 Jul, [facility] [place] [facility] [address] [id number], [place] [address]- 8214 Jul, [facility] [place] [facility] [address] [id number], [place] [address] 2544 Jun, [facility] [place] [facility] [address] [id number], [place] [address]- 2490 18 May, 2013 [facility] [address] [id number] [place] [address]- 6142 May, [facility] [place] [facility] [address] [id number] [place] [address]- 6046 10 May, 2013 [facility] [address] [id number] [place] [address]- 9223 Apr, [facility] [place] [facility] [address] [id number] [place] [address]- 8100 Apr, [facility] [address] [id number] [place] [address]- 4964 Apr, [facility] [address] [id number] [place] [address]- 6713 March, [facility] [address] [id number] [place] [address]- 8824 March, [facility] [address] [id number] [place] [address]- 7334 March, [facility] [address] [id number] [place] [address]- 7243 Feb, [facility] [place] [facility] [address] [id number] [place] [address]- 6617 Feb, [facility] [address] [id number] [place] [address]- 2190 15 Feb, 2013 [facility] [place] [facility] [address] [id number] [place] [address]- 3539 28 Jan, 2013 [facility] [place] [facility] [address] [id number] [place] [address]- 0600 19 Jan, 2013 [facility] [place] [facility] [address] [id number] [place] [address]- 5040 18 Jan, 2013 [facility] [place] [facility] [address] [id number] [place] [address]- 8826 15 Jan, 2013 [facility] [place] [facility] [address] [id number] [place] [address]- 7453 14 Jan, 2013 [facility] [address] [id number] [place] [address]- 8964 12 Jan, 2013 [facility] [place] [facility] [address] [id number] [place] [address]- 5701 05 Jan, 2013 [facility] [address] [id number] [place] [address]- 0975 28 Dec, 2012 [facility] [place] [facility] [address] [id number] [place] [address]- 9283 18 Dec, 2012 [facility] [address] [id number] [place] [address]- 3837 15 Dec, 2012 [facility] [address] [id number] [place] [address]- 1950 14 Dec, 2012 [facility] [address] [id number] [place] [address]- 3852 05 Dec, 2012 [facility] [address] [id number] [place] [address]- 2914 Nov, [facility] [address] [id number] [place] [address]- 8644 Nov, [facility] [address] [id number] [place] [address]- 1462 Nov, [facility] [address] [id number] [place] [address]- 7795 Nov, [facility] [place] [facility] [address] [id number] [place] [address]- 1059 Oct, [facility] [place] [facility] [address] [id number] [place] [address]- 9013 Oct, [facility] [place] [facility] [address] [id number] [place] [address]- 1561 Oct, [facility] [place] [facility] [address] [id number], [place] [address]- 6656 18 Oct, 2012 [facility] [place] [facility] [address] [id number] [place] [address]- 1555 Oct, [facility] [place] [facility] [address] [id number] [place] [address]- 6505 Oct, [facility] [place] [facility] [address] [facility] [id number] [place] [address]- 7629 Oct, [facility] [place] [facility] [address] [id number] [place] [address]- 8356 Oct, [facility] [place] [facility] [address] [id number] [place] 1729 Oct, [facility] [place] [facility] [address] [id number] [place] 4713 Sep, [facility] [place] [facility] [address] [id number] [place] [address]- 0360 Sep, [facility] [place] [facility] [address] [id number], [place] [address]- 6625 Sep, [facility] [place] [facility] [address] [id number] [place] [address]- 6528 Sep, [facility] [place] [facility] [address] [id number] [place] [address]- 4799 Sep, [facility] [place] [facility] [address] [id number], [place] [address]- 4950 Aug, [facility] [place] [facility] [address] [id number], [place] [address]- 0636 Aug, [facility] [place] [facility] [address] [id number] [place] [address]- 0108 Aug, [facility] [place] [facility] [address] [facility] [id number][place]- 0531 Aug, [facility] [place] [facility] [address] [facility] [id number][place]80[place] 7938 Aug, [facility] [place] [facility] [address] [id number] [place] [address]- 1983 11 Aug, 2012 [facility] [place] [facility] [address] [id number] [place] [address]- 9595 11 Aug, 2012 [facility] [place] [facility] [address] [id number] [place] [address]- 0086 10 Aug, 2012 [facility] [address] [id number] [place] [address]- 4896 10 Aug, 2012 [facility] [place] [facility] [address] [id number] [place] [address] 09 Aug, 2012 [facility] [place] [facility] [address] [id number] [place] [address] 05 Aug, 2012 [facility] [place] [facility] [address] [id number] [place] [address] 04 Aug, 2012 [facility] [place] [facility] [address] [id number] [place] [address] 17 Jul, 2012 [facility] [place] [facility] [address] [id number] [place] [address] 13 Jul, 2012 [facility] [place] [facility] [address] [id number] [place] [address]- [address] 13 Jul, 2012 [facility] [place] [facility] [address] [id number] [place] [address] 11 Jul, 2012 [facility] [place] [facility] [address] [id number] [place] [address] 16[address] 10 Jul, 2012 [facility] [place] [facility] [address] [id number] [place] [address] 89[address] 08 Jul, 2012 [facility] [place] [facility] [address] [id number] [place] [address] 68[address] 16 Jun, 2012 [facility] [place] [facility] [address] [id number] [place] [address] 5969 14 Jun, 2012 [facility] [place] [facility] [address] [id number] [place] [address] 17 May, 2012 [facility] [place] [facility] [address] [id number] [place] [address] 7626 17 May, 2012 [facility] [place] [facility] [address] [id number] [place] [address]- [address] May, [facility] [place] [facility] [address] [id number] [place] [address] May, [facility] [place] [facility] [address] [id number] [place] [address] Apr, [facility] [place] [facility] [address] [id number] [place] [address] Apr, [facility] [place] [facility] [address] [id number] [place] [address] 44[address] Apr, [facility] [place] [facility] [address] [id number] [place] [address] Apr, [facility] [place] [facility] [address] [id number] [place] [address] 8380 Apr, [facility] [place] [facility] [address] [id number] [place] [address] March, [facility] [place] [facility] [address] [id number] [place] [address]- [address] March, [facility] [place] [facility] [address] [id number] [place] [address] March, [facility] [place] [facility] [address] [id number] [place] [address] March, [facility] [place] [facility] [address] [id number] [place] [address] March, [facility] [place] [facility] [address] [id number] [place] [address] 5468 24 Feb, 2012 [facility] [place] [facility] [address] [id number] [place] [address] Feb, [facility] [place] [facility] [address] [id number] [place] [address] Jan, [facility] [address] [id number] [place] [address]- [address] Jan, [facility] [place] [facility] [address] [id number] [place] [address] Jan, [facility] [place] [facility] [address] [id number] [place] [address] 1065 Dec, [facility] [place] [facility] [address] [id number] [place] [address] Nov, [facility] [place] [facility] [address] [id number] [place] [address] Nov, [facility] [place] [facility] [address] [id number] [place] [address] 76[address] Nov, [facility] [address] [facility] [id number] [place] [address] Nov, [facility] [place] [facility] [address] [id number] [place] [address] Oct, [facility] [place] [facility] [address] [id number] [place] [address] Oct, [facility] [place] [facility] [address] [facility] [id number] [place] [address] Sep, [facility] [place] [facility] [address] [id number] [place] [address] Sep, [facility] [place] [facility] [address] [id number] [place] [address] Sep, [facility] [place] [facility] [address] [id number] [place] [address] Sep, [facility] [place] [facility] [address] [facility] [id number] [place] [address] 08 Sep, 2011 [facility] [place] [facility] [address] [facility] [id number] [place] [address]- [address] 16 Jun, 2011 [facility] [id number], [place] [address] Dec, [facility] [id number], [place] [address] Sep, [facility] [id number], [place] [address] Aug, [facility] [id number], [place] [address] Aug, [facility] [address] [facility] [id number] [address] Aug, [facility] [id number] [place] [address] Aug, [facility] [id number], [place] [address] Aug, [facility] [id number], [place] [address] Jun, [facility] [id number], [place] [address] Feb, [facility] [id number], [place] [address] Sep, [facility] [id number], [place] [address] Aug, [facility] [id number], [place] [address] Apr, [facility] [id number] [address] March, IMMUNIZATIONS No Known Immunizations SOCIAL HISTORY Never Assessed REASON FOR VISIT Refill Requests PLAN OF CARE VITAL SIGNS MEDICATIONS Medication Instructions Dosage Frequency Start Date End Date Duration Status Metformin HCl 500 mg Orally Twice a day 1 tablet with meals 12h 30 days Active Rosuvastatin Calcium 20 mg Orally Once a day 1 tablet 24h March, 30 days Active RESULTS No Results PROCEDURES No Known procedures INSTRUCTIONS MEDICATIONS ADMINISTERED No Known Medications MEDICAL (GENERAL) HISTORY Type Description Date Medical History Scoliosis Medical History Bipolar Surgical History right hip replacement Surgical History c-sections x4 Hospitalization History Pneumonia 2012
--- OUTSIDE RECORDS SUMMARY | 2018-06-10 19:54 | XMS REPORT ---
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122 Active 179004929 Problem Tension headache G44.209 Active 627730823 Problem Fibromyalgia M79.7 Active 965339429 Problem Calculus of gallbladder without cholecystitis without obstruction K80.20 Active 280237204 Problem Chest pain, unspecified type R07.9 Active 29263575 Problem Major depressive disorder, recurrent episode, moderate F33.1 Active 869761129 Problem Insomnia G47.00 Active 753343506 Problem Generalized anxiety disorder F41.1 Active 16024555 Problem Tobacco use Z72.0 Active 869639805 Problem Low back pain M54.5 Active 169770651 Problem Type 2 diabetes mellitus with hyperglycemia, without long-term current use of insulin E11.65 Active 14218335 ALLERGIES No Information ENCOUNTERS Encounter Location Date Diagnosis [facility] [id number] [address] Jun, [facility] [id number] [address] 9[address] May, [facility] [id number] [place] [address] 99058- 1145 Apr, Type 2 diabetes mellitus with hyperglycemia, without long- term current use of insulin E11.65 [place] [address] [address]392- 8210 March, Anxiety state, unspecified F41.[address] [address]- 9627 Feb, [place] [address] 6[address]12- 5848 Feb, Medicare annual wellness visit, initial Z00.00 ; Type 2 diabetes mellitus with hyperglycemia, without long-term current use of insulin E11.65 ; Major depressive disorder, recurrent episode, moderate F33.1 ; Mixed hyperlipidemia E78.2 ; Fibromyalgia M79.7 ; Retinitis pigmentosa H35.52 ; Panic attacks F41.0 ; Facial skin lesion L98.9 ; Fullness of neck R22.1 and Screening for colon cancer Z12.[address] [address]- 4495 Feb, Type 2 diabetes mellitus with hyperglycemia, without long- term current use of insulin E11.65 [place] [id number] [place] [address] 84338- 6621 Jan, [address] [address]- 5548 Jan, Asymptomatic microscopic hematuria R31.21 ; Chest pain, unspecified type R07.9 and Generalized anxiety disorder F41.1 [place] [id number] [place] [address] 59921- [address]153 Jan, [address] 85474- 8906 Jan, [facility] [id number] [place] [address] 29530 -5274 Dec, [place] [address] 03432- 9060 Dec, [facility] [id number] [place] [address] 44323- 5177 Dec, [facility] [id number] [place] [address] 72035- 7928 Dec, [facility] [id number] [place] [address] 85612- 8102 Dec, [place] [address] 75508- 4440 Dec, Tension headache G44.209 [place] [id number] [place] [address] 88356- 1691 Dec, Elevated LFTs R79.89 ; Type 2 diabetes mellitus with hyperglycemia, without long-term current use of insulin E11.65 ; Abdominal bloating R14.0 and Other fatigue R53.83 [place] [id number] [place] [address] 14661- 5973 Dec, Elevated ALT measurement R74.0 [place] [id number] [place] [address] 76462- 1775 Nov, Type 2 diabetes mellitus with hyperglycemia, without long- term current use of insulin E11.65 and Mixed hyperlipidemia E78.2 [place] [id number] [place] [address] 05198- 8498 Oct, [place] [id number] [place] [address] 30524- 5537 Oct, Elevated ALT measurement R74.0 [place] [id number] [place] [address] 04032- 5067 Oct, [place] [id number] [place] [address] 96641- 3845 Oct, [place] [id number] [place] [address] 35754- 9563 Oct, Breast cancer screening Z12.31 [place] [address] [place] [address]- 3621 Sep, Tension headache G44.209 ; Cervical disc disorder at C5-C6 level with radiculopathy M50.122 ; Other fatigue R53.83 ; Breast pain, left N64.4 ; Vertigo R42 and Abnormal tympanic membrane of left ear H73.92 [facility] [place] [id number] [place] [address] 47512 -4076 Sep, Screening breast examination Z12.39 [place] [address] 17394- 8894 Sep, [place] [address] 12919- 6255 Sep, Mixed hyperlipidemia E78.2 and Type 2 diabetes mellitus with hyperglycemia, without long-term current use of insulin E11.65 [place] [address] 84400- 0357 Jul, [place] [address] 91781- 4962 Jul, Lumbago with sciatica, right side M54.41 and Other chronic pain G89.29 [place] [address] 71556- 7911 May, Type 2 diabetes mellitus with hyperglycemia, without long- term current use of insulin E11.65 ; Low back pain M54.5 ; Tobacco use Z72.0 ; Mixed hyperlipidemia E78.2 ; Lateral epicondylitis of right elbow M77.11 and 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 [place] [id number] [place] [address] 93369- 3694 Apr, [place] [address] 56027- 4352 Apr, Low back pain M54.5 [place] [id number] [place] [address] 79724- 5533 Apr, Pain in thoracic spine M54.6 [facility] [address], [place] [address] March, Lumbosacral neuritis M54.17 [facility] [id number] [place] [address] 06032- 5158 March, Low back pain M54.5 [facility] [id number] [place] [address] 57933- 5736 March, [facility] [id number] [place] [address] 81787- 9794 March, [facility] [id number] [place] [address] 80032- 4395 March, [facility] [id number] [place] [address] 99070- 0224 Feb, [facility] [id number] [place] [address] 11597- 7484 Feb, [facility] [id number] [place] [address] 05406- 1131 Feb, [facility] [id number] [place] [address] 51296- 0245 Feb, Low back pain M54.5 and Pain in thoracic spine M54.6 [facility] [id number] [place] [address] 58786- 9040 Jan, Panic attacks F41.0 ; Type 2 diabetes mellitus with hyperglycemia, without long-term current use of insulin E11.65 and Other chest pain R07.89 [facility] [address], [place] [address]- 5727 Jan, [facility] [id number] [place] [address] 02575- 1669 Jan, Type 2 diabetes mellitus with hyperglycemia, without long- term current use of insulin E11.65 [facility] [id number] [place] [address] 90961- 2233 Jan, Pain in thoracic spine M54.6 [facility] [id number] [place] [address] 02725- 0796 Jan, Type 2 diabetes mellitus with hyperglycemia, without long- term current use of insulin E11.65 and Elevated liver enzymes R74.8 [place] [id number] [place] [address] 87716- 2432 Jan, [place] [id number] [place] [address] 98156- 7786 Dec, Tobacco use Z72.0 ; Prediabetes R73.09 ; Elevated liver enzymes R74.8 ; Elevated fasting glucose R73.01 ; Elevated ALT measurement R74.0 ; Pain in thoracic spine M54.6 ; Panic attacks F41.0 and Type 2 diabetes mellitus with hyperglycemia, without long-term current use of insulin E11.65 [facility] [id number] [place] [address] 63806 -0343 Jun, Abdominal pain, right upper quadrant R10.11 [place] [id number] [place] [address] 54364- 6166 Jun, [place] [id number] [place] [address] 66049- 2273 Jun, [place] [id number] [place] [address] 23657- 8735 Jun, [place] [id number] [place] [address] 97932- 1498 May, Routine gynecological examination Z01.419 ; Encounter for Papanicolaou smear for cervical cancer screening Z12.4 ; Screening breast examination Z12.39 ; Vaginal discharge N89.8 and Candidal vaginitis B37.3 [place] [id number] [place] [address] 62428- 1048 May, [place] [id number] [place] [address] 28577- 6854 May, Prediabetes R73.09 ; Elevated ALT measurement R74.0 ; Elevated fasting glucose R73.01 and Palpitations R00.2 [facility] [id number] [place] [address] 79973- 7788 Feb, [facility] [id number] [place] [address] 05782- 4649 Feb, [facility] [id number] [place] [address] 95106- 0696 Feb, Generalized anxiety disorder F41.1 and Major depressive disorder, recurrent episode, moderate F33.1 [place] [id number] [place] [address] 53897- 3725 Feb, Generalized anxiety disorder F41.1 ; Low back pain M54.5 and Insomnia G47.00 [place] [id number] [place] [address] 48408- 9926 Jan, Elevated fasting glucose R73.01 and Elevated ALT measurement R74.0 [place] [id number] [place] [address] 52313- 9131 Jan, Generalized anxiety disorder F41.1 ; Low back pain M54.5 and Screening cholesterol level Z13.220 [place] [id number] [place] [address] 95868- 6313 Dec, Scoliosis M41.9 and Anxiety F41.9 [place] [id number] [place] [address] 68053- 9915 Feb, [place] [id number] [place] [address] 39954- 3045 Feb, [place] [id number] [place] [address] 34983- 8306 Apr, [place] [id number] [place] [address] 38949- 6331 March, [facility] [id number] [place] [address] 27968- 2829 March, [place] [id number] [place] [address]- 4418 March, [facility] [address] [id number] [place] [address]- 7748 March, [facility] [address] [id number] [place] [address]- 9958 March, [facility] [address] [id number] [place] [address]- 3343 March, [facility] [address] [id number] [place] [address]- 9858 March, [facility] [address] [id number] [place] [address]- 2897 March, [facility] [address] [id number] [place] [address]- 4535 Feb, [facility] [address] [id number] [place] [address]- 9800 Feb, [facility] [address] [id number] [place] [address]- 4393 Feb, [facility] [address] [id number] [place] [address]- 4097 Feb, [facility] [address] [id number] [place] [address]- 5298 Jan, [facility] [place] [facility] [address] [id number] [place] [address]- 6466 Jan, [facility] [place] [facility] [address] [id number] [place] [address]- 8603 Jan, [facility] [place] [facility] [address] [id number] [place] [address]- 8974 Jan, [facility] [place] [facility] [address] [id number] [place] [address]- 0679 Jan, [facility] [place] [facility] [address] [id number] [place] [address]- 1081 Jan, [facility] [place] [facility] [address] [id number] [place] [address]- 5482 Jan, [facility] [place] [facility] [address] [id number] [place] [address]- 1805 Dec, [facility] [place] [facility] [address] [id number] [place] [address]- 8853 Dec, [facility] [place] [facility] [address] [id number] [place] [address]- 5651 Dec, [facility] [place] [facility] [address] [id number] [place] [address]- 4459 Dec, [facility] [place] [facility] [address] [id number] [place] [address]- 3044 Dec, [facility] [place] [facility] [address] [id number] [place] [address]- 5693 Dec, [facility] [place] [facility] [address] [id number] [place] [address]- 8483 Nov, [facility] [place] [facility] [address] [id number] [place] [address]- 8023 Nov, [facility] [place] [facility] [address] [id number] [place] [address]- 2642 Nov, [facility] [place] [facility] [address] [id number] [place] [address]- 0138 Nov, [facility] [place] [facility] [address] [id number] [address]- 4140 Nov, [facility] [place] [facility] [address] [id number] [place] [address]- 8651 Nov, [facility] [place] [facility] [address] [id number] [place] [address]- 7865 Nov, [facility] [place] [facility] [address] [id number] [place] [address]- 9617 Oct, [facility] [place] [facility] [address] [id number] [place] [address]- 1203 Oct, [facility] [place] [facility] [address] [id number] [place] [address]- 1377 Oct, [facility] [place] [facility] [address] [id number] [place]- 8486 Oct, [facility] [place] [facility] [address] [id number] [place] [address]- 2297 Sep, [facility] [place] [facility] [address] [id number] [place] [address]- 0537 Sep, [facility] [place] [facility] [address] [id number] [place] 5419 Sep, [facility] [place] [facility] [address] [id number] [place] [address]- 5386 Sep, [facility] [place] [facility] [address] [facility] [id number] [place] 1600 Sep, [facility] [place] [facility] [address] [id number] [place] [address]- 8437 Sep, [facility] [place] [facility] [address] [id number] [place] [address]- 4179 Aug, [facility] [place] [facility] [address] [facility] [id number] [place] [address]- 9744 Aug, [facility] [place] [facility] [address] [id number] [place] [address]- 2531 Aug, [facility] [place] [facility] [address] [id number] [address]- 6630 Aug, [facility] [place] [facility] [address] [id number] [place] [address]- 1199 Aug, [facility] [place] [facility] [address] [facility] [id number] [place] [address]- 6326 Aug, [facility] [place] [facility] [address] [id number][place] [address]- 7028 Aug, [facility] [place] [facility] [address] [id number] [place] [address]- 4834 Jul, [facility] [address] [id number] [place] [address]- 1303 Jul, [facility] [address] [id number] [place] [address]- 1781 Jun, [facility] [address] [id number] [place] [address]- 5825 May, [facility] [address] [id number] [place] [address]- 4472 May, [facility] [address] [id number] [place] [address]- 1675 May, [facility] [address] [id number] [place] [address]- 4296 Apr, [facility] [address] [id number] [place] [address]- 2572 Apr, [facility] [address] [id number] [place] [address]- 8758 Apr, [facility] [address] [id number] [place] [address]- 8299 March, [facility] [address] [id number] [place] [address]- 8752 March, [facility] [address] [id number] [place] [address]- 0357 March, [facility] [address] [id number] [place] [address]- 7054 Feb, [facility] [place] [facility] [address] [id number] [place] [address]- 9524 Feb, [facility] [address] [id number] [place] [address]- 1991 15 Feb, 2013 [facility] [address] [id number] [place] [address]- 8541 28 Jan, 2013 [facility] [address] [id number] [place] [address]- 5770 19 Jan, 2013 [facility] [address] [id number] [place] [address]- 1476 18 Jan, 2013 [facility] [address] [facility] [id number] [place] [address]- 3969 15 Jan, 2013 [facility] [address] [id number] [place] [address]- 0192 14 Jan, 2013 [facility] [address] [id number] [place] [address]- 5077 12 Jan, 2013 [facility] [address] [facility] [id number] [place] [address]- 8971 05 Jan, 2013 [facility] [address] [facility] [id number] [place] [address]- 2540 28 Dec, 2012 [facility] [address] [id number] [place] [address]- 1010 18 Dec, 2012 [facility] [address] [facility] [id number] [place] [address]- 3943 15 Dec, 2012 [facility] [address] [facility] [id number] [place] [address]- 9650 14 Dec, 2012 [facility] [address] [facility] [id number] [place] [address]- 5246 05 Dec, 2012 [facility] [place] [facility] [address] [id number][place] [address]- 8657 Nov, [facility] [place] [facility] [address] [id number] [place] [address]- 3761 Nov, [facility] [place] [facility] [address] [id number], [place] [address] 2546 Nov, [facility] [place] [facility] [address] [facility] [id number], [place] [address]- 1306 Nov, [facility] [place] [facility] [address] [id number] [place] [address]- 4576 31 Oct, 2012 [facility] [place] [facility] [address] [id number] [place] [address]- 1736 Oct, [facility] [place] [facility] [address] [id number] [place] 7846 Oct, [facility] [place] [facility] [address] [id number] [place] [address]- 6096 Oct, [facility] [place] [facility] [address] [id number] [place] [address]- 8753 Oct, [facility] [place] [facility] [address] [id number] [place] [address]- 3496 Oct, [facility] [place] [facility] [address] [id number] [place] [address]- 5154 Oct, [facility] [place] [facility] [address] [id number] [place] [address]- 6735 Oct, [facility] [place] [facility] [address] [id number] [place] [address]- 6425 Oct, [facility] [place] [facility] [address] [id number] [place] [address]- 8000 Sep, [facility] [place] [facility] [address] [id number] [place] [address]- 5344 16 Sep, 2012 [facility] [place] [facility] [address] [id number] [place] [address]- 8194 Sep, [facility] [place] [facility] [address] [id number] [place] [address] Sep, [facility] [place] [facility] [address] [id number] [place] [address] Sep, [facility] [place] [facility] [address] [id number] [place] [address] Aug, [facility] [place] [facility] [address] [id number] [place] [address] Aug, 2012 [facility] [place] [facility] [address] [id number] [place] [address] 17 Aug, 2012 [facility] [place] [facility] [address] [id number] [place] [address] 17 Aug, 2012 [facility] [place] [facility] [address] [id number] [place] [address] 16 Aug, 2012 [facility] [place] [facility] [address] [id number] [place] [address] 11 Aug, 2012 [facility] [place] [facility] [address] [id number] [place] [address] 11 Aug, 2012 [facility] [place] [facility] [address] [id number] [place] [address] 10 Aug, 2012 [facility] [place] [facility] [address] [id number] [place] [address] 10 Aug, 2012 [facility] [place] [facility] [address] [id number], [place] [address] 09 Aug, 2012 [facility] [place] [facility] [address] [id number], [place] [address] 05 Aug, 2012 [facility] [place] [facility] [address] [id number][place] [address] 04 Aug, 2012 [facility] [place] [facility] [address] [id number], [place] [address] 17 Sep, 2011 [facility] [place] [facility] [address] [id number], [place] [address] 13 Sep, 2011 [facility] [place] [facility] [address] [id number][place] [address] 13 Sep, 2011 [facility] [place] [facility] [address] [id number], [place] [address] 11 Sep, 2011 [facility] [place] [facility] [address] [id number], [place] [address] 10 Jul, 2011 [facility] [place] [facility] [address] [id number] [place] [address] 08 Jul, 2012 [facility] [place] [facility] [address] [id number] [place] [address]- [address] 16 Jun, 2012 [facility] [place] [facility] [address] [id number] [place] [address] 14 Jun, 2012 [facility] [place] [facility] [address] [id number] [place] [address] 17 May, 2012 [facility] [place] [facility] [address] [id number] [place] [address] 17 May, 2012 [facility] [place] [facility] [address] [id number] [place] [address] May, [facility] [place] [facility] [address] [id number] [place] [address] May, [facility] [address] [id number] [place] [address] Apr, [facility] [place] [facility] [address] [id number] [place] [address] Apr, [facility] [place] [facility] [address] [id number] [place] [address] Apr, [facility] [place] [facility] [address] [id number] [place] [address] Apr, [facility] [place] [facility] [address] [id number] [place] [address] Apr, [facility] [place] [facility] [address] [id number] [place] [address] March, [facility] [place] [facility] [address] [id number] [place] [address] March, [facility] [place] [facility] [address] [id number] [place] [address] March, [facility] [place] [facility] [address] [id number] [place] [address] March, [facility] [place] [facility] [address] [id number] [place] [address] March, [facility] [address] [id number] [place] [address] Feb, [facility] [address] [address] [id number] [place] [address] Feb, [facility] [address] [id number] [place] [address] Jan, [facility] [address] [id number] [place] [address] Jan, [facility] [address] [id number] [place] [address] Jan, [facility] [address] [id number] [place] [address] Dec, [facility] [address] [id number] [place] [address] Nov, [facility] [address] [id number] [place] [address] Nov, [facility] [address] [id number] [place] [address] Nov, [facility] [address] [id number] [place] [address] Nov, [facility] [address] [id number] [place] [address] Oct, [facility] [place] [facility] [address] [id number] [place] [address] Oct, [facility] [place] [facility] [address] [id number] [place] [address] Sep, [facility] [place] [facility] [address] [id number] [place] [address] Sep, [facility] [address] [id number] [address] 10 Sep, 2011 [facility] [place] [facility] [address] [id number] [place] [address] 10 Sep, 2011 [facility] [place] [facility] [address] [id number] [place] [address] 08 Sep, 2011 [facility] [place] [facility] [address] [id number] [place] [address] 16 Jun, 2011 [facility] [place] [facility] [address] [id number] [place] [address] 15 Dec, 2010 [facility] [place] [facility] [address] [id number] [place] [address] Sep, [facility] [place] [facility] [address] [id number] [place] [address] 29 Aug, 2010 [facility] [place] [facility] [address] [facility] [id number] [place] [address] Aug, [facility] [place] [facility] [address] [id number] [place] [address] Aug, [facility] [place] [facility] [address] [facility] [id number] [place] [address] Aug, [facility] [place] [facility] [address] [facility] [id number] [place] [address] Aug, [facility] [place] [facility] [address] [facility] [id number] [place] [address] 17 Jun, 2010 [facility] [place] [facility] [address] [id number] [place] [address] 13 Feb, 2010 [facility] [place] [facility] [address] [id number] [place] [address] 06 Sep, 2009 [facility] [place] [facility] [address] [facility] [id number] [place] [address] 11 Aug, 2009 [facility] [place] [facility] [address] [facility] [id number] [place] [address] 18 Apr, 2009 [facility] [place] [facility] [address] [facility] [id number] [place] [address] March, IMMUNIZATIONS No Known Immunizations SOCIAL HISTORY Never Assessed REASON FOR VISIT Patient Call PLAN OF CARE VITAL SIGNS MEDICATIONS Unknown Medications RESULTS No Results PROCEDURES No Known procedures INSTRUCTIONS MEDICATIONS ADMINISTERED No Known Medications MEDICAL (GENERAL) HISTORY Type Description Date Medical History Scoliosis Medical History Bipolar Surgical History right hip replacement Surgical History c-sections x4 Hospitalization History Pneumonia 2012
--- OUTSIDE RECORDS SUMMARY | 2018-06-10 19:54 | XMS REPORT ---
Author Author ASHOK ROMY [facility] Address [address] [place] [address] Care Team Providers Care Log Skidder Name Role Phone PHILLIP PULIDOHANY Unavailable PROBLEMS Type Condition ICD9-CM Code ETV63-ND Code Onset Dates Condition Status SNOMED Code Problem Panic attacks F41.0 Active 271290474 Problem Mixed hyperlipidemia E78.2 Active 662812871 Problem 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 Active 12077273 Problem Anxiety state, unspecified F41.1 Active 160623697 Problem Retinitis pigmentosa H35.52 Active 98714986 Problem Other chronic pain G89.29 Active 95250758 Problem Lumbago with sciatica, right side M54.41 Active 284724164 Problem Cervical disc disorder at C5-C6 level with radiculopathy M50.122 Active 018827526 Problem Tension headache G44.209 Active 475673768 Problem Fibromyalgia M79.7 Active 235599949 Problem Calculus of gallbladder without cholecystitis without obstruction K80.20 Active 989439183 Problem Chest pain, unspecified type R07.9 Active 37057849 Problem Major depressive disorder, recurrent episode, moderate F33.1 Active 822842739 Problem Insomnia G47.00 Active 169349890 Problem Generalized anxiety disorder F41.1 Active 65125170 Problem Tobacco use Z72.0 Active 456816638 Problem Low back pain M54.5 Active 590582257 Problem Type 2 diabetes mellitus with hyperglycemia, without long-term current use of insulin E11.65 Active 74695597 ALLERGIES No Information ENCOUNTERS Encounter Location Date Diagnosis [facility] [id number] [address] Jun, [facility] [id number] [address] May, [facility] [id number] [place] [address] 36623- 8110 Apr, Type 2 diabetes mellitus with hyperglycemia, without long- term current use of insulin E11.65 [address] [address] [address] March, Anxiety state, unspecified F41.[address] [address]- 1889 Feb, [place] [address] [address]99[address]- 9710 Feb, Medicare annual wellness visit, initial Z00.00 ; Type 2 diabetes mellitus with hyperglycemia, without long-term current use of insulin E11.65 ; Major depressive disorder, recurrent episode, moderate F33.1 ; Mixed hyperlipidemia E78.2 ; Fibromyalgia M79.7 ; Retinitis pigmentosa H35.52 ; Panic attacks F41.0 ; Facial skin lesion L98.9 ; Fullness of neck R22.1 and Screening for colon cancer Z12.[address] [address]- [address]322 Feb, Type 2 diabetes mellitus with hyperglycemia, without long- term current use of insulin E11.65 [address] [id number] [place] [address] 16418- 1522 Jan, [address] [address]- 6353 Jan, Asymptomatic microscopic hematuria R31.21 ; Chest pain, unspecified type R07.9 and Generalized anxiety disorder F41.1 [place] [id number] [place] [address] 95396- 8267 Jan, [address] [address]80- 4999 Jan, [facility] [id number] [place] [address] 13717 -1307 Dec, [place] [address] 63238- 7434 Dec, [facility] [id number] [place] [address] 97541- 8093 Dec, [facility] [id number] [place] [address] 99151- 5694 Dec, [facility] [id number] [place] [address] 28911- 4643 Dec, [place] [address] 35326- 0991 Dec, Tension headache G44.209 [place] [id number] [place] [address] 82653- 1559 Dec, Elevated LFTs R79.89 ; Type 2 diabetes mellitus with hyperglycemia, without long-term current use of insulin E11.65 ; Abdominal bloating R14.0 and Other fatigue R53.83 [place] [id number] [place] [address] 95400- 2379 Dec, Elevated ALT measurement R74.0 [place] [id number] [place] [address] 27864- 2025 Nov, Type 2 diabetes mellitus with hyperglycemia, without long- term current use of insulin E11.65 and Mixed hyperlipidemia E78.2 [place] [id number] [place] [address] 64242- 7523 Oct, [place] [id number] [place] [address] 67786- 6923 Oct, Elevated ALT measurement R74.0 [place] [id number] [place] [address] 08544- 7340 Oct, [place] [id number] [place] [address] 51756- 3634 Oct, [place] [id number] [place] [address] 18244- 8571 Oct, Breast cancer screening Z12.31 [place] [address] [address] [place] [address]- 7802 Sep, Tension headache G44.209 ; Cervical disc disorder at C5-C6 level with radiculopathy M50.122 ; Other fatigue R53.83 ; Breast pain, left N64.4 ; Vertigo R42 and Abnormal tympanic membrane of left ear H73.92 [facility] [place] [id number] [place] [address] 34081 -3466 Sep, Screening breast examination Z12.39 [address] [address] 78489- 9645 Sep, [place] [address] 44705- 3232 Sep, Mixed hyperlipidemia E78.2 and Type 2 diabetes mellitus with hyperglycemia, without long-term current use of insulin E11.65 [place] [address] 46264- 4865 Jul, [place] [address] 92197- 6624 Jul, Lumbago with sciatica, right side M54.41 and Other chronic pain G89.29 [place] [address] 65475- 3964 May, Type 2 diabetes mellitus with hyperglycemia, without long- term current use of insulin E11.65 ; Low back pain M54.5 ; Tobacco use Z72.0 ; Mixed hyperlipidemia E78.2 ; Lateral epicondylitis of right elbow M77.11 and 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 [place] [id number] [place] [address] 67008- 7600 Apr, [place] [address] 54426- 2019 Apr, Low back pain M54.5 [place] [id number] [place] [address] 10604- 1296 Apr, Pain in thoracic spine M54.6 [facility] [address] [address] March, Lumbosacral neuritis M54.17 [facility] [id number] [place] [address] 35276- 8678 March, Low back pain M54.5 [facility] [id number] [place] [address] 27745- 3190 March, [facility] [id number] [place] [address] 76152- 9714 March, [facility] [id number] [place] [address] 17531- 0310 March, [facility] [id number] [place] [address] 84470- 5109 Feb, [facility] [id number] [place] [address] 00276- 7933 Feb, [facility] [id number] [place] [address] 40298- 3950 Feb, [facility] [id number] [place] [address] 03218- 2030 Feb, Low back pain M54.5 and Pain in thoracic spine M54.6 [facility] [id number] [place] [address] 36505- 3213 Jan, Panic attacks F41.0 ; Type 2 diabetes mellitus with hyperglycemia, without long-term current use of insulin E11.65 and Other chest pain R07.89 [facility] [address] [address] 5967 Jan, [facility] [id number] [place] [address] 03300- 6610 Jan, Type 2 diabetes mellitus with hyperglycemia, without long- term current use of insulin E11.65 [facility] [address] [place] [address] 86812- 4790 Jan, Pain in thoracic spine M54.6 [facility] [id number] [place] [address] 63204- 3420 Jan, Type 2 diabetes mellitus with hyperglycemia, without long- term current use of insulin E11.65 and Elevated liver enzymes R74.8 [place] [id number] [place] [address] 77872- 8690 Jan, [place] [id number] [place] [address] 43686- 3405 Dec, Tobacco use Z72.0 ; Prediabetes R73.09 ; Elevated liver enzymes R74.8 ; Elevated fasting glucose R73.01 ; Elevated ALT measurement R74.0 ; Pain in thoracic spine M54.6 ; Panic attacks F41.0 and Type 2 diabetes mellitus with hyperglycemia, without long-term current use of insulin E11.65 [facility] [address] [place] [address] 73156 -6931 Jun, Abdominal pain, right upper quadrant R10.11 [address] [id number] [place] [address] 60456- 3432 Jun, [place] [id number] [place] [address] 61664- 1857 Jun, [place] [id number] [place] [address] 83514- 2601 Jun, [place] [id number] [place] [address] 93511- 1544 May, Routine gynecological examination Z01.419 ; Encounter for Papanicolaou smear for cervical cancer screening Z12.4 ; Screening breast examination Z12.39 ; Vaginal discharge N89.8 and Candidal vaginitis B37.3 [place] [id number] [place] [address] 79193- 9760 May, [place] [id number] [place] [address] 51214- 8059 May, Prediabetes R73.09 ; Elevated ALT measurement R74.0 ; Elevated fasting glucose R73.01 and Palpitations R00.2 [facility] [id number] [place] [address] 46993- 2241 Feb, [facility] [id number] [place] [address] 90693- 4141 Feb, [facility] [id number] [place] [address] 40737- 5618 Feb, Generalized anxiety disorder F41.1 and Major depressive disorder, recurrent episode, moderate F33.1 [address] [id number] [place] [address] 56956- 5960 Feb, Generalized anxiety disorder F41.1 ; Low back pain M54.5 and Insomnia G47.00 [place] [id number] [place] [address] 19235- 9625 Jan, Elevated fasting glucose R73.01 and Elevated ALT measurement R74.0 [address] [id number] [place] [address] 62987- 5266 Jan, Generalized anxiety disorder F41.1 ; Low back pain M54.5 and Screening cholesterol level Z13.220 [place] [id number] [place] [address] 73592- 4713 Dec, Scoliosis M41.9 and Anxiety F41.9 [place] [id number] [place] [address] 76001- 1270 Feb, [place] [id number] [place] [address] 93793- 4234 Feb, [place] [id number] [place] [address] 73249- 2774 Apr, [place] [id number] [place] [address] 90255- 9422 March, [facility] [id number] [place] [address] 79368- 7423 March, [place] [address] [id number] [place] [address]- 1077 March, [facility] [address] [id number] [place] [address]- 8050 March, [facility] [address] [id number] [place] [address]- 7302 March, [facility] [address] [id number] [place] [address]- 4607 March, [facility] [address] [id number] [place] [address]- 9508 March, [facility] [address] [id number] [place] [address]- 6771 March, [facility] [address] [id number] [place] [address]- 1281 Feb, [facility] [address] [id number] [place] [address]- 0600 Feb, [facility] [address] [id number] [place] [address]- 6537 Feb, [facility] [address] [id number] [place] [address]- 9652 Feb, [facility] [address] [id number] [place] [address]- 6083 Jan, [facility] [place] [place] [facility] [address] [id number] [place] [address]- 7333 Jan, [facility] [place] [facility] [address] [id number] [place] [address]- 0081 Jan, [facility] [place] [facility] [address] [id number] [place] [address]- 6191 Jan, [facility] [place] [facility] [address] [id number] [place] [address]- 5280 Jan, [facility] [place] [facility] [address] [id number] [place] [address]- 0196 Jan, [facility] [place] [facility] [address] [id number] [place] [address]- 1168 Jan, [facility] [place] [facility] [address] [id number] [place] [address]- 6311 Dec, [facility] [place] [facility] [address] [id number] [place] [address]- 8667 Dec, [facility] [place] [facility] [address] [id number] [place] [address]- 2775 Dec, [facility] [place] [facility] [address] [id number] [place] [address]- 6207 Dec, [facility] [place] [facility] [address] [id number] [place] [address]- 8979 Dec, [facility] [place] [facility] [address] [id number] [place] [address]- 1369 Dec, [facility] [place] [facility] [address] [id number] [place] [address]- 9889 Nov, [facility] [place] [facility] [address] [id number] [place] [address]- 6140 Nov, [facility] [place] [facility] [address] [id number] [place] [address]- 0625 Nov, [facility] [place] [facility] [address] [id number] [place] [address]- 6166 Nov, [facility] [place] [facility] [address] [id number] [place] [address]- 2782 Nov, [facility] [place] [facility] [address] [id number] [place] [address]- 7322 Nov, [facility] [place] [facility] [address] [id number] [place] [address]- 5703 Nov, [facility] [place] [facility] [address] [id number] [place] [address]- 5348 Oct, [facility] [place] [facility] [address] [id number] [place] [address]- 4099 Oct, [facility] [place] [facility] [address] [id number] [place] [address]- 9937 Oct, [facility] [place] [facility] [address] [id number] [place] 7132 Oct, [facility] [place] [facility] [address] [id number] [place] [address]- 4149 Sep, [facility] [place] [facility] [address] [id number] [place] [address]- 6008 Sep, [facility] [place] [facility] [address] [id number] [place] 2517 Sep, [facility] [place] [facility] [address] [id number] [place] [address]- 5567 Sep, [facility] [place] [facility] [address] [facility] [id number] [place] 1529 Sep, [facility] [place] [facility] [address] [id number] [place] [address]- 0998 Sep, [facility] [place] [facility] [address] [id number] [place] [address]- 5787 Aug, [facility] [place] [facility] [address] [facility] [id number] [place] [address]- 1022 Aug, [facility] [place] [facility] [address] [id number] [place] [address]- 3556 Aug, [facility] [place] [facility] [address] [id number] [place] [address]- 8956 Aug, [facility] [place] [facility] [address] [id number] [place] [address]- 4981 Aug, [facility] [place] [facility] [address] [facility] [id number] [place] [address]- 1810 Aug, [facility] [place] [facility] [address] [id number] [place] [address]- 6449 Aug, [facility] [place] [facility] [address] [id number] [place] [address]- 4834 Jul, [facility] [address] [id number] [place] [address]- 3549 Jul, [facility] [address] [id number] [place] [address]- 1600 Jun, [facility] [address] [id number] [place] [address]- 7551 May, [facility] [address] [id number] [place] [address]- 5983 May, [facility] [address] [id number] [place] [address]- 8883 May, [facility] [address] [id number] [place] [address]- 3265 Apr, [facility] [address] [id number] [place] [address]- 8480 Apr, [facility] [address] [id number] [place] [address]- 6995 Apr, [facility] [address] [id number] [place] [address]- 8080 March, [facility] [address] [id number] [place] [address]- 4737 March, [facility] [address] [id number] [place] [address]- 1891 March, [facility] [address] [id number] [place] [address]- 1134 Feb, [facility] [place] [facility] [address] [id number] [place] [address]- 8776 Feb, [facility] [address] [id number] [place] [address]- 0075 15 Feb, 2013 [facility] [address] [id number] [place] [address]- 2476 28 Jan, 2013 [facility] [address] [id number] [place] [address]- 3149 19 Jan, 2013 [facility] [address] [id number] [place] [address]- 7436 18 Jan, 2013 [facility] [address] [facility] [id number] [place] [address]- 6037 15 Jan, 2013 [facility] [address] [id number] [place] [address]- 3758 14 Jan, 2013 [facility] [address] [id number] [place] [address]- 4816 12 Jan, 2013 [facility] [address] [facility] [id number] [place] [address]- 6616 05 Jan, 2013 [facility] [address] [facility] [id number] [place] [address]- 6601 28 Dec, 2012 [facility] [address] [id number] [place] [address]- 5333 18 Dec, 2012 [facility] [address] [facility] [id number] [place] [address]- 9526 15 Dec, 2012 [facility] [address] [facility] [id number] [place] [address]- 8940 14 Dec, 2012 [facility] [address] [facility] [id number] [place] [address]- 2496 05 Dec, 2012 [facility] [place] [facility] [address] [id number] [place] [address]- 6308 Nov, [facility] [place] [facility] [address] [id number] [place] [address]- 0437 Nov, [facility] [place] [facility] [address] [id number] [place] [address] 2546 Nov, [facility] [place] [facility] [address] [facility] [id number] [place] [address]- 7836 Nov, [facility] [place] [facility] [address] [id number] [place] [address]- 4323 31 Oct, 2012 [facility] [place] [facility] [address] [id number] [place] [address]- 8896 Oct, [facility] [place] [facility] [address] [id number] [place] 8536 Oct, [facility] [place] [facility] [address] [id number] [place] [address]- 3236 Oct, [facility] [place] [facility] [address] [id number] [place] [address]- 1948 Oct, [facility] [place] [facility] [address] [id number] [place] [address]- 9456 Oct, [facility] [place] [facility] [address] [id number] [place] [address]- 5938 Oct, [facility] [place] [facility] [address] [id number] [place] [address]- 4727 Oct, [facility] [place] [facility] [address] [id number] [place] [address]- 3053 Oct, [facility] [place] [facility] [address] [id number] [place] [address] Sep, [facility] [place] [facility] [address] [id number] [place] [address] 16 Sep, 2012 [facility] [place] [facility] [address] [id number] [place] [address] Sep, [facility] [place] [facility] [address] [id number] [place] [address] Sep, [facility] [place] [facility] [address] [id number] [place] [address] Sep, [facility] [place] [facility] [address] [id number] [place] [address] Aug, [facility] [place] [facility] [address] [id number] [place] [address] Aug, 2012 [facility] [place] [facility] [address] [id number] [place] [address] 17 Aug, 2012 [facility] [place] [facility] [address] [id number] [place] [address] 17 Aug, 2012 [facility] [place] [facility] [address] [id number] [place] [address] 16 Aug, 2012 [facility] [place] [facility] [address] [id number] [place] [address] 11 Aug, 2012 [facility] [place] [facility] [address] [id number] [place] [address] 11 Aug, 2012 [facility] [place] [facility] [address] [id number] [place] [address] 10 Aug, 2012 [facility] [place] [facility] [address] [id number] [place] [address]- [address] 10 Aug, 2012 [facility] [place] [facility] [address] [id number] [place] [address] 09 Aug, 2012 [facility] [place] [facility] [address] [id number] [place] [address] 05 Aug, 2012 [facility] [place] [facility] [address] [id number] [place] [address] 04 Aug, 2012 [facility] [place] [facility] [address] [id number] [place] [address] 17 Sep, 2011 [facility] [place] [facility] [address] [id number] [place] [address] 13 Sep, 2011 [facility] [place] [facility] [address] [id number] [place] [address] 13 Sep, 2011 [facility] [place] [facility] [address] [id number] [place] [address] 11 Sep, 2011 [facility] [place] [facility] [address] [id number] [place] [address] 10 Jul, 2011 [facility] [place] [facility] [address] [id number] [place] [address]- [address] 08 Jul, 2012 [facility] [place] [facility] [address] [id number] [place] [address] 16 Jun, 2012 [facility] [place] [facility] [address] [id number] [place] [address] 14 Jun, 2012 [facility] [place] [facility] [address] [id number] [place] [address] 17 May, 2012 [facility] [place] [facility] [address] [id number] [place] [address] 17 May, 2012 [facility] [place] [facility] [address] [id number] [place] [address] May, [facility] [place] [facility] [address] [id number] [place] [address] May, [facility] [address] [id number] [place] [address] Apr, [facility] [place] [facility] [address] [id number] [place] [address] Apr, [facility] [place] [facility] [address] [id number] [place] [address] Apr, [facility] [place] [facility] [address] [id number] [place] [address] Apr, [facility] [place] [facility] [address] [id number] [place] [address] Apr, [facility] [place] [facility] [address] [id number] [place] [address] March, [facility] [place] [facility] [address] [id number] [place] [address] March, [facility] [place] [facility] [address] [address] [id number] [place] [address] March, [facility] [place] [facility] [address] [id number] [place] [address] March, [facility] [place] [facility] [address] [id number] [place] [address] March, [facility] [address] [id number] [place] [address] Feb, [facility] [address] [id number] [place] [address] Feb, [facility] [address] [id number] [place] [address] Jan, [facility] [address] [id number] [place] [address] Jan, [facility] [address] [id number] [place] [address] Jan, [facility] [address] [id number] [place] [address] Dec, [facility] [address] [id number] [place] [address] Nov, [facility] [address] [id number] [place] [address] Nov, [facility] [address] [id number] [place] [address] Nov, [facility] [address] [id number] [place] [address] Nov, [facility] [address] [id number] [place] [address] Oct, [facility] [place] [facility] [address] [id number] [place] [address] Oct, [facility] [place] [facility] [address] [id number] [place] [address] Sep, [facility] [place] [facility] [address] [id number] [place] [address] Sep, [facility] [address] [id number] [place] [address] 10 Sep, 2011 [facility] [place] [facility] [address] [id number] [place] [address] 10 Sep, 2011 [facility] [place] [facility] [address] [id number] [place] [address] 08 Sep, 2011 [facility] [place] [facility] [address] [id number] [place] [address] 16 Jun, 2011 [facility] [place] [facility] [address] [id number] [place] [address] 15 Dec, 2010 [facility] [place] [facility] [address] [id number] [place] [address] Sep, [facility] [place] [facility] [address] [id number] [place] [address] 29 Aug, 2010 [facility] [place] [facility] [address] [facility] [id number] [place] [address] Aug, [facility] [place] [facility] [address] [id number] [place] [address] Aug, [facility] [place] [facility] [address] [facility] [id number] [place] [address] Aug, [facility] [place] [facility] [address] [facility] [id number] [place] [address] Aug, [facility] [place] [facility] [address] [facility] [id number] [place] [address] 17 Jun, 2010 [facility] [place] [facility] [address] [id number] [place] [address] 13 Feb, 2010 [facility] [place] [facility] [address] [id number] [place] [address] 06 Sep, 2009 [facility] [place] [facility] [address] [facility] [id number] [place] [address] 11 Aug, 2009 [facility] [place] [facility] [address] [facility] [id number] [place] [address] 18 Apr, 2009 [facility] [place] [facility] [address] [facility] [id number] [place] [address] March, IMMUNIZATIONS No Known Immunizations SOCIAL HISTORY Never Assessed REASON FOR VISIT elevated blood sugar PLAN OF CARE VITAL SIGNS MEDICATIONS Unknown Medications RESULTS No Results PROCEDURES No Known procedures INSTRUCTIONS MEDICATIONS ADMINISTERED No Known Medications MEDICAL (GENERAL) HISTORY Type Description Date Medical History Scoliosis Medical History Bipolar Surgical History right hip replacement Surgical History c-sections x4 Hospitalization History Pneumonia 2012
--- OUTSIDE RECORDS SUMMARY | 2018-06-10 19:55 | XMS REPORT ---
Author Author ASHOK ROMY [facility] Address [address] [place] [address] Care Team Providers Care Analytics Intern Name Role Phone FRANC PULIDOY Unavailable PROBLEMS Type Condition ICD9-CM Code [id number] Code Onset Dates Condition Status SNOMED Code Problem Panic attacks F41.0 Active 338388528 Problem Mixed hyperlipidemia E78.2 Active 264828044 Problem 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 Active 27728904 Problem Anxiety state, unspecified F41.1 Active 073395008 Problem Retinitis pigmentosa H35.52 Active 59172824 Problem Other chronic pain G89.29 Active 18580591 Problem Lumbago with sciatica, right side M54.41 Active 995077902 Problem Cervical disc disorder at C5-C6 level with radiculopathy M50.122 Active 729475438 Problem Tension headache G44.209 Active 259927236 Problem Fibromyalgia M79.7 Active 810160496 Problem Calculus of gallbladder without cholecystitis without obstruction K80.20 Active 550815142 Problem Chest pain, unspecified type R07.9 Active 01175209 Problem Major depressive disorder, recurrent episode, moderate F33.1 Active 929585547 Problem Insomnia G47.00 Active 736019712 Problem Generalized anxiety disorder F41.1 Active 23522809 Problem Tobacco use Z72.0 Active 218990348 Problem Low back pain M54.5 Active 546744530 Problem Type 2 diabetes mellitus with hyperglycemia, without long-term current use of insulin E11.65 Active 08794370 ALLERGIES No Information ENCOUNTERS Encounter Location Date Diagnosis [facility] [address] [address] March, Anxiety state, unspecified F41.1 [facility] [id number] [address] Feb, [facility] [address] [address] Feb, Medicare annual wellness visit, initial Z00.00 ; Type 2 diabetes mellitus with hyperglycemia, without long-term current use of insulin E11.65 ; Major depressive disorder, recurrent episode, moderate F33.1 ; Mixed hyperlipidemia E78.2 ; Fibromyalgia M79.7 ; Retinitis pigmentosa H35.52 ; Panic attacks F41.0 ; Facial skin lesion L98.9 ; Fullness of neck R22.1 and Screening for colon cancer Z12.11 [facility] [id number] [place] [address] 20695- 9783 Feb, Type 2 diabetes mellitus with hyperglycemia, without long- term current use of insulin E11.65 [facility] [id number] [place] [address] 25387- 7450 Jan, [facility] [id number] [place] [address] 70680- 5833 Jan, Asymptomatic microscopic hematuria R31.21 ; Chest pain, unspecified type R07.9 and Generalized anxiety disorder F41.1 [facility] [id number] [place] [address] 38307- 6471 Jan, [facility] [id number] [place] [address] 75953- 5711 Jan, [facility] [address] [address] Dec, [facility] [id number] [place] [address] 09466- 4738 Dec, [facility] [id number] [place] [address] 08060- 3063 Dec, [facility] [id number] [place] [address] 23182- 9382 Dec, [facility] [id number] [place] [address] 13015- 9212 Dec, [facility] [id number] [place] [address] 76062- 9316 13 Dec, 2017 Tension headache G44.209 [facility] [address] [address]26- 0506 09 Dec, 2017 Elevated LFTs R79.89 ; Type 2 diabetes mellitus with hyperglycemia, without long-term current use of insulin E11.65 ; Abdominal bloating R14.0 and Other fatigue R53.83 [facility] [address] 9[address]59- 1227 08 Dec, 2017 Elevated ALT measurement R74.0 [facility] [address] 32842- 9852 Nov, Type 2 diabetes mellitus with hyperglycemia, without long- term current use of insulin E11.65 and Mixed hyperlipidemia E78.2 [facility] [address] 19963- 6333 Oct, [facility] [address] 59201- 8536 Oct, Elevated ALT measurement R74.0 [facility] [address] 60213- 9306 Oct, [facility] [address] 07331- 7545 Oct, [facility] [address] 55915- 5730 Oct, Breast cancer screening Z12.31 [facility] [address] 26388- 2172 Sep, Tension headache G44.209 ; Cervical disc disorder at C5-C6 level with radiculopathy M50.122 ; Other fatigue R53.83 ; Breast pain, left N64.4 ; Vertigo R42 and Abnormal tympanic membrane of left ear H73.92 [facility] [id number] [place] [address] 41383 -0091 Sep, Screening breast examination Z12.39 [facility] [id number] [place] [address] 37739- 6539 Sep, [facility] [id number] [place] [address] 57242- 9133 Sep, Mixed hyperlipidemia E78.2 and Type 2 diabetes mellitus with hyperglycemia, without long-term current use of insulin E11.65 [facility] [address] 69277- 6313 Jul, [facility] [address] 35960- 0476 Jul, Lumbago with sciatica, right side M54.41 and Other chronic pain G89.29 [facility] [id number] [place] [address] 09101- 1761 May, Type 2 diabetes mellitus with hyperglycemia, without long- term current use of insulin E11.65 ; Low back pain M54.5 ; Tobacco use Z72.0 ; Mixed hyperlipidemia E78.2 ; Lateral epicondylitis of right elbow M77.11 and 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 [facility] [id number] [place] [address] 85078- 2099 Apr, [facility] [id number] [place] [address] 16948- 8777 Apr, Low back pain M54.5 [facility] [id number] [place] [address] 70642- 8424 Apr, Pain in thoracic spine M54.6 [facility] [id number] [place] [address] 56147 -2263 March, Lumbosacral neuritis M54.17 [facility] [id number] [place] [address] 16089- 5830 March, Low back pain M54.5 [facility] [id number] [place] [address] 08984- 4302 March, [facility] [address] [address] 6259 March, [facility] [id number] [place] [address] 87249- 2057 March, [facility] [id number] [place] [address] 91493- 9493 Feb, [facility] [id number] [place] [address] 43748- 4238 Feb, [facility] [id number] [place] [address] 40958- 8094 Feb, [facility] [id number] [place] [address] 03283- 6502 Feb, Low back pain M54.5 and Pain in thoracic spine M54.6 [facility] [id number] [place] [address] 96240- 5507 Jan, Panic attacks F41.0 ; Type 2 diabetes mellitus with hyperglycemia, without long-term current use of insulin E11.65 and Other chest pain R07.89 [facility] [id number] [place] [address] 92271- 8067 Jan, [facility] [id number] [place] [address] 15308- 6656 Jan, Type 2 diabetes mellitus with hyperglycemia, without long- term current use of insulin E11.65 [facility] [address] [place] [address] 11330- 9704 Jan, Pain in thoracic spine M54.6 [facility] [address] [place] [address] 93648- 7407 Jan, Type 2 diabetes mellitus with hyperglycemia, without long- term current use of insulin E11.65 and Elevated liver enzymes R74.8 [facility] [id number] [place] [address] 96792- 8491 Jan, [facility] [id number] [place] [address] 71253- 8688 Dec, Tobacco use Z72.0 ; Prediabetes R73.09 ; Elevated liver enzymes R74.8 ; Elevated fasting glucose R73.01 ; Elevated ALT measurement R74.0 ; Pain in thoracic spine M54.6 ; Panic attacks F41.0 and Type 2 diabetes mellitus with hyperglycemia, without long-term current use of insulin E11.65 [facility] [id number] [place] [address] 59125 -8621 Jun, Abdominal pain, right upper quadrant R10.11 [facility] [id number] [place] [address] 94846- 1811 Jun, [facility] [id number] [place] [address] 51678- 0321 Jun, [facility] [id number] [place] [address] 89034- 6552 Jun, [facility] [address] 88400- 4408 May, Routine gynecological examination Z01.419 ; Encounter for Papanicolaou smear for cervical cancer screening Z12.4 ; Screening breast examination Z12.39 ; Vaginal discharge N89.8 and Candidal vaginitis B37.3 [facility] [id number] [place] [address] 22651- 0414 May, [facility] [id number] [place] [address] 33469- 0614 May, Prediabetes R73.09 ; Elevated ALT measurement R74.0 ; Elevated fasting glucose R73.01 and Palpitations R00.2 [facility] [id number] [place] [address] 90781- 0580 Feb, [facility] [id number] [place] [address] 36573- 7742 Feb, [facility] [id number] [place] [address] 98982- 6166 11 Apr, 2016 Generalized anxiety disorder F41.1 and Major depressive disorder, recurrent episode, moderate F33.1 [facility] [id number] [place] [address] 44956- 5146 Feb, Generalized anxiety disorder F41.1 ; Low back pain M54.5 and Insomnia G47.00 [facility] [id number] [place] [address] 89583- 2237 Jan, Elevated fasting glucose R73.01 and Elevated ALT measurement R74.0 [facility] [address] 85189- 0928 Jan, Generalized anxiety disorder F41.1 ; Low back pain M54.5 and Screening cholesterol level Z13.220 [facility] [address] 52182- 7372 04 Dec, 2015 Scoliosis M41.9 and Anxiety F41.9 [facility] [address] 63288- 1117 Feb, [facility] [id number] [place] [address] 83783- 2566 Feb, [facility] [address] 21974- 5961 Apr, [facility] [id number] [place] [address] 81957- 2519 March, [facility] [id number] [place] [address] 53192- 4294 March, [facility] [id number] [place] [address] 59542- 3579 March, [facility] [address] 04627- 8609 March, [facility] [id number] [place] [address] 35096- 2099 March, [facility] [id number] [place] [address] 79385- 5805 March, [facility] [place] [facility] [address] [id number] [place] [address]- 0766 March, [facility] [place] [facility] [address] [id number] [place] [address]- 7143 March, [facility] [place] [facility] [address] [id number] [place] [address]- 9258 Feb, [facility] [place] [facility] [address] [id number] [place] [address]- 8705 Feb, [facility] [place] [facility] [address] [id number] [place] [address]- 0013 Feb, [facility] [place] [facility] [address] [id number] [place] [address]- 1704 Feb, [facility] [place] [facility] [address] [id number] [place] [address]- 9475 Jan, [facility] [place] [facility] [address] [id number] [place] [address]- 4316 Jan, [facility] [place] [facility] [address] [id number] [place] [address]- 4330 Jan, [facility] [place] [facility] [address] [id number] [place] [address]- 6670 Jan, [facility] [place] [facility] [address] [id number] [place] [address]- 9407 Jan, [facility] [place] [facility] [address] [id number] [place] [address]- 1372 Jan, [facility] [place] [facility] [address] [id number] [place] [address]- 7563 Jan, [facility] [place] [facility] [address] [id number] [place] [address]- 1858 Dec, [facility] [place] [facility] [address] [id number] [place] 4926 Dec, [facility] [place] [facility] [address] [id number] [place] [address]- 7525 Dec, [facility] [address] [id number] [place] [address]- 1904 Dec, [facility] [place] [facility] [address] [id number] [place] [address]- 3419 Dec, [facility] [address] [id number] [place] [address]- 8748 Dec, [facility] [place] [facility] [address] [id number] [place] [address]- 2981 Nov, [facility] [address] [id number] [place] [address]- 4843 Nov, [facility] [place] [facility] [address] [id number] [place] [address]- 1466 Nov, [facility] [address] [id number] [place] [address]- 5213 Nov, [facility] [address] [id number] [place] [address]- 5487 Nov, [facility] [place] [facility] [address] [id number] [place] [address]- 0334 Nov, [facility] [address] [facility] [id number] [place] [address]- 8958 Nov, [facility] [address] [id number] [place] [address]- 2406 Oct, [facility] [place] [facility] [address] [id number] [place] [address]- 6439 Oct, [facility] [place] [facility] [address] [id number] [place] [address]- 1518 Oct, [facility] [place] [facility] [address] [id number] [place] [address]- 7939 Oct, [facility] [place] [facility] [address] [id number] [place] [address]- 5520 Sep, [facility] [place] [facility] [address] [id number] [place] [address]- 3971 Sep, [facility] [place] [facility] [address] [id number] [place] [address]- 0855 Sep, [facility] [place] [facility] [address] [id number] [place] [address]- 7115 Sep, [facility] [place] [facility] [address] [id number] [place] [address] 254 Sep, [facility] [place] [facility] [address] [id number] [place] [address]- 8754 Sep, [facility] [place] [facility] [address] [id number] [place] [address]- 4366 Aug, [facility] [place] [facility] [address] [id number] [place] [address]- 4216 Aug, [facility] [place] [facility] [address] [id number] [place] [address]- 9274 Aug, [facility] [place] [facility] [address] [id number] [place] [address]- 1949 Aug, [facility] [place] [facility] [address] [id number] [address]- 2677 Aug, [facility] [place] [facility] [address] [id number] [address]- 7382 Aug, [facility] [place] [facility] [address] [id number] [address]- 1159 Aug, [facility] [place] [facility] [address] [id number] [address]- 0813 Jul, [facility] [place] [facility] [address] [id number] [address]- 5509 Jul, [facility] [place] [facility] [address] [id number] [address] 2544 Jun, [facility] [place] [facility] [address] [id number] [address]- 4259 18 May, 2013 [facility] [address] [id number] [place] [address]- 1569 May, [facility] [place] [facility] [address] [id number] [place] [address]- 9124 10 May, 2013 [facility] [address] [id number] [place] [address]- 4591 Apr, [facility] [place] [facility] [address] [id number] [place] [address]- 5713 Apr, [facility] [address] [id number] [place] [address]- 9834 Apr, [facility] [address] [id number] [place] [address]- 1279 March, [facility] [address] [id number] [place] [address]- 0438 March, [facility] [address] [id number] [place] [address]- 4225 March, [facility] [address] [id number] [place] [address]- 8035 Feb, [facility] [place] [facility] [address] [id number] [place] [address]- 7320 Feb, [facility] [address] [id number] [place] [address]- 4918 15 Feb, 2013 [facility] [place] [facility] [address] [id number] [place] [address]- 4591 28 Jan, 2013 [facility] [place] [facility] [address] [id number] [place] [address]- 2888 19 Jan, 2013 [facility] [place] [facility] [address] [id number] [place] [address]- 0347 18 Jan, 2013 [facility] [place] [facility] [address] [id number] [place] [address]- 8684 15 Jan, 2013 [facility] [place] [facility] [address] [id number] [place] [address]- 3913 14 Jan, 2013 [facility] [address] [id number] [place] [address]- 9833 12 Jan, 2013 [facility] [place] [facility] [address] [id number] [place] [address]- 8127 05 Jan, 2013 [facility] [address] [id number] [place] [address]- 6091 28 Dec, 2012 [facility] [place] [facility] [address] [id number] [place] [address]- 4922 18 Dec, 2012 [facility] [address] [id number] [place] [address]- 7466 15 Dec, 2012 [facility] [address] [id number] [place] [address]- 7891 14 Dec, 2012 [facility] [address] [id number] [place] [address]- 8010 05 Dec, 2012 [facility] [address] [id number] [place] [address]- 3912 Nov, [facility] [address] [id number] [place] [address]- 1820 Nov, [facility] [address] [id number] [place] [address]- 3227 Nov, [facility] [address] [id number] [place] [address]- 6599 Nov, [facility] [place] [facility] [address] [id number] [place] [address]- 6288 Oct, [facility] [place] [facility] [address] [id number] [place] [address]- 8756 Oct, [facility] [place] [facility] [address] [id number] [place] [address]- 9165 Oct, [facility] [place] [facility] [address] [id number] [address]- 4496 18 Oct, 2012 [facility] [place] [facility] [address] [id number] [place] [address]- 6895 Oct, [facility] [place] [facility] [address] [id number] [place] [address]- 6894 Oct, [facility] [place] [facility] [address] [facility] [id number] [place] [address]- 9946 Oct, [facility] [place] [facility] [address] [id number] [place] [address]- 7621 Oct, [facility] [place] [facility] [address] [id number] [place] 4712 Oct, [facility] [place] [facility] [address] [id number] [place] 4464 Sep, [facility] [place] [facility] [address] [id number] [place] [address]- 9728 Sep, [facility] [place] [facility] [address] [id number] [place] [address]- 6983 Sep, [facility] [place] [facility] [address] [id number] [place] [address]- 8628 Sep, [facility] [place] [facility] [address] [id number] [place] [address]- 0275 Sep, [facility] [place] [facility] [address] [id number] [place] [address]- 4997 Aug, [facility] [place] [facility] [address] [id number] [address]- 1636 Aug, [facility] [place] [facility] [address] [id number] [place] [address]- 1598 Aug, [facility] [place] [facility] [address] [facility] [id number] 6247 Aug, [facility] [place] [facility] [address] [facility] [id number] [address] [address] Aug, [facility] [place] [facility] [address] [id number] [place] [address] 11 Aug, 2012 [facility] [place] [facility] [address] [id number] [place] [address] 11 Aug, 2012 [facility] [place] [facility] [address] [id number] [place] [address] 10 Aug, 2012 [facility] [address] [id number] [place] [address] 10 Aug, 2012 [facility] [place] [facility] [address] [id number] [place] [address] 09 Aug, 2012 [facility] [place] [facility] [address] [id number] [place] [address]- [address] 05 Aug, 2012 [facility] [place] [facility] [address] [id number] [place] [address] 04 Aug, 2012 [facility] [place] [facility] [address] [id number] [place] [address] 17 Jul, 2012 [facility] [place] [facility] [address] [id number] [place] [address]- [address]66 13 Jul, 2012 [facility] [place] [facility] [address] [id number] [place] [address] 13 Jul, 2012 [facility] [place] [facility] [address] [id number] [place] [address] 11 Jul, 2012 [facility] [place] [facility] [address] [id number] [place] [address] 10 Jul, 2012 [facility] [place] [facility] [address] [id number] [place] [address] 08 Jul, 2012 [facility] [place] [facility] [address] [id number] [place] [address] 5939 16 Jun, 2012 [facility] [place] [facility] [address] [id number] [place] [address]- [address] 14 Jun, 2012 [facility] [place] [facility] [address] [id number] [place] [address]- [address]65 17 May, 2012 [facility] [place] [facility] [address] [id number] [place] [address] 17 May, 2012 [facility] [place] [facility] [address] [id number] [place] [address] May, [facility] [place] [facility] [address] [id number] [place] [address] May, [facility] [place] [facility] [address] [id number] [place] [address] Apr, [facility] [place] [facility] [address] [id number] [place] [address] Apr, [facility] [place] [facility] [address] [id number] [place] [address]- [address] Apr, [facility] [place] [facility] [address] [id number] [place] [address] Apr, [facility] [place] [facility] [address] [id number] [place] [address] Apr, [facility] [place] [facility] [address] [id number] [place] [address] March, [facility] [place] [facility] [address] [id number] [place] [address] March, [facility] [place] [facility] [address] [id number] [place] [address] March, [facility] [place] [facility] [address] [id number] [place] [address] March, [facility] [place] [facility] [address] [id number] [place] [address] March, [facility] [place] [facility] [address] [id number] [place] [address] 24 Feb, 2012 [facility] [place] [facility] [address] [id number] [place] [address] Feb, [facility] [place] [facility] [address] [id number] [place] [address] Jan, [facility] [address] [id number] [place] [address] Jan, [facility] [place] [facility] [address] [id number] [place] [address]- [address] Jan, [facility] [place] [facility] [address] [id number] [place] [address] Dec, [facility] [place] [facility] [address] [id number] [place] [address] Nov, [facility] [place] [facility] [address] [id number] [place] [address]- [address] Nov, [facility] [place] [facility] [address] [id number] [place] [address] Nov, [facility] [address] [facility] [id number] [place] [address]- [address] Nov, [facility] [place] [facility] [address] [id number] [place] [address]- [address] Oct, [facility] [place] [facility] [address] [id number] [place] [address]65 Oct, [facility] [place] [facility] [address] [facility] [id number] [place] [address] Sep, [facility] [place] [facility] [address] [id number] [place] [address]- [address]84 Sep, [facility] [place] [facility] [address] [id number] [place] [address] 139[address] Sep, [facility] [place] [facility] [address] [id number] [place] [address]- [address] Sep, [facility] [facility] [address] [facility] [id number] [place] [address] 08 Sep, 2011 [facility] [place] [facility] [address] [facility] [id number] [place] [address] 16 Jun, 2011 [facility] [place] [facility] [address] [facility] [id number] [address] 15 Dec, 2010 [facility] [address] [facility] [id number] [address] Sep, [facility] [address] [facility] [id number] [address] Aug, [facility] [address] [facility] [id number] [place] [address] Aug, [facility] [address] [facility] [id number] [place] [address] Aug, [facility] [address] [facility] [id number] [address] Aug, [facility] [id number] [address] Aug, [facility] [id number] [address] Jun, [facility] [id number] [address] Feb, [facility] [id number] [address] Sep, [facility] [address] [id number] [address] Aug, [facility] [id number] [address] Apr, [facility] [address] [id number] [address] March, IMMUNIZATIONS No Known Immunizations SOCIAL HISTORY Never Assessed REASON FOR VISIT eye exam PLAN OF CARE VITAL SIGNS MEDICATIONS Unknown Medications RESULTS No Results PROCEDURES No Known procedures INSTRUCTIONS MEDICATIONS ADMINISTERED No Known Medications MEDICAL (GENERAL) HISTORY Type Description Date Medical History Scoliosis Medical History Bipolar Surgical History right hip replacement Surgical History c-sections x4 Hospitalization History Pneumonia 2011
--- OUTSIDE RECORDS SUMMARY | 2018-06-10 19:56 | XMS REPORT ---
Author Author ASHOK ROMY [facility] Address [address] [place] [address] Care Team Providers Care Government Property Inspector Name Role Phone PHILLIP PULIDOHANY Unavailable PROBLEMS Type Condition ICD9-CM Code [id number] Code Onset Dates Condition Status SNOMED Code Problem Panic attacks F41.0 Active 238789291 Problem Mixed hyperlipidemia E78.2 Active 082334911 Problem 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 Active 12826443 Problem Anxiety state, unspecified F41.1 Active 511591037 Problem Retinitis pigmentosa H35.52 Active 66248634 Problem Other chronic pain G89.29 Active 59339068 Problem Lumbago with sciatica, right side M54.41 Active 950250959 Problem Cervical disc disorder at C5-C6 level with radiculopathy M50.122 Active 233974241 Problem Tension headache G44.209 Active 846282147 Problem Fibromyalgia M79.7 Active 160642794 Problem Calculus of gallbladder without cholecystitis without obstruction K80.20 Active 881871765 Problem Chest pain, unspecified type R07.9 Active 82165125 Problem Major depressive disorder, recurrent episode, moderate F33.1 Active 113239590 Problem Insomnia G47.00 Active 128254003 Problem Generalized anxiety disorder F41.1 Active 92096579 Problem Tobacco use Z72.0 Active 408046457 Problem Low back pain M54.5 Active 823058011 Problem Type 2 diabetes mellitus with hyperglycemia, without long-term current use of insulin E11.65 Active 17379592 ALLERGIES No Information ENCOUNTERS Encounter Location Date Diagnosis [facility] [address] [facility] [id number] [address] Jun, [facility] [address] [facility] [facility] [id number] [address] Apr, Type 2 diabetes mellitus with hyperglycemia, without long- term current use of insulin E11.65 [place] [id number] [place] [address] 70917- 9615 March, Anxiety state, unspecified F41.1 [place] [address] [place] [id number] [place] [address] 33212- 9385 Feb, [place] [address] [place] [id number] [place] [address] 11520- 3661 Feb, Medicare annual wellness visit, initial Z00.00 ; Type 2 diabetes mellitus with hyperglycemia, without long-term current use of insulin E11.65 ; Major depressive disorder, recurrent episode, moderate F33.1 ; Mixed hyperlipidemia E78.2 ; Fibromyalgia M79.7 ; Retinitis pigmentosa H35.52 ; Panic attacks F41.0 ; Facial skin lesion L98.9 ; Fullness of neck R22.1 and Screening for colon cancer Z12.11 [place] [address] [place] [id number] [place] [address] 27080- 3262 Feb, Type 2 diabetes mellitus with hyperglycemia, without long- term current use of insulin E11.65 [place] [address] [place] [id number] [place] [address] 07396- 8861 Jan, [place] [address] [place] [id number] [place] [address] 07691- 0954 Jan, Asymptomatic microscopic hematuria R31.21 ; Chest pain, unspecified type R07.9 and Generalized anxiety disorder F41.1 [place] [address] [place] [id number] [place] [address] 44244- 7374 Jan, [place] [address] [place] [id number] [place] [address] 62854- 9625 Jan, [facility] [id number] [place] [address] 33296 -4978 Dec, [facility] [address] [id number] [place] [address] 54616- 2210 Dec, [place] [address] [place] [id number] [place] [address] 42940- 0753 Dec, [place] [address] [place] [id number] [place] [address] 75105- 3402 Dec, [place] [address] 15344- 0588 14 Dec, 2017 [place] [address] 22144- 0577 Dec, Tension headache G44.209 [place] [address] 39575- 6285 Dec, Elevated LFTs R79.89 ; Type 2 diabetes mellitus with hyperglycemia, without long-term current use of insulin E11.65 ; Abdominal bloating R14.0 and Other fatigue R53.83 [place] [address] [place] [id number] [place] [address] 87349- 2320 08 Dec, 2017 Elevated ALT measurement R74.0 [place] [address] 00816- 7672 Nov, Type 2 diabetes mellitus with hyperglycemia, without long- term current use of insulin E11.65 and Mixed hyperlipidemia E78.2 [place] [address] 84646- 2279 Oct, [place] [address] [place] [id number] [place] [address] 43208- 8738 Oct, Elevated ALT measurement R74.0 [place] [address] 06077- 4450 Oct, [place] [address] 26647- 1699 Oct, [place] [address] 99810- 4738 Oct, Breast cancer screening Z12.31 [place] [address] 21744- 3371 Sep, Tension headache G44.209 ; Cervical disc disorder at C5-C6 level with radiculopathy M50.122 ; Other fatigue R53.83 ; Breast pain, left N64.4 ; Vertigo R42 and Abnormal tympanic membrane of left ear H73.92 [facility] [place] [address] [place] [id number] [place] [address] 24008 -8535 Sep, Screening breast examination Z12.[address] 21457- 9336 Sep, [place] [address] 54707- 8494 Sep, Mixed hyperlipidemia E78.2 and Type 2 diabetes mellitus with hyperglycemia, without long-term current use of insulin E11.65 [place] [address] 52137- 4013 Jul, [address] 40582- 7490 Jul, Lumbago with sciatica, right side M54.41 and Other chronic pain G89.[address] 24849- 9737 May, Type 2 diabetes mellitus with hyperglycemia, without long- term current use of insulin E11.65 ; Low back pain M54.5 ; Tobacco use Z72.0 ; Mixed hyperlipidemia E78.2 ; Lateral epicondylitis of right elbow M77.11 and 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 [place] [address] 53280- 8951 Apr, [place] [address] 17464- 9489 Apr, Low back pain M54.[address] 68856- 1396 Apr, Pain in thoracic spine M54.6 [facility] [address] 06115 -6435 March, Lumbosacral neuritis M54.17 [facility] [address] [address] 3910 March, Low back pain M54.5 [facility] [address] [place] [id number] [place] [address] 11499- 5611 March, [facility] [address] [place] [id number] [place] [address] 84786- 9823 March, [facility] [address] [place] [address] [id number] [place] [address] 38610- 1684 March, [facility] [address] [place] [address] [id number] [place] [address] 14852- 4932 Feb, [facility] [address] [place] [id number] [place] [address] 79053- 9844 Feb, [facility] [address] [place] [id number] [place] [address] 37649- 9256 Feb, [facility] [address] [place] [address] [id number] [place] [address] 95243- 0564 Feb, Low back pain M54.5 and Pain in thoracic spine M54.6 [facility] [address] [place] [id number] [place] [address] 66168- 4594 Jan, Panic attacks F41.0 ; Type 2 diabetes mellitus with hyperglycemia, without long-term current use of insulin E11.65 and Other chest pain R07.89 [facility] [id number] [place] [address] 13695- 7882 Jan, [facility] [address] [place] [address] 49823- 8970 Jan, Type 2 diabetes mellitus with hyperglycemia, without long- term current use of insulin E11.65 [facility] [address] [place] [address] 91960- 5667 Jan, Pain in thoracic spine M54.6 [facility] [address] [place] [address] 57066- 3106 Jan, Type 2 diabetes mellitus with hyperglycemia, without long- term current use of insulin E11.65 and Elevated liver enzymes R74.8 [facility] [address] [place] [id number] [place] [address] 37807- 0065 Jan, [facility] [address] [place] [id number] [place] [address] 84189- 2710 Dec, Tobacco use Z72.0 ; Prediabetes R73.09 ; Elevated liver enzymes R74.8 ; Elevated fasting glucose R73.01 ; Elevated ALT measurement R74.0 ; Pain in thoracic spine M54.6 ; Panic attacks F41.0 and Type 2 diabetes mellitus with hyperglycemia, without long-term current use of insulin E11.65 [facility] [address] [place] [id number] [place] [address] 90641 -0354 Jun, Abdominal pain, right upper quadrant R10.11 [place] [address] [place] [id number] [place] [address] 37323- 5073 Jun, [place] [address] [place] [id number] [place] [address] 88322- 9732 Jun, [place] [address] [place] [id number] [place] [address] 01309- 1835 Jun, [place] [address] [place] [id number] [place] [address] 60599- 1961 May, Routine gynecological examination Z01.419 ; Encounter for Papanicolaou smear for cervical cancer screening Z12.4 ; Screening breast examination Z12.39 ; Vaginal discharge N89.8 and Candidal vaginitis B37.3 [facility] [address] [place] [id number] [place] [address] 18702- 8774 May, [place] [address] [place] [id number] [place] [address] 87862- 4469 May, Prediabetes R73.09 ; Elevated ALT measurement R74.0 ; Elevated fasting glucose R73.01 and Palpitations R00.2 [place] [address] [place] [id number] [place] [address] 38508- 3583 Feb, [facility] [address] [place] [id number] [place] [address] 22083- 7936 Feb, [facility] [address] [place] [id number] [place] [address] 63782- 0823 Feb, Generalized anxiety disorder F41.1 and Major depressive disorder, recurrent episode, moderate F33.1 [facility] [address] [place] [id number] [place] [address] 43687- 9868 Feb, Generalized anxiety disorder F41.1 ; Low back pain M54.5 and Insomnia G47.00 [place] [address] 94172- 1320 Jan, Elevated fasting glucose R73.01 and Elevated ALT measurement R74.0 [place] [address] [place] [id number] [place] [address] 88975- 0216 Jan, Generalized anxiety disorder F41.1 ; Low back pain M54.5 and Screening cholesterol level Z13.220 [place] [address] [place] [id number] [place] [address] 75852- 4006 Dec, Scoliosis M41.9 and Anxiety F41.9 [place] [address] [place] [id number] [place] [address] 53012- 1330 Feb, [facility] [address] [place] [id number] [place] [address] 50184- 0324 Feb, [facility] [address] [place] [id number] [place] [address] 09975- 5852 Apr, [facility] [address] [place] [id number] [place] [address] 15415- 7228 March, [facility] [address] [place] [id number] [place] [address] 77554- 5234 March, [facility] [address] [place] [address] 07500- 5229 March, [facility] [address] [place] [id number] [address]- 1566 March, [facility] [address] [id number] [place] [address]- 6968 March, [facility] [address] [id number] [place] [address]23 March, [facility] [address] [id number] [place] [address]- 5457 March, [facility] [address] [id number] [place] [address]- 0350 March, [facility] [address] [id number] [place] [address]- 5852 Feb, [facility] [address] [id number] [place] [address]- 9348 Feb, [facility] [address] [id number] [place] [address]- 8896 Feb, [facility] [address] [id number] [place] [address]- 3611 Feb, [facility] [address] [id number] [place] [address]- 8424 Jan, [facility] [address] [id number] [place] [address]- 2261 Jan, [facility] [place] [facility] [address] [id number] [place] [address]- 5226 Jan, [facility] [place] [facility] [address] [id number] [place] [address]- 6290 Jan, [facility] [place] [facility] [address] [id number] [place] [address]- 8069 Jan, [facility] [place] [facility] [address] [id number] [place] [address]- 6151 Jan, [facility] [place] [facility] [address] [id number] [place] [address]- 1164 Jan, [facility] [place] [facility] [address] [id number] [place] [address]- 5052 Dec, [facility] [place] [facility] [address] [id number] [place] [address]- 4415 Dec, [facility] [place] [facility] [address] [id number] [place] [address]- 5825 Dec, [facility] [place] [facility] [address] [id number] [place] [address]- 9992 Dec, [facility] [place] [facility] [address] [id number] [place] [address]- 5429 Dec, [facility] [place] [facility] [address] [id number] [place] [address]- 7523 Dec, [facility] [place] [facility] [address] [id number] [place] [address]- 6423 Nov, [facility] [place] [facility] [address] [id number] [place] [address]- 4059 Nov, [facility] [place] [facility] [address] [id number] [place] [address]- 0094 Nov, [facility] [place] [facility] [address] [id number] [place] [address]- 1124 Nov, [facility] [place] [facility] [address] [id number] [address]- 5333 Nov, [facility] [place] [facility] [address] [id number] [address]- 8442 Nov, [facility] [place] [facility] [address] [id number] [place] [address]- 4454 Nov, [facility] [place] [facility] [address] [id number] [address]- 7830 Oct, [facility] [place] [facility] [address] [id number] [place] [address]- 2216 Oct, [facility] [place] [facility] [address] [id number] [place] [address]- 6000 Oct, [facility] [place] [facility] [address] [id number] [place] 5770 Oct, [facility] [place] [facility] [address] [id number] [place] [address]- 4661 Sep, [facility] [place] [facility] [address] [id number] [place] [address]- 3484 Sep, [facility] [place] [facility] [address] [id number] [place] [address]- 2125 Sep, [facility] [place] [facility] [address] [id number] [place] 6863 Sep, [facility] [place] [facility] [address] [id number] [place] [address]- 2968 Sep, [facility] [place] [facility] [address] [facility] [id number] [place] [address]- 2252 Sep, [facility] [place] [facility] [address] [id number] [place] [address]- 2924 Aug, [facility] [place] [facility] [address] [id number] [place] [address]- 1284 Aug, [facility] [place] [facility] [address] [facility] [id number] [place] [address]- 9185 Aug, [facility] [place] [facility] [address] [id number] [place] [address]- 9741 Aug, [facility] [place] [facility] [address] [id number] [address]- 0163 Aug, [facility] [place] [facility] [address] [id number] [place] [address]- 5732 Aug, [facility] [place] [facility] [address] [facility] [id number] [place] [address]- 3262 Aug, [facility] [place] [facility] [address] [id number] [address]- 6167 Jul, [facility] [place] [facility] [address] [id number] [place] [address]- 0501 Jul, [facility] [address] [id number] [place] [address]- 6337 Jun, [facility] [address] [id number] [place] [address]- 9573 May, [facility] [address] [id number] [place] [address]- 6985 May, [facility] [address] [id number] [place] [address]- 5485 May, [facility] [address] [id number] [place] [address]- 7837 Apr, [facility] [address] [id number] [place] [address]- 6375 Apr, [facility] [address] [id number] [place] [address]- 8534 Apr, [facility] [address] [id number] [place] [address]- 6898 March, [facility] [address] [id number] [place] [address]- 7103 March, [facility] [address] [id number] [place] [address]- 1527 March, [facility] [address] [id number] [place] [address]- 6514 Feb, [facility] [address] [id number] [place] [address]- 2626 Feb, [facility] [place] [facility] [address] [id number] [place] [address]- 6505 15 Feb, 2013 [facility] [address] [id number] [place] [address]- 1298 Jan, [facility] [address] [id number] [place] [address]- 9330 19 Jan, 2013 [facility] [address] [id number] [place] [address]- 2770 18 Jan, 2013 [facility] [address] [id number] [place] [address]- 1513 15 Jan, 2013 [facility] [address] [facility] [id number] [place] [address]- 7407 14 Jan, 2013 [facility] [address] [id number] [place] [address]- 8476 12 Jan, 2013 [facility] [address] [id number] [place] [address]- 8949 05 Jan, 2013 [facility] [address] [facility] [id number] [place] [address]- 6825 28 Dec, 2012 [facility] [address] [facility] [id number] [place] [address]- 1979 18 Dec, 2012 [facility] [place] [facility] [address] [facility] [id number] [place] [address]- 4712 15 Dec, 2012 [facility] [address] [facility] [id number] [place] [address]- 1609 14 Dec, 2012 [facility] [address] [facility] [id number] [place] [address]- 3666 05 Dec, 2012 [facility] [address] [facility] [id number] [place] [address]- 1343 29 Nov, 2012 [facility] [place] [facility] [address] [id number] [place] [address]- 4056 17 Nov, 2012 [facility] [place] [facility] [address] [facility] [id number] [place] [address]- 6946 Nov, [facility] [place] [facility] [address] [facility] [id number] [place] [address]- 8549 02 Nov, 2012 [facility] [place] [facility] [address] [facility] [id number] [place] [address]- 4038 Oct, [facility] [place] [facility] [address] [id number] [place] [address]- 2152 31 Oct, 2012 [facility] [place] [facility] [address] [id number] [place] [address]- 9216 Oct, [facility] [place] [facility] [address] [id number] [place] [address]- 4616 Oct, [facility] [place] [facility] [address] [id number] [place] [address]- 5336 Oct, [facility] [place] [facility] [address] [id number] [place] [address]- 2974 Oct, [facility] [place] [facility] [address] [id number] [place] [address]- 0936 Oct, [facility] [place] [facility] [address] [id number] [place] [address]- 4023 Oct, [facility] [place] [facility] [address] [id number] [place] [address]- 5060 Oct, [facility] [place] [facility] [address] [id number] [place] [address]- 1174 16 Sep, 2012 [facility] [place] [facility] [address] [id number] [place] [address]- 2786 16 Sep, 2012 [facility] [place] [facility] [address] [id number] [place] [address]- 8549 Sep, [facility] [place] [facility] [address] [id number] [place] [address]- 8831 Sep, [facility] [place] [facility] [address] [id number] [place] [address]- 7871 Sep, [facility] [place] [facility] [address] [id number] [place] [address]- 4236 Aug, [facility] [place] [facility] [address] [id number] [place] [address]- 5744 Aug, [facility] [place] [facility] [address] [id number] [place] [address] 17 Aug, 2012 [facility] [place] [facility] [address] [id number] [place] [address]88 17 Aug, 2012 [facility] [place] [facility] [address] [id number] [place] [address]26 16 Aug, 2012 [facility] [place] [facility] [address] [id number] [place] [address] 11 Aug, 2012 [facility] [place] [facility] [address] [id number] [place] [address] 11 Aug, 2012 [facility] [place] [facility] [address] [id number] [place] [address] 140[address] 10 Aug, 2012 [facility] [place] [facility] [address] [id number] [place] [address] 77[address] 10 Aug, 2012 [facility] [place] [facility] [address] [id number] [place] [address] 1627 09 Aug, 2012 [facility] [place] [facility] [address] [id number] [address] 05 Aug, 2012 [facility] [place] [facility] [address] [id number] [place] [address] 04 Aug, 2012 [facility] [place] [facility] [address] [id number] [place] [address] 17 Sep, 2011 [facility] [place] [facility] [address] [id number] [place] [address] 13 Sep, 2011 [facility] [place] [facility] [address] [id number] [address] 13 Sep, 2011 [facility] [place] [facility] [address] [id number] [address] 11 Sep, 2011 [facility] [place] [facility] [address] [id number] [place] [address] 7024 10 Sep, 2011 [facility] [place] [facility] [address] [id number] [place] [address] 08 Sep, 2011 [facility] [place] [facility] [address] [id number] [place] [address] 69[address] 16 Jun, 2012 [facility] [place] [facility] [address] [id number] [place] [address] 8987 14 Jun, 2012 [facility] [place] [facility] [address] [id number] [place] [address]16 17 May, 2012 [facility] [place] [facility] [address] [id number] [place] [address] 7946 17 May, 2012 [facility] [place] [facility] [address] [id number] [place] [address]- 1190 13 May, 2012 [facility] [place] [facility] [address] [id number] [place] [address] May, [facility] [place] [facility] [address] [id number] [place] [address] 110[address] Apr, [facility] [place] [facility] [address] [id number] [place] [address] Apr, [facility] [place] [facility] [address] [id number] [place] [address] Apr, [facility] [place] [facility] [address] [id number] [place] [address] Apr, [facility] [place] [facility] [address] [id number] [place] [address]- [address] Apr, [facility] [place] [facility] [address] [id number] [place] [address] March, [facility] [place] [facility] [address] [id number] [place] [address] March, [facility] [place] [facility] [address] [id number] [place] [address]65 March, [facility] [place] [facility] [address] [id number] [place] [address] March, [facility] [place] [facility] [address] [id number] [place] [address] March, [facility] [place] [facility] [address] [id number] [place] [address] Feb, [facility] [address] [id number] [place] [address] Feb, [facility] [address] [id number] [place] [address] Jan, [facility] [address] [id number] [place] [address] Jan, [facility] [address] [id number] [place] [address] 120[address] Jan, [facility] [address] [id number] [place] [address] Dec, [facility] [address] [id number] [place] [address] Nov, [facility] [address] [id number] [place] [address] Nov, [facility] [address] [address] [id number] [place] [address] Nov, [facility] [address] [id number] [place] [address] Nov, [facility] [address] [id number] [place] [address] Oct, [facility] [address] [id number] [place] [address] Oct, [facility] [place] [facility] [address] [id number] [place] [address] Sep, [facility] [place] [facility] [address] [id number] [place] [address] Sep, [facility] [place] [facility] [address] [id number] [place] [address] Sep, [facility] [place] [facility] [address] [id number] [address] 10 Sep, 2011 [facility] [address] [facility] [id number] [place] [address] Sep, [facility] [address] [facility] [facility] [id number] [place] [address] 16 Jun, 2011 [facility] [address] [facility] [id number] [place] [address] 15 Dec, 2010 [facility] [address] [facility] [id number] [place] [address] Sep, [facility] [address] [facility] [id number] [place] [address] Aug, [facility] [address] [facility] [id number] [place] [address] Aug, [facility] [address] [id number] [address] Aug, [facility] [address] [facility] [id number] [place] [address] Aug, [facility] [address] [id number] [address] Aug, [facility] [address] [facility] [id number] [place] [address] Jun, [facility] [address] [facility] [id number] [place] [address] Feb, [facility] [address] [facility] [id number] [place] [address] Sep, [facility] [address] [facility] [facility] [id number] [place] [address] Aug, [facility] [address] [facility] [facility] [id number] [place] [address] [address] Apr, [facility] [id number] [address] March, IMMUNIZATIONS No Known Immunizations SOCIAL HISTORY Never Assessed REASON FOR VISIT Referrals PLAN OF CARE VITAL SIGNS MEDICATIONS Unknown Medications RESULTS No Results PROCEDURES No Known procedures INSTRUCTIONS MEDICATIONS ADMINISTERED No Known Medications MEDICAL (GENERAL) HISTORY Type Description Date Medical History Scoliosis Medical History Bipolar Surgical History right hip replacement Surgical History c-sections x4 Hospitalization History Pneumonia 2011
--- OUTSIDE RECORDS SUMMARY | 2018-06-10 19:56 | XMS REPORT ---
Author Author ASHOK ROMY [facility] Address [address] [place] [address] Care Team Providers Care Cinder Pitman Name Role Phone PHILLIP PULIDOHANY Unavailable PROBLEMS Type Condition ICD9-CM Code LUT17-MR Code Onset Dates Condition Status SNOMED Code Problem Panic attacks F41.0 Active 493383180 Problem Mixed hyperlipidemia E78.2 Active 810097555 Problem 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 Active 79488705 Problem Anxiety state, unspecified F41.1 Active 826961638 Problem Retinitis pigmentosa H35.52 Active 72045949 Problem Other chronic pain G89.29 Active 30459741 Problem Lumbago with sciatica, right side M54.41 Active 743254152 Problem Cervical disc disorder at C5-C6 level with radiculopathy M50.122 Active 164069701 Problem Tension headache G44.209 Active 135664098 Problem Fibromyalgia M79.7 Active 814027039 Problem Calculus of gallbladder without cholecystitis without obstruction K80.20 Active 713282405 Problem Chest pain, unspecified type R07.9 Active 04755716 Problem Major depressive disorder, recurrent episode, moderate F33.1 Active 785017285 Problem Insomnia G47.00 Active 779204060 Problem Generalized anxiety disorder F41.1 Active 93565680 Problem Tobacco use Z72.0 Active 590859487 Problem Low back pain M54.5 Active 518416802 Problem Type 2 diabetes mellitus with hyperglycemia, without long-term current use of insulin E11.65 Active 75807876 ALLERGIES No Information ENCOUNTERS Encounter Location Date Diagnosis [facility] [address] [facility] [id number] [address] Jun, [facility] [address] [facility] [id number], [place] [address] Apr, Type 2 diabetes mellitus with hyperglycemia, without long- term current use of insulin E11.65 [place] [id number] [place] [address] 56112- 9823 March, Anxiety state, unspecified F41.1 [place] [address] [place] [id number] [place] [address] 49269- 2020 Feb, [place] [address] [place] [id number] [place] [address] 16443- 3872 Feb, Medicare annual wellness visit, initial Z00.00 ; Type 2 diabetes mellitus with hyperglycemia, without long-term current use of insulin E11.65 ; Major depressive disorder, recurrent episode, moderate F33.1 ; Mixed hyperlipidemia E78.2 ; Fibromyalgia M79.7 ; Retinitis pigmentosa H35.52 ; Panic attacks F41.0 ; Facial skin lesion L98.9 ; Fullness of neck R22.1 and Screening for colon cancer Z12.11 [place] [address] [place] [id number] [place] [address] 67653- 0719 Feb, Type 2 diabetes mellitus with hyperglycemia, without long- term current use of insulin E11.65 [place] [address] [place] [id number] [place] [address] 90801- 7916 Jan, [place] [address] [place] [id number] [place] [address] 60679- 9223 Jan, Asymptomatic microscopic hematuria R31.21 ; Chest pain, unspecified type R07.9 and Generalized anxiety disorder F41.1 [place] [address] [place] [id number] [place] [address] 43877- 6301 Jan, [place] [address] [place] [id number] [place] [address] 84189- 8914 Jan, [facility] [address] [place] [id number] [place] [address] 90010 -2092 Dec, [facility] [address] [place] [id number] [place] [address] 29283- 5333 Dec, [place] [address] [place] [id number] [place] [address] 69242- 6932 Dec, [place] [address] [place] [id number] [place] [address] 51803- 6627 Dec, [place] [address] 63391- 3208 14 Dec, 2017 [place] [address] 07676- 1868 Dec, Tension headache G44.209 [place] [address] 81162- 8731 Dec, Elevated LFTs R79.89 ; Type 2 diabetes mellitus with hyperglycemia, without long-term current use of insulin E11.65 ; Abdominal bloating R14.0 and Other fatigue R53.83 [place] [address] [place] [id number] [place] [address] 33866- 5646 08 Dec, 2017 Elevated ALT measurement R74.0 [place] [address] 83802- 3921 Nov, Type 2 diabetes mellitus with hyperglycemia, without long- term current use of insulin E11.65 and Mixed hyperlipidemia E78.2 [place] [address] 23620- 8998 Oct, [place] [address] [place] [id number] [place] [address] 92537- 2984 Oct, Elevated ALT measurement R74.0 [place] [address] 84834- 6602 Oct, [place] [address] 04690- 8027 Oct, [place] [address] 41928- 6618 Oct, Breast cancer screening Z12.31 [place] [address] 41004- 2617 Sep, Tension headache G44.209 ; Cervical disc disorder at C5-C6 level with radiculopathy M50.122 ; Other fatigue R53.83 ; Breast pain, left N64.4 ; Vertigo R42 and Abnormal tympanic membrane of left ear H73.92 [facility] [place] [address] [place] [id number] [place] [address] 62263 -3804 Sep, Screening breast examination Z12.[address] 24337- 6173 Sep, [place] [address] 65889- 2218 Sep, Mixed hyperlipidemia E78.2 and Type 2 diabetes mellitus with hyperglycemia, without long-term current use of insulin E11.65 [place] [address] 59993- 4812 Jul, [address] 54517- 3462 Jul, Lumbago with sciatica, right side M54.41 and Other chronic pain G89.[address] 93032- 1820 May, Type 2 diabetes mellitus with hyperglycemia, without long- term current use of insulin E11.65 ; Low back pain M54.5 ; Tobacco use Z72.0 ; Mixed hyperlipidemia E78.2 ; Lateral epicondylitis of right elbow M77.11 and 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 [place] [address] 48514- 2342 Apr, [place] [address] 16335- 8268 Apr, Low back pain M54.[address] 25315- 0112 Apr, Pain in thoracic spine M54.6 [facility] [address] 23002 -7828 March, Lumbosacral neuritis M54.17 [facility] [address] [address] 9659 March, Low back pain M54.5 [facility] [address] [place] [id number] [place] [address] 66865- 4929 March, [facility] [address] [place] [id number] [place] [address] 36980- 4928 March, [facility] [address] [place] [id number] [place] [address] 41710- 2051 March, [facility] [address] [place] [id number] [place] [address] 35896- 2394 Feb, [facility] [address] [place] [id number] [place] [address] 56804- 0342 Feb, [facility] [address] [place] [id number] [place] [address] 55717- 2482 Feb, [facility] [address] [place] [id number] [place] [address] 51537- 9140 Feb, Low back pain M54.5 and Pain in thoracic spine M54.6 [facility] [address] [place] [id number] [place] [address] 71864- 2834 Jan, Panic attacks F41.0 ; Type 2 diabetes mellitus with hyperglycemia, without long-term current use of insulin E11.65 and Other chest pain R07.89 [facility] [address] [place] [address] 48003- 0960 Jan, [facility] [address] [place] [address] 72771- 6917 Jan, Type 2 diabetes mellitus with hyperglycemia, without long- term current use of insulin E11.65 [facility] [address] [place] [address] 13767- 4364 Jan, Pain in thoracic spine M54.6 [facility] [address] [place] [address] 93419- 3808 Jan, Type 2 diabetes mellitus with hyperglycemia, without long- term current use of insulin E11.65 and Elevated liver enzymes R74.8 [facility] [address] [place] [id number] [place] [address] 45308- 7345 Jan, [facility] [address] [place] [id number] [place] [address] 94982- 2728 Dec, Tobacco use Z72.0 ; Prediabetes R73.09 ; Elevated liver enzymes R74.8 ; Elevated fasting glucose R73.01 ; Elevated ALT measurement R74.0 ; Pain in thoracic spine M54.6 ; Panic attacks F41.0 and Type 2 diabetes mellitus with hyperglycemia, without long-term current use of insulin E11.65 [facility] [address] [place] [id number] [place] [address] 97019 -3338 Jun, Abdominal pain, right upper quadrant R10.11 [place] [address] [place] [id number] [place] [address] 05157- 1357 Jun, [place] [address] [place] [id number] [place] [address] 87141- 4754 Jun, [place] [address] [place] [id number] [place] [address] 85015- 1154 Jun, [place] [address] [place] [id number] [place] [address] 98578- 2906 May, Routine gynecological examination Z01.419 ; Encounter for Papanicolaou smear for cervical cancer screening Z12.4 ; Screening breast examination Z12.39 ; Vaginal discharge N89.8 and Candidal vaginitis B37.3 [facility] [address] [place] [id number] [place] [address] 34607- 8988 May, [place] [address] [place] [id number] [place] [address] 78437- 6756 May, Prediabetes R73.09 ; Elevated ALT measurement R74.0 ; Elevated fasting glucose R73.01 and Palpitations R00.2 [place] [address] [place] [id number] [place] [address] 21519- 3180 Feb, [facility] [address] [place] [id number] [place] [address] 03970- 8389 Feb, [facility] [address] [place] [id number] [place] [address] 69622- 5698 Feb, Generalized anxiety disorder F41.1 and Major depressive disorder, recurrent episode, moderate F33.1 [facility] [address] [place] [id number] [place] [address] 80870- 8188 Feb, Generalized anxiety disorder F41.1 ; Low back pain M54.5 and Insomnia G47.00 [place] [address] 99668- 3116 Jan, Elevated fasting glucose R73.01 and Elevated ALT measurement R74.0 [place] [address] [place] [id number] [place] [address] 94914- 6415 Jan, Generalized anxiety disorder F41.1 ; Low back pain M54.5 and Screening cholesterol level Z13.220 [place] [address] [place] [id number] [place] [address] 53929- 4342 Dec, Scoliosis M41.9 and Anxiety F41.9 [place] [address] [place] [id number] [place] [address] 16799- 4287 Feb, [facility] [address] [place] [id number] [place] [address] 06258- 3807 Feb, [facility] [address] [place] [id number] [place] [address] 09967- 1143 Apr, [facility] [address] [place] [id number] [place] [address] 24204- 0803 March, [facility] [address] [place] [id number] [place] [address] 92769- 4266 March, [facility] [address] [place] [address] 58458- 9771 March, [facility] [address] [place] [id number] [place] [address]- 1504 March, [facility] [address] [id number] [place] [address]- 9363 March, [facility] [address] [id number] [place] [address]79 March, [facility] [address] [id number] [place] [address]- 4343 March, [facility] [address] [id number] [place] [address]- 5935 March, [facility] [address] [id number] [place] [address]- 2016 Feb, [facility] [address] [id number] [place] [address]- 7018 Feb, [facility] [address] [id number] [place] [address]- 9409 Feb, [facility] [address] [id number] [place] [address]- 6182 Feb, [facility] [address] [id number] [place] [address]- 5262 Jan, [facility] [address] [id number] [place] [address]- 9638 Jan, [facility] [place] [facility] [address] [id number] [place] [address]- 5748 Jan, [facility] [place] [facility] [address] [id number] [place] [address]- 1114 Jan, [facility] [place] [facility] [address] [id number] [place] [address]- 5830 Jan, [facility] [place] [facility] [address] [id number] [place] [address]- 5973 Jan, [facility] [place] [facility] [address] [id number] [place] [address]- 4243 Jan, [facility] [place] [facility] [address] [id number] [place] [address]- 9886 Dec, [facility] [place] [facility] [address] [id number] [place] [address]- 8375 Dec, [facility] [place] [facility] [address] [id number] [place] [address]- 6624 Dec, [facility] [place] [facility] [address] [id number] [place] [address]- 6698 Dec, [facility] [place] [facility] [address] [id number] [place] [address]- 9431 Dec, [facility] [place] [facility] [address] [id number] [place] [address]- 4208 Dec, [facility] [place] [facility] [address] [id number] [place] [address]- 1927 Nov, [facility] [place] [facility] [address] [id number] [place] [address]- 8524 Nov, [facility] [place] [facility] [address] [id number] [place] [address]- 0823 Nov, [facility] [place] [facility] [address] [id number] [place] [address]- 1820 Nov, [facility] [place] [facility] [address] [id number], [place] [address]- 7384 Nov, [facility] [place] [facility] [address] [id number], [place] [address]- 8345 Nov, [facility] [place] [facility] [address] [id number] [place] [address]- 5466 Nov, [facility] [place] [facility] [address] [id number] [address]- 5372 Oct, [facility] [place] [facility] [address] [id number] [place] [address]- 5264 Oct, [facility] [place] [facility] [address] [id number] [place] [address]- 7388 Oct, [facility] [place] [facility] [address] [id number] [place] 5625 Oct, [facility] [place] [facility] [address] [id number] [place] [address]- 1878 Sep, [facility] [place] [facility] [address] [id number] [place] [address]- 5418 Sep, [facility] [place] [facility] [address] [id number] [place] [address]- 1157 Sep, [facility] [place] [facility] [address] [id number] [place] 6411 Sep, [facility] [place] [facility] [address] [id number] [place] [address]- 9433 Sep, [facility] [place] [facility] [address] [facility] [id number] [place] [address]- 4409 Sep, [facility] [place] [facility] [address] [id number] [place] [address]- 5880 Aug, [facility] [place] [facility] [address] [id number] [place] [address]- 0211 Aug, [facility] [place] [facility] [address] [facility] [id number] [place] [address]- 2334 Aug, [facility] [place] [facility] [address] [id number] [place] [address]- 3218 Aug, [facility] [place] [facility] [address] [id number], [place] [address]- 4465 Aug, [facility] [place] [facility] [address] [id number] [place] [address]- 2763 Aug, [facility] [place] [facility] [address] [facility] [id number] [place] [address]- 8816 Aug, [facility] [place] [facility] [address] [id number], [place] [address]- 1033 Jul, [facility] [place] [facility] [address] [id number] [place] [address]- 0182 Jul, [facility] [address] [id number] [place] [address]- 7636 Jun, [facility] [address] [id number] [place] [address]- 7316 May, [facility] [address] [id number] [place] [address]- 8622 May, [facility] [address] [id number] [place] [address]- 3608 May, [facility] [address] [id number] [place] [address]- 7401 Apr, [facility] [address] [id number] [place] [address]- 2406 Apr, [facility] [address] [id number] [place] [address]- 7568 Apr, [facility] [address] [id number] [place] [address]- 0007 March, [facility] [address] [id number] [place] [address]- 0780 March, [facility] [address] [id number] [place] [address]- 3866 March, [facility] [address] [id number] [place] [address]- 9974 Feb, [facility] [address] [id number] [place] [address]- 1580 Feb, [facility] [place] [facility] [address] [id number] [place] [address]- 1005 15 Feb, 2013 [facility] [address] [id number] [place] [address]- 2611 Jan, [facility] [address] [id number] [place] [address]- 5624 19 Jan, 2013 [facility] [address] [id number] [place] [address]- 5792 18 Jan, 2013 [facility] [address] [id number] [place] [address]- 4193 15 Jan, 2013 [facility] [address] [facility] [id number] [place] [address]- 4303 14 Jan, 2013 [facility] [address] [id number] [place] [address]- 9348 12 Jan, 2013 [facility] [address] [id number] [place] [address]- 0525 05 Jan, 2013 [facility] [address] [facility] [id number] [place] [address]- 9027 28 Dec, 2012 [facility] [address] [facility] [id number] [place] [address]- 1036 18 Dec, 2012 [facility] [place] [facility] [address] [facility] [id number] [place] [address]- 0728 15 Dec, 2012 [facility] [address] [facility] [id number] [place] [address]- 7004 14 Dec, 2012 [facility] [address] [facility] [id number] [place] [address]- 3580 05 Dec, 2012 [facility] [address] [facility] [id number] [place] [address]- 5046 29 Nov, 2012 [facility] [place] [facility] [address] [id number] [place] [address]- 8736 17 Nov, 2012 [facility] [place] [facility] [address] [facility] [id number] [place] [address]- 3401 Nov, [facility] [place] [facility] [address] [facility] [id number] [place] [address]- 8703 02 Nov, 2012 [facility] [place] [facility] [address] [facility] [id number] [place] [address]- 2042 Oct, [facility] [place] [facility] [address] [id number] [place] [address]- 3675 31 Oct, 2012 [facility] [place] [facility] [address] [id number] [place] [address]- 1026 Oct, [facility] [place] [facility] [address] [id number] [place] [address]- 0256 Oct, [facility] [place] [facility] [address] [id number] [place] [address]- 0746 Oct, [facility] [place] [facility] [address] [id number] [place] [address]- 5859 Oct, [facility] [place] [facility] [address] [id number] [place] [address]- 6546 Oct, [facility] [place] [facility] [address] [id number] [place] [address]- 8941 Oct, [facility] [place] [facility] [address] [id number] [place] [address]- 9067 Oct, [facility] [place] [facility] [address] [id number] [place] [address]- 3066 16 Sep, 2012 [facility] [place] [facility] [address] [id number] [place] [address]- 3087 16 Sep, 2012 [facility] [place] [facility] [address] [id number] [place] [address]- 0531 Sep, [facility] [place] [facility] [address] [id number] [place] [address]- 8445 Sep, [facility] [place] [facility] [address] [id number] [place] [address]- 4093 Sep, [facility] [place] [facility] [address] [id number] [place] [address] Aug, [facility] [place] [facility] [address] [id number] [place] [address] Aug, [facility] [place] [facility] [address] [id number] [place] [address] 17 Aug, 2012 [facility] [place] [facility] [address] [id number] [place] [address] 17 Aug, 2012 [facility] [place] [facility] [address] [id number] [place] [address] 16 Aug, 2012 [facility] [place] [facility] [address] [id number] [place] [address] 11 Aug, 2012 [facility] [place] [facility] [address] [id number] [place] [address] 11 Aug, 2012 [facility] [place] [facility] [address] [id number] [place] [address] 10 Aug, 2012 [facility] [place] [facility] [address] [id number] [place] [address] 10 Aug, 2012 [facility] [place] [facility] [address] [id number] [place] [address] 09 Aug, 2012 [facility] [place] [facility] [address] [id number], [place] [address] 05 Aug, 2012 [facility] [place] [facility] [address] [id number], [place] [address] 04 Aug, 2012 [facility] [place] [facility] [address] [id number], [place] [address] 17 Sep, 2011 [facility] [place] [facility] [address] [id number], [place] [address] 13 Sep, 2011 [facility] [place] [facility] [address] [id number], [place] [address] 13 Sep, 2011 [facility] [place] [facility] [address] [id number], [place] [address] 11 Sep, 2011 [facility] [place] [facility] [address] [id number], [place] [address] 10 Sep, 2011 [facility] [place] [facility] [address] [id number], [place] [address] 08 Sep, 2011 [facility] [place] [facility] [address] [id number] [place] [address] 16 Jun, 2012 [facility] [place] [facility] [address] [id number] [place] [address] 14 Jun, 2012 [facility] [place] [facility] [address] [id number] [place] [address]226 17 May, 2012 [facility] [place] [facility] [address] [id number] [place] [address] 17 May, 2012 [facility] [place] [facility] [address] [id number] [place] [address]- [address]60 13 May, 2012 [facility] [place] [facility] [address] [id number] [place] [address] May, [facility] [place] [facility] [address] [id number] [place] [address] Apr, [facility] [place] [facility] [address] [id number] [place] [address] Apr, [facility] [place] [facility] [address] [id number] [place] [address] Apr, [facility] [place] [facility] [address] [id number] [place] [address] Apr, [facility] [place] [facility] [address] [id number] [place] [address] Apr, [facility] [place] [facility] [address] [id number] [place] [address] March, [facility] [place] [facility] [address] [id number] [place] [address] March, [facility] [place] [facility] [address] [id number] [place] [address] March, [facility] [place] [facility] [address] [id number] [place] [address] March, [facility] [place] [facility] [address] [id number] [place] [address] March[facility] [place] [facility] [address] [id number] [place] [id number] Feb, [facility] [address] [id number] [place] [address] Feb, [facility] [address] [id number] [place] [address] Jan, [facility] [address] [id number] [place] [address] Jan, [facility] [address] [id number] [place] [address] Jan, [facility] [address] [id number] [place] [address] Dec, [facility] [address] [id number] [place] [address] Nov, [facility] [address] [id number] [place] [address] Nov, [facility] [address] [id number] [place] [address] Nov, [facility] [address] [id number] [place] [address] Nov, [facility] [address] [id number] [place] [address] Oct, [facility] [address] [id number] [place] [address] Oct, [facility] [place] [facility] [address] [id number] [place] [address] Sep, [facility] [place] [facility] [address] [id number] [place] [address] Sep, [facility] [place] [facility] [address] [id number] [place] [address] Sep, [facility] [place] [facility] [address] [id number], [place] [address] 10 Sep, 2011 [facility] [address] [facility] [id number] [place] [address] Sep, [facility] [address] [facility] [id number], [place] [address] 16 Jun, 2011 [facility] [address] [facility] [id number] [place] [address] 15 Dec, 2010 [facility] [address] [facility] [id number], [place] [address] Sep, [facility] [address] [facility] [id number] [place] [address] Aug, [facility] [address] [facility] [id number] [place] [address] Aug, [facility] [address] [id number], [place] [address] Aug, [facility] [address] [facility] [id number], [place] [address] Aug, [facility] [address] [id number], [place] [address] Aug, [facility] [address] [facility] [id number], [place] [address] Jun, [facility] [address] [facility] [id number], [place] [address] Feb, [facility] [address] [facility] [id number], [place] [address] Sep, [facility] [address] [facility] [id number] [address] Aug, [facility] [address] [facility] [id number][place] [address] Apr, [facility] [id number], [place] [address] March, IMMUNIZATIONS No Known Immunizations SOCIAL HISTORY [...]
--- OUTSIDE RECORDS SUMMARY | 2018-06-10 19:57 | XMS REPORT ---
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 Active 07376064 Problem Panic attacks F41.0 Active 288113248 Problem Retinitis pigmentosa H35.52 Active 24209163 Problem Cervical disc disorder at C5-C6 level with radiculopathy M50.122 Active 408045181 Problem Lumbago with sciatica, right side M54.41 Active 309435721 Problem Mixed hyperlipidemia E78.2 Active 532005458 Problem Tension headache G44.209 Active 125000553 Problem Other chronic pain G89.29 Active 44637581 Problem Chest pain, unspecified type R07.9 Active 47551795 Problem Fibromyalgia M79.7 Active 449753823 Problem Low back pain M54.5 Active 786838394 Problem Major depressive disorder, recurrent episode, moderate F33.1 Active 255826126 Problem Calculus of gallbladder without cholecystitis without obstruction K80.20 Active 658830467 Problem Insomnia G47.00 Active 963323190 Problem Generalized anxiety disorder F41.1 Active 21558835 Problem Tobacco use Z72.0 Active 300802770 ALLERGIES Substance Reaction Event Type Date Status Sulfamethoxazole-Trimethoprim Unknown Drug Allergy Jul, Active Codeine Sulfate Unknown Drug Allergy Jul, Active ENCOUNTERS Encounter Location Date Diagnosis [facility] [address] [facility] [id number] [address] March, [facility] [address] [facility] [id number] [address] Feb, [facility] [address] [id number] [address] Feb, Medicare annual wellness visit, initial Z00.00 ; Type 2 diabetes mellitus with hyperglycemia, without long-term current use of insulin E11.65 ; Major depressive disorder, recurrent episode, moderate F33.1 ; Mixed hyperlipidemia E78.2 ; Fibromyalgia M79.7 ; Retinitis pigmentosa H35.52 ; Panic attacks F41.0 ; Facial skin lesion L98.9 ; Fullness of neck R22.1 and Screening for colon cancer Z12.11 [place] [id number] [place] [address] 92028- 1337 03 Feb, 2018 Type 2 diabetes mellitus with hyperglycemia, without long- term current use of insulin E11.65 [place] [id number] [place] [address] 38194- 0990 Jan, [place] [id number] [place] [address] 67376- 5802 Jan, Asymptomatic microscopic hematuria R31.21 ; Chest pain, unspecified type R07.9 and Generalized anxiety disorder F41.1 [place] [id number] [place] [address] 20898- 4114 Jan, [place] [id number] [place] [address] 99763- 7276 Jan, [facility] [address] [place] [address]257 [address]23 Dec, [facility] [id number] [place] [address] 68030- 9853 Dec, [place] [id number] [place] [address] 00037- 5993 Dec, [place] [id number] [place] [address] [id number]- 5989 Dec, [place] [id number] [place] [address] 38488- 0474 Dec, [place] [id number] [place] [address] 91251- 6166 13 Dec, 2017 Tension headache G44.209 [place] [address] 76808- 5820 09 Dec, 2017 Elevated LFTs R79.89 ; Type 2 diabetes mellitus with hyperglycemia, without long-term current use of insulin E11.65 ; Abdominal bloating R14.0 and Other fatigue R53.83 [place] [address] 56248- 8328 08 Dec, 2017 Elevated ALT measurement R74.0 [place] [address] 82907- 5545 Nov, Type 2 diabetes mellitus with hyperglycemia, without long- term current use of insulin E11.65 and Mixed hyperlipidemia E78.2 [place] [address] 60598- 5043 Oct, [place] [address] 76175- 4622 Oct, Elevated ALT measurement R74.0 [place] [address] 53764- 0651 Oct, [place] [id number] [place] [address] 89708- 4727 Oct, [place] [address] 74031- 0956 Oct, Breast cancer screening Z12.31 [place] [address] 01189- 5678 Sep, Tension headache G44.209 ; Cervical disc disorder at C5-C6 level with radiculopathy M50.122 ; Other fatigue R53.83 ; Breast pain, left N64.4 ; Vertigo R42 and Abnormal tympanic membrane of left ear H73.92 [facility] [address] 63130 -5961 Sep, Screening breast examination Z12.39 [place] [address] 09180- 3619 Sep, [place] [address] 11083- 0166 Sep, Mixed hyperlipidemia E78.2 and Type 2 diabetes mellitus with hyperglycemia, without long-term current use of insulin E11.65 [place] [address] 16260- 7926 Jul, [place] [address] 91570- 5900 Jul, Lumbago with sciatica, right side M54.41 and Other chronic pain G89.29 [place] [address] 50601- 8151 May, Type 2 diabetes mellitus with hyperglycemia, without long- term current use of insulin E11.65 ; Low back pain M54.5 ; Tobacco use Z72.0 ; Mixed hyperlipidemia E78.2 ; Lateral epicondylitis of right elbow M77.11 and 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 [address] [place] [address] 35940- 2682 March, [facility] [id number] [place] [address] 93274- 2974 March, [facility] [id number] [place] [address] 55575- 4658 Feb, [facility] [id number] [place] [address] 96718- 0250 Feb, [facility] [id number] [place] [address] 77709- 9756 Feb, [facility] [id number] [place] [address] 72895- 0209 Feb, Low back pain M54.5 and Pain in thoracic spine M54.6 [place] [id number] [place] [address] 44329- 5572 Jan, Panic attacks F41.0 ; Type 2 diabetes mellitus with hyperglycemia, without long-term current use of insulin E11.65 and Other chest pain R07.89 [place] [id number] [place] [address] 18794- 2664 Jan, [facility] [id number] [place] [address] 72712- 6103 Jan, Type 2 diabetes mellitus with hyperglycemia, without long- term current use of insulin E11.65 [facility] [id number] [place] [address] 38317- 9762 Jan, Pain in thoracic spine M54.6 [facility] [id number] [place] [address] 90558- 5191 Jan, Type 2 diabetes mellitus with hyperglycemia, without long- term current use of insulin E11.65 and Elevated liver enzymes R74.8 [facility] [id number] [place] [address] 98811- 2225 Jan, [facility] [id number] [place] [address] 90092- 5717 Dec, Tobacco use Z72.0 ; Prediabetes R73.09 ; Elevated liver enzymes R74.8 ; Elevated fasting glucose R73.01 ; Elevated ALT measurement R74.0 ; Pain in thoracic spine M54.6 ; Panic attacks F41.0 and Type 2 diabetes mellitus with hyperglycemia, without long-term current use of insulin E11.65 [facility] [address] 26148 -9854 Jun, Abdominal pain, right upper quadrant R10.11 [facility] [address] 28286- 1073 Jun, [place] [address] 62271- 7504 Jun, [place] [address] 54374- 1879 Jun, [place] [address] 78178- 0445 May, Routine gynecological examination Z01.419 ; Encounter for Papanicolaou smear for cervical cancer screening Z12.4 ; Screening breast examination Z12.39 ; Vaginal discharge N89.8 and Candidal vaginitis B37.3 [place] [id number] [place] [address] 66166- 7293 May, [place] [address] 35584- 0968 May, Prediabetes R73.09 ; Elevated ALT measurement R74.0 ; Elevated fasting glucose R73.01 and Palpitations R00.2 [place] [address] 97969- 3065 Feb, [place] [address] 93418- 8134 Feb, [place] [address] 36332- 6554 Feb, Generalized anxiety disorder F41.1 and Major depressive disorder, recurrent episode, moderate F33.1 [facility] [id number] [place] [address] 96183- 2108 Feb, Generalized anxiety disorder F41.1 ; Low back pain M54.[address] [facility] [id number] [place] [address] 48494- 5181 Jan, Elevated fasting glucose R73.01 and Elevated ALT measurement R74.0 [facility] [address] 27745- 5457 Jan, Generalized anxiety disorder F41.1 ; Low back pain M54.5 and Screening cholesterol level Z13.220 [facility] [address] 88379- 1190 04 Dec, 2015 Scoliosis M41.[address] [facility] [address] 95651- 1317 Feb, [facility] [id number] [place] [address] 94962- 5045 Feb, [facility] [id number] [place] [address] 73483- 9493 Apr, [facility] [id number] [place] [address] 94293- 5918 March, [facility] [id number] [place] [address] 96690- 3186 March, [facility] [id number] [place] [address] 42844- 1087 March, [facility] [id number] [place] [address] 13818- 6006 March, [facility] [id number] [place] [address] 75500- 8161 March, [facility] [id number] [place] [address] 62651- 0906 March, [facility] [place] [facility] [address] [id number] [place] [address]- 1199 March, [facility] [place] [facility] [address] [id number] [place] [address]- 1097 March, [facility] [place] [facility] [address] [id number] [place] [address]- 8531 Feb, [facility] [place] [facility] [address] [id number] [place] [address]- 8899 Feb, [facility] [place] [facility] [address] [id number] [place] [address]- 5450 Feb, [facility] [place] [facility] [address] [id number] [place] [address]- 1177 Feb, [facility] [place] [facility] [address] [id number] [place] [address]- 4691 Jan, [facility] [place] [facility] [address] [id number] [place] [address]- 8077 Jan, [facility] [place] [facility] [address] [id number] [place] [address]- 0199 Jan, [facility] [place] [facility] [address] [id number] [place] [address]- 8594 Jan, [facility] [place] [facility] [address] [id number] [place] [address]- 6249 Jan, [facility] [place] [facility] [address] [id number] [place] [address]- 8180 Jan, [facility] [place] [facility] [address] [id number] [place] [address]- 0516 Jan, [facility] [place] [facility] [address] [id number] [place] [address]- 1345 Dec, [facility] [place] [facility] [address] [id number] [place] [address]- 6139 Dec, [facility] [place] [facility] [address] [id number] [place] [address]- 2888 Dec, [facility] [address] [id number] [place] [address]- 4646 Dec, [facility] [place] [facility] [address] [id number] [place] [address]- 4476 Dec, [facility] [place] [facility] [address] [id number] [place] [address]- 5426 Dec, [facility] [place] [facility] [address] [id number] [place] [address]- 5820 Nov, [facility] [place] [facility] [address] [id number] [place] [address]- 1288 Nov, [facility] [place] [facility] [address] [id number] [place] [address]- 4247 Nov, [facility] [place] [facility] [address] [id number] [place] [address]- 0366 Nov, [facility] [address] [id number] [place] [address]- 6471 Nov, [facility] [place] [facility] [address] [id number] [place] [address]- 7562 Nov, [facility] [place] [facility] [address] [facility] [id number] [place] [address]- 8646 Nov, [facility] [place] [facility] [address] [id number] [place] [address]- 9738 Oct, [facility] [place] [facility] [address] [id number] [place] [address]- 5994 Oct, [facility] [place] [facility] [address] [id number] [place] [address]- 2708 Oct, [facility] [place] [facility] [address] [id number] [place] [address]- 0606 Oct, [facility] [place] [facility] [address] [id number] [place] [address]- 9435 Sep, [facility] [place] [facility] [address] [id number] [place] [address]- 9799 Sep, [facility] [place] [facility] [address] [id number] [place] [address]- 7076 Sep, [facility] [place] [facility] [address] [id number] [place] [address]- 1727 Sep, [facility] [place] [facility] [address] [id number] [place] [address]- 4937 Sep, [facility] [place] [facility] [address] [id number] [place] [address]- 6976 Sep, [facility] [place] [facility] [address] [id number] [place] [address]- 4583 Aug, [facility] [place] [facility] [address] [id number] [place] [address]- 0628 Aug, [facility] [place] [facility] [address] [id number] [address]- 9838 Aug, [facility] [place] [facility] [address] [id number] [place] [address]- 4818 Aug, [facility] [place] [facility] [address] [id number] [address]- 3258 Aug, [facility] [place] [facility] [address] [id number] [address]- 4199 Aug, [facility] [place] [facility] [address] [id number] [place] [address]- 9843 Aug, [facility] [place] [facility] [address] [id number] [place] [address]- 4265 Jul, [facility] [place] [facility] [address] [id number] [place] [address]- 7891 Jul, [facility] [place] [facility] [address] [id number] [place] [address]- 7321 Jun, [facility] [place] [facility] [address] [id number] [place] [address]- 0274 18 May, 2013 [facility] [address] [id number] [place] [address]- 5821 11 May, 2013 [facility] [address] [id number] [place] [address]- 1571 10 May, 2013 [facility] [address] [id number] [place] [address]- 9094 Apr, [facility] [address] [id number] [place] [address]- 7770 Apr, [facility] [address] [id number] [place] [address]- 6255 Apr, [facility] [address] [id number] [place] [address]- 2127 March, [facility] [address] [id number] [place] [address]- 8858 March, [facility] [address] [id number] [place] [address]- 8773 March, [facility] [address] [id number] [place] [address]- 6763 Feb, [facility] [address] [id number] [place] [address]- 8985 Feb, [facility] [address] [id number] [place] [address]- 7129 15 Feb, 2013 [facility] [address] [id number] [place] [address]- 5410 28 Jan, 2013 [facility] [place] [facility] [address] [id number] [place] [address]- 7120 19 Jan, 2013 [facility] [place] [facility] [address] [id number] [place] [address]- 8929 18 Jan, 2013 [facility] [address] [id number] [place] [address]- 6960 15 Jan, 2013 [facility] [address] [id number] [place] [address]- 4173 14 Jan, 2013 [facility] [place] [facility] [address] [id number] [place] [address]- 5047 12 Jan, 2013 [facility] [place] [facility] [address] [id number] [place] [address]- 3422 05 Jan, 2013 [facility] [place] [facility] [address] [id number] [place] [address]- 2198 28 Dec, 2012 [facility] [place] [facility] [address] [id number] [place] [address]- 1620 18 Dec, 2012 [facility] [place] [facility] [address] [id number] [place] [address]- 8276 15 Dec, 2012 [facility] [place] [facility] [address] [id number] [place] [address]- 1025 14 Dec, 2012 [facility] [place] [facility] [address] [id number] [place] [address]- 2181 05 Dec, 2012 [facility] [place] [facility] [address] [id number] [place] [address]- 0461 Nov, [facility] [place] [facility] [address] [id number] [place] [address]- 9951 Nov, [facility] [place] [facility] [address] [id number] [place] [address]- 7914 Nov, [facility] [place] [facility] [address] [id number] [place] [address]- 2659 Nov, [facility] [place] [facility] [address] [id number] [place] [address]- 0368 Oct, [facility] [place] [facility] [address] [id number] [place] [address]- 7126 Oct, [facility] [place] [facility] [address] [id number] [place] [address]- 8053 Oct, [facility] [place] [facility] [address] [id number] [place] [address]- 3046 18 Oct, 2012 [facility] [place] [facility] [address] [id number] [place] [address]- 0630 Oct, [facility] [place] [facility] [address] [facility] [id number] [place]- 5422 12 Oct, 2012 [facility] [place] [facility] [address] [facility] [id number] [place] [address]- 3846 10 Oct, 2012 [facility] [place] [facility] [address] [id number] [place] [address]- 6868 10 Oct, 2012 [facility] [place] [facility] [address] [facility] [id number] [place] 4857 Oct, [facility] [place] [facility] [address] [facility] [id number] [place] [address]- 0231 Sep, [facility] [place] [facility] [address]65[address] [address]- 4310 Sep, [facility] [place] [facility] [address] [facility] [id number] [place] [address]- 7811 Sep, [facility] [place] [facility] [address] [id number] [place] [address]- 6284 Sep, [facility] [place] [facility] [address] [facility] [id number] [place] [address]- 6467 Sep, [facility] [place] [facility] [address] [facility] [id number] [place] [address]- 6662 Aug, [facility] [place] [facility] [address] [facility] [id number] [place] [address]- 9431 Aug, [facility] [place] [facility] [address] [facility] [id number] [place] [address]- 8172 Aug, [facility] [place] [facility] [address] [facility] [id number] [place] [address]- 2659 Aug, [facility] [place] [facility] [address] [facility] [id number] [address]- 8604 Aug, [facility] [place] [facility] [address] [id number] [place] [address]- 3158 11 Aug, 2012 [facility] [place] [facility] [address] [id number] [place] [address]- 7988 11 Aug, 2012 [facility] [place] [facility] [address] [id number] [place] [address] 10 Aug, 2012 [facility] [place] [facility] [address] [id number] [place] [address] 10 Aug, 2012 [facility] [place] [facility] [address] [id number] [place] [address] 09 Aug, 2012 [facility] [place] [facility] [address] [id number] [place] [address] 05 Aug, 2012 [facility] [place] [facility] [address] [id number] [place] [address] 04 Aug, 2012 [facility] [place] [facility] [address] [id number] [place] [address] 47[address] 17 Jul, 2012 [facility] [place] [facility] [address] [id number] [place] [address] 13 Jul, 2012 [facility] [place] [facility] [address] [id number] [place] [address] 13 Jul, 2012 [facility] [place] [facility] [address] [id number] [place] [address] 11 Jul, 2012 [facility] [place] [facility] [address] [id number] [place] [address]- [address] 10 Jul, 2012 [facility] [place] [facility] [address] [id number] [place] [address] 08 Jul, 2012 [facility] [place] [facility] [address] [id number] [place] [address] 4726 16 Jun, 2012 [facility] [place] [facility] [address] [id number] [place] [address]- 6560 14 Jun, 2012 [facility] [place] [facility] [address] [id number] [place] [address]- [address]79 17 May, 2012 [facility] [place] [facility] [address] [id number] [place] [address] 1507 17 May, 2012 [facility] [place] [facility] [address] [id number] [place] [address] 13 May, 2012 [facility] [place] [facility] [address] [id number] [place] [address] May, [facility] [place] [facility] [address] [id number] [place] [address] Apr, [facility] [place] [facility] [address] [id number] [place] [address] Apr, [facility] [place] [facility] [address] [id number] [place] [address] Apr, [facility] [place] [facility] [address] [id number] [place] [address] 8364 Apr, [facility] [place] [facility] [address] [id number] [place] [address] Apr, [facility] [place] [facility] [address] [id number] [place] [address] March, [facility] [place] [facility] [address] [id number] [place] [address] March, [facility] [place] [facility] [address] [id number] [place] [address] March, [facility] [place] [facility] [address] [id number] [place] [address] March, [facility] [place] [facility] [address] [id number] [place] [address] March, [facility] [place] [facility] [address] [id number] [place] [address] 24 Feb, 2012 [facility] [place] [facility] [address] [id number] [place] [address] Feb, [facility] [place] [facility] [address] [id number] [place] [address] 27 Jan, 2012 [facility] [address] [id number] [place] [address] Jan, [facility] [place] [facility] [address] [id number] [place] [address] Jan, [facility] [place] [facility] [address] [id number] [place] [address] 28 Dec, 2011 [facility] [place] [facility] [address] [id number] [place] [address] Nov, [facility] [place] [facility] [address] [id number] [place] [address] Nov, [facility] [place] [facility] [address] [id number] [place] [address] 94[address] Nov, [facility] [address] [id number] [place] [address] Nov, [facility] [place] [facility] [address] [id number] [place] [address] Oct, [facility] [place] [facility] [address] [id number] [place] [address] Oct, [facility] [place] [facility] [address] [id number] [place] [address] Sep, [facility] [place] [facility] [address] [id number] [place] [address] Sep, [facility] [place] [facility] [address] [id number] [place] [address]- [address] Sep, [facility] [place] [facility] [address] [id number] [place] [address]- 279[address] 10 Sep, 2011 [facility] [place] [facility] [address] [id number] [place] [address]- [address] 08 Sep, 2011 [facility] [place] [facility] [address] [id number] [place] [address] Jun, [facility] [address] [facility] [id number] [address] Dec, [facility] [id number] [address] Sep, [facility] [address] [id number] [address] Aug, [facility] [address] [facility] [id number] [address] Aug, [facility] [address] [facility] [id number] [address] Aug, [facility] [address] [id number] [address] Aug, [facility] [id number] [address] Aug, [facility] [id number] [address] Jun, [facility] [id number] [address] Feb, [facility] [address] [id number] [address] Sep, [facility] [address] [id number] [address] Aug, [facility] [address] [id number] [address] Apr, [facility] [address] [id number] [address] March, IMMUNIZATIONS No Known Immunizations SOCIAL HISTORY Never Assessed REASON FOR VISIT joint Pain -- osvaldo lieberman PLAN OF CARE Activity Details Follow Up prn Reason: VITAL SIGNS Height 61 in 2017-07-12 Weight 165.0 lbs 2017-07-12 Temperature 97.0 degrees Fahrenheit 2017-07-12 Heart Rate 78 bpm 2017-07-12 Respiratory Rate 18 2017-07-12 BMI 31.17 kg/m2 2017-07-12 Blood pressure systolic 120 mmHg 2017-07-12 Blood pressure diastolic 76 mmHg 2017-07-12 MEDICATIONS Medication Instructions Dosage Frequency Start Date End Date Duration Status Rosuvastatin Calcium 20 mg Orally Once a day 1 tablet 24h March, Active Blood Glucose Test - and Lancets ICD10- E11.65 2 times a day- 3 times weekly as directed Jan, Active Lyrica 75 MG Orally Twice a day 1 capsule 12h Jul, 30 days Active Blood Glucose Monitor System w/Device ICD10- E11.65 2 times a day -3 times weekly. as directed Jan, Active Metformin HCl 500 MG Orally Twice a day 1 tablet with meals 12h 30 days Active RESULTS No Results PROCEDURES Procedure Date Ordered Result Body Site [facility] VISIT ESTABLISHED PATIENT Jul 12, 2017 INSTRUCTIONS MEDICATIONS ADMINISTERED No Known Medications MEDICAL (GENERAL) HISTORY Type Description Date Medical History Scoliosis Medical History Bipolar Surgical History right hip replacement Surgical History c-sections x4 Hospitalization History Pneumonia 2011
--- OUTSIDE RECORDS SUMMARY | 2018-06-10 19:58 | XMS REPORT ---
Author Author ASHOK ROMY [facility] Address [address] [place] [address] Care Team Providers Care Chargemaster Analyst Name Role Phone PHILLIP PULIDOHANY Unavailable PROBLEMS Type Condition ICD9-CM Code IVL04-SC Code Onset Dates Condition Status SNOMED Code Problem Panic attacks F41.0 Active 731247420 Problem Mixed hyperlipidemia E78.2 Active 628609831 Problem 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 Active 30124128 Problem Anxiety state, unspecified F41.1 Active 712583987 Problem Retinitis pigmentosa H35.52 Active 39689269 Problem Other chronic pain G89.29 Active 49485031 Problem Lumbago with sciatica, right side M54.41 Active 686273820 Problem Cervical disc disorder at C5-C6 level with radiculopathy M50.122 Active 915003615 Problem Tension headache G44.209 Active 348516917 Problem Fibromyalgia M79.7 Active 937499031 Problem Calculus of gallbladder without cholecystitis without obstruction K80.20 Active 032843791 Problem Chest pain, unspecified type R07.9 Active 87496742 Problem Major depressive disorder, recurrent episode, moderate F33.1 Active 835363038 Problem Insomnia G47.00 Active 741932842 Problem Generalized anxiety disorder F41.1 Active 77153597 Problem Tobacco use Z72.0 Active 028580408 Problem Low back pain M54.5 Active 718452689 Problem Type 2 diabetes mellitus with hyperglycemia, without long-term current use of insulin E11.65 Active 28896479 ALLERGIES No Information ENCOUNTERS Encounter Location Date Diagnosis [facility] [address] [facility] [id number], [place] [address] Jun, [facility] [address] [facility] [id number], [place] [address] Apr, Type 2 diabetes mellitus with hyperglycemia, without long- term current use of insulin E11.65 [place] [id number] [place] [address] 39517- 2616 March, Anxiety state, unspecified F41.1 [place] [address] [place] [id number] [place] [address] 65004- 0036 Feb, [place] [address] [place] [id number] [place] [address] 23494- 4636 Feb, Medicare annual wellness visit, initial Z00.00 ; Type 2 diabetes mellitus with hyperglycemia, without long-term current use of insulin E11.65 ; Major depressive disorder, recurrent episode, moderate F33.1 ; Mixed hyperlipidemia E78.2 ; Fibromyalgia M79.7 ; Retinitis pigmentosa H35.52 ; Panic attacks F41.0 ; Facial skin lesion L98.9 ; Fullness of neck R22.1 and Screening for colon cancer Z12.11 [place] [address] [place] [id number] [place] [address] 20855- 8170 Feb, Type 2 diabetes mellitus with hyperglycemia, without long- term current use of insulin E11.65 [place] [address] [place] [id number] [place] [address] 09889- 8134 Jan, [place] [address] [place] [id number] [place] [address] 19342- 5916 Jan, Asymptomatic microscopic hematuria R31.21 ; Chest pain, unspecified type R07.9 and Generalized anxiety disorder F41.1 [place] [address] [place] [id number] [place] [address] 96289- 3154 Jan, [place] [address] [place] [id number] [place] [address] 76958- 8079 Jan, [facility] [address] [place] [id number] [place] [address] 88674 -5087 Dec, [facility] [address] [place] [id number] [place] [address] 22054- 1181 Dec, [place] [address] [place] [id number] [place] [address] 70289- 1843 Dec, [place] [address] [place] [id number] [place] [address] 07323- 8896 Dec, [place] [address] 73708- 5806 14 Dec, 2017 [place] [address] 36643- 3543 Dec, Tension headache G44.209 [place] [address] 72905- 6972 Dec, Elevated LFTs R79.89 ; Type 2 diabetes mellitus with hyperglycemia, without long-term current use of insulin E11.65 ; Abdominal bloating R14.0 and Other fatigue R53.83 [place] [address] [place] [id number] [place] [address] 97119- 4975 08 Dec, 2017 Elevated ALT measurement R74.0 [place] [address] 98393- 5515 Nov, Type 2 diabetes mellitus with hyperglycemia, without long- term current use of insulin E11.65 and Mixed hyperlipidemia E78.2 [place] [address] 79297- 1190 Oct, [place] [address] [place] [id number] [place] [address] 19357- 3052 Oct, Elevated ALT measurement R74.0 [place] [address] 42226- 3501 Oct, [place] [address] 29291- 4192 Oct, [place] [address] 26801- 2333 Oct, Breast cancer screening Z12.31 [place] [address] 89034- 4687 Sep, Tension headache G44.209 ; Cervical disc disorder at C5-C6 level with radiculopathy M50.122 ; Other fatigue R53.83 ; Breast pain, left N64.4 ; Vertigo R42 and Abnormal tympanic membrane of left ear H73.92 [facility] [place] [address] [place] [id number] [place] [address] 23880 -8987 Sep, Screening breast examination Z12.[address] 13447- 2297 Sep, [place] [address] 20594- 2748 Sep, Mixed hyperlipidemia E78.2 and Type 2 diabetes mellitus with hyperglycemia, without long-term current use of insulin E11.65 [place] [address] 12287- 5773 Jul, [address] 72049- 1302 Jul, Lumbago with sciatica, right side M54.41 and Other chronic pain G89.[address] 78562- 2359 May, Type 2 diabetes mellitus with hyperglycemia, without long- term current use of insulin E11.65 ; Low back pain M54.5 ; Tobacco use Z72.0 ; Mixed hyperlipidemia E78.2 ; Lateral epicondylitis of right elbow M77.11 and 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 [place] [address] 99002- 1579 Apr, [place] [address] 24776- 7464 Apr, Low back pain M54.[address] 71411- 6690 Apr, Pain in thoracic spine M54.6 [facility] [address] 86974 -5544 March, Lumbosacral neuritis M54.17 [facility] [address] [address] 0805 March, Low back pain M54.5 [facility] [address] [place] [id number] [place] [address] 92201- 9033 March, [facility] [address] [place] [id number] [place] [address] 37349- 0157 March, [facility] [address] [place] [id number] [place] [address] 20121- 1125 March, [facility] [address] [place] [id number] [place] [address] 31839- 1382 Feb, [facility] [address] [place] [id number] [place] [address] 10025- 2385 Feb, [facility] [address] [place] [id number] [place] [address] 27176- 0868 Feb, [facility] [address] [place] [id number] [place] [address] 23785- 2023 Feb, Low back pain M54.5 and Pain in thoracic spine M54.6 [facility] [address] [place] [id number] [place] [address] 92385- 5098 Jan, Panic attacks F41.0 ; Type 2 diabetes mellitus with hyperglycemia, without long-term current use of insulin E11.65 and Other chest pain R07.89 [facility] [id number] [place] [address] 99231- 7635 Jan, [facility] [id number] [place] [address] 84834- 3591 Jan, Type 2 diabetes mellitus with hyperglycemia, without long- term current use of insulin E11.65 [facility] [id number] [place] [address] 05285- 5696 Jan, Pain in thoracic spine M54.6 [facility] [address] [place] [address] 86534- 3869 Jan, Type 2 diabetes mellitus with hyperglycemia, without long- term current use of insulin E11.65 and Elevated liver enzymes R74.8 [facility] [address] [place] [id number] [place] [address] 40149- 6473 Jan, [facility] [address] [place] [id number] [place] [address] 31028- 0618 Dec, Tobacco use Z72.0 ; Prediabetes R73.09 ; Elevated liver enzymes R74.8 ; Elevated fasting glucose R73.01 ; Elevated ALT measurement R74.0 ; Pain in thoracic spine M54.6 ; Panic attacks F41.0 and Type 2 diabetes mellitus with hyperglycemia, without long-term current use of insulin E11.65 [facility] [address] [place] [id number] [place] [address] 65663 -0842 Jun, Abdominal pain, right upper quadrant R10.11 [place] [address] [place] [id number] [place] [address] 41514- 2345 Jun, [place] [address] [place] [id number] [place] [address] 12173- 2698 Jun, [place] [address] [place] [id number] [place] [address] 98813- 2009 Jun, [place] [address] [place] [id number] [place] [address] 57948- 9297 May, Routine gynecological examination Z01.419 ; Encounter for Papanicolaou smear for cervical cancer screening Z12.4 ; Screening breast examination Z12.39 ; Vaginal discharge N89.8 and Candidal vaginitis B37.3 [facility] [address] [place] [id number] [place] [address] 07161- 7298 May, [place] [address] [place] [id number] [place] [address] 35329- 4629 May, Prediabetes R73.09 ; Elevated ALT measurement R74.0 ; Elevated fasting glucose R73.01 and Palpitations R00.2 [place] [address] [place] [id number] [place] [address] 42699- 5738 Feb, [facility] [address] [place] [id number] [place] [address] 50036- 5535 Feb, [facility] [address] [place] [id number] [place] [address] 51889- 1510 Feb, Generalized anxiety disorder F41.1 and Major depressive disorder, recurrent episode, moderate F33.1 [facility] [address] [place] [id number] [place] [address] 16430- 6314 Feb, Generalized anxiety disorder F41.1 ; Low back pain M54.5 and Insomnia G47.00 [place] [address] 88478- 9627 Jan, Elevated fasting glucose R73.01 and Elevated ALT measurement R74.0 [place] [address] [place] [id number] [place] [address] 99310- 2471 Jan, Generalized anxiety disorder F41.1 ; Low back pain M54.5 and Screening cholesterol level Z13.220 [place] [address] [place] [id number] [place] [address] 51922- 7780 Dec, Scoliosis M41.9 and Anxiety F41.9 [place] [address] [place] [id number] [place] [address] 89325- 0743 Feb, [facility] [address] [place] [id number] [place] [address] 50210- 3934 Feb, [facility] [address] [place] [id number] [place] [address] 14955- 1575 Apr, [facility] [address] [place] [id number] [place] [address] 86780- 9766 March, [facility] [address] [place] [id number] [place] [address] 70431- 9030 March, [facility] [address] [place] [address] 97436- 1618 March, [facility] [address] [place] [id number] [place] [address]- 5205 March, [facility] [address] [id number] [place] [address]- 0859 March, [facility] [address] [id number] [place]071 March, [facility] [address] [id number] [place] [address]- 7164 March, [facility] [address] [id number] [place] [address]- 2029 March, [facility] [address] [id number] [place] [address]- 7203 Feb, [facility] [address] [id number] [place] [address]- 2585 Feb, [facility] [address] [id number] [place] [address]- 8192 Feb, [facility] [address] [id number] [place] [address]- 4160 Feb, [facility] [address] [id number] [place] [address]- 7110 Jan, [facility] [address] [id number] [place] [address]- 1912 Jan, [facility] [place] [facility] [address] [id number] [place] [address]- 0763 Jan, [facility] [place] [facility] [address] [id number] [place] [address]- 4276 Jan, [facility] [place] [facility] [address] [id number] [place] [address]- 2828 Jan, [facility] [place] [facility] [address] [id number] [place] [address]- 4850 Jan, [facility] [place] [facility] [address] [id number] [place] [address]- 8701 Jan, [facility] [place] [facility] [address] [id number] [place] [address]- 6866 Dec, [facility] [place] [facility] [address] [id number] [place] [address]- 9178 Dec, [facility] [place] [facility] [address] [id number] [place] [address]- 0326 Dec, [facility] [place] [facility] [address] [id number] [place] [address]- 5222 Dec, [facility] [place] [facility] [address] [id number] [place] [address]- 5084 Dec, [facility] [place] [facility] [address] [id number] [place] [address]- 7756 Dec, [facility] [place] [facility] [address] [id number] [place] [address]- 5380 Nov, [facility] [place] [facility] [address] [id number] [place] [address]- 9956 Nov, [facility] [place] [facility] [address] [id number] [place] [address]- 9053 Nov, [facility] [place] [facility] [address] [id number] [place] [address]- 0033 Nov, [facility] [place] [facility] [address] [id number], [place] [address]- 7063 Nov, [facility] [place] [facility] [address] [id number], [place] [address]- 6632 Nov, [facility] [place] [facility] [address] [id number] [place] [address]- 4551 Nov, [facility] [place] [facility] [address] [id number], [place] [address]- 2122 Oct, [facility] [place] [facility] [address] [id number] [place] [address]- 6456 Oct, [facility] [place] [facility] [address] [id number] [place] [address]- 6471 Oct, [facility] [place] [facility] [address] [id number] [place] 7254 Oct, [facility] [place] [facility] [address] [id number] [place] [address]- 5386 Sep, [facility] [place] [facility] [address] [id number] [place] [address]- 2574 Sep, [facility] [place] [facility] [address] [id number] [place] [address]- 2425 Sep, [facility] [place] [facility] [address] [id number] [place] [address] Sep, [facility] [place] [facility] [address] [id number] [place] [address]- 1104 Sep, [facility] [place] [facility] [address] [facility] [id number] [place] [address]- 5763 Sep, [facility] [place] [facility] [address] [id number] [place] [address]- 9663 Aug, [facility] [place] [facility] [address] [id number] [place] [address]- 6719 Aug, [facility] [place] [facility] [address] [facility] [id number] [place] [address]- 5887 Aug, [facility] [place] [facility] [address] [id number] [place] [address]- 3201 Aug, [facility] [place] [facility] [address] [id number], [place] [address]- 2387 Aug, [facility] [place] [facility] [address] [id number] [place] [address]- 8236 Aug, [facility] [place] [facility] [address] [facility] [id number] [place] [address]- 1834 Aug, [facility] [place] [facility] [address] [id number], [place] [address]- 7650 Jul, [facility] [place] [facility] [address] [id number] [place] [address]- 8310 Jul, [facility] [address] [id number] [place] [address]- 3306 Jun, [facility] [address] [id number] [place] [address]- 2541 May, [facility] [address] [id number] [place] [address]- 6702 May, [facility] [address] [id number] [place] [address]- 1340 May, [facility] [address] [id number] [place] [address]- 0544 Apr, [facility] [address] [id number] [place] [address]- 7162 Apr, [facility] [address] [id number] [place] [address]- 6272 Apr, [facility] [address] [id number] [place] [address]- 3442 March, [facility] [address] [id number] [place] [address]- 5490 March, [facility] [address] [id number] [place] [address]- 6473 March, [facility] [address] [id number] [place] [address]- 1112 Feb, [facility] [address] [id number] [place] [address]- 1655 Feb, [facility] [place] [facility] [address] [id number] [place] [address]- 6076 15 Feb, 2013 [facility] [address] [id number] [place] [address]- 3578 Jan, [facility] [address] [id number] [place] [address]- 8291 19 Jan, 2013 [facility] [address] [id number] [place] [address]- 0282 18 Jan, 2013 [facility] [address] [id number] [place] [address]- 9885 15 Jan, 2013 [facility] [address] [facility] [id number] [place] [address]- 0272 14 Jan, 2013 [facility] [address] [id number] [place] [address]- 6640 12 Jan, 2013 [facility] [address] [id number] [place] [address]- 9763 05 Jan, 2013 [facility] [address] [facility] [id number] [place] [address]- 3227 28 Dec, 2012 [facility] [address] [facility] [id number] [place] [address]- 5524 18 Dec, 2012 [facility] [place] [facility] [address] [facility] [id number] [place] [address]- 2097 15 Dec, 2012 [facility] [address] [facility] [id number] [place] [address]- 2445 14 Dec, 2012 [facility] [address] [facility] [id number] [place] [address]- 6348 05 Dec, 2012 [facility] [address] [facility] [id number] [place] [address]- 6370 29 Nov, 2012 [facility] [place] [facility] [address] [id number] [place] [address]- 0296 17 Nov, 2012 [facility] [place] [facility] [address] [facility] [id number] [place] [address]- 4166 Nov, [facility] [place] [facility] [address] [facility] [id number] [place] [address]- 0654 02 Nov, 2012 [facility] [place] [facility] [address] [facility] [id number] [place] [address]- 8177 Oct, [facility] [place] [facility] [address] [id number] [place] [address]- 1503 31 Oct, 2012 [facility] [place] [facility] [address] [id number] [place] [address]- 0006 Oct, [facility] [place] [facility] [address] [id number] [place] [address]- 6496 Oct, [facility] [place] [facility] [address] [id number] [place] [address]- 6936 Oct, [facility] [place] [facility] [address] [id number] [place] [address]- 6214 Oct, [facility] [place] [facility] [address] [id number] [place] [address]- 9366 Oct, [facility] [place] [facility] [address] [id number] [place] [address]- 1472 Oct, [facility] [place] [facility] [address] [id number] [place] [address]- 4199 Oct, [facility] [place] [facility] [address] [id number] [place] [address]- 0655 16 Sep, 2012 [facility] [place] [facility] [address] [id number] [place] [address]- 4193 16 Sep, 2012 [facility] [place] [facility] [address] [id number] [place] [address]- 4031 Sep, [facility] [place] [facility] [address] [id number] [place] [address]- 1029 Sep, [facility] [place] [facility] [address] [id number] [place] [address]- 7601 Sep, [facility] [place] [facility] [address] [id number] [place] [address] Aug, [facility] [place] [facility] [address] [id number] [place] [address] Aug, [facility] [place] [facility] [address] [id number] [place] [address] 17 Aug, 2012 [facility] [place] [facility] [address] [id number] [place] [address] 17 Aug, 2012 [facility] [place] [facility] [address] [id number] [place] [address] 16 Aug, 2012 [facility] [place] [facility] [address] [id number] [place] [address]46 11 Aug, 2012 [facility] [place] [facility] [address] [id number] [place] [address] 11 Aug, 2012 [facility] [place] [facility] [address] [id number] [place] [address]68 10 Aug, 2012 [facility] [place] [facility] [address] [id number] [place] [address] 10 Aug, 2012 [facility] [place] [facility] [address] [id number] [place] [address] 09 Aug, 2012 [facility] [place] [facility] [address] [id number], [place] [address] 05 Aug, 2012 [facility] [place] [facility] [address] [id number], [place] [address] 04 Aug, 2012 [facility] [place] [facility] [address] [id number], [place] [address] 17 Sep, 2011 [facility] [place] [facility] [address] [id number], [place] [address] 13 Sep, 2011 [facility] [place] [facility] [address] [id number], [place] [address] 13 Sep, 2011 [facility] [place] [facility] [address] [id number], [place] [address] 11 Sep, 2011 [facility] [place] [facility] [address] [id number], [place] [address] 10 Sep, 2011 [facility] [place] [facility] [address] [id number], [place] [address] 08 Sep, 2011 [facility] [place] [facility] [address] [id number] [place] [address] 16 Jun, 2012 [facility] [place] [facility] [address] [id number] [place] [address] 14 Jun, 2012 [facility] [place] [facility] [address] [id number] [place] [address] 17 May, 2012 [facility] [place] [facility] [address] [id number] [place] [address] 17 May, 2012 [facility] [place] [facility] [address] [id number] [place] [address]- [address] 13 May, 2012 [facility] [place] [facility] [address] [id number] [place] [address] May, [facility] [place] [facility] [address] [id number] [place] [address] Apr, [facility] [place] [facility] [address] [id number] [place] [address] Apr, [facility] [place] [facility] [address] [id number] [place] [address] Apr, [facility] [place] [facility] [address] [id number] [place] [address] Apr, [facility] [place] [facility] [address] [id number] [place] [address] Apr, [facility] [place] [facility] [address] [id number] [place] [address] March, [facility] [place] [facility] [address] [id number] [place] [address] March, [facility] [place] [facility] [address] [id number] [place] [address] March, [facility] [place] [facility] [address] [id number] [place] [address] March, [facility] [place] [facility] [address] [id number] [place] [address] March, [facility] [place] [facility] [address] [id number] [place] [address] Feb, [facility] [address] [id number] [place] [address] Feb, [facility] [address] [id number] [place] [address] Jan, [facility] [address] [id number] [place] [address] Jan, [facility] [address] [id number] [place] [address] Jan, [facility] [address] [id number] [place] [address] Dec, [facility] [address] [id number] [place] [address] Nov, [facility] [address] [id number] [place] [address] Nov, [facility] [address] [id number] [place] [address] Nov, [facility] [address] [id number] [place] [address] Nov, [facility] [address] [id number] [place] [address] Oct, [facility] [address] [id number] [place] [address] Oct, [facility] [place] [facility] [address] [id number] [place] [address] Sep, [facility] [place] [facility] [address] [id number] [place] [address] Sep, [facility] [place] [facility] [address] [id number] [place] [address] Sep, [facility] [place] [facility] [address] [id number], [place] [address] 10 Sep, 2011 [facility] [address] [facility] [id number] [place] [address] Sep, [facility] [address] [facility] [id number], [place] [address] 16 Jun, 2011 [facility] [address] [facility] [id number] [place] [address] 15 Dec, 2010 [facility] [address] [facility] [id number], [place] [address] Sep, [facility] [address] [facility] [id number] [place] [address] Aug, [facility] [address] [facility] [id number] [place] [address] Aug, [facility] [address] [id number], [place] [address] Aug, [facility] [address] [facility] [id number], [place] [address] Aug, [facility] [address] [id number], [place] [address] Aug, [facility] [address] [facility] [id number], [place] [address] Jun, [facility] [address] [facility] [id number], [place] [address] Feb, [facility] [address] [facility] [id number], [place] [address] Sep, [facility] [address] [facility] [id number][place] [address] Aug, [facility] [address] [facility] [id number][place] [address] Apr, [facility] [id number], [place] [address] March, IMMUNIZATIONS No Known Immunizations SOCIAL HISTORY [...]
--- OUTSIDE RECORDS SUMMARY | 2018-06-10 19:59 | XMS REPORT ---
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 Role Phone ROMY PULIDO Unavailable PROBLEMS Type Condition ICD9-CM Code [id number] Code Onset Dates Condition Status SNOMED Code Problem Panic attacks F41.0 Active 019219032 Problem Mixed hyperlipidemia E78.2 Active 834265764 Problem 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 Active 08232050 Problem Anxiety state, unspecified F41.1 Active 370956855 Problem Retinitis pigmentosa H35.52 Active 64345086 Problem Other chronic pain G89.29 Active 67045215 Problem Lumbago with sciatica, right side M54.41 Active 041346303 Problem Cervical disc disorder at C5-C6 level with radiculopathy M50.122 Active 756054123 Problem Tension headache G44.209 Active 450138480 Problem Fibromyalgia M79.7 Active 202082412 Problem Calculus of gallbladder without cholecystitis without obstruction K80.20 Active 748639024 Problem Chest pain, unspecified type R07.9 Active 10226471 Problem Major depressive disorder, recurrent episode, moderate F33.1 Active 416853158 Problem Insomnia G47.00 Active 188234807 Problem Generalized anxiety disorder F41.1 Active 61177022 Problem Tobacco use Z72.0 Active 318400918 Problem Low back pain M54.5 Active 074320957 Problem Type 2 diabetes mellitus with hyperglycemia, without long-term current use of insulin E11.65 Active 48057533 ALLERGIES Substance Reaction Event Type Date Status Sulfamethoxazole-Trimethoprim Unknown Drug Allergy Dec, Active Codeine Sulfate Unknown Drug Allergy Dec, Active ENCOUNTERS Encounter Location Date Diagnosis [facility] [address] [facility] [id number] [address] Jun, [facility] [address] [place] [id number] [place] [address] 85771- 5525 Apr, Type 2 diabetes mellitus with hyperglycemia, without long- term current use of insulin E11.65 [place] [address] [address]- [address]357 March, Anxiety state, unspecified F41.1 [place] [address] 84534- 5157 Feb, [place] [address] 25703- 2118 Feb, Medicare annual wellness visit, initial Z00.00 ; Type 2 diabetes mellitus with hyperglycemia, without long-term current use of insulin E11.65 ; Major depressive disorder, recurrent episode, moderate F33.1 ; Mixed hyperlipidemia E78.2 ; Fibromyalgia M79.7 ; Retinitis pigmentosa H35.52 ; Panic attacks F41.0 ; Facial skin lesion L98.9 ; Fullness of neck R22.1 and Screening for colon cancer Z12.11 [place] [address] 61624- 7103 Feb, Type 2 diabetes mellitus with hyperglycemia, without long- term current use of insulin E11.65 [place] [address] [place] [address] [id number] [place] [address] 62786- 5578 Jan, [place] [address] 62657- 2485 Jan, Asymptomatic microscopic hematuria R31.21 ; Chest pain, unspecified type R07.9 and Generalized anxiety disorder F41.1 [place] [address] [place] [id number] [place] [address] 92842- 0856 Jan, [place] [address] 86286- 0036 Jan, [facility] [id number] [place] [address] 73047 -6224 Dec, [place] [address] 18451- 1866 Dec, [facility] [id number] [place] [address] 47837- 1001 Dec, [facility] [id number] [place] [address] 82832- 2889 Dec, [facility] [id number] [place] [address] 41509- 2849 Dec, [place] [address] 39080- 0915 Dec, Tension headache G44.209 [place] [address] [id number] [place] [address] 54833- 0432 09 Dec, 2017 Elevated LFTs R79.89 ; Type 2 diabetes mellitus with hyperglycemia, without long-term current use of insulin E11.65 ; Abdominal bloating R14.0 and Other fatigue R53.83 [place] [address] [place] [id number] [place] [address] 75298- 6009 Dec, Elevated ALT measurement R74.0 [place] [address] [place] [address] [id number] [place] [address] 22303- 1445 Nov, Type 2 diabetes mellitus with hyperglycemia, without long- term current use of insulin E11.65 and Mixed hyperlipidemia E78.2 [place] [address] [place] [id number] [place] [address] 64203- 0534 Oct, [place] [address] [place] [id number] [place] [address] 34845- 5649 Oct, Elevated ALT measurement R74.0 [place] [address] [address] [id number] [place] [address] 98011- 0573 Oct, [place] [address] [place] [address] [id number] [place] [address] 96413- 7880 Oct, [place] [address] [address] [id number] [place] [address] 77224- 4012 Oct, Breast cancer screening Z12.31 [place] [address] 85290- 8849 Sep, Tension headache G44.209 ; Cervical disc disorder at C5-C6 level with radiculopathy M50.122 ; Other fatigue R53.83 ; Breast pain, left N64.4 ; Vertigo R42 and Abnormal tympanic membrane of left ear H73.92 [facility] [address] [address] -[address] Sep, Screening breast examination Z12.[address] 81566- 3693 Sep, [address] 43902- 3344 Sep, Mixed hyperlipidemia E78.2 and Type 2 diabetes mellitus with hyperglycemia, without long-term current use of insulin E11.[address] 97025- 6770 Jul, [address] 84005- 6963 Jul, Lumbago with sciatica, right side M54.41 and Other chronic pain G89.[address] 84417- 1371 May, Type 2 diabetes mellitus with hyperglycemia, without long- term current use of insulin E11.65 ; Low back pain M54.5 ; Tobacco use Z72.0 ; Mixed hyperlipidemia E78.2 ; Lateral epicondylitis of right elbow M77.11 and 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 57261- 0488 Apr, [address] 34365- 1992 Apr, Low back pain M54.[address] 48556- 3295 Apr, Pain in thoracic spine M54.6 [facility] [address] [address] March, Lumbosacral neuritis M54.17 [facility] [address] [id number] [address] 0011 March, Low back pain M54.5 [facility] [address] [address]- 2974 March, [facility] [id number] [place] [address] 38494- 7111 March, [facility] [id number] [place] [address] 29750- 1963 March, [facility] [id number] [place] [address] 77250- 0409 Feb, [facility] [id number] [place] [address] 57697- 6302 Feb, [facility] [address] [id number] [address]- 1546 Feb, [facility] [id number] [place] [address] 05470- 4612 Feb, Low back pain M54.5 and Pain in thoracic spine M54.6 [facility] [address] [address] 0[address] Jan, Panic attacks F41.0 ; Type 2 diabetes mellitus with hyperglycemia, without long-term current use of insulin E11.65 and Other chest pain R07.89 [facility] [address] [address]- 9804 Jan, [facility] [id number] [place] [address] 58462- 4406 Jan, Type 2 diabetes mellitus with hyperglycemia, without long- term current use of insulin E11.65 [facility] [address] [address]- 4133 Jan, Pain in thoracic spine M54.6 [facility] [id number] [place] [address] 46895- 0358 Jan, Type 2 diabetes mellitus with hyperglycemia, without long- term current use of insulin E11.65 and Elevated liver enzymes R74.8 [facility] [address] [place] [address] 37704- 2883 Jan, [facility] [address] [place] [id number] [place] [address] 05878- 7757 Dec, Tobacco use Z72.0 ; Prediabetes R73.09 ; Elevated liver enzymes R74.8 ; Elevated fasting glucose R73.01 ; Elevated ALT measurement R74.0 ; Pain in thoracic spine M54.6 ; Panic attacks F41.0 and Type 2 diabetes mellitus with hyperglycemia, without long-term current use of insulin E11.65 [facility] [address] [place] [address] 99462 -8371 Jun, Abdominal pain, right upper quadrant R10.11 [place] [address] [place] [id number] [place] [address] 21116- 0213 Jun, [place] [address] [place] [id number] [place] [address] 29828- 3777 Jun, [facility] [address] [place] [address] 26754- 6752 Jun, [place] [address] [place] [id number] [place] [address] 94208- 5880 May, Routine gynecological examination Z01.419 ; Encounter for Papanicolaou smear for cervical cancer screening Z12.4 ; Screening breast examination Z12.39 ; Vaginal discharge N89.8 and Candidal vaginitis B37.3 [place] [address] [address] [id number] [place] [address] 97009- 5061 May, [place] [address] [place] [address] 69649- 7735 May, Prediabetes R73.09 ; Elevated ALT measurement R74.0 ; Elevated fasting glucose R73.01 and Palpitations R00.2 [facility] [id number] [place] [address] 20774- 3861 Feb, [facility] [address] [place] [id number] [place] [address] 80147- 0068 Feb, [facility] [address] [place] [id number] [place] [address] 68179- 4545 Feb, Generalized anxiety disorder F41.1 and Major depressive disorder, recurrent episode, moderate F33.1 [place] [address] 06856- 5268 Feb, Generalized anxiety disorder F41.1 ; Low back pain M54.5 and Insomnia G47.00 [place] [address] [place] [id number] [place] [address] 15094- 9229 Jan, Elevated fasting glucose R73.01 and Elevated ALT measurement R74.0 [place] [address] 69458- 6114 Jan, Generalized anxiety disorder F41.1 ; Low back pain M54.5 and Screening cholesterol level Z13.220 [place] [address] [place] [id number] [place] [address] 02335- 4688 Dec, Scoliosis M41.9 and Anxiety F41.9 [place] [address] [place] [id number] [place] [address] 17065- 2524 Feb, [place] [address] [place] [id number] [place] [address] 36247- 8130 Feb, [place] [address] [place] [id number] [place] [address] 60111- 9891 Apr, [place] [address] 14469- 7685 March, [facility] [address] [address] [id number] [place] [address] 19950- 1893 March, [place] [address] [place] [address]- 8715 March, [facility] [place] [facility] [address] [id number] [place] [address]- 4176 March, [facility] [place] [facility] [address] [id number] [place] [address]- 1663 March, [facility] [place] [facility] [address] [id number] [place] 8856 March, [facility] [place] [facility] [address] [id number] [place] [address]- 7410 March, [facility] [place] [facility] [address] [id number] [place] [address]- 7967 March, [facility] [place] [facility] [address] [id number] [place] [address]- 4525 Feb, [facility] [place] [facility] [address] [id number] [place] [address]- 5135 Feb, [facility] [place] [facility] [address] [id number] [place] [address]- 0510 Feb, [facility] [place] [facility] [address] [id number] [place] [address]- 5952 Feb, [facility] [place] [facility] [address] [id number] [place] [address]- 8073 Jan, [facility] [place] [facility] [address] [id number] [place] [address]- 4257 Jan, [facility] [place] [facility] [address] [id number] [place] [address]- 5228 Jan, [facility] [place] [facility] [address] [id number] [place] [address]- 2090 Jan, [facility] [place] [facility] [address] [id number] [place] [address]- 1042 Jan, [facility] [place] [facility] [address] [id number] [place] 2834 Jan, [facility] [place] [facility] [address] [id number] [place] [address]- 3796 Jan, [facility] [place] [facility] [address] [id number] [place] [address]- 0990 Dec, [facility] [place] [facility] [address] [id number] [place] [address]- 8395 Dec, [facility] [place] [facility] [address] [id number] [place] [address]- 2722 Dec, [facility] [place] [facility] [address] [id number] [place] [address]- 3662 Dec, [facility] [place] [facility] [address] [id number] [place] [address]- 6889 Dec, [facility] [place] [facility] [address] [id number] [place] [address]- 0885 Dec, [facility] [place] [facility] [address] [id number] [place] [address]- 3798 Nov, [facility] [place] [facility] [address] [id number] [place] [address]- 0883 Nov, [facility] [place] [facility] [address] [id number] [place] [address]- 6236 Nov, [facility] [place] [facility] [address] [id number] [place] [address]- 8711 Nov, [facility] [place] [facility] [address] [id number] [place] [address]- 8527 Nov, [facility] [place] [facility] [address] [id number] [place] [address]- 7902 Nov, [facility] [place] [facility] [address] [id number] [place] [address]- 7601 Nov, [facility] [place] [facility] [address] [id number] [place] [address]- 0041 Oct, [facility] [place] [facility] [address] [id number] [place] [address]- 8791 Oct, [facility] [place] [facility] [address] [id number] [place] [address]- 0288 Oct, [facility] [place] [facility] [address] [id number] [place] 3058 Oct, [facility] [place] [facility] [address] [id number] [place] [address]- 0914 Sep, [facility] [place] [facility] [address] [id number] [place] [address]- 8056 Sep, [facility] [place] [facility] [address] [id number] [place] 2279 Sep, [facility] [place] [facility] [address] [id number] [place] [address]- 8953 Sep, [facility] [place] [facility] [address] [id number] [place] [address]- 6958 Sep, [facility] [place] [facility] [address] [id number] [place] [address]- 2558 Sep, [facility] [place] [facility] [address] [id number] [place] [address]- 3959 Aug, [facility] [place] [facility] [address] [facility] [id number] [place] [address]- 6023 Aug, [facility] [place] [facility] [address] [id number] [place] [address]- 3322 Aug, [facility] [place] [facility] [address] [id number] [address]- 3186 Aug, [facility] [place] [facility] [address] [id number] [place] [address]- 7822 Aug, [facility] [place] [facility] [address] [facility] [id number] [place] [address]- 6051 Aug, [facility] [place] [facility] [address] [facility] [id number], [place] [address]- 4826 Aug, [facility] [place] [facility] [address] [id number] [place] [address]- 9601 Jul, [facility] [address] [id number] [place] [address]- 0625 Jul, [facility] [address] [id number] [place] [address]- 2850 Jun, [facility] [address] [id number] [place] [address]- 8635 May, [facility] [address] [id number] [place] [address]- 4475 May, [facility] [address] [id number] [place] [address]- 0507 May, [facility] [address] [id number] [place] [address]- 7167 Apr, [facility] [address] [id number] [place] [address]- 3690 Apr, [facility] [address] [id number] [place] [address]- 2114 Apr, [facility] [address] [id number] [place] [address]- 2227 March, [facility] [address] [id number] [place] [address]- 0773 March, [facility] [address] [id number] [place] [address]- 5977 March, [facility] [address] [id number] [place] [address]- 5873 Feb, [facility] [place] [facility] [address] [id number] [place] [address]- 9649 Feb, [facility] [place] [facility] [address] [id number] [place] [address]- 4439 15 Feb, 2013 [facility] [place] [facility] [address] [id number] [place] [address]- 0417 28 Jan, 2013 [facility] [place] [facility] [address] [id number] [place] [address]- 2680 19 Jan, 2013 [facility] [place] [facility] [address] [id number] [place] [address]- 0706 18 Jan, 2013 [facility] [place] [facility] [address] [facility] [id number] [place] [address]- 0366 15 Jan, 2013 [facility] [place] [facility] [address] [id number] [place] [address]- 1417 14 Jan, 2013 [facility] [place] [facility] [address] [id number] [place] [address]- 2691 12 Jan, 2013 [facility] [place] [facility] [address] [id number] [place] [address]- 4290 05 Jan, 2013 [facility] [place] [facility] [address] [id number] [place] [address]- 8400 28 Dec, 2012 [facility] [place] [facility] [address] [id number] [place] [address]- 7529 18 Dec, 2012 [facility] [place] [facility] [address] [id number] [place] [address]- 1544 15 Dec, 2012 [facility] [place] [facility] [address] [facility] [id number] [place] [address]- 5303 14 Dec, 2012 [facility] [place] [facility] [address] [id number] [place] [address]- 5016 05 Dec, 2012 [facility] [place] [facility] [address] [id number] [place] [address] 2542 29 Nov, 2012 [facility] [place] [facility] [address] [id number] [place] [address]- 6562 17 Nov, 2012 [facility] [place] [facility] [address] [id number] [place] [address]- 1656 Nov, [facility] [place] [facility] [address] [facility] [id number] [place] [address]- 2546 Nov, [facility] [place] [facility] [address] [id number] [place] [address]- 4083 31 Oct, 2012 [facility] [place] [facility] [address] [id number] [place] [address]- 5066 Oct, [facility] [place] [facility] [address] [id number] [place] [address]- 7526 Oct, [facility] [place] [facility] [address] [id number] [place] [address]- 1676 Oct, [facility] [place] [facility] [address] [id number] [place] [address]- 1929 Oct, [facility] [place] [facility] [address] [id number] [place] 2658 Oct, [facility] [place] [facility] [address] [id number] [place] [address]- 5235 Oct, [facility] [place] [facility] [address] [id number] [place] [address]- 2343 Oct, [facility] [place] [facility] [address] [id number] [place] 7571 Oct, [facility] [place] [facility] [address] [id number] [place] [address]- 1916 Sep, [facility] [place] [facility] [address] [id number] [place] 3002 16 Sep, 2012 [facility] [place] [facility] [address] [id number] [place] [address]- 7089 Sep, [facility] [place] [facility] [address] [id number] [place] [address]- 9594 Sep, [facility] [place] [facility] [address] [id number] [place] [address]- 1626 Sep, [facility] [place] [facility] [address] [id number] [place] [address]- 0766 Aug, [facility] [place] [facility] [address] [id number] [place] [address]- 4615 25 Aug, 2012 [facility] [place] [facility] [address] [id number] [place] [address]- 5587 17 Aug, 2012 [facility] [place] [facility] [address] [id number] [place] [address]- 2526 17 Aug, 2012 [facility] [place] [facility] [address] [id number] [place] [address]- 0514 16 Aug, 2012 [facility] [place] [facility] [address] [id number] [place] [address]- 7792 Aug, [facility] [place] [facility] [address] [id number] [place] [address]- 8386 11 Aug, 2012 [facility] [place] [facility] [address] [id number] [place] [address]- 7096 10 Aug, 2012 [facility] [place] [facility] [address] [id number] [place] [address]- 8623 10 Aug, 2012 [facility] [place] [facility] [address] [id number], [place] [address] 09 Aug, 2012 [facility] [place] [facility] [address] [id number] [place] [address] 05 Aug, 2012 [facility] [place] [facility] [address] [id number][place] [address] 04 Aug, 2012 [facility] [place] [facility] [address] [id number][place] [address] 17 Sep, 2011 [facility] [place] [facility] [address] [id number][place] [address] 13 Sep, 2011 [facility] [place] [facility] [address] [id number] [place] [address] 13 Sep2011 [facility] [place] [facility] [address] [id number][place] [address] 11 Sep, 2011 [facility] [place] [facility] [address] [id number][place] [address] 10 Jul, 2011 [facility] [place] [facility] [address] [id number] [place] [address] 08 Jul, 2012 [facility] [address] [id number] [place] [address] 16 Jun, 2012 [facility] [place] [facility] [address] [id number] [place] [address] 14 Jun, 2012 [facility] [place] [facility] [address] [id number] [place] [address] 17 May, 2012 [facility] [place] [facility] [address] [id number] [place] [address] 17 May, 2012 [facility] [place] [facility] [address] [id number] [place] [address] May, [facility] [place] [facility] [address] [id number] [place] [address] May, [facility] [address] [id number] [place] [address] Apr, [facility] [place] [facility] [address] [id number] [place] [address] Apr, [facility] [place] [facility] [address] [id number] [place] [address] Apr, [facility] [place] [facility] [address] [id number] [place] [address] Apr, [facility] [place] [facility] [address] [id number] [place] [address] Apr, [facility] [place] [facility] [address] [id number] [place] [address] March, [facility] [place] [facility] [address] [id number] [place] [address] March, [facility] [place] [facility] [address] [id number] [place] [address] March, [facility] [place] [facility] [address] [id number] [place] [address] March, [facility] [place] [facility] [address] [id number] [place] [address] March, [facility] [address] [id number] [place] [address] Feb, [facility] [place] [facility] [address] [id number] [place] [address] Feb, [facility] [address] [id number] [place] [address] Jan, [facility] [address] [id number] [place] [address] Jan, [facility] [place] [facility] [address] [id number] [place] [address] Jan, [facility] [address] [id number] [place] [address] Dec, [facility] [address] [id number] [place] [address] Nov, [facility] [address] [id number] [place] [address] Nov, [facility] [address] [id number] [place] [address] Nov, [facility] [place] [facility] [address] [id number] [place] [address] Nov, [facility] [address] [id number] [place] [address] Oct, [facility] [place] [facility] [address] [id number] [place] [address] 1670 Oct, [facility] [place] [facility] [address] [id number] [place] [address] Sep, [facility] [place] [facility] [address] [id number] [place] [address] Sep, [facility] [place] [facility] [address] [id number] [place] [id number] 10 Sep, 2011 [facility] [place] [facility] [address] [id number] [place] [address] 10 Sep, 2011 [facility] [place] [facility] [address] [id number] [place] [address] 08 Sep, 2011 [facility] [place] [facility] [address] [id number] [place] [address] 16 Jun, 2011 [facility] [place] [facility] [address] [id number] [place] [address] 15 Dec, 2010 [facility] [place] [facility] [address] [id number] [place] [address] Sep, [facility] [place] [facility] [address] [id number] [place] [address] 29 Aug, 2010 [facility] [place] [facility] [address] [id number] [place] [address] Aug, [facility] [place] [facility] [address] [id number] [place] [address] Aug, [facility] [place] [facility] [address] [id number] [place] [address] Aug, [facility] [place] [facility] [address] [id number] [place] [address] Aug, [facility] [place] [facility] [address] [id number] [place] [address] 17 Jun, 2010 [facility] [place] [facility] [address] [id number] [place] [address] 13 Feb, 2010 [facility] [place] [facility] [address] [id number] [place] [address] 06 Sep, 2009 [facility] [place] [facility] [address] [id number] [place] [address] Aug, [facility] [place] [facility] [address] [id number] [place] [address] 18 Apr, 2009 [facility] [place] [facility] [address] [facility] [id number] [place] [address] March, IMMUNIZATIONS No Known Immunizations SOCIAL HISTORY Never Assessed REASON FOR VISIT [facility] Follow up --tcmikelpettSKY PLAN OF CARE Activity Details Follow Up 4 Weeks Reason: VITAL SIGNS Height 61 in 2017-12-14 Weight 170.3 lbs 2017-12-14 Temperature 98.1 degrees Fahrenheit 2017-12-14 Heart Rate 80 bpm 2017-12-14 Respiratory Rate 18 2017-12-14 BMI 32.17 kg/m2 2017-12-14 Blood pressure systolic 128 mmHg 2017-12-14 Blood pressure diastolic 76 mmHg 2017-12-14 MEDICATIONS Medication Instructions Dosage Frequency Start Date End Date Duration Status Blood Glucose Monitor System w/Device ICD10- E11.65 2 times a day -3 times weekly. as directed Jan, Active Metformin HCl 500 mg Orally Twice a day 1 tablet with meals 12h Active Rosuvastatin Calcium 20 mg Orally Once a day 1 tablet 24h March, Active Cyclobenzaprine HCl 10 mg Orally Three times a day 1 tablet as needed 8h March, Active Blood Glucose Test - and Lancets ICD10- E11.65 2 times a day- 3 times weekly as directed Jan, Active RESULTS No Results PROCEDURES Procedure Date Ordered Result Body Site LAB NOT BILLED BY [facility] Dec 14, 2017 [facility] VISIT ESTABLISHED PATIENT Dec 14, 2017 BILL, ROUTINE* Dec 14, 2017 INSTRUCTIONS MEDICATIONS ADMINISTERED No Known Medications MEDICAL (GENERAL) HISTORY Type Description Date Medical History Scoliosis Medical History Bipolar Surgical History right hip replacement Surgical History c-sections x4 Hospitalization History Pneumonia 2011
--- OUTSIDE RECORDS SUMMARY | 2018-06-10 19:59 | XMS REPORT ---
Author Author ASHOK ROMY [facility] [address] Address [address] [place] [address] Care Team Providers Care Vp Genetic Name Role Phone PHILLIP PULIDOHANY Unavailable PROBLEMS Type Condition ICD9-CM Code XOO73-WY Code Onset Dates Condition Status SNOMED Code Problem Panic attacks F41.0 Active 830757991 Problem Mixed hyperlipidemia E78.2 Active 244723447 Problem 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 Active 16110589 Problem Anxiety state, unspecified F41.1 Active 508193885 Problem Retinitis pigmentosa H35.52 Active 10820616 Problem Other chronic pain G89.29 Active 35597173 Problem Lumbago with sciatica, right side M54.41 Active 572944675 Problem Cervical disc disorder at C5-C6 level with radiculopathy M50.122 Active 037607588 Problem Tension headache G44.209 Active 695809800 Problem Fibromyalgia M79.7 Active 761856011 Problem Calculus of gallbladder without cholecystitis without obstruction K80.20 Active 997831622 Problem Chest pain, unspecified type R07.9 Active 63631662 Problem Major depressive disorder, recurrent episode, moderate F33.1 Active 172719898 Problem Insomnia G47.00 Active 180788689 Problem Generalized anxiety disorder F41.1 Active 59378956 Problem Tobacco use Z72.0 Active 921639218 Problem Low back pain M54.5 Active 921547755 Problem Type 2 diabetes mellitus with hyperglycemia, without long-term current use of insulin E11.65 Active 32591678 ALLERGIES No Information ENCOUNTERS Encounter Location Date Diagnosis [facility] [place] [address] [facility] [id number] [address] Jun, [facility] [place] [address] [facility] [id number] [address] Apr, Type 2 diabetes mellitus with hyperglycemia, without long- term current use of insulin E11.65 [place] [id number] [place] [address] 57343- 4282 March, Anxiety state, unspecified F41.1 [place] [address] [place] [id number] [place] [address] 91342- 6147 Feb, [place] [address] [place] [id number] [place] [address] 56132- 1671 Feb, Medicare annual wellness visit, initial Z00.00 ; Type 2 diabetes mellitus with hyperglycemia, without long-term current use of insulin E11.65 ; Major depressive disorder, recurrent episode, moderate F33.1 ; Mixed hyperlipidemia E78.2 ; Fibromyalgia M79.7 ; Retinitis pigmentosa H35.52 ; Panic attacks F41.0 ; Facial skin lesion L98.9 ; Fullness of neck R22.1 and Screening for colon cancer Z12.11 [place] [address] [place] [id number] [place] [address] 24784- 8235 Feb, Type 2 diabetes mellitus with hyperglycemia, without long- term current use of insulin E11.65 [place] [address] [place] [id number] [place] [address] 63270- 0996 Jan, [place] [address] [place] [id number] [place] [address] 13589- 9879 Jan, Asymptomatic microscopic hematuria R31.21 ; Chest pain, unspecified type R07.9 and Generalized anxiety disorder F41.1 [place] [address] [place] [id number] [place] [address] 57297- 1988 Jan, [place] [address] [place] [id number] [place] [address] 91818- 9335 Jan, [facility] [address] [place] [id number] [place] [address] 30095 -4029 Dec, [facility] [place] [address] [place] [id number] [place] [address] 52786- 7980 Dec, [place] [address] [place] [id number] [place] [address] 38697- 7086 Dec, [place] [address] [place] [id number] [place] [address] 27918- 3752 Dec, [place] [address] 68679- 7894 14 Dec, 2017 [place] [address] 49091- 5406 Dec, Tension headache G44.209 [place] [address] 19304- 1187 Dec, Elevated LFTs R79.89 ; Type 2 diabetes mellitus with hyperglycemia, without long-term current use of insulin E11.65 ; Abdominal bloating R14.0 and Other fatigue R53.83 [place] [address] [place] [id number] [place] [address] 03125- 5441 08 Dec, 2017 Elevated ALT measurement R74.0 [place] [address] 27877- 6922 Nov, Type 2 diabetes mellitus with hyperglycemia, without long- term current use of insulin E11.65 and Mixed hyperlipidemia E78.2 [place] [address] 36889- 6926 Oct, [place] [address] [place] [id number] [place] [address] 77240- 1375 Oct, Elevated ALT measurement R74.0 [place] [address] 53853- 8589 Oct, [place] [address] 24273- 3949 Oct, [place] [address] 49163- 6585 Oct, Breast cancer screening Z12.31 [place] [address] 73984- 1918 Sep, Tension headache G44.209 ; Cervical disc disorder at C5-C6 level with radiculopathy M50.122 ; Other fatigue R53.83 ; Breast pain, left N64.4 ; Vertigo R42 and Abnormal tympanic membrane of left ear H73.92 [facility] [place] [address] [place] [id number] [place] [address] 17351 -3385 Sep, Screening breast examination Z12.[address] 11810- 1260 Sep, [place] [address] 40074- 9650 Sep, Mixed hyperlipidemia E78.2 and Type 2 diabetes mellitus with hyperglycemia, without long-term current use of insulin E11.65 [place] [address] 67141- 4112 Jul, [address] 59138- 6004 Jul, Lumbago with sciatica, right side M54.41 and Other chronic pain G89.[address] 74125- 2600 May, Type 2 diabetes mellitus with hyperglycemia, without long- term current use of insulin E11.65 ; Low back pain M54.5 ; Tobacco use Z72.0 ; Mixed hyperlipidemia E78.2 ; Lateral epicondylitis of right elbow M77.11 and 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 [place] [address] 45154- 6924 Apr, [place] [address] 58081- 3543 Apr, Low back pain M54.[address] 24657- 2008 Apr, Pain in thoracic spine M54.6 [facility] [address] 76555 -4834 March, Lumbosacral neuritis M54.17 [facility] [place] [address] [address] 2325 March, Low back pain M54.5 [facility] [place] [address] [place] [id number] [place] [address] 54860- 5817 March, [facility] [place] [address] [place] [id number] [place] [address] 68742- 2674 March, [facility] [place] [address] [place] [id number] [place] [address] 53280- 7171 March, [facility] [place] [address] [place] [id number] [place] [address] 27694- 9137 Feb, [facility] [place] [address] [place] [id number] [place] [address] 93363- 2645 Feb, [facility] [place] [address] [place] [id number] [place] [address] 45443- 5218 Feb, [facility] [place] [address] [place] [id number] [place] [address] 24766- 4583 Feb, Low back pain M54.5 and Pain in thoracic spine M54.6 [facility] [place] [address] [place] [id number] [place] [address] 66403- 7829 Jan, Panic attacks F41.0 ; Type 2 diabetes mellitus with hyperglycemia, without long-term current use of insulin E11.65 and Other chest pain R07.89 [facility] [place] [id number] [place] [address] 23008- 9829 Jan, [facility] [place] [id number] [place] [address] 78281- 6308 Jan, Type 2 diabetes mellitus with hyperglycemia, without long- term current use of insulin E11.65 [facility] [place] [address] [place] [address] 77395- 9024 Jan, Pain in thoracic spine M54.6 [facility] [place] [id number] [place] [address] 51589- 4978 Jan, Type 2 diabetes mellitus with hyperglycemia, without long- term current use of insulin E11.65 and Elevated liver enzymes R74.8 [facility] [place] [address] [place] [id number] [place] [address] 67057- 6088 Jan, [facility] [place] [address] [place] [id number] [place] [address] 17043- 4823 Dec, Tobacco use Z72.0 ; Prediabetes R73.09 ; Elevated liver enzymes R74.8 ; Elevated fasting glucose R73.01 ; Elevated ALT measurement R74.0 ; Pain in thoracic spine M54.6 ; Panic attacks F41.0 and Type 2 diabetes mellitus with hyperglycemia, without long-term current use of insulin E11.65 [facility] [address] [place] [id number] [place] [address] 02919 -2560 Jun, Abdominal pain, right upper quadrant R10.11 [place] [address] [place] [id number] [place] [address] 55406- 4142 Jun, [place] [address] [place] [id number] [place] [address] 06321- 9413 Jun, [place] [address] [place] [id number] [place] [address] 37924- 8145 Jun, [place] [address] [place] [id number] [place] [address] 27629- 2805 May, Routine gynecological examination Z01.419 ; Encounter for Papanicolaou smear for cervical cancer screening Z12.4 ; Screening breast examination Z12.39 ; Vaginal discharge N89.8 and Candidal vaginitis B37.3 [facility] [place] [address] [place] [id number] [place] [address] 59082- 6228 May, [place] [address] [place] [id number] [place] [address] 90637- 6666 May, Prediabetes R73.09 ; Elevated ALT measurement R74.0 ; Elevated fasting glucose R73.01 and Palpitations R00.2 [place] [address] [place] [id number] [place] [address] 87394- 6044 Feb, [facility] [place] [address] [place] [id number] [place] [address] 38396- 5079 Feb, [facility] [place] [address] [place] [id number] [place] [address] 43245- 6224 Feb, Generalized anxiety disorder F41.1 and Major depressive disorder, recurrent episode, moderate F33.1 [facility] [place] [address] [place] [id number] [place] [address] 50917- 5769 Feb, Generalized anxiety disorder F41.1 ; Low back pain M54.5 and Insomnia G47.00 [place] [address] 88671- 6041 Jan, Elevated fasting glucose R73.01 and Elevated ALT measurement R74.0 [place] [address] [place] [id number] [place] [address] 67828- 8148 Jan, Generalized anxiety disorder F41.1 ; Low back pain M54.5 and Screening cholesterol level Z13.220 [place] [address] [place] [id number] [place] [address] 76402- 7977 Dec, Scoliosis M41.9 and Anxiety F41.9 [place] [address] [place] [id number] [place] [address] 35732- 3409 Feb, [facility] [place] [address] [place] [id number] [place] [address] 11997- 3061 Feb, [facility] [place] [address] [place] [id number] [place] [address] 27930- 7859 Apr, [facility] [place] [address] [place] [id number] [place] [address] 08830- 8506 March, [facility] [place] [address] [place] [id number] [place] [address] 11834- 3567 March, [facility] [place] [address] [place] [address] 25673- 9259 March, [facility] [place] [address] [place] [id number] [place] [address]- 2013 March, [facility] [address] [id number] [place] [address]- 1077 March, [facility] [address] [id number] [place] 7288 March, [facility] [address] [id number] [place] [address]- 8985 March, [facility] [address] [id number] [place] [address]- 3930 March, [facility] [address] [id number] [place] [address]- 9307 Feb, [facility] [address] [id number] [place] [address]- 2407 Feb, [facility] [address] [id number] [place] [address]- 7298 Feb, [facility] [address] [id number] [place] [address]- 6381 Feb, [facility] [address] [id number] [place] [address]- 0578 Jan, [facility] [address] [id number] [place] [address]- 7301 Jan, [facility] [place] [facility] [address] [id number] [place] [address]- 3345 Jan, [facility] [place] [facility] [address] [id number] [place] [address]- 4993 Jan, [facility] [place] [facility] [address] [id number] [place] [address]- 5364 Jan, [facility] [place] [facility] [address] [id number] [place] [address]- 6062 Jan, [facility] [place] [facility] [address] [id number] [place] [address]- 7345 Jan, [facility] [place] [facility] [address] [id number] [place] [address]- 6061 Dec, [facility] [place] [facility] [address] [id number] [place] [address]- 0381 Dec, [facility] [place] [facility] [address] [id number] [place] [address]- 8622 Dec, [facility] [place] [facility] [address] [id number] [place] [address]- 4420 Dec, [facility] [place] [facility] [address] [id number] [place] [address]- 0653 Dec, [facility] [place] [facility] [address] [id number] [place] [address]- 9174 Dec, [facility] [place] [facility] [address] [id number] [place] [address]- 8126 Nov, [facility] [place] [facility] [address] [id number] [place] [address]- 0004 Nov, [facility] [place] [facility] [address] [id number] [place] [address]- 9487 Nov, [facility] [place] [facility] [address] [id number] [place] [address]- 8312 Nov, [facility] [place] [facility] [address] [id number] [address]- 8352 Nov, [facility] [place] [facility] [address] [id number] [address]- 2723 Nov, [facility] [place] [facility] [address] [id number] [place] [address]- 3992 Nov, [facility] [place] [facility] [address] [id number] [address]- 6561 Oct, [facility] [place] [facility] [address] [id number] [place] [address]- 4206 Oct, [facility] [place] [facility] [address] [id number] [place] [address]- 4498 Oct, [facility] [place] [facility] [address] [id number] [place] 6026 Oct, [facility] [place] [facility] [address] [id number] [place] [address]- 0200 Sep, [facility] [place] [facility] [address] [id number] [place] [address]- 4559 Sep, [facility] [place] [facility] [address] [id number] [place] [address]- 8761 Sep, [facility] [place] [facility] [address] [id number] [place] 8336 Sep, [facility] [place] [facility] [address] [id number] [place] [address]- 6719 Sep, [facility] [place] [facility] [address] [facility] [id number] [place] [address]- 8066 Sep, [facility] [place] [facility] [address] [id number] [place] [address]- 7264 Aug, [facility] [place] [facility] [address] [id number] [place] [address]- 6483 Aug, [facility] [place] [facility] [address] [facility] [id number] [place] [address]- 7808 Aug, [facility] [place] [facility] [address] [id number] [place] [address]- 1882 Aug, [facility] [place] [facility] [address] [id number] [address]- 5421 Aug, [facility] [place] [facility] [address] [id number] [place] [address]- 9761 Aug, [facility] [place] [facility] [address] [facility] [id number] [place] [address]- 8290 Aug, [facility] [place] [facility] [address] [id number] [address]- 9853 Jul, [facility] [place] [facility] [address] [id number] [place] [address]- 9887 Jul, [facility] [address] [id number] [place] [address]- 9144 Jun, [facility] [address] [id number] [place] [address]- 5532 May, [facility] [address] [id number] [place] [address]- 9271 May, [facility] [address] [id number] [place] [address]- 0716 May, [facility] [address] [id number] [place] [address]- 6693 Apr, [facility] [address] [id number] [place] [address]- 5271 Apr, [facility] [address] [id number] [place] [address]- 8884 Apr, [facility] [address] [id number] [place] [address]- 5611 March, [facility] [address] [id number] [place] [address]- 7821 March, [facility] [address] [id number] [place] [address]- 2032 March, [facility] [address] [id number] [place] [address]- 3323 Feb, [facility] [address] [id number] [place] [address]- 8046 Feb, [facility] [place] [facility] [address] [id number] [place] [address]- 9070 15 Feb, 2013 [facility] [address] [id number] [place] [address]- 1311 Jan, [facility] [address] [id number] [place] [address]- 0374 19 Jan, 2013 [facility] [address] [id number] [place] [address]- 5189 18 Jan, 2013 [facility] [address] [id number] [place] [address]- 5734 15 Jan, 2013 [facility] [address] [facility] [id number] [place] [address]- 6549 14 Jan, 2013 [facility] [address] [id number] [place] [address]- 4433 12 Jan, 2013 [facility] [address] [id number] [place] [address]- 1158 05 Jan, 2013 [facility] [address] [facility] [id number] [place] [address]- 6432 28 Dec, 2012 [facility] [address] [facility] [id number] [place] [address]- 5993 18 Dec, 2012 [facility] [place] [facility] [address] [facility] [id number] [place] [address]- 7777 15 Dec, 2012 [facility] [address] [facility] [id number] [place] [address]- 5761 14 Dec, 2012 [facility] [address] [facility] [id number] [place] [address]- 8149 05 Dec, 2012 [facility] [address] [facility] [id number] [place] [address]- 9860 29 Nov, 2012 [facility] [place] [facility] [address] [id number] [place] [address]- 0353 17 Nov, 2012 [facility] [place] [facility] [address] [facility] [id number] [place] [address]- 6664 Nov, [facility] [place] [facility] [address] [facility] [id number] [place] [address]- 3593 02 Nov, 2012 [facility] [place] [facility] [address] [facility] [id number] [place] [address]- 1330 Oct, [facility] [place] [facility] [address] [id number] [place] [address]- 9179 31 Oct, 2012 [facility] [place] [facility] [address] [id number] [place] [address]- 9976 Oct, [facility] [place] [facility] [address] [id number] [place] [address]- 1416 Oct, [facility] [place] [facility] [address] [id number] [place] [address]- 3786 Oct, [facility] [place] [facility] [address] [id number] [place] [address] Oct, [facility] [place] [facility] [address] [id number] [place] [address] Oct, [facility] [place] [facility] [address] [id number] [place] [address] Oct, [facility] [place] [facility] [address] [id number] [place] [address] Oct, [facility] [place] [facility] [address] [id number] [place] [address] 16 Sep, 2012 [facility] [place] [facility] [address] [id number] [place] [address] 16 Sep, 2012 [facility] [place] [facility] [address] [id number] [place] [address] Sep, [facility] [place] [facility] [address] [id number] [place] [address] Sep, [facility] [place] [facility] [address] [id number] [place] [address] Sep, [facility] [place] [facility] [address] [id number] [place] [address] Aug, [facility] [place] [facility] [address] [id number] [place] [address] Aug, [facility] [place] [facility] [address] [id number] [place] [address] 17 Aug, 2012 [facility] [place] [facility] [address] [id number] [place] [address] 17 Aug, 2012 [facility] [place] [facility] [address] [id number] [place] [address] 16 Aug, 2012 [facility] [place] [facility] [address] [id number] [place] [address]- [address] 11 Aug, 2012 [facility] [place] [facility] [address] [id number] [place] [address]- [address] 11 Aug, 2012 [facility] [place] [facility] [address] [id number] [place] [address]- [address] 10 Aug, 2012 [facility] [place] [facility] [address] [id number] [place] [address] 10 Aug, 2012 [facility] [place] [facility] [address] [id number] [place] [address]- [address] 09 Aug, 2012 [facility] [place] [facility] [address] [id number] [address] 05 Aug, 2012 [facility] [place] [facility] [address] [id number] [address] 04 Aug, 2012 [facility] [place] [facility] [address] [id number] [address] 17 Sep, 2011 [facility] [place] [facility] [address] [id number] [address] 13 Sep, 2011 [facility] [place] [facility] [address] [id number] [address] 13 Sep, 2011 [facility] [place] [facility] [address] [id number] [address] 11 Sep, 2011 [facility] [place] [facility] [address] [id number] [address] 10 Sep, 2011 [facility] [place] [facility] [address] [id number] [address] 08 Sep, 2011 [facility] [place] [facility] [address] [id number] [place] [address]- [address] 16 Jun, 2012 [facility] [place] [facility] [address] [id number] [place] [address]- [address] 14 Jun, 2012 [facility] [place] [facility] [address] [id number] [place] [address]- [address] 17 May, 2012 [facility] [place] [facility] [address] [id number] [place] [address]- [address] 17 May, 2012 [facility] [place] [facility] [address] [id number] [place] [address] 13 May, 2012 [facility] [place] [facility] [address] [id number] [place] [address] May, [facility] [place] [facility] [address] [id number] [place] [address] Apr, [facility] [place] [facility] [address] [id number] [place] [address] Apr, [facility] [place] [facility] [address] [id number] [place] [address] Apr, [facility] [place] [facility] [address] [id number] [place] [address] Apr, [facility] [place] [facility] [address] [id number] [place] [address] Apr, [facility] [place] [facility] [address] [id number] [place] [address] March, [facility] [place] [facility] [address] [id number] [place] [address] March, [facility] [place] [facility] [address] [id number] [place] [address] March, [facility] [place] [facility] [address] [id number] [place] [address] March, [facility] [place] [facility] [address] [id number] [place] [address] March, [facility] [place] [facility] [address] [id number] [place] [address] Feb, [facility] [address] [id number] [place] [address] Feb, [facility] [address] [id number] [place] [address] Jan, [facility] [address] [id number] [place] [address] Jan, [facility] [address] [id number] [place] [address] Jan, [facility] [address] [id number] [place] [address] Dec, [facility] [address] [id number] [place] [address] Nov, [facility] [address] [id number] [place] [address] Nov, [facility] [address] [id number] [place] [address] Nov, [facility] [address] [id number] [place] [address] Nov, [facility] [address] [id number] [place] [address] Oct, [facility] [address] [id number] [place] [address] Oct, [facility] [place] [facility] [address] [id number] [place] [address] 2008 Sep, [facility] [place] [facility] [address] [id number] [place] [address] Sep, [facility] [place] [facility] [address] [id number] [place] [address] Sep, [facility] [place] [facility] [address] [id number] [address] 10 Sep, 2011 [facility] [address] [facility] [id number] [place] [address] Sep, [facility] [address] [facility] [id number] [address] 16 Jun, 2011 [facility] [address] [facility] [id number] [place] [address] 15 Dec, 2010 [facility] [address] [facility] [id number] [address] Sep, [facility] [address] [facility] [id number] [place] Aug, [facility] [address] [facility] [id number] [place] [address] Aug, [facility] [address] [id number] [address] Aug, [facility] [address] [facility] [id number] [place] [address] Aug, [facility] [address] [id number] [address] Aug, [facility] [address] [facility] [id number] [address] Jun, [facility] [address] [facility] [id number] [place] [address] Feb, [facility] [address] [facility] [id number] [address] Sep, [facility] [address] [facility] [id number] [address] Aug, [facility] [address] [facility] [id number] [address] Apr, [facility] [id number] [address] March, IMMUNIZATIONS No Known Immunizations SOCIAL HISTORY Never Assessed REASON FOR VISIT Refill Request PLAN OF CARE VITAL SIGNS MEDICATIONS Medication Instructions Dosage Frequency Start Date End Date Duration Status Cyclobenzaprine HCl 10 mg Orally Three times a day 1 tablet as needed 8h March, Jan, 30 days Active RESULTS No Results PROCEDURES No Known procedures INSTRUCTIONS MEDICATIONS ADMINISTERED No Known Medications MEDICAL (GENERAL) HISTORY Type Description Date Medical History Scoliosis Medical History Bipolar Surgical History right hip replacement Surgical History c-sections x4 Hospitalization History Pneumonia 2011
--- OUTSIDE RECORDS SUMMARY | 2018-06-10 20:00 | XMS REPORT ---
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 Name Role Phone ROMY PULIDO Unavailable PROBLEMS Type Condition ICD9-CM Code DLF63-HQ Code Onset Dates Condition Status SNOMED Code Problem Panic attacks F41.0 Active 817023750 Problem Mixed hyperlipidemia E78.2 Active 786009798 Problem 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 Active 39371671 Problem Anxiety state, unspecified F41.1 Active 879452737 Problem Retinitis pigmentosa H35.52 Active 75622952 Problem Other chronic pain G89.29 Active 02474316 Problem Lumbago with sciatica, right side M54.41 Active 762808497 Problem Cervical disc disorder at C5-C6 level with radiculopathy M50.122 Active 551891974 Problem Tension headache G44.209 Active 858123883 Problem Fibromyalgia M79.7 Active 817354766 Problem Calculus of gallbladder without cholecystitis without obstruction K80.20 Active 769216602 Problem Chest pain, unspecified type R07.9 Active 16200079 Problem Major depressive disorder, recurrent episode, moderate F33.1 Active 447044501 Problem Insomnia G47.00 Active 835167862 Problem Generalized anxiety disorder F41.1 Active 02814386 Problem Tobacco use Z72.0 Active 746779248 Problem Low back pain M54.5 Active 966305758 Problem Type 2 diabetes mellitus with hyperglycemia, without long-term current use of insulin E11.65 Active 03740050 ALLERGIES No Information ENCOUNTERS Encounter Location Date Diagnosis [facility] [id number] [address] March, Anxiety state, unspecified F41.1 [facility] [id number] [address] Feb, [facility] [address] [address] Feb, Medicare annual wellness visit, initial Z00.00 ; Type 2 diabetes mellitus with hyperglycemia, without long-term current use of insulin E11.65 ; Major depressive disorder, recurrent episode, moderate F33.1 ; Mixed hyperlipidemia E78.2 ; Fibromyalgia M79.7 ; Retinitis pigmentosa H35.52 ; Panic attacks F41.0 ; Facial skin lesion L98.9 ; Fullness of neck R22.1 and Screening for colon cancer Z12.11 [facility] [id number] [place] [address] 16683- 2598 Feb, Type 2 diabetes mellitus with hyperglycemia, without long- term current use of insulin E11.65 [facility] [id number] [place] [address] 64479- 8645 Jan, [facility] [id number] [place] [address] 46117- 7582 Jan, Asymptomatic microscopic hematuria R31.21 ; Chest pain, unspecified type R07.9 and Generalized anxiety disorder F41.1 [facility] [id number] [place] [address] 35306- 8398 Jan, [facility] [id number] [place] [address] 25646- 1461 Jan, [facility] [place] [facility] [address] [address] Dec, [facility] [id number] [place] [address] 90757- 8078 Dec, [facility] [id number] [place] [address] 54725- 8994 Dec, [facility] [id number] [place] [address] 35769- 4886 Dec, [facility] [id number] [place] [address] 42542- 6489 Dec, [facility] [address] [place] [address] 64163- 2982 13 Dec, 2017 Tension headache G44.209 [facility] [address] [address]- [address] 09 Dec, 2017 Elevated LFTs R79.89 ; Type 2 diabetes mellitus with hyperglycemia, without long-term current use of insulin E11.65 ; Abdominal bloating R14.0 and Other fatigue R53.83 [facility] [address] 70991- 5450 08 Dec, 2017 Elevated ALT measurement R74.0 [facility] [address] 04673- 8187 Nov, Type 2 diabetes mellitus with hyperglycemia, without long- term current use of insulin E11.65 and Mixed hyperlipidemia E78.2 [facility] [address] 94664- 2093 Oct, [facility] [address] 06890- 8841 Oct, Elevated ALT measurement R74.0 [facility] [address] 54870- 9903 Oct, [facility] [address] 50933- 2773 Oct, [facility] [address] 90304- 2190 Oct, Breast cancer screening Z12.31 [facility] [address] 01661- 1224 Sep, Tension headache G44.209 ; Cervical disc disorder at C5-C6 level with radiculopathy M50.122 ; Other fatigue R53.83 ; Breast pain, left N64.4 ; Vertigo R42 and Abnormal tympanic membrane of left ear H73.92 [facility] [id number] [place] [address] 67224 -6486 Sep, Screening breast examination Z12.39 [facility] [id number] [place] [address] 29107- 1182 Sep, [facility] [id number] [place] [address] 41351- 1324 Sep, Mixed hyperlipidemia E78.2 and Type 2 diabetes mellitus with hyperglycemia, without long-term current use of insulin E11.65 [facility] [address] 64006- 8958 Jul, [facility] [address] 80354- 4209 Jul, Lumbago with sciatica, right side M54.41 and Other chronic pain G89.29 [facility] [id number] [place] [address] 37583- 8288 May, Type 2 diabetes mellitus with hyperglycemia, without long- term current use of insulin E11.65 ; Low back pain M54.5 ; Tobacco use Z72.0 ; Mixed hyperlipidemia E78.2 ; Lateral epicondylitis of right elbow M77.11 and 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 [facility] [id number] [place] [address] 20066- 1715 Apr, [facility] [id number] [place] [address] 56712- 7334 Apr, Low back pain M54.5 [facility] [id number] [place] [address] 98593- 4101 Apr, Pain in thoracic spine M54.6 [facility] [id number] [place] [address] 34556 -4788 March, Lumbosacral neuritis M54.17 [facility] [id number] [place] [address] 12588- 2996 March, Low back pain M54.5 [facility] [id number] [place] [address] 65844- 0537 March, [facility] [address] [address] March, [facility] [id number] [place] [address] 59604- 2282 March, [facility] [id number] [place] [address] 48017- 3017 Feb, [facility] [id number] [place] [address] 10590- 3495 Feb, [facility] [id number] [place] [address] 53020- 7385 Feb, [facility] [id number] [place] [address] 71354- 9418 Feb, Low back pain M54.5 and Pain in thoracic spine M54.6 [facility] [id number] [place] [address] 95642- 9181 Jan, Panic attacks F41.0 ; Type 2 diabetes mellitus with hyperglycemia, without long-term current use of insulin E11.65 and Other chest pain R07.89 [facility] [id number] [place] [address] 02004- 2329 Jan, [facility] [id number] [place] [address] 12968- 7386 Jan, Type 2 diabetes mellitus with hyperglycemia, without long- term current use of insulin E11.65 [facility] [address] [place] [address] 31791- 1307 Jan, Pain in thoracic spine M54.6 [facility] [address] [place] [address] 14713- 5318 Jan, Type 2 diabetes mellitus with hyperglycemia, without long- term current use of insulin E11.65 and Elevated liver enzymes R74.8 [facility] [id number] [place] [address] 60175- 5466 Jan, [facility] [id number] [place] [address] 18410- 1735 Dec, Tobacco use Z72.0 ; Prediabetes R73.09 ; Elevated liver enzymes R74.8 ; Elevated fasting glucose R73.01 ; Elevated ALT measurement R74.0 ; Pain in thoracic spine M54.6 ; Panic attacks F41.0 and Type 2 diabetes mellitus with hyperglycemia, without long-term current use of insulin E11.65 [facility] [place] [facility] [id number] [place] [address] 87048 -9175 Jun, Abdominal pain, right upper quadrant R10.11 [facility] [id number] [place] [address] 80216- 4658 Jun, [facility] [id number] [place] [address] 03994- 1805 Jun, [facility] [id number] [place] [address] 07359- 8256 Jun, [facility] [address] 44319- 8310 May, Routine gynecological examination Z01.419 ; Encounter for Papanicolaou smear for cervical cancer screening Z12.4 ; Screening breast examination Z12.39 ; Vaginal discharge N89.8 and Candidal vaginitis B37.3 [facility] [id number] [place] [address] 59257- 8979 May, [facility] [id number] [place] [address] 04617- 6129 May, Prediabetes R73.09 ; Elevated ALT measurement R74.0 ; Elevated fasting glucose R73.01 and Palpitations R00.2 [facility] [id number] [place] [address] 31307- 7982 Feb, [facility] [id number] [place] [address] 69146- 7428 Feb, [facility] [id number] [place] [address] 65614- 1475 11 Apr, 2016 Generalized anxiety disorder F41.1 and Major depressive disorder, recurrent episode, moderate F33.1 [facility] [id number] [place] [address] 11243- 3823 Feb, Generalized anxiety disorder F41.1 ; Low back pain M54.5 and Insomnia G47.00 [facility] [id number] [place] [address] 32264- 7692 Jan, Elevated fasting glucose R73.01 and Elevated ALT measurement R74.0 [facility] [address] 23350- 6409 Jan, Generalized anxiety disorder F41.1 ; Low back pain M54.5 and Screening cholesterol level Z13.220 [facility] [address] 66959- 2747 04 Dec, 2015 Scoliosis M41.9 and Anxiety F41.9 [facility] [address] 50672- 4165 Feb, [facility] [id number] [place] [address] 20420- 3028 Feb, [facility] [address] 98236- 8449 Apr, [facility] [id number] [place] [address] 75824- 5873 March, [facility] [id number] [place] [address] 96738- 0764 March, [facility] [id number] [place] [address] 97406- 9379 March, [facility] [address] 15761- 5820 March, [facility] [id number] [place] [address] 14221- 2521 March, [facility] [id number] [place] [address] 29546- 8483 March, [facility] [place] [facility] [address] [id number] [place] [address]- 8167 March, [facility] [place] [facility] [address] [id number] [place] [address]- 6869 March, [facility] [place] [facility] [address] [id number] [place] [address]- 9356 Feb, [facility] [place] [facility] [address] [id number] [place] [address]- 4249 Feb, [facility] [place] [facility] [address] [id number] [place] [address]- 1450 Feb, [facility] [place] [facility] [address] [id number] [place] [address]- 4146 Feb, [facility] [place] [facility] [address] [id number] [place] [address]- 2653 Jan, [facility] [place] [facility] [address] [id number] [place] [address]- 4788 Jan, [facility] [place] [facility] [address] [id number] [place] [address]- 6228 Jan, [facility] [place] [facility] [address] [id number] [place] [address]- 4242 Jan, [facility] [place] [facility] [address] [id number] [place] [address]- 3606 Jan, [facility] [place] [facility] [address] [id number] [place] [address]- 0402 Jan, [facility] [place] [facility] [address] [id number] [place] [address]- 3588 Jan, [facility] [place] [facility] [address] [id number] [place] [address]- 7005 Dec, [facility] [place] [facility] [address] [id number] [place]30 Dec, [facility] [place] [facility] [address] [id number] [place] [address]- 6901 Dec, [facility] [address] [id number] [place] [address]- 0524 Dec, [facility] [place] [facility] [address] [id number] [place] [address]- 0480 Dec, [facility] [address] [id number] [place] [address]- 2809 Dec, [facility] [place] [facility] [address] [id number] [place] [address]- 1329 Nov, [facility] [address] [id number] [place] [address]- 7750 Nov, [facility] [place] [facility] [address] [id number] [place] [address]- 6483 Nov, [facility] [address] [id number] [place] [address]- 5359 Nov, [facility] [address] [id number] [place] [address]- 7121 Nov, [facility] [place] [facility] [address] [id number] [place] [address]- 8568 Nov, [facility] [address] [facility] [id number] [place] [address]- 5283 Nov, [facility] [address] [id number] [place] [address]- 0072 Oct, [facility] [place] [facility] [address] [id number] [place] [address]- 8832 Oct, [facility] [place] [facility] [address] [id number] [place] [address]- 4783 Oct, [facility] [place] [facility] [address] [id number] [place] [address]- 8633 Oct, [facility] [place] [facility] [address] [id number] [place] [address]- 0546 Sep, [facility] [place] [facility] [address] [id number] [place] [address]- 1307 Sep, [facility] [place] [facility] [address] [id number] [place] [address]- 4820 Sep, [facility] [place] [facility] [address] [id number] [place] [address]- 2880 Sep, [facility] [place] [facility] [address] [id number] [place] [address] 2548 Sep, [facility] [place] [facility] [address] [id number] [place] [address]- 4249 Sep, [facility] [place] [facility] [address] [id number] [place] [address]- 4170 Aug, [facility] [place] [facility] [address] [id number] [place] [address]- 5113 Aug, [facility] [place] [facility] [address] [id number] [place] [address]- 0222 Aug, [facility] [place] [facility] [address] [id number] [place] [address]- 6497 Aug, [facility] [place] [facility] [address] [id number] [place] [address]- 8645 Aug, [facility] [place] [facility] [address] [id number] [place] [address]- 4920 Aug, [facility] [place] [facility] [address] [id number] [place] [address]- 9958 Aug, [facility] [place] [facility] [address] [id number] [place] [address]- 6671 Jul, [facility] [place] [facility] [address] [id number] [place] [address]- 7762 Jul, [facility] [place] [facility] [address] [id number] [place] [address] 2549 Jun, [facility] [place] [facility] [address] [id number] [place] [address]- 4755 18 May, 2013 [facility] [address] [id number] [place] [address]- 8545 May, [facility] [place] [facility] [address] [id number] [place] [address]- 0749 10 May, 2013 [facility] [address] [id number] [place] [address]- 5771 Apr, [facility] [place] [facility] [address] [id number] [place] [address]- 0679 Apr, [facility] [address] [id number] [place] [address]- 3019 Apr, [facility] [address] [id number] [place] [address]- 2761 March, [facility] [address] [id number] [place] [address]- 2066 March, [facility] [address] [id number] [place] [address]- 9606 March, [facility] [address] [id number] [place] [address]- 7314 Feb, [facility] [place] [facility] [address] [id number] [place] [address]- 7842 Feb, [facility] [address] [id number] [place] [address]- 1791 15 Feb, 2013 [facility] [place] [facility] [address] [id number] [place] [address]- 6776 28 Jan, 2013 [facility] [place] [facility] [address] [id number] [place] [address]- 0064 19 Jan, 2013 [facility] [place] [facility] [address] [id number] [place] [address]- 2661 18 Jan, 2013 [facility] [place] [facility] [address] [id number] [place] [address]- 8544 15 Jan, 2013 [facility] [place] [facility] [address] [id number] [place] [address]- 4209 14 Jan, 2013 [facility] [address] [id number] [place] [address]- 9640 12 Jan, 2013 [facility] [place] [facility] [address] [id number] [place] [address]- 7855 05 Jan, 2013 [facility] [address] [id number] [place] [address]- 1549 28 Dec, 2012 [facility] [place] [facility] [address] [id number] [place] [address]- 3693 18 Dec, 2012 [facility] [address] [id number] [place] [address]- 1549 15 Dec, 2012 [facility] [address] [id number] [place] [address]- 7060 14 Dec, 2012 [facility] [address] [id number] [place] [address]- 7727 05 Dec, 2012 [facility] [address] [id number] [place] [address]- 0635 Nov, [facility] [address] [id number] [place] [address]- 5627 Nov, [facility] [address] [id number] [place] [address]- 1173 Nov, [facility] [address] [id number] [place] [address]- 6247 Nov, [facility] [place] [facility] [address] [id number] [place] [address]- 2381 Oct, [facility] [place] [facility] [address] [id number] [place] [address]- 7943 Oct, [facility] [place] [facility] [address] [id number] [place] [address]- 7834 Oct, [facility] [place] [facility] [address] [id number] [place] [address]- 3976 18 Oct, 2012 [facility] [place] [facility] [address] [id number] [place] [address]- 8168 Oct, [facility] [place] [facility] [address] [id number] [place] [address]- 6421 Oct, [facility] [place] [facility] [address] [facility] [id number] [place] [address]- 4590 Oct, [facility] [place] [facility] [address] [id number] [place] [address]- 6810 Oct, [facility] [place] [facility] [address] [id number] [place] 4259 Oct, [facility] [place] [facility] [address] [id number] [place] 3361 Sep, [facility] [place] [facility] [address] [id number] [place] [address]- 7955 Sep, [facility] [place] [facility] [address] [id number] [place] [address]- 0898 Sep, [facility] [place] [facility] [address] [id number] [place] [address]- 9716 Sep, [facility] [place] [facility] [address] [id number] [place] [address]- 0859 Sep, [facility] [place] [facility] [address] [id number] [place] [address]- 9682 Aug, [facility] [place] [facility] [address] [id number] [place] [address]- 1227 Aug, [facility] [place] [facility] [address] [id number] [place] [address]- 3440 Aug, [facility] [place] [facility] [address] [facility] [id number] [place] 2226 Aug, [facility] [place] [facility] [address] [facility] [id number] [place] [address] Aug, [facility] [place] [facility] [address] [id number] [place] [address] 11 Aug, 2012 [facility] [place] [facility] [address] [id number] [place] [address] 11 Aug, 2012 [facility] [place] [facility] [address] [id number] [place] [address] 10 Aug, 2012 [facility] [address] [id number] [place] [address] 10 Aug, 2012 [facility] [place] [facility] [address] [id number] [place] [address] 09 Aug, 2012 [facility] [place] [facility] [address] [id number] [place] [address] 05 Aug, 2012 [facility] [place] [facility] [address] [id number] [place] [address] 94[address] 04 Aug, 2012 [facility] [place] [facility] [address] [id number] [place] [address] 17 Jul, 2012 [facility] [place] [facility] [address] [id number] [place] [address] 13 Jul, 2012 [facility] [place] [facility] [address] [id number] [place] [address] 13 Jul, 2012 [facility] [place] [facility] [address] [id number] [place] [address]- 0468 11 Jul, 2012 [facility] [place] [facility] [address] [id number] [place] [address] 10 Jul, 2012 [facility] [place] [facility] [address] [id number] [place] [address] 08 Jul, 2012 [facility] [place] [facility] [address] [id number] [place] [address]448 16 Jun, 2012 [facility] [place] [facility] [address] [id number] [place] [address] 14 Jun, 2012 [facility] [place] [facility] [address] [id number] [place] [address]80 17 May, 2012 [facility] [place] [facility] [address] [id number] [place] [address] 17 May, 2012 [facility] [place] [facility] [address] [id number] [place] [address] May, [facility] [place] [facility] [address] [id number] [place] [address] May, [facility] [place] [facility] [address] [id number] [place] [address] Apr, [facility] [place] [facility] [address] [id number] [place] [address]66 Apr, [facility] [place] [facility] [address] [id number] [place] [address] Apr, [facility] [place] [facility] [address] [id number] [place] [address] 94[address] Apr, [facility] [place] [facility] [address] [id number] [place] [address] Apr, [facility] [place] [facility] [address] [id number] [place] [address] March, [facility] [place] [facility] [address] [id number] [place] [address] March, [facility] [place] [facility] [address] [id number] [place] [address] March, [facility] [place] [facility] [address] [id number] [place] [address] March, [facility] [place] [facility] [address] [id number] [place] [address] March, [facility] [place] [facility] [address] [id number] [place] [address] 24 Feb, 2012 [facility] [place] [facility] [address] [id number] [place] [address] Feb, [facility] [place] [facility] [address] [id number] [place] [address] Jan, [facility] [address] [id number] [place] [address] Jan, [facility] [place] [facility] [address] [id number] [place] [address] 8969 Jan, [facility] [place] [facility] [address] [id number] [place] [address] Dec, [facility] [place] [facility] [address] [id number] [place] [address] Nov, [facility] [place] [facility] [address] [id number] [place] [address] Nov, [facility] [place] [facility] [address] [id number] [place] [address] Nov, [facility] [address] [facility] [id number] [place] [address] Nov, [facility] [place] [facility] [address] [id number] [place] [address] Oct, [facility] [place] [facility] [address] [address] [id number] [place] [address] Oct, [facility] [place] [facility] [address] [facility] [id number] [place] [address] Sep, [facility] [place] [facility] [address] [id number] [place] [address] Sep, [facility] [place] [facility] [address] [id number] [place] [address] Sep, [facility] [place] [facility] [address] [id number] [place] [address] Sep, [facility] [place] [facility] [address] [facility] [id number] [place] [address] 08 Sep, 2011 [facility] [place] [facility] [address] [facility] [id number] [place] [address] 16 Jun, 2011 [facility] [place] [facility] [address] [facility] [id number] [place] [address] Dec, [facility] [address] [facility] [id number] [place] [address] Sep, [facility] [address] [facility] [id number] [place] [address] Aug, [facility] [address] [facility] [id number] [place] Aug, [facility] [address] [facility] [id number] [place] Aug, [facility] [address] [facility] [id number] [place] Aug, [facility] [address] [facility] [id number] [place] Aug, [facility] [id number] [address] Jun, [facility] [id number] [address] Feb, [facility] [id number] [place] [address] Sep, [facility] [address] [id number] [address] Aug, [facility] [address] [id number] [address] Apr, [facility] [address] [id number] [place] [address] March, IMMUNIZATIONS No Known Immunizations SOCIAL HISTORY Never Assessed REASON FOR VISIT mammo order PLAN OF CARE VITAL SIGNS MEDICATIONS Unknown Medications RESULTS Name Result Date Reference Range Mammogram Dx, Bilateral 2017-10-12 PROCEDURES No Known procedures INSTRUCTIONS MEDICATIONS ADMINISTERED No Known Medications MEDICAL (GENERAL) HISTORY Type Description Date Medical History Scoliosis Medical History Bipolar Surgical History right hip replacement Surgical History c-sections x4 Hospitalization History Pneumonia 2011
--- OUTSIDE RECORDS SUMMARY | 2018-06-10 20:01 | XMS REPORT ---
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 Active 60628042 Problem Type 2 diabetes mellitus with hyperglycemia, without long-term current use of insulin E11.65 Active 14771194 Problem Retinitis pigmentosa H35.52 Active 18407142 Problem Tension headache G44.209 Active 726003117 Problem Lumbago with sciatica, right side M54.41 Active 663993263 Problem Mixed hyperlipidemia E78.2 Active 296398797 Problem Cervical disc disorder at C5-C6 level with radiculopathy M50.122 Active 024849189 Problem Other chronic pain G89.29 Active 62317766 Problem Fibromyalgia M79.7 Active 616106654 Problem Low back pain M54.5 Active 077978067 Problem Major depressive disorder, recurrent episode, moderate F33.1 Active 773512888 Problem Calculus of gallbladder without cholecystitis without obstruction K80.20 Active 263641708 Problem Insomnia G47.00 Active 195841085 Problem Generalized anxiety disorder F41.1 Active 82921526 Problem Tobacco use Z72.0 Active 179271449 ALLERGIES Substance Reaction Event Type Date Status Sulfamethoxazole-Trimethoprim Unknown Drug Allergy May, Active Codeine Sulfate Unknown Drug Allergy May, Active ENCOUNTERS Encounter Location Date Diagnosis [facility] [address] [id number], [place] [address] March, [facility] [address] [id number] [address] Feb, [facility] [id number] [place] [address] 79933- 5987 Feb, Medicare annual wellness visit, initial Z00.00 [facility] [id number] [place] [address] 45137- 4819 Feb, Type 2 diabetes mellitus with hyperglycemia, without long- term current use of insulin E11.65 [facility] [id number] [place] [address] 00460- 2942 Jan, [address] [address] [address]21- 3777 Jan, Asymptomatic microscopic hematuria R31.21 ; Chest pain, unspecified type R07.9 and Generalized anxiety disorder F41.1 [address] 35656- 5268 Jan, [facility] [id number] [place] [address] 81761- 8672 Jan, [facility] [id number] [place] [address] 53845 -9084 Dec, [facility] [id number] [place] [address] 74440- 9949 Dec, [facility] [place] [id number] [place] [address] 95189- 2311 Dec, [facility] [place] [id number] [place] [address] 52772- 3047 Dec, [facility] [place] [id number] [place] [address] 14798- 1556 Dec, [facility] [id number] [place] [address] 63764- 3708 13 Dec, 2017 Tension headache G44.209 [place] [id number] [place] [address] 99609- 7637 09 Dec, 2017 Elevated LFTs R79.89 ; Type 2 diabetes mellitus with hyperglycemia, without long-term current use of insulin E11.65 ; Abdominal bloating R14.0 and Other fatigue R53.83 [place] [id number] [place] [address] 70199- 4484 08 Dec, 2017 Elevated ALT measurement R74.0 [place] [id number] [place] [address] 27653- 1832 Nov, Type 2 diabetes mellitus with hyperglycemia, without long- term current use of insulin E11.65 and Mixed hyperlipidemia E78.[address] 59216- 5339 Oct, [address] 03461- 5343 Oct, Elevated ALT measurement R74.0 [address] [place] 78221- 7447 Oct, [address] 48931- 8044 Oct, [place] [place] [id number] [place] [address] 99547- 8207 Oct, Breast cancer screening Z12.[address] 33424- 9758 Sep, Tension headache G44.209 ; Cervical disc disorder at C5-C6 level with radiculopathy M50.122 ; Other fatigue R53.83 ; Breast pain, left N64.4 ; Vertigo R42 and Abnormal tympanic membrane of left ear H73.92 [facility] [id number] [place] [address] 26163 -3046 Sep, Screening breast examination Z12.[address] 83457- 8198 Sep, [address] 39659- 1966 Sep, Mixed hyperlipidemia E78.2 and Type 2 diabetes mellitus with hyperglycemia, without long-term current use of insulin E11.[id number] [place] [address] 30611- 0859 Jul, [facility] [address] 86257- 4524 Jul, Lumbago with sciatica, right side M54.41 and Other chronic pain G89.29 [facility] [id number] [place] [address] 18200- 9350 May, Type 2 diabetes mellitus with hyperglycemia, without long- term current use of insulin E11.65 ; Low back pain M54.5 ; Tobacco use Z72.0 ; Mixed hyperlipidemia E78.2 ; Lateral epicondylitis of right elbow M77.11 and 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 [facility] [id number] [place] [address] 34474- 7577 Apr, [facility] [id number] [place] [address] 38964- 5355 Apr, Low back pain M54.5 [facility] [id number] [place] [address] 47907- 3937 Apr, Pain in thoracic spine M54.6 [facility] [id number] [place] [address] 68108 -9790 March, Lumbosacral neuritis M54.17 [place] [id number] [place] [address] 45428- 9381 March, Low back pain M54.5 [facility] [id number] [place] [address] 56887- 5398 March, [facility] [id number] [place] [address] 89030- 3439 March, [facility] [id number] [place] [address] 02330- 7902 March, [facility] [id number] [place] [address] 17537- 0265 Feb, [address], [place] [address] 1214 Feb, [facility] [place] [id number] [place] [address] 99826- 6035 Feb, [facility] [id number] [place] [address] 93118- 7062 Feb, Low back pain M54.5 and Pain in thoracic spine M54.6 [place] [id number] [place] [address] 01657- 6409 Jan, Panic attacks F41.0 ; Type 2 diabetes mellitus with hyperglycemia, without long-term current use of insulin E11.65 and Other chest pain R07.89 [address] [place] [id number] [place] [address] 93584- 5543 Jan, [place] [id number] [place] [address] 06433- 5290 Jan, Type 2 diabetes mellitus with hyperglycemia, without long- term current use of insulin E11.65 [place] [place] [id number] [place] [address] 76433- 6497 Jan, Pain in thoracic spine M54.6 [place] [id number] [place] [address] 84126- 4000 Jan, Type 2 diabetes mellitus with hyperglycemia, without long- term current use of insulin E11.65 and Elevated liver enzymes R74.8 [id number] [place] [address] 18230- 6031 Jan, [id number] [place] [address] 62621- 0280 Dec, Tobacco use Z72.0 ; Prediabetes R73.09 ; Elevated liver enzymes R74.8 ; Elevated fasting glucose R73.01 ; Elevated ALT measurement R74.0 ; Pain in thoracic spine M54.6 ; Panic attacks F41.0 and Type 2 diabetes mellitus with hyperglycemia, without long-term current use of insulin E11.65 [facility] [address], [place] [address] Jun, Abdominal pain, right upper quadrant R10.11 [facility] [id number] [place] [address] 75871- 9945 Jun, [facility] [id number] [place] [address] 82525- 6875 Jun, [facility] [id number] [place] [address] 60810- 4051 Jun, [facility] [id number] [place] [address] 58328- 7608 May, Routine gynecological examination Z01.419 ; Encounter for Papanicolaou smear for cervical cancer screening Z12.4 ; Screening breast examination Z12.39 ; Vaginal discharge N89.8 and Candidal vaginitis B37.3 [address] [id number] [place] [address] 54415- 1959 May, [place] [id number] [place] [address] 10838- 5978 May, Prediabetes R73.09 ; Elevated ALT measurement R74.0 ; Elevated fasting glucose R73.01 and Palpitations R00.2 [id number] [place] [address] 32292- 3150 Feb, [place] [id number] [place] [address] 82319- 5460 Feb, [place] [id number] [place] [address] 47917- 3442 Feb, Generalized anxiety disorder F41.1 and Major depressive disorder, recurrent episode, moderate F33.1 [id number] [place] [address] 00293- 2843 07 Feb, 2016 Generalized anxiety disorder F41.1 ; Low back pain M54.5 and Insomnia G47.00 [address] [id number] [place] [address] 35786- 1925 Jan, Elevated fasting glucose R73.01 and Elevated ALT measurement R74.0 [facility] [id number] [place] [address] 62967- 2165 Jan, Generalized anxiety disorder F41.1 ; Low back pain M54.5 and Screening cholesterol level Z13.220 [facility] [id number] [place] [address] 60621- 7145 04 Dec, 2015 Scoliosis M41.9 and Anxiety F41.9 [facility] [id number] [place] [address] 36686- 3071 Feb, [facility] [id number] [place] [address] 43962- 8027 Feb, [facility] [id number] [place] [address] 00493- 1485 Apr, [facility] [id number] [place] [address] 71945- 9439 March, [facility] [id number] [place] [address] 88066- 1093 March, [facility] [id number] [place] [address] 98818- 7077 March, [facility] [id number] [place] [address] 01773- 8610 March, [facility] [id number] [place] [address] 69367- 3568 March, [facility] [id number] [place] [address] 44635- 5184 March, [facility] [id number] [place] [address] 59143- 9344 March, [facility] [id number] [place] [address] 04327- 5564 March, [facility] [id number] [place] [address] 70605- 1395 Feb, [facility] [place] [facility] [address] [id number] [place] [address]- 0332 Feb, [facility] [place] [facility] [address] [id number] [place] [address]- 0810 Feb, [facility] [place] [facility] [address] [id number] [place] [address]- 3462 Feb, [facility] [place] [facility] [address] [id number] [place] [address]- 9269 Jan, [facility] [place] [facility] [address] [id number] [place] [address]- 7454 Jan, [facility] [place] [facility] [address] [id number] [place] [address]- 1324 Jan, [facility] [place] [facility] [address] [id number] [place] [address]- 8339 Jan, [facility] [place] [facility] [address] [id number] [place] [address]- 4424 Jan, [facility] [place] [facility] [address] [id number] [place] [address]- 4934 Jan, [facility] [place] [facility] [address] [id number] [place] [address]- 1552 Jan, [facility] [place] [facility] [address] [id number] [place] [address]- 2749 Dec, [facility] [place] [facility] [address] [id number] [place] [address]- 1226 Dec, [facility] [place] [facility] [address] [id number] [place] [address]- 7256 Dec, [facility] [place] [facility] [address] [id number] [place] [address]- 6788 Dec, [facility] [place] [facility] [address] [id number] [place] [address]- 1709 18 Dec, 2013 [facility] [place] [facility] [address] [id number] [place] [address]- 4935 Dec, [facility] [address] [id number] [place] [address]- 8532 Nov, [facility] [place] [facility] [address] [id number] [place] [address]- 6945 Nov, [facility] [address] [id number] [place] [address]- 6911 Nov, [facility] [place] [facility] [address] [id number] [place] [address]- 1753 Nov, [facility] [address] [id number] [place] [address]- 2834 Nov, [facility] [address] [id number] [place] [address]- 4421 Nov, [facility] [address] [id number] [place] [address]- 3472 Nov, [facility] [address] [id number] [place] [address]- 5671 Oct, [facility] [place] [facility] [address] [id number] [place] [address]- 3284 Oct, [facility] [address] [id number] [place] [address]- 0169 Oct, [facility] [place] [facility] [address] [id number] [place] [address]- 7502 Oct, [facility] [place] [facility] [address] [id number] [place] [address]- 5851 Sep, [facility] [place] [facility] [address] [id number] [place] 4014 Sep, [facility] [place] [facility] [address] [id number] [place] [address]- 1187 Sep, [facility] [place] [facility] [address] [id number] [place] [address]- 6450 Sep, [facility] [place] [facility] [address] [id number] [place] [address]- 2548 Sep, [facility] [place] [facility] [address] [id number] [place] [address]- 2546 Sep, [facility] [place] [facility] [address] [id number] [place] [address]- 2544 Aug, [facility] [place] [facility] [address] [id number] [place] [address]- 2543 Aug, [facility] [place] [facility] [address] [id number] [place] [address]- 2542 Aug, [facility] [place] [facility] [address] [id number] [place] [address]- 2546 Aug, [facility] [place] [facility] [address] [id number] [place] [address]- 2542 Aug, [facility] [place] [facility] [address] [id number] [place] [address]- 2540 Aug, [facility] [place] [facility] [address] [id number] [place] [address]- 254 Aug, [facility] [place] [facility] [address] [id number] [place] [address]- 2276 Jul, [facility] [place] [facility] [address] [id number] [place] [address]- 2546 Jul, [facility] [place] [facility] [address] [id number] [place] [address]- 2546 Jun, [facility] [place] [facility] [address] [id number] [place] [address]- 2549 May, [facility] [place] [facility] [address] [id number] [place] [address]- 2546 May, [facility] [place] [facility] [address] [id number] [place] [address]- 2546 May, [facility] [place] [facility] [address] [id number] [place] [address]- 6759 Apr, [facility] [address] [id number] [place] [address]- 3204 Apr, [facility] [place] [facility] [address] [id number] [place] [address]- 8472 Apr, [facility] [address] [id number] [place] [address]- 1469 March, [facility] [place] [facility] [address] [id number] [place] [address]- 7032 March, [facility] [address] [id number] [place] [address]- 1290 March, [facility] [address] [id number] [place] [address]- 8929 Feb, [facility] [address] [id number] [place] [address]- 0566 Feb, [facility] [address] [id number] [place] [address]- 3601 15 Feb, 2013 [facility] [address] [id number] [place] [address]- 1003 28 Jan, 2013 [facility] [place] [facility] [address] [id number] [place] [address]- 9495 19 Jan, 2013 [facility] [address] [id number] [place] [address]- 4566 18 Jan, 2013 [facility] [place] [facility] [address] [id number] [place] [address]- 9693 15 Jan, 2013 [facility] [place] [facility] [address] [id number] [place] [address]- 2889 14 Jan, 2013 [facility] [place] [facility] [address] [id number] [place] [address]- 7830 12 Jan, 2013 [facility] [place] [facility] [address] [id number] [place] 9011 05 Jan, 2013 [facility] [place] [facility] [address] [id number] [place] [address]- 6937 28 Dec, 2012 [facility] [address] [id number] [place] [address]- 2376 18 Dec, 2012 [facility] [place] [facility] [address] [id number] [place] [address] 2546 15 Dec, 2012 [facility] [address] [id number] [place] [address] 2546 14 Dec, 2012 [facility] [place] [facility] [address] [id number] [place] [address] 2549 05 Dec, 2012 [facility] [place] [facility] [address] [id number] [place] [address]- 3299 29 Nov, 2012 [facility] [address] [id number] [place] [address]- 1182 17 Nov, 2012 [facility] [address] [id number] [place] [address]- 0374 Nov, [facility] [address] [id number] [place] [address]- 0191 Nov, [facility] [address] [id number] [place] [address]- 7636 31 Oct, 2012 [facility] [address] [id number] [place] [address]- 3916 31 Oct, 2012 [facility] [address] [id number] [place] [address]- 2396 Oct, [facility] [place] [facility] [address] [id number] [place] [address]- 8408 18 Oct, 2012 [facility] [place] [facility] [address] [id number] [place] [address]- 8159 Oct, [facility] [place] [facility] [address] [id number] [place] 4475 Oct, [facility] [place] [facility] [address] [id number] [place] [address]- 2395 Oct, [facility] [place] [facility] [address] [id number] [place] [address]- 5242 Oct, [facility] [place] [facility] [address] [id number] [place] [address]- 6066 Oct, [facility] [place] [facility] [address] [facility] [id number] [place] [address]- 3346 Sep, [facility] [place] [facility] [address] [id number] [place] [address]- 6710 Sep, [facility] [place] [facility] [address] [id number] [place] [address]- 8872 Sep, [facility] [place] [facility] [address] [id number] [place] [address]- 4452 Sep, [facility] [place] [facility] [address] [id number] [place] [address]- 0476 Sep, [facility] [place] [facility] [address] [id number], [place] [address]- 6209 Aug, [facility] [place] [facility] [address] [id number] [place] [address]- 3599 Aug, [facility] [place] [facility] [address] [id number], [place] [address]- 8240 Aug, [facility] [place] [facility] [address] [id number], [place] [address]- 2915 Aug, [facility] [place] [facility] [address] [id number], [place] [address] 16 Aug, 2012 [facility] [place] [facility] [address] [id number], [place] [address] Aug, [facility] [place] [facility] [address] [facility] [id number], [place] [address] Aug, [facility] [place] [facility] [address] [facility] [id number], [place] [address] Aug, [facility] [place] [facility] [address] [id number] [place] [address] 10 Aug, 2012 [facility] [address] [id number] [place] [address] 09 Aug, 2012 [facility] [place] [facility] [address] [id number] [place] [address] 05 Aug, 2012 [facility] [address] [id number] [place] [address] 04 Aug, 2012 [facility] [place] [facility] [address] [id number] [place] [address] 17 Jul, 2012 [facility] [place] [facility] [address] [id number] [place] [address] 13 Jul, 2012 [facility] [place] [facility] [address] [id number] [place] [address] 13 Jul, 2012 [facility] [address] [id number] [place] [address] 11 Jul, 2012 [facility] [address] [id number] [place] [address] 10 Jul, 2012 [facility] [place] [facility] [address] [id number] [place] [address] 08 Jul, 2012 [facility] [address] [id number] [place] [address] 7866 16 Jun, 2012 [facility] [place] [facility] [address] [id number] [place] [address] 14 Jun, 2012 [facility] [place] [facility] [address] [id number] [place] [address]- [address] 17 May, 2012 [facility] [place] [facility] [address] [id number] [place] [address]- [address] 17 May, 2012 [facility] [place] [facility] [address] [id number] [place] [address]- 2970 13 May, 2012 [facility] [place] [facility] [address] [id number] [place] [address] May, [facility] [place] [facility] [address] [id number] [place] [address] Apr, [facility] [place] [facility] [address] [id number] [place] [address] Apr, [facility] [place] [facility] [address] [id number] [place] [address]- 79[address] Apr, [facility] [place] [facility] [address] [id number] [place] [address] Apr, [facility] [place] [facility] [address] [id number] [place] [address]- [address] Apr, [facility] [place] [facility] [address] [id number] [place] [address] March, [facility] [place] [facility] [address] [id number] [place] [address]- [address] March, [facility] [place] [facility] [address] [id number] [place] [address]- [address] March, [facility] [place] [facility] [address] [id number] [place] [address]- [address] March, [facility] [place] [facility] [address] [id number] [place] [address]- [address] March, [facility] [place] [facility] [address] [id number] [place] [address] 24 Feb, 2012 [facility] [place] [facility] [address] [id number] [place] [address] Feb, [facility] [place] [facility] [address] [id number] [place] [address] Jan, [facility] [place] [facility] [address] [id number] [place] [address] Jan, [facility] [place] [facility] [address] [id number] [place] [address] Jan, [facility] [place] [facility] [address] [id number], [place] [address] 28 Dec, 2011 [facility] [place] [facility] [address] [id number] [place] [address] Nov, [facility] [place] [facility] [address] [id number] [place] [address]- [address] 27 Nov, 2011 [facility] [place] [facility] [address] [facility] [id number] [place] [address] Nov, [facility] [place] [facility] [address] [id number] [place] [address]- [address] Nov, [facility] [place] [facility] [address] [id number] [place] [address]- 18[address] Oct, [facility] [place] [facility] [address] [facility] [id number] [place] [address] Oct, [facility] [place] [facility] [address] [id number] [place] [address] Sep, [facility] [place] [facility] [address] [facility] [facility] [id number] [place] [address] Sep, [facility] [place] [facility] [address] [id number] [place] [address] Sep, [facility] [place] [facility] [address] [facility] [facility] [id number] [place] [address] Sep, [facility] [place] [facility] [address] [facility] [facility] [id number], [place] [address] Sep, [facility] [place] [facility] [address] [facility] [facility] [id number], [place] [address] 16 Jun, 2011 [facility] [place] [facility] [address] [facility] [id number] [place] [address] 15 Dec, 2010 [facility] [place] [facility] [address] [facility] [facility] [id number] [place] [address] 03 Sep, 2010 [facility] [place] [facility] [address] [facility] [facility] [id number] [place] [address] 29 Aug, 2010 [facility] [place] [facility] [address] [facility] [facility] [id number] [address] Aug, [facility] [address] [facility] [id number], [place] [address] Aug, [facility] [address] [facility] [id number], [place] [address] Aug, [facility] [address] [facility] [id number], [place] [address] Aug, [facility] [address] [facility] [id number], [place] [address] Jun, [facility] [address] [id number], [place] [address] Feb, [facility] [id number] [address] Sep, [facility] [id number], [place] [address] Aug, [facility] [address] [id number], [place] [address] Apr, [facility] [address] [id number], [place] [address] March, IMMUNIZATIONS No Known Immunizations SOCIAL HISTORY Never Assessed REASON FOR VISIT Diabetes zohreh lieberman ma PLAN OF CARE Activity Details Follow Up 3 Months Reason:DMII VITAL SIGNS Height 61 in 2017-06-01 Weight 164.0 lbs 2017-06-01 Temperature 97.7 degrees Fahrenheit 2017-06-01 BMI 30.98 kg/m2 2017-06-01 Blood pressure systolic 128 mmHg 2017-06-01 Blood pressure diastolic 76 mmHg 2017-06-01 MEDICATIONS Medication Instructions Dosage Frequency Start Date End Date Duration Status Blood Glucose Monitor System w/Device ICD10- E11.65 2 times a day -3 times weekly. as directed Jan, Active Blood Glucose Test - and Lancets ICD10- E11.65 2 times a day- 3 times weekly as directed Jan, Active Cyclobenzaprine HCl 10 mg Orally Three times a day 1 tablet as needed 8h March, May, 30 days Active Rosuvastatin Calcium 20 mg Orally Once a day 1 tablet 24h March, Active Neurontin 600 MG Orally Three times a day 1 capsule 8h March, 30 day(s) Active Metformin HCl 500 MG Orally Twice a day 1 tablet with meals 12h 30 days Active Metformin HCl 500 mg Orally twice a day with breakfast and supper 1 tablet Active RESULTS Name Result Date Reference Range A1C (IN HOUSE) 2017-06-01 A1C IN HOUSE 6.0 4.3 - 5.6 % Previous A1c 7.0 Lot [id number] Exp date PROCEDURES Procedure Date Ordered Result Body Site FOOT EXAM PERFORMED 2017-06-01 N/A GLYCATED HEMOGLOBIN TEST June 01, 2017 [facility] VISIT ESTABLISHED PATIENT June 01, 2017 FOOT EXAM PERFORMED June 01, 2017 INSTRUCTIONS MEDICATIONS ADMINISTERED No Known Medications MEDICAL (GENERAL) HISTORY Type Description Date Medical History Scoliosis Medical History Bipolar Surgical History right hip replacement Surgical History c-sections x4 Hospitalization History Pneumonia 2011
--- OUTSIDE RECORDS SUMMARY | 2018-06-10 20:02 | XMS REPORT ---
Author Author ASHOK ROMY [facility] Address [address] [place] [address] Care Team Providers Care Account Management Assistant Name Role Phone PHILLIP PULIDOHANY Unavailable PROBLEMS Type Condition ICD9-CM Code QFE96-HP Code Onset Dates Condition Status SNOMED Code Problem Panic attacks F41.0 Active 504305194 Problem Mixed hyperlipidemia E78.2 Active 196381832 Problem 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 Active 87638973 Problem Anxiety state, unspecified F41.1 Active 245767649 Problem Retinitis pigmentosa H35.52 Active 19098119 Problem Other chronic pain G89.29 Active 93226852 Problem Lumbago with sciatica, right side M54.41 Active 892712232 Problem Cervical disc disorder at C5-C6 level with radiculopathy M50.122 Active 233547183 Problem Tension headache G44.209 Active 841221582 Problem Fibromyalgia M79.7 Active 276707791 Problem Calculus of gallbladder without cholecystitis without obstruction K80.20 Active 631387674 Problem Chest pain, unspecified type R07.9 Active 50084611 Problem Major depressive disorder, recurrent episode, moderate F33.1 Active 010320514 Problem Insomnia G47.00 Active 685750348 Problem Generalized anxiety disorder F41.1 Active 59117249 Problem Tobacco use Z72.0 Active 251278926 Problem Low back pain M54.5 Active 623823807 Problem Type 2 diabetes mellitus with hyperglycemia, without long-term current use of insulin E11.65 Active 06451505 ALLERGIES No Information ENCOUNTERS Encounter Location Date Diagnosis [facility] [address] [address] March, Anxiety state, unspecified F41.1 [facility] [id number] [address] Feb, [facility] [address] [address] Feb, Medicare annual wellness visit, initial Z00.00 ; Type 2 diabetes mellitus with hyperglycemia, without long-term current use of insulin E11.65 ; Major depressive disorder, recurrent episode, moderate F33.1 ; Mixed hyperlipidemia E78.2 ; Fibromyalgia M79.7 ; Retinitis pigmentosa H35.52 ; Panic attacks F41.0 ; Facial skin lesion L98.9 ; Fullness of neck R22.1 and Screening for colon cancer Z12.11 [place] [id number] [place] [address] 28322- 9331 Feb, Type 2 diabetes mellitus with hyperglycemia, without long- term current use of insulin E11.65 [place] [facility] [id number] [place] [address] 40011- 1560 Jan, [place] [id number] [place] [address] 65469- 0149 Jan, Asymptomatic microscopic hematuria R31.21 ; Chest pain, unspecified type R07.9 and Generalized anxiety disorder F41.1 [place] [id number] [place] [address] 11663- 2188 Jan, [place] [id number] [place] [address] 11001- 6539 Jan, [facility] [address] [address] Dec, [place] [id number] [place] [address] 92473- 8258 Dec, [place] [id number] [place] [address] 71047- 9104 Dec, [place] [id number] [place] [address] 16342- 3344 Dec, [place] [id number] [place] [address] 67165- 3651 Dec, [facility] [id number] [place] [address] 50582- 7718 13 Dec, 2017 Tension headache G44.209 [place] [address] 07886- 3108 09 Dec, 2017 Elevated LFTs R79.89 ; Type 2 diabetes mellitus with hyperglycemia, without long-term current use of insulin E11.65 ; Abdominal bloating R14.0 and Other fatigue R53.83 [place] [address] 07011- 3293 08 Dec, 2017 Elevated ALT measurement R74.0 [place] [address] 11237- 9825 Nov, Type 2 diabetes mellitus with hyperglycemia, without long- term current use of insulin E11.65 and Mixed hyperlipidemia E78.2 [place] [address] 48618- 9770 Oct, [place] [address] 05676- 3581 Oct, Elevated ALT measurement R74.0 [place] [address] 67782- 5782 Oct, [place] [address] 50009- 0854 Oct, [place] [address] 62129- 4169 Oct, Breast cancer screening Z12.31 [place] [address] 04669- 3965 Sep, Tension headache G44.209 ; Cervical disc disorder at C5-C6 level with radiculopathy M50.122 ; Other fatigue R53.83 ; Breast pain, left N64.4 ; Vertigo R42 and Abnormal tympanic membrane of left ear H73.92 [facility] [id number] [place] [address] 32403 -5536 Sep, Screening breast examination Z12.39 [place] [id number] [place] [address] 19501- 7139 Sep, [place] [id number] [place] [address] 53308- 9704 Sep, Mixed hyperlipidemia E78.2 and Type 2 diabetes mellitus with hyperglycemia, without long-term current use of insulin E11.65 [place] [address] 21973- 0457 Jul, [place] [address] 14868- 1215 Jul, Lumbago with sciatica, right side M54.41 and Other chronic pain G89.29 [place] [id number] [place] [address] 49235- 0133 May, Type 2 diabetes mellitus with hyperglycemia, without long- term current use of insulin E11.65 ; Low back pain M54.5 ; Tobacco use Z72.0 ; Mixed hyperlipidemia E78.2 ; Lateral epicondylitis of right elbow M77.11 and 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 [place] [id number] [place] [address] 39145- 9328 Apr, [place] [id number] [place] [address] 68633- 6594 Apr, Low back pain M54.5 [place] [id number] [place] [address] 75722- 7728 Apr, Pain in thoracic spine M54.6 [facility] [id number] [place] [address] 71465 -3483 March, Lumbosacral neuritis M54.17 [place] [id number] [place] [address] 42722- 5589 March, Low back pain M54.5 [place] [id number] [place] [address] 38035- 9168 March, [place] [address] [address] 4[address] March, [facility] [id number] [place] [address] 21687- 4859 March, [facility] [id number] [place] [address] 22201- 7817 Feb, [facility] [id number] [place] [address] 23904- 1381 Feb, [facility] [id number] [place] [address] 47173- 5043 Feb, [place] [id number] [place] [address] 34145- 7695 Feb, Low back pain M54.5 and Pain in thoracic spine M54.6 [place] [id number] [place] [address] 13228- 7169 Jan, Panic attacks F41.0 ; Type 2 diabetes mellitus with hyperglycemia, without long-term current use of insulin E11.65 and Other chest pain R07.89 [place] [id number] [place] [address] 84920- 8621 Jan, [facility] [id number] [place] [address] 75444- 4047 Jan, Type 2 diabetes mellitus with hyperglycemia, without long- term current use of insulin E11.65 [place] [id number] [place] [address] 58718- 0747 Jan, Pain in thoracic spine M54.6 [facility] [id number] [place] [address] 11865- 7370 Jan, Type 2 diabetes mellitus with hyperglycemia, without long- term current use of insulin E11.65 and Elevated liver enzymes R74.8 [facility] [id number] [place] [address] 49343- 5556 Jan, [facility] [id number] [place] [address] 85633- 7553 Dec, Tobacco use Z72.0 ; Prediabetes R73.09 ; Elevated liver enzymes R74.8 ; Elevated fasting glucose R73.01 ; Elevated ALT measurement R74.0 ; Pain in thoracic spine M54.6 ; Panic attacks F41.0 and Type 2 diabetes mellitus with hyperglycemia, without long-term current use of insulin E11.65 [facility] [id number] [place] [address] 51196 -1671 Jun, Abdominal pain, right upper quadrant R10.11 [facility] [id number] [place] [address] 86141- 9271 Jun, [place] [id number] [place] [address] 22639- 1304 Jun, [place] [id number] [place] [address] 05860- 4549 Jun, [place] [address] 90427- 1889 May, Routine gynecological examination Z01.419 ; Encounter for Papanicolaou smear for cervical cancer screening Z12.4 ; Screening breast examination Z12.39 ; Vaginal discharge N89.8 and Candidal vaginitis B37.3 [facility] [id number] [place] [address] 35556- 2650 May, [place] [id number] [place] [address] 42624- 1294 May, Prediabetes R73.09 ; Elevated ALT measurement R74.0 ; Elevated fasting glucose R73.01 and Palpitations R00.2 [place] [id number] [place] [address] 42063- 3416 Feb, [place] [id number] [place] [address] 23122- 0535 Feb, [place] [id number] [place] [address] 88811- 4330 11 Apr, 2016 Generalized anxiety disorder F41.1 and Major depressive disorder, recurrent episode, moderate F33.1 [facility] [id number] [place] [address] 51073- 8908 Feb, Generalized anxiety disorder F41.1 ; Low back pain M54.5 and Insomnia G47.00 [facility] [id number] [place] [address] 99773- 9930 Jan, Elevated fasting glucose R73.01 and Elevated ALT measurement R74.0 [facility] [address] 69615- 6019 Jan, Generalized anxiety disorder F41.1 ; Low back pain M54.5 and Screening cholesterol level Z13.220 [facility] [address] 01254- 9647 04 Dec, 2015 Scoliosis M41.9 and Anxiety F41.9 [facility] [address] 51889- 7602 Feb, [facility] [id number] [place] [address] 75616- 6390 Feb, [facility] [address] 35988- 3861 Apr, [facility] [id number] [place] [address] 51905- 2774 March, [facility] [id number] [place] [address] 86623- 2079 March, [facility] [id number] [place] [address] 20974- 1333 March, [facility] [address] 61341- 5492 March, [facility] [id number] [place] [address] 28500- 7414 March, [facility] [id number] [place] [address] 93266- 4708 March, [facility] [place] [facility] [address] [id number] [place] [address]- 1541 March, [facility] [place] [facility] [address] [id number] [place] [address]- 4005 March, [facility] [place] [facility] [address] [id number] [place] [address]- 7420 Feb, [facility] [place] [facility] [address] [id number] [place] [address]- 3082 Feb, [facility] [place] [facility] [address] [id number] [place] [address]- 5065 Feb, [facility] [place] [facility] [address] [id number] [place] [address]- 8487 Feb, [facility] [place] [facility] [address] [id number] [place] [address]- 4983 Jan, [facility] [place] [facility] [address] [id number] [place] [address]- 7471 Jan, [facility] [place] [facility] [address] [id number] [place] [address]- 6241 Jan, [facility] [place] [facility] [address] [id number] [place] [address]- 3136 Jan, [facility] [place] [facility] [address] [id number] [place] [address]- 5906 Jan, [facility] [place] [facility] [address] [id number] [place] [address]- 7534 Jan, [facility] [place] [facility] [address] [id number] [place] [address]- 0706 Jan, [facility] [place] [facility] [address] [id number] [place] [address]- 5293 Dec, [facility] [place] [facility] [address] [id number] [place] 0517 Dec, [facility] [place] [facility] [address] [id number] [place] [address]- 9773 Dec, [facility] [address] [id number] [place] [address]- 5884 Dec, [facility] [place] [facility] [address] [id number] [place] [address]- 9209 Dec, [facility] [address] [id number] [place] [address]- 3735 Dec, [facility] [place] [facility] [address] [id number] [place] [address]- 9317 Nov, [facility] [address] [id number] [place] [address]- 2767 Nov, [facility] [place] [facility] [address] [id number] [place] [address]- 1434 Nov, [facility] [address] [id number] [place] [address]- 0258 Nov, [facility] [address] [id number] [place] [address]- 6981 Nov, [facility] [place] [facility] [address] [id number] [place] [address]- 3804 Nov, [facility] [address] [facility] [id number] [place] [address]- 6358 Nov, [facility] [address] [id number] [place] [address]- 0556 Oct, [facility] [place] [facility] [address] [id number] [place] [address]- 2835 Oct, [facility] [place] [facility] [address] [id number] [place] [address]- 3281 Oct, [facility] [place] [facility] [address] [id number] [place] [address]- 9944 Oct, [facility] [place] [facility] [address] [id number] [place] [address]- 6201 Sep, [facility] [place] [facility] [address] [id number] [place] [address]- 9951 Sep, [facility] [place] [facility] [address] [id number] [place] [address]- 1170 Sep, [facility] [place] [facility] [address] [id number] [place] [address]- 8488 Sep, [facility] [place] [facility] [address] [id number] [place] [address] 2549 Sep, [facility] [place] [facility] [address] [id number] [place] [address]- 0187 Sep, [facility] [place] [facility] [address] [id number] [place] [address]- 7039 Aug, [facility] [place] [facility] [address] [id number] [place] [address]- 0984 Aug, [facility] [place] [facility] [address] [id number] [place] [address]- 9379 Aug, [facility] [place] [facility] [address] [id number] [place] [address]- 1375 Aug, [facility] [place] [facility] [address] [id number] [place] [address]- 9462 Aug, [facility] [place] [facility] [address] [id number] [place] [address]- 8432 Aug, [facility] [place] [facility] [address] [id number] [place] [address]- 6162 Aug, [facility] [place] [facility] [address] [id number] [place] [address]- 7580 Jul, [facility] [place] [facility] [address] [id number] [place] [address]- 1637 Jul, [facility] [place] [facility] [address] [id number] [place] [address] 2545 Jun, [facility] [place] [facility] [address] [id number] [place] [address]- 4524 18 May, 2013 [facility] [address] [id number] [place] [address]- 3633 May, [facility] [place] [facility] [address] [id number] [place] [address]- 1254 10 May, 2013 [facility] [address] [id number] [place] [address]- 0633 Apr, [facility] [place] [facility] [address] [id number] [place] [address]- 7585 Apr, [facility] [address] [id number] [place] [address]- 3711 Apr, [facility] [address] [id number] [place] [address]- 6096 March, [facility] [address] [id number] [place] [address]- 7728 March, [facility] [address] [id number] [place] [address]- 6781 March, [facility] [address] [id number] [place] [address]- 6765 Feb, [facility] [place] [facility] [address] [id number] [place] [address]- 0068 Feb, [facility] [address] [id number] [place] [address]- 7401 15 Feb, 2013 [facility] [place] [facility] [address] [id number] [place] [address]- 7551 28 Jan, 2013 [facility] [place] [facility] [address] [id number] [place] [address]- 0576 19 Jan, 2013 [facility] [place] [facility] [address] [id number] [place] [address]- 4643 18 Jan, 2013 [facility] [place] [facility] [address] [id number] [place] [address]- 5814 15 Jan, 2013 [facility] [place] [facility] [address] [id number] [place] [address]- 1103 14 Jan, 2013 [facility] [address] [id number] [place] [address]- 0440 12 Jan, 2013 [facility] [place] [facility] [address] [id number] [place] [address]- 5022 05 Jan, 2013 [facility] [address] [id number] [place] [address]- 0175 28 Dec, 2012 [facility] [place] [facility] [address] [id number] [place] [address]- 0307 18 Dec, 2012 [facility] [address] [id number] [place] [address]- 3465 15 Dec, 2012 [facility] [address] [id number] [place] [address]- 6551 14 Dec, 2012 [facility] [address] [id number] [place] [address]- 6602 05 Dec, 2012 [facility] [address] [id number] [place] [address]- 8201 Nov, [facility] [address] [id number] [place] [address]- 4638 Nov, [facility] [address] [id number] [place] [address]- 3117 Nov, [facility] [address] [id number] [place] [address]- 5653 Nov, [facility] [place] [facility] [address] [id number] [place] [address]- 6311 Oct, [facility] [place] [facility] [address] [id number] [place] [address]- 8979 Oct, [facility] [place] [facility] [address] [id number] [place] [address]- 5259 Oct, [facility] [place] [facility] [address] [id number] [place] [address]- 9076 18 Oct, 2012 [facility] [place] [facility] [address] [id number] [place] [address]- 3272 Oct, [facility] [place] [facility] [address] [id number] [place] [address]- 7548 Oct, [facility] [place] [facility] [address] [facility] [id number] [place] [address]- 3205 Oct, [facility] [place] [facility] [address] [id number] [place] [address]- 5915 Oct, [facility] [place] [facility] [address] [id number] [place] 9773 Oct, [facility] [place] [facility] [address] [id number] [place] 4193 Sep, [facility] [place] [facility] [address] [id number] [place] [address]- 1799 Sep, [facility] [place] [facility] [address] [id number] [place] [address]- 4221 Sep, [facility] [place] [facility] [address] [id number] [place] [address]- 1585 Sep, [facility] [place] [facility] [address] [id number] [place] [address]- 1344 Sep, [facility] [place] [facility] [address] [id number] [place] [address]- 7181 Aug, [facility] [place] [facility] [address] [id number] [place] [address]- 7459 Aug, [facility] [place] [facility] [address] [id number] [place] [address]- 7373 Aug, [facility] [place] [facility] [address] [facility] [id number] [place] 4294 Aug, [facility] [place] [facility] [address] [facility] [id number] [place] 4707 Aug, [facility] [place] [facility] [address] [id number] [place] [address]- 8592 11 Aug, 2012 [facility] [place] [facility] [address] [id number] [place] [address]- 0298 11 Aug, 2012 [facility] [place] [facility] [address] [id number] [place] [address]- 8876 10 Aug, 2012 [facility] [address] [id number] [place] [address]- 1321 10 Aug, 2012 [facility] [place] [facility] [address] [id number] [place] [address]- 9130 09 Aug, 2012 [facility] [place] [facility] [address] [id number] [place] [address]- 5872 05 Aug, 2012 [facility] [place] [facility] [address] [id number] [place] [address] 04 Aug, 2012 [facility] [place] [facility] [address] [id number] [place] [address] 17 Jul, 2012 [facility] [place] [facility] [address] [id number] [place] [address] 13 Jul, 2012 [facility] [place] [facility] [address] [id number] [place] [address] 13 Jul, 2012 [facility] [place] [facility] [address] [id number] [place] [address] 11 Jul, 2012 [facility] [place] [facility] [address] [id number] [place] [address] 10 Jul, 2012 [facility] [place] [facility] [address] [id number] [place] [address] 08 Jul, 2012 [facility] [place] [facility] [address] [id number] [place] [address] 97[address] 16 Jun, 2012 [facility] [place] [facility] [address] [id number] [place] [address] 1998 14 Jun, 2012 [facility] [place] [facility] [address] [id number] [place] [address] 17 May, 2012 [facility] [place] [facility] [address] [id number] [place] [address]- [address] 17 May, 2012 [facility] [place] [facility] [address] [id number] [place] [address] May, [facility] [place] [facility] [address] [id number] [place] [address] May, [facility] [place] [facility] [address] [id number] [place] [address] Apr, [facility] [place] [facility] [address] [id number] [place] [address] Apr, [facility] [place] [facility] [address] [id number] [place] [address]- 78[address] Apr, [facility] [place] [facility] [address] [id number] [place] [address]- 95[address] Apr, [facility] [place] [facility] [address] [id number] [place] [address] Apr, [facility] [place] [facility] [address] [id number] [place] [address] March, [facility] [place] [facility] [address] [id number] [place] [address]- [address] March, [facility] [place] [facility] [address] [id number] [place] [address]- [address] March, [facility] [place] [facility] [address] [id number] [place] [address]- [address] March, [facility] [place] [facility] [address] [id number] [place] [address]- [address] March, [facility] [place] [facility] [address] [id number] [place] [address]- [address] 24 Feb, 2012 [facility] [place] [facility] [address] [id number] [place] [address]- [address] Feb, [facility] [place] [facility] [address] [id number] [place] [address] Jan, [facility] [address] [id number] [place] [address]- [address] Jan, [facility] [place] [facility] [address] [id number] [place] [address] 84[address] Jan, [facility] [place] [facility] [address] [id number] [place] [address] Dec, [facility] [place] [facility] [address] [id number] [place] [address]- 94[address] Nov, [facility] [place] [facility] [address] [id number] [place] [address] Nov, [facility] [place] [facility] [address] [id number] [place] [address] Nov, [facility] [address] [facility] [id number] [place] [address] Nov, [facility] [place] [facility] [address] [id number] [place] [address] Oct, [facility] [place] [facility] [address] [id number] [place] [address] Oct, [facility] [place] [facility] [address] [facility] [id number] [place] [address] Sep, [facility] [place] [facility] [address] [id number] [place] [address] Sep, [facility] [place] [facility] [address] [id number] [place] [address]- [address] Sep, [facility] [place] [facility] [address] [id number] [place] [address] Sep, [facility] [place] [facility] [address] [facility] [id number] [place] [address] 08 Sep, 2011 [facility] [place] [facility] [address] [facility] [id number] [place] [address] 16 Jun, 2011 [facility] [place] [facility] [address] [facility] [id number] [place] [address] 15 Dec, 2010 [facility] [address] [facility] [id number] [place] [address] Sep, [facility] [address] [facility] [id number] [place] [address] Aug, [facility] [address] [facility] [id number] [place] [address] Aug, [facility] [address] [facility] [id number] [place] [address] Aug, [facility] [address] [facility] [id number] [place] [address] Aug, [facility] [id number] [place] [address] Aug, [facility] [id number] [place] [address] Jun, [facility] [id number] [place] [address] Feb, [facility] [id number] [place] [address] Sep, [facility] [address] [id number] [place] [address] Aug, [facility] [id number] [place] [address] Apr, [facility] [address] [id number] [address] March, IMMUNIZATIONS No Known Immunizations SOCIAL HISTORY Never Assessed REASON FOR VISIT Liver ultrasound order PLAN OF CARE VITAL SIGNS MEDICATIONS Unknown Medications RESULTS No Results PROCEDURES No Known procedures INSTRUCTIONS MEDICATIONS ADMINISTERED No Known Medications MEDICAL (GENERAL) HISTORY Type Description Date Medical History Scoliosis Medical History Bipolar Surgical History right hip replacement Surgical History c-sections x4 Hospitalization History Pneumonia 2011
--- OUTSIDE RECORDS SUMMARY | 2018-06-10 20:02 | XMS REPORT ---
Author Author ASHOK ROMY [facility] Address [address] [place] [address] Care Team Providers Care Copier Repair Technician Name Role Phone ROMY PULIDO Unavailable PROBLEMS Type Condition ICD9-CM Code [id number] Code Onset Dates Condition Status SNOMED Code Problem Panic attacks F41.0 Active 774339181 Problem Mixed hyperlipidemia E78.2 Active 044511699 Problem 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 Active 47603379 Problem Anxiety state, unspecified F41.1 Active 512377893 Problem Retinitis pigmentosa H35.52 Active 45920547 Problem Other chronic pain G89.29 Active 77293365 Problem Lumbago with sciatica, right side M54.41 Active 821605698 Problem Cervical disc disorder at C5-C6 level with radiculopathy M50.122 Active 458967926 Problem Tension headache G44.209 Active 833093096 Problem Fibromyalgia M79.7 Active 865519678 Problem Calculus of gallbladder without cholecystitis without obstruction K80.20 Active 365838186 Problem Chest pain, unspecified type R07.9 Active 26681720 Problem Major depressive disorder, recurrent episode, moderate F33.1 Active 722817584 Problem Insomnia G47.00 Active 784001607 Problem Generalized anxiety disorder F41.1 Active 07624974 Problem Tobacco use Z72.0 Active 697014264 Problem Low back pain M54.5 Active 607602978 Problem Type 2 diabetes mellitus with hyperglycemia, without long-term current use of insulin E11.65 Active 79165068 ALLERGIES Substance Reaction Event Type Date Status Sulfamethoxazole-Trimethoprim Unknown Drug Allergy Sep, Active Codeine Sulfate Unknown Drug Allergy Sep, Active ENCOUNTERS Encounter Location Date Diagnosis [facility] [address] [facility] [id number] [address] March, Anxiety state, unspecified F41.1 [facility] [address] [place] [id number] [place] [address] 26769- 3360 Feb, [facility] [address] [address] Feb, Medicare annual wellness visit, initial Z00.00 ; Type 2 diabetes mellitus with hyperglycemia, without long-term current use of insulin E11.65 ; Major depressive disorder, recurrent episode, moderate F33.1 ; Mixed hyperlipidemia E78.2 ; Fibromyalgia M79.7 ; Retinitis pigmentosa H35.52 ; Panic attacks F41.0 ; Facial skin lesion L98.9 ; Fullness of neck R22.1 and Screening for colon cancer Z12.11 [place] [address] [address]- [address] 03 Feb, 2018 Type 2 diabetes mellitus with hyperglycemia, without long- term current use of insulin E11.65 [place] [address] 61379- 5463 Jan, [place] [address] 58466- 7116 Jan, Asymptomatic microscopic hematuria R31.21 ; Chest pain, unspecified type R07.9 and Generalized anxiety disorder F41.1 [place] [address] 61483- 5003 Jan, [place] [address] [place] [id number] [place] [address] 24234- 0921 Jan, [facility] [id number] [place] [address] 62613 -7582 Dec, [facility] [address] 12150- 9235 Dec, [facility] [address] 97774- 1287 Dec, [facility] [id number] [place] [address] 38790- 2736 Dec, [place] [address] [place] [address] 285[address] 14 Dec, 2017 [place] [address] 47540- 5965 13 Dec, 2017 Tension headache G44.209 [place] [address] 48376- 6440 09 Dec, 2017 Elevated LFTs R79.89 ; Type 2 diabetes mellitus with hyperglycemia, without long-term current use of insulin E11.65 ; Abdominal bloating R14.0 and Other fatigue R53.83 [place] [address] 82473- 8599 08 Dec, 2017 Elevated ALT measurement R74.0 [place] [address] 52188- 5940 Nov, Type 2 diabetes mellitus with hyperglycemia, without long- term current use of insulin E11.65 and Mixed hyperlipidemia E78.2 [place] [address] 61622- 5076 Oct, [place] [address] 06308- 2166 Oct, Elevated ALT measurement R74.0 [place] [address] [place] [id number] [place] [address] 00935- 3276 Oct, [place] [address] [place] [id number] [place] [address] 76524- 4065 Oct, [place] [address] 26229- 0528 Oct, Breast cancer screening Z12.31 [place] [address] 71998- 5924 Sep, Tension headache G44.209 ; Cervical disc disorder at C5-C6 level with radiculopathy M50.122 ; Other fatigue R53.83 ; Breast pain, left N64.4 ; Vertigo R42 and Abnormal tympanic membrane of left ear H73.92 [facility] [id number] [place] [address] 51071 -5800 Sep, Screening breast examination Z12.39 [place] [address] 14370- 7539 Sep, [place] [address] 73940- 8717 Sep, Mixed hyperlipidemia E78.2 and Type 2 diabetes mellitus with hyperglycemia, without long-term current use of insulin E11.65 [place] [address] 02104- 1382 Jul, [place] [address] 76584- 0759 Jul, Lumbago with sciatica, right side M54.41 and Other chronic pain G89.29 [place] [address] 85272- 7990 May, Type 2 diabetes mellitus with hyperglycemia, without long- term current use of insulin E11.65 ; Low back pain M54.5 ; Tobacco use Z72.0 ; Mixed hyperlipidemia E78.2 ; Lateral epicondylitis of right elbow M77.11 and 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 [place] [address] [id number] [place] [address] 16395- 3961 Apr, [place] [address] [place] [id number] [place] [address] 27477- 7854 Apr, Low back pain M54.5 [place] [address] [place] [id number] [place] [address] 93631- 6926 Apr, Pain in thoracic spine M54.6 [facility] [place] [address] 63671 -7555 March, Lumbosacral neuritis M54.17 [place] [address] 35823- 8065 March, Low back pain M54.5 [place] [address] [address] March, [facility] [address] [place] [id number] [place] [address] 07243- 4090 March, [facility] [address] [place] [id number] [place] [address] 69397- 4853 March, [facility] [address] [place] [id number] [place] [address] 63541- 9892 Feb, [facility] [address] [place] [id number] [place] [address] 47286- 8171 Feb, [facility] [address] [place] [id number] [place] [address] 94157- 8066 Feb, [facility] [address] [place] [id number] [place] [address] 40437- 6518 Feb, Low back pain M54.5 and Pain in thoracic spine M54.6 [place] [address] [place] [id number] [place] [address] 90214- 7138 Jan, Panic attacks F41.0 ; Type 2 diabetes mellitus with hyperglycemia, without long-term current use of insulin E11.65 and Other chest pain R07.89 [place] [address] [place] [id number] [place] [address] 59694- 8573 Jan, [place] [address] [place] [id number] [place] [address] 68227- 0847 Jan, Type 2 diabetes mellitus with hyperglycemia, without long- term current use of insulin E11.65 [place] [address] [place] [id number] [place] [address] 77236- 3459 Jan, Pain in thoracic spine M54.6 [place] [address] [place] [id number] [place] [address] 43086- 2906 Jan, Type 2 diabetes mellitus with hyperglycemia, without long- term current use of insulin E11.65 and Elevated liver enzymes R74.8 [place] [address] [place] [id number] [place] [address] 87108- 4448 Jan, [facility] [id number] [place] [address] 19094- 0478 Dec, Tobacco use Z72.0 ; Prediabetes R73.09 ; Elevated liver enzymes R74.8 ; Elevated fasting glucose R73.01 ; Elevated ALT measurement R74.0 ; Pain in thoracic spine M54.6 ; Panic attacks F41.0 and Type 2 diabetes mellitus with hyperglycemia, without long-term current use of insulin E11.65 [facility] [id number] [place] [address] 06579 -6108 Jun, Abdominal pain, right upper quadrant R10.11 [place] [address] [place] [id number] [place] [address] 91093- 4932 Jun, [place] [address] [place] [id number] [place] [address] 43462- 2074 Jun, [place] [address] [place] [id number] [place] [address] 42052- 1788 Jun, [facility] [address] [place] [id number] [place] [address] 98337- 8276 May, Routine gynecological examination Z01.419 ; Encounter for Papanicolaou smear for cervical cancer screening Z12.4 ; Screening breast examination Z12.39 ; Vaginal discharge N89.8 and Candidal vaginitis B37.3 [place] [address] [place] [address] 44977- 6664 May, [place] [address] [place] [id number] [place] [address] 52648- 6363 May, Prediabetes R73.09 ; Elevated ALT measurement R74.0 ; Elevated fasting glucose R73.01 and Palpitations R00.2 [place] [id number] [place] [address] 83355- 0414 Feb, [place] [address] [place] [id number] [place] [address] 48150- 5825 Feb, [place] [address] [place] [id number] [place] [address] 40305- 2821 Feb, Generalized anxiety disorder F41.1 and Major depressive disorder, recurrent episode, moderate F33.1 [facility] [address] [place] [id number] [place] [address] 77697- 4293 Feb, Generalized anxiety disorder F41.1 ; Low back pain M54.5 and Insomnia G47.00 [place] [address] 70882- 4709 Jan, Elevated fasting glucose R73.01 and Elevated ALT measurement R74.0 [place] [address] 15038- 3495 Jan, Generalized anxiety disorder F41.1 ; Low back pain M54.5 and Screening cholesterol level Z13.220 [place] [address] 14729- 7729 Dec, Scoliosis M41.9 and Anxiety F41.9 [facility] [address] [place] [id number] [place] [address] 17057- 7269 Feb, [facility] [address] 50166- 3650 Feb, [facility] [address] [place] [id number] [place] [address] 72581- 9711 Apr, [facility] [address] [place] [id number] [place] [address] 49019- 7367 March, [facility] [address] [place] [id number] [place] [address] 49332- 8119 March, [facility] [address] [place] [id number] [place] [address] 09337- 3363 March, [facility] [address] [place] [id number] [place] [address] 91411- 3875 March, [facility] [address] [place] [id number] [place] [address] 06520- 9071 March, [facility] [place] [facility] [address] [id number] [place] [address]- 9683 March, [facility] [place] [facility] [address] [id number] [place] [address]- 4001 March, [facility] [place] [facility] [address] [id number] [place] [address]- 8258 March, [facility] [place] [facility] [address] [id number] [place] [address]- 1624 Feb, [facility] [place] [facility] [address] [id number] [place] [address]- 9043 Feb, [facility] [place] [facility] [address] [id number] [place] [address]- 3324 Feb, [facility] [place] [facility] [address] [id number] [place] [address]- 9511 Feb, [facility] [place] [facility] [address] [id number] [place] [address]- 3472 Jan, [facility] [place] [facility] [address] [id number] [place] [address]- 2030 Jan, [facility] [place] [facility] [address] [id number] [place] [address]- 3913 Jan, [facility] [place] [facility] [address] [id number] [place] [address]- 4007 Jan, [facility] [place] [facility] [address] [id number] [place] [address]- 0093 Jan, [facility] [place] [facility] [address] [id number] [place] [address]- 0858 Jan, [facility] [place] [facility] [address] [id number] [place] [address]- 9520 Jan, [facility] [place] [facility] [address] [id number] [place] [address]- 8607 Dec, [facility] [place] [facility] [address] [id number] [place] [address]- 8269 Dec, [facility] [address] [id number] [place] [address]- 5782 Dec, [facility] [place] [facility] [address] [id number] [place] [address]- 2611 Dec, [facility] [place] [facility] [address] [id number] [place] [address]- 1986 Dec, [facility] [place] [facility] [address] [id number] [place] [address]- 5335 Dec, [facility] [place] [facility] [address] [id number] [place] [address]- 3888 Nov, [facility] [place] [facility] [address] [id number] [place] [address]- 1854 Nov, [facility] [address] [id number] [place] [address]- 5207 Nov, [facility] [place] [facility] [address] [id number] [place] [address]- 8538 Nov, [facility] [place] [facility] [address] [id number] [place] [address]- 0788 Nov, [facility] [place] [facility] [address] [facility] [id number] [place] [address]- 9256 Nov, [facility] [place] [facility] [address] [id number] [place] [address]- 8207 Nov, [facility] [place] [facility] [address] [id number] [address]- 7112 Oct, [facility] [place] [facility] [address] [id number] [place] [address]- 3364 Oct, [facility] [place] [facility] [address] [id number] [place] [address]- 7268 Oct, [facility] [place] [facility] [address] [id number] [place] 8939 Oct, [facility] [place] [facility] [address] [id number] [place] [address]- 5813 Sep, [facility] [place] [facility] [address] [id number] [place] 1209 Sep, [facility] [place] [facility] [address] [id number] [place] [address]- 8701 Sep, [facility] [place] [facility] [address] [id number] [place] [address]- 8460 Sep, [facility] [place] [facility] [address] [id number] [place] [address]- 5636 Sep, [facility] [place] [facility] [address] [id number] [place] [address]- 1359 Sep, [facility] [place] [facility] [address] [id number] [place] [address]- 2490 Aug, [facility] [place] [facility] [address] [id number] [place] [address]- 0332 Aug, [facility] [place] [facility] [address] [id number] [place] [address]- 9892 Aug, [facility] [place] [facility] [address] [id number] [place] [address]- 1095 Aug, [facility] [place] [facility] [address] [id number] [place] [address]- 2280 Aug, [facility] [place] [facility] [address] [id number] [place] [address]- 9911 Aug, [facility] [place] [facility] [address] [id number] [place] [address]- 3928 Aug, [facility] [place] [facility] [address] [id number] [place] [address]- 8452 Jul, [facility] [place] [facility] [address] [id number] [place] [address]- 1879 Jul, [facility] [place] [facility] [address] [id number] [place] [address]- 5543 Jun, [facility] [address] [id number] [place] [address]- 6097 May, [facility] [place] [facility] [address] [id number] [place] [address]- 0164 May, [facility] [place] [facility] [address] [id number] [place] [address]- 6421 May, [facility] [place] [facility] [address] [id number] [place] [address]- 5748 Apr, [facility] [place] [facility] [address] [id number] [place] [address]- 4757 Apr, [facility] [place] [facility] [address] [id number] [place] [address]- 1100 Apr, [facility] [place] [facility] [address] [id number] [place] [address]- 0122 March, [facility] [place] [facility] [address] [id number] [place] [address]- 4012 March, [facility] [address] [id number] [place] [address]- 2898 March, [facility] [place] [facility] [address] [id number] [place] [address]- 5363 Feb, [facility] [place] [facility] [address] [id number] [place] [address]- 7050 Feb, [facility] [place] [facility] [address] [id number] [place] [address]- 1711 15 Feb, 2013 [facility] [place] [facility] [address] [id number] [place] [address]- 7136 Jan, [facility] [place] [facility] [address] [id number] [place] [address]- 4629 Jan, [facility] [place] [facility] [address] [id number] [place] [address]- 4094 Jan, [facility] [place] [facility] [address] [id number] [place] [address]- 5746 15 Jan, 2013 [facility] [address] [id number] [place] [address]- 4766 14 Jan, 2013 [facility] [place] [facility] [address] [id number] [place] [address] 2546 12 Jan, 2013 [facility] [address] [id number] [place] [address]- 0096 05 Jan, 2013 [facility] [place] [facility] [address] [id number] [place] [address]- 8402 28 Dec, 2012 [facility] [place] [facility] [address] [id number] [place] [address]- 7496 18 Dec, 2012 [facility] [place] [facility] [address] [id number] [place] [address]- 2576 15 Dec, 2012 [facility] [place] [facility] [address] [id number] [place] [address]- 2354 14 Dec, 2012 [facility] [address] [id number] [place] [address]- 8837 05 Dec, 2012 [facility] [place] [facility] [address] [facility] [id number] [place] [address]- 3826 29 Nov, 2012 [facility] [address] [facility] [id number] [place] [address]- 1686 17 Nov, 2012 [facility] [place] [facility] [address] [facility] [id number] [place] [address]- 0946 Nov, [facility] [place] [facility] [address] [id number] [place] [address]- 2546 Nov, [facility] [place] [facility] [address] [id number] [place] [address]- 1356 31 Oct, 2012 [facility] [place] [facility] [address] [id number] [place] [address]- 2546 31 Oct, 2012 [facility] [place] [facility] [address] [facility] [id number] [place] [address]- 8157 Oct, [facility] [place] [facility] [address] [id number] [place] [address]- 9987 18 Oct, 2012 [facility] [place] [facility] [address] [id number] [place] [address]- 0630 Oct, [facility] [place] [facility] [address] [id number] [place] [address]- 6781 Oct, [facility] [place] [facility] [address] [id number] [place] [address]- 9796 Oct, [facility] [place] [facility] [address] [id number] [place] [address]- 7745 Oct, [facility] [place] [facility] [address] [id number] [place] [address]- 2560 Oct, [facility] [place] [facility] [address] [facility] [id number] [place] [address]- 6781 Sep, [facility] [place] [facility] [address] [id number] [place] [address]- 1766 Sep, [facility] [place] [facility] [address] [id number] [place] [address]- 2261 Sep, [facility] [place] [facility] [address] [facility] [id number] [address]- 6972 Sep, [facility] [place] [facility] [address] [id number] [address]- 0248 Sep, [facility] [place] [facility] [address] [id number] [address]- 3252 Aug, [facility] [place] [facility] [address] [id number] [place] [address]- 9896 Aug, [facility] [place] [facility] [address] [id number] [address] Aug, [facility] [place] [facility] [address] [facility] [id number] [address] Aug, [facility] [place] [facility] [address] [id number] [place] [address] 16 Aug, 2012 [facility] [place] [facility] [address] [id number] [place] [address] 11 Aug, 2012 [facility] [place] [facility] [address] [id number] [place] [address] 11 Aug, 2012 [facility] [place] [facility] [address] [id number] [place] [address] 1473 10 Aug, 2012 [facility] [place] [facility] [address] [id number] [place] [address] 10 Aug, 2012 [facility] [place] [facility] [address] [id number] [place] [address]- [address]26 09 Aug, 2012 [facility] [place] [facility] [address] [id number] [place] [address] 2765 05 Aug, 2012 [facility] [place] [facility] [address] [id number] [place] [address] 7660 04 Aug, 2012 [facility] [place] [facility] [address] [id number] [place] [address] 116[address] 17 Jul, 2012 [facility] [place] [facility] [address] [id number] [place] [address]- [address]62 13 Jul, 2012 [facility] [place] [facility] [address] [id number] [place] [address]- [address] 13 Jul, 2012 [facility] [place] [facility] [address] [id number] [place] [address]- 9711 11 Jul, 2012 [facility] [place] [facility] [address] [id number] [place] [address]170 10 Jul, 2011 [facility] [place] [facility] [address] [id number] [place] [address]- 1135 08 Jul, 2012 [facility] [place] [facility] [address] [id number] [place] [address]- [address] 16 Jun, 2012 [facility] [place] [facility] [address] [id number] [place] [address]- [address]258 14 Jun, 2012 [facility] [place] [facility] [address] [id number] [place] [address] 17 May, 2012 [facility] [place] [facility] [address] [id number] [place] [address]- [address] 17 May, 2012 [facility] [place] [facility] [address] [id number] [place] [address]- [address] May, [facility] [place] [facility] [address] [id number] [place] [address]- [address] May, [facility] [place] [facility] [address] [id number] [place] [address] Apr, [facility] [place] [facility] [address] [id number] [place] [address]- [address] Apr, [facility] [place] [facility] [address] [id number] [place] [address]- [address] Apr, [facility] [place] [facility] [address] [id number] [place] [address]- [address] Apr, [facility] [place] [facility] [address] [id number] [place] [address] Apr, [facility] [place] [facility] [address] [id number] [place] [address] March, [facility] [place] [facility] [address] [id number] [place] [address] March, [facility] [place] [facility] [address] [id number] [place] [address] March, [facility] [place] [facility] [address] [id number] [place] [address] March, [facility] [place] [facility] [address] [id number] [place] [address]- [address] March, [facility] [place] [facility] [address] [id number] [place] [address] 24 Feb, 2012 [facility] [place] [facility] [address] [id number] [place] [address] Feb, [facility] [place] [facility] [address] [id number] [place] [address] Jan, [facility] [place] [facility] [address] [id number] [place] [address] Jan, [facility] [place] [facility] [address] [id number] [place] [address] Jan, [facility] [place] [facility] [address] [id number] [place] [address]- 1769 Dec, [facility] [place] [facility] [address] [id number] [place] [address]- 94[address] Nov, [facility] [place] [facility] [address] [id number] [place] [address]- [address]21 Nov, [facility] [place] [facility] [address] [id number] [place] [address]- [address] Nov, [facility] [place] [facility] [address] [id number] [place] [address]- [address] Nov, [facility] [place] [facility] [address] [id number] [place] [address]- [address]326 Oct, [facility] [place] [facility] [address] [id number] [place] [address] Oct, [facility] [place] [facility] [address] [id number] [place] [address] Sep, [facility] [place] [facility] [address] [id number] [place] [address] 18 Sep, 2011 [facility] [place] [facility] [address] [id number] [place] [address] Sep, [facility] [place] [facility] [address] [id number] [place] [address] Sep, [facility] [place] [facility] [address] [id number] [place] [address] 08 Sep, 2011 [facility] [place] [facility] [id number] [address] Jun, [facility] [address] [facility] [id number] [address] Dec, [facility] [id number] [address] Sep, [facility] [address] [facility] [id number] [address] Aug, [facility] [address] [facility] [id number] [address] Aug, [facility] [id number] [address] Aug, [facility] [address] [facility] [id number] [address] Aug, [facility] [id number] [address] Aug, [facility] [id number] [address] Jun, [facility] [id number] [address] Feb, [facility] [id number] [address] Sep, [facility] [id number] [address] Aug, [facility] [address] [id number] [address] Apr, [facility] [id number] [address] March, IMMUNIZATIONS No Known Immunizations SOCIAL HISTORY Never Assessed REASON FOR VISIT Breast pain on kleft side -- osvaldo lieberman PLAN OF CARE Activity Details Follow Up as scheduled Reason: VITAL SIGNS Height 61 in 2017-10-03 Weight 169.0 lbs 2017-10-03 Temperature 97.6 degrees Fahrenheit 2017-10-03 Heart Rate 68 bpm 2017-10-03 Respiratory Rate 18 2017-10-03 BMI 31.93 kg/m2 2017-10-03 Blood pressure systolic 122 mmHg 2017-10-03 Blood pressure diastolic 70 mmHg 2017-10-03 MEDICATIONS Medication Instructions Dosage Frequency Start Date End Date Duration Status Rosuvastatin Calcium 20 mg Orally Once a day 1 tablet 24h March, 30 days Active Cyclobenzaprine HCl 10 mg Orally Three times a day 1 tablet as needed 8h March, Active Blood Glucose Monitor System w/Device ICD10- E11.65 2 times a day -3 times weekly. as directed Jan, Active Blood Glucose Test - and Lancets ICD10- E11.65 2 times a day- 3 times weekly as directed Jan, Active Metformin HCl 500 mg Orally Twice a day 1 tablet with meals 12h 30 Active RESULTS Name Result Date Reference Range MRI : Cervical w/o Contrast 2017-10-12 PROCEDURES Procedure Date Ordered Result Body Site [facility] VISIT ESTABLISHED PATIENT Oct 03, 2017 INSTRUCTIONS MEDICATIONS ADMINISTERED No Known Medications MEDICAL (GENERAL) HISTORY Type Description Date Medical History Scoliosis Medical History Bipolar Surgical History right hip replacement Surgical History c-sections x4 Hospitalization History Pneumonia 2011
--- OUTSIDE RECORDS SUMMARY | 2018-06-10 20:03 | XMS REPORT ---
Author Author ASHOK ROMY [facility] Address [address] [place] [address] Care Team Providers Care [employer] Supervisor Name Role Phone ROMY PULIDO Unavailable PROBLEMS Type Condition ICD9-CM Code JKY69-PV Code Onset Dates Condition Status SNOMED Code Problem Panic attacks F41.0 Active 243304469 Problem Mixed hyperlipidemia E78.2 Active 073506918 Problem 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 Active 29206744 Problem Anxiety state, unspecified F41.1 Active 682496866 Problem Retinitis pigmentosa H35.52 Active 09031460 Problem Other chronic pain G89.29 Active 41033169 Problem Lumbago with sciatica, right side M54.41 Active 675101681 Problem Cervical disc disorder at C5-C6 level with radiculopathy M50.122 Active 860348405 Problem Tension headache G44.209 Active 729656035 Problem Fibromyalgia M79.7 Active 586362887 Problem Calculus of gallbladder without cholecystitis without obstruction K80.20 Active 540499664 Problem Chest pain, unspecified type R07.9 Active 01912272 Problem Major depressive disorder, recurrent episode, moderate F33.1 Active 325882759 Problem Insomnia G47.00 Active 835635273 Problem Generalized anxiety disorder F41.1 Active 17674161 Problem Tobacco use Z72.0 Active 202150805 Problem Low back pain M54.5 Active 459752395 Problem Type 2 diabetes mellitus with hyperglycemia, without long-term current use of insulin E11.65 Active 02277180 ALLERGIES Substance Reaction Event Type Date Status Sulfamethoxazole-Trimethoprim Unknown Drug Allergy Nov, Active Codeine Sulfate Unknown Drug Allergy Nov, Active ENCOUNTERS Encounter Location Date Diagnosis [facility] [address] [facility] [id number] [address] Apr, Type 2 diabetes mellitus with hyperglycemia, without long- term current use of insulin E11.65 [place] [id number] [place] [address] 55215- 4241 March, Anxiety state, unspecified F41.1 [place] [address] [place] [id number] [place] [address] 01565- 5427 Feb, [place] [address] [place] [id number] [place] [address] 43169- 2247 Feb, Medicare annual wellness visit, initial Z00.00 ; Type 2 diabetes mellitus with hyperglycemia, without long-term current use of insulin E11.65 ; Major depressive disorder, recurrent episode, moderate F33.1 ; Mixed hyperlipidemia E78.2 ; Fibromyalgia M79.7 ; Retinitis pigmentosa H35.52 ; Panic attacks F41.0 ; Facial skin lesion L98.9 ; Fullness of neck R22.1 and Screening for colon cancer Z12.11 [place] [address] [place] [id number] [place] [address] 37969- 4112 Feb, Type 2 diabetes mellitus with hyperglycemia, without long- term current use of insulin E11.65 [place] [address] [place] [id number] [place] [address] 52149- 3283 Jan, [place] [address] [place] [id number] [place] [address] 21161- 0734 Jan, Asymptomatic microscopic hematuria R31.21 ; Chest pain, unspecified type R07.9 and Generalized anxiety disorder F41.1 [place] [address] [place] [id number] [place] [address] 04265- 3099 Jan, [place] [address] [place] [id number] [place] [address] 81491- 0644 Jan, [facility] [id number] [place] [address] 57640 -7396 Dec, [facility] [address] [place] [id number] [place] [address] 60457- 8982 Dec, [place] [address] [place] [id number] [place] [address] 44657- 4950 Dec, [place] [address] [place] [id number] [place] [address] 92548- 1887 Dec, [place] [address] 51210- 1054 Dec, [place] [address] 52048- 3047 Dec, Tension headache G44.209 [place] [address] [place] [id number]- 0969 Dec, Elevated LFTs R79.89 ; Type 2 diabetes mellitus with hyperglycemia, without long-term current use of insulin E11.65 ; Abdominal bloating R14.0 and Other fatigue R53.83 [place] [address] [place] [id number] [place] [address] 63428- 8074 08 Dec, 2017 Elevated ALT measurement R74.0 [place] [address] 24873- 4238 Nov, Type 2 diabetes mellitus with hyperglycemia, without long- term current use of insulin E11.65 and Mixed hyperlipidemia E78.2 [place] [address] 82263- 9669 Oct, [place] [address] [place] [id number] [place] [address] 44223- 1906 Oct, Elevated ALT measurement R74.0 [place] [address] [place] [id number] [place] [address] 15953- 4335 Oct, [place] [address] [place] [id number] [place] [address] 22922- 1722 Oct, [place] [address] 68504- 0145 Oct, Breast cancer screening Z12.31 [place] [address] [place] [id number] [place] [address] 87913- 2117 Sep, Tension headache G44.209 ; Cervical disc disorder at C5-C6 level with radiculopathy M50.122 ; Other fatigue R53.83 ; Breast pain, left N64.4 ; Vertigo R42 and Abnormal tympanic membrane of left ear H73.92 [facility] [place] [address] [place] [id number] [place] [address] 43187 -1784 Sep, Screening breast examination Z12.[address] 38243- 6112 Sep, [place] [address] 53511- 5992 Sep, Mixed hyperlipidemia E78.2 and Type 2 diabetes mellitus with hyperglycemia, without long-term current use of insulin E11.[address] 28128- 7318 Jul, [address] 29345- 8020 Jul, Lumbago with sciatica, right side M54.41 and Other chronic pain G89.[address] 05282- 2911 May, Type 2 diabetes mellitus with hyperglycemia, without long- term current use of insulin E11.65 ; Low back pain M54.5 ; Tobacco use Z72.0 ; Mixed hyperlipidemia E78.2 ; Lateral epicondylitis of right elbow M77.11 and 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 [place] [address] [place] [id number] [place] [address] 86497- 1299 Apr, [place] [address] [place] [id number] [place] [address] 84757- 8935 Apr, Low back pain M54.[address] 91455- 1319 Apr, Pain in thoracic spine M54.6 [facility] [address] [place] [id number] [place] [address] 44742 -8130 March, Lumbosacral neuritis M54.17 [facility] [address] [address] 1008 March, Low back pain M54.5 [facility] [address] [place] [id number] [place] [address] 03449- 9931 March, [facility] [address] [place] [id number] [place] [address] 98996- 8163 March, [facility] [address] [place] [id number] [place] [address] 56085- 1070 March, [facility] [address] [place] [id number] [place] [address] 75065- 4636 Feb, [facility] [address] [place] [id number] [place] [address] 77589- 0353 Feb, [facility] [address] [place] [id number] [place] [address] 80357- 3253 Feb, [facility] [address] [place] [id number] [place] [address] 35666- 6767 Feb, Low back pain M54.5 and Pain in thoracic spine M54.6 [facility] [address] [place] [id number] [place] [address] 47216- 5193 Jan, Panic attacks F41.0 ; Type 2 diabetes mellitus with hyperglycemia, without long-term current use of insulin E11.65 and Other chest pain R07.89 [facility] [address] [id number] [address] 6507 Jan, [facility] [address] [place] [id number] [place] [address] 47925- 4010 Jan, Type 2 diabetes mellitus with hyperglycemia, without long- term current use of insulin E11.65 [facility] [address] [place] [address] 17972- 4027 Jan, Pain in thoracic spine M54.6 [facility] [address] [place] [address] 40777- 5746 Jan, Type 2 diabetes mellitus with hyperglycemia, without long- term current use of insulin E11.65 and Elevated liver enzymes R74.8 [facility] [address] [place] [id number] [place] [address] 42814- 5764 Jan, [facility] [address] [place] [id number] [place] [address] 48331- 2416 Dec, Tobacco use Z72.0 ; Prediabetes R73.09 ; Elevated liver enzymes R74.8 ; Elevated fasting glucose R73.01 ; Elevated ALT measurement R74.0 ; Pain in thoracic spine M54.6 ; Panic attacks F41.0 and Type 2 diabetes mellitus with hyperglycemia, without long-term current use of insulin E11.65 [facility] [address] [place] [id number] [place] [address] 55095 -8912 Jun, Abdominal pain, right upper quadrant R10.11 [place] [address] [place] [id number] [place] [address] 76864- 5435 Jun, [place] [address] [place] [id number] [place] [address] 61061- 5466 Jun, [place] [address] [place] [id number] [place] [address] 41482- 0494 Jun, [place] [address] [place] [id number] [place] [address] 16886- 8019 May, Routine gynecological examination Z01.419 ; Encounter for Papanicolaou smear for cervical cancer screening Z12.4 ; Screening breast examination Z12.39 ; Vaginal discharge N89.8 and Candidal vaginitis B37.3 [place] [address] [place] [address] 32771- 0021 May, [place] [address] [place] [id number] [place] [address] 09865- 4842 May, Prediabetes R73.09 ; Elevated ALT measurement R74.0 ; Elevated fasting glucose R73.01 and Palpitations R00.2 [place] [address] [place] [id number] [place] [address] 93203- 6208 Feb, [facility] [address] [place] [id number] [place] [address] 36735- 9735 Feb, [facility] [address] 53195- 5206 Feb, Generalized anxiety disorder F41.1 and Major depressive disorder, recurrent episode, moderate F33.1 [facility] [address] 42313- 4863 Feb, Generalized anxiety disorder F41.1 ; Low back pain M54.5 and Insomnia G47.00 [place] [address] 73318- 8758 Jan, Elevated fasting glucose R73.01 and Elevated ALT measurement R74.0 [place] [address] 91421- 6214 Jan, Generalized anxiety disorder F41.1 ; Low back pain M54.5 and Screening cholesterol level Z13.220 [place] [address] [place] [id number] [place] [address] 49997- 6214 Dec, Scoliosis M41.9 and Anxiety F41.9 [facility] [address] [place] [id number] [place] [address] 91374- 8484 Feb, [facility] [address] [place] [id number] [place] [address] 89617- 3184 Feb, [facility] [address] [place] [id number] [place] [address] 71226- 2957 Apr, [facility] [address] [place] [id number] [place] [address] 50661- 1392 March, [facility] [address] 60495- 7354 March, [facility] [address] [place] [id number] [place] [address] 24644- 3069 March, [facility] [address] [place] [address]- 1242 March, [facility] [place] [facility] [address] [id number] [place] [address]- 9016 March, [facility] [place] [facility] [address] [id number] [place] 8380 March, [facility] [place] [facility] [address] [id number] [place] [address]- 3235 March, [facility] [place] [facility] [address] [id number] [place] [address]- 2507 March, [facility] [place] [facility] [address] [id number] [place] [address]- 7849 Feb, [facility] [place] [facility] [address] [id number] [place] [address]- 0536 Feb, [facility] [place] [facility] [address] [id number] [place] [address]- 9996 Feb, [facility] [place] [facility] [address] [id number] [place] [address]- 5987 Feb, [facility] [place] [facility] [address] [id number] [place] [address]- 4277 Jan, [facility] [place] [facility] [address] [id number] [place] [address]- 1549 Jan, [facility] [place] [facility] [address] [id number] [place] [address]- 7331 Jan, [facility] [place] [facility] [address] [id number] [place] [address]- 4854 Jan, [facility] [place] [facility] [address] [id number] [place] [address]- 9810 Jan, [facility] [place] [facility] [address] [id number] [place] [address]- 8793 Jan, [facility] [place] [facility] [address] [id number] [place] [address]- 5220 Jan, [facility] [place] [facility] [address] [id number] [place] [address]- 2645 Dec, [facility] [place] [facility] [address] [id number] [place] [address]- 1208 Dec, [facility] [place] [facility] [address] [id number] [place] [address]- 2846 Dec, [facility] [place] [facility] [address] [id number] [place] [address]- 1517 Dec, [facility] [place] [facility] [address] [id number] [place] [address]- 0207 Dec, [facility] [place] [facility] [address] [id number] [place] [address]- 0764 Dec, [facility] [place] [facility] [address] [id number] [place] [address]- 5698 Nov, [facility] [place] [facility] [address] [id number] [place] [address]- 1061 Nov, [facility] [place] [facility] [address] [id number] [place] [address]- 6751 Nov, [facility] [place] [facility] [address] [facility] [id number] [place] [address]- 1890 Nov, [facility] [place] [facility] [address] [id number], [place] [address]- 3756 Nov, [facility] [place] [facility] [address] [id number], [place] [address]- 9268 Nov, [facility] [place] [facility] [address] [id number] [place] [address]- 5948 Nov, [facility] [place] [facility] [address] [id number] [place] [address]- 0686 Oct, [facility] [place] [facility] [address] [id number]- 1949 Oct, [facility] [place] [facility] [address] [id number], [place] [address]- 8235 Oct, [facility] [place] [facility] [address] [id number] [place] [address]- 7122 Oct, [facility] [place] [facility] [address] [facility] [id number], [place] [address]- 3708 Sep, [facility] [place] [facility] [address] [facility] [id number] [place] [address]- 2218 Sep, [facility] [place] [facility] [address] [id number], [place] [address]- 1088 Sep, [facility] [place] [facility] [address] [facility] [id number] [place] [address], [place] [address]- 7418 Sep, [facility] [place] [facility] [address] [facility] [id number], [place] [address]- 1817 Sep, [facility] [place] [facility] [address] [id number], [place] [address]- 9435 Sep, [facility] [place] [facility] [address] [facility] [id number], [place] [address]- 8751 Aug, [facility] [place] [facility] [address] [facility] [id number], [place] [address]- 3856 Aug, [facility] [place] [facility] [address] [facility] [id number], [place] [address]- 7652 Aug, [facility] [place] [facility] [address] [facility] [id number], [place] [address]- 8214 Aug, [facility] [place] [facility] [address] [facility] [id number], [place] [address]- 9602 Aug, [facility] [place] [facility] [address] [facility] [id number]- 7036 Aug, [facility] [place] [facility] [address] [facility] [id number] 6331 Aug, [facility] [place] [facility] [address] [facility] [id number], [place] [address]- 5408 Jul, [facility] [place] [facility] [address] [id number] [place] [address]- 3055 Jul, [facility] [address] [id number] [place] [address]- 4818 Jun, [facility] [place] [facility] [address] [id number] [place] [address] 2546 May, [facility] [place] [facility] [address] [id number] [place] [address]- 1631 May, [facility] [place] [facility] [address] [id number] [place] [address]- 2094 May, [facility] [place] [facility] [address] [id number] [place] [address]- 2453 Apr, [facility] [place] [facility] [address] [id number] [place] [address]- 0067 Apr, [facility] [place] [facility] [address] [id number] [place] [address]- 9958 Apr, [facility] [place] [facility] [address] [id number] [place] [address]- 6705 March, [facility] [place] [facility] [address] [id number] [place] [address]- 8418 March, [facility] [place] [facility] [address] [id number] [place] [address]- 9016 March, [facility] [place] [facility] [address] [id number] [place] [address]- 7346 Feb, [facility] [place] [facility] [address] [id number] [place] [address]- 6666 Feb, [facility] [place] [facility] [address] [id number] [place] [address]- 3641 15 Feb, 2013 [facility] [place] [facility] [address] [id number] [place] [address]- 3376 28 Jan, 2013 [facility] [place] [facility] [address] [id number] [place] [address]- 0052 19 Jan, 2013 [facility] [address] [id number] [place] [address]- 3100 18 Jan, 2013 [facility] [place] [facility] [address] [id number] [place] [address]- 3206 15 Jan, 2013 [facility] [place] [facility] [address] [id number] [place] [address]- 5873 14 Jan, 2013 [facility] [place] [facility] [address] [id number] [place] [address]- 8155 12 Jan, 2013 [facility] [place] [facility] [address] [id number] [place] [address]- 3158 05 Jan, 2013 [facility] [place] [facility] [address] [id number] [place] [address]- 9823 28 Dec, 2012 [facility] [place] [facility] [address] [id number] [place] [address]- 1602 18 Dec, 2012 [facility] [place] [facility] [address] [id number] [place] [address]- 3091 15 Dec, 2012 [facility] [place] [facility] [address] [id number] [place] [address]- 8553 14 Dec, 2012 [facility] [place] [facility] [address] [id number] [place] [address]- 0854 05 Dec, 2012 [facility] [place] [facility] [address] [id number] [place] [address]- 1417 Nov, [facility] [place] [facility] [address] [id number] [place] [address]- 9828 Nov, [facility] [place] [facility] [address] [id number] [place] [address]- 5409 Nov, [facility] [place] [facility] [address] [id number] [place] [address]- 2962 Nov, [facility] [place] [facility] [address] [id number] [place] [address]- 2836 Oct, [facility] [place] [facility] [address] [id number] [place] [address]- 1152 31 Oct, 2012 [facility] [place] [facility] [address] [id number] [place] [address]- 1134 Oct, [facility] [place] [facility] [address] [id number] [place] [address]- 5331 18 Oct, 2012 [facility] [place] [facility] [address] [id number] [place] [address]- 0046 Oct, [facility] [place] [facility] [address] [id number] [place] [address]- 7744 Oct, [facility] [place] [facility] [address] [id number] [place] 5971 Oct, [facility] [place] [facility] [address] [id number] [place] [address]- 6683 Oct, [facility] [place] [facility] [address] [id number] [place] [address]- 3937 Oct, [facility] [place] [facility] [address] [id number] [place] [address]- 6500 16 Sep, 2012 [facility] [place] [facility] [address] [id number] [place] [address]- 6531 16 Sep, 2012 [facility] [place] [facility] [address] [id number] [place] [address]- 4258 Sep, [facility] [place] [facility] [address] [id number] [place] [address]- 4247 Sep, [facility] [place] [facility] [address] [id number] [place] [address]- 7198 Sep, [facility] [place] [facility] [address] [id number] [place] [address]- 9205 Aug, [facility] [place] [facility] [address] [id number] [place] [address]- 6936 Aug, [facility] [place] [facility] [address] [id number] [place] [address] Aug, [facility] [place] [facility] [address] [id number] [place] [address] 17 Aug, 2012 [facility] [place] [facility] [address] [id number] [place] [address] 16 Aug, 2012 [facility] [place] [facility] [address] [id number] [place] [address] 11 Aug, 2012 [facility] [place] [facility] [address] [id number] [place] [address] 11 Aug, 2012 [facility] [place] [facility] [address] [id number] [place] [address] 10 Aug, 2012 [facility] [place] [facility] [address] [id number] [place] [address] 10 Aug, 2012 [facility] [place] [facility] [address] [id number] [place] [address] 09 Aug, 2012 [facility] [place] [facility] [address] [id number] [place] [address] 05 Aug, 2012 [facility] [place] [facility] [address] [id number] [place] [address] 04 Aug, 2012 [facility] [place] [facility] [address] [id number] [place] [address] 17 Sep, 2011 [facility] [place] [facility] [address] [id number], [place] [address] 13 Sep, 2011 [facility] [place] [facility] [address] [id number], [place] [address] 13 Sep, 2011 [facility] [place] [facility] [address] [id number] [place] [address] 11 Sep, 2011 [facility] [place] [facility] [address] [id number] [place] [address]703 10 Sep, 2011 [facility] [place] [facility] [address] [id number] [place] [address] 117[address] 08 Sep, 2011 [facility] [place] [facility] [address] [id number] [place] [address] 16 Jun, 2012 [facility] [place] [facility] [address] [id number] [place] [address] 14 Jun, 2012 [facility] [place] [facility] [address] [id number] [place] [address]- [address] 17 May, 2012 [facility] [place] [facility] [address] [id number] [place] [address] 17 May, 2012 [facility] [place] [facility] [address] [id number] [place] [address] 13 May, 2012 [facility] [place] [facility] [address] [id number] [place] [address] May, [facility] [place] [facility] [address] [id number] [place] [address] Apr, [facility] [place] [facility] [address] [id number] [place] [address] Apr, [facility] [place] [facility] [address] [id number] [place] [address] Apr, [facility] [place] [facility] [address] [id number] [place] [address] Apr, [facility] [place] [facility] [address] [id number] [place] [address] Apr, [facility] [place] [facility] [address] [id number] [place] [address] March, [facility] [place] [facility] [address] [id number] [place] [address] March, [facility] [place] [facility] [address] [id number] [place] [address] March, [facility] [place] [facility] [address] [id number] [place] [address] March, [facility] [place] [facility] [address] [id number] [place] [address] March, [facility] [place] [facility] [address] [id number] [place] [address] 24 Feb, 2012 [facility] [place] [facility] [address] [id number] [place] [address] Feb, [facility] [place] [facility] [address] [id number] [place] [address] Jan, [facility] [place] [facility] [address] [id number] [place] [address] Jan, [facility] [place] [facility] [address] [id number] [place] [address] Jan, [facility] [place] [facility] [address] [id number] [place] [address] Dec, [facility] [place] [facility] [address] [id number] [place] [address] Nov, [facility] [place] [facility] [address] [id number] [place] [address] Nov, [facility] [place] [facility] [address] [id number] [place] [address] Nov, [facility] [place] [facility] [address] [id number] [place] [address] Nov, [facility] [place] [facility] [address] [address] [id number] [place] [address] Oct, [facility] [place] [facility] [address] [id number] [place] [address] Oct, [facility] [place] [facility] [address] [id number] [place] [address] Sep, [facility] [place] [facility] [address] [id number] [place] [address] Sep, [facility] [place] [facility] [address] [id number] [place] [address] Sep, [facility] [place] [facility] [address] [id number] [place] [address] 10 Sep, 2011 [facility] [address] [facility] [place] [id number] [place] [address] Sep, [facility] [address] [facility] [place] [id number], [place] [address] 16 Jun, 2011 [facility] [address] [facility] [place] [id number], [place] [address] Dec, [facility] [address] [facility] [place] [id number], [place] [address] Sep, [facility] [address] [facility] [place] [id number] [place] [address] Aug, [facility] [address] [facility] [place] [id number] [address] Aug, [facility] [address] [facility] [place] [id number], [place] [address] Aug, [facility] [address] [facility] [place] [id number], [place] [address] Aug, [facility] [address] [facility] [place] [id number], [place] [address] Aug, [facility] [address] [facility] [place] [id number], [place] [address] Jun, [facility] [address] [facility] [place] [id number], [place] [address] Feb, [facility] [address] [facility] [place] [id number], [place] [address] Sep, [facility] [address] [facility] [place] [id number][place] [address] Aug, [facility] [address] [facility] [place] [id number], [place] [address] Apr, [facility] [address] [facility] [place] [id number] [address] March, IMMUNIZATIONS No Known Immunizations SOCIAL HISTORY Never Assessed REASON FOR VISIT DM fu -- osvaldo lieberman PLAN OF CARE Activity Details Follow Up 3 Months Reason:DMII VITAL SIGNS Height 61 in 2017-11-22 Weight 170 lbs 2017-11-22 Temperature 98.0 degrees Fahrenheit 2017-11-22 Heart Rate 78 bpm 2017-11-22 Respiratory Rate 20 2017-11-22 BMI 32.12 kg/m2 2017-11-22 Blood pressure systolic 128 mmHg 2017-11-22 Blood pressure diastolic 72 mmHg 2017-11-22 MEDICATIONS Medication Instructions Dosage Frequency Start Date End Date Duration Status Blood Glucose Monitor System w/Device ICD10- E11.65 2 times a day -3 times weekly. as directed Jan, Active Cyclobenzaprine HCl 10 mg Orally Three times a day 1 tablet as needed 8h March, Active Metformin HCl 500 mg Orally Twice a day 1 tablet with meals 12h Active Rosuvastatin Calcium 20 mg Orally Once a day 1 tablet 24h March, Active Blood Glucose Test - and Lancets ICD10- E11.65 2 times a day- 3 times weekly as directed Jan, Active RESULTS Name Result Date Reference Range A1C (IN HOUSE) 2017-11-22 A1C IN HOUSE 6.7 4.3 - 5.6 % Previous A1c 6.0 Lot [id number] Exp date 01/2019 PROCEDURES Procedure Date Ordered Result Body Site GLYCATED HEMOGLOBIN TEST Nov 22, 2017 [facility] VISIT ESTABLISHED PATIENT Nov 22, 2017 INSTRUCTIONS MEDICATIONS ADMINISTERED No Known Medications MEDICAL (GENERAL) HISTORY Type Description Date Medical History Scoliosis Medical History Bipolar Surgical History right hip replacement Surgical History c-sections x4 Hospitalization History Pneumonia 2011
--- OUTSIDE RECORDS SUMMARY | 2018-06-10 20:04 | XMS REPORT ---
Author Author ASHOK ROMY [facility] Address [address] [place] [address] Care Team Providers Care Crisis Manager Name Role Phone ROMY PULIDO Unavailable PROBLEMS Type Condition ICD9-CM Code QPK88-IT Code Onset Dates Condition Status SNOMED Code Problem Panic attacks F41.0 Active 191240830 Problem Mixed hyperlipidemia E78.2 Active 177677941 Problem 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 Active 64534414 Problem Anxiety state, unspecified F41.1 Active 651044383 Problem Retinitis pigmentosa H35.52 Active 19108962 Problem Other chronic pain G89.29 Active 84773544 Problem Lumbago with sciatica, right side M54.41 Active 668040427 Problem Cervical disc disorder at C5-C6 level with radiculopathy M50.122 Active 325826869 Problem Tension headache G44.209 Active 956833159 Problem Fibromyalgia M79.7 Active 228613022 Problem Calculus of gallbladder without cholecystitis without obstruction K80.20 Active 886645635 Problem Chest pain, unspecified type R07.9 Active 50027327 Problem Major depressive disorder, recurrent episode, moderate F33.1 Active 157120012 Problem Insomnia G47.00 Active 319864517 Problem Generalized anxiety disorder F41.1 Active 62014290 Problem Tobacco use Z72.0 Active 229527401 Problem Low back pain M54.5 Active 239458125 Problem Type 2 diabetes mellitus with hyperglycemia, without long-term current use of insulin E11.65 Active 11866863 ALLERGIES No Information ENCOUNTERS Encounter Location Date Diagnosis [facility] [address] [address] March, Anxiety state, unspecified F41.1 [facility] [id number] [address] Feb, [facility] [address] [address] Feb, Medicare annual wellness visit, initial Z00.00 ; Type 2 diabetes mellitus with hyperglycemia, without long-term current use of insulin E11.65 ; Major depressive disorder, recurrent episode, moderate F33.1 ; Mixed hyperlipidemia E78.2 ; Fibromyalgia M79.7 ; Retinitis pigmentosa H35.52 ; Panic attacks F41.0 ; Facial skin lesion L98.9 ; Fullness of neck R22.1 and Screening for colon cancer Z12.11 [facility] [id number] [place] [address] 40267- 3666 Feb, Type 2 diabetes mellitus with hyperglycemia, without long- term current use of insulin E11.65 [facility] [id number] [place] [address] 81652- 0080 Jan, [facility] [id number] [place] [address] 23792- 6434 Jan, Asymptomatic microscopic hematuria R31.21 ; Chest pain, unspecified type R07.9 and Generalized anxiety disorder F41.1 [facility] [id number] [place] [address] 65284- 9570 Jan, [facility] [id number] [place] [address] 02766- 6349 Jan, [facility] [address] [address] Dec, [facility] [id number] [place] [address] 89385- 2944 Dec, [facility] [id number] [place] [address] 82533- 4793 Dec, [facility] [id number] [place] [address] 10579- 9942 Dec, [facility] [id number] [place] [address] 97483- 0474 Dec, [facility] [id number] [place] [address] 66767- 3673 13 Dec, 2017 Tension headache G44.209 [facility] [address] [address]43- 3366 09 Dec, 2017 Elevated LFTs R79.89 ; Type 2 diabetes mellitus with hyperglycemia, without long-term current use of insulin E11.65 ; Abdominal bloating R14.0 and Other fatigue R53.83 [facility] [address] [address]- [address] 08 Dec, 2017 Elevated ALT measurement R74.0 [facility] [address] 11431- 6553 Nov, Type 2 diabetes mellitus with hyperglycemia, without long- term current use of insulin E11.65 and Mixed hyperlipidemia E78.2 [facility] [address] 34546- 5812 Oct, [facility] [address] 74023- 5640 Oct, Elevated ALT measurement R74.0 [facility] [address] 32225- 5104 Oct, [facility] [address] 19922- 3457 Oct, [facility] [address] 24665- 7217 Oct, Breast cancer screening Z12.31 [facility] [address] 19433- 6542 Sep, Tension headache G44.209 ; Cervical disc disorder at C5-C6 level with radiculopathy M50.122 ; Other fatigue R53.83 ; Breast pain, left N64.4 ; Vertigo R42 and Abnormal tympanic membrane of left ear H73.92 [facility] [id number] [place] [address] 61144 -4311 Sep, Screening breast examination Z12.39 [facility] [id number] [place] [address] 88025- 3169 Sep, [facility] [id number] [place] [address] 01609- 8337 Sep, Mixed hyperlipidemia E78.2 and Type 2 diabetes mellitus with hyperglycemia, without long-term current use of insulin E11.65 [facility] [address] [address]- 1983 Jul, [facility] [address] 17161- 9419 Jul, Lumbago with sciatica, right side M54.41 and Other chronic pain G89.29 [facility] [id number] [place] [address] 25952- 0004 May, Type 2 diabetes mellitus with hyperglycemia, without long- term current use of insulin E11.65 ; Low back pain M54.5 ; Tobacco use Z72.0 ; Mixed hyperlipidemia E78.2 ; Lateral epicondylitis of right elbow M77.11 and 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 [facility] [id number] [place] [address] 75081- 9423 Apr, [facility] [id number] [place] [address] 08666- 3291 Apr, Low back pain M54.5 [facility] [id number] [place] [address] 04655- 9459 Apr, Pain in thoracic spine M54.6 [facility] [id number] [place] [address] 92402 -5831 March, Lumbosacral neuritis M54.17 [facility] [id number] [place] [address] 83133- 7498 March, Low back pain M54.5 [facility] [id number] [place] [address] 47608- 8598 March, [facility] [address] [address] 26[address] March, [facility] [id number] [place] [address] 11777- 8974 March, [facility] [id number] [place] [address] 50037- 7401 Feb, [facility] [id number] [place] [address] 15012- 6071 Feb, [facility] [id number] [place] [address] 08991- 9211 Feb, [facility] [id number] [place] [address] 34360- 0677 Feb, Low back pain M54.5 and Pain in thoracic spine M54.6 [facility] [id number] [place] [address] 83984- 4737 Jan, Panic attacks F41.0 ; Type 2 diabetes mellitus with hyperglycemia, without long-term current use of insulin E11.65 and Other chest pain R07.89 [facility] [id number] [place] [address] 97010- 9105 Jan, [facility] [id number] [place] [address] 04452- 6408 Jan, Type 2 diabetes mellitus with hyperglycemia, without long- term current use of insulin E11.65 [facility] [address] [place] [address] 04111- 3836 Jan, Pain in thoracic spine M54.6 [facility] [address] [place] [address] 44459- 7945 Jan, Type 2 diabetes mellitus with hyperglycemia, without long- term current use of insulin E11.65 and Elevated liver enzymes R74.8 [facility] [id number] [place] [address] 73536- 0703 Jan, [facility] [id number] [place] [address] 29826- 6229 Dec, Tobacco use Z72.0 ; Prediabetes R73.09 ; Elevated liver enzymes R74.8 ; Elevated fasting glucose R73.01 ; Elevated ALT measurement R74.0 ; Pain in thoracic spine M54.6 ; Panic attacks F41.0 and Type 2 diabetes mellitus with hyperglycemia, without long-term current use of insulin E11.65 [facility] [id number] [place] [address] 72897 -7558 Jun, Abdominal pain, right upper quadrant R10.11 [facility] [id number] [place] [address] 90260- 3131 Jun, [facility] [id number] [place] [address] 79229- 4791 Jun, [facility] [id number] [place] [address] 10826- 3430 Jun, [facility] [address] 38834- 5304 May, Routine gynecological examination Z01.419 ; Encounter for Papanicolaou smear for cervical cancer screening Z12.4 ; Screening breast examination Z12.39 ; Vaginal discharge N89.8 and Candidal vaginitis B37.3 [facility] [id number] [place] [address] 70819- 8082 May, [facility] [id number] [place] [address] 30355- 8727 May, Prediabetes R73.09 ; Elevated ALT measurement R74.0 ; Elevated fasting glucose R73.01 and Palpitations R00.2 [facility] [id number] [place] [address] 31699- 1623 Feb, [facility] [id number] [place] [address] 97038- 3886 Feb, [facility] [id number] [place] [address] 95590- 8538 11 Apr, 2016 Generalized anxiety disorder F41.1 and Major depressive disorder, recurrent episode, moderate F33.1 [facility] [id number] [place] [address] 18325- 3799 Feb, Generalized anxiety disorder F41.1 ; Low back pain M54.5 and Insomnia G47.00 [facility] [id number] [place] [address] 52163- 2444 Jan, Elevated fasting glucose R73.01 and Elevated ALT measurement R74.0 [facility] [address] 37327- 2347 Jan, Generalized anxiety disorder F41.1 ; Low back pain M54.5 and Screening cholesterol level Z13.220 [facility] [address] 62608- 3194 04 Dec, 2015 Scoliosis M41.9 and Anxiety F41.9 [facility] [address] 37404- 6735 Feb, [facility] [id number] [place] [address] 34440- 2503 Feb, [facility] [address] 11643- 9886 Apr, [facility] [id number] [place] [address] 48972- 9860 March, [facility] [id number] [place] [address] 70060- 2285 March, [facility] [id number] [place] [address] 08959- 3698 March, [facility] [address] 09069- 0307 March, [facility] [id number] [place] [address] 11382- 3493 March, [facility] [id number] [place] [address] 67372- 8831 March, [facility] [place] [facility] [address] [id number] [place] [address]- 8889 March, [facility] [place] [facility] [address] [id number] [place] [address]- 7944 March, [facility] [place] [facility] [address] [id number] [place] [address]- 8503 Feb, [facility] [place] [facility] [address] [id number] [place] [address]- 2364 Feb, [facility] [place] [facility] [address] [id number] [place] [address]- 3916 Feb, [facility] [place] [facility] [address] [id number] [place] [address]- 2932 Feb, [facility] [place] [facility] [address] [id number] [place] [address]- 2034 Jan, [facility] [place] [facility] [address] [id number] [place] [address]- 2551 Jan, [facility] [place] [facility] [address] [id number] [place] [address]- 3467 Jan, [facility] [place] [facility] [address] [id number] [place] [address]- 8342 Jan, [facility] [place] [facility] [address] [id number] [place] [address]- 1863 Jan, [facility] [place] [facility] [address] [id number] [place] [address]- 4301 Jan, [facility] [place] [facility] [address] [id number] [place] [address]- 1245 Jan, [facility] [place] [facility] [address] [id number] [place] [address]- 5436 Dec, [facility] [place] [facility] [address] [id number] [place] 5494 Dec, [facility] [place] [facility] [address] [id number] [place] [address]- 6714 Dec, [facility] [address] [id number] [place] [address]- 3385 Dec, [facility] [place] [facility] [address] [id number] [place] [address]- 1446 Dec, [facility] [address] [id number] [place] [address]- 8234 Dec, [facility] [place] [facility] [address] [id number] [place] [address]- 1498 Nov, [facility] [address] [id number] [place] [address]- 0258 Nov, [facility] [place] [facility] [address] [id number] [place] [address]- 4848 Nov, [facility] [address] [id number] [place] [address]- 0532 Nov, [facility] [address] [id number] [place] [address]- 4201 Nov, [facility] [place] [facility] [address] [id number] [place] [address]- 2042 Nov, [facility] [address] [facility] [id number] [place] [address]- 5523 Nov, [facility] [address] [id number] [place] [address]- 4948 Oct, [facility] [place] [facility] [address] [id number] [place] [address]- 2929 Oct, [facility] [place] [facility] [address] [id number] [place] [address]- 6190 Oct, [facility] [place] [facility] [address] [id number] [place] [address]- 0464 Oct, [facility] [place] [facility] [address] [id number] [place] [address]- 2758 Sep, [facility] [place] [facility] [address] [id number] [place] [address]- 0218 Sep, [facility] [place] [facility] [address] [id number] [place] [address]- 7433 Sep, [facility] [place] [facility] [address] [id number] [place] [address]- 8274 Sep, [facility] [place] [facility] [address] [id number] [place] [address] 254 Sep, [facility] [place] [facility] [address] [id number] [place] [address]- 7097 Sep, [facility] [place] [facility] [address] [id number] [place] [address]- 5403 Aug, [facility] [place] [facility] [address] [id number] [place] [address]- 2787 Aug, [facility] [place] [facility] [address] [id number] [place] [address]- 5179 Aug, [facility] [place] [facility] [address] [id number] [place] [address]- 8708 Aug, [facility] [place] [facility] [address] [id number] [address]- 7253 Aug, [facility] [place] [facility] [address] [id number] [place] [address]- 2100 Aug, [facility] [place] [facility] [address] [id number] [place] [address]- 8871 Aug, [facility] [place] [facility] [address] [id number] [place] [address]- 4870 Jul, [facility] [place] [facility] [address] [id number] [address]- 8563 Jul, [facility] [place] [facility] [address] [id number] [place] [address] 2542 Jun, [facility] [place] [facility] [address] [id number] [place] [address]- 7986 18 May, 2013 [facility] [address] [id number] [place] [address]- 0380 May, [facility] [place] [facility] [address] [id number] [place] [address]- 3239 10 May, 2013 [facility] [address] [id number] [place] [address]- 6366 Apr, [facility] [place] [facility] [address] [id number] [place] [address]- 5947 Apr, [facility] [address] [id number] [place] [address]- 4704 Apr, [facility] [address] [id number] [place] [address]- 0543 March, [facility] [address] [id number] [place] [address]- 1005 March, [facility] [address] [id number] [place] [address]- 3522 March, [facility] [address] [id number] [place] [address]- 7104 Feb, [facility] [place] [facility] [address] [id number] [place] [address]- 6390 Feb, [facility] [address] [id number] [place] [address]- 6092 15 Feb, 2013 [facility] [place] [facility] [address] [id number] [place] [address]- 5604 28 Jan, 2013 [facility] [place] [facility] [address] [id number] [place] [address]- 3273 19 Jan, 2013 [facility] [place] [facility] [address] [id number] [place] [address]- 0014 18 Jan, 2013 [facility] [place] [facility] [address] [id number] [place] [address]- 1181 15 Jan, 2013 [facility] [place] [facility] [address] [id number] [place] [address]- 5787 14 Jan, 2013 [facility] [address] [id number] [place] [address]- 3639 12 Jan, 2013 [facility] [place] [facility] [address] [id number] [place] [address]- 7838 05 Jan, 2013 [facility] [address] [id number] [place] [address]- 5705 28 Dec, 2012 [facility] [place] [facility] [address] [id number] [place] [address]- 1411 18 Dec, 2012 [facility] [address] [id number] [place] [address]- 4188 15 Dec, 2012 [facility] [address] [id number] [place] [address]- 6298 14 Dec, 2012 [facility] [address] [id number] [place] [address]- 6726 05 Dec, 2012 [facility] [address] [id number] [place] [address]- 1758 Nov, [facility] [address] [id number] [place] [address]- 6690 Nov, [facility] [address] [id number] [place] [address]- 7194 Nov, [facility] [address] [id number] [place] [address]- 1353 Nov, [facility] [place] [facility] [address] [id number] [place] [address]- 7369 Oct, [facility] [place] [facility] [address] [id number] [place] [address]- 9499 Oct, [facility] [place] [facility] [address] [id number] [place] [address]- 2175 Oct, [facility] [place] [facility] [address] [id number] [place] [address]- 9506 18 Oct, 2012 [facility] [place] [facility] [address] [id number] [place] [address]- 2733 Oct, [facility] [place] [facility] [address] [id number] [place] [address]- 8478 Oct, [facility] [place] [facility] [address] [facility] [id number] [place] [address]- 5817 Oct, [facility] [place] [facility] [address] [id number] [place] [address]- 4255 Oct, [facility] [place] [facility] [address] [id number] [place] 6106 Oct, [facility] [place] [facility] [address] [id number] [place] 6793 Sep, [facility] [place] [facility] [address] [id number] [place] [address]- 0926 Sep, [facility] [place] [facility] [address] [id number] [place] [address]- 5398 Sep, [facility] [place] [facility] [address] [id number] [place] [address]- 5734 Sep, [facility] [place] [facility] [address] [id number] [place] [address]- 6716 Sep, [facility] [place] [facility] [address] [id number] [place] [address]- 4310 Aug, [facility] [place] [facility] [address] [id number] [place] [address]- 6041 Aug, [facility] [place] [facility] [address] [id number] [place] [address]- 7390 Aug, [facility] [place] [facility] [address] [facility] [id number] [id number] Aug, [facility] [place] [facility] [address] [facility] [id number] [place] [address] [address] Aug, [facility] [place] [facility] [address] [id number] [place] [address] 11 Aug, 2012 [facility] [place] [facility] [address] [id number] [place] [address] 11 Aug, 2012 [facility] [place] [facility] [address] [id number] [place] [address] 10 Aug, 2012 [facility] [address] [id number] [place] [address] 10 Aug, 2012 [facility] [place] [facility] [address] [id number] [place] [address] 09 Aug, 2012 [facility] [place] [facility] [address] [id number] [place] [address] 05 Aug, 2012 [facility] [place] [facility] [address] [id number] [place] [address]32 04 Aug, 2012 [facility] [place] [facility] [address] [id number] [place] [address] 17 Jul, 2012 [facility] [place] [facility] [address] [id number] [place] [address] 13 Jul, 2012 [facility] [place] [facility] [address] [id number] [place] [address] 13 Jul, 2012 [facility] [place] [facility] [address] [id number] [place] [address]40 11 Jul, 2012 [facility] [place] [facility] [address] [id number] [place] [address]- [address] 10 Jul, 2012 [facility] [place] [facility] [address] [id number] [place] [address]- [address] 08 Jul, 2012 [facility] [place] [facility] [address] [id number] [place] [address]- 6740 16 Jun, 2012 [facility] [place] [facility] [address] [id number] [place] [address] 14 Jun, 2012 [facility] [place] [facility] [address] [id number] [place] [address]- [address]999 17 May, 2012 [facility] [place] [facility] [address] [id number] [place] [address] 17 May, 2012 [facility] [place] [facility] [address] [id number] [place] [address] 1869 May, [facility] [place] [facility] [address] [id number] [place] [address] May, [facility] [place] [facility] [address] [id number] [place] [address] Apr, [facility] [place] [facility] [address] [id number] [place] [address] Apr, [facility] [place] [facility] [address] [id number] [place] [address]- [address] Apr, [facility] [place] [facility] [address] [id number] [place] [address] 267[address] Apr, [facility] [place] [facility] [address] [id number] [place] [address] 3536 Apr, [facility] [place] [facility] [address] [id number] [place] [address] March, [facility] [place] [facility] [address] [id number] [place] [address] March, [facility] [place] [facility] [address] [id number] [place] [address] March, [facility] [place] [facility] [address] [id number] [place] [address] March, [facility] [place] [facility] [address] [id number] [place] [address]- [address] March, [facility] [place] [facility] [address] [id number] [place] [address] 24 Feb, 2012 [facility] [place] [facility] [address] [id number] [place] [address] Feb, [facility] [place] [facility] [address] [id number] [place] [address] Jan, [facility] [address] [id number] [place] [address] Jan, [facility] [place] [facility] [address] [id number] [place] [address] Jan, [facility] [place] [facility] [address] [id number] [place] [address] Dec, [facility] [place] [facility] [address] [id number] [place] [address]99 Nov, [facility] [place] [facility] [address] [id number] [place] [address] Nov, [facility] [place] [facility] [address] [id number] [place] [address] Nov, [facility] [address] [facility] [id number] [place] [address] Nov, [facility] [place] [facility] [address] [id number] [place] [address]- 90[address] Oct, [facility] [place] [facility] [address] [id number] [place] [address] Oct, [facility] [place] [facility] [address] [facility] [id number] [place] [address] Sep, [facility] [place] [facility] [address] [id number] [place] [address]- [address] Sep, [facility] [facility] [address] [id number] [place] [address] Sep, [facility] [place] [facility] [address] [id number] [place] [address] Sep, [facility] [place] [facility] [address] [facility] [id number] [place] [id number] 08 Sep, 2011 [facility] [place] [facility] [address] [facility] [id number] [place] [address] 16 Jun, 2011 [facility] [facility] [address] [facility] [id number] [address] 15 Dec, 2010 [facility] [address] [facility] [id number] [address] Sep, [facility] [address] [facility] [id number] [address] Aug, [facility] [address] [facility] [id number] [place] [address] Aug, [facility] [address] [facility] [id number] [place] [address] Aug, [facility] [address] [facility] [id number] [place] [address] Aug, [facility] [id number] [address] Aug, [facility] [id number] [address] Jun, [facility] [id number] [address] Feb, [facility] [id number] [address] Sep, [facility] [address] [id number] [address] Aug, [facility] [id number] [address] Apr, [facility] [address] [id number] [address] March, IMMUNIZATIONS No Known Immunizations SOCIAL HISTORY [...]
--- OUTSIDE RECORDS SUMMARY | 2018-06-10 20:06 | XMS REPORT ---
Author Author ASHOK ROMY [facility] Address [address] [place] [address] Care Team Providers Care Qc Manager Name Role Phone ROMY PULIDO Unavailable PROBLEMS Type Condition ICD9-CM Code MCS46-QO Code Onset Dates Condition Status SNOMED Code Problem Panic attacks F41.0 Active 805692817 Problem Mixed hyperlipidemia E78.2 Active 022770138 Problem 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 Active 92747547 Problem Anxiety state, unspecified F41.1 Active 952656828 Problem Retinitis pigmentosa H35.52 Active 47735005 Problem Other chronic pain G89.29 Active 47381230 Problem Lumbago with sciatica, right side M54.41 Active 830817436 Problem Cervical disc disorder at C5-C6 level with radiculopathy M50.122 Active 457115507 Problem Tension headache G44.209 Active 700773380 Problem Fibromyalgia M79.7 Active 150655557 Problem Calculus of gallbladder without cholecystitis without obstruction K80.20 Active 282385594 Problem Chest pain, unspecified type R07.9 Active 12111449 Problem Major depressive disorder, recurrent episode, moderate F33.1 Active 391741273 Problem Insomnia G47.00 Active 624880024 Problem Generalized anxiety disorder F41.1 Active 66101250 Problem Tobacco use Z72.0 Active 843116256 Problem Low back pain M54.5 Active 990145084 Problem Type 2 diabetes mellitus with hyperglycemia, without long-term current use of insulin E11.65 Active 48693145 ALLERGIES No Information ENCOUNTERS Encounter Location Date Diagnosis [facility] [address] [place] [address] March, Anxiety state, unspecified F41.1 [facility] [id number], [place] [address] Feb, [facility] [address], [place] [address] Feb, Medicare annual wellness visit, initial Z00.00 ; Type 2 diabetes mellitus with hyperglycemia, without long-term current use of insulin E11.65 ; Major depressive disorder, recurrent episode, moderate F33.1 ; Mixed hyperlipidemia E78.2 ; Fibromyalgia M79.7 ; Retinitis pigmentosa H35.52 ; Panic attacks F41.0 ; Facial skin lesion L98.9 ; Fullness of neck R22.1 and Screening for colon cancer Z12.11 [facility] [id number] [place] [address] 38193- 5454 Feb, Type 2 diabetes mellitus with hyperglycemia, without long- term current use of insulin E11.65 [facility] [id number] [place] [address] 27711- 4599 Jan, [facility] [id number] [place] [address] 12775- 8466 Jan, Asymptomatic microscopic hematuria R31.21 ; Chest pain, unspecified type R07.9 and Generalized anxiety disorder F41.1 [facility] [id number] [place] [address] 25805- 3614 Jan, [facility] [id number] [place] [address] 69751- 1159 Jan, [facility] [address], [place] [address] Dec, [facility] [id number] [place] [address] 83332- 8835 Dec, [facility] [id number] [place] [address] 56021- 8671 Dec, [facility] [id number] [place] [address] 85235- 7790 Dec, [facility] [id number] [place] [address] 26585- 0792 Dec, [facility] [id number] [place] [address] 62517- 8947 13 Dec, 2017 Tension headache G44.209 [facility] [address] 49049- 8937 09 Dec, 2017 Elevated LFTs R79.89 ; Type 2 diabetes mellitus with hyperglycemia, without long-term current use of insulin E11.65 ; Abdominal bloating R14.0 and Other fatigue R53.83 [facility] [address] 94604- 8056 08 Dec, 2017 Elevated ALT measurement R74.0 [facility] [address] 37263- 4703 Nov, Type 2 diabetes mellitus with hyperglycemia, without long- term current use of insulin E11.65 and Mixed hyperlipidemia E78.2 [facility] [facility] [address] 15292- 7350 Oct, [facility] [address] 92755- 5846 Oct, Elevated ALT measurement R74.0 [facility] [address] 62978- 2541 Oct, [facility] [address] 42651- 4117 Oct, [facility] [address] 02435- 0613 Oct, Breast cancer screening Z12.31 [facility] [address] 57517- 6708 Sep, Tension headache G44.209 ; Cervical disc disorder at C5-C6 level with radiculopathy M50.122 ; Other fatigue R53.83 ; Breast pain, left N64.4 ; Vertigo R42 and Abnormal tympanic membrane of left ear H73.[address] [facility] [id number] [place] [address] 44689 -2359 Sep, Screening breast examination Z12.39 [facility] [id number] [place] [address] 40057- 0335 Sep, [facility] [id number] [place] [address] 06038- 4186 Sep, Mixed hyperlipidemia E78.2 and Type 2 diabetes mellitus with hyperglycemia, without long-term current use of insulin E11.65 [place] [address] 97795- 2926 Jul, [facility] [address] 74008- 4867 Jul, Lumbago with sciatica, right side M54.41 and Other chronic pain G89.29 [facility] [id number] [place] [address] 18458- 6904 May, Type 2 diabetes mellitus with hyperglycemia, without long- term current use of insulin E11.65 ; Low back pain M54.5 ; Tobacco use Z72.0 ; Mixed hyperlipidemia E78.2 ; Lateral epicondylitis of right elbow M77.11 and 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 [facility] [id number] [place] [address] 73936- 4080 Apr, [facility] [id number] [place] [address] 36593- 7831 Apr, Low back pain M54.5 [facility] [id number] [place] [address] 70192- 2295 Apr, Pain in thoracic spine M54.[address] [facility] [id number] [place] [address] 27842 -8323 March, Lumbosacral neuritis M54.17 [facility] [id number] [place] [address] 00424- 2421 March, Low back pain M54.5 [facility] [id number] [place] [address] 38816- 2637 March, [facility] [address], [place] [address] 8[address] March, [facility] [id number] [place] [address] 54598- 0477 March, [facility] [id number] [place] [address] 17741- 7247 Feb, [facility] [id number] [place] [address] 34283- 4745 Feb, [facility] [id number] [place] [address] 08369- 2057 Feb, [facility] [id number] [place] [address] 03280- 8414 Feb, Low back pain M54.5 and Pain in thoracic spine M54.6 [facility] [id number] [place] [address] 98218- 0188 Jan, Panic attacks F41.0 ; Type 2 diabetes mellitus with hyperglycemia, without long-term current use of insulin E11.65 and Other chest pain R07.89 [facility] [id number] [place] [address] 33397- 4242 Jan, [facility] [id number] [place] [address] 60771- 8575 Jan, Type 2 diabetes mellitus with hyperglycemia, without long- term current use of insulin E11.65 [facility] [address] [place] [address] 65548- 2409 Jan, Pain in thoracic spine M54.6 [facility] [address] [place] [address] 80467- 0935 Jan, Type 2 diabetes mellitus with hyperglycemia, without long- term current use of insulin E11.65 and Elevated liver enzymes R74.8 [facility] [id number] [place] [address] 87058- 3234 Jan, [facility] [id number] [place] [address] 28000- 5105 Dec, Tobacco use Z72.0 ; Prediabetes R73.09 ; Elevated liver enzymes R74.8 ; Elevated fasting glucose R73.01 ; Elevated ALT measurement R74.0 ; Pain in thoracic spine M54.6 ; Panic attacks F41.0 and Type 2 diabetes mellitus with hyperglycemia, without long-term current use of insulin E11.65 [facility] [id number] [place] [address] 69040 -2757 Jun, Abdominal pain, right upper quadrant R10.11 [facility] [id number] [place] [address] 91158- 8103 Jun, [facility] [id number] [place] [address] 86826- 8644 Jun, [facility] [id number] [place] [address] 07971- 6787 Jun, [facility] [address] 26249- 7886 May, Routine gynecological examination Z01.419 ; Encounter for Papanicolaou smear for cervical cancer screening Z12.4 ; Screening breast examination Z12.39 ; Vaginal discharge N89.8 and Candidal vaginitis B37.3 [facility] [id number] [place] [address] 74119- 7399 May, [place] [place] [id number] [place] [address] 55899- 7428 May, Prediabetes R73.09 ; Elevated ALT measurement R74.0 ; Elevated fasting glucose R73.01 and Palpitations R00.2 [place] [id number] [place] [address] 84191- 4808 Feb, [place] [id number] [place] [address] 95604- 5991 Feb, [place] [id number] [place] [address] 29096- 6593 11 Apr, 2016 Generalized anxiety disorder F41.1 and Major depressive disorder, recurrent episode, moderate F33.1 [facility] [id number] [place] [address] 77815- 5999 Feb, Generalized anxiety disorder F41.1 ; Low back pain M54.5 and Insomnia G47.00 [facility] [id number] [place] [address] 88080- 6200 Jan, Elevated fasting glucose R73.01 and Elevated ALT measurement R74.0 [facility] [address] 58718- 1080 Jan, Generalized anxiety disorder F41.1 ; Low back pain M54.5 and Screening cholesterol level Z13.220 [facility] [address] 56372- 6933 04 Dec, 2015 Scoliosis M41.9 and Anxiety F41.9 [facility] [address] 80786- 5683 Feb, [facility] [id number] [place] [address] 13188- 2786 Feb, [facility] [address] 75115- 3767 Apr, [facility] [id number] [place] [address] 66780- 2620 March, [facility] [id number] [place] [address] 63428- 8947 March, [facility] [id number] [place] [address] 60979- 4422 March, [facility] [address] 96427- 9087 March, [facility] [id number] [place] [address] 89969- 3078 March, [facility] [id number] [place] [address] 01881- 5724 March, [facility] [place] [facility] [address] [id number] [place] [address]- 8350 March, [facility] [place] [facility] [address] [id number] [place] [address]- 1968 March, [facility] [place] [facility] [address] [id number] [place] [address]- 6656 Feb, [facility] [place] [facility] [address] [id number] [place] [address]- 1752 Feb, [facility] [place] [facility] [address] [id number] [place] [address]- 1350 Feb, [facility] [place] [facility] [address] [id number] [place] [address]- 8430 Feb, [facility] [place] [facility] [address] [id number] [place] [address]- 7275 Jan, [facility] [place] [facility] [address] [id number] [place] [address]- 7026 Jan, [facility] [place] [facility] [address] [id number] [place] [address]- 6348 Jan, [facility] [place] [facility] [address] [id number] [place] [address]- 6668 Jan, [facility] [place] [facility] [address] [id number] [place] [address]- 1900 Jan, [facility] [place] [facility] [address] [id number] [place] [address]- 4316 Jan, [facility] [place] [facility] [address] [id number] [place] [address]- 7878 Jan, [facility] [place] [facility] [address] [id number] [place] [address]- 4912 Dec, [facility] [place] [facility] [address] [id number] [place] 5292 Dec, [facility] [place] [facility] [address] [id number] [place] [address]- 1996 Dec, [facility] [address] [id number] [place] [address]- 8886 Dec, [facility] [place] [facility] [address] [id number] [place] [address]- 2991 Dec, [facility] [address] [id number] [place] [address]- 1566 Dec, [facility] [place] [facility] [address] [id number] [place] [address]- 2465 Nov, [facility] [address] [id number] [place] [address]- 5809 Nov, [facility] [place] [facility] [address] [id number] [place] [address]- 6978 Nov, [facility] [address] [id number] [place] [address]- 4010 Nov, [facility] [address] [id number] [place] [address]- 5212 Nov, [facility] [place] [facility] [address] [id number] [place] [address]- 7440 Nov, [facility] [address] [facility] [id number] [place] [address]- 8645 Nov, [facility] [address] [id number] [place] [address]- 9373 Oct, [facility] [place] [facility] [address] [id number] [place] [address]- 7017 Oct, [facility] [place] [facility] [address] [id number] [place] [address]- 9223 Oct, [facility] [place] [facility] [address] [id number] [place] [address]- 4917 Oct, [facility] [place] [facility] [address] [id number] [place] [address]- 7529 Sep, [facility] [place] [facility] [address] [id number] [place] [address]- 3676 Sep, [facility] [place] [facility] [address] [id number] [place] [address]- 4053 Sep, [facility] [place] [facility] [address] [id number] [place] [address]- 6642 Sep, [facility] [place] [facility] [address] [id number] [place] [address] 2545 Sep, [facility] [place] [facility] [address] [id number] [place] [address]- 6604 Sep, [facility] [place] [facility] [address] [id number] [place] [address]- 2886 Aug, [facility] [place] [facility] [address] [id number] [place] [address]- 6301 Aug, [facility] [place] [facility] [address] [id number] [place] [address]- 1527 Aug, [facility] [place] [facility] [address] [id number] [place] [address]- 2309 Aug, [facility] [place] [facility] [address] [id number], [place] [address]- 8533 Aug, [facility] [place] [facility] [address] [id number], [place] [address]- 3590 Aug, [facility] [place] [facility] [address] [id number], [place] [address]- 1076 Aug, [facility] [place] [facility] [address] [id number], [place] [address]- 3870 Jul, [facility] [place] [facility] [address] [id number], [place] [address]- 0418 Jul, [facility] [place] [facility] [address] [id number], [place] [address] 2547 Jun, [facility] [place] [facility] [address] [id number], [place] [address]- 6828 18 May, 2013 [facility] [address] [id number] [place] [address]- 7353 May, [facility] [place] [facility] [address] [id number] [place] [address]- 8917 10 May, 2013 [facility] [address] [id number] [place] [address]- 1580 Apr, [facility] [place] [facility] [address] [id number] [place] [address]- 6292 Apr, [facility] [address] [id number] [place] [address]- 8218 Apr, [facility] [address] [id number] [place] [address]- 8424 March, [facility] [address] [id number] [place] [address]- 8723 March, [facility] [address] [id number] [place] [address]- 6411 March, [facility] [address] [id number] [place] [address]- 1692 Feb, [facility] [place] [facility] [address] [id number] [place] [address]- 5706 Feb, [facility] [address] [id number] [place] [address]- 3864 15 Feb, 2013 [facility] [place] [facility] [address] [id number] [place] [address]- 5670 28 Jan, 2013 [facility] [place] [facility] [address] [id number] [place] [address]- 1892 19 Jan, 2013 [facility] [place] [facility] [address] [id number] [place] [address]- 7246 18 Jan, 2013 [facility] [place] [facility] [address] [id number] [place] [address]- 2777 15 Jan, 2013 [facility] [place] [facility] [address] [id number] [place] [address]- 7826 14 Jan, 2013 [facility] [address] [id number] [place] [address]- 6829 12 Jan, 2013 [facility] [place] [facility] [address] [id number] [place] [address]- 0509 05 Jan, 2013 [facility] [address] [id number] [place] [address]- 4749 28 Dec, 2012 [facility] [place] [facility] [address] [id number] [place] [address]- 9665 18 Dec, 2012 [facility] [address] [id number] [place] [address]- 1082 15 Dec, 2012 [facility] [address] [id number] [place] [address]- 3967 14 Dec, 2012 [facility] [address] [id number] [place] [address]- 0563 05 Dec, 2012 [facility] [address] [id number] [place] [address]- 6717 Nov, [facility] [address] [id number] [place] [address]- 9427 Nov, [facility] [address] [id number] [place] [address]- 2569 Nov, [facility] [address] [id number] [place] [address]- 6582 Nov, [facility] [place] [facility] [address] [id number] [place] [address]- 0570 Oct, [facility] [place] [facility] [address] [id number] [place] [address]- 7704 Oct, [facility] [place] [facility] [address] [id number] [place] [address]- 9120 Oct, [facility] [place] [facility] [address] [id number], [place] [address]- 1946 18 Oct, 2012 [facility] [place] [facility] [address] [id number] [place] [address]- 2058 Oct, [facility] [place] [facility] [address] [id number] [place] [address]- 8293 Oct, [facility] [place] [facility] [address] [facility] [id number] [place] [address]- 5022 Oct, [facility] [place] [facility] [address] [id number] [place] [address]- 0211 Oct, [facility] [place] [facility] [address] [id number] [place] 3339 Oct, [facility] [place] [facility] [address] [id number] [place] 5124 Sep, [facility] [place] [facility] [address] [id number] [place] [address]- 3461 Sep, [facility] [place] [facility] [address] [id number], [place] [address]- 2742 Sep, [facility] [place] [facility] [address] [id number] [place] [address]- 5528 Sep, [facility] [place] [facility] [address] [id number] [place] [address]- 2690 Sep, [facility] [place] [facility] [address] [id number], [place] [address]- 5082 Aug, [facility] [place] [facility] [address] [id number], [place] [address]- 3160 Aug, [facility] [place] [facility] [address] [id number] [place] [address]- 6097 Aug, [facility] [place] [facility] [address] [facility] [id number][place] 4063 Aug, [facility] [place] [facility] [address] [facility] [id number] [address] Aug, [facility] [place] [facility] [address] [id number] [place] [address] 11 Aug, 2012 [facility] [place] [facility] [address] [id number] [place] [address] 11 Aug, 2012 [facility] [place] [facility] [address] [id number] [place] [address] 10 Aug, 2012 [facility] [address] [id number] [place] [address] 10 Aug, 2012 [facility] [place] [facility] [address] [id number] [place] [address] 09 Aug, 2012 [facility] [place] [facility] [address] [id number] [place] [address] 05 Aug, 2012 [facility] [place] [facility] [address] [id number] [place] [address] 04 Aug, 2012 [facility] [place] [facility] [address] [id number] [place] [address] 17 Jul, 2012 [facility] [place] [facility] [address] [id number] [place] [address] 13 Jul, 2012 [facility] [place] [facility] [address] [id number] [place] [address] 13 Jul, 2012 [facility] [place] [facility] [address] [id number] [place] [address] 11 Jul, 2012 [facility] [place] [facility] [address] [id number] [place] [address] 10 Jul, 2012 [facility] [place] [facility] [address] [id number] [place] [address] 08 Jul, 2012 [facility] [place] [facility] [address] [id number] [place] [address] 16 Jun, 2012 [facility] [place] [facility] [address] [id number] [place] [address] 14 Jun, 2012 [facility] [place] [facility] [address] [id number] [place] [address]99 17 May, 2012 [facility] [place] [facility] [address] [id number] [place] [address] 17 May, 2012 [facility] [place] [facility] [address] [id number] [place] [address] May, [facility] [place] [facility] [address] [id number] [place] [address] May, [facility] [place] [facility] [address] [id number] [place] [address] Apr, [facility] [place] [facility] [address] [id number] [place] [address] Apr, [facility] [place] [facility] [address] [id number] [place] [address] Apr, [facility] [place] [facility] [address] [id number] [place] [address] Apr, [facility] [place] [facility] [address] [id number] [place] [address] Apr, [facility] [place] [facility] [address] [id number] [place] [address] March, [facility] [place] [facility] [address] [id number] [place] [address] March, [facility] [place] [facility] [address] [id number] [place] [address] March, [facility] [place] [facility] [address] [id number] [place] [address] March, [facility] [place] [facility] [address] [id number] [place] [address] March, [facility] [place] [facility] [address] [id number] [place] [address] 24 Feb, 2012 [facility] [place] [facility] [address] [id number] [place] [address] Feb, [facility] [place] [facility] [address] [id number] [place] [address] Jan, [facility] [address] [id number] [place] [address] Jan, [facility] [place] [facility] [address] [id number] [place] [address] Jan, [facility] [place] [facility] [address] [id number] [place] [address] Dec, [facility] [place] [facility] [address] [id number] [place] [address] Nov, [facility] [place] [facility] [address] [id number] [place] [address] Nov, [facility] [place] [facility] [address] [id number] [place] [address]16 Nov, [facility] [address] [facility] [place] [id number] [place] [address]- [address] Nov, [facility] [place] [facility] [address] [id number] [place] [address] Oct, [facility] [place] [facility] [address] [id number] [place] [address] Oct, [facility] [place] [facility] [address] [facility] [place] [id number] [place] [address] Sep, [facility] [place] [facility] [address] [id number] [place] [address] Sep, [facility] [place] [facility] [address] [id number] [place] [address] Sep, [facility] [place] [facility] [address] [id number] [place] [address] Sep, [facility] [place] [facility] [address] [facility] [place] [id number] [place] [address] 08 Sep, 2011 [facility] [place] [facility] [address] [facility] [place] [id number] [place] [address] 16 Jun, 2011 [facility] [place] [facility] [address] [facility] [place] [id number], [place] [address] 15 Dec, 2010 [facility] [address] [facility] [place] [id number], [place] [address] Sep, [facility] [address] [facility] [place] [id number], [place] [address] Aug, [facility] [address] [facility] [place] [id number], [place] [address] Aug, [facility] [address] [facility] [place] [id number], [place] [address] Aug, [facility] [address] [facility] [place] [id number] [address] Aug, [facility] [address] [facility] [place] [id number][place] [address] Aug, [facility] [id number], [place] [address] Jun, [facility] [address] [id number], [place] [address] Feb, [facility] [id number] [address] Sep, [facility] [address] [id number], [place] [address] Aug, [facility] [id number], [place] [address] Apr, [facility] [address] [id number], [place] [address] March, IMMUNIZATIONS No Known Immunizations SOCIAL HISTORY Never Assessed REASON FOR VISIT Mammo Results chart update PLAN OF CARE VITAL SIGNS MEDICATIONS Unknown Medications RESULTS No Results PROCEDURES No Known procedures INSTRUCTIONS MEDICATIONS ADMINISTERED No Known Medications MEDICAL (GENERAL) HISTORY Type Description Date Medical History Scoliosis Medical History Bipolar Surgical History right hip replacement Surgical History c-sections x4 Hospitalization History Pneumonia 2011
--- OUTSIDE RECORDS SUMMARY | 2018-06-10 20:06 | XMS REPORT ---
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 Active 08267298 Problem Panic attacks F41.0 Active 075252030 Problem Retinitis pigmentosa H35.52 Active 20053039 Problem Cervical disc disorder at C5-C6 level with radiculopathy M50.122 Active 950549546 Problem Lumbago with sciatica, right side M54.41 Active 369805971 Problem Mixed hyperlipidemia E78.2 Active 997418363 Problem Tension headache G44.209 Active 800321189 Problem Other chronic pain G89.29 Active 09371892 Problem Chest pain, unspecified type R07.9 Active 87018445 Problem Fibromyalgia M79.7 Active 722365589 Problem Low back pain M54.5 Active 156978689 Problem Major depressive disorder, recurrent episode, moderate F33.1 Active 049796442 Problem Calculus of gallbladder without cholecystitis without obstruction K80.20 Active 759858171 Problem Insomnia G47.00 Active 968212848 Problem Generalized anxiety disorder F41.1 Active 02642214 Problem Tobacco use Z72.0 Active 142040133 ALLERGIES No Information ENCOUNTERS Encounter Location Date Diagnosis [facility] [address] [facility] [id number], [place] [address] March, [facility] [address] [id number], [place] [address] Feb, [facility] [address] [facility] [id number], [place] [address] Feb, Medicare annual wellness visit, initial Z00.00 ; Type 2 diabetes mellitus with hyperglycemia, without long-term current use of insulin E11.65 ; Major depressive disorder, recurrent episode, moderate F33.1 ; Mixed hyperlipidemia E78.2 ; Fibromyalgia M79.7 ; Retinitis pigmentosa H35.52 ; Panic attacks F41.0 ; Facial skin lesion L98.9 ; Fullness of neck R22.1 and Screening for colon cancer Z12.11 [facility] [id number] [place] [address] 76634- 5994 03 Feb, 2018 Type 2 diabetes mellitus with hyperglycemia, without long- term current use of insulin E11.65 [facility] [id number] [place] [address] 85484- 4165 Jan, [facility] [place] [id number] [place] [address] 51804- 6200 Jan, Asymptomatic microscopic hematuria R31.21 ; Chest pain, unspecified type R07.9 and Generalized anxiety disorder F41.1 [facility] [id number] [place] [address] 96924- 0391 Jan, [facility] [id number] [place] [address] 49066- 5818 Jan, [facility] [id number] [place] [address] 29452 -5012 Dec, [place] [id number] [place] [address] 43063- 7832 Dec, [facility] [id number] [place] [address] 37436- 8388 Dec, [facility] [id number] [place] [address] 52935- 1269 Dec, [facility] [id number] [place] [address] 57042- 4593 14 Dec, 2017 [facility] [id number] [place] [address] 53604- 0697 13 Dec, 2017 Tension headache G44.209 [place] [id number] [place] [address] 74755- 7785 Dec, Elevated LFTs R79.89 ; Type 2 diabetes mellitus with hyperglycemia, without long-term current use of insulin E11.65 ; Abdominal bloating R14.0 and Other fatigue R53.83 [place] [id number] [place] [address] 23401- 2490 Dec, Elevated ALT measurement R74.0 [facility] [id number] [place] [address] 26642- 4546 Nov, Type 2 diabetes mellitus with hyperglycemia, without long- term current use of insulin E11.65 and Mixed hyperlipidemia E78.2 [place] [id number] [place] [address] 88271- 8679 Oct, [place] [address] 12695- 6060 Oct, Elevated ALT measurement R74.0 [facility] [id number] [place] [address] 84731- 4297 Oct, [place] [address] 05140- 3367 Oct, [facility] [place] [id number] [place] [address] 76818- 9916 Oct, Breast cancer screening Z12.31 [place] [id number] [place] [address] 18637- 1982 Sep, Tension headache G44.209 ; Cervical disc disorder at C5-C6 level with radiculopathy M50.122 ; Other fatigue R53.83 ; Breast pain, left N64.4 ; Vertigo R42 and Abnormal tympanic membrane of left ear H73.92 [facility] [id number] [place] [address] 86393 -2719 Sep, Screening breast examination Z12.39 [place] [address] 00957- 3387 Sep, [facility] [id number] [place] [address] 94955- 5215 Sep, Mixed hyperlipidemia E78.2 and Type 2 diabetes mellitus with hyperglycemia, without long-term current use of insulin E11.65 [facility] [id number] [place] [address] 73146- 3132 Jul, [place] [id number] [place] [address] 92940- 4807 Jul, Lumbago with sciatica, right side M54.41 and Other chronic pain G89.29 [place] [id number] [place] [address] 56929- 7646 May, Type 2 diabetes mellitus with hyperglycemia, without long- term current use of insulin E11.65 ; Low back pain M54.5 ; Tobacco use Z72.0 ; Mixed hyperlipidemia E78.2 ; Lateral epicondylitis of right elbow M77.11 and 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 [place] [id number] [place] [address] 35734- 2517 Apr, [place] [id number] [place] [address] 42058- 4070 Apr, Low back pain M54.5 [facility] [id number] [place] [address] 46092- 2649 Apr, Pain in thoracic spine M54.6 [facility] [id number] [place] [address] 93744 -6226 March, Lumbosacral neuritis M54.17 [facility] [id number] [place] [address] 27801- 5425 March, Low back pain M54.5 [facility] [id number] [place] [address] 46395- 2103 March, [facility] [id number] [place] [address] 34064- 6015 March, [place] [address], [place] [address] 0006 March, [facility] [id number] [place] [address] 62544- 8794 Feb, [facility] [id number] [place] [address] 34056- 0214 Feb, [place] [id number] [place] [address] 12242- 3734 Feb, [place] [id number] [place] [address] 34217- 5796 Feb, Low back pain M54.5 and Pain in thoracic spine M54.6 [place] [id number] [place] [address] 24196- 8238 Jan, Panic attacks F41.0 ; Type 2 diabetes mellitus with hyperglycemia, without long-term current use of insulin E11.65 and Other chest pain R07.89 [place] [id number] [place] [address] 09013- 9945 Jan, [place] [id number] [place] [address] 60635- 5314 Jan, Type 2 diabetes mellitus with hyperglycemia, without long- term current use of insulin E11.65 [place] [address] [place] [address] 80220- 3792 Jan, Pain in thoracic spine M54.6 [place] [id number] [place] [address] 43905- 2119 Jan, Type 2 diabetes mellitus with hyperglycemia, without long- term current use of insulin E11.65 and Elevated liver enzymes R74.8 [place] [address] [place] [address] 42885- 3296 Jan, [place] [address] [place] [address] 81896- 9860 Dec, Tobacco use Z72.0 ; Prediabetes R73.09 ; Elevated liver enzymes R74.8 ; Elevated fasting glucose R73.01 ; Elevated ALT measurement R74.0 ; Pain in thoracic spine M54.6 ; Panic attacks F41.0 and Type 2 diabetes mellitus with hyperglycemia, without long-term current use of insulin E11.65 [facility] [address], [place] [address] Jun, Abdominal pain, right upper quadrant R10.11 [facility] [id number] [place] [address] 04639- 6771 Jun, [place] [id number] [place] [address] 46455- 6878 Jun, [place] [id number] [place] [address] 15625- 1748 Jun, [place] [id number] [place] [address] 71700- 8857 May, Routine gynecological examination Z01.419 ; Encounter for Papanicolaou smear for cervical cancer screening Z12.4 ; Screening breast examination Z12.39 ; Vaginal discharge N89.8 and Candidal vaginitis B37.3 [place] [id number] [place] [address] 07644- 5794 May, [place] [address] [place] [address] 49117- 0855 May, Prediabetes R73.09 ; Elevated ALT measurement R74.0 ; Elevated fasting glucose R73.01 and Palpitations R00.2 [place] [address] [place] [address] 29586- 5751 Feb, [place] [id number] [place] [address] 65273- 6723 Feb, [place] [id number] [place] [address] 00986- 0719 Feb, Generalized anxiety disorder F41.1 and Major depressive disorder, recurrent episode, moderate F33.1 [place] [id number] [place] [address] 78827- 0439 Feb, Generalized anxiety disorder F41.1 ; Low back pain M54.5 and Insomnia G47.00 [facility] [id number] [place] [address] 04118- 3169 Jan, Elevated fasting glucose R73.01 and Elevated ALT measurement R74.0 [facility] [address] 36975- 7998 Jan, Generalized anxiety disorder F41.1 ; Low back pain M54.5 and Screening cholesterol level Z13.220 [facility] [address] 86974- 9302 Dec, Scoliosis M41.9 and Anxiety F41.9 [facility] [id number] [place] [address] 45529- 9057 Feb, [facility] [id number] [place] [address] 09391- 4936 Feb, [facility] [id number] [place] [address] 09082- 7958 Apr, [facility] [id number] [place] [address] 69613- 1467 March, [facility] [id number] [place] [address] 99697- 5951 March, [facility] [id number] [place] [address] 22556- 8154 March, [facility] [id number] [place] [address] 43734- 3043 March, [facility] [id number] [place] [address] 60353- 4704 March, [facility] [id number] [place] [address] 20374- 0164 March, [facility] [id number] [place] [address] 53392- 0910 March, [facility] [place] [facility] [address] [id number] [place] [address]- 4515 March, [facility] [place] [facility] [address] [id number] [place] [address]- 3402 Feb, [facility] [place] [facility] [address] [id number] [place] [address]- 1367 Feb, [facility] [place] [facility] [address] [id number] [place] [address]- 4690 Feb, [facility] [place] [facility] [address] [id number] [place] [address]- 9040 Feb, [facility] [place] [facility] [address] [id number] [place] [address]- 6851 Jan, [facility] [place] [facility] [address] [id number] [place] [address]- 0500 Jan, [facility] [place] [facility] [address] [id number] [place] [address]- 4591 Jan, [facility] [place] [facility] [address] [id number] [place] [address]- 6748 Jan, [facility] [place] [facility] [address] [id number] [place] [address]- 2810 Jan, [facility] [place] [facility] [address] [id number] [place] [address]- 9213 Jan, [facility] [place] [facility] [address] [id number] [place] [address]- 0715 Jan, [facility] [place] [facility] [address] [id number] [place] [address]- 1221 Dec, [facility] [place] [facility] [address] [id number] [place] [address]- 7198 Dec, [facility] [place] [facility] [address] [id number] [place] [address]- 2749 Dec, [facility] [place] [facility] [address] [id number] [place] [address]- 5618 Dec, [facility] [place] [facility] [address] [id number] [place] [address]- 2952 Dec, [facility] [place] [facility] [address] [id number] [place] [address]- 0025 Dec, [facility] [place] [facility] [address] [id number] [place] [address]- 9803 Nov, [facility] [place] [facility] [address] [id number] [place] [address]- 2019 Nov, [facility] [place] [facility] [address] [id number] [place] [address]- 8337 Nov, [facility] [place] [facility] [address] [id number] [place] [address]- 3873 Nov, [facility] [place] [facility] [address] [id number] [place] [address]- 1178 Nov, [facility] [place] [facility] [address] [id number] [place] [address]- 6889 Nov, [facility] [place] [facility] [address] [id number] [place] [address]- 1925 Nov, [facility] [place] [facility] [address] [id number] [place] [address]- 7205 Oct, [facility] [place] [facility] [address] [id number] [place] [address]- 3191 Oct, [facility] [place] [facility] [address] [id number] [place] [address]- 6647 Oct, [facility] [place] [facility] [address] [id number] [place] [address]- 9047 Oct, [facility] [place] [facility] [address] [id number] [place] [address]- 1672 Sep, [facility] [place] [facility] [address] [id number], [place] [address]- 7946 Sep, [facility] [place] [facility] [address] [id number] [place] [address]- 5813 Sep, [facility] [place] [facility] [address] [id number] [place] [address]- 8040 Sep, [facility] [place] [facility] [address] [id number] [place] [address] 2543 Sep, [facility] [place] [facility] [address] [id number] [place] [address]- 3940 Sep, [facility] [place] [facility] [address] [id number] [place] [address]- 6114 Aug, [facility] [place] [facility] [address] [id number] [place] [address]- 5079 Aug, [facility] [place] [facility] [address] [id number] [place] [address]- 2951 Aug, [facility] [place] [facility] [address] [id number], [place] [address]- 8041 Aug, [facility] [place] [facility] [address] [id number], [place] [address]- 0272 Aug, [facility] [place] [facility] [address] [id number] 5216 Aug, [facility] [place] [facility] [address] [id number], [place] [address]- 5463 Aug, [facility] [place] [facility] [address] [id number], [place] [address]- 2809 Jul, [facility] [place] [facility] [address] [id number] [place] [address]- 0469 Jul, [facility] [place] [facility] [address] [id number], [place] [address]- 9618 Jun, [facility] [place] [facility] [address] [id number], [place] [address]- 2548 May, [facility] [place] [facility] [address] [id number] [place] [address]- 4131 11 May, 2013 [facility] [address] [id number] [place] [address]- 0724 10 May, 2013 [facility] [address] [id number] [place] [address]- 4073 Apr, [facility] [address] [id number] [place] [address]- 3767 Apr, [facility] [address] [id number] [place] [address]- 8449 Apr, [facility] [address] [id number] [place] [address]- 5467 March, [facility] [address] [id number] [place] [address]- 3320 March, [facility] [address] [id number] [place] [address]- 3982 March, [facility] [address] [id number] [place] [address]- 6478 Feb, [facility] [address] [id number] [place] [address]- 8183 22 Feb, 2013 [facility] [address] [id number] [place] [address]- 3347 15 Feb, 2013 [facility] [address] [id number] [place] [address]- 0302 28 Jan, 2013 [facility] [address] [id number] [place] [address]- 5928 19 Jan, 2013 [facility] [address] [id number] [place] [address]- 7248 18 Jan, 2013 [facility] [address] [id number] [place] [address]- 5519 15 Jan, 2013 [facility] [address] [id number] [place] [address]- 7729 14 Jan, 2013 [facility] [address] [id number] [place] [address]- 3052 12 Jan, 2013 [facility] [place] [facility] [address] [id number] [place] [address]- 5256 05 Jan, 2013 [facility] [place] [facility] [address] [id number] [place] [address]- 0936 28 Dec, 2012 [facility] [place] [facility] [address] [id number] [place] [address]- 6676 18 Dec, 2012 [facility] [address] [id number] [place] [address]- 1456 15 Dec, 2012 [facility] [place] [facility] [address] [id number] [place] [address]- 9016 14 Dec, 2012 [facility] [place] [facility] [address] [id number] [place] [address]- 2856 05 Dec, 2012 [facility] [place] [facility] [address] [id number] [place] [address]- 9646 29 Nov, 2012 [facility] [place] [facility] [address] [id number] [place] [address]- 7756 Nov, [facility] [place] [facility] [address] [facility] [id number] [place] [address]- 6136 Nov, [facility] [place] [facility] [address] [id number] [place] [address]- 3496 Nov, [facility] [place] [facility] [address] [id number] [place] [address]- 2126 Oct, [facility] [place] [facility] [address] [id number] [place] [address]- 1746 Oct, [facility] [place] [facility] [address] [id number] [place] [address]- 0616 Oct, [facility] [place] [facility] [address] [id number] [place] [address]- 6566 Oct, [facility] [place] [facility] [address] [id number] [place] [address]- 8759 12 Oct, 2012 [facility] [place] [facility] [address] [id number] [place] 4686 12 Oct, 2012 [facility] [place] [facility] [address] [id number] [place] 3626 Oct, [facility] [place] [facility] [address] [id number] [place] [address]- 6236 Oct, [facility] [place] [facility] [address] [id number] [place] 3277 Oct, [facility] [place] [facility] [address] [id number] [place] 0223 Sep, [facility] [place] [facility] [address] [id number] [place] [address]- 3629 Sep, [facility] [place] [facility] [address] [facility] [id number] [place] [address]- 4101 Sep, [facility] [place] [facility] [address] [id number] [place] [address]- 4553 Sep, [facility] [place] [facility] [address] [facility] [id number] [place] [address]- 6304 Sep, [facility] [place] [facility] [address] [facility] [id number] [place] [address]- 3273 Aug, [facility] [place] [facility] [address] [id number] [place] [address]- 4276 Aug, [facility] [place] [facility] [address] [id number], [place] [address]- 6662 Aug, [facility] [place] [facility] [address] [id number] [place] [address]- 3280 Aug, [facility] [place] [facility] [address] [facility] [id number] [place] [address] Aug, [facility] [place] [facility] [address] [id number], [place] [address] Aug, [facility] [place] [facility] [address] [id number] [place] [address] Aug, [facility] [place] [facility] [address] [id number] [place] [address] Aug, [facility] [place] [facility] [address] [id number] [place] [address] 10 Aug, 2012 [facility] [place] [facility] [address] [id number] [place] [address] Aug, [facility] [place] [facility] [address] [id number] [place] [address] 05 Aug, 2012 [facility] [place] [facility] [address] [id number] [place] [address] 04 Aug, 2012 [facility] [place] [facility] [address] [id number] [place] [address] 17 Jul, 2012 [facility] [place] [facility] [address] [id number] [place] [address] 13 Jul, 2012 [facility] [place] [facility] [address] [id number] [place] [address] 13 Jul, 2012 [facility] [place] [facility] [address] [id number] [place] [address] 11 Jul, 2012 [facility] [place] [facility] [address] [id number] [place] [address] 10 Jul, 2012 [facility] [place] [facility] [address] [id number] [place] [address] 08 Jul, 2012 [facility] [place] [facility] [address] [id number] [place] [address] 1660 16 Jun, 2012 [facility] [place] [facility] [address] [id number] [place] [address] 14 Jun, 2012 [facility] [place] [facility] [address] [id number] [place] [address] 17 May, 2012 [facility] [place] [facility] [address] [id number] [place] [address]46 17 May, 2012 [facility] [place] [facility] [address] [id number] [place] [address] May, [facility] [place] [facility] [address] [id number] [place] [address] May, [facility] [place] [facility] [address] [id number] [place] [address] Apr, [facility] [place] [facility] [address] [id number] [place] [address] Apr, [facility] [place] [facility] [address] [id number] [place] [address] Apr, [facility] [place] [facility] [address] [id number] [place] [address] Apr, [facility] [place] [facility] [address] [id number] [place] [address] Apr, [facility] [place] [facility] [address] [id number] [place] [address] March, [facility] [place] [facility] [address] [id number] [place] [address] March, [facility] [place] [facility] [address] [id number] [place] [address] March, [facility] [place] [facility] [address] [id number] [place] [address] March, [facility] [place] [facility] [address] [id number] [place] [address] March, [facility] [place] [facility] [address] [id number] [place] [address] Feb, [facility] [place] [facility] [address] [id number] [place] [address] Feb, [facility] [place] [facility] [address] [id number] [place] [address] Jan, [facility] [place] [facility] [address] [id number] [place] [address] Jan, [facility] [address] [id number] [place] [address] Jan, [facility] [place] [facility] [address] [id number] [place] [address] 28 Dec, 2011 [facility] [address] [id number] [place] [address] Nov, [facility] [place] [facility] [address] [id number] [place] [address] Nov, [facility] [address] [id number] [place] [address] Nov, [facility] [address] [address] [id number] [place] [address] Nov, [facility] [address] [id number] [place] [address] Oct, [facility] [address] [id number] [place] [address] Oct, [facility] [address] [id number] [place] [address] Sep, [facility] [address] [id number] [place] [address] 18 Sep, 2011 [facility] [address] [id number] [place] [address] Sep, [facility] [place] [facility] [address] [id number] [place] [address] 10 Sep, 2011 [facility] [place] [facility] [address] [id number] [place] [address] 08 Sep, 2011 [facility] [place] [facility] [address] [id number] [place] [address] 16 Jun, 2011 [facility] [place] [facility] [address] [id number] [place] [address] Dec, [facility] [address] [address] Sep, [facility] [address] [facility] [id number], [place] [address] Aug, [facility] [address] [facility] [id number], [place] [address] Aug, [facility] [address] [facility] [id number], [place] [address] Aug, [facility] [address] [facility] [id number], [place] [address] Aug, [facility] [id number], [place] [address] Aug, [facility] [id number], [place] [address] Jun, [facility] [address], [place] [address] Feb, [facility] [address], [place] [address] Sep, [facility] [id number], [place] [address] Aug, [facility] [address], [place] [address] Apr, [facility] [id number], [place] [address] March, IMMUNIZATIONS No Known Immunizations SOCIAL HISTORY Never Assessed REASON FOR VISIT CO nikunj Helm PLAN OF CARE VITAL SIGNS MEDICATIONS Unknown Medications RESULTS No Results PROCEDURES No Known procedures INSTRUCTIONS MEDICATIONS ADMINISTERED No Known Medications MEDICAL (GENERAL) HISTORY Type Description Date Medical History Scoliosis Medical History Bipolar Surgical History right hip replacement Surgical History c-sections x4 Hospitalization History Pneumonia 2011
--- OUTSIDE RECORDS SUMMARY | 2018-06-10 20:08 | XMS REPORT ---
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 Active 01728015 Problem Type 2 diabetes mellitus with hyperglycemia, without long-term current use of insulin E11.65 Active 46244154 Problem Retinitis pigmentosa H35.52 Active 91900080 Problem Tension headache G44.209 Active 019547398 Problem Lumbago with sciatica, right side M54.41 Active 519890620 Problem Mixed hyperlipidemia E78.2 Active 347932011 Problem Cervical disc disorder at C5-C6 level with radiculopathy M50.122 Active 161848378 Problem Other chronic pain G89.29 Active 38529080 Problem Fibromyalgia M79.7 Active 699809881 Problem Low back pain M54.5 Active 684077580 Problem Major depressive disorder, recurrent episode, moderate F33.1 Active 979985910 Problem Calculus of gallbladder without cholecystitis without obstruction K80.20 Active 567625279 Problem Insomnia G47.00 Active 949808328 Problem Generalized anxiety disorder F41.1 Active 41816880 Problem Tobacco use Z72.0 Active [id number] ALLERGIES No Information ENCOUNTERS Encounter Location Date Diagnosis [facility] [id number] [address] March, [facility] [address] [address] Feb, [facility] [id number] [address] Feb, Medicare annual wellness visit, initial Z00.00 [facility] [id number] [place] [address] 07659- 1924 Feb, Type 2 diabetes mellitus with hyperglycemia, without long- term current use of insulin E11.65 [facility] [address] [address]- [address] Jan, [facility] [address] [address]- 69[address] Jan, Asymptomatic microscopic hematuria R31.21 ; Chest pain, unspecified type R07.9 and Generalized anxiety disorder F41.1 [facility] [address] [address]- 3242 Jan, [facility] [address] [address]- 5387 Jan, [facility] [address] [address] Dec, [facility] [address] 95207- 6594 Dec, [facility] [id number] [place] [address] 81887- 0878 Dec, [facility] [address] [address]259- 8780 Dec, [place] [id number] [place] [address] 76295- 6299 14 Dec, 2017 [facility] [address] [address]29- 7894 13 Dec, 2017 Tension headache G44.209 [facility] [id number] [place] [address] 52863- 4306 09 Dec, 2017 Elevated LFTs R79.89 ; Type 2 diabetes mellitus with hyperglycemia, without long-term current use of insulin E11.65 ; Abdominal bloating R14.0 and Other fatigue R53.83 [place] [address] 98706- 7775 Dec, Elevated ALT measurement R74.0 [facility] [id number] [place] [address] 18944- 7501 Nov, Type 2 diabetes mellitus with hyperglycemia, without long- term current use of insulin E11.65 and Mixed hyperlipidemia E78.2 [place] [id number] [place] [address] 68569- 1591 Oct, [place] [address] 90820- 7141 Oct, Elevated ALT measurement R74.0 [place] [address] 04582- 3053 Oct, [place] [address] 90063- 8686 Oct, [place] [address] 15518- 7778 Oct, Breast cancer screening Z12.31 [place] [id number] [place] [address] 46033- 8017 Sep, Tension headache G44.209 ; Cervical disc disorder at C5-C6 level with radiculopathy M50.122 ; Other fatigue R53.83 ; Breast pain, left N64.4 ; Vertigo R42 and Abnormal tympanic membrane of left ear H73.92 [facility] [id number] [place] [address] 80536 -1537 Sep, Screening breast examination Z12.39 [place] [id number] [place] [address] 81821- 0041 Sep, [place] [address] 98631- 5004 Sep, Mixed hyperlipidemia E78.2 and Type 2 diabetes mellitus with hyperglycemia, without long-term current use of insulin E11.65 [place] [id number] [place] [address] 80590- 7054 Jul, [place] [id number] [place] [address] 30386- 0901 07 Jul, 2017 Lumbago with sciatica, right side M54.41 and Other chronic pain G89.29 [facility] [id number] [place] [address] 71922- 9495 May, Type 2 diabetes mellitus with hyperglycemia, without long- term current use of insulin E11.65 ; Low back pain M54.5 ; Tobacco use Z72.0 ; Mixed hyperlipidemia E78.2 ; Lateral epicondylitis of right elbow M77.11 and 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 [facility] [id number] [place] [address] 05021- 9389 Apr, [facility] [id number] [place] [address] 58582- 8717 Apr, Low back pain M54.5 [facility] [id number] [place] [address] 91918- 1485 Apr, Pain in thoracic spine M54.6 [facility] [id number] [place] [address] 72684 -3123 March, Lumbosacral neuritis M54.17 [facility] [id number] [place] [address] 57732- 8467 March, Low back pain M54.5 [facility] [id number] [place] [address] 49675- 2765 March, [facility] [id number] [place] [address] 24391- 9452 March, [facility] [id number] [place] [address] 14151- 5608 March, [facility] [id number] [place] [address] 18626- 1821 Feb, [facility] [id number] [place] [address] 24871- 3379 Feb, [place] [id number] [place] [address] 26264- 8337 Feb, [place] [id number] [place] [address] 25323- 9028 Feb, Low back pain M54.5 and Pain in thoracic spine M54.6 [place] [id number] [place] [address] 64249- 6291 Jan, Panic attacks F41.0 ; Type 2 diabetes mellitus with hyperglycemia, without long-term current use of insulin E11.65 and Other chest pain R07.89 [place] [id number] [place] [address] 77363- 5929 Jan, [place] [address] 60944- 9480 Jan, Type 2 diabetes mellitus with hyperglycemia, without long- term current use of insulin E11.65 [place] [id number] [place] [address] 50683- 2554 Jan, Pain in thoracic spine M54.6 [place] [id number] [place] [address] 31572- 2708 Jan, Type 2 diabetes mellitus with hyperglycemia, without long- term current use of insulin E11.65 and Elevated liver enzymes R74.8 [place] [id number] [place] [address] 12643- 4036 Jan, [place] [id number] [place] [address] 40558- 7916 Dec, Tobacco use Z72.0 ; Prediabetes R73.09 ; Elevated liver enzymes R74.8 ; Elevated fasting glucose R73.01 ; Elevated ALT measurement R74.0 ; Pain in thoracic spine M54.6 ; Panic attacks F41.0 and Type 2 diabetes mellitus with hyperglycemia, without long-term current use of insulin E11.65 [facility] [id number] [place] [address] 22219 -3435 Jun, Abdominal pain, right upper quadrant R10.11 [facility] [address] [address]- 8473 Jun, [facility] [id number] [place] [address] 46988- 7789 Jun, [facility] [id number] [place] [address] 95843- 7659 Jun, [facility] [id number] [place] [address] 24109- 7391 May, Routine gynecological examination Z01.419 ; Encounter for Papanicolaou smear for cervical cancer screening Z12.4 ; Screening breast examination Z12.39 ; Vaginal discharge N89.8 and Candidal vaginitis B37.3 [place] [address] [place] [address] 90187- 2522 May, [place] [id number] [place] [address] 72639- 8649 May, Prediabetes R73.09 ; Elevated ALT measurement R74.0 ; Elevated fasting glucose R73.01 and Palpitations R00.2 [place] [id number] [place] [address] 33252- 8233 Feb, [place] [id number] [place] [address] 44777- 1991 Feb, [place] [id number] [place] [address] 27229- 0868 Feb, Generalized anxiety disorder F41.1 and Major depressive disorder, recurrent episode, moderate F33.1 [facility] [id number] [place] [address] 06748- 0417 07 Feb, 2016 Generalized anxiety disorder F41.1 ; Low back pain M54.5 and Insomnia G47.00 [place] [id number] [place] [address] 39829- 5858 Jan, Elevated fasting glucose R73.01 and Elevated ALT measurement R74.0 [place] [address] [place] [address]- 5159 Jan, Generalized anxiety disorder F41.1 ; Low back pain M54.5 and Screening cholesterol level Z13.220 [facility] [id number] [place] [address] 20084- 3004 04 Dec, 2015 Scoliosis M41.9 and Anxiety F41.9 [facility] [id number] [place] [address] 74018- 9772 14 Feb, 2015 [facility] [id number] [place] [address] 30228- 4925 Feb, [facility] [id number] [place] [address] 98690- 9924 Apr, [facility] [id number] [place] [address] 43070- 9578 March, [facility] [id number] [place] [address] 77343- 7551 March, [facility] [id number] [place] [address] 24523- 3843 March, [facility] [id number] [place] [address], [place] [address]- 1790 March, [facility] [id number] [address]- 0828 March, [facility] [id number] [place] [address] 69465- 4280 March, [facility] [address] [address]- 3628 March, [facility] [id number] [place] [address] 91095- 7892 March, [facility] [id number] [place] [address]- 1620 Feb, [facility] [id number] [place] [address] 27601- 0985 Feb, [facility] [place] [facility] [address] [id number] [place] [address]- 3592 Feb, [facility] [place] [facility] [address] [id number] [place] [address]- 8731 Feb, [facility] [place] [facility] [address] [id number] [place] [address]- 8488 Jan, [facility] [place] [facility] [address] [id number] [place] [address]- 6702 Jan, [facility] [place] [facility] [address] [id number] [place] [address]- 1429 Jan, [facility] [place] [facility] [address] [id number] [place] [address]- 8329 Jan, [facility] [place] [facility] [address] [id number] [place] [address]- 2684 Jan, [facility] [place] [facility] [address] [id number] [place] [address]- 4118 Jan, [facility] [place] [facility] [address] [id number] [place] [address]- 3864 Jan, [facility] [place] [facility] [address] [id number] [place] [address]- 5437 Dec, [facility] [place] [facility] [address] [id number] [place] [address]- 4773 Dec, [facility] [place] [facility] [address] [id number] [place] [address]- 6603 Dec, [facility] [place] [facility] [address] [id number] [place] [address]- 4629 Dec, [facility] [place] [facility] [address] [id number] [place] [address]- 9355 Dec, [facility] [place] [facility] [address] [id number] [place] [address]- 1736 Dec, [facility] [place] [facility] [address] [id number] [place] [address]- 6755 Nov, [facility] [address] [id number] [place] [address]- 5882 Nov, [facility] [address] [id number] [place] [address]- 9737 Nov, [facility] [address] [id number] [place] [address]- 8872 Nov, [facility] [address] [id number] [place] [address]- 6148 Nov, [facility] [address] [id number] [place] [address]- 0144 Nov, [facility] [address] [id number] [place] [address]- 4426 Nov, [facility] [address] [id number] [place] [address]- 4734 Oct, [facility] [address] [id number] [place] [address]- 0286 Oct, [facility] [address] [id number] [place] [address]- 7429 Oct, [facility] [address] [id number] [place] [address]- 8361 Oct, [facility] [address] [id number] [place] [address]- 5509 Sep, [facility] [address] [id number] [place] [address]- 2910 Sep, [facility] [place] [facility] [address] [id number] [place] [address]- 3862 Sep, [facility] [place] [facility] [address] [id number] [place] [address]- 1013 Sep, [facility] [address] [id number] [place] [address]- 0898 Sep, [facility] [place] [facility] [address] [id number] [place] [address] 2547 Sep, [facility] [place] [facility] [address] [id number] [place] [address] 2546 Aug, [facility] [place] [facility] [address] [id number] [place] [address] 2547 Aug, [facility] [place] [facility] [address] [id number] [place] [address]- 2540 Aug, [facility] [place] [facility] [address] [id number] [place] [address]- 0869 Aug, [facility] [place] [facility] [address] [id number] [place] [address]- 2546 Aug, [facility] [place] [facility] [address] [id number] [place] [address]- 2547 Aug, [facility] [place] [facility] [address] [id number] [place] [address]- 1649 Aug, [facility] [place] [facility] [address] [id number] [place] [address]- 6364 Jul, [facility] [place] [facility] [address] [id number] [place] [address]- 7828 Jul, [facility] [place] [facility] [address] [id number] [place] [address] 254 Jun, [facility] [place] [facility] [address] [id number] [address]- 2546 May, [facility] [place] [facility] [address] [id number] [place] [address]- 2548 May, [facility] [place] [facility] [address] [id number] [place] [address]- 2546 May, [facility] [place] [facility] [address] [id number] [place] [address]- 2546 Apr, [facility] [place] [facility] [address] [id number] [address]- 1047 Apr, [facility] [address] [id number] [place] [address]- 7221 Apr, [facility] [address] [id number] [place] [address]- 5390 March, [facility] [address] [id number] [place] [address]- 1711 March, [facility] [address] [id number] [place] [address]- 7447 March, [facility] [address] [id number] [place] [address]- 3143 Feb, [facility] [address] [id number] [place] [address]- 6643 Feb, [facility] [address] [id number] [place] [address]- 5474 15 Feb, 2013 [facility] [address] [id number] [place] [address]- 5276 28 Jan, 2013 [facility] [address] [id number] [place] [address]- 9866 19 Jan, 2013 [facility] [place] [facility] [address] [id number] [place] [address]- 3463 18 Jan, 2013 [facility] [address] [id number] [place] [address]- 1918 15 Jan, 2013 [facility] [place] [facility] [address] [id number] [place] [address]- 7102 14 Jan, 2013 [facility] [place] [facility] [address] [id number] [place] [address]- 6332 12 Jan, 2013 [facility] [place] [facility] [address] [id number] [place] [address]- 8841 05 Jan, 2013 [facility] [place] [facility] [address] [id number] [place] [address]- 6796 28 Dec, 2012 [facility] [place] [facility] [address] [id number] [place] [address]- 5825 18 Dec, 2012 [facility] [address] [id number] [place] [address]- 6003 15 Dec, 2012 [facility] [place] [facility] [address] [id number] [place] [address]- 2426 14 Dec, 2012 [facility] [place] [facility] [address] [id number] [place] [address]- 3276 05 Dec, 2012 [facility] [place] [facility] [address] [id number] [place] [address]- 3215 29 Nov, 2012 [facility] [place] [facility] [address] [id number] [place] [address]- 6553 17 Nov, 2012 [facility] [address] [id number] [place] [address]- 5009 Nov, [facility] [address] [id number] [place] [address]- 1091 Nov, [facility] [address] [id number] [place] [address]- 3879 31 Oct, 2012 [facility] [address] [id number] [place] [address]- 4340 31 Oct, 2012 [facility] [address] [id number] [place] [address]- 3924 18 Oct, 2012 [facility] [address] [id number] [place] [address]- 1609 18 Oct, 2012 [facility] [place] [facility] [address] [id number] [place] [address]- 6457 12 Oct, 2012 [facility] [place] [facility] [address] [id number] [place] [address]- 3280 12 Oct, 2012 [facility] [place] [facility] [address] [id number] [place] [address]- 4668 10 Oct, 2012 [facility] [place] [facility] [address] [id number] [address]- 4076 Oct, [facility] [place] [facility] [address] [id number] [place] 2972 Oct, [facility] [place] [facility] [address] [id number] [place] [address]- 2554 Sep, [facility] [place] [facility] [address] [id number] [place] [address]- 5529 Sep, [facility] [place] [facility] [address] [id number] [address]- 3397 Sep, [facility] [place] [facility] [address] [id number] [place] [address]- 4747 Sep, [facility] [place] [facility] [address] [id number] [place] [address]- 1564 Sep, [facility] [place] [facility] [address] [id number] [place] [address]- 1732 Aug, [facility] [place] [facility] [address] [id number] [place] [address]- 6055 Aug, [facility] [place] [facility] [address] [id number] [place] [address]- 2873 Aug, [facility] [place] [facility] [address] [id number] [place] [address]- 3448 Aug, [facility] [place] [facility] [address] [id number] [place] [address]- 4492 16 Aug, 2012 [facility] [place] [facility] [address] [id number] [place] [address]- 4547 Aug, [facility] [place] [facility] [address] [id number] [place] [address]- 7422 11 Aug, 2012 [facility] [place] [facility] [address] [id number] [place] [address] Aug, [facility] [place] [facility] [address] [id number] [place] [address] Aug, [facility] [place] [facility] [address] [id number] [place] [address] 09 Aug, 2012 [facility] [address] [id number] [place] [address] 05 Aug, 2012 [facility] [place] [facility] [address] [id number] [place] [address] 04 Aug, 2012 [facility] [address] [id number] [place] [address] 17 Jul, 2012 [facility] [place] [facility] [address] [id number] [place] [address] 13 Jul, 2012 [facility] [address] [id number] [place] [address] 14[address] 13 Jul, 2012 [facility] [place] [facility] [address] [id number] [place] [address] 11 Jul, 2012 [facility] [place] [facility] [address] [id number] [place] [address]- 9916 10 Jul, 2012 [facility] [address] [id number] [place] [address] 08 Jul, 2012 [facility] [place] [facility] [address] [id number] [place] [address]- [address] 16 Jun, 2012 [facility] [address] [id number] [place] [address] 89[address] 14 Jun, 2012 [facility] [place] [facility] [address] [id number] [place] [address]366 17 May, 2012 [facility] [place] [facility] [address] [id number] [place] [address]- 77[address] 17 May, 2012 [facility] [place] [facility] [address] [id number] [place] [address]- 9259 13 May, 2012 [facility] [place] [facility] [address] [id number] [place] [address]- 6041 12 May, 2012 [facility] [place] [facility] [address] [id number] [place] [address]- [address] Apr, [facility] [address] [id number] [place] [address] Apr, [facility] [place] [facility] [address] [id number] [place] [address]- 4264 Apr, [facility] [place] [facility] [address] [id number] [place] [address]- [address]68 Apr, [facility] [place] [facility] [address] [id number] [place] [address]- 4049 Apr, [facility] [place] [facility] [address] [id number] [place] [address]- [address] March, [facility] [place] [facility] [address] [id number] [place] [address] March, [facility] [place] [facility] [address] [id number] [place] [address]- [address] March, [facility] [place] [facility] [address] [id number] [place] [address] 9960 March, [facility] [place] [facility] [address] [id number] [place] [address]- 2848 March, [facility] [place] [facility] [address] [id number] [place] [address] 70[address] Feb, [facility] [place] [facility] [address] [id number] [place] [address]- [address]262 Feb, [facility] [place] [facility] [address] [id number] [place] [address] Jan, [facility] [place] [facility] [address] [id number] [place] [address]- [address] Jan, [facility] [place] [facility] [address] [id number] [place] [address]- 1494 Jan, [facility] [place] [facility] [address] [id number] [place] [address] 8264 Dec, [facility] [place] [facility] [address] [id number] [place] [address] Nov, [facility] [place] [facility] [address] [id number] [place] [address] Nov, [facility] [place] [facility] [address] [id number] [place] [address]- [address] Nov, [facility] [place] [facility] [address] [id number] [place] [address]99 Nov, [facility] [place] [facility] [address] [id number] [place] [address]- [address] Oct, [facility] [place] [facility] [id number] [place] [address], [place] [address]- [address] Oct, [facility] [place] [facility] [address] [id number] [place] [address] Sep, [facility] [place] [facility] [id number] [place] [address] Sep, [facility] [place] [facility] [address] [id number] [place] [address] Sep, [facility] [place] [facility] [address] [id number] [place] [address] Sep, [facility] [place] [facility] [id number] [place] [address] Sep, [facility] [place] [facility] [address] [id number] [place] [address] 16 Jun, 2011 [facility] [place] [facility] [address] [id number] [address] Dec, [facility] [place] [facility] [address] [id number] [address] Sep, [facility] [place] [facility] [address] [id number] [place] [address] Aug, [facility] [place] [facility] [address] [id number] [address] Aug, [facility] [place] [facility] [id number] [address] Aug, [facility] [id number] [address] Aug, [facility] [id number] [address] Aug, [facility] [id number] [address] Jun, [facility] [id number] [address] Feb, [facility] [id number] [address] Sep, [facility] [id number] [address] Aug, [facility] [id number] [address] Apr, [facility] [id number] [address] March, IMMUNIZATIONS No Known Immunizations SOCIAL HISTORY Never Assessed REASON FOR VISIT PT follow-up PLAN OF CARE Activity Details Follow Up 3 Weeks Reason:F/U Pt VITAL SIGNS MEDICATIONS Unknown Medications RESULTS No Results PROCEDURES Procedure Date Ordered Result Body Site THERAPEUTIC EXERCISES April 10, 2017 INSTRUCTIONS MEDICATIONS ADMINISTERED No Known Medications MEDICAL (GENERAL) HISTORY Type Description Date Medical History Scoliosis Medical History Bipolar Surgical History right hip replacement Surgical History c-sections x4 Hospitalization History Pneumonia 2011
== END 2018-06-10 00:16 | disposition home or self-care (01) ==
LOC: EDUNIT# 23:22 → ER 23:25
DX: R20.2 Paresthesia of skin (principal); J43.9 Emphysema, unspecified; E78.00 Pure hypercholesterolemia, unspecified; I10 Essential (primary) hypertension; G25.81 Restless legs syndrome; E11.9 Type 2 diabetes mellitus without complications; F41.9 Anxiety disorder, unspecified; F31.9 Bipolar disorder, unspecified; F13.10 Sedative, hypnotic or anxiolytic abuse, uncomplicated; F17.210 Nicotine dependence, cigarettes, uncomplicated; Z87.59 Personal history of other complications of pregnancy, childbirth and the puerperium; Z90.710 Acquired absence of both cervix and uterus; Z88.2 Allergy status to sulfonamides; Z88.5 Allergy status to narcotic agent; Z79.84 Long term (current) use of oral hypoglycemic drugs
CPT/HCPCS: 96372; 99284

== ENCOUNTER 2019-01-20 15:16 | Emergency (ER) | payer MEDICARE, MEDICAID ==
[~2019-01-20] VITALS: Ht 154.9 cm; Wt 72.6 kg
[~2019-01-20 15:16] MED LIST changes: +MELO15TA14 PO; +METO-370; -OXYC-197 PO; +OXYC1TAB87 PO; -ROSU10TA PO; +ROSU10TA22 PO
--- NOTE | 2019-01-20 15:47 | ED Abdominal Pain ---
General Chief Complaint: Rect Problems Stated Complaint: BLOOD IN STOOL Nursing Triage Note: PT AMB TO [facility] 6 WITH COMPLAINT OF RECTAL BLEEDING. STATES THIS HAS BEEN GOING ON FOR A MONTH. HAS BEEN TO SEE DR PULIDO. STATES SHE HAD APPOINTNENT TO SEE DR PAINTER TODAY, BUT DID NOT HAVE A RIDE AND HAD TO CANCEL. STATES IT IS BRIGHT RED BLOOD Sepsis Screen: No Definite Risk Source of Information: Patient Exam Limitations: No Limitations History of Present Illness Date Seen by Provider: Jan 20, 2019 Time Seen by Provider: 15:47 Initial Comments 53-year-old female who presented to the emergency room with complaint of rectal bleeding. She reports that she's had the bleeding for 1 month and has been seen and evaluated by Dr. Pulido who referred her to Dr. Painter. She had an appointment scheduled with Dr. Painter earlier today but was unable to make the appointment time due to not having a ride. She is rescheduled for next week. She reports that she noticed bright red blood when she wipes. She denies any pain, nausea, vomiting, diarrhea. Timing/Duration: Other (1 month) Associated Symptoms: Denies Symptoms Allergies and Home Medications Allergies Coded Allergies: Sulfa (Sulfonamide Antibiotics) (Verified Allergy, Unknown, 04/18/06) hydrocodone (Verified Adverse Reaction, Unknown, SICK TO STOMACH, 02/02/14) Home Medications Cyclobenzaprine HCl 10 Mg Tablet, 10 MG PO Q8H Prescribed by: KADIE LAUGHLIN on 06/09/18 2354 Hydroxyzine HCl 25 Mg Tablet, 25 MG PO Q8H PRN for ANXIETY Prescribed by: KRISTOPHER MILLER on 01/28/18 1221 Meloxicam 15 Mg Tablet, 15 MG PO DAILY Prescribed by: KADIE LAUGHLIN on 06/09/18 2354 Metformin HCl 500 Mg Tab.er.24h, 500 MG PO DAILY, (Reported) Ondansetron 4 Mg Tab.rapdis, 4 MG PO Q4H PRN for NAUSEA/VOMITING-1ST LINE Prescribed by: SHAILEHS SINHA on 12/29/17 0510 Oxycodone HCl/Acetaminophen 1 Each Tablet, 1-2 EACH PO Q4H Prescribed by: JENNIFER GARCIA on 12/27/17 1427 Polyethylene Glycol 3350 17 Gm Powd.pack, 17 GM PO TID Prescribed by: SHAILESH SINHA on 12/29/17 0512 Patient Home Medication List Home Medication List Reviewed: Yes Review of Systems Review of Systems Constitutional: see HPI; No chills, No fever Gastrointestinal: See HPI; Denies Abdominal Pain, Denies Constipated, Denies Diarrhea, Denies Nausea; Rectal Bleeding; Denies Vomiting All Other Systems Reviewed Negative Unless Noted: Yes Past Tttkeej-Vtqldk-Cdnwtj Hx Past Med/Social Hx: Reviewed Nursing Past Med/Soc Hx Patient Social History Alcohol Use: Denies Use Recreational Drug Use: No Drug of Choice: BENZODIAZEPINE ABUSE Smoking Status: Current Everyday Smoker Type Used: Cigarettes Former Smoker, Quit: Jan 28, 2018 2nd Hand Smoke Exposure: Yes Recent Foreign Travel: No Contact w/Someone Who Travel: No Recent Infectious Disease Expo: No Recent Hopitalizations: No Immunizations Up To Date Tetanus Booster (TDap): Unknown PED Vaccines UTD: No Seasonal Allergies Seasonal Allergies: No Past Medical History Surgeries: Yes Section, Gallbladder, 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, Joint Replacement, Orthopedic Respiratory: Yes COPD, Emphysema Cardiac: Yes High Cholesterol, Hypertension, Palpitations Neurological: Yes Headaches /Migraines 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 Disorders: No [employer]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 Sexually Transmitted Disease: No 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: No Gastrointestinal: No Musculoskeletal: Yes Arthritis, Scoliosis, Chronic Back Pain, Fractures Endocrine: Yes Diabetes, Non-Insulin dep HEENT: Yes (DENTURES) Cancer: No Psychosocial: Yes Sleep Difficulties, Anxiety, Bipolar, Depression Integumentary: No Blood Disorders: No Adverse Reaction/Blood Tranf: No Family Medical History Reviewed Nursing Family Hx Psychiatric Problems Physical Exam Vital Signs Vital Signs - First Documented 01/20/19 15:27 Temp 97.0 Pulse 66 Resp 20 B/P (MAP) 109/71 (84) Pulse Ox 96 O2 Delivery Room Air Capillary Refill : Less Than 3 Seconds Height/Weight/BMI Height: 5'1.00" Weight: 160lbs. 0.0oz. [id number]; 31.1 BMI Method:Stated General Appearance: WD/WN, no apparent distress Respiratory: chest non-tender, lungs clear, normal breath sounds, no respiratory distress, no accessory muscle use Cardiovascular: normal peripheral pulses, regular rate, rhythm, no edema, no gallop, no JVD, no murmur Gastrointestinal: normal bowel sounds, non tender, soft, no organomegaly, no pulsatile mass Rectal: normal exam, normal rectal tone, heme positive stool, other (Exam was assisted by David Vallejo female nurse.) Extremities: normal capillary refill Neurologic/Psychiatric: alert, normal mood/affect, oriented x 3 Skin: normal color, warm/dry Progress/Results/Core Measures Results/Orders Lab Results Laboratory Tests Test 01/20/19 16:10 Range/Units White Blood Count 6.1 4.3-11.0 10^3/uL Red Blood Count 4.14 L 4.35-5.85 10^6/uL Hemoglobin 12.8 11.5-16.0 G/DL Hematocrit 38 35-52 % Mean Corpuscular Volume 92 80-99 FL Mean Corpuscular Hemoglobin 31 25-34 PG Mean Corpuscular Hemoglobin Concent 34 32-36 G/DL Red Cell Distribution Width 12.7 10.0-14.5 % Platelet Count 215 130-400 10^3/uL Mean Platelet Volume 9.2 7.4-10.4 FL Neutrophils (%) (Auto) 57 42-75 % Lymphocytes (%) (Auto) 29 12-44 % Monocytes (%) (Auto) 7 0-12 % Eosinophils (%) (Auto) 6 0-10 % Basophils (%) (Auto) 0 0-10 % Neutrophils # (Auto) 3.5 1.8-7.8 X 10^3 Lymphocytes # (Auto) 1.8 1.0-4.0 X 10^3 Monocytes # (Auto) 0.5 0.0-1.0 X 10^3 Eosinophils # (Auto) 0.4 H 0.0-0.3 10^3/uL Basophils # (Auto) 0.0 0.0-0.1 10^3/uL Sodium Level 137 135-145 MMOL/L Potassium Level 4.1 3.6-5.0 MMOL/L Chloride Level 102 98-107 MMOL/L Carbon Dioxide Level 25 21-32 MMOL/L Anion Gap 10 5-14 MMOL/L Blood Urea Nitrogen 15 7-18 MG/DL Creatinine 0.90 0.60-1.30 MG/DL Estimat Glomerular Filtration Rate > 60 BUN/Creatinine Ratio 17 Glucose Level 183 H 70-105 MG/DL Calcium Level 9.6 8.5-10.1 MG/DL Corrected Calcium 9.5 8.5-10.1 MG/DL Total Bilirubin 0.5 0.1-1.0 MG/DL Aspartate Amino Transf (AST/SGOT) 32 5-34 U/L Alanine Aminotransferase (ALT/SGPT) 50 0-55 U/L Alkaline Phosphatase 113 40-136 U/L Total Protein 6.7 6.4-8.2 GM/DL Albumin 4.1 3.2-4.5 GM/DL Amylase Level 34 25-125 U/L Lipase 34 8-78 U/L My Orders Orders - DA HERNANDEZ Comprehensive Metabolic Panel (01/20/19 15:46) Lipase (01/20/19 15:46) Amylase (01/20/19 15:46) Cbc With Automated Diff (01/20/19 15:46) Vital Signs/I&O 01/20/19 01/20/19 15:27 17:21 Temp 97.0 97.0 Pulse 66 66 Resp 20 20 B/P (MAP) 109/71 (84) 109/71 (84) Pulse Ox 96 96 O2 Delivery Room Air Blood Pressure Mean: 84 Progress Progress Note : Time: 17:10 Progress Note I have seen and evaluated the patient. I have reviewed her laboratory findings with her. Given normal hemoglobin the patient is otherwise stable to keep her appointment with Dr. Painter. I stressed the importance of keeping her follow-up appointment with Dr. Painter next week. She agrees with plan of care, plans for discharge, return precautions were given. Departure Impression Primary Impression: Rectal bleeding Disposition: 01 HOME, SELF-CARE Condition: Stable/Unchanged Departure-Patient Inst. Decision time for Depature: 17:10 Referrals: ROMY PULIDO MD (PCP/Family) Primary Care Physician Patient Instructions: Gastrointestinal Bleeding Add. Discharge Instructions: Keep your appointment with Dr. Painter as previously scheduled. Return back to the emergency room for worsening rectal bleeding. Follow-up with Dr. Pulido as scheduled. All discharge instructions reviewed with patient and/or family. Voiced understanding. Work/School Note: Family Work Note Patient Received Medical Care In the Emergency Department On: Jan 20, 2019 Patient Will Be Able to Return to Work/School On: Jan 21, 2019 DA HERNANDEZ Jan 20, 2019 15:47
[2019-01-20 16:20] LABS: BASOPHILS % (AUTO) 0 % (0-10); EOSINOPHILS # (AUTO) 0.4 10^3/uL (0.0-0.3); EOSINOPHILS % (AUTO) 6 % (0-10); HEMATOCRIT 38 % (35-52); HEMOGLOBIN 12.8 G/DL (11.5-16.0); LYMPHOCYTES # (AUTO) 1.8 X 10^3 (1.0-4.0); LYMPHOCYTES % (AUTO) 29 % (12-44); MEAN CORPUSCULAR HEMOGLOBIN 31 PG (25-34); MEAN CORPUSCULAR HGB CONC 34 G/DL (32-36); MEAN CORPUSCULAR VOLUME 92 FL (80-99); MEAN PLATELET VOLUME 9.2 FL (7.4-10.4); MONOCYTES # (AUTO) 0.5 X 10^3 (0.0-1.0); MONOCYTES % (AUTO) 7 % (0-12); NEUTROPHILS # (AUTO) 3.5 X 10^3 (1.8-7.8); NEUTROPHILS % (AUTO) 57 % (42-75); PLATELET COUNT 215 10^3/uL (130-400); RED CELL DISTRIBUTION WIDTH 12.7 % (10.0-14.5); WHITE BLOOD COUNT 6.1 10^3/uL (4.3-11.0)
[2019-01-20 16:38] LABS: ALANINE AMINOTRANSFERASE 50 U/L (0-55); ALBUMIN 4.1 GM/DL (3.2-4.5); ALKALINE PHOSPHATASE 113 U/L (40-136); AMYLASE 34 U/L (25-125); BILIRUBIN,TOTAL 0.5 MG/DL (0.1-1.0); BUN/CREATININE RATIO 17; CALCIUM 9.6 MG/DL (8.5-10.1); CARBON DIOXIDE 25 MMOL/L (21-32); CHLORIDE 102 MMOL/L (98-107); GFR ESTIMATED > 60; GLUCOSE 183 MG/DL (70-105); LIPASE 34 U/L (8-78); POTASSIUM 4.1 MMOL/L (3.6-5.0); SODIUM 137 MMOL/L (135-145); TOTAL PROTEIN 6.7 GM/DL (6.4-8.2)
[2019-01-20 17:21] VITALS: BP 109/71
== END 2019-01-20 17:21 | disposition home or self-care (01) ==
LOC: EDUNIT# 15:16 → ER 15:17
DX: K62.5 Hemorrhage of anus and rectum (principal); F13.20 Sedative, hypnotic or anxiolytic dependence, uncomplicated; J43.9 Emphysema, unspecified; E78.00 Pure hypercholesterolemia, unspecified; I10 Essential (primary) hypertension; G43.909 Migraine, unspecified, not intractable, without status migrainosus; M41.9 Scoliosis, unspecified; E11.9 Type 2 diabetes mellitus without complications; F41.9 Anxiety disorder, unspecified; F31.9 Bipolar disorder, unspecified; Z87.891 Personal history of nicotine dependence; Z88.2 Allergy status to sulfonamides; Z88.5 Allergy status to narcotic agent; Z79.84 Long term (current) use of oral hypoglycemic drugs; Z98.890 Other specified postprocedural states; Z90.710 Acquired absence of both cervix and uterus
CPT/HCPCS: 36415; 80053; 82150; 83690; 85025

== ENCOUNTER 2019-01-30 05:40 | Outpatient (CLI) | payer MEDICARE, MEDICAID ==
[~2019-01-30] VITALS: Ht 154.9 cm; Wt 72.6 kg
[~2019-01-30 05:40] MED LIST changes: -METO-370; +METO-370 PO
[2019-01-30] MEDS ORDERED: MAGN400C PO (13:46)
[2019-01-30] MEDS ORDERED: METF-399 PO (13:46)
== END 2019-01-30 14:32 | disposition home or self-care (01) ==
LOC: PREOP 05:40
PROVIDERS: ATTEND Surgery
DX: Z01.818 Encounter for other preprocedural examination (principal)

== ENCOUNTER 2019-02-03 10:37 | Day surgery (SDC) | payer MEDICARE, MEDICAID ==
[~2019-02-03] VITALS: Ht 154.9 cm; Wt 72.6 kg
[~2019-02-03 10:37] MED LIST changes: +MAGN400C PO; +METF-399 PO
--- OUTSIDE RECORDS SUMMARY | 2019-02-03 10:42 | XMS REPORT ---
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 Name Role Phone Migration, Doctor Unavailable Unavailable PROBLEMS Type Condition ICD9-CM Code FSR86-HU Code Onset Dates Condition Status SNOMED Code Problem Fibromyalgia M79.7 Active 799498549 Problem Chest pain, unspecified type R07.9 Active 56072246 Problem Major depressive disorder, recurrent episode, moderate F33.1 Active 372916410 Problem Generalized anxiety disorder F41.1 Active 53378495 Problem Panic attacks F41.0 Active 739567648 Problem Type 2 diabetes mellitus with hyperglycemia, without long-term current use of insulin E11.65 Active 81973112 Problem Mixed hyperlipidemia E78.2 Active 261244891 Problem Tobacco use Z72.0 Active 418523895 Problem Retinitis pigmentosa H35.52 Active 49984283 Problem Anxiety state, unspecified F41.1 Active 727513663 Problem Carpal tunnel syndrome of left wrist G56.02 Active 633140145487630 Problem Sinusitis J32.9 Active 19896665 Problem Cervical disc disorder at C5-C6 level with radiculopathy M50.122 Active 939263326 Problem Seasonal allergic rhinitis, unspecified trigger J30.2 Active 209063354 Problem Tension headache G44.209 Active 890531501 Problem Peripheral polyneuropathy G62.9 Active 81043211 Problem Venous insufficiency (chronic) (peripheral) I87.2 Active 29159108 Problem Constipation K59.00 Active 47593205 Problem Degenerative disc disease, lumbar M51.36 Active 75115750 ALLERGIES No Information ENCOUNTERS Encounter Location Date Diagnosis [facility] [id number] [place] [address] 98391- 0077 Jan, Elevated ALT measurement R74.0 [facility] [address] [address] Jan, [facility] [address] [place] [id number] [place] [address] 66810- 3205 Jan, Elevated ALT measurement R74.0 [place] [address] 32240- 9510 Jan, Other fatigue R53.83 and Mixed hyperlipidemia E78.2 [place] [address] 16928- 2217 Jan, [place] [address] 75811- 4033 Dec, [place] [address] 23147- 4497 Dec, Type 2 diabetes mellitus with hyperglycemia, without long- term current use of insulin E11.65 ; Acute non-recurrent maxillary sinusitis J01.00 ; Cough R05 ; Seasonal allergic rhinitis, unspecified trigger J30.2 and Mixed hyperlipidemia E78.[address] 81294- 4584 Dec, Degenerative disc disease, lumbar M51.36 ; Lumbosacral neuritis M54.17 ; Lumbago with sciatica, right side M54.41 and Low back pain at multiple sites M54.5 [facility] [address] [place] [address] -7712 Dec, Sinusitis J32.[address] 14243- 8537 Nov, Low back pain at multiple sites M54.5 ; Degenerative disc disease, lumbar M51.36 and Blood in stool K92.1 [facility] [address] 28[address] -4062 Oct, Abdominal pain R10.9 and Constipation K59.[address] 70494- 9196 Sep, Cough R05 [address] 53391- 0270 Sep, Type 2 diabetes mellitus with hyperglycemia, without long- term current use of insulin E11.65 ; Cough R05 ; Tobacco use Z72.0 ; Mixed hyperlipidemia E78.2 and Colon cancer screening Z12.11 [place] [address] 34047- 3949 Sep, [facility] [place] [address] 6110[address] -8116 Aug, Venous insufficiency (chronic) (peripheral) I87.2 [facility] [address] [address] Aug, Left flank pain R10.9 and Muscle pain M79.[address] 13677- 4377 Aug, [address] 24297- 9120 Jul, Dependent edema R60.9 and Tobacco use Z72.[address] 98374- 4819 Jun, Cervical disc disorder at C5-C6 level with radiculopathy M50.[address] 22055- 9042 Jun, [address] 49304- 1425 Jun, Pneumonia of right lung due to infectious organism, unspecified part of lung J18.9 [place] [address] 81541- 9219 May, [address] 15809- 5382 May, Cough R05 [place] [address] 94580- 9750 May, [place] [address] 93513- 5924 May, COPD with exacerbation J44.1 [facility] [address] [place] [id number] [place] [address] 64083- 1386 May, Type 2 diabetes mellitus with hyperglycemia, without long- term current use of insulin E11.65 ; Peripheral polyneuropathy G62.9 ; Cough R05 and COPD with exacerbation J44.1 [place] [address] [place] [id number] [place] [address] 42862- 0421 May, [place] [address] [place] [id number] [place] [address] 53380- 9286 May, COPD with exacerbation J44.1 and Tobacco abuse counseling Z71.6 [place] [address] [place] [id number] [place] [address] 65441- 2296 May, [place] [address] [place] [id number] [place] [address] 69154- 4539 May, [facility] [id number] [place] [address] 88804 -7591 May, Numbness of left hand R20.0 and Carpal tunnel syndrome of left wrist G56.02 [place] [address] [place] [id number] [place] [address] 26917- 0134 May, [place] [address] [place] [id number] [place] [address] 79153- 9770 Apr, Type 2 diabetes mellitus with hyperglycemia, without long- term current use of insulin E11.65 [place] [address] [place] [id number] [place] [address] 57059- 7752 March, Anxiety state, unspecified F41.1 [place] [address] [place] [id number] [place] [address] 56358- 1861 Feb, [place] [address] [place] [id number] [place] [address] 42388- 2465 Feb, Medicare annual wellness visit, initial Z00.00 ; Type 2 diabetes mellitus with hyperglycemia, without long-term current use of insulin E11.65 ; Major depressive disorder, recurrent episode, moderate F33.1 ; Mixed hyperlipidemia E78.2 ; Fibromyalgia M79.7 ; Retinitis pigmentosa H35.52 ; Panic attacks F41.0 ; Facial skin lesion L98.9 ; Fullness of neck R22.1 and Screening for colon cancer Z12.11 [place] [address] 27297- 7737 Feb, Type 2 diabetes mellitus with hyperglycemia, without long- term current use of insulin E11.65 [place] [address] 20124- 7510 Jan, [place] [address] 87923- 0687 Jan, Asymptomatic microscopic hematuria R31.21 ; Chest pain, unspecified type R07.9 and Generalized anxiety disorder F41.1 [place] [address] 54621- 3758 Jan, [place] [address] 46249- 8456 Jan, [facility] [address] 45720 -8530 24 Dec, 2017 [place] [address] 11143- 5696 Dec, [place] [address] 27930- 3229 Dec, [facility] [address] 67485- 9164 Dec, [place] [address] 53845- 1538 14 Dec, 2017 [place] [address] 42907- 8822 13 Dec, 2017 Tension headache G44.209 [place] [address] 98472- 3620 Dec, Elevated LFTs R79.89 ; Type 2 diabetes mellitus with hyperglycemia, without long-term current use of insulin E11.65 ; Abdominal bloating R14.0 and Other fatigue R53.83 [place] [address] 10425- 9532 08 Dec, 2017 Elevated ALT measurement R74.0 [place] [address] 17565- 9545 Nov, Type 2 diabetes mellitus with hyperglycemia, without long- term current use of insulin E11.65 and Mixed hyperlipidemia E78.2 [place] [address] 26222- 5252 Oct, [place] [address] 42512- 3580 Oct, Elevated ALT measurement R74.0 [place] [address] 29224- 0976 Oct, [place] [address] 62159- 4780 Oct, [place] [address] 70526- 0423 Oct, Breast cancer screening Z12.31 [place] [address] 24101- 7529 Sep, Tension headache G44.209 ; Cervical disc disorder at C5-C6 level with radiculopathy M50.122 ; Other fatigue R53.83 ; Breast pain, left N64.4 ; Vertigo R42 and Abnormal tympanic membrane of left ear H73.92 [facility] [address] 99735 -6012 24 Sep, 2017 Screening breast examination Z12.39 [place] [address] 12449- 8844 Sep, [place] [address] 71240- 1765 Sep, Mixed hyperlipidemia E78.2 and Type 2 diabetes mellitus with hyperglycemia, without long-term current use of insulin E11.65 [facility] [address] [place] [id number] [place] [address] 36258- 9963 07 Jul, 2017 [place] [address] [place] [id number] [place] [address] 19064- 9283 Jul, Lumbago with sciatica, right side M54.41 and Other chronic pain G89.29 [place] [address] [place] [id number] [place] [address] 22985- 4933 May, Type 2 diabetes mellitus with hyperglycemia, without long- term current use of insulin E11.65 ; Low back pain M54.5 ; Tobacco use Z72.0 ; Mixed hyperlipidemia E78.2 ; Lateral epicondylitis of right elbow M77.11 and 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 [place] [address] [place] [id number] [place] [address] 45236- 2896 Apr, [place] [address] [place] [id number] [place] [address] 97370- 0973 Apr, Low back pain M54.5 [place] [address] [place] [id number] [place] [address] 75263- 0003 Apr, Pain in thoracic spine M54.6 [facility] [id number] [place] [address] 97639 -9099 March, Lumbosacral neuritis M54.17 [facility] [address] [place] [id number] [place] [address] 60257- 7335 March, Low back pain M54.5 [facility] [address] [place] [id number] [place] [address] 05101- 3625 March, [place] [address] [place] [id number] [place] [address] 20299- 5298 March, [place] [address] [place] [id number] [place] [address] 83101- 0637 March, [place] [address] [address]- 3543 Feb, [place] [address] [place] [id number] [place] [address] 71756- 5459 Feb, [place] [address] [place] [id number] [place] [address] 65069- 2343 Feb, [place] [address] [place] [id number] [place] [address] 15590- 0276 Feb, Low back pain M54.5 and Pain in thoracic spine M54.6 [place] [address] [place] [id number] [place] [address] 54452- 3344 Jan, Panic attacks F41.0 ; Type 2 diabetes mellitus with hyperglycemia, without long-term current use of insulin E11.65 and Other chest pain R07.89 [place] [address] [place] [id number] [place] [address] 49287- 5457 Jan, [place] [address] [place] [id number] [place] [address] 28228- 7815 Jan, Type 2 diabetes mellitus with hyperglycemia, without long- term current use of insulin E11.65 [place] [address] [place] [id number] [place] [address] 50892- 4290 Jan, Pain in thoracic spine M54.6 [place] [address] [place] [id number] [place] [address] 30684- 8149 Jan, Type 2 diabetes mellitus with hyperglycemia, without long- term current use of insulin E11.65 and Elevated liver enzymes R74.8 [place] [address] [place] [address] 71432- 3872 Jan, [place] [address] [place] [id number] [place] [address] 21865- 9123 Dec, Tobacco use Z72.0 ; Prediabetes R73.09 ; Elevated liver enzymes R74.8 ; Elevated fasting glucose R73.01 ; Elevated ALT measurement R74.0 ; Pain in thoracic spine M54.6 ; Panic attacks F41.0 and Type 2 diabetes mellitus with hyperglycemia, without long-term current use of insulin E11.65 [facility] [id number] [place] [address] 41659 -6589 Jun, Abdominal pain, right upper quadrant R10.11 [facility] [address] [place] [id number] [place] [address] 10826- 9993 Jun, [facility] [address] [place] [id number] [place] [address] 18233- 9221 Jun, [facility] [address] [place] [id number] [place] [address] 16341- 2026 Jun, [place] [address] [place] [id number] [place] [address] 99294- 2425 May, Routine gynecological examination Z01.419 ; Encounter for Papanicolaou smear for cervical cancer screening Z12.4 ; Screening breast examination Z12.39 ; Vaginal discharge N89.8 and Candidal vaginitis B37.3 [place] [address] [place] [id number] [place] [address] 89910- 1914 May, [place] [address] [place] [id number] [place] [address] 97433- 6962 May, Prediabetes R73.09 ; Elevated ALT measurement R74.0 ; Elevated fasting glucose R73.01 and Palpitations R00.2 [place] [address] [place] [id number] [place] [address] 20881- 4708 Feb, [place] [address] [place] [id number] [place] [address] 11610- 7799 Feb, [place] [address] [place] [id number] [place] [address] 00617- 5302 Feb, Generalized anxiety disorder F41.1 and Major depressive disorder, recurrent episode, moderate F33.1 [facility] [address] [place] [id number] [place] [address] 58837- 1694 Feb, Generalized anxiety disorder F41.1 ; Low back pain M54.5 and Insomnia G47.00 [facility] [address] [place] [id number] [place] [address] 27133- 0727 Jan, Elevated fasting glucose R73.01 and Elevated ALT measurement R74.0 [facility] [address] [id number] [place] [address] 13869- 3290 Jan, Generalized anxiety disorder F41.1 ; Low back pain M54.5 and Screening cholesterol level Z13.220 [facility] [address] [place] [id number] [place] [address] 80512- 0789 Dec, Scoliosis M41.9 and Anxiety F41.9 [facility] [address] 78723- 5301 Feb, [facility] [address] [place] [id number] [place] [address] 08531- 6136 Feb, [facility] [address] [place] [id number] [place] [address] 57295- 0703 Apr, [facility] [address] [place] [id number] [place] [address] 72872- 7913 March, [facility] [address] [place] [id number] [place] [address] 10231- 9584 March, [facility] [address] [place] [id number] [place] [address] 60879- 2856 March, [facility] [address] [place] [id number] [place] [address] 58410- 7506 March, [facility] [address] [place] [id number] [place] [address] 91725- 1301 March, [facility] [address] [place] [id number] [place] [address] 92528- 4847 March, [facility] [id number] [place] [address] 49551- 3966 March, [facility] [address] [id number] [place] [address] 51094- 0943 March, [facility] [place] [facility] [address] [id number] [place] [address]- 7347 Feb, [facility] [place] [facility] [address] [id number] [place] 4201 Feb, [facility] [place] [facility] [address] [id number] [place] [address]- 2026 Feb, [facility] [place] [facility] [address] [id number] [place] [address]- 4521 Feb, [facility] [place] [facility] [address] [id number] [place] [address]- 8056 Jan, [facility] [place] [facility] [address] [id number] [place] [address]- 3062 Jan, [facility] [place] [facility] [address] [id number] [place] [address]- 7807 Jan, [facility] [place] [facility] [address] [id number] [place] [address]- 0479 Jan, [facility] [place] [facility] [address] [id number] [place] [address]- 8647 Jan, [facility] [place] [facility] [address] [id number] [place] [address]- 4286 Jan, [facility] [place] [facility] [address] [id number] [place] [address]- 7873 Jan, [facility] [place] [facility] [address] [id number] [place] [address]- 8437 Dec, [facility] [place] [facility] [address] [id number] [place] [address]- 1330 Dec, [facility] [place] [facility] [address] [id number] [place] [address]- 2448 Dec, [facility] [place] [facility] [address] [id number] [place] [address]- 5393 Dec, [facility] [place] [facility] [address] [id number] [place] [address]- 3560 Dec, [facility] [place] [facility] [address] [id number] [place] [address]- 5677 Dec, [facility] [place] [facility] [address] [id number] [place] [address]- 5093 Nov, [facility] [place] [facility] [address] [id number] [place] [address]- 1339 Nov, [facility] [place] [facility] [address] [id number] [place] [address]- 6555 Nov, [facility] [place] [facility] [address] [id number] [place] [address]- 2517 Nov, [facility] [place] [facility] [address] [id number] [place] [address]- 0942 Nov, [facility] [place] [facility] [address] [id number] [place] [address]- 6674 Nov, [facility] [place] [facility] [address] [id number] [place] [address]- 6730 Nov, [facility] [place] [facility] [address] [id number] [place] [address]- 2420 Oct, [facility] [place] [facility] [address] [id number] [place] [address]- 3925 Oct, [facility] [place] [facility] [address] [id number] [place] [address]- 5649 Oct, [facility] [place] [facility] [address] [id number] [place] [address]- 1608 Oct, [facility] [place] [facility] [address] [id number] [place] [address]- 8274 Sep, [facility] [place] [facility] [address] [id number] [place] [address]- 7477 Sep, [facility] [place] [facility] [address] [id number] [place] [address]- 4496 Sep, [facility] [place] [facility] [address] [id number] [place] [address] 2540 Sep, [facility] [place] [facility] [address] [id number] [place] [address]- 2546 Sep, [facility] [place] [facility] [address] [id number] [place] [address]- 2546 Sep, [facility] [place] [facility] [address] [id number] [place] [address]- 7829 Aug, [facility] [place] [facility] [address] [id number] [place] [address]- 1896 Aug, [facility] [place] [facility] [address] [id number] [place] [address]- 9237 Aug, [facility] [place] [facility] [address] [id number] [place] [address]- 4253 Aug, [facility] [place] [facility] [address] [id number] [place] [address]- 5319 Aug, [facility] [place] [facility] [address] [id number] [place] [address]- 9087 Aug, [facility] [place] [facility] [address] [id number] [place] [address] 254 Aug, [facility] [place] [facility] [address] [id number] [address] 2545 Jul, [facility] [place] [facility] [address] [id number] [address]- 2546 Jul, [facility] [place] [facility] [address] [id number] [place] [address]- 2546 Jun, [facility] [place] [facility] [address] [id number] [place] [address]- 2546 May, [facility] [place] [facility] [address] [id number] [place] [address]- 2546 May, [facility] [place] [facility] [address] [id number] [place] [address]- 2849 10 May, 2013 [facility] [address] [id number] [place] [address]- 9876 Apr, [facility] [address] [id number] [place] [address]- 2140 Apr, [facility] [address] [id number] [place] [address]- 3929 Apr, [facility] [address] [id number] [place] [address]- 8469 March, [facility] [address] [id number] [place] [address]- 3420 March, [facility] [address] [id number] [place] [address]- 1706 March, [facility] [address] [id number] [place] [address]- 1590 Feb, [facility] [address] [id number] [place] [address]- 0443 Feb, [facility] [address] [id number] [place] [address]- 1838 15 Feb, 2013 [facility] [address] [id number] [place] [address]- 3322 28 Jan, 2013 [facility] [address] [id number] [place] [address]- 8193 19 Jan, 2013 [facility] [address] [id number] [place] [address] 18 Jan, 2013 [facility] [address] [id number] [place] [address] 15 Jan, 2013 [facility] [address] [id number] [place] [address] 14 Jan, 2013 [facility] [address] [id number] [place] [address] 12 Jan, 2013 [facility] [address] [id number] [place] [address] 05 Jan, 2013 [facility] [place] [facility] [address] [id number] [place] [address] 28 Dec, 2012 [facility] [place] [facility] [address] [id number] [place] [address] 18 Dec, 2012 [facility] [place] [facility] [address] [id number] [place] [address] 15 Dec, 2012 [facility] [address] [id number] [place] [address] 14 Dec, 2012 [facility] [place] [facility] [address] [id number] [place] [address] 05 Dec, 2012 [facility] [place] [facility] [address] [facility] [id number] [place] [address] 29 Nov, 2012 [facility] [place] [facility] [address] [id number] [place] [address] Nov, [facility] [place] [facility] [address] [id number] [place] [address] Nov, [facility] [place] [facility] [address] [facility] [id number] [place] [address]- [address] Nov, [facility] [place] [facility] [address] [id number] [place] [address] 31 Oct, 2012 [facility] [place] [facility] [address] [id number] [place] [address] 31 Oct, 2012 [facility] [place] [facility] [address] [id number] [place] [address] 18 Oct, 2012 [facility] [place] [facility] [address] [id number] [place] [address] 18 Oct, 2012 [facility] [place] [facility] [address] [id number] [place] [address]- [address] 12 Oct, 2012 [facility] [place] [facility] [address] [id number] [place] [address]- [address] 12 Oct, 2012 [facility] [place] [facility] [address] [id number] [place] [address] 10 Oct, 2012 [facility] [place] [facility] [address] [id number] [place] [address] 10 Oct, 2012 [facility] [place] [facility] [address] [id number] [place] [address] Oct, [facility] [place] [facility] [address] [id number] [place] [address] Sep, [facility] [place] [facility] [address] [id number] [place] [address] Sep, [facility] [place] [facility] [address] [id number] [place] [address] Sep, [facility] [place] [facility] [address] [id number] [place] [address] Sep, [facility] [place] [facility] [address] [id number] [place] [address] Sep, [facility] [place] [facility] [address] [id number] [place] [address] Aug, [facility] [place] [facility] [address] [id number] [place] [address] Aug, [facility] [place] [facility] [address] [id number] [place] [address] Aug, [facility] [place] [facility] [address] [id number] [address] Aug, [facility] [place] [facility] [address] [id number] [place] [address] 16 Aug, 2012 [facility] [place] [facility] [address] [facility] [id number] [place] [address] Aug, [facility] [place] [facility] [address] [id number] [place] [address] Aug, [facility] [place] [facility] [address] [id number] [place] [address] 10 Aug, 2012 [facility] [place] [facility] [address] [id number] [place] [address] 10 Aug, 2012 [facility] [place] [facility] [address] [id number] [place] [address] 09 Aug, 2012 [facility] [place] [facility] [address] [id number] [place] [address] 05 Aug, 2012 [facility] [place] [facility] [address] [id number] [place] [address] 8866 04 Aug, 2012 [facility] [place] [facility] [address] [id number] [place] [address] 17 Jul, 2012 [facility] [place] [facility] [address] [id number] [place] [address] 39[address] 13 Jul, 2012 [facility] [place] [facility] [address] [id number] [place] [address] 13 Jul, 2012 [facility] [place] [facility] [address] [id number] [place] [address] 11 Jul, 2012 [facility] [place] [facility] [address] [id number] [place] [address]- 0988 10 Jul, 2012 [facility] [place] [facility] [address] [id number] [place] [address] 08 Jul, 2012 [facility] [place] [facility] [address] [id number] [place] [address] 111[address] 16 Jun, 2012 [facility] [place] [facility] [address] [id number] [place] [address]777 14 Jun, 2012 [facility] [place] [facility] [address] [id number] [place] [address] 9898 17 May, 2012 [facility] [place] [facility] [address] [id number] [place] [address] 17 May, 2012 [facility] [place] [facility] [address] [id number] [place] [address]- [address]346 13 May, 2012 [facility] [place] [facility] [address] [id number] [place] [address] May, [facility] [place] [facility] [address] [id number] [place] [address] Apr, [facility] [place] [facility] [address] [id number] [place] [address] Apr, [facility] [place] [facility] [address] [id number] [place] [address] 89[address] Apr, [facility] [place] [facility] [address] [id number] [place] [address] Apr, [facility] [place] [facility] [address] [id number] [place] [address]329 Apr, [facility] [place] [facility] [address] [id number] [place] [address] March, [facility] [place] [facility] [address] [id number] [place] [address] March, [facility] [place] [facility] [address] [id number] [place] [address] 3985 March, [facility] [place] [facility] [address] [id number] [place] [address]36 March, [facility] [place] [facility] [address] [id number] [place] [address] March, [facility] [place] [facility] [address] [id number] [place] [address] Feb, [facility] [place] [facility] [address] [id number] [place] [address] 84[address] Feb, [facility] [place] [facility] [address] [id number] [place] [address] Jan, [facility] [place] [facility] [address] [id number] [place] [address] Jan, [facility] [place] [facility] [address] [id number] [place] [address] Jan, [facility] [address] [id number] [place] [address] 1410 28 Dec, 2011 [facility] [address] [id number] [place] [address] Nov, [facility] [address] [id number] [place] [address] 67[address] Nov, [facility] [address] [id number] [place] [address]- 8817 Nov, [facility] [address] [id number] [place] [address] 65[address] Nov, [facility] [address] [id number] [place] [address] 9671 Oct, [facility] [address] [id number] [place] [address] 6087 Oct, [facility] [address] [id number] [place] [address]39 Sep, [facility] [address] [id number] [place] [address] 9479 18 Sep, 2011 [facility] [address] [id number] [place] [address] Sep, [facility] [address] [id number] [place] [address] 10 Sep, 2011 [facility] [address] [id number] [place] [address]- 9819 08 Sep, 2011 [facility] [place] [facility] [address] [id number] [place] [address]- 5845 16 Jun, 2011 [facility] [place] [facility] [address] [id number] [place] [address] 2776 15 Dec, 2010 [facility] [address] [id number] [place] [address]- 3058 Sep, [facility] [address] [id number] [place] [address] Aug, [facility] [address] [facility] [id number] [place] [address] Aug, [facility] [address] [facility] [id number] [place] [address]851 Aug, [facility] [address] [facility] [id number] [place] [address] Aug, [facility] [id number] [address] Aug, [facility] [id number] [place] [address] Jun, [facility] [id number] [address] Feb, [facility] [id number] [address] Sep, [facility] [id number] [address] Aug, [facility] [address] [id number] [address] 2804 Apr, [facility] [address] [id number] [address] March, IMMUNIZATIONS No Known Immunizations SOCIAL HISTORY Never Assessed REASON FOR VISIT [facility] PLAN OF CARE VITAL SIGNS MEDICATIONS Unknown Medications RESULTS No Results PROCEDURES No Known procedures INSTRUCTIONS MEDICATIONS ADMINISTERED No Known Medications MEDICAL (GENERAL) HISTORY Type Description Date Medical History Scoliosis Medical History Bipolar Medical History type 2 diabetes Medical History Insomnia Medical History Primary osteoarthritis of left hand Medical History Calculus of gallbladder without cholecystitis without obstruction Surgical History c-sections x4 Surgical History hysterectomy 1988 Surgical History right hip replacement 1990 Surgical History cholecystectomy 03/2018 Hospitalization History Pneumonia 2011
--- OUTSIDE RECORDS SUMMARY | 2019-02-03 10:42 | XMS REPORT ---
Author Author Migration, Doctor Organization [facility] Address Unknown Phone Unavailable Care Team Providers Care Cork Mixer Name Role Phone Migration, Doctor Unavailable Unavailable PROBLEMS Type Condition ICD9-CM Code KRB41-TU Code Onset Dates Condition Status SNOMED Code Problem Fibromyalgia M79.7 Active 052824528 Problem Fatty liver K76.0 Active 795775840 Problem Major depressive disorder, recurrent episode, moderate F33.1 Active 756338795 Problem Generalized anxiety disorder F41.1 Active 95981486 Problem Panic attacks F41.0 Active 873828125 Problem Type 2 diabetes mellitus with hyperglycemia, without long-term current use of insulin E11.65 Active 13295632 Problem Mixed hyperlipidemia E78.2 Active 404581560 Problem Tobacco use Z72.0 Active 493812778 Problem Retinitis pigmentosa H35.52 Active 30619583 Problem Anxiety state, unspecified F41.1 Active 653661110 Problem Carpal tunnel syndrome of left wrist G56.02 Active 431164125750180 Problem Sinusitis J32.9 Active 02049664 Problem Cervical disc disorder at C5-C6 level with radiculopathy M50.122 Active 962702898 Problem Seasonal allergic rhinitis, unspecified trigger J30.2 Active 863707580 Problem Tension headache G44.209 Active 312832450 Problem Chest pain, unspecified type R07.9 Active 43643871 Problem Peripheral polyneuropathy G62.9 Active 97208655 Problem Venous insufficiency (chronic) (peripheral) I87.2 Active 81626652 Problem Constipation K59.00 Active 34729475 Problem Degenerative disc disease, lumbar M51.36 Active 38155230 ALLERGIES No Information ENCOUNTERS Encounter Location Date Diagnosis [facility] [address] [address] Jan, Elevated ALT measurement R74.0 [facility] [address] [address] Jan, [facility] [id number] [place] [address] 6[address]28- 9712 Jan, Elevated ALT measurement R74.[address] [address]- [address] Jan, Other fatigue R53.83 and Mixed hyperlipidemia E78.2 [place] [address] [address]- 47[address] Jan, [place] [address] [address]66- 1451 Dec, [place] [address] 84[address]- 9919 Dec, Type 2 diabetes mellitus with hyperglycemia, without long- term current use of insulin E11.65 ; Acute non-recurrent maxillary sinusitis J01.00 ; Cough R05 ; Seasonal allergic rhinitis, unspecified trigger J30.2 and Mixed hyperlipidemia E78.[address] [address]- [address]63 Dec, Degenerative disc disease, lumbar M51.36 ; Lumbosacral neuritis M54.17 ; Lumbago with sciatica, right side M54.41 and Low back pain at multiple sites M54.5 [facility] [address] [address] 12 Dec, 2018 Sinusitis J32.[address] [address]- [address]7 Nov, Low back pain at multiple sites M54.5 ; Degenerative disc disease, lumbar M51.36 and Blood in stool K92.1 [facility] [address] [address] Oct, Abdominal pain R10.9 and Constipation K59.[address] [address]- 9577 Sep, Cough R05 [place] [address] 7[address]- 5624 Sep, Type 2 diabetes mellitus with hyperglycemia, without long- term current use of insulin E11.65 ; Cough R05 ; Tobacco use Z72.0 ; Mixed hyperlipidemia E78.2 and Colon cancer screening Z12.11 [place] [address] 6[address]67- 0491 Sep, [facility] [place] [address] [address]63 Aug, Venous insufficiency (chronic) (peripheral) I87.2 [facility] [place] [address] [address]79 Aug, Left flank pain R10.9 and Muscle pain M79.10 [place] [address] 76660- 2619 Aug, [place] [address] 62452- 5490 Jul, Dependent edema R60.9 and Tobacco use Z72.0 [place] [address] 11188- 1591 Jun, Cervical disc disorder at C5-C6 level with radiculopathy M50.122 [place] [address] 12346- 7262 Jun, [place] [address] 27838- 0062 Jun, Pneumonia of right lung due to infectious organism, unspecified part of lung J18.9 [place] [address] 01900- 1701 May, [place] [address] 08739- 7485 May, Cough R05 [place] [address] 79426- 0694 May, [place] [address] 52415- 4085 May, COPD with exacerbation J44.1 [place] [address] [place] [id number] [place] [address] 08098- 6542 May, Type 2 diabetes mellitus with hyperglycemia, without long- term current use of insulin E11.65 ; Peripheral polyneuropathy G62.9 ; Cough R05 and COPD with exacerbation J44.1 [place] [address] 18529- 3316 May, [place] [address] [place] [id number] [place] [address] 45714- 9144 May, COPD with exacerbation J44.1 and Tobacco abuse counseling Z71.6 [place] [address] [place] [id number] [place] [address] 09996- 2850 May, [place] [address] [place] [id number] [place] [address] 40583- 2462 May, [facility] [address] [place] [id number] [place] [address] 99641 -0057 May, Numbness of left hand R20.0 and Carpal tunnel syndrome of left wrist G56.02 [place] [address] [place] [id number] [place] [address] 52981- 7087 May, [place] [address] [place] [id number] [place] [address] 13581- 4886 Apr, Type 2 diabetes mellitus with hyperglycemia, without long- term current use of insulin E11.65 [place] [address] [place] [id number] [place] [address] 93999- 2976 March, Anxiety state, unspecified F41.1 [place] [address] [place] [id number] [place] [address] 56732- 0593 Feb, [place] [address] [place] [id number] [place] [address] 37183- 0676 Feb, Medicare annual wellness visit, initial Z00.00 ; Type 2 diabetes mellitus with hyperglycemia, without long-term current use of insulin E11.65 ; Major depressive disorder, recurrent episode, moderate F33.1 ; Mixed hyperlipidemia E78.2 ; Fibromyalgia M79.7 ; Retinitis pigmentosa H35.52 ; Panic attacks F41.0 ; Facial skin lesion L98.9 ; Fullness of neck R22.1 and Screening for colon cancer Z12.11 [place] [address] 93583- 0598 Feb, Type 2 diabetes mellitus with hyperglycemia, without long- term current use of insulin E11.65 [place] [address] 67[address]- 1973 Jan, [place] [address] 37729- 7727 Jan, Asymptomatic microscopic hematuria R31.21 ; Chest pain, unspecified type R07.9 and Generalized anxiety disorder F41.1 [place] [address] 56053- 4083 Jan, [place] [address] 09482- 5719 Jan, [facility] [address] [address] -6559 Dec, [place] [address] 84002- 7767 Dec, [place] [address] 10414- 7064 Dec, [place] [address] 15057- 5533 Dec, [place] [address] 79690- 7981 Dec, [place] [address] 30144- 0566 13 Dec, 2017 Tension headache G44.209 [place] [address] 22995- 3197 Dec, Elevated LFTs R79.89 ; Type 2 diabetes mellitus with hyperglycemia, without long-term current use of insulin E11.65 ; Abdominal bloating R14.0 and Other fatigue R53.83 [place] [address] [place] [id number] [place] [address] 52953- 9535 08 Dec, 2017 Elevated ALT measurement R74.0 [place] [address] [place] [id number] [place] [address] 63877- 2133 Nov, Type 2 diabetes mellitus with hyperglycemia, without long- term current use of insulin E11.65 and Mixed hyperlipidemia E78.2 [place] [address] 01473- 1354 Oct, [place] [address] [place] [id number] [place] [address] 86663- 4492 Oct, Elevated ALT measurement R74.0 [place] [address] 65860- 8389 Oct, [place] [address] [place] [id number] [place] [address] 30034- 8423 Oct, [place] [address] [place] [id number] [place] [address] 89690- 3816 Oct, Breast cancer screening Z12.31 [place] [address] [place] [id number] [place] [address] 23999- 0990 Sep, Tension headache G44.209 ; Cervical disc disorder at C5-C6 level with radiculopathy M50.122 ; Other fatigue R53.83 ; Breast pain, left N64.4 ; Vertigo R42 and Abnormal tympanic membrane of left ear H73.92 [facility] [address] [place] [id number] [place] [address] 03577 -2336 Sep, Screening breast examination Z12.39 [place] [address] [place] [id number] [place] [address] 18081- 6921 Sep, [place] [address] [place] [id number] [place] [address] 79449- 8968 Sep, Mixed hyperlipidemia E78.2 and Type 2 diabetes mellitus with hyperglycemia, without long-term current use of insulin E11.65 [facility] [address] [place] [id number] [place] [address] 53809- 0836 Jul, [place] [address] [place] [id number] [place] [address] 88957- 0156 Jul, Lumbago with sciatica, right side M54.41 and Other chronic pain G89.29 [place] [address] [place] [id number] [place] [address] 93291- 3691 May, Type 2 diabetes mellitus with hyperglycemia, without long- term current use of insulin E11.65 ; Low back pain M54.5 ; Tobacco use Z72.0 ; Mixed hyperlipidemia E78.2 ; Lateral epicondylitis of right elbow M77.11 and 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 [place] [address] [place] [id number] [place] [address] 09054- 9199 Apr, [place] [address] [place] [id number] [place] [address] 38773- 1613 Apr, Low back pain M54.5 [place] [address] [place] [id number] [place] [address] 70113- 5377 Apr, Pain in thoracic spine M54.6 [facility] [address] [place] [id number] [place] [address] 27820 -9697 March, Lumbosacral neuritis M54.17 [facility] [address] [place] [id number] [place] [address] 58244- 1982 March, Low back pain M54.5 [facility] [address] [place] [id number] [place] [address] 49253- 3157 March, [facility] [address] [place] [id number] [place] [address] 43628- 7099 March, [facility] [address] [place] [id number] [place] [address] 48040- 7239 March, [place] [address] [place] [id number] [place] [address] 10059- 6908 Feb, [place] [address] [place] [id number] [place] [address] 86027- 5119 Feb, [place] [address] [place] [id number] [place] [address] 04172- 8656 Feb, [place] [address] [place] [id number] [place] [address] 80065- 3040 Feb, Low back pain M54.5 and Pain in thoracic spine M54.6 [place] [address] [place] [id number] [place] [address] 74132- 6091 Jan, Panic attacks F41.0 ; Type 2 diabetes mellitus with hyperglycemia, without long-term current use of insulin E11.65 and Other chest pain R07.89 [place] [address] [place] [id number] [place] [address] 43598- 4484 Jan, [place] [address] [place] [id number] [place] [address] 53042- 3998 Jan, Type 2 diabetes mellitus with hyperglycemia, without long- term current use of insulin E11.65 [place] [address] [place] [address] 12554- 0348 Jan, Pain in thoracic spine M54.6 [place] [address] [place] [id number] [place] [address] 35827- 0319 Jan, Type 2 diabetes mellitus with hyperglycemia, without long- term current use of insulin E11.65 and Elevated liver enzymes R74.8 [place] [address] [place] [id number] [place] [address] 87326- 3845 Jan, [place] [address] [place] [address] 84070- 1010 Dec, Tobacco use Z72.0 ; Prediabetes R73.09 ; Elevated liver enzymes R74.8 ; Elevated fasting glucose R73.01 ; Elevated ALT measurement R74.0 ; Pain in thoracic spine M54.6 ; Panic attacks F41.0 and Type 2 diabetes mellitus with hyperglycemia, without long-term current use of insulin E11.65 [facility] [address] [place] [address] 40149 -2828 Jun, Abdominal pain, right upper quadrant R10.11 [facility] [address] [place] [id number] [place] [address] 41313- 7094 Jun, [facility] [address] [place] [id number] [place] [address] 05646- 8173 Jun, [place] [address] 62371- 2363 Jun, [facility] [address] [place] [id number] [place] [address] 33043- 2326 May, Routine gynecological examination Z01.419 ; Encounter for Papanicolaou smear for cervical cancer screening Z12.4 ; Screening breast examination Z12.39 ; Vaginal discharge N89.8 and Candidal vaginitis B37.3 [place] [address] [place] [id number] [place] [address] 17499- 9612 May, [place] [address] [place] [id number] [place] [address] 22632- 5169 May, Prediabetes R73.09 ; Elevated ALT measurement R74.0 ; Elevated fasting glucose R73.01 and Palpitations R00.2 [place] [address] [place] [id number] [place] [address] 71078- 2747 Feb, [place] [address] [place] [id number] [place] [address] 29592- 3575 Feb, [place] [address] [place] [id number] [place] [address] 45563- 3687 Feb, Generalized anxiety disorder F41.1 and Major depressive disorder, recurrent episode, moderate F33.1 [place] [address] [place] [id number] [place] [address] 39946- 3231 Feb, Generalized anxiety disorder F41.1 ; Low back pain M54.5 and Insomnia G47.00 [facility] [address] [place] [id number] [place] [address] 95972- 3283 Jan, Elevated fasting glucose R73.01 and Elevated ALT measurement R74.0 [facility] [address] [place] [id number] [place] [address] 35779- 8202 Jan, Generalized anxiety disorder F41.1 ; Low back pain M54.5 and Screening cholesterol level Z13.220 [facility] [address] [place] [id number] [place] [address] 06377- 3760 Dec, Scoliosis M41.9 and Anxiety F41.9 [facility] [address] [place] [id number] [place] [address] 16269- 3602 Feb, [facility] [address] [place] [id number] [place] [address] 21266- 5301 Feb, [facility] [address] [place] [id number] [place] [address] 61375- 6471 Apr, [facility] [address] [place] [id number] [place] [address] 99802- 1859 March, [facility] [address] [place] [id number] [place] [address] 40393- 7615 March, [facility] [address] [place] [address] 90311- 4457 March, [facility] [address] [place] [id number] [place] [address] 75583- 8859 March, [facility] [address] [place] [address] 19626- 0180 March, [facility] [address] [place] [id number] [place] [address] 02105- 9054 March, [facility] [address], [place] [address]- 7590 March, [facility] [address] [place] [id number] [address]- 1545 March, [facility] [address] [id number] [place] [address]- 2992 Feb, [facility] [place] [facility] [address] [id number] [place] [address]- 9366 Feb, [facility] [address] [id number] [place] [address]- 5366 Feb, [facility] [place] [facility] [address] [id number] [place] [address]- 3775 Feb, [facility] [address] [id number] [place]- 8273 Jan, [facility] [place] [facility] [address] [id number] [place] [address]- 9358 Jan, [facility] [place] [facility] [address] [id number] [place] [address]- 1278 Jan, [facility] [place] [facility] [address] [id number] [place] [address]- 9044 Jan, [facility] [place] [facility] [address] [id number] [place] [address]- 1888 Jan, [facility] [address] [id number] [place] [address]- 2614 Jan, [facility] [place] [facility] [address] [id number] [place] [address]- 6631 Jan, [facility] [place] [facility] [address] [id number] [place] [address]- 9008 Dec, [facility] [place] [facility] [address] [id number] [place] [address]- 6811 Dec, [facility] [place] [facility] [address] [id number] [place] [address]- 8586 Dec, [facility] [place] [facility] [address] [id number] [place] [address]- 8417 Dec, [facility] [place] [facility] [address] [id number] [place] [address]- 2316 Dec, [facility] [place] [facility] [address] [id number] [place] [address]- 6407 Dec, [facility] [place] [facility] [address] [facility] [id number] [place] [address]- 7567 Nov, [facility] [place] [facility] [address] [id number] [place] [address]- 4957 Nov, [facility] [place] [facility] [address] [id number] [place] [address]- 2421 Nov, [facility] [place] [facility] [address] [id number] [place] [address]- 2680 Nov, [facility] [place] [facility] [address] [id number] [place] [address]- 0665 Nov, [facility] [place] [facility] [address] [id number] [place] [address]- 6589 Nov, [facility] [place] [facility] [address] [id number] [place] [address]- 8025 Nov, [facility] [place] [facility] [address] [id number] [place] [address]- 8045 Oct, [facility] [place] [facility] [address] [id number], [place] [address]- 2393 Oct, [facility] [place] [facility] [address] [id number], [place] [address]- 0362 Oct, [facility] [place] [facility] [address] [id number] [place] [address]- 3157 Oct, [facility] [place] [facility] [address] [id number], [place] [address]- 0155 Sep, [facility] [place] [facility] [address] [id number] [place] [address]- 0887 Sep, [facility] [place] [facility] [address] [id number] [place] [address]- 4569 Sep, [facility] [place] [facility] [address] [id number] [place] [address]- 1567 Sep, [facility] [place] [facility] [address] [id number] [place] [address] 2549 Sep, [facility] [place] [facility] [address] [id number] [place] [address] 2544 Sep, [facility] [place] [facility] [address] [id number] [place] [address]- 1376 Aug, [facility] [place] [facility] [address] [id number] [place] [address]- 3241 Aug, [facility] [place] [facility] [address] [id number] [place] [address]- 5553 Aug, [facility] [place] [facility] [address] [id number] [place] [address]- 1764 Aug, [facility] [place] [facility] [address] [id number] [place] [address]- 3767 Aug, [facility] [place] [facility] [address] [id number] [place] [address]- 5987 Aug, [facility] [place] [facility] [address] [id number] [place] [address]- 7718 Aug, [facility] [place] [facility] [address] [id number] [place] [address]- 2571 Jul, [facility] [place] [facility] [address] [id number] [place] [address] 2541 Jul, [facility] [place] [facility] [address] [id number] [place] [address] 2549 Jun, [facility] [place] [facility] [address] [id number] [place] [address]- 2546 May, [facility] [place] [facility] [address] [id number] [place] [address]- 8105 May, [facility] [place] [facility] [address] [id number] [place] [address]- 8089 10 May, 2013 [facility] [address] [id number] [place] [address]- 7629 Apr, [facility] [address] [id number] [place] [address]- 8291 Apr, [facility] [address] [id number] [place] [address]- 7673 Apr, [facility] [address] [id number] [place] [address]- 1997 March, [facility] [address] [id number] [place] [address]- 3119 March, [facility] [address] [id number] [place] [address]- 2606 March, [facility] [address] [id number] [place] [address]- 3420 Feb, [facility] [address] [id number] [place] [address]- 2755 Feb, [facility] [address] [id number] [place] [address]- 9852 Feb, [facility] [address] [id number] [place] [address]- 9136 28 Jan, 2013 [facility] [address] [id number] [place] [address] 19 Jan, 2013 [facility] [address] [id number] [place] [address] 18 Jan, 2013 [facility] [place] [facility] [address] [id number] [place] [address] 15 Jan, 2013 [facility] [address] [id number] [place] [address] 14 Jan, 2013 [facility] [address] [id number] [place] [address] 12 Jan, 2013 [facility] [address] [id number] [place] [address] Jan, [facility] [address] [id number] [place] [address] 28 Dec, 2012 [facility] [address] [id number] [place] [address] 18 Dec, 2012 [facility] [address] [id number] [place] [address] 15 Dec, 2012 [facility] [address] [id number] [place] [address] 14 Dec, 2012 [facility] [address] [id number] [place] [address] 05 Dec, 2012 [facility] [address] [id number] [place] [address] 29 Nov, 2012 [facility] [address] [id number] [place] [address] Nov, [facility] [address] [id number] [place] [address] Nov, [facility] [address] [facility] [id number] [place] [address] Nov, [facility] [address] [id number] [place] [address] 31 Oct, 2012 [facility] [address] [id number] [place] [address] 31 Oct, 2012 [facility] [place] [facility] [address] [id number] [place] [address] Oct, [facility] [place] [facility] [address] [id number] [place] [address] 18 Oct, 2012 [facility] [address] [facility] [id number] [place] [address] 12 Oct, 2012 [facility] [place] [facility] [address] [id number] [place] [address] Oct, [facility] [place] [facility] [address] [id number] [place] [address] Oct, [facility] [place] [facility] [address] [id number] [place] [address] Oct, [facility] [place] [facility] [address] [id number] [place] [address] Oct, [facility] [place] [facility] [address] [id number] [place] [address] Sep, [facility] [place] [facility] [address] [id number] [place] [address] Sep, [facility] [place] [facility] [address] [id number] [place] [address] Sep, [facility] [place] [facility] [address] [id number] [place] [address] Sep, [facility] [place] [facility] [address] [id number] [place] [address] Sep, [facility] [place] [facility] [address] [id number] [place] [address] Aug, [facility] [place] [facility] [address] [id number] [place] [address] Aug, [facility] [place] [facility] [address] [id number] [place] [address] Aug, [facility] [place] [facility] [address] [id number] [place] [address] Aug, [facility] [place] [facility] [address] [id number] [place] [address] Aug, [facility] [place] [facility] [address] [id number] [place] [address] Aug, [facility] [place] [facility] [address] [id number] [place] [address] 11 Aug, 2012 [facility] [place] [facility] [address] [id number] [place] [address] 10 Aug, 2012 [facility] [place] [facility] [address] [id number] [place] [address] 10 Aug, 2012 [facility] [place] [facility] [address] [id number] [place] [address] 09 Aug, 2012 [facility] [place] [facility] [address] [id number] [place] [address] 05 Aug, 2012 [facility] [place] [facility] [address] [id number] [place] [address]- 1066 04 Aug, 2012 [facility] [place] [facility] [address] [id number] [place] [address] 17 Jul, 2012 [facility] [place] [facility] [address] [id number] [place] [address]- 2012 13 Jul, 2012 [facility] [place] [facility] [address] [id number] [place] [address] 13 Jul, 2012 [facility] [place] [facility] [address] [id number] [place] [address]- [address] 11 Jul, 2012 [facility] [place] [facility] [address] [id number] [place] [address]- 9421 10 Jul, 2012 [facility] [place] [facility] [address] [id number] [place] [address]229 08 Jul, 2012 [facility] [place] [facility] [address] [id number], [place] [address] 16 Jun, 2012 [facility] [place] [facility] [address] [id number] [place] [address]- 3566 14 Jun, 2012 [facility] [place] [facility] [address] [id number] [place] [address] 8632 17 May, 2012 [facility] [place] [facility] [address] [id number] [place] [address] 1347 17 May, 2012 [facility] [place] [facility] [address] [id number] [place] [address]- 7833 13 May, 2012 [facility] [address] [id number] [place] [address] May, [facility] [address] [id number] [place] [address]062 Apr, [facility] [address] [id number] [place] [address] 4672 Apr, [facility] [address] [id number] [place] [address]74 Apr, [facility] [address] [id number] [place] [address] 68[address] Apr, [facility] [address] [id number] [place] [address] Apr, [facility] [address] [id number] [place] [address] March, [facility] [address] [id number] [place] [address] March, [facility] [address] [id number] [place] [address] March, [facility] [address] [id number] [place] [address] 3943 March, [facility] [address] [id number] [place] [address] 4430 March, [facility] [address] [id number] [place] [address]- [address] 24 Feb, 2012 [facility] [place] [facility] [address] [id number] [place] [address]- [address] Feb, [facility] [place] [facility] [address] [id number] [place] [id number] Jan, [facility] [address] [id number] [place] [address] Jan, [facility] [place] [facility] [address] [id number] [place] [address]- 7837 Jan, [facility] [place] [facility] [address] [id number] [place] [address]- 5869 28 Dec, 2011 [facility] [place] [facility] [address] [id number] [place] [address]- 1055 Nov, [facility] [place] [facility] [address] [id number] [place] [address]- 2553 Nov, [facility] [place] [facility] [address] [id number] [place] [address] 1221 Nov, [facility] [place] [facility] [address] [id number] [place] [address]- 0186 Nov, [facility] [place] [facility] [address] [id number] [place] [address]- 6612 Oct, [facility] [place] [facility] [address] [id number] [place] [address] 2224 Oct, [facility] [place] [facility] [address] [id number] [place] [address]- 0292 Sep, [facility] [place] [facility] [address] [id number] [place] [address]- 0[address] Sep, [facility] [place] [facility] [address] [facility] [id number], [place] [address] Sep, [facility] [place] [facility] [address] [id number], [place] [address] 10 Sep, 2011 [facility] [place] [facility] [address] [id number] [place] [address]- 6905 08 Sep, 2011 [facility] [place] [facility] [address] [id number], [place] [address] 16 Jun, 2011 [facility] [place] [facility] [address] [id number], [place] [address] 15 Dec, 2010 [facility] [place] [facility] [address] [id number][place] [id number] [address] Sep, [facility] [id number], [place] [address] Aug, [facility] [id number], [place] [address] Aug, [facility] [id number], [place] [address] 74[address] Aug, [facility] [id number] [place] [id number]- 1025 Aug, [facility] [id number] [place] [address] 2759[address]- 8492 Aug, [facility] [id number] [place] [address]- 0363 Jun, [facility] [id number] [place] [address]- 8460 Feb, [facility] [id number], [place] [address] 2751 Sep, [facility] [id number] [place] [address]- [address]484 Aug, [facility] [id number], [place] [address] Apr, [facility] [id number], [place] [address] March, IMMUNIZATIONS No Known Immunizations SOCIAL HISTORY Never Assessed REASON FOR VISIT [facility] [place] PLAN OF CARE VITAL SIGNS MEDICATIONS Unknown [...]
--- OUTSIDE RECORDS SUMMARY | 2019-02-03 10:43 | XMS REPORT ---
Author Author DENZEL MENDOZA [facility] Address [address] [place] [address] Care Team Providers Care Insole Tape Stitcher Uco Name Role Phone DENZEL MENDOZA Unavailable PROBLEMS Type Condition ICD9-CM Code [id number] Code Onset Dates Condition Status SNOMED Code Problem Mixed hyperlipidemia E78.2 Active 734756007 Problem Cervical disc disorder at C5-C6 level with radiculopathy M50.122 Active 845546908 Problem Tension headache G44.209 Active 353383311 Problem Constipation K59.00 Active 41606186 Problem Venous insufficiency (chronic) (peripheral) I87.2 Active 99319397 Problem Anxiety state, unspecified F41.1 Active 519280435 Problem Retinitis pigmentosa H35.52 Active 17344132 Problem Peripheral polyneuropathy G62.9 Active 04233400 Problem Carpal tunnel syndrome of left wrist G56.02 Active 220528561426800 Problem Chest pain, unspecified type R07.9 Active 90554208 Problem Major depressive disorder, recurrent episode, moderate F33.1 Active 095382665 Problem Type 2 diabetes mellitus with hyperglycemia, without long-term current use of insulin E11.65 Active 36707992 Problem Fibromyalgia M79.7 Active 856431120 Problem Tobacco use Z72.0 Active 935785776 Problem Generalized anxiety disorder F41.1 Active 44009706 Problem Panic attacks F41.0 Active 287535405 ALLERGIES Substance Reaction Event Type Date Status Sulfamethoxazole-Trimethoprim Unknown Drug Allergy Oct, Active Codeine Sulfate Unknown Drug Allergy Oct, Active ENCOUNTERS Encounter Location Date Diagnosis [facility] [address] [id number], [place] [address] Oct, Abdominal pain R10.9 and Constipation K59.00 [facility] [address] [id number], [place] [address] Sep, Cough R05 [place] [address] [address] Sep, Type 2 diabetes mellitus with hyperglycemia, without long- term current use of insulin E11.65 ; Cough R05 ; Tobacco use Z72.0 ; Mixed hyperlipidemia E78.2 and Colon cancer screening Z12.11 [place] [address] [address] Sep, [facility] [place] [address] [address] Aug, Venous insufficiency (chronic) (peripheral) I87.2 [facility] [address] [address] Aug, Left flank pain R10.9 and Muscle pain M79.10 [place] [address] [address]- [address] Aug, [place] [address] [address]- [address] Jul, Dependent edema R60.9 and Tobacco use Z72.[address] [address] Jun, Cervical disc disorder at C5-C6 level with radiculopathy M50.122 [place] [address] [address]- [address] Jun, [place] [address] [address]66- [address] Jun, Pneumonia of right lung due to infectious organism, unspecified part of lung J18.9 [place] [address] [address]- [address] May, [place] [address] 25048- 0497 May, Cough R05 [place] [address] [address]- [address] May, [facility] [id number] [place] [address] 16592- 5730 May, COPD with exacerbation J44.1 [facility] [id number] [place] [address] 78984- 5184 May, Type 2 diabetes mellitus with hyperglycemia, without long- term current use of insulin E11.65 ; Peripheral polyneuropathy G62.9 ; Cough R05 and COPD with exacerbation J44.1 [facility] [id number] [place] [address] 15746- 1640 May, [place] [address] [address]- 3016 May, COPD with exacerbation J44.1 and Tobacco abuse counseling Z71.6 [place] [id number] [place] [address] 07775- 2405 May, [place] [id number] [place] [address] 79175- 4133 May, [facility] [id number] [place] [address]94 -5796 May, Numbness of left hand R20.0 and Carpal tunnel syndrome of left wrist G56.02 [place] [id number] [place] [address] 20208- 4761 May, [place] [id number] [place] [address] 95249- 0594 Apr, Type 2 diabetes mellitus with hyperglycemia, without long- term current use of insulin E11.65 [place] [id number] [place] [address] 96595- 3309 March, Anxiety state, unspecified F41.1 [facility] [id number] [place] [address] 24340- 7816 Feb, [facility] [id number] [place] [address] 09368- 1444 Feb, Medicare annual wellness visit, initial Z00.00 ; Type 2 diabetes mellitus with hyperglycemia, without long-term current use of insulin E11.65 ; Major depressive disorder, recurrent episode, moderate F33.1 ; Mixed hyperlipidemia E78.2 ; Fibromyalgia M79.7 ; Retinitis pigmentosa H35.52 ; Panic attacks F41.0 ; Facial skin lesion L98.9 ; Fullness of neck R22.1 and Screening for colon cancer Z12.11 [facility] [address] [address]- [address] 03 Feb, 2018 Type 2 diabetes mellitus with hyperglycemia, without long- term current use of insulin E11.65 [place] [address] 79244- 4455 Jan, [place] [address] 48285- 4761 Jan, Asymptomatic microscopic hematuria R31.21 ; Chest pain, unspecified type R07.9 and Generalized anxiety disorder F41.1 [place] [address] 21294- 2583 Jan, [facility] [address] 64714- 1602 Jan, [facility] [id number] [place] [address] 53989 -6648 Dec, [place] [id number] [place] [address] 58120- 6184 Dec, [place] [address] 40764- 9724 Dec, [facility] [address] 79910- 6597 Dec, [place] [address] 03410- 2979 14 Dec, 2017 [facility] [address] [address]61- 7936 13 Dec, 2017 Tension headache G44.209 [place] [id number] [place] [address] 99122- 7515 Dec, Elevated LFTs R79.89 ; Type 2 diabetes mellitus with hyperglycemia, without long-term current use of insulin E11.65 ; Abdominal bloating R14.0 and Other fatigue R53.83 [place] [id number] [place] [address] 84339- 3696 Dec, Elevated ALT measurement R74.0 [place] [id number] [place] [address] 19852- 9256 Nov, Type 2 diabetes mellitus with hyperglycemia, without long- term current use of insulin E11.65 and Mixed hyperlipidemia E78.2 [place] [address] 24000- 3487 Oct, [place] [address] 67581- 0354 Oct, Elevated ALT measurement R74.0 [place] [id number] [place] [address] 18862- 9465 Oct, [place] [address] 73286- 0009 Oct, [place] [id number] [place] [address] 51234- 2495 Oct, Breast cancer screening Z12.31 [place] [id number] [place] [address] 13959- 6965 Sep, Tension headache G44.209 ; Cervical disc disorder at C5-C6 level with radiculopathy M50.122 ; Other fatigue R53.83 ; Breast pain, left N64.4 ; Vertigo R42 and Abnormal tympanic membrane of left ear H73.92 [facility] [id number] [place] [address] 32179 -0399 24 Sep, 2017 Screening breast examination Z12.39 [place] [address] 34809- 2976 Sep, [facility] [id number] [place] [address] 09591- 7949 Sep, Mixed hyperlipidemia E78.2 and Type 2 diabetes mellitus with hyperglycemia, without long-term current use of insulin E11.65 [facility] [id number] [place] [address] 69963- 4474 Jul, [place] [address] 91266- 0268 Jul, Lumbago with sciatica, right side M54.41 and Other chronic pain G89.29 [place] [address] 43905- 9796 May, Type 2 diabetes mellitus with hyperglycemia, without long- term current use of insulin E11.65 ; Low back pain M54.5 ; Tobacco use Z72.0 ; Mixed hyperlipidemia E78.2 ; Lateral epicondylitis of right elbow M77.11 and 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 [place] [id number] [place] [address] 25339- 3558 Apr, [place] [id number] [place] [address] 20520- 4988 Apr, Low back pain M54.5 [facility] [id number] [place] [address] 29245- 3694 Apr, Pain in thoracic spine M54.6 [facility] [id number] [place] [address] 66447 -1525 March, Lumbosacral neuritis M54.17 [facility] [id number] [place] [address] 43809- 3917 March, Low back pain M54.5 [facility] [id number] [place] [address] 91494- 9724 March, [facility] [address] 89562- 4444 March, [place] [address], [place] [address] March, [facility] [id number] [place] [address] 20417- 3435 Feb, [facility] [address], [place] [address]- 0210 Feb, [place] [id number] [place] [address] 17677- 6158 Feb, [facility] [address] [place] [address] 24071- 4925 Feb, Low back pain M54.5 and Pain in thoracic spine M54.6 [place] [id number] [place] [address] 71894- 0943 Jan, Panic attacks F41.0 ; Type 2 diabetes mellitus with hyperglycemia, without long-term current use of insulin E11.65 and Other chest pain R07.89 [place] [id number] [place] [address] 99493- 8190 Jan, [place] [id number] [place] [address] 30703- 3439 Jan, Type 2 diabetes mellitus with hyperglycemia, without long- term current use of insulin E11.65 [place] [address] [place] [address] 29835- 2144 Jan, Pain in thoracic spine M54.6 [place] [address] [place] [address] 20338- 8193 Jan, Type 2 diabetes mellitus with hyperglycemia, without long- term current use of insulin E11.65 and Elevated liver enzymes R74.8 [place] [id number] [place] [address] 51175- 2649 Jan, [place] [address] [place] [address] 41341- 3744 Dec, Tobacco use Z72.0 ; Prediabetes R73.09 ; Elevated liver enzymes R74.8 ; Elevated fasting glucose R73.01 ; Elevated ALT measurement R74.0 ; Pain in thoracic spine M54.6 ; Panic attacks F41.0 and Type 2 diabetes mellitus with hyperglycemia, without long-term current use of insulin E11.65 [facility] [address], [place] [address] Jun, Abdominal pain, right upper quadrant R10.11 [facility] [id number] [place] [address] 94088- 6638 Jun, [place] [id number] [place] [address] 55092- 4677 Jun, [place] [id number] [place] [address] 06323- 0699 Jun, [facility] [id number] [place] [address] 75793- 0794 May, Routine gynecological examination Z01.419 ; Encounter for Papanicolaou smear for cervical cancer screening Z12.4 ; Screening breast examination Z12.39 ; Vaginal discharge N89.8 and Candidal vaginitis B37.3 [place] [id number] [place] [address] 71866- 5194 May, [place] [id number] [place] [address] 78147- 9162 May, Prediabetes R73.09 ; Elevated ALT measurement R74.0 ; Elevated fasting glucose R73.01 and Palpitations R00.2 [facility] [address] [place] [address] 20984- 5654 Feb, [place] [id number] [place] [address] 96692- 4330 Feb, [place] [id number] [place] [address] 38579- 9684 Feb, Generalized anxiety disorder F41.1 and Major depressive disorder, recurrent episode, moderate F33.1 [place] [id number] [place] [address] 22482- 0319 Feb, Generalized anxiety disorder F41.1 ; Low back pain M54.5 and Insomnia G47.00 [facility] [id number] [place] [address] 76360- 0271 04 Jan, 2016 Elevated fasting glucose R73.01 and Elevated ALT measurement R74.0 [facility] [id number] [place] [address] 64180- 5836 Jan, Generalized anxiety disorder F41.1 ; Low back pain M54.5 and Screening cholesterol level Z13.220 [facility] [address] 85170- 6800 04 Dec, 2015 Scoliosis M41.9 and Anxiety F41.9 [facility] [id number] [place] [address] 63669- 8149 Feb, [facility] [address] 21954- 0838 Feb, [facility] [id number] [place] [address] 39142- 4982 Apr, [facility] [id number] [place] [address] 12149- 0261 March, [facility] [id number] [place] [address] 35727- 4637 March, [facility] [id number] [place] [address] 33817- 9474 March, [facility] [id number] [place] [address] 90997- 8878 March, [facility] [id number] [place] [address] 12307- 0228 March, [facility] [id number] [place] [address] 65775- 3283 March, [facility] [id number] [place] [address] 18390- 5836 March, [facility] [place] [facility] [address] [id number] [place] [address]- 1316 March, [facility] [place] [facility] [address] [id number] [place] [address]- 2125 Feb, [facility] [place] [facility] [address] [id number] [place] [address]- 6947 Feb, [facility] [place] [facility] [address] [id number] [place] [address]- 5267 Feb, [facility] [place] [facility] [address] [id number] [place] [address]- 9842 Feb, [facility] [place] [facility] [address] [id number] [place] [address]- 8123 Jan, [facility] [place] [facility] [address] [id number] [place] [address]- 6037 Jan, [facility] [place] [facility] [address] [id number] [place] [address]- 2711 Jan, [facility] [place] [facility] [address] [id number] [place] [address]- 6337 Jan, [facility] [place] [facility] [address] [id number] [place] [address]- 4067 Jan, [facility] [place] [facility] [address] [id number] [place] [address]- 0999 Jan, [facility] [place] [facility] [address] [id number] [place] [address]- 7911 Jan, [facility] [place] [facility] [address] [id number] [place] [address]- 7782 Dec, [facility] [place] [facility] [address] [id number] [place] [address]- 7646 Dec, [facility] [place] [facility] [address] [id number] [place] [address]- 7281 Dec, [facility] [place] [facility] [address] [id number] [place] [address]- 7384 Dec, [facility] [place] [facility] [address] [id number] [place] [address]- 3758 Dec, [facility] [place] [facility] [address] [id number] [place] [address]- 1546 Dec, [facility] [place] [facility] [address] [id number] [place] [address]- 2780 Nov, [facility] [place] [facility] [address] [id number] [place] [address]- 6291 Nov, [facility] [place] [facility] [address] [id number] [place] [address]- 0569 Nov, [facility] [place] [facility] [address] [id number] [place] [address]- 9098 Nov, [facility] [place] [facility] [address] [id number] [place] [address]- 8337 Nov, [facility] [place] [facility] [address] [id number] [place] [address]- 8118 Nov, [facility] [place] [facility] [address] [id number] [place] [address]- 5385 Nov, [facility] [place] [facility] [address] [id number] [place] [address]- 2965 Oct, [facility] [place] [facility] [address] [id number] [place] [address]- 2313 Oct, [facility] [place] [facility] [address] [id number] [place] [address]- 5720 Oct, [facility] [place] [facility] [address] [id number] [place] [address]- 8037 Oct, [facility] [place] [facility] [address] [id number] [place] [address]- 9732 Sep, [facility] [place] [facility] [address] [id number] [place] [address]- 1026 Sep, [facility] [place] [facility] [address] [id number] [place] [address]- 5409 Sep, [facility] [place] [facility] [address] [id number] [place] [address]- 9629 Sep, [facility] [place] [facility] [address] [id number] [place] [address] 2547 Sep, [facility] [place] [facility] [address] [id number] [place] [address]- 6784 Sep, [facility] [place] [facility] [address] [id number] [place] [address]- 4027 Aug, [facility] [place] [facility] [address] [id number] [place] [address]- 9069 Aug, [facility] [place] [facility] [address] [id number] [place] [address]- 5113 Aug, [facility] [place] [facility] [address] [id number], [place] [address]- 2643 Aug, [facility] [place] [facility] [address] [id number] [place] [address]- 4172 Aug, [facility] [place] [facility] [address] [id number], [place] [address]- 3708 Aug, [facility] [place] [facility] [address] [id number], [place] [address] 2540 Aug, [facility] [place] [facility] [address] [id number], [place] [address]- 3370 Jul, [facility] [place] [facility] [address] [id number] [place] [address] 2549 Jul, [facility] [place] [facility] [address] [id number], [place] [address]- 2546 Jun, [facility] [place] [facility] [address] [id number], [place] [address]- 2548 May, [facility] [place] [facility] [address] [id number] [place] [address]- 9939 11 May, 2013 [facility] [address] [id number] [place] [address]- 8011 10 May, 2013 [facility] [address] [id number] [place] [address]- 6566 Apr, [facility] [address] [id number] [place] [address]- 1000 Apr, [facility] [address] [id number] [place] [address]- 1273 Apr, [facility] [address] [id number] [place] [address]- 8483 March, [facility] [address] [id number] [place] [address]- 3030 March, [facility] [address] [id number] [place] [address]- 3095 March, [facility] [address] [id number] [place] [address]- 4784 Feb, [facility] [address] [id number] [place] [address]- 6235 22 Feb, 2013 [facility] [address] [id number] [place] [address]- 5073 15 Feb, 2013 [facility] [address] [id number] [place] [address]- 0367 28 Jan, 2013 [facility] [place] [facility] [address] [id number] [place] [address]- 9324 19 Jan, 2013 [facility] [place] [facility] [address] [id number] [place] [address]- 9542 18 Jan, 2013 [facility] [place] [facility] [address] [id number] [place] [address] 4994 15 Jan, 2013 [facility] [address] [id number] [place] [address]- 4496 14 Jan, 2013 [facility] [place] [facility] [address] [id number] [place] [address]- 5614 12 Jan, 2013 [facility] [place] [facility] [address] [id number] [place] [address]- 8423 05 Jan, 2013 [facility] [place] [facility] [address] [id number] [place] [address]- 5590 28 Dec, 2012 [facility] [place] [facility] [address] [id number] [place] [address]- 0982 18 Dec, 2012 [facility] [place] [facility] [address] [id number] [place] [address]- 4882 15 Dec, 2012 [facility] [place] [facility] [address] [id number] [place] [address]- 7583 14 Dec, 2012 [facility] [place] [facility] [address] [id number] [place] [address]- 4003 05 Dec, 2012 [facility] [place] [facility] [address] [id number] [place] [address]- 7004 29 Nov, 2012 [facility] [place] [facility] [address] [id number] [place] [address]- 3790 Nov, [facility] [address] [id number] [place] [address]- 8854 Nov, [facility] [place] [facility] [address] [id number] [place] [address] Nov, [facility] [place] [facility] [address] [id number] [place] [address] Oct, [facility] [place] [facility] [address] [id number] [place] [address] Oct, [facility] [place] [facility] [address] [id number] [place] [address] Oct, [facility] [place] [facility] [address] [id number] [place] [address] Oct, [facility] [place] [facility] [address] [id number] [place] [address] Oct, [facility] [place] [facility] [address] [id number] [place] [address]- 2019 12 Oct, 2012 [facility] [place] [facility] [address] [id number] [place] [address] Oct, [facility] [place] [facility] [address] [id number] [place] [address] Oct, [facility] [place] [facility] [address] [id number] [place] [address] Oct, [facility] [place] [facility] [address] [id number] [place] [address] Sep, [facility] [place] [facility] [address] [id number] [place] [address] Sep, [facility] [place] [facility] [address] [id number] [place] [address] Sep, [facility] [place] [facility] [address] [id number] [place] [address] Sep, [facility] [place] [facility] [address] [id number] [place] [address] Sep, [facility] [place] [facility] [address] [facility] [id number] [place] [address] Aug, [facility] [place] [facility] [address] [id number] [place] [address] Aug, [facility] [place] [facility] [address] [id number] [address] Aug, [facility] [place] [facility] [address] [id number], [place] [address] Aug, [facility] [place] [facility] [address] [facility] [id number] [address] 16 Aug, 2012 [facility] [place] [facility] [address] [facility] [id number], [place] [address] Aug, [facility] [place] [facility] [address] [id number] [place] [address]- [address] 11 Aug, 2012 [facility] [place] [facility] [address] [id number] [place] [address]- [address] 10 Aug, 2012 [facility] [place] [facility] [address] [id number] [place] [address] 10 Aug, 2012 [facility] [place] [facility] [address] [id number] [place] [address]- [address] 09 Aug, 2012 [facility] [place] [facility] [address] [id number] [place] [address] 05 Aug, 2012 [facility] [place] [facility] [address] [id number] [place] [address]- [address] 04 Aug, 2012 [facility] [place] [facility] [address] [id number] [place] [address] 17 Jul, 2012 [facility] [place] [facility] [address] [id number] [place] [address] 13 Jul, 2012 [facility] [place] [facility] [address] [id number] [place] [address] 13 Jul, 2012 [facility] [place] [facility] [address] [id number] [place] [address] 11 Jul, 2012 [facility] [place] [facility] [address] [id number] [place] [address] 10 Jul, 2012 [facility] [place] [facility] [address] [id number] [place] [address]- [address] 08 Jul, 2012 [facility] [place] [facility] [address] [id number] [place] [address] 16 Jun, 2012 [facility] [place] [facility] [address] [id number] [place] [address] 14 Jun, 2012 [facility] [place] [facility] [address] [id number] [place] [address] 17 May, 2012 [facility] [place] [facility] [address] [id number] [place] [address] 17 May, 2012 [facility] [place] [facility] [address] [id number] [place] [address] 13 May, 2012 [facility] [place] [facility] [address] [id number] [place] [address] May, [facility] [place] [facility] [address] [id number] [place] [address] Apr, [facility] [place] [facility] [address] [id number] [place] [address] Apr, [facility] [place] [facility] [address] [id number] [place] [address] Apr, [facility] [place] [facility] [address] [id number] [place] [address] Apr, [facility] [place] [facility] [address] [id number] [place] [address] Apr, [facility] [place] [facility] [address] [id number] [place] [address] March, [facility] [place] [facility] [address] [id number] [place] [address] March, [facility] [place] [facility] [address] [id number] [place] [address] March, [facility] [place] [facility] [address] [id number] [place] [address] March, [facility] [place] [facility] [address] [id number], [place] [address] March, [facility] [place] [facility] [address] [id number] [place] [address] 24 Feb, 2012 [facility] [place] [facility] [address] [id number] [place] [address] Feb, [facility] [place] [facility] [address] [id number] [place] [address] Jan, [facility] [place] [facility] [address] [id number] [place] [address] Jan, [facility] [address] [id number] [place] [address] Jan, [facility] [place] [facility] [address] [id number] [place] [address] 28 Dec, 2011 [facility] [address] [id number] [place] [address] 31 Nov, 2011 [facility] [place] [facility] [address] [id number] [place] [address] 27 Nov, 2011 [facility] [address] [id number] [place] [address] Nov, [facility] [address] [id number] [place] [address] Nov, [facility] [address] [id number] [place] [address] Oct, [facility] [address] [id number] [place] [address] Oct, [facility] [address] [id number] [place] [address] Sep, [facility] [address] [facility] [id number] [place] [address] 18 Sep, 2011 [facility] [place] [facility] [address] [id number] [place] [address] Sep, [facility] [place] [facility] [address] [id number] [place] [address] 10 Sep, 2011 [facility] [place] [facility] [address] [id number] [place] [address] 08 Sep, 2011 [facility] [place] [facility] [address] [id number] [place] [address] 16 Jun, 2011 [facility] [place] [facility] [address] [id number] [place] [address] 15 Dec, 2010 [facility] [address] [id number] [address] Sep, [facility] [address], [place] [address] Aug, [facility] [id number], [place] [address] Aug, [facility] [address], [place] [address] 25[address] Aug, [facility] [address], [place] [address] Aug, [facility] [address], [place] [address] Aug, [facility] [address], [place] [address] Jun, [facility] [address], [place] [address] 25[address] Feb, [facility] [address], [place] [address] Sep, [facility] [address], [place] [address] Aug, [facility] [address], [place] [address] 25[address] Apr, [facility] [address], [place] [address] March, IMMUNIZATIONS No Known Immunizations SOCIAL HISTORY Never Assessed REASON FOR VISIT Stomach pain; high blood sugar, pt has DM II; feels like her medication is not working - STEVE Lux, pt feels that recent treatment for pneumonia is messing with her sugars PLAN OF CARE Activity Details Follow Up if not improving with PCP or reg follow up Reason: VITAL SIGNS Height 61 in 2018-10-14 Weight 166.6 lbs 2018-10-14 Temperature 97.6 degrees Fahrenheit 2018-10-14 Heart Rate 100 bpm 2018-10-14 Respiratory Rate 16 2018-10-14 BMI 31.48 kg/m2 2018-10-14 Blood pressure systolic 130 mmHg 2018-10-14 Blood pressure diastolic 90 mmHg 2018-10-14 MEDICATIONS Medication Instructions Dosage Frequency Start Date End Date Duration Status Cyclobenzaprine HCl 10 mg Orally Three times a day 1 tablet as needed 8h 30 Active Albuterol Sulfate (2.5 MG/3ML) 0.083% Inhalation every 6 hrs for COPD exacerbation 3 ml as needed May, Active Nebulizer/Tubing/Mouthpiece - Use as directed with Albuterol Sulfate Inhalation solution May, lifetime Active Rosuvastatin Calcium 20 mg Orally Once a day 1 tablet 24h 90 days Active Polyethylene Glycol 3350 - Orally Once a day 1 cap full mixed with 8 ounces of water. 24h Oct, 30 day(s) Active Blood Glucose Monitor System w/Device ICD10- E11.65 2 times a day -3 times weekly. as directed Jan, Active Blood Glucose Test - and Lancets ICD10- E11.65 2 times a day- 3 times weekly as directed Jan, Active Magnesium 100 MG Orally Once a day 4 tablets with a meal 24h 30 day(s ) Active Metoprolol Succinate ER 50 MG Orally Once a day 1 tablet 24h Active Potassium 75 MG Orally Once a day 1 tablet 24h 30 day(s) Not-Taking Metformin HCl 500 MG Orally Twice a day 1 tablet with a meal 12h 90 days Active RESULTS No Results PROCEDURES No [...]
--- OUTSIDE RECORDS SUMMARY | 2019-02-03 10:44 | XMS REPORT ---
Author Author ASHOK ROMY [facility] Address [address] [place] [address] Care Team Providers Care Editorial Manager Name Role Phone FRANC PULIDOY Unavailable PROBLEMS Type Condition ICD9-CM Code YWT32-XT Code Onset Dates Condition Status SNOMED Code Problem Panic attacks F41.0 Active 987388077 Problem Tension headache G44.209 Active 987301291 Problem Mixed hyperlipidemia E78.2 Active 068805454 Problem Venous insufficiency (chronic) (peripheral) I87.2 Active 60389531 Problem Peripheral polyneuropathy G62.9 Active 74938971 Problem Retinitis pigmentosa H35.52 Active 56717271 Problem Cervical disc disorder at C5-C6 level with radiculopathy M50.122 Active 518994084 Problem Carpal tunnel syndrome of left wrist G56.02 Active [id number] Problem Anxiety state, unspecified F41.1 Active 161226241 Problem Generalized anxiety disorder F41.1 Active 37689874 Problem Major depressive disorder, recurrent episode, moderate F33.1 Active 007739967 Problem Chest pain, unspecified type R07.9 Active 39892928 Problem Type 2 diabetes mellitus with hyperglycemia, without long-term current use of insulin E11.65 Active 47808051 Problem Fibromyalgia M79.7 Active 053248522 Problem Tobacco use Z72.0 Active 566809348 ALLERGIES No Information ENCOUNTERS Encounter Location Date Diagnosis [facility] [id number] [address] Sep, [address] [address] Sep, Type 2 diabetes mellitus with hyperglycemia, without long- term current use of insulin E11.65 ; Cough R05 ; Tobacco use Z72.0 ; Mixed hyperlipidemia E78.2 and Colon cancer screening Z12.11 [id number] [place] [address] 72959- 0044 Sep, [facility] [address] [address]50 Aug, Venous insufficiency (chronic) (peripheral) I87.2 [facility] [id number] [place] [address] 23496 -3728 Aug, Left flank pain R10.9 and Muscle pain M79.10 [address] [address] 5[address]18- 4535 Aug, [address] [address] [address] 67354- 0110 Jul, Dependent edema R60.9 and Tobacco use Z72.0 [address] [address] 80159- 5792 Jun, Cervical disc disorder at C5-C6 level with radiculopathy M50.122 [address] [address] 12450- 8418 Jun, [address] [address] [address]293- [address]199 Jun, Pneumonia of right lung due to infectious organism, unspecified part of lung J18.9 [address] [place] [id number] [place] [address] 45158- 0988 May, [address] [place] [address] 40319- 3254 May, Cough R05 [place] [id number] [place] [address] 40551- 6287 May, [address] [place] [address] 75350- 9836 May, COPD with exacerbation J44.1 [address] [id number] [place] [address] 21295- 1053 May, Type 2 diabetes mellitus with hyperglycemia, without long- term current use of insulin E11.65 ; Peripheral polyneuropathy G62.9 ; Cough R05 and COPD with exacerbation J44.1 [address] [place] [id number] [place] [address] 04900- 1526 May, [place] [id number] [place] [address] 42672- 7956 May, COPD with exacerbation J44.1 and Tobacco abuse counseling Z71.6 [place] [id number] [place] [address] 24994- 2586 May, [place] [id number] [place] [address] 80645- 7704 May, [facility] [id number] [place] [address] 93343 -3431 May, Numbness of left hand R20.0 and Carpal tunnel syndrome of left wrist G56.02 [place] [id number] [place] [address] 37430- 1076 May, [place] [id number] [place] [address] 95575- 0324 Apr, Type 2 diabetes mellitus with hyperglycemia, without long- term current use of insulin E11.65 [address] [id number] [place] [address] 83392- 3979 March, Anxiety state, unspecified F41.1 [place] [id number] [place] [address] 50941- 8022 Feb, [place] [id number] [place] [address] 81182- 0150 Feb, Medicare annual wellness visit, initial Z00.00 ; Type 2 diabetes mellitus with hyperglycemia, without long-term current use of insulin E11.65 ; Major depressive disorder, recurrent episode, moderate F33.1 ; Mixed hyperlipidemia E78.2 ; Fibromyalgia M79.7 ; Retinitis pigmentosa H35.52 ; Panic attacks F41.0 ; Facial skin lesion L98.9 ; Fullness of neck R22.1 and Screening for colon cancer Z12.11 [facility] [id number] [place] [address] 62478- 8992 Feb, Type 2 diabetes mellitus with hyperglycemia, without long- term current use of insulin E11.65 [place] [id number] [place] [address] 00643- 7937 Jan, [place] [id number]- 1467 Jan, Asymptomatic microscopic hematuria R31.21 ; Chest pain, unspecified type R07.9 and Generalized anxiety disorder F41.1 [address] [place] [address] 38097- 1526 Jan, [place] [id number] [place] [address] 25549- 4811 Jan, [facility] [address] 28513 -2554 Dec, [facility] [id number] [place] [address] 23290- 8182 Dec, [place] [id number] [place] [address] 99293- 2810 Dec, [place] [id number] [place] [address] 12183- 0433 Dec, [place] [id number] [place] [address] 61405- 7321 Dec, [facility] [id number] [place] [address] 01965- 2393 13 Dec, 2017 Tension headache G44.209 [place] [id number] [place] [address] 10329- 4047 09 Dec, 2017 Elevated LFTs R79.89 ; Type 2 diabetes mellitus with hyperglycemia, without long-term current use of insulin E11.65 ; Abdominal bloating R14.0 and Other fatigue R53.83 [place] [id number] [place] [address] 40399- 8359 08 Dec, 2017 Elevated ALT measurement R74.0 [place] [address] 45801- 8205 Nov, Type 2 diabetes mellitus with hyperglycemia, without long- term current use of insulin E11.65 and Mixed hyperlipidemia E78.2 [address] [address] 15775- 2944 Oct, [place] [address] 31215- 4598 Oct, Elevated ALT measurement R74.0 [address] [address] 97100- 7167 Oct, [place] [address] 75762- 1796 Oct, [place] [address] 26443- 7923 Oct, Breast cancer screening Z12.31 [place] [address] 89952- 7476 Sep, Tension headache G44.209 ; Cervical disc disorder at C5-C6 level with radiculopathy M50.122 ; Other fatigue R53.83 ; Breast pain, left N64.4 ; Vertigo R42 and Abnormal tympanic membrane of left ear H73.92 [facility] [id number] [place] [address] 91170 -2341 Sep, Screening breast examination Z12.39 [place] [id number] [place] [address] 07673- 7354 Sep, [place] [address] 93706- 2230 Sep, Mixed hyperlipidemia E78.2 and Type 2 diabetes mellitus with hyperglycemia, without long-term current use of insulin E11.65 [place] [id number] [place] [address] 92005- 6222 07 Jul, 2017 [facility] [id number] [place] [address] 40814- 5313 Jul, Lumbago with sciatica, right side M54.41 and Other chronic pain G89.29 [facility] [id number] [place] [address] 22382- 0102 May, Type 2 diabetes mellitus with hyperglycemia, without long- term current use of insulin E11.65 ; Low back pain M54.5 ; Tobacco use Z72.0 ; Mixed hyperlipidemia E78.2 ; Lateral epicondylitis of right elbow M77.11 and 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 [facility] [id number] [place] [address] 61788- 2265 Apr, [facility] [id number] [place] [address] 79974- 0972 Apr, Low back pain M54.5 [facility] [id number] [place] [address] 09854- 8448 Apr, Pain in thoracic spine M54.6 [facility] [id number] [place] [address] 86695 -9497 March, Lumbosacral neuritis M54.17 [facility] [id number] [place] [address] 95877- 8757 March, Low back pain M54.5 [facility] [id number] [place] [address] 64951- 9390 March, [facility] [id number] [place] [address] 25725- 3385 March, [facility] [id number] [place] [address] 56659- 6868 March, [facility] [id number] [place] [address] 19662- 6316 Feb, [facility] [id number] [place] [address] 10073- 2219 Feb, [place] [id number] [place] [address] 07964- 6283 Feb, [address] [address] 26292- 3180 Feb, Low back pain M54.5 and Pain in thoracic spine M54.6 [address] [address] 88465- 6595 Jan, Panic attacks F41.0 ; Type 2 diabetes mellitus with hyperglycemia, without long-term current use of insulin E11.65 and Other chest pain R07.89 [place] [id number] [place] [address] 53253- 2046 Jan, [address] [address] 82000- 8352 Jan, Type 2 diabetes mellitus with hyperglycemia, without long- term current use of insulin E11.65 [place] [id number] [place] [address] 96835- 1775 Jan, Pain in thoracic spine M54.6 [id number] [place] [address] 83778- 7500 Jan, Type 2 diabetes mellitus with hyperglycemia, without long- term current use of insulin E11.65 and Elevated liver enzymes R74.8 [id number] [place] [address] 63779- 5985 Jan, [address] [place] [id number] [place] [address] 33687- 5499 Dec, Tobacco use Z72.0 ; Prediabetes R73.09 ; Elevated liver enzymes R74.8 ; Elevated fasting glucose R73.01 ; Elevated ALT measurement R74.0 ; Pain in thoracic spine M54.6 ; Panic attacks F41.0 and Type 2 diabetes mellitus with hyperglycemia, without long-term current use of insulin E11.65 [facility] [id number] [place] [address] 85127 -0303 Jun, Abdominal pain, right upper quadrant R10.11 [address] [id number] [place] [address] 52147- 2177 Jun, [place] [id number] [place] [address] 43078- 0204 Jun, [address] [place] [id number] [place] [address] 35895- 1739 Jun, [address] [id number] [place] [address] 26988- 8680 May, Routine gynecological examination Z01.419 ; Encounter for Papanicolaou smear for cervical cancer screening Z12.4 ; Screening breast examination Z12.39 ; Vaginal discharge N89.8 and Candidal vaginitis B37.3 [address] [id number] [place] [address] 00585- 7957 May, [place] [id number] [place] [address] 30953- 6253 May, Prediabetes R73.09 ; Elevated ALT measurement R74.0 ; Elevated fasting glucose R73.01 and Palpitations R00.2 [address] [place] [id number] [place] [address] 47500- 4850 Feb, [address] [place] [address] 20088- 5331 Feb, [address] [id number] [place] [address] 06429- 2951 Feb, Generalized anxiety disorder F41.1 and Major depressive disorder, recurrent episode, moderate F33.1 [id number] [place] [address] 15816- 3628 Feb, Generalized anxiety disorder F41.1 ; Low back pain M54.5 and Insomnia G47.00 [address] [place] [address] 90500- 9575 Jan, Elevated fasting glucose R73.01 and Elevated ALT measurement R74.0 [facility] [address], [place] [address]- 3089 Jan, Generalized anxiety disorder F41.1 ; Low back pain M54.5 and Screening cholesterol level Z13.220 [facility] [address], [place] [address]- 4326 04 Dec, 2015 Scoliosis M41.9 and Anxiety F41.9 [facility] [id number] [place] [address] 79161- 5852 14 Feb, 2015 [facility] [address] [address]- 6151 Feb, [facility] [id number] [place] [address] 32332- 6343 Apr, [facility] [address], [place] [address]- 5767 March, [facility] [address], [place] [address]- 8543 March, [facility] [address], [place] [address]- 6941 March, [facility] [address], [place] [address]- 3896 March, [facility] [address], [place] [address]- 3840 March, [facility] [address], [place] [address]- 8823 March, [facility] [address], [place] [address]- 9932 March, [facility] [address], [place] [address]- 4995 March, [facility] [address], [place] [address]- 1246 Feb, [facility] [address] [place] [address]- 9824 Feb, [facility] [address] [id number] [place] [address]- 8202 Feb, [facility] [place] [facility] [address] [id number] [place] [address]- 2426 Feb, [facility] [place] [facility] [address] [id number] [place] [address]- 4122 Jan, [facility] [place] [facility] [address] [id number] [place] [address]- 5840 Jan, [facility] [place] [facility] [address] [id number] [place] [address]- 9687 Jan, [facility] [place] [facility] [address] [id number] [place] [address]- 5645 Jan, [facility] [place] [facility] [address] [id number] [place] [address]- 7671 Jan, [facility] [place] [facility] [address] [id number] [place] [address]- 7211 24 Jan, 2014 [facility] [place] [facility] [address] [id number] [place] [address]- 6682 Jan, [facility] [place] [facility] [address] [id number] [place] [address]- 7470 Dec, [facility] [place] [facility] [address] [id number] [place] [address]- 9357 Dec, [facility] [place] [facility] [address] [id number] [place] [address]- 1265 Dec, [facility] [place] [facility] [address] [id number] [place] [address]- 9643 Dec, [facility] [place] [facility] [address] [id number] [place] [address]- 2952 18 Dec, 2013 [facility] [place] [facility] [address] [id number] [place] [address]- 3686 Dec, [facility] [place] [facility] [address] [id number] [place] [address]- 8395 Nov, [facility] [place] [facility] [address] [id number] [place] [address]- 8678 Nov, [facility] [place] [facility] [address] [facility] [id number] [place] [address]- 9692 Nov, [facility] [place] [facility] [address] [id number] [place] [address]- 2578 Nov, [facility] [place] [facility] [address] [id number] [place] [address]- 6454 Nov, [facility] [place] [facility] [address] [id number] [place] [address]- 6238 Nov, [facility] [place] [facility] [address] [facility] [id number] [place] [address]- 9105 Nov, [facility] [place] [facility] [address] [id number] [place] [address]- 0485 Oct, [facility] [place] [facility] [address] [id number] [place] [address]- 2749 Oct, [facility] [place] [facility] [address] [id number] [place] [address]- 8389 Oct, [facility] [place] [facility] [address] [id number] [address]- 5887 Oct, [facility] [place] [facility] [address] [id number] [address]- 5493 Sep, [facility] [place] [facility] [address] [id number] [place] [address]- 5788 Sep, [facility] [place] [facility] [address] [id number] [address]- 5174 Sep, [facility] [place] [facility] [address] [id number] [place] [address]- 7797 Sep, [facility] [place] [facility] [address] [id number] [place] [address] 2546 Sep, [facility] [place] [facility] [address] [id number] [place] [address] 2546 Sep, [facility] [place] [facility] [address] [id number] [place] [address]- 7866 Aug, [facility] [place] [facility] [address] [id number] [place] [address]- 3586 Aug, [facility] [place] [facility] [address] [id number] [place] [address] 2545 Aug, [facility] [place] [facility] [address] [id number] [place] [address]- 2108 Aug, [facility] [place] [facility] [address] [id number] [place] [address]- 2547 Aug, [facility] [place] [facility] [address] [id number] [place] [address]- 5661 Aug, [facility] [place] [facility] [address] [id number] [place] [address]- 5826 Aug, [facility] [place] [facility] [address] [id number] [place] [address]- 4783 Jul, [facility] [place] [facility] [address] [id number] [place] [address]- 9729 Jul, [facility] [place] [facility] [address] [id number] [place] [address] 2541 Jun, [facility] [place] [facility] [address] [id number] [place] [address]- 2542 May, [facility] [place] [facility] [address] [id number] [place] [address] 2541 May, [facility] [place] [facility] [address] [id number] [place] [address]- 2546 May, [facility] [place] [facility] [address] [id number] [place] [address]- 0957 Apr, [facility] [place] [facility] [address] [id number] [place] [address]- 5281 Apr, [facility] [address] [id number] [place] [address]- 1197 Apr, [facility] [address] [id number] [place] [address]- 1177 March, [facility] [address] [id number] [place] [address]- 7178 March, [facility] [address] [id number] [place] [address]- 7460 March, [facility] [address] [id number] [place] [address]- 3965 Feb, [facility] [address] [id number] [place] [address]- 2243 Feb, [facility] [address] [id number] [place] [address]- 8707 15 Feb, 2013 [facility] [address] [id number] [place] [address]- 7239 28 Jan, 2013 [facility] [address] [id number] [place] [address]- 0544 19 Jan, 2013 [facility] [address] [id number] [place] [address]- 4303 18 Jan, 2013 [facility] [address] [id number] [place] [address]- 2260 15 Jan, 2013 [facility] [address] [id number] [place] [address]- 0949 14 Jan, 2013 [facility] [place] [facility] [address] [id number] [place] [address]- 0400 12 Jan, 2013 [facility] [address] [id number] [place] [address]- 1903 05 Jan, 2013 [facility] [address] [id number] [place] [address]- 5477 28 Dec, 2012 [facility] [address] [id number] [place] [address]- 1946 18 Dec, 2012 [facility] [address] [id number] [place] [address] 15 Dec, 2012 [facility] [address] [id number] [place] [address] 14 Dec, 2012 [facility] [address] [id number] [place] [address] 05 Dec, 2012 [facility] [address] [id number] [place] [address] 29 Nov, 2012 [facility] [address] [id number] [place] [address] 17 Nov, 2012 [facility] [address] [id number] [place] [address] Nov, [facility] [address] [id number] [place] [address] Nov, [facility] [address] [id number] [place] [address] 31 Oct, 2012 [facility] [address] [facility] [id number] [place] [address] 31 Oct, 2012 [facility] [address] [id number] [place] [address] 18 Oct, 2012 [facility] [place] [facility] [address] [id number] [place] [address] 18 Oct, 2012 [facility] [place] [facility] [address] [id number] [place] [address] 12 Oct, 2012 [facility] [place] [facility] [address] [id number] [place] [address] 12 Oct, 2012 [facility] [address] [id number] [place] [address] 10 Oct, 2012 [facility] [place] [facility] [address] [id number] [place] [address] Oct, [facility] [place] [facility] [address] [id number] [place] [address] Oct, [facility] [place] [facility] [address] [id number] [place] [address] Sep, [facility] [place] [facility] [address] [id number] [place] [address] Sep, [facility] [place] [facility] [address] [id number] [place] [address] Sep, [facility] [place] [facility] [address] [id number] [place] [address] Sep, [facility] [place] [facility] [address] [id number] [place] [address] Sep, [facility] [place] [facility] [address] [id number] [place] [address] Aug, [facility] [place] [facility] [address] [id number] [place] [address] Aug, [facility] [place] [facility] [address] [id number] [place] [address] Aug, [facility] [place] [facility] [address] [id number] [place] [address] Aug, [facility] [place] [facility] [address] [id number] [place] [address] Aug, [facility] [place] [facility] [address] [id number] [place] [address] Aug, [facility] [place] [facility] [address] [id number] [place] [address]- [address] Aug, [facility] [place] [facility] [address] [id number] [place] [address] Aug, [facility] [place] [facility] [address] [id number] [place] [address] 10 Aug, 2012 [facility] [place] [facility] [address] [id number] [place] [address] 09 Aug, 2012 [facility] [place] [facility] [address] [id number] [place] [address]- [address] 05 Aug, 2012 [facility] [place] [facility] [address] [address] [id number] [place] [address] 04 Aug, 2012 [facility] [place] [facility] [address] [id number] [place] [address] 17 Jul, 2012 [facility] [place] [facility] [address] [id number] [place] [address] 13 Jul, 2012 [facility] [place] [facility] [address] [id number] [place] [address] 13 Jul, 2012 [facility] [place] [facility] [address] [id number] [place] [address] 11 Jul, 2012 [facility] [place] [facility] [address] [id number] [place] [address] 10 Jul, 2012 [facility] [place] [facility] [address] [id number] [place] [address] 08 Jul, 2012 [facility] [place] [facility] [address] [id number] [place] [address] 16 Jun, 2012 [facility] [place] [facility] [address] [id number] [place] [address] 14 Jun, 2012 [facility] [place] [facility] [address] [id number], [place] [address] 17 May, 2012 [facility] [place] [facility] [address] [id number] [place] [address] May, [facility] [place] [facility] [address] [id number] [place] [address] May, [facility] [place] [facility] [address] [id number] [place] [address] May, [facility] [place] [facility] [address] [id number] [place] [address] Apr, [facility] [address] [id number] [place] [address] Apr, [facility] [address] [id number] [place] [address] 18 Apr, 2012 [facility] [address] [id number] [place] [address] Apr, [facility] [address] [id number] [place] [address] Apr, [facility] [address] [id number] [place] [address] March, [facility] [address] [id number] [place] [address] March, [facility] [address] [id number] [place] [address] 69[address] March, [facility] [address] [id number] [place] [address] March, [facility] [address] [id number] [place] [address] March, [facility] [address] [id number] [place] [address] 24 Feb, 2012 [facility] [place] [facility] [address] [id number] [place] [address] Feb, [facility] [address] [id number] [place] [address] Jan, [facility] [place] [facility] [address] [id number] [place] [address] Jan, [facility] [place] [facility] [address] [id number] [place] [address] Jan, [facility] [address] [id number] [place] [address] 28 Dec, 2011 [facility] [place] [facility] [address] [id number] [place] [address] 31 Nov, 2011 [facility] [place] [facility] [address] [id number] [place] [address] 27 Nov, 2011 [facility] [place] [facility] [address] [id number] [place] [address]907 13 Nov, 2011 [facility] [place] [facility] [address] [id number] [place] [address]- 5346 Nov, [facility] [place] [facility] [address] [id number] [place] [address]157 Oct, [facility] [place] [facility] [address] [id number] [place] [address]268 Oct, [facility] [place] [facility] [address] [id number] [place] [address] Sep, [facility] [place] [facility] [address] [id number], [place] [address] 18 Sep, 2011 [facility] [place] [facility] [address] [id number] [place] [address] Sep, [facility] [place] [facility] [address] [facility] [id number], [place] [address] Sep, [facility] [place] [facility] [address] [facility] [id number], [place] [address] Sep, [facility] [place] [facility] [address] [id number], [place] [address] 16 Jun, 2011 [facility] [place] [facility] [address] [id number] [place] [address] 15 Dec, 2010 [facility] [place] [facility] [address] [id number], [place] [address] Sep, [facility] [place] [facility] [address] [id number], [place] [address] 29 Aug, 2010 [facility] [place] [facility] [address] [id number], [place] [address] Aug, [facility] [id number], [place] [address] Aug, [facility] [id number], [place] [address] Aug, [facility] [id number], [place] [address] Aug, [facility] [id number] [place] [address] Jun, [facility] [id number] [place] [address]- [address] Feb, [facility] [id number] [place] [address]- [address] Sep, [facility] [id number] [place] [address]- [address] Aug, [facility] [id number], [place] [address] Apr, [facility] [id number], [place] [address] March, IMMUNIZATIONS No Known Immunizations SOCIAL HISTORY Never Assessed REASON FOR VISIT Med per DI result PLAN OF CARE VITAL SIGNS MEDICATIONS Medication Instructions Dosage Frequency Start Date End Date Duration Status Doxycycline Hyclate 100 MG Orally 2 times a day 1 capsule 12h Sep, Sep, 07 days Active RESULTS No Results PROCEDURES No [...]
--- OUTSIDE RECORDS SUMMARY | 2019-02-03 10:44 | XMS REPORT ---
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 Name Role Phone ROMY PULIDO Unavailable PROBLEMS Type Condition ICD9-CM Code QYA59-II Code Onset Dates Condition Status SNOMED Code Problem Panic attacks F41.0 Active 402538271 Problem Tension headache G44.209 Active 770122071 Problem Mixed hyperlipidemia E78.2 Active 352349414 Problem Venous insufficiency (chronic) (peripheral) I87.2 Active 69760065 Problem Peripheral polyneuropathy G62.9 Active 78901843 Problem Retinitis pigmentosa H35.52 Active 26231826 Problem Cervical disc disorder at C5-C6 level with radiculopathy M50.122 Active 721722397 Problem Carpal tunnel syndrome of left wrist G56.02 Active 136338075805088 Problem Anxiety state, unspecified F41.1 Active 245220913 Problem Generalized anxiety disorder F41.1 Active 14630705 Problem Major depressive disorder, recurrent episode, moderate F33.1 Active 099050741 Problem Chest pain, unspecified type R07.9 Active 97151417 Problem Type 2 diabetes mellitus with hyperglycemia, without long-term current use of insulin E11.65 Active 25696842 Problem Fibromyalgia M79.7 Active 844285440 Problem Tobacco use Z72.0 Active 410621764 ALLERGIES Substance Reaction Event Type Date Status Sulfamethoxazole-Trimethoprim Unknown Drug Allergy Sep, Active Codeine Sulfate Unknown Drug Allergy Sep, Active ENCOUNTERS Encounter Location Date Diagnosis [facility], [place] [address] [facility] [id number] [address] Sep, Cough R05 [facility] [place] [address] [id number] [address] Sep, Type 2 diabetes mellitus with hyperglycemia, without long- term current use of insulin E11.65 ; Cough R05 ; Tobacco use Z72.0 ; Mixed hyperlipidemia E78.2 and Colon cancer screening Z12.11 [facility], [place] [address] [address] Sep, [facility] [address] [address] Aug, Venous insufficiency (chronic) (peripheral) I87.2 [facility] [address] [address] Aug, Left flank pain R10.9 and Muscle pain M79.10 [place] [address] [address] Aug, [place] [address] [address]- [address] Jul, Dependent edema R60.9 and Tobacco use Z72.0 [place] [address] [address]- 3[address] Jun, Cervical disc disorder at C5-C6 level with radiculopathy M50.122 [place] [address] 16[address]- 40[address] Jun, [place] [address] [address] Jun, Pneumonia of right lung due to infectious organism, unspecified part of lung J18.9 [place] [address] [address]- 4[address] May, [place] [address] [address]59- 3435 May, Cough R05 [place] [address] [address]64- 2[address] May, [place] [address] [address]- 27[address] May, COPD with exacerbation J44.1 [place] [address] [place] [address] May, Type 2 diabetes mellitus with hyperglycemia, without long- term current use of insulin E11.65 ; Peripheral polyneuropathy G62.9 ; Cough R05 and COPD with exacerbation J44.1 [place] [id number] [place] [address] 14402- 0815 May, [facility] [id number] [place] [address] 75942- 2553 May, COPD with exacerbation J44.1 and Tobacco abuse counseling Z71.6 [place] [id number] [place] [address] 12019- 3381 May, [place] [id number] [place] [address] 57250- 7823 May, [facility] [id number] [place] [address] 16308 -7105 May, Numbness of left hand R20.0 and Carpal tunnel syndrome of left wrist G56.02 [place] [id number] [place] [address] 65692- 2725 May, [place] [id number] [place] [address] 00616- 6859 Apr, Type 2 diabetes mellitus with hyperglycemia, without long- term current use of insulin E11.65 [facility] [id number] [place] [address] 65837- 9241 March, Anxiety state, unspecified F41.1 [place] [address] [place] [address] 80486- 7419 Feb, [place] [id number] [place] [address] 10378- 5536 Feb, Medicare annual wellness visit, initial Z00.00 ; Type 2 diabetes mellitus with hyperglycemia, without long-term current use of insulin E11.65 ; Major depressive disorder, recurrent episode, moderate F33.1 ; Mixed hyperlipidemia E78.2 ; Fibromyalgia M79.7 ; Retinitis pigmentosa H35.52 ; Panic attacks F41.0 ; Facial skin lesion L98.9 ; Fullness of neck R22.1 and Screening for colon cancer Z12.11 [place] [address] [address]- [address] Feb, Type 2 diabetes mellitus with hyperglycemia, without long- term current use of insulin E11.65 [place] [address] 41640- 6902 Jan, [place] [address] 31972- 3647 Jan, Asymptomatic microscopic hematuria R31.21 ; Chest pain, unspecified type R07.9 and Generalized anxiety disorder F41.1 [place] [address] 06342- 3444 Jan, [place] [address] 14448- 6519 Jan, [facility] [address] 48[address] Dec, [place] [address] 14307- 1051 Dec, [place] [address] 70344- 8078 Dec, [place] [address] 55924- 3927 Dec, [place] [address] 96489- 4576 Dec, [place] [address] 55159- 8025 13 Dec, 2017 Tension headache G44.209 [place] [address] 72131- 8[address] 09 Dec, 2017 Elevated LFTs R79.89 ; Type 2 diabetes mellitus with hyperglycemia, without long-term current use of insulin E11.65 ; Abdominal bloating R14.0 and Other fatigue R53.83 [place] [id number] [place] [address] 79755- 4833 08 Dec, 2017 Elevated ALT measurement R74.0 [facility], [place] [id number] [place] [address] 16703- 5621 Nov, Type 2 diabetes mellitus with hyperglycemia, without long- term current use of insulin E11.65 and Mixed hyperlipidemia E78.2 [place] [address] 54630- 3573 Oct, [place] [address] 68902- 2187 Oct, Elevated ALT measurement R74.0 [place] [address] 87594- 2527 Oct, [place] [address] 30929- 1082 Oct, [place] [id number] [place] [address] 04775- 2999 Oct, Breast cancer screening Z12.31 [place] [address] 21233- 2951 Sep, Tension headache G44.209 ; Cervical disc disorder at C5-C6 level with radiculopathy M50.122 ; Other fatigue R53.83 ; Breast pain, left N64.4 ; Vertigo R42 and Abnormal tympanic membrane of left ear H73.92 [facility] [id number] [place] [address] 70744 -3555 Sep, Screening breast examination Z12.39 [place] [address] 78695- 0154 Sep, [place] [address] 87838- 9654 Sep, Mixed hyperlipidemia E78.2 and Type 2 diabetes mellitus with hyperglycemia, without long-term current use of insulin E11.65 [facility], [place] [id number] [place] [address] 25170- 1172 Jul, [facility], [place] [id number] [place] [address] 37448- 5516 Jul, Lumbago with sciatica, right side M54.41 and Other chronic pain G89.29 [facility], [place] [id number] [place] [address] 02286- 4251 May, Type 2 diabetes mellitus with hyperglycemia, without long- term current use of insulin E11.65 ; Low back pain M54.5 ; Tobacco use Z72.0 ; Mixed hyperlipidemia E78.2 ; Lateral epicondylitis of right elbow M77.11 and 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 [id number] [place] [address] 21105 -4310 March, Lumbosacral neuritis M54.17 [facility], [place] [id number] [place] [address] 19737- 7620 March, Low back pain M54.5 [facility], [place] [id number] [place] [address] 21088- 4665 March, [facility], [place] [id number] [place] [address] 47160- 8285 March, [facility], [place] [id number] [place] [address] 56000- 7760 March, [facility], [place] [id number] [place] [address] 67524- 6367 Feb, [place] [id number] [place] [address] 27932- 5808 Feb, [place] [id number] [place] [address] 45028- 1918 Feb, [place] [id number] [place] [address] 68923- 5491 Feb, Low back pain M54.5 and Pain in thoracic spine M54.6 [place] [id number] [place] [address] 60513- 5109 Jan, Panic attacks F41.0 ; Type 2 diabetes mellitus with hyperglycemia, without long-term current use of insulin E11.65 and Other chest pain R07.89 [place] [id number] [place] [address] 98565- 8366 Jan, [place] [id number] [place] [address] 63805- 5653 Jan, Type 2 diabetes mellitus with hyperglycemia, without long- term current use of insulin E11.65 [place] [id number] [place] [address] 10435- 7335 Jan, Pain in thoracic spine M54.6 [place] [id number] [place] [address] 99450- 0685 Jan, Type 2 diabetes mellitus with hyperglycemia, without long- term current use of insulin E11.65 and Elevated liver enzymes R74.8 [place] [address] [place] [address] 94126- 0905 Jan, [place] [id number] [place] [address] 56081- 4964 Dec, Tobacco use Z72.0 ; Prediabetes R73.09 ; Elevated liver enzymes R74.8 ; Elevated fasting glucose R73.01 ; Elevated ALT measurement R74.0 ; Pain in thoracic spine M54.6 ; Panic attacks F41.0 and Type 2 diabetes mellitus with hyperglycemia, without long-term current use of insulin E11.65 [facility] [address] [address] Jun, Abdominal pain, right upper quadrant R10.11 [facility], [place] [address] [address]- 3743 Jun, [facility], [place] [id number] [place] [address] 52847- 0508 Jun, [facility], [place] [id number] [place] [address] 04321- 2577 Jun, [place] [id number] [place] [address] 96220- 7062 May, Routine gynecological examination Z01.419 ; Encounter for Papanicolaou smear for cervical cancer screening Z12.4 ; Screening breast examination Z12.39 ; Vaginal discharge N89.8 and Candidal vaginitis B37.3 [place] [id number] [place] [address] 59379- 9891 May, [place] [id number] [place] [address] 96977- 2431 May, Prediabetes R73.09 ; Elevated ALT measurement R74.0 ; Elevated fasting glucose R73.01 and Palpitations R00.2 [place] [address] [place] [address] 71530- 4326 Feb, [place] [id number] [place] [address] 23707- 1492 Feb, [place] [id number] [place] [address] 87108- 4451 Feb, Generalized anxiety disorder F41.1 and Major depressive disorder, recurrent episode, moderate F33.1 [place] [address] [place] [address] 65797- 2670 07 Feb, 2016 Generalized anxiety disorder F41.1 ; Low back pain M54.5 and Insomnia G47.00 [place] [address] [place] [address]- 7951 Jan, Elevated fasting glucose R73.01 and Elevated ALT measurement R74.0 [facility], [place] [id number] [place] [address] 78636- 5632 Jan, Generalized anxiety disorder F41.1 ; Low back pain M54.5 and Screening cholesterol level Z13.220 [facility], [place] [id number] [place] [address] 48542- 1142 Dec, Scoliosis M41.9 and Anxiety F41.9 [facility], [place] [id number] [place] [address] 21801- 0575 Feb, [facility], [place] [id number] [place] [address] 73076- 5659 Feb, [facility], [place] [id number] [place] [address] 62167- 3674 Apr, [facility], [place] [id number] [place] [address] 09014- 0931 March, [facility], [place] [id number] [place] [address] 21153- 4337 March, [facility], [place] [id number] [place] [address] 95372- 5194 March, [facility], [place] [address] [place] [address] 06418- 4235 March, [facility], [place] [id number] [place] [address] 04789- 1001 March, [facility], [place] [address] [id number] [address]- 1575 March, [facility], [place] [id number] [place] [address] 77235- 9712 March, [facility], [place] [address] [address]- 9709 March, [facility], [place] [id number] [place] [address]- 6908 Feb, [facility] [place] [facility] [address] [id number] [place] [address]- 5294 Feb, [facility] [place] [facility] [address] [id number] [place] [address]- 3231 Feb, [facility] [place] [facility] [address] [id number] [place] [address]- 4777 Feb, [facility] [place] [facility] [address] [id number] [place] [address]- 7714 Jan, [facility] [place] [facility] [address] [id number] [place] [address]- 5155 Jan, [facility] [place] [facility] [address] [id number] [place] [address]- 6568 Jan, [facility] [place] [facility] [address] [id number] [place] [address]- 5953 Jan, [facility] [place] [facility] [address] [id number] [place] [address]- 4691 Jan, [facility] [place] [facility] [address] [id number] [place] [address]- 3510 Jan, [facility] [place] [facility] [address] [facility] [id number] [place] [address]- 4837 Jan, [facility] [place] [facility] [address] [id number] [place] [address]- 0697 Dec, [facility] [place] [facility] [address] [id number] [place] [address]- 6617 Dec, [facility] [place] [facility] [address] [id number] [place] [address]- 6980 Dec, [facility] [place] [facility] [address] [id number] [place] [address]- 7127 Dec, [facility] [place] [facility] [address] [id number] [place] [address]- 7126 Dec, [facility] [place] [facility] [address] [id number] [place] [address]- 9779 Dec, [facility] [place] [facility] [address] [id number] [place] [address]- 8445 Nov, [facility] [place] [facility] [address] [id number] [place] [address]- 7631 Nov, [facility] [place] [facility] [address] [id number] [place] [address]- 1313 Nov, [facility] [place] [facility] [address] [id number] [place] [address]- 8723 Nov, [facility] [place] [facility] [address] [id number] [place] [address]- 9642 Nov, [facility] [place] [facility] [address] [id number] [place] [address]- 7510 Nov, [facility] [place] [facility] [address] [id number] [place] [address]- 1908 Nov, [facility] [place] [facility] [address] [id number] [place] [address]- 2618 Oct, [facility] [place] [facility] [address] [id number] [place] [address]- 6144 Oct, [facility] [place] [facility] [address] [id number] [place] [address]- 5720 Oct, [facility] [place] [facility] [address] [id number] [place] [address]- 0850 Oct, [facility] [place] [facility] [address] [id number] [place] [address]- 6090 Sep, [facility] [place] [facility] [address] [id number] [place] [address]- 1236 Sep, [facility] [place] [facility] [address] [id number] [place] [address]- 6506 Sep, [facility] [place] [facility] [address] [id number] [place] [address]- 4041 Sep, [facility] [place] [facility] [address] [id number] [place] [address]- 6263 Sep, [facility] [place] [facility] [address] [id number] [place] [address]- 2722 Sep, [facility] [place] [facility] [address] [id number] [place] [address]- 0464 Aug, [facility] [place] [facility] [address] [id number] [place] [address]- 4702 Aug, [facility] [place] [facility] [address] [id number] [place] [address]- 7704 Aug, [facility] [place] [facility] [address] [id number] [place] [address]- 0138 Aug, [facility] [place] [facility] [address] [id number] [place] [address]- 3854 Aug, [facility] [place] [facility] [address] [id number] [place] [address]- 2509 Aug, [facility] [place] [facility] [address] [id number] [place] [address]- 3676 Aug, [facility] [place] [facility] [address] [id number] [place] [address]- 6982 Jul, [facility] [place] [facility] [address] [id number] [place] [address]- 8951 Jul, [facility] [place] [facility] [address] [id number] [place] [address] 2544 Jun, [facility] [place] [facility] [address] [id number] [place] [address]- 4359 May, [facility] [place] [facility] [address] [id number] [place] [address] 2541 May, [facility] [place] [facility] [address] [id number] [place] [address]- 6657 May, [facility] [place] [facility] [address] [id number] [place] [address]- 6736 Apr, [facility] [address] [id number] [place] [address]- 5595 Apr, [facility] [place] [facility] [address] [id number] [place] [address]- 6946 Apr, [facility] [place] [facility] [address] [id number] [place] [address]- 8515 March, [facility] [place] [facility] [address] [id number] [place] [address]- 0936 March, [facility] [place] [facility] [address] [id number] [place] [address]- 5741 March, [facility] [address] [id number] [place] [address]- 4393 Feb, [facility] [address] [id number] [place] [address]- 3924 Feb, [facility] [address] [id number] [place] [address]- 2966 15 Feb, 2013 [facility] [address] [id number] [place] [address]- 1864 28 Jan, 2013 [facility] [address] [id number] [place] [address]- 0081 19 Jan, 2013 [facility] [place] [facility] [address] [id number] [place] [address]- 3081 18 Jan, 2013 [facility] [place] [facility] [address] [id number] [place] [address]- 9656 15 Jan, 2013 [facility] [place] [facility] [address] [id number] [place] [address]- 0235 14 Jan, 2013 [facility] [place] [facility] [address] [id number] [place] 5453 12 Jan, 2013 [facility] [place] [facility] [address] [id number] [place] [address]- 1285 05 Jan, 2013 [facility] [address] [id number] [place] [address]- 1606 28 Dec, 2012 [facility] [place] [facility] [address] [id number] [place] [address]- 0466 18 Dec, 2012 [facility] [address] [id number] [place] [address]- 0186 15 Dec, 2012 [facility] [place] [facility] [address] [id number] [place] [address]- 0919 14 Dec, 2012 [facility] [address] [id number] [place] [address]- 6001 05 Dec, 2012 [facility] [address] [id number] [place] [address] 29 Nov, 2012 [facility] [address] [id number] [place] [address] Nov, [facility] [address] [id number] [place] [address] Nov, [facility] [address] [id number] [place] [address] Nov, [facility] [address] [facility] [id number] [place] [address] 31 Oct, 2012 [facility] [address] [id number] [place] [address] 31 Oct, 2012 [facility] [place] [facility] [address] [id number] [place] [address] 18 Oct, 2012 [facility] [place] [facility] [address] [id number] [place] [address] 18 Oct, 2012 [facility] [place] [facility] [address] [id number] [place] [address] Oct, [facility] [place] [facility] [address] [id number] [place] [address] Oct, [facility] [place] [facility] [address] [id number] [place] [address] 10 Oct, 2012 [facility] [place] [facility] [address] [id number] [place] [address] Oct, [facility] [place] [facility] [address] [id number] [place] [address] Oct, [facility] [place] [facility] [address] [id number] [place] [address] Sep, [facility] [place] [facility] [address] [id number] [place] [address] Sep, [facility] [place] [facility] [address] [id number] [place] [address] Sep, [facility] [place] [facility] [address] [id number] [place] [address] Sep, [facility] [place] [facility] [address] [id number] [place] [address] Sep, [facility] [place] [facility] [address] [id number] [place] [address] Aug, [facility] [place] [facility] [address] [id number] [place] [address] Aug, [facility] [place] [facility] [address] [facility] [id number] [place] [address] Aug, [facility] [place] [facility] [address] [id number] [place] [address] Aug, [facility] [place] [facility] [address] [id number] [place] [address] 16 Aug, 2012 [facility] [place] [facility] [address] [id number] [place] [address] Aug, [facility] [place] [facility] [address] [id number] [place] [address] Aug, [facility] [place] [facility] [address] [id number] [place] [address] Aug, [facility] [place] [facility] [address] [id number] [place] [address] 10 Aug, 2012 [facility] [place] [facility] [address] [id number] [place] [address] 09 Aug, 2012 [facility] [place] [facility] [address] [id number] [place] [address] 05 Aug, 2012 [facility] [place] [facility] [address] [id number] [place] [address] 04 Aug, 2012 [facility] [place] [facility] [address] [id number] [place] [address] 17 Jul, 2012 [facility] [place] [facility] [address] [id number] [place] [address] 13 Jul, 2012 [facility] [place] [facility] [address] [id number] [place] [address] 13 Jul, 2012 [facility] [place] [facility] [address] [id number] [place] [address]26 11 Jul, 2012 [facility] [place] [facility] [address] [id number] [place] [address] 10 Jul, 2012 [facility] [place] [facility] [address] [id number] [place] [address]- [address] 08 Jul, 2012 [facility] [place] [facility] [address] [id number] [place] [address] 16 Jun, 2012 [facility] [place] [facility] [address] [id number] [address] 14 Jun, 2012 [facility] [place] [facility] [address] [id number] [place] [address] 17 May, 2012 [facility] [place] [facility] [address] [id number] [place] [address] 17 May, 2012 [facility] [place] [facility] [address] [id number] [place] [address] 13 May, 2012 [facility] [place] [facility] [address] [id number] [place] [address] May, [facility] [place] [facility] [address] [id number] [place] [address] Apr, [facility] [place] [facility] [address] [id number] [place] [address] Apr, [facility] [place] [facility] [address] [id number] [place] [address] Apr, [facility] [place] [facility] [address] [id number] [place] [address] Apr, [facility] [place] [facility] [address] [id number] [place] [address] Apr, [facility] [place] [facility] [address] [id number] [place] [address] March, [facility] [place] [facility] [address] [id number] [place] [address] March, [facility] [place] [facility] [address] [id number] [place] [address] March, [facility] [place] [facility] [address] [id number] [place] [address] March, [facility] [place] [facility] [address] [id number] [place] [address] March, [facility] [place] [facility] [address] [id number] [place] [address] 24 Feb, 2012 [facility] [place] [facility] [address] [id number] [place] [address] Feb, [facility] [place] [facility] [address] [id number] [place] [address] Jan, [facility] [place] [facility] [address] [id number] [place] [address] Jan, [facility] [place] [facility] [address] [id number] [place] [address] Jan, [facility] [place] [facility] [address] [id number] [place] [address] 28 Dec, 2011 [facility] [place] [facility] [address] [id number] [place] [address] Nov, [facility] [place] [facility] [address] [id number] [place] [address] 27 Nov, 2011 [facility] [place] [facility] [address] [id number] [place] [address] Nov, [facility] [place] [facility] [address] [id number] [place] [address] Nov, [facility] [place] [facility] [address] [id number] [place] [address] Oct, [facility] [place] [facility] [address] [id number] [place] [address] Oct, [facility] [place] [facility] [address] [id number] [place] [address] Sep, [facility] [place] [facility] [address] [id number] [place] [address] 18 Sep, 2011 [facility] [place] [facility] [address] [id number] [place] [address] Sep, [facility] [place] [facility] [address] [id number] [place] [address] Sep, [facility] [place] [facility] [address] [id number] [place] [address] Sep, [facility] [place] [facility] [address] [id number] [place] [address] 16 Jun, 2011 [facility] [place] [facility] [address] [id number] [place] [address] 15 Dec, 2010 [facility] [place] [facility] [address] [id number] [place] [address] 03 Sep, 2010 [facility] [place] [facility] [address] [id number] [address] Aug, [facility] [place] [id number] Aug, [facility] [place] [id number] [address] Aug, [facility] [place] [id number] [address] Aug, [facility] [place] [id number] [address] Aug, [facility] [place] [id number] [address] Jun, [facility] [place] [id number] [place] [address] Feb, [facility] [place] [id number] [address] [address] Sep, [facility] [place] [id number] [address] Aug, [facility] [place] [id number] [address] [address] Apr, [facility] [place] [id number] [address] March, IMMUNIZATIONS No Known Immunizations SOCIAL HISTORY Never Assessed REASON FOR VISIT Diabetes, microalbumin, [id number] PLAN OF CARE Activity Details Follow Up 3 Months Reason:DMII Pending Test LONNIE ERNANDEZ (OUTSIDE ORDER) VITAL SIGNS Height 61 in 2018-09-12 Weight 171 lbs 2018-09-12 Temperature 98 degrees Fahrenheit 2018-09-12 Heart Rate 78 bpm 2018-09-12 Respiratory Rate 18 2018-09-12 BMI 32.31 kg/m2 2018-09-12 Blood pressure systolic 116 mmHg 2018-09-12 Blood pressure diastolic 74 mmHg 2018-09-12 MEDICATIONS Medication Instructions Dosage Frequency Start Date End Date Duration Status Metoprolol Succinate ER 50 MG Orally Once a day 1 tablet 24h Active Metformin HCl 500 MG Orally Twice a day 1 tablet with a meal 12h 90 days Active Rosuvastatin Calcium 20 mg Orally Once a day 1 tablet 24h 90 days Active Nebulizer/Tubing/Mouthpiece - Use as directed with Albuterol Sulfate Inhalation solution May, lifetime Active Blood Glucose Monitor System w/Device ICD10- E11.65 2 times a day -3 times weekly. as directed Jan, Active Magnesium 100 MG Orally Once a day 4 tablets with a meal 24h 30 day(s ) Active Potassium 75 MG Orally Once a day 1 tablet 24h 30 day(s) Active Blood Glucose Test - and Lancets ICD10- E11.65 2 times a day- 3 times weekly as directed Jan, Active Cyclobenzaprine HCl 10 mg Orally Three times a day 1 tablet as needed 8h 30 Active Albuterol Sulfate (2.5 MG/3ML) 0.083% Inhalation every 6 hrs for COPD exacerbation 3 ml as needed May, Active RESULTS Name Result Date Reference Range A1C (IN HOUSE) 2018-09-12 A1C IN HOUSE 6.8 4.3 - 5.6 % Previous A1c 7.7 Lot [id number] Exp date 01/2020 MICROALBUMIN, URINE (IN HOUSE) 2018-09-12 MICROALBUMIN normal Lot # [id number] Exp date 07/2019 Clarity clear Color yellow ALB 10 CRE 100 A:C (IN HOUSE) <30 Control Control Lot # Exp date Xray : Chest 2 View (IN HOUSE) 2018-09-12 PROCEDURES Procedure Date Ordered Result Body Site GLYCATED HEMOGLOBIN TEST Sep 12, 2018 MICROALBUMIN, SEMIQUANT Sep 12, 2018 X-RAY EXAM CHEST 2 VIEWS Sep 12, 2018 INSTRUCTIONS MEDICATIONS ADMINISTERED No Known Medications [...]
--- OUTSIDE RECORDS SUMMARY | 2019-02-03 10:45 | XMS REPORT ---
Author Author ROMY PULIDO Organization [facility] Address [address] [place] [address] Care Team Providers Care Stud Master/Mistress Name Role Phone ASHOK ROMY Unavailable PROBLEMS Type Condition ICD9-CM Code LTA95-YM Code Onset Dates Condition Status SNOMED Code Problem Panic attacks F41.0 Active 351607819 Problem Tension headache G44.209 Active 421783106 Problem Mixed hyperlipidemia E78.2 Active 810853184 Problem Venous insufficiency (chronic) (peripheral) I87.2 Active 90596676 Problem Peripheral polyneuropathy G62.9 Active 74930030 Problem Retinitis pigmentosa H35.52 Active 39226109 Problem Cervical disc disorder at C5-C6 level with radiculopathy M50.122 Active 258967213 Problem Carpal tunnel syndrome of left wrist G56.02 Active 595246885647047 Problem Anxiety state, unspecified F41.1 Active 922951992 Problem Generalized anxiety disorder F41.1 Active 12537629 Problem Major depressive disorder, recurrent episode, moderate F33.1 Active 713150661 Problem Chest pain, unspecified type R07.9 Active 90780581 Problem Type 2 diabetes mellitus with hyperglycemia, without long-term current use of insulin E11.65 Active 99684647 Problem Fibromyalgia M79.7 Active 843846089 Problem Tobacco use Z72.0 Active 361743714 ALLERGIES No Information ENCOUNTERS Encounter Location Date Diagnosis [facility] [id number] [address] Sep, Type 2 diabetes mellitus with hyperglycemia, without long- term current use of insulin E11.65 ; Cough R05 ; Tobacco use Z72.0 ; Mixed hyperlipidemia E78.2 and Colon cancer screening Z12.11 [facility] [address] [address] Sep, [facility] [address] [address] Aug, Venous insufficiency (chronic) (peripheral) I87.2 [facility] [address] [address] Aug, Left flank pain R10.9 and Muscle pain M79.10 [facility] [address] [address]- [address] Aug, [place] [address] [address]- [address] Jul, Dependent edema R60.9 and Tobacco use Z72.0 [place] [address] [address]- [address]6 Jun, Cervical disc disorder at C5-C6 level with radiculopathy M50.122 [place] [address] [address]127- [address]77 Jun, [facility] [address] [address] Jun, Pneumonia of right lung due to infectious organism, unspecified part of lung J18.9 [place] [address] [address]93- 7708 May, [place] [address] [address]78- 4627 May, Cough R05 [place] [address] 95208- 4756 May, [place] [address] 40007- 3613 May, COPD with exacerbation J44.1 [place] [address] 23142- [address]67 May, Type 2 diabetes mellitus with hyperglycemia, without long- term current use of insulin E11.65 ; Peripheral polyneuropathy G62.9 ; Cough R05 and COPD with exacerbation J44.1 [place] [id number] [place] [address] 29410- 1936 May, [place] [id number] [place] [address] 65413- 2897 May, COPD with exacerbation J44.1 and Tobacco abuse counseling Z71.6 [place] [id number] [place] [address] 18852- 3820 May, [place] [id number] [place] [address] 52468- 8964 May, [facility] [id number] [place] [address] 56666 -9212 May, Numbness of left hand R20.0 and Carpal tunnel syndrome of left wrist G56.02 [place] [id number] [place] [address] 12670- 2932 May, [place] [id number] [place] [address] 50899- 6521 Apr, Type 2 diabetes mellitus with hyperglycemia, without long- term current use of insulin E11.65 [address] [id number] [place] [address] 78199- 6343 March, Anxiety state, unspecified F41.1 [place] [id number] [place] [address] 44131- 8833 Feb, [place] [id number] [place] [address] 51491- 2527 Feb, Medicare annual wellness visit, initial Z00.00 ; Type 2 diabetes mellitus with hyperglycemia, without long-term current use of insulin E11.65 ; Major depressive disorder, recurrent episode, moderate F33.1 ; Mixed hyperlipidemia E78.2 ; Fibromyalgia M79.7 ; Retinitis pigmentosa H35.52 ; Panic attacks F41.0 ; Facial skin lesion L98.9 ; Fullness of neck R22.1 and Screening for colon cancer Z12.11 [place] [id number] [place] [address] 64945- 6339 Feb, Type 2 diabetes mellitus with hyperglycemia, without long- term current use of insulin E11.65 [facility] [id number] [place] [address] 13099- 2968 Jan, [facility] [id number] [place] [address] 18935- 5517 Jan, Asymptomatic microscopic hematuria R31.21 ; Chest pain, unspecified type R07.9 and Generalized anxiety disorder F41.1 [facility] [id number] [place] [address] 16516- 4923 Jan, [facility] [address] 21940- 4421 Jan, [facility] [id number] [place] [address] 49334 -3910 Dec, [facility] [address] 36269- 1272 Dec, [facility] [id number] [place] [address] 86498- 8979 Dec, [facility] [address] 34793- 4875 Dec, [facility] [id number] [place] [address] 07476- 3558 Dec, [facility] [id number] [place] [address] 06471- 5676 13 Dec, 2017 Tension headache G44.209 [facility] [id number] [place] [address] 39862- 2007 09 Dec, 2017 Elevated LFTs R79.89 ; Type 2 diabetes mellitus with hyperglycemia, without long-term current use of insulin E11.65 ; Abdominal bloating R14.0 and Other fatigue R53.83 [facility] [id number] [place] [address] 14570- 6263 08 Dec, 2017 Elevated ALT measurement R74.0 [place] [id number] [place] [address] 16373- 7033 Nov, Type 2 diabetes mellitus with hyperglycemia, without long- term current use of insulin E11.65 and Mixed hyperlipidemia E78.2 [place] [id number] [place] [address] 04107- 0211 Oct, [place] [address] 83913- 7545 Oct, Elevated ALT measurement R74.0 [place] [address] 19805- 2793 Oct, [place] [address] 61817- 9779 Oct, [place] [address] 16413- 5223 Oct, Breast cancer screening Z12.31 [place] [address] 19757- 0608 Sep, Tension headache G44.209 ; Cervical disc disorder at C5-C6 level with radiculopathy M50.122 ; Other fatigue R53.83 ; Breast pain, left N64.4 ; Vertigo R42 and Abnormal tympanic membrane of left ear H73.92 [facility] [id number] [place] [address] 43407 -9081 Sep, Screening breast examination Z12.39 [place] [id number] [place] [address] 49231- 7714 Sep, [place] [address] 80536- 7778 Sep, Mixed hyperlipidemia E78.2 and Type 2 diabetes mellitus with hyperglycemia, without long-term current use of insulin E11.65 [place] [id number] [place] [address] 13049- 6057 Jul, [place] [address] 74138- 6184 Jul, Lumbago with sciatica, right side M54.41 and Other chronic pain G89.29 [facility] [id number] [place] [address] 37342- 8416 May, Type 2 diabetes mellitus with hyperglycemia, without long- term current use of insulin E11.65 ; Low back pain M54.5 ; Tobacco use Z72.0 ; Mixed hyperlipidemia E78.2 ; Lateral epicondylitis of right elbow M77.11 and 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 [facility] [id number] [place] [address] 49646- 6752 Apr, [facility] [address] 21947- 3967 Apr, Low back pain M54.5 [facility] [id number] [place] [address] 03940- 3470 Apr, Pain in thoracic spine M54.6 [facility] [id number] [place] [address] 74428 -8461 March, Lumbosacral neuritis M54.17 [facility] [id number] [place] [address] 07834- 5111 March, Low back pain M54.5 [facility] [id number] [place] [address] 66332- 4029 March, [facility] [id number] [place] [address] 98228- 4801 March, [facility] [id number] [place] [address] 75277- 2305 March, [facility] [id number] [place] [address] 59553- 8017 Feb, [facility] [id number] [place] [address] 68399- 0753 Feb, [facility] [address] 22715- 9664 Feb, [place] [id number] [place] [address] 94617- 2473 Feb, Low back pain M54.5 and Pain in thoracic spine M54.6 [place] [id number] [place] [address] 63355- 4591 30 Jan, 2017 Panic attacks F41.0 ; Type 2 diabetes mellitus with hyperglycemia, without long-term current use of insulin E11.65 and Other chest pain R07.89 [place] [id number] [place] [address] 60417- 3929 Jan, [place] [address] 40525- 2835 Jan, Type 2 diabetes mellitus with hyperglycemia, without long- term current use of insulin E11.65 [place] [id number] [place] [address] 56324- 8572 Jan, Pain in thoracic spine M54.6 [place] [id number] [place] [address] 67822- 9978 Jan, Type 2 diabetes mellitus with hyperglycemia, without long- term current use of insulin E11.65 and Elevated liver enzymes R74.8 [place] [id number] [place] [address] 56079- 7803 Jan, [place] [id number] [place] [address] 64910- 7457 Dec, Tobacco use Z72.0 ; Prediabetes R73.09 ; Elevated liver enzymes R74.8 ; Elevated fasting glucose R73.01 ; Elevated ALT measurement R74.0 ; Pain in thoracic spine M54.6 ; Panic attacks F41.0 and Type 2 diabetes mellitus with hyperglycemia, without long-term current use of insulin E11.65 [facility] [id number] [place] [address] 38090 -6793 Jun, Abdominal pain, right upper quadrant R10.11 [place] [address] [place] [address]- 4986 Jun, [facility] [id number] [place] [address] 99132- 8018 Jun, [facility] [id number] [place] [address] 24021- 0219 Jun, [facility] [id number] [place] [address] 04851- 6077 May, Routine gynecological examination Z01.419 ; Encounter for Papanicolaou smear for cervical cancer screening Z12.4 ; Screening breast examination Z12.39 ; Vaginal discharge N89.8 and Candidal vaginitis B37.3 [place] [id number] [place] [address] 99230- 0105 May, [place] [id number] [place] [address] 53578- 6326 May, Prediabetes R73.09 ; Elevated ALT measurement R74.0 ; Elevated fasting glucose R73.01 and Palpitations R00.2 [place] [id number] [place] [address] 19906- 8596 Feb, [place] [id number] [place] [address] 82700- 1872 Feb, [place] [id number] [place] [address] 10802- 3615 Feb, Generalized anxiety disorder F41.1 and Major depressive disorder, recurrent episode, moderate F33.1 [place] [id number] [place] [address] 53163- 0091 Feb, Generalized anxiety disorder F41.1 ; Low back pain M54.5 and Insomnia G47.00 [place] [id number] [place] [address] 96469- 8363 Jan, Elevated fasting glucose R73.01 and Elevated ALT measurement R74.0 [place] [id number] [place] [address] 79824- 8403 Jan, Generalized anxiety disorder F41.1 ; Low back pain M54.5 and Screening cholesterol level Z13.220 [facility] [id number] [place] [address] 69970- 2669 Dec, Scoliosis M41.9 and Anxiety F41.9 [facility] [id number] [place] [address] 08566- 5567 Feb, [facility] [id number] [place] [address] 02007- 6498 Feb, [facility] [id number] [place] [address] 37725- 7106 Apr, [facility] [id number] [place] [address] 23431- 3087 March, [facility] [id number] [place] [address] 88989- 4628 March, [facility] [id number] [place] [address] 38361- 3659 March, [facility] [id number] [place] [address] 05543- 3266 March, [facility] [id number] [place] [address] 32685- 1038 March, [facility] [address], [place] [address]- 4424 March, [facility] [address], [place] [address]- 8404 March, [facility] [address] [address]- 8450 March, [facility] [id number] [place] [address] 45703- 8915 Feb, [facility] [address] [address]- 1970 Feb, [facility] [id number] [place] [address]- 9449 Feb, [facility] [place] [facility] [address] [id number] [place] [address]- 0120 Feb, [facility] [place] [facility] [address] [id number] [place] 9564 Jan, [facility] [place] [facility] [address] [id number] [place] [address]- 3846 Jan, [facility] [place] [facility] [address] [id number] [place] [address]- 5472 Jan, [facility] [place] [facility] [address] [id number] [place] 0630 Jan, [facility] [place] [facility] [address] [id number] [place] [address]- 5458 Jan, [facility] [place] [facility] [address] [id number] [place] [address]- 7176 Jan, [facility] [place] [facility] [address] [id number] [place] [address]- 1977 Jan, [facility] [place] [facility] [address] [id number] [place] [address]- 5493 Dec, [facility] [place] [facility] [address] [facility] [id number] [place] [address]- 4969 Dec, [facility] [place] [facility] [address] [id number] [place] [address]- 7516 Dec, [facility] [place] [facility] [address] [facility] [id number] [place] [address]- 8512 Dec, [facility] [place] [facility] [address] [id number] [place] [address]- 8981 Dec, [facility] [place] [facility] [address] [facility] [id number] [place] [address]- 6646 Dec, [facility] [place] [facility] [address] [facility] [id number] [place] 7003 Nov, [facility] [address] [id number] [place] [address]- 3151 Nov, [facility] [place] [facility] [address] [id number] [place] [address]- 0756 Nov, [facility] [place] [facility] [address] [id number] [place] [address]- 2603 Nov, [facility] [place] [facility] [address] [id number] [place] [address]- 7350 Nov, [facility] [place] [facility] [address] [id number] [place] [address]- 5503 Nov, [facility] [place] [facility] [address] [id number] [place] [address]- 2260 Nov, [facility] [place] [facility] [address] [id number] [place] [address]- 0157 Oct, [facility] [place] [facility] [address] [id number] [place] [address]- 5506 Oct, [facility] [place] [facility] [address] [id number] [place] [address]- 3548 Oct, [facility] [place] [facility] [address] [id number] [place] [address]- 0920 Oct, [facility] [place] [facility] [address] [id number] [place] [address]- 0573 Sep, [facility] [place] [facility] [address] [id number] [address]- 8015 Sep, [facility] [place] [facility] [address] [id number] [place] [address]- 7982 Sep, [facility] [place] [facility] [address] [id number] [place] [address]- 4216 Sep, [facility] [place] [facility] [address] [id number] [place] [address]- 8544 Sep, [facility] [place] [facility] [address] [id number] [place] [address]- 7328 Sep, [facility] [place] [facility] [address] [id number] [place] [address]- 1522 Aug, [facility] [place] [facility] [address] [id number] [place] [address]- 1471 Aug, [facility] [place] [facility] [address] [id number] [place] [address]- 2915 Aug, [facility] [place] [facility] [address] [id number] [place] [address]- 0323 Aug, [facility] [place] [facility] [address] [id number] [place] [address]- 7627 Aug, [facility] [place] [facility] [address] [id number] [place] [address]- 2721 Aug, [facility] [place] [facility] [address] [id number] [place] [address]- 9399 Aug, [facility] [place] [facility] [address] [id number] [place] [address]- 4184 Jul, [facility] [place] [facility] [address] [id number] [place] [address]- 2474 Jul, [facility] [place] [facility] [address] [facility] [id number] [place] [address]- 9562 Jun, [facility] [place] [facility] [address] [id number] [place] [address]- 2324 May, [facility] [place] [facility] [address] [id number] [place] [address]- 8753 May, [facility] [place] [facility] [address] [id number] [place] [address]- 0600 May, [facility] [place] [facility] [address] [id number] [place] [address]- 8066 Apr, [facility] [place] [facility] [address] [id number] [place] [address]- 3467 Apr, [facility] [place] [facility] [address] [id number] [place] [address]- 6704 Apr, [facility] [address] [id number] [place] [address]- 7274 March, [facility] [address] [id number] [place] [address]- 4145 March, [facility] [address] [id number] [place] [address]- 4929 March, [facility] [address] [id number] [place] [address]- 2071 Feb, [facility] [address] [id number] [place] [address]- 7046 Feb, [facility] [address] [id number] [place] [address]- 7945 15 Feb, 2013 [facility] [address] [id number] [place] [address]- 1269 28 Jan, 2013 [facility] [address] [id number] [place] [address]- 9722 19 Jan, 2013 [facility] [address] [id number] [place] [address]- 1456 18 Jan, 2013 [facility] [address] [id number] [place] [address]- 8654 15 Jan, 2013 [facility] [address] [id number] [place] [address]- 4121 14 Jan, 2013 [facility] [address] [id number] [place] [address]- 4301 12 Jan, 2013 [facility] [place] [facility] [address] [id number] [place] [address]- 1089 05 Jan, 2013 [facility] [place] [facility] [address] [id number] [place] [address]- 2676 28 Dec, 2012 [facility] [place] [facility] [address] [id number] [place] [address]- 7060 18 Dec, 2012 [facility] [address] [id number] [place] [address]- 8191 15 Dec, 2012 [facility] [address] [id number] [place] [address]- 6396 14 Dec, 2012 [facility] [address] [facility] [id number] [place] [address]- 8256 05 Dec, 2012 [facility] [address] [id number] [place] [address]- 8546 29 Nov, 2012 [facility] [address] [id number] [place] [address]- 5998 Nov, [facility] [address] [id number] [place] [address]- 6065 Nov, [facility] [address] [facility] [id number] [place] [address]- 7873 Nov, [facility] [address] [facility] [id number] [place] [address]- 9072 31 Oct, 2012 [facility] [address] [facility] [id number] [place] [address]- 5620 31 Oct, 2012 [facility] [address] [facility] [id number] [place] [address]- 3454 Oct, [facility] [address] [facility] [id number] [place] [address]- 5384 18 Oct, 2012 [facility] [address] [facility] [id number] [place] [address] 12 Oct, 2012 [facility] [address] [facility] [id number] [place] [address] Oct, [facility] [place] [facility] [address] [facility] [id number] [place] [address] 10 Oct, 2012 [facility] [address] [facility] [id number] [place] [address] 10 Oct, 2012 [facility] [place] [facility] [address] [id number] [place] [address] 06 Oct, 2012 [facility] [place] [facility] [address] [id number] [place] [address] Sep, [facility] [place] [facility] [address] [id number] [place] [address] Sep, [facility] [place] [facility] [address] [id number] [place] [address] Sep, [facility] [place] [facility] [address] [id number] [place] [address] Sep, [facility] [place] [facility] [address] [id number] [place] [address] Sep, [facility] [place] [facility] [address] [id number] [place] [address] Aug, [facility] [place] [facility] [address] [id number] [place] [address] Aug, [facility] [place] [facility] [address] [id number] [place] [address] Aug, [facility] [place] [facility] [address] [id number] [place] [address] Aug, [facility] [place] [facility] [address] [facility] [id number] [place] [address] 16 Aug, 2012 [facility] [place] [facility] [address] [id number] [place] [address] Aug, [facility] [place] [facility] [address] [id number] [place] [address] 11 Aug, 2012 [facility] [place] [facility] [address] [id number] [place] [address] Aug, [facility] [place] [facility] [address] [id number] [place] [address] 10 Aug, 2012 [facility] [place] [facility] [address] [id number] [place] [address] 09 Aug, 2012 [facility] [place] [facility] [address] [id number] [place] [address] 05 Aug, 2012 [facility] [place] [facility] [address] [id number] [place] [address] 04 Aug, 2012 [facility] [place] [facility] [address] [id number] [place] [address] 17 Jul, 2012 [facility] [place] [facility] [address] [id number] [place] [address] 13 Jul, 2012 [facility] [place] [facility] [address] [id number] [place] [address] 13 Jul, 2012 [facility] [place] [facility] [address] [id number] [place] [address] 11 Jul, 2012 [facility] [place] [facility] [address] [id number] [place] [address] 10 Jul, 2012 [facility] [facility] [address] [id number] [place] [address] 08 Jul, 2012 [facility] [place] [facility] [address] [id number] [place] [address] 16 Jun, 2012 [facility] [place] [facility] [address] [id number] [place] [address] 14 Jun, 2012 [facility] [place] [facility] [address] [id number] [place] [address] 17 May, 2012 [facility] [place] [facility] [address] [id number] [address] 17 May, 2012 [facility] [place] [facility] [address] [id number] [place] [address] 13 May, 2012 [facility] [place] [facility] [address] [id number] [place] [address] 12 May, 2012 [facility] [place] [facility] [address] [id number] [place] [address] Apr, [facility] [place] [facility] [address] [id number] [place] [address] 0659 19 Apr, 2012 [facility] [place] [facility] [address] [id number] [place] [address] 18 Apr, 2012 [facility] [place] [facility] [address] [id number] [place] [address] Apr, [facility] [place] [facility] [address] [id number] [place] [address] Apr, [facility] [place] [facility] [address] [id number] [place] [address] March, [facility] [place] [facility] [address] [id number] [place] [address] March, [facility] [place] [facility] [address] [id number] [place] [address] March, [facility] [address] [id number] [place] [address] March, [facility] [place] [facility] [address] [id number] [place] [address] March, [facility] [place] [facility] [address] [id number] [place] [address] Feb, [facility] [place] [facility] [address] [id number] [place] [address] Feb, [facility] [place] [facility] [address] [id number] [place] [address] Jan, [facility] [place] [facility] [address] [id number] [place] [address] Jan, [facility] [place] [facility] [address] [id number] [place] [address] Jan, [facility] [place] [facility] [address] [id number] [place] [address] 28 Dec, 2011 [facility] [address] [id number] [place] [address] Nov, [facility] [place] [facility] [address] [id number] [place] [address] Nov, [facility] [place] [facility] [address] [id number] [place] [address] Nov, [facility] [place] [facility] [address] [id number] [place] [address]- [address] Nov, [facility] [id number] [place] [address], [place] [address]- [address] Oct, [facility] [address] [id number] [place] [address] Oct, [facility] [place] [facility] [address] [id number] [place] [address] Sep, [facility] [place] [facility] [address] [id number] [place] [address] Sep, [facility] [address] [id number] [place] [address] Sep, [facility] [place] [address] [id number] [place] [address] Sep, [facility] [address] [id number] [place] [address] Sep, [facility] [address] [id number] [place] [address] Jun, [facility] [address] [id number] [place] [address] 78[address] Dec, [facility] [address] [id number] [place] [address] Sep, [facility] [address] [id number] [place] [address] Aug, [facility] [address] [id number] [place] [address] Aug, [facility] [address] [id number], [place] [address] Aug, [facility] [address] [id number] [address] Aug, [facility] [id number] [address] Aug, [facility] [address] [id number], [place] [address] Jun, [facility] [id number] [place] [address] Feb, [facility] [id number], [place] [address] Sep, [facility] [id number] [address] Aug, [facility] [id number] [address] Apr, [facility] [id number] [address] [address] March, IMMUNIZATIONS No Known Immunizations SOCIAL HISTORY Never Assessed REASON FOR VISIT PLAN OF CARE VITAL SIGNS MEDICATIONS No Known Medications RESULTS No Results PROCEDURES No Known [...]
--- OUTSIDE RECORDS SUMMARY | 2019-02-03 10:46 | XMS REPORT ---
Author Author ASHOK ROMY [facility] Address [address] [place] [address] Care Team Providers Care Sonography Technician Name Role Phone PHILLIP PULIDOHANY Unavailable PROBLEMS Type Condition ICD9-CM Code FNV10-VD Code Onset Dates Condition Status SNOMED Code Problem Lumbago with sciatica, right side M54.41 Active 119163812 Problem Tension headache G44.209 Active 401586977 Problem Other chronic pain G89.29 Active 30321262 Problem COPD with exacerbation J44.1 Active 740155972 Problem Fibromyalgia M79.7 Active 067029654 Problem Peripheral polyneuropathy G62.9 Active 94733768 Problem Chest pain, unspecified type R07.9 Active 75706825 Problem Retinitis pigmentosa H35.52 Active 58059046 Problem Cervical disc disorder at C5-C6 level with radiculopathy M50.122 Active 665183328 Problem Carpal tunnel syndrome of left wrist G56.02 Active [id number] Problem Anxiety state, unspecified F41.1 Active 094268740 Problem Low back pain M54.5 Active 329582911 Problem Major depressive disorder, recurrent episode, moderate F33.1 Active 416018348 Problem Calculus of gallbladder without cholecystitis without obstruction K80.20 Active 829181807 Problem Generalized anxiety disorder F41.1 Active 79492600 Problem Panic attacks F41.0 Active 413648303 Problem Type 2 diabetes mellitus with hyperglycemia, without long-term current use of insulin E11.65 Active 96929866 Problem Insomnia G47.00 Active 146651795 Problem 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 Active 89161194 Problem Tobacco use Z72.0 Active 887082743 Problem Mixed hyperlipidemia E78.2 Active 549301381 ALLERGIES No Information ENCOUNTERS Encounter Location Date Diagnosis [facility] [address] [facility] [id number] [address] 04 Aug, 2018 [facility] [id number] [place] [address] 37634- 3266 Jul, Dependent edema R60.9 and Tobacco use Z72.0 [place] [id number] [place] [address] 43933- 0422 Jun, Cervical disc disorder at C5-C6 level with radiculopathy M50.122 [place] [id number] [place] [address] 82124- 6314 Jun, [place] [id number] [place] [address] 56482- 4810 Jun, Pneumonia of right lung due to infectious organism, unspecified part of lung J18.9 [place] [id number] [place] [address] 30315- 9230 May, [place] [id number] [place] [address] 43284- 7929 May, Cough R05 [place] [id number] [place] [address] 62075- 8098 May, [place] [id number] [place] [address] 09768- 1669 May, COPD with exacerbation J44.1 [place] [address] [place] [address] 24563- 9539 May, Type 2 diabetes mellitus with hyperglycemia, without long- term current use of insulin E11.65 ; Peripheral polyneuropathy G62.9 ; Cough R05 and COPD with exacerbation J44.1 [place] [id number] [place] [address] 27992- 8437 May, [place] [id number] [place] [address] 32858- 7977 May, COPD with exacerbation J44.1 and Tobacco abuse counseling Z71.6 [place] [address] [place] [address] 90770- 0250 May, [place] [id number] [place] [address] [id number]- 9378 May, [facility] [address] [place] [address] 56868 -9098 May, Numbness of left hand R20.0 and Carpal tunnel syndrome of left wrist G56.02 [place] [id number] [place] [address] 88011- 6290 May, [place] [id number] [place] [address] 44425- 9686 Apr, Type 2 diabetes mellitus with hyperglycemia, without long- term current use of insulin E11.[address] 05149- 9674 March, Anxiety state, unspecified F41.1 [place] [id number] [place] [address] 67354- 8391 Feb, [place] [id number] [place] [address] 48169- 2153 Feb, Medicare annual wellness visit, initial Z00.00 ; Type 2 diabetes mellitus with hyperglycemia, without long-term current use of insulin E11.65 ; Major depressive disorder, recurrent episode, moderate F33.1 ; Mixed hyperlipidemia E78.2 ; Fibromyalgia M79.7 ; Retinitis pigmentosa H35.52 ; Panic attacks F41.0 ; Facial skin lesion L98.9 ; Fullness of neck R22.1 and Screening for colon cancer Z12.11 [address] [place] [address] 24623- 8125 Feb, Type 2 diabetes mellitus with hyperglycemia, without long- term current use of insulin E11.65 [place] [id number] [place] [address] 59302- 1219 Jan, [place] [id number] [place] [address] [id number]- 5603 Jan, Asymptomatic microscopic hematuria R31.21 ; Chest pain, unspecified type R07.9 and Generalized anxiety disorder F41.1 [facility] [address] [place] [address] 87124- 1013 Jan, [facility] [id number] [place] [address] 50877- 8526 Jan, [facility] [id number] [place] [address] 68259 -2245 Dec, [facility] [id number] [place] [address] 26946- 3984 Dec, [facility] [id number] [place] [address] 19304- 2414 Dec, [facility] [id number] [place] [address] 51773- 2725 Dec, [facility] [id number] [place] [address] 45280- 4118 Dec, [facility] [id number] [place] [address] 10187- 2527 Dec, Tension headache G44.209 [facility] [id number] [place] [address] 39244- 7439 09 Dec, 2017 Elevated LFTs R79.89 ; Type 2 diabetes mellitus with hyperglycemia, without long-term current use of insulin E11.65 ; Abdominal bloating R14.0 and Other fatigue R53.83 [facility] [id number] [place] [address] 00803- 8512 Dec, Elevated ALT measurement R74.0 [facility] [id number] [place] [address] 85091- 3470 Nov, Type 2 diabetes mellitus with hyperglycemia, without long- term current use of insulin E11.65 and Mixed hyperlipidemia E78.2 [facility] [id number] [place] [address] 66344- 6681 Oct, [facility] [id number] [place] [address] 94890- 9214 Oct, Elevated ALT measurement R74.0 [place] [id number] [place] [address] 24839- 4484 Oct, [place] [id number]- 8176 Oct, [place] [id number] [place] [address] 81348- 9947 Oct, Breast cancer screening Z12.[address] 62719- 3923 Sep, Tension headache G44.209 ; Cervical disc disorder at C5-C6 level with radiculopathy M50.122 ; Other fatigue R53.83 ; Breast pain, left N64.4 ; Vertigo R42 and Abnormal tympanic membrane of left ear H73.92 [facility] [place] [id number] [place] [address] 27475 -9578 Sep, Screening breast examination Z12.[address] 52331- 7153 13 Sep, [address] 32856- 6518 Sep, Mixed hyperlipidemia E78.2 and Type 2 diabetes mellitus with hyperglycemia, without long-term current use of insulin E11.65 [place] [id number] [place] [address] 53898- 9289 Jul, [address] 62103- 6622 Jul, Lumbago with sciatica, right side M54.41 and Other chronic pain G89.29 [place] [id number] [place] [address] 76630- 0850 May, Type 2 diabetes mellitus with hyperglycemia, without long- term current use of insulin E11.65 ; Low back pain M54.5 ; Tobacco use Z72.0 ; Mixed hyperlipidemia E78.2 ; Lateral epicondylitis of right elbow M77.11 and 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 [facility] [address] [id number] [address] 8735 Apr, [facility] [id number] [place] [address] 08509- 2455 Apr, Low back pain M54.5 [facility] [id number] [place] [address] 62744- 5890 Apr, Pain in thoracic spine M54.6 [facility] [address] [place] [address] 27897 -4050 March, Lumbosacral neuritis M54.17 [facility] [id number] [place] [address] 32216- 1256 March, Low back pain M54.5 [facility] [id number] [place] [address] 23072- 3997 March, [facility] [id number] [place] [address] 09724- 6259 March, [facility] [id number] [place] [address] 80223- 2754 March, [facility] [id number] [place] [address] 76710- 8910 Feb, [facility] [id number] [place] [address] 77348- 1678 Feb, [facility] [id number] [place] [address] 23524- 7099 Feb, [facility] [id number] [place] [address] 13237- 3054 Feb, Low back pain M54.5 and Pain in thoracic spine M54.6 [facility] [address] [place] [address] 20617- 5674 Jan, Panic attacks F41.0 ; Type 2 diabetes mellitus with hyperglycemia, without long-term current use of insulin E11.65 and Other chest pain R07.89 [facility] [address] [place] [address] 92660- 6012 Jan, [facility] [id number] [place] [address] 91307- 7240 Jan, Type 2 diabetes mellitus with hyperglycemia, without long- term current use of insulin E11.65 [place] [id number] [place] [address] 45648- 6995 Jan, Pain in thoracic spine M54.6 [place] [id number] [place] [address] 63768- 2732 Jan, Type 2 diabetes mellitus with hyperglycemia, without long- term current use of insulin E11.65 and Elevated liver enzymes R74.8 [place] [id number] [place] [address] 07557- 0767 Jan, [place] [id number] [place] [address] 18047- 2332 Dec, Tobacco use Z72.0 ; Prediabetes R73.09 ; Elevated liver enzymes R74.8 ; Elevated fasting glucose R73.01 ; Elevated ALT measurement R74.0 ; Pain in thoracic spine M54.6 ; Panic attacks F41.0 and Type 2 diabetes mellitus with hyperglycemia, without long-term current use of insulin E11.65 [facility] [id number] [place] [address] 20697 -2321 Jun, Abdominal pain, right upper quadrant R10.11 [facility] [id number] [place] [address] 34097- 0361 Jun, [place] [id number] [place] [address] 71667- 0313 Jun, [facility] [id number] [place] [address] 89546- 1306 Jun, [place] [id number] [place] [address] 09239- 0991 May, Routine gynecological examination Z01.419 ; Encounter for Papanicolaou smear for cervical cancer screening Z12.4 ; Screening breast examination Z12.39 ; Vaginal discharge N89.8 and Candidal vaginitis B37.3 [place] [id number] [place] [address] 11509- 9118 May, [place] [address] 25955- 2823 May, Prediabetes R73.09 ; Elevated ALT measurement R74.0 ; Elevated fasting glucose R73.01 and Palpitations R00.2 [place] [address] 91747- 6890 Feb, [place] [address] 19549- 0728 Feb, [place] [address] 49632- 4641 Feb, Generalized anxiety disorder F41.1 and Major depressive disorder, recurrent episode, moderate F33.1 [place] [address] 47377- 2294 Feb, Generalized anxiety disorder F41.1 ; Low back pain M54.5 and Insomnia G47.00 [place] [id number] [place] [address] 13193- 9989 Jan, Elevated fasting glucose R73.01 and Elevated ALT measurement R74.0 [place] [address] 55587- 6504 Jan, Generalized anxiety disorder F41.1 ; Low back pain M54.5 and Screening cholesterol level Z13.[address] 17089- 4145 04 Dec, 2015 Scoliosis M41.9 and Anxiety F41.[address] 15529- 5155 Feb, [place] [address] [place] [facility] [place] [address]- 6952 Feb, [facility] [address] [id number] [place] [address]- 7299 Apr, [facility] [place] [facility] [address] [id number] [place] [address]- 4859 March, [facility] [address] [id number] [place] [address]- 8363 March, [facility] [place] [facility] [address] [id number] [place] [address]- 7410 March, [facility] [address] [id number] [place] [address]- 6827 March, [facility] [address] [id number] [place] [address]- 4515 March, [facility] [address] [id number] [place] [address]- 1933 March, [facility] [address] [id number] [place] [address]- 7403 March, [facility] [place] [facility] [address] [id number] [place] [address]- 3853 March, [facility] [address] [id number] [place] [address]- 4747 Feb, [facility] [place] [facility] [address] [id number] [place] [address]- 7877 Feb, [facility] [place] [facility] [address] [id number] [place] [address]- 6231 Feb, [facility] [place] [facility] [address] [id number] [place] 4436 Feb, [facility] [place] [facility] [address] [id number] [place] 4610 Jan, [facility] [place] [facility] [address] [id number] [place] 1203 Jan, [facility] [place] [facility] [address] [id number] [place] [address]- 4849 Jan, [facility] [place] [facility] [address] [id number] [place] [address]- 6771 Jan, [facility] [place] [facility] [address] [id number] [place] [address]- 7346 Jan, [facility] [place] [facility] [address] [id number] [place] [address]- 8728 Jan, [facility] [place] [facility] [address] [id number] [place] [address]- 7689 Jan, [facility] [place] [facility] [address] [id number] [place] [address]- 7309 Dec, [facility] [place] [facility] [address] [id number] [place] [address]- 4897 Dec, [facility] [place] [facility] [address] [id number] [place] [address]- 0283 Dec, [facility] [place] [facility] [address] [id number] [place] [address]- 9168 Dec, [facility] [place] [facility] [address] [id number] [place] [address]- 2187 Dec, [facility] [place] [facility] [address] [id number] [place] [address]- 6570 Dec, [facility] [place] [facility] [address] [id number] [place] [address]- 0416 Nov, [facility] [place] [facility] [address] [id number] [place] [address]- 2832 Nov, [facility] [place] [facility] [address] [id number] [place] [address]- 5323 Nov, [facility] [place] [facility] [address] [id number] [place] [address]- 0815 Nov, [facility] [place] [facility] [address] [id number] [place] [address]- 1528 Nov, [facility] [address] [id number] [place] [address]- 9597 Nov, [facility] [place] [facility] [address] [id number] [place] [address]- 3851 Nov, [facility] [address] [id number] [place] [address]- 3614 Oct, [facility] [place] [facility] [address] [id number] [place] [address]- 1984 Oct, [facility] [address] [id number] [place] [address]- 5245 Oct, [facility] [place] [facility] [address] [id number] [place] [address]- 3862 Oct, [facility] [address] [id number] [place] [address]- 3558 Sep, [facility] [place] [facility] [address] [id number] [place] [address]- 1034 Sep, [facility] [place] [facility] [address] [id number] [place] [address]- 2925 Sep, [facility] [place] [facility] [address] [facility] [id number] [place] [address]- 4567 Sep, [facility] [place] [facility] [address] [id number] [place] [address]- 5425 Sep, [facility] [place] [facility] [address] [id number] [place] [address]- 6022 Sep, [facility] [place] [facility] [address] [id number] [place] [address]- 5028 Aug, [facility] [place] [facility] [address] [id number] [place] [address]- 1232 Aug, [facility] [place] [facility] [address] [id number], [place] [address]- 6800 Aug, [facility] [place] [facility] [address] [id number] [place] [address]- 8398 Aug, [facility] [place] [facility] [address] [id number] [place] [address]- 9609 Aug, [facility] [place] [facility] [address] [id number] [place] [address]- 5362 Aug, [facility] [place] [facility] [address] [id number] [place] [address]- 1324 Aug, [facility] [place] [facility] [address] [id number] [place] [address]- 7672 Jul, [facility] [place] [facility] [address] [id number] [place] [address]- 3021 Jul, [facility] [place] [facility] [address] [id number] [place] [address]- 8072 Jun, [facility] [place] [facility] [address] [id number] [place] [address]- 2446 May, [facility] [place] [facility] [address] [id number] [place] [address]- 7378 May, [facility] [place] [facility] [address] [id number] [place] [address]- 1502 May, [facility] [place] [facility] [address] [id number] [place] [address]- 8039 Apr, [facility] [place] [facility] [address] [id number] [place] [address]- 0375 Apr, [facility] [place] [facility] [address] [id number] [place] [address]- 2715 Apr, [facility] [place] [facility] [address] [id number] [place] [address]- 5797 March, [facility] [place] [facility] [address] [id number] [place] [address]- 3551 March, [facility] [place] [facility] [address] [id number] [place] [address]- 7576 17 Mar, 2013 [facility] [address] [id number] [place] [address]- 8912 25 Feb, 2013 [facility] [address] [id number] [place] [address]- 2779 22 Feb, 2013 [facility] [address] [facility] [id number] [place] [address]- 4827 15 Feb, 2013 [facility] [place] [facility] [address] [id number], [place] [address]- 7789 28 Jan, 2013 [facility] [address] [id number] [place] [address]- 8226 19 Jan, 2013 [facility] [address] [facility] [id number] [place] [address]- 9035 18 Jan, 2013 [facility] [address] [facility] [id number] [place] [address]- 8420 15 Jan, 2013 [facility] [place] [facility] [address] [id number] [place] [address]- 8291 14 Jan, 2013 [facility] [address] [id number] [place] [address]- 5771 12 Jan, 2013 [facility] [place] [facility] [address] [facility] [id number] [place] [address]- 4571 05 Jan, 2013 [facility] [place] [facility] [address] [id number], [place] [address]- 2414 28 Dec, 2012 [facility] [place] [facility] [address] [id number], [place] [address]- 5570 18 Dec, 2012 [facility] [place] [facility] [address] [id number] [place] [address]- 1374 15 Dec, 2012 [facility] [place] [facility] [address] [id number] [place] [address]- 0454 14 Dec, 2012 [facility] [place] [facility] [address] [facility] [id number] [place] [address]- 3076 05 Dec, 2012 [facility] [place] [facility] [address] [id number] [place] [address] 29 Nov, 2012 [facility] [place] [facility] [address] [id number] [place] [address] Nov, [facility] [place] [facility] [address] [id number] [place] [address] Nov, [facility] [place] [facility] [address] [id number] [place] [address] Nov, [facility] [place] [facility] [address] [id number] [place] [address] Oct, [facility] [place] [facility] [address] [id number] [place] [address] Oct, [facility] [place] [facility] [address] [id number] [place] [address] Oct, [facility] [place] [facility] [address] [id number] [place] [address] Oct, [facility] [place] [facility] [address] [id number] [place] [address] Oct, [facility] [place] [facility] [address] [id number] [place] [address] Oct, [facility] [place] [facility] [address] [id number] [place] [address] Oct, [facility] [place] [facility] [address] [id number] [place] [address] 10 Oct, 2012 [facility] [place] [facility] [address] [id number] [place] [address] 06 Oct, 2012 [facility] [place] [facility] [address] [id number] [place] [address] 16 Sep, 2012 [facility] [place] [facility] [address] [id number] [place] [address] 16 Sep, 2012 [facility] [place] [facility] [address] [id number] [place] [address] Sep, [facility] [place] [facility] [address] [id number] [place] [address] Sep, [facility] [place] [facility] [address] [id number] [place] [address] Sep, [facility] [place] [facility] [address] [id number] [place] [address] Aug, [facility] [place] [facility] [address] [id number] [place] [address] Aug, [facility] [place] [facility] [address] [id number] [place] [address] Aug, [facility] [place] [facility] [address] [id number] [place] [address] Aug, [facility] [place] [facility] [address] [id number] [place] [address] Aug, [facility] [place] [facility] [address] [id number], [place] [address] Aug, [facility] [place] [facility] [address] [id number] [place] [address] Aug, [facility] [place] [facility] [address] [facility] [id number], [place] [address] Aug, [facility] [place] [facility] [address] [id number], [place] [address] Aug, [facility] [place] [facility] [address] [id number], [place] [address] Aug, [facility] [place] [facility] [address] [id number], [place] [address] Aug, [facility] [place] [facility] [address] [id number], [place] [address] Aug, [facility] [place] [facility] [address] [facility] [id number], [place] [address] Jul, [facility] [place] [facility] [address] [id number] [place] [address] 13 Jul, 2012 [facility] [place] [facility] [address] [id number] [place] [address] 13 Jul, 2012 [facility] [place] [facility] [address] [id number] [place] [address]46 11 Jul, 2012 [facility] [place] [facility] [address] [id number] [place] [address] 10 Jul, 2012 [facility] [place] [facility] [address] [id number] [place] [address]46 08 Jul, 2012 [facility] [place] [facility] [address] [id number] [place] [address] 16 Jun, 2012 [facility] [place] [facility] [address] [id number] [place] [address] 14 Jun, 2012 [facility] [place] [facility] [address] [id number] [place] [address] 17 May, 2012 [facility] [place] [facility] [address] [id number] [place] [address] 17 May, 2012 [facility] [place] [facility] [address] [id number] [place] [address] 13 May, 2012 [facility] [place] [facility] [address] [id number] [place] [address] 12 May, 2012 [facility] [place] [facility] [address] [id number] [place] [address] 19 Apr, 2012 [facility] [place] [facility] [address] [id number] [place] [address] 19 Apr, 2012 [facility] [place] [facility] [address] [id number] [place] [address] 18 Apr, 2012 [facility] [place] [facility] [address] [id number] [place] [address] 11 Apr, 2012 [facility] [place] [facility] [address] [id number] [place] [address] Apr, [facility] [place] [facility] [address] [id number] [place] [address] March, [facility] [address] [id number] [place] [address] March, [facility] [address] [id number] [place] [address] March, [facility] [address] [id number] [place] [address] March, [facility] [address] [id number] [place] [address]99 March, [facility] [address] [id number] [place] [address] Feb, [facility] [address] [id number] [place] [address] Feb, [facility] [address] [id number] [place] [address] Jan, [facility] [address] [id number] [place] [address] Jan, [facility] [address] [id number] [place] [address] Jan, [facility] [address] [id number] [place] [address] Dec, [facility] [address] [id number] [place] [address] 164[address] Nov, [facility] [place] [facility] [address] [id number] [place] [address] Nov, [facility] [place] [facility] [address] [id number] [place] [address] Nov, [facility] [place] [facility] [address] [id number] [place] [address] Nov, [facility] [address] [id number], [place] [address] Oct, [facility] [place] [facility] [address] [id number] [place] [address] Oct, [facility] [place] [facility] [address] [id number] [place] [address] Sep, [facility] [place] [facility] [address] [id number] [place] [address] Sep, [facility] [place] [facility] [address] [id number] [place] [address] Sep, [facility] [place] [facility] [address] [id number] [place] [address] Sep, [facility] [place] [facility] [address] [id number] [place] [address] Sep, [facility] [place] [facility] [address] [id number] [place] [address] Jun, [facility] [place] [facility] [address] [id number] [place] [address] Dec, [facility] [place] [facility] [address] [id number] [place] [address] Sep, [facility] [place] [facility] [address] [id number] [place] [address] 29 Aug, 2010 [facility] [place] [facility] [address] [id number], [place] [address] Aug, [facility] [place] [facility] [address] [id number] [place] [address] Aug, [facility] [place] [facility] [address] [id number] [place] [address] Aug, [facility] [place] [facility] [address] [id number] [place] [address] Aug, [facility] [place] [facility] [address] [id number] [place] [address]609 Jun, [facility] [place] [facility] [address] [id number] [place] [address] 13 Feb, 2010 [facility] [id number] [address] Sep, [facility] [id number], [place] [address] Aug, [facility] [id number], [place] [address] Apr, [facility] [id number], [place] [address] March, IMMUNIZATIONS No Known Immunizations SOCIAL HISTORY Never Assessed REASON FOR VISIT Medication question PLAN OF CARE VITAL SIGNS MEDICATIONS Unknown Medications RESULTS No Results PROCEDURES No Known procedures INSTRUCTIONS MEDICATIONS ADMINISTERED No Known Medications MEDICAL (GENERAL) HISTORY Type Description Date Medical History Scoliosis Medical History Bipolar Surgical History right hip replacement Surgical History c-sections x4 Hospitalization History Pneumonia 2011
--- OUTSIDE RECORDS SUMMARY | 2019-02-03 10:46 | XMS REPORT ---
Author Author ALICJA Ramirez Organization [facility] [place] Address [address] [place] [address] Care Team Providers Care Congressional Representative Name Role Phone ALICJA Ramirez Unavailable PROBLEMS Type Condition ICD9-CM Code TAP13-IV Code Onset Dates Condition Status SNOMED Code Problem Lumbago with sciatica, right side M54.41 Active 534772240 Problem Tension headache G44.209 Active 555523137 Problem Other chronic pain G89.29 Active 59394718 Problem COPD with exacerbation J44.1 Active 000301852 Problem Fibromyalgia M79.7 Active 006797324 Problem Peripheral polyneuropathy G62.9 Active 24588589 Problem Chest pain, unspecified type R07.9 Active 41483674 Problem Retinitis pigmentosa H35.52 Active 04748717 Problem Cervical disc disorder at C5-C6 level with radiculopathy M50.122 Active 610854319 Problem Carpal tunnel syndrome of left wrist G56.02 Active 560535096429285 Problem Anxiety state, unspecified F41.1 Active 341355403 Problem Low back pain M54.5 Active 356918962 Problem Major depressive disorder, recurrent episode, moderate F33.1 Active 735494876 Problem Calculus of gallbladder without cholecystitis without obstruction K80.20 Active 373345561 Problem Generalized anxiety disorder F41.1 Active 70503420 Problem Panic attacks F41.0 Active 441250097 Problem Type 2 diabetes mellitus with hyperglycemia, without long-term current use of insulin E11.65 Active 46257964 Problem Insomnia G47.00 Active 480343241 Problem 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 Active 65931070 Problem Tobacco use Z72.0 Active 030650647 Problem Mixed hyperlipidemia E78.2 Active 263686569 ALLERGIES Substance Reaction Event Type Date Status Sulfamethoxazole-Trimethoprim Unknown Drug Allergy Jul, Active Codeine Sulfate Unknown Drug Allergy Jul, Active ENCOUNTERS Encounter Location Date Diagnosis [facility] [place] [id number] [place] [address] 44457- 1391 Aug, [place] [id number] [place] [address] 06527- 9199 Jul, Dependent edema R60.9 and Tobacco use Z72.0 [place] [id number] [place] [address] 56008- 7090 Jun, Cervical disc disorder at C5-C6 level with radiculopathy M50.122 [place] [id number] [place] [address] 38961- 3307 Jun, [place] [address] 33857- 9997 Jun, Pneumonia of right lung due to infectious organism, unspecified part of lung J18.9 [place] [id number] [place] [address] 52828- 5189 May, [place] [id number] [place] [address] 38816- 8608 May, Cough R05 [place] [id number] [place] [address] 41080- 6353 May, [place] [id number] [place] [address] 17055- 8758 May, COPD with exacerbation J44.1 [place] [id number] [place] [address] 32902- 9948 May, Type 2 diabetes mellitus with hyperglycemia, without long- term current use of insulin E11.65 ; Peripheral polyneuropathy G62.9 ; Cough R05 and COPD with exacerbation J44.1 [place] [id number] [place] [address] 89960- 9801 May, [place] [id number] [place] [address] 82367- 6091 May, COPD with exacerbation J44.1 and Tobacco abuse counseling Z71.6 [place] [address] [place] [address] May, [facility] [place] [id number] [place] [address] 49585- 4857 May, [facility] [id number] [place] [address] 32734 -6933 May, Numbness of left hand R20.0 and Carpal tunnel syndrome of left wrist G56.02 [place] [id number] [place] [address] 96505- 0271 May, [place] [id number] [place] [address] 06421- 2008 Apr, Type 2 diabetes mellitus with hyperglycemia, without long- term current use of insulin E11.65 [place] [id number] [place] [address] 52732- 9358 March, Anxiety state, unspecified F41.1 [place] [id number] [place] [address] 51707- 2437 Feb, [place] [id number] [place] [address] 09103- 3909 Feb, Medicare annual wellness visit, initial Z00.00 ; Type 2 diabetes mellitus with hyperglycemia, without long-term current use of insulin E11.65 ; Major depressive disorder, recurrent episode, moderate F33.1 ; Mixed hyperlipidemia E78.2 ; Fibromyalgia M79.7 ; Retinitis pigmentosa H35.52 ; Panic attacks F41.0 ; Facial skin lesion L98.9 ; Fullness of neck R22.1 and Screening for colon cancer Z12.11 [facility] [place] [address] [address] 4477 Feb, Type 2 diabetes mellitus with hyperglycemia, without long- term current use of insulin E11.65 [place] [address] [address] 8265 Jan, [place] [id number] [place] [address] 32544- 2471 Jan, Asymptomatic microscopic hematuria R31.21 ; Chest pain, unspecified type R07.9 and Generalized anxiety disorder F41.1 [facility] [place] [id number] [place] [address] 89933- 6354 Jan, [facility] [place] [id number] [place] [address] 77853- 1201 Jan, [facility] [address] 80893 -0237 Dec, [facility] [place] [address] 57468- 1613 Dec, [facility] [place] [address] 64001- 7254 Dec, [facility] [place] [address] 54590- 8222 Dec, [facility] [place] [address] 49638- 0498 14 Dec, 2017 [facility] [place] [id number] [place] [address] 69033- 9031 13 Dec, 2017 Tension headache G44.209 [place] [id number] [place] [address] 40003- 2637 09 Dec, 2017 Elevated LFTs R79.89 ; Type 2 diabetes mellitus with hyperglycemia, without long-term current use of insulin E11.65 ; Abdominal bloating R14.0 and Other fatigue R53.83 [place] [id number] [place] [address] 70650- 5729 08 Dec, 2017 Elevated ALT measurement R74.0 [place] [address] 01120- 3170 Nov, Type 2 diabetes mellitus with hyperglycemia, without long- term current use of insulin E11.65 and Mixed hyperlipidemia E78.2 [place] [address] 08588- 7576 Oct, [place] [id number] [place] [address] 28459- 8625 Oct, Elevated ALT measurement R74.[address] 56789- 8006 Oct, [place] [address] 69919- 0235 Oct, [place] [address] 99453- 1606 Oct, Breast cancer screening Z12.[address] 76600- 5056 Sep, Tension headache G44.209 ; Cervical disc disorder at C5-C6 level with radiculopathy M50.122 ; Other fatigue R53.83 ; Breast pain, left N64.4 ; Vertigo R42 and Abnormal tympanic membrane of left ear H73.92 [facility] [address] 18305 -2252 Sep, Screening breast examination Z12.[address] 53237- 2487 Sep, [address] 16487- 0843 Sep, Mixed hyperlipidemia E78.2 and Type 2 diabetes mellitus with hyperglycemia, without long-term current use of insulin E11.65 [place] [id number] [place] [address] 98318- 7960 Jul, [address] 84838- 1652 Jul, Lumbago with sciatica, right side M54.41 and Other chronic pain G89.[address] 83736- 9198 May, Type 2 diabetes mellitus with hyperglycemia, without long- term current use of insulin E11.65 ; Low back pain M54.5 ; Tobacco use Z72.0 ; Mixed hyperlipidemia E78.2 ; Lateral epicondylitis of right elbow M77.11 and 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 [facility] [place] [id number] [place] [address] 82361- 7725 Apr, [facility] [place] [id number] [place] [address] 74573- 6681 Apr, Low back pain M54.5 [facility] [place] [id number] [place] [address] 01847- 6306 Apr, Pain in thoracic spine M54.6 [facility] [id number] [place] [address] 11986 -7760 March, Lumbosacral neuritis M54.17 [facility] [place] [id number] [place] [address] 81523- 9546 March, Low back pain M54.5 [facility] [place] [id number] [place] [address] 17321- 7985 March, [facility] [place] [id number] [place] [address] 00357- 4563 March, [facility] [place] [id number] [place] [address] 65518- 3388 March, [facility] [place] [id number] [place] [address] 37930- 8851 Feb, [facility] [place] [id number] [place] [address] 77383- 2978 Feb, [facility] [place] [id number] [place] [address] 86193- 2980 Feb, [facility] [place] [id number] [place] [address] 40643- 4991 Feb, Low back pain M54.5 and Pain in thoracic spine M54.6 [facility] [place] [id number] [place] [address] 36571- 7552 Jan, Panic attacks F41.0 ; Type 2 diabetes mellitus with hyperglycemia, without long-term current use of insulin E11.65 and Other chest pain R07.89 [place] [id number] [place] [address] 53224- 4153 Jan, [facility] [place] [id number] [place] [address] 14870- 9927 Jan, Type 2 diabetes mellitus with hyperglycemia, without long- term current use of insulin E11.65 [place] [id number] [place] [address] 67872- 1442 Jan, Pain in thoracic spine M54.6 [place] [id number] [place] [address] 34669- 0238 Jan, Type 2 diabetes mellitus with hyperglycemia, without long- term current use of insulin E11.65 and Elevated liver enzymes R74.8 [place] [id number] [place] [address] 75630- 0959 Jan, [place] [id number] [place] [address] 12351- 9360 Dec, Tobacco use Z72.0 ; Prediabetes R73.09 ; Elevated liver enzymes R74.8 ; Elevated fasting glucose R73.01 ; Elevated ALT measurement R74.0 ; Pain in thoracic spine M54.6 ; Panic attacks F41.0 and Type 2 diabetes mellitus with hyperglycemia, without long-term current use of insulin E11.65 [facility] [id number] [place] [address] 12066 -4333 Jun, Abdominal pain, right upper quadrant R10.11 [place] [id number] [place] [address] 15335- 8018 Jun, [place] [id number] [place] [address] 14039- 2268 Jun, [place] [id number] [place] [address] 65570- 7082 Jun, [place] [id number] [place] [address] 61873- 6913 27 May, 2016 Routine gynecological examination Z01.419 ; Encounter for Papanicolaou smear for cervical cancer screening Z12.4 ; Screening breast examination Z12.39 ; Vaginal discharge N89.8 and Candidal vaginitis B37.3 [place] [id number] [place] [address] 30359- 9562 26 May, 2016 [place] [address] 57257- 7830 14 May, 2016 Prediabetes R73.09 ; Elevated ALT measurement R74.0 ; Elevated fasting glucose R73.01 and Palpitations R00.2 [place] [address] 97072- 5511 Feb, [place] [address] 24521- 3119 Feb, [place] [address] 00447- 8622 Feb, Generalized anxiety disorder F41.1 and Major depressive disorder, recurrent episode, moderate F33.[address] 57709- 1290 Feb, Generalized anxiety disorder F41.1 ; Low back pain M54.5 and Insomnia G47.00 [place] [id number] [place] [address] 41468- 1736 Jan, Elevated fasting glucose R73.01 and Elevated ALT measurement R74.0 [place] [address] 61431- 0429 03 Jan, 2016 Generalized anxiety disorder F41.1 ; Low back pain M54.5 and Screening cholesterol level Z13.220 [place] [id number] [place] [address] 67997- 9171 04 Dec, 2015 Scoliosis M41.9 and Anxiety F41.9 [place] [address] [place] [address]- 0100 14 Feb, 2015 [facility] [address] [id number] [place] [address]- 4092 Feb, [facility] [place] [facility] [address] [id number] [place] [address]- 5517 Apr, [facility] [address] [id number] [place] [address]- 0349 March, [facility] [place] [facility] [address] [id number] [place] [address]- 4453 March, [facility] [address] [id number] [place] [address]- 7240 March, [facility] [place] [facility] [address] [id number] [place] [address]- 7186 March, [facility] [address] [id number] [place] [address]- 3857 March, [facility] [address] [id number] [place] [address]- 8596 March, [facility] [address] [id number] [place] [address]- 5622 March, [facility] [address] [id number] [place] [address]- 0513 March, [facility] [place] [facility] [address] [id number] [place] [address]- 2367 Feb, [facility] [place] [facility] [address] [id number] [place] [address]- 5750 Feb, [facility] [place] [facility] [address] [id number] [place] [address]- 8494 Feb, [facility] [place] [facility] [address] [id number] [place] [address]- 1375 Feb, [facility] [place] [facility] [address] [id number] [place] [address]- 4502 Jan, [facility] [place] [facility] [address] [id number] [place] [address]- 2642 Jan, [facility] [place] [facility] [address] [id number] [place] [address]- 8061 Jan, [facility] [place] [facility] [address] [id number] [place] [address]- 7772 Jan, [facility] [place] [facility] [address] [id number] [place] [address]- 5912 Jan, [facility] [place] [facility] [address] [id number] [place] [address]- 4975 Jan, [facility] [place] [facility] [address] [id number] [place] [address]- 8082 Jan, [facility] [place] [facility] [address] [id number] [place] [address]- 9555 Dec, [facility] [place] [facility] [address] [id number] [place] [address]- 7413 Dec, [facility] [place] [facility] [address] [id number] [place] [address]- 8506 Dec, [facility] [place] [facility] [address] [id number] [place] [address]- 9862 Dec, [facility] [place] [facility] [address] [id number] [place] [address]- 6453 Dec, [facility] [place] [facility] [address] [id number] [place] [address]- 4996 Dec, [facility] [place] [facility] [address] [id number] [place] [address]- 1942 Nov, [facility] [place] [facility] [address] [id number] [place] [address]- 0083 Nov, [facility] [place] [facility] [address] [id number] [place] [address]- 1086 Nov, [facility] [place] [facility] [address] [id number] [place] [address]- 6367 Nov, [facility] [address] [id number] [place] [address]- 3638 Nov, [facility] [place] [facility] [address] [id number] [place] [address]- 7166 Nov, [facility] [address] [id number] [place] [address]- 2738 Nov, [facility] [place] [facility] [address] [id number] [place] [address]- 2770 Oct, [facility] [address] [id number] [place] [address]- 5516 Oct, [facility] [place] [facility] [address] [id number] [place] [address]- 7296 Oct, [facility] [address] [id number] [place] [address]- 7571 Oct, [facility] [place] [facility] [address] [id number] [place] [address]- 9497 Sep, [facility] [place] [facility] [address] [id number] [place] [address]- 6293 Sep, [facility] [place] [facility] [address] [facility] [id number] [place] [address]- 8213 Sep, [facility] [place] [facility] [address] [id number] [place] [address]- 9216 Sep, [facility] [place] [facility] [address] [id number], [place] [address]- 5082 Sep, [facility] [place] [facility] [address] [id number] [place] [address]- 0235 Sep, [facility] [place] [facility] [address] [id number] [place] [address]- 9108 Aug, [facility] [place] [facility] [address] [id number] [place] [address]- 4789 Aug, [facility] [place] [facility] [address] [id number] [place] [address]- 9595 Aug, [facility] [place] [facility] [address] [id number] [place] [address]- 9331 Aug, [facility] [place] [facility] [address] [id number] [place] [address] 2546 Aug, [facility] [place] [facility] [address] [id number] [place] [address]- 7454 Aug, [facility] [place] [facility] [address] [id number] [place] [address]- 9678 Aug, [facility] [place] [facility] [address] [id number] [place] [address]- 9934 Jul, [facility] [place] [facility] [address] [id number] [place] [address]- 2057 Jul, [facility] [place] [facility] [address] [id number] [place] [address]- 9856 Jun, [facility] [place] [facility] [address] [id number] [place] [address]- 4651 May, [facility] [place] [facility] [address] [id number] [place] [address]- 9680 May, [facility] [place] [facility] [address] [id number] [place] [address]- 9639 May, [facility] [place] [facility] [address] [id number] [place] [address]- 2331 Apr, [facility] [place] [facility] [address] [id number] [place] [address]- 1157 Apr, [facility] [place] [facility] [address] [id number] [place] [address]- 4258 Apr, [facility] [place] [facility] [address] [id number] [place] [address]- 3954 March, [facility] [place] [facility] [address] [id number] [place] [address]- 0470 March, [facility] [address] [id number] [place] [address]- 4044 17 Mar, 2013 [facility] [place] [facility] [address] [id number] [place] [address]- 9624 25 Feb, 2013 [facility] [address] [id number] [place] [address]- 9680 22 Feb, 2013 [facility] [place] [facility] [address] [id number] [place] [address]- 6471 15 Feb, 2013 [facility] [address] [id number] [place] [address]- 4380 28 Jan, 2013 [facility] [place] [facility] [address] [id number] [place] [address]- 6752 19 Jan, 2013 [facility] [place] [facility] [address] [id number] [place] [address]- 7388 18 Jan, 2013 [facility] [place] [facility] [address] [id number] [place] [address]- 5009 15 Jan, 2013 [facility] [place] [facility] [address] [id number] [place] [address]- 5007 14 Jan, 2013 [facility] [place] [facility] [address] [id number] [place] [address]- 8710 12 Jan, 2013 [facility] [place] [facility] [address] [id number], [place] [address]- 7359 05 Jan, 2013 [facility] [place] [facility] [address] [id number], [place] [address]- 7017 28 Dec, 2012 [facility] [place] [facility] [address] [id number] [place] [address]- 2485 18 Dec, 2012 [facility] [place] [facility] [address] [id number] [place] [address]- 1114 15 Dec, 2012 [facility] [place] [facility] [address] [id number] [place] [address]- 4836 14 Dec, 2012 [facility] [place] [facility] [address] [id number] [place] [address]- 2546 05 Dec, 2012 [facility] [address] [id number] [place] [address]- 4968 Nov, [facility] [address] [id number] [place] [address]- 2546 Nov, [facility] [address] [id number] [place] [address]- 5936 Nov, [facility] [address] [id number] [place] [address] Nov, [facility] [address] [id number] [place] [address] Oct, [facility] [address] [id number] [place] [address] Oct, [facility] [address] [id number] [place] [address] Oct, [facility] [address] [id number] [place] [address] 18 Oct, 2012 [facility] [address] [id number] [place] [address] Oct, [facility] [address] [id number] [place] [address] Oct, [facility] [address] [id number] [place] [address] 10 Oct, 2012 [facility] [address] [id number] [place] [address] 10 Oct, 2012 [facility] [place] [facility] [address] [id number] [place] [address] 06 Oct, 2012 [facility] [place] [facility] [address] [id number] [place] [address] 16 Sep, 2012 [facility] [place] [facility] [address] [id number] [place] [address] Sep, [facility] [place] [facility] [address] [id number] [place] [address] Sep, [facility] [place] [facility] [address] [id number] [place] [address] Sep, [facility] [place] [facility] [address] [id number] [place] [address] Sep, [facility] [place] [facility] [address] [id number] [place] [address] Aug, [facility] [place] [facility] [address] [id number] [place] [address] Aug, [facility] [place] [facility] [address] [id number] [place] [address] Aug, [facility] [place] [facility] [address] [id number] [place] [address] Aug, [facility] [place] [facility] [address] [id number], [place] [address] Aug, [facility] [place] [facility] [address] [id number] [place] [address] Aug, [facility] [place] [facility] [address] [id number], [place] [address] Aug, [facility] [place] [facility] [address] [id number], [place] [address] Aug, [facility] [place] [facility] [address] [id number], [place] [address] Aug, [facility] [place] [facility] [address] [id number] [place] [address] Aug, [facility] [place] [facility] [address] [id number][place] [address] Aug, [facility] [place] [facility] [address] [id number] [address] Aug, [facility] [place] [facility] [address] [id number] [place] [address]- [address] 17 Jul, 2012 [facility] [place] [facility] [address] [id number] [place] [address]- [address] 13 Jul, 2012 [facility] [place] [facility] [address] [id number] [place] [address] 13 Jul, 2012 [facility] [place] [facility] [address] [id number] [place] [address] 11 Jul, 2012 [facility] [place] [facility] [address] [id number] [place] [address] 10 Jul, 2012 [facility] [place] [facility] [address] [id number] [place] [address] 08 Jul, 2012 [facility] [place] [facility] [address] [id number] [place] [address] 16 Jun, 2012 [facility] [place] [facility] [address] [id number] [place] [address] 14 Jun, 2012 [facility] [place] [facility] [address] [id number] [place] [address] 17 May, 2012 [facility] [place] [facility] [address] [id number] [place] [address] 17 May, 2012 [facility] [place] [facility] [address] [id number] [place] [address] 13 May, 2012 [facility] [place] [facility] [address] [id number] [place] [address] 12 May, 2012 [facility] [place] [facility] [address] [id number] [place] [address] 19 Apr, 2012 [facility] [place] [facility] [address] [id number] [place] [address] 19 Apr, 2012 [facility] [place] [facility] [address] [id number] [place] [address] 18 Apr, 2012 [facility] [place] [facility] [address] [id number] [place] [address] 11 Apr, 2012 [facility] [place] [facility] [address] [id number] [place] [address] Apr, [facility] [address] [id number] [place] [address] March, [facility] [place] [facility] [address] [id number] [place] [address] March, [facility] [place] [facility] [address] [id number] [place] [address] March, [facility] [address] [id number] [place] [address] March, [facility] [place] [facility] [address] [id number] [place] [address] March, [facility] [address] [id number] [place] [address] Feb, [facility] [address] [id number] [place] [address] Feb, [facility] [address] [id number] [place] [address] Jan, [facility] [place] [facility] [address] [id number] [place] [address] Jan, [facility] [place] [facility] [address] [id number] [place] [address] Jan, [facility] [place] [facility] [address] [id number] [place] [address] Dec, [facility] [place] [facility] [address] [id number] [place] [address] Nov, [facility] [place] [facility] [address] [id number] [place] [address] Nov, [facility] [place] [facility] [address] [id number] [place] [address] Nov, [facility] [place] [facility] [address] [id number], [place] [address] Nov, [facility] [place] [facility] [address] [id number] [place] [address] Oct, [facility] [place] [facility] [address] [id number] [place] [address] Oct, [facility] [place] [facility] [address] [id number] [place] [address] Sep, [facility] [place] [facility] [address] [id number] [place] [address] Sep, [facility] [place] [facility] [address] [id number] [place] [address] Sep, [facility] [place] [facility] [address] [id number] [place] [address] Sep, [facility] [place] [facility] [address] [id number] [place] [address] Sep, [facility] [place] [facility] [address] [id number] [place] [address] Jun, [facility] [place] [facility] [address] [id number] [place] [address] Dec, [facility] [place] [facility] [address] [id number] [place] [address] Sep, [facility] [place] [facility] [address] [id number], [place] [address] Aug, [facility] [place] [facility] [address] [id number], [place] [address] Aug, [facility] [place] [facility] [address] [id number] [place] [address] Aug, [facility] [place] [facility] [address] [id number] [place] [address] Aug, [facility] [place] [facility] [address] [id number] [place] [address] Aug, [facility] [place] [facility] [address] [facility] [id number], [place] [address] Jun, [facility] [place] [address] [id number] [id number] Feb, [facility] [place] [id number] [id number] Sep, [facility] [place] [id number], [place] [address] Aug, [facility] [place] [id number], [place] [address] Apr, [place] [address] [id number] [place] [address] March, IMMUNIZATIONS No Known Immunizations SOCIAL HISTORY Never Assessed REASON FOR VISIT Swelling(leg) RT leg-mpolshakMA PLAN OF CARE Activity Details Follow Up prn Reason: VITAL SIGNS Height 61 in 2018-07-30 Weight 170.9 lbs 2018-07-30 Temperature 97.0 degrees Fahrenheit 2018-07-30 Heart Rate 80 bpm 2018-07-30 Respiratory Rate 18 2018-07-30 BMI 32.29 kg/m2 2018-07-30 Blood pressure systolic 122 mmHg 2018-07-30 Blood pressure diastolic 72 mmHg 2018-07-30 MEDICATIONS Medication Instructions Dosage Frequency Start Date End Date Duration Status Blood Glucose Test - and Lancets ICD10- E11.65 2 times a day- 3 times weekly as directed Jan, Active Blood Glucose Monitor System w/Device ICD10- E11.65 2 times a day -3 times weekly. as directed Jan, Active Metformin HCl 1000 MG Orally Twice a day 1 tablet with a meal 12h 90 days Active Albuterol Sulfate (2.5 MG/3ML) 0.083% Inhalation every 6 hrs for COPD exacerbation 3 ml as needed May, Active Metoprolol Succinate ER 50 MG Orally Once a day 1 tablet 24h Active Nebulizer/Tubing/Mouthpiece - Use as directed with Albuterol Sulfate Inhalation solution May, lifetime Active Cyclobenzaprine HCl 10 mg Orally Three times a day 1 tablet as needed 8h 30 Active Rosuvastatin Calcium 20 mg TAKE ONE TABLET BY MOUTH ONCE DAILY 30 Active RESULTS No Results PROCEDURES No Known procedures INSTRUCTIONS MEDICATIONS ADMINISTERED No Known Medications MEDICAL (GENERAL) HISTORY Type Description Date Medical History Scoliosis Medical History Bipolar Surgical History right hip replacement Surgical History c-sections x4 Hospitalization History Pneumonia 2012
--- OUTSIDE RECORDS SUMMARY | 2019-02-03 10:47 | XMS REPORT ---
Author Author ASHOK ROMY [facility] [address] Address [address] [place] [address] Care Team Providers Care Machine Bunch Maker Name Role Phone PHILLIP PULIDOHANY Unavailable PROBLEMS Type Condition ICD9-CM Code PBQ35-VT Code Onset Dates Condition Status SNOMED Code Problem Lumbago with sciatica, right side M54.41 Active 406928227 Problem Tension headache G44.209 Active 440851190 Problem Other chronic pain G89.29 Active 20154074 Problem COPD with exacerbation J44.1 Active 937223714 Problem Fibromyalgia M79.7 Active 175745101 Problem Peripheral polyneuropathy G62.9 Active 50570837 Problem Chest pain, unspecified type R07.9 Active 43317959 Problem Retinitis pigmentosa H35.52 Active 91840778 Problem Cervical disc disorder at C5-C6 level with radiculopathy M50.122 Active 237806166 Problem Carpal tunnel syndrome of left wrist G56.02 Active [id number] Problem Anxiety state, unspecified F41.1 Active 512464499 Problem Low back pain M54.5 Active 223960367 Problem Major depressive disorder, recurrent episode, moderate F33.1 Active 163734022 Problem Calculus of gallbladder without cholecystitis without obstruction K80.20 Active 598921975 Problem Generalized anxiety disorder F41.1 Active 32337487 Problem Panic attacks F41.0 Active 881166485 Problem Type 2 diabetes mellitus with hyperglycemia, without long-term current use of insulin E11.65 Active 68784182 Problem Insomnia G47.00 Active 894920004 Problem 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 [id number] [place] [address] 86205- 4728 Jul, Dependent edema R60.9 and Tobacco use Z72.0 [place] [address] 39385- 1929 Jun, Cervical disc disorder at C5-C6 level with radiculopathy M50.122 [place] [address] 41313- 1039 Jun, [place] [id number] [place] [address] 56110- 1491 Jun, Pneumonia of right lung due to infectious organism, unspecified part of lung J18.9 [place] [address] 16822- 3675 May, [place] [id number] [place] [address] 94893- 6222 May, Cough R05 [place] [id number] [place] [address] 57454- 5924 May, [place] [id number] [place] [address] 80396- 6644 May, COPD with exacerbation J44.1 [place] [id number] [place] [address] 88370- 6436 May, Type 2 diabetes mellitus with hyperglycemia, without long- term current use of insulin E11.65 ; Peripheral polyneuropathy G62.9 ; Cough R05 and COPD with exacerbation J44.1 [place] [id number] [place] [address] 05528- 7061 May, [place] [address] 66463- 0070 May, COPD with exacerbation J44.1 and Tobacco abuse counseling Z71.6 [place] [id number] [place] [address] 00778- 0677 May, [place] [address] [place] [address]- 8806 May, [facility] [address] [place] [address] 28398 -2492 May, Numbness of left hand R20.0 and Carpal tunnel syndrome of left wrist G56.02 [place] [id number] [place] [address] 41585- 2669 May, [place] [id number] [place] [address] 27785- 2504 Apr, Type 2 diabetes mellitus with hyperglycemia, without long- term current use of insulin E11.65 [place] [address] 30071- 1166 March, Anxiety state, unspecified F41.1 [place] [id number] [place] [address] 84697- 7453 Feb, [place] [id number] [place] [address] 04122- 6475 Feb, Medicare annual wellness visit, initial Z00.00 ; Type 2 diabetes mellitus with hyperglycemia, without long-term current use of insulin E11.65 ; Major depressive disorder, recurrent episode, moderate F33.1 ; Mixed hyperlipidemia E78.2 ; Fibromyalgia M79.7 ; Retinitis pigmentosa H35.52 ; Panic attacks F41.0 ; Facial skin lesion L98.9 ; Fullness of neck R22.1 and Screening for colon cancer Z12.11 [place] [address] [place] [address] 33996- 6974 Feb, Type 2 diabetes mellitus with hyperglycemia, without long- term current use of insulin E11.65 [place] [id number] [place] [address] 41570- 9100 Jan, [place] [id number] [place] [address] 43816- 1266 Jan, Asymptomatic microscopic hematuria R31.21 ; Chest pain, unspecified type R07.9 and Generalized anxiety disorder F41.1 [place] [address], [place] [address] 75[address] Jan, [facility] [id number] [place] [address] 40987- 2446 Jan, [facility] [address] [place] [address] 69231 -7454 Dec, [facility] [id number] [place] [address] 62720- 0328 Dec, [facility] [id number] [place] [address] 63096- 3027 Dec, [facility] [id number] [place] [address] 61539- 9233 Dec, [facility] [id number] [place] [address] 48651- 9837 Dec, [facility] [id number] [place] [address] 55932- 9293 Dec, Tension headache G44.209 [facility] [id number] [place] [address] 20917- 1390 09 Dec, 2017 Elevated LFTs R79.89 ; Type 2 diabetes mellitus with hyperglycemia, without long-term current use of insulin E11.65 ; Abdominal bloating R14.0 and Other fatigue R53.83 [facility] [address] [place] [address] 98099- 8053 Dec, Elevated ALT measurement R74.0 [facility] [address] [place] [address] 49702- 7010 Nov, Type 2 diabetes mellitus with hyperglycemia, without long- term current use of insulin E11.65 and Mixed hyperlipidemia E78.2 [facility] [address] [place] [address] 24453- 2495 Oct, [facility] [id number] [place] [address] 54854- 6664 Oct, Elevated ALT measurement R74.0 [place] [address] 77962- 8291 Oct, [place] [id number]- 6409 Oct, [place] [address] 79045- 1196 Oct, Breast cancer screening Z12.[address] 09529- 4887 Sep, Tension headache G44.209 ; Cervical disc disorder at C5-C6 level with radiculopathy M50.122 ; Other fatigue R53.83 ; Breast pain, left N64.4 ; Vertigo R42 and Abnormal tympanic membrane of left ear H73.92 [facility] [address] [address]18 -3038 Sep, Screening breast examination Z12.[address] 70615- 1030 Sep, [address] 38695- 7734 Sep, Mixed hyperlipidemia E78.2 and Type 2 diabetes mellitus with hyperglycemia, without long-term current use of insulin E11.[address] 83636- 6670 Jul, [place] [address] 70414- 0855 Jul, Lumbago with sciatica, right side M54.41 and Other chronic pain G89.[address] 20748- 5917 May, Type 2 diabetes mellitus with hyperglycemia, without long- term current use of insulin E11.65 ; Low back pain M54.5 ; Tobacco use Z72.0 ; Mixed hyperlipidemia E78.2 ; Lateral epicondylitis of right elbow M77.11 and 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 [address], [place] [address]- 7164 Apr, [facility] [id number] [place] [address] 71174- 0711 Apr, Low back pain M54.5 [facility] [id number] [place] [address] 29144- 7234 Apr, Pain in thoracic spine M54.6 [facility] [id number] [place] [address] 67337 -5672 March, Lumbosacral neuritis M54.17 [facility] [id number] [place] [address] 80108- 3793 March, Low back pain M54.5 [facility] [id number] [place] [address] 75237- 1353 March, [facility] [id number] [place] [address] 96399- 5972 March, [facility] [id number] [place] [address] 71164- 8033 March, [facility] [id number] [place] [address] 75935- 6850 Feb, [facility] [address] [place] [address] 77496- 0288 Feb, [facility] [id number] [place] [address] 60127- 8525 Feb, [facility] [address] [place] [address] 91582- 5811 Feb, Low back pain M54.5 and Pain in thoracic spine M54.6 [facility] [address], [place] [address]- 6534 Jan, Panic attacks F41.0 ; Type 2 diabetes mellitus with hyperglycemia, without long-term current use of insulin E11.65 and Other chest pain R07.89 [facility] [address] [place] [address] 65422- 2338 Jan, [facility] [id number] [place] [address] 47094- 5888 Jan, Type 2 diabetes mellitus with hyperglycemia, without long- term current use of insulin E11.65 [facility] [id number] [place] [address] 40157- 3574 Jan, Pain in thoracic spine M54.6 [facility] [id number] [place] [address] 11191- 4336 Jan, Type 2 diabetes mellitus with hyperglycemia, without long- term current use of insulin E11.65 and Elevated liver enzymes R74.8 [place] [id number] [place] [address] 26830- 8601 Jan, [place] [id number] [place] [address] 56601- 5833 Dec, Tobacco use Z72.0 ; Prediabetes R73.09 ; Elevated liver enzymes R74.8 ; Elevated fasting glucose R73.01 ; Elevated ALT measurement R74.0 ; Pain in thoracic spine M54.6 ; Panic attacks F41.0 and Type 2 diabetes mellitus with hyperglycemia, without long-term current use of insulin E11.65 [facility] [address] [place] [address] 94347 -8245 Jun, Abdominal pain, right upper quadrant R10.11 [facility] [id number] [place] [address] 07167- 4626 Jun, [place] [id number] [place] [address] 87179- 5698 Jun, [place] [id number] [place] [address] 71859- 2336 Jun, [place] [id number] [place] [address] 19812- 7225 May, Routine gynecological examination Z01.419 ; Encounter for Papanicolaou smear for cervical cancer screening Z12.4 ; Screening breast examination Z12.39 ; Vaginal discharge N89.8 and Candidal vaginitis B37.3 [place] [id number] [place] [address] 51990- 1217 26 May, 2016 [place] [address] 42648- 3584 14 May, 2016 Prediabetes R73.09 ; Elevated ALT measurement R74.0 ; Elevated fasting glucose R73.01 and Palpitations R00.2 [place] [address] 60825- 4616 Feb, [place] [address] 90484- 6461 Feb, [address] 70940- 4278 Feb, Generalized anxiety disorder F41.1 and Major depressive disorder, recurrent episode, moderate F33.1 [place] [address] 35849- 2299 Feb, Generalized anxiety disorder F41.1 ; Low back pain M54.5 and Insomnia G47.00 [place] [id number] [place] [address] 87879- 3325 Jan, Elevated fasting glucose R73.01 and Elevated ALT measurement R74.0 [place] [address] 73571- 9800 Jan, Generalized anxiety disorder F41.1 ; Low back pain M54.5 and Screening cholesterol level Z13.[address] 23836- 3995 04 Dec, 2015 Scoliosis M41.9 and Anxiety F41.[address] 27994- 4647 Feb, [place] [address] [place] [address]- 8608 Feb, [facility] [address] [id number] [place] [address]- 4038 Apr, [facility] [place] [facility] [address] [id number] [place] [address]- 0490 March, [facility] [address] [id number] [place] [address]- 3599 March, [facility] [place] [facility] [address] [id number] [place] [address]- 4543 March, [facility] [address] [id number] [place] [address]- 7477 March, [facility] [address] [id number] [place] [address]- 2764 March, [facility] [address] [id number] [place] [address]- 0015 March, [facility] [address] [id number] [place] [address]- 1965 March, [facility] [address] [id number] [place] [address]- 6117 March, [facility] [address] [id number] [place] [address]- 6106 Feb, [facility] [place] [facility] [address] [id number] [place] [address]- 7617 Feb, [facility] [place] [facility] [address] [id number] [place] [address]- 0208 Feb, [facility] [place] [facility] [address] [id number] [place] [address]- 8666 Feb, [facility] [place] [facility] [address] [id number] [place] 0024 Jan, [facility] [place] [facility] [address] [id number] [place] [address]- 6872 Jan, [facility] [place] [facility] [address] [id number] [place] [address]- 1139 Jan, [facility] [place] [facility] [address] [id number] [place] [address]- 9025 Jan, [facility] [place] [facility] [address] [id number] [place] [address]- 6302 Jan, [facility] [place] [facility] [address] [id number] [place] [address]- 8115 Jan, [facility] [place] [facility] [address] [id number] [place] [address]- 3840 Jan, [facility] [place] [facility] [address] [id number] [place] [address]- 3941 Dec, [facility] [place] [facility] [address] [facility] [id number] [place] [address]- 8085 Dec, [facility] [place] [facility] [address] [id number] [place] [address]- 1353 Dec, [facility] [place] [facility] [address] [id number] [place] [address]- 3551 Dec, [facility] [place] [facility] [address] [facility] [id number] [place] [address]- 4603 Dec, [facility] [place] [facility] [address] [facility] [id number] [place] [address]- 7039 Dec, [facility] [place] [facility] [address] [id number] [place] [address]- 1488 Nov, [facility] [place] [facility] [address] [id number] [place] [address]- 2191 Nov, [facility] [place] [facility] [address] [id number] [place] [address]- 2358 Nov, [facility] [place] [facility] [address] [id number] [place] [address]- 8493 Nov, [facility] [place] [facility] [address] [id number], [place] [address]- 6915 Nov, [facility] [address] [id number] [place] [address]- 0531 Nov, [facility] [place] [facility] [address] [facility] [id number] [place] [address]- 6841 Nov, [facility] [place] [facility] [address] [facility] [id number] [place] [address]- 2531 Oct, [facility] [place] [facility] [address] [id number] [place] [address]- 8069 Oct, [facility] [place] [facility] [address] [id number] [place] [address]- 2151 Oct, [facility] [place] [facility] [address] [facility] [id number] [place] [address]- 7123 Oct, [facility] [place] [facility] [address] [id number] [place] [address]- 6592 Sep, [facility] [place] [facility] [address] [facility] [id number] [place] [address]- 5237 Sep, [facility] [place] [facility] [address] [facility] [id number] [place] [address]- 7833 Sep, [facility] [place] [facility] [address] [facility] [id number] [place] [address]- 4675 Sep, [facility] [place] [facility] [address] [facility] [id number], [place] [address]- 2222 Sep, [facility] [place] [facility] [address] [facility] [id number], [place] [address]- 9114 Sep, [facility] [place] [facility] [address] [id number] [place] [address]- 6514 Aug, [facility] [place] [facility] [address] [facility] [id number] [place] [address]- 3328 Aug, [facility] [place] [facility] [address] [facility] [id number], [place] [address]- 4031 Aug, [facility] [place] [facility] [address] [id number] [place] [address]- 7793 18 Aug, 2013 [facility] [place] [facility] [address] [id number] [place] [address]- 3208 Aug, [facility] [place] [facility] [address] [id number] [place] [address]- 2546 Aug, [facility] [place] [facility] [address] [id number] [place] [address]- 7485 Aug, [facility] [place] [facility] [address] [id number] [place] [address]- 8472 Jul, [facility] [place] [facility] [address] [id number] [place] [address]- 5978 Jul, [facility] [place] [facility] [address] [id number] [place] [address]- 4839 Jun, [facility] [place] [facility] [address] [id number] [place] [address]- 9719 May, [facility] [place] [facility] [address] [id number] [place] [address]- 5475 May, [facility] [place] [facility] [address] [id number] [place] [address]- 5848 May, [facility] [place] [facility] [address] [id number] [place] [address]- 4835 Apr, [facility] [place] [facility] [address] [id number] [place] [address]- 3800 Apr, [facility] [place] [facility] [address] [id number] [place] [address]- 8125 Apr, [facility] [place] [facility] [address] [id number] [place] [address]- 4986 March, [facility] [place] [facility] [address] [id number] [place] [address]- 3246 March, [facility] [place] [facility] [address] [id number] [place] [address]- 0668 17 Mar, 2013 [facility] [address] [id number] [place] [address]- 4909 25 Feb, 2013 [facility] [place] [facility] [address] [id number] [place] [address]- 6556 22 Feb, 2013 [facility] [place] [facility] [address] [id number] [place] 4935 15 Feb, 2013 [facility] [place] [facility] [address] [id number] [place] [address]- 3609 28 Jan, 2013 [facility] [place] [facility] [address] [id number] [place] [address]- 1196 19 Jan, 2013 [facility] [place] [facility] [address] [id number] [place] [address]- 7679 18 Jan, 2013 [facility] [place] [facility] [address] [id number] [place] [address]- 8329 15 Jan, 2013 [facility] [place] [facility] [address] [id number] [place] [address]- 9844 14 Jan, 2013 [facility] [place] [facility] [address] [id number] [place] [address]- 7778 12 Jan, 2013 [facility] [place] [facility] [address] [id number] [place] [address]- 7569 05 Jan, 2013 [facility] [place] [facility] [address] [id number] [place] [address]- 6068 28 Dec, 2012 [facility] [place] [facility] [address] [id number] [place] [address]- 1648 18 Dec, 2012 [facility] [place] [facility] [address] [id number] [place] [address]- 4670 15 Dec, 2012 [facility] [place] [facility] [address] [id number] [place] [address]- 8535 14 Dec, 2012 [facility] [place] [facility] [address] [id number] [place] [address]- 6876 05 Dec, 2012 [facility] [place] [facility] [address] [id number] [place] [address]- 8142 29 Nov, 2012 [facility] [address] [id number] [place] [address]- 6598 Nov, [facility] [address] [id number] [place] [address]- 9126 Nov, [facility] [address] [id number] [place] [address]- 6016 Nov, [facility] [address] [id number] [place] [address]- 9723 Oct, [facility] [address] [id number] [place] [address] Oct, [facility] [address] [id number] [place] [address] Oct, [facility] [address] [id number] [place] [address] 18 Oct, 2012 [facility] [address] [id number] [place] [address] Oct, [facility] [address] [id number] [place] [address] Oct, [facility] [address] [id number] [place] [address] Oct, [facility] [address] [id number] [place] [address] 10 Oct, 2012 [facility] [address] [id number] [place] [address] 06 Oct, 2012 [facility] [place] [facility] [address] [id number] [place] [address] 16 Sep, 2012 [facility] [address] [id number] [place] [address] 16 Sep, 2012 [facility] [address] [id number] [place] [address] Sep, [facility] [place] [facility] [address] [id number] [place] [address] Sep, [facility] [place] [facility] [address] [id number] [place] [address] Sep, [facility] [place] [facility] [address] [id number] [place] [address] Aug, [facility] [place] [facility] [address] [id number] [place] [address] Aug, [facility] [place] [facility] [address] [id number] [place] [address] Aug, [facility] [place] [facility] [address] [id number] [place] [address] Aug, [facility] [place] [facility] [address] [id number] [place] [address] 16 Aug, 2012 [facility] [place] [facility] [address] [id number], [place] [address] Aug, [facility] [place] [facility] [address] [id number] [place] [address] Aug, [facility] [place] [facility] [address] [facility] [id number], [place] [address] Aug, [facility] [place] [facility] [address] [id number], [place] [address] Aug, [facility] [place] [facility] [address] [id number], [place] [address] Aug, [facility] [place] [facility] [address] [id number], [place] [address] Aug, [facility] [place] [facility] [address] [id number], [place] [address] Aug, [facility] [place] [facility] [address] [facility] [id number], [place] [address] Jul, [facility] [place] [facility] [address] [id number], [place] [address] 13 Jul, 2012 [facility] [place] [facility] [address] [id number] [place] [address] 13 Jul, 2012 [facility] [place] [facility] [address] [id number] [place] [address] 11 Jul, 2012 [facility] [place] [facility] [address] [id number] [place] [address] 10 Jul, 2012 [facility] [place] [facility] [address] [id number] [place] [address] 08 Jul, 2012 [facility] [place] [facility] [address] [id number] [place] [address] 16 Jun, 2012 [facility] [place] [facility] [address] [id number] [place] [address] 14 Jun, 2012 [facility] [place] [facility] [address] [id number] [place] [address] 17 May, 2012 [facility] [place] [facility] [address] [id number] [place] [address] 17 May, 2012 [facility] [place] [facility] [address] [id number] [place] [address] 13 May, 2012 [facility] [place] [facility] [address] [facility] [id number] [place] [address] 12 May, 2012 [facility] [place] [facility] [address] [id number] [place] [address] 19 Apr, 2012 [facility] [place] [facility] [address] [id number], [place] [address] 19 Apr, 2012 [facility] [place] [facility] [address] [id number] [place] [address] 18 Apr, 2012 [facility] [place] [facility] [address] [id number] [place] [address] 11 Apr, 2012 [facility] [place] [facility] [address] [facility] [id number] [place] [address] 08 Apr, 2012 [facility] [place] [facility] [address] [id number] [place] [address] March, [facility] [place] [facility] [address] [id number] [place] [address] March, [facility] [place] [facility] [address] [id number] [place] [address] March, [facility] [place] [facility] [address] [id number] [place] [address] March, [facility] [place] [facility] [address] [id number] [place] [address] March, [facility] [place] [facility] [address] [id number] [place] [address] Feb, [facility] [place] [facility] [address] [id number] [place] [address] Feb, [facility] [place] [facility] [address] [id number] [place] [address] Jan, [facility] [place] [facility] [address] [id number] [place] [address] Jan, [facility] [place] [facility] [address] [id number] [place] [address] Jan, [facility] [place] [facility] [address] [id number] [place] [address] Dec, [facility] [place] [facility] [address] [id number] [place] [address] Nov, [facility] [place] [facility] [address] [id number] [place] [address] Nov, [facility] [place] [facility] [address] [id number] [place] [address] Nov, [facility] [place] [facility] [address] [id number] [place] [address] Nov, [facility] [place] [facility] [address] [id number] [place] [address] Oct, [facility] [place] [facility] [address] [id number] [place] [address] Oct, [facility] [place] [facility] [address] [id number] [place] [address] Sep, [facility] [place] [facility] [address] [id number] [place] [address] Sep, [facility] [place] [facility] [address] [id number] [place] [address] Sep, [facility] [place] [facility] [address] [id number] [place] [address] Sep, [facility] [place] [facility] [address] [id number] [place] [address] Sep, [facility] [place] [facility] [address] [id number] [place] [address] Jun, [facility] [place] [facility] [address] [id number], [place] [address] Dec, [facility] [place] [facility] [address] [id number] [place] [address] Sep, [facility] [place] [facility] [address] [id number] [place] [address] 29 Aug, 2010 [facility] [place] [facility] [address] [id number], [place] [address] Aug, [facility] [place] [facility] [address] [id number], [place] [address] Aug, [facility] [place] [facility] [address] [id number] [place] [address] Aug, [facility] [place] [facility] [address] [facility] [id number], [place] [address] Aug, [facility] [place] [facility] [address] [id number], [place] [address] Jun, [facility] [place] [facility] [address] [facility] [id number] [place] [address] Feb, [facility] [address] [facility] [id number][place] Sep, [facility] [address] [facility] [id number], [place] [address] Aug, [facility] [address] [facility] [id number], [place] [address] Apr, [facility] [address] [facility] [id number][place] [id number] [address] March, IMMUNIZATIONS No Known Immunizations SOCIAL HISTORY Never Assessed REASON FOR VISIT Lab review -- osvaldo lieberman, needing refill on medications PLAN OF CARE Activity Details Follow Up 6 Weeks Reason:DMII VITAL SIGNS Height 61 in 2018-07-04 Weight 171.0 lbs 2018-07-04 Temperature 98.0 degrees Fahrenheit 2018-07-04 Heart Rate 78 bpm 2018-07-04 Respiratory Rate 18 2018-07-04 BMI 32.31 kg/m2 2018-07-04 Blood pressure systolic 122 mmHg 2018-07-04 Blood pressure diastolic 78 mmHg 2018-07-04 MEDICATIONS Medication Instructions Dosage Frequency Start Date End Date Duration Status Rosuvastatin Calcium 20 mg TAKE ONE TABLET BY MOUTH ONCE DAILY 30 Active Blood Glucose Monitor System w/Device ICD10- E11.65 2 times a day -3 times weekly. as directed Jan, Active Blood Glucose Test - and Lancets ICD10- E11.65 2 times a day- 3 times weekly as directed Jan, Active Nebulizer/Tubing/Mouthpiece - Use as directed with Albuterol Sulfate Inhalation solution May, lifetime Active Albuterol Sulfate (2.5 MG/3ML) 0.083% Inhalation every 6 hrs for COPD exacerbation 3 ml as needed May, Active Cyclobenzaprine HCl 10 MG Orally Three times a day 1 tablet as needed 8h Active Metoprolol Succinate ER 50 MG Orally Once a day 1 tablet 24h Active Metformin HCl 1000 MG Orally Twice a day 1 tablet with a meal 12h 90 days Active Naproxen 500 MG Orally Twice a day 1 tablet 12h Not-Taking RESULTS No Results PROCEDURES No Known procedures INSTRUCTIONS MEDICATIONS ADMINISTERED No Known Medications MEDICAL (GENERAL) HISTORY Type Description Date Medical History Scoliosis Medical History Bipolar Surgical History right hip replacement Surgical History c-sections x4 Hospitalization History Pneumonia 2012
--- OUTSIDE RECORDS SUMMARY | 2019-02-03 10:48 | XMS REPORT ---
Author Author CHLOE MCGOVERN [facility] Address [address] [place] [address] Care Team Providers Care Cisco Consultant Name Role Phone MARJORIE MCGOVENRTA Unavailable PROBLEMS Type Condition ICD9-CM Code GAY41-LC Code Onset Dates Condition Status SNOMED Code Problem Lumbago with sciatica, right side M54.41 Active 741809858 Problem Tension headache G44.209 Active 811434813 Problem Other chronic pain G89.29 Active 42238558 Problem COPD with exacerbation J44.1 Active 131805802 Problem Fibromyalgia M79.7 Active 910916771 Problem Peripheral polyneuropathy G62.9 Active 92012289 Problem Chest pain, unspecified type R07.9 Active 23939293 Problem Retinitis pigmentosa H35.52 Active 48951534 Problem Cervical disc disorder at C5-C6 level with radiculopathy M50.122 Active 071923014 Problem Carpal tunnel syndrome of left wrist G56.02 Active [id number] Problem Anxiety state, unspecified F41.1 Active 288578403 Problem Low back pain M54.5 Active 171978339 Problem Major depressive disorder, recurrent episode, moderate F33.1 Active 825172770 Problem Calculus of gallbladder without cholecystitis without obstruction K80.20 Active 910706541 Problem Generalized anxiety disorder F41.1 Active 12705500 Problem Panic attacks F41.0 Active 769075658 Problem Type 2 diabetes mellitus with hyperglycemia, without long-term current use of insulin E11.65 Active 84024110 Problem Insomnia G47.00 Active 330398925 Problem 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 Active 60551100 Problem Tobacco use Z72.0 Active 554332529 Problem Mixed hyperlipidemia E78.2 Active 414272904 ALLERGIES Substance Reaction Event Type Date Status Sulfamethoxazole-Trimethoprim Unknown Drug Allergy Jun, Active Codeine Sulfate Unknown Drug Allergy Jun, Active ENCOUNTERS Encounter Location Date Diagnosis [facility] [id number] [place] [address] 71620- 9258 Jun, Cervical disc disorder at C5-C6 level with radiculopathy M50.122 [facility] [id number] [place] [address] 72211- 8111 Jun, [facility] [id number] [place] [address] 06236- 6051 Jun, Pneumonia of right lung due to infectious organism, unspecified part of lung J18.9 [facility] [id number] [place] [address] 76013- 0096 May, [facility] [id number] [place] [address] 52566- 1550 May, Cough R05 [place] [id number] [place] [address] 36545- 1954 May, [facility] [id number] [place] [address] 30134- 2318 May, COPD with exacerbation J44.1 [facility] [id number] [place] [address] 77256- 2085 May, Type 2 diabetes mellitus with hyperglycemia, without long- term current use of insulin E11.65 ; Peripheral polyneuropathy G62.9 ; Cough R05 and COPD with exacerbation J44.1 [facility] [id number] [place] [address] 35603- 4167 May, [facility] [id number] [place] [address] 90963- 4713 May, COPD with exacerbation J44.1 and Tobacco abuse counseling Z71.6 [facility] [id number] [place] [address] 99436- 6041 May, [facility] [id number] [place] [address] 90709- 0179 May, [facility] [id number] [place] [address] 75634 -7488 May, Numbness of left hand R20.0 and Carpal tunnel syndrome of left wrist G56.02 [place] [id number] [place] [address] 28539- 7247 May, [place] [id number] [place] [address] 09880- 8522 Apr, Type 2 diabetes mellitus with hyperglycemia, without long- term current use of insulin E11.65 [place] [id number] [place] [address] 15991- 4150 March, Anxiety state, unspecified F41.1 [address] [id number] [place] [address] 12400- 6930 Feb, [place] [id number] [place] [address] 52926- 5448 Feb, Medicare annual wellness visit, initial Z00.00 ; Type 2 diabetes mellitus with hyperglycemia, without long-term current use of insulin E11.65 ; Major depressive disorder, recurrent episode, moderate F33.1 ; Mixed hyperlipidemia E78.2 ; Fibromyalgia M79.7 ; Retinitis pigmentosa H35.52 ; Panic attacks F41.0 ; Facial skin lesion L98.9 ; Fullness of neck R22.1 and Screening for colon cancer Z12.11 [place] [id number] [place] [address] 40274- 6476 Feb, Type 2 diabetes mellitus with hyperglycemia, without long- term current use of insulin E11.65 [place] [id number] [place] [address] 24390- 6498 Jan, [place] [id number] [place] [address] 60431- 8220 Jan, Asymptomatic microscopic hematuria R31.21 ; Chest pain, unspecified type R07.9 and Generalized anxiety disorder F41.1 [place] [id number] [place] [address] 58837- 9044 Jan, [place] [id number] [place] [address] 87427- 9867 Jan, [facility] [address] [address] Dec, [facility] [id number] [place] [address] 51840- 1972 Dec, [facility] [address] [place] [address] 77102- 4317 Dec, [facility] [id number] [place] [address] 03280- 5523 Dec, [facility] [id number] [place] [address] 25314- 0496 Dec, [facility] [id number] [place] [address] 32514- 6742 Dec, Tension headache G44.209 [facility] [id number] [place] [address] 92408- 3301 09 Dec, 2017 Elevated LFTs R79.89 ; Type 2 diabetes mellitus with hyperglycemia, without long-term current use of insulin E11.65 ; Abdominal bloating R14.0 and Other fatigue R53.83 [place] [id number] [place] [address] 11055- 7352 08 Dec, 2017 Elevated ALT measurement R74.0 [place] [address] [place] [address] 30214- 5142 Nov, Type 2 diabetes mellitus with hyperglycemia, without long- term current use of insulin E11.65 and Mixed hyperlipidemia E78.2 [place] [address] [place] [address] 31345- 7947 Oct, [place] [id number] [place] [address] 60346- 4188 Oct, Elevated ALT measurement R74.0 [facility] [address] [place] [address] 71540- 4670 Oct, [facility] [id number] [place] [address] 95857- 4323 Oct, [address] 99596- 5079 Oct, Breast cancer screening Z12.[address] 42331- 4583 Sep, Tension headache G44.209 ; Cervical disc disorder at C5-C6 level with radiculopathy M50.122 ; Other fatigue R53.83 ; Breast pain, left N64.4 ; Vertigo R42 and Abnormal tympanic membrane of left ear H73.92 [facility] [address] [place] [address] 95312 -7664 24 Sep, 2017 Screening breast examination Z12.[address] 94130- 4672 Sep, [address] 50299- 3319 Sep, Mixed hyperlipidemia E78.2 and Type 2 diabetes mellitus with hyperglycemia, without long-term current use of insulin E11.[address] 23223- 7566 Jul, [address] 96027- 7426 Jul, Lumbago with sciatica, right side M54.41 and Other chronic pain G89.29 [place] [id number] [place] [address] 06887- 1176 May, Type 2 diabetes mellitus with hyperglycemia, without long- term current use of insulin E11.65 ; Low back pain M54.5 ; Tobacco use Z72.0 ; Mixed hyperlipidemia E78.2 ; Lateral epicondylitis of right elbow M77.11 and 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 78072- 9325 Apr, [place] [id number] [address]- 6806 Apr, Low back pain M54.5 [facility] [id number] [place] [address] 05829- 5935 Apr, Pain in thoracic spine M54.6 [facility] [address], [place] [address] March, Lumbosacral neuritis M54.17 [facility] [id number] [place] [address] 13887- 5628 March, Low back pain M54.5 [facility] [id number] [place] [address] 06083- 3152 March, [facility] [id number] [place] [address] 93920- 8575 March, [facility] [id number] [place] [address] 92650- 2076 March, [facility] [id number] [place] [address] 18459- 1522 Feb, [facility] [id number] [place] [address] 11386- 4338 Feb, [facility] [address], [place] [address]- 2739 Feb, [facility] [id number] [place] [address] 85983- 0352 Feb, Low back pain M54.5 and Pain in thoracic spine M54.6 [facility] [address], [place] [address]- 6005 Jan, Panic attacks F41.0 ; Type 2 diabetes mellitus with hyperglycemia, without long-term current use of insulin E11.65 and Other chest pain R07.89 [facility] [address] [address]- 4247 Jan, [facility] [id number] [place] [address] 38700- 4103 Jan, Type 2 diabetes mellitus with hyperglycemia, without long- term current use of insulin E11.65 [place] [id number] [place] [address] 81192- 4752 Jan, Pain in thoracic spine M54.6 [place] [id number] [place] [address] 78504- 6187 Jan, Type 2 diabetes mellitus with hyperglycemia, without long- term current use of insulin E11.65 and Elevated liver enzymes R74.8 [place] [id number] [place] [address] 56903- 8738 Jan, [place] [id number] [place] [address] 36992- 4627 Dec, Tobacco use Z72.0 ; Prediabetes R73.09 ; Elevated liver enzymes R74.8 ; Elevated fasting glucose R73.01 ; Elevated ALT measurement R74.0 ; Pain in thoracic spine M54.6 ; Panic attacks F41.0 and Type 2 diabetes mellitus with hyperglycemia, without long-term current use of insulin E11.65 [facility] [id number] [place] [address] 90175 -5111 Jun, Abdominal pain, right upper quadrant R10.11 [place] [id number] [place] [address] 73333- 1887 Jun, [place] [id number] [place] [address] 89377- 1493 Jun, [place] [id number] [place] [address] 53573- 2742 Jun, [place] [id number] [place] [address] 72588- 4147 May, Routine gynecological examination Z01.419 ; Encounter for Papanicolaou smear for cervical cancer screening Z12.4 ; Screening breast examination Z12.39 ; Vaginal discharge N89.8 and Candidal vaginitis B37.3 [place] [id number] [place] [address] 62227- 5591 May, [place] [address] 72779- 2055 May, Prediabetes R73.09 ; Elevated ALT measurement R74.0 ; Elevated fasting glucose R73.01 and Palpitations R00.2 [place] [address] 42316- 9789 Feb, [place] [id number] [place] [address] 47902- 8371 Feb, [place] [address] 38408- 4971 Feb, Generalized anxiety disorder F41.1 and Major depressive disorder, recurrent episode, moderate F33.[address] 94180- 9094 Feb, Generalized anxiety disorder F41.1 ; Low back pain M54.5 and Insomnia G47.00 [place] [id number] [place] [address] 90495- 8516 Jan, Elevated fasting glucose R73.01 and Elevated ALT measurement R74.0 [place] [id number] [place] [address] 10804- 0572 Jan, Generalized anxiety disorder F41.1 ; Low back pain M54.5 and Screening cholesterol level Z13.220 [place] [id number] [place] [address] 87213- 4438 Dec, Scoliosis M41.9 and Anxiety F41.9 [place] [address] 05157- 5335 Feb, [place] [id number] [place] [address] 86196- 9887 Feb, [place] [id number] [place] [address] 19190- 2497 Apr, [facility] [place] [facility] [address] [id number] [place] [address]- 2758 March, [facility] [place] [facility] [address] [id number] [place] [address] March, [facility] [place] [facility] [address] [id number] [place] [address]- 3542 March, [facility] [place] [facility] [address] [id number] [place] [address]- 5988 March, [facility] [address] [id number] [place] [address]- 3572 March, [facility] [place] [facility] [address] [id number] [place] [address]- 3367 March, [facility] [address] [id number] [place] [address]- 7831 March, [facility] [address] [id number] [place] [address]- 5024 March, [facility] [address] [id number] [place] [address]- 1463 Feb, [facility] [place] [facility] [address] [id number] [place] [address]- 6559 Feb, [facility] [place] [facility] [address] [id number] [place] [address]- 0222 Feb, [facility] [place] [facility] [address] [id number] [place] [address]- 4026 Feb, [facility] [place] [facility] [address] [id number] [place] [address]- 3412 Jan, [facility] [place] [facility] [address] [id number] [place] 2989 Jan, [facility] [place] [facility] [address] [id number] [place] [address]- 3490 Jan, [facility] [place] [facility] [address] [id number] [place] [address]- 4075 Jan, [facility] [place] [facility] [address] [id number] [place] [address]- 1173 Jan, [facility] [place] [facility] [address] [id number] [place] [address]- 8491 Jan, [facility] [place] [facility] [address] [id number] [place] [address]- 4115 Jan, [facility] [place] [facility] [address] [id number] [place] [address]- 7472 Dec, [facility] [place] [facility] [address] [id number] [place] [address]- 1158 Dec, [facility] [place] [facility] [address] [id number] [place] [address]- 2974 Dec, [facility] [place] [facility] [address] [id number] [place] [address]- 7576 Dec, [facility] [place] [facility] [address] [id number] [place] [address]- 4043 Dec, [facility] [place] [facility] [address] [id number] [place] [address]- 1831 Dec, [facility] [place] [facility] [address] [facility] [id number] [place] [address]- 4532 Nov, [facility] [place] [facility] [address] [id number] [place] [address]- 6581 Nov, [facility] [place] [facility] [address] [id number] [place] [address]- 8864 Nov, [facility] [place] [facility] [address] [id number] [place] [address]- 2540 Nov, [facility] [place] [facility] [address] [id number] [place] [address]- 7522 Nov, [facility] [place] [facility] [address] [id number], [place] [address]- 0464 Nov, [facility] [place] [facility] [address] [id number] [place] [address]- 3320 Nov, [facility] [place] [facility] [address] [id number] [place] [address]- 5106 Oct, [facility] [place] [facility] [address] [id number] [place] [address]- 6012 Oct, [facility] [place] [facility] [address] [id number] [place] [address]- 5820 Oct, [facility] [place] [facility] [address] [id number] [place] [address]- 3538 Oct, [facility] [place] [facility] [address] [id number] [place] [address]- 1233 Sep, [facility] [place] [facility] [address] [id number] [place] [address]- 6443 Sep, [facility] [place] [facility] [address] [id number] [place] [address]- 4931 Sep, [facility] [place] [facility] [address] [id number] [place] [address]- 5014 Sep, [facility] [place] [facility] [address] [id number] [place] [address]- 2072 Sep, [facility] [place] [facility] [address] [id number] [place] [address]- 7984 Sep, [facility] [place] [facility] [address] [id number] [place] [address]- 7056 Aug, [facility] [place] [facility] [address] [id number] [place] [address]- 5570 Aug, [facility] [place] [facility] [address] [id number] [place] [address]- 7258 Aug, [facility] [place] [facility] [address] [id number] [place] [address]- 0420 Aug, [facility] [place] [facility] [address] [id number] [place] [address]- 5526 08 Aug, 2013 [facility] [address] [id number] [place] [address]- 4216 Aug, [facility] [place] [facility] [address] [id number] [place] [address]- 2546 Aug, [facility] [place] [facility] [address] [id number] [place] [address] 2546 Jul, [facility] [place] [facility] [address] [id number] [place] [address]- 2549 Jul, [facility] [address] [id number] [place] [address]- 7030 Jun, [facility] [place] [facility] [address] [id number] [place] [address]- 8556 May, [facility] [place] [facility] [address] [id number] [place] [address]- 0158 May, [facility] [place] [facility] [address] [id number] [place] [address]- 3530 May, [facility] [address] [id number] [place] [address]- 8419 Apr, [facility] [place] [facility] [address] [id number] [place] [address]- 2306 Apr, [facility] [place] [facility] [address] [id number], [place] [address]- 1032 Apr, [facility] [place] [facility] [address] [id number], [place] [address] 2544 March, [facility] [place] [facility] [address] [id number] [place] [address]- 9626 March, [facility] [place] [facility] [address] [id number] [place] [address]- 8676 March, [facility] [place] [facility] [address] [id number] [place] [address]- 8776 Feb, [facility] [place] [facility] [address] [id number] [place] [address]- 0961 22 Feb, 2013 [facility] [address] [id number] [place] [address]- 6574 15 Feb, 2013 [facility] [address] [id number] [place] [address]- 9197 28 Jan, 2013 [facility] [address] [id number] [place] [address]- 4250 19 Jan, 2013 [facility] [address] [id number] [place] [address]- 7832 18 Jan, 2013 [facility] [address] [id number] [place] [address]- 4469 15 Jan, 2013 [facility] [address] [id number] [place] 1415 14 Jan, 2013 [facility] [address] [id number] [place] [address]- 8796 12 Jan, 2013 [facility] [address] [id number] [place] [address]- 1369 05 Jan, 2013 [facility] [address] [id number] [place] [address]- 5376 28 Dec, 2012 [facility] [address] [facility] [id number] [place] [address]- 2740 18 Dec, 2012 [facility] [address] [id number] [place] [address]- 1025 15 Dec, 2012 [facility] [address] [id number] [place] [address] 14 Dec, 2012 [facility] [address] [id number] [place] [address] 05 Dec, 2012 [facility] [address] [id number] [place] [address] 29 Nov, 2012 [facility] [address] [id number] [place] [address] Nov, [facility] [place] [facility] [address] [id number] [place] [address] Nov, [facility] [place] [facility] [address] [id number] [place] [address] Nov, [facility] [place] [facility] [address] [id number] [place] [address] Oct, [facility] [place] [facility] [address] [id number] [place] [address] Oct, [facility] [place] [facility] [address] [id number] [place] [address] Oct, [facility] [place] [facility] [address] [id number] [place] [address] 2017 Oct, [facility] [place] [facility] [address] [id number] [place] [address] Oct, [facility] [place] [facility] [address] [id number] [place] [address] Oct, [facility] [place] [facility] [address] [id number] [place] [address] Oct, [facility] [place] [facility] [address] [id number] [place] [address] Oct, [facility] [place] [facility] [address] [id number] [place] [address] Oct, [facility] [place] [facility] [address] [id number], [place] [address] 16 Sep, 2012 [facility] [place] [facility] [address] [id number] [place] [address] Sep, [facility] [place] [facility] [address] [id number] [place] [address] 12 Sep, 2012 [facility] [place] [facility] [address] [id number] [place] [address] Sep, [facility] [place] [facility] [address] [id number] [place] [address] 08 Sep, 2012 [facility] [place] [facility] [address] [id number] [place] [address] 25 Aug, 2011 [facility] [place] [facility] [address] [id number] [place] [address] 25 Aug, 2011 [facility] [place] [facility] [address] [id number] [place] [address]- [address] 17 Aug, 2011 [facility] [place] [facility] [address] [id number] [place] [address] 17 Aug, 2011 [facility] [place] [facility] [address] [id number] [place] [address] 16 Aug, 2011 [facility] [place] [facility] [address] [id number] [place] [address] 11 Aug, 2012 [facility] [place] [facility] [address] [id number] [place] [address] 11 Aug, 2012 [facility] [place] [facility] [address] [id number] [place] [address] 10 Aug, 2012 [facility] [place] [facility] [address] [id number] [place] [address] 10 Aug, 2012 [facility] [place] [facility] [address] [facility] [id number] [place] [address] 09 Aug, 2012 [facility] [place] [facility] [address] [id number] [place] [address] 05 Aug, 2012 [facility] [place] [facility] [address] [id number] [place] [address] 04 Aug, 2012 [facility] [place] [facility] [address] [id number] [place] [address] 17 Sep, 2011 [facility] [place] [facility] [address] [id number] [place] [address] 13 Sep, 2011 [facility] [place] [facility] [address] [id number] [place] [address] 13 Jul, 2012 [facility] [place] [facility] [address] [id number] [place] [address] 11 Jul, 2012 [facility] [place] [facility] [address] [id number] [place] [address] 10 Jul, 2012 [facility] [place] [facility] [address] [id number] [place] [address] 08 Jul, 2012 [facility] [place] [facility] [address] [id number] [place] [address] 16 Jun, 2012 [facility] [place] [facility] [address] [id number] [place] [address] 14 Jun, 2012 [facility] [place] [facility] [address] [id number] [place] [address] 17 May, 2012 [facility] [place] [facility] [address] [id number] [place] [address] 17 May, 2012 [facility] [place] [facility] [address] [id number] [place] [address] May, [facility] [place] [facility] [address] [id number] [place] [address] May, [facility] [place] [facility] [address] [id number] [place] [address] Apr, [facility] [place] [facility] [address] [id number] [place] [address] Apr, [facility] [place] [facility] [address] [id number] [place] [address] Apr, [facility] [place] [facility] [address] [id number] [place] [address] Apr, [facility] [place] [facility] [address] [id number] [place] [address] Apr, [facility] [place] [facility] [address] [id number] [place] [address] March, [facility] [place] [facility] [address] [id number] [place] [address] March, [facility] [address] [id number] [place] [address] March, [facility] [place] [facility] [address] [id number] [place] [address] March, [facility] [place] [facility] [address] [id number] [place] [address] March, [facility] [place] [facility] [address] [id number] [place] [address] Feb, [facility] [place] [facility] [address] [id number] [place] [address] Feb, [facility] [place] [facility] [address] [id number] [place] [address] Jan, [facility] [place] [facility] [address] [id number] [place] [address] Jan, [facility] [place] [facility] [address] [id number] [place] [address] Jan, [facility] [place] [facility] [address] [id number] [place] [address] Dec, [facility] [place] [facility] [address] [id number] [place] [address] Nov, [facility] [place] [facility] [address] [id number] [place] [address] Nov, [facility] [place] [facility] [address] [id number] [place] [address] Nov, [facility] [place] [facility] [address] [id number] [place] [address] Nov, [facility] [place] [facility] [address] [id number] [place] [address] Oct, [facility] [place] [facility] [address] [id number] [place] [address] Oct, [facility] [place] [facility] [address] [id number] [place] [address] 18 Sep, 2011 [facility] [place] [facility] [address] [id number] [place] [address] 18 Sep, 2011 [facility] [place] [facility] [address] [id number] [place] [address] 10 Sep, 2011 [facility] [place] [facility] [address] [id number] [place] [address] 10 Sep, 2011 [facility] [place] [facility] [address] [id number] [place] [address] 08 Sep, 2011 [facility] [place] [facility] [address] [id number] [place] [address] 16 Jun, 2011 [facility] [place] [facility] [address] [id number] [place] [address] Dec, [facility] [place] [facility] [address] [id number] [place] [address] Sep, [facility] [place] [facility] [address] [id number] [place] [address] 29 Aug, 2010 [facility] [place] [facility] [address] [id number] [place] [address] Aug, [facility] [place] [facility] [address] [id number] [place] [address] Aug, [facility] [place] [facility] [address] [id number] [place] [address] Aug, [facility] [place] [facility] [address] [id number] [place] [address] Aug, [facility] [place] [facility] [address] [id number] [place] [address] Jun, [facility] [place] [facility] [address] [id number] [place] [address] 13 Feb, 2010 [facility] [place] [facility] [address] [id number] [place] [address] Sep, [facility] [address] [facility] [id number] [address] Aug, [facility] [address] [facility] [id number], [place] [address] Apr, [facility] [address] [facility] [id number], [place] [address] March, IMMUNIZATIONS No Known Immunizations SOCIAL HISTORY Never Assessed REASON FOR VISIT f/u pneumonia-states she has improved, finished antibiotic yesterday-AHarrymanRN PLAN OF CARE Activity Details Follow Up prn Reason: VITAL SIGNS Height 61 in 2018-06-06 Weight 170.8 lbs 2018-06-06 Temperature 97.3 degrees Fahrenheit 2018-06-06 Heart Rate 96 bpm 2018-06-06 Respiratory Rate 20 2018-06-06 Oximetry 97 % 2018-06-06 BMI 32.27 kg/m2 2018-06-06 Blood pressure systolic 106 mmHg 2018-06-06 Blood pressure diastolic 68 mmHg 2018-06-06 MEDICATIONS Medication Instructions Dosage Frequency Start Date End Date Duration Status Metoprolol Succinate ER 50 MG Orally Once a day 1 tablet 24h Active Cyclobenzaprine HCl 10 MG Orally Three times a day 1 tablet as needed 8h Active Blood Glucose Monitor System w/Device ICD10- E11.65 2 times a day -3 times weekly. as directed Jan, Active Nebulizer/Tubing/Mouthpiece - Use as directed with Albuterol Sulfate Inhalation solution May, lifetime Active Zyrtec Allergy 10 mg Orally Once a day 1 tablet 24h May, Jun, 30 day(s) Active Blood Glucose Test - and Lancets ICD10- E11.65 2 times a day- 3 times weekly as directed Jan, Active Naproxen 500 MG Orally Twice a day 1 tablet 12h Active Tessalon Perles 100 mg Orally Three times a day 1 capsule as needed 8h May, Jun, 10 days Active Albuterol Sulfate (2.5 MG/3ML) 0.083% Inhalation every 6 hrs for COPD exacerbation 3 ml as needed May, Active Rosuvastatin Calcium 20 mg TAKE ONE TABLET BY MOUTH ONCE DAILY 30 Active Metformin HCl 1000 MG Orally Twice a day 1 tablet with a meal 12h 90 days Active RESULTS No Results PROCEDURES No Known procedures INSTRUCTIONS MEDICATIONS ADMINISTERED No Known Medications MEDICAL (GENERAL) HISTORY Type Description Date Medical History Scoliosis Medical History Bipolar Surgical History right hip replacement Surgical History c-sections x4 Hospitalization History Pneumonia 2012
--- OUTSIDE RECORDS SUMMARY | 2019-02-03 10:48 | XMS REPORT ---
Author Author ASHOK ROMY Organization [facility] Address [address] [place] [address] Care Team Providers Care Resident Care Manager Rn Name Role Phone ASHOKPHILLIP PRIDEHANY Unavailable PROBLEMS Type Condition ICD9-CM Code [id number] Code Onset Dates Condition Status SNOMED Code Problem Lumbago with sciatica, right side M54.41 Active 075765963 Problem Tension headache G44.209 Active 929447154 Problem Other chronic pain G89.29 Active 32059781 Problem COPD with exacerbation J44.1 Active 695688777 Problem Fibromyalgia M79.7 Active 732321086 Problem Peripheral polyneuropathy G62.9 Active 91252006 Problem Chest pain, unspecified type R07.9 Active 20916079 Problem Retinitis pigmentosa H35.52 Active 68492622 Problem Cervical disc disorder at C5-C6 level with radiculopathy M50.122 Active 691750264 Problem Carpal tunnel syndrome of left wrist G56.02 Active [id number] Problem Anxiety state, unspecified F41.1 Active 219499658 Problem Low back pain M54.5 Active 733396751 Problem Major depressive disorder, recurrent episode, moderate F33.1 Active 248937854 Problem Calculus of gallbladder without cholecystitis without obstruction K80.20 Active 690715469 Problem Generalized anxiety disorder F41.1 Active 58886911 Problem Panic attacks F41.0 Active 818844586 Problem Type 2 diabetes mellitus with hyperglycemia, without long-term current use of insulin E11.65 Active 19090078 Problem Insomnia G47.00 Active 579312018 Problem 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 Active 52687644 Problem Tobacco use Z72.0 Active 444282753 Problem Mixed hyperlipidemia E78.2 Active [id number] ALLERGIES No Information ENCOUNTERS Encounter Location Date Diagnosis [facility] [address] [facility] [id number] [address] Jun, Cervical disc disorder at C5-C6 level with radiculopathy M50.122 [facility] [id number] [place] [address] 17183- 9728 Jun, [facility] [id number] [place] [address] 73337- 3587 Jun, Pneumonia of right lung due to infectious organism, unspecified part of lung J18.9 [facility] [address] [address]- [address] May, [facility] [id number] [place] [address] 81478- 0007 May, Cough R05 [place] [address] 00357- 7130 May, [place] [id number] [place] [address] 82011- 1775 May, COPD with exacerbation J44.1 [facility] [id number] [place] [address] 63059- 8542 May, Type 2 diabetes mellitus with hyperglycemia, without long- term current use of insulin E11.65 ; Peripheral polyneuropathy G62.9 ; Cough R05 and COPD with exacerbation J44.1 [facility] [id number] [place] [address] 41588- 9573 May, [facility] [id number] [place] [address] 71865- 3161 May, COPD with exacerbation J44.1 and Tobacco abuse counseling Z71.6 [facility] [id number] [place] [address] 48881- 4460 May, [facility] [id number] [place] [address] 36796- 7058 May, [facility] [address] [place] [address] 88157 -0689 May, Numbness of left hand R20.0 and Carpal tunnel syndrome of left wrist G56.02 [place] [address] [place] [address] 00966- 6789 May, [place] [id number] [place] [address] 76077- 3027 Apr, Type 2 diabetes mellitus with hyperglycemia, without long- term current use of insulin E11.65 [place] [id number] [place] [address] 56733- 5254 March, Anxiety state, unspecified F41.1 [place] [id number] [place] [address] 35080- 1074 Feb, [place] [id number] [place] [address] 10328- 2298 Feb, Medicare annual wellness visit, initial Z00.00 ; Type 2 diabetes mellitus with hyperglycemia, without long-term current use of insulin E11.65 ; Major depressive disorder, recurrent episode, moderate F33.1 ; Mixed hyperlipidemia E78.2 ; Fibromyalgia M79.7 ; Retinitis pigmentosa H35.52 ; Panic attacks F41.0 ; Facial skin lesion L98.9 ; Fullness of neck R22.1 and Screening for colon cancer Z12.11 [place] [id number] [place] [address] 22103- 8755 Feb, Type 2 diabetes mellitus with hyperglycemia, without long- term current use of insulin E11.65 [place] [address] [place] [address] 80507- 0166 Jan, [place] [id number] [place] [address] 22442- 6263 Jan, Asymptomatic microscopic hematuria R31.21 ; Chest pain, unspecified type R07.9 and Generalized anxiety disorder F41.1 [place] [id number] [place] [address] 58368- 4023 Jan, [place] [id number] [place] [address] 54953- 7688 Jan, [facility] [address] [id number] [address] Dec, [facility] [id number] [place] [address] 00127- 7545 Dec, [facility] [id number] [place] [address] 01948- 7786 Dec, [facility] [id number] [place] [address] 49911- 6838 Dec, [facility] [id number] [place] [address] 92231- 3954 Dec, [facility] [id number] [place] [address] 75798- 5947 Dec, Tension headache G44.209 [facility] [id number] [place] [address] 09598- 2846 Dec, Elevated LFTs R79.89 ; Type 2 diabetes mellitus with hyperglycemia, without long-term current use of insulin E11.65 ; Abdominal bloating R14.0 and Other fatigue R53.83 [facility] [id number] [place] [address] 40540- 7627 Dec, Elevated ALT measurement R74.0 [facility] [address] [place] [address] 89423- 9999 Nov, Type 2 diabetes mellitus with hyperglycemia, without long- term current use of insulin E11.65 and Mixed hyperlipidemia E78.2 [facility] [id number] [place] [address] 41601- 1401 Oct, [facility] [id number] [place] [address] 41438- 8281 Oct, Elevated ALT measurement R74.0 [facility] [id number] [place] [address] 43168- 9238 Oct, [facility] [id number] [place] [address] 33923- 6386 Oct, [place] [id number] [place] [address] 98442- 1464 08 Oct, 2017 Breast cancer screening Z12.31 [place] [id number] [place] [address] 85812- 8793 Sep, Tension headache G44.209 ; Cervical disc disorder at C5-C6 level with radiculopathy M50.122 ; Other fatigue R53.83 ; Breast pain, left N64.4 ; Vertigo R42 and Abnormal tympanic membrane of left ear H73.92 [facility] [id number] [place] [address] 35478 -1852 24 Sep, 2017 Screening breast examination Z12.[address] 71402- 6613 Sep, [address] 79499- 2816 Sep, Mixed hyperlipidemia E78.2 and Type 2 diabetes mellitus with hyperglycemia, without long-term current use of insulin E11.65 [place] [id number] [place] [address] 32540- 7907 Jul, [address] 74521- 7340 Jul, Lumbago with sciatica, right side M54.41 and Other chronic pain G89.[address] 67445- 8737 May, Type 2 diabetes mellitus with hyperglycemia, without long- term current use of insulin E11.65 ; Low back pain M54.5 ; Tobacco use Z72.0 ; Mixed hyperlipidemia E78.2 ; Lateral epicondylitis of right elbow M77.11 and 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 [place] [id number] [place] [address] 25252- 7139 Apr, [address] 66965- 4355 Apr, Low back pain M54.5 [facility] [address] [address]- 7489 Apr, Pain in thoracic spine M54.6 [facility] [address] [place] [address] 97564 -1682 March, Lumbosacral neuritis M54.17 [facility] [id number] [place] [address] 05839- 7217 March, Low back pain M54.5 [facility] [id number] [place] [address] 04618- 3216 March, [facility] [id number] [place] [address] 69028- 1362 March, [facility] [id number] [place] [address] 94308- 8097 March, [facility] [id number] [place] [address] 06814- 8302 Feb, [facility] [id number] [place] [address] 62312- 5378 Feb, [facility] [id number] [place] [address] 44044- 4956 Feb, [facility] [id number] [place] [address] 79840- 8008 Feb, Low back pain M54.5 and Pain in thoracic spine M54.6 [facility] [address] [address]- 6812 Jan, Panic attacks F41.0 ; Type 2 diabetes mellitus with hyperglycemia, without long-term current use of insulin E11.65 and Other chest pain R07.89 [facility] [address] [address]- 0268 Jan, [facility] [address] [place] [address] 63569- 5216 Jan, Type 2 diabetes mellitus with hyperglycemia, without long- term current use of insulin E11.65 [place] [address] [place] [address] 08884- 7399 Jan, Pain in thoracic spine M54.6 [facility] [id number] [place] [address] 31399- 9996 Jan, Type 2 diabetes mellitus with hyperglycemia, without long- term current use of insulin E11.65 and Elevated liver enzymes R74.8 [place] [id number] [place] [address] 10877- 3071 Jan, [place] [id number] [place] [address] 96783- 5115 Dec, Tobacco use Z72.0 ; Prediabetes R73.09 ; Elevated liver enzymes R74.8 ; Elevated fasting glucose R73.01 ; Elevated ALT measurement R74.0 ; Pain in thoracic spine M54.6 ; Panic attacks F41.0 and Type 2 diabetes mellitus with hyperglycemia, without long-term current use of insulin E11.65 [facility] [id number] [place] [address] 96370 -0049 Jun, Abdominal pain, right upper quadrant R10.11 [place] [id number] [place] [address] 64255- 1579 Jun, [place] [id number] [place] [address] 41322- 4544 Jun, [place] [id number] [place] [address] 05259- 4571 Jun, [place] [id number] [place] [address] 79570- 2906 May, Routine gynecological examination Z01.419 ; Encounter for Papanicolaou smear for cervical cancer screening Z12.4 ; Screening breast examination Z12.39 ; Vaginal discharge N89.8 and Candidal vaginitis B37.3 [facility] [id number] [place] [address] 42722- 5382 May, [place] [id number] [place] [address] 32480- 2684 May, Prediabetes R73.09 ; Elevated ALT measurement R74.0 ; Elevated fasting glucose R73.01 and Palpitations R00.2 [place] [id number] [place] [address] 76609- 7309 Feb, [place] [address] 54122- 1612 Feb, [place] [address] 28892- 8643 Feb, Generalized anxiety disorder F41.1 and Major depressive disorder, recurrent episode, moderate F33.1 [place] [id number] [place] [address] 41374- 5069 Feb, Generalized anxiety disorder F41.1 ; Low back pain M54.5 and Insomnia G47.00 [place] [id number] [place] [address] 23349- 2777 Jan, Elevated fasting glucose R73.01 and Elevated ALT measurement R74.[address] 18481- 3104 Jan, Generalized anxiety disorder F41.1 ; Low back pain M54.5 and Screening cholesterol level Z13.220 [place] [id number] [place] [address] 74880- 2237 Dec, Scoliosis M41.9 and Anxiety F41.9 [place] [id number] [place] [address] 38212- 6298 Feb, [place] [address] 94274- 4413 Feb, [place] [id number] [place] [address] 87641- 4683 Apr, [place] [address] 05727- 2255 March, [facility] [place] [facility] [address] [id number] [place] [address]- 4483 March, [facility] [place] [facility] [address] [id number] [place] [address]- 3355 March, [facility] [place] [facility] [address] [id number] [place]- 8321 March, [facility] [place] [facility] [address] [id number] [place] [address]- 6480 March, [facility] [place] [facility] [address] [id number] [place] [address]- 6623 March, [facility] [place] [facility] [address] [id number] [place] [address]- 3924 March, [facility] [place] [facility] [address] [id number] [place] [address]- 0043 March, [facility] [place] [facility] [address] [id number] [place] [address]- 7481 Feb, [facility] [place] [facility] [address] [id number] [place] [address]- 4994 Feb, [facility] [place] [facility] [address] [id number] [place] [address]- 2673 Feb, [facility] [place] [facility] [address] [id number] [place] [address]- 8242 Feb, [facility] [place] [facility] [address] [id number] [place] [address]- 8511 Jan, [facility] [place] [facility] [address] [id number] [place] [address]- 4478 Jan, [facility] [place] [facility] [address] [id number] [place] [address]- 9804 Jan, [facility] [place] [facility] [address] [id number] [place] [address]- 8956 Jan, [facility] [place] [facility] [address] [id number] [place] [address]- 3410 Jan, [facility] [place] [facility] [address] [id number] [place] [address]- 8397 Jan, [facility] [place] [facility] [address] [id number] [place] [address]- 4926 Jan, [facility] [place] [facility] [address] [id number] [place] [address]- 3782 Dec, [facility] [place] [facility] [address] [id number] [place] [address]- 2099 Dec, [facility] [place] [facility] [address] [id number] [place] [address]- 7516 Dec, [facility] [place] [facility] [address] [id number] [place] [address]- 6038 Dec, [facility] [place] [facility] [address] [id number] [place] [address]- 0493 Dec, [facility] [place] [facility] [address] [id number] [place] [address]- 5402 Dec, [facility] [place] [facility] [address] [id number] [place] [address]- 2149 Nov, [facility] [place] [facility] [address] [id number] [place] [address]- 9038 Nov, [facility] [place] [facility] [address] [id number] [place] [address]- 9567 Nov, [facility] [place] [facility] [address] [id number] [place] [address]- 0889 Nov, [facility] [place] [facility] [address] [id number] [place] [address]- 6445 Nov, [facility] [place] [facility] [address] [id number] [place] [address]- 9446 Nov, [facility] [place] [facility] [address] [id number] [place] [address]- 9498 Nov, [facility] [place] [facility] [address] [id number] [place] [address]- 1410 Oct, [facility] [place] [facility] [address] [id number] [place] [address]- 5856 Oct, [facility] [place] [facility] [address] [id number] [place] [address]- 3887 Oct, [facility] [place] [facility] [address] [id number] [place] [address]- 5297 Oct, [facility] [place] [facility] [address] [id number] [place] [address]- 9300 Sep, [facility] [place] [facility] [address] [id number] [place] [address]- 1214 Sep, [facility] [place] [facility] [address] [id number] [place] [address]- 5529 Sep, [facility] [place] [facility] [address] [id number], [place] [address]- 1040 Sep, [facility] [place] [facility] [address] [id number] [place] [address]- 5431 Sep, [facility] [place] [facility] [address] [id number], [place] [address]- 5843 Sep, [facility] [place] [facility] [address] [id number], [place] [address]- 9097 Aug, [facility] [place] [facility] [address] [id number], [place] [address]- 7011 Aug, [facility] [place] [facility] [address] [id number] [place] [address]- 0820 Aug, [facility] [place] [facility] [address] [id number], [place] [address]- 5393 Aug, [facility] [place] [facility] [address] [id number], [place] [address]- 7784 Aug, [facility] [place] [facility] [address] [id number] [place] [address]- 4441 07 Aug, 2013 [facility] [address] [id number] [place] [address]- 8945 02 Aug, 2013 [facility] [place] [facility] [address] [id number] [place] [address]- 8336 Jul, [facility] [address] [id number] [place] [address]- 7032 Jul, [facility] [place] [facility] [address] [id number] [place] [address]- 7441 Jun, [facility] [address] [id number] [place] [address]- 4398 May, [facility] [place] [facility] [address] [id number] [place] [address]- 9351 May, [facility] [address] [id number] [place] [address]- 2067 May, [facility] [address] [id number] [place] [address]- 2256 Apr, [facility] [address] [id number] [place] [address]- 8379 Apr, [facility] [address] [id number] [place] [address]- 7250 Apr, [facility] [address] [id number] [place] [address]- 6228 March, [facility] [place] [facility] [address] [id number] [place] [address]- 6292 March, [facility] [place] [facility] [address] [id number] [place] [address]- 8119 March, [facility] [place] [facility] [address] [id number] [place] [address]- 9748 Feb, [facility] [place] [facility] [address] [id number] [place] [address]- 5599 Feb, [facility] [place] [facility] [address] [id number] [place] [address]- 0301 15 Feb, 2013 [facility] [place] [facility] [address] [id number] [place] [address]- 5912 28 Jan, 2013 [facility] [place] [facility] [address] [id number] [place] [address]- 6092 19 Jan, 2013 [facility] [place] [facility] [address] [id number] [place] [address]- 9612 18 Jan, 2013 [facility] [place] [facility] [address] [id number] [place] [address]- 0936 15 Jan, 2013 [facility] [place] [facility] [address] [id number] [place] [address]- 2537 14 Jan, 2013 [facility] [address] [facility] [id number] [place] [address]- 8324 12 Jan, 2013 [facility] [place] [facility] [address] [id number] [place] [address] 05 Jan, 2013 [facility] [place] [facility] [address] [id number] [place] [address] 28 Dec, 2012 [facility] [place] [facility] [address] [id number] [place] [address] 18 Dec, 2012 [facility] [place] [facility] [address] [id number] [place] [address] 15 Dec, 2012 [facility] [place] [facility] [address] [id number], [place] [address] 14 Dec, 2012 [facility] [place] [facility] [address] [id number] [place] [address] 05 Dec, 2012 [facility] [place] [facility] [address] [id number] [place] [address] 29 Nov, 2012 [facility] [place] [facility] [address] [id number] [place] [address] 17 Nov, 2012 [facility] [place] [facility] [address] [id number], [place] [address] Nov, [facility] [address] [id number] [place] [address] Nov, [facility] [place] [facility] [address] [id number] [place] [address] Oct, [facility] [place] [facility] [address] [id number] [place] [address] Oct, [facility] [place] [facility] [address] [id number] [place] [address] Oct, [facility] [place] [facility] [address] [id number] [place] [address] Oct, [facility] [place] [facility] [address] [id number] [place] [address] Oct, [facility] [place] [facility] [address] [id number] [place] [address] Oct, [facility] [place] [facility] [address] [id number] [place] [address] Oct, [facility] [place] [facility] [address] [id number] [place] [address] Oct, [facility] [place] [facility] [address] [facility] [id number] [place] [address] Oct, [facility] [place] [facility] [address] [id number] [place] [address] 16 Sep, 2012 [facility] [place] [facility] [address] [id number] [place] [address] 16 Sep, 2012 [facility] [place] [facility] [address] [id number] [place] [address] Sep, [facility] [place] [facility] [address] [id number] [place] [address] Sep, [facility] [place] [facility] [address] [facility] [id number] [place] [address] Sep, [facility] [place] [facility] [address] [id number] [place] [address] Aug, 2011 [facility] [place] [facility] [address] [id number] [place] [address] 25 Aug, 2011 [facility] [place] [facility] [address] [id number] [place] [address] 17 Aug, 2011 [facility] [place] [facility] [address] [id number] [place] [address] 17 Aug, 2011 [facility] [place] [facility] [address] [id number] [place] [address] 16 Aug, 2011 [facility] [place] [facility] [address] [id number] [place] [address] Aug, [facility] [place] [facility] [address] [id number] [place] [address] Aug, [facility] [place] [facility] [address] [id number] [place] [address] 10 Aug, 2012 [facility] [place] [facility] [address] [id number] [place] [address] 10 Aug, 2012 [facility] [place] [facility] [address] [id number] [place] [address] 09 Aug, 2012 [facility] [place] [facility] [address] [id number] [place] [address] 05 Aug, 2012 [facility] [place] [facility] [address] [id number] [place] [address] 04 Aug, 2012 [facility] [place] [facility] [address] [id number] [place] [address] 17 Sep, 2011 [facility] [place] [facility] [address] [id number] [place] [address] 13 Sep, 2011 [facility] [place] [facility] [address] [id number] [place] [address] 13 Sep, 2011 [facility] [place] [facility] [address] [id number] [place] [address] 11 Jul, 2012 [facility] [place] [facility] [address] [id number] [place] [address] 10 Jul, 2012 [facility] [place] [facility] [address] [id number] [place] [address] 08 Jul, 2012 [facility] [place] [facility] [address] [id number] [place] [address] 16 Jun, 2012 [facility] [place] [facility] [address] [id number] [place] [address] 14 Jun, 2012 [facility] [place] [facility] [address] [id number] [place] [address] 17 May, 2012 [facility] [place] [facility] [address] [id number] [place] [address] 17 May, 2012 [facility] [place] [facility] [address] [id number] [place] [address] 13 May, 2012 [facility] [place] [facility] [address] [id number] [place] [address] May, [facility] [place] [facility] [address] [id number] [place] [address] Apr, [facility] [place] [facility] [address] [id number] [place] [address] Apr, [facility] [place] [facility] [address] [id number] [place] [address] Apr, [facility] [place] [facility] [address] [id number] [place] [address] Apr, [facility] [place] [facility] [address] [id number] [place] [address] Apr, [facility] [place] [facility] [address] [id number] [place] [address] March, [facility] [place] [facility] [address] [id number] [place] [address] March, [facility] [place] [facility] [address] [id number] [place] [address] March, [facility] [address] [id number] [place] [address] March, [facility] [place] [facility] [address] [id number] [place] [address] March, [facility] [address] [id number] [place] [address] Feb, [facility] [place] [facility] [address] [id number] [place] [address] Feb, [facility] [place] [facility] [address] [id number] [place] [address] Jan, [facility] [place] [facility] [address] [id number] [place] [address] Jan, [facility] [address] [id number] [place] [address] Jan, [facility] [place] [facility] [address] [id number] [place] [address]70 Dec, [facility] [place] [facility] [address] [id number] [place] [address] Nov, [facility] [place] [facility] [address] [id number] [place] [address] Nov, [facility] [place] [facility] [address] [id number] [place] [address] Nov, [facility] [place] [facility] [address] [id number] [place] [address] Nov, [facility] [place] [facility] [address] [id number] [place] [address] Oct, [facility] [place] [facility] [address] [id number] [place] [address] Oct, [facility] [place] [facility] [address] [id number] [place] [address] Sep, [facility] [place] [facility] [address] [id number] [place] [address] 46[address] 18 Sep, 2011 [facility] [place] [facility] [address] [id number] [place] [address] Sep, [facility] [place] [facility] [address] [id number] [place] [address] 10 Sep, 2011 [facility] [place] [facility] [address] [id number] [place] [address] 08 Sep, 2011 [facility] [place] [facility] [address] [id number] [place] [address]666 16 Jun, 2011 [facility] [place] [facility] [address] [id number] [place] [address] 15 Dec, 2010 [facility] [place] [facility] [address] [id number] [place] [address] Sep, [facility] [place] [facility] [address] [id number] [place] [address] Aug, [facility] [place] [facility] [address] [id number] [place] [address] Aug, [facility] [place] [facility] [address] [id number] [place] [address] Aug, [facility] [place] [facility] [address] [id number] [place] [address] Aug, [facility] [place] [facility] [address] [id number] [place] [address] 79[address] Aug, [facility] [place] [facility] [address] [id number] [place] [address] Jun, [facility] [place] [facility] [address] [id number] [place] [address] 13 Feb, 2010 [facility] [place] [facility] [address] [id number] [place] [address] 06 Sep, 2009 [facility] [place] [facility] [address] [id number] [place] [address] Aug, [facility] [place] [address] [facility] [id number] [place] [address] Apr, [facility] [place] [address] [facility] [id number] [place] [address] March, IMMUNIZATIONS No Known Immunizations SOCIAL HISTORY Never Assessed REASON FOR VISIT ER follow up call PLAN OF CARE VITAL SIGNS MEDICATIONS No Known Medications RESULTS No Results PROCEDURES No Known procedures INSTRUCTIONS MEDICATIONS ADMINISTERED No Known Medications MEDICAL (GENERAL) HISTORY Type Description Date Medical History Scoliosis Medical History Bipolar Surgical History right hip replacement Surgical History c-sections x4 Hospitalization History Pneumonia 2011
--- OUTSIDE RECORDS SUMMARY | 2019-02-03 10:49 | XMS REPORT ---
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 Name Role Phone ROSENDO DODSON Unavailable PROBLEMS Type Condition ICD9-CM Code NJE27-RH Code Onset Dates Condition Status SNOMED Code Problem Lumbago with sciatica, right side M54.41 Active 191208313 Problem Tension headache G44.209 Active 241967760 Problem Other chronic pain G89.29 Active 44370547 Problem COPD with exacerbation J44.1 Active 517943743 Problem Fibromyalgia M79.7 Active 128202853 Problem Peripheral polyneuropathy G62.9 Active 44113671 Problem Chest pain, unspecified type R07.9 Active 90366118 Problem Retinitis pigmentosa H35.52 Active 37568777 Problem Cervical disc disorder at C5-C6 level with radiculopathy M50.122 Active 972005567 Problem Carpal tunnel syndrome of left wrist G56.02 Active 872838835987176 Problem Anxiety state, unspecified F41.1 Active 550766339 Problem Low back pain M54.5 Active 162896381 Problem Major depressive disorder, recurrent episode, moderate F33.1 Active 747095238 Problem Calculus of gallbladder without cholecystitis without obstruction K80.20 Active 491420915 Problem Generalized anxiety disorder F41.1 Active 76137604 Problem Panic attacks F41.0 Active 694662272 Problem Type 2 diabetes mellitus with hyperglycemia, without long-term current use of insulin E11.65 Active 06374571 Problem Insomnia G47.00 Active 368747825 Problem 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 Active 76809133 Problem Tobacco use Z72.0 Active 773005284 Problem Mixed hyperlipidemia E78.2 Active 509298002 ALLERGIES Substance Reaction Event Type Date Status Sulfamethoxazole-Trimethoprim Unknown Drug Allergy May, Active Codeine Sulfate Unknown Drug Allergy May, Active ENCOUNTERS Encounter Location Date Diagnosis [facility] [id number] [place] [address] 88678- 7417 Jun, Cervical disc disorder at C5-C6 level with radiculopathy M50.122 [facility] [id number] [place] [address] 51239- 9759 Jun, [facility] [id number] [place] [address] 70993- 9659 Jun, Pneumonia of right lung due to infectious organism, unspecified part of lung J18.9 [facility] [id number] [place] [address] 80732- 3971 May, [facility] [id number] [place] [address] 68199- 2082 May, Cough R05 [place] [id number] [place] [address] 59181- 4094 May, [facility] [id number] [place] [address] 15421- 9425 May, COPD with exacerbation J44.1 [facility] [id number] [place] [address] 71877- 5645 May, Type 2 diabetes mellitus with hyperglycemia, without long- term current use of insulin E11.65 ; Peripheral polyneuropathy G62.9 ; Cough R05 and COPD with exacerbation J44.1 [facility] [id number] [place] [address] 96688- 0302 May, [facility] [id number] [place] [address] 62502- 0835 May, COPD with exacerbation J44.1 and Tobacco abuse counseling Z71.6 [facility] [id number] [place] [address] 05596- 1720 May, [facility] [id number] [place] [address] 14948- 4395 May, [facility] [id number] [place] [address] 89676 -7134 May, Numbness of left hand R20.0 and Carpal tunnel syndrome of left wrist G56.02 [facility] [id number] [place] [address] 11970- 5132 May, [facility] [id number] [place] [address] 07270- 2914 Apr, Type 2 diabetes mellitus with hyperglycemia, without long- term current use of insulin E11.65 [facility] [facility] [id number] [place] [address] 05535- 8487 March, Anxiety state, unspecified F41.1 [place] [id number] [place] [address] 19068- 7187 Feb, [facility] [facility] [id number] [place] [address] 57788- 4890 Feb, Medicare annual wellness visit, initial Z00.00 ; Type 2 diabetes mellitus with hyperglycemia, without long-term current use of insulin E11.65 ; Major depressive disorder, recurrent episode, moderate F33.1 ; Mixed hyperlipidemia E78.2 ; Fibromyalgia M79.7 ; Retinitis pigmentosa H35.52 ; Panic attacks F41.0 ; Facial skin lesion L98.9 ; Fullness of neck R22.1 and Screening for colon cancer Z12.11 [facility] [facility] [id number] [place] [address] 67715- 7068 Feb, Type 2 diabetes mellitus with hyperglycemia, without long- term current use of insulin E11.65 [facility] [id number] [place] [address] 45545- 5148 Jan, [facility] [id number] [place] [address] 93271- 1553 Jan, Asymptomatic microscopic hematuria R31.21 ; Chest pain, unspecified type R07.9 and Generalized anxiety disorder F41.1 [facility] [id number] [place] [address] 64936- 7273 Jan, [place] [id number] [place] [address] 66132- 4936 Jan, [facility] [address] [address] Dec, [facility] [id number] [place] [address] 28555- 5319 Dec, [facility] [id number] [place] [address] 05789- 9974 Dec, [facility] [id number] [place] [address] 25222- 8749 Dec, [facility] [id number] [place] [address] 59465- 7150 Dec, [facility] [id number] [place] [address] 21462- 1550 Dec, Tension headache G44.209 [facility] [id number] [place] [address] 03768- 1303 09 Dec, 2017 Elevated LFTs R79.89 ; Type 2 diabetes mellitus with hyperglycemia, without long-term current use of insulin E11.65 ; Abdominal bloating R14.0 and Other fatigue R53.83 [place] [id number] [place] [address] 68659- 1819 08 Dec, 2017 Elevated ALT measurement R74.0 [place] [address] [place] [address] 49848- 0678 Nov, Type 2 diabetes mellitus with hyperglycemia, without long- term current use of insulin E11.65 and Mixed hyperlipidemia E78.2 [place] [id number] [place] [address] 93117- 4563 Oct, [facility] [id number] [place] [address] 42941- 6013 Oct, Elevated ALT measurement R74.0 [facility] [address] [place] [address] 28184- 2372 Oct, [facility] [id number] [place] [address] 13616- 3010 Oct, [address] 30785- 6790 Oct, Breast cancer screening Z12.[address] 99467- 0382 Sep, Tension headache G44.209 ; Cervical disc disorder at C5-C6 level with radiculopathy M50.122 ; Other fatigue R53.83 ; Breast pain, left N64.4 ; Vertigo R42 and Abnormal tympanic membrane of left ear H73.92 [facility] [address] [place] [address] 64381 -4127 24 Sep, 2017 Screening breast examination Z12.[address] 59241- 5991 Sep, [address] 27218- 0992 Sep, Mixed hyperlipidemia E78.2 and Type 2 diabetes mellitus with hyperglycemia, without long-term current use of insulin E11.[address] 19567- 8387 Jul, [address] 25094- 3209 Jul, Lumbago with sciatica, right side M54.41 and Other chronic pain G89.29 [place] [id number] [place] [address] 03710- 4594 May, Type 2 diabetes mellitus with hyperglycemia, without long- term current use of insulin E11.65 ; Low back pain M54.5 ; Tobacco use Z72.0 ; Mixed hyperlipidemia E78.2 ; Lateral epicondylitis of right elbow M77.11 and 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 16566- 4791 Apr, [place] [id number] [address]- 4454 Apr, Low back pain M54.5 [facility] [id number] [place] [address] 95090- 2497 Apr, Pain in thoracic spine M54.6 [facility] [address] [address] March, Lumbosacral neuritis M54.17 [facility] [id number] [place] [address] 70731- 0057 March, Low back pain M54.5 [facility] [id number] [place] [address] 97284- 9888 March, [facility] [id number] [place] [address] 43335- 8148 March, [facility] [id number] [place] [address] 23126- 2812 March, [facility] [id number] [place] [address] 08564- 0030 Feb, [facility] [id number] [place] [address] 26817- 0462 Feb, [facility] [address] [address]- 5311 Feb, [facility] [id number] [place] [address] 36271- 6664 Feb, Low back pain M54.5 and Pain in thoracic spine M54.6 [facility] [address] [address]- 9823 Jan, Panic attacks F41.0 ; Type 2 diabetes mellitus with hyperglycemia, without long-term current use of insulin E11.65 and Other chest pain R07.89 [facility] [address] [address]- 9738 Jan, [facility] [id number] [place] [address] 35044- 6213 Jan, Type 2 diabetes mellitus with hyperglycemia, without long- term current use of insulin E11.65 [place] [id number] [place] [address] 71803- 6109 Jan, Pain in thoracic spine M54.6 [place] [id number] [place] [address] 79547- 3189 Jan, Type 2 diabetes mellitus with hyperglycemia, without long- term current use of insulin E11.65 and Elevated liver enzymes R74.8 [place] [id number] [place] [address] 28927- 6815 Jan, [place] [id number] [place] [address] 75619- 9175 Dec, Tobacco use Z72.0 ; Prediabetes R73.09 ; Elevated liver enzymes R74.8 ; Elevated fasting glucose R73.01 ; Elevated ALT measurement R74.0 ; Pain in thoracic spine M54.6 ; Panic attacks F41.0 and Type 2 diabetes mellitus with hyperglycemia, without long-term current use of insulin E11.65 [facility] [id number] [place] [address] 58714 -8928 Jun, Abdominal pain, right upper quadrant R10.11 [place] [id number] [place] [address] 71707- 4125 Jun, [place] [id number] [place] [address] 99821- 8066 Jun, [place] [id number] [place] [address] 51660- 9526 Jun, [place] [id number] [place] [address] 67386- 7341 May, Routine gynecological examination Z01.419 ; Encounter for Papanicolaou smear for cervical cancer screening Z12.4 ; Screening breast examination Z12.39 ; Vaginal discharge N89.8 and Candidal vaginitis B37.3 [place] [id number] [place] [address] 70367- 5264 May, [place] [address] 81917- 9593 May, Prediabetes R73.09 ; Elevated ALT measurement R74.0 ; Elevated fasting glucose R73.01 and Palpitations R00.2 [place] [address] 25207- 4603 Feb, [place] [id number] [place] [address] 38653- 5810 Feb, [place] [address] 97445- 3748 Feb, Generalized anxiety disorder F41.1 and Major depressive disorder, recurrent episode, moderate F33.[address] 59011- 4750 Feb, Generalized anxiety disorder F41.1 ; Low back pain M54.5 and Insomnia G47.00 [place] [id number] [place] [address] 50258- 9660 Jan, Elevated fasting glucose R73.01 and Elevated ALT measurement R74.0 [place] [id number] [place] [address] 49119- 6303 Jan, Generalized anxiety disorder F41.1 ; Low back pain M54.5 and Screening cholesterol level Z13.220 [place] [id number] [place] [address] 09967- 7352 Dec, Scoliosis M41.9 and Anxiety F41.9 [place] [address] 97243- 2428 Feb, [place] [id number] [place] [address] 71517- 7888 Feb, [place] [id number] [place] [address] 23989- 0301 Apr, [facility] [place] [facility] [address] [id number] [place] [address]- 8163 March, [facility] [place] [facility] [address] [id number] [place] [address] March, [facility] [place] [facility] [address] [id number] [place] [address]- 6362 March, [facility] [place] [facility] [address] [id number] [place] [address]- 0102 March, [facility] [address] [id number] [place] [address]- 7860 March, [facility] [place] [facility] [address] [id number] [place] [address]- 8552 March, [facility] [address] [id number] [place] [address]- 0580 March, [facility] [address] [id number] [place] [address]- 5615 March, [facility] [address] [id number] [place] [address]- 2395 Feb, [facility] [place] [facility] [address] [id number] [place] [address]- 3221 Feb, [facility] [place] [facility] [address] [id number] [place] [address]- 7173 Feb, [facility] [place] [facility] [address] [id number] [place] [address]- 3467 Feb, [facility] [place] [facility] [address] [id number] [place] [address]- 6298 Jan, [facility] [place] [facility] [address] [id number] [place] 0893 Jan, [facility] [place] [facility] [address] [id number] [place] [address]- 7050 Jan, [facility] [place] [facility] [address] [id number] [place] [address]- 3401 Jan, [facility] [place] [facility] [address] [id number] [place] [address]- 9165 Jan, [facility] [place] [facility] [address] [id number] [place] [address]- 6328 Jan, [facility] [place] [facility] [address] [id number] [place] [address]- 8560 Jan, [facility] [place] [facility] [address] [id number] [place] [address]- 2308 Dec, [facility] [place] [facility] [address] [id number] [place] [address]- 6550 Dec, [facility] [place] [facility] [address] [id number] [place] [address]- 1969 Dec, [facility] [place] [facility] [address] [id number] [place] [address]- 4402 Dec, [facility] [place] [facility] [address] [id number] [place] [address]- 6549 Dec, [facility] [place] [facility] [address] [id number] [place] [address]- 8711 Dec, [facility] [place] [facility] [address] [facility] [id number] [place] [address]- 3658 Nov, [facility] [place] [facility] [address] [id number] [place] [address]- 2438 Nov, [facility] [place] [facility] [address] [id number] [place] [address]- 0498 Nov, [facility] [place] [facility] [address] [id number] [place] [address]- 1918 Nov, [facility] [place] [facility] [address] [id number] [place] [address]- 4829 Nov, [facility] [place] [facility] [address] [id number] [address]- 8134 Nov, [facility] [place] [facility] [address] [id number] [place] [address]- 4417 Nov, [facility] [place] [facility] [address] [id number] [place] [address]- 7433 Oct, [facility] [place] [facility] [address] [id number] [place] [address]- 5269 Oct, [facility] [place] [facility] [address] [id number] [place] [address]- 4043 Oct, [facility] [place] [facility] [address] [id number] [place] [address]- 1332 Oct, [facility] [place] [facility] [address] [id number] [place] [address]- 5182 Sep, [facility] [place] [facility] [address] [id number] [place] [address]- 7019 Sep, [facility] [place] [facility] [address] [id number] [place] [address]- 8605 Sep, [facility] [place] [facility] [address] [id number] [place] [address]- 4863 Sep, [facility] [place] [facility] [address] [id number] [place] [address]- 5967 Sep, [facility] [place] [facility] [address] [id number] [place] [address]- 0258 Sep, [facility] [place] [facility] [address] [id number] [place] [address]- 3254 Aug, [facility] [place] [facility] [address] [id number] [place] [address]- 0569 Aug, [facility] [place] [facility] [address] [id number] [place] [address]- 5919 Aug, [facility] [place] [facility] [address] [id number] [place] [address]- 7264 Aug, [facility] [place] [facility] [address] [id number] [place] [address]- 8606 08 Aug, 2013 [facility] [address] [id number] [place] [address]- 7186 Aug, [facility] [place] [facility] [address] [id number] [place] [address]- 2546 Aug, [facility] [place] [facility] [address] [id number] [place] [address] 2546 Jul, [facility] [place] [facility] [address] [id number] [place] [address]- 2543 Jul, [facility] [address] [id number] [place] [address]- 8987 Jun, [facility] [place] [facility] [address] [id number] [place] [address]- 0796 May, [facility] [place] [facility] [address] [id number] [place] [address]- 7821 May, [facility] [place] [facility] [address] [id number] [place] [address]- 3936 May, [facility] [address] [id number] [place] [address]- 0385 Apr, [facility] [place] [facility] [address] [id number] [place] [address]- 5196 Apr, [facility] [place] [facility] [address] [id number] [address]- 7420 Apr, [facility] [place] [facility] [address] [id number] [place] [address] 2547 March, [facility] [place] [facility] [address] [id number] [place] [address]- 5466 March, [facility] [place] [facility] [address] [id number] [place] [address]- 8646 March, [facility] [place] [facility] [address] [id number] [place] [address]- 1976 Feb, [facility] [place] [facility] [address] [id number] [place] [address]- 6568 22 Feb, 2013 [facility] [address] [id number] [place] [address]- 4125 15 Feb, 2013 [facility] [address] [id number] [place] [address]- 9070 28 Jan, 2013 [facility] [address] [id number] [place] [address]- 8834 19 Jan, 2013 [facility] [address] [id number] [place] [address]- 9937 18 Jan, 2013 [facility] [address] [id number] [place] [address]- 2389 15 Jan, 2013 [facility] [address] [id number] [place]305 14 Jan, 2013 [facility] [address] [id number] [place] [address]- 5316 12 Jan, 2013 [facility] [address] [id number] [place] [address]- 5000 05 Jan, 2013 [facility] [address] [id number] [place] [address]- 8763 28 Dec, 2012 [facility] [address] [facility] [id number] [place] [address]- 8678 18 Dec, 2012 [facility] [address] [id number] [place] [address]- 3797 15 Dec, 2012 [facility] [address] [id number] [place] [address]- 7392 14 Dec, 2012 [facility] [address] [id number] [place] [address]- 5646 05 Dec, 2012 [facility] [address] [id number] [place] [address]- 4926 29 Nov, 2012 [facility] [address] [id number] [place] [address]- 4980 Nov, [facility] [place] [facility] [address] [id number] [place] [address]- 1671 Nov, [facility] [place] [facility] [address] [id number] [place] [address]- 4613 Nov, [facility] [place] [facility] [address] [id number] [place] [address]- 4849 Oct, [facility] [place] [facility] [address] [id number] [place] [address]- 4602 Oct, [facility] [place] [facility] [address] [id number] [place] [address]- 9303 Oct, [facility] [place] [facility] [address] [id number] [place] [address]- 6175 Oct, [facility] [place] [facility] [address] [id number] [place] [address]- 1347 Oct, [facility] [place] [facility] [address] [id number] [place] [address]- 3430 Oct, [facility] [place] [facility] [address] [id number] [place] [address]- 4015 Oct, [facility] [place] [facility] [address] [id number] [place] [address] Oct, [facility] [place] [facility] [address] [id number] [place] [address] Oct, [facility] [place] [facility] [address] [id number] [place] [address] 16 Sep, 2012 [facility] [place] [facility] [address] [id number] [place] [address] Sep, [facility] [place] [facility] [address] [id number] [place] [address] 12 Sep, 2012 [facility] [place] [facility] [address] [id number] [place] [address] Sep, [facility] [place] [facility] [address] [id number] [place] [address] 08 Sep, 2012 [facility] [place] [facility] [address] [id number] [place] [address] 25 Aug, 2011 [facility] [place] [facility] [address] [id number] [place] [address] 25 Aug, 2011 [facility] [place] [facility] [address] [id number] [place] [address] 17 Aug, 2011 [facility] [place] [facility] [address] [id number] [place] [address] 17 Aug, 2011 [facility] [place] [facility] [address] [id number] [place] [address] 16 Aug, 2011 [facility] [place] [facility] [address] [id number] [place] [address] 11 Aug, 2012 [facility] [place] [facility] [address] [id number] [place] [address] 11 Aug, 2012 [facility] [place] [facility] [address] [id number] [place] [address] 10 Aug, 2012 [facility] [place] [facility] [address] [id number] [place] [address] 10 Aug, 2012 [facility] [place] [facility] [address] [facility] [id number] [place] [address] 09 Aug, 2012 [facility] [place] [facility] [address] [id number] [place] [address] 05 Aug, 2012 [facility] [place] [facility] [address] [id number] [place] [address] 04 Aug, 2012 [facility] [place] [facility] [address] [id number] [place] [address] 17 Sep, 2011 [facility] [place] [facility] [address] [id number] [place] [address] 13 Sep, 2011 [facility] [place] [facility] [address] [id number] [place] [address] 13 Jul, 2012 [facility] [place] [facility] [address] [id number] [place] [address] 11 Jul, 2012 [facility] [place] [facility] [address] [id number] [place] [address] 10 Jul, 2012 [facility] [place] [facility] [address] [id number] [place] [address] 08 Jul, 2012 [facility] [place] [facility] [address] [id number] [place] [address] 16 Jun, 2012 [facility] [place] [facility] [address] [id number] [place] [address] 14 Jun, 2012 [facility] [place] [facility] [address] [id number] [place] [address] 17 May, 2012 [facility] [place] [facility] [address] [id number] [place] [address] 17 May, 2012 [facility] [place] [facility] [address] [id number] [place] [address] May, [facility] [place] [facility] [address] [id number] [place] [address] May, [facility] [place] [facility] [address] [id number] [place] [address] Apr, [facility] [place] [facility] [address] [id number] [place] [address] Apr, [facility] [facility] [address] [id number] [place] [address] Apr, [facility] [place] [facility] [address] [id number] [place] [address] Apr, [facility] [place] [facility] [address] [id number] [place] [address] Apr, [facility] [place] [facility] [address] [id number] [place] [address] March, [facility] [place] [facility] [address] [id number] [place] [address] March, [facility] [address] [id number] [place] [address] March, [facility] [place] [facility] [address] [id number] [place] [address] March, [facility] [place] [facility] [address] [id number] [place] [address] March, [facility] [place] [facility] [address] [id number] [place] [address] Feb, [facility] [place] [facility] [address] [id number] [place] [address] Feb, [facility] [place] [facility] [address] [id number] [place] [address] Jan, [facility] [place] [facility] [address] [id number] [place] [address] Jan, [facility] [place] [facility] [address] [id number] [place] [address] Jan, [facility] [place] [facility] [address] [id number] [place] [address] Dec, [facility] [place] [facility] [address] [id number] [place] [address] Nov, [facility] [place] [facility] [address] [id number] [place] [address] Nov, [facility] [place] [facility] [address] [id number] [place] [address] Nov, [facility] [place] [facility] [address] [id number] [place] [address] Nov, [facility] [place] [facility] [address] [id number] [place] [address] Oct, [facility] [place] [facility] [address] [id number] [place] [address] Oct, [facility] [place] [facility] [address] [id number] [place] [address] 18 Sep, 2011 [facility] [place] [facility] [address] [id number] [place] [address] 18 Sep, 2011 [facility] [address] [id number] [place] [address] 10 Sep, 2011 [facility] [place] [address] [id number] [place] [address] 10 Sep, 2011 [facility] [place] [facility] [address] [id number] [place] [address] 08 Sep, 2011 [facility] [place] [facility] [address] [id number] [place] [address] 16 Jun, 2011 [facility] [place] [facility] [address] [id number] [place] [address] Dec, [facility] [place] [facility] [address] [id number] [place] [address] Sep, [facility] [place] [facility] [address] [id number] [place] [address] 29 Aug, 2010 [facility] [place] [facility] [address] [id number] [place] [address] Aug, [facility] [place] [facility] [address] [id number] [place] [address] Aug, [facility] [place] [facility] [address] [id number] [place] [address] Aug, [facility] [place] [facility] [address] [id number] [place] [address] Aug, [facility] [place] [facility] [address] [id number] [place] [address] Jun, [facility] [place] [facility] [address] [id number] [place] [address] 13 Feb, 2010 [facility] [place] [facility] [address] [id number] [place] [address] Sep, [facility] [address] [facility] [id number] [address] Aug, [facility] [address] [facility] [id number] [place] [address] Apr, [facility] [address] [facility] [id number] [place] [address] March, IMMUNIZATIONS No Known Immunizations SOCIAL HISTORY Never Assessed REASON FOR VISIT Cough-STEVE reis PLAN OF CARE Activity Details Follow Up as scheduled Reason: VITAL SIGNS Height 61 in 2018-05-22 Weight 172.6 lbs 2018-05-22 Temperature 97.7 degrees Fahrenheit 2018-05-22 Heart Rate 84 bpm 2018-05-22 Respiratory Rate 20 2018-05-22 Oximetry post-neb treatment:98 % 2018-05-22 BMI 32.61 kg/m2 2018-05-22 Blood pressure systolic 132 mmHg 2018-05-22 Blood pressure diastolic 82 mmHg 2018-05-22 MEDICATIONS Medication Instructions Dosage Frequency Start Date End Date Duration Status Blood Glucose Monitor System w/Device ICD10- E11.65 2 times a day -3 times weekly. as directed Jan, Active Metformin HCl 500 mg Orally Twice a day 1 tablet with meals 12h 30 days Active Rosuvastatin Calcium 20 mg TAKE ONE TABLET BY MOUTH ONCE DAILY 30 Active Metoprolol Succinate ER 50 MG Orally Once a day 1 tablet 24h Active Cyclobenzaprine HCl 10 MG Orally Three times a day 1 tablet as needed 8h Active Albuterol Sulfate (2.5 MG/3ML) 0.083% Inhalation every 6 hrs for COPD exacerbation 3 ml as needed May, Active Nebulizer/Tubing/Mouthpiece - Use as directed with Albuterol Sulfate Inhalation solution May, lifetime Active Blood Glucose Test - and Lancets ICD10- E11.65 2 times a day- 3 times weekly as directed Jan, Active Naproxen 500 MG Orally Twice a day 1 tablet 12h Active PredniSONE 20 MG Orally Once a day 1 tablet 24h Active RESULTS No Results PROCEDURES Procedure Date Ordered Result Body Site NEB/MDI RX INITIAL May 22, 2018 ALBUTEROL INHAL UNIT DOSE 1 MG May 22, 2018 INSTRUCTIONS MEDICATIONS ADMINISTERED No Known Medications MEDICAL (GENERAL) HISTORY Type Description Date Medical History Scoliosis Medical History Bipolar Surgical History right hip replacement Surgical History c-sections x4 Hospitalization History Pneumonia 2012
[2019-02-03] MEDS ORDERED: LACTATED RINGERS 1,000 ML IV STA (10:50)
--- OUTSIDE RECORDS SUMMARY | 2019-02-03 10:50 | XMS REPORT ---
Author Author CHLOE MCGOVERN [facility] Address [address] [place] [address] Care Team Providers Care Jailkeeper Name Role Phone MARJORIE MCGOVERNTA Unavailable PROBLEMS Type Condition ICD9-CM Code GBU23-PY Code Onset Dates Condition Status SNOMED Code Problem Lumbago with sciatica, right side M54.41 Active 146124042 Problem Tension headache G44.209 Active 609355080 Problem Other chronic pain G89.29 Active 91306319 Problem COPD with exacerbation J44.1 Active 854951164 Problem Fibromyalgia M79.7 Active 126671398 Problem Peripheral polyneuropathy G62.9 Active 16875299 Problem Chest pain, unspecified type R07.9 Active 80285708 Problem Retinitis pigmentosa H35.52 Active 28300568 Problem Cervical disc disorder at C5-C6 level with radiculopathy M50.122 Active 961561284 Problem Carpal tunnel syndrome of left wrist G56.02 Active 496373638435770 Problem Anxiety state, unspecified F41.1 Active 946736802 Problem Low back pain M54.5 Active 697233673 Problem Major depressive disorder, recurrent episode, moderate F33.1 Active 719233647 Problem Calculus of gallbladder without cholecystitis without obstruction K80.20 Active 195896924 Problem Generalized anxiety disorder F41.1 Active 41419507 Problem Panic attacks F41.0 Active 612137449 Problem Type 2 diabetes mellitus with hyperglycemia, without long-term current use of insulin E11.65 Active 52805505 Problem Insomnia G47.00 Active 257796115 Problem 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 Active 10550542 Problem Tobacco use Z72.0 Active 845434834 Problem Mixed hyperlipidemia E78.2 Active 479426540 ALLERGIES Substance Reaction Event Type Date Status Sulfamethoxazole-Trimethoprim Unknown Drug Allergy May, Active Codeine Sulfate Unknown Drug Allergy May, Active ENCOUNTERS Encounter Location Date Diagnosis [facility] [id number] [place] [address] 69384- 0243 Jun, Cervical disc disorder at C5-C6 level with radiculopathy M50.122 [facility] [id number] [place] [address] 05301- 7023 Jun, [facility] [id number] [place] [address] 45199- 8187 Jun, Pneumonia of right lung due to infectious organism, unspecified part of lung J18.9 [facility] [id number] [place] [address] 34265- 4975 May, [facility] [id number] [place] [address] 21067- 7879 May, Cough R05 [place] [id number] [place] [address] 89493- 5528 May, [facility] [id number] [place] [address] 56339- 1532 May, COPD with exacerbation J44.1 [facility] [id number] [place] [address] 11695- 5208 May, Type 2 diabetes mellitus with hyperglycemia, without long- term current use of insulin E11.65 ; Peripheral polyneuropathy G62.9 ; Cough R05 and COPD with exacerbation J44.1 [facility] [id number] [place] [address] 36096- 3877 May, [facility] [id number] [place] [address] 89503- 8016 May, COPD with exacerbation J44.1 and Tobacco abuse counseling Z71.6 [facility] [id number] [place] [address] 99492- 1633 May, [facility] [id number] [place] [address] 18006- 8937 May, [facility] [id number] [place] [address] 35801 -8485 May, Numbness of left hand R20.0 and Carpal tunnel syndrome of left wrist G56.02 [place] [id number] [place] [address] 88319- 9041 May, [place] [id number] [place] [address] 12239- 6562 Apr, Type 2 diabetes mellitus with hyperglycemia, without long- term current use of insulin E11.65 [place] [id number] [place] [address] 25463- 9438 March, Anxiety state, unspecified F41.1 [id number] [place] [address] 07854- 6437 Feb, [place] [id number] [place] [address] 52228- 9983 Feb, Medicare annual wellness visit, initial Z00.00 ; Type 2 diabetes mellitus with hyperglycemia, without long-term current use of insulin E11.65 ; Major depressive disorder, recurrent episode, moderate F33.1 ; Mixed hyperlipidemia E78.2 ; Fibromyalgia M79.7 ; Retinitis pigmentosa H35.52 ; Panic attacks F41.0 ; Facial skin lesion L98.9 ; Fullness of neck R22.1 and Screening for colon cancer Z12.11 [place] [id number] [place] [address] 37662- 2833 Feb, Type 2 diabetes mellitus with hyperglycemia, without long- term current use of insulin E11.65 [place] [id number] [place] [address] 21058- 5695 Jan, [place] [id number] [place] [address] 76277- 6505 Jan, Asymptomatic microscopic hematuria R31.21 ; Chest pain, unspecified type R07.9 and Generalized anxiety disorder F41.1 [place] [id number] [place] [address] 47032- 1345 Jan, [place] [id number] [place] [address] 59320- 3982 Jan, [facility] [address] [address] Dec, [facility] [id number] [place] [address] 64279- 4568 Dec, [facility] [id number] [place] [address] 95624- 5995 Dec, [facility] [id number] [place] [address] 93475- 6975 Dec, [facility] [id number] [place] [address] 30588- 3777 Dec, [facility] [id number] [place] [address] 21098- 9260 Dec, Tension headache G44.209 [facility] [id number] [place] [address] 94811- 7636 09 Dec, 2017 Elevated LFTs R79.89 ; Type 2 diabetes mellitus with hyperglycemia, without long-term current use of insulin E11.65 ; Abdominal bloating R14.0 and Other fatigue R53.83 [place] [id number] [place] [address] 47268- 1729 08 Dec, 2017 Elevated ALT measurement R74.0 [place] [address] [place] [address] 57708- 4635 Nov, Type 2 diabetes mellitus with hyperglycemia, without long- term current use of insulin E11.65 and Mixed hyperlipidemia E78.2 [place] [id number] [place] [address] 99011- 0557 Oct, [place] [id number] [place] [address] 48656- 2723 Oct, Elevated ALT measurement R74.0 [facility] [address] [place] [address] 31974- 6534 Oct, [facility] [id number] [place] [address] 40155- 8820 Oct, [address] 07415- 6347 Oct, Breast cancer screening Z12.[address] 15513- 5850 Sep, Tension headache G44.209 ; Cervical disc disorder at C5-C6 level with radiculopathy M50.122 ; Other fatigue R53.83 ; Breast pain, left N64.4 ; Vertigo R42 and Abnormal tympanic membrane of left ear H73.92 [facility] [address] [place] [address] 96948 -1125 24 Sep, 2017 Screening breast examination Z12.[address] 27698- 3298 Sep, [address] 09001- 6399 Sep, Mixed hyperlipidemia E78.2 and Type 2 diabetes mellitus with hyperglycemia, without long-term current use of insulin E11.[address] 97997- 1684 Jul, [address] 46313- 2111 Jul, Lumbago with sciatica, right side M54.41 and Other chronic pain G89.29 [place] [id number] [place] [address] 43632- 6523 May, Type 2 diabetes mellitus with hyperglycemia, without long- term current use of insulin E11.65 ; Low back pain M54.5 ; Tobacco use Z72.0 ; Mixed hyperlipidemia E78.2 ; Lateral epicondylitis of right elbow M77.11 and 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 93734- 9742 Apr, [place] [id number] [address]- 1556 Apr, Low back pain M54.5 [facility] [id number] [place] [address] 25004- 4608 Apr, Pain in thoracic spine M54.6 [facility] [address] [address] March, Lumbosacral neuritis M54.17 [facility] [id number] [place] [address] 93342- 7788 March, Low back pain M54.5 [facility] [id number] [place] [address] 36930- 7215 March, [facility] [id number] [place] [address] 06152- 5227 March, [facility] [id number] [place] [address] 08211- 1015 March, [facility] [id number] [place] [address] 07736- 7325 Feb, [facility] [id number] [place] [address] 35113- 7421 Feb, [facility] [address] [address]- 5847 Feb, [facility] [id number] [place] [address] 65550- 8232 Feb, Low back pain M54.5 and Pain in thoracic spine M54.6 [facility] [address] [address]- 6060 Jan, Panic attacks F41.0 ; Type 2 diabetes mellitus with hyperglycemia, without long-term current use of insulin E11.65 and Other chest pain R07.89 [facility] [address] [address]- 3520 Jan, [facility] [id number] [place] [address] 60756- 7842 Jan, Type 2 diabetes mellitus with hyperglycemia, without long- term current use of insulin E11.65 [place] [id number] [place] [address] 32693- 7370 Jan, Pain in thoracic spine M54.6 [place] [id number] [place] [address] 59570- 2144 Jan, Type 2 diabetes mellitus with hyperglycemia, without long- term current use of insulin E11.65 and Elevated liver enzymes R74.8 [place] [id number] [place] [address] 38535- 8669 Jan, [place] [id number] [place] [address] 58755- 2223 Dec, Tobacco use Z72.0 ; Prediabetes R73.09 ; Elevated liver enzymes R74.8 ; Elevated fasting glucose R73.01 ; Elevated ALT measurement R74.0 ; Pain in thoracic spine M54.6 ; Panic attacks F41.0 and Type 2 diabetes mellitus with hyperglycemia, without long-term current use of insulin E11.65 [facility] [id number] [place] [address] 18825 -2018 Jun, Abdominal pain, right upper quadrant R10.11 [place] [id number] [place] [address] 54906- 4066 Jun, [place] [id number] [place] [address] 98151- 3608 Jun, [place] [id number] [place] [address] 16834- 8434 Jun, [place] [id number] [place] [address] 39746- 3075 May, Routine gynecological examination Z01.419 ; Encounter for Papanicolaou smear for cervical cancer screening Z12.4 ; Screening breast examination Z12.39 ; Vaginal discharge N89.8 and Candidal vaginitis B37.3 [place] [id number] [place] [address] 86787- 7121 May, [place] [address] 08753- 5109 May, Prediabetes R73.09 ; Elevated ALT measurement R74.0 ; Elevated fasting glucose R73.01 and Palpitations R00.2 [place] [address] 56134- 3259 Feb, [place] [id number] [place] [address] 31213- 8410 Feb, [place] [address] 57379- 8906 Feb, Generalized anxiety disorder F41.1 and Major depressive disorder, recurrent episode, moderate F33.[address] 97044- 9631 Feb, Generalized anxiety disorder F41.1 ; Low back pain M54.5 and Insomnia G47.00 [place] [id number] [place] [address] 46404- 3602 Jan, Elevated fasting glucose R73.01 and Elevated ALT measurement R74.0 [place] [id number] [place] [address] 42341- 9014 Jan, Generalized anxiety disorder F41.1 ; Low back pain M54.5 and Screening cholesterol level Z13.220 [place] [id number] [place] [address] 64302- 0560 Dec, Scoliosis M41.9 and Anxiety F41.9 [place] [address] 33376- 9503 Feb, [place] [id number] [place] [address] 95358- 9885 Feb, [place] [id number] [place] [address] 14570- 2115 Apr, [facility] [place] [facility] [address] [id number] [place] [address]- 1281 March, [facility] [place] [facility] [address] [id number] [place] 9827 March[facility] [place] [facility] [address] [id number] [place] [address]- 9858 March, [facility] [place] [facility] [address] [id number] [place] [address]- 9772 March, [facility] [address] [id number] [place] [address]- 0818 March, [facility] [place] [facility] [address] [id number] [place] [address]- 2660 March, [facility] [address] [id number] [place] [address]- 3339 March, [facility] [address] [id number] [place] [address]- 3309 March, [facility] [address] [id number] [place] [address]- 6585 Feb, [facility] [place] [facility] [address] [id number] [place] [address]- 6542 Feb, [facility] [place] [facility] [address] [id number] [place] [address]- 7725 Feb, [facility] [place] [facility] [address] [id number] [place] [address]- 1157 Feb, [facility] [place] [facility] [address] [id number] [place] [address]- 4770 Jan, [facility] [place] [facility] [address] [id number] [place] 5788 Jan, [facility] [place] [facility] [address] [id number] [place] [address]- 7277 Jan, [facility] [place] [facility] [address] [id number] [place] [address]- 4360 Jan, [facility] [place] [facility] [address] [id number] [place] [address]- 3770 Jan, [facility] [place] [facility] [address] [id number] [place] [address]- 6636 Jan, [facility] [place] [facility] [address] [id number] [place] [address]- 5630 Jan, [facility] [place] [facility] [address] [id number] [place] [address]- 2598 Dec, [facility] [place] [facility] [address] [id number] [place] [address]- 9571 Dec, [facility] [place] [facility] [address] [id number] [place] [address]- 8462 Dec, [facility] [place] [facility] [address] [id number] [place] [address]- 7794 Dec, [facility] [place] [facility] [address] [id number] [place] [address]- 3729 Dec, [facility] [place] [facility] [address] [id number] [place] [address]- 1848 Dec, [facility] [place] [facility] [address] [facility] [id number] [place] [address]- 3399 Nov, [facility] [place] [facility] [address] [id number] [place] [address]- 6495 Nov, [facility] [place] [facility] [address] [id number] [place] [address]- 3242 Nov, [facility] [place] [facility] [address] [id number] [place] [address]- 3305 Nov, [facility] [place] [facility] [address] [id number] [place] [address]- 5593 Nov, [facility] [place] [facility] [address] [id number] [address]- 8629 Nov, [facility] [place] [facility] [address] [id number] [place] [address]- 0383 Nov, [facility] [place] [facility] [address] [id number] [place] [address]- 0877 Oct, [facility] [place] [facility] [address] [id number] [place] [address]- 1699 Oct, [facility] [place] [facility] [address] [id number] [place] [address]- 6873 Oct, [facility] [place] [facility] [address] [id number] [place] [address]- 4949 Oct, [facility] [place] [facility] [address] [id number] [place] [address]- 0901 Sep, [facility] [place] [facility] [address] [id number] [place] [address]- 5749 Sep, [facility] [place] [facility] [address] [id number] [place] [address]- 9976 Sep, [facility] [place] [facility] [address] [id number] [place] [address]- 3423 Sep, [facility] [place] [facility] [address] [id number] [place] [address]- 8485 Sep, [facility] [place] [facility] [address] [id number] [place] [address]- 1595 Sep, [facility] [place] [facility] [address] [id number] [place] [address]- 6899 Aug, [facility] [place] [facility] [address] [id number] [place] [address]- 1461 Aug, [facility] [place] [facility] [address] [id number] [place] [address]- 5765 Aug, [facility] [place] [facility] [address] [id number] [place] [address]- 8992 Aug, [facility] [place] [facility] [address] [id number] [place] [address]- 8106 08 Aug, 2013 [facility] [address] [id number] [place] [address]- 7970 Aug, [facility] [place] [facility] [address] [id number] [place] [address]- 2546 Aug, [facility] [place] [facility] [address] [id number] [place] [address] 2546 Jul, [facility] [place] [facility] [address] [id number] [place] [address]- 2547 Jul, [facility] [address] [id number] [place] [address]- 0847 Jun, [facility] [place] [facility] [address] [id number] [place] [address]- 5226 May, [facility] [place] [facility] [address] [id number] [place] [address]- 9909 May, [facility] [place] [facility] [address] [id number] [place] [address]- 6612 May, [facility] [address] [id number] [place] [address]- 4818 Apr, [facility] [place] [facility] [address] [id number] [place] [address]- 9856 Apr, [facility] [place] [facility] [address] [id number] [address]- 6848 Apr, [facility] [place] [facility] [address] [id number] [place] [address] 2542 March, [facility] [place] [facility] [address] [id number] [place] [address]- 2996 March, [facility] [place] [facility] [address] [id number] [place] [address]- 4886 March, [facility] [place] [facility] [address] [id number] [place] [address]- 1756 Feb, [facility] [place] [facility] [address] [id number] [place] [address]- 8142 22 Feb, 2013 [facility] [address] [id number] [place] [address]- 4702 15 Feb, 2013 [facility] [address] [id number] [place] [address]- 3074 28 Jan, 2013 [facility] [address] [id number] [place] [address]- 5010 19 Jan, 2013 [facility] [address] [id number] [place] [address]- 0814 18 Jan, 2013 [facility] [address] [id number] [place] [address]- 8466 15 Jan, 2013 [facility] [address] [id number] [place] 4770 14 Jan, 2013 [facility] [address] [id number] [place] [address]- 9274 12 Jan, 2013 [facility] [address] [id number] [place] [address]- 6496 05 Jan, 2013 [facility] [address] [id number] [place] [address]- 8698 28 Dec, 2012 [facility] [address] [facility] [id number] [place] [address]- 5618 18 Dec, 2012 [facility] [address] [id number] [place] [address]- 3184 15 Dec, 2012 [facility] [address] [id number] [place] [address]- 8751 14 Dec, 2012 [facility] [address] [id number] [place] [address]- 1676 05 Dec, 2012 [facility] [address] [id number] [place] [address]- 8276 29 Nov, 2012 [facility] [address] [id number] [place] [address]- 0981 Nov, [facility] [place] [facility] [address] [id number] [place] [address]- 3950 Nov, [facility] [place] [facility] [address] [id number] [place] [address]- 8156 Nov, [facility] [place] [facility] [address] [id number] [place] [address]- 9142 Oct, [facility] [place] [facility] [address] [id number] [place] [address]- 1077 Oct, [facility] [place] [facility] [address] [id number] [place] [address]- 4463 Oct, [facility] [place] [facility] [address] [id number] [place] [address]- 5385 Oct, [facility] [place] [facility] [address] [id number] [place] [address]- 3294 Oct, [facility] [place] [facility] [address] [id number] [place] [address] Oct, [facility] [place] [facility] [address] [id number] [place] [address] Oct, [facility] [place] [facility] [address] [id number] [place] [address] Oct, [facility] [place] [facility] [address] [id number] [place] [address] Oct, [facility] [place] [facility] [address] [id number] [place] [address] 16 Sep, 2012 [facility] [place] [facility] [address] [id number] [place] [address] Sep, [facility] [place] [facility] [address] [id number] [place] [address] 12 Sep, 2012 [facility] [place] [facility] [address] [id number] [place] [address] Sep, [facility] [place] [facility] [address] [id number] [place] [address] 08 Sep, 2012 [facility] [place] [facility] [address] [id number] [place] [address]- [address] 25 Aug, 2011 [facility] [place] [facility] [address] [id number] [place] [address] 25 Aug, 2011 [facility] [place] [facility] [address] [id number] [place] [address] 17 Aug, 2011 [facility] [place] [facility] [address] [id number] [place] [address] 17 Aug, 2011 [facility] [place] [facility] [address] [id number] [place] [address]- [address] 16 Aug, 2011 [facility] [place] [facility] [address] [id number] [place] [address] 11 Aug, 2012 [facility] [place] [facility] [address] [id number] [place] [address]- [address] 11 Aug, 2012 [facility] [place] [facility] [address] [id number] [place] [address]- [address] 10 Aug, 2012 [facility] [place] [facility] [address] [id number] [place] [address]- [address] 10 Aug, 2012 [facility] [place] [facility] [address] [facility] [id number] [place] [address]- [address] 09 Aug, 2012 [facility] [place] [facility] [address] [id number] [place] [address]- [address] 05 Aug, 2012 [facility] [place] [facility] [address] [id number] [place] [address]- [address] 04 Aug, 2012 [facility] [place] [facility] [address] [id number] [place] [address]- [address] 17 Sep, 2011 [facility] [place] [facility] [address] [id number] [place] [address]- [address] 13 Sep, 2011 [facility] [place] [facility] [address] [id number] [place] [address]- [address] 13 Jul, 2012 [facility] [place] [facility] [address] [id number] [place] [address]- [address] 11 Jul, 2012 [facility] [place] [facility] [address] [id number] [place] [address]- [address] 10 Jul, 2012 [facility] [place] [facility] [address] [id number] [place] [address] 08 Jul, 2012 [facility] [place] [facility] [address] [id number] [place] [address] 16 Jun, 2012 [facility] [place] [facility] [address] [id number] [place] [address] 14 Jun, 2012 [facility] [place] [facility] [address] [id number] [place] [address] 17 May, 2012 [facility] [place] [facility] [address] [id number] [place] [address]- [address] 17 May, 2012 [facility] [place] [facility] [address] [id number] [place] [address] May, [facility] [place] [facility] [address] [id number] [place] [address] May, [facility] [place] [facility] [address] [id number] [place] [address] Apr, [facility] [place] [facility] [address] [id number] [place] [id number] Apr, [facility] [place] [facility] [address] [id number] [place] [address] Apr, [facility] [place] [facility] [address] [id number] [place] [address] Apr, [facility] [place] [facility] [address] [id number] [place] [address] Apr, [facility] [place] [facility] [address] [id number] [place] [address] March, [facility] [place] [facility] [address] [id number] [place] [address] March, [facility] [address] [id number] [place] [address] March, [facility] [place] [facility] [address] [id number] [place] [address] March, [facility] [place] [facility] [address] [id number] [place] [address] March, [facility] [place] [facility] [address] [id number] [place] [address] Feb, [facility] [place] [facility] [address] [id number] [place] [address] Feb, [facility] [place] [facility] [address] [id number] [place] [address] Jan, [facility] [place] [facility] [address] [id number] [id number] [address] Jan, [facility] [place] [facility] [address] [id number] [place] [address] Jan, [facility] [place] [facility] [address] [id number] [place] [address] Dec, [facility] [place] [facility] [address] [id number] [place] [address] Nov, [facility] [place] [facility] [address] [id number] [place] [address] Nov, [facility] [place] [facility] [address] [id number] [place] [address] Nov, [facility] [place] [facility] [address] [id number] [place] [address] Nov, [facility] [place] [facility] [address] [id number] [place] [address] Oct, [facility] [place] [facility] [address] [id number] [place] [address] Oct, [facility] [place] [facility] [address] [id number] [place] [address] 18 Sep, 2011 [facility] [place] [facility] [address] [id number] [place] [address] 18 Sep, 2011 [facility] [place] [facility] [address] [id number] [place] [address] 10 Sep, 2011 [facility] [place] [facility] [address] [id number] [place] [address] 10 Sep, 2011 [facility] [place] [facility] [address] [id number] [place] [address] 08 Sep, 2011 [facility] [place] [facility] [address] [id number] [place] [address] 16 Jun, 2011 [facility] [place] [facility] [address] [id number] [place] [address] Dec, [facility] [place] [facility] [address] [id number] [place] [address] Sep, [facility] [place] [facility] [address] [id number] [place] [address] 29 Aug, 2010 [facility] [place] [facility] [address] [id number] [place] [address] Aug, [facility] [place] [facility] [address] [id number] [place] [address] Aug, [facility] [place] [facility] [address] [id number] [place] [address] Aug, [facility] [place] [facility] [address] [id number] [place] [address] Aug, [facility] [place] [facility] [address] [id number] [place] [address] Jun, [facility] [place] [facility] [address] [id number] [place] [address] 13 Feb, 2010 [facility] [place] [facility] [address] [id number] [place] [address] Sep, [facility] [address] [facility] [id number] [place] [address] Aug, [facility] [address] [facility] [id number] [place] [address] Apr, [facility] [address] [facility] [id number] [place] [address] March, IMMUNIZATIONS No Known Immunizations SOCIAL HISTORY Never Assessed REASON FOR VISIT Fever, cough , running nose -- osvaldo lieberman PLAN OF CARE Activity Details Follow Up prn Reason:cough VITAL SIGNS Height 61 in 2018-05-31 Weight 173.0 lbs 2018-05-31 Temperature 98.6 degrees Fahrenheit 2018-05-31 Heart Rate 86 bpm 2018-05-31 Respiratory Rate 22 2018-05-31 BMI 32.68 kg/m2 2018-05-31 Blood pressure systolic 130 mmHg 2018-05-31 Blood pressure diastolic 82 mmHg 2018-05-31 MEDICATIONS Medication Instructions Dosage Frequency Start Date End Date Duration Status Cyclobenzaprine HCl 10 MG Orally Three times a day 1 tablet as needed 8h Active Blood Glucose Test - and Lancets ICD10- E11.65 2 times a day- 3 times weekly as directed Jan, Active Blood Glucose Monitor System w/Device ICD10- E11.65 2 times a day -3 times weekly. as directed Jan, Active GuaiFENesin ER 600 MG Orally every 12 hrs 1 tablet as needed 12h May, Jun, 07 days Active Naproxen 500 MG Orally Twice a day 1 tablet 12h Active Albuterol Sulfate (2.5 MG/3ML) 0.083% Inhalation every 6 hrs for COPD exacerbation 3 ml as needed May, Active Zyrtec Allergy 10 mg Orally Once a day 1 tablet 24h May, Jun, 30 day(s) Active Metoprolol Succinate ER 50 MG Orally Once a day 1 tablet 24h Active PredniSONE 20 MG Orally Once a day 1 tablet 24h Active Nebulizer/Tubing/Mouthpiece - Use as directed with Albuterol Sulfate Inhalation solution May, lifetime Active Rosuvastatin Calcium 20 mg TAKE ONE TABLET BY MOUTH ONCE DAILY 30 Active Tessalon Perles 100 mg Orally Three times a day 1 capsule as needed 8h May, Jun, 10 days Active Metformin HCl 1000 MG Orally Twice a day 1 tablet with a meal 12h 90 days Active RESULTS Name Result Date Reference Range Xray : Chest 2 View (IN HOUSE) 2018-05-31 PROCEDURES Procedure Date Ordered Result Body Site X-RAY EXAM CHEST 2 VIEWS May 31, 2018 INSTRUCTIONS MEDICATIONS ADMINISTERED No Known Medications MEDICAL (GENERAL) HISTORY Type Description Date Medical History Scoliosis Medical History Bipolar Surgical History right hip replacement Surgical History c-sections x4 Hospitalization History Pneumonia 2012
--- OUTSIDE RECORDS SUMMARY | 2019-02-03 10:50 | XMS REPORT ---
Author Author [facility] Address [address] [place] [address] Care Team Providers Care Doctor Of Osteopathy Name Role Phone MARJORIE MCGOVERNTA Unavailable PROBLEMS Type Condition ICD9-CM Code IGB55-ZZ Code Onset Dates Condition Status SNOMED Code Problem Lumbago with sciatica, right side M54.41 Active 886306851 Problem Tension headache G44.209 Active 304542581 Problem Other chronic pain G89.29 Active 53173701 Problem COPD with exacerbation J44.1 Active 270277727 Problem Fibromyalgia M79.7 Active 274444067 Problem Peripheral polyneuropathy G62.9 Active 82825114 Problem Chest pain, unspecified type R07.9 Active 27649294 Problem Retinitis pigmentosa H35.52 Active 02089849 Problem Cervical disc disorder at C5-C6 level with radiculopathy M50.122 Active 557834654 Problem Carpal tunnel syndrome of left wrist G56.02 Active 539447761056231 Problem Anxiety state, unspecified F41.1 Active 947859355 Problem Low back pain M54.5 Active 273873025 Problem Major depressive disorder, recurrent episode, moderate F33.1 Active 017775154 Problem Calculus of gallbladder without cholecystitis without obstruction K80.20 Active 787096977 Problem Generalized anxiety disorder F41.1 Active 28236668 Problem Panic attacks F41.0 Active 494861408 Problem Type 2 diabetes mellitus with hyperglycemia, without long-term current use of insulin E11.65 Active 16191453 Problem Insomnia G47.00 Active 203292293 Problem 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 Active 40766671 Problem Tobacco use Z72.0 Active 727432140 Problem Mixed hyperlipidemia E78.2 Active [id number] ALLERGIES No Information ENCOUNTERS Encounter Location Date Diagnosis [facility] [address] [facility] [id number] [address] Jun, Cervical disc disorder at C5-C6 level with radiculopathy M50.122 [place] [id number] [place] [address] 21378- 3862 Jun, [place] [id number] [place] [address] 93013- 1417 Jun, Pneumonia of right lung due to infectious organism, unspecified part of lung J18.9 [place] [id number] [place] [address] 74300- 6030 May, [facility] [id number] [place] [address] 02870- 0512 May, Cough R05 [place] [address] 44166- 1381 May, [place] [id number] [place] [address] 24647- 6502 May, COPD with exacerbation J44.1 [place] [id number] [place] [address] 56428- 7916 May, Type 2 diabetes mellitus with hyperglycemia, without long- term current use of insulin E11.65 ; Peripheral polyneuropathy G62.9 ; Cough R05 and COPD with exacerbation J44.1 [facility] [id number] [place] [address] 29306- 6270 May, [place] [id number] [place] [address] 02813- 9611 May, COPD with exacerbation J44.1 and Tobacco abuse counseling Z71.6 [place] [id number] [place] [address] 21539- 3261 May, [place] [id number] [place] [address] 65610- 3552 May, [facility] [address] [place] [address] 05140 -6847 May, Numbness of left hand R20.0 and Carpal tunnel syndrome of left wrist G56.02 [place] [id number] [place] [address] 90183- 6973 May, [place] [id number] [place] [address] 98347- 4045 Apr, Type 2 diabetes mellitus with hyperglycemia, without long- term current use of insulin E11.65 [place] [id number] [place] [address] 49746- 6356 March, Anxiety state, unspecified F41.1 [place] [id number] [place] [address] 97869- 8993 Feb, [place] [address] 62870- 2519 Feb, Medicare annual wellness visit, initial Z00.00 ; Type 2 diabetes mellitus with hyperglycemia, without long-term current use of insulin E11.65 ; Major depressive disorder, recurrent episode, moderate F33.1 ; Mixed hyperlipidemia E78.2 ; Fibromyalgia M79.7 ; Retinitis pigmentosa H35.52 ; Panic attacks F41.0 ; Facial skin lesion L98.9 ; Fullness of neck R22.1 and Screening for colon cancer Z12.11 [place] [id number] [place] [address] 11931- 5656 Feb, Type 2 diabetes mellitus with hyperglycemia, without long- term current use of insulin E11.65 [place] [id number] [place] [address] 76101- 1013 Jan, [place] [id number] [place] [address] 76509- 5858 Jan, Asymptomatic microscopic hematuria R31.21 ; Chest pain, unspecified type R07.9 and Generalized anxiety disorder F41.1 [place] [id number] [place] [address] 39372- 0565 Jan, [place] [id number] [place] [address] 69291- 6952 Jan, [facility] [address] [place] [address] Dec, [facility] [id number] [place] [address] 98011- 6622 Dec, [facility] [id number] [place] [address] 66754- 7351 Dec, [facility] [id number] [place] [address] 61559- 8431 Dec, [facility] [address] 84778- 8829 Dec, [facility] [address] 45958- 1990 Dec, Tension headache G44.209 [place] [id number] [place] [address] 94985- 9527 Dec, Elevated LFTs R79.89 ; Type 2 diabetes mellitus with hyperglycemia, without long-term current use of insulin E11.65 ; Abdominal bloating R14.0 and Other fatigue R53.83 [facility] [id number] [place] [address] 75003- 7614 Dec, Elevated ALT measurement R74.0 [facility] [id number] [place] [address] 60175- 5022 Nov, Type 2 diabetes mellitus with hyperglycemia, without long- term current use of insulin E11.65 and Mixed hyperlipidemia E78.2 [facility] [id number] [place] [address] 42380- 1238 Oct, [facility] [id number] [place] [address] 95672- 6429 Oct, Elevated ALT measurement R74.0 [facility] [id number] [place] [address] 15294- 5586 Oct, [facility] [id number] [place] [address] 24650- 0144 Oct, [place] [id number] [place] [address] 84477- 0850 08 Oct, 2017 Breast cancer screening Z12.[address] 92059- 8627 Sep, Tension headache G44.209 ; Cervical disc disorder at C5-C6 level with radiculopathy M50.122 ; Other fatigue R53.83 ; Breast pain, left N64.4 ; Vertigo R42 and Abnormal tympanic membrane of left ear H73.92 [facility] [address] 11557 -4351 24 Sep, 2017 Screening breast examination Z12.[address] 51113- 1076 Sep, [address] 16561- 8570 Sep, Mixed hyperlipidemia E78.2 and Type 2 diabetes mellitus with hyperglycemia, without long-term current use of insulin E11.[address] 15024- 7012 Jul, [address] 27069- 9029 Jul, Lumbago with sciatica, right side M54.41 and Other chronic pain G89.[address] 96676- 0707 May, Type 2 diabetes mellitus with hyperglycemia, without long- term current use of insulin E11.65 ; Low back pain M54.5 ; Tobacco use Z72.0 ; Mixed hyperlipidemia E78.2 ; Lateral epicondylitis of right elbow M77.11 and 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 26120- 3136 Apr, [address] 53519- 5757 Apr, Low back pain M54.5 [facility] [address] [address] 3557 Apr, Pain in thoracic spine M54.6 [facility] [id number] [place] [address] 39508 -2366 March, Lumbosacral neuritis M54.17 [facility] [id number] [place] [address] 65745- 1787 March, Low back pain M54.5 [facility] [id number] [place] [address] 71798- 4554 March, [facility] [id number] [place] [address] 89352- 6486 March, [facility] [id number] [place] [address] 62922- 1270 March, [facility] [id number] [place] [address] 43858- 1374 Feb, [facility] [id number] [place] [address] 83795- 5607 Feb, [facility] [id number] [place] [address] 22127- 1267 Feb, [facility] [id number] [place] [address] 52214- 4654 Feb, Low back pain M54.5 and Pain in thoracic spine M54.6 [facility] [id number] [place] [address] 39979- 8042 Jan, Panic attacks F41.0 ; Type 2 diabetes mellitus with hyperglycemia, without long-term current use of insulin E11.65 and Other chest pain R07.89 [facility] [address] [place] [address] 05183- 5807 Jan, [facility] [id number] [place] [address] 52724- 0740 Jan, Type 2 diabetes mellitus with hyperglycemia, without long- term current use of insulin E11.65 [facility] [address] [address]- 6179 Jan, Pain in thoracic spine M54.6 [facility] [id number] [place] [address] 54398- 1193 Jan, Type 2 diabetes mellitus with hyperglycemia, without long- term current use of insulin E11.65 and Elevated liver enzymes R74.8 [place] [id number] [place] [address] 28290- 5541 Jan, [place] [id number] [place] [address] 30855- 4761 Dec, Tobacco use Z72.0 ; Prediabetes R73.09 ; Elevated liver enzymes R74.8 ; Elevated fasting glucose R73.01 ; Elevated ALT measurement R74.0 ; Pain in thoracic spine M54.6 ; Panic attacks F41.0 and Type 2 diabetes mellitus with hyperglycemia, without long-term current use of insulin E11.65 [facility] [address] [place] [address] 76897 -0044 Jun, Abdominal pain, right upper quadrant R10.11 [place] [id number] [place] [address] 20070- 8262 Jun, [facility] [address] [place] [address] 19937- 7759 Jun, [place] [id number] [place] [address] 83288- 7566 Jun, [place] [id number] [place] [address] 98798- 6148 May, Routine gynecological examination Z01.419 ; Encounter for Papanicolaou smear for cervical cancer screening Z12.4 ; Screening breast examination Z12.39 ; Vaginal discharge N89.8 and Candidal vaginitis B37.3 [facility] [address] [place] [address] 35200- 3949 May, [place] [address] [place] [address] 55322- 3332 May, Prediabetes R73.09 ; Elevated ALT measurement R74.0 ; Elevated fasting glucose R73.01 and Palpitations R00.2 [place] [id number] [place] [address] 07031- 4003 Feb, [place] [address] 57125- 4672 Feb, [place] [id number] [place] [address] 55189- 8794 Feb, Generalized anxiety disorder F41.1 and Major depressive disorder, recurrent episode, moderate F33.1 [place] [id number] [place] [address] 88620- 5772 Feb, Generalized anxiety disorder F41.1 ; Low back pain M54.5 and Insomnia G47.00 [place] [id number] [place] [address] 29823- 7344 Jan, Elevated fasting glucose R73.01 and Elevated ALT measurement R74.[address] 37594- 5095 Jan, Generalized anxiety disorder F41.1 ; Low back pain M54.5 and Screening cholesterol level Z13.220 [place] [id number] [place] [address] 39446- 5008 Dec, Scoliosis M41.9 and Anxiety F41.9 [place] [id number] [place] [address] 54180- 8195 Feb, [place] [address] 41316- 5328 Feb, [place] [id number] [place] [address] 68532- 3163 Apr, [place] [id number] [place] [address] 01734- 9660 March, [facility] [place] [facility] [address] [id number] [place] [address]- 5993 March, [facility] [place] [facility] [address] [id number] [place] [address]- 9483 March, [facility] [place] [facility] [address] [id number] [place] 0314 March, [facility] [place] [facility] [address] [id number] [place] [address]- 0012 March, [facility] [place] [facility] [address] [id number] [place] [address]- 9490 March, [facility] [place] [facility] [address] [id number] [place] [address]- 8942 March, [facility] [place] [facility] [address] [id number] [place] [address]- 1417 March, [facility] [place] [facility] [address] [id number] [place] [address]- 5256 Feb, [facility] [place] [facility] [address] [id number] [place] [address]- 1995 Feb, [facility] [place] [facility] [address] [id number] [place] [address]- 8239 Feb, [facility] [place] [facility] [address] [id number] [place] [address]- 3002 Feb, [facility] [place] [facility] [address] [id number] [place] [address]- 2386 Jan, [facility] [place] [facility] [address] [id number] [place] [address]- 6611 Jan, [facility] [place] [facility] [address] [id number] [place] [address]- 8686 Jan, [facility] [place] [facility] [address] [id number] [place] 5818 Jan, [facility] [place] [facility] [address] [id number] [place] [address]- 4964 Jan, [facility] [place] [facility] [address] [id number] [place] [address]- 4996 Jan, [facility] [place] [facility] [address] [id number] [place] [address]- 4156 Jan, [facility] [place] [facility] [address] [id number] [place] [address]- 8476 Dec, [facility] [place] [facility] [address] [id number] [place] [address]- 5864 Dec, [facility] [place] [facility] [address] [id number] [place] [address]- 0527 Dec, [facility] [place] [facility] [address] [id number] [place] [address]- 0199 Dec, [facility] [place] [facility] [address] [id number] [place] [address]- 9944 Dec, [facility] [place] [facility] [address] [id number] [place] [address]- 4976 Dec, [facility] [place] [facility] [address] [id number] [place] [address]- 1103 Nov, [facility] [place] [facility] [address] [id number] [place] [address]- 8794 Nov, [facility] [place] [facility] [address] [id number] [place] [address]- 7689 Nov, [facility] [place] [facility] [address] [id number] [place] [address]- 8551 Nov, [facility] [place] [facility] [address] [id number] [place] [address]- 2231 Nov, [facility] [place] [facility] [address] [id number] [place] [address]- 9512 Nov, [facility] [place] [facility] [address] [id number] [place] [address]- 4471 Nov, [facility] [address] [id number] [place] [address]- 5797 Oct, [facility] [place] [facility] [address] [id number] [place] [address]- 1240 Oct, [facility] [place] [facility] [address] [id number] [place] [address]- 4333 Oct, [facility] [place] [facility] [address] [id number] [place] [address]- 1325 Oct, [facility] [place] [facility] [address] [id number] [place] [address]- 4583 Sep, [facility] [place] [facility] [address] [id number] [place] [address]- 4869 Sep, [facility] [place] [facility] [address] [id number] [place] [address]- 1609 Sep, [facility] [place] [facility] [address] [id number], [place] [address]- 8766 Sep, [facility] [place] [facility] [address] [id number] [place] [address]- 5330 Sep, [facility] [place] [facility] [address] [id number], [place] [address]- 7690 Sep, [facility] [place] [facility] [address] [id number], [place] [address]- 5123 Aug, [facility] [place] [facility] [address] [id number], [place] [address]- 7113 Aug, [facility] [place] [facility] [address] [id number], [place] [address]- 8504 Aug, [facility] [place] [facility] [address] [id number], [place] [address]- 9720 Aug, [facility] [place] [facility] [address] [facility] [id number], [place] [address]- 9670 Aug, [facility] [place] [facility] [address] [id number], [place] [address]- 0345 Aug, [facility] [address] [id number] [place] [address]- 1616 Aug, [facility] [place] [facility] [address] [id number] [place] [address]- 4339 Jul, [facility] [address] [id number] [place] [address]- 6099 Jul, [facility] [address] [id number] [place] [address]- 3445 Jun, [facility] [address] [id number] [place] [address]- 1905 May, [facility] [address] [id number] [place] [address]- 8230 May, [facility] [address] [id number] [place] [address]- 1131 May, [facility] [address] [id number] [place] [address]- 3381 Apr, [facility] [address] [id number] [place] [address]- 8196 Apr, [facility] [address] [id number] [place] [address]- 5112 Apr, [facility] [address] [id number] [place] [address]- 3727 March, [facility] [place] [facility] [address] [id number] [place] [address]- 5654 March, [facility] [place] [facility] [address] [id number] [place] [address]- 9993 March, [facility] [place] [facility] [address] [id number] [place] [address]- 6911 Feb, [facility] [place] [facility] [address] [id number] [place] [address]- 6233 Feb, [facility] [place] [facility] [address] [id number] [place] [address]- 0555 15 Feb, 2013 [facility] [address] [id number] [place] [address]- 5262 28 Jan, 2013 [facility] [place] [facility] [address] [id number] [place] [address]- 1776 19 Jan, 2013 [facility] [place] [facility] [address] [id number] [place] [address]- 8079 18 Jan, 2013 [facility] [place] [facility] [address] [id number] [place] [address]- 5021 15 Jan, 2013 [facility] [place] [facility] [address] [id number] [place] [address]- 5953 14 Jan, 2013 [facility] [place] [facility] [address] [id number] [place] [address]- 2870 12 Jan, 2013 [facility] [place] [facility] [address] [id number] [place] [address]- 5610 05 Jan, 2013 [facility] [place] [facility] [address] [id number] [place] [address]- 5106 28 Dec, 2012 [facility] [place] [facility] [address] [id number] [place] [address]- 4400 18 Dec, 2012 [facility] [place] [facility] [address] [id number] [place] [address]- 7334 15 Dec, 2012 [facility] [place] [facility] [address] [id number] [place] [address]- 9248 14 Dec, 2012 [facility] [place] [facility] [address] [id number] [place] [address]- 0689 05 Dec, 2012 [facility] [place] [facility] [address] [id number] [place] [address]- 4269 29 Nov, 2012 [facility] [place] [facility] [address] [id number] [place] [address]- 6989 17 Nov, 2012 [facility] [place] [facility] [address] [id number] [place] [address]- 2546 Nov, [facility] [place] [facility] [address] [id number] [place] [address]- 7056 Nov, [facility] [place] [facility] [address] [id number] [place] [address]- 5386 Oct, [facility] [place] [facility] [address] [id number] [place] [address]- 9176 Oct, [facility] [place] [facility] [address] [id number] [place] [address] Oct, [facility] [place] [facility] [address] [id number] [place] [address] Oct, [facility] [place] [facility] [address] [id number] [place] [address] Oct, [facility] [place] [facility] [address] [id number] [place] Oct, [facility] [place] [facility] [address] [id number] [place] [address] Oct, [facility] [place] [facility] [address] [id number] [place] [address] Oct, [facility] [place] [facility] [address] [id number] [place] [address] Oct, [facility] [place] [facility] [address] [id number] [place] [address] Sep, [facility] [place] [facility] [address] [id number] [place] [address] 16 Sep, 2012 [facility] [place] [facility] [address] [id number] [place] [address] Sep, [facility] [place] [facility] [address] [id number] [place] [address] Sep, [facility] [place] [facility] [address] [id number] [place] [address] Sep, [facility] [place] [facility] [address] [id number] [place] [address] Aug, 2011 [facility] [place] [facility] [address] [id number] [place] [address] Aug, 2011 [facility] [place] [facility] [address] [id number] [place] [address] 17 Aug, 2011 [facility] [place] [facility] [address] [id number] [place] [address] 17 Aug, 2011 [facility] [place] [facility] [address] [id number] [place] [address] 16 Aug, 2012 [facility] [place] [facility] [address] [id number] [place] [address] Aug, [facility] [place] [facility] [address] [id number] [place] [address] Aug, [facility] [place] [facility] [address] [id number] [place] [address] 10 Aug, 2012 [facility] [place] [facility] [address] [id number] [place] [address] 10 Aug, 2012 [facility] [place] [facility] [address] [id number] [place] [address] 09 Aug, 2012 [facility] [place] [facility] [address] [id number] [place] [address] 05 Aug, 2012 [facility] [place] [facility] [address] [id number] [place] [address] 04 Aug, 2012 [facility] [place] [facility] [address] [id number] [place] [address] 17 Sep, 2011 [facility] [place] [facility] [address] [id number] [place] [address] 13 Sep, 2011 [facility] [place] [facility] [address] [id number] [place] [address] 13 Sep, 2011 [facility] [place] [facility] [address] [id number] [place] [address] 11 Jul, 2012 [facility] [place] [facility] [address] [id number] [place] [address] 10 Jul, 2012 [facility] [place] [facility] [address] [id number] [place] [address] 08 Jul, 2012 [facility] [place] [facility] [address] [id number] [place] [address] 16 Jun, 2012 [facility] [place] [facility] [address] [id number] [place] [address] 14 Jun, 2012 [facility] [place] [facility] [address] [id number] [place] [address] 17 May, 2012 [facility] [place] [facility] [address] [id number] [place] [address] 17 May, 2012 [facility] [place] [facility] [address] [id number] [place] [address] 13 May, 2012 [facility] [place] [facility] [address] [id number] [place] [address] May, [facility] [place] [facility] [address] [id number] [place] [address] Apr, [facility] [place] [facility] [address] [id number] [place] [address] Apr, [facility] [place] [facility] [address] [id number] [place] [address] Apr, [facility] [place] [facility] [address] [id number] [place] [address] Apr, [facility] [place] [facility] [address] [id number] [place] [address] Apr, [facility] [place] [facility] [address] [id number] [place] [address] March, [facility] [place] [facility] [address] [id number] [place] [address] March, [facility] [place] [facility] [address] [id number], [place] [address] March, [facility] [address] [id number] [place] [address] March, [facility] [address] [id number] [place] [address] March, [facility] [address] [facility] [id number] [place] [address] Feb, [facility] [place] [facility] [address] [id number] [place] [address] Feb, [facility] [address] [id number] [place] [address] Jan, [facility] [place] [facility] [address] [id number] [place] [address] Jan, [facility] [id number] [place] [address] Jan, [facility] [place] [facility] [address] [id number] [place] [address] Dec, [facility] [address] [id number] [place] [address] Nov, [facility] [address] [id number] [place] [address] Nov, [facility] [address] [id number] [place] [address] Nov, [facility] [place] [facility] [address] [id number] [place] [address] Nov, [facility] [place] [facility] [address] [id number] [place] [address] Oct, [facility] [place] [facility] [address] [facility] [id number] [place] [address] Oct, [facility] [place] [facility] [address] [id number] [place] [address] Sep, [facility] [place] [facility] [address] [id number] [place] [address] 18 Sep, 2011 [facility] [place] [facility] [address] [id number] [place] [address] 10 Sep, 2011 [facility] [place] [facility] [address] [id number] [place] [address] 10 Sep, 2011 [facility] [place] [facility] [address] [id number] [place] [address] 08 Sep, 2011 [facility] [place] [facility] [address] [id number] [place] [address] 16 Jun, 2011 [facility] [place] [facility] [address] [id number] [place] [address] 15 Dec, 2010 [facility] [place] [facility] [address] [id number] [place] [address] Sep, [facility] [place] [facility] [address] [id number] [place] [address] Aug, [facility] [place] [facility] [address] [id number] [place] [address] Aug, [facility] [place] [facility] [address] [id number] [place] [address] Aug, [facility] [place] [facility] [address] [id number] [place] [address] Aug, [facility] [place] [facility] [address] [id number] [place] [address] Aug, [facility] [place] [facility] [address] [id number] [place] [address] 17 Jun, 2010 [facility] [place] [facility] [address] [id number] [place] [address] 13 Feb, 2010 [facility] [place] [facility] [address] [id number] [place] [address] 06 Sep, 2009 [facility] [place] [facility] [address] [id number] [place] [address] Aug, [facility] [address] [facility] [id number] [place] [address] Apr, [facility] [address] [facility] [id number] [place] [address] March, IMMUNIZATIONS No Known Immunizations SOCIAL HISTORY Never Assessed REASON FOR VISIT med order PLAN OF CARE VITAL SIGNS MEDICATIONS Medication Instructions Dosage Frequency Start Date End Date Duration Status Levaquin 500 mg Orally Once a day 1 tablet 24h May, 05 days Active RESULTS No Results PROCEDURES No Known procedures INSTRUCTIONS MEDICATIONS ADMINISTERED No Known Medications MEDICAL (GENERAL) HISTORY Type Description Date Medical History Scoliosis Medical History Bipolar Surgical History right hip replacement Surgical History c-sections x4 Hospitalization History Pneumonia 2011
--- OUTSIDE RECORDS SUMMARY | 2019-02-03 10:51 | XMS REPORT ---
Author Author ASHOK ROMY Organization [facility] Address [address] [place] [address] Care Team Providers Care Electromedical Equipment Technician Name Role Phone ASHOKPHILLIP PRIDEHANY Unavailable PROBLEMS Type Condition ICD9-CM Code NYK63-RL Code Onset Dates Condition Status SNOMED Code Problem Lumbago with sciatica, right side M54.41 Active 152162798 Problem Tension headache G44.209 Active 794465749 Problem Other chronic pain G89.29 Active 45394498 Problem COPD with exacerbation J44.1 Active 282519669 Problem Fibromyalgia M79.7 Active 552059992 Problem Peripheral polyneuropathy G62.9 Active 98310185 Problem Chest pain, unspecified type R07.9 Active 33906507 Problem Retinitis pigmentosa H35.52 Active 06012226 Problem Cervical disc disorder at C5-C6 level with radiculopathy M50.122 Active 035349156 Problem Carpal tunnel syndrome of left wrist G56.02 Active [id number] Problem Anxiety state, unspecified F41.1 Active 179331932 Problem Low back pain M54.5 Active 286160616 Problem Major depressive disorder, recurrent episode, moderate F33.1 Active 918415674 Problem Calculus of gallbladder without cholecystitis without obstruction K80.20 Active 886947712 Problem Generalized anxiety disorder F41.1 Active 43733006 Problem Panic attacks F41.0 Active 390372879 Problem Type 2 diabetes mellitus with hyperglycemia, without long-term current use of insulin E11.65 Active 92023276 Problem Insomnia G47.00 Active 997282151 Problem 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 Active 50380838 Problem Tobacco use Z72.0 Active 076042129 Problem Mixed hyperlipidemia E78.2 Active 945646219 ALLERGIES No Information ENCOUNTERS Encounter Location Date Diagnosis [facility] [address] [facility] [id number] [address] Jun, Cervical disc disorder at C5-C6 level with radiculopathy M50.122 [facility] [id number] [place] [address] 50609- 7798 Jun, [facility] [id number] [place] [address] 83788- 5456 Jun, Pneumonia of right lung due to infectious organism, unspecified part of lung J18.9 [facility] [address] [address]- [address]49 May, [facility] [id number] [place] [address] 78056- 0378 May, Cough R05 [place] [address] 38181- 1518 May, [place] [id number] [place] [address] 04015- 1236 May, COPD with exacerbation J44.1 [facility] [id number] [place] [address] 53525- 8520 May, Type 2 diabetes mellitus with hyperglycemia, without long- term current use of insulin E11.65 ; Peripheral polyneuropathy G62.9 ; Cough R05 and COPD with exacerbation J44.1 [facility] [id number] [place] [address] 38473- 3248 May, [facility] [id number] [place] [address] 40537- 8232 May, COPD with exacerbation J44.1 and Tobacco abuse counseling Z71.6 [facility] [id number] [place] [address] 84244- 3866 May, [facility] [id number] [place] [address] 49573- 2959 May, [facility] [id number] [place] [address] 93616 -4060 May, Numbness of left hand R20.0 and Carpal tunnel syndrome of left wrist G56.02 [place] [address] [place] [address] 38584- 9558 May, [facility] [id number] [place] [address] 93712- 2762 Apr, Type 2 diabetes mellitus with hyperglycemia, without long- term current use of insulin E11.65 [place] [id number] [place] [address] 91351- 7184 March, Anxiety state, unspecified F41.1 [place] [id number] [place] [address] 28648- 1006 Feb, [place] [id number] [place] [address] 35472- 9402 Feb, Medicare annual wellness visit, initial Z00.00 ; Type 2 diabetes mellitus with hyperglycemia, without long-term current use of insulin E11.65 ; Major depressive disorder, recurrent episode, moderate F33.1 ; Mixed hyperlipidemia E78.2 ; Fibromyalgia M79.7 ; Retinitis pigmentosa H35.52 ; Panic attacks F41.0 ; Facial skin lesion L98.9 ; Fullness of neck R22.1 and Screening for colon cancer Z12.11 [place] [id number] [place] [address] 80546- 5561 Feb, Type 2 diabetes mellitus with hyperglycemia, without long- term current use of insulin E11.65 [place] [address] [place] [address] 17729- 7271 Jan, [place] [id number] [place] [address] 02848- 5922 Jan, Asymptomatic microscopic hematuria R31.21 ; Chest pain, unspecified type R07.9 and Generalized anxiety disorder F41.1 [place] [id number] [place] [address] 46808- 7842 Jan, [place] [id number] [place] [address] 78811- 5785 Jan, [facility] [address] [id number] [address] Dec, [facility] [id number] [place] [address] 73056- 6591 Dec, [facility] [id number] [place] [address] 65194- 6030 Dec, [facility] [id number] [place] [address] 19335- 1461 Dec, [facility] [id number] [place] [address] 05498- 5696 Dec, [facility] [id number] [place] [address] 73796- 9800 Dec, Tension headache G44.209 [facility] [id number] [place] [address] 48621- 9851 Dec, Elevated LFTs R79.89 ; Type 2 diabetes mellitus with hyperglycemia, without long-term current use of insulin E11.65 ; Abdominal bloating R14.0 and Other fatigue R53.83 [facility] [id number] [place] [address] 66951- 7170 Dec, Elevated ALT measurement R74.0 [facility] [address] [place] [address] 12964- 3366 Nov, Type 2 diabetes mellitus with hyperglycemia, without long- term current use of insulin E11.65 and Mixed hyperlipidemia E78.2 [facility] [id number] [place] [address] 91842- 4065 Oct, [facility] [id number] [place] [address] 40184- 6395 Oct, Elevated ALT measurement R74.0 [facility] [id number] [place] [address] 24108- 0383 Oct, [facility] [id number] [place] [address] 75452- 7740 Oct, [place] [id number] [place] [address] 99189- 2799 08 Oct, 2017 Breast cancer screening Z12.31 [place] [id number] [place] [address] 73000- 1388 Sep, Tension headache G44.209 ; Cervical disc disorder at C5-C6 level with radiculopathy M50.122 ; Other fatigue R53.83 ; Breast pain, left N64.4 ; Vertigo R42 and Abnormal tympanic membrane of left ear H73.92 [facility] [id number] [place] [address] 08305 -2816 24 Sep, 2017 Screening breast examination Z12.[address] 87160- 6009 Sep, [address] 13489- 3282 Sep, Mixed hyperlipidemia E78.2 and Type 2 diabetes mellitus with hyperglycemia, without long-term current use of insulin E11.65 [place] [id number] [place] [address] 23711- 0042 Jul, [address] 52573- 3334 Jul, Lumbago with sciatica, right side M54.41 and Other chronic pain G89.[address] 34456- 6969 May, Type 2 diabetes mellitus with hyperglycemia, without long- term current use of insulin E11.65 ; Low back pain M54.5 ; Tobacco use Z72.0 ; Mixed hyperlipidemia E78.2 ; Lateral epicondylitis of right elbow M77.11 and 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 [place] [id number] [place] [address] 25764- 1360 Apr, [address] 10681- 1154 Apr, Low back pain M54.5 [facility] [address] [address] 3230 Apr, Pain in thoracic spine M54.6 [facility] [address] [place] [address] 80538 -7628 March, Lumbosacral neuritis M54.17 [facility] [id number] [place] [address] 75928- 0460 March, Low back pain M54.5 [facility] [id number] [place] [address] 89399- 5949 March, [facility] [id number] [place] [address] 71502- 3455 March, [facility] [id number] [place] [address] 35474- 4154 March, [facility] [id number] [place] [address] 16991- 4075 Feb, [facility] [id number] [place] [address] 38883- 3892 Feb, [facility] [id number] [place] [address] 08422- 1589 Feb, [facility] [id number] [place] [address] 43606- 6133 Feb, Low back pain M54.5 and Pain in thoracic spine M54.6 [facility] [address], [place] [address]- 7736 Jan, Panic attacks F41.0 ; Type 2 diabetes mellitus with hyperglycemia, without long-term current use of insulin E11.65 and Other chest pain R07.89 [facility] [address], [place] [address]- 8457 Jan, [facility] [address] [place] [address] 72056- 4151 Jan, Type 2 diabetes mellitus with hyperglycemia, without long- term current use of insulin E11.65 [place] [address] [place] [address] 44304- 2869 Jan, Pain in thoracic spine M54.6 [facility] [id number] [place] [address] 83973- 0523 Jan, Type 2 diabetes mellitus with hyperglycemia, without long- term current use of insulin E11.65 and Elevated liver enzymes R74.8 [place] [id number] [place] [address] 71588- 7653 Jan, [place] [id number] [place] [address] 73647- 9682 Dec, Tobacco use Z72.0 ; Prediabetes R73.09 ; Elevated liver enzymes R74.8 ; Elevated fasting glucose R73.01 ; Elevated ALT measurement R74.0 ; Pain in thoracic spine M54.6 ; Panic attacks F41.0 and Type 2 diabetes mellitus with hyperglycemia, without long-term current use of insulin E11.65 [facility] [id number] [place] [address] 26594 -7117 Jun, Abdominal pain, right upper quadrant R10.11 [place] [id number] [place] [address] 52786- 3092 Jun, [place] [id number] [place] [address] 45256- 4276 Jun, [place] [id number] [place] [address] 07322- 5761 Jun, [place] [id number] [place] [address] 87259- 8302 May, Routine gynecological examination Z01.419 ; Encounter for Papanicolaou smear for cervical cancer screening Z12.4 ; Screening breast examination Z12.39 ; Vaginal discharge N89.8 and Candidal vaginitis B37.3 [facility] [id number] [place] [address] 91621- 7480 May, [place] [id number] [place] [address] 07431- 3097 May, Prediabetes R73.09 ; Elevated ALT measurement R74.0 ; Elevated fasting glucose R73.01 and Palpitations R00.2 [place] [id number] [place] [address] 56742- 3154 Feb, [place] [address] 66825- 5799 Feb, [place] [address] 17971- 2106 Feb, Generalized anxiety disorder F41.1 and Major depressive disorder, recurrent episode, moderate F33.1 [place] [id number] [place] [address] 23431- 3052 Feb, Generalized anxiety disorder F41.1 ; Low back pain M54.5 and Insomnia G47.00 [place] [id number] [place] [address] 67687- 0693 Jan, Elevated fasting glucose R73.01 and Elevated ALT measurement R74.[address] 58410- 6050 Jan, Generalized anxiety disorder F41.1 ; Low back pain M54.5 and Screening cholesterol level Z13.220 [place] [id number] [place] [address] 27691- 2797 Dec, Scoliosis M41.9 and Anxiety F41.9 [place] [id number] [place] [address] 10219- 0519 Feb, [place] [address] 35473- 2740 Feb, [place] [address] [id number] [place] [address] 72963- 4026 Apr, [place] [address] 98495- 1446 March, [facility] [place] [facility] [address] [id number] [place] [address]- 2917 March, [facility] [place] [facility] [address] [id number] [place] [address]- 7738 March, [facility] [place] [facility] [address] [id number] [place] 4362 March, [facility] [place] [facility] [address] [id number] [place] [address]- 1741 March, [facility] [place] [facility] [address] [id number] [place] [address]- 0642 March, [facility] [place] [facility] [address] [id number] [place] [address]- 8979 March, [facility] [place] [facility] [address] [id number] [place] [address]- 3199 March, [facility] [place] [facility] [address] [id number] [place] [address]- 5890 Feb, [facility] [place] [facility] [address] [id number] [place] [address]- 3117 Feb, [facility] [place] [facility] [address] [id number] [place] [address]- 3841 Feb, [facility] [place] [facility] [address] [id number] [place] [address]- 2691 Feb, [facility] [place] [facility] [address] [id number] [place] [address]- 5063 Jan, [facility] [place] [facility] [address] [id number] [place] [address]- 7751 Jan, [facility] [place] [facility] [address] [id number] [place] [address]- 9328 Jan, [facility] [place] [facility] [address] [id number] [place] [address]- 6066 Jan, [facility] [place] [facility] [address] [id number] [place] [address]- 5395 Jan, [facility] [place] [facility] [address] [id number] [place] [address]- 6063 Jan, [facility] [place] [facility] [address] [id number] [place] [address]- 2776 Jan, [facility] [place] [facility] [address] [id number] [place] [address]- 3239 Dec, [facility] [place] [facility] [address] [id number] [place] [address]- 2061 Dec, [facility] [place] [facility] [address] [id number] [place] [address]- 3725 Dec, [facility] [place] [facility] [address] [id number] [place] [address]- 2146 Dec, [facility] [place] [facility] [address] [id number] [place] [address]- 4233 Dec, [facility] [place] [facility] [address] [id number] [place] [address]- 6982 Dec, [facility] [place] [facility] [address] [id number] [place] [address]- 3636 Nov, [facility] [place] [facility] [address] [id number] [place] [address]- 0285 Nov, [facility] [place] [facility] [address] [id number] [place] [address]- 8905 Nov, [facility] [place] [facility] [address] [id number] [place] [address]- 8496 Nov, [facility] [place] [facility] [address] [id number] [place] [address]- 1702 Nov, [facility] [place] [facility] [address] [id number] [place] [address]- 4906 Nov, [facility] [place] [facility] [address] [id number] [place] [address]- 1148 Nov, [facility] [place] [facility] [address] [id number] [place] [address]- 3665 Oct, [facility] [place] [facility] [address] [id number] [place] [address]- 5562 Oct, [facility] [place] [facility] [address] [id number] [place] [address]- 6123 Oct, [facility] [place] [facility] [address] [id number] [place] [address]- 2838 Oct, [facility] [place] [facility] [address] [id number] [place] [address]- 7287 Sep, [facility] [place] [facility] [address] [id number] [place] [address]- 4641 Sep, [facility] [place] [facility] [address] [id number] [place] [address]- 7399 Sep, [facility] [place] [facility] [address] [id number], [place] [address]- 2047 Sep, [facility] [place] [facility] [address] [id number] [place] [address]- 7077 Sep, [facility] [place] [facility] [address] [id number], [place] [address]- 9819 Sep, [facility] [place] [facility] [address] [id number], [place] [address]- 6707 Aug, [facility] [place] [facility] [address] [id number], [place] [address]- 0418 Aug, [facility] [place] [facility] [address] [id number] [place] [address]- 7619 Aug, [facility] [place] [facility] [address] [id number], [place] [address]- 1107 Aug, [facility] [place] [facility] [address] [id number], [place] [address]- 6068 Aug, [facility] [place] [facility] [address] [id number] [place] [address]- 7841 07 Aug, 2013 [facility] [address] [id number] [place] [address]- 0470 02 Aug, 2013 [facility] [place] [facility] [address] [id number] [place] [address]- 0028 Jul, [facility] [address] [id number] [place] [address]- 2417 Jul, [facility] [place] [facility] [address] [id number] [place] [address]- 5263 Jun, [facility] [address] [id number] [place] [address]- 4394 May, [facility] [place] [facility] [address] [id number] [place] [address]- 4672 May, [facility] [address] [id number] [place] [address]- 4213 May, [facility] [address] [id number] [place] [address]- 7999 Apr, [facility] [address] [id number] [place] [address]- 6145 Apr, [facility] [address] [id number] [place] [address]- 6833 Apr, [facility] [address] [id number] [place] [address]- 5663 March, [facility] [place] [facility] [address] [id number] [place] [address]- 9164 March, [facility] [place] [facility] [address] [id number] [place] [address]- 5177 March, [facility] [place] [facility] [address] [id number] [place] [address]- 7528 Feb, [facility] [place] [facility] [address] [id number] [place] [address]- 5353 Feb, [facility] [place] [facility] [address] [id number] [place] [address]- 2322 15 Feb, 2013 [facility] [place] [facility] [address] [id number] [place] [address]- 8845 28 Jan, 2013 [facility] [place] [facility] [address] [id number] [place] [address]- 3304 19 Jan, 2013 [facility] [place] [facility] [address] [id number] [place] [address]- 1726 18 Jan, 2013 [facility] [place] [facility] [address] [id number] [place] [address]- 0792 15 Jan, 2013 [facility] [place] [facility] [address] [id number] [place] [address]- 0326 14 Jan, 2013 [facility] [address] [facility] [id number] [place] [address]- 2836 12 Jan, 2013 [facility] [place] [facility] [address] [id number] [place] [address]- 8471 05 Jan, 2013 [facility] [place] [facility] [address] [id number] [place] [address]- 8102 28 Dec, 2012 [facility] [place] [facility] [address] [id number] [place] [address]- 6619 18 Dec, 2012 [facility] [place] [facility] [address] [id number] [place] [address]- 7244 15 Dec, 2012 [facility] [place] [facility] [address] [id number], [place] [address]- 2707 14 Dec, 2012 [facility] [place] [facility] [address] [id number] [place] [address]- 7520 05 Dec, 2012 [facility] [place] [facility] [address] [id number] [place] [address]- 7706 29 Nov, 2012 [facility] [place] [facility] [address] [id number] [place] [address]- 1421 17 Nov, 2012 [facility] [place] [facility] [address] [id number], [place] [address] Nov, [facility] [address] [id number] [place] [address] Nov, [facility] [place] [facility] [address] [id number] [place] [address] Oct, [facility] [place] [facility] [address] [id number] [place] [address] Oct, [facility] [place] [facility] [address] [id number] [place] [address] Oct, [facility] [place] [facility] [address] [id number] [place] [address] Oct, [facility] [place] [facility] [address] [id number] [place] [address] Oct, [facility] [place] [facility] [address] [id number] [place] [address] Oct, [facility] [place] [facility] [address] [id number] [place] [address] Oct, [facility] [place] [facility] [address] [id number] [place] [address] Oct, [facility] [place] [facility] [address] [facility] [id number] [place] [address] Oct, [facility] [place] [facility] [address] [id number] [place] [address] 16 Sep, 2012 [facility] [place] [facility] [address] [id number] [place] [address] 16 Sep, 2012 [facility] [place] [facility] [address] [id number] [place] [address] Sep, [facility] [place] [facility] [address] [id number] [place] [address] Sep, [facility] [place] [facility] [address] [facility] [id number] [place] [address] Sep, [facility] [place] [facility] [address] [id number] [place] [address] Aug, 2011 [facility] [place] [facility] [address] [id number] [place] [address] 25 Aug, 2011 [facility] [place] [facility] [address] [id number] [place] [address] 17 Aug, 2011 [facility] [place] [facility] [address] [id number] [place] [address] 17 Aug, 2011 [facility] [place] [facility] [address] [id number] [place] [address] 16 Aug, 2011 [facility] [place] [facility] [address] [id number] [place] [address] Aug, [facility] [place] [facility] [address] [id number] [place] [address] Aug, [facility] [place] [facility] [address] [id number] [place] [address] 10 Aug, 2012 [facility] [place] [facility] [address] [id number] [place] [address] 10 Aug, 2012 [facility] [place] [facility] [address] [id number] [place] [address]- [address] 09 Aug, 2012 [facility] [place] [facility] [address] [id number] [place] [address] 05 Aug, 2012 [facility] [place] [facility] [address] [id number] [place] [address] 04 Aug, 2012 [facility] [place] [facility] [address] [id number] [place] [address] 17 Sep, 2011 [facility] [place] [facility] [address] [id number] [place] [address] 13 Sep, 2011 [facility] [place] [facility] [address] [id number] [place] [address] 13 Sep, 2011 [facility] [place] [facility] [address] [id number] [place] [address] 11 Jul, 2012 [facility] [place] [facility] [address] [id number] [place] [address] 10 Jul, 2012 [facility] [place] [facility] [address] [id number] [place] [address] 08 Jul, 2012 [facility] [place] [facility] [address] [id number] [place] [address] 16 Jun, 2012 [facility] [place] [facility] [address] [id number] [place] [address] 14 Jun, 2012 [facility] [place] [facility] [address] [id number] [place] [address] 17 May, 2012 [facility] [place] [facility] [address] [address] [id number] [place] [address] 17 May, 2012 [facility] [place] [facility] [address] [id number] [place] [address] 13 May, 2012 [facility] [place] [facility] [address] [id number] [place] [address] May, [facility] [place] [facility] [address] [id number] [place] [address] Apr, [facility] [place] [facility] [address] [id number] [place] [address] Apr, [facility] [place] [facility] [address] [id number] [place] [address] Apr, [facility] [place] [facility] [address] [id number] [place] [address] Apr, [facility] [place] [facility] [address] [id number] [place] [address] Apr, [facility] [place] [facility] [address] [id number] [place] [address] March, [facility] [place] [facility] [address] [id number] [place] [address] March, [facility] [place] [facility] [address] [id number] [place] [address] March, [facility] [address] [id number] [place] [address] March, [facility] [place] [facility] [address] [id number] [place] [address] March, [facility] [address] [id number] [place] [address] Feb, [facility] [place] [facility] [address] [id number] [place] [address] Feb, [facility] [place] [facility] [address] [id number] [place] [address] Jan, [facility] [place] [facility] [address] [id number] [place] [address] Jan, [facility] [address] [id number] [place] [address] Jan, [facility] [place] [facility] [address] [id number] [place] [address] Dec, [facility] [place] [facility] [address] [id number] [place] [address] Nov, [facility] [place] [facility] [address] [id number] [place] [address] Nov, [facility] [place] [facility] [address] [id number] [place] [address] Nov, [facility] [place] [facility] [address] [id number] [place] [address] Nov, [facility] [place] [facility] [address] [id number] [place] [address] Oct, [facility] [place] [facility] [address] [id number] [place] [address] Oct, [facility] [place] [facility] [address] [id number] [place] [address] Sep, [facility] [place] [facility] [address] [id number] [place] [address] 18 Sep, 2011 [facility] [place] [facility] [address] [id number] [place] [address] Sep, [facility] [place] [facility] [address] [id number] [place] [address] 10 Sep, 2011 [facility] [place] [facility] [address] [id number] [place] [address] 08 Sep, 2011 [facility] [place] [facility] [address] [id number] [place] [address] 16 Jun, 2011 [facility] [place] [facility] [address] [id number] [place] [address] 15 Dec, 2010 [facility] [place] [facility] [address] [id number] [place] [address] Sep, [facility] [place] [facility] [address] [id number] [place] [address] Aug, [facility] [place] [facility] [address] [id number] [place] [address] Aug, [facility] [place] [facility] [address] [id number] [place] [address] Aug, [facility] [place] [facility] [address] [id number] [place] [address] Aug, [facility] [place] [facility] [address] [id number] [place] [address] Aug, [facility] [place] [facility] [address] [id number] [place] [address] Jun, [facility] [place] [facility] [address] [id number] [place] [address] 13 Feb, 2010 [facility] [place] [facility] [address] [id number] [place] [address] 06 Sep, 2009 [facility] [place] [facility] [address] [id number] [place] [address] Aug, [facility] [address] [facility] [id number] [place] [address] Apr, [facility] [address] [facility] [id number], [place] [address] March, IMMUNIZATIONS No Known Immunizations SOCIAL HISTORY [...]
--- OUTSIDE RECORDS SUMMARY | 2019-02-03 10:52 | XMS REPORT ---
Author Author ASHOK ROMY Organization [facility] Address [address] [place] [address] Care Team Providers Care Fire Prevention Specialist Name Role Phone ASHOKPHILLIP PRIDEHANY Unavailable PROBLEMS Type Condition ICD9-CM Code WGL37-LP Code Onset Dates Condition Status SNOMED Code Problem Lumbago with sciatica, right side M54.41 Active 615342582 Problem Tension headache G44.209 Active 964925702 Problem Other chronic pain G89.29 Active 04508310 Problem COPD with exacerbation J44.1 Active 528291206 Problem Fibromyalgia M79.7 Active 172589329 Problem Peripheral polyneuropathy G62.9 Active 35952975 Problem Chest pain, unspecified type R07.9 Active 24933008 Problem Retinitis pigmentosa H35.52 Active 64484278 Problem Cervical disc disorder at C5-C6 level with radiculopathy M50.122 Active 736025463 Problem Carpal tunnel syndrome of left wrist G56.02 Active 070490628659993 Problem Anxiety state, unspecified F41.1 Active 669349556 Problem Low back pain M54.5 Active 379873627 Problem Major depressive disorder, recurrent episode, moderate F33.1 Active 592271785 Problem Calculus of gallbladder without cholecystitis without obstruction K80.20 Active 852987156 Problem Generalized anxiety disorder F41.1 Active 52458103 Problem Panic attacks F41.0 Active 523228938 Problem Type 2 diabetes mellitus with hyperglycemia, without long-term current use of insulin E11.65 Active 34272623 Problem Insomnia G47.00 Active 445816633 Problem 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 Active 15933434 Problem Tobacco use Z72.0 Active 041404787 Problem Mixed hyperlipidemia E78.2 Active 648542014 ALLERGIES No Information ENCOUNTERS Encounter Location Date Diagnosis [facility] [address] [facility] [id number] [address] Jun, Cervical disc disorder at C5-C6 level with radiculopathy M50.122 [facility] [id number] [place] [address] 05806- 7406 Jun, [facility] [id number] [place] [address] 58804- 0623 Jun, Pneumonia of right lung due to infectious organism, unspecified part of lung J18.9 [facility] [place] [address] [address]- 6460 May, [facility] [id number] [place] [address] 93167- 6900 May, Cough R05 [place] [address] 24725- 8834 May, [place] [id number] [place] [address] 42379- 2172 May, COPD with exacerbation J44.1 [facility] [place] [id number] [place] [address] 93422- 8642 May, Type 2 diabetes mellitus with hyperglycemia, without long- term current use of insulin E11.65 ; Peripheral polyneuropathy G62.9 ; Cough R05 and COPD with exacerbation J44.1 [facility] [place] [id number] [place] [address] 42976- 8166 May, [facility] [id number] [place] [address] 51087- 4274 May, COPD with exacerbation J44.1 and Tobacco abuse counseling Z71.6 [facility] [place] [id number] [place] [address] 94005- 7618 May, [facility] [place] [id number] [place] [address] 15145- 1282 May, [facility] [id number] [place] [address] 57749 -0445 May, Numbness of left hand R20.0 and Carpal tunnel syndrome of left wrist G56.02 [place] [id number] [place] [address] 45189- 0551 May, [place] [id number] [place] [address] 89584- 4606 Apr, Type 2 diabetes mellitus with hyperglycemia, without long- term current use of insulin E11.65 [place] [id number] [place] [address] 30005- 2861 March, Anxiety state, unspecified F41.1 [place] [id number] [place] [address] 71705- 3301 Feb, [place] [id number] [place] [address] 85759- 3630 Feb, Medicare annual wellness visit, initial Z00.00 ; Type 2 diabetes mellitus with hyperglycemia, without long-term current use of insulin E11.65 ; Major depressive disorder, recurrent episode, moderate F33.1 ; Mixed hyperlipidemia E78.2 ; Fibromyalgia M79.7 ; Retinitis pigmentosa H35.52 ; Panic attacks F41.0 ; Facial skin lesion L98.9 ; Fullness of neck R22.1 and Screening for colon cancer Z12.11 [place] [id number] [place] [address] 77883- 1036 Feb, Type 2 diabetes mellitus with hyperglycemia, without long- term current use of insulin E11.65 [place] [id number] [place] [address] 22051- 9243 Jan, [place] [id number] [place] [address] 06807- 0269 Jan, Asymptomatic microscopic hematuria R31.21 ; Chest pain, unspecified type R07.9 and Generalized anxiety disorder F41.1 [place] [id number] [place] [address] 27399- 2148 Jan, [place] [id number] [place] [address] 56671- 5347 Jan, [facility] [address] [id number] [address] Dec, [facility] [id number] [place] [address] 11285- 5779 Dec, [facility] [id number] [place] [address] 11190- 3345 Dec, [facility] [id number] [place] [address] 55511- 7447 Dec, [facility] [id number] [place] [address] 17885- 2339 Dec, [facility] [id number] [place] [address] 15767- 2847 Dec, Tension headache G44.209 [facility] [id number] [place] [address] 63274- 1302 Dec, Elevated LFTs R79.89 ; Type 2 diabetes mellitus with hyperglycemia, without long-term current use of insulin E11.65 ; Abdominal bloating R14.0 and Other fatigue R53.83 [facility] [place] [id number] [place] [address] 27424- 8579 Dec, Elevated ALT measurement R74.0 [facility] [id number] [place] [address] 62374- 3127 Nov, Type 2 diabetes mellitus with hyperglycemia, without long- term current use of insulin E11.65 and Mixed hyperlipidemia E78.2 [facility] [id number] [place] [address] 93679- 7775 Oct, [facility] [id number] [place] [address] 91685- 5024 Oct, Elevated ALT measurement R74.0 [facility] [id number] [place] [address] 19010- 8040 Oct, [facility] [id number] [place] [address] 95591- 7782 Oct, [place] [id number] [place] [address] 87165- 9600 08 Oct, 2017 Breast cancer screening Z12.31 [place] [id number] [place] [address] 79671- 4287 Sep, Tension headache G44.209 ; Cervical disc disorder at C5-C6 level with radiculopathy M50.122 ; Other fatigue R53.83 ; Breast pain, left N64.4 ; Vertigo R42 and Abnormal tympanic membrane of left ear H73.92 [facility] [id number] [place] [address] 34599 -2245 24 Sep, 2017 Screening breast examination Z12.[address] 16172- 7031 Sep, [address] 89473- 0939 Sep, Mixed hyperlipidemia E78.2 and Type 2 diabetes mellitus with hyperglycemia, without long-term current use of insulin E11.65 [place] [id number] [place] [address] 69369- 8127 Jul, [address] 28659- 7164 Jul, Lumbago with sciatica, right side M54.41 and Other chronic pain G89.[address] 19133- 3840 May, Type 2 diabetes mellitus with hyperglycemia, without long- term current use of insulin E11.65 ; Low back pain M54.5 ; Tobacco use Z72.0 ; Mixed hyperlipidemia E78.2 ; Lateral epicondylitis of right elbow M77.11 and 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 [place] [id number] [place] [address] 63201- 4833 Apr, [address] 10951- 0037 Apr, Low back pain M54.5 [facility] [place] [address] [address]- 7514 Apr, Pain in thoracic spine M54.6 [facility] [id number] [place] [address] 06474 -4754 March, Lumbosacral neuritis M54.17 [facility] [place] [id number] [place] [address] 70511- 9177 March, Low back pain M54.5 [facility] [place] [id number] [place] [address] 32940- 6129 March, [facility] [id number] [place] [address] 55839- 4821 March, [facility] [id number] [place] [address] 94697- 7379 March, [facility] [id number] [place] [address] 37319- 2554 Feb, [facility] [id number] [place] [address] 10272- 2576 Feb, [facility] [id number] [place] [address] 53930- 0965 Feb, [facility] [id number] [place] [address] 65576- 4594 Feb, Low back pain M54.5 and Pain in thoracic spine M54.6 [facility] [address] [address]- 4121 Jan, Panic attacks F41.0 ; Type 2 diabetes mellitus with hyperglycemia, without long-term current use of insulin E11.65 and Other chest pain R07.89 [facility] [address] [address]- 0668 Jan, [facility] [id number] [place] [address] 01230- 9682 Jan, Type 2 diabetes mellitus with hyperglycemia, without long- term current use of insulin E11.65 [place] [id number] [place] [address] 13216- 3072 Jan, Pain in thoracic spine M54.6 [facility] [place] [id number] [place] [address] 33195- 2524 Jan, Type 2 diabetes mellitus with hyperglycemia, without long- term current use of insulin E11.65 and Elevated liver enzymes R74.8 [place] [id number] [place] [address] 97294- 1467 Jan, [place] [id number] [place] [address] 43690- 4486 Dec, Tobacco use Z72.0 ; Prediabetes R73.09 ; Elevated liver enzymes R74.8 ; Elevated fasting glucose R73.01 ; Elevated ALT measurement R74.0 ; Pain in thoracic spine M54.6 ; Panic attacks F41.0 and Type 2 diabetes mellitus with hyperglycemia, without long-term current use of insulin E11.65 [facility] [id number] [place] [address] 02396 -6789 Jun, Abdominal pain, right upper quadrant R10.11 [place] [id number] [place] [address] 44013- 6687 Jun, [place] [id number] [place] [address] 69169- 7100 Jun, [place] [id number] [place] [address] 55969- 8589 Jun, [place] [id number] [place] [address] 50944- 7119 May, Routine gynecological examination Z01.419 ; Encounter for Papanicolaou smear for cervical cancer screening Z12.4 ; Screening breast examination Z12.39 ; Vaginal discharge N89.8 and Candidal vaginitis B37.3 [facility] [place] [id number] [place] [address] 20674- 1046 May, [place] [id number] [place] [address] 48845- 6110 May, Prediabetes R73.09 ; Elevated ALT measurement R74.0 ; Elevated fasting glucose R73.01 and Palpitations R00.2 [place] [id number] [place] [address] 05148- 0624 Feb, [place] [address] 08266- 3878 Feb, [place] [address] 50381- 5000 Feb, Generalized anxiety disorder F41.1 and Major depressive disorder, recurrent episode, moderate F33.1 [place] [id number] [place] [address] 49705- 4900 Feb, Generalized anxiety disorder F41.1 ; Low back pain M54.5 and Insomnia G47.00 [place] [id number] [place] [address] 60717- 9159 Jan, Elevated fasting glucose R73.01 and Elevated ALT measurement R74.[address] 46742- 5312 Jan, Generalized anxiety disorder F41.1 ; Low back pain M54.5 and Screening cholesterol level Z13.220 [place] [id number] [place] [address] 40810- 9885 Dec, Scoliosis M41.9 and Anxiety F41.9 [place] [id number] [place] [address] 29772- 4484 Feb, [place] [address] 12959- 9769 Feb, [place] [id number] [place] [address] 57129- 6241 Apr, [place] [address] 88954- 8528 March, [facility] [place] [facility] [address] [id number] [place] [address]- 6455 March, [facility] [place] [facility] [address] [id number] [place] [address]- 5562 March, [facility] [place] [facility] [address] [id number] [place] 8728 March, [facility] [place] [facility] [address] [id number] [place] [address]- 8118 March, [facility] [place] [facility] [address] [id number] [place] [address]- 9618 March, [facility] [place] [facility] [address] [id number] [place] [address]- 2268 March, [facility] [place] [facility] [address] [id number] [place] [address]- 1727 March, [facility] [place] [facility] [address] [id number] [place] [address]- 5634 Feb, [facility] [place] [facility] [address] [id number] [place] [address]- 2117 Feb, [facility] [place] [facility] [address] [id number] [place] [address]- 3460 Feb, [facility] [place] [facility] [address] [id number] [place] [address]- 2596 Feb, [facility] [place] [facility] [address] [id number] [place] [address]- 1574 Jan, [facility] [place] [facility] [address] [id number] [place] [address]- 9716 Jan, [facility] [place] [facility] [address] [id number] [place] [address]- 7946 Jan, [facility] [place] [facility] [address] [id number] [place] [address]- 9686 Jan, [facility] [place] [facility] [address] [id number] [place] [address]- 7339 Jan, [facility] [place] [facility] [address] [id number] [place] [address]- 9947 Jan, [facility] [place] [facility] [address] [id number] [place] [address]- 0906 Jan, [facility] [place] [facility] [address] [id number] [place] [address]- 1228 Dec, [facility] [place] [facility] [address] [id number] [place] [address]- 4217 Dec, [facility] [place] [facility] [address] [id number] [place] [address]- 1732 Dec, [facility] [place] [facility] [address] [id number] [place] [address]- 0261 Dec, [facility] [place] [facility] [address] [id number] [place] [address]- 9206 Dec, [facility] [place] [facility] [address] [id number] [place] [address]- 1391 Dec, [facility] [place] [facility] [address] [id number] [place] [address]- 8347 Nov, [facility] [place] [facility] [address] [id number] [place] [address]- 9731 Nov, [facility] [place] [facility] [address] [id number] [place] [address]- 5663 Nov, [facility] [place] [facility] [address] [id number] [place] [address]- 3662 Nov, [facility] [place] [facility] [address] [id number] [place] [address]- 7592 Nov, [facility] [place] [facility] [address] [id number] [place] [address]- 7146 Nov, [facility] [place] [facility] [address] [id number] [place] [address]- 1625 Nov, [facility] [place] [facility] [address] [id number] [place] [address]- 3321 Oct, [facility] [place] [facility] [address] [id number] [place] [address]- 9364 Oct, [facility] [place] [facility] [address] [id number] [place] [address]- 9200 Oct, [facility] [place] [facility] [address] [id number] [place] [address]- 3275 Oct, [facility] [place] [facility] [address] [id number] [place] [address]- 6486 Sep, [facility] [place] [facility] [address] [id number] [place] [address]- 4839 Sep, [facility] [place] [facility] [address] [id number] [place] [address]- 5293 Sep, [facility] [place] [facility] [address] [id number] [address]- 3228 Sep, [facility] [place] [facility] [address] [id number] [place] [address]- 3432 Sep, [facility] [place] [facility] [address] [id number], [place] [address]- 7506 Sep, [facility] [place] [facility] [address] [id number], [place] [address]- 9108 Aug, [facility] [place] [facility] [address] [id number] [address]- 0655 Aug, [facility] [place] [facility] [address] [id number] [place] [address]- 3655 Aug, [facility] [place] [facility] [address] [id number], [place] [address]- 7397 Aug, [facility] [place] [facility] [address] [id number], [place] [address]- 2358 Aug, [facility] [place] [facility] [address] [id number] [place] [address]- 2094 07 Aug, 2013 [facility] [address] [id number] [place] [address]- 4727 02 Aug, 2013 [facility] [place] [facility] [address] [id number] [place] [address]- 2040 Jul, [facility] [address] [id number] [place] [address]- 3311 Jul, [facility] [place] [facility] [address] [id number] [place] [address]- 2225 Jun, [facility] [address] [id number] [place] [address]- 6545 May, [facility] [place] [facility] [address] [id number] [place] [address]- 9164 May, [facility] [address] [id number] [place] [address]- 7428 May, [facility] [address] [id number] [place] [address]- 8994 Apr, [facility] [address] [id number] [place] [address]- 3996 Apr, [facility] [address] [id number] [place] [address]- 3957 Apr, [facility] [address] [id number] [place] [address]- 1766 March, [facility] [place] [facility] [address] [id number] [place] [address]- 6911 March, [facility] [place] [facility] [address] [id number] [place] [address]- 7961 March, [facility] [place] [facility] [address] [id number] [place] [address]- 6113 Feb, [facility] [place] [facility] [address] [id number] [place] [address]- 4291 Feb, [facility] [place] [facility] [address] [id number] [place] [address]- 9527 15 Feb, 2013 [facility] [place] [facility] [address] [id number] [place] [address]- 7642 28 Jan, 2013 [facility] [place] [facility] [address] [id number] [place] [address] 19 Jan, 2013 [facility] [place] [facility] [address] [id number] [place] [address] 18 Jan, 2013 [facility] [place] [facility] [address] [id number] [place] [address] 15 Jan, 2013 [facility] [place] [facility] [address] [id number] [place] [address] 14 Jan, 2013 [facility] [address] [facility] [id number] [place] [address] 12 Jan, 2013 [facility] [place] [facility] [address] [id number] [place] [address] 05 Jan, 2013 [facility] [place] [facility] [address] [id number] [place] [address] 28 Dec, 2012 [facility] [place] [facility] [address] [id number] [place] [address] 18 Dec, 2012 [facility] [place] [facility] [address] [id number] [place] [address] 15 Dec, 2012 [facility] [place] [facility] [address] [id number] [address] 14 Dec, 2012 [facility] [place] [facility] [address] [id number] [place] [address] 05 Dec, 2012 [facility] [place] [facility] [address] [id number] [place] [address] 29 Nov, 2012 [facility] [place] [facility] [address] [id number] [place] [address] 17 Nov, 2012 [facility] [place] [facility] [address] [id number], [place] [address] Nov, [facility] [address] [id number] [place] [address] Nov, [facility] [place] [facility] [address] [id number] [place] [address] Oct, [facility] [place] [facility] [address] [id number] [place] [address] Oct, [facility] [place] [facility] [address] [id number] [place] [address] Oct, [facility] [place] [facility] [address] [id number] [place] [address] Oct, [facility] [place] [facility] [address] [id number] [place] [address] Oct, [facility] [place] [facility] [address] [id number] [place] [address] Oct, [facility] [place] [facility] [address] [id number] [place] [address] Oct, [facility] [place] [facility] [address] [id number] [place] [address] Oct, [facility] [place] [facility] [address] [facility] [id number] [place] [address] Oct, [facility] [place] [facility] [address] [id number] [place] [address] 16 Sep, 2012 [facility] [place] [facility] [address] [id number] [place] [address] 16 Sep, 2012 [facility] [place] [facility] [address] [id number] [place] [address] Sep, [facility] [place] [facility] [address] [id number] [place] [address] Sep, [facility] [place] [facility] [address] [facility] [id number] [place] [address] Sep, [facility] [place] [facility] [address] [id number] [place] [address] Aug, 2011 [facility] [place] [facility] [address] [id number] [place] [address] 25 Aug, 2011 [facility] [place] [facility] [address] [id number] [place] [address] 3536 17 Aug, 2011 [facility] [place] [facility] [address] [id number] [place] [address] 17 Aug, 2011 [facility] [place] [facility] [address] [id number] [place] [address] 16 Aug, 2011 [facility] [place] [facility] [address] [id number] [place] [address] Aug, [facility] [place] [facility] [address] [id number] [place] [address] Aug, [facility] [place] [facility] [address] [id number] [place] [address] 10 Aug, 2012 [facility] [place] [facility] [address] [id number] [place] [address] 10 Aug, 2012 [facility] [place] [facility] [address] [id number] [place] [address] 09 Aug, 2012 [facility] [place] [facility] [address] [id number] [place] [address] 05 Aug, 2012 [facility] [place] [facility] [address] [id number] [place] [address] 04 Aug, 2012 [facility] [place] [facility] [address] [id number] [place] [address] 17 Sep, 2011 [facility] [place] [facility] [address] [id number] [place] [address] 13 Sep, 2011 [facility] [place] [facility] [address] [id number] [place] [address] 13 Sep, 2011 [facility] [place] [facility] [address] [id number] [place] [address] 11 Jul, 2012 [facility] [place] [facility] [address] [id number] [place] [address] 10 Jul, 2012 [facility] [place] [facility] [address] [id number] [place] [address] 08 Jul, 2012 [facility] [place] [facility] [address] [id number] [place] [address] 16 Jun, 2012 [facility] [place] [facility] [address] [id number] [place] [address] 14 Jun, 2012 [facility] [place] [facility] [address] [id number] [place] [address] 17 May, 2012 [facility] [place] [facility] [address] [id number] [place] [address] 17 May, 2012 [facility] [place] [facility] [address] [id number] [place] [address] 9665 13 May, 2012 [facility] [place] [facility] [address] [id number] [place] [address] May, [facility] [place] [facility] [address] [id number] [place] [address] Apr, [facility] [place] [facility] [address] [id number] [place] [address] Apr, [facility] [place] [facility] [address] [id number] [place] [address] Apr, [facility] [place] [facility] [address] [id number] [place] [address] 119[address] Apr, [facility] [place] [facility] [address] [id number] [place] [address] Apr, [facility] [place] [facility] [address] [id number] [place] [address] March, [facility] [place] [facility] [address] [id number] [place] [address] March, [facility] [place] [facility] [address] [id number] [place] [address] March, [facility] [address] [id number] [place] [address] March, [facility] [place] [facility] [address] [id number] [place] [address] 117[address] March, [facility] [address] [id number] [place] [address] Feb, [facility] [place] [facility] [address] [id number] [place] [address] Feb, [facility] [place] [facility] [address] [id number] [place] [address] Jan, [facility] [place] [facility] [address] [id number] [place] [address] Jan, [facility] [address] [id number] [place] [address] Jan, [facility] [place] [facility] [address] [id number] [place] [address] Dec, [facility] [place] [facility] [address] [id number] [place] [address] Nov, [facility] [place] [facility] [address] [id number] [place] [address] Nov, [facility] [place] [facility] [address] [id number] [place] [address] Nov, [facility] [place] [facility] [address] [id number] [place] [address] Nov, [facility] [place] [facility] [address] [id number] [place] [address] 46[address] Oct, [facility] [place] [facility] [address] [id number] [place] [address] Oct, [facility] [place] [facility] [address] [id number] [place] [address] Sep, [facility] [place] [facility] [address] [id number] [place] [address] 8069 18 Sep, 2011 [facility] [place] [facility] [address] [id number] [place] [address] Sep, [facility] [place] [facility] [address] [id number] [place] [address] 10 Sep, 2011 [facility] [place] [facility] [address] [id number] [place] [address] 08 Sep, 2011 [facility] [place] [facility] [address] [id number] [place] [address] 16 Jun, 2011 [facility] [place] [facility] [address] [id number] [place] [address] 9477 15 Dec, 2010 [facility] [place] [facility] [address] [id number] [place] [address] Sep, [facility] [place] [facility] [address] [id number] [place] [address] Aug, [facility] [place] [facility] [address] [id number] [place] [address] Aug, [facility] [place] [facility] [address] [id number] [place] [address] Aug, [facility] [place] [facility] [address] [id number] [place] [address] 16[address] Aug, [facility] [place] [facility] [address] [id number] [place] [address] Aug, [facility] [place] [facility] [address] [id number] [place] [address] 46[address] Jun, [facility] [place] [facility] [address] [id number] [place] [address] 16[address] 13 Feb, 2010 [facility] [place] [facility] [address] [id number] [place] [address]- 113[address] 06 Sep, 2009 [facility] [place] [facility] [address] [id number] [place] [address] Aug, [facility] [place] [address] [facility] [id number] [place] [address] Apr, [facility] [place] [address] [facility] [id number] [place] [address] March, IMMUNIZATIONS No Known Immunizations SOCIAL HISTORY Never Assessed REASON FOR VISIT Order request PLAN OF CARE VITAL SIGNS MEDICATIONS Medication Instructions Dosage Frequency Start Date End Date Duration Status Nebulizer/Tubing/Mouthpiece - Use as directed with Albuterol Sulfate Inhalation solution May, lifetime Active RESULTS No Results PROCEDURES No Known procedures INSTRUCTIONS MEDICATIONS ADMINISTERED No Known Medications MEDICAL (GENERAL) HISTORY Type Description Date Medical History Scoliosis Medical History Bipolar Surgical History right hip replacement Surgical History c-sections x4 Hospitalization History Pneumonia 2011
--- OUTSIDE RECORDS SUMMARY | 2019-02-03 10:52 | XMS REPORT ---
Author Author ASHOK ROMY Organization [facility] Address [address] [place] [address] Care Team Providers Care Nursery Hand Name Role Phone ASHOKPHILLIP PRIDEHANY Unavailable PROBLEMS Type Condition ICD9-CM Code [id number] Code Onset Dates Condition Status SNOMED Code Problem Lumbago with sciatica, right side M54.41 Active 267634733 Problem Tension headache G44.209 Active 251853810 Problem Other chronic pain G89.29 Active 48586654 Problem COPD with exacerbation J44.1 Active 454709867 Problem Fibromyalgia M79.7 Active 946883866 Problem Peripheral polyneuropathy G62.9 Active 92116224 Problem Chest pain, unspecified type R07.9 Active 70164794 Problem Retinitis pigmentosa H35.52 Active 04645224 Problem Cervical disc disorder at C5-C6 level with radiculopathy M50.122 Active 935741501 Problem Carpal tunnel syndrome of left wrist G56.02 Active 914712687760542 Problem Anxiety state, unspecified F41.1 Active 320968894 Problem Low back pain M54.5 Active 920273473 Problem Major depressive disorder, recurrent episode, moderate F33.1 Active 312143011 Problem Calculus of gallbladder without cholecystitis without obstruction K80.20 Active 176632581 Problem Generalized anxiety disorder F41.1 Active 72738975 Problem Panic attacks F41.0 Active 411850517 Problem Type 2 diabetes mellitus with hyperglycemia, without long-term current use of insulin E11.65 Active 73675385 Problem Insomnia G47.00 Active 162911784 Problem 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 [id number] [address] Jun, Cervical disc disorder at C5-C6 level with radiculopathy M50.122 [facility] [id number] [place] [address] 81384- 4809 Jun, [facility] [id number] [place] [address] 83278- 4406 Jun, Pneumonia of right lung due to infectious organism, unspecified part of lung J18.9 [facility] [address] [address]- 3817 May, [facility] [id number] [place] [address] 43755- 3316 May, Cough R05 [place] [address] 54278- 9643 May, [place] [id number] [place] [address] 25487- 1118 May, COPD with exacerbation J44.1 [facility] [id number] [place] [address] 53165- 4005 May, Type 2 diabetes mellitus with hyperglycemia, without long- term current use of insulin E11.65 ; Peripheral polyneuropathy G62.9 ; Cough R05 and COPD with exacerbation J44.1 [facility] [id number] [place] [address] 17087- 4521 May, [facility] [id number] [place] [address] 49604- 5372 May, COPD with exacerbation J44.1 and Tobacco abuse counseling Z71.6 [facility] [id number] [place] [address] 02292- 7489 May, [facility] [id number] [place] [address] 76111- 8672 May, [facility] [id number] [place] [address] 58009 -8398 May, Numbness of left hand R20.0 and Carpal tunnel syndrome of left wrist G56.02 [place] [id number] [place] [address] 32995- 0779 May, [place] [id number] [place] [address] 04155- 3381 Apr, Type 2 diabetes mellitus with hyperglycemia, without long- term current use of insulin E11.65 [place] [id number] [place] [address] 26864- 1311 March, Anxiety state, unspecified F41.1 [place] [id number] [place] [address] 27881- 6700 Feb, [place] [id number] [place] [address] 59678- 7792 Feb, Medicare annual wellness visit, initial Z00.00 ; Type 2 diabetes mellitus with hyperglycemia, without long-term current use of insulin E11.65 ; Major depressive disorder, recurrent episode, moderate F33.1 ; Mixed hyperlipidemia E78.2 ; Fibromyalgia M79.7 ; Retinitis pigmentosa H35.52 ; Panic attacks F41.0 ; Facial skin lesion L98.9 ; Fullness of neck R22.1 and Screening for colon cancer Z12.11 [place] [id number] [place] [address] 98334- 2432 Feb, Type 2 diabetes mellitus with hyperglycemia, without long- term current use of insulin E11.65 [place] [id number] [place] [address] 61470- 2998 Jan, [place] [id number] [place] [address] 52270- 2889 Jan, Asymptomatic microscopic hematuria R31.21 ; Chest pain, unspecified type R07.9 and Generalized anxiety disorder F41.1 [place] [id number] [place] [address] 71195- 6095 Jan, [place] [id number] [place] [address] 76710- 2689 Jan, [facility] [address] [id number] [address] Dec, [facility] [id number] [place] [address] 95260- 4621 Dec, [facility] [id number] [place] [address] 72421- 0862 Dec, [facility] [id number] [place] [address] 20765- 2425 Dec, [facility] [id number] [place] [address] 19390- 5701 Dec, [facility] [id number] [place] [address] 84661- 1001 Dec, Tension headache G44.209 [facility] [id number] [place] [address] 90954- 8280 Dec, Elevated LFTs R79.89 ; Type 2 diabetes mellitus with hyperglycemia, without long-term current use of insulin E11.65 ; Abdominal bloating R14.0 and Other fatigue R53.83 [facility] [id number] [place] [address] 44305- 3125 Dec, Elevated ALT measurement R74.0 [facility] [address] [place] [address] 46395- 5571 Nov, Type 2 diabetes mellitus with hyperglycemia, without long- term current use of insulin E11.65 and Mixed hyperlipidemia E78.2 [facility] [id number] [place] [address] 13773- 8212 Oct, [facility] [id number] [place] [address] 17471- 8456 Oct, Elevated ALT measurement R74.0 [facility] [id number] [place] [address] 93651- 8216 Oct, [facility] [id number] [place] [address] 22248- 1263 Oct, [place] [id number] [place] [address] 09960- 4132 08 Oct, 2017 Breast cancer screening Z12.31 [place] [id number] [place] [address] 35968- 6991 Sep, Tension headache G44.209 ; Cervical disc disorder at C5-C6 level with radiculopathy M50.122 ; Other fatigue R53.83 ; Breast pain, left N64.4 ; Vertigo R42 and Abnormal tympanic membrane of left ear H73.92 [facility] [id number] [place] [address] 20702 -4963 24 Sep, 2017 Screening breast examination Z12.[address] 69040- 9828 Sep, [address] 26325- 8321 Sep, Mixed hyperlipidemia E78.2 and Type 2 diabetes mellitus with hyperglycemia, without long-term current use of insulin E11.65 [place] [id number] [place] [address] 43040- 2380 Jul, [address] 29185- 8115 Jul, Lumbago with sciatica, right side M54.41 and Other chronic pain G89.[address] 57077- 3507 May, Type 2 diabetes mellitus with hyperglycemia, without long- term current use of insulin E11.65 ; Low back pain M54.5 ; Tobacco use Z72.0 ; Mixed hyperlipidemia E78.2 ; Lateral epicondylitis of right elbow M77.11 and 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 [place] [id number] [place] [address] 84039- 1389 Apr, [address] 67772- 8061 Apr, Low back pain M54.5 [facility] [address] [address]- 5779 Apr, Pain in thoracic spine M54.6 [facility] [address] [place] [address] 98396 -0619 March, Lumbosacral neuritis M54.17 [facility] [id number] [place] [address] 04614- 1379 March, Low back pain M54.5 [facility] [id number] [place] [address] 61689- 4607 March, [facility] [id number] [place] [address] 80601- 5379 March, [facility] [id number] [place] [address] 99903- 5158 March, [facility] [id number] [place] [address] 69922- 4380 Feb, [facility] [id number] [place] [address] 44687- 9853 Feb, [facility] [id number] [place] [address] 75121- 8290 Feb, [facility] [id number] [place] [address] 12098- 1883 Feb, Low back pain M54.5 and Pain in thoracic spine M54.6 [facility] [address] [address]- 2584 Jan, Panic attacks F41.0 ; Type 2 diabetes mellitus with hyperglycemia, without long-term current use of insulin E11.65 and Other chest pain R07.89 [facility] [address] [address]- 9738 Jan, [facility] [address] [place] [address] 56176- 6879 Jan, Type 2 diabetes mellitus with hyperglycemia, without long- term current use of insulin E11.65 [place] [address] [place] [address] 97575- 0449 Jan, Pain in thoracic spine M54.6 [facility] [id number] [place] [address] 79444- 6044 Jan, Type 2 diabetes mellitus with hyperglycemia, without long- term current use of insulin E11.65 and Elevated liver enzymes R74.8 [place] [id number] [place] [address] 94434- 9424 Jan, [place] [id number] [place] [address] 42295- 8809 Dec, Tobacco use Z72.0 ; Prediabetes R73.09 ; Elevated liver enzymes R74.8 ; Elevated fasting glucose R73.01 ; Elevated ALT measurement R74.0 ; Pain in thoracic spine M54.6 ; Panic attacks F41.0 and Type 2 diabetes mellitus with hyperglycemia, without long-term current use of insulin E11.65 [facility] [id number] [place] [address] 87792 -8179 Jun, Abdominal pain, right upper quadrant R10.11 [place] [id number] [place] [address] 49392- 7724 Jun, [place] [id number] [place] [address] 53768- 2589 Jun, [place] [id number] [place] [address] 19666- 1993 Jun, [place] [id number] [place] [address] 33462- 4841 May, Routine gynecological examination Z01.419 ; Encounter for Papanicolaou smear for cervical cancer screening Z12.4 ; Screening breast examination Z12.39 ; Vaginal discharge N89.8 and Candidal vaginitis B37.3 [facility] [id number] [place] [address] 59873- 5847 May, [place] [id number] [place] [address] 34190- 2310 May, Prediabetes R73.09 ; Elevated ALT measurement R74.0 ; Elevated fasting glucose R73.01 and Palpitations R00.2 [place] [id number] [place] [address] 11936- 0080 Feb, [place] [address] 79475- 4879 Feb, [place] [address] 40124- 9753 Feb, Generalized anxiety disorder F41.1 and Major depressive disorder, recurrent episode, moderate F33.1 [place] [id number] [place] [address] 71629- 8823 Feb, Generalized anxiety disorder F41.1 ; Low back pain M54.5 and Insomnia G47.00 [place] [id number] [place] [address] 45612- 5637 Jan, Elevated fasting glucose R73.01 and Elevated ALT measurement R74.[address] 84123- 7450 Jan, Generalized anxiety disorder F41.1 ; Low back pain M54.5 and Screening cholesterol level Z13.220 [place] [id number] [place] [address] 60060- 5608 Dec, Scoliosis M41.9 and Anxiety F41.9 [place] [id number] [place] [address] 57572- 5578 Feb, [place] [address] 37403- 9747 Feb, [place] [id number] [place] [address] 62193- 7454 Apr, [place] [address] 36905- 9311 March, [facility] [place] [facility] [address] [id number] [place] [address]- 6133 March, [facility] [place] [facility] [address] [id number] [place] [address]- 8144 March, [facility] [place] [facility] [address] [id number] [place]246 March, [facility] [place] [facility] [address] [id number] [place] [address]- 0855 March, [facility] [place] [facility] [address] [id number] [place] [address]- 3639 March, [facility] [place] [facility] [address] [id number] [place] [address]- 4451 March, [facility] [place] [facility] [address] [id number] [place] [address]- 4711 March, [facility] [place] [facility] [address] [id number] [place] [address]- 8937 Feb, [facility] [place] [facility] [address] [id number] [place] [address]- 0018 Feb, [facility] [place] [facility] [address] [id number] [place] [address]- 7867 Feb, [facility] [place] [facility] [address] [id number] [place] [address]- 2454 Feb, [facility] [place] [facility] [address] [id number] [place] [address]- 1924 Jan, [facility] [place] [facility] [address] [id number] [place] [address]- 3242 Jan, [facility] [place] [facility] [address] [id number] [place] [address]- 2204 Jan, [facility] [place] [facility] [address] [id number] [place] [address]- 5643 Jan, [facility] [place] [facility] [address] [id number] [place] [address]- 8971 Jan, [facility] [place] [facility] [address] [id number] [place] [address]- 6038 Jan, [facility] [place] [facility] [address] [id number] [place] [address]- 8706 Jan, [facility] [place] [facility] [address] [id number] [place] [address]- 9628 Dec, [facility] [place] [facility] [address] [id number] [place] [address]- 7403 Dec, [facility] [place] [facility] [address] [id number] [place] [address]- 4010 Dec, [facility] [place] [facility] [address] [id number] [place] [address]- 0487 Dec, [facility] [place] [facility] [address] [id number] [place] [address]- 1490 Dec, [facility] [place] [facility] [address] [id number] [place] [address]- 0343 Dec, [facility] [place] [facility] [address] [id number] [place] [address]- 5668 Nov, [facility] [place] [facility] [address] [id number] [place] [address]- 3861 Nov, [facility] [place] [facility] [address] [id number] [place] [address]- 1975 Nov, [facility] [place] [facility] [address] [id number] [place] [address]- 7294 Nov, [facility] [place] [facility] [address] [id number] [place] [address]- 8073 Nov, [facility] [place] [facility] [address] [id number] [place] [address]- 8836 Nov, [facility] [place] [facility] [address] [id number] [place] [address]- 2263 Nov, [facility] [place] [facility] [address] [id number] [place] [address]- 9799 Oct, [facility] [place] [facility] [address] [id number] [place] [address]- 3590 Oct, [facility] [place] [facility] [address] [id number] [place] [address]- 4764 Oct, [facility] [place] [facility] [address] [id number] [place] [address]- 1002 Oct, [facility] [place] [facility] [address] [id number] [place] [address]- 1416 Sep, [facility] [place] [facility] [address] [id number] [place] [address]- 2349 Sep, [facility] [place] [facility] [address] [id number] [place] [address]- 3607 Sep, [facility] [place] [facility] [address] [id number] [place] [address]- 5948 Sep, [facility] [place] [facility] [address] [id number] [place] [address]- 8366 Sep, [facility] [place] [facility] [address] [id number] [place] [address]- 0508 Sep, [facility] [place] [facility] [address] [id number] [place] [address]- 5450 Aug, [facility] [place] [facility] [address] [id number] [place] [address]- 5731 Aug, [facility] [place] [facility] [address] [id number] [place] [address]- 3126 Aug, [facility] [place] [facility] [address] [id number] [place] [address]- 8113 Aug, [facility] [place] [facility] [address] [id number] [place] [address]- 4875 Aug, [facility] [place] [facility] [address] [id number] [place] [address]- 9666 07 Aug, 2013 [facility] [address] [id number] [place] [address]- 4233 02 Aug, 2013 [facility] [place] [facility] [address] [id number] [place] [address]- 7337 Jul, [facility] [address] [id number] [place] [address]- 1440 Jul, [facility] [place] [facility] [address] [id number] [place] [address]- 7463 Jun, [facility] [address] [id number] [place] [address]- 6863 May, [facility] [place] [facility] [address] [id number] [place] [address]- 8341 May, [facility] [address] [id number] [place] [address]- 0682 May, [facility] [address] [id number] [place] [address]- 1903 Apr, [facility] [address] [id number] [place] [address]- 5348 Apr, [facility] [address] [id number] [place] [address]- 0745 Apr, [facility] [address] [id number] [place] [address]- 0355 March, [facility] [place] [facility] [address] [id number] [place] [address]- 8611 March, [facility] [place] [facility] [address] [id number] [place] [address]- 4653 March, [facility] [place] [facility] [address] [id number] [place] [address]- 5827 Feb, [facility] [place] [facility] [address] [id number] [place] [address]- 0640 Feb, [facility] [place] [facility] [address] [id number] [place] [address]- 1328 15 Feb, 2013 [facility] [place] [facility] [address] [id number] [place] [address]- 0522 28 Jan, 2013 [facility] [place] [facility] [address] [id number] [place] [address]- 4495 19 Jan, 2013 [facility] [place] [facility] [address] [id number] [place] [address]- 8668 18 Jan, 2013 [facility] [place] [facility] [address] [id number] [place] [address]- 3090 15 Jan, 2013 [facility] [place] [facility] [address] [id number] [place] [address]- 4969 14 Jan, 2013 [facility] [address] [facility] [id number] [place] [address]- 1253 12 Jan, 2013 [facility] [place] [facility] [address] [id number] [place] [address]- 3179 05 Jan, 2013 [facility] [place] [facility] [address] [id number] [place] [address]- 0673 28 Dec, 2012 [facility] [place] [facility] [address] [id number] [place] [address]- 4017 18 Dec, 2012 [facility] [place] [facility] [address] [id number] [place] [address]- 6711 15 Dec, 2012 [facility] [place] [facility] [address] [id number] [place] [address]- 3310 14 Dec, 2012 [facility] [place] [facility] [address] [id number] [place] [address]- 4772 05 Dec, 2012 [facility] [place] [facility] [address] [id number] [place] [address]- 5636 29 Nov, 2012 [facility] [place] [facility] [address] [id number] [place] [address]- 4895 17 Nov, 2012 [facility] [place] [facility] [address] [id number] [place] [address]- 4560 Nov, [facility] [address] [id number] [place] [address]- 5193 Nov, [facility] [place] [facility] [address] [id number] [place] [address]- 3691 Oct, [facility] [place] [facility] [address] [id number] [place] [address]- 0336 Oct, [facility] [place] [facility] [address] [id number] [place] [address]- 5544 Oct, [facility] [place] [facility] [address] [id number] [place] [address]- 2104 Oct, [facility] [place] [facility] [address] [id number] [place] [address] Oct, [facility] [place] [facility] [address] [id number] [place] [address] Oct, [facility] [place] [facility] [address] [id number] [place] [address] Oct, [facility] [place] [facility] [address] [id number] [place] [address] Oct, [facility] [place] [facility] [address] [facility] [id number] [place] [address] Oct, [facility] [place] [facility] [address] [id number] [place] [address] 16 Sep, 2012 [facility] [place] [facility] [address] [id number] [place] [address] 16 Sep, 2012 [facility] [place] [facility] [address] [id number] [place] [address] Sep, [facility] [place] [facility] [address] [id number] [place] [address] Sep, [facility] [place] [facility] [address] [facility] [id number] [place] [address] Sep, [facility] [place] [facility] [address] [id number] [place] [address] Aug, 2011 [facility] [place] [facility] [address] [id number] [place] [address] 25 Aug, 2011 [facility] [place] [facility] [address] [id number] [place] [address] 17 Aug, 2011 [facility] [place] [facility] [address] [id number] [place] [address] 17 Aug, 2011 [facility] [place] [facility] [address] [id number] [place] [address] 16 Aug, 2011 [facility] [place] [facility] [address] [id number] [place] [address] Aug, [facility] [place] [facility] [address] [id number] [place] [address] Aug, [facility] [place] [facility] [address] [id number] [place] [address] 10 Aug, 2012 [facility] [place] [facility] [address] [id number] [place] [address] 10 Aug, 2012 [facility] [place] [facility] [address] [id number] [place] [address] 09 Aug, 2012 [facility] [place] [facility] [address] [id number] [place] [address]- [address] 05 Aug, 2012 [facility] [place] [facility] [address] [id number] [place] [address]- [address] 04 Aug, 2012 [facility] [place] [facility] [address] [id number] [place] [address] 17 Sep, 2011 [facility] [place] [facility] [address] [id number] [place] [address] 13 Sep, 2011 [facility] [place] [facility] [address] [id number] [place] [address] 13 Sep, 2011 [facility] [place] [facility] [address] [id number] [place] [address] 11 Jul, 2012 [facility] [place] [facility] [address] [id number] [place] [address] 10 Jul, 2012 [facility] [place] [facility] [address] [id number] [place] [address] 08 Jul, 2012 [facility] [place] [facility] [address] [id number] [place] [address] 16 Jun, 2012 [facility] [place] [facility] [address] [id number] [place] [address] 14 Jun, 2012 [facility] [place] [facility] [address] [id number] [place] [address]- [address] 17 May, 2012 [facility] [place] [facility] [address] [id number] [place] [address] 17 May, 2012 [facility] [place] [facility] [address] [id number] [place] [address] 13 May, 2012 [facility] [place] [facility] [address] [id number] [place] [address] May, [facility] [place] [facility] [address] [id number] [place] [address] Apr, [facility] [place] [facility] [address] [id number] [place] [address] Apr, [facility] [place] [facility] [address] [id number] [place] [address] Apr, [facility] [place] [facility] [address] [id number] [place] [address] Apr, [facility] [place] [facility] [address] [id number] [place] [address] Apr, [facility] [place] [facility] [address] [id number] [place] [address] March, [facility] [place] [facility] [address] [id number] [place] [address] March, [facility] [place] [facility] [address] [id number] [place] [address] March, [facility] [address] [id number] [place] [address] March, [facility] [place] [facility] [address] [id number] [place] [id number] March, [facility] [address] [id number] [place] [address] Feb, [facility] [place] [facility] [address] [id number] [place] [address] Feb, [facility] [place] [facility] [address] [id number] [place] [address] Jan, [facility] [place] [facility] [address] [id number] [place] [address] Jan, [facility] [address] [id number] [place] [address] Jan, [facility] [place] [facility] [address] [id number] [place] [address] Dec, [facility] [place] [facility] [address] [id number] [place] [address] Nov, [facility] [place] [facility] [address] [id number] [place] [address] Nov, [facility] [place] [facility] [address] [id number] [place] [address] Nov, [facility] [place] [facility] [address] [id number] [place] [address] Nov, [facility] [place] [facility] [address] [id number] [place] [address] Oct, [facility] [place] [facility] [address] [id number] [place] [address] Oct, [facility] [place] [facility] [address] [id number] [place] [address] Sep, [facility] [place] [facility] [address] [id number] [place] [address] 18 Sep, 2011 [facility] [place] [facility] [address] [id number] [place] [address] Sep, [facility] [place] [facility] [address] [id number] [place] [address] 10 Sep, 2011 [facility] [place] [facility] [address] [id number] [place] [address] 08 Sep, 2011 [facility] [place] [facility] [address] [id number] [place] [address] 16 Jun, 2011 [facility] [place] [facility] [address] [id number] [place] [address] 15 Dec, 2010 [facility] [place] [facility] [address] [id number] [place] [address] Sep, [facility] [place] [facility] [address] [id number] [place] [address] Aug, [facility] [place] [facility] [address] [id number] [place] [address] Aug, [facility] [place] [facility] [address] [id number] [place] [address] Aug, [facility] [place] [facility] [address] [id number] [place] [address] Aug, [facility] [place] [facility] [address] [id number] [place] [address] Aug, [facility] [place] [facility] [address] [id number] [place] [address] Jun, [facility] [place] [facility] [address] [id number] [place] [address] 13 Feb, 2010 [facility] [place] [facility] [address] [id number] [place] [address] 06 Sep, 2009 [facility] [place] [facility] [address] [id number] [place] [address] Aug, [facility] [address] [facility] [id number] [place] [address] Apr, [facility] [address] [facility] [id number] [place] [address] March, IMMUNIZATIONS No Known Immunizations SOCIAL HISTORY Never Assessed REASON FOR VISIT 6 mo DM ed f/u PLAN OF CARE VITAL SIGNS MEDICATIONS No Known Medications RESULTS No Results PROCEDURES No Known procedures INSTRUCTIONS MEDICATIONS ADMINISTERED No Known Medications MEDICAL (GENERAL) HISTORY Type Description Date Medical History Scoliosis Medical History Bipolar Surgical History right hip replacement Surgical History c-sections x4 Hospitalization History Pneumonia 2011
--- OUTSIDE RECORDS SUMMARY | 2019-02-03 10:53 | XMS REPORT ---
Author Author ROSENDO DODSON Organization [facility] Address [address] [place] [address] Care Team Providers Care Special Delivery Carrier Name Role Phone ROSENDO DODSON Unavailable PROBLEMS Type Condition ICD9-CM Code PSS46-CE Code Onset Dates Condition Status SNOMED Code Problem Lumbago with sciatica, right side M54.41 Active 744652651 Problem Tension headache G44.209 Active 813833386 Problem Other chronic pain G89.29 Active 57409991 Problem COPD with exacerbation J44.1 Active 025618576 Problem Fibromyalgia M79.7 Active 792362560 Problem Peripheral polyneuropathy G62.9 Active 08246399 Problem Chest pain, unspecified type R07.9 Active 55289431 Problem Retinitis pigmentosa H35.52 Active 74779540 Problem Cervical disc disorder at C5-C6 level with radiculopathy M50.122 Active 974501491 Problem Carpal tunnel syndrome of left wrist G56.02 Active 071058884610310 Problem Anxiety state, unspecified F41.1 Active 345223470 Problem Low back pain M54.5 Active 681216338 Problem Major depressive disorder, recurrent episode, moderate F33.1 Active 601214449 Problem Calculus of gallbladder without cholecystitis without obstruction K80.20 Active 306585428 Problem Generalized anxiety disorder F41.1 Active 52565047 Problem Panic attacks F41.0 Active 098200778 Problem Type 2 diabetes mellitus with hyperglycemia, without long-term current use of insulin E11.65 Active 64328645 Problem Insomnia G47.00 Active 956639148 Problem 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 Active 00285339 Problem Tobacco use Z72.0 Active 388792581 Problem Mixed hyperlipidemia E78.2 Active 808579563 ALLERGIES No Information ENCOUNTERS Encounter Location Date Diagnosis [facility] [address] [facility]NOTE 3[facility] [id number] [address] Jun, Cervical disc disorder at C5-C6 level with radiculopathy M50.122 [place] [id number] [place] [address] 24620- 4039 Jun, [place] [id number] [place] [address] 04448- 0137 Jun, Pneumonia of right lung due to infectious organism, unspecified part of lung J18.9 [place] [id number] [place] [address] 68552- 0320 May, [facility] [id number] [place] [address] 23749- 8196 May, Cough R05 [place] [address] 23605- 3795 May, [place] [id number] [place] [address] 55681- 4380 May, COPD with exacerbation J44.1 [place] [id number] [place] [address] 53072- 7024 May, Type 2 diabetes mellitus with hyperglycemia, without long- term current use of insulin E11.65 ; Peripheral polyneuropathy G62.9 ; Cough R05 and COPD with exacerbation J44.1 [place] [id number] [place] [address] 54858- 5903 May, [place] [id number] [place] [address] 40178- 3941 May, COPD with exacerbation J44.1 and Tobacco abuse counseling Z71.6 [place] [id number] [place] [address] 67326- 4984 May, [place] [id number] [place] [address] 30399- 6666 May, [facility] [id number] [place] [address] 24215 -5931 May, Numbness of left hand R20.0 and Carpal tunnel syndrome of left wrist G56.02 [place] [id number] [place] [address] 70317- 5091 May, [place] [id number] [place] [address] 68940- 8693 Apr, Type 2 diabetes mellitus with hyperglycemia, without long- term current use of insulin E11.65 [place] [id number] [place] [address] 96259- 3488 March, Anxiety state, unspecified F41.1 [place] [id number] [place] [address] 33741- 7793 Feb, [place] [address] 96341- 9943 Feb, Medicare annual wellness visit, initial Z00.00 ; Type 2 diabetes mellitus with hyperglycemia, without long-term current use of insulin E11.65 ; Major depressive disorder, recurrent episode, moderate F33.1 ; Mixed hyperlipidemia E78.2 ; Fibromyalgia M79.7 ; Retinitis pigmentosa H35.52 ; Panic attacks F41.0 ; Facial skin lesion L98.9 ; Fullness of neck R22.1 and Screening for colon cancer Z12.11 [place] [id number] [place] [address] 38713- 0832 Feb, Type 2 diabetes mellitus with hyperglycemia, without long- term current use of insulin E11.65 [place] [id number] [place] [address] 52038- 1081 Jan, [place] [id number] [place] [address] 17633- 8989 Jan, Asymptomatic microscopic hematuria R31.21 ; Chest pain, unspecified type R07.9 and Generalized anxiety disorder F41.1 [place] [id number] [place] [address] 56534- 7962 Jan, [place] [id number] [place] [address] 11856- 8582 Jan, [facility] [address] [place] [address] Dec, [facility] [id number] [place] [address] 77754- 6201 Dec, [facility] [id number] [place] [address] 91503- 9313 Dec, [facility] [id number] [place] [address] 05700- 5644 Dec, [facility] [address] 40602- 2886 Dec, [facility] [address] 10932- 6815 Dec, Tension headache G44.209 [place] [id number] [place] [address] 96138- 3952 Dec, Elevated LFTs R79.89 ; Type 2 diabetes mellitus with hyperglycemia, without long-term current use of insulin E11.65 ; Abdominal bloating R14.0 and Other fatigue R53.83 [facility] [id number] [place] [address] 88627- 8131 Dec, Elevated ALT measurement R74.0 [facility] [id number] [place] [address] 57097- 0408 Nov, Type 2 diabetes mellitus with hyperglycemia, without long- term current use of insulin E11.65 and Mixed hyperlipidemia E78.2 [facility] [id number] [place] [address] 54595- 8389 Oct, [facility] [id number] [place] [address] 87912- 0298 Oct, Elevated ALT measurement R74.0 [facility] [id number] [place] [address] 40610- 7537 Oct, [facility] [id number] [place] [address] 27823- 4884 Oct, [place] [id number] [place] [address] 95408- 3413 08 Oct, 2017 Breast cancer screening Z12.[address] [address]69- 7315 Sep, Tension headache G44.209 ; Cervical disc disorder at C5-C6 level with radiculopathy M50.122 ; Other fatigue R53.83 ; Breast pain, left N64.4 ; Vertigo R42 and Abnormal tympanic membrane of left ear H73.92 [facility] [address] 04592 -4946 24 Sep, 2017 Screening breast examination Z12.[address] 64348- 9798 Sep, [address] 42922- 7491 Sep, Mixed hyperlipidemia E78.2 and Type 2 diabetes mellitus with hyperglycemia, without long-term current use of insulin E11.[address] 99417- 9835 Jul, [address] 93940- 8817 Jul, Lumbago with sciatica, right side M54.41 and Other chronic pain G89.[address] 30218- 1215 May, Type 2 diabetes mellitus with hyperglycemia, without long- term current use of insulin E11.65 ; Low back pain M54.5 ; Tobacco use Z72.0 ; Mixed hyperlipidemia E78.2 ; Lateral epicondylitis of right elbow M77.11 and 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 45668- 1774 Apr, [address] 54387- 4324 Apr, Low back pain M54.5 [facility] [address] [address] 4610 Apr, Pain in thoracic spine M54.6 [facility] [id number] [place] [address] 49734 -7787 March, Lumbosacral neuritis M54.17 [facility] [id number] [place] [address] 70170- 2481 March, Low back pain M54.5 [facility] [id number] [place] [address] 71499- 7834 March, [facility] [id number] [place] [address] 08115- 6977 March, [facility] [id number] [place] [address] 12843- 2584 March, [facility] [id number] [place] [address] 40279- 3052 Feb, [facility] [id number] [place] [address] 44873- 5996 Feb, [facility] [id number] [place] [address] 73068- 3488 Feb, [facility] [id number] [place] [address] 55663- 9647 Feb, Low back pain M54.5 and Pain in thoracic spine M54.6 [facility] [id number] [place] [address] 28755- 4643 Jan, Panic attacks F41.0 ; Type 2 diabetes mellitus with hyperglycemia, without long-term current use of insulin E11.65 and Other chest pain R07.89 [facility] [address] [place] [address] 00857- 5976 Jan, [facility] [id number] [place] [address] 77940- 8537 Jan, Type 2 diabetes mellitus with hyperglycemia, without long- term current use of insulin E11.65 [facility] [address] [address]- 0044 Jan, Pain in thoracic spine M54.6 [facility] [id number] [place] [address] 06403- 1665 Jan, Type 2 diabetes mellitus with hyperglycemia, without long- term current use of insulin E11.65 and Elevated liver enzymes R74.8 [place] [id number] [place] [address] 80945- 4323 Jan, [place] [address] [id number] [place] [address] 13244- 8120 Dec, Tobacco use Z72.0 ; Prediabetes R73.09 ; Elevated liver enzymes R74.8 ; Elevated fasting glucose R73.01 ; Elevated ALT measurement R74.0 ; Pain in thoracic spine M54.6 ; Panic attacks F41.0 and Type 2 diabetes mellitus with hyperglycemia, without long-term current use of insulin E11.65 [facility] [id number] [place] [address] 08297 -6890 Jun, Abdominal pain, right upper quadrant R10.11 [place] [address] [id number] [place] [address] 93567- 7109 Jun, [facility] [address] [place] [address] 24504- 2865 Jun, [place] [address] [place] [id number] [place] [address] 58645- 1886 Jun, [place] [address] [place] [id number] [place] [address] 98635- 8527 May, Routine gynecological examination Z01.419 ; Encounter for Papanicolaou smear for cervical cancer screening Z12.4 ; Screening breast examination Z12.39 ; Vaginal discharge N89.8 and Candidal vaginitis B37.3 [facility] [address] [place] [address] 64148- 0774 May, [place] [address] [place] [address] 72958- 9377 May, Prediabetes R73.09 ; Elevated ALT measurement R74.0 ; Elevated fasting glucose R73.01 and Palpitations R00.2 [place] [address] [place] [id number] [place] [address] 47345- 5943 Feb, [place] [address] 27028- 2739 Feb, [place] [address] [place] [address] [id number] [place] [address] 15702- 9964 Feb, Generalized anxiety disorder F41.1 and Major depressive disorder, recurrent episode, moderate F33.1 [place] [address] [place] [address] [id number] [place] [address] 64447- 4562 Feb, Generalized anxiety disorder F41.1 ; Low back pain M54.5 and Insomnia G47.00 [place] [address] [place] [address] [id number] [place] [address] 41191- 2981 Jan, Elevated fasting glucose R73.01 and Elevated ALT measurement R74.[address] 65990- 3746 Jan, Generalized anxiety disorder F41.1 ; Low back pain M54.5 and Screening cholesterol level Z13.220 [place] [id number] [place] [address] 13160- 8852 Dec, Scoliosis M41.9 and Anxiety F41.9 [place] [address] [place] [address] [id number] [place] [address] 70174- 4950 Feb, [place] [address] 45789- 4141 Feb, [place] [address] [place] [address] [id number] [place] [address] 39126- 2083 Apr, [place] [address] [place] [address] [id number] [place] [address] 34628- 4723 March, [facility] [place] [facility] [address] [id number] [place] [address]- 3046 March, [facility] [place] [facility] [address] [id number] [place] [address]- 0468 March, [facility] [place] [facility] [address] [id number] [place] 1732 March, [facility] [place] [facility] [address] [id number] [place] [address]- 1887 March, [facility] [place] [facility] [address] [id number] [place] [address]- 2033 March, [facility] [place] [facility] [address] [id number] [place] [address]- 4159 March, [facility] [place] [facility] [address] [id number] [place] [address]- 4996 March, [facility] [place] [facility] [address] [id number] [place] [address]- 6351 Feb, [facility] [place] [facility] [address] [id number] [place] [address]- 4084 Feb, [facility] [place] [facility] [address] [id number] [place] [address]- 4844 Feb, [facility] [place] [facility] [address] [id number] [place] [address]- 0106 Feb, [facility] [place] [facility] [address] [id number] [place] [address]- 4575 Jan, [facility] [place] [facility] [address] [id number] [place] [address]- 8972 Jan, [facility] [place] [facility] [address] [id number] [place] [address]- 2402 Jan, [facility] [place] [facility] [address] [id number] [place] 3195 Jan, [facility] [place] [facility] [address] [id number] [place] [address]- 4201 Jan, [facility] [place] [facility] [address] [id number] [place] [address]- 8734 Jan, [facility] [place] [facility] [address] [id number] [place] [address]- 9085 Jan, [facility] [place] [facility] [address] [id number] [place] [address]- 2017 Dec, [facility] [place] [facility] [address] [id number] [place] [address]- 0068 Dec, [facility] [place] [facility] [address] [id number] [place] [address]- 5194 Dec, [facility] [place] [facility] [address] [id number] [place] [address]- 0745 Dec, [facility] [place] [facility] [address] [id number] [place] [address]- 5593 Dec, [facility] [place] [facility] [address] [id number] [place] [address]- 2865 Dec, [facility] [place] [facility] [address] [id number] [place] [address]- 4253 Nov, [facility] [place] [facility] [address] [id number] [place] [address]- 2044 Nov, [facility] [place] [facility] [address] [id number] [place] [address]- 7667 Nov, [facility] [place] [facility] [address] [id number] [place] [address]- 1257 Nov, [facility] [place] [facility] [address] [id number] [place] [address]- 7133 Nov, [facility] [place] [facility] [address] [id number] [place] [address]- 3563 Nov, [facility] [place] [facility] [address] [id number] [place] [address]- 4685 Nov, [facility] [address] [id number] [place] [address]- 9634 Oct, [facility] [place] [facility] [address] [id number] [place] [address]- 0025 Oct, [facility] [place] [facility] [address] [id number] [place] [address]- 8213 Oct, [facility] [place] [facility] [address] [id number] [place] [address]- 9803 Oct, [facility] [place] [facility] [address] [id number] [place] [address]- 8376 Sep, [facility] [place] [facility] [address] [id number] [place] [address]- 9551 Sep, [facility] [place] [facility] [address] [id number] [place] [address]- 1043 Sep, [facility] [place] [facility] [address] [id number], [place] [address]- 1015 Sep, [facility] [place] [facility] [address] [id number] [place] [address]- 3095 Sep, [facility] [place] [facility] [address] [id number], [place] [address]- 2255 Sep, [facility] [place] [facility] [address] [id number], [place] [address]- 8330 Aug, [facility] [place] [facility] [address] [id number], [place] [address]- 8443 Aug, [facility] [place] [facility] [address] [id number], [place] [address]- 7542 Aug, [facility] [place] [facility] [address] [id number], [place] [address]- 0875 Aug, [facility] [place] [facility] [address] [facility] [id number] [address]- 0950 Aug, [facility] [place] [facility] [address] [id number], [place] [address]- 3775 Aug, [facility] [address] [id number] [place] [address]- 2758 Aug, [facility] [place] [facility] [address] [id number] [place] [address]- 5061 Jul, [facility] [address] [id number] [place] [address]- 2798 Jul, [facility] [address] [id number] [place] [address]- 9151 Jun, [facility] [address] [id number] [place] [address]- 2391 May, [facility] [address] [id number] [place] [address]- 0432 May, [facility] [address] [id number] [place] [address]- 6301 May, [facility] [address] [id number] [place] [address]- 4509 Apr, [facility] [address] [id number] [place] [address]- 3091 Apr, [facility] [address] [id number] [place] [address]- 7856 Apr, [facility] [address] [id number] [place] [address]- 5795 March, [facility] [place] [facility] [address] [id number] [place] [address]- 6338 March, [facility] [place] [facility] [address] [id number] [place] [address]- 0588 March, [facility] [place] [facility] [address] [id number] [place] [address]- 5339 Feb, [facility] [place] [facility] [address] [id number] [place] [address]- 5595 Feb, [facility] [place] [facility] [address] [id number] [place] [address]- 4894 15 Feb, 2013 [facility] [address] [id number] [place] [address]- 5670 28 Jan, 2013 [facility] [place] [facility] [address] [id number] [place] [address]- 4409 19 Jan, 2013 [facility] [place] [facility] [address] [id number] [place] [address]- 9237 18 Jan, 2013 [facility] [place] [facility] [address] [id number] [place] [address]- 7819 15 Jan, 2013 [facility] [place] [facility] [address] [id number] [place] [address]- 2351 14 Jan, 2013 [facility] [place] [facility] [address] [id number] [place] [address] 12 Jan, 2013 [facility] [place] [facility] [address] [id number] [place] [address] 05 Jan, 2013 [facility] [place] [facility] [address] [id number] [place] [address] 28 Dec, 2012 [facility] [place] [facility] [address] [id number] [place] [address] 18 Dec, 2012 [facility] [place] [facility] [address] [id number] [place] [address] 15 Dec, 2012 [facility] [place] [facility] [address] [id number] [place] [address] 14 Dec, 2012 [facility] [place] [facility] [address] [id number] [place] [address] 05 Dec, 2012 [facility] [place] [facility] [address] [id number] [place] [address]26 29 Nov, 2012 [facility] [place] [facility] [address] [id number] [place] [address] 17 Nov, 2012 [facility] [place] [facility] [address] [id number] [place] [address] Nov, [facility] [place] [facility] [address] [id number] [place] [address] Nov, [facility] [place] [facility] [address] [id number] [place] [address] Oct, [facility] [place] [facility] [address] [id number] [place] [address]106 Oct, [facility] [place] [facility] [address] [id number] [place] [address] Oct, [facility] [place] [facility] [address] [id number] [place] [address] Oct, [facility] [place] [facility] [address] [id number] [place] [address] Oct, [facility] [place] [facility] [address] [id number] [place] [address] Oct, [facility] [place] [facility] [address] [id number] [place] [address] Oct, [facility] [place] [facility] [address] [id number] [place] [address] 1331 Oct, [facility] [place] [facility] [address] [id number] [place] [address] Oct, [facility] [place] [facility] [address] [id number] [place] [address] Sep, [facility] [place] [facility] [address] [id number] [place] [address] 16 Sep, 2012 [facility] [place] [facility] [address] [id number] [place] [address] Sep, [facility] [place] [facility] [address] [id number] [place] [address] Sep, [facility] [place] [facility] [address] [id number] [place] [address] Sep, [facility] [place] [facility] [address] [id number] [place] [address] Aug, 2011 [facility] [place] [facility] [address] [id number] [place] [address] Aug, 2011 [facility] [place] [facility] [address] [id number] [place] [address] 2876 17 Aug, 2011 [facility] [place] [facility] [address] [id number] [place] [address] 17 Aug, 2011 [facility] [place] [facility] [address] [id number] [place] [address] 16 Aug, 2012 [facility] [place] [facility] [address] [id number] [place] [address] Aug, [facility] [place] [facility] [address] [id number] [place] [address] Aug, [facility] [place] [facility] [address] [id number] [place] [address] 8[address] 10 Aug, 2012 [facility] [place] [facility] [address] [id number] [place] [address] 10 Aug, 2012 [facility] [place] [facility] [address] [id number] [place] [address] 1094 09 Aug, 2012 [facility] [place] [facility] [address] [id number] [place] [address]- [address]357 05 Aug, 2012 [facility] [place] [facility] [address] [id number] [place] [address] 04 Aug, 2012 [facility] [place] [facility] [address] [id number] [place] [address] 17 Sep, 2011 [facility] [place] [facility] [address] [id number] [place] [address]- 7769 13 Sep, 2011 [facility] [place] [facility] [address] [id number] [place] [address] 13 Sep, 2011 [facility] [place] [facility] [address] [id number] [place] [address] 11 Jul, 2012 [facility] [place] [facility] [address] [id number] [place] [address] 2431 10 Jul, 2012 [facility] [place] [facility] [address] [id number] [place] [address] 08 Jul, 2012 [facility] [place] [facility] [address] [id number] [place] [address] 16 Jun, 2012 [facility] [place] [facility] [address] [id number] [place] [address] 14 Jun, 2012 [facility] [place] [facility] [address] [id number] [place] [address] 17 May, 2012 [facility] [place] [facility] [address] [id number] [place] [address] 17 May, 2012 [facility] [place] [facility] [address] [id number] [place] [address] 13 May, 2012 [facility] [place] [facility] [address] [id number] [place] [address] May, [facility] [place] [facility] [address] [id number] [place] [address] Apr, [facility] [place] [facility] [address] [id number] [place] [address] Apr, [facility] [place] [facility] [address] [id number] [place] [address] Apr, [facility] [place] [facility] [address] [id number] [place] [address] Apr, [facility] [place] [facility] [address] [id number] [place] [address] Apr, [facility] [place] [facility] [address] [id number] [place] [address] March, [facility] [place] [facility] [address] [id number] [place] [address] March, [facility] [place] [facility] [address] [id number], [place] [address] March, [facility] [address] [id number] [place] [address] March, [facility] [address] [id number] [place] [address] March, [facility] [address] [facility]NOTE 3] [id number] [place] [address] Feb, [facility] [place] [facility] [address] [id number] [place] [address] Feb, [facility] [address] [id number] [place] [address] Jan, [facility] [place] [facility] [address] [id number] [place] [address] Jan, [facility] [id number] [place] [address] Jan, [facility] [place] [facility] [address] [id number] [place] [address] Dec, [facility] [id number] [place] [address] Nov, [facility] [address] [id number] [address] Nov, [facility] [address] [id number] [place] [address] Nov, [facility] [place] [facility] [address] [id number] [place] [address] Nov, [facility] [place] [facility] [address] [id number] [place] [address] Oct, [facility] [place] [facility] [address] [facility]NOTE 3] [id number] [place] [address] Oct, [facility] [place] [facility] [address] [id number] [place] [address] Sep, [facility] [place] [facility] [address] [id number] [place] [address] 18 Sep, 2011 [facility] [place] [facility] [address] [id number] [place] [address]- [address] 10 Sep, 2011 [facility] [place] [facility] [address] [id number] [place] [address] 10 Sep, 2011 [facility] [place] [facility] [address] [id number] [place] [address] 08 Sep, 2011 [facility] [place] [facility] [address] [id number] [place] [address] 16 Jun, 2011 [facility] [place] [facility] [address] [id number] [place] [address] 15 Dec, 2010 [facility] [place] [facility] [address] [id number] [place] [address]- [address] Sep, [facility] [place] [facility] [address] [id number] [place] [address] Aug, [facility] [place] [facility] [address] [id number] [place] [address] Aug, [facility] [place] [facility] [address] [id number] [place] [address] Aug, [facility] [place] [facility] [address] [id number] [place] [address] Aug, [facility] [place] [facility] [address] [id number] [place] [address] Aug, [facility] [place] [facility] [address] [id number] [place] [address]- [address]48 17 Jun, 2010 [facility] [place] [facility] [address] [id number] [place] [address] 13 Feb, 2010 [facility] [place] [facility] [address] [id number] [place] [address] 06 Sep, 2009 [facility] [place] [facility] [address] [id number] [place] [address] Aug, [facility] [address] [facility][NOTE 3] [id number] [place] [address] Apr, [facility] [address] [facility][NOTE 3] [id number] [place] [address] March, IMMUNIZATIONS No Known Immunizations SOCIAL HISTORY [...]
--- OUTSIDE RECORDS SUMMARY | 2019-02-03 10:53 | XMS REPORT ---
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 Name Role Phone PHILLIP PULIDOHANY Unavailable PROBLEMS Type Condition ICD9-CM Code XAI49-ZP Code Onset Dates Condition Status SNOMED Code Problem Lumbago with sciatica, right side M54.41 Active 513436558 Problem Tension headache G44.209 Active 639309687 Problem Other chronic pain G89.29 Active 50073619 Problem COPD with exacerbation J44.1 Active 731796142 Problem Fibromyalgia M79.7 Active 634782617 Problem Peripheral polyneuropathy G62.9 Active 38330079 Problem Chest pain, unspecified type R07.9 Active 08013449 Problem Retinitis pigmentosa H35.52 Active 99309901 Problem Cervical disc disorder at C5-C6 level with radiculopathy M50.122 Active 586825957 Problem Carpal tunnel syndrome of left wrist G56.02 Active [id number] Problem Anxiety state, unspecified F41.1 Active 271616682 Problem Low back pain M54.5 Active 390304684 Problem Major depressive disorder, recurrent episode, moderate F33.1 Active 837401535 Problem Calculus of gallbladder without cholecystitis without obstruction K80.20 Active 735862241 Problem Generalized anxiety disorder F41.1 Active 85132001 Problem Panic attacks F41.0 Active 277162764 Problem Type 2 diabetes mellitus with hyperglycemia, without long-term current use of insulin E11.65 Active 62954121 Problem Insomnia G47.00 Active 744581579 Problem 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 Active 62519984 Problem Tobacco use Z72.0 Active 402948768 Problem Mixed hyperlipidemia E78.2 Active 753327304 ALLERGIES Substance Reaction Event Type Date Status Sulfamethoxazole-Trimethoprim Unknown Drug Allergy May, Active Codeine Sulfate Unknown Drug Allergy May, Active ENCOUNTERS Encounter Location Date Diagnosis [facility] [address] [address] Jun, Cervical disc disorder at C5-C6 level with radiculopathy M50.122 [facility] [id number] [place] [address] 12596- 2125 Jun, [facility] [id number] [place] [address] 82409- 2978 Jun, Pneumonia of right lung due to infectious organism, unspecified part of lung J18.9 [facility] [id number] [place] [address] 40342- 5081 May, [facility] [id number] [place] [address] 21826- 9977 May, Cough R05 [place] [id number] [place] [address] 00186- 9341 May, [facility] [id number] [place] [address] 30380- 1341 May, COPD with exacerbation J44.1 [facility] [id number] [place] [address] 14083- 5112 May, Type 2 diabetes mellitus with hyperglycemia, without long- term current use of insulin E11.65 ; Peripheral polyneuropathy G62.9 ; Cough R05 and COPD with exacerbation J44.1 [place] [id number] [place] [address] 98836- 7657 May, [facility] [id number] [place] [address] 07261- 9020 May, COPD with exacerbation J44.1 and Tobacco abuse counseling Z71.6 [facility] [id number] [place] [address] 48723- 2019 May, [facility] [id number] [place] [address] 95883- 2844 May, [facility] [id number] [place] [address] 48305 -2592 May, Numbness of left hand R20.0 and Carpal tunnel syndrome of left wrist G56.02 [place] [id number] [place] [address] 73747- 6962 May, [place] [id number] [place] [address] 67051- 7692 Apr, Type 2 diabetes mellitus with hyperglycemia, without long- term current use of insulin E11.65 [place] [address] 90691- 3891 March, Anxiety state, unspecified F41.[address] 46429- 2996 Feb, [place] [address] 38561- 1944 Feb, Medicare annual wellness visit, initial Z00.00 ; Type 2 diabetes mellitus with hyperglycemia, without long-term current use of insulin E11.65 ; Major depressive disorder, recurrent episode, moderate F33.1 ; Mixed hyperlipidemia E78.2 ; Fibromyalgia M79.7 ; Retinitis pigmentosa H35.52 ; Panic attacks F41.0 ; Facial skin lesion L98.9 ; Fullness of neck R22.1 and Screening for colon cancer Z12.11 [facility] [id number] [place] [address] 35018- 0642 Feb, Type 2 diabetes mellitus with hyperglycemia, without long- term current use of insulin E11.65 [facility] [facility] [id number] [place] [address] 81004- 3743 Jan, [place] [id number] [place] [address] 22682- 0152 Jan, Asymptomatic microscopic hematuria R31.21 ; Chest pain, unspecified type R07.9 and Generalized anxiety disorder F41.1 [place] [id number] [place] [address] 50489- 7905 Jan, [place] [address] 09777- 7658 Jan, [facility] [id number] [place] [address] 74111 -8854 Dec, [facility] [id number] [place] [address] 19833- 0263 Dec, [facility] [id number] [place] [address] 33835- 4041 Dec, [facility] [id number] [place] [address] 09717- 0736 Dec, [facility] [address] 24748- 5361 Dec, [facility] [id number] [place] [address] 77802- 5606 Dec, Tension headache G44.209 [facility] [address] 07505- 0708 Dec, Elevated LFTs R79.89 ; Type 2 diabetes mellitus with hyperglycemia, without long-term current use of insulin E11.65 ; Abdominal bloating R14.0 and Other fatigue R53.83 [place] [id number] [place] [address] 57383- 4274 Dec, Elevated ALT measurement R74.0 [place] [facility] [id number] [place] [address] 47991- 1487 Nov, Type 2 diabetes mellitus with hyperglycemia, without long- term current use of insulin E11.65 and Mixed hyperlipidemia E78.2 [place] [id number] [place] [address] 58010- 9520 Oct, [place] [address] 32820- 7383 Oct, Elevated ALT measurement R74.0 [place] [id number] [place] [address] 29801- 0304 Oct, [place] [address] 65991- 6475 Oct, [address] 39417- 9890 Oct, Breast cancer screening Z12.[address] 75110- 3330 Sep, Tension headache G44.209 ; Cervical disc disorder at C5-C6 level with radiculopathy M50.122 ; Other fatigue R53.83 ; Breast pain, left N64.4 ; Vertigo R42 and Abnormal tympanic membrane of left ear H73.92 [facility] [place] [address] [address] Sep, Screening breast examination Z12.[address] 24008- 7750 Sep, [address] 54560- 5497 Sep, Mixed hyperlipidemia E78.2 and Type 2 diabetes mellitus with hyperglycemia, without long-term current use of insulin E11.[address] 35756- 8040 Jul, [address] 86740- 0680 Jul, Lumbago with sciatica, right side M54.41 and Other chronic pain G89.[address] 49620- 2246 May, Type 2 diabetes mellitus with hyperglycemia, without long- term current use of insulin E11.65 ; Low back pain M54.5 ; Tobacco use Z72.0 ; Mixed hyperlipidemia E78.2 ; Lateral epicondylitis of right elbow M77.11 and 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 38154- 2940 Apr, [id number] [place] [address] 09750- 0975 Apr, Low back pain M54.5 [facility] [id number] [place] [address] 62984- 2468 Apr, Pain in thoracic spine M54.6 [facility] [id number] [place] [address] 73527 -1560 March, Lumbosacral neuritis M54.17 [facility] [id number] [place] [address] 83359- 1999 March, Low back pain M54.5 [facility] [id number] [place] [address] 40390- 0086 March, [facility] [id number] [place] [address] 11436- 3449 March, [facility] [id number] [place] [address] 25672- 4399 March, [facility] [id number] [place] [address] 70102- 8875 Feb, [facility] [id number] [place] [address] 35265- 2317 Feb, [facility] [id number] [place] [address] 27413- 1349 Feb, [facility] [id number] [place] [address] 17495- 9631 Feb, Low back pain M54.5 and Pain in thoracic spine M54.6 [facility] [id number] [place] [address] 45674- 3603 Jan, Panic attacks F41.0 ; Type 2 diabetes mellitus with hyperglycemia, without long-term current use of insulin E11.65 and Other chest pain R07.89 [facility] [address] [place] [address] 93580- 6647 Jan, [facility] [address] [place] [address] 19897- 1772 Jan, Type 2 diabetes mellitus with hyperglycemia, without long- term current use of insulin E11.65 [place] [id number] [place] [address] 85110- 4387 Jan, Pain in thoracic spine M54.6 [facility] [id number] [place] [address] 57752- 8492 Jan, Type 2 diabetes mellitus with hyperglycemia, without long- term current use of insulin E11.65 and Elevated liver enzymes R74.8 [place] [id number] [place] [address] 81716- 8234 Jan, [place] [id number] [place] [address] 37134- 8190 Dec, Tobacco use Z72.0 ; Prediabetes R73.09 ; Elevated liver enzymes R74.8 ; Elevated fasting glucose R73.01 ; Elevated ALT measurement R74.0 ; Pain in thoracic spine M54.6 ; Panic attacks F41.0 and Type 2 diabetes mellitus with hyperglycemia, without long-term current use of insulin E11.65 [facility] [address] [place] [address] 15467 -8899 Jun, Abdominal pain, right upper quadrant R10.11 [facility] [address] [place] [address] 47679- 4244 Jun, [facility] [id number] [place] [address] 30005- 6035 Jun, [place] [id number] [place] [address] 90740- 9040 Jun, [place] [id number] [place] [address] 47790- 6111 May, Routine gynecological examination Z01.419 ; Encounter for Papanicolaou smear for cervical cancer screening Z12.4 ; Screening breast examination Z12.39 ; Vaginal discharge N89.8 and Candidal vaginitis B37.3 [place] [id number] [place] [address] 90250- 0306 May, [place] [address] 41915- 1845 May, Prediabetes R73.09 ; Elevated ALT measurement R74.0 ; Elevated fasting glucose R73.01 and Palpitations R00.2 [place] [address] 65911- 7443 Feb, [place] [address] 66640- 8126 Feb, [place] [address] 68056- 9037 Feb, Generalized anxiety disorder F41.1 and Major depressive disorder, recurrent episode, moderate F33.[address] 28944- 9478 Feb, Generalized anxiety disorder F41.1 ; Low back pain M54.5 and Insomnia G47.00 [place] [address] 56029- 7982 Jan, Elevated fasting glucose R73.01 and Elevated ALT measurement R74.0 [place] [id number] [place] [address] 36528- 0981 Jan, Generalized anxiety disorder F41.1 ; Low back pain M54.5 and Screening cholesterol level Z13.220 [place] [id number] [place] [address] 73403- 7222 Dec, Scoliosis M41.9 and Anxiety F41.[address] 30145- 7518 Feb, [place] [address] 91816- 9856 Feb, [address] 63247- 3793 Apr, [facility] [place] [facility] [address] [id number] [place] [address]- 5774 March, [facility] [place] [facility] [address] [id number] [place] [address]- 4419 March, [facility] [place] [facility] [address] [id number] [place] 3187 March, [facility] [place] [facility] [address] [id number] [place] [address]- 2633 March, [facility] [place] [facility] [address] [id number] [place] [address]- 7157 March, [facility] [place] [facility] [address] [id number] [place] [address]- 5642 March, [facility] [place] [facility] [address] [id number] [place] [address]- 0458 March, [facility] [place] [facility] [address] [id number] [place] [address]- 7573 March, [facility] [place] [facility] [address] [id number] [place] [address]- 8994 Feb, [facility] [place] [facility] [address] [id number] [place] [address]- 3888 Feb, [facility] [place] [facility] [address] [id number] [place] [address]- 1283 Feb, [facility] [place] [facility] [address] [id number] [place] [address]- 3951 Feb, [facility] [place] [facility] [address] [id number] [place] [address]- 7131 Jan, [facility] [place] [facility] [address] [id number] [place] [address]- 3490 Jan, [facility] [place] [facility] [address] [id number] [place] 7441 Jan, [facility] [place] [facility] [address] [id number] [place] [address]- 2753 Jan, [facility] [place] [facility] [address] [id number] [place] [address]- 0427 Jan, [facility] [place] [facility] [address] [id number] [place] [address]- 4260 Jan, [facility] [place] [facility] [address] [id number] [place] [address]- 8149 Jan, [facility] [place] [facility] [address] [id number] [place] [address]- 5969 Dec, [facility] [place] [facility] [address] [id number] [place] [address]- 3769 Dec, [facility] [place] [facility] [address] [id number] [place] [address]- 4517 Dec, [facility] [place] [facility] [address] [id number] [place] [address]- 0188 Dec, [facility] [place] [facility] [address] [id number] [place] [address]- 5671 Dec, [facility] [place] [facility] [address] [id number] [place] [address]- 7473 Dec, [facility] [place] [facility] [address] [id number] [place] [address]- 9440 Nov, [facility] [place] [facility] [address] [id number] [place] [address]- 1922 Nov, [facility] [place] [facility] [address] [id number] [place] [address]- 0062 Nov, [facility] [place] [facility] [address] [id number] [place] [address]- 4077 Nov, [facility] [place] [facility] [address] [id number] [place] [address]- 9801 Nov, [facility] [place] [facility] [address] [id number] [place] [address]- 9631 Nov, [facility] [place] [facility] [address] [id number] [place] [address]- 6163 Nov, [facility] [place] [facility] [address] [id number] [place] [address]- 0257 Oct, [facility] [place] [facility] [address] [id number] [place] [address]- 2426 Oct, [facility] [place] [facility] [address] [id number] [place] [address]- 9945 Oct, [facility] [place] [facility] [address] [id number] [place] [address]- 8042 Oct, [facility] [place] [facility] [address] [id number] [place] [address]- 3792 Sep, [facility] [place] [facility] [address] [id number] [place] [address]- 6248 Sep, [facility] [place] [facility] [address] [id number], [place] [address]- 6024 Sep, [facility] [place] [facility] [address] [id number] [place] [address]- 1657 Sep, [facility] [place] [facility] [address] [id number], [place] [address]- 4679 Sep, [facility] [place] [facility] [address] [id number], [place] [address]- 6508 Sep, [facility] [place] [facility] [address] [id number], [place] [address]- 3112 Aug, [facility] [place] [facility] [address] [id number] [place] [address]- 8263 Aug, [facility] [place] [facility] [address] [id number], [place] [address]- 9912 Aug, [facility] [place] [facility] [address] [id number], [place] [address]- 6797 Aug, [facility] [place] [facility] [address] [id number], [place] [address]- 5761 Aug, [facility] [address] [id number] [place] [address]- 0372 Aug, [facility] [place] [facility] [address] [id number] [place] [address]- 8416 Aug, [facility] [address] [id number] [place] [address]- 2951 Jul, [facility] [place] [facility] [address] [id number] [place] [address]- 5976 Jul, [facility] [address] [id number] [place] [address]- 2625 Jun, [facility] [place] [facility] [address] [id number] [place] [address]- 4496 May, [facility] [address] [id number] [place] [address]- 7618 May, [facility] [place] [facility] [address] [id number] [place] [address]- 2581 May, [facility] [address] [id number] [place] [address]- 2901 Apr, [facility] [place] [facility] [address] [id number] [place] [address]- 4270 Apr, [facility] [place] [facility] [address] [id number], [place] [address]- 2155 Apr, [facility] [place] [facility] [address] [id number] [place] [address]- 4331 March, [facility] [place] [facility] [address] [id number] [place] [address]- 0634 March, [facility] [place] [facility] [address] [id number] [place] [address]- 9584 March, [facility] [place] [facility] [address] [id number] [place] [address]- 0741 Feb, [facility] [place] [facility] [address] [id number] [place] [address]- 6513 22 Feb, 2013 [facility] [address] [id number] [place] [address]- 9232 15 Feb, 2013 [facility] [place] [facility] [address] [id number] [place] [address]- 1636 28 Jan, 2013 [facility] [address] [id number] [place] [address]- 4729 19 Jan, 2013 [facility] [address] [id number] [place] [address]- 8807 18 Jan, 2013 [facility] [address] [id number] [place] [address]- 5453 15 Jan, 2013 [facility] [address] [facility] [id number] [place] [address]- 5453 14 Jan, 2013 [facility] [address] [id number] [place] [address]- 2595 12 Jan, 2013 [facility] [address] [id number] [place] [address]- 3516 05 Jan, 2013 [facility] [address] [id number] [place] [address]- 5653 28 Dec, 2012 [facility] [address] [facility] [id number] [place] [address]- 2333 18 Dec, 2012 [facility] [place] [facility] [address] [id number] [place] [address]- 4897 15 Dec, 2012 [facility] [address] [id number] [place] [address]- 7731 14 Dec, 2012 [facility] [place] [facility] [address] [id number] [place] [address]- 5495 05 Dec, 2012 [facility] [place] [facility] [address] [id number] [place] [address]- 1607 29 Nov, 2012 [facility] [place] [facility] [address] [id number] [place] [address]- 3426 Nov, [facility] [place] [facility] [address] [id number] [place] [address]- 8100 Nov, [facility] [place] [facility] [address] [id number] [place] [address]- 0905 Nov, [facility] [place] [facility] [address] [id number] [place] [address]- 8853 Oct, [facility] [place] [facility] [address] [id number] [place] [address]- 0030 Oct, [facility] [place] [facility] [address] [id number] [place] [address]- 4283 Oct, [facility] [place] [facility] [address] [id number] [place] [address]- 0310 Oct, [facility] [place] [facility] [address] [id number] [place] [address]- 8472 Oct, [facility] [place] [facility] [address] [id number] [place] [address] Oct, [facility] [place] [facility] [address] [id number] [place] [address] Oct, [facility] [place] [facility] [address] [id number] [place] [address] Oct, [facility] [place] [facility] [address] [id number] [place] [address] 06 Oct, 2012 [facility] [place] [facility] [address] [id number] [place] [address] 16 Sep, 2012 [facility] [place] [facility] [address] [id number] [place] [address] Sep, [facility] [place] [facility] [address] [id number] [place] [address] Sep, [facility] [place] [facility] [address] [id number] [place] [address] Sep, [facility] [place] [facility] [address] [id number] [place] [address] 08 Sep, 2012 [facility] [address] [id number] [place] [address] Aug, 2011 [facility] [place] [facility] [address] [id number] [place] [address] 25 Aug, 2012 [facility] [address] [id number] [place] [address] 17 Aug, 2012 [facility] [place] [facility] [address] [id number] [place] [address] 17 Aug, 2012 [facility] [address] [id number] [place] [address] 16 Aug, 2012 [facility] [place] [facility] [address] [id number] [place] [address] 11 Aug, 2012 [facility] [place] [facility] [address] [id number] [place] [address]- 113[address] 11 Aug, 2012 [facility] [place] [facility] [address] [id number] [place] [address] 10 Aug, 2012 [facility] [place] [facility] [address] [id number] [place] [address]- [address] 10 Aug, 2012 [facility] [place] [facility] [address] [facility] [id number] [place] [address] 09 Aug, 2012 [facility] [place] [facility] [address] [id number] [place] [address] 05 Aug, 2012 [facility] [place] [facility] [address] [id number] [place] [address] 04 Aug, 2012 [facility] [place] [facility] [address] [id number] [place] [address] 17 Jul, 2012 [facility] [place] [facility] [address] [id number] [place] [address]- [address] 13 Sep2011 [facility] [place] [facility] [address] [id number] [place] [address] 13 Jul, 2012 [facility] [place] [facility] [address] [id number] [place] [address] 11 Jul, 2012 [facility] [place] [facility] [address] [id number] [place] [address]- [address] 10 Jul, 2012 [facility] [place] [facility] [address] [id number] [place] [address] 08 Jul, 2012 [facility] [place] [facility] [address] [id number] [place] [address]797 16 Jun, 2012 [facility] [place] [facility] [address] [id number] [place] [address] 14 Jun, 2012 [facility] [place] [facility] [address] [id number] [place] [address] 17 May, 2012 [facility] [place] [facility] [address] [id number] [place] [address] 17 May, 2012 [facility] [place] [facility] [address] [id number] [place] [address] 13 May, 2012 [facility] [place] [facility] [address] [id number] [place] [address] May, [facility] [place] [facility] [address] [id number] [place] [place] [address] Apr, [facility] [place] [facility] [address] [id number] [place] [address] Apr, [facility] [place] [facility] [address] [id number], [place] [address] 18 Apr, 2012 [facility] [place] [facility] [address] [id number] [place] [address] Apr, [facility] [place] [facility] [address] [id number] [place] [address] Apr, [facility] [place] [facility] [address] [id number] [place] [address] March, [facility] [place] [facility] [address] [id number], [place] [address] March, [facility] [address] [id number] [place] [address] March, [facility] [address] [id number] [place] [address] March, [facility] [address] [id number] [place] [address] March, [facility] [address] [id number] [place] [address] Feb, [facility] [address] [id number] [place] [address] Feb, [facility] [address] [id number] [place] [address] Jan, [facility] [address] [id number] [place] [address] Jan, [facility] [place] [facility] [address] [id number] [place] [address] Jan, [facility] [address] [id number] [place] [address] Dec, [facility] [address] [id number] [place] [address] Nov, [facility] [address] [id number] [place] [address] Nov, [facility] [place] [facility] [address] [id number] [place] [address] Nov, [facility] [place] [facility] [address] [id number] [place] [address] Nov, [facility] [place] [facility] [address] [id number] [place] [address] Oct, [facility] [place] [facility] [address] [facility] [id number] [place] [address] Oct, [facility] [place] [facility] [address] [id number] [place] [address] 18 Sep, 2011 [facility] [place] [facility] [address] [id number] [place] [address] 18 Sep, 2011 [facility] [place] [facility] [address] [id number] [place] [address] 10 Sep, 2011 [facility] [place] [facility] [address] [id number] [place] [address] 10 Sep, 2011 [facility] [place] [facility] [address] [id number] [place] [address] 08 Sep, 2011 [facility] [place] [facility] [address] [id number] [place] [address] 16 Jun, 2011 [facility] [place] [facility] [address] [id number] [place] [address] 15 Dec, 2010 [facility] [place] [facility] [address] [id number] [place] [address] Sep, [facility] [place] [facility] [address] [id number] [place] [address] 29 Aug, 2010 [facility] [place] [facility] [address] [id number] [place] [address] Aug, [facility] [place] [facility] [address] [id number] [place] [address] Aug, [facility] [place] [facility] [address] [id number] [place] [address] Aug, [facility] [place] [facility] [address] [id number] [place] [address] Aug, [facility] [place] [facility] [address] [id number] [place] [address] 17 Jun, 2010 [facility] [place] [facility] [address] [id number] [place] [address] 13 Feb, 2010 [facility] [place] [facility] [address] [id number] [place] [address] Sep, [facility] [address] [facility] [id number] [place] [address] Aug, [facility] [address] [facility] [id number], [place] [address] Apr, [facility] [address] [facility] [id number], [place] [address] March, IMMUNIZATIONS No Known Immunizations SOCIAL HISTORY Never Assessed REASON FOR VISIT Arm Numbness f/u-AHarrymanRN PLAN OF CARE Activity Details Follow Up 4 Weeks Reason:Numbness/tingling VITAL SIGNS Height 61 in 2018-05-23 Weight 172.5 lbs 2018-05-23 Temperature 97.6 degrees Fahrenheit 2018-05-23 Heart Rate 78 bpm 2018-05-23 Respiratory Rate 20 2018-05-23 BMI 32.59 kg/m2 2018-05-23 Blood pressure systolic 112 mmHg 2018-05-23 Blood pressure diastolic 62 mmHg 2018-05-23 MEDICATIONS Medication Instructions Dosage Frequency Start Date End Date Duration Status Tessalon Perles 100 mg Orally Three times a day 1 capsule as needed 8h May, Jun, 10 days Active Blood Glucose Test - and Lancets ICD10- E11.65 2 times a day- 3 times weekly as directed Jan, Active Nebulizer/Tubing/Mouthpiece - Use as directed with Albuterol Sulfate Inhalation solution May, lifetime Active Naproxen 500 MG Orally Twice a day 1 tablet 12h Active Albuterol Sulfate (2.5 MG/3ML) 0.083% Inhalation every 6 hrs for COPD exacerbation 3 ml as needed May, Active Blood Glucose Monitor System w/Device ICD10- E11.65 2 times a day -3 times weekly. as directed Jan, Active Metformin HCl 1000 MG Orally Twice a day 1 tablet with a meal 12h 90 days Active Cyclobenzaprine HCl 10 MG Orally Three times a day 1 tablet as needed 8h Active Rosuvastatin Calcium 20 mg TAKE ONE TABLET BY MOUTH ONCE DAILY 30 Active Metoprolol Succinate ER 50 MG Orally Once a day 1 tablet 24h Active PredniSONE 20 MG Orally Once a day 1 tablet 24h Active RESULTS Name Result Date Reference Range A1C (IN HOUSE) 2018-05-23 A1C IN HOUSE 7.7 4.3 - 5.6 % Previous A1c 6.7 Lot [id number] Exp date 12/2019 PROCEDURES Procedure Date Ordered Result Body Site GLYCATED HEMOGLOBIN TEST May 23, 2018 INSTRUCTIONS MEDICATIONS ADMINISTERED No Known Medications MEDICAL (GENERAL) HISTORY Type Description Date Medical History Scoliosis Medical History Bipolar Surgical History right hip replacement Surgical History c-sections x4 Hospitalization History Pneumonia 2012
--- OUTSIDE RECORDS SUMMARY | 2019-02-03 10:54 | XMS REPORT ---
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 Name Role Phone ASHOKPHILLIP PRIDEHANY Unavailable PROBLEMS Type Condition ICD9-CM Code CTE80-DM Code Onset Dates Condition Status SNOMED Code Problem Lumbago with sciatica, right side M54.41 Active 472536917 Problem Tension headache G44.209 Active 262552743 Problem Other chronic pain G89.29 Active 67511160 Problem COPD with exacerbation J44.1 Active 204594846 Problem Fibromyalgia M79.7 Active 391298120 Problem Peripheral polyneuropathy G62.9 Active 36275028 Problem Chest pain, unspecified type R07.9 Active 42142162 Problem Retinitis pigmentosa H35.52 Active 13297192 Problem Cervical disc disorder at C5-C6 level with radiculopathy M50.122 Active 299330225 Problem Carpal tunnel syndrome of left wrist G56.02 Active 394373435019402 Problem Anxiety state, unspecified F41.1 Active 447096934 Problem Low back pain M54.5 Active 920683204 Problem Major depressive disorder, recurrent episode, moderate F33.1 Active 892864374 Problem Calculus of gallbladder without cholecystitis without obstruction K80.20 Active 803632733 Problem Generalized anxiety disorder F41.1 Active 54685329 Problem Panic attacks F41.0 Active 974267047 Problem Type 2 diabetes mellitus with hyperglycemia, without long-term current use of insulin E11.65 Active 07770351 Problem Insomnia G47.00 Active 352676570 Problem 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 Active 66370072 Problem Tobacco use Z72.0 Active 697936235 Problem Mixed hyperlipidemia E78.2 Active 932895595 ALLERGIES No Information ENCOUNTERS Encounter Location Date Diagnosis [facility] [address] [facility] [id number] [address] Jun, Cervical disc disorder at C5-C6 level with radiculopathy M50.122 [facility] [id number] [place] [address] 60357- 2854 Jun, [facility] [id number] [place] [address] 06064- 9325 Jun, Pneumonia of right lung due to infectious organism, unspecified part of lung J18.9 [facility] [address] [address]15- 4980 May, [facility] [id number] [place] [address] 96153- 3156 May, Cough R05 [place] [address] 47736- 6828 May, [place] [id number] [place] [address] 52267- 3030 May, COPD with exacerbation J44.1 [facility] [id number] [place] [address] 13010- 6366 May, Type 2 diabetes mellitus with hyperglycemia, without long- term current use of insulin E11.65 ; Peripheral polyneuropathy G62.9 ; Cough R05 and COPD with exacerbation J44.1 [facility] [id number] [place] [address] 90217- 1568 May, [facility] [id number] [place] [address] 64171- 0128 May, COPD with exacerbation J44.1 and Tobacco abuse counseling Z71.6 [facility] [id number] [place] [address] 62184- 1719 May, [facility] [id number] [place] [address] 44411- 0417 May, [facility] [id number] [place] [address] 64152 -6574 May, Numbness of left hand R20.0 and Carpal tunnel syndrome of left wrist G56.02 [place] [address] [place] [address] 79957- 0924 May, [place] [id number] [place] [address] 48194- 2970 Apr, Type 2 diabetes mellitus with hyperglycemia, without long- term current use of insulin E11.65 [place] [id number] [place] [address] 32590- 6740 March, Anxiety state, unspecified F41.1 [place] [id number] [place] [address] 50488- 9838 Feb, [place] [id number] [place] [address] 97695- 1116 Feb, Medicare annual wellness visit, initial Z00.00 ; Type 2 diabetes mellitus with hyperglycemia, without long-term current use of insulin E11.65 ; Major depressive disorder, recurrent episode, moderate F33.1 ; Mixed hyperlipidemia E78.2 ; Fibromyalgia M79.7 ; Retinitis pigmentosa H35.52 ; Panic attacks F41.0 ; Facial skin lesion L98.9 ; Fullness of neck R22.1 and Screening for colon cancer Z12.11 [place] [id number] [place] [address] 21370- 1048 Feb, Type 2 diabetes mellitus with hyperglycemia, without long- term current use of insulin E11.65 [place] [address] [place] [address] 53758- 0703 Jan, [place] [id number] [place] [address] 80249- 1099 Jan, Asymptomatic microscopic hematuria R31.21 ; Chest pain, unspecified type R07.9 and Generalized anxiety disorder F41.1 [place] [id number] [place] [address] 68123- 2830 Jan, [place] [id number] [place] [address] 30113- 9794 Jan, [facility] [address] [id number] [address] Dec, [facility] [id number] [place] [address] 13185- 2602 Dec, [facility] [id number] [place] [address] 07367- 1208 Dec, [facility] [id number] [place] [address] 13043- 6964 Dec, [facility] [id number] [place] [address] 95012- 1584 Dec, [facility] [id number] [place] [address] 74597- 0709 Dec, Tension headache G44.209 [facility] [id number] [place] [address] 18204- 3026 Dec, Elevated LFTs R79.89 ; Type 2 diabetes mellitus with hyperglycemia, without long-term current use of insulin E11.65 ; Abdominal bloating R14.0 and Other fatigue R53.83 [facility] [id number] [place] [address] 95946- 6443 Dec, Elevated ALT measurement R74.0 [facility] [address] [place] [address] 65226- 9565 Nov, Type 2 diabetes mellitus with hyperglycemia, without long- term current use of insulin E11.65 and Mixed hyperlipidemia E78.2 [facility] [id number] [place] [address] 62219- 2018 Oct, [facility] [id number] [place] [address] 46496- 4100 Oct, Elevated ALT measurement R74.0 [facility] [id number] [place] [address] 49291- 3972 Oct, [facility] [id number] [place] [address] 62679- 8612 Oct, [place] [id number] [place] [address] 96903- 1599 08 Oct, 2017 Breast cancer screening Z12.31 [place] [id number] [place] [address] 51733- 5816 Sep, Tension headache G44.209 ; Cervical disc disorder at C5-C6 level with radiculopathy M50.122 ; Other fatigue R53.83 ; Breast pain, left N64.4 ; Vertigo R42 and Abnormal tympanic membrane of left ear H73.92 [facility] [id number] [place] [address] 52883 -4544 24 Sep, 2017 Screening breast examination Z12.[address] 80747- 0943 Sep, [address] 67983- 7355 Sep, Mixed hyperlipidemia E78.2 and Type 2 diabetes mellitus with hyperglycemia, without long-term current use of insulin E11.65 [place] [id number] [place] [address] 71802- 3971 Jul, [address] 89172- 1007 Jul, Lumbago with sciatica, right side M54.41 and Other chronic pain G89.[address] 69820- 5823 May, Type 2 diabetes mellitus with hyperglycemia, without long- term current use of insulin E11.65 ; Low back pain M54.5 ; Tobacco use Z72.0 ; Mixed hyperlipidemia E78.2 ; Lateral epicondylitis of right elbow M77.11 and 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 [place] [id number] [place] [address] 58872- 1529 Apr, [address] 66688- 3678 Apr, Low back pain M54.5 [facility] [address] [address]- 5044 Apr, Pain in thoracic spine M54.6 [facility] [address] [place] [address] 11246 -5259 March, Lumbosacral neuritis M54.17 [facility] [id number] [place] [address] 85294- 1126 March, Low back pain M54.5 [facility] [id number] [place] [address] 45379- 9492 March, [facility] [id number] [place] [address] 79416- 6921 March, [facility] [id number] [place] [address] 80771- 7615 March, [facility] [id number] [place] [address] 93907- 9921 Feb, [facility] [id number] [place] [address] 32250- 6123 Feb, [facility] [id number] [place] [address] 13934- 6380 Feb, [facility] [id number] [place] [address] 39334- 9136 Feb, Low back pain M54.5 and Pain in thoracic spine M54.6 [facility] [address] [address]- 1718 Jan, Panic attacks F41.0 ; Type 2 diabetes mellitus with hyperglycemia, without long-term current use of insulin E11.65 and Other chest pain R07.89 [facility] [address] [address]- 4763 Jan, [facility] [address] [place] [address] 11363- 0365 Jan, Type 2 diabetes mellitus with hyperglycemia, without long- term current use of insulin E11.65 [place] [address] [place] [address] 46468- 4734 Jan, Pain in thoracic spine M54.6 [facility] [id number] [place] [address] 59809- 1535 Jan, Type 2 diabetes mellitus with hyperglycemia, without long- term current use of insulin E11.65 and Elevated liver enzymes R74.8 [place] [id number] [place] [address] 15080- 6504 Jan, [place] [id number] [place] [address] 48510- 8527 Dec, Tobacco use Z72.0 ; Prediabetes R73.09 ; Elevated liver enzymes R74.8 ; Elevated fasting glucose R73.01 ; Elevated ALT measurement R74.0 ; Pain in thoracic spine M54.6 ; Panic attacks F41.0 and Type 2 diabetes mellitus with hyperglycemia, without long-term current use of insulin E11.65 [facility] [id number] [place] [address] 44278 -4612 Jun, Abdominal pain, right upper quadrant R10.11 [place] [id number] [place] [address] 49999- 2979 Jun, [place] [id number] [place] [address] 18466- 0690 Jun, [place] [id number] [place] [address] 15912- 3911 Jun, [place] [id number] [place] [address] 12919- 1872 May, Routine gynecological examination Z01.419 ; Encounter for Papanicolaou smear for cervical cancer screening Z12.4 ; Screening breast examination Z12.39 ; Vaginal discharge N89.8 and Candidal vaginitis B37.3 [facility] [id number] [place] [address] 97567- 5824 May, [place] [id number] [place] [address] 89815- 9060 May, Prediabetes R73.09 ; Elevated ALT measurement R74.0 ; Elevated fasting glucose R73.01 and Palpitations R00.2 [place] [id number] [place] [address] 58438- 9939 Feb, [place] [address] 31798- 2038 Feb, [place] [address] 51309- 9019 Feb, Generalized anxiety disorder F41.1 and Major depressive disorder, recurrent episode, moderate F33.1 [place] [id number] [place] [address] 13833- 1319 Feb, Generalized anxiety disorder F41.1 ; Low back pain M54.5 and Insomnia G47.00 [place] [id number] [place] [address] 40599- 9096 Jan, Elevated fasting glucose R73.01 and Elevated ALT measurement R74.[address] 61190- 6610 Jan, Generalized anxiety disorder F41.1 ; Low back pain M54.5 and Screening cholesterol level Z13.220 [place] [id number] [place] [address] 50509- 6656 Dec, Scoliosis M41.9 and Anxiety F41.9 [place] [id number] [place] [address] 48243- 8338 Feb, [place] [address] 86715- 7652 Feb, [place] [id number] [place] [address] 12532- 5459 Apr, [place] [address] 88754- 1565 March, [facility] [place] [facility] [address] [id number] [place] [address]- 2930 March, [facility] [place] [facility] [address] [id number] [place] [address]- 9495 March, [facility] [place] [facility] [address] [id number] [place] 0813 March, [facility] [place] [facility] [address] [id number] [place] [address]- 3398 March, [facility] [place] [facility] [address] [id number] [place] [address]- 9284 March, [facility] [place] [facility] [address] [id number] [place] [address]- 9685 March, [facility] [place] [facility] [address] [id number] [place] [address]- 6264 March, [facility] [place] [facility] [address] [id number] [place] [address]- 2540 Feb, [facility] [place] [facility] [address] [id number] [place] [address]- 3218 Feb, [facility] [place] [facility] [address] [id number] [place] [address]- 3802 Feb, [facility] [place] [facility] [address] [id number] [place] [address]- 2775 Feb, [facility] [place] [facility] [address] [id number] [place] [address]- 0428 Jan, [facility] [place] [facility] [address] [id number] [place] [address]- 1924 Jan, [facility] [place] [facility] [address] [id number] [place] [address]- 4327 Jan, [facility] [place] [facility] [address] [id number] [place] [address]- 0415 Jan, [facility] [place] [facility] [address] [id number] [place] [address]- 9307 Jan, [facility] [place] [facility] [address] [id number] [place] [address]- 3797 Jan, [facility] [place] [facility] [address] [id number] [place] [address]- 3386 Jan, [facility] [place] [facility] [address] [id number] [place] [address]- 6536 Dec, [facility] [place] [facility] [address] [id number] [place] [address]- 6857 Dec, [facility] [place] [facility] [address] [id number] [place] [address]- 9612 Dec, [facility] [place] [facility] [address] [id number] [place] [address]- 5724 Dec, [facility] [place] [facility] [address] [id number] [place] [address]- 5724 Dec, [facility] [place] [facility] [address] [id number] [place] [address]- 7905 Dec, [facility] [place] [facility] [address] [id number] [place] [address]- 4652 Nov, [facility] [place] [facility] [address] [id number] [place] [address]- 7964 Nov, [facility] [place] [facility] [address] [id number] [place] [address]- 2614 Nov, [facility] [place] [facility] [address] [id number] [place] [address]- 5637 Nov, [facility] [place] [facility] [address] [id number] [place] [address]- 7810 Nov, [facility] [place] [facility] [address] [id number] [place] [address]- 3226 Nov, [facility] [place] [facility] [address] [id number] [place] [address]- 7363 Nov, [facility] [place] [facility] [address] [id number] [place] [address]- 1677 Oct, [facility] [place] [facility] [address] [id number] [place] [address]- 1719 Oct, [facility] [place] [facility] [address] [id number] [place] [address]- 6406 Oct, [facility] [place] [facility] [address] [id number] [place] [address]- 2771 Oct, [facility] [place] [facility] [address] [id number] [place] [address]- 9918 Sep, [facility] [place] [facility] [address] [id number] [place] [address]- 0602 Sep, [facility] [place] [facility] [address] [id number] [place] [address]- 0381 Sep, [facility] [place] [facility] [address] [id number], [place] [address]- 7989 Sep, [facility] [place] [facility] [address] [id number] [place] [address]- 9808 Sep, [facility] [place] [facility] [address] [id number], [place] [address]- 4717 Sep, [facility] [place] [facility] [address] [id number], [place] [address]- 7067 Aug, [facility] [place] [facility] [address] [id number], [place] [address]- 9405 Aug, [facility] [place] [facility] [address] [id number] [place] [address]- 8305 Aug, [facility] [place] [facility] [address] [id number], [place] [address]- 8443 Aug, [facility] [place] [facility] [address] [id number], [place] [address]- 2401 Aug, [facility] [place] [facility] [address] [id number] [place] [address]- 0998 07 Aug, 2013 [facility] [address] [id number] [place] [address]- 9195 02 Aug, 2013 [facility] [place] [facility] [address] [id number] [place] [address]- 9419 Jul, [facility] [address] [id number] [place] [address]- 6506 Jul, [facility] [place] [facility] [address] [id number] [place] [address]- 2607 Jun, [facility] [address] [id number] [place] [address]- 1577 May, [facility] [place] [facility] [address] [id number] [place] [address]- 7008 May, [facility] [address] [id number] [place] [address]- 1238 May, [facility] [address] [id number] [place] [address]- 8075 Apr, [facility] [address] [id number] [place] [address]- 0641 Apr, [facility] [address] [id number] [place] [address]- 1760 Apr, [facility] [address] [id number] [place] [address]- 0065 March, [facility] [place] [facility] [address] [id number] [place] [address]- 7072 March, [facility] [place] [facility] [address] [id number] [place] [address]- 1732 March, [facility] [place] [facility] [address] [id number] [place] [address]- 3123 Feb, [facility] [place] [facility] [address] [id number] [place] [address]- 4792 Feb, [facility] [place] [facility] [address] [id number] [place] [address]- 3033 15 Feb, 2013 [facility] [place] [facility] [address] [id number] [place] [address]- 3441 28 Jan, 2013 [facility] [place] [facility] [address] [id number] [place] [address]- 3048 19 Jan, 2013 [facility] [place] [facility] [address] [id number] [place] [address]- 4791 18 Jan, 2013 [facility] [place] [facility] [address] [id number] [place] [address]- 7494 15 Jan, 2013 [facility] [place] [facility] [address] [id number] [place] [address]- 8454 14 Jan, 2013 [facility] [address] [facility] [id number] [place] [address]- 6599 12 Jan, 2013 [facility] [place] [facility] [address] [id number] [place] [address]- 6074 05 Jan, 2013 [facility] [place] [facility] [address] [id number] [place] [address]- 0230 28 Dec, 2012 [facility] [place] [facility] [address] [id number] [place] [address]- 5060 18 Dec, 2012 [facility] [place] [facility] [address] [id number] [place] [address]- 0753 15 Dec, 2012 [facility] [place] [facility] [address] [id number], [place] [address]- 9325 14 Dec, 2012 [facility] [place] [facility] [address] [id number] [place] [address]- 1080 05 Dec, 2012 [facility] [place] [facility] [address] [id number] [place] [address]- 6406 29 Nov, 2012 [facility] [place] [facility] [address] [id number] [place] [address]- 3721 17 Nov, 2012 [facility] [place] [facility] [address] [id number] [address] Nov, [facility] [address] [id number] [place] [address] Nov, [facility] [place] [facility] [address] [id number] [place] [address] Oct, [facility] [place] [facility] [address] [id number] [place] [address] Oct, [facility] [place] [facility] [address] [id number] [place] [address] Oct, [facility] [place] [facility] [address] [id number] [place] [address] Oct, [facility] [place] [facility] [address] [id number] [place] [address] Oct, [facility] [place] [facility] [address] [id number] [place] [address] Oct, [facility] [place] [facility] [address] [id number] [place] [address] Oct, [facility] [place] [facility] [address] [id number] [place] [address] Oct, [facility] [place] [facility] [address] [facility] [id number] [place] [address] Oct, [facility] [place] [facility] [address] [id number] [place] [address] 16 Sep, 2012 [facility] [place] [facility] [address] [id number] [place] [address] 16 Sep, 2012 [facility] [place] [facility] [address] [id number] [place] [address] Sep, [facility] [place] [facility] [address] [id number] [place] [address] Sep, [facility] [place] [facility] [address] [facility] [id number] [place] [address] Sep, [facility] [place] [facility] [address] [id number] [place] [address] Aug, 2011 [facility] [place] [facility] [address] [id number] [place] [address] 25 Aug, 2011 [facility] [place] [facility] [address] [id number] [place] [address] 17 Aug, 2011 [facility] [place] [facility] [address] [id number] [place] [address] 17 Aug, 2011 [facility] [place] [facility] [address] [id number] [place] [address]34 16 Aug, 2011 [facility] [place] [facility] [address] [id number] [place] [address] 89[address] Aug, [facility] [place] [facility] [address] [id number] [place] [address] Aug, [facility] [place] [facility] [address] [id number] [place] [address] 10 Aug, 2012 [facility] [place] [facility] [address] [id number] [place] [address] 115[address] 10 Aug, 2012 [facility] [place] [facility] [address] [id number] [place] [address] 09 Aug, 2012 [facility] [place] [facility] [address] [id number] [place] [address] 05 Aug, 2012 [facility] [place] [facility] [address] [id number] [place] [address] 04 Aug, 2012 [facility] [place] [facility] [address] [id number] [place] [address] 9437 17 Sep, 2011 [facility] [place] [facility] [address] [id number] [place] [address] 9706 13 Sep, 2011 [facility] [place] [facility] [address] [id number] [place] [address] 13 Sep, 2011 [facility] [place] [facility] [address] [id number] [place] [address] 11 Jul, 2012 [facility] [place] [facility] [address] [id number] [place] [address] 10 Jul, 2012 [facility] [place] [facility] [address] [id number] [place] [address] 08 Jul, 2012 [facility] [place] [facility] [address] [id number] [place] [address] 6514 16 Jun, 2012 [facility] [place] [facility] [address] [id number] [place] [address] 14 Jun, 2012 [facility] [place] [facility] [address] [id number] [place] [address] 17 May, 2012 [facility] [place] [facility] [address] [id number] [place] [address] 17 May, 2012 [facility] [place] [facility] [address] [id number] [place] [address] 13 May, 2012 [facility] [place] [facility] [address] [id number] [place] [address] May, [facility] [place] [facility] [address] [id number] [place] [address] Apr, [facility] [place] [facility] [address] [id number] [place] [address] Apr, [facility] [place] [facility] [address] [id number] [place] [address]- [address] Apr, [facility] [place] [facility] [address] [id number] [place] [address] Apr, [facility] [place] [facility] [address] [id number] [place] [address] Apr, [facility] [place] [facility] [address] [id number] [place] [address] March, [facility] [place] [facility] [address] [id number] [place] [address] March, [facility] [place] [facility] [address] [id number] [place] [address] March, [facility] [address] [id number] [place] [address] March, [facility] [place] [facility] [address] [id number] [place] [address] 2011 March, [facility] [address] [id number] [place] [address] Feb, [facility] [place] [facility] [address] [id number] [place] [address] Feb, [facility] [place] [facility] [address] [id number] [place] [address] Jan, [facility] [place] [facility] [address] [id number] [place] [address] Jan, [facility] [address] [id number] [place] [address] Jan, [facility] [place] [facility] [address] [id number] [place] [address] Dec, [facility] [place] [facility] [address] [id number] [place] [address] Nov, [facility] [place] [facility] [address] [id number] [place] [address] Nov, [facility] [place] [facility] [address] [id number] [place] [address] Nov, [facility] [place] [facility] [address] [id number] [place] [address] Nov, [facility] [place] [facility] [address] [id number] [place] [address] Oct, [facility] [place] [facility] [address] [id number] [place] [address] Oct, [facility] [place] [facility] [address] [id number] [place] [address] Sep, [facility] [place] [facility] [address] [id number] [place] [address] 18 Sep, 2011 [facility] [place] [facility] [address] [id number] [place] [address] Sep, [facility] [place] [facility] [address] [id number] [place] [address] 10 Sep, 2011 [facility] [place] [facility] [address] [id number] [place] [address] 08 Sep, 2011 [facility] [place] [facility] [address] [id number] [place] [address] 16 Jun, 2011 [facility] [place] [facility] [address] [id number] [place] [address] 15 Dec, 2010 [facility] [place] [facility] [address] [id number] [place] [address] Sep, [facility] [place] [facility] [address] [id number] [place] [address] Aug, [facility] [place] [facility] [address] [id number] [place] [address] Aug, [facility] [place] [facility] [address] [id number] [place] [address] Aug, [facility] [place] [facility] [address] [id number] [place] [address] Aug, [facility] [place] [facility] [address] [id number] [place] [address] Aug, [facility] [place] [facility] [address] [id number] [place] [address] Jun, [facility] [place] [facility] [address] [id number] [place] [address] 13 Feb, 2010 [facility] [place] [facility] [address] [id number] [place] [address] 06 Sep, 2009 [facility] [place] [facility] [address] [id number] [place] [address] Aug, [facility] [address] [facility] [id number] [place] [address] Apr, [facility] [address] [facility] [id number] [address] March, IMMUNIZATIONS No Known Immunizations SOCIAL HISTORY [...]
[2019-02-03 10:55] VITALS: BP 98/86
--- OUTSIDE RECORDS SUMMARY | 2019-02-03 10:55 | XMS REPORT ---
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 Name Role Phone TIAGO SINGHISTIN Unavailable PROBLEMS Type Condition ICD9-CM Code LZY33-HD Code Onset Dates Condition Status SNOMED Code Problem Lumbago with sciatica, right side M54.41 Active 326057910 Problem Tension headache G44.209 Active 447255443 Problem Other chronic pain G89.29 Active 10810629 Problem COPD with exacerbation J44.1 Active 377960094 Problem Fibromyalgia M79.7 Active 817692772 Problem Peripheral polyneuropathy G62.9 Active 60471161 Problem Chest pain, unspecified type R07.9 Active 03839793 Problem Retinitis pigmentosa H35.52 Active 63527899 Problem Cervical disc disorder at C5-C6 level with radiculopathy M50.122 Active 593831884 Problem Carpal tunnel syndrome of left wrist G56.02 Active 257628538318732 Problem Anxiety state, unspecified F41.1 Active 780971661 Problem Low back pain M54.5 Active 350477920 Problem Major depressive disorder, recurrent episode, moderate F33.1 Active 642185778 Problem Calculus of gallbladder without cholecystitis without obstruction K80.20 Active 724806642 Problem Generalized anxiety disorder F41.1 Active 54796867 Problem Panic attacks F41.0 Active 508201748 Problem Type 2 diabetes mellitus with hyperglycemia, without long-term current use of insulin E11.65 Active 39770327 Problem Insomnia G47.00 Active 101905742 Problem 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 Active 80019175 Problem Tobacco use Z72.0 Active 356204083 Problem Mixed hyperlipidemia E78.2 Active 266134872 ALLERGIES Substance Reaction Event Type Date Status Sulfamethoxazole-Trimethoprim Unknown Drug Allergy May, Active Codeine Sulfate Unknown Drug Allergy May, Active ENCOUNTERS Encounter Location Date Diagnosis [facility] [address] [address] Jun, Cervical disc disorder at C5-C6 level with radiculopathy M50.122 [facility] [id number] [place] [address] 17555- 0141 Jun, [facility] [id number] [place] [address] 73023- 7357 Jun, Pneumonia of right lung due to infectious organism, unspecified part of lung J18.9 [facility] [id number] [place] [address] 65559- 8790 May, [facility] [id number] [place] [address] 27741- 7113 May, Cough R05 [place] [id number] [place] [address] 74691- 4472 May, [facility] [id number] [place] [address] 33972- 5007 May, COPD with exacerbation J44.1 [facility] [id number] [place] [address] 51568- 7466 May, Type 2 diabetes mellitus with hyperglycemia, without long- term current use of insulin E11.65 ; Peripheral polyneuropathy G62.9 ; Cough R05 and COPD with exacerbation J44.1 [place] [id number] [place] [address] 34642- 7420 May, [facility] [id number] [place] [address] 26111- 1084 May, COPD with exacerbation J44.1 and Tobacco abuse counseling Z71.6 [facility] [id number] [place] [address] 87703- 1974 May, [facility] [id number] [place] [address] 13001- 9442 May, [facility] [id number] [place] [address] 65634 -8910 May, Numbness of left hand R20.0 and Carpal tunnel syndrome of left wrist G56.02 [place] [id number] [place] [address] 37095- 0596 May, [facility] [id number] [place] [address] 64815- 9925 Apr, Type 2 diabetes mellitus with hyperglycemia, without long- term current use of insulin E11.65 [place] [address] 28985- 6773 March, Anxiety state, unspecified F41.[address] 64613- 5896 Feb, [place] [address] 60611- 5480 Feb, Medicare annual wellness visit, initial Z00.00 ; Type 2 diabetes mellitus with hyperglycemia, without long-term current use of insulin E11.65 ; Major depressive disorder, recurrent episode, moderate F33.1 ; Mixed hyperlipidemia E78.2 ; Fibromyalgia M79.7 ; Retinitis pigmentosa H35.52 ; Panic attacks F41.0 ; Facial skin lesion L98.9 ; Fullness of neck R22.1 and Screening for colon cancer Z12.11 [place] [id number] [place] [address] 74664- 2779 Feb, Type 2 diabetes mellitus with hyperglycemia, without long- term current use of insulin E11.65 [facility] [facility] [id number] [place] [address] 22812- 5134 Jan, [facility] [id number] [place] [address] 74349- 8356 Jan, Asymptomatic microscopic hematuria R31.21 ; Chest pain, unspecified type R07.9 and Generalized anxiety disorder F41.1 [place] [id number] [place] [address] 91410- 1707 Jan, [place] [address] 47967- 7781 Jan, [facility] [id number] [place] [address] 62063 -2173 Dec, [facility] [id number] [place] [address] 76561- 3643 Dec, [facility] [id number] [place] [address] 81335- 1826 Dec, [facility] [id number] [place] [address] 49456- 4772 Dec, [facility] [address] 78426- 9827 Dec, [facility] [id number] [place] [address] 82069- 2273 Dec, Tension headache G44.209 [facility] [address] 34516- 2980 Dec, Elevated LFTs R79.89 ; Type 2 diabetes mellitus with hyperglycemia, without long-term current use of insulin E11.65 ; Abdominal bloating R14.0 and Other fatigue R53.83 [place] [id number] [place] [address] 16751- 5151 Dec, Elevated ALT measurement R74.0 [facility] [id number] [place] [address] 32705- 6783 Nov, Type 2 diabetes mellitus with hyperglycemia, without long- term current use of insulin E11.65 and Mixed hyperlipidemia E78.2 [place] [id number] [place] [address] 53572- 7236 Oct, [place] [address] 10272- 3742 Oct, Elevated ALT measurement R74.0 [place] [id number] [place] [address] 46315- 7324 Oct, [place] [address] 59011- 1019 Oct, [address] 89160- 3690 Oct, Breast cancer screening Z12.[address] 23422- 1719 Sep, Tension headache G44.209 ; Cervical disc disorder at C5-C6 level with radiculopathy M50.122 ; Other fatigue R53.83 ; Breast pain, left N64.4 ; Vertigo R42 and Abnormal tympanic membrane of left ear H73.92 [facility] [place] [address] [address]68 -6741 Sep, Screening breast examination Z12.[address] 85908- 8122 Sep, [address] 96342- 7910 Sep, Mixed hyperlipidemia E78.2 and Type 2 diabetes mellitus with hyperglycemia, without long-term current use of insulin E11.[address] 12768- 7123 Jul, [address] 22821- 4257 Jul, Lumbago with sciatica, right side M54.41 and Other chronic pain G89.[address] 72037- 2866 May, Type 2 diabetes mellitus with hyperglycemia, without long- term current use of insulin E11.65 ; Low back pain M54.5 ; Tobacco use Z72.0 ; Mixed hyperlipidemia E78.2 ; Lateral epicondylitis of right elbow M77.11 and 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 79202- 4484 Apr, [address] [place] [id number] [place] [address] 00987- 4140 Apr, Low back pain M54.5 [facility] [id number] [place] [address] 63837- 4891 Apr, Pain in thoracic spine M54.6 [facility] [id number] [place] [address] 70472 -4264 March, Lumbosacral neuritis M54.17 [facility] [id number] [place] [address] 51063- 0602 March, Low back pain M54.5 [facility] [id number] [place] [address] 29503- 0043 March, [facility] [id number] [place] [address] 60137- 0226 March, [facility] [id number] [place] [address] 71193- 2114 March, [facility] [id number] [place] [address] 61285- 4272 Feb, [facility] [id number] [place] [address] 33056- 1707 Feb, [facility] [id number] [place] [address] 37358- 4694 Feb, [facility] [id number] [place] [address] 91204- 6888 Feb, Low back pain M54.5 and Pain in thoracic spine M54.6 [facility] [id number] [place] [address] 04230- 9792 Jan, Panic attacks F41.0 ; Type 2 diabetes mellitus with hyperglycemia, without long-term current use of insulin E11.65 and Other chest pain R07.89 [facility] [id number] [place] [address] 85887- 2559 Jan, [facility] [id number] [place] [address] 91487- 3115 Jan, Type 2 diabetes mellitus with hyperglycemia, without long- term current use of insulin E11.65 [place] [id number] [place] [address] 81851- 1776 Jan, Pain in thoracic spine M54.6 [facility] [id number] [place] [address] 46470- 4218 Jan, Type 2 diabetes mellitus with hyperglycemia, without long- term current use of insulin E11.65 and Elevated liver enzymes R74.8 [place] [id number] [place] [address] 38333- 5846 Jan, [place] [id number] [place] [address] 34223- 3860 Dec, Tobacco use Z72.0 ; Prediabetes R73.09 ; Elevated liver enzymes R74.8 ; Elevated fasting glucose R73.01 ; Elevated ALT measurement R74.0 ; Pain in thoracic spine M54.6 ; Panic attacks F41.0 and Type 2 diabetes mellitus with hyperglycemia, without long-term current use of insulin E11.65 [facility] [address] [place] [address] 55762 -0197 Jun, Abdominal pain, right upper quadrant R10.11 [facility] [address] [place] [address] 02521- 9392 Jun, [facility] [id number] [place] [address] 78110- 4372 Jun, [place] [id number] [place] [address] 07807- 1235 Jun, [place] [id number] [place] [address] 98645- 1225 May, Routine gynecological examination Z01.419 ; Encounter for Papanicolaou smear for cervical cancer screening Z12.4 ; Screening breast examination Z12.39 ; Vaginal discharge N89.8 and Candidal vaginitis B37.3 [place] [id number] [place] [address] 24856- 9649 May, [place] [address] 74504- 4024 May, Prediabetes R73.09 ; Elevated ALT measurement R74.0 ; Elevated fasting glucose R73.01 and Palpitations R00.2 [place] [address] 31060- 8259 Feb, [place] [address] 29668- 4016 Feb, [place] [address] 45389- 6659 Feb, Generalized anxiety disorder F41.1 and Major depressive disorder, recurrent episode, moderate F33.[address] 43332- 1520 Feb, Generalized anxiety disorder F41.1 ; Low back pain M54.5 and Insomnia G47.00 [place] [address] 83694- 4633 Jan, Elevated fasting glucose R73.01 and Elevated ALT measurement R74.0 [place] [id number] [place] [address] 76619- 5642 Jan, Generalized anxiety disorder F41.1 ; Low back pain M54.5 and Screening cholesterol level Z13.220 [place] [id number] [place] [address] 20919- 4464 Dec, Scoliosis M41.9 and Anxiety F41.[address] 50627- 0685 Feb, [place] [address] 85812- 4161 Feb, [address] 10284- 7996 Apr, [facility] [place] [facility] [address] [id number] [place] [address]- 2879 March, [facility] [place] [facility] [address] [id number] [place] [address]- 7615 March, [facility] [place] [facility] [address] [id number] [place]83 March, [facility] [place] [facility] [address] [id number] [place] [address]- 1516 March, [facility] [place] [facility] [address] [id number] [place] [address]- 7291 March, [facility] [place] [facility] [address] [id number] [place] [address]- 7024 March, [facility] [place] [facility] [address] [id number] [place] [address]- 4708 March, [facility] [place] [facility] [address] [id number] [place] [address]- 2922 March, [facility] [place] [facility] [address] [id number] [place] [address]- 6107 Feb, [facility] [place] [facility] [address] [id number] [place] [address]- 3878 Feb, [facility] [place] [facility] [address] [id number] [place] [address]- 6295 Feb, [facility] [place] [facility] [address] [id number] [place] [address]- 4131 Feb, [facility] [place] [facility] [address] [id number] [place] [address]- 8119 Jan, [facility] [place] [facility] [address] [id number] [place] [address]- 5410 Jan, [facility] [place] [facility] [address] [id number] [place] 2622 Jan, [facility] [place] [facility] [address] [id number] [place] [address]- 4086 Jan, [facility] [place] [facility] [address] [id number] [place] [address]- 4134 Jan, [facility] [place] [facility] [address] [id number] [place] [address]- 5454 Jan, [facility] [place] [facility] [address] [id number] [place] [address]- 7786 Jan, [facility] [place] [facility] [address] [id number] [place] [address]- 8857 Dec, [facility] [place] [facility] [address] [id number] [place] [address]- 9252 Dec, [facility] [place] [facility] [address] [id number] [place] [address]- 0327 Dec, [facility] [place] [facility] [address] [id number] [place] [address]- 0366 Dec, [facility] [place] [facility] [address] [id number] [place] [address]- 4822 Dec, [facility] [place] [facility] [address] [id number] [place] [address]- 8950 Dec, [facility] [place] [facility] [address] [id number] [place] [address]- 3102 Nov, [facility] [place] [facility] [address] [id number] [place] [address]- 8841 Nov, [facility] [place] [facility] [address] [id number] [place] [address]- 4472 Nov, [facility] [place] [facility] [address] [id number] [place] [address]- 9767 Nov, [facility] [place] [facility] [address] [id number] [place] [address]- 1355 Nov, [facility] [place] [facility] [address] [id number] [place] [address]- 5171 Nov, [facility] [place] [facility] [address] [id number] [place] [address]- 2175 Nov, [facility] [place] [facility] [address] [id number] [place] [address]- 3783 Oct, [facility] [place] [facility] [address] [id number] [place] [address]- 5515 Oct, [facility] [place] [facility] [address] [id number] [place] [address]- 0089 Oct, [facility] [place] [facility] [address] [id number] [place] [address]- 4938 Oct, [facility] [place] [facility] [address] [id number] [place] [address]- 1150 Sep, [facility] [place] [facility] [address] [id number] [place] [address]- 6034 Sep, [facility] [place] [facility] [address] [id number] [address]- 9522 Sep, [facility] [place] [facility] [address] [id number] [place] [address]- 4904 Sep, [facility] [place] [facility] [address] [id number], [place] [address]- 8344 Sep, [facility] [place] [facility] [address] [id number], [place] [address]- 4206 Sep, [facility] [place] [facility] [address] [id number], [place] [address]- 1905 Aug, [facility] [place] [facility] [address] [id number] [place] [address]- 8807 Aug, [facility] [place] [facility] [address] [id number], [place] [address]- 2190 Aug, [facility] [place] [facility] [address] [id number], [place] [address]- 8949 Aug, [facility] [place] [facility] [address] [id number], [place] [address]- 4246 Aug, [facility] [address] [id number] [place] [address]- 3433 Aug, [facility] [place] [facility] [address] [id number] [place] [address]- 2336 Aug, [facility] [address] [id number] [place] [address]- 4168 Jul, [facility] [place] [facility] [address] [id number] [place] [address]- 0521 Jul, [facility] [address] [id number] [place] [address]- 8610 Jun, [facility] [place] [facility] [address] [id number] [place] [address]- 5038 May, [facility] [address] [id number] [place] [address]- 9579 May, [facility] [place] [facility] [address] [id number] [place] [address]- 4286 May, [facility] [address] [id number] [place] [address]- 4919 Apr, [facility] [place] [facility] [address] [id number] [place] [address]- 4868 Apr, [facility] [place] [facility] [address] [id number], [place] [address]- 8741 Apr, [facility] [place] [facility] [address] [id number] [place] [address]- 3578 March, [facility] [place] [facility] [address] [id number] [place] [address]- 2449 March, [facility] [place] [facility] [address] [id number] [place] [address]- 7805 March, [facility] [place] [facility] [address] [id number] [place] [address]- 9854 Feb, [facility] [place] [facility] [address] [id number] [place] [address]- 2181 22 Feb, 2013 [facility] [address] [id number] [place] [address]- 9868 15 Feb, 2013 [facility] [place] [facility] [address] [id number] [place] [address]- 2516 28 Jan, 2013 [facility] [address] [id number] [place] [address]- 7525 19 Jan, 2013 [facility] [address] [id number] [place] [address]- 3263 18 Jan, 2013 [facility] [address] [id number] [place] [address]- 1618 15 Jan, 2013 [facility] [address] [facility] [id number] [place] [address]- 5170 14 Jan, 2013 [facility] [address] [id number] [place] [address]- 6752 12 Jan, 2013 [facility] [address] [id number] [place] [address]- 3758 05 Jan, 2013 [facility] [address] [id number] [place] [address]- 2537 28 Dec, 2012 [facility] [address] [facility] [id number] [place] [address]- 6139 18 Dec, 2012 [facility] [place] [facility] [address] [id number] [place] [address]- 2026 15 Dec, 2012 [facility] [address] [id number] [place] [address]- 9340 14 Dec, 2012 [facility] [place] [facility] [address] [id number] [place] [address]- 4505 05 Dec, 2012 [facility] [place] [facility] [address] [id number] [place] [address]- 5187 29 Nov, 2012 [facility] [place] [facility] [address] [id number] [place] [address]- 3976 Nov, [facility] [place] [facility] [address] [id number] [place] [address]- 3253 Nov, [facility] [place] [facility] [address] [id number] [place] [address]- 2570 Nov, [facility] [place] [facility] [address] [id number] [place] [address]- 8708 Oct, [facility] [place] [facility] [address] [id number] [place] [address]- 6054 Oct, [facility] [place] [facility] [address] [id number] [place] [address]- 9847 Oct, [facility] [place] [facility] [address] [id number] [place] [address]- 7424 Oct, [facility] [place] [facility] [address] [id number] [place] [address]- 0888 Oct, [facility] [place] [facility] [address] [id number] [place] [address]- 6070 Oct, [facility] [place] [facility] [address] [id number] [place] [address]- 2902 Oct, [facility] [place] [facility] [address] [id number] [place] [address]- 5937 Oct, [facility] [place] [facility] [address] [id number] [place] [address] 06 Oct, 2012 [facility] [place] [facility] [address] [id number] [place] [address] 16 Sep, 2012 [facility] [place] [facility] [address] [id number] [place] [address] Sep, [facility] [place] [facility] [address] [id number] [place] [address] Sep, [facility] [place] [facility] [address] [id number] [place] [address] Sep, [facility] [place] [facility] [address] [id number] [place] [address] 08 Sep, 2012 [facility] [address] [id number] [place] [address] Aug, 2011 [facility] [place] [facility] [address] [id number] [place] [address] 25 Aug, 2012 [facility] [address] [id number] [place] [address] 17 Aug, 2012 [facility] [place] [facility] [address] [id number] [place] [address] 17 Aug, 2012 [facility] [address] [id number] [place] [address] 16 Aug, 2012 [facility] [place] [facility] [address] [id number] [place] [address] 11 Aug, 2012 [facility] [place] [facility] [address] [id number] [place] [address] 11 Aug, 2012 [facility] [place] [facility] [address] [id number] [place] [address] 10 Aug, 2012 [facility] [place] [facility] [address] [id number] [place] [address] 10 Aug, 2012 [facility] [place] [facility] [address] [facility] [id number] [place] [address] 09 Aug, 2012 [facility] [place] [facility] [address] [id number] [place] [address] 05 Aug, 2012 [facility] [place] [facility] [address] [id number] [place] [address] 04 Aug, 2012 [facility] [place] [facility] [address] [id number] [place] [address] 17 Jul, 2012 [facility] [place] [facility] [address] [id number] [place] [address] 13 Sep2011 [facility] [place] [facility] [address] [id number] [place] [address] 13 Jul, 2012 [facility] [place] [facility] [address] [id number] [place] [address] 11 Jul, 2012 [facility] [place] [facility] [address] [id number] [place] [address]- 14[address] 10 Jul, 2012 [facility] [place] [facility] [address] [id number] [place] [address] 08 Jul, 2012 [facility] [place] [facility] [address] [id number] [place] [address]- [address] 16 Jun, 2012 [facility] [place] [facility] [address] [id number] [place] [address] 14 Jun, 2012 [facility] [place] [facility] [address] [id number] [place] [address] 17 May, 2012 [facility] [place] [facility] [address] [id number] [place] [address] 17 May, 2012 [facility] [place] [facility] [address] [id number] [place] [address] 13 May, 2012 [facility] [place] [facility] [address] [id number] [place] [address] May, [facility] [place] [facility] [address] [id number] [place] [address] Apr, [facility] [place] [facility] [address] [id number] [place] [address] Apr, [facility] [place] [facility] [address] [id number] [address] 18 Apr, 2012 [facility] [place] [facility] [address] [id number] [place] [address] Apr, [facility] [place] [facility] [address] [id number] [place] [address] Apr, [facility] [place] [facility] [address] [id number] [place] [address] March, [facility] [place] [facility] [address] [id number], [place] [address] March, [facility] [address] [id number] [place] [address] March, [facility] [address] [id number] [place] [address] March, [facility] [facility] [address] [id number] [place] [address] March, [facility] [address] [id number] [place] [address] Feb, [facility] [address] [id number] [place] [address] Feb, [facility] [address] [id number] [place] [address] Jan, [facility] [address] [id number] [place] [address] Jan, [facility] [place] [facility] [address] [id number] [place] [address] Jan, [facility] [address] [id number] [place] [address] Dec, [facility] [address] [id number] [place] [address] Nov, [facility] [address] [id number] [place] [address] Nov, [facility] [place] [facility] [address] [id number] [place] [address] Nov, [facility] [place] [facility] [address] [id number] [place] [address] Nov, [facility] [place] [facility] [address] [id number] [place] [address] Oct, [facility] [place] [facility] [address] [facility] [id number] [place] [address] Oct, [facility] [place] [facility] [address] [id number] [place] [address] 18 Sep, 2011 [facility] [place] [facility] [address] [id number] [place] [address] 18 Sep, 2011 [facility] [place] [facility] [address] [id number] [place] [address] 10 Sep, 2011 [facility] [place] [facility] [address] [id number] [place] [address] 10 Sep, 2011 [facility] [place] [facility] [address] [id number] [place] [address] 08 Sep, 2011 [facility] [place] [facility] [address] [id number] [place] [address] 16 Jun, 2011 [facility] [place] [facility] [address] [id number] [place] [address] 15 Dec, 2010 [facility] [place] [facility] [address] [id number] [place] [address] Sep, [facility] [place] [facility] [address] [id number] [place] [address] 29 Aug, 2010 [facility] [place] [facility] [address] [id number] [place] [address] Aug, [facility] [place] [facility] [address] [id number] [place] [address] Aug, [facility] [place] [facility] [address] [id number] [place] [address] Aug, [facility] [place] [facility] [address] [id number] [place] [address] Aug, [facility] [place] [facility] [address] [id number] [place] [address] 17 Jun, 2010 [facility] [place] [facility] [address] [id number] [place] [address] 13 Feb, 2010 [facility] [place] [facility] [address] [id number] [place] [address] Sep, [facility] [address] [facility] [id number] [place] [address] Aug, [facility] [address] [facility] [id number] [address] Apr, [facility] [address] [facility] [id number] [place] [address] March, IMMUNIZATIONS No Known Immunizations SOCIAL HISTORY Never Assessed REASON FOR VISIT numbness in lt arm and hand x 1 week/NKI.--STEVE Brown, PCP-Joey PLAN OF CARE Activity Details Follow Up prn Reason: VITAL SIGNS Height 61 in 2018-05-13 Weight 170.4 lbs 2018-05-13 Temperature 97.8 degrees Fahrenheit 2018-05-13 Heart Rate 100 bpm 2018-05-13 Respiratory Rate 20 2018-05-13 BMI 32.19 kg/m2 2018-05-13 Blood pressure systolic 98 mmHg 2018-05-13 Blood pressure diastolic 62 mmHg 2018-05-13 MEDICATIONS Medication Instructions Dosage Frequency Start Date End Date Duration Status Blood Glucose Test - and Lancets ICD10- E11.65 2 times a day- 3 times weekly as directed Jan, Active Rosuvastatin Calcium 20 mg TAKE ONE TABLET BY MOUTH ONCE DAILY 30 Active Naproxen 500 MG Orally every 12 hrs 1 tablet with food or milk as needed 12h May, May, 7 days Active PredniSONE 20 MG Orally Once a day 2 tablet 24h May, May, 5 days Active Metformin HCl 500 mg Orally Twice a day 1 tablet with meals 12h 30 days Active Blood Glucose Monitor System w/Device ICD10- E11.65 2 times a day -3 times weekly. as directed Jan, Active RESULTS No Results PROCEDURES No Known procedures INSTRUCTIONS MEDICATIONS ADMINISTERED No Known Medications MEDICAL (GENERAL) HISTORY Type Description Date Medical History Scoliosis Medical History Bipolar Surgical History right hip replacement Surgical History c-sections x4 Hospitalization History Pneumonia 2011
--- OUTSIDE RECORDS SUMMARY | 2019-02-03 10:55 | XMS REPORT ---
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 Name Role Phone PHILLIP PULIDOHANY Unavailable PROBLEMS Type Condition ICD9-CM Code FLP36-QC Code Onset Dates Condition Status SNOMED Code Problem Lumbago with sciatica, right side M54.41 Active 732190933 Problem Tension headache G44.209 Active 686101693 Problem Other chronic pain G89.29 Active 22493217 Problem COPD with exacerbation J44.1 Active 145600450 Problem Fibromyalgia M79.7 Active 779730866 Problem Peripheral polyneuropathy G62.9 Active 01677534 Problem Chest pain, unspecified type R07.9 Active 07140120 Problem Retinitis pigmentosa H35.52 Active 57819084 Problem Cervical disc disorder at C5-C6 level with radiculopathy M50.122 Active 915140532 Problem Carpal tunnel syndrome of left wrist G56.02 Active [id number] Problem Anxiety state, unspecified F41.1 Active 299004909 Problem Low back pain M54.5 Active 680711240 Problem Major depressive disorder, recurrent episode, moderate F33.1 Active 474932753 Problem Calculus of gallbladder without cholecystitis without obstruction K80.20 Active 010101184 Problem Generalized anxiety disorder F41.1 Active 93010572 Problem Panic attacks F41.0 Active 709002066 Problem Type 2 diabetes mellitus with hyperglycemia, without long-term current use of insulin E11.65 Active 77189979 Problem Insomnia G47.00 Active 926334804 Problem 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 Active 00833514 Problem Tobacco use Z72.0 Active 054786275 Problem Mixed hyperlipidemia E78.2 Active 560693016 ALLERGIES No Information ENCOUNTERS Encounter Location Date Diagnosis [facility] [address] [facility] [id number] [address] Jun, Cervical disc disorder at C5-C6 level with radiculopathy M50.122 [facility] [id number] [place] [address] 28492- 9429 Jun, [facility] [id number] [place] [address] 22963- 4650 Jun, Pneumonia of right lung due to infectious organism, unspecified part of lung J18.9 [facility] [address] 81518- 2344 May, [facility] [id number] [place] [address] 14528- 9987 May, Cough R05 [place] [address] 34285- 0293 May, [place] [id number] [place] [address] 56795- 8728 May, COPD with exacerbation J44.1 [facility] [id number] [place] [address] 50278- 3812 May, Type 2 diabetes mellitus with hyperglycemia, without long- term current use of insulin E11.65 ; Peripheral polyneuropathy G62.9 ; Cough R05 and COPD with exacerbation J44.1 [facility] [id number] [place] [address] 56216- 2685 May, [facility] [id number] [place] [address] 57117- 3760 May, COPD with exacerbation J44.1 and Tobacco abuse counseling Z71.6 [facility] [id number] [place] [address] 43983- 7558 May, [facility] [id number] [place] [address] 92629- 4259 May, [facility] [id number] [place] [address] 06909 -7331 May, Numbness of left hand R20.0 and Carpal tunnel syndrome of left wrist G56.02 [place] [id number] [place] [address] 61599- 9980 May, [place] [id number] [place] [address] 74037- 1603 Apr, Type 2 diabetes mellitus with hyperglycemia, without long- term current use of insulin E11.65 [place] [id number] [place] [address] 06596- 0127 March, Anxiety state, unspecified F41.1 [place] [id number] [place] [address] 24821- 8117 Feb, [place] [id number] [place] [address] 41878- 5429 Feb, Medicare annual wellness visit, initial Z00.00 ; Type 2 diabetes mellitus with hyperglycemia, without long-term current use of insulin E11.65 ; Major depressive disorder, recurrent episode, moderate F33.1 ; Mixed hyperlipidemia E78.2 ; Fibromyalgia M79.7 ; Retinitis pigmentosa H35.52 ; Panic attacks F41.0 ; Facial skin lesion L98.9 ; Fullness of neck R22.1 and Screening for colon cancer Z12.11 [place] [id number] [place] [address] 52379- 3627 Feb, Type 2 diabetes mellitus with hyperglycemia, without long- term current use of insulin E11.65 [place] [id number] [place] [address] 30036- 7100 Jan, [place] [id number] [place] [address] 64832- 2949 Jan, Asymptomatic microscopic hematuria R31.21 ; Chest pain, unspecified type R07.9 and Generalized anxiety disorder F41.1 [place] [id number] [place] [address] 49598- 8854 Jan, [place] [id number] [place] [address] 63795- 8818 Jan, [facility] [address] [id number] [address] Dec, [facility] [id number] [place] [address] 37269- 3263 Dec, [facility] [id number] [place] [address] 23432- 0695 Dec, [facility] [id number] [place] [address] 37587- 5014 Dec, [facility] [id number] [place] [address] 63407- 6175 Dec, [facility] [id number] [place] [address] 26031- 6814 Dec, Tension headache G44.209 [facility] [id number] [place] [address] 30413- 3860 Dec, Elevated LFTs R79.89 ; Type 2 diabetes mellitus with hyperglycemia, without long-term current use of insulin E11.65 ; Abdominal bloating R14.0 and Other fatigue R53.83 [facility] [id number] [place] [address] 39324- 6060 Dec, Elevated ALT measurement R74.0 [facility] [id number] [place] [address] 50671- 8818 Nov, Type 2 diabetes mellitus with hyperglycemia, without long- term current use of insulin E11.65 and Mixed hyperlipidemia E78.2 [facility] [id number] [place] [address] 66604- 1238 Oct, [facility] [id number] [place] [address] 86786- 7336 Oct, Elevated ALT measurement R74.0 [facility] [id number] [place] [address] 41079- 1987 Oct, [facility] [id number] [place] [address] 93776- 9642 Oct, [place] [id number] [place] [address] 91082- 0629 08 Oct, 2017 Breast cancer screening Z12.31 [place] [id number] [place] [address] 14606- 2768 Sep, Tension headache G44.209 ; Cervical disc disorder at C5-C6 level with radiculopathy M50.122 ; Other fatigue R53.83 ; Breast pain, left N64.4 ; Vertigo R42 and Abnormal tympanic membrane of left ear H73.92 [facility] [id number] [place] [address] 33830 -1896 24 Sep, 2017 Screening breast examination Z12.[address] 00128- 7209 Sep, [address] 84261- 0028 Sep, Mixed hyperlipidemia E78.2 and Type 2 diabetes mellitus with hyperglycemia, without long-term current use of insulin E11.65 [place] [id number] [place] [address] 12719- 4750 Jul, [address] 06359- 1672 Jul, Lumbago with sciatica, right side M54.41 and Other chronic pain G89.[address] 22203- 5236 May, Type 2 diabetes mellitus with hyperglycemia, without long- term current use of insulin E11.65 ; Low back pain M54.5 ; Tobacco use Z72.0 ; Mixed hyperlipidemia E78.2 ; Lateral epicondylitis of right elbow M77.11 and 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 [place] [id number] [place] [address] 13479- 9884 Apr, [address] 37746- 5940 Apr, Low back pain M54.5 [facility] [address] [address] 3717 Apr, Pain in thoracic spine M54.6 [facility] [id number] [place] [address] 58399 -7615 March, Lumbosacral neuritis M54.17 [facility] [id number] [place] [address] 81958- 8415 March, Low back pain M54.5 [facility] [id number] [place] [address] 29869- 9323 March, [facility] [id number] [place] [address] 97932- 2796 March, [facility] [id number] [place] [address] 33576- 1597 March, [facility] [id number] [place] [address] 04537- 0238 Feb, [facility] [id number] [place] [address] 02805- 3028 Feb, [facility] [id number] [place] [address] 69779- 2259 Feb, [facility] [id number] [place] [address] 85903- 0043 Feb, Low back pain M54.5 and Pain in thoracic spine M54.6 [facility] [address] [address]- 0996 Jan, Panic attacks F41.0 ; Type 2 diabetes mellitus with hyperglycemia, without long-term current use of insulin E11.65 and Other chest pain R07.89 [facility] [address] [address]- 3143 Jan, [facility] [id number] [place] [address] 69480- 0762 Jan, Type 2 diabetes mellitus with hyperglycemia, without long- term current use of insulin E11.65 [place] [id number] [place] [address] 01823- 8536 Jan, Pain in thoracic spine M54.6 [facility] [id number] [place] [address] 72113- 2134 Jan, Type 2 diabetes mellitus with hyperglycemia, without long- term current use of insulin E11.65 and Elevated liver enzymes R74.8 [place] [id number] [place] [address] 69260- 2817 Jan, [place] [id number] [place] [address] 97214- 8399 Dec, Tobacco use Z72.0 ; Prediabetes R73.09 ; Elevated liver enzymes R74.8 ; Elevated fasting glucose R73.01 ; Elevated ALT measurement R74.0 ; Pain in thoracic spine M54.6 ; Panic attacks F41.0 and Type 2 diabetes mellitus with hyperglycemia, without long-term current use of insulin E11.65 [facility] [id number] [place] [address] 50890 -9372 Jun, Abdominal pain, right upper quadrant R10.11 [place] [id number] [place] [address] 40947- 9619 Jun, [place] [id number] [place] [address] 35926- 3467 Jun, [place] [id number] [place] [address] 86565- 5988 Jun, [place] [id number] [place] [address] 48560- 5892 May, Routine gynecological examination Z01.419 ; Encounter for Papanicolaou smear for cervical cancer screening Z12.4 ; Screening breast examination Z12.39 ; Vaginal discharge N89.8 and Candidal vaginitis B37.3 [facility] [id number] [place] [address] 49505- 9648 May, [place] [id number] [place] [address] 46440- 1160 May, Prediabetes R73.09 ; Elevated ALT measurement R74.0 ; Elevated fasting glucose R73.01 and Palpitations R00.2 [place] [id number] [place] [address] 70674- 0551 Feb, [place] [address] 56522- 9002 Feb, [place] [address] 74438- 2424 Feb, Generalized anxiety disorder F41.1 and Major depressive disorder, recurrent episode, moderate F33.1 [place] [id number] [place] [address] 75809- 8920 Feb, Generalized anxiety disorder F41.1 ; Low back pain M54.5 and Insomnia G47.00 [place] [id number] [place] [address] 57009- 4620 Jan, Elevated fasting glucose R73.01 and Elevated ALT measurement R74.[address] 98749- 2742 Jan, Generalized anxiety disorder F41.1 ; Low back pain M54.5 and Screening cholesterol level Z13.220 [place] [id number] [place] [address] 06225- 4721 Dec, Scoliosis M41.9 and Anxiety F41.9 [place] [id number] [place] [address] 53338- 6497 Feb, [place] [address] 38500- 3923 Feb, [place] [id number] [place] [address] 19684- 6775 Apr, [place] [address] 29529- 1369 March, [facility] [place] [facility] [address] [id number] [place] [address]- 3151 March, [facility] [place] [facility] [address] [id number] [place] [address]- 6887 March, [facility] [place] [facility] [address] [id number] [place] 4150 March, [facility] [place] [facility] [address] [id number] [place] [address]- 1179 March, [facility] [place] [facility] [address] [id number] [place] [address]- 5437 March, [facility] [place] [facility] [address] [id number] [place] [address]- 4690 March, [facility] [place] [facility] [address] [id number] [place] [address]- 2787 March, [facility] [place] [facility] [address] [id number] [place] [address]- 1155 Feb, [facility] [place] [facility] [address] [id number] [place] [address]- 4405 Feb, [facility] [place] [facility] [address] [id number] [place] [address]- 7488 Feb, [facility] [place] [facility] [address] [id number] [place] [address]- 2111 Feb, [facility] [place] [facility] [address] [id number] [place] [address]- 8471 Jan, [facility] [place] [facility] [address] [id number] [place] [address]- 4896 Jan, [facility] [place] [facility] [address] [id number] [place] [address]- 1809 Jan, [facility] [place] [facility] [address] [id number] [place] [address]- 0060 Jan, [facility] [place] [facility] [address] [id number] [place] [address]- 6003 Jan, [facility] [place] [facility] [address] [id number] [place] [address]- 9038 Jan, [facility] [place] [facility] [address] [id number] [place] [address]- 7186 Jan, [facility] [place] [facility] [address] [id number] [place] [address]- 5219 Dec, [facility] [place] [facility] [address] [id number] [place] [address]- 3957 Dec, [facility] [place] [facility] [address] [id number] [place] [address]- 1506 Dec, [facility] [place] [facility] [address] [id number] [place] [address]- 6620 Dec, [facility] [place] [facility] [address] [id number] [place] [address]- 2403 Dec, [facility] [place] [facility] [address] [id number] [place] [address]- 9174 Dec, [facility] [place] [facility] [address] [id number] [place] [address]- 9481 Nov, [facility] [place] [facility] [address] [id number] [place] [address]- 8553 Nov, [facility] [place] [facility] [address] [id number] [place] [address]- 4452 Nov, [facility] [place] [facility] [address] [id number] [place] [address]- 2383 Nov, [facility] [place] [facility] [address] [id number] [place] [address]- 5482 Nov, [facility] [place] [facility] [address] [id number] [place] [address]- 7856 Nov, [facility] [place] [facility] [address] [id number] [place] [address]- 3140 Nov, [facility] [place] [facility] [address] [id number] [place] [address]- 1463 Oct, [facility] [place] [facility] [address] [id number] [place] [address]- 8643 Oct, [facility] [place] [facility] [address] [id number] [place] [address]- 5824 Oct, [facility] [place] [facility] [address] [id number] [place] [address]- 0750 Oct, [facility] [place] [facility] [address] [id number] [place] [address]- 2236 Sep, [facility] [place] [facility] [address] [id number] [place] [address]- 2831 Sep, [facility] [place] [facility] [address] [id number] [place] [address]- 9643 Sep, [facility] [place] [facility] [address] [id number] [place] [address]- 7562 Sep, [facility] [place] [facility] [address] [id number] [place] [address]- 6127 Sep, [facility] [place] [facility] [address] [id number] [place] [address]- 2337 Sep, [facility] [place] [facility] [address] [id number] [place] [address]- 7772 Aug, [facility] [place] [facility] [address] [id number] [place] [address]- 5259 Aug, [facility] [place] [facility] [address] [id number] [place] [address]- 9241 Aug, [facility] [place] [facility] [address] [id number] [place] [address]- 4620 Aug, [facility] [place] [facility] [address] [id number] [place] [address]- 7917 Aug, [facility] [place] [facility] [address] [id number] [place] [address]- 5450 07 Aug, 2013 [facility] [address] [id number] [place] [address]- 0687 02 Aug, 2013 [facility] [place] [facility] [address] [id number] [place] [address]- 3319 Jul, [facility] [address] [id number] [place] [address]- 6623 Jul, [facility] [place] [facility] [address] [id number] [place] [address]- 8173 Jun, [facility] [address] [id number] [place] [address]- 3193 May, [facility] [place] [facility] [address] [id number] [place] [address]- 2654 May, [facility] [address] [id number] [place] [address]- 7831 May, [facility] [address] [id number] [place] [address]- 7207 Apr, [facility] [address] [id number] [place] [address]- 6878 Apr, [facility] [address] [id number] [place] [address]- 2730 Apr, [facility] [address] [id number] [place] [address]- 4944 March, [facility] [place] [facility] [address] [id number] [place] [address]- 7071 March, [facility] [place] [facility] [address] [id number] [place] [address]- 9534 March, [facility] [place] [facility] [address] [id number] [place] [address]- 6862 Feb, [facility] [place] [facility] [address] [id number] [place] [address]- 5590 Feb, [facility] [place] [facility] [address] [id number] [place] [address]- 4246 15 Feb, 2013 [facility] [place] [facility] [address] [id number] [place] [address]- 3520 28 Jan, 2013 [facility] [place] [facility] [address] [id number] [place] [address]- 8113 19 Jan, 2013 [facility] [place] [facility] [address] [id number] [place] [address]- 8864 18 Jan, 2013 [facility] [place] [facility] [address] [id number] [place] [address]- 3430 15 Jan, 2013 [facility] [place] [facility] [address] [id number] [place] [address]- 2896 14 Jan, 2013 [facility] [address] [facility] [id number] [place] [address]- 9330 12 Jan, 2013 [facility] [place] [facility] [address] [id number] [place] [address]- 5955 05 Jan, 2013 [facility] [place] [facility] [address] [id number] [place] [address]- 3346 28 Dec, 2012 [facility] [place] [facility] [address] [id number] [place] [address]- 2959 18 Dec, 2012 [facility] [place] [facility] [address] [id number] [place] [address]- 1358 15 Dec, 2012 [facility] [place] [facility] [address] [id number] [place] [address]- 4973 14 Dec, 2012 [facility] [place] [facility] [address] [id number] [place] [address]- 3913 05 Dec, 2012 [facility] [place] [facility] [address] [id number] [place] [address]- 9076 29 Nov, 2012 [facility] [place] [facility] [address] [id number] [place] [address]- 6957 17 Nov, 2012 [facility] [place] [facility] [address] [id number] [place] [address]- 9359 Nov, [facility] [address] [id number] [place] [address]- 1638 Nov, [facility] [place] [facility] [address] [id number] [place] [address]- 5366 Oct, [facility] [place] [facility] [address] [id number] [place] [address]- 8906 Oct, [facility] [place] [facility] [address] [id number] [place] [address]- 1114 Oct, [facility] [place] [facility] [address] [id number] [place] [address]- 5438 Oct, [facility] [place] [facility] [address] [id number] [place] [address]- 6100 Oct, [facility] [place] [facility] [address] [id number] [place] [address]- 0321 Oct, [facility] [place] [facility] [address] [id number] [place] [address]- 4663 Oct, [facility] [place] [facility] [address] [id number] [place] [address] Oct, [facility] [place] [facility] [address] [facility] [id number] [place] [address] Oct, [facility] [place] [facility] [address] [id number] [place] [address] 16 Sep, 2012 [facility] [place] [facility] [address] [id number] [place] [address] 16 Sep, 2012 [facility] [place] [facility] [address] [id number] [place] [address] Sep, [facility] [place] [facility] [address] [id number] [place] [address] Sep, [facility] [place] [facility] [address] [facility] [id number] [place] [address] Sep, [facility] [place] [facility] [address] [id number] [place] [address] Aug, 2011 [facility] [place] [facility] [address] [id number] [place] [address] 25 Aug, 2011 [facility] [place] [facility] [address] [id number] [place] [address] 17 Aug, 2011 [facility] [place] [facility] [address] [id number] [place] [address] 17 Aug, 2011 [facility] [place] [facility] [address] [id number] [place] [address] 16 Aug, 2011 [facility] [place] [facility] [address] [id number] [place] [address] Aug, [facility] [place] [facility] [address] [id number] [place] [address] Aug, [facility] [place] [facility] [address] [id number] [place] [address] 10 Aug, 2012 [facility] [place] [facility] [address] [id number] [place] [address] 10 Aug, 2012 [facility] [place] [facility] [address] [id number] [place] [address]- [address] 09 Aug, 2012 [facility] [place] [facility] [address] [id number] [place] [address] 05 Aug, 2012 [facility] [place] [facility] [address] [id number] [place] [address] 04 Aug, 2012 [facility] [place] [facility] [address] [id number] [place] [address]- [address] 17 Sep, 2011 [facility] [place] [facility] [address] [id number] [place] [address]- [address] 13 Sep, 2011 [facility] [place] [facility] [address] [id number] [place] [address] 13 Sep, 2011 [facility] [place] [facility] [address] [id number] [place] [address]- [address] 11 Jul, 2012 [facility] [place] [facility] [address] [id number] [place] [address]- [address] 10 Jul, 2012 [facility] [place] [facility] [address] [id number] [place] [address]- [address] 08 Jul, 2012 [facility] [place] [facility] [address] [id number] [place] [address] 16 Jun, 2012 [facility] [place] [facility] [address] [id number] [place] [address] 14 Jun, 2012 [facility] [place] [facility] [address] [id number] [place] [address]- [address] 17 May, 2012 [facility] [place] [facility] [address] [id number] [place] [address] 17 May, 2012 [facility] [place] [facility] [address] [id number] [place] [address] 13 May, 2012 [facility] [place] [facility] [address] [id number] [place] [address] May, [facility] [place] [facility] [address] [id number] [place] [address] Apr, [facility] [place] [facility] [address] [id number] [place] [address] Apr, [facility] [place] [facility] [address] [id number] [place] [address] Apr, [facility] [place] [facility] [address] [id number] [place] [address] Apr, [facility] [place] [facility] [address] [id number] [place] [address] Apr, [facility] [place] [facility] [address] [id number] [place] [address] March, [facility] [place] [facility] [address] [id number] [place] [address] March, [facility] [place] [facility] [address] [id number] [place] [address] March, [facility] [address] [id number] [place] [address] March, [facility] [place] [facility] [address] [id number] [place] [address] March, [facility] [address] [id number] [place] [address] Feb, [facility] [place] [facility] [address] [id number] [place] [address] Feb, [facility] [place] [facility] [address] [id number] [place] [address] Jan, [facility] [place] [facility] [address] [id number] [place] [address] Jan, [facility] [address] [id number] [place] [address] Jan, [facility] [place] [facility] [address] [id number] [place] [address] Dec, [facility] [place] [facility] [address] [id number] [place] [address] Nov, [facility] [place] [facility] [address] [id number] [place] [address] Nov, [facility] [place] [facility] [address] [id number] [place] [address] Nov, [facility] [place] [facility] [address] [id number] [place] [address] Nov, [facility] [place] [facility] [address] [id number] [place] [address] Oct, [facility] [place] [facility] [address] [id number] [place] [address] Oct, [facility] [place] [facility] [address] [id number] [place] [address] Sep, [facility] [place] [facility] [address] [id number] [place] [address] 18 Sep, 2011 [facility] [place] [facility] [address] [id number] [place] [address] Sep, [facility] [place] [facility] [address] [id number] [place] [address] 10 Sep, 2011 [facility] [place] [facility] [address] [id number] [place] [address] 08 Sep, 2011 [facility] [place] [facility] [address] [id number] [place] [address] 16 Jun, 2011 [facility] [place] [facility] [address] [id number] [place] [address] 15 Dec, 2010 [facility] [place] [facility] [address] [id number] [place] [address] Sep, [facility] [place] [facility] [address] [id number] [place] [address] Aug, [facility] [place] [facility] [address] [id number] [place] [address] Aug, [facility] [place] [facility] [address] [id number] [place] [address] Aug, [facility] [place] [facility] [address] [id number] [place] [address] Aug, [facility] [place] [facility] [address] [id number] [place] [address] Aug, [facility] [place] [facility] [address] [id number] [place] [address] Jun, [facility] [place] [facility] [address] [id number] [place] [address] 13 Feb, 2010 [facility] [place] [facility] [address] [id number] [place] [address] 06 Sep, 2009 [facility] [place] [facility] [address] [id number] [place] [address] Aug, [facility] [address] [facility] [id number] [place] [address] Apr, [facility] [address] [facility] [id number] [place] [address] March, IMMUNIZATIONS No Known Immunizations SOCIAL HISTORY [...]
--- OUTSIDE RECORDS SUMMARY | 2019-02-03 10:56 | XMS REPORT ---
Author Author ASHOK ROMY Organization [facility] Address [address] [place] [address] Care Team Providers Care Pipe Stress Engineer Name Role Phone PHILLIP PULIDOHANY Unavailable PROBLEMS Type Condition ICD9-CM Code LTH54-JF Code Onset Dates Condition Status SNOMED Code Problem Lumbago with sciatica, right side M54.41 Active 351264368 Problem Tension headache G44.209 Active 509551826 Problem Other chronic pain G89.29 Active 68404898 Problem COPD with exacerbation J44.1 Active 719536064 Problem Fibromyalgia M79.7 Active 411807607 Problem Peripheral polyneuropathy G62.9 Active 83350432 Problem Chest pain, unspecified type R07.9 Active 15229576 Problem Retinitis pigmentosa H35.52 Active 63787511 Problem Cervical disc disorder at C5-C6 level with radiculopathy M50.122 Active 102154853 Problem Carpal tunnel syndrome of left wrist G56.02 Active 187998275185227 Problem Anxiety state, unspecified F41.1 Active 180672157 Problem Low back pain M54.5 Active 442740503 Problem Major depressive disorder, recurrent episode, moderate F33.1 Active 928591244 Problem Calculus of gallbladder without cholecystitis without obstruction K80.20 Active 321360506 Problem Generalized anxiety disorder F41.1 Active 67820527 Problem Panic attacks F41.0 Active 364009909 Problem Type 2 diabetes mellitus with hyperglycemia, without long-term current use of insulin E11.65 Active 71395763 Problem Insomnia G47.00 Active 165287177 Problem 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 Active 74658297 Problem Tobacco use Z72.0 Active 025080855 Problem Mixed hyperlipidemia E78.2 Active 322968298 ALLERGIES No Information ENCOUNTERS Encounter Location Date Diagnosis [facility] [address] [facility] [id number] [address] Jun, Cervical disc disorder at C5-C6 level with radiculopathy M50.122 [facility] [id number] [place] [address] 47247- 5103 Jun, [facility] [id number] [place] [address] 23764- 5049 Jun, Pneumonia of right lung due to infectious organism, unspecified part of lung J18.9 [facility] [address] 71021- 6878 May, [facility] [id number] [place] [address] 65784- 2874 May, Cough R05 [place] [address] 61161- 5825 May, [place] [id number] [place] [address] 45206- 1946 May, COPD with exacerbation J44.1 [facility] [id number] [place] [address] 55210- 3867 May, Type 2 diabetes mellitus with hyperglycemia, without long- term current use of insulin E11.65 ; Peripheral polyneuropathy G62.9 ; Cough R05 and COPD with exacerbation J44.1 [facility] [id number] [place] [address] 52748- 8951 May, [facility] [id number] [place] [address] 23873- 9063 May, COPD with exacerbation J44.1 and Tobacco abuse counseling Z71.6 [facility] [id number] [place] [address] 02159- 6718 May, [facility] [id number] [place] [address] 89890- 1997 May, [facility] [id number] [place] [address] 55463 -6930 May, Numbness of left hand R20.0 and Carpal tunnel syndrome of left wrist G56.02 [place] [id number] [place] [address] 16479- 7597 May, [place] [id number] [place] [address] 73721- 1878 Apr, Type 2 diabetes mellitus with hyperglycemia, without long- term current use of insulin E11.65 [facility] [id number] [place] [address] 30747- 2292 March, Anxiety state, unspecified F41.1 [place] [id number] [place] [address] 00210- 9669 Feb, [place] [id number] [place] [address] 66909- 3264 Feb, Medicare annual wellness visit, initial Z00.00 ; Type 2 diabetes mellitus with hyperglycemia, without long-term current use of insulin E11.65 ; Major depressive disorder, recurrent episode, moderate F33.1 ; Mixed hyperlipidemia E78.2 ; Fibromyalgia M79.7 ; Retinitis pigmentosa H35.52 ; Panic attacks F41.0 ; Facial skin lesion L98.9 ; Fullness of neck R22.1 and Screening for colon cancer Z12.11 [place] [id number] [place] [address] 94800- 3543 Feb, Type 2 diabetes mellitus with hyperglycemia, without long- term current use of insulin E11.65 [place] [id number] [place] [address] 68312- 1477 Jan, [place] [id number] [place] [address] 46459- 0034 Jan, Asymptomatic microscopic hematuria R31.21 ; Chest pain, unspecified type R07.9 and Generalized anxiety disorder F41.1 [place] [id number] [place] [address] 72787- 2753 Jan, [place] [id number] [place] [address] 81936- 0323 Jan, [facility] [address] [id number] [address] Dec, [facility] [id number] [place] [address] 11933- 7247 Dec, [facility] [id number] [place] [address] 62344- 8777 Dec, [facility] [id number] [place] [address] 28878- 8440 Dec, [facility] [id number] [place] [address] 01551- 9264 Dec, [facility] [id number] [place] [address] 62499- 0384 Dec, Tension headache G44.209 [facility] [id number] [place] [address] 00445- 2410 Dec, Elevated LFTs R79.89 ; Type 2 diabetes mellitus with hyperglycemia, without long-term current use of insulin E11.65 ; Abdominal bloating R14.0 and Other fatigue R53.83 [facility] [id number] [place] [address] 46366- 6114 Dec, Elevated ALT measurement R74.0 [facility] [id number] [place] [address] 01013- 1704 Nov, Type 2 diabetes mellitus with hyperglycemia, without long- term current use of insulin E11.65 and Mixed hyperlipidemia E78.2 [facility] [id number] [place] [address] 26284- 6939 Oct, [facility] [id number] [place] [address] 71881- 2144 Oct, Elevated ALT measurement R74.0 [facility] [id number] [place] [address] 67645- 1450 Oct, [facility] [id number] [place] [address] 66809- 6162 Oct, [place] [id number] [place] [address] 02570- 1833 08 Oct, 2017 Breast cancer screening Z12.31 [place] [id number] [place] [address] 06295- 6580 Sep, Tension headache G44.209 ; Cervical disc disorder at C5-C6 level with radiculopathy M50.122 ; Other fatigue R53.83 ; Breast pain, left N64.4 ; Vertigo R42 and Abnormal tympanic membrane of left ear H73.92 [facility] [id number] [place] [address] 04822 -9471 24 Sep, 2017 Screening breast examination Z12.[address] 41519- 9771 Sep, [address] 80772- 0293 Sep, Mixed hyperlipidemia E78.2 and Type 2 diabetes mellitus with hyperglycemia, without long-term current use of insulin E11.65 [place] [id number] [place] [address] 88741- 4528 Jul, [address] 96379- 2553 Jul, Lumbago with sciatica, right side M54.41 and Other chronic pain G89.[address] 53396- 5033 May, Type 2 diabetes mellitus with hyperglycemia, without long- term current use of insulin E11.65 ; Low back pain M54.5 ; Tobacco use Z72.0 ; Mixed hyperlipidemia E78.2 ; Lateral epicondylitis of right elbow M77.11 and 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 [place] [id number] [place] [address] 49234- 9808 Apr, [address] 20347- 3072 Apr, Low back pain M54.5 [facility] [address] [address]- 6066 Apr, Pain in thoracic spine M54.6 [facility] [id number] [place] [address] 50244 -8833 March, Lumbosacral neuritis M54.17 [facility] [id number] [place] [address] 54548- 1757 March, Low back pain M54.5 [facility] [id number] [place] [address] 27595- 9398 March, [facility] [id number] [place] [address] 50175- 7240 March, [facility] [id number] [place] [address] 69601- 9577 March, [facility] [id number] [place] [address] 77716- 7949 Feb, [facility] [id number] [place] [address] 37395- 3179 Feb, [facility] [id number] [place] [address] 29790- 0740 Feb, [facility] [id number] [place] [address] 79252- 4948 Feb, Low back pain M54.5 and Pain in thoracic spine M54.6 [facility] [address] [address]- 7609 Jan, Panic attacks F41.0 ; Type 2 diabetes mellitus with hyperglycemia, without long-term current use of insulin E11.65 and Other chest pain R07.89 [facility] [address] [address]- 0308 Jan, [facility] [address] [place] [address] 37431- 3572 Jan, Type 2 diabetes mellitus with hyperglycemia, without long- term current use of insulin E11.65 [place] [address] [place] [address] 44373- 3295 Jan, Pain in thoracic spine M54.6 [facility] [id number] [place] [address] 01857- 4552 Jan, Type 2 diabetes mellitus with hyperglycemia, without long- term current use of insulin E11.65 and Elevated liver enzymes R74.8 [place] [id number] [place] [address] 75174- 9368 Jan, [place] [id number] [place] [address] 22401- 6246 Dec, Tobacco use Z72.0 ; Prediabetes R73.09 ; Elevated liver enzymes R74.8 ; Elevated fasting glucose R73.01 ; Elevated ALT measurement R74.0 ; Pain in thoracic spine M54.6 ; Panic attacks F41.0 and Type 2 diabetes mellitus with hyperglycemia, without long-term current use of insulin E11.65 [facility] [id number] [place] [address] 65908 -7536 Jun, Abdominal pain, right upper quadrant R10.11 [place] [id number] [place] [address] 67448- 8107 Jun, [place] [id number] [place] [address] 87059- 4483 Jun, [place] [id number] [place] [address] 89725- 5984 Jun, [place] [id number] [place] [address] 67384- 8146 May, Routine gynecological examination Z01.419 ; Encounter for Papanicolaou smear for cervical cancer screening Z12.4 ; Screening breast examination Z12.39 ; Vaginal discharge N89.8 and Candidal vaginitis B37.3 [facility] [id number] [place] [address] 72331- 0504 May, [place] [id number] [place] [address] 78906- 4960 May, Prediabetes R73.09 ; Elevated ALT measurement R74.0 ; Elevated fasting glucose R73.01 and Palpitations R00.2 [place] [id number] [place] [address] 56417- 8309 Feb, [place] [address] 07984- 2661 Feb, [place] [address] 50611- 0824 Feb, Generalized anxiety disorder F41.1 and Major depressive disorder, recurrent episode, moderate F33.1 [place] [id number] [place] [address] 34823- 7424 Feb, Generalized anxiety disorder F41.1 ; Low back pain M54.5 and Insomnia G47.00 [place] [id number] [place] [address] 53609- 7670 Jan, Elevated fasting glucose R73.01 and Elevated ALT measurement R74.[address] 23460- 4062 Jan, Generalized anxiety disorder F41.1 ; Low back pain M54.5 and Screening cholesterol level Z13.220 [place] [id number] [place] [address] 99270- 7092 Dec, Scoliosis M41.9 and Anxiety F41.9 [place] [id number] [place] [address] 50384- 7817 Feb, [place] [address] 86608- 2673 Feb, [place] [id number] [place] [address] 47658- 9597 Apr, [place] [address] 78375- 4141 March, [facility] [place] [facility] [address] [id number] [place] [address]- 1153 March, [facility] [place] [facility] [address] [id number] [place] [address]- 2940 March, [facility] [place] [facility] [address] [id number] [place]88 March, [facility] [place] [facility] [address] [id number] [place] [address]- 7673 March, [facility] [place] [facility] [address] [id number] [place] [address]- 4206 March, [facility] [place] [facility] [address] [id number] [place] [address]- 0887 March, [facility] [place] [facility] [address] [id number] [place] [address]- 1017 March, [facility] [place] [facility] [address] [id number] [place] [address]- 0835 Feb, [facility] [place] [facility] [address] [id number] [place] [address]- 8681 Feb, [facility] [place] [facility] [address] [id number] [place] [address]- 7834 Feb, [facility] [place] [facility] [address] [id number] [place] [address]- 4574 Feb, [facility] [place] [facility] [address] [id number] [place] [address]- 0832 Jan, [facility] [place] [facility] [address] [id number] [place] [address]- 2304 Jan, [facility] [place] [facility] [address] [id number] [place] [address]- 6597 Jan, [facility] [place] [facility] [address] [id number] [place] [address]- 2601 Jan, [facility] [place] [facility] [address] [id number] [place] [address]- 7708 Jan, [facility] [place] [facility] [address] [id number] [place] [address]- 6465 Jan, [facility] [place] [facility] [address] [id number] [place] [address]- 2196 Jan, [facility] [place] [facility] [address] [id number] [place] [address]- 8280 Dec, [facility] [place] [facility] [address] [id number] [place] [address]- 1819 Dec, [facility] [place] [facility] [address] [id number] [place] [address]- 5100 Dec, [facility] [place] [facility] [address] [id number] [place] [address]- 5828 Dec, [facility] [place] [facility] [address] [id number] [place] [address]- 3712 Dec, [facility] [place] [facility] [address] [id number] [place] [address]- 8783 Dec, [facility] [place] [facility] [address] [id number] [place] [address]- 9472 Nov, [facility] [place] [facility] [address] [id number] [place] [address]- 9587 Nov, [facility] [place] [facility] [address] [id number] [place] [address]- 8141 Nov, [facility] [place] [facility] [address] [id number] [place] [address]- 6160 Nov, [facility] [place] [facility] [address] [id number] [place] [address]- 5391 Nov, [facility] [place] [facility] [address] [id number] [place] [address]- 2166 Nov, [facility] [place] [facility] [address] [id number] [place] [address]- 6789 Nov, [facility] [place] [facility] [address] [id number] [place] [address]- 8544 Oct, [facility] [place] [facility] [address] [id number] [place] [address]- 2351 Oct, [facility] [place] [facility] [address] [id number] [place] [address]- 8487 Oct, [facility] [place] [facility] [address] [id number] [place] [address]- 8399 Oct, [facility] [place] [facility] [address] [id number] [place] [address]- 5920 Sep, [facility] [place] [facility] [address] [id number] [place] [address]- 5440 Sep, [facility] [place] [facility] [address] [id number] [place] [address]- 1941 Sep, [facility] [place] [facility] [address] [id number] [address]- 1753 Sep, [facility] [place] [facility] [address] [id number] [place] [address]- 3458 Sep, [facility] [place] [facility] [address] [id number] [place] [address]- 7631 Sep, [facility] [place] [facility] [address] [id number] [place] [address]- 8107 Aug, [facility] [place] [facility] [address] [id number] [address]- 6316 Aug, [facility] [place] [facility] [address] [id number] [place] [address]- 5563 Aug, [facility] [place] [facility] [address] [id number] [place] [address]- 9553 Aug, [facility] [place] [facility] [address] [id number] [place] [address]- 2131 Aug, [facility] [place] [facility] [address] [id number] [place] [address]- 4118 07 Aug, 2013 [facility] [address] [id number] [place] [address]- 8653 02 Aug, 2013 [facility] [place] [facility] [address] [id number] [place] [address]- 9816 Jul, [facility] [address] [id number] [place] [address]- 7965 Jul, [facility] [place] [facility] [address] [id number] [place] [address]- 7591 Jun, [facility] [address] [id number] [place] [address]- 7386 May, [facility] [place] [facility] [address] [id number] [place] [address]- 0931 May, [facility] [address] [id number] [place] [address]- 5114 May, [facility] [address] [id number] [place] [address]- 6050 Apr, [facility] [address] [id number] [place] [address]- 9732 Apr, [facility] [address] [id number] [place] [address]- 3808 Apr, [facility] [address] [id number] [place] [address]- 1643 March, [facility] [place] [facility] [address] [id number] [place] [address]- 8755 March, [facility] [place] [facility] [address] [id number] [place] [address]- 2136 March, [facility] [place] [facility] [address] [id number] [place] [address]- 0643 Feb, [facility] [place] [facility] [address] [id number] [place] [address]- 8820 Feb, [facility] [place] [facility] [address] [id number] [place] [address]- 2768 15 Feb, 2013 [facility] [place] [facility] [address] [id number] [place] [address]- 5294 28 Jan, 2013 [facility] [place] [facility] [address] [id number] [place] [address]- 0018 19 Jan, 2013 [facility] [place] [facility] [address] [id number] [place] [address]- 3623 18 Jan, 2013 [facility] [place] [facility] [address] [id number] [place] [address]- 1864 15 Jan, 2013 [facility] [place] [facility] [address] [id number] [place] [address]- 3701 14 Jan, 2013 [facility] [address] [facility] [id number] [place] [address]- 9152 12 Jan, 2013 [facility] [place] [facility] [address] [id number] [place] [address]- 5269 05 Jan, 2013 [facility] [place] [facility] [address] [id number] [place] [address]- 5672 28 Dec, 2012 [facility] [place] [facility] [address] [id number] [place] [address]- 5182 18 Dec, 2012 [facility] [place] [facility] [address] [id number] [place] [address]- 0577 15 Dec, 2012 [facility] [place] [facility] [address] [id number] [address]- 9430 14 Dec, 2012 [facility] [place] [facility] [address] [id number] [place] [address]- 9149 05 Dec, 2012 [facility] [place] [facility] [address] [id number] [place] [address]- 4436 29 Nov, 2012 [facility] [place] [facility] [address] [id number] [place] [address]- 7057 17 Nov, 2012 [facility] [place] [facility] [address] [id number] [place] [address]- 6299 Nov, [facility] [address] [id number] [place] [address]- 3485 Nov, [facility] [place] [facility] [address] [id number] [place] [address]- 4846 Oct, [facility] [place] [facility] [address] [id number] [place] [address]- 1106 Oct, [facility] [place] [facility] [address] [id number] [place] [address]- 6948 Oct, [facility] [place] [facility] [address] [id number] [place] [address]- 9561 Oct, [facility] [place] [facility] [address] [id number] [place] [address]- 2998 Oct, [facility] [place] [facility] [address] [id number] [place] [address]- 0692 Oct, [facility] [place] [facility] [address] [id number] [place] [address] Oct, [facility] [place] [facility] [address] [id number] [place] [address] Oct, [facility] [place] [facility] [address] [facility] [id number] [place] [address] Oct, [facility] [place] [facility] [address] [id number] [place] [address] 16 Sep, 2012 [facility] [place] [facility] [address] [id number] [place] [address] 16 Sep, 2012 [facility] [place] [facility] [address] [id number] [place] [address] Sep, [facility] [place] [facility] [address] [id number] [place] [address] Sep, [facility] [place] [facility] [address] [facility] [id number] [place] [address] Sep, [facility] [place] [facility] [address] [id number] [place] [address] Aug, 2011 [facility] [place] [facility] [address] [id number] [place] [address] 25 Aug, 2011 [facility] [place] [facility] [address] [id number] [place] [address] 17 Aug, 2011 [facility] [place] [facility] [address] [id number] [place] [address] 17 Aug, 2011 [facility] [place] [facility] [address] [id number] [place] [address] 16 Aug, 2011 [facility] [place] [facility] [address] [id number] [place] [address] Aug, [facility] [place] [facility] [address] [id number] [place] [address] Aug, [facility] [place] [facility] [address] [id number] [place] [address] 10 Aug, 2012 [facility] [place] [facility] [address] [id number] [place] [address] 10 Aug, 2012 [facility] [place] [facility] [address] [id number] [place] [address]- [address] 09 Aug, 2012 [facility] [place] [facility] [address] [id number] [place] [address] 05 Aug, 2012 [facility] [place] [facility] [address] [id number] [place] [address]- [address] 04 Aug, 2012 [facility] [place] [facility] [address] [id number] [place] [address] 17 Sep, 2011 [facility] [place] [facility] [address] [id number] [place] [address]- [address] 13 Sep, 2011 [facility] [place] [facility] [address] [id number] [place] [address] 13 Sep, 2011 [facility] [place] [facility] [address] [id number] [place] [address] 11 Jul, 2012 [facility] [place] [facility] [address] [id number] [place] [address] 10 Jul, 2012 [facility] [place] [facility] [address] [id number] [place] [address] 08 Jul, 2012 [facility] [place] [facility] [address] [id number] [place] [address] 16 Jun, 2012 [facility] [place] [facility] [address] [id number] [place] [address] 14 Jun, 2012 [facility] [place] [facility] [address] [id number] [place] [address] 17 May, 2012 [facility] [place] [facility] [address] [id number] [place] [address] 287[address] 17 May, 2012 [facility] [place] [facility] [address] [id number] [place] [address] 13 May, 2012 [facility] [place] [facility] [address] [id number] [place] [address] May, [facility] [place] [facility] [address] [id number] [place] [address] Apr, [facility] [place] [facility] [address] [id number] [place] [address] Apr, [facility] [place] [facility] [address] [id number] [place] [address] Apr, [facility] [place] [facility] [address] [id number] [place] [address] Apr, [facility] [place] [facility] [address] [id number] [place] [address] Apr, [facility] [place] [facility] [address] [id number] [place] [address] March, [facility] [facility] [address] [id number] [place] [address] March, [facility] [place] [facility] [address] [id number] [place] [address] March, [facility] [address] [id number] [place] [address] March, [facility] [place] [facility] [address] [id number] [place] [address] March, [facility] [address] [id number] [place] [address] Feb, [facility] [place] [facility] [address] [id number] [place] [address] Feb, [facility] [place] [facility] [address] [id number] [place] [address] Jan, [facility] [place] [facility] [address] [id number] [place] [address] Jan, [facility] [address] [id number] [place] [address] Jan, [facility] [place] [facility] [address] [id number] [place] [address] Dec, [facility] [place] [facility] [address] [id number] [place] [address] Nov, [facility] [facility] [address] [id number] [place] [address] Nov, [facility] [place] [facility] [address] [id number] [place] [address] Nov, [facility] [place] [facility] [address] [id number] [place] [address] Nov, [facility] [place] [address] [id number] [place] [address] Oct, [facility] [address] [id number] [place] [address] Oct, [facility] [place] [address] [id number] [place] [address] Sep, [facility] [address] [id number] [place] [address] 18 Sep, 2011 [facility] [address] [id number] [place] [address] Sep, [facility] [place] [facility] [address] [id number] [place] [address] 10 Sep, 2011 [facility] [address] [id number] [place] [address] 08 Sep, 2011 [facility] [address] [id number] [place] [address] 16 Jun, 2011 [facility] [address] [id number] [place] [address] 15 Dec, 2010 [facility] [address] [id number] [place] [address] Sep, [facility] [address] [id number] [place] [address] Aug, [facility] [address] [id number] [place] [address] Aug, [facility] [address] [id number] [place] [address] Aug, [facility] [address] [id number] [place] [address] Aug, [facility] [address] [id number] [place] [address] Aug, [facility] [address] [id number] [place] [address] Jun, [facility] [address] [id number] [place] [address] 13 Feb, 2010 [facility] [address] [id number] [place] [address] 06 Sep, 2009 [facility] [address] [id number] [place] [address] Aug, [facility] [address] [facility] [id number] [place] [address] Apr, [facility] [address] [facility] [id number] [place] [address] March, IMMUNIZATIONS No Known Immunizations SOCIAL HISTORY [...]
[2019-02-03] MEDS ORDERED: PROPOFOL INJECTION 50 ML IV ONE (12:05)
--- NOTE | 2019-02-03 12:07 | Progress Note-Pre Operative ---
Pre-Operative Progress Note H&P Reviewed The H&P was reviewed, patient examined and no changes noted. Time Seen by Provider: 12:04 Date H&P Reviewed: Feb 03, 2019 Time H&P Reviewed: 12:05 Pre-Operative Diagnosis: Rectal bleed OVIDIO CASTAÑEDA DO Feb 03, 2019 12:07
[2019-02-03] MEDS ORDERED: proPOfol 200 MG/20 ML (DIPRIVAN) VIAL IV ONE (12:31)
--- NOTE | 2019-02-03 13:06 | Progress Note-Post Operative ---
Post-Operative Progess Note Surgeon (s)/[place] Registered Nurse Rn (s) Surgeon OVIDIO CASTAÑEDA DO [place] Registered Nurse Rn: none Pre-Operative Diagnosis Rectal bleed Post-Operative Diagnosis Cecal Polyp Internal hemorrhoids Procedure & Operative Findings Date of Procedure 02/03/19 Procedure Performed/Findings colon with hot bx Anesthesia Type IV sedation by DEBEAKER Estimated Blood Loss Estimated blood loss (mL): scant Specimens/Packing Specimens Removed Cecal polyp OVIDIO CASTAÑEDA DO Feb 03, 2019 13:06
--- NOTE | 2019-02-03 13:08 | Endoscopy Discharge Instruct ---
Endo Procedure/Findings Findings 1.: Polyp 2.: Internal Hemorrhoids Discharge Instructions - Activity: You might feel a little sleepy until tomorrow. This is due to the medicine you received to relax you. Until tomorrow, you should: NOT drive a car, operate machinery or power tools. NOT drink any alcoholic beverages. NOT make any important decisions or sign importortant papers. Do not return to work until tomorrow, unless otherwise instructed. Resume previous activities tomorrow. Diet: Start by taking liquids. If you tolerate liquids, advance to solid food. make an appointment for one week Instructions: 1.: Colonscopy in 5 years Notify Physician - If you experience excessive bleeding, unusual abdominal pain, fever, or chest pain, contact your doctor immediately. Follow-Up: - I have received and understand the above instructions and will call my doctor if I have any further questions. Patient Signature Date Nurse Signature Other (Relationship) OVIDIO CASTAÑEDA DO Feb 03, 2019 13:08
[2019-02-03 13:20] VITALS: BP 112/72
[2019-02-03 13:50] VITALS: BP 120/72
[2019-02-03 14:10] VITALS: BP 120/72
--- NOTE | 2019-02-03 14:37 | Anesthesia-General Post-Op ---
MAC Patient Condition Mental Status/LOC: Same as Preop Cardiovascular: Satisfactory Nausea/Vomiting: Absent Respiratory: Satisfactory Pain: Controlled Complications: Absent Post Op Complications Complications None Follow Up Care/Instructions Patient Instructions None needed. Anesthesiology Discharge Order Discharge Order Patient is doing well, no complaints, stable vital signs, no apparent adverse anesthesia problems. No complications reported per nursing. MILKA DAVID CRNA Feb 03, 2019 14:36
--- NOTE | 2019-02-04 05:37 | OPERATIVE REPORT ---
DATE OF SERVICE: 02/03/2019 PREOPERATIVE DIAGNOSIS: Rectal bleed. POSTOPERATIVE DIAGNOSES: 1. Cecal polyp. 2. Internal hemorrhoids. PROCEDURE: Colonoscopy with hot biopsy. SURGEON: Maxi Harrington DO. ROLL MACHINE OPERATOR: None. ANESTHESIA: IV sedation by the INSTALLATION COORDINATOR. SPECIMEN: Cecal polyp. BLOOD LOSS: Scant. FLUIDS: Per anesthesia. POSTOPERATIVE CONDITION: Stable. INDICATION FOR PROCEDURE: The patient is a 53-year-old female who has been having some rectal bleeding, has never had a colonoscopy and needs a workup. FINDINGS: The patient had a cecal polyp and she had some grade I-II internal hemorrhoids. No other obvious pathology seen. She did have some very friable colon, especially the ascending and cecum, but no ulcerations or signs of infection. PROCEDURE NOTE: After informed consent was obtained, the patient was brought to the endoscopy suite, placed in the bed left lateral decubitus position. She was administered IV sedation by the INSTALLATION COORDINATOR who then monitored her vitals the entire time, heart rate, blood pressure, pulse ox and the scope was inserted, pushed all the way about 160 cm, able to get to the cecum. Took a picture of appendiceal orifice and then right near the appendiceal orifice noted a polyp. I would like to do a hot biopsy, able to get the polyp in ; however, getting towards this area was very hard. She is very twisty and there was some rubbing of the scope against the wall of the colon. There was a little bit of bleeding from this; it looked very friable, but again no ulcerations or inflammation obviously seen. Then, slowly withdrew the scope insufflating to look circumferentially at the al looking at the cecum up the ascending colon to the hepatic flexure, then down the transverse colon to the splenic flexure and down into the descending colon and sigmoid and finally in the rectum, retroflexed the rectal vault, saw some internal hemorrhoids, took a picture of this and then removed the scope. The patient tolerated the procedure and she recovered in the arthroscopy suite. Job ID: [id number] DocumentID: [id number] Dictated Date: 02/03/2019 18:47:57 Tech Ed/Woodshop Teacher Date: 02/04/2019 05:36:31 Dictated By: MAXI HARRINGTON DO
== END 2019-02-03 14:13 | disposition home or self-care (01) ==
LOC: ENDO 10:37
PROVIDERS: ATTEND Surgery
DX: D12.0 Benign neoplasm of cecum (principal); K64.8 Other hemorrhoids; K62.5 Hemorrhage of anus and rectum; E11.9 Type 2 diabetes mellitus without complications; F25.0 Schizoaffective disorder, bipolar type; F31.9 Bipolar disorder, unspecified; F41.9 Anxiety disorder, unspecified; K21.9 Gastro-esophageal reflux disease without esophagitis; E78.5 Hyperlipidemia, unspecified; I10 Essential (primary) hypertension; J44.9 Chronic obstructive pulmonary disease, unspecified; F17.210 Nicotine dependence, cigarettes, uncomplicated; Z79.84 Long term (current) use of oral hypoglycemic drugs; Z79.899 Other long term (current) drug therapy; Z88.2 Allergy status to sulfonamides; Z88.5 Allergy status to narcotic agent; Z96.641 Presence of right artificial hip joint

== ENCOUNTER 2019-06-06 13:33 | Emergency (ER) | payer MEDICARE, MEDICAID ==
[~2019-06-06] VITALS: Ht 154.9 cm; Wt 73.5 kg
[2019-06-06] MEDS ORDERED: EMPA10TA PO (13:44)
--- NOTE | 2019-06-06 14:01 | ED Abdominal Pain ---
General Chief Complaint: Abdominal/GI Problems Stated Complaint: STOMACH PAIN Nursing Triage Note: had colonoscopy two months ago, had polop removed, having bloody stools now Sepsis Screen: No Definite Risk Source of Information: Patient Exam Limitations: No Limitations History of Present Illness Date Seen by Provider: Jun 06, 2019 Time Seen by Provider: 13:59 Initial Comments To ER with reports of rectal bleeding with bowel movements that is bright red in color intermittently for the past few weeks. A polyp removed during colonoscopy a few months ago. She has some intermittent left upper abdominal pains described as a shooting pain intermittently for the past week. No nausea no fever no chills. Timing/Duration: 1-2 Days Severity/Quality: Moderate Radiation: No Radiation Activities at Onset: None Associated Symptoms: Denies Symptoms Allergies and Home Medications Allergies Coded Allergies: Sulfa (Sulfonamide Antibiotics) (Verified Allergy, Unknown, 01/30/19) hydrocodone (Verified Adverse Reaction, Unknown, SICK TO STOMACH, 01/30/19) Home Medications Empagliflozin 10 Mg Tablet, 10 MG PO DAILY, (Reported) Magnesium Oxide 400 Mg Capsule, 400 MG PO DAILY, (Reported) Metformin HCl 1,000 Mg Tablet, 1,000 MG PO BID, (Reported) Metoprolol Succinate 50 Mg Tab.er.24h, 50 MG PO DAILY, (Reported) Patient Home Medication List Home Medication List Reviewed: Yes Review of Systems Review of Systems Constitutional: see HPI EENTM: No Symptoms Reported Respiratory: No Symptoms Reported Cardiovascular: No Symptoms Reported Gastrointestinal: See HPI 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: No Symptoms Reported Musculoskeletal: no symptoms reported Skin: no symptoms reported Psychiatric/Neurological: No Symptoms Reported Endocrine: No Symptoms Reported Hematologic/Lymphatic: No Symptoms Reported Past Flnvdfq-Gpoznr-Yfaqbr Hx Patient Social History Alcohol Use: Denies Use Recreational Drug Use: No Drug of Choice: BENZODIAZEPINE ABUSE Type Used: Cigarettes Former Smoker, Quit: Jan 28, 2018 2nd Hand Smoke Exposure: Yes Recent Foreign Travel: No Contact w/Someone Who Travel: No Recent Infectious Disease Expo: No Recent Hopitalizations: No Immunizations Up To Date Tetanus Booster (TDap): Unknown PED Vaccines UTD: No Seasonal Allergies Seasonal Allergies: No Past Medical History Surgeries: Yes Section, Gallbladder, 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, Joint Replacement, Orthopedic, Rectal Respiratory: Yes COPD, Emphysema Cardiac: Yes High Cholesterol, Hypertension, Palpitations Neurological: Yes Headaches /Migraines 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 Disorders: No 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 Sexually Transmitted Disease: No HIV/AIDS: No 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: No Gastrointestinal: Yes (RECTAL BLEEDING) Gastroesophageal Reflux Musculoskeletal: Yes Arthritis, Scoliosis, Chronic Back Pain, Fractures Endocrine: Yes Diabetes, Non-Insulin dep HEENT: Yes (DENTURES) Cancer: No Psychosocial: Yes Sleep Difficulties, Anxiety, Bipolar, Depression Integumentary: No Blood Disorders: No Adverse Reaction/Blood Tranf: No Family Medical History Psychiatric Problems Physical Exam Vital Signs Vital Signs - First Documented 06/06/19 13:37 Temp 97.7 Pulse 74 B/P (MAP) 125/72 (89) Capillary Refill : Less Than 3 Seconds Height/Weight/BMI Height: 5'1.00" Weight: 162lbs. 0.0oz. 73.339646vz; 30.2 BMI Method:Stated General Appearance: WD/WN, no apparent distress HEENT: PERRL/EOMI, normal ENT inspection Respiratory: normal breath sounds, no respiratory distress, no accessory muscle use Cardiovascular: regular rate, rhythm, no murmur Gastrointestinal: normal bowel sounds, non tender, soft Rectal: other (rectal exam done with Scarlett SWANSON at the bedside. There are several hemorrhoids, no active bleeding no fissures.) Extremities: normal range of motion, non-tender Neurologic/Psychiatric: alert, normal mood/affect, oriented x 3 Skin: normal color, warm/dry Progress/Results/Core Measures Results/Orders Lab Results Laboratory Tests Test 06/06/19 13:55 06/06/19 16:05 Range/Units White Blood Count 6.4 4.3-11.0 10^3/uL Red Blood Count 4.39 4.35-5.85 10^6/uL Hemoglobin 13.8 11.5-16.0 G/DL Hematocrit 40 35-52 % Mean Corpuscular Volume 91 80-99 FL Mean Corpuscular Hemoglobin 31 25-34 PG Mean Corpuscular Hemoglobin Concent 35 32-36 G/DL Red Cell Distribution Width 13.5 10.0-14.5 % Platelet Count 209 130-400 10^3/uL Mean Platelet Volume 9.4 7.4-10.4 FL Neutrophils (%) (Auto) 53 42-75 % Lymphocytes (%) (Auto) 32 12-44 % Monocytes (%) (Auto) 9 0-12 % Eosinophils (%) (Auto) 6 0-10 % Basophils (%) (Auto) 1 0-10 % Neutrophils # (Auto) 3.3 1.8-7.8 X 10^3 Lymphocytes # (Auto) 2.0 1.0-4.0 X 10^3 Monocytes # (Auto) 0.6 0.0-1.0 X 10^3 Eosinophils # (Auto) 0.4 H 0.0-0.3 10^3/uL Basophils # (Auto) 0.0 0.0-0.1 10^3/uL Sodium Level 137 135-145 MMOL/L Potassium Level 3.7 3.6-5.0 MMOL/L Chloride Level 104 98-107 MMOL/L Carbon Dioxide Level 24 21-32 MMOL/L Anion Gap 9 5-14 MMOL/L Blood Urea Nitrogen 13 7-18 MG/DL Creatinine 0.73 0.60-1.30 MG/DL Estimat Glomerular Filtration Rate > 60 BUN/Creatinine Ratio 18 Glucose Level 180 H 70-105 MG/DL Calcium Level 10.0 8.5-10.1 MG/DL Corrected Calcium 10.0 8.5-10.1 MG/DL Total Bilirubin 0.3 0.1-1.0 MG/DL Aspartate Amino Transf (AST/SGOT) 30 5-34 U/L Alanine Aminotransferase (ALT/SGPT) 62 H 0-55 U/L Alkaline Phosphatase 118 40-136 U/L Total Protein 6.3 L 6.4-8.2 GM/DL Albumin 4.0 3.2-4.5 GM/DL Lipase 28 8-78 U/L Urine Opiates Screen NEGATIVE NEGATIVE Urine Oxycodone Screen NEGATIVE NEGATIVE Urine Methadone Screen NEGATIVE NEGATIVE Urine Propoxyphene Screen NEGATIVE NEGATIVE Urine Barbiturates Screen NEGATIVE NEGATIVE Ur Tricyclic Antidepressants Screen NEGATIVE NEGATIVE Urine Phencyclidine Screen NEGATIVE NEGATIVE Urine Amphetamines Screen NEGATIVE NEGATIVE Urine Methamphetamines Screen NEGATIVE NEGATIVE Urine Benzodiazepines Screen NEGATIVE NEGATIVE Urine Cocaine Screen NEGATIVE NEGATIVE Urine Cannabinoids Screen NEGATIVE NEGATIVE My Orders Orders - KRISTOPHER MILLER APRN Cbc With Automated Diff (06/06/19 13:49) Comprehensive Metabolic Panel (06/06/19 13:49) Ua Culture If Indicated (06/06/19 13:49) Ed Iv/Invasive Line Start (06/06/19 13:49) Lipase (06/06/19 13:54) Ct Abdomen/Pelvis Wo (06/06/19 13:54) Code/Resuscitation (06/06/19 13:56) Drug Screen Stat (Urine) (06/06/19 14:11) Lactated Ringers (Lr 1000 Ml Iv Solution (06/06/19 14:45) Vital Signs/I&O 06/06/19 13:37 Temp 97.7 Pulse 74 B/P (MAP) 125/72 (89) Blood Pressure Mean: 89 Departure Impression Primary Impression: Epigastric abdominal tenderness Qualified Codes: R10.826 - Epigastric rebound abdominal tenderness Additional Impression: Bloody stools Disposition: HOME, SELF-CARE Condition: Stable Departure-Patient Inst. Decision time for Depature: 16:36 Referrals: ROMY PULIDO MD (PCP/Family) Primary Care Physician Patient Instructions: Bloodless Surgery, Hemorrhoids Add. Discharge Instructions: 1. Call Dr. Harrington next week to make an appointment to be seen for follow-up. Return to ER for any concerns in the meantime. All discharge instructions reviewed with patient and/or family. Voiced understanding. KRISTOPHER MILLER APRN Jun 06, 2019 14:00
[2019-06-06 14:05] LABS: BASOPHILS % (AUTO) 1 % (0-10); EOSINOPHILS # (AUTO) 0.4 10^3/uL (0.0-0.3); EOSINOPHILS % (AUTO) 6 % (0-10); HEMATOCRIT 40 % (35-52); HEMOGLOBIN 13.8 G/DL (11.5-16.0); LYMPHOCYTES % (AUTO) 32 % (12-44); MEAN CORPUSCULAR HEMOGLOBIN 31 PG (25-34); MEAN CORPUSCULAR HGB CONC 35 G/DL (32-36); MEAN CORPUSCULAR VOLUME 91 FL (80-99); MEAN PLATELET VOLUME 9.4 FL (7.4-10.4); MONOCYTES # (AUTO) 0.6 X 10^3 (0.0-1.0); MONOCYTES % (AUTO) 9 % (0-12); NEUTROPHILS # (AUTO) 3.3 X 10^3 (1.8-7.8); NEUTROPHILS % (AUTO) 53 % (42-75); PLATELET COUNT 209 10^3/uL (130-400); RED CELL DISTRIBUTION WIDTH 13.5 % (10.0-14.5); WHITE BLOOD COUNT 6.4 10^3/uL (4.3-11.0)
[2019-06-06 14:26] LABS: ALANINE AMINOTRANSFERASE 62 U/L (0-55); ALKALINE PHOSPHATASE 118 U/L (40-136); BILIRUBIN,TOTAL 0.3 MG/DL (0.1-1.0); BUN/CREATININE RATIO 18; CARBON DIOXIDE 24 MMOL/L (21-32); CHLORIDE 104 MMOL/L (98-107); CREATININE SERUM 0.73 MG/DL (0.60-1.30); GFR ESTIMATED > 60; GLUCOSE 180 MG/DL (70-105); LIPASE 28 U/L (8-78); POTASSIUM 3.7 MMOL/L (3.6-5.0); SODIUM 137 MMOL/L (135-145); TOTAL PROTEIN 6.3 GM/DL (6.4-8.2)
--- NOTE | 2019-06-06 14:29 | Diagnostic Imaging Report ---
PROCEDURE: CT abdomen and pelvis without contrast. TECHNIQUE: Multiple contiguous axial images were obtained through the abdomen and pelvis without the use of intravenous contrast. Auto Exposure Controls were utilized during the CT exam to meet ALARA standards for radiation dose reduction. INDICATION: Status post colonoscopy two months ago with polyp removal. Patient complains of bloody stools at this time. COMPARISON: Correlation is made with prior CT from 12/10/2017. FINDINGS: The lung bases are clear. The liver is unremarkable. The gallbladder is surgically absent. No biliary ductal dilatation is seen. The pancreas and spleen are unremarkable. No adrenal mass is detected. No renal calculi or hydronephrosis is detected. Aorta is partially calcified but nonaneurysmal. The small and large bowel loops are normal in caliber. There is no obstruction. Moderate stool in the colon is seen. There is no ascites. No inflammatory changes are identified. Appendix is unremarkable. Bladder is decompressed. There is a large amount of artifact in the pelvis from right hip prosthesis. IMPRESSION: 1. Essentially unremarkable noncontrast CT of the abdomen and pelvis. No acute feature is detected. Dictated by: Dictated on workstation # [id number]
[2019-06-06] MEDS ORDERED: LACTATED RINGERS 1,000 ML IV SCH (14:45)
[2019-06-06 16:34] LABS: AMPHETAMINE SCREEN, URINE NEGATIVE (NEGATIVE); BARBITURATE SCREEN URINE NEGATIVE (NEGATIVE); BENZODIAZEPINES SCREEN URINE NEGATIVE (NEGATIVE); CANNABINOID SCREEN, URINE NEGATIVE (NEGATIVE); COCAINE SCREEN URINE NEGATIVE (NEGATIVE); METHADONE STAT NEGATIVE (NEGATIVE); METHAMPHETAMINE SCREEN URINE S NEGATIVE (NEGATIVE); OPIATE SCREEN URINE NEGATIVE (NEGATIVE); OXYCODONE STAT NEGATIVE (NEGATIVE); PROPOXYPHENE STAT NEGATIVE (NEGATIVE); TRICYCLIC ANTIDEPRESSANTS SCRE NEGATIVE (NEGATIVE)
[2019-06-06 16:39] LABS: BACTERIA,URINE TRACE /HPF; BILIRUBIN,URINE NEGATIVE (NEGATIVE); CLARITY,URINE CLEAR; COLOR,URINE YELLOW; GLUCOSE, URINE (UA) 4+ (NEGATIVE); KETONES,URINE NEGATIVE (NEGATIVE); LEUKOCYTE ESTERASE ,URINE NEGATIVE (NEGATIVE); NITRITE,URINE NEGATIVE (NEGATIVE); PH,URINE 6.5 (5-9); PROTEIN,URINE NEGATIVE (NEGATIVE); UROBILINOGEN,URINE NORMAL (NORMAL)
[2019-06-06 16:54] VITALS: BP 132/88
== END 2019-06-06 16:57 | disposition home or self-care (01) ==
LOC: EDUNIT# 13:33 → ER 13:35
DX: K92.1 Melena (principal); R10.816 Epigastric abdominal tenderness; I10 Essential (primary) hypertension; E11.9 Type 2 diabetes mellitus without complications; E78.00 Pure hypercholesterolemia, unspecified; J43.9 Emphysema, unspecified; G43.909 Migraine, unspecified, not intractable, without status migrainosus; K21.9 Gastro-esophageal reflux disease without esophagitis; F41.9 Anxiety disorder, unspecified; F31.9 Bipolar disorder, unspecified; Z88.2 Allergy status to sulfonamides; Z88.5 Allergy status to narcotic agent; Z79.84 Long term (current) use of oral hypoglycemic drugs; Z87.891 Personal history of nicotine dependence; Z77.22 Contact with and (suspected) exposure to environmental tobacco smoke (acute) (chronic); Z90.710 Acquired absence of both cervix and uterus
CPT/HCPCS: 36415; 74176; 80053; 80306; 81000; 83690; 85025; 96360

== ENCOUNTER 2019-10-21 23:22 | Emergency (ER) | payer MEDICARE, MEDICAID ==
[~2019-10-21] VITALS: Ht 154.9 cm; Wt 73.0 kg
[~2019-10-21 23:22] MED LIST changes: +EMPA10TA PO
[2019-10-21 23:41] LABS: BASOPHILS % (AUTO) 0 % (0-10); EOSINOPHILS # (AUTO) 0.4 10^3/uL (0.0-0.3); EOSINOPHILS % (AUTO) 4 % (0-10); HEMATOCRIT 45 % (35-52); HEMOGLOBIN 15.3 G/DL (11.5-16.0); LYMPHOCYTES # (AUTO) 2.7 X 10^3 (1.0-4.0); LYMPHOCYTES % (AUTO) 28 % (12-44); MEAN CORPUSCULAR HEMOGLOBIN 31 PG (25-34); MEAN CORPUSCULAR HGB CONC 34 G/DL (32-36); MEAN CORPUSCULAR VOLUME 90 FL (80-99); MEAN PLATELET VOLUME 9.5 FL (7.4-10.4); MONOCYTES # (AUTO) 0.6 X 10^3 (0.0-1.0); MONOCYTES % (AUTO) 7 % (0-12); NEUTROPHILS # (AUTO) 5.7 X 10^3 (1.8-7.8); NEUTROPHILS % (AUTO) 61 % (42-75); PLATELET COUNT 231 10^3/uL (130-400); RED CELL DISTRIBUTION WIDTH 13.2 % (10.0-14.5); WHITE BLOOD COUNT 9.4 10^3/uL (4.3-11.0)
[2019-10-21] MEDS ORDERED: ASPIRIN 81 MG CHEW (CHILDREN'S ASA) PO ONE (23:45)
[2019-10-21 23:46] LABS: INR 0.9 (0.8-1.4); PROTHROMBIN TIME PATIENT 12.9 SEC (12.2-14.7)
[2019-10-21 23:55] LABS: ALANINE AMINOTRANSFERASE 48 U/L (0-55); ALBUMIN 4.5 GM/DL (3.2-4.5); ALKALINE PHOSPHATASE 136 U/L (40-136); BILIRUBIN,TOTAL 0.6 MG/DL (0.1-1.0); BUN/CREATININE RATIO 20; CALCIUM 10.1 MG/DL (8.5-10.1); CARBON DIOXIDE 23 MMOL/L (21-32); CHLORIDE 103 MMOL/L (98-107); GFR ESTIMATED > 60; GLUCOSE 130 MG/DL (70-105); POTASSIUM 3.8 MMOL/L (3.6-5.0); SODIUM 143 MMOL/L (135-145); TOTAL PROTEIN 7.2 GM/DL (6.4-8.2)
--- NOTE | 2019-10-22 01:00 | ED Chest Pain ---
General Chief Complaint: Chest Pain Stated Complaint: HEART PALPITATIONS Source: patient Exam Limitations: no limitations History of Present Illness Date Seen by Provider: Oct 22, 2019 Time Seen by Provider: 00:19 Initial Comments Here with a week's worth of mild anterior chest pressure and tonight she noted that she felt like her heart was skipping a beat. She does have history of anxiety and typically presents this way. She has had some stressors related to family stuff over the last 2 days. She does follow with Dr. Anthony and Dr. Pulido. She is taking her medicines as directed. She has not had aspirin tonight Timing/Duration: changing over time, 6-7 days Severity/Quality: mild, pressure Location: central Radiation: no radiation Prior CP/Workup: echocardiography, stress test ASA po ELECTRONIC SCALE TESTER: No NTG SL ELECTRONIC SCALE TESTER: No Associated Symptoms: No abdominal pain, No fever/chills, No nausea/vomiting, No shortness of breath, No weakness Allergies and Home Medications Allergies Coded Allergies: Sulfa (Sulfonamide Antibiotics) (Verified Allergy, Unknown, 01/30/19) hydrocodone (Verified Adverse Reaction, Unknown, SICK TO STOMACH, 01/30/19) Home Medications Empagliflozin 10 Mg Tablet, 10 MG PO DAILY, (Reported) Magnesium Oxide 400 Mg Capsule, 400 MG PO DAILY, (Reported) Metformin HCl 1,000 Mg Tablet, 1,000 MG PO BID, (Reported) Metoprolol Succinate 50 Mg Tab.er.24h, 50 MG PO DAILY, (Reported) Patient Home Medication List Home Medication List Reviewed: Yes Review of Systems Review of Systems Constitutional: see HPI; No chills, No fever EENTM: No Symptoms Reported Respiratory: Denies Shortness of Air, Denies Wheezing Cardiovascular: Chest Pain; Denies Lightheadedness; Palpitations Gastrointestinal: No Symptoms Reported 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: No Symptoms Reported Musculoskeletal: no symptoms reported Psychiatric/Neurological: Anxiety; Denies Weakness All Other Systems Reviewed Negative Unless Noted: Yes Past Jwapzfy-Xjjoum-Gznrzv Hx Past Med/Social Hx: Reviewed Nursing Past Med/Soc Hx Patient Social History Alcohol Use: Denies Use Recreational Drug Use: No Drug of Choice: BENZODIAZEPINE ABUSE Smoking Status: Former Smoker Type Used: Cigarettes Former Smoker, Quit: Jan 28, 2018 2nd Hand Smoke Exposure: Yes Recent Foreign Travel: No Contact w/Someone Who Travel: No Recent Hopitalizations: No Immunizations Up To Date Tetanus Booster (TDap): Unknown PED Vaccines UTD: No Seasonal Allergies Seasonal Allergies: No Past Medical History Surgeries: Yes Section, Gallbladder, 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, Joint Replacement, Orthopedic, Rectal Respiratory: Yes COPD, Emphysema Cardiac: Yes High Cholesterol, Hypertension, Palpitations Neurological: Yes Headaches /Migraines 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 Disorders: No 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 0.0oz. 73.599404be; 30.2 BMI Method:Stated General Appearance: No Apparent Distress, WD/WN HEENT: PERRL/EOMI, Pharynx Normal Neck: Non Tender, Supple Respiratory: Lungs Clear, Normal Breath Sounds Cardiovascular: Regular Rate, Rhythm, No Murmur Gastrointestinal: Non Tender, Soft Extremity: Normal Inspection, Normal Range of Motion Neurologic/Psychiatric: Alert, Oriented x3 Skin: Normal Color, Warm/Dry Progress/Results/Core Measures Results/Orders Lab Results Laboratory Tests Test 10/21/19 23:25 Range/Units White Blood Count 9.4 4.3-11.0 10^3/uL Red Blood Count 4.92 4.35-5.85 10^6/uL Hemoglobin 15.3 11.5-16.0 G/DL Hematocrit 45 35-52 % Mean Corpuscular Volume 90 80-99 FL Mean Corpuscular Hemoglobin 31 25-34 PG Mean Corpuscular Hemoglobin Concent 34 32-36 G/DL Red Cell Distribution Width 13.2 10.0-14.5 % Platelet Count 231 130-400 10^3/uL Mean Platelet Volume 9.5 7.4-10.4 FL Neutrophils (%) (Auto) 61 42-75 % Lymphocytes (%) (Auto) 28 12-44 % Monocytes (%) (Auto) 7 0-12 % Eosinophils (%) (Auto) 4 0-10 % Basophils (%) (Auto) 0 0-10 % Neutrophils # (Auto) 5.7 1.8-7.8 X 10^3 Lymphocytes # (Auto) 2.7 1.0-4.0 X 10^3 Monocytes # (Auto) 0.6 0.0-1.0 X 10^3 Eosinophils # (Auto) 0.4 H 0.0-0.3 10^3/uL Basophils # (Auto) 0.0 0.0-0.1 10^3/uL Prothrombin Time 12.9 12.2-14.7 SEC INR Comment 0.9 0.8-1.4 Activated Partial Thromboplast Time 26 24-35 SEC Sodium Level 143 135-145 MMOL/L Potassium Level 3.8 3.6-5.0 MMOL/L Chloride Level 103 98-107 MMOL/L Carbon Dioxide Level 23 21-32 MMOL/L Anion Gap 17 H 5-14 MMOL/L Blood Urea Nitrogen 16 7-18 MG/DL Creatinine 0.80 0.60-1.30 MG/DL Estimat Glomerular Filtration Rate > 60 BUN/Creatinine Ratio 20 Glucose Level 130 H 70-105 MG/DL Calcium Level 10.1 8.5-10.1 MG/DL Corrected Calcium 9.7 8.5-10.1 MG/DL Magnesium Level 2.0 1.6-2.4 MG/DL Total Bilirubin 0.6 0.1-1.0 MG/DL Aspartate Amino Transf (AST/SGOT) 27 5-34 U/L Alanine Aminotransferase (ALT/SGPT) 48 0-55 U/L Alkaline Phosphatase 136 40-136 U/L Myoglobin 34.0 10.0-92.0 NG/ML Troponin I < 0.028 <0.028 NG/ML Total Protein 7.2 6.4-8.2 GM/DL Albumin 4.5 3.2-4.5 GM/DL My Orders Orders - MARIALUISA PATEL MD Cbc With Automated Diff (10/21/19 23:36) Magnesium (10/21/19 23:36) Chest 1 View, Ap/Pa Only (10/21/19 23:36) Ekg Tracing (10/21/19 23:36) Comprehensive Metabolic Panel (10/21/19 23:36) Myoglobin Serum (10/21/19 23:36) Protime With Inr (10/21/19 23:36) Partial Thromboplastin Time (10/21/19 23:36) O2 (10/21/19 23:36) Monitor-Rhythm Ecg Trace Only (10/21/19 23:36) Lipid Panel (10/22/19 06:00) Ed Iv/Invasive Line Start (10/21/19 23:36) Troponin I (10/21/19 23:36) Aspirin Chewable Tablet (Baby Aspirin Ch (10/21/19 23:45) Medications Given in ED Current Medications Medications Dose Ordered Sig/George Route Start Time Stop Time Status Last Admin Dose Admin Aspirin 324 mg ONCE ONCE PO 10/21/19 23:45 10/21/19 23:46 DC 10/21/19 23:40 324 MG Departure Impression Primary Impression: Chest pain Qualified Codes: R07.9 - Chest pain, unspecified Additional Impression: Palpitations Disposition: 01 HOME, SELF-CARE Condition: Improved Departure-Patient Inst. Decision time for Depature: 01:05 Referrals: ROMY PULIDO MD (PCP/Family) Primary Care Physician RJ ANTHONY MD FACP FACC CCDS Patient Instructions: Palpitations (DC), Chest Pain Add. Discharge Instructions: All discharge instructions reviewed with patient and/or family. Voiced understanding. Continue home medications as previously prescribed. Follow-up with your in a few days for recheck. Return for worsening, fever, vomiting, weakness, breathing problems or other concerns as needed. MARIALUISA PATEL MD Oct 22, 2019 01:00 POS
--- NOTE | 2019-10-22 07:55 | Diagnostic Imaging Report ---
Indication: Chest pain and palpitations. Findings: Heart and lungs appeared unremarkable. Impression: Negative. Dictated by: Dictated on workstation # [id number]
[2019-10-23 01:35] VITALS: BP 107/75
== END 2019-10-22 01:42 | disposition home or self-care (01) ==
LOC: EDUNIT# 23:22 → ER 23:23
DX: R07.89 Other chest pain (principal); R00.2 Palpitations; F41.9 Anxiety disorder, unspecified; J43.9 Emphysema, unspecified; I10 Essential (primary) hypertension; E78.00 Pure hypercholesterolemia, unspecified; G43.909 Migraine, unspecified, not intractable, without status migrainosus; K21.9 Gastro-esophageal reflux disease without esophagitis; E11.9 Type 2 diabetes mellitus without complications; F31.9 Bipolar disorder, unspecified; Z88.2 Allergy status to sulfonamides; Z88.5 Allergy status to narcotic agent; Z79.84 Long term (current) use of oral hypoglycemic drugs; Z77.22 Contact with and (suspected) exposure to environmental tobacco smoke (acute) (chronic); Z87.891 Personal history of nicotine dependence; Z90.710 Acquired absence of both cervix and uterus
CPT/HCPCS: 36415; 71045; 80053; 83735; 83874; 84484; 85025; 85610; 85730; 93005; 93041

== ENCOUNTER 2019-11-21 18:58 | Emergency (ER) | payer MEDICARE, MEDICAID ==
[~2019-11-21] VITALS: Ht 162 cm; Wt 73.0 kg
[~2019-11-21 18:58] MED LIST changes: +METF500T19 PO; -METF500T8 PO; -METO-370 PO; +METO50TA7 PO
[2019-11-21] MEDS ORDERED: ASPIRIN 81 MG CHEW (CHILDREN'S ASA) PO ONE (19:15)
--- NOTE | 2019-11-21 19:19 | ED Cardiac General ---
History of Present Illness General Chief Complaint: Cardiac/General Problems Stated Complaint: A FIB Nursing Triage Note: PT PRESENTS TO THE ED VIA EMS C/O HEART PALPITATIONS AND RACING HEARTBEAT THAT ONSET YESTERDAY. PT STATES SHE HASNT SLEPT WELL OVER THE LAST 2-3 DAYS AND ISNT SURE IF SHE HAS BEEN USING HER HOME MEDS. PT DENIES CHEST PAIN, VERBALIZES NAUSEA. Source: patient Exam Limitations: no limitations History of Present Illness Date Seen by Provider: Nov 21, 2019 Time Seen by Provider: 18:58 Initial Comments Here with report of palpitations that have been intermittent over the last few days. Also is associated with nausea. She is on medications for her heart rate and has history of diabetes and hypertension. Usually well controlled but does occasionally have episodes of breakthrough. Timing/Duration: changing over time, intermittent, resolved prior to arrival, 3-4 days Severity: moderate Location: central Prior CP/Workup: echocardiography, stress test Modifying Factors: improves with rest NTG SL INCLUSION PARAEDUCATOR: No ASA po INCLUSION PARAEDUCATOR: No Associated Systoms: Chest Pain (palpitations); No Fever/Chills; Nausea/Vomiting; No Shortness of Air, No Weakness Allergies and Home Medications Allergies Coded Allergies: Sulfa (Sulfonamide Antibiotics) (Verified Allergy, Unknown, 01/30/19) hydrocodone (Verified Adverse Reaction, Unknown, SICK TO STOMACH, 01/30/19) Home Medications Empagliflozin 10 Mg Tablet, 10 MG PO DAILY, (Reported) Magnesium Oxide 400 Mg Capsule, 400 MG PO DAILY, (Reported) Metformin HCl 1,000 Mg Tablet, 1,000 MG PO BID, (Reported) Metoprolol Succinate 50 Mg Tab.er.24h, 50 MG PO DAILY, (Reported) Patient Home Medication List Home Medication List Reviewed: Yes Review of Systems Review of Systems Constitutional: see HPI; No chills, No fever EENTM: No Symptoms Reported Respiratory: No Symptoms Reported Cardiovascular: Chest Pain, Irregular Heart Rate, Palpitations Gastrointestinal: Denies Abdominal Pain; Nausea; Denies Vomiting 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: No Symptoms Reported Musculoskeletal: no symptoms reported Skin: no symptoms reported Psychiatric/Neurological: See HPI, Anxiety; Denies Weakness Endocrine: No Symptoms Reported All Other Systems Reviewed Negative Unless Noted: Yes Past [place]-[facility] Hx Past Med/Social Hx: Reviewed Nursing Past Med/Soc Hx Patient Social History Alcohol Use: Denies Use Recreational Drug Use: No (hx of) Drug of Choice: BENZODIAZEPINE ABUSE Smoking Status: Current Everyday Smoker Type Used: Cigarettes Former Smoker, Quit: Jan 28, 2018 2nd Hand Smoke Exposure: Yes Recent Foreign Travel: No Contact w/Someone Who Travel: No Recent Infectious Disease Expo: No Recent Hopitalizations: No Physical Abuse: No Sexual Abuse: No Fear: No Immunizations Up To Date Tetanus Booster (TDap): Unknown PED Vaccines UTD: No Seasonal Allergies Seasonal Allergies: No Past Medical History Surgeries: Yes Section, Gallbladder, 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, Joint Replacement, Orthopedic, Rectal Respiratory: Yes COPD, Emphysema Cardiac: Yes High Cholesterol, Hypertension, Palpitations Neurological: Yes Headaches /Migraines : No 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 Disorders: No 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 Sexually Transmitted Disease: No HIV/AIDS: No 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: No Gastrointestinal: Yes (RECTAL BLEEDING) Gastroesophageal Reflux Musculoskeletal: Yes Arthritis, Scoliosis, Chronic Back Pain, Fractures Endocrine: Yes Diabetes, Non-Insulin dep HEENT: Yes (DENTURES) Cancer: No Psychosocial: Yes Sleep Difficulties, Anxiety, Bipolar, Depression Integumentary: No Blood Disorders: No Adverse Reaction/Blood Tranf: No Family Medical History Reviewed Nursing Family Hx Psychiatric Problems Physical Exam Vital Signs Vital Signs - First Documented 11/21/19 18:58 Temp 36.4 Pulse 81 Resp 20 B/P (MAP) 119/79 (92) Pulse Ox 96 O2 Delivery Room Air Capillary Refill : Less Than 3 Seconds Height, Weight, BMI Height: 5'1.00" Weight: 162lbs. 0.0oz. 73.638257kk; 27.00 BMI Method:Stated General Appearance: No Apparent Distress, WD/WN HEENT: PERRL/EOMI, Pharynx Normal Neck: Non Tender, Supple Respiratory: Lungs Clear, Normal Breath Sounds Cardiovascular: Regular Rate, Rhythm, No Murmur Gastrointestinal: Non Tender, Soft Extremity: Normal Range of Motion, Non Tender Neurologic/Psychiatric: Alert, Oriented x3 Skin: Normal Color, Warm/Dry Focused Exam Lactate Level 11/21/19 21:08: Lactic Acid Level 1.26 Lactic Acid Level Laboratory Tests Test 11/21/19 21:08 Lactic Acid Level 1.26 MMOL/L (0.50-2.00) Progress/Results/Core Measures Results/Orders Lab Results Laboratory Tests Test 11/21/19 18:55 11/21/19 20:10 11/21/19 21:08 11/21/19 22:05 Range/Units White Blood Count 7.4 4.3-11.0 10^3/uL Red Blood Count 4.82 4.35-5.85 10^6/uL Hemoglobin 15.0 11.5-16.0 G/DL Hematocrit 43 35-52 % Mean Corpuscular Volume 90 80-99 FL Mean Corpuscular Hemoglobin 31 25-34 PG Mean Corpuscular Hemoglobin Concent 35 32-36 G/DL Red Cell Distribution Width 13.1 10.0-14.5 % Platelet Count 218 130-400 10^3/uL Mean Platelet Volume 9.3 7.4-10.4 FL Neutrophils (%) (Auto) 57 42-75 % Lymphocytes (%) (Auto) 28 12-44 % Monocytes (%) (Auto) 8 0-12 % Eosinophils (%) (Auto) 6 0-10 % Basophils (%) (Auto) 0 0-10 % Neutrophils # (Auto) 4.2 1.8-7.8 X 10^3 Lymphocytes # (Auto) 2.1 1.0-4.0 X 10^3 Monocytes # (Auto) 0.6 0.0-1.0 X 10^3 Eosinophils # (Auto) 0.5 H 0.0-0.3 10^3/uL Basophils # (Auto) 0.0 0.0-0.1 10^3/uL Prothrombin Time 12.4 12.2-14.7 SEC INR Comment 0.9 0.8-1.4 Activated Partial Thromboplast Time 26 24-35 SEC D-Dimer 0.38 0.00-0.49 UG/ML Sodium Level 140 135-145 MMOL/L Potassium Level 3.8 3.6-5.0 MMOL/L Chloride Level 102 98-107 MMOL/L Carbon Dioxide Level 24 21-32 MMOL/L Anion Gap 14 5-14 MMOL/L Blood Urea Nitrogen 16 7-18 MG/DL Creatinine 0.86 0.60-1.30 MG/DL Estimat Glomerular Filtration Rate > 60 BUN/Creatinine Ratio 19 Glucose Level 199 H 70-105 MG/DL Calcium Level 9.9 8.5-10.1 MG/DL Corrected Calcium 9.6 8.5-10.1 MG/DL Magnesium Level 1.9 1.6-2.4 MG/DL Total Bilirubin 0.4 0.1-1.0 MG/DL Aspartate Amino Transf (AST/SGOT) 25 5-34 U/L Alanine Aminotransferase (ALT/SGPT) 41 0-55 U/L Alkaline Phosphatase 129 40-136 U/L Myoglobin 31.2 10.0-92.0 NG/ML Troponin I < 0.028 < 0.028 <0.028 NG/ML C-Reactive Protein High Sensitivity 0.32 0.00-0.50 MG/DL Total Protein 7.2 6.4-8.2 GM/DL Albumin 4.4 3.2-4.5 GM/DL Thyroid Stimulating Hormone (TSH) 1.72 0.35-4.94 UIU/ML Urine Color ALLI H Urine Clarity SL CLOUDY Urine pH 6.5 5-9 Urine Specific [place] 1.020 1.016-1.022 Urine Protein 2+ H NEGATIVE Urine Glucose (UA) TRACE H NEGATIVE Urine Ketones NEGATIVE NEGATIVE Urine Nitrite NEGATIVE NEGATIVE Urine Bilirubin 1+ H NEGATIVE Urine Urobilinogen 0.2 < = 1.0 MG/DL Urine Leukocyte Esterase NEGATIVE NEGATIVE Urine RBC (Auto) 3+ H NEGATIVE Urine RBC >100 H /HPF Urine WBC 10-25 H /HPF Urine Squamous Epithelial Cells RARE /HPF Urine Crystals PRESENT H /LPF Urine Bacteria FEW H /HPF Urine Casts NONE /LPF Urine Mucus NEGATIVE /LPF Urine Culture Indicated YES Lactic Acid Level 1.26 0.50-2.00 MMOL/L My Orders Orders - MARIALUISA PATEL MD Cbc With Automated Diff (11/21/19 19:09) Magnesium (11/21/19 19:09) Chest 1 View, Ap/Pa Only (11/21/19 19:09) Ekg Tracing (11/21/19 19:09) Comprehensive Metabolic Panel (11/21/19 19:09) Myoglobin Serum (11/21/19 19:09) Protime With Inr (11/21/19 19:) Partial Thromboplastin Time (11/21/19 19:09) O2 (11/21/19 19:09) Monitor-Rhythm Ecg Trace Only (11/21/19 19:09) Lipid Panel (11/22/19 06:00) Ed Iv/Invasive Line Start (11/21/19 19:09) Fibrin Degradation Products (11/21/19 19:09) Aspirin Chewable Tablet (Baby Aspirin Ch (11/21/19 19:15) Troponin I (11/21/19 18:55) Thyroid Stimulating Hormone (11/21/19 18:55) Ua Culture If Indicated (11/21/19 19:24) Ed Iv/Invasive Line Start (11/21/19 19:24) Lactated Ringers (Lr 1000 Ml Iv Solution (11/21/19 19:24) Lactated Ringers (Lr 1000 Ml Iv Solution (11/21/19 19:22) Urine Culture (11/21/19 20:10) Ct Abdomen/Pelvis W (11/21/19 21:02) Hs C Reactive Protein (11/21/19 21:02) Lactic Acid Analyzer (11/21/19 21:02) Blood Culture (11/21/19 21:02) Iohexol Injection (Omnipaque 350 Mg/Ml 1 (11/21/19 22:00) Received Contrast (Hold Metformin- Contr (11/21/19 22:00) Ns (Ivpb) (Sodium Chloride 0.9% Ivpb Bag (11/21/19 22:00) Troponin I (11/21/19 22:00) Ns Iv 500 Ml (Sodium Chloride 0.9%) (11/21/19 22:37) Cephalexin Capsule (Keflex Capsule) (11/21/19 22:38) Medications Given in ED Current Medications Medications Dose Ordered Sig/George Route Start Time Stop Time Status Last Admin Dose Admin Aspirin 324 mg ONCE ONCE PO 11/21/19 19:15 11/21/19 19:16 DC 11/21/19 19:15 324 MG Iohexol 100 ml ONCE ONCE IV 11/21/19 22:00 11/21/19 22:01 DC 11/21/19 22:04 92 ML Lactated Ringer's 1,000 ml @ 0 mls/hr Q0M ONCE IV 11/21/19 19:24 11/21/19 19:25 DC 11/21/19 19:27 1,000 MLS/HR Sodium Chloride 100 ml ONCE ONCE IV 11/21/19 22:00 11/21/19 22:01 DC 11/21/19 22:05 76 ML Sodium Chloride 500 ml @ 0 mls/hr Q0M ONCE IV 11/21/19 22:37 11/21/19 22:38 DC 11/21/19 22:48 500 MLS/HR Vital Signs/I&O 11/21/19 18:58 Temp 36.4 Pulse 81 Resp 20 B/P (MAP) 119/79 (92) Pulse Ox 96 O2 Delivery Room Air Blood Pressure Mean: 92 Progress Progress Note : Progress Note Seen and evaluated. IV by EMS. Labs, EKG, chest x-ray and ASA 324 mg by mouth ordered. Monitor patient. We will add thyroid studies. Patient had blood pressure 90/43 which was sustained. LR 1 L bolus and UA ordered. No significant symptoms of illness currently. Heart rate remains in the 70s. Monitor patient. 2100: UA shows a fair amount of blood in a few whites with bacteria. We will go ahead and get blood cultures and lactic acid. Given her labile blood pressure and hematuria, we will go ahead and get CT abdomen and pelvis with contrast to rule out mass as a component of this. Blood pressure currently 115/59 with heart rate of 71 and no chest pain. Monitor patient. 2229: Overall doing better. We will give a meal. CT is negative. We will get a repeat bolus of normal saline 500 mL. Blood pressure currently 120s over 80s and heart rate in the 70s. Repeat troponin ordered. We will initiate treatment for possible urinary tract infection with cephalexin for outpatient treatment. Monitor patient. 2317: Remains improved. Repeat troponin negative. Discharged home with return precautions. Patient verbalize understanding instructions and agreement with plan. Blood pressures have remained 110s to 120s systolic over the last hour. Initial ECG Impression Date: Nov 21, 2019 Initial ECG Impression Time: 18:58 Initial ECG Rate: 82 Initial ECG Rhythm: Normal Sinus Comment Sinus rhythm with normal axis. No evidence of ST elevation FL. Similar to previous of 10/21/19. Interpreted by me. Diagnostic Imaging Diagonstic Imaging: Xray Plain Films/CT/US/NM/MRI: chest [facility] [place] [place] NAME: LYNETTE [facility]IE [facility] REC#: [id number] PT STATUS: REG ER : 1965 PHYSICIAN: MARIALUISA PATEL MD ADMIT DATE: 11/21/19/ER Draft Date of Exam:11/21/19 CHEST 1 VIEW, AP/PA ONLY EXAM: CHEST 1 VIEW, AP/PA ONLY INDICATION: Palpitations. Chest pain. COMPARISON: 10/21/2019. FINDINGS: Normal heart size and pulmonary vascularity. No dense consolidation, pleural effusion or pneumothorax. No acute osseous findings. No significant change. IMPRESSION: No acute cardiopulmonary findings. Dictated on workstation # [id number] Dict: 11/21/192035 Trans: 11/21/192038 ALIYA [id number] Interpreted by: HANNAH DONALDSON MD Electronically signed by: Cieranskrystin Imaging: CT Plain Films/CT/US/NM/MRI: abdomen, pelvis Comments [facility] [place], [place] NAME: LYNETTE MARIE [facility] REC#: [id number] PT STATUS: REG ER : 1965 PHYSICIAN: MARIALUISA PATEL MD ADMIT DATE: 11/21/19/ER Signed Date of Exam:11/21/19 CT ABDOMEN/PELVIS W PROCEDURE: CT abdomen and pelvis with contrast. TECHNIQUE: Multiple contiguous axial images were obtained through the abdomen and pelvis after administration of intravenous contrast. Auto Exposure Controls were utilized during the CT exam to meet ALARA standards for radiation dose reduction. INDICATION: Hematuria. Hypertension. COMPARISON: 06/06/2019. FINDINGS: Calcified granuloma in the right lung base. Cholecystectomy. The liver, pancreas, spleen, adrenals, kidneys, collecting systems and partially opacified bladder negative. The pelvis is mildly obscured by streak artifact from a right GAIL. 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. Normal appendix. Large amount of stool throughout the colon. No evidence of bowel obstruction. No free intraperitoneal air or fluid. No lymphadenopathy. No acute osseous findings. IMPRESSION: 1. No acute CT findings in the abdomen or pelvis. 2. Large amount of stool throughout the colon compatible with constipation. Dictated by: Dictated on workstation # [id number] Dict: 11/21/192150 Trans: 11/21/192158 PJE [id number] Interpreted by: HANNAH DONALDSON MD Electronically signed by: HANNAH DONALDSON MD 11/21/192158 Departure Impression Primary Impression: Palpitations Additional Impressions: Constipation Qualified Codes: K59.00 - Constipation, unspecified Urinary tract infection Qualified Codes: N30.01 - Acute cystitis with hematuria Disposition: HOME, SELF-CARE Condition: Improved Departure-Patient Inst. Decision time for Depature: 23:20 Referrals: ROMY PULIDO MD (PCP/Family) Primary Care Physician Patient Instructions: Chest Pain (DC), Palpitations (DC), Constipation, Adult (DC), Urinary Tract Infection, Adult (DC) Add. Discharge Instructions: All discharge instructions reviewed with patient and/or family. Voiced understanding. Take medications as directed. You may take MiraLAX or the generic one capful twice daily for 3 days and then daily thereafter to keep stools soft and in normal range. Drink plenty of fluids. Follow-up with your Dr. in a few days for recheck. Return for worse pain, fever, vomiting, weakness, breathing problems or other concerns as needed. Copy Copies To 1: RJ LOMBARDO MD FACP FAC CCDS Copies To 2: ROMY PULIDO MD, TIMOTHY D MD Nov 21, 2019 19:19
[2019-11-21] MEDS ORDERED: LACTATED RINGERS 1,000 ML IV ONE ×2 (19:22→19:24)
[2019-11-21 19:23] LABS: BASOPHILS % (AUTO) 0 % (0-10); EOSINOPHILS # (AUTO) 0.5 10^3/uL (0.0-0.3); EOSINOPHILS % (AUTO) 6 % (0-10); HEMATOCRIT 43 % (35-52); LYMPHOCYTES # (AUTO) 2.1 X 10^3 (1.0-4.0); LYMPHOCYTES % (AUTO) 28 % (12-44); MEAN CORPUSCULAR HEMOGLOBIN 31 PG (25-34); MEAN CORPUSCULAR HGB CONC 35 G/DL (32-36); MEAN CORPUSCULAR VOLUME 90 FL (80-99); MEAN PLATELET VOLUME 9.3 FL (7.4-10.4); MONOCYTES # (AUTO) 0.6 X 10^3 (0.0-1.0); MONOCYTES % (AUTO) 8 % (0-12); NEUTROPHILS # (AUTO) 4.2 X 10^3 (1.8-7.8); NEUTROPHILS % (AUTO) 57 % (42-75); PLATELET COUNT 218 10^3/uL (130-400); RED CELL DISTRIBUTION WIDTH 13.1 % (10.0-14.5); WHITE BLOOD COUNT 7.4 10^3/uL (4.3-11.0)
[2019-11-21 19:27] LABS: INR 0.9 (0.8-1.4); PROTHROMBIN TIME PATIENT 12.4 SEC (12.2-14.7)
[2019-11-21 19:34] LABS: ALANINE AMINOTRANSFERASE 41 U/L (0-55); ALBUMIN 4.4 GM/DL (3.2-4.5); ALKALINE PHOSPHATASE 129 U/L (40-136); BILIRUBIN,TOTAL 0.4 MG/DL (0.1-1.0); BUN/CREATININE RATIO 19; CALCIUM 9.9 MG/DL (8.5-10.1); CARBON DIOXIDE 24 MMOL/L (21-32); CHLORIDE 102 MMOL/L (98-107); CREATININE SERUM 0.86 MG/DL (0.60-1.30); GFR ESTIMATED > 60; GLUCOSE 199 MG/DL (70-105); MAGNESIUM 1.9 MG/DL (1.6-2.4); POTASSIUM 3.8 MMOL/L (3.6-5.0); SODIUM 140 MMOL/L (135-145); TOTAL PROTEIN 7.2 GM/DL (6.4-8.2)
[2019-11-21 20:21] LABS: CLARITY,URINE SL CLOUDY; COLOR,URINE AMBER; GLUCOSE, URINE (UA) TRACE (NEGATIVE); KETONES,URINE NEGATIVE (NEGATIVE); LEUKOCYTE ESTERASE ,URINE NEGATIVE (NEGATIVE); NITRITE,URINE NEGATIVE (NEGATIVE); PH,URINE 6.5 (5-9); PROTEIN,URINE 2+ (NEGATIVE)
--- NOTE | 2019-11-21 20:28 | NUR ---
after 500 ml of fluid admin the pt's blood pressure is 121/74 vs 91/46
[2019-11-21 20:31] LABS: BACTERIA,URINE FEW /HPF; BILIRUBIN,URINE 1+ (NEGATIVE); RBC,URINE >100 /HPF
[2019-11-21 20:32] LABS: SQUAMOUS EPITHELIAL CELL,UR RARE /HPF
--- NOTE | 2019-11-21 20:39 | Diagnostic Imaging Report ---
EXAM: CHEST 1 VIEW, AP/PA ONLY INDICATION: Palpitations. Chest pain. COMPARISON: 10/21/2019. FINDINGS: Normal heart size and pulmonary vascularity. No dense consolidation, pleural effusion or pneumothorax. No acute osseous findings. No significant change. IMPRESSION: No acute cardiopulmonary findings. Dictated by: Dictated on workstation # [id number]
--- NOTE | 2019-11-21 21:57 | Diagnostic Imaging Report ---
PROCEDURE: CT abdomen and pelvis with contrast. TECHNIQUE: Multiple contiguous axial images were obtained through the abdomen and pelvis after administration of intravenous contrast. Auto Exposure Controls were utilized during the CT exam to meet ALARA standards for radiation dose reduction. INDICATION: Hematuria. Hypertension. COMPARISON: 06/06/2019. FINDINGS: Calcified granuloma in the right lung base. Cholecystectomy. The liver, pancreas, spleen, adrenals, kidneys, collecting systems and partially opacified bladder negative. The pelvis is mildly obscured by streak artifact from a right GAIL. 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. Normal appendix. Large amount of stool throughout the colon. No evidence of bowel obstruction. No free intraperitoneal air or fluid. No lymphadenopathy. No acute osseous findings. IMPRESSION: 1. No acute CT findings in the abdomen or pelvis. 2. Large amount of stool throughout the colon compatible with constipation. Dictated by: Dictated on workstation # [id number]
[2019-11-21] MEDS ORDERED: HOLD METFORMIN - RECEIVED CONTRAST 20 ML VIAL IV SCH (22:00)
[2019-11-21] MEDS ORDERED: NS 100 ML (IVPB) BAG IV ONE (22:00)
[2019-11-21] MEDS ORDERED: IOHEXOL 350 MG/ML 100 ML (OMNIPAQUE 350) VIAL IV ONE (22:00)
[2019-11-21] MEDS ORDERED: NS IV 500 ML 500 ML IV ONE (22:37)
[2019-11-21] MEDS ORDERED: CEPHALEXIN 250 MG (KEFLEX) CAP PO STA (22:38)
[2019-11-22] MEDS ORDERED: CEPH500T PO (00:30)
[2019-11-22 00:35] VITALS: BP 168/88
== END 2019-11-22 00:36 | disposition home or self-care (01) ==
LOC: EDUNIT# 18:58 → ER 18:59
DX: R00.2 Palpitations (principal); K59.00 Constipation, unspecified; N39.0 Urinary tract infection, site not specified; I10 Essential (primary) hypertension; E11.9 Type 2 diabetes mellitus without complications; J43.9 Emphysema, unspecified; E78.00 Pure hypercholesterolemia, unspecified; G43.909 Migraine, unspecified, not intractable, without status migrainosus; K21.9 Gastro-esophageal reflux disease without esophagitis; F41.9 Anxiety disorder, unspecified; F17.210 Nicotine dependence, cigarettes, uncomplicated; Z88.2 Allergy status to sulfonamides; Z88.5 Allergy status to narcotic agent; Z79.84 Long term (current) use of oral hypoglycemic drugs; Z90.710 Acquired absence of both cervix and uterus
CPT/HCPCS: 36415; 71045; 74177; 80053; 81000; 83605; 83735; 83874; 84443; 84484; 85025; 85379; 85610; 85730; 86141; 87040; 87088; 93005; 93041; 96360; 96361

== ENCOUNTER 2020-12-02 10:09 | Emergency (ER) | payer MEDICARE, MEDICAID ==
[~2020-12-02] VITALS: Ht 154 cm; Wt 72.0 kg
[~2020-12-02 10:09] MED LIST changes: +CEPH500T PO; +METF-865 PO; -METF500T19 PO; -PANT40TA3; +PANT40TA52
[2020-12-02 10:42] LABS: BILIRUBIN,URINE NEGATIVE (NEGATIVE); CLARITY,URINE CLEAR; COLOR,URINE YELLOW; GLUCOSE, URINE (UA) 3+ (NEGATIVE); KETONES,URINE NEGATIVE (NEGATIVE); LEUKOCYTE ESTERASE ,URINE NEGATIVE (NEGATIVE); NITRITE,URINE NEGATIVE (NEGATIVE); PH,URINE 5.5 (5-9); PROTEIN,URINE NEGATIVE (NEGATIVE)
[2020-12-02] MEDS ORDERED: inSUlin (REGULAR) HUMAN 1 UNIT/0.01 ML (CHARGE PER UNIT) SC ONE ×2 (10:45→11:45)
[2020-12-02] MEDS ORDERED: NS IV 1000 ML 1,000 ML IV ONE (10:45)
[2020-12-02 10:48] LABS: BACTERIA,URINE NEGATIVE /HPF
[2020-12-02 10:55] LABS: BASOPHILS # (AUTO) 0.1 10^3/uL (0.0-0.1); BASOPHILS % (AUTO) 1 % (0-10); EOSINOPHILS # (AUTO) 0.6 10^3/uL (0.0-0.3); EOSINOPHILS % (AUTO) 7 % (0-10); HEMATOCRIT 44 % (35-52); HEMOGLOBIN 15.2 g/dL (11.5-16.0); LYMPHOCYTES # (AUTO) 2.6 10^3/uL (1.0-4.0); LYMPHOCYTES % (AUTO) 31 % (12-44); MEAN CORPUSCULAR HEMOGLOBIN 31 pg (25-34); MEAN CORPUSCULAR HGB CONC 35 g/dL (32-36); MEAN CORPUSCULAR VOLUME 88 fL (80-99); MEAN PLATELET VOLUME 9.8 fL (9.0-12.2); MONOCYTES # (AUTO) 0.6 10^3/uL (0.0-1.0); MONOCYTES % (AUTO) 7 % (0-12); NEUTROPHILS # (AUTO) 4.7 10^3/uL (1.8-7.8); NEUTROPHILS % (AUTO) 55 % (42-75); PLATELET COUNT 223 10^3/uL (130-400); WHITE BLOOD COUNT 8.5 10^3/uL (4.3-11.0)
[2020-12-02 11:10] LABS: ALBUMIN 4.2 GM/DL (3.2-4.5); CHLORIDE 97 MMOL/L (98-107); POTASSIUM 4.1 MMOL/L (3.6-5.0); SODIUM 132 MMOL/L (135-145)
[2020-12-02 11:11] LABS: CALCIUM 9.8 MG/DL (8.5-10.1)
[2020-12-02 11:12] LABS: GLUCOSE 376 MG/DL (70-105)
[2020-12-02 11:13] LABS: TOTAL PROTEIN 7.1 GM/DL (6.4-8.2)
[2020-12-02 11:14] LABS: CARBON DIOXIDE 20 MMOL/L (21-32)
[2020-12-02 11:15] LABS: BILIRUBIN,TOTAL 0.6 MG/DL (0.1-1.0)
[2020-12-02 11:16] LABS: ALKALINE PHOSPHATASE 145 U/L (40-136); GFR ESTIMATED > 60
[2020-12-02 11:17] LABS: BUN/CREATININE RATIO 26
[2020-12-02 11:19] LABS: ALANINE AMINOTRANSFERASE 81 U/L (0-55)
--- NOTE | 2020-12-02 11:55 | NUR ---
PT COMPLAINS OF NAUSEA. DR NOTIFIED.
[2020-12-02] MEDS ORDERED: ONDANSETRON 4 MG/2 ML (SDV) Z0FRAN IVP ONE (12:00)
--- NOTE | 2020-12-02 12:26 | NUR ---
IN TALKING TO THE PT AT THIS TIME.
--- NOTE | 2020-12-02 12:32 | ED General ---
General Chief Complaint: Glucose Problems Stated Complaint: HIGH BLOOD SUGAR Nursing Triage Note: ARRIVED VIA AMB WITH COMPLAINTS OF GLUCOSE BEING IN THE 440'S X2 DAYS. Nursing Sepsis Screen: No Definite Risk Source of Information: Patient Exam Limitations: No Limitations History of Present Illness Date Seen by Provider: Dec 02, 2020 Time Seen by Provider: 10:15 Initial Comments Patient presents ER by private conveyance chief complaint of high blood sugar she is noticed for the past 2 days her sugar has been over 400. Typically she only checks it 3 times a week and takes Glucophage 1 g twice a day. She recently was told to start Jardiance 2 days ago. She follows with Dr. Pulido. She is not on insulin. Her last A1c was around 8. She is not having any nausea vomiting diarrhea fevers chills cough shortness of air. She had her gallbladder out no abdominal pain. Allergies and Home Medications Allergies Coded Allergies: Sulfa (Sulfonamide Antibiotics) (Verified Allergy, Unknown, 01/30/19) hydrocodone (Verified Adverse Reaction, Unknown, SICK TO STOMACH, 01/30/19) Home Medications Cephalexin 500 Mg Tablet, 500 MG PO BID Prescribed by: MARIALUISA PATEL on 11/22/19 0030 Empagliflozin 10 Mg Tablet, 10 MG PO DAILY, (Reported) Magnesium Oxide 400 Mg Capsule, 400 MG PO DAILY, (Reported) Metformin HCl 1,000 Mg Tablet, 1,000 MG PO BID, (Reported) Metoprolol Succinate 50 Mg Tab.er.24h, 50 MG PO DAILY, (Reported) Patient Home Medication List Home Medication List Reviewed: Yes Review of Systems Review of Systems Constitutional: No chills, No diaphoresis EENTM: No ear discharge, No ear pain Respiratory: No cough, No short of breath Cardiovascular: No chest pain, No palpitations Gastrointestinal: No abdominal pain, No constipation, No diarrhea, No nausea, No vomiting 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: No discharge, No dysuria Musculoskeletal: No back pain, No joint pain Skin: No pruritus, No rash All Other Systems Reviewed Negative Unless Noted: Yes Past Ajyfdjt-Dyturo-Gziist Hx Patient Social History Alcohol Use: Denies Use Drug of Choice: BENZODIAZEPINE ABUSE Smoking Status: Former Smoker Type Used: Cigarettes Former Smoker, Quit: Jan 28, 2018 2nd Hand Smoke Exposure: Yes Recent Infectious Disease Expo: No Recent Hopitalizations: No Immunizations Up To Date Tetanus Booster (TDap): Unknown PED Vaccines UTD: No Seasonal Allergies Seasonal Allergies: No Past Medical History Surgeries: Yes Section, Gallbladder, 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, Joint Replacement, Orthopedic, Rectal Respiratory: Yes COPD, Emphysema Cardiac: Yes High Cholesterol, Hypertension, Palpitations Neurological: Yes Headaches /Migraines 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 Disorders: No 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 Sexually Transmitted Disease: No HIV/AIDS: No 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: No Gastrointestinal: Yes (RECTAL BLEEDING) Gastroesophageal Reflux Musculoskeletal: Yes Arthritis, Scoliosis, Chronic Back Pain, Fractures Endocrine: Yes Diabetes, Non-Insulin dep HEENT: Yes (DENTURES) Cancer: No Psychosocial: Yes Sleep Difficulties, Anxiety, Bipolar, Depression Integumentary: No Blood Disorders: No Adverse Reaction/Blood Tranf: No Family Medical History Psychiatric Problems Physical Exam Vital Signs Vital Signs - First Documented 12/02/20 10:30 Temp 36.2 Pulse 81 Resp 16 B/P (MAP) 134/99 (111) Pulse Ox 96 O2 Delivery Room Air Capillary Refill : Less Than 3 Seconds Height, Weight, BMI Height: 5'1.00" Weight: 162lbs. 0.0oz. 73.124404hk; 30.00 BMI Method:Stated General Appearance: No Apparent Distress, Mild Distress Eyes: Bilateral Eye Normal Inspection, Bilateral Eye PERRL, Bilateral Eye EOMI HEENT: PERRL/EOMI, TMs Normal, Pharynx Normal, Moist Mucous Membranes Neck: Full Range of Motion, Normal Inspection, Non Tender, Supple Respiratory: Lungs Clear, Normal Breath Sounds, No Accessory Muscle Use, No Respiratory Distress Cardiovascular: Regular Rate, Rhythm, No Edema, Normal Peripheral Pulses Gastrointestinal: Normal Bowel Sounds, Non Tender, Soft Extremity: Normal Capillary Refill, Normal Inspection, No Pedal Edema Neurologic/Psychiatric: Alert, Oriented x3, No Motor/Sensory Deficits Skin: Normal Color, Warm/Dry Progress/Results/Core Measures Suspected Sepsis Recent Fever Within 48 Hours: No Infection Criteria Present: Suspected New Infection New/Unexplained Altered Menta: No Sepsis Screen: No Definite Risk SIRS Temperature: Pulse: 81 Respiratory Rate: 16 Laboratory Tests 12/02/20 10:45: White Blood Count 8.5 Blood Pressure 134 /99 Mean: 111 Laboratory Tests 12/02/20 10:45: Creatinine 0.80, Platelet Count 223, Total Bilirubin 0.6 Results/Orders Lab Results Laboratory Tests Test 12/02/20 10:34 12/02/20 10:37 12/02/20 10:45 12/02/20 11:43 Range/Units Glucometer 370 H 297 H 70-110 MG/DL Urine Color YELLOW Urine Clarity CLEAR Urine pH 5.5 5-9 Urine Specific Crawford <=1.005 1.016-1.022 Urine Protein NEGATIVE NEGATIVE Urine Glucose (UA) 3+ H NEGATIVE Urine Ketones NEGATIVE NEGATIVE Urine Nitrite NEGATIVE NEGATIVE Urine Bilirubin NEGATIVE NEGATIVE Urine Urobilinogen 0.2 < = 1.0 MG/DL Urine Leukocyte Esterase NEGATIVE NEGATIVE Urine RBC (Auto) NEGATIVE NEGATIVE Urine RBC NONE /HPF Urine WBC NONE /HPF Urine Squamous Epithelial Cells 5-10 /HPF Urine Crystals NONE /LPF Urine Bacteria NEGATIVE /HPF Urine Casts NONE /LPF Urine Mucus NEGATIVE /LPF Urine Culture Indicated NO White Blood Count 8.5 4.3-11.0 10^3/uL Red Blood Count 4.97 3.80-5.11 10^6/uL Hemoglobin 15.2 11.5-16.0 g/dL Hematocrit 44 35-52 % Mean Corpuscular Volume 88 80-99 fL Mean Corpuscular Hemoglobin 31 25-34 pg Mean Corpuscular Hemoglobin Concent 35 32-36 g/dL Red Cell Distribution Width 12.2 10.0-14.5 % Platelet Count 223 130-400 10^3/uL Mean Platelet Volume 9.8 9.0-12.2 fL Immature Granulocyte % (Auto) 0 % Neutrophils (%) (Auto) 55 42-75 % Lymphocytes (%) (Auto) 31 12-44 % Monocytes (%) (Auto) 7 0-12 % Eosinophils (%) (Auto) 7 0-10 % Basophils (%) (Auto) 1 0-10 % Neutrophils # (Auto) 4.7 1.8-7.8 10^3/uL Lymphocytes # (Auto) 2.6 1.0-4.0 10^3/uL Monocytes # (Auto) 0.6 0.0-1.0 10^3/uL Eosinophils # (Auto) 0.6 H 0.0-0.3 10^3/uL Basophils # (Auto) 0.1 0.0-0.1 10^3/uL Immature Granulocyte # (Auto) 0.0 0.0-0.1 10^3/uL Sodium Level 132 L 135-145 MMOL/L Potassium Level 4.1 3.6-5.0 MMOL/L Chloride Level 97 L 98-107 MMOL/L Carbon Dioxide Level 20 L 21-32 MMOL/L Anion Gap 15 H 5-14 MMOL/L Blood Urea Nitrogen 21 H 7-18 MG/DL Creatinine 0.80 0.60-1.30 MG/DL Estimat Glomerular Filtration Rate > 60 BUN/Creatinine Ratio 26 Glucose Level 376 H 70-105 MG/DL Calcium Level 9.8 8.5-10.1 MG/DL Corrected Calcium 9.6 8.5-10.1 MG/DL Total Bilirubin 0.6 0.1-1.0 MG/DL Aspartate Amino Transf (AST/SGOT) 32 5-34 U/L Alanine Aminotransferase (ALT/SGPT) 81 H 0-55 U/L Alkaline Phosphatase 145 H 40-136 U/L Total Protein 7.1 6.4-8.2 GM/DL Albumin 4.2 3.2-4.5 GM/DL Lipase 37 8-78 U/L Test 12/02/20 12:36 Range/Units Glucometer 232 H 70-110 MG/DL My Orders Orders - ROE CULP Ua Culture If Indicated (12/02/20 10:17) Urine Bedside (12/02/20 10:17) Accucheck Stat ONCE (12/02/20 10:17) Cbc With Automated Diff (12/02/20 10:45) Comprehensive Metabolic Panel (12/02/20 10:45) Ed Iv/Invasive Line Start (12/02/20 10:45) Ns Iv 1000 Ml (Sodium Chloride 0.9%) (12/02/20 10:45) Insulin (Regular) Human (Novolin R (Per (12/02/20 10:45) Insulin Determir (Per Unit) (Levemir (Pe (12/02/20 10:45) Insulin (Regular) Human (Novolin R (Per (12/02/20 11:45) Accucheck Stat ONCE (12/02/20 11:44) Ondansetron Injection (Zofran Injectio (12/02/20 12:00) Accucheck Stat ONCE (12/02/20 12:20) Lipase (12/02/20 12:26) Medications Given in ED Current Medications Medications Dose Ordered Sig/George Route Start Time Stop Time Status Last Admin Dose Admin Insulin Detemir 10 unit ONCE ONCE SQ 12/02/20 10:45 12/02/20 10:47 DC 12/02/20 11:03 10 UNIT Insulin Human Regular 10 unit ONCE ONCE SC 12/02/20 10:45 12/02/20 10:47 DC 12/02/20 11:04 10 UNIT Insulin Human Regular 10 unit ONCE ONCE SC 12/02/20 11:45 12/02/20 11:46 DC 12/02/20 11:53 10 UNIT Ondansetron HCl 4 mg ONCE ONCE IVP 12/02/20 12:00 12/02/20 12:01 DC 12/02/20 11:59 4 MG Sodium Chloride 1,000 ml @ 0 mls/hr Q0M ONCE IV 12/02/20 10:45 12/02/20 10:47 DC 12/02/20 11:05 1,000 MLS/HR Vital Signs/I&O 12/02/20 10:30 Temp 36.2 Pulse 81 Resp 16 B/P (MAP) 134/99 (111) Pulse Ox 96 O2 Delivery Room Air Capillary Refill : Less Than 3 Seconds Blood Pressure Mean: 111 Point of Care Testing Finger Stick Blood Glucose: 297 Progress Note : Time: 12:28 Progress Note 10 units of Levemir and 10 units of regular insulin were given. This brought her sugar down by about 100 points. We will give her another 10 units of regular insulin subcu to try and get her down south of 200 and then send her home on a prescription for Levemir with close follow-up with Dr. Pulido. We gave her a liter of fluids as she appears little dehydrated and her salts are little depleted by her hyperglycemia. She can continue her other medications. Did counseling on hypoglycemia. Patient started have a little nausea and queasy feeling with the feeling of a mild pain in her epigastric region after the second dose of insulin. Will add a lipase to her labs and let her finish her IV fluids and reexamine her. Departure Impression Primary Impression: Hyperglycemia Disposition: HOME, SELF-CARE Condition: Improved Departure-Patient Inst. Decision time for Depature: 13:29 Referrals: ROMY PULIDO MD (PCP/Family) Primary Care Physician Patient Instructions: Diabetes Type 2 (DC) Add. Discharge Instructions: We are going to start you on a medication called Levemir. 10 units twice a day until you see your primary care doctor. Make an appointment with your primary care doctor within the next 1 to 2 weeks max. Check your blood sugar every morning fasting before you eat. Hold your insulin if it is less than 70. If you have headache, cool clammy skin, sweating, confusion or other worrisome symptoms then immediately check your blood sugar as it could have gone low. You may continue taking your other medications as prescribed. All discharge instructions reviewed with patient and/or family. Voiced understanding. Scripts Insulin Determir (Levemir) 1,000 Units/10 Ml Soln 10 UNITS SQ BID for 14 Days, #1 EA 0 Refills Prov: REO CULP 12/02/20 Copy Copies To 1: SHELBY PLATA DO ROE CULP Dec 02, 2020 12:32
--- NOTE | 2020-12-02 14:01 | NUR ---
IN TALKING TO THE PT AT THIS TIME.
[2020-12-02] MEDS ORDERED: INSU100V5 SQ (14:02)
--- NOTE | 2020-12-02 14:10 | NUR ---
EDUCATION GIVEN ON HOW TO GIVE AND DRAW UP A INSULIN INJECTION. PT VERBALIZED AND DEMONSTRATED PROCESS.
[2020-12-02 14:13] VITALS: BP 112/76
== END 2020-12-02 14:13 | disposition home or self-care (01) ==
LOC: EDUNIT# 10:09 → ER 10:11
DX: E11.65 Type 2 diabetes mellitus with hyperglycemia (principal); I10 Essential (primary) hypertension; Z87.891 Personal history of nicotine dependence; Z88.2 Allergy status to sulfonamides; Z88.5 Allergy status to narcotic agent; Z79.84 Long term (current) use of oral hypoglycemic drugs
CPT/HCPCS: 36415; 80053; 81000; 82962; 83690; 84703; 85025

== ENCOUNTER → 2020-12-28 | Outpatient (CLI) | payer MEDICARE, MEDICAID ==
[~2020-12-28] MED LIST changes: +INSU100V5 SQ
--- NOTE | 2020-12-28 15:53 | Diagnostic Imaging Report ---
INDICATION: Routine screening. COMPARISON: 10/12/2017 and 06/07/2016. TECHNIQUE: 2D and 3D bilateral screening mammography was performed with CAD. FINDINGS: Both breasts are heterogeneously dense, limiting sensitivity of mammography. The parenchymal pattern is stable. There are benign calcifications bilaterally. No mass or malignant appearing microcalcifications are seen. The axillae are unremarkable. IMPRESSION: No mammographic features suspicious for malignancy are identified. ACR BI-RADS Category 2: Benign findings. Result letter will be mailed to the patient. Note: At least 10% of breast cancer is not imaged by mammography. Dictated by: Dictated on workstation # [id number]
== END ==
LOC: RAD 13:30
PROVIDERS: ATTEND Family Medicine
DX: Z12.31 Encounter for screening mammogram for malignant neoplasm of breast (principal)
CPT/HCPCS: 77063; 77067

== ENCOUNTER 2021-06-23 22:15 | Emergency (ER) | payer MEDICARE, MEDICAID ==
[2021-06-23 22:27] VITALS: BP 132/86
[2021-06-23] MEDS ORDERED: NAPROXEN 250 MG (NAPROSYN) TABLET PO STA (22:44)
--- NOTE | 2021-06-23 22:47 | ED Upper Extremity ---
General Chief Complaint: Upper Extremity Stated Complaint: L WRIST PAIN History of Present Illness Date Seen by Provider: Jun 23, 2021 Time Seen by Provider: 22:30 Initial Comments 55-year-old female presents for left shoulder and arm pain that hurts intermittently throughout different muscle patterns. She has a history of scoliosis. She has been seen here in the past for left upper extremity symptoms. She has not taken any medicine for her symptoms. She denies any chest pain. She is diabetic no history of CAD. She has not seen her primary care provider for this. 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 Onset: other (several year history, no acute injuries or changes) Pain/Injury Location: left shoulder, left arm Method of Injury: unknown Allergies and Home Medications Allergies Coded Allergies: Sulfa (Sulfonamide Antibiotics) (Verified Allergy, Unknown, 01/30/19) hydrocodone (Verified Adverse Reaction, Unknown, SICK TO STOMACH, 01/30/19) Home Medications Cephalexin 500 Mg Tablet, 500 MG PO BID Prescribed by: MARIALUISA PATEL on 11/22/19 0030 Empagliflozin 10 Mg Tablet, 10 MG PO DAILY, (Reported) Insulin Determir 1,000 Units/10 Ml Soln, 10 UNITS SQ BID Prescribed by: ROE CULP on 12/02/20 1402 Magnesium Oxide 400 Mg Capsule, 400 MG PO DAILY, (Reported) Metformin HCl 1,000 Mg Tablet, 1,000 MG PO BID, (Reported) Metoprolol Succinate 50 Mg Tab.er.24h, 50 MG PO DAILY, (Reported) Naproxen 500 Mg Tablet, 500 MG PO BID Prescribed by: MANUEL WAKEFIELD on 06/23/21 2252 Patient Home Medication List Home Medication List Reviewed: Yes Review of Systems Constitutional: no symptoms reported, see HPI Musculoskeletal: see HPI, muscle pain (Left UE), neck pain All Other Systems Reviewed Negative Unless Noted: Yes Past Hxvinmq-Mqigeb-Icdcpd Hx Immunizations Up To Date Tetanus Booster (TDap): Unknown PED Vaccines UTD: No Seasonal Allergies Seasonal Allergies: No Past Medical History Surgeries: Yes Section, Gallbladder, 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, Joint Replacement, Orthopedic, Rectal Respiratory: Yes COPD, Emphysema Cardiac: Yes High Cholesterol, Hypertension, Palpitations Neurological: Yes Headaches /Migraines 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 Disorders: 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 Sexually Transmitted Disease: No HIV/AIDS: No 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: No Gastrointestinal: Yes (RECTAL BLEEDING) Gastroesophageal Reflux Musculoskeletal: Yes Arthritis, Scoliosis, Chronic Back Pain, Fractures Endocrine: Yes Diabetes, Non-Insulin dep HEENT: Yes (DENTURES) Cancer: No Psychosocial: Yes Sleep Difficulties, Anxiety, Bipolar, Depression Integumentary: No Blood Disorders: No Adverse Reaction/Blood Tranf: No Family Medical History Reviewed Nursing Family Hx Psychiatric Problems Physical Exam Vital Signs Vital Signs - First Documented 06/23/21 22:27 Pulse 76 Resp 16 B/P (MAP) 132/86 (101) Pulse Ox 97 O2 Delivery Room Air Capillary Refill : Height, Weight, BMI Height: 5'1.00" Weight: 162lbs. 0.0oz. 73.700425qk; 30.00 BMI Method:Stated General Appearance: WD/WN, no apparent distress, other (patient rambles and complaints change regularly through the visit. ) Neck: non-tender, full range of motion, supple, normal inspection Cardiovascular: normal peripheral pulses, regular rate, rhythm, no edema Respiratory: chest non-tender, lungs clear, normal breath sounds Back: normal inspection, no CVA tenderness, no vertebral tenderness Shoulder: normal inspection, no evidence of injury, normal ROM; No bone tenderness; pain, soft tissue tenderness Elbow/Forearm: normal inspection, non-tender, no evidence of injury, normal ROM, Left Wrist: Yes normal inspection, Yes normal ROM Hand: normal inspection, non-tender, Left Neurologic/Psychiatric: no motor/sensory deficits, alert, normal mood/affect Skin: normal color, warm/dry Full range of motion to left shoulder, negative apprehension and impingement. Power 5/5 biceps, triceps and external rotators. Progress/Results/Core Measures Results/Orders My Orders Orders - MANUEL WAKEFIELD Naproxen Tablet (Naprosyn Tablet) (06/23/21 22:44) Vital Signs/I&O 06/23/21 22:27 Pulse 76 Resp 16 B/P (MAP) 132/86 (101) Pulse Ox 97 O2 Delivery Room Air Departure Impression Primary Impression: Left shoulder pain Qualified Codes: M25.512 - Pain in left shoulder; G89.29 - Other chronic pain Disposition: 01 HOME, SELF-CARE Condition: Stable Departure-Patient Inst. Decision time for Depature: 22:45 Referrals: ROMY PULIDO MD (PCP/Family) Primary Care Physician Patient Instructions: Shoulder Pain (DC) Add. Discharge Instructions: Alternate heat and ice to your left shoulder for 20 minutes every 2 hours while awake. Take Naprosyn as prescribed. You may take Tylenol 650 mg every 8 hours. Follow-up with Dr. Pulido if your symptoms are not improving or worsen. Return to the emergency department for new, urgent healthcare needs. All discharge instructions reviewed with patient and/or family. Voiced understa nding. Scripts Naproxen (Naprosyn) 500 Mg Tablet 500 MG PO BID, #30 TAB 0 Refills Prov: MANUEL WAKEFIELD 06/23/21 Copy Copies To 1: ROMY PULIDO MD, AMY ARNP Jun 23, 2021 22:47
[2021-06-23] MEDS ORDERED: NAPR-1071 PO (22:52)
[2021-06-23] MEDS ORDERED: NAPROXEN 250 MG (NAPROSYN) TABLET PO ONE (22:59)
== END 2021-06-23 23:10 | disposition home or self-care (01) ==
LOC: EDUNIT# 22:15 → ER 22:18
DX: M25.512 Pain in left shoulder (principal); I10 Essential (primary) hypertension; E11.9 Type 2 diabetes mellitus without complications; J44.9 Chronic obstructive pulmonary disease, unspecified; Z79.84 Long term (current) use of oral hypoglycemic drugs; Z79.899 Other long term (current) drug therapy
CPT/HCPCS: 99283

== ENCOUNTER 2022-04-10 17:27 | Emergency (ER) | payer MEDICARE, MEDICAID ==
[~2022-04-10] VITALS: Ht 155 cm; Wt 73.0 kg
[~2022-04-10 17:27] MED LIST changes: +CYCL10TA25 PO; +NAPR-1071 PO; +OMEP20TA56 PO; -OMEP20TA7 PO
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
[2022-04-10] MEDS ORDERED: fentaNYL INJ 100 MCG/2 ML AMP IVP ONE (17:45)
[2022-04-10] MEDS ORDERED: ONDANSETRON 4 MG/2 ML (SDV) Z0FRAN IVP ONE ×2 (17:45→20:15)
[2022-04-10] MEDS ORDERED: LACTATED RINGERS 1,000 ML IV ONE ×2 (17:45→18:57)
[2022-04-10 17:46] LABS: BASOPHILS % (AUTO) 1 % (0-10); EOSINOPHILS # (AUTO) 0.4 10^3/uL (0.0-0.3); EOSINOPHILS % (AUTO) 5 % (0-10); HEMATOCRIT 42 % (35-52); HEMOGLOBIN 14.4 g/dL (11.5-16.0); LYMPHOCYTES # (AUTO) 2.5 10^3/uL (1.0-4.0); LYMPHOCYTES % (AUTO) 30 % (12-44); MEAN CORPUSCULAR HEMOGLOBIN 30 pg (25-34); MEAN CORPUSCULAR HGB CONC 34 g/dL (32-36); MEAN CORPUSCULAR VOLUME 89 fL (80-99); MONOCYTES # (AUTO) 0.5 10^3/uL (0.0-1.0); MONOCYTES % (AUTO) 7 % (0-12); NEUTROPHILS # (AUTO) 4.9 10^3/uL (1.8-7.8); NEUTROPHILS % (AUTO) 58 % (42-75); PLATELET COUNT 231 10^3/uL (130-400); WHITE BLOOD COUNT 8.3 10^3/uL (4.3-11.0)
[2022-04-10 17:59] LABS: ALBUMIN 3.9 GM/DL (3.2-4.5); POTASSIUM 3.7 MMOL/L (3.6-5.0)
[2022-04-10 18:00] LABS: CALCIUM 9.2 MG/DL (8.5-10.1)
[2022-04-10 18:02] LABS: TOTAL PROTEIN 6.6 GM/DL (6.4-8.2)
[2022-04-10 18:03] LABS: BILIRUBIN,TOTAL 0.5 MG/DL (0.1-1.0)
[2022-04-10 18:05] LABS: CREATININE SERUM 0.67 MG/DL (0.60-1.30)
--- NOTE | 2022-04-10 18:10 | Diagnostic Imaging Report ---
INDICATION: Chest injury from a fall EXAM: Portable chest at 6:06 PM FINDINGS: The heart size and pulmonary vascularity are normal. Lungs are clear. There are no effusions or pneumothoraces. IMPRESSION: No acute abnormalities in the chest. Dictated by: Dictated on workstation # [id number]
--- NOTE | 2022-04-10 18:16 | Diagnostic Imaging Report ---
EXAMINATION: Right hip unilateral 2 or 3 views (w/pelvis when done) HISTORY: Pain after fall. COMPARISON: None available. FINDINGS: There is a superior dislocation of the femoral head prosthesis in relation to the acetabulum. No fractures identified, postreduction imaging recommended. IMPRESSION: 1. Dislocation of the prosthesis. Dictated by: Dictated on workstation # [id number]
[2022-04-10] MEDS ORDERED: morphine INJ 10 MG/ML 1ML (SYR OR VIAL) IVP STA (18:20)
[2022-04-10 18:52] LABS: BILIRUBIN,URINE NEGATIVE (NEGATIVE); CLARITY,URINE CLEAR; COLOR,URINE YELLOW; GLUCOSE, URINE (UA) NEGATIVE (NEGATIVE); KETONES,URINE NEGATIVE (NEGATIVE); LEUKOCYTE ESTERASE ,URINE NEGATIVE (NEGATIVE); NITRITE,URINE NEGATIVE (NEGATIVE); PH,URINE 6.5 (5-9); PROTEIN,URINE NEGATIVE (NEGATIVE)
[2022-04-10] MEDS ORDERED: fentaNYL INJ 100 MCG/2 ML AMP ONE (19:00)
[2022-04-10] MEDS ORDERED: MIDAZOLAM 10 MG/2 ML (VERSED) VIAL IVP PRN (19:00)
[2022-04-10] MEDS ORDERED: DIAZEPAM INJ 10 MG/2 ML (VALIUM) SYR IVP ONE (19:00)
[2022-04-10] MEDS ORDERED: KETAMINE HCL 100 MG/ML 5 ML VIAL IV ONE (19:00)
[2022-04-10 19:04] LABS: BACTERIA,URINE NEGATIVE /HPF
[2022-04-10 19:05] LABS: AMPHETAMINE SCREEN, URINE NEGATIVE (NEGATIVE); BARBITURATE SCREEN URINE NEGATIVE (NEGATIVE); BENZODIAZEPINES SCREEN URINE NEGATIVE (NEGATIVE); CANNABINOID SCREEN, URINE NEGATIVE (NEGATIVE); COCAINE SCREEN URINE NEGATIVE (NEGATIVE); METHADONE STAT NEGATIVE (NEGATIVE); OPIATE SCREEN URINE POSITIVE (NEGATIVE); OXYCODONE STAT NEGATIVE (NEGATIVE); PROPOXYPHENE STAT NEGATIVE (NEGATIVE); TRICYCLIC ANTIDEPRESSANTS SCRE NEGATIVE (NEGATIVE)
--- NOTE | 2022-04-10 19:32 | Diagnostic Imaging Report ---
INDICATION: Right hip pain AP view of the right hip shows postoperative change from right hip arthroplasty. There is no evidence of acute fracture or loosening. IMPRESSION: Unremarkable AP view of the right hip. Dictated by: Dictated on workstation # [id number]
[2022-04-10] MEDS ORDERED: NAPR500T8 PO (20:14)
[2022-04-10] MEDS ORDERED: TRAM-42 PO (20:14)
[2022-04-10] MEDS ORDERED: RX-NAPROXEN (NAPROSYN) 250 MG TAB PPK#4 PO STA (20:15)
[2022-04-10 21:30] VITALS: BP 118/73
== END 2022-04-10 21:30 | disposition home or self-care (01) ==
LOC: EDUNIT# 17:27 → ER 17:28
DX: T84.020A Dislocation of internal right hip prosthesis, initial encounter (principal); R00.0 Tachycardia, unspecified; E11.9 Type 2 diabetes mellitus without complications; Z79.84 Long term (current) use of oral hypoglycemic drugs; W01.0XXA Fall on same level from slipping, tripping and stumbling without subsequent striking against object, initial encounter
CPT/HCPCS: 36415; 71045; 73501; 73502; 80053; 80306; 81000; 85025; 86141; 93005; 93041